=== PATIENT | male | born 1960 | race Caucasian/White ===

== ENCOUNTER → 2016-09-15 | Outpatient (CLI) | payer MEDICARE ==
[~2016-09-15] MED LIST: ALDA50TA2 PO; AMLO10TA2 PO; AMLO5TAB2 PO; AMLO5TAB96 PO; ASPI325T PO; B12-1CHW CHEW; BACL20TA PO; BUSP10 PO; BUSP10TA PO; CEFT500T3 PO; EPIN1INJ21 IV PUSH; EPIN1INJ21 SQ; FERR325T PO; FURO1TAB60 PO; FURO20TA PO; FURO40TA PO; HYDR-3516 PO; HYDR-3583 PO; HYDR10TA16 PO; IBUP-232 PO; INVA1INJ IV; ISOS1TAB PO; ISOS5TAB PO; LACT10SO PO; LACTCHW3 CHEW; LYRI200C PO; LYRI75CA PO; MAGICADU2 SWISH-SWAL; METF500 PO; NORC5TAB PO; PANT40TA3 PO; PENI500T PO; PREG300 PO; PROP10TA6 PO; PROP20TA3 PO; SOLU250I IV PUSH; SPIR100T PO; SPIR25TA PO; Spironolactone PO; TAMS5CAP PO; TUMS500C CHEW; XANA1TAB PO; XIFA550T4 PO
[2016-09-15 12:54] LABS: PROTHROMBIN TIME - PATIENT 11.6 SEC (9.8-11.6)
[2016-09-15 13:46] LABS: ALKALINE PHOSPHATASE 77 U/L (45-117); ALT (GPT) 59 U/L (12-78); ANION GAP 7 MEQ/L (5-15); AST (GOT) 74 U/L (15-37); BICARBONATE 23.6 MEQ/L (21.0-32.0); BLOOD UREA NITROGEN 17 MG/DL (7-18); CHLORIDE 106 MEQ/L (98-107); GLOMERULAR FILTRATION RATE 90 ML/MIN (>89); GLUCOSE,FASTING 103 MG/DL (74-99); LDL CHOLESTEROL 64 MG/DL (0-99); POTASSIUM 3.9 MEQ/L (3.5-5.1); SODIUM (NA) 137 MEQ/L (136-145); TOTAL BILIRUBIN ADULT 0.8 MG/DL (0.2-1.0)
[2016-09-15 16:31] LABS: HEMOGLOBIN A1a 1.5 %; HEMOGLOBIN A1b 1.7 %; HEMOGLOBIN Ao 84.4 %; HEMOGLOBIN LA1C 2.5 %; HEMOGLOBIN P3 3.7 %
[2016-09-15 18:01] LABS: HEMATOCRIT 22.9 % (39.0-51.0); MEAN CELL VOLUME 81.9 FL (80.0-100.0); MEAN CORPUSCULAR HEMOGLOBIN 25.4 PG (27.0-34.0); PLATELET COUNT 101 TH/MM3 (150-450); RED BLOOD COUNT 2.79 MIL/MM3 (4.50-5.90); RED CELL DISTRIBUTION WIDTH 18.1 % (11.6-17.2); REVIEW FLAG FINAL; WHITE BLOOD COUNT 3.1 TH/MM3 (4.0-11.0)
[2016-09-17 09:55] LABS: HCV RNA PCR LOGIU/ML 5.99 (())
== END ==
LOC: ELAB 11:00
PROVIDERS: ATTEND Internal Medicine
DX: N42.9 Disorder of prostate, unspecified (principal); E11.9 Type 2 diabetes mellitus without complications; E55.9 Vitamin D deficiency, unspecified; R53.83 Other fatigue; B19.20 Unspecified viral hepatitis C without hepatic coma; I10 Essential (primary) hypertension; D64.9 Anemia, unspecified; D52.9 Folate deficiency anemia, unspecified; N39.0 Urinary tract infection, site not specified; N30.90 Cystitis, unspecified without hematuria; E53.8 Deficiency of other specified B group vitamins; M05.79 Rheumatoid arthritis with rheumatoid factor of multiple sites without organ or systems involvement
CPT/HCPCS: 36415; 80053; 80061; 82306; 82607; 82746; 83036; 84153; 84443; 85027; 85610; 87522

== ENCOUNTER 2016-09-17 02:35 | Inpatient (IN) | payer MEDICARE ==
[2016-09-17] VITALS (19 sets, daily range): BP systolic 93–136; BP diastolic 56–76; PULSE 66–131; RESP 11–30; TEMP 97.8–99.8; O2SAT 87–99
[~2016-09-17] VITALS: Ht 177.8 cm; Wt 87.7 kg
[~2016-09-17 02:35] MED LIST changes: -ALDA50TA2 PO; -AMLO10TA2 PO; -AMLO5TAB2 PO; -B12-1CHW CHEW; -BUSP10TA PO; -CEFT500T3 PO; -EPIN1INJ21 IV PUSH; -EPIN1INJ21 SQ; -FERR325T PO; -FURO1TAB60 PO; -FURO20TA PO; -FURO40TA PO; -HYDR-3516 PO; -HYDR-3583 PO; -INVA1INJ IV; -ISOS1TAB PO; -ISOS5TAB PO; -LACT10SO PO; -LACTCHW3 CHEW; -LYRI75CA PO; -NORC5TAB PO; -PANT40TA3 PO; -PENI500T PO; -PREG300 PO; -PROP10TA6 PO; -PROP20TA3 PO; -SOLU250I IV PUSH; -SPIR100T PO; -SPIR25TA PO; -Spironolactone PO; -TAMS5CAP PO; -TUMS500C CHEW; -XIFA550T4 PO
--- NOTE | 2016-09-17 02:51 | PD ---
HPI Chief Complaint: Abdominal Pain Time Seen by Provider: 02:38 Travel History International Travel<30 days: No Contact w/Intl Traveler<30days: No Traveled to known affect area: No History of Present Illness HPI The patient is a 56-year-old male presents emergency department via EMS for abdominal pain and shortness of breath. The patient states he had an outpatient ultrasound performed at radiology [facility], at [place], 2 days ago. The patient received a call from his primary physician, Dr. Huerta, and was advised to go to the emergency department. The patient states he went to [facility] emergency department and was subsequently admitted. However , the patient states he signed out AGAINST MEDICAL ADVICE and went home to eat lunch. He returns for progressing symptoms including shortness of breath and abdominal pain. The patient states he does have a history of hepatitis C a remote alcohol use, but does not currently drink alcohol or smoke. The patient states his abdomen feels distended and swollen secondary to fluid on the abdomen. He also complains of mild shortness of breath, but denies any known history of COPD or CHF. Symptoms are moderate, no known alleviating or exacerbating factors. He denies any acute chest pain or cough. PFSH Past Medical History Hx Anticoagulant Therapy: Yes (ASA) Anxiety: No Depression: No Cancer: No Cardiovascular Problems: Yes (HTN) High Cholesterol: Yes Diabetes: Yes Diminished Hearing: No Endocrine: Yes Gastrointestinal Disorders: No Hepatitis: No Hiatal Hernia: No Hypertension: Yes Immune Disorder: No Neurologic: Yes (DIABETIC NEUROPATHY) Psychiatric: No Respiratory: No Immunizations Current: Yes Thyroid Disease: No Past Surgical History Abdominal Surgery: Yes (APPENDECTOMY) Appendectomy: Yes Body Medical Devices: PLATE IN RIGHT SHOULDER Pacemaker: No Tonsillectomy: Yes Other Surgery: Yes Social History Alcohol Use: Yes ("BEER OCCASIONALLY") Tobacco Use: Yes Substance Use: No Allergies-Medications (Allergen,Severity, Reaction): Coded Allergies: Neosporin (Verified Allergy, Mild, 09/17/16) Polysporin (Verified Allergy, Mild, RASH, 09/17/16) Reported Meds & Prescriptions Reported Meds & Active Scripts Active Reported Lyrica (Pregabalin) 300 Mg Cap 300 Mg PO TID Aspirin 325 Mg Tab 325 Mg PO DAILY Amlodipine (Amlodipine Besylate) 5 Mg Tab 5 Mg PO DAILY Buspirone (Buspirone HCl) 10 Mg Tab 10 Mg PO TID Baclofen 20 Mg Tab 20 Mg PO TID Penicillin V Potassium 500 Mg Tab 500 Mg PO Q6H Hydrocodone-Acetaminophen 10-325 mg Tab 1 Tab PO 5 TIMES A DAY PRN Review of Systems Except as stated in HPI: all other systems reviewed are Neg General / Constitutional: No: Fever Cardiovascular: No: Chest Pain or Discomfort Respiratory: Positive: Shortness of Breath, No: Cough Gastrointestinal: Positive: Abdominal Pain, Other (abdominal distention), No: Nausea, Vomiting, Diarrhea Musculoskeletal: Positive: Edema Hematologic/Lymphatic: Positive: Other (history of hepatitis C) Physical Exam Narrative GENERAL: Awake, alert, 56-year-old male who appears his stated age and is in mild respiratory distress. SKIN: Warm and dry. HEAD: Atraumatic. Normocephalic. EYES: Pupils equal and round. Mild pallor noted. ENT: No nasal bleeding or discharge. Slightly dry mucous membranes. NECK: Trachea midline. No JVD. CARDIOVASCULAR: Regular, tachycardic with a heart rate in the 130s.. RESPIRATORY: Mild tachypnea with decreased respirator breath sounds in the bases. Abdomen: Distended abdomen, minimal tenderness right upper quadrant. No rebound tenderness. MUSCULOSKELETAL: Bilateral lower extremity pitting edema. NEUROLOGICAL: Awake, slightly lethargic. Follows commands without difficulty. PSYCHIATRIC: Appropriate mood and affect; insight and judgment normal. Data Data Last Documented VS Vital Signs Date Time Temp Pulse Resp B/P Pulse Ox O2 Delivery O2 Flow Rate FiO2 09/17/16 05:00 90 15.00 100 09/17/16 04:42 121 22 136/71 CPAP 09/17/16 02:40 99.2 Orders Complete Blood Count With Diff (09/17/16 02:51) Comprehensive Metabolic Panel (09/17/16 02:51) B-Type Natriuretic Peptide (09/17/16 02:51) Act Partial Throm Time (Ptt) (09/17/16 02:51) Prothrombin Time / Inr (Pt) (09/17/16 02:51) Magnesium (Mg) (09/17/16 02:51) Ckmb (Isoenzyme) Profile (09/17/16 02:51) Troponin I (09/17/16 02:51) Urinalysis - C+S If Indicated (09/17/16 02:51) Blood Culture (09/17/16 02:51) Iv Access Insert/Monitor (09/17/16 02:51) Electrocardiogram (09/17/16 02:51) Ecg Monitoring (09/17/16 02:51) Oximetry (09/17/16 02:51) Oxygen Administration (09/17/16 02:51) Chest, Single Ap (09/17/16 02:51) Ct Pulmonary Angiogram (09/17/16 02:51) Sodium Chloride 0.9% Flush (Ns Flush) (09/17/16 03:00) Blood Gas Venous (Vbg) (09/17/16 02:51) Ct Abd/Pel W Iv Contrast(Rout) (09/17/16 ) Sodium Chlorid 0.9% 500 Ml Inj (Ns 500 M (09/17/16 03:15) CKMB (09/17/16 02:55) CKMB% (09/17/16 02:55) Cefepime Inj (Maxipime Inj) (09/17/16 04:00) Azithromycin Inj (Zithromax Inj) (09/17/16 04:00) Lactic Acid (09/17/16 04:35) Arterial Blood Gas (Abg) (09/18/16 06:00) Diet Npo (09/17/16 Breakfast) ^ Elevate Head Of Bed (09/17/16 04:49) Activity Bed Rest (09/17/16 04:49) Resp Bipap / Cpap Non Invas Vt (09/17/16 ) Albuterol-Ipratropium Neb (Duoneb Neb) (09/17/16 05:00) Albuterol-Ipratropium Neb (Duoneb Neb) (09/17/16 08:00) Chest, Single Ap (09/18/16 06:00) Resp Incentive Spirometry (09/17/16 04:49) Resp Acapella/Pep/Chest Vibra (09/17/16 04:49) Resp Ezpap/Pep Therapy (09/17/16 04:49) Cbc No Diff, Includes Plts (09/18/16 06:00) Cbc No Diff, Includes Plts (09/19/16 06:00) Cbc No Diff, Includes Plts (09/20/16 06:00) Cbc No Diff, Includes Plts (09/21/16 06:00) Cbc No Diff, Includes Plts (09/22/16 06:00) Cbc No Diff, Includes Plts (09/23/16 06:00) Cbc No Diff, Includes Plts (09/24/16 06:00) Basic Metabolic Panel (Bmp) (09/18/16 06:00) Basic Metabolic Panel (Bmp) (09/19/16 06:00) Basic Metabolic Panel (Bmp) (09/20/16 06:00) Basic Metabolic Panel (Bmp) (09/21/16 06:00) Basic Metabolic Panel (Bmp) (09/22/16 06:00) Basic Metabolic Panel (Bmp) (09/23/16 06:00) Basic Metabolic Panel (Bmp) (09/24/16 06:00) Magnesium Oxide (Mag-Ox) (09/17/16 05:00) Magnesium Sulfate Inj (Magnesium Sulfate (09/17/16 05:00) Magnesium Sulfate Inj (Magnesium Sulfate (09/17/16 05:00) Potassium Chlor 20 Meq Premix (Kcl 20 Me (09/17/16 05:00) Potassium Chlor 20 Meq Premix (Kcl 20 Me (09/17/16 05:00) Potassium Chlor 40 Meq Premix (Kcl 40 Me (09/17/16 05:00) Potassium Chlor 40 Meq Premix (Kcl 40 Me (09/17/16 05:00) Potassium Cl 40 Meq/30 Ml Liq (Kcl 40 Me (09/17/16 05:00) Potassium Cl 40 Meq/30 Ml Liq (Kcl 40 Me (09/17/16 05:00) Potassium Phosphate (K-Phos) (09/17/16 05:00) Potassium Phosphate (K-Phos) (09/17/16 05:00) Potassium Phosphate Inj (Potassium Phosp (09/17/16 05:00) Sodium Phosphate Inj (Sodium Phosphate I (09/17/16 05:00) ^ Medication Admin Instruction (09/17/16 04:49) ^ Notify Dr: Other (09/17/16 04:49) Inpatient Certification (09/17/16 04:49) Bedside Glucose RONALD.Q6H (09/17/16 04:49) ^ Blood Glucose Goal (Criteria (09/17/16 04:49) ^ Hypoglycemia 51 - 69 Mg/Dl (09/17/16 04:49) ^ Hypoglycemia 50 Mg/Dl Or < (09/17/16 04:49) ^ Notify Dr: Other (09/17/16 04:49) Dextrose 50% In Laya (Vial) Inj (D50w (Vi (09/17/16 05:00) Insulin Human Reg Supp Scale (Novolin R (09/17/16 06:00) Chest, Single Ap (09/18/16 06:00) Code Status (09/17/16 04:49) Vital Signs (Adult) RONALD.Q1H (09/17/16 04:49) Neuro Checks . ORDERED (09/17/16 04:49) Sodium Chloride 0.9% Flush (Ns Flush) (09/17/16 05:00) Sodium Chloride 0.9% Flush (Ns Flush) (09/17/16 09:00) Pantoprazole Inj (Protonix Inj) (09/17/16 09:00) Ondansetron Inj (Zofran Inj) (09/17/16 05:00) Docusate Sodium-Senna (Sarahi-Colace) (09/17/16 09:00) Scd Bilateral/Knee High RONALD.BID (09/17/16 04:49) ^ Initiate Protocol (09/17/16 04:49) ^ Instruction (09/17/16 04:49) [facility] Nursing Information (09/17/16 05:00) Chlorhexidine 2% Cloth (Chlorhexidine 2% (09/18/16 04:00) Chlorhexidine 2% Cloth (Chlorhexidine 2% (09/17/16 05:00) Mrsa Pcr Surveillance (09/17/16 04:49) Cefepime Inj (Maxipime Inj) (09/17/16 13:00) Azithromycin Inj (Zithromax Inj) (09/18/16 05:00) Consult Gastroenterology (09/17/16 ) Echo 2d Comp W/Dopp(Routine) (09/17/16 ) (Hub Use Only)Inp Phy Cons/Ref (09/17/16 ) Admit Order (Ed Use Only) (09/17/16 04:48) Labs Laboratory Tests Test 09/17/16 09/17/16 09/17/16 02:55 03:10 04:30 White Blood Count 7.6 TH/MM3 Red Blood Count 3.25 MIL/MM3 Hemoglobin 8.4 GM/DL Hematocrit 26.9 % Mean Corpuscular Volume 82.8 FL Mean Corpuscular Hemoglobin 26.0 PG Mean Corpuscular Hemoglobin 31.4 % Concent Red Cell Distribution Width 17.8 % Platelet Count 176 TH/MM3 Mean Platelet Volume 9.4 FL Neutrophils (%) (Auto) 71.1 % Lymphocytes (%) (Auto) 17.3 % Monocytes (%) (Auto) 9.6 % Eosinophils (%) (Auto) 1.1 % Basophils (%) (Auto) 0.9 % Neutrophils # (Auto) 5.4 TH/MM3 Lymphocytes # (Auto) 1.3 TH/MM3 Monocytes # (Auto) 0.7 TH/MM3 Eosinophils # (Auto) 0.1 TH/MM3 Basophils # (Auto) 0.1 TH/MM3 CBC Comment DIFF FINAL Differential Comment Prothrombin Time 11.8 SEC Prothromb Time International 1.1 RATIO Ratio Activated Partial 22.2 SEC Thromboplast Time Sodium Level 139 MEQ/L Potassium Level 4.0 MEQ/L Chloride Level 104 MEQ/L Carbon Dioxide Level 23.1 MEQ/L Anion Gap 12 MEQ/L Blood Urea Nitrogen 17 MG/DL Creatinine 1.10 MG/DL Estimat Glomerular Filtration 69 ML/MIN Rate Random Glucose 165 MG/DL Calcium Level 7.9 MG/DL Magnesium Level 1.7 MG/DL Total Bilirubin 0.8 MG/DL Aspartate Amino Transf 62 U/L (AST/SGOT) Alanine Aminotransferase 51 U/L (ALT/SGPT) Alkaline Phosphatase 78 U/L Total Creatine Kinase 147 U/L Creatine Kinase MB 4.1 NG/ML Troponin I 0.05 NG/ML B-Type Natriuretic Peptide 336 PG/ML Total Protein 6.5 GM/DL Albumin 2.7 GM/DL Blood Gas Puncture Site IV LINE Blood Gas Patient Temperature 98.6 Venous Blood pH 7.28 Venous Blood Partial Pressure 47 mmHg CO2 Venous Blood Partial Pressure 31 mmHg O2 Venous Blood HCO3 21 mmol/L Venous Blood Oxygen Saturation 50 % Venous Blood Oxygen Content 6.0 Vol % Venous Blood Base Excess -4.4 mmol/L Oxygen Delivery Device NRB Blood Gas Liter Flow 15 L/M Blood Gas Inspired Oxygen 100 % Lactic Acid Level 4.6 mmol/L MDM Medical Decision Making Medical Screen Exam Complete: Yes Emergency Medical Condition: Yes Medical Record Reviewed: Yes Interpretation(s) Ultrasound the abdomen reveals cirrhotic liver with thrombosis of the main portal vein. Large amount of abdominal ascites. Splenomegaly. Ultrasound was performed September 15, 2016 at radiology [facility] imaging. EKG reveals ST depressions in lead V4, V5, and V6. Laboratory Tests Test 09/17/16 09/17/16 02:55 03:10 White Blood Count 7.6 TH/MM3 Red Blood Count 3.25 MIL/MM3 Hemoglobin 8.4 GM/DL Hematocrit 26.9 % Mean Corpuscular Volume 82.8 FL Mean Corpuscular Hemoglobin 26.0 PG Mean Corpuscular Hemoglobin 31.4 % Concent Red Cell Distribution Width 17.8 % Platelet Count 176 TH/MM3 Mean Platelet Volume 9.4 FL Neutrophils (%) (Auto) 71.1 % Lymphocytes (%) (Auto) 17.3 % Monocytes (%) (Auto) 9.6 % Eosinophils (%) (Auto) 1.1 % Basophils (%) (Auto) 0.9 % Neutrophils # (Auto) 5.4 TH/MM3 Lymphocytes # (Auto) 1.3 TH/MM3 Monocytes # (Auto) 0.7 TH/MM3 Eosinophils # (Auto) 0.1 TH/MM3 Basophils # (Auto) 0.1 TH/MM3 CBC Comment DIFF FINAL Differential Comment Prothrombin Time 11.8 SEC Prothromb Time International 1.1 RATIO Ratio Activated Partial 22.2 SEC Thromboplast Time Sodium Level 139 MEQ/L Potassium Level 4.0 MEQ/L Chloride Level 104 MEQ/L Carbon Dioxide Level 23.1 MEQ/L Anion Gap 12 MEQ/L Blood Urea Nitrogen 17 MG/DL Creatinine 1.10 MG/DL Estimat Glomerular Filtration 69 ML/MIN Rate Random Glucose 165 MG/DL Calcium Level 7.9 MG/DL Magnesium Level 1.7 MG/DL Total Bilirubin 0.8 MG/DL Aspartate Amino Transf 62 U/L (AST/SGOT) Alanine Aminotransferase 51 U/L (ALT/SGPT) Alkaline Phosphatase 78 U/L Total Creatine Kinase 147 U/L Creatine Kinase MB 4.1 NG/ML Troponin I 0.05 NG/ML B-Type Natriuretic Peptide 336 PG/ML Total Protein 6.5 GM/DL Albumin 2.7 GM/DL Blood Gas Puncture Site IV LINE Blood Gas Patient Temperature 98.6 Venous Blood pH 7.28 Venous Blood Partial Pressure 47 mmHg CO2 Venous Blood Partial Pressure 31 mmHg O2 Venous Blood HCO3 21 mmol/L Venous Blood Oxygen Saturation 50 % Venous Blood Oxygen Content 6.0 Vol % Venous Blood Base Excess -4.4 mmol/L Oxygen Delivery Device NRB Blood Gas Liter Flow 15 L/M Blood Gas Inspired Oxygen 100 % CT pulmonary angiogram reveals no evidence of pulmonary embolism. Patchy bilateral airspace disease in moderate dependent posterior atelectasis or edema. Differential Diagnosis Differential diagnosis includes pulmonary embolism, congestive heart failure, pleural effusion, portal vein thrombosis, ascites, acute liver failure, acute renal failure. Narrative Course IV was established, labs are drawn and sent, and the patient was placed on cardiac telemetry monitoring and continuous pulse oximetry monitoring. The patient was hypoxic with an oxygen saturation in the 70s, it is placed on nasal cannula, however, only came up to 80%, therefore, was placed on a nonrebreather. VBG was ordered. I reviewed the patient's ultrasound he had performed an outpatient basis on the which revealed portal vein thrombosis. However, patient is currently tachycardic and hypoxic, therefore, CT pulmonary angiogram and CT the abdomen and pelvis were ordered. Blood culture and lactic acid were sent to lab. The patient's x-ray reveals a right lobe pneumonia, the patient's oxygen saturation was 84% on nonrebreather. Therefore, patient was placed on BiPAP. CT was negative for pulmonary embolism. I discussed the patient with the on-call center lead consultant, Dr. Stinson, who agrees with admission. The patient was placed on BiPAP, oxygen saturations improved to 100% at 70% oxygen. Patient [place] be [place] [facility] Patient most likely will benefit from therapeutic and diagnostic paracentesis to help alleviate his abdominal discomfort until out for proper expansion of the diaphragm and lungs. Physician Communication Physician Communication I discussed the patient with Dr. Stinson who agrees with admission. Diagnosis Primary Impression: Hypoxia Additional Impressions: Pneumonia Qualified Code: J18.9 - Pneumonia of both lungs due to infectious organism, unspecified part of lung Portal vein thrombosis Condition: Stable Lars Morales MD Sep 17, 2016 02:51
[2016-09-17] MEDS ORDERED: ASPI325T PO (02:58)
[2016-09-17] MEDS ORDERED: AMLO5TAB2 PO (02:58)
[2016-09-17] MEDS ORDERED: HYDR-3583 PO (02:58)
[2016-09-17] MEDS ORDERED: BUSP10TA PO (02:58)
[2016-09-17] MEDS ORDERED: PENI500T PO (02:58)
[2016-09-17] MEDS ORDERED: BACL20TA PO (02:58)
[2016-09-17] MEDS ORDERED: PREG300 PO (02:58)
[2016-09-17] MEDS ORDERED: SODIUM CHLORIDE 0.9% FLUSH 5 ML FLUSH IVF PRN (03:00)
[2016-09-17 03:10] LABS: AUTOMATED NEUTROPHIL # 5.4 TH/MM3 (1.8-7.7); BASOPHIL # 0.1 TH/MM3 (0-0.2); BASOPHIL % 0.9 % (0.0-2.0); EOSINOPHIL # 0.1 TH/MM3 (0-0.4); EOSINOPHIL % 1.1 % (0.0-4.0); HEMATOCRIT 26.9 % (39.0-51.0); HEMO FLAGS DIFF FINAL; LYMPH % 17.3 % (9.0-44.0); LYMPHOCYTE # 1.3 TH/MM3 (1.0-4.8); MEAN CELL VOLUME 82.8 FL (80.0-100.0); MEAN CORPUSCULAR HGB CONC 31.4 % (32.0-36.0); MONO % 9.6 % (0.0-8.0); NEUT % 71.1 % (16.0-70.0); PLATELET COUNT 176 TH/MM3 (150-450); RED BLOOD COUNT 3.25 MIL/MM3 (4.50-5.90); RED CELL DISTRIBUTION WIDTH 17.8 % (11.6-17.2); WHITE BLOOD COUNT 7.6 TH/MM3 (4.0-11.0)
[2016-09-17] MEDS ORDERED: SODIUM CHLORID 0.9% 500 ML INJ 500 ML IV ONE (03:15)
[2016-09-17 03:18] LABS: BLOOD GAS VENOUS BASE EXCESS -4.4 mmol/L (-2-2); BLOOD GAS VENOUS HCO3 21 mmol/L (22-26); BLOOD GAS VENOUS O2 HGB SAT 50 % (70-76); BLOOD GAS VENOUS PCO2 47 mmHg (44-48); BLOOD GAS VENOUS PO2 31 mmHg (35-40); BLOOD GAS VENOUS pH 7.28 (7.360-7.400); CRITICAL VALUE YES; OXYGEN DEVICE NRB; TEMP CORR TO 98.6
[2016-09-17 03:19] LABS: APTT (PATIENT) 22.2 SEC (24.3-30.1); INTERNATIONAL NORMALIZED RATIO 1.1 RATIO; PROTHROMBIN TIME - PATIENT 11.8 SEC (9.8-11.6)
[2016-09-17 03:19] LABS: DRAW SITE IV LINE; FIO2 100 %; LITER FLOW 15 L/M; STAT YES
--- NOTE | 2016-09-17 03:43 | RADRPT ---
EXAM DATE/TIME: 09/17/2016 03:10 [place] COMPARISON: CHEST SINGLE AP, June 17, 2010, 14:23. INDICATIONS : Shortness of breath. MEDICAL HISTORY : None. SURGICAL HISTORY : None. ENCOUNTER: Initial ACUITY: 1 day PAIN SCORE: 0/10 LOCATION: Bilateral chest FINDINGS: There is bilateral diffuse, primarily perihilar parenchymal opacity somewhat worse on the right than the left. Cardiomediastinal contours are satisfactory. There has been plate and screw fixation of a r ight clavicle fracture. CONCLUSION: Diffuse bilateral parenchymal opacities Raúl Cortez MD on September 17, 2016 at 3:40 Board Certified Radiologist. This report was verified electronically.
[2016-09-17 03:46] LABS: ALT (GPT) 51 U/L (12-78); ANION GAP 12 MEQ/L (5-15); AST (GOT) 62 U/L (15-37); BICARBONATE 23.1 MEQ/L (21.0-32.0); BLOOD UREA NITROGEN 17 MG/DL (7-18); CHLORIDE 104 MEQ/L (98-107); GLOMERULAR FILTRATION RATE 69 ML/MIN (>89); MAGNESIUM 1.7 MG/DL (1.5-2.5); SODIUM (NA) 139 MEQ/L (136-145)
[2016-09-17 03:50] LABS: ALKALINE PHOSPHATASE 78 U/L (45-117); CREATINE KINASE 147 U/L (39-308); TOTAL BILIRUBIN ADULT 0.8 MG/DL (0.2-1.0)
[2016-09-17] MEDS ORDERED: CEFEPIME INJ 2,000 MG in SODIUM CHLORIDE 0.9% INJ 100 ML IV ONE (04:00)
[2016-09-17] MEDS ORDERED: AZITHROMYCIN INJ 500 MG in SODIUM CHLOR 0.9% 250 ML INJ 250 ML IV ONE (04:00)
[2016-09-17 04:03] LABS: CKMB 4.1 NG/ML (0.5-3.6)
[2016-09-17] MEDS ORDERED: CHLORHEXIDINE GLUCONATE 2 % 1 PACK (2 CLOTHS) TOP PRN (05:00)
[2016-09-17] MEDS ORDERED: POTASSIUM PHOSPHATE MONOBASIC 500 MG TAB PO PRN (05:00)
[2016-09-17] MEDS ORDERED: MAGNESIUM OXIDE 400 MG TAB PO PRN (05:00)
[2016-09-17] MEDS ORDERED: POTASSIUM PHOSPHATE INJ 30 MMOL in SODIUM CHLOR 0.9% 250 ML INJ 250 ML IV PRN (05:00)
[2016-09-17] MEDS ORDERED: ONDANSETRON HCL 4 MG/2 ML VIAL IV PRN (05:00)
[2016-09-17] MEDS ORDERED: POTASSIUM CHLOR 20 MEQ PREMIX 100 ML IV PRN ×2 (05:00)
[2016-09-17] MEDS ORDERED: MISCELLANEOUS NURSING INFORMATION XX SCH (05:00)
[2016-09-17] MEDS ORDERED: SODIUM CHLORIDE 0.9% FLUSH 5 ML FLUSH IV FLUSH PRN (05:00)
[2016-09-17] MEDS ORDERED: SODIUM PHOSPHATE INJ 30 MMOL in SODIUM CHLOR 0.9% 250 ML INJ 240 ML IV PRN (05:00)
[2016-09-17] MEDS ORDERED: RESP: ALBUTEROL 2.5 MG/IPRATROPIUM 0.5 MG NEB (PRN) INH (05:00)
[2016-09-17] MEDS ORDERED: DEXTROSE 50% IN WATER 50 ML VIAL(D50) IV PUSH PRN (05:00)
[2016-09-17] MEDS ORDERED: POTASSIUM CL 40 MEQ/30 ML LIQ UDC PO/TUBE PRN ×2 (05:00)
[2016-09-17] MEDS ORDERED: MAGNESIUM SULFATE INJ 4 GM in SODIUM CHLORIDE 0.9% INJ 92 ML IV PRN (05:00)
[2016-09-17] MEDS ORDERED: MAGNESIUM SULFATE INJ 2 GM in SODIUM CHLORIDE 0.9% INJ 96 ML IV PRN (05:00)
[2016-09-17] MEDS ORDERED: POTASSIUM PHOSPHATE MONOBASIC 500 MG TAB PO/TUBE PRN (05:00)
[2016-09-17] MEDS ORDERED: POTASSIUM CHLOR 40 MEQ PREMIX 100 ML IV PRN ×2 (05:00)
--- NOTE | 2016-09-17 05:10 | HHI.HP ---
[facility] Service Critical Care Medicine Primary Care Physician Long Huerta, DO Admission Diagnosis Diagnosis: Chief Complaint: shortness of breath Travel History International Travel<30 Days: No Contact w/Intl Traveler <30 Da: No Traveled to Known Affected Are: No History of Present Illness This is a 56-year-old male who has a history of cirrhosis and is followed by Dr. Huerta who has been having a few weeks of chronic abdominal pain and was sent for outpatient abdominal ultrasound which reportedly demonstrated a new portal vein thrombosis. His physician called him and stated that he needed to go to the hospital to be evaluated. He initially went to the [facility] emergency department and was admitted, however he then signed out AMA and went home the lunch. After lunch he had progressive shortness of breath and abdominal pain but did not want to go back to [facility], so he came to [facility] for evaluation. The hypopharynx was noted to be severely hypoxic on room air with's SPO2 in the 70s. He was placed on BiPAP. He had some improvement with this. His labs are notable for a white blood cell count 7 , hemoglobin of 8.4, platelet count 176 creatinine of 1.1, BNP of 336, lactate of 4.6 with a normal serum bicarbonate of 23.1. Critical-care medicine was consulted to evaluate and manage his acute hypoxic Review of Systems ROS Limitations: Clinical Condition (dyspnea) Past Family Social History Allergies: Coded Allergies: Neosporin (Verified Allergy, Mild, 09/17/16) Polysporin (Verified Allergy, Mild, RASH, 09/17/16) Past Medical History A complete past medical history is unable to be obtained secondary to the patient's dyspnea. Per chart review: Hypertension Cirrhosis Hyperlipidemia Diabetes Diabetic neuropathy Past Surgical History Complete past surgical history is unobtainable due to the patient's dyspnea. Per chart review: Appendectomy Plates and right shoulder Tonsillectomy Reported Medications A complete home medication list is unobtainable from patient due to his dyspnea. Chart review: Lyrica (Pregabalin) 300 Mg Cap 300 Mg PO TID Aspirin 325 Mg Tab 325 Mg PO DAILY Amlodipine (Amlodipine Besylate) 5 Mg Tab 5 Mg PO DAILY Buspirone (Buspirone HCl) 10 Mg Tab 10 Mg PO TID Baclofen 20 Mg Tab 20 Mg PO TID Penicillin V Potassium 500 Mg Tab 500 Mg PO Q6H Hydrocodone-Acetaminophen 10-325 mg Tab 1 Tab PO 5 TIMES A DAY PRN Active Ordered Medications See MAR Family History Unable to obtain a complete family history due to the patient's dyspnea. Unlikely to be contributory to his acute illness Social History Unable to obtain a complete social history due to the patient's dyspnea. Chart review: Positive for tobacco. Positive for prior alcohol use. Physical Exam Vital Signs Vital Signs Date Time Temp Pulse Resp B/P Pulse Ox O2 Delivery O2 Flow Rate FiO2 09/17/16 04:42 121 22 136/71 99 CPAP 09/17/16 04:15 97 100 09/17/16 03:10 120 30 136/63 95 Non-Rebreather 09/17/16 02:50 92 Non-Rebreather 15 09/17/16 02:40 99.2 131 22 132/64 87 Physical Exam GENERAL: Middle-aged male, lying in bed, in moderate distress due to dyspnea HEENT: Pupils equal, round, reactive. Mucous membranes are moist. NECK: Trachea is midline. BiPAP in place. No JVD. CHEST: Tachypneic. Mildly labored. Equal chest rise. Clear to auscultation anteriorly. CARDIOVASCULAR: Normal rate, regular rhythm. No appreciable murmurs. ABDOMEN: Protuberant, soft, nontender, nondistended. Positive fluid wave. No guarding. MUSCULOSKELETAL: Distal pulses 2+. No peripheral edema. NEUROLOGICAL: RASS -1. Follows commands in all 4 extremities. Somnolent but arousable. Laboratory Laboratory Tests Test 09/17/16 09/17/16 02:55 03:10 White Blood Count 7.6 Red Blood Count 3.25 Hemoglobin 8.4 Hematocrit 26.9 Mean Corpuscular Volume 82.8 Mean Corpuscular Hemoglobin 26.0 Mean Corpuscular Hemoglobin 31.4 Concent Red Cell Distribution Width 17.8 Platelet Count 176 Mean Platelet Volume 9.4 Neutrophils (%) (Auto) 71.1 Lymphocytes (%) (Auto) 17.3 Monocytes (%) (Auto) 9.6 Eosinophils (%) (Auto) 1.1 Basophils (%) (Auto) 0.9 Neutrophils # (Auto) 5.4 Lymphocytes # (Auto) 1.3 Monocytes # (Auto) 0.7 Eosinophils # (Auto) 0.1 Basophils # (Auto) 0.1 CBC Comment DIFF FINAL Differential Comment Prothrombin Time 11.8 Prothromb Time International 1.1 Ratio Activated Partial 22.2 Thromboplast Time Sodium Level 139 Potassium Level 4.0 Chloride Level 104 Carbon Dioxide Level 23.1 Anion Gap 12 Blood Urea Nitrogen 17 Creatinine 1.10 Estimat Glomerular Filtration 69 Rate Random Glucose 165 Calcium Level 7.9 Magnesium Level 1.7 Total Bilirubin 0.8 Aspartate Amino Transf 62 (AST/SGOT) Alanine Aminotransferase 51 (ALT/SGPT) Alkaline Phosphatase 78 Total Creatine Kinase 147 Creatine Kinase MB 4.1 Troponin I 0.05 B-Type Natriuretic Peptide 336 Total Protein 6.5 Albumin 2.7 Blood Gas Puncture Site IV LINE Blood Gas Patient Temperature 98.6 Venous Blood pH 7.28 Venous Blood Partial Pressure 47 CO2 Venous Blood Partial Pressure 31 O2 Venous Blood HCO3 21 Venous Blood Oxygen Saturation 50 Venous Blood Oxygen Content 6.0 Venous Blood Base Excess -4.4 Oxygen Delivery Device NRB Blood Gas Liter Flow 15 Blood Gas Inspired Oxygen 100 Date/Time Procedure Status Source Growth 09/17/16 02:55 Aerobic Blood Culture Received Blood Peripheral Pending 09/17/16 02:55 Anaerobic Blood Culture Received Blood Peripheral Pending Result Diagram: 09/17/16 0255 09/17/16 0255 Assessment and Plan Assessment and Plan Assessment: This is a 56yM with history of etoh cirrhosis who was initially sent to the emergency department for concern of a newly diagnosed portal vein thrombosis but was found to be acutely hypoxic. Differential diagnosis for the hypoxia would be PE vs. community acquired pneumonia vs. CHF vs. hepatopulmonary syndrome. We will obtain CT pulmonary angiogram, 2d echo with bubble study, cultures, cover empirically with antibiotics. I think his lactic acidosis is a Type B from poor hepatic clearance and does not represent tissue hypoperfusion. From a hypoxia standpoint, we will continue BiPAP. We will consult gastroenterology. I've anticoagulated him for his portal vein thrombus. If he is at all transplant candidate, we need to expedite his transplant workup. For now he remains critically ill with multiple organ systems which are currently a threat to life. Active problems: Portal vein thrombosis Acute hypoxic respiratory failure Acute Intravascular volume overload Plan: Admit to the ICU Lovenox 1.5 mg/kg IV every 24 hours for therapeutic anticoagulation for his portal vein thrombus. Continue BiPAP Continue nothing by mouth for now GI consult Follow-up 2-D echocardiogram with delayed bubble study Lasix 40 mg IV 1 Continue cefepime and azithromycin Follow-up cultures. May need diagnostic peritoneal tap at some point. This patient remains critically ill with one or more organ systems which are or may become a threat to life. I have spent in excess of 48 minutes discontinuously in the care and management of this patient. This time is exclusive of procedures, and includes, but is not limited to, evaluation of the patient, review of the medical record, discussions with family, consultants, nursing staff, or respiratory therapy, and documentation in the medical record. Code Status Full Code Martin Stinson MD Sep 17, 2016 05:10
[2016-09-17] MEDS: METFORMIN HOLD POST IV CONTRAST XX SCH (05:14)
[2016-09-17] MEDS ORDERED: IOHEXOL 350 MG/ML 10 ML VIAL (for RAD DIAG) IV ONE (05:30)
[2016-09-17] MEDS ORDERED: FUROSEMIDE 40 MG/4 ML VIAL IV PUSH ONE (05:45)
[2016-09-17] MEDS: INSULIN NovoLIN REGULAR SUPPLEMENTAL SCALE SQ SCH ×4 (06:00→21:00)
[2016-09-17 06:05] LABS: BLOOD GAS BASE EXCESS -2.5 mmol/L (-2-2); BLOOD GAS CARBOXYHEMOGLOBIN 3.7 % (0-4); BLOOD GAS HCO3 22 mmol/L (22-26); BLOOD GAS METHEMOGLOBIN 2.2 % (0-2); BLOOD GAS O2 HGB SATURATION 90 % (90-100); BLOOD GAS OXYGEN CONTENT 9.8 Vol % (12.0-20.0); BLOOD GAS PCO2 40 mmHg (38-42); BLOOD GAS PO2 74 mmHG (61-120); BLOOD GAS TOTAL HGB 7.7 G/DL (12.0-16.0); TEMP CORR TO 98.6
--- NOTE | 2016-09-17 06:05 | RADRPT ---
EXAM DATE/TIME: 09/17/2016 05:06 [facility] COMPARISON: CHEST SINGLE AP, September 17, 2016, 3:10. INDICATIONS : Short of breath and abdominal pain. IV CONTRAST: 98 cc Omnipaque 350 (iohexol) IV ; Cumulative dose for multiple exams. RADIATION DOSE: 12.0 CTDIvol (mGy) MEDICAL HISTORY : Hypertension. Hypercholesterolemia. Hepatitis C.DIABETES SURGICAL HISTORY : Appendectomy. right clavicle surgery ENCOUNTER: Initial ACUITY: 1 day PAIN SCALE: 8/10 LOCATION: chest TECHNIQUE: Volumetric scanning of the chest was performed using a pulmonary embolism protocol MIP images were re constructed. Using automated exposure control and adjustment of the mA and/or kV according to patien t size, radiation dose was kept as low as reasonably achievable to obtain optimal diagnostic quality images. FINDINGS: PULMONARY ARTERIES: No filling defects are seen in the pulmonary arteries through the segmental level. LUNGS: Patchy bilateral airspace disease and moderate dependent posterior atelectasis or edema. PLEURAE: Minimal effusion bilaterally. MEDIASTINUM: There is good visualization of the great vessels of the middle mediastinum. No evidence of mediastin al or hilar adenopathy/mass. MUSCULOSKELETAL: Within normal limits for patient age. MISCELLANEOUS: Cirrhotic liver appearance with ascites in the upper abdomen. CONCLUSION: No evidence of pulmonary embolism Raúl Cortez MD on September 17, 2016 at 6:01 Board Certified Radiologist. This report was verified electronically.
[2016-09-17 06:06] LABS: CRITICAL VALUE NO
[2016-09-17 06:08] LABS: DRAW SITE LT RADIAL; FIO2 70 %; NUMBER OF ARTERIAL PUNCTURES 1; OXYGEN DEVICE BiPAP; STAT NO; ULNAR PULSE PRESENT
[2016-09-17] MEDS: ENOXAPARIN SODIUM 120 MG/0.8 ML SYRINGE SQ SCH (06:16)
--- NOTE | 2016-09-17 06:29 | RADRPT ---
EXAM DATE/TIME: 09/17/2016 05:06 [facility] COMPARISON: No previous studies available for comparison. INDICATIONS : Short of breath and abdominal pain. IV CONTRAST: 98 cc Omnipaque 350 (iohexol) IV ; Cumulative dose for multiple exams. ORAL CONTRAST: No oral contrast ingested. RADIATION DOSE: 16.23 CTDIvol (mGy) MEDICAL HISTORY : Hepatitis C. Hypertension. Hypercholesterolemia.diabetes SURGICAL HISTORY : Appendectomy. right clavicle surgery ENCOUNTER: Initial ACUITY: 1 day PAIN SCALE: 8/10 LOCATION: abdomen TECHNIQUE: Volumetric scanning of the abdomen and pelvis was performed. Using automated exposure control and ad justment of the mA and/or kV according to patient size, radiation dose was kept as low as reasonably achievable to obtain optimal diagnostic quality images. FINDINGS: LOWER LUNGS: Infiltrates in the lung bases. Small effusions. LIVER: Really cirrhotic liver appearance without evidence of biliary ductal dilatation. Cavernous transforma tion of the portal vein. No calcified gallstones. SPLEEN: Enlarged without focal mass. PANCREAS: Within normal limits. KIDNEYS: Normal in size and shape. There is no mass, stone or hydronephrosis. ADRENAL GLANDS: Within normal limits. VASCULAR: There is no aortic aneurysm. BOWEL/MESENTERY: Bowel structures are nondilated. Moderate ascites. ABDOMINAL WALL: Within normal limits. RETROPERITONEUM: There is no lymphadenopathy. BLADDER: No wall thickening or mass. REPRODUCTIVE: Within normal limits. INGUINAL: There is no lymphadenopathy or hernia. MUSCULOSKELETAL: Within normal limits for patient age. CONCLUSION: Markedly cirrhotic liver appearance. Cavernous transformation of the portal vein. Moderate ascites. Raúl Cortez MD on September 17, 2016 at 6:23 Board Certified Radiologist. This report was verified electronically.
[2016-09-17] MEDS: RESP: ALBUTEROL 2.5 MG/IPRATROPIUM 0.5 MG NEB (SCH) INH ×4 (07:13→23:13)
--- NOTE | 2016-09-17 09:08 | PD.CONS ---
HPI History of Present Illness This is a 56 year old male with past medical history of HTN, DM, heavy alcohol intake up till 8 months ago, cirrhosis who has been having chronic abdominal pain since July but progressively worsening in severity and moving in location associated with noticeable abdominal swelling and weight gain. States, he used to do about 50 sit ups daily and he used to have abdominal muscles. Patient started having pain first around the appendectomy scar, then the pain started to move to right upper abdomen and started noticing swelling. He initially followed up with Dr. Huerta for the abdominal pain and was sent for outpatient abdominal ultrasound which reportedly demonstrated a new portal vein thrombosis and patient was instructed to go the ED for further evaluation. Patient initially went to the [facility] emergency department and was admitted, however he then signed out AMA. After lunch same day, he had progressive shortness of breath and abdominal pain, so he came to [facility] for evaluation. On admission, he was severely hypoxic on room air with 's SPO2 in the 70s. Critical-care medicine was consulted and was placed on Bipap. Labs on admission revealed white blood cell count 7, hemoglobin of 8.4, platelet count 176, lactic acid of 4.6. Currently patient is on non rebreather. He was told in the past that he has a hint of cirrhosis, not sure what work up if any was done, he initially was following with Dr. Jimenes, but was seen in our office in November of 2015 and had work up for hep-c and that came back negative. He had a colonoscopy in (12/23/15) ----> some stools, other ash normal. CT showed Markedly cirrhotic liver appearance. Cavernous transformation of the portal vein. Moderate ascites. CTA of the chest no PE. He repots constipation in the past few days, weight gain of about 16 ibs in the past month. He denies nausea, vomiting, hematemesis, hematochezia or melena. (Sofia Pritchard) PFSH Past Medical History THN DM Cirrhosis Hep-c tx naive,, labs came back undetected Past Surgical History Appendectomy rigth clavicular surgery right hand 5th digit fusion tonsillectomy left 5 ribs fx (Sofia Pritchard) Coded Allergies: Neosporin (Verified Allergy, Mild, 09/17/16) Polysporin (Verified Allergy, Mild, RASH, 09/17/16) Medications Current Medications Medications (Trade) Dose Ordered Sig/Jez Route Start Time Stop Time Status Last Admin Magnesium Oxide 800 mg 800 mg UNSCH PRN PO 09/17/16 05:00 Magnesium Sulfate 4 gm/Sodium Chloride 100 ml @ 50 mls/hr UNSCH PRN IV 09/17/16 05:00 Magnesium Sulfate 2 gm/Sodium Chloride 100 ml @ 50 mls/hr UNSCH PRN IV 09/17/16 05:00 Potassium Chloride 100 ml @ 50 mls/hr Q2H PRN IV 09/17/16 05:00 Potassium Chloride 100 ml @ 50 mls/hr Q2H PRN IV 09/17/16 05:00 Potassium Chloride 100 ml @ 50 mls/hr Q2H PRN IV 09/17/16 05:00 (KCl 40 Meq Premix Inj) 100 ml @ 25 mls/hr UNSCH PRN IV 09/17/16 05:00 (KCl 40 Meq/30 ml Liq) 40 meq UNSCH PRN PO/TUBE 09/17/16 05:00 (KCl 40 Meq/30 ml Liq) 40 meq UNSCH PRN PO/TUBE 09/17/16 05:00 (K-Phos) 2,000 mg Q4H PRN PO 09/17/16 05:00 Potassium Phosphate 2000 mg 2,000 mg UNSCH PRN PO/TUBE 09/17/16 05:00 Potassium Phosphate 30 mmol/ Sodium Chloride 260 ml @ 42 mls/hr UNSCH PRN IV 09/17/16 05:00 (Sodium Phosphate Inj/NS 250 ml Inj) 250 ml @ 42 mls/hr UNSCH PRN IV 09/17/16 05:00 (D50w (Vial) Inj) 25 ml UNSCH PRN IV PUSH 09/17/16 05:00 (NovoLIN R SUPPLEMENTAL SCALE) 1 Q6HR SQ 09/17/16 06:00 (NS Flush) 2 ml UNSCH PRN IV FLUSH 09/17/16 05:00 (NS Flush) 2 ml BID IV FLUSH 09/17/16 09:00 (Protonix Inj) 40 mg DAILY IV 09/17/16 09:00 (Zofran Inj) 4 mg Q6H PRN IV 09/17/16 05:00 (Sarahi-Colace) 2 tab BID PO 09/17/16 09:00 Miscellaneous Information 1 Q361D XX 09/17/16 05:00 (Chlorhexidine 2% Cloth) 3 pack Taper DAILY@04 TOP 09/18/16 04:00 09/14/17 03:59 Chlorhexidine Gluconate 3 pack 3 pack UNSCH PRN TOP 09/17/16 05:00 Cefepime HCl 1000 mg/Sodium Chloride 100 ml @ 200 mls/hr Q8H IV 09/17/16 13:00 (Zithromax Inj/ NS 250 ml Inj) 250 ml @ 250 mls/hr Q24H IV 09/18/16 05:00 (Lovenox Inj) 110 mg Q24H SQ 09/17/16 06:00 09/17/16 06:16 Family History Father had CABG Social History used to drink heavily till 8 months ago No smoking No illicit drug use (Sofia Pritchard) Review of Systems Constitutional: DENIES: Fever, Chills, Dizziness Endocrine: DENIES: Polyuria Eyes: DENIES: Double Vision Ears, nose, mouth, throat: DENIES: Hoarseness Respiratory: COMPLAINS OF: Shortness of breath Cardiovascular: COMPLAINS OF: Lower Extremity Edema Gastrointestinal: COMPLAINS OF: Abdominal pain, Constipation, Swelling of Abdomen, DENIES: Black stools, Bloody stools, Diarrhea, Nausea, Vomiting, Difficulty Swallowing, Anorexia, Heartburn, Hematemesis Genitourinary: DENIES: Hematuria Musculoskeletal: DENIES: Neck pain Integumentary: DENIES: Jaundice Hematologic/lymphatic: DENIES: Bruising Immunologic/allergic: DENIES: Eczema Neurologic: DENIES: Abnormal gait Psychiatric: DENIES: Anxiety (Sofia Pritchard) GI Exam Vitals I&O Vital Signs Date Time Temp Pulse Resp B/P Pulse Ox O2 Delivery O2 Flow Rate FiO2 09/17/16 07:14 97 70 09/17/16 06:20 92 16 112/68 97 BiPAP 09/17/16 05:00 90 15.00 100 09/17/16 04:42 121 22 136/71 99 CPAP 09/17/16 04:15 97 100 09/17/16 03:10 120 30 136/63 95 Non-Rebreather 09/17/16 02:50 92 Non-Rebreather 15 09/17/16 02:40 99.2 131 22 132/64 87 Imaging Last Impressions Chest X-Ray 09/17/16250 Signed Impressions: Service Date/Time: August 03:10 - CONCLUSION: Diffuse bilateral parenchymal opacities Raúl Cortez MD CT Angiography 09/17/16250 Signed Impressions: Service Date/Time: August 05:06 - CONCLUSION: No evidence of pulmonary embolism Raúl Cortez MD Abdomen/Pelvis CT 09/17/16 0000 Signed Impressions: Service Date/Time: August 05:06 - CONCLUSION: Markedly cirrhotic liver appearance. Cavernous transformation of the portal vein. Moderate ascites. Raúl Cortez MD Laboratory Test 09/17/16 09/17/16 09/17/16 09/17/16 02:55 03:10 04:30 05:42 White Blood Count 7.6 TH/MM3 Red Blood Count 3.25 MIL/MM3 Hemoglobin 8.4 GM/DL Hematocrit 26.9 % Mean Corpuscular Volume 82.8 FL Mean Corpuscular Hemoglobin 26.0 PG Mean Corpuscular Hemoglobin 31.4 % Concent Red Cell Distribution Width 17.8 % Platelet Count 176 TH/MM3 Mean Platelet Volume 9.4 FL Neutrophils (%) (Auto) 71.1 % Lymphocytes (%) (Auto) 17.3 % Monocytes (%) (Auto) 9.6 % Eosinophils (%) (Auto) 1.1 % Basophils (%) (Auto) 0.9 % Neutrophils # (Auto) 5.4 TH/MM3 Lymphocytes # (Auto) 1.3 TH/MM3 Monocytes # (Auto) 0.7 TH/MM3 Eosinophils # (Auto) 0.1 TH/MM3 Basophils # (Auto) 0.1 TH/MM3 CBC Comment DIFF FINAL Differential Comment Prothrombin Time 11.8 SEC Prothromb Time International 1.1 RATIO Ratio Activated Partial 22.2 SEC Thromboplast Time Sodium Level 139 MEQ/L Potassium Level 4.0 MEQ/L Chloride Level 104 MEQ/L Carbon Dioxide Level 23.1 MEQ/L Anion Gap 12 MEQ/L Blood Urea Nitrogen 17 MG/DL Creatinine 1.10 MG/DL Estimat Glomerular Filtration 69 ML/MIN Rate Random Glucose 165 MG/DL Calcium Level 7.9 MG/DL Magnesium Level 1.7 MG/DL Total Bilirubin 0.8 MG/DL Aspartate Amino Transf 62 U/L (AST/SGOT) Alanine Aminotransferase 51 U/L (ALT/SGPT) Alkaline Phosphatase 78 U/L Total Creatine Kinase 147 U/L Creatine Kinase MB 4.1 NG/ML Troponin I 0.05 NG/ML B-Type Natriuretic Peptide 336 PG/ML Total Protein 6.5 GM/DL Albumin 2.7 GM/DL Blood Gas Puncture Site IV LINE LT RADIAL Blood Gas Patient Temperature 98.6 98.6 Venous Blood pH 7.28 Venous Blood Partial Pressure 47 mmHg CO2 Venous Blood Partial Pressure 31 mmHg O2 Venous Blood HCO3 21 mmol/L Venous Blood Oxygen Saturation 50 % Venous Blood Oxygen Content 6.0 Vol % Venous Blood Base Excess -4.4 mmol/L Oxygen Delivery Device NRB BiPAP Blood Gas Liter Flow 15 L/M Blood Gas Inspired Oxygen 100 % 70 % Lactic Acid Level 4.6 mmol/L Blood Gas HCO3 22 mmol/L Blood Gas Base Excess -2.5 mmol/L Blood Gas Oxygen Saturation 90 % Arterial Blood pH 7.36 Arterial Blood Partial 40 mmHg Pressure CO2 Arterial Blood Partial 74 mmHG Pressure O2 Arterial Blood Oxygen Content 9.8 Vol % Arterial Blood 3.7 % Carboxyhemoglobin Arterial Blood Methemoglobin 2.2 % Blood Gas Hemoglobin 7.7 G/DL Test 09/17/16 06:30 Lactic Acid Level 1.2 mmol/L Date/Time Procedure Status Source Growth 09/17/16 02:55 Aerobic Blood Culture Received Blood Peripheral Pending 09/17/16 02:55 Anaerobic Blood Culture Received Blood Peripheral Pending Physical Examination HEENT: normocephalic; atraumatic; no jaundice. NECK: Neck is supple, no JVD, no lymphadenopathy. CHEST: Chest is clear to auscultation and percussion. CARDIAC: Regular rate and rhythm with no murmur gallop or rubs. ABDOMEN: Soft,distended,diffused tenderness; bowel sounds are present in all four quadrants. Ascites EXTREMITIES:BLE edema, 2+ SKIN: Normal; no rash; no jaundice. FISHER TRAWL NET: No focal deficits; alert and oriented times three. (Sofia Pritchard) Assessment and Plan Plan - Cirrhosis- Patient not sure what work up was done in the past, hx of heavy alcohol intake, quit 8 months ago, presented to the ED for abd pain, swelling and shortness of breath Labs on admission revealed white blood cell count 7, hemoglobin of 8.4, platelet count 176, lactate of 4.6. Currently patient is on non rebreather. He was told in the past that he has a hint of cirrhosis, not sure what work up if any was done, he initially was following with Dr. Jimenes, but was seen in our office in November of 2015 and had work up for hep-c and that came back negative. He had a colonoscopy in (12/23/15) ----> some stools, other ash normal. CT showed Markedly cirrhotic liver appearance. Cavernous transformation of the portal vein. Moderate ascites. CTA of the chest no PE. He repots constipation in the past few days, weight gain of about 16 ibs in the past month. He denies nausea, vomiting, hematemesis, hematochezia or melena. - Anemia- no bleeding reported, hgb is 8.4 - Portal vein thrombosis, acute- CT as above, He denies nausea, vomiting, hematemesis, hematochezia or melena. Lovenox - Hep-c- our office records indicate negative viral load and PCR - Ascites- Weight gain of 16 ibs in the last month, abd swelling - Hypoxemia- CCM on the case, on a non rebreather currently - HTN, DM per attending Plan: - JEREMY - CHELY, ASMA, AMA, alpha antitrypsin deficiency, celiac panel, iron studies, ceruloplasmin to r/o other causes for the cirrhosis - AFP - ammonia - CBC, CMP in the am - Patient will need EGD once stable respiratory ash - Will need diagnostic paracentesis - Lasix 40 mg - Aldactone 100 mg - cont. PPI - Supportive care - Patient seen and examined by Dr. Maciel and myself and this note is written on his behalf. (Sofia Pritchard) Physician Comments Seen and examined with CERTIFIED PHARMACY TECHNICIAN, SOB main issue. H/O hep C treatmnet naive. Paracentesis, and egd once sob resolves. On lovenox for Portal vein thrombosis. Will follow. Thank you (Rhonda Maciel MD) Sofia Pritchard Sep 17, 2016 09:07 Rhonda Maciel MD Sep 17, 2016 17:56
[2016-09-17] MEDS: SODIUM CHLORIDE 0.9% FLUSH 5 ML FLUSH IV FLUSH SCH ×2 (09:31→21:00)
[2016-09-17] MEDS: PANTOPRAZOLE SODIUM 40 MG VIAL IV SCH (09:31)
[2016-09-17] MEDS: DOCUSATE SODIUM 50 MG/SENNA 8.6 MG TAB PO SCH ×2 (09:32→21:00)
[2016-09-17] MEDS: CEFEPIME INJ 1,000 MG in SODIUM CHLORIDE 0.9% INJ 100 ML IV SCH ×2 (11:24→21:30)
[2016-09-17] MEDS ORDERED: ALBUMIN HUMAN 25% 25 GM/100 ML BAGP IV ONE (11:51)
[2016-09-17] MEDS ORDERED: MORPHINE SULFATE 4 MG/ML INJ IV ONE (12:00)
--- NOTE | 2016-09-17 12:55 | PD.PROCEDR ---
Procedure Note Procedure Ultrasound-guided left paracentesis Indication: Large ascites A time-out was completed verifying correct patient, procedure, site, positioning , and special equipment if applicable. The patient's Left lower quadrant was prepped and draped in a sterile manner after the appropriate infiltration level was confirmed by ultrasound. 1% lidocaine was used anesthetize the surrounding skin. A 10-blade scalpel used to make the incision. The paracentesis Angio cath was then introduced without difficulty and needle was removed. Catheter was connected to Vacutainer bottle and 4700 ml of clear straw colored fluid was removed. Estimated Blood Loss: <1 ml. Fluid studies sent. The patient tolerated the procedure well and there were no immediate complications. Cory Olsen MD Sep 17, 2016 12:54
[2016-09-17 13:48] LABS: FERRITIN 7 NG/ML (26-388); TRANSFERRIN IRON PROFILE 356 MG/DL (200-360)
[2016-09-17 13:51] LABS: PERITONEAL HISTIOCYTES 46 %; PERITONEAL LYMPHS 31 %; PERITONEAL MESOTHELIAL 4 %; PERITONEAL MONOS 6 %; PERITONEAL POLYS(SEGS) 13 %; PERITONEAL WBC 367 /MM3 (0-10)
[2016-09-17] MEDS: MORPHINE SULFATE 4 MG/ML INJ IV PRN ×2 (16:18→21:29)
--- NOTE | 2016-09-17 17:49 | EC ---
Study Study Date:09/17/2016 STUDY CONCLUSIONS SUMMARY - Procedure narrative: Transthoracic echocardiography. Image quality was fair. Scanning was performed from the parasternal, apical, and subcostal acoustic windows. - Left ventricle: The cavity size was normal. Wall thickness was normal. Systolic function was low normal. The estimated ejection fraction was 50%. Questionable basal inferior akinesis and thinning. - Mitral valve: Mild regurgitation. - Atrial septum: There was a probablepatent foramen ovale(PFO) demonstrated by color Doppler though not definitively shown on saline contrast study. Direction of flow through the PFO may be right to left. - Tricuspid valve: Trace regurgitation. If LV function is below 40, please consider prescribing an ACEI or ARB or document rationale for non-use. PROCEDURE DATA STUDY STATUS: Elective. Procedure: Transthoracic echocardiography. Image quality was fair. Scanning was performed from the parasternal, apical, and subcostal acoustic windows. Study completion: The patient tolerated the procedure well. Transthoracic echocardiography. M-mode, complete 2D, complete spectral Doppler, and color Doppler. Height: Height: 70in. Weight: Weight: 164.7lb. Body mass index: BMI: 23.7kg/m^2. Body surface area: BSA: 1.92m^2. Patient status: Inpatient. CARDIAC ANATOMY LEFT VENTRICLE: The cavity size was normal. Wall thickness was normal. Systolic function was low normal. The estimated ejection fraction was 50%. Questionable basal inferior akinesis and thinning. AORTIC VALVE: Trileaflet; normal thickness leaflets. Doppler: Transvalvular velocity was within the normal range. There was no stenosis. No regurgitation. Valve area: 1.7cm^2(VTI). Indexed valve area: 0.89cm^2/m^2 (VTI). Valve area: 1.86cm^2 (Vmax). Indexed valve area: 0.97cm^2/m^2 (Vmax). Mean gradient: 3mm Hg (S). AORTA: Aortic root: The aortic root was normal in size. MITRAL VALVE: Structurally normal valve. Doppler: Transvalvular velocity was within the normal range. There was no evidence for stenosis. Mild regurgitation. Peak gradient: 5mm Hg (D). LEFT ATRIUM: The atrium was normal in size. ATRIAL SEPTUM: There was a probablepatent foramen ovale(PFO) demonstrated by color Doppler though not definitively shown on saline contrast study. Direction of flow through the PFO may be right to left. RIGHT VENTRICLE: The cavity size was normal. Wall thickness was normal. PULMONIC VALVE: Doppler: Transvalvular velocity was within the normal range. There was no evidence for stenosis. No regurgitation. TRICUSPID VALVE: Structurally normal valve. Doppler: Transvalvular velocity was within the normal range. Trace regurgitation. PULMONARY ARTERY: The main pulmonary artery was normal-sized. Systolic pressure was within the normal range. RIGHT ATRIUM: The atrium was normal in size. PERICARDIUM: There was no pericardial effusion. SYSTEMIC VEINS: Inferior vena cava: The vessel was normal in size. Patient weight: 164.7lb _Ejection fraction:_ 65-75% _Fractional shortening:_ 32% up to 5Kg 5-11.5Kg 11.6-22.9Kg 23-45Kg 45-57Kg Aortic Root 7-13 <17 13-22 17-27 17-27 LA diam 6-13 <23 24-38 33-47 37-40 RVID 10-17 7-15 7-15 7-18 8-17 LVIDd 12-22 <32 24-38 33-47 37-40 LVPW 2-4 3-6 5-7 6-8 7-8 IVS 2-4 3-6 5-7 6-8 7-8 BASIC MEASUREMENTS ADULT NORMAL Left ventricle LV internal dimension, ED, chordal 48.5 mm 43-52 level, PLAX LV internal dimension, ES, chordal 33.5 mm 23-38 level, PLAX Fractional shortening, chordal level, 31 % >29 PLAX LV posterior wall thickness, ED 9.92 mm IVS/LVPW ratio, ED 0.95 <1.3 Ventricular septum Septal thickness, ED 9.39 mm Aortic valve Leaflet separation 21 mm 15-26 Aorta Root diameter, ED 32 mm Left atrium Anterior-posterior dimension 46 mm Anterior-posterior dimension index *2.4 cm/m^2 <2.2 BASIC MEASUREMENTS ADULT NORMAL Aortic valve Leaflet separation 21 mm 15-26 DOPPLER MEASUREMENTS ADULT NORMAL Main pulmonary artery Pressure, S 30 mm Hg =30 Aortic valve Peak velocity, S 120 cm/s Mean velocity, S 80.8 cm/s VTI, S 23.3 cm Mean gradient, S 3 mm Hg Valve area, VTI 1.7 cm^2 Valve area index, VTI 0.89 cm^2/m^2 Valve area, Vmax 1.86 cm^2 Valve area index, Vmax 0.97 cm^2/m^2 Mitral valve Peak E-wave velocity 114 cm/s Peak A-wave velocity 41 cm/s Deceleration time 158 ms 150-230 Peak gradient, D 5 mm Hg Peak E/A ratio 2.8 Tricuspid valve Regurgitant peak velocity 271 cm/s Peak RV-RA gradient, S 29 mm Hg Maximal regurgitant velocity 271 cm/s Systemic veins Estimated CVP 5 mm Hg Right ventricle RV pressure, S *34 mm Hg <30 Pulmonic valve Peak velocity, S 97 cm/s LEGEND: Mean values are shown as u=mean value. Asterisk (*) zuniga values outside specified normal range. Amended Yunior Diaz [id number]
[2016-09-17] MEDS ORDERED: PREGABALIN 100 MG CAP PO SCH (20:07)
--- NOTE | 2016-09-17 20:59 | EKG ---
Date Performed: 09/17/2016 Time Performed: 03:08:17 PTAGE: 56 years EKG: SINUS TACHYCARDIA MARKED ST DEPRESSION, CONSIDER SUBENDOCARDIAL INJURY ABNORMAL ECG PREVIOUS TRACING : 07/14/2011 13.48 DOCTOR: Abhishek Grady Interpretating Date/Time 09/17/2016 20:56:33
[2016-09-17] MEDS: ACETAMINOPHEN/HYDROcodone 325 MG/10 MG TAB PO PRN (21:29)
[2016-09-17] MEDS: ALPRAZolam 1 MG TAB PO PRN (21:29)
[2016-09-17] MEDS ORDERED: PREGABALIN 100 MG CAP PO ONE (23:00)
[2016-09-18] VITALS (20 sets, daily range): BP systolic 103–145; BP diastolic 56–93; PULSE 80–114; RESP 10–26; TEMP 97.8–100.6; O2SAT 93–100
[2016-09-18] MEDS: MORPHINE SULFATE 4 MG/ML INJ IV PRN ×4 (01:37→20:14)
[2016-09-18] MEDS: CHLORHEXIDINE GLUCONATE 2 % 1 PACK (2 CLOTHS) TOP SCH (04:00)
[2016-09-18] MEDS: RESP: ALBUTEROL 2.5 MG/IPRATROPIUM 0.5 MG NEB (SCH) INH ×6 (04:00→23:49)
[2016-09-18 04:34] LABS: BASOPHIL % 0.6 % (0.0-2.0); EOSINOPHIL % 0.5 % (0.0-4.0); HEMATOCRIT 22.5 % (39.0-51.0); LYMPH % 16.3 % (9.0-44.0); LYMPHOCYTE # 0.9 TH/MM3 (1.0-4.8); MEAN CELL VOLUME 80.8 FL (80.0-100.0); MEAN CORPUSCULAR HEMOGLOBIN 25.7 PG (27.0-34.0); MEAN CORPUSCULAR HGB CONC 31.8 % (32.0-36.0); MONO % 7.6 % (0.0-8.0); PLATELET COUNT 81 TH/MM3 (150-450); RED BLOOD COUNT 2.78 MIL/MM3 (4.50-5.90); WHITE BLOOD COUNT 5.3 TH/MM3 (4.0-11.0)
[2016-09-18 04:39] LABS: HEMO FLAGS AUTO DIFF
[2016-09-18 04:45] LABS: APTT (PATIENT) 28.2 SEC (24.3-30.1); INTERNATIONAL NORMALIZED RATIO 1.2 RATIO; PROTHROMBIN TIME - PATIENT 12.8 SEC (9.8-11.6)
[2016-09-18] MEDS: ACETAMINOPHEN/HYDROcodone 325 MG/10 MG TAB PO PRN ×4 (04:48→23:13)
[2016-09-18] MEDS: CEFEPIME INJ 1,000 MG in SODIUM CHLORIDE 0.9% INJ 100 ML IV SCH ×3 (04:49→20:26)
[2016-09-18] MEDS: AZITHROMYCIN INJ 500 MG in SODIUM CHLOR 0.9% 250 ML INJ 250 ML IV SCH (04:49)
[2016-09-18 05:06] LABS: BICARBONATE 26.2 MEQ/L (21.0-32.0); INDIRECT BILIRUBIN 0.3 MG/DL (0.0-0.8); POTASSIUM 4.3 MEQ/L (3.5-5.1); TOTAL BILIRUBIN ADULT 0.5 MG/DL (0.2-1.0)
[2016-09-18 05:08] LABS: CALCIUM-PROTEIN CORRECTED 8.2 MG/DL (8.5-10.1)
[2016-09-18] MEDS: METFORMIN HOLD POST IV CONTRAST XX SCH (05:14)
[2016-09-18 05:41] LABS: BLOOD GAS BASE EXCESS -0.7 mmol/L (-2-2); BLOOD GAS CARBOXYHEMOGLOBIN 1.6 % (0-4); BLOOD GAS HCO3 24 mmol/L (22-26); BLOOD GAS METHEMOGLOBIN 0.9 % (0-2); BLOOD GAS O2 HGB SATURATION 90 % (90-100); BLOOD GAS OXYGEN CONTENT 9.4 Vol % (12.0-20.0); BLOOD GAS PCO2 39 mmHg (38-42); BLOOD GAS PO2 64 mmHg (61-120); BLOOD GAS TOTAL HGB 7.3 G/DL (12.0-16.0); TEMP CORR TO 98.6
[2016-09-18 05:42] LABS: CRITICAL VALUE YES; DRAW SITE RT RADIAL; LITER FLOW 12 L/M; NUMBER OF ARTERIAL PUNCTURES 1; OXYGEN DEVICE PARTIAL REBREATHER; STAT NO; ULNAR PULSE PRESENT
--- NOTE | 2016-09-18 05:59 | RADRPT ---
EXAM DATE/TIME: 09/18/2016 04:35 [facility] COMPARISON: CHEST SINGLE AP, September 17, 2016, 3:10. INDICATIONS : Please evaluate after respiratory failure. MEDICAL HISTORY : Hypertension. Hypercholesterolemia. Diabetes mellitus type II. Hepatitis C SURGICAL HISTORY : Appendectomy. Riht clavicle ENCOUNTER: Subsequent ACUITY: 2 days PAIN SCORE: Non-responsive. LOCATION: Bilateral chest FINDINGS: There is worsening perivascular process most likely worsening pulmonary edema. Pneumonia is difficult to exclude particularly in the left lung base. CONCLUSION: Worsening pulmonary edema. Luda Contreras MD on September 18, 2016 at 5:56 Board Certified Radiologist. This report was verified electronically.
[2016-09-18] MEDS: ENOXAPARIN SODIUM 120 MG/0.8 ML SYRINGE SQ SCH (06:00)
[2016-09-18] MEDS: INSULIN NovoLIN REGULAR SUPPLEMENTAL SCALE SQ SCH ×5 (06:02→20:56)
[2016-09-18 08:03] LABS: PLATELET ESTIMATE SMEAR LOW (NORMAL); PLATELET MORPHOLOGY NORMAL (NORMAL); SCAN/DIFF AUTO DIFF CONFIRMED
[2016-09-18] MEDS: PANTOPRAZOLE SODIUM 40 MG VIAL IV SCH (08:43)
[2016-09-18] MEDS: SODIUM CHLORIDE 0.9% FLUSH 5 ML FLUSH IV FLUSH SCH ×2 (08:43→20:27)
[2016-09-18] MEDS: busPIRone HCL 10 MG TAB PO SCH ×3 (08:44→17:23)
[2016-09-18] MEDS: DOCUSATE SODIUM 50 MG/SENNA 8.6 MG TAB PO SCH ×2 (08:44→20:27)
[2016-09-18] MEDS: PREGABALIN 100 MG CAP PO SCH ×3 (08:44→17:23)
[2016-09-18] MEDS: SPIRONOLACTONE 100 MG TAB PO SCH (08:44)
[2016-09-18] MEDS: BACLOFEN 20 MG TAB PO SCH ×3 (08:44→17:23)
[2016-09-18] MEDS: amLODIPine BESYLATE 5 MG TAB PO SCH (08:46)
[2016-09-18] MEDS ORDERED: ASPIRIN 325 MG TAB PO SCH (09:00)
[2016-09-18] MEDS ORDERED: PREGABALIN 100 MG CAP PO SCH (09:00)
[2016-09-18] MEDS ORDERED: FUROSEMIDE 40 MG/4 ML VIAL IV PUSH SCH ×2 (09:00→18:00)
[2016-09-18] MEDS ORDERED: FUROSEMIDE 40 MG/4 ML VIAL IV PUSH ONE (12:15)
--- NOTE | 2016-09-18 12:35 | HHI.CCPN ---
Subjective Remarks/Hospital Course This is a 56-year-old male who has a history of cirrhosis and is followed by Dr. Huerta who has been having a few weeks of chronic abdominal pain and was sent for outpatient abdominal ultrasound which reportedly demonstrated a new portal vein thrombosis. His physician called him and stated that he needed to go to the hospital to be evaluated. He initially went to the [facility] emergency department and was admitted, however he then signed out AMA and went home. After lunch he had progressive shortness of breath and abdominal pain but did not want to go back to [facility], so he came to [facility] for evaluation. He was noted to be severely hypoxic on room air with's SPO2 in the 70s. He was placed on BiPAP. He had some improvement with this. His labs are notable for a white blood cell count 7, hemoglobin of 8.4, platelet count 176 creatinine of 1.1, BNP of 336, lactate of 4.6 with a normal serum bicarbonate of 23.1. Critical-care medicine was consulted to evaluate and manage his acute hypoxic SUBJ: 09/18/16: Remains hypoxemic on nonrebreather. Status post paracentesis with 4.7 L removed 09/18/16. 2-D echo done yesterday shows probable PFO with possible R to L shunt. Patient will need DAMARIS, but prior to that need EGD for clearance. Lovenox held due to acute thrombocytopenia-dropped from 176-81. Will consult hematology for assistance with anticoagulation Objective Vital Signs Date Time Temp Pulse Resp B/P Pulse Ox O2 Delivery O2 Flow Rate FiO2 09/18/16 10:00 94 09/18/16 09:44 16 09/18/16 09:22 93 Nasal Cannula 6.00 09/18/16 08:00 97.8 105/71 09/17/16 20:29 50 Intake and Output 09/17/16 09/17/16 09/18/16 08:00 16:00 00:00 Intake Total 126 ml 1098 ml Output Total 4850 ml 500 ml Balance -4724 ml 598 ml Result Diagram: 09/18/168 09/18/16 0408 Other Results Laboratory Tests Test 09/18/16 05:22 Blood Gas Puncture Site RT RADIAL Blood Gas Patient Temperature 98.6 Blood Gas HCO3 24 mmol/L (22-26) Blood Gas Base Excess -0.7 mmol/L (-2-2) Blood Gas Oxygen Saturation 90 % (90-100) Arterial Blood pH 7.40 (7.380-7.420) Arterial Blood Partial 39 mmHg (38-42) Pressure CO2 Arterial Blood Partial 64 mmHg Pressure O2 (61-120) Arterial Blood Oxygen Content 9.4 Vol % (12.0-20.0) Arterial Blood 1.6 % (0-4) Carboxyhemoglobin Arterial Blood Methemoglobin 0.9 % (0-2) Blood Gas Hemoglobin 7.3 G/DL (12.0-16.0) Oxygen Delivery Device PARTIAL REBREATHER Blood Gas Liter Flow 12 L/M Objective Remarks GENERAL: Middle-aged male, lying in bed, in mild to moderate distress due to dyspnea HEENT: Pupils equal, round, reactive. Mucous membranes are moist. NECK: Trachea is midline. NRB. No JVD. CHEST: Tachypneic. Mildly labored. Equal chest rise. Bilateral crackles and few rhonchi CARDIOVASCULAR: Normal rate, regular rhythm. No appreciable murmurs. ABDOMEN: Protuberant, soft, distended. Positive fluid wave. No guarding. s/p paracentesis with 4.7 L of fluid removed 09/17/16 MUSCULOSKELETAL: Distal pulses 2+. No peripheral edema. NEUROLOGICAL: RASS -1. Follows commands in all 4 extremities. No focal deficits Urinary Catheter: Yes Assessment to: Continue Vascular Central Line Catheter: Yes Assessment to: Continue A/P Assessment and Plan Assessment: This is a 56yM with history of etoh cirrhosis who was initially sent to the emergency department for concern of a newly diagnosed portal vein thrombosis but was found to be acutely hypoxic. Differential diagnosis for the hypoxia would be PE vs. community acquired pneumonia vs. CHF vs. hepatopulmonary syndrome. We will obtain CT pulmonary angiogram, 2d echo with bubble study, cultures, cover empirically with antibiotics. I think his lactic acidosis is a Type B from poor hepatic clearance and does not represent tissue hypoperfusion. From a hypoxia standpoint, we will continue BiPAP. We will consult gastroenterology. I've anticoagulated him for his portal vein thrombus. If he is at all transplant candidate, we need to expedite his transplant workup. For now he remains critically ill with multiple organ systems which are currently a threat to life. Active problems: Portal vein thrombosis Acute hypoxic respiratory failure Pulmonary edema Acute Intravascular volume overload PFO with R to L shunt Thrombocytopenia Liver cirrhosis Large ascites COPD Plan: Continue ICU Currently on Lovenox 1.5 mg/kg IV every 24 hours for therapeutic anticoagulation for his portal vein thrombus. Hold due to acute thrombocytopenia platelet dropped from 176-81 -Consult hematology for assistance with anticoagulation Continue BiPAP as needed. DuoNeb every 4 hours scheduled and when necessary --1999 ADA diet. IV Protonix --Patient will need EGD. Also get clearance from GI for DAMARIS --DAMARIS once more stable resp ash RE: PFO with R to L shunt. Consult Dr. Hernandez on Wednesday for evaluation for closure Status post paracentesis with 4.7 L removed 09/17/16. Continue IV Lasix and Aldactone Continue cefepime and azithromycin Follow-up cultures. This patient remains critically ill with one or more organ systems which are or may become a threat to life. I have spent in excess of 40 minutes discontinuously in the care and management of this patient. This time is exclusive of procedures, and includes, but is not limited to, evaluation of the patient, review of the medical record, discussions with family, consultants, nursing staff, or respiratory therapy, and documentation in the medical record. Cory Olsen MD Sep 18, 2016 12:34
--- NOTE | 2016-09-18 12:43 | HHI.GIFU ---
Subjective Remarks Patient still on a non rebreather, doing good over all s/p paracentesis with removal of 4700 ml, he currently has a bag on the left side of the abd in the site of drainage and with some clear straw out put. Denies bleeding, nausea or vomiting (Sofia Pritchard) Objective Vitals I&O Vital Signs Date Time Temp Pulse Resp B/P Pulse Ox O2 Delivery O2 Flow Rate FiO2 09/18/16 12:00 98.9 103 18 123/67 98 09/18/16 12:00 103 09/18/16 10:00 94 09/18/16 09:44 16 09/18/16 09:22 93 Nasal Cannula 6.00 09/18/16 08:00 80 09/18/16 08:00 97.8 80 10 105/71 97 09/18/16 07:00 97 Partial Non-Rebreather 15.00 09/18/16 06:00 96 09/18/16 04:00 100.6 80 12 110/56 98 09/18/16 04:00 80 09/18/16 02:00 88 09/18/16 00:00 99.1 94 21 122/58 94 09/18/16 00:00 94 09/17/16 22:40 94 Partial Rebreather 12.00 09/17/16 22:00 104 09/17/16 20:29 95 Venturi Mask 6.00 50 09/17/16 20:04 98 Partial Rebreather 12.00 09/17/16 20:00 99.8 84 18 116/62 98 09/17/16 20:00 84 09/17/16 20:00 Venturi Mask 50 09/17/16 18:00 94 09/17/16 17:13 97 Venturi Mask 6.00 50 09/17/16 16:23 18 09/17/16 16:00 98.0 94 11 120/59 98 09/17/16 16:00 94 09/17/16 14:00 68 I/O 09/17/16 09/17/16 09/17/16 09/18/16 09/18/16 09/18/16 07:00 15:00 23:00 07:00 15:00 23:00 Intake Total 126 ml 1098 ml 1118 ml Output Total 4850 ml 500 ml 400 ml Balance -4724 ml 598 ml 718 ml Intake Oral 900 ml 800 ml IV Total 126 ml 198 ml 318 ml Output Urine Total 1000 ml 425 ml 300 ml Drainage Total 3850 ml 75 ml 100 ml # Voids 2 # Bowel Movements 0 0 Laboratory Laboratory Tests Test 09/17/16 09/18/16 09/18/16 09/18/16 13:10 04:08 05:22 10:46 Iron Level 17 Total Iron Binding Capacity 498 Percent Iron Saturation 3.4 Ferritin 7 Ammonia 18 Lactate Dehydrogenase 233 Total Protein 6.5 5.6 Tumor Marker Alpha Fetoprotein 4.1 Anti-Nuclear Antibody Screen NEG White Blood Count 5.3 Red Blood Count 2.78 Hemoglobin 7.1 Hematocrit 22.5 Mean Corpuscular Volume 80.8 Mean Corpuscular Hemoglobin 25.7 Mean Corpuscular Hemoglobin 31.8 Concent Red Cell Distribution Width 18.0 Platelet Count 81 Mean Platelet Volume 9.4 Neutrophils (%) (Auto) 75.0 Lymphocytes (%) (Auto) 16.3 Monocytes (%) (Auto) 7.6 Eosinophils (%) (Auto) 0.5 Basophils (%) (Auto) 0.6 Neutrophils # (Auto) 4.0 Lymphocytes # (Auto) 0.9 Monocytes # (Auto) 0.4 Eosinophils # (Auto) 0.0 Basophils # (Auto) 0.0 CBC Comment AUTO DIFF Differential Comment AUTO DIFF CONFIRMED Platelet Estimate LOW Platelet Morphology Comment NORMAL Prothrombin Time 12.8 Prothromb Time International 1.2 Ratio Activated Partial 28.2 Thromboplast Time Sodium Level 137 Potassium Level 4.3 Chloride Level 105 Carbon Dioxide Level 26.2 Anion Gap 6 Blood Urea Nitrogen 17 Creatinine 0.94 Estimat Glomerular Filtration 83 Rate Random Glucose 153 Calcium Level 7.4 Protein Corrected Calcium 8.2 Total Bilirubin 0.5 Direct Bilirubin 0.2 Indirect Bilirubin 0.3 Aspartate Amino Transf 98 (AST/SGOT) Alanine Aminotransferase 41 (ALT/SGPT) Alkaline Phosphatase 59 Albumin 2.4 Blood Gas Puncture Site RT RADIAL Blood Gas Patient Temperature 98.6 Blood Gas HCO3 24 Blood Gas Base Excess -0.7 Blood Gas Oxygen Saturation 90 Arterial Blood pH 7.40 Arterial Blood Partial 39 Pressure CO2 Arterial Blood Partial 64 Pressure O2 Arterial Blood Oxygen Content 9.4 Arterial Blood 1.6 Carboxyhemoglobin Arterial Blood Methemoglobin 0.9 Blood Gas Hemoglobin 7.3 Oxygen Delivery Device PARTIAL REBREATHER Blood Gas Liter Flow 12 Blood Type A POSITIVE Blood Bank Comment Date/Time Procedure Status Source Growth 09/17/16 12:20 Gram Stain - Final Resulted Fluid Peritoneal Fluid 09/17/16 12:20 Body Fluid Culture Resulted Fluid Peritoneal Fluid Pending 09/17/16 02:55 Aerobic Blood Culture - Preliminary Resulted Blood Peripheral NO GROWTH IN 1 DAY 09/17/16 02:55 Anaerobic Blood Culture - Preliminary Resulted Blood Peripheral NO GROWTH IN 1 DAY Imaging Last Impressions Chest X-Ray 09/18/16 0600 Signed Impressions: Service Date/Time: Sunday, September 18, 2016 04:35 - CONCLUSION: Worsening pulmonary edema. Luda Contreras MD CT Angiography 09/17/16 0251 Signed Impressions: Service Date/Time: August 05:06 - CONCLUSION: No evidence of pulmonary embolism Raúl Cortez MD Abdomen/Pelvis CT 09/17/16 0000 Signed Impressions: Service Date/Time: August 05:06 - CONCLUSION: Markedly cirrhotic liver appearance. Cavernous transformation of the portal vein. Moderate ascites. Raúl Cortez MD Physical Exam HEENT: normocephalic; atraumatic; no jaundice. Throat is clear. NECK: Neck is supple, no JVD, no lymphadenopathy. CHEST: Chest is clear to auscultation and percussion. CARDIAC: Regular rate and rhythm with no murmur gallop or rubs. ABDOMEN: Soft, slightly distended, nontender; no hepatosplenomegaly; bowel sounds are present in all four quadrants. ascites, collection bag to the left abdominal EXTREMITIES: BLE SKIN: Normal; no rash; no jaundice. INLAYER SILVER: No focal deficits; alert and oriented times three. (Amawi,Khawla LIQUEFIER) Assessment and Plan Plan - Cirrhosis- hx of heavy alcohol intake, quit 8 months ago, presented to the ED for abd pain, swelling and shortness of breath S/P s/p paracentesis (09/17/16) with removal of 4700 ml, he currently has a bag on the left side of the abd in the site of drainage and with some clear straw out put. Denies bleeding, nausea or vomiting, cytology pending, peritoneal labs revealed WBC 367, cx pending, SAAG 1.7 which indicates portal hypertension as the likely cause MELD (Gabriel 5, UNOS 8), CHELY negative, AFP 4.1, iron 17, ferritin 7, iron % 3.4, rest of labs pending Labs on admission revealed white blood cell count 7, hemoglobin of 8.4, platelet count 176, lactate of 4.6. Currently patient is on non rebreather. He was told in the past that he has a hint of cirrhosis, not sure what work up if any was done, he initially was following with Dr. Jimenes, but was seen in our office in November of 2015 and had work up for hep-c and that came back negative. He had a colonoscopy in (12/23/15) ----> some stools, other ash normal. CT showed Markedly cirrhotic liver appearance. Cavernous transformation of the portal vein. Moderate ascites. CTA of the chest no PE. He repots constipation in the past few days, weight gain of about 16 ibs in the past month. He denies nausea, vomiting, hematemesis, hematochezia or melena. - Anemia- no bleeding reported, hgb is 8.4--->7.1 today - Portal vein thrombosis, acute- CT as above, He denies nausea, vomiting, hematemesis, hematochezia or melena. Lovenox - Hep-c- our office records indicate negative viral load and PCR - Ascites- s/p paracentesis (09/17/16)with removal of 4700 ml, he currently has a bag on the left side of the abd in the site of enter and with some clear straw out put. diuretics - Hypoxemia- CCM on the case, on a non rebreather currently - HTN, DM per attending Plan: - JEREMY - Await ASMA, AMA, alpha antitrypsin deficiency, celiac panel, ceruloplasmin to r/o other causes for the cirrhosis - Await cytology - Await peritoneal cx - CBC in the am - Patient will need EGD once stable respiratory ash - Will need diagnostic paracentesis - Cont. Lasix 40 mg - Cont. Aldactone 100 mg - cont. PPI - Supportive care - Patient seen and examined by Dr. Maciel and myself and this note is written on his behalf. (Sofia Pritchard) Physician Comments Seen and examined with KIMANI, sob better. Egd/colonoscopy next week if stable. ( Rhonda Maciel MD) Sofia Pritchard Sep 18, 2016 12:43 Rhonda Maciel MD Sep 18, 2016 17:09
[2016-09-18] MEDS ORDERED: HEPARIN SODIUM - IV 10,000 UNITS/10 ML VIAL IV PRN ×2 (19:45)
[2016-09-18] MEDS: FUROSEMIDE 40 MG/4 ML VIAL IV PUSH SCH (20:13)
[2016-09-18] MEDS: HEPARIN 25,000 UNITS-D5W 250 ML - PREMIX IV SCH (20:56)
[2016-09-18 21:24] LABS: APTT (PATIENT) 27.7 SEC (24.3-30.1); INTERNATIONAL NORMALIZED RATIO 1.1 RATIO; PROTHROMBIN TIME - PATIENT 12.4 SEC (9.8-11.6)
[2016-09-18 21:39] LABS: HEMATOCRIT 24.6 % (39.0-51.0); MEAN CELL VOLUME 80.5 FL (80.0-100.0); MEAN CORPUSCULAR HEMOGLOBIN 26.2 PG (27.0-34.0); MEAN CORPUSCULAR HGB CONC 32.6 % (32.0-36.0); PLATELET COUNT 82 TH/MM3 (150-450); RED BLOOD COUNT 3.06 MIL/MM3 (4.50-5.90); RED CELL DISTRIBUTION WIDTH 17.6 % (11.6-17.2); WHITE BLOOD COUNT 5.7 TH/MM3 (4.0-11.0)
[2016-09-18 21:47] LABS: REVIEW FLAG FINAL
[2016-09-19] VITALS (14 sets, daily range): BP systolic 104–137; BP diastolic 57–67; PULSE 66–116; RESP 10–21; TEMP 98–100.1; O2SAT 94–100
[2016-09-19] MEDS ORDERED: IOHEXOL 350 MG/ML 10 ML VIAL (for RAD DIAG) IV ONE (02:20)
[2016-09-19] MEDS: MORPHINE SULFATE 4 MG/ML INJ IV PRN ×4 (03:13→21:55)
[2016-09-19] MEDS: RESP: ALBUTEROL 2.5 MG/IPRATROPIUM 0.5 MG NEB (SCH) INH ×6 (03:36→23:50)
[2016-09-19] MEDS: CHLORHEXIDINE GLUCONATE 2 % 1 PACK (2 CLOTHS) TOP SCH (03:39)
[2016-09-19] MEDS: CEFEPIME INJ 1,000 MG in SODIUM CHLORIDE 0.9% INJ 100 ML IV SCH ×3 (04:02→20:34)
[2016-09-19] MEDS: AZITHROMYCIN INJ 500 MG in SODIUM CHLOR 0.9% 250 ML INJ 250 ML IV SCH (04:02)
--- NOTE | 2016-09-19 04:19 | RADRPT ---
EXAM DATE/TIME: 09/19/2016 02:31 [facility] COMPARISON: CT ABDOMEN & PELVIS W CONTRAST, September 17, 2016, 5:06. INDICATIONS : Abdominal pain; portal vein thrombosis on ultrasound. IV CONTRAST: 97 cc Omnipaque 350 (iohexol) IV RADIATION DOSE: CTDIvol (mGy) MEDICAL HISTORY : Hypertension. Diabetes mellitus type 2. Hepatitis C. SURGICAL HISTORY : Appendectomy. ENCOUNTER: Subsequent ACUITY: 1 day PAIN SCALE: 6/10 LOCATION: abdomen TECHNIQUE: Volumetric scanning was performed using a multi-row detector CT scanner. The data was post processed with a variety of visualization algorithms including full volume maximum intensity projection, multi -planar sliding thin slab reformation, curved planar reformation, and surface rendering techniques. Using automated exposure control and adjustment of the mA and/or kV according to patient size, radiat ion dose was kept as low as reasonably achievable to obtain optimal diagnostic quality images. FINDINGS: There is been a significant increase in size of bilateral pleural effusions when compared to prior ex amination; pleural effusions measure up to 5 cm in thickness. There is associated compressive atelec tasis in the lower lungs. The liver has a cirrhotic appearance. Ascites is similar to prior CT. Th e contrast timing is optimized for arterial phase CTA and there is no contrast in the venous structur es. ABDOMINAL AORTA: The lumen is smooth without significant narrowing or aneurismal dilation. The proximal celiac and sup erior mesenteric arteries are patent and normal in diameter. There is a prominent calcification at t he origin of the SMA, but this does not cause luminal narrowing. There are main and accessory renal a rteries bilaterally without gross abnormality. BIFURCATION: Normal. RIGHT PELVIS: The right common iliac, internal iliac and external iliac vessels are patent without luminal irregula rity. LEFT PELVIS: The left common iliac, internal iliac and external iliac vessels are patent and without luminal irreg ularity. CONCLUSION: 1. Atherosclerotic calcification at the origin of the SMA and of the distal common aorta without sign ificant luminal narrowing. 2. Significant increase in size of bilateral pleural effusions when compared to 09/17/16 Raad Pulido MD on September 19, 2016 at 4:08 Board Certified Radiologist. This report was verified electronically.
[2016-09-19 04:36] LABS: AUTOMATED NEUTROPHIL # 4.4 TH/MM3 (1.8-7.7); BASOPHIL % 0.4 % (0.0-2.0); EOSINOPHIL % 0.8 % (0.0-4.0); HEMATOCRIT 27.3 % (39.0-51.0); LYMPH % 15.3 % (9.0-44.0); LYMPHOCYTE # 0.9 TH/MM3 (1.0-4.8); MEAN CELL VOLUME 80.3 FL (80.0-100.0); MEAN CORPUSCULAR HEMOGLOBIN 25.8 PG (27.0-34.0); MEAN CORPUSCULAR HGB CONC 32.2 % (32.0-36.0); MONO % 9.6 % (0.0-8.0); NEUT % 73.9 % (16.0-70.0); PLATELET COUNT 81 TH/MM3 (150-450); RED CELL DISTRIBUTION WIDTH 17.1 % (11.6-17.2); WHITE BLOOD COUNT 5.9 TH/MM3 (4.0-11.0)
[2016-09-19 04:43] LABS: HEMO FLAGS DIFF FINAL
[2016-09-19 04:47] LABS: APTT (PATIENT) 48.5 SEC (24.3-30.1); INTERNATIONAL NORMALIZED RATIO 1.1 RATIO; PROTHROMBIN TIME - PATIENT 12.3 SEC (9.8-11.6)
[2016-09-19] MEDS: ACETAMINOPHEN/HYDROcodone 325 MG/10 MG TAB PO PRN ×4 (05:07→20:33)
[2016-09-19 05:29] LABS: MAGNESIUM 1.6 MG/DL (1.5-2.5); POTASSIUM 3.7 MEQ/L (3.5-5.1)
[2016-09-19 05:32] LABS: INDIRECT BILIRUBIN 0.7 MG/DL (0.0-0.8); TOTAL BILIRUBIN ADULT 1.2 MG/DL (0.2-1.0)
--- NOTE | 2016-09-19 06:17 | RADRPT ---
EXAM DATE/TIME: 09/19/2016 05:25 [facility] COMPARISON: CHEST SINGLE AP, September 18, 2016, 4:35. INDICATIONS : Evaluate after respiratory failure. MEDICAL HISTORY : Hypertension. Diabetes mellitus type II. Hepatitis C. SURGICAL HISTORY : Appendectomy. ENCOUNTER: Subsequent ACUITY: 4 - 6 days PAIN SCORE: 8/10 LOCATION: Bilateral chest FINDINGS: There are persistent airspace opacities in the infrahilar region bilaterally, but the size and densit y of the opacities has decreased when compared to yesterday's chest x-ray. The upper lungs are clear . The heart is normal size. Both hemidiaphragms are well delineated. CONCLUSION: Residual, but improved, airspace opacities bilateral lower lungs. Raad Pulido MD on September 19, 2016 at 6:15 Board Certified Radiologist. This report was verified electronically.
[2016-09-19] MEDS: INSULIN NovoLIN REGULAR SUPPLEMENTAL SCALE SQ SCH ×4 (07:00→21:00)
[2016-09-19] MEDS: IRON SUCROSE INJ 200 MG in SODIUM CHLORIDE 0.9% INJ 100 ML IV SCH (09:04)
[2016-09-19] MEDS: busPIRone HCL 10 MG TAB PO SCH ×3 (09:04→16:16)
[2016-09-19] MEDS: FUROSEMIDE 40 MG/4 ML VIAL IV PUSH SCH ×2 (09:04→20:33)
[2016-09-19] MEDS: DOCUSATE SODIUM 50 MG/SENNA 8.6 MG TAB PO SCH ×2 (09:04→20:32)
[2016-09-19] MEDS: SODIUM CHLORIDE 0.9% FLUSH 5 ML FLUSH IV FLUSH SCH ×2 (09:04→20:34)
[2016-09-19] MEDS: PANTOPRAZOLE SODIUM 40 MG VIAL IV SCH (09:04)
[2016-09-19] MEDS: SPIRONOLACTONE 100 MG TAB PO SCH (09:04)
[2016-09-19] MEDS: BACLOFEN 20 MG TAB PO SCH ×3 (09:05→16:16)
[2016-09-19] MEDS: amLODIPine BESYLATE 5 MG TAB PO SCH (09:05)
[2016-09-19] MEDS: PREGABALIN 100 MG CAP PO SCH ×3 (09:05→16:16)
[2016-09-19] MEDS: HEPARIN 25,000 UNITS-D5W 250 ML - PREMIX IV SCH (09:26)
--- NOTE | 2016-09-19 09:38 | PD.ONC.PN ---
Subjective Subjective Remarks no bleeding sob on movement no fevers/cough Heparin will be stopped d/w rn Objective Data Date Time Temp Pulse Resp B/P Pulse Ox O2 Delivery O2 Flow Rate FiO2 09/19/16 08:00 67 09/19/16 07:00 100 Partial Non-Rebreather 15.00 09/19/16 06:00 98 09/19/16 04:00 106 09/19/16 04:00 98.9 106 16 108/60 97 09/19/16 02:00 70 09/19/16 00:00 74 09/19/16 00:00 100.0 74 12 105/57 98 09/18/16 22:00 108 09/18/16 20:10 97 Partial Rebreather 12.00 09/18/16 20:00 99.6 92 23 113/63 97 09/18/16 20:00 92 09/18/16 19:00 97 Partial Non-Rebreather 15.00 09/18/16 18:23 15 09/18/16 18:00 90 09/18/16 16:30 99.4 82 14 106/57 100 09/18/16 16:00 99.4 92 26 111/60 96 09/18/16 16:00 92 09/18/16 16:00 99.4 92 26 111/60 96 09/18/16 15:30 99.3 104 16 125/89 97 09/18/16 15:12 20 09/18/16 15:00 99.3 84 14 106/56 100 09/18/16 14:45 99.2 94 16 108/69 100 09/18/16 14:30 99.1 114 16 103/59 95 09/18/16 14:15 99.1 106 17 99 09/18/16 14:00 107 09/18/16 14:00 98.9 107 24 145/93 100 09/18/16 12:00 98.9 103 18 123/67 98 09/18/16 12:00 103 09/18/16 10:00 94 Result Diagram: 09/19/16 0404 09/19/16 0404 Laboratory Results Laboratory Tests Test 09/18/16 09/18/16 09/18/16 09/18/16 10:46 12:10 12:39 20:18 Blood Type A POSITIVE A POSITIVE Antibody Screen NEGATIVE Blood Bank Comment Crossmatch Leukocyte-Reduced Red Blood Cells White Blood Count 5.7 TH/MM3 Red Blood Count 3.06 MIL/MM3 Hemoglobin 8.0 GM/DL Hematocrit 24.6 % Mean Corpuscular Volume 80.5 FL Mean Corpuscular Hemoglobin 26.2 PG Mean Corpuscular Hemoglobin 32.6 % Concent Red Cell Distribution Width 17.6 % Platelet Count 82 TH/MM3 Mean Platelet Volume 9.6 FL Prothrombin Time 12.4 SEC Prothromb Time International 1.1 RATIO Ratio Activated Partial 27.7 SEC Thromboplast Time Test 09/19/16 04:04 White Blood Count 5.9 TH/MM3 Red Blood Count 3.40 MIL/MM3 Hemoglobin 8.8 GM/DL Hematocrit 27.3 % Mean Corpuscular Volume 80.3 FL Mean Corpuscular Hemoglobin 25.8 PG Mean Corpuscular Hemoglobin 32.2 % Concent Red Cell Distribution Width 17.1 % Platelet Count 81 TH/MM3 Mean Platelet Volume 9.5 FL Neutrophils (%) (Auto) 73.9 % Lymphocytes (%) (Auto) 15.3 % Monocytes (%) (Auto) 9.6 % Eosinophils (%) (Auto) 0.8 % Basophils (%) (Auto) 0.4 % Neutrophils # (Auto) 4.4 TH/MM3 Lymphocytes # (Auto) 0.9 TH/MM3 Monocytes # (Auto) 0.6 TH/MM3 Eosinophils # (Auto) 0.0 TH/MM3 Basophils # (Auto) 0.0 TH/MM3 CBC Comment DIFF FINAL Differential Comment Prothrombin Time 12.3 SEC Prothromb Time International 1.1 RATIO Ratio Activated Partial 48.5 SEC Thromboplast Time Sodium Level 136 MEQ/L Potassium Level 3.7 MEQ/L Chloride Level 102 MEQ/L Carbon Dioxide Level 26.0 MEQ/L Anion Gap 8 MEQ/L Blood Urea Nitrogen 17 MG/DL Creatinine 0.79 MG/DL Estimat Glomerular Filtration 101 ML/MIN Rate Random Glucose 140 MG/DL Calcium Level 7.6 MG/DL Magnesium Level 1.6 MG/DL Total Bilirubin 1.2 MG/DL Direct Bilirubin 0.5 MG/DL Indirect Bilirubin 0.7 MG/DL Aspartate Amino Transf 65 U/L (AST/SGOT) Alanine Aminotransferase 38 U/L (ALT/SGPT) Alkaline Phosphatase 62 U/L Total Protein 6.2 GM/DL Albumin 2.5 GM/DL Culture Results Microbiology Date/Time Procedure Status Source Growth 09/17/16 02:50 Aerobic Blood Culture - Preliminary Resulted Blood Peripheral NO GROWTH IN 1 DAY 09/17/16 02:50 Anaerobic Blood Culture - Preliminary Resulted Blood Peripheral NO GROWTH IN 1 DAY 09/17/16 02:55 Aerobic Blood Culture - Preliminary Resulted Blood Peripheral NO GROWTH IN 1 DAY 09/17/16 02:55 Anaerobic Blood Culture - Preliminary Resulted Blood Peripheral NO GROWTH IN 1 DAY 09/17/16 12:20 Gram Stain - Final Resulted Fluid Peritoneal Fluid 09/17/16 12:20 Body Fluid Culture - Preliminary Resulted Fluid Peritoneal Fluid NO GROWTH IN 24 HOURS. Imaging Studies Last 24 hours Impressions Chest X-Ray 09/19/16 0600 Signed Impressions: Service Date/Time: Monday, September 19, 2016 05:25 - CONCLUSION: Residual, but improved, airspace opacities bilateral lower lungs. Raad Pulido MD Abdomen CTA 09/19/16 0000 Signed Impressions: Service Date/Time: Monday, September 19, 2016 02:31 - CONCLUSION: 1. Atherosclerotic calcification at the origin of the SMA and of the distal common aorta without significant luminal narrowing. 2. Significant increase in size of bilateral pleural effusions when compared to 09/17/16 Raad Pulido MD Administered Medications Medications (Trade) Dose Ordered Sig/Jez Route PRN Reason Start Time Stop Time Status Last Admin Dose Admin IV Flush (NS Flush) 2 ml BID IV FLUSH 09/17/16 09:00 09/19/16 09:04 Pantoprazole Sodium (Protonix Inj) 40 mg DAILY IV 09/17/16 09:00 09/19/16 09:04 Senna/Docusate Sodium 2 tab 2 tab BID PO 09/17/16 09:00 09/19/16 09:04 Cefepime HCl 1000 mg/Sodium Chloride 100 ml @ 200 mls/hr Q8H IV 09/17/16 13:00 09/19/16 04:02 Azithromycin/ Sodium Chloride (Zithromax Inj/ NS 250 ml Inj) 250 ml @ 250 mls/hr Q24H IV 09/18/16 05:00 09/19/16 04:02 Spironolactone (Aldactone) 100 mg DAILY PO 09/18/16 09:00 09/19/16 09:04 Morphine Sulfate (Morphine Inj) 2 mg Q4H PRN IV PAIN SCALE 1-10 09/17/16 11:15 09/19/16 03:13 Amlodipine Besylate (Norvasc) 5 mg DAILY PO 09/18/16 09:00 09/19/16 09:05 Baclofen (Lioresal) 20 mg TID PO 09/18/16 09:00 09/19/16 09:05 Buspirone HCl (Buspar) 10 mg TID PO 09/18/16 09:00 09/19/16 09:04 Pregabalin (Lyrica) 300 mg TID PO 09/18/16 09:00 09/19/16 09:05 Acetaminophen/ Hydrocodone Bitart ([place] 10-325 Mg) 1 tab Q4H PRN PO PAIN SCALE 4 TO 10 09/17/16 20:45 09/19/16 09:05 Furosemide 40 mg 40 mg Q12H IV PUSH 09/18/16 21:00 09/19/16 09:04 Heparin Sodium/ Dextrose 250 ml @ 0 mls/hr TITRATE IV 09/18/16 19:45 09/19/16 09:26 Iron Sucrose/ Sodium Chloride (Venofer Inj/NS Inj) 110 ml @ 110 mls/hr DAILY IV 09/19/16 09:00 09/21/16 09:59 09/19/16 09:04 Objective Remarks GENERAL: chronically ill appearing SKIN: Warm and dry. NECK: Supple, trachea midline. No JVD or lymphadenopathy. LYMPHATIC: No adenopathy. CARDIOVASCULAR: Regular rate and rhythm without murmurs. RESPIRATORY: Breath sounds equal bilaterally. No accessory muscle use. GASTROINTESTINAL: Abdomen distended, mild diffused tenderness EXTREMITIES: No cyanosis, or edema. Assessment/Plan Problem List: (1) Portal vein thrombosis Status: Acute (2) Hypoxia Status: Acute (3) Pneumonia Status: Acute Assessment 56-year-old male with a history of significant alcohol abuse, liver cirrhosis and liver disease who presents with abdominal pain. 1. Chronic abdominal pain with acute exacerbation. - CTA abdomen does not show any portal thrombosis - Stop heparin 3. Advanced stage liver disease with liver cirrhosis. 4. History of alcohol abuse. 5. Anemia which is borderline microcytic. - Iron deficient. start Iron infusions - Check stool hemoccult. GI is already following the patient. 6. Thrombocytopenia due to liver disease/cirrhosis/consumption - PLt 81 - does not appear to be HIT D/w rn. Problem Qualifiers (1) Pneumonia: Qualified Code: J18.9 - Pneumonia of both lungs due to infectious organism, unspecified part of lung Delfino Heredia MD Sep 19, 2016 09:38
--- NOTE | 2016-09-19 10:29 | HHI.CCPN ---
Subjective Remarks/Hospital Course This is a 56-year-old male who has a history of cirrhosis and is followed by Dr. Huerta who has been having a few weeks of chronic abdominal pain and was sent for outpatient abdominal ultrasound which reportedly demonstrated a new portal vein thrombosis. His physician called him and stated that he needed to go to the hospital to be evaluated. He initially went to the [facility] emergency department and was admitted, however he then signed out AMA and went home. After lunch he had progressive shortness of breath and abdominal pain but did not want to go back to [facility], so he came to [facility] for evaluation. He was noted to be severely hypoxic on room air with's SPO2 in the 70s. He was placed on BiPAP. He had some improvement with this. His labs are notable for a white blood cell count 7, hemoglobin of 8.4, platelet count 176 creatinine of 1.1, BNP of 336, lactate of 4.6 with a normal serum bicarbonate of 23.1. Critical-care medicine was consulted to evaluate and manage his acute hypoxic SUBJ: 09/18/16: Remains hypoxemic on nonrebreather. Status post paracentesis with 4.7 L removed 09/18/16. 2-D echo done yesterday shows probable PFO with possible R to L shunt. Patient will need DAMARIS, but prior to that need EGD for clearance. Lovenox held due to acute thrombocytopenia-dropped from 176-81. Will consult hematology for assistance with anticoagulation 09/19 Patient is awake and alert, on partial non rebreather with good sats. Afebrile. T:100.0 at midnight. Objective Vital Signs Date Time Temp Pulse Resp B/P Pulse Ox O2 Delivery O2 Flow Rate FiO2 09/19/16 08:00 98.0 66 10 107/60 100 09/19/16 07:00 Partial Non-Rebreather 15.00 09/17/16 20:29 50 Intake and Output 09/18/16 09/18/16 09/19/16 08:00 16:00 00:00 Intake Total 1118 ml 2222 ml 1525 ml Output Total 400 ml 2075 ml 1380 ml Balance 718 ml 147 ml 145 ml Result Diagram: 09/19/16 0404 09/19/16 0404 Other Results Laboratory Tests Test 09/18/16 09/18/16 09/18/16 09/18/16 10:46 12:10 12:39 20:18 Blood Type A POSITIVE A POSITIVE Antibody Screen NEGATIVE Blood Bank Comment Crossmatch Leukocyte-Reduced Red Blood Cells White Blood Count 5.7 TH/MM3 Red Blood Count 3.06 MIL/MM3 Hemoglobin 8.0 GM/DL Hematocrit 24.6 % Mean Corpuscular Volume 80.5 FL Mean Corpuscular Hemoglobin 26.2 PG Mean Corpuscular Hemoglobin 32.6 % Concent Red Cell Distribution Width 17.6 % Platelet Count 82 TH/MM3 Mean Platelet Volume 9.6 FL Prothrombin Time 12.4 SEC Prothromb Time International 1.1 RATIO Ratio Activated Partial 27.7 SEC Thromboplast Time Test 09/19/16 04:04 White Blood Count 5.9 TH/MM3 Red Blood Count 3.40 MIL/MM3 Hemoglobin 8.8 GM/DL Hematocrit 27.3 % Mean Corpuscular Volume 80.3 FL Mean Corpuscular Hemoglobin 25.8 PG Mean Corpuscular Hemoglobin 32.2 % Concent Red Cell Distribution Width 17.1 % Platelet Count 81 TH/MM3 Mean Platelet Volume 9.5 FL Neutrophils (%) (Auto) 73.9 % Lymphocytes (%) (Auto) 15.3 % Monocytes (%) (Auto) 9.6 % Eosinophils (%) (Auto) 0.8 % Basophils (%) (Auto) 0.4 % Neutrophils # (Auto) 4.4 TH/MM3 Lymphocytes # (Auto) 0.9 TH/MM3 Monocytes # (Auto) 0.6 TH/MM3 Eosinophils # (Auto) 0.0 TH/MM3 Basophils # (Auto) 0.0 TH/MM3 CBC Comment DIFF FINAL Differential Comment Prothrombin Time 12.3 SEC Prothromb Time International 1.1 RATIO Ratio Activated Partial 48.5 SEC Thromboplast Time Sodium Level 136 MEQ/L Potassium Level 3.7 MEQ/L Chloride Level 102 MEQ/L Carbon Dioxide Level 26.0 MEQ/L Anion Gap 8 MEQ/L Blood Urea Nitrogen 17 MG/DL Creatinine 0.79 MG/DL Estimat Glomerular Filtration 101 ML/MIN Rate Random Glucose 140 MG/DL Calcium Level 7.6 MG/DL Magnesium Level 1.6 MG/DL Total Bilirubin 1.2 MG/DL Direct Bilirubin 0.5 MG/DL Indirect Bilirubin 0.7 MG/DL Aspartate Amino Transf 65 U/L (AST/SGOT) Alanine Aminotransferase 38 U/L (ALT/SGPT) Alkaline Phosphatase 62 U/L Total Protein 6.2 GM/DL Albumin 2.5 GM/DL Imaging Last Impressions Chest X-Ray 09/19/16 0600 Signed Impressions: Service Date/Time: Monday, September 19, 2016 05:25 - CONCLUSION: Residual, but improved, airspace opacities bilateral lower lungs. Raad Pulido MD Abdomen CTA 09/19/16 0000 Signed Impressions: Service Date/Time: Monday, September 19, 2016 02:31 - CONCLUSION: 1. Atherosclerotic calcification at the origin of the SMA and of the distal common aorta without significant luminal narrowing. 2. Significant increase in size of bilateral pleural effusions when compared to 09/17/[address] Angiography 09/17/16 0251 Signed Impressions: Service Date/Time: August 05:06 - CONCLUSION: No evidence of pulmonary embolism Raúl Cortez MD Abdomen/Pelvis CT 09/17/16 0000 Signed Impressions: Service Date/Time: August 05:06 - CONCLUSION: Markedly cirrhotic liver appearance. Cavernous transformation of the portal vein. Moderate ascites. Raúl Cortez MD Objective Remarks GENERAL: Middle-aged male, lying in bed, in mild distress HEENT: Pupils equal, round, reactive. Mucous membranes are moist. NECK: Trachea is midline. NRB. No JVD. CHEST: Tachypneic. Mildly labored. Equal chest rise. Bilateral crackles and few rhonchi CARDIOVASCULAR: Normal rate, regular rhythm. No appreciable murmurs. ABDOMEN: Protuberant, soft, distended. Positive fluid wave. No guarding. s/p paracentesis with 4.7 L of fluid removed 09/17/16 MUSCULOSKELETAL: Distal pulses 2+. No peripheral edema. NEUROLOGICAL: RASS -1. Follows commands in all 4 extremities. No focal deficits Awake and alert A/P Assessment and Plan Active problems: Portal vein thrombosis Acute hypoxic respiratory failure Pulmonary edema Acute Intravascular volume overload PFO with R to L shunt Thrombocytopenia Liver cirrhosis Large ascites COPD Plan: Neuro: Awake and alert, avoid sedatives. On BuSpar and Lyrica, Pulm: Wean down oxygen as ignacio keep sat >92% Bronchodilators CV: -Monitor HR and BP keep MAP>65mmHg On Norvasc 5mg daily --DAMARIS once more stable resp ash Re: PFO with R to L shunt. Consult Dr. Hernandez on Wednesday for evaluation for closure : Monitor renal function, I/O's, electrolytes replacement per protocol. GI: On PO diet Status post paracentesis with 4.7 L removed 09/17/16. Continue IV Lasix 40mg Q12 and Aldactone 100mg daily Heme: Monitor CBC, Coags- on Heparin drip, heme is following Follow up on Hep PLT ab. ID: Continue with abx ( Cefepime, Zithromax)monitor for signs of infections ( Fever, WBC) 09/17 BC: NGTD 09/17 Fluid cx: NGTD Endo: On SSI ( medium) for glycemic control GI prophylaxis- on Protonix 40mg daily DVT prophylaxis- On Heparin drip Level 3 Rony Mckeon MD Sep 19, 2016 10:29
--- NOTE | 2016-09-19 10:34 | MB ---
cc: MAUREEN BRASHER DATE OF CONSULTATION: 09/18/2016 DATE OF : 1960. REASON FOR CONSULTATION The patient with findings of portal vein thrombosis based on an outpatient abdominal ultrasound. CHIEF COMPLAINT Abdominal pain. HISTORY OF PRESENT ILLNESS This is a 56-year-old male with a history of alcohol abuse, liver disease and liver cirrhosis who presented with worsening of his chronic abdominal pain. An outpatient abdominal ultrasound was completed which reportedly showed a new portal vein thrombosis. The patient was sent over to the [facility] Emergency Department but then he left AMA. He had progressive dyspnea and abdominal pain and he then presented to the [facility] Emergency Department. He was severely hypoxic with O2 saturations in the 70s. His hypoxia improved after he was placed on a BiPAP. He had a CT of the abdomen and pelvis on admission. This shows markedly cirrhotic liver with cavernous transformation of the portal vein, there was moderate ascites, no mesenteric thrombosis is reported. Additionally, he had a CT angiogram which showed no evidence of pulmonary embolism. A chest x-ray showed worsening pulmonary edema. I have been consulted to evaluate this patient with thrombocytopenia. The patient states that he has not had an alcoholic drink for several months. He does admit to drinking heavily in the past. He denies any abdominal pain. He has not had any bleeding. On admission his platelet count was 176,000 however it has declined to 82,000. He was receiving Lovenox on admission. REVIEW OF SYSTEMS A comprehensive 14-point review of systems was completed which is negative except as described in the HPI. PAST MEDICAL HISTORY 1. Hypertension. 2. Hyperlipidemia. 3. Diabetes. 4. Diabetic neuropathy. 5. Liver disease. 6. Liver cirrhosis. PAST SURGICAL HISTORY 1. Appendectomy. 2. Shoulder surgery. 3. Tonsillectomy. MEDICATIONS Medications were reviewed in the EMR. ALLERGIES HE IS ALLERGIC TO NEOSPORIN AND POLYSPORIN. FAMILY HISTORY Family history is significant for coronary artery disease. No history of blood disorders. SOCIAL HISTORY He was an alcoholic but states that he quit six months ago. He does not smoke. No history of illicit drug use. PHYSICAL EXAMINATION VITAL SIGNS: Blood pressure is 106/57, pulse is in the 80s, temperature is 99.4, respiratory rate is 14, O2 sats are 100% on BiPAP. GENERAL: A chronically ill-appearing male, pale, cachectic, protuberant abdomen. HEENT: Pupils are equal, round and reactive to light. EOMI. No oral thrush. No oral lesions. NECK: Neck is supple. No JVD. No bruits. No lymphadenopathy. CHEST: Clear to auscultation bilaterally. CARDIAC: S1, S2. Regular rate and rhythm. ABDOMEN: Abdomen is soft, distended, diffusely tender. Bowel sounds are present. EXTREMITIES: Extremities are without any edema, erythema or cyanosis. SKIN: Skin without any petechiae, lesion or bruises. NEUROLOGIC: No focal deficits. PSYCHIATRIC: Mood and affect is appropriate. LABORATORY DATA WBC is 5.7, hemoglobin is 8, MCV is 80, platelet count is 82. Serum chemistries show a sodium of 137, potassium 4.3, creatinine 0.94, calcium is 7.4, total bilirubin is 0.5, direct bilirubin is 0.3, AST is 98, ALT is 41, alk phos is 59, LDH is 233, total protein is 5.6, albumin is 2.4, AST is 4.1. IMAGING STUDIES CT angiogram and CT of the abdomen and pelvis was reviewed. ASSESSMENT AND PLAN This is a 56-year-old male with a history of significant alcohol abuse, liver cirrhosis and liver disease who presents with abdominal pain. 1. Chronic abdominal pain with acute exacerbation. He apparently had an ultrasound of the abdomen outpatient which found portal vein thrombosis. He had a CT abdomen and pelvis here at [place], did not reveal any portal thrombosis however he does have enlarged liver and liver cirrhosis. The patient was on anticoagulation with Lovenox on admission. Upon my exam the patient is complaining of significant abdominal pain. We need to obtain a CT angiogram of the abdomen to assess portal circulation. If he is found to have portal thrombosis, he will need to be continued on anticoagulation however long-term anticoagulation is somewhat questionable in this individual. I did discuss with him extensively that if he is placed on long-term anticoagulation he will need to abstain from drinking alcohol. Nevertheless, we will proceed with getting a CT angiogram of the abdomen, continue anticoagulation with heparin. 2. Thrombocytopenia. This does not appear to be heparin-induced thrombocytopenia. He has significant liver disease and this is secondary to liver disease and consumption, check a DIC panel. His panel was ordered by the primary team, that is pending. If it does come back positive, we will need a serotonin release assay for confirmation. We will continue to anticoagulate him for the time being; however, if his platelet count drops below 50,000 then we will stop anticoagulation. 3. Advanced stage liver disease with liver cirrhosis. 4. History of alcohol abuse. 5. Anemia which is borderline microcytic. Obtain anemia study. Check a stool hemoccult. GI is already following the patient. Thank you for allowing me to participate in the care of this patient. I will continue to follow this patient along. MD DARIN Lechuga/JUAN CARLOS /12:39 AM /9:38 AM
[2016-09-19 13:09] LABS: APTT (PATIENT) 80.1 SEC (24.3-30.1)
[2016-09-19 13:23] LABS: HEPARIN AB OD 0.284 O.D. (0.000-0.300); HEPARIN INDUCED PLATELET AB NEGATIVE (NEGATIVE)
--- NOTE | 2016-09-19 15:39 | HHI.GIFU ---
Subjective Remarks Resting in bed. No n/v. Significant ascites, but abdomen soft. Has drainage bag over paracentesis site and this is draining a moderate amount of ascitic fluid. (Yumiko Vale) Objective Vitals I&O Vital Signs Date Time Temp Pulse Resp B/P Pulse Ox O2 Delivery O2 Flow Rate FiO2 09/19/16 14:00 69 09/19/16 13:19 20 09/19/16 12:00 99.6 79 17 104/63 100 09/19/16 12:00 79 09/19/16 10:14 100 Nasal Cannula 4.00 09/19/16 10:00 90 09/19/16 08:00 98.0 66 10 107/60 100 09/19/16 08:00 67 09/19/16 07:00 100 Partial Non-Rebreather 15.00 09/19/16 06:00 98 09/19/16 04:00 106 09/19/16 04:00 98.9 106 16 108/60 97 09/19/16 02:00 70 09/19/16 00:00 74 09/19/16 00:00 100.0 74 12 105/57 98 09/18/16 22:00 108 09/18/16 20:10 97 Partial Rebreather 12.00 09/18/16 20:00 99.6 92 23 113/63 97 09/18/16 20:00 92 09/18/16 19:00 97 Partial Non-Rebreather 15.00 09/18/16 18:00 90 09/18/16 16:30 99.4 82 14 106/57 100 09/18/16 16:00 99.4 92 26 111/60 96 09/18/16 16:00 92 09/18/16 16:00 99.4 92 26 111/60 96 I/O 09/18/16 09/18/16 09/18/16 09/19/16 09/19/16 09/19/16 07:00 15:00 23:00 07:00 15:00 23:00 Intake Total 1118 ml 2222 ml 1525 ml 1246 ml 2673 ml Output Total 400 ml 2075 ml 1380 ml 2000 ml 1950 ml Balance 718 ml 147 ml 145 ml -754 ml 723 ml Intake Oral 800 ml 1875 ml 950 ml 1000 ml 2160 ml IV Total 318 ml 347 ml 575 ml 246 ml 513 ml Output Urine Total 300 ml 1950 ml 1300 ml 1850 ml 1825 ml Drainage Total 100 ml 125 ml 80 ml 150 ml 125 ml # Bowel Movements 0 0 0 Laboratory Laboratory Tests Test 09/18/16 09/19/16 09/19/16 20:18 04:04 12:23 White Blood Count 5.7 5.9 Red Blood Count 3.06 3.40 Hemoglobin 8.0 8.8 Hematocrit 24.6 27.3 Mean Corpuscular Volume 80.5 80.3 Mean Corpuscular Hemoglobin 26.2 25.8 Mean Corpuscular Hemoglobin 32.6 32.2 Concent Red Cell Distribution Width 17.6 17.1 Platelet Count 82 81 Mean Platelet Volume 9.6 9.5 Prothrombin Time 12.4 12.3 Prothromb Time International 1.1 1.1 Ratio Activated Partial 27.7 48.5 80.1 Thromboplast Time Neutrophils (%) (Auto) 73.9 Lymphocytes (%) (Auto) 15.3 Monocytes (%) (Auto) 9.6 Eosinophils (%) (Auto) 0.8 Basophils (%) (Auto) 0.4 Neutrophils # (Auto) 4.4 Lymphocytes # (Auto) 0.9 Monocytes # (Auto) 0.6 Eosinophils # (Auto) 0.0 Basophils # (Auto) 0.0 CBC Comment DIFF FINAL Differential Comment Sodium Level 136 Potassium Level 3.7 Chloride Level 102 Carbon Dioxide Level 26.0 Anion Gap 8 Blood Urea Nitrogen 17 Creatinine 0.79 Estimat Glomerular Filtration 101 Rate Random Glucose 140 Calcium Level 7.6 Magnesium Level 1.6 Total Bilirubin 1.2 Direct Bilirubin 0.5 Indirect Bilirubin 0.7 Aspartate Amino Transf 65 (AST/SGOT) Alanine Aminotransferase 38 (ALT/SGPT) Alkaline Phosphatase 62 Total Protein 6.2 Albumin 2.5 Date/Time Procedure Status Source Growth 09/17/16 12:20 Gram Stain - Final Resulted Fluid Peritoneal Fluid 09/17/16 12:20 Body Fluid Culture - Preliminary Resulted Fluid Peritoneal Fluid NO GROWTH IN 48 HOURS. 09/17/16 02:55 Aerobic Blood Culture - Preliminary Resulted Blood Peripheral NO GROWTH IN 2 DAYS 09/17/16 02:55 Anaerobic Blood Culture - Preliminary Resulted Blood Peripheral NO GROWTH IN 2 DAYS Imaging Last Impressions Chest X-Ray 09/19/16 0600 Signed Impressions: Service Date/Time: Monday, September 19, 2016 05:25 - CONCLUSION: Residual, but improved, airspace opacities bilateral lower lungs. Raad Pulido MD Abdomen CTA 09/19/16 0000 Signed Impressions: Service Date/Time: Monday, September 19, 2016 02:31 - CONCLUSION: 1. Atherosclerotic calcification at the origin of the SMA and of the distal common aorta without significant luminal narrowing. 2. Significant increase in size of bilateral pleural effusions when compared to 09/17/[address] Angiography 09/17/16 0251 Signed Impressions: Service Date/Time: August 05:06 - CONCLUSION: No evidence of pulmonary embolism Raúl Cortez MD Abdomen/Pelvis CT 09/17/16 0000 Signed Impressions: Service Date/Time: August 05:06 - CONCLUSION: Markedly cirrhotic liver appearance. Cavernous transformation of the portal vein. Moderate ascites. Raúl Cortez MD Physical Exam HEENT: Normocephalic; atraumatic; no jaundice. Throat is clear. NECK: Neck is supple, no JVD, no lymphadenopathy. CHEST: CTA. CARDIAC: RRR. ABDOMEN: Soft, moderately distended with ascites, but soft. Drainage bag to old paracentesis site draining ascitic fluid, nontender; hepatosplenomegaly; bowel sounds are present in all four quadrants EXTREMITIES: BLE SKIN: Normal; no rash; no jaundice. WOOD CUT ENGRAVER: No focal deficits; alert and oriented times three. (Yumiko Vale [facility]) Assessment and Plan Plan ASSESSMENT: - Cirrhosis- hx of heavy alcohol intake, quit 8 months ago, presented to the ED for abd pain, swelling and shortness of breath. MELD (Gabriel 5, UNOS 8), CHELY negative, AFP 4.1, iron 17, ferritin 7, iron % 3.4, ASMA negative, celiac negative, alpha 1 antitrypsin 178. Ceruloplasmin pending. He was told in the past that he has a hint of cirrhosis, not sure what work up if any was done, he initially was following with Dr. Jimenes, but was seen in our office in November of 2015 and had work up for hep-c and that came back negative. He had a colonoscopy in (12/23/15) ----> some stools, other ash normal. CT showed Markedly cirrhotic liver appearance. Cavernous transformation of the portal vein. Moderate ascites. CTA of the chest no PE. He repots constipation in the past few days, weight gain of about 16 ibs in the past month. He denies nausea, vomiting, hematemesis, hematochezia or melena. - Ascites. S/P s/p paracentesis (09/17/16) with removal of 4700 ml, he currently has a bag on the left side of the abd in the site of drainage and with some clear straw out put. Denies bleeding, nausea or vomiting, cytology pending, peritoneal labs revealed WBC 367, Cx negative, SAAG 1.7 which indicates portal hypertension as the likely cause. Draining some ascitic fluid at site of paracentesis. - Anemia- no bleeding reported, HH 8.8/27.3. - Portal vein thrombosis, acute- CT as above, He denies nausea, vomiting, hematemesis, hematochezia or melena. Lovenox stopped. - Hep-c- our office records indicate negative viral load and PCR - HTN, DM per attending Plan: - Plan for egd/colonoscopy on Wednesday - Obtain consents - Clear liquids - NPO after MN - Golytely prep Wednesday - Await cytology - Cont. Lasix/Aldactone - cont. PPI - Supportive care - Patient seen and examined by Dr. Maciel and myself and this note is written on his behalf. (Yumiko Vale) Physician Comments Seen and examined with ms. Akanksha HARMAN, egd/colonoscopy planned for wednesday. Bowel prep tomorrow. (Rhonda Maciel MD) Yumiko Vale Sep 19, 2016 15:39 Rhonda Maciel MD Sep 19, 2016 18:53
[2016-09-19] MEDS ORDERED: NOREPINEPHRINE 4 MG/4 ML AMP ONE (18:10)
[2016-09-19] MEDS: ALPRAZolam 1 MG TAB PO PRN (20:32)
[2016-09-20] VITALS (20 sets, daily range): BP systolic 112–141; BP diastolic 61–83; PULSE 67–103; RESP 18–21; TEMP 98.1–99.2; O2SAT 95–100
[2016-09-20] MEDS: ACETAMINOPHEN/HYDROcodone 325 MG/10 MG TAB PO PRN ×4 (00:25→17:30)
[2016-09-20] MEDS: AZITHROMYCIN INJ 500 MG in SODIUM CHLOR 0.9% 250 ML INJ 250 ML IV SCH ×2 (03:48→05:13)
[2016-09-20] MEDS: CHLORHEXIDINE GLUCONATE 2 % 1 PACK (2 CLOTHS) TOP SCH (03:48)
[2016-09-20] MEDS: RESP: ALBUTEROL 2.5 MG/IPRATROPIUM 0.5 MG NEB (SCH) INH ×6 (04:54→23:15)
[2016-09-20] MEDS: CEFEPIME INJ 1,000 MG in SODIUM CHLORIDE 0.9% INJ 100 ML IV SCH ×3 (05:00→20:28)
[2016-09-20] MEDS: MORPHINE SULFATE 4 MG/ML INJ IV PRN ×3 (05:16→20:27)
[2016-09-20 05:43] LABS: AUTOMATED NEUTROPHIL # 2.7 TH/MM3 (1.8-7.7); BASOPHIL % 0.9 % (0.0-2.0); EOSINOPHIL # 0.1 TH/MM3 (0-0.4); EOSINOPHIL % 2.6 % (0.0-4.0); HEMATOCRIT 28.2 % (39.0-51.0); LYMPH % 20.4 % (9.0-44.0); LYMPHOCYTE # 0.9 TH/MM3 (1.0-4.8); MEAN CELL VOLUME 81.1 FL (80.0-100.0); MEAN CORPUSCULAR HEMOGLOBIN 25.6 PG (27.0-34.0); MEAN CORPUSCULAR HGB CONC 31.6 % (32.0-36.0); MONO % 12.8 % (0.0-8.0); NEUT % 63.3 % (16.0-70.0); PLATELET COUNT 90 TH/MM3 (150-450); RED BLOOD COUNT 3.47 MIL/MM3 (4.50-5.90); RED CELL DISTRIBUTION WIDTH 17.7 % (11.6-17.2); WHITE BLOOD COUNT 4.2 TH/MM3 (4.0-11.0)
[2016-09-20 05:53] LABS: HEMO FLAGS AUTO DIFF
[2016-09-20 05:57] LABS: APTT (PATIENT) 30.8 SEC (24.3-30.1); INTERNATIONAL NORMALIZED RATIO 1.1 RATIO
[2016-09-20 06:24] LABS: ALKALINE PHOSPHATASE 60 U/L (45-117); ALT (GPT) 34 U/L (12-78); ANION GAP 9 MEQ/L (5-15); AST (GOT) 51 U/L (15-37); BLOOD UREA NITROGEN 14 MG/DL (7-18); CHLORIDE 101 MEQ/L (98-107); GLOMERULAR FILTRATION RATE 89 ML/MIN (>89); MAGNESIUM 1.7 MG/DL (1.5-2.5); POTASSIUM 3.7 MEQ/L (3.5-5.1); SODIUM (NA) 138 MEQ/L (136-145)
[2016-09-20] MEDS: INSULIN NovoLIN REGULAR SUPPLEMENTAL SCALE SQ SCH ×4 (06:36→20:29)
[2016-09-20 09:00] LABS: PLATELET ESTIMATE SMEAR LOW (NORMAL); PLATELET MORPHOLOGY NORMAL (NORMAL); SCAN/DIFF AUTO DIFF CONFIRMED; TARGET CELLS 1+ (NORMAL)
--- NOTE | 2016-09-20 09:28 | PD.ONC.PN ---
Subjective Subjective Remarks feels okay less dyspneic no bleeding. Objective Data Date Time Temp Pulse Resp B/P Pulse Ox O2 Delivery O2 Flow Rate FiO2 09/20/16 07:33 98 Nasal Cannula 3.00 09/20/16 06:00 70 09/20/16 05:00 71 09/20/16 04:00 99.2 67 20 112/63 96 09/20/16 04:00 67 09/20/16 03:00 74 09/20/16 02:00 85 09/20/16 00:00 95 09/20/16 00:00 99.1 95 21 140/63 95 09/19/16 22:00 116 09/19/16 21:04 95 Nasal Cannula 4.00 09/19/16 20:00 100.1 78 21 124/64 94 09/19/16 20:00 94 Nasal Cannula 4.00 09/19/16 20:00 78 09/19/16 18:00 81 09/19/16 16:00 83 09/19/16 16:00 98.5 83 21 137/67 96 09/19/16 14:00 69 09/19/16 13:19 20 09/19/16 12:00 99.6 79 17 104/63 100 09/19/16 12:00 79 09/19/16 10:35 14 09/19/16 10:14 100 Nasal Cannula 4.00 09/19/16 10:00 90 09/20/16 09/20/16 09/20/16 07:00 15:00 23:00 Intake Total 540 ml Output Total 500 ml Balance 40 ml Result Diagram: 09/20/1628 09/20/16527 Laboratory Results Laboratory Tests Test 09/19/16 09/20/16 12:23 05:28 Activated Partial 80.1 SEC 30.8 SEC Thromboplast Time White Blood Count 4.2 TH/MM3 Red Blood Count 3.47 MIL/MM3 Hemoglobin 8.9 GM/DL Hematocrit 28.2 % Mean Corpuscular Volume 81.1 FL Mean Corpuscular Hemoglobin 25.6 PG Mean Corpuscular Hemoglobin 31.6 % Concent Red Cell Distribution Width 17.7 % Platelet Count 90 TH/MM3 Mean Platelet Volume 9.4 FL Neutrophils (%) (Auto) 63.3 % Lymphocytes (%) (Auto) 20.4 % Monocytes (%) (Auto) 12.8 % Eosinophils (%) (Auto) 2.6 % Basophils (%) (Auto) 0.9 % Neutrophils # (Auto) 2.7 TH/MM3 Lymphocytes # (Auto) 0.9 TH/MM3 Monocytes # (Auto) 0.5 TH/MM3 Eosinophils # (Auto) 0.1 TH/MM3 Basophils # (Auto) 0.0 TH/MM3 CBC Comment AUTO DIFF Differential Comment AUTO DIFF CONFIRMED Platelet Estimate LOW Platelet Morphology Comment NORMAL Target Cells 1+ Prothrombin Time 12.0 SEC Prothromb Time International 1.1 RATIO Ratio Sodium Level 138 MEQ/L Potassium Level 3.7 MEQ/L Chloride Level 101 MEQ/L Carbon Dioxide Level 28.0 MEQ/L Anion Gap 9 MEQ/L Blood Urea Nitrogen 14 MG/DL Creatinine 0.88 MG/DL Estimat Glomerular Filtration 89 ML/MIN Rate Random Glucose 126 MG/DL Calcium Level 7.8 MG/DL Phosphorus Level 2.5 MG/DL Magnesium Level 1.7 MG/DL Total Bilirubin 1.0 MG/DL Aspartate Amino Transf 51 U/L (AST/SGOT) Alanine Aminotransferase 34 U/L (ALT/SGPT) Alkaline Phosphatase 60 U/L Total Protein 6.3 GM/DL Albumin 2.4 GM/DL Vitamin B12 Level 299 PG/ML Culture Results Microbiology Date/Time Procedure Status Source Growth 09/17/16 12:20 Gram Stain - Final Complete Fluid Peritoneal Fluid 09/17/16 12:20 Body Fluid Culture - Final Complete Fluid Peritoneal Fluid NO GROWTH IN 72 HRS.--AEROBICALLY OR ... Administered Medications Medications (Trade) Dose Ordered Sig/Jez Route PRN Reason Start Time Stop Time Status Last Admin Dose Admin IV Flush (NS Flush) 2 ml BID IV FLUSH 09/17/16 09:00 09/19/16 20:34 Pantoprazole Sodium (Protonix Inj) 40 mg DAILY IV 09/17/16 09:00 09/19/16 09:04 Senna/Docusate Sodium 2 tab 2 tab BID PO 09/17/16 09:00 09/19/16 20:32 Cefepime HCl 1000 mg/Sodium Chloride 100 ml @ 200 mls/hr Q8H IV 09/17/16 13:00 09/20/16 05:00 Azithromycin/ Sodium Chloride (Zithromax Inj/ NS 250 ml Inj) 250 ml @ 250 mls/hr Q24H IV 09/18/16 05:00 09/20/16 05:13 Spironolactone (Aldactone) 100 mg DAILY PO 09/18/16 09:00 09/19/16 09:04 Morphine Sulfate (Morphine Inj) 2 mg Q4H PRN IV PAIN SCALE 1-10 09/17/16 11:15 09/20/16 05:16 Amlodipine Besylate (Norvasc) 5 mg DAILY PO 09/18/16 09:00 09/19/16 09:05 Baclofen (Lioresal) 20 mg TID PO 09/18/16 09:00 09/19/16 16:16 Buspirone HCl (Buspar) 10 mg TID PO 09/18/16 09:00 09/19/16 16:16 Pregabalin (Lyrica) 300 mg TID PO 09/18/16 09:00 09/19/16 16:16 Alprazolam (Xanax) 1 mg HS PRN PO MILD ANXIETY 09/17/16 20:45 09/19/16 20:32 Acetaminophen/ Hydrocodone Bitart (Deford 10-325 Mg) 1 tab Q4H PRN PO PAIN SCALE 4 TO 10 09/17/16 20:45 09/20/16 05:17 Furosemide 40 mg 40 mg Q12H IV PUSH 09/18/16 21:00 09/19/16 20:33 Iron Sucrose/ Sodium Chloride (Venofer Inj/NS Inj) 110 ml @ 110 mls/hr DAILY IV 09/19/16 09:00 09/21/16 09:59 09/19/16 09:04 Objective Remarks GENERAL: nad SKIN: Warm and dry. NECK: Supple, trachea midline. No JVD or lymphadenopathy. LYMPHATIC: No adenopathy. CARDIOVASCULAR: Regular rate and rhythm without murmurs. RESPIRATORY: Breath sounds equal bilaterally. No accessory muscle use. GASTROINTESTINAL: Abdomen soft, non-tender, distended EXT; no e/e/c Assessment/Plan Problem List: (1) Portal vein thrombosis Status: Acute (2) Hypoxia Status: Acute (3) Pneumonia Status: Acute Assessment 56-year-old male with a history of significant alcohol abuse, liver cirrhosis and liver disease who presents with abdominal pain. 1. Chronic abdominal pain with acute exacerbation. - CTA abdomen does not show any portal thrombosis - Stop heparin 3. Advanced stage liver disease with liver cirrhosis. 4. History of alcohol abuse. 5. Anemia which is borderline microcytic. - Iron deficient. start Iron infusions - Check stool hemoccult. GI is already following the patient. 6. Thrombocytopenia due to liver disease/cirrhosis/consumption - PLt 81 - does not appear to be HIT D/w rn. Problem Qualifiers (1) Pneumonia: Qualified Code: J18.9 - Pneumonia of both lungs due to infectious organism, unspecified part of lung Delfino Heredia MD Sep 20, 2016 09:28
[2016-09-20] MEDS: DOCUSATE SODIUM 50 MG/SENNA 8.6 MG TAB PO SCH ×2 (09:36→20:28)
[2016-09-20] MEDS: busPIRone HCL 10 MG TAB PO SCH ×3 (09:36→17:30)
[2016-09-20] MEDS: amLODIPine BESYLATE 5 MG TAB PO SCH (09:36)
[2016-09-20] MEDS: PREGABALIN 100 MG CAP PO SCH ×3 (09:37→17:30)
--- NOTE | 2016-09-20 11:07 | HHI.PR ---
Subjective Remarks In bed, say she feels much better today. SOB improved. No n/v/d/c. Objective Vitals Vital Signs Date Time Temp Pulse Resp B/P Pulse Ox O2 Delivery O2 Flow Rate FiO2 09/20/16 07:33 98 Nasal Cannula 3.00 09/20/16 06:00 70 09/20/16 05:00 71 09/20/16 04:00 99.2 67 20 112/63 96 09/20/16 04:00 67 09/20/16 03:00 74 09/20/16 02:00 85 09/20/16 00:00 95 09/20/16 00:00 99.1 95 21 140/63 95 09/19/16 22:00 116 09/19/16 21:04 95 Nasal Cannula 4.00 09/19/16 20:00 100.1 78 21 124/64 94 09/19/16 20:00 94 Nasal Cannula 4.00 09/19/16 20:00 78 09/19/16 18:00 81 09/19/16 16:00 83 09/19/16 16:00 98.5 83 21 137/67 96 09/19/16 14:00 69 09/19/16 13:19 20 09/19/16 12:00 99.6 79 17 104/63 100 09/19/16 12:00 79 I/O 09/19/16 09/19/16 09/19/16 09/20/16 09/20/16 09/20/16 07:00 15:00 23:00 07:00 15:00 23:00 Intake Total 1246 ml 2673 ml 620 ml 540 ml Output Total 2000 ml 1950 ml 800 ml 500 ml Balance -754 ml 723 ml -180 ml 40 ml Intake Oral 1000 ml 2160 ml 620 ml 240 ml IV Total 246 ml 513 ml 300 ml Output Urine Total 1850 ml 1825 ml 800 ml 500 ml Drainage Total 150 ml 125 ml # Bowel Movements 0 0 1 Result Diagram: 09/20/1652709/20/16527 Imaging Last Impressions Chest X-Ray 09/19/16 06 Signed Impressions: Service Date/Time: Monday, September 19, 2016 05:25 - CONCLUSION: Residual, but improved, airspace opacities bilateral lower lungs. Raad Pulido MD Abdomen CTA 09/19/16 0000 Signed Impressions: Service Date/Time: Monday, September 19, 2016 02:31 - CONCLUSION: 1. Atherosclerotic calcification at the origin of the SMA and of the distal common aorta without significant luminal narrowing. 2. Significant increase in size of bilateral pleural effusions when compared to 09/17/[address] Angiography 09/17/16 0251 Signed Impressions: Service Date/Time: August 05:06 - CONCLUSION: No evidence of pulmonary embolism Raúl Cortez MD Abdomen/Pelvis CT 09/17/16 0000 Signed Impressions: Service Date/Time: August 05:06 - CONCLUSION: Markedly cirrhotic liver appearance. Cavernous transformation of the portal vein. Moderate ascites. Raúl Cortez MD Objective Remarks GENERAL: Middle-aged male, chronically ill, lying in bed, doesn't appear in distress HEENT: Pupils equal, round, reactive. Mucous membranes are moist. NECK: Trachea is midline. NRB. No JVD. CHEST: Tachypneic. Mildly labored. Equal chest rise. Bilateral crackles and few rhonchi CARDIOVASCULAR: Normal rate, regular rhythm. No appreciable murmurs. ABDOMEN: Protuberant, soft, distended. Positive fluid wave. No guarding. s/p paracentesis with 4.7 L of fluid removed 09/17/16 MUSCULOSKELETAL: Distal pulses 2+. No peripheral edema. NEUROLOGICAL: RASS -1. Follows commands in all 4 extremities. No focal deficits Awake and alert A/P Assessment and Plan Portal vein thrombosis per imaging on admission. CTA abd does not reveal portal vein thrombosis Acute hypoxic respiratory failure Pulmonary edema Acute Intravascular volume overload PFO with R to L shunt Thrombocytopenia, due to consumpion Liver cirrhosis. Plan for colonoscopy 09/21 Large ascites H/o alcohol use COPD Anemia iron deficiency. Start IV iron. Hem onc following Plan: Neuro: Awake and alert, avoid sedatives. On BuSpar and Lyrica Pulm: Wean down oxygen as ignacio keep sat >92% Bronchodilators CV: -Monitor HR and BP keep MAP>65mmHg On Norvasc 5mg daily --DAMARIS once more stable resp ash Re: PFO with R to L shunt. Consult Dr. Hernandez on Wednesday for evaluation for closure : Monitor renal function, I/O's, electrolytes replacement per protocol. GI: On PO diet Status post paracentesis with 4.7 L removed 09/17/16. Continue IV Lasix 40mg Q12 and Aldactone 100mg daily - plan for colonoscopy 09/21 Heme: Monitor CBC, Coags-DC heparin as per CTA abd no portal vein thrombosis. Follow up on Hep PLT ab. -With RAMANDEEP, start IV iron supplement ID: Continue with abx ( Cefepime, Zithromax)monitor for signs of infections ( Fever, WBC) 09/17 BC: NGTD 09/17 Fluid cx: NGTD Endo: On SSI ( medium) for glycemic control GI prophylaxis- on Protonix 40mg daily DVT prophylaxis- SCD/TEds Isi Bertrand MD Sep 20, 2016 11:07
[2016-09-20] MEDS: BACLOFEN 20 MG TAB PO SCH ×2 (13:15→17:30)
[2016-09-20] MEDS: SODIUM CHLORIDE 0.9% FLUSH 5 ML FLUSH IV FLUSH SCH ×2 (13:16→20:30)
[2016-09-20] MEDS: IRON SUCROSE INJ 200 MG in SODIUM CHLORIDE 0.9% INJ 100 ML IV SCH (13:18)
[2016-09-20] MEDS: FUROSEMIDE 40 MG/4 ML VIAL IV PUSH SCH ×2 (13:22→20:28)
[2016-09-20] MEDS: PANTOPRAZOLE SODIUM 40 MG VIAL IV SCH (13:22)
[2016-09-20] MEDS: SPIRONOLACTONE 100 MG TAB PO SCH (13:22)
[2016-09-20 15:53] LABS: MITOCHONDRIAL ABS LESS THAN 20.0 U (())
[2016-09-20] MEDS ORDERED: PEG (High)/E-LYTE SOLN 4000 ML BTL PO ONE (16:00)
[2016-09-20] MEDS: ALPRAZolam 1 MG TAB PO PRN (20:28)
[2016-09-21] VITALS (23 sets, daily range): BP systolic 110–159; BP diastolic 58–82; PULSE 32–84; RESP 16–20; TEMP 97.8–99.1; O2SAT 93–98
[2016-09-21] MEDS: RESP: ALBUTEROL 2.5 MG/IPRATROPIUM 0.5 MG NEB (SCH) INH (03:44)
[2016-09-21] MEDS: CHLORHEXIDINE GLUCONATE 2 % 1 PACK (2 CLOTHS) TOP SCH (04:00)
[2016-09-21] MEDS: CEFEPIME INJ 1,000 MG in SODIUM CHLORIDE 0.9% INJ 100 ML IV SCH ×3 (04:32→22:06)
[2016-09-21] MEDS: MORPHINE SULFATE 4 MG/ML INJ IV PRN ×5 (04:33→22:05)
[2016-09-21] MEDS: ACETAMINOPHEN/HYDROcodone 325 MG/10 MG TAB PO PRN (04:33)
[2016-09-21] MEDS: AZITHROMYCIN INJ 500 MG in SODIUM CHLOR 0.9% 250 ML INJ 250 ML IV SCH (05:05)
[2016-09-21 05:09] LABS: AUTOMATED NEUTROPHIL # 1.7 TH/MM3 (1.8-7.7); BASOPHIL % 1.1 % (0.0-2.0); EOSINOPHIL # 0.1 TH/MM3 (0-0.4); EOSINOPHIL % 3.4 % (0.0-4.0); HEMATOCRIT 24.3 % (39.0-51.0); LYMPH % 24.6 % (9.0-44.0); LYMPHOCYTE # 0.7 TH/MM3 (1.0-4.8); MEAN CELL VOLUME 80.7 FL (80.0-100.0); MEAN CORPUSCULAR HEMOGLOBIN 25.5 PG (27.0-34.0); MEAN CORPUSCULAR HGB CONC 31.6 % (32.0-36.0); MONO % 12.6 % (0.0-8.0); NEUT % 58.3 % (16.0-70.0); PLATELET COUNT 84 TH/MM3 (150-450); RED BLOOD COUNT 3.02 MIL/MM3 (4.50-5.90); RED CELL DISTRIBUTION WIDTH 17.7 % (11.6-17.2); WHITE BLOOD COUNT 2.9 TH/MM3 (4.0-11.0)
[2016-09-21 05:17] LABS: APTT (PATIENT) 29.5 SEC (24.3-30.1); PROTHROMBIN TIME - PATIENT 11.6 SEC (9.8-11.6)
[2016-09-21 05:23] LABS: HEMO FLAGS AUTO DIFF
[2016-09-21 05:30] LABS: POTASSIUM 3.7 MEQ/L (3.5-5.1)
[2016-09-21 05:32] LABS: INDIRECT BILIRUBIN 0.3 MG/DL (0.0-0.8); TOTAL BILIRUBIN ADULT 0.7 MG/DL (0.2-1.0)
[2016-09-21] MEDS: INSULIN NovoLIN REGULAR SUPPLEMENTAL SCALE SQ SCH ×4 (06:06→22:09)
[2016-09-21 07:52] LABS: PLATELET ESTIMATE SMEAR LOW (NORMAL); PLATELET MORPHOLOGY NORMAL (NORMAL); SCAN/DIFF AUTO DIFF CONFIRMED
[2016-09-21] MEDS: FUROSEMIDE 40 MG/4 ML VIAL IV PUSH SCH ×2 (08:50→22:08)
[2016-09-21] MEDS: PANTOPRAZOLE SODIUM 40 MG VIAL IV SCH (08:50)
[2016-09-21] MEDS: busPIRone HCL 10 MG TAB PO SCH ×3 (08:50→17:18)
[2016-09-21] MEDS: SPIRONOLACTONE 100 MG TAB PO SCH (08:51)
[2016-09-21] MEDS: amLODIPine BESYLATE 5 MG TAB PO SCH (08:51)
[2016-09-21] MEDS: BACLOFEN 20 MG TAB PO SCH ×3 (08:51→17:18)
[2016-09-21] MEDS: PREGABALIN 100 MG CAP PO SCH ×3 (08:51→17:18)
[2016-09-21] MEDS: IRON SUCROSE INJ 200 MG in SODIUM CHLORIDE 0.9% INJ 100 ML IV SCH ×2 (08:54→09:00)
[2016-09-21] MEDS: DOCUSATE SODIUM 50 MG/SENNA 8.6 MG TAB PO SCH ×2 (08:54→22:09)
[2016-09-21] MEDS: SODIUM CHLORIDE 0.9% FLUSH 5 ML FLUSH IV FLUSH SCH ×2 (08:54→22:07)
--- NOTE | 2016-09-21 09:18 | HHI.PR ---
Subjective Remarks Sleepy. Says he is breathing better. Abdominal pain controlled by meds. No n/v/d /c. NPO Objective Vitals Vital Signs Date Time Temp Pulse Resp B/P Pulse Ox O2 Delivery O2 Flow Rate FiO2 09/21/16 08:07 80 09/21/16 07:51 Nasal Cannula 3.00 50 09/21/16 06:00 65 09/21/16 05:00 61 09/21/16 04:00 63 09/21/16 03:54 98.4 63 18 133/74 97 09/21/16 03:54 Nasal Cannula 3.00 09/21/16 03:46 98 Nasal Cannula 3.00 09/21/16 03:00 69 09/21/16 02:00 65 09/21/16 01:00 70 09/21/16 00:00 74 09/21/16 00:00 98.6 75 20 129/79 98 09/21/16 00:00 Nasal Cannula 3.00 09/20/16 23:18 97 Nasal Cannula 3.00 09/20/16 23:00 81 09/20/16 22:00 79 09/20/16 21:00 75 09/20/16 20:00 Nasal Cannula 3.00 09/20/16 20:00 74 09/20/16 20:00 99.0 74 18 112/66 96 09/20/16 19:13 98 Nasal Cannula 3.00 09/20/16 16:00 98.6 78 20 141/83 100 09/20/16 16:00 73 09/20/16 12:00 67 09/20/16 12:00 98.1 77 20 115/61 98 09/20/16 11:00 75 09/20/16 10:00 103 I/O 09/20/16 09/20/16 09/20/16 09/21/16 09/21/16 09/21/16 07:00 15:00 23:00 07:00 15:00 23:00 Intake Total 540 ml 2100 ml 0 ml Output Total 500 ml 1400 ml Balance 40 ml 700 ml 0 ml Intake Oral 240 ml 2000 ml IV Total 300 ml 100 ml 0 ml Output Urine Total 500 ml 1100 ml Drainage Total 300 ml # Bowel Movements 1 9 Result Diagram: 09/21/1641909/21/16419 Imaging Last Impressions Chest X-Ray 09/19/16 0600 Signed Impressions: Service Date/Time: Monday, September 19, 2016 05:25 - CONCLUSION: Residual, but improved, airspace opacities bilateral lower lungs. Raad Pulido MD Abdomen CTA 09/19/16 0000 Signed Impressions: Service Date/Time: Monday, September 19, 2016 02:31 - CONCLUSION: 1. Atherosclerotic calcification at the origin of the SMA and of the distal common aorta without significant luminal narrowing. 2. Significant increase in size of bilateral pleural effusions when compared to 09/17/[address] Angiography 09/17/16 0251 Signed Impressions: Service Date/Time: August 05:06 - CONCLUSION: No evidence of pulmonary embolism Raúl Cortez MD Abdomen/Pelvis CT 09/17/16 0000 Signed Impressions: Service Date/Time: August 05:06 - CONCLUSION: Markedly cirrhotic liver appearance. Cavernous transformation of the portal vein. Moderate ascites. Raúl Cortez MD Objective Remarks GENERAL: Middle-aged male, chronically ill, lying in bed, doesn't appear in distress HEENT: Pupils equal, round, reactive. Mucous membranes are moist. NECK: Trachea is midline. NRB. No JVD. CHEST: Tachypneic. Mildly labored. Equal chest rise. Bilateral crackles and few rhonchi CARDIOVASCULAR: Normal rate, regular rhythm. No appreciable murmurs. ABDOMEN: Protuberant, soft, distended. Positive fluid wave. No guarding. s/p paracentesis with 4.7 L of fluid removed 09/17/16 MUSCULOSKELETAL: Distal pulses 2+. No peripheral edema. NEUROLOGICAL: RASS -1. Follows commands in all 4 extremities. No focal deficits Awake and alert A/P Assessment and Plan Portal vein thrombosis per imaging on admission. CTA abd does not reveal portal vein thrombosis Acute hypoxic respiratory failure Pulmonary edema Acute Intravascular volume overload PFO with R to L shunt Thrombocytopenia, due to consumption Liver cirrhosis. Plan for colonoscopy 09/21 Large ascites H/o alcohol use COPD Anemia iron deficiency. Start IV iron. Hem onc following Plan: Neuro: Awake and alert, avoid sedatives. On BuSpar and Lyrica Pulm: Wean down oxygen as ignacio keep sat >92% Bronchodilators CV: -Monitor HR and BP keep MAP>65mmHg On Norvasc 5mg daily --DAMARIS once more stable resp ash Re: PFO with R to L shunt. Consult Dr. Hernandez on Wednesday for evaluation for closure : Monitor renal function, I/O's, electrolytes replacement per protocol. GI: On PO diet Status post paracentesis with 4.7 L removed 09/17/16. Continue IV Lasix 40mg Q12 and Aldactone 100mg daily - plan for colonoscopy 09/21 Heme: Monitor CBC, Coags-DC heparin as per CTA abd no portal vein thrombosis. Follow up on Hep PLT ab. -Iron deficiency anemia, received venofer ID: Continue with abx ( Cefepime, Zithromax)monitor for signs of infections ( Fever, WBC) 09/17 BC: NGTD 09/17 Fluid cx: NGTD Endo: On SSI ( medium) for glycemic control GI prophylaxis- on Protonix 40mg daily DVT prophylaxis- SCD/TEds Isi Bertrand MD Sep 21, 2016 09:17
--- NOTE | 2016-09-21 11:31 | PD.ONC.PN ---
Subjective Subjective Remarks feels weak. no bleeding tolerated iron infusions d/w rn Objective Data Date Time Temp Pulse Resp B/P Pulse Ox O2 Delivery O2 Flow Rate FiO2 09/21/16 09:55 98.4 84 16 138/75 98 09/21/16 09:49 98.0 80 18 134/74 98 09/21/16 08:07 80 09/21/16 07:51 Nasal Cannula 3.00 50 09/21/16 06:00 65 09/21/16 05:00 61 09/21/16 04:00 63 09/21/16 03:54 98.4 63 18 133/74 97 09/21/16 03:54 Nasal Cannula 3.00 09/21/16 03:46 98 Nasal Cannula 3.00 09/21/16 03:00 69 09/21/16 02:00 65 09/21/16 01:00 70 09/21/16 00:00 74 09/21/16 00:00 98.6 75 20 129/79 98 09/21/16 00:00 Nasal Cannula 3.00 09/20/16 23:18 97 Nasal Cannula 3.00 09/20/16 23:00 81 09/20/16 22:00 79 09/20/16 21:00 75 09/20/16 20:00 Nasal Cannula 3.00 09/20/16 20:00 74 09/20/16 20:00 99.0 74 18 112/66 96 09/20/16 19:13 98 Nasal Cannula 3.00 09/20/16 16:00 98.6 78 20 141/83 100 09/20/16 16:00 73 09/20/16 12:00 67 09/20/16 12:00 98.1 77 20 115/61 98 09/21/16 09/21/16 09/21/16 07:00 15:00 23:00 Intake Total 2100 ml 0 ml Output Total 1400 ml Balance 700 ml 0 ml Result Diagram: 09/21/1641909/21/16419 Laboratory Results Laboratory Tests Test 09/21/16 04:20 White Blood Count 2.9 TH/MM3 Red Blood Count 3.02 MIL/MM3 Hemoglobin 7.7 GM/DL Hematocrit 24.3 % Mean Corpuscular Volume 80.7 FL Mean Corpuscular Hemoglobin 25.5 PG Mean Corpuscular Hemoglobin 31.6 % Concent Red Cell Distribution Width 17.7 % Platelet Count 84 TH/MM3 Mean Platelet Volume 9.8 FL Neutrophils (%) (Auto) 58.3 % Lymphocytes (%) (Auto) 24.6 % Monocytes (%) (Auto) 12.6 % Eosinophils (%) (Auto) 3.4 % Basophils (%) (Auto) 1.1 % Neutrophils # (Auto) 1.7 TH/MM3 Lymphocytes # (Auto) 0.7 TH/MM3 Monocytes # (Auto) 0.4 TH/MM3 Eosinophils # (Auto) 0.1 TH/MM3 Basophils # (Auto) 0.0 TH/MM3 CBC Comment AUTO DIFF Differential Comment AUTO DIFF CONFIRMED Platelet Estimate LOW Platelet Morphology Comment NORMAL Prothrombin Time 11.6 SEC Prothromb Time International 1.0 RATIO Ratio Activated Partial 29.5 SEC Thromboplast Time Sodium Level 140 MEQ/L Potassium Level 3.7 MEQ/L Chloride Level 104 MEQ/L Carbon Dioxide Level 30.0 MEQ/L Anion Gap 6 MEQ/L Blood Urea Nitrogen 15 MG/DL Creatinine 0.67 MG/DL Estimat Glomerular Filtration 122 ML/MIN Rate Random Glucose 106 MG/DL Calcium Level 7.8 MG/DL Total Bilirubin 0.7 MG/DL Direct Bilirubin 0.4 MG/DL Indirect Bilirubin 0.3 MG/DL Aspartate Amino Transf 52 U/L (AST/SGOT) Alanine Aminotransferase 34 U/L (ALT/SGPT) Alkaline Phosphatase 62 U/L Total Protein 5.6 GM/DL Albumin 2.2 GM/DL Administered Medications Medications (Trade) Dose Ordered Sig/Jez Route PRN Reason Start Time Stop Time Status Last Admin Dose Admin IV Flush (NS Flush) 2 ml BID IV FLUSH 09/17/16 09:00 09/21/16 08:54 Pantoprazole Sodium (Protonix Inj) 40 mg DAILY IV 09/17/16 09:00 09/21/16 08:50 Senna/Docusate Sodium 2 tab 2 tab BID PO 09/17/16 09:00 09/20/16 20:28 Cefepime HCl 1000 mg/Sodium Chloride 100 ml @ 200 mls/hr Q8H IV 09/17/16 13:00 09/21/16 04:32 Azithromycin/ Sodium Chloride (Zithromax Inj/ NS 250 ml Inj) 250 ml @ 250 mls/hr Q24H IV 09/18/16 05:00 09/21/16 05:05 Spironolactone (Aldactone) 100 mg DAILY PO 09/18/16 09:00 09/21/16 08:51 Morphine Sulfate (Morphine Inj) 2 mg Q4H PRN IV PAIN SCALE 1-10 09/17/16 11:15 09/21/16 09:00 Amlodipine Besylate (Norvasc) 5 mg DAILY PO 09/18/16 09:00 09/21/16 08:51 Baclofen (Lioresal) 20 mg TID PO 09/18/16 09:00 09/21/16 08:51 Buspirone HCl (Buspar) 10 mg TID PO 09/18/16 09:00 09/21/16 08:50 Pregabalin (Lyrica) 300 mg TID PO 09/18/16 09:00 09/21/16 08:51 Alprazolam (Xanax) 1 mg HS PRN PO MILD ANXIETY 09/17/16 20:45 09/20/16 20:28 Acetaminophen/ Hydrocodone Bitart (Poyntelle 10-325 Mg) 1 tab Q4H PRN PO PAIN SCALE 4 TO 10 09/17/16 20:45 09/21/16 04:33 Furosemide (Lasix Inj) 40 mg Q12H IV PUSH 09/18/16 21:00 09/21/16 08:50 Objective Remarks GENERAL: nad SKIN: Warm and dry. HEAD: Normocephalic. LYMPHATIC: No adenopathy. CARDIOVASCULAR: Regular rate and rhythm without murmurs. RESPIRATORY: Breath sounds equal bilaterally. No accessory muscle use. GASTROINTESTINAL: Abdomen soft, distended EXTREMITIES: No cyanosis, or edema. Assessment/Plan Problem List: (1) Portal vein thrombosis Status: Acute (2) Hypoxia Status: Acute (3) Pneumonia Status: Acute Assessment 56-year-old male with a history of significant alcohol abuse, liver cirrhosis and liver disease who presents with abdominal pain. 1. Chronic abdominal pain with acute exacerbation. - CTA abdomen does not show any portal thrombosis - heparin stopped 2. Advanced stage liver disease with liver cirrhosis. 3. History of alcohol abuse. 4. Iron deficiency Anemia - Receiving Iron infusions - drop in Hemoglobin today. Transfuse 1 unit of pRBC for symptomatic anemia - Check stool hemoccult. GI is already following the patient. 5. Thrombocytopenia due to liver disease/cirrhosis/consumption - PLt 84 - HIT antibody negative Problem Qualifiers (1) Pneumonia: Qualified Code: J18.9 - Pneumonia of both lungs due to infectious organism, unspecified part of lung Delfino Heredia MD Sep 21, 2016 11:31
[2016-09-21] MEDS: CYANOCOBALAMIN 1000 MCG/ML VIAL IM SCH (13:17)
[2016-09-21] MEDS ORDERED: PROPOFOL 200 MG/20 ML AMP IV ONE (15:13)
[2016-09-21] MEDS: ALPRAZolam 1 MG TAB PO PRN (23:55)
[2016-09-22] VITALS (17 sets, daily range): BP systolic 130–151; BP diastolic 70–90; PULSE 55–75; RESP 14–18; TEMP 98–98.4; O2SAT 94–98
[2016-09-22] MEDS: CHLORHEXIDINE GLUCONATE 2 % 1 PACK (2 CLOTHS) TOP SCH (04:00)
[2016-09-22] MEDS: AZITHROMYCIN INJ 500 MG in SODIUM CHLOR 0.9% 250 ML INJ 250 ML IV SCH (05:00)
[2016-09-22] MEDS: CEFEPIME INJ 1,000 MG in SODIUM CHLORIDE 0.9% INJ 100 ML IV SCH ×3 (05:01→21:27)
[2016-09-22] MEDS: MORPHINE SULFATE 4 MG/ML INJ IV PRN ×2 (06:05→17:24)
[2016-09-22] MEDS: INSULIN NovoLIN REGULAR SUPPLEMENTAL SCALE SQ SCH ×4 (06:33→21:26)
[2016-09-22 07:44] LABS: HEMATOCRIT 30.7 % (39.0-51.0); MEAN CELL VOLUME 80.7 FL (80.0-100.0); MEAN CORPUSCULAR HGB CONC 32.2 % (32.0-36.0); PLATELET COUNT 106 TH/MM3 (150-450); RED BLOOD COUNT 3.81 MIL/MM3 (4.50-5.90); REVIEW FLAG FINAL; WHITE BLOOD COUNT 3.4 TH/MM3 (4.0-11.0)
[2016-09-22 07:52] LABS: APTT (PATIENT) 30.4 SEC (24.3-30.1); INTERNATIONAL NORMALIZED RATIO 1.1 RATIO; PROTHROMBIN TIME - PATIENT 11.7 SEC (9.8-11.6)
[2016-09-22 08:13] LABS: BICARBONATE 28.4 MEQ/L (21.0-32.0); POTASSIUM 4.2 MEQ/L (3.5-5.1)
--- NOTE | 2016-09-22 08:14 | HHI.PR ---
Subjective Remarks Received 1 prbc yesterday as low hgb. Less sob. No n/v/d/c. Feels weak. Pain is controlled by meds. Objective Vitals Vital Signs Date Time Temp Pulse Resp B/P Pulse Ox O2 Delivery O2 Flow Rate FiO2 09/22/16 07:43 Nasal Cannula 3.00 50 09/22/16 07:43 68 09/22/16 04:56 98.3 66 14 145/75 94 09/22/16 04:50 Nasal Cannula 3.00 09/22/16 02:59 64 09/21/16 23:56 Nasal Cannula 3.00 09/21/16 23:56 98.2 82 18 159/76 93 09/21/16 22:59 74 09/21/16 21:16 96 Nasal Cannula 2.00 09/21/16 20:15 99.1 74 16 140/82 97 09/21/16 20:15 Nasal Cannula 3.00 09/21/16 19:00 68 09/21/16 18:10 32 09/21/16 17:12 98.0 62 18 118/78 96 09/21/16 17:08 98.0 60 18 118/80 98 09/21/16 16:02 72 09/21/16 14:04 72 09/21/16 12:07 58 09/21/16 12:07 97.8 57 18 110/58 96 09/21/16 12:00 58 16 96/56 93 09/21/16 11:50 60 16 92/54 93 09/21/16 11:41 98.7 57 16 98/51 96 09/21/16 09:55 98.4 84 16 138/75 98 09/21/16 09:49 98.0 80 18 134/74 98 I/O 09/21/16 09/21/16 09/21/16 09/22/16 09/22/16 09/22/16 07:00 15:00 23:00 07:00 15:00 23:00 Intake Total 2100 ml 500 ml 0 ml Output Total 1400 ml Balance 700 ml 500 ml 0 ml Intake Oral 2000 ml IV Total 100 ml 200 ml 0 ml Other 300 ml Output Urine Total 1100 ml Drainage Total 300 ml # Bowel Movements 9 Result Diagram: 09/22/1655 09/22/1655 Imaging Last Impressions Chest X-Ray 09/19/16 0600 Signed Impressions: Service Date/Time: Monday, September 19, 2016 05:25 - CONCLUSION: Residual, but improved, airspace opacities bilateral lower lungs. Raad Pulido MD Abdomen CTA 09/19/16 0000 Signed Impressions: Service Date/Time: Monday, September 19, 2016 02:31 - CONCLUSION: 1. Atherosclerotic calcification at the origin of the SMA and of the distal common aorta without significant luminal narrowing. 2. Significant increase in size of bilateral pleural effusions when compared to 09/17/[address] Angiography 09/17/16 0251 Signed Impressions: Service Date/Time: August 05:06 - CONCLUSION: No evidence of pulmonary embolism Raúl Cortez MD Abdomen/Pelvis CT 09/17/16 0000 Signed Impressions: Service Date/Time: August 05:06 - CONCLUSION: Markedly cirrhotic liver appearance. Cavernous transformation of the portal vein. Moderate ascites. Raúl Cortez MD Objective Remarks GENERAL: Middle-aged male, chronically ill, lying in bed, doesn't appear in distress HEENT: Pupils equal, round, reactive. Mucous membranes are moist. NECK: Trachea is midline. NRB. No JVD. CHEST: Tachypneic. Mildly labored. Equal chest rise. Bilateral crackles and few rhonchi CARDIOVASCULAR: Normal rate, regular rhythm. No appreciable murmurs. ABDOMEN: Protuberant, soft, distended. Positive fluid wave. No guarding. s/p paracentesis with 4.7 L of fluid removed 09/17/16 MUSCULOSKELETAL: Distal pulses 2+. No peripheral edema. NEUROLOGICAL: RASS -1. Follows commands in all 4 extremities. No focal deficits Awake and alert A/P Assessment and Plan Portal vein thrombosis per imaging on admission. CTA abd does not reveal portal vein thrombosis Acute hypoxic respiratory failure Pulmonary edema Acute Intravascular volume overload PFO with R to L shunt Thrombocytopenia, due to consumption Liver cirrhosis. Plan for colonoscopy 09/21 Large ascites H/o alcohol use COPD Anemia iron deficiency. Start IV iron. Hem onc following Plan: Neuro: Awake and alert, avoid sedatives. On BuSpar and Lyrica Pulm: Wean down oxygen as ignacio keep sat >92% Bronchodilators CV: -Monitor HR and BP keep MAP>65mmHg On Norvasc 5mg daily --DAMARIS once more stable resp ash Re: PFO with R to L shunt. Consult Dr. Hernandez on Wednesday for evaluation for closure : Monitor renal function, I/O's, electrolytes replacement per protocol. GI: On PO diet Status post paracentesis with 4.7 L removed 09/17/16. Continue IV Lasix 40mg Q12 and Aldactone 100mg daily - panendoscopy 09/21: grade 2 esophageal varices, gastric antrum gastritis, diverticulosis, hemorrhoids, however poor prep Heme: Monitor CBC, Coags-DC heparin as per CTA abd no portal vein thrombosis. Follow up on Hep PLT ab. -Iron deficiency anemia, received venofer - Received 1 PRBC 09/21/16 as ow hgb. Repeat HGB 09/22 of 9.9 ID: Continue with abx ( Cefepime, Zithromax)monitor for signs of infections ( Fever, WBC) 09/17 BC: NGTD 09/17 Fluid cx: NGTD Endo: On SSI ( medium) for glycemic control GI prophylaxis- on Protonix 40mg daily DVT prophylaxis- SCD/TEds DC when improved and cleared by consultants Isi Bertrand MD Sep 22, 2016 08:14
[2016-09-22 08:15] LABS: INDIRECT BILIRUBIN 0.6 MG/DL (0.0-0.8); TOTAL BILIRUBIN ADULT 1.1 MG/DL (0.2-1.0)
[2016-09-22] MEDS: FUROSEMIDE 40 MG/4 ML VIAL IV PUSH SCH ×2 (08:34→21:25)
[2016-09-22] MEDS: SODIUM CHLORIDE 0.9% FLUSH 5 ML FLUSH IV FLUSH SCH ×2 (08:34→21:25)
[2016-09-22] MEDS: CYANOCOBALAMIN 1000 MCG/ML VIAL IM SCH (08:34)
[2016-09-22] MEDS: PANTOPRAZOLE SODIUM 40 MG VIAL IV SCH (08:34)
[2016-09-22] MEDS: PREGABALIN 100 MG CAP PO SCH ×3 (08:35→17:23)
[2016-09-22] MEDS: busPIRone HCL 10 MG TAB PO SCH ×3 (08:35→17:23)
[2016-09-22] MEDS: amLODIPine BESYLATE 5 MG TAB PO SCH (08:35)
[2016-09-22] MEDS: SPIRONOLACTONE 100 MG TAB PO SCH (08:35)
[2016-09-22] MEDS: DOCUSATE SODIUM 50 MG/SENNA 8.6 MG TAB PO SCH ×2 (08:35→21:25)
[2016-09-22] MEDS: ACETAMINOPHEN/HYDROcodone 325 MG/10 MG TAB PO PRN ×3 (08:35→21:25)
[2016-09-22] MEDS: BACLOFEN 20 MG TAB PO SCH ×3 (08:36→17:23)
[2016-09-22] MEDS ORDERED: SPIR100T PO (10:46)
[2016-09-22] MEDS ORDERED: FURO40TA PO (10:46)
[2016-09-22] MEDS ORDERED: B12-1CHW CHEW (10:46)
[2016-09-22] MEDS ORDERED: PANT40TA3 PO (10:47)
--- NOTE | 2016-09-22 10:47 | HHI.DCPOC ---
Discharge Care Plan Goals to Promote Your Health * To prevent worsening of your condition and complications * To maintain your health at the optimal level Directions to Meet Your Goals Take your medications as prescribed Follow your dietary instruction Follow activity as directed Keep your appointments as scheduled Take your immunizations and boosters as scheduled If your symptoms worsen call your PCP, if no PCP go to Urgent Care Center or Emergency Room Smoking is Dangerous to Your Health. Avoid second hand smoke Call the 24-hour hour crisis hotline for domestic abuse at Isi Bertrand MD Sep 22, 2016 10:47
--- NOTE | 2016-09-22 14:06 | HHI.GIFU ---
Subjective Remarks Resting in bed. No bleeding. Ascites much improved. No n/v. No abdominal pain. (Yumiko Vale) Objective Vitals I&O Vital Signs Date Time Temp Pulse Resp B/P Pulse Ox O2 Delivery O2 Flow Rate FiO2 09/22/16 13:56 98.0 68 18 130/70 98 09/22/16 12:47 65 09/22/16 10:41 66 09/22/16 10:32 97 Nasal Cannula 2.00 09/22/16 09:07 98.0 68 18 148/72 98 09/22/16 08:40 68 09/22/16 07:43 Nasal Cannula 3.00 50 09/22/16 07:43 68 09/22/16 04:56 98.3 66 14 145/75 94 09/22/16 04:50 Nasal Cannula 3.00 09/22/16 02:59 64 09/21/16 23:56 Nasal Cannula 3.00 09/21/16 23:56 98.2 82 18 159/76 93 09/21/16 22:59 74 09/21/16 21:16 96 Nasal Cannula 2.00 09/21/16 20:15 99.1 74 16 140/82 97 09/21/16 20:15 Nasal Cannula 3.00 09/21/16 19:00 68 09/21/16 18:10 32 09/21/16 17:12 98.0 62 18 118/78 96 09/21/16 17:08 98.0 60 18 118/80 98 09/21/16 16:02 72 09/21/16 14:04 72 I/O 09/21/16 09/21/16 09/21/16 09/22/16 09/22/16 09/22/16 07:00 15:00 23:00 07:00 15:00 23:00 Intake Total 2100 ml 500 ml 480 ml 240 ml 0 ml Output Total 1400 ml 2675 ml Balance 700 ml 500 ml 480 ml -2435 ml 0 ml Intake Oral 2000 ml Oral Supplement 480 ml IV Total 100 ml 200 ml 0 ml 240 ml 0 ml Other 300 ml Output Urine Total 1100 ml 2675 ml Drainage Total 300 ml # Bowel Movements 9 Laboratory Laboratory Tests Test 09/22/16 06:55 White Blood Count 3.4 Red Blood Count 3.81 Hemoglobin 9.9 Hematocrit 30.7 Mean Corpuscular Volume 80.7 Mean Corpuscular Hemoglobin 26.0 Mean Corpuscular Hemoglobin 32.2 Concent Red Cell Distribution Width 18.0 Platelet Count 106 Mean Platelet Volume 9.5 Prothrombin Time 11.7 Prothromb Time International 1.1 Ratio Activated Partial 30.4 Thromboplast Time Sodium Level 137 Potassium Level 4.2 Chloride Level 101 Carbon Dioxide Level 28.4 Anion Gap 8 Blood Urea Nitrogen 12 Creatinine 0.77 Estimat Glomerular Filtration 104 Rate Random Glucose 143 Calcium Level 8.3 Total Bilirubin 1.1 Direct Bilirubin 0.5 Indirect Bilirubin 0.6 Aspartate Amino Transf 66 (AST/SGOT) Alanine Aminotransferase 43 (ALT/SGPT) Alkaline Phosphatase 93 Total Protein 6.4 Albumin 2.5 Imaging Last Impressions Chest X-Ray 09/19/16 0600 Signed Impressions: Service Date/Time: Monday, September 19, 2016 05:25 - CONCLUSION: Residual, but improved, airspace opacities bilateral lower lungs. Raad Pulido MD Abdomen CTA 09/19/16 0000 Signed Impressions: Service Date/Time: Monday, September 19, 2016 02:31 - CONCLUSION: 1. Atherosclerotic calcification at the origin of the SMA and of the distal common aorta without significant luminal narrowing. 2. Significant increase in size of bilateral pleural effusions when compared to 09/17/[address] Angiography 09/17/16 0251 Signed Impressions: Service Date/Time: August 05:06 - CONCLUSION: No evidence of pulmonary embolism Raúl Cortez MD Abdomen/Pelvis CT 09/17/16 0000 Signed Impressions: Service Date/Time: August 05:06 - CONCLUSION: Markedly cirrhotic liver appearance. Cavernous transformation of the portal vein. Moderate ascites. Raúl Cortez MD Physical Exam HEENT: Normocephalic; atraumatic; no jaundice. Throat is clear. NECK: Neck is supple, no JVD, no lymphadenopathy. CHEST: CTA. CARDIAC: RRR. ABDOMEN: Soft, nondistended, Drainage bag to old paracentesis site- not currently draining, nontender; hepatosplenomegaly; bowel sounds are present in all four quadrants. Mild ascites EXTREMITIES: BLE SKIN: Normal; no rash; no jaundice. FACILITIES CLERK: No focal deficits; alert and oriented times three. (Vale,Yumiko Casillas [facility]) Assessment and Plan Plan ASSESSMENT: - Cirrhosis- hx of heavy alcohol intake, quit 8 months ago, presented to the ED for abd pain, swelling and shortness of breath. MELD (Gabriel 5, UNOS 8), CHELY negative, AFP 4.1, iron 17, ferritin 7, iron % 3.4, ASMA negative, celiac negative, alpha 1 antitrypsin 178. Ceruloplasmin 25. He was told in the past that he has a hint of cirrhosis, not sure what work up if any was done, he initially was following with Dr. Jimenes, but was seen in our office in November of 2015 and had work up for hep-c and that came back negative. He had a colonoscopy in (12/23/15) ----> some stools, other ash normal. CT showed Markedly cirrhotic liver appearance. Cavernous transformation of the portal vein. Moderate ascites. CTA of the chest no PE. He repots constipation in the past few days, weight gain of about 16 ibs in the past month. He denies nausea, vomiting, hematemesis, hematochezia or melena. - Ascites. S/P s/p paracentesis (09/17/16) with removal of 4700 ml, he currently has a bag on the left side of the abd in the site of drainage and with some clear straw out put. Denies bleeding, nausea or vomiting, cytology pending, peritoneal labs revealed WBC 367, Cx negative, SAAG 1.7 which indicates portal hypertension as the likely cause. Much improved. Lasix, Spironolactone. - Anemia- no bleeding reported, HH 9.9/30.7. S/P EGD/Colonoscopy (09/21/16)--- > Gastritis in the antrum, esophageal varices grade 2, retroflexion revealed hiatal hernia, semisolid stool in right and left colon , retroflexed views revealed medium internal hemorrhoids, external hemorrhoids. Will need repeat colonoscopy in 3 months. - Portal vein thrombosis, acute- CT as above, He denies nausea, vomiting, hematemesis, hematochezia or melena. - Hep-c- our office records indicate negative viral load and PCR - HTN, DM per attending Plan: - Low salt diet - Cont. Lasix/Aldactone - Cont. PPI - Will need Colonoscopy in 3 months - Patient seen and examined by Dr. Minor and myself and this note is written on her behalf. (Yumiko Vale) Yumiko Vale Sep 22, 2016 14:06 Jody Minor MD Sep 23, 2016 15:27
--- NOTE | 2016-09-22 16:39 | PD.ONC.PN ---
Subjective Subjective Remarks transferred out of the ICU feels better today no bleeding breathing better denies any pain Objective Data Date Time Temp Pulse Resp B/P Pulse Ox O2 Delivery O2 Flow Rate FiO2 09/22/16 16:16 60 09/22/16 16:16 09/22/16 14:01 68 09/22/16 13:56 98.0 68 18 130/70 98 09/22/16 12:47 65 09/22/16 10:41 66 09/22/16 10:32 97 Nasal Cannula 2.00 09/22/16 09:07 98.0 68 18 148/72 98 09/22/16 08:40 68 09/22/16 07:43 Nasal Cannula 3.00 50 09/22/16 07:43 68 09/22/16 04:56 98.3 66 14 145/75 94 09/22/16 04:50 Nasal Cannula 3.00 09/22/16 02:59 64 09/21/16 23:56 Nasal Cannula 3.00 09/21/16 23:56 98.2 82 18 159/76 93 09/21/16 22:59 74 09/21/16 21:16 96 Nasal Cannula 2.00 09/21/16 20:15 99.1 74 16 140/82 97 09/21/16 20:15 Nasal Cannula 3.00 09/21/16 19:00 68 09/21/16 18:10 32 09/21/16 17:12 98.0 62 18 118/78 96 09/21/16 17:08 98.0 60 18 118/80 98 09/22/16 09/22/16 09/22/16 07:00 15:00 23:00 Intake Total 240 ml 1100 ml Output Total 2675 ml Balance -2435 ml 1100 ml Result Diagram: 09/22/16 0655 09/22/16 0655 Laboratory Results Laboratory Tests Test 09/22/16 06:55 White Blood Count 3.4 TH/MM3 Red Blood Count 3.81 MIL/MM3 Hemoglobin 9.9 GM/DL Hematocrit 30.7 % Mean Corpuscular Volume 80.7 FL Mean Corpuscular Hemoglobin 26.0 PG Mean Corpuscular Hemoglobin 32.2 % Concent Red Cell Distribution Width 18.0 % Platelet Count 106 TH/MM3 Mean Platelet Volume 9.5 FL Prothrombin Time 11.7 SEC Prothromb Time International 1.1 RATIO Ratio Activated Partial 30.4 SEC Thromboplast Time Sodium Level 137 MEQ/L Potassium Level 4.2 MEQ/L Chloride Level 101 MEQ/L Carbon Dioxide Level 28.4 MEQ/L Anion Gap 8 MEQ/L Blood Urea Nitrogen 12 MG/DL Creatinine 0.77 MG/DL Estimat Glomerular Filtration 104 ML/MIN Rate Random Glucose 143 MG/DL Calcium Level 8.3 MG/DL Total Bilirubin 1.1 MG/DL Direct Bilirubin 0.5 MG/DL Indirect Bilirubin 0.6 MG/DL Aspartate Amino Transf 66 U/L (AST/SGOT) Alanine Aminotransferase 43 U/L (ALT/SGPT) Alkaline Phosphatase 93 U/L Total Protein 6.4 GM/DL Albumin 2.5 GM/DL Administered Medications Medications (Trade) Dose Ordered Sig/Jez Route PRN Reason Start Time Stop Time Status Last Admin Dose Admin IV Flush (NS Flush) 2 ml BID IV FLUSH 09/17/16 09:00 09/22/16 08:34 Pantoprazole Sodium (Protonix Inj) 40 mg DAILY IV 09/17/16 09:00 09/22/16 08:34 Senna/Docusate Sodium 2 tab 2 tab BID PO 09/17/16 09:00 09/22/16 08:35 Cefepime HCl 1000 mg/Sodium Chloride 100 ml @ 200 mls/hr Q8H IV 09/17/16 13:00 09/22/16 13:06 Azithromycin/ Sodium Chloride (Zithromax Inj/ NS 250 ml Inj) 250 ml @ 250 mls/hr Q24H IV 09/18/16 05:00 09/22/16 05:00 Spironolactone (Aldactone) 100 mg DAILY PO 09/18/16 09:00 09/22/16 08:35 Morphine Sulfate (Morphine Inj) 2 mg Q4H PRN IV PAIN SCALE 1-10 09/17/16 11:15 09/22/16 06:05 Amlodipine Besylate (Norvasc) 5 mg DAILY PO 09/18/16 09:00 09/22/16 08:35 Baclofen (Lioresal) 20 mg TID PO 09/18/16 09:00 09/22/16 13:06 Buspirone HCl (Buspar) 10 mg TID PO 09/18/16 09:00 09/22/16 13:06 Pregabalin (Lyrica) 300 mg TID PO 09/18/16 09:00 09/22/16 13:06 Alprazolam (Xanax) 1 mg HS PRN PO MILD ANXIETY 09/17/16 20:45 09/21/16 23:55 Acetaminophen/ Hydrocodone Bitart ([place] 10-325 Mg) 1 tab Q4H PRN PO PAIN SCALE 4 TO 10 09/17/16 20:45 09/22/16 13:06 Furosemide (Lasix Inj) 40 mg Q12H IV PUSH 09/18/16 21:00 09/22/16 08:34 Cyanocobalamin (Vitamin B12 Inj) 1,000 mcg DAILY IM 09/21/16 13:00 09/28/16 12:59 09/22/16 08:34 Objective Remarks GENERAL: nad SKIN: Warm and dry. HEAD: Normocephalic.. LYMPHATIC: No adenopathy. CARDIOVASCULAR: Regular rate and rhythm without murmurs. RESPIRATORY: Breath sounds equal bilaterally. No accessory muscle use. GASTROINTESTINAL: Abdomen soft, non-tender, diffusely tender EXTREMITIES: No cyanosis, or edema. Assessment/Plan Problem List: (1) Portal vein thrombosis Status: Acute (2) Hypoxia Status: Acute (3) Pneumonia Status: Acute Assessment 56-year-old male with a history of significant alcohol abuse, liver cirrhosis and liver disease who presents with abdominal pain. 1. Chronic abdominal pain with acute exacerbation. - CTA abdomen does not show any portal thrombosis - heparin stopped 2. Advanced stage liver disease with liver cirrhosis. 3. History of alcohol abuse. 4. Iron deficiency Anemia - Receiving Iron infusions -Received 1 unit of pRBC. Hb9.9 - Check stool hemoccult. GI is already following the patient. 5. Thrombocytopenia due to liver disease/cirrhosis/consumption - PLt 106 - HIT antibody negative Problem Qualifiers (1) Pneumonia: Qualified Code: J18.9 - Pneumonia of both lungs due to infectious organism, unspecified part of lung Delfino Heredia MD Sep 22, 2016 16:39
[2016-09-23] VITALS (10 sets, daily range): BP systolic 133–158; BP diastolic 72–83; PULSE 57–87; RESP 12–20; TEMP 96.9–98.2; O2SAT 94–98
[2016-09-23] MEDS: MORPHINE SULFATE 4 MG/ML INJ IV PRN ×2 (00:13→05:04)
[2016-09-23] MEDS: ALPRAZolam 1 MG TAB PO PRN (00:37)
[2016-09-23] MEDS: ACETAMINOPHEN/HYDROcodone 325 MG/10 MG TAB PO PRN ×2 (02:42→12:09)
[2016-09-23] MEDS: CHLORHEXIDINE GLUCONATE 2 % 1 PACK (2 CLOTHS) TOP SCH (04:00)
[2016-09-23] MEDS: CEFEPIME INJ 1,000 MG in SODIUM CHLORIDE 0.9% INJ 100 ML IV SCH ×2 (05:03→12:09)
[2016-09-23] MEDS: AZITHROMYCIN INJ 500 MG in SODIUM CHLOR 0.9% 250 ML INJ 250 ML IV SCH (06:00)
[2016-09-23] MEDS: INSULIN NovoLIN REGULAR SUPPLEMENTAL SCALE SQ SCH ×2 (06:02→11:00)
[2016-09-23 06:52] LABS: HEMATOCRIT 29.7 % (39.0-51.0); MEAN CELL VOLUME 82.9 FL (80.0-100.0); MEAN CORPUSCULAR HEMOGLOBIN 26.1 PG (27.0-34.0); MEAN CORPUSCULAR HGB CONC 31.5 % (32.0-36.0); PLATELET COUNT 110 TH/MM3 (150-450); RED BLOOD COUNT 3.59 MIL/MM3 (4.50-5.90); RED CELL DISTRIBUTION WIDTH 18.1 % (11.6-17.2); REVIEW FLAG FINAL; WHITE BLOOD COUNT 2.8 TH/MM3 (4.0-11.0)
[2016-09-23 07:03] LABS: BICARBONATE 29.8 MEQ/L (21.0-32.0); POTASSIUM 4.1 MEQ/L (3.5-5.1)
[2016-09-23] MEDS: PREGABALIN 100 MG CAP PO SCH ×2 (08:55→12:09)
[2016-09-23] MEDS: SPIRONOLACTONE 100 MG TAB PO SCH (08:55)
[2016-09-23] MEDS: BACLOFEN 20 MG TAB PO SCH ×2 (08:55→12:09)
[2016-09-23] MEDS: amLODIPine BESYLATE 5 MG TAB PO SCH (08:55)
[2016-09-23] MEDS: busPIRone HCL 10 MG TAB PO SCH ×2 (08:55→12:09)
[2016-09-23] MEDS: DOCUSATE SODIUM 50 MG/SENNA 8.6 MG TAB PO SCH (08:56)
[2016-09-23] MEDS: FUROSEMIDE 40 MG/4 ML VIAL IV PUSH SCH (08:56)
[2016-09-23] MEDS: CYANOCOBALAMIN 1000 MCG/ML VIAL IM SCH (08:57)
[2016-09-23] MEDS: PANTOPRAZOLE SODIUM 40 MG VIAL IV SCH (08:57)
[2016-09-23] MEDS: SODIUM CHLORIDE 0.9% FLUSH 5 ML FLUSH IV FLUSH SCH (08:57)
--- NOTE | 2016-09-23 10:46 | HHI.PR ---
Subjective Remarks Feel smuch better. No sob, ambulates without sob. No t on O2. No fever, chills. No n/v/d/c. Objective Vitals Vital Signs Date Time Temp Pulse Resp B/P Pulse Ox O2 Delivery O2 Flow Rate FiO2 09/23/16 10:07 98 Nasal Cannula 2.00 09/23/16 08:35 98 21 09/23/16 06:00 73 09/23/16 05:00 57 09/23/16 04:00 87 09/23/16 04:00 96.9 62 12 157/80 96 09/23/16 03:00 73 09/23/16 02:00 60 09/23/16 01:00 57 09/23/16 00:00 63 09/23/16 00:00 97.6 70 20 158/83 97 09/22/16 23:00 74 09/22/16 22:00 62 09/22/16 21:00 75 09/22/16 20:00 59 09/22/16 20:00 98.4 72 16 151/90 98 09/22/16 19:00 98 Room Air 09/22/16 19:00 55 09/22/16 18:05 64 09/22/16 16:16 60 09/22/16 16:16 09/22/16 14:01 68 09/22/16 13:56 98.0 68 18 130/70 98 09/22/16 12:47 65 I/O 09/22/16 09/22/16 09/22/16 09/23/16 09/23/16 09/23/16 07:00 15:00 23:00 07:00 15:00 23:00 Intake Total 240 ml 1100 ml 1160 ml Output Total 2675 ml 1220 ml Balance -2435 ml 1100 ml -60 ml Intake Oral 1000 ml 960 ml IV Total 240 ml 100 ml 200 ml Output Urine Total 2675 ml 1220 ml # Voids 3 Result Diagram: 09/23/16 0550 09/23/16 0550 Imaging Last Impressions Chest X-Ray 09/19/16 0600 Signed Impressions: Service Date/Time: Monday, September 19, 2016 05:25 - CONCLUSION: Residual, but improved, airspace opacities bilateral lower lungs. Raad Pulido MD Abdomen CTA 09/19/16 0000 Signed Impressions: Service Date/Time: Monday, September 19, 2016 02:31 - CONCLUSION: 1. Atherosclerotic calcification at the origin of the SMA and of the distal common aorta without significant luminal narrowing. 2. Significant increase in size of bilateral pleural effusions when compared to 09/17/[address] Angiography 09/17/16 0251 Signed Impressions: Service Date/Time: August 05:06 - CONCLUSION: No evidence of pulmonary embolism Raúl Cortez MD Abdomen/Pelvis CT 09/17/16 0000 Signed Impressions: Service Date/Time: August 05:06 - CONCLUSION: Markedly cirrhotic liver appearance. Cavernous transformation of the portal vein. Moderate ascites. Raúl Cortez MD Objective Remarks GENERAL: Middle-aged male, chronically ill, lying in bed, doesn't appear in distress HEENT: Pupils equal, round, reactive. Mucous membranes are moist. NECK: Trachea is midline. NRB. No JVD. CHEST: Tachypneic. Mildly labored. Equal chest rise. Bilateral crackles and few rhonchi CARDIOVASCULAR: Normal rate, regular rhythm. No appreciable murmurs. ABDOMEN: Protuberant, soft, distended. Positive fluid wave. No guarding. s/p paracentesis with 4.7 L of fluid removed 09/17/16 MUSCULOSKELETAL: Distal pulses 2+. No peripheral edema. NEUROLOGICAL: RASS -1. Follows commands in all 4 extremities. No focal deficits Awake and alert A/P Assessment and Plan Portal vein thrombosis per imaging on admission. CTA abd does not reveal portal vein thrombosis Acute hypoxic respiratory failure Pulmonary edema Acute Intravascular volume overload PFO with R to L shunt. Seen by cards Dr Hernandez, recommends medical management. To follow up as OP Thrombocytopenia, due to consumption Liver cirrhosis. Plan for colonoscopy 09/21 Large ascites H/o alcohol use COPD Anemia iron deficiency. Start IV iron. Hem onc following Plan: Neuro: Awake and alert, avoid sedatives. On BuSpar and Lyrica Pulm: Wean down oxygen as ignacio keep sat >92% Bronchodilators CV: -Monitor HR and BP keep MAP>65mmHg On Norvasc 5mg daily --DAMARIS once more stable resp ash Re: PFO with R to L shunt. Consult Dr. Hernandez on Wednesday for evaluation for closure : Monitor renal function, I/O's, electrolytes replacement per protocol. GI: On PO diet Status post paracentesis with 4.7 L removed 09/17/16. Continue IV Lasix 40mg Q12 and Aldactone 100mg daily - panendoscopy 09/21: grade 2 esophageal varices, gastric antrum gastritis, diverticulosis, hemorrhoids, however poor prep Heme: Monitor CBC, Coags-DC heparin as per CTA abd no portal vein thrombosis. Follow up on Hep PLT ab. -Iron deficiency anemia, received venofer - Received 1 PRBC 09/21/16 as ow hgb. Repeat HGB 09/22 of 9.9 ID: Continue with abx ( Cefepime, Zithromax)monitor for signs of infections ( Fever, WBC) 09/17 BC: NGTD 09/17 Fluid cx: NGTD Endo: On SSI ( medium) for glycemic control GI prophylaxis- on Protonix 40mg daily DVT prophylaxis- SCD/TEds Improved, cleared by consultants. To follow up as OP with PCP and consultants. Isi Bertrand MD Sep 23, 2016 10:46
--- NOTE | 2016-09-23 12:05 | MB ---
cc: RAND RAMÍREZ DATE OF CONSULTATION: 09/23/2016 DATE OF : 1960 REASON FOR CONSULTATION Questionable PFO. HISTORY OF PRESENT ILLNESS 56-year-old male with a history significant for alcoholic cirrhosis, hypertension, hyperlipidemia, diabetes, that presented to [facility] with complaints of abdominal pain. He was found to be hypoxic. He was subsequently admitted to the ICU and started on BiPAP. On further evaluation there was a question about portal vein thrombosis, however, CTAs done here were negative for thrombosis. He has been followed by hematology/oncology as well as GI. 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 He has improved from the GI complaints and the ascites while here in the hospital. Cardiology has been consulted given a concern regarding PFO seen in the transthoracic echocardiogram. The patient denies chest pain, palpitations, syncope, CVA/TIA, shortness of breath, PND, leg edema, fevers, chills. REVIEW OF SYSTEMS The review of systems is negative except for what is mentioned in the HPI. PAST MEDICAL HISTORY 1. Alcoholic cirrhosis. 2. Hypertension. 3. Hyperlipidemia. 4. Diabetes. 5. Diabetic neuropathy. PAST SURGICAL HISTORY 1. Appendectomy. 2. Shoulder surgery. 3. Tonsillectomy. MEDICATIONS Medications at home: 1. Norvasc 5 mg p.o. daily. 2. Aspirin 325 mg p.o. daily. 3. Baclofen 20 mg p.o. daily. 4. Buspirone 10 mg p.o. t.i.d. 5. Percocet. 6. Penicillin. 7. Lyrica 500 mg p.o. t.i.d. ALLERGIES 1. NEOSPORIN. 2. POLYSPORIN. FAMILY HISTORY Significant for coronary artery disease. SOCIAL HISTORY Denies smoking or illicit drug use. He is an alcoholic. PHYSICAL EXAMINATION VITAL SIGNS: Temperature 97, respiratory rate 12, pulse 73, blood pressure 157/80. O2 sat 98% in room air. GENERAL: He is awake, alert, oriented x3, in no acute distress. NECK: No JVD. No carotid bruits. HEART: Regular rate and rhythm. No murmurs, rubs or gallops appreciated. LUNGS: Clear to auscultation bilaterally. No wheezes, rhonchi or rales. ABDOMEN: Soft, nontender. Positive bowel sounds. EXTREMITIES: No edema. No cyanosis. Pulses throughout. LABORATORY DATA CBC: Hemoglobin 9, hematocrit 29, white blood cell count 2.8, platelet count trending up from 81-176. Electrolytes: Sodium 138, potassium 4.1. BUN 13, creatinine 0.76. AST 66, ALT 43. Albumin 2.5. BNP 336. Microbiology: Blood cultures negative. IMAGING DATA Chest CTA: No pulmonary emboli. Abdomen and pelvis CT shows cirrhosis of the liver. ECHOCARDIOGRAM DATA Echocardiogram shows preserved systolic function with a question of a PFO and some thinning of the atrial septum. Negative bubble study. EKG: Sinus tachycardia with ST depressions on admission. ASSESSMENT A 56-year-old male with alcoholic cirrhosis admitted with abdominal pain and portal vein cirrhosis was ruled out. The abdominal pain was likely due to ascites which was removed with paracentesis. Cardiology was consulted due to PFO on transthoracic echocardiogram. He remains fairly hemodynamically stable. He denies any active cardiac complaints as well as any history of TIA, strokes or heart failure exacerbations. Given the patient's grade 2 esophageal varices , thrombocytopenia and anemia, I think he would not be a candidate for a DAMARIS to further evaluate this PFO. In addition, the patient is asymptomatic from the PFO no evidence of shunt or hx of cryptogenic stroke, thus clousure will not be warranted at this time. Recommendations: Continue medical treatment. Thank you for the opportunity to take part in the care of this patient. MD LAYO Delgado/ADONIS /11:13 AM /11:40 AM MARIAA
[2016-09-23] MEDS ORDERED: CEFT500T3 PO (13:59)
[2016-09-23] MEDS ORDERED: LACTCHW3 CHEW (13:59)
--- NOTE | 2016-09-23 13:59 | HHI.DS ---
Discharge Summary Admission Date Sep 17, 2016 at 05:12 Discharge Date: Sep 23, 2016 Admitting Diagnosis (1) Esophageal varices ICD Code: I85.00 Diagnosis: Principal (2) Gastritis ICD Code: K29.70 Diagnosis: Principal (3) Abscess, dental ICD Code: K04.7 Diagnosis: Principal (4) Ascites ICD Code: R18.8 Diagnosis: Principal (5) Hypoxia ICD Code: R09.02 Diagnosis: Principal (6) Pneumonia ICD Code: J18.9 Diagnosis: Secondary (7) Patent foramen ovale ICD Code: Q21.1 Diagnosis: Principal (8) Anemia ICD Code: D64.9 Diagnosis: Principal Procedures panendoscopy Brief History - From Admission This is a 56-year-old male who has a history of cirrhosis and is followed by Dr. Huerta who has been having a few weeks of chronic abdominal pain and was sent for outpatient abdominal ultrasound which reportedly demonstrated a new portal vein thrombosis. His physician called him and stated that he needed to go to the hospital to be evaluated. He initially went to the [facility] emergency department and was admitted, however he then signed out AMA and went home the lunch. After lunch he had progressive shortness of breath and abdominal pain but did not want to go back to [facility], so he came to [facility] for evaluation. The hypopharynx was noted to be severely hypoxic on room air with's SPO2 in the 70s. He was placed on BiPAP. He had some improvement with this. His labs are notable for a white blood cell count 7 , hemoglobin of 8.4, platelet count 176 creatinine of 1.1, BNP of 336, lactate of 4.6 with a normal serum bicarbonate of 23.1. Critical-care medicine was consulted to evaluate and manage his acute hypoxic CBC/BMP: 09/23/16 0550 09/23/16 0550 Significant Findings Laboratory Tests Test 09/21/16 09/22/16 09/23/16 04:20 06:55 05:50 White Blood Count 2.9 TH/MM3 3.4 TH/MM3 2.8 TH/MM3 (4.0-11.0) (4.0-11.0) (4.0-11.0) Red Blood Count 3.02 MIL/MM3 3.81 MIL/MM3 3.59 MIL/MM3 (4.50-5.90) (4.50-5.90) (4.50-5.90) Hemoglobin 7.7 GM/DL 9.9 GM/DL 9.3 GM/DL (13.0-17.0) (13.0-17.0) (13.0-17.0) Hematocrit 24.3 % 30.7 % 29.7 % (39.0-51.0) (39.0-51.0) (39.0-51.0) Mean Corpuscular Hemoglobin 25.5 PG 26.0 PG 26.1 PG (27.0-34.0) (27.0-34.0) (27.0-34.0) Mean Corpuscular Hemoglobin 31.6 % 31.5 % Concent (32.0-36.0) (32.0-36.0) Red Cell Distribution Width 17.7 % 18.0 % 18.1 % (11.6-17.2) (11.6-17.2) (11.6-17.2) Platelet Count 84 TH/MM3 106 TH/MM3 110 TH/MM3 (150-450) (150-450) (150-450) Monocytes (%) (Auto) 12.6 % (0.0-8.0) Neutrophils # (Auto) 1.7 TH/MM3 (1.8-7.7) Lymphocytes # (Auto) 0.7 TH/MM3 (1.0-4.8) Platelet Estimate LOW (NORMAL) Calcium Level 7.8 MG/DL 8.3 MG/DL (8.5-10.1) (8.5-10.1) Direct Bilirubin 0.4 MG/DL 0.5 MG/DL (0.0-0.2) (0.0-0.2) Aspartate Amino Transf 52 U/L (15-37) 66 U/L (15-37) (AST/SGOT) Total Protein 5.6 GM/DL (6.4-8.2) Albumin 2.2 GM/DL 2.5 GM/DL (3.4-5.0) (3.4-5.0) Prothrombin Time 11.7 SEC (9.8-11.6) Activated Partial 30.4 SEC Thromboplast Time (24.3-30.1) Random Glucose 143 MG/DL 140 MG/DL (74-106) (74-106) Total Bilirubin 1.1 MG/DL (0.2-1.0) Imaging Last Impressions Chest X-Ray 09/19/16 0600 Signed Impressions: Service Date/Time: Monday, September 19, 2016 05:25 - CONCLUSION: Residual, but improved, airspace opacities bilateral lower lungs. Raad Pulido MD Abdomen CTA 09/19/16 0000 Signed Impressions: Service Date/Time: Monday, September 19, 2016 02:31 - CONCLUSION: 1. Atherosclerotic calcification at the origin of the SMA and of the distal common aorta without significant luminal narrowing. 2. Significant increase in size of bilateral pleural effusions when compared to 09/17/[address] Angiography 09/17/16 0251 Signed Impressions: Service Date/Time: August 05:06 - CONCLUSION: No evidence of pulmonary embolism Raúl Cortez MD Abdomen/Pelvis CT 09/17/16 0000 Signed Impressions: Service Date/Time: August 05:06 - CONCLUSION: Markedly cirrhotic liver appearance. Cavernous transformation of the portal vein. Moderate ascites. Raúl Cortez MD PE at Discharge GENERAL: Middle-aged male, chronically ill, lying in bed, doesn't appear in distress HEENT: Pupils equal, round, reactive. Mucous membranes are moist. NECK: Trachea is midline. NRB. No JVD. CHEST: Tachypneic. Mildly labored. Equal chest rise. Bilateral crackles and few rhonchi CARDIOVASCULAR: Normal rate, regular rhythm. No appreciable murmurs. ABDOMEN: Protuberant, soft, distended. Positive fluid wave. No guarding. s/p paracentesis with 4.7 L of fluid removed 09/17/16 MUSCULOSKELETAL: Distal pulses 2+. No peripheral edema. NEUROLOGICAL: RASS -1. Follows commands in all 4 extremities. No focal deficits Awake and alert Hospital Course Portal vein thrombosis per imaging on admission. CTA abd does not reveal portal vein thrombosis Acute hypoxic respiratory failure Pulmonary edema Acute Intravascular volume overload PFO with R to L shunt. Seen by cards Dr Hernandez, recommends medical management. To follow up as OP Thrombocytopenia, due to consumption Liver cirrhosis. Plan for colonoscopy 09/21 Large ascites H/o alcohol use COPD Anemia iron deficiency. Start IV iron. Hem onc following Plan: Neuro: Awake and alert, avoid sedatives. On BuSpar and Lyrica Pulm: Wean down oxygen as ignacio keep sat >92% Bronchodilators CV: -Monitor HR and BP keep MAP>65mmHg On Norvasc 5mg daily --DAMARIS once more stable resp ash Re: PFO with R to L shunt. Consult Dr. Hernandez on Wednesday for evaluation for closure : Monitor renal function, I/O's, electrolytes replacement per protocol. GI: On PO diet Status post paracentesis with 4.7 L removed 09/17/16. Continue IV Lasix 40mg Q12 and Aldactone 100mg daily - panendoscopy 09/21: grade 2 esophageal varices, gastric antrum gastritis, diverticulosis, hemorrhoids, however poor prep. GI recommends repeat colonoscopy in 3 yr Heme: Monitor CBC, Coags-DC heparin as per CTA abd no portal vein thrombosis. Follow up on Hep PLT ab. -Iron deficiency anemia, received venofer - Received 1 PRBC 09/21/16 as ow hgb. Repeat HGB 09/22 of 9.9 ID: Continue with abx ( Cefepime, Zithromax)monitor for signs of infections ( Fever, WBC) 09/17 BC: NGTD 09/17 Fluid cx: NGTD Endo: On SSI ( medium) for glycemic control GI prophylaxis- on Protonix 40mg daily DVT prophylaxis- SCD/TEds Improved, cleared by consultants. To follow up as OP with PCP and consultants. Pt Condition on Discharge: Fair Discharge Disposition: Discharge Home Discharge Time: <= 30 minutes Discharge Instructions DIET: Follow Instructions for: Heart Healthy Diet Activities you can perform: Regular-No Restrictions Follow up Referrals: Cardiology - 1 Week with Abhishek Grady MD Gastroenterology - 2 Weeks with Jody Minor MD Oncology - 1 Week with Delfino Heredia MD PCP Follow-up - 3-5 Days New Medications: Cefuroxime (Ceftin) 500 Mg Tab 500 MG PO BID Infection #12 Ref 0 TAB Furosemide (Furosemide) 40 Mg Tab 40 MG PO DAILY ascites #30 Ref 0 TAB Lactobacillus Acidophilus (Lactinex) 1 Chew 1 TAB CHEW DAILY Nutritional Supplement #30 Ref 0 TAB Methylcobalamin (C91-Xdfqtr) 1 Mg Chew 1 MG CHEW DAILY Nutritional Supplement #30 Ref 0 TAB Pantoprazole (Pantoprazole) 40 Mg Tab 40 MG PO DAILY Reflux #30 Ref 0 TAB Spironolactone (Spironolactone) 100 Mg Tab 100 MG PO DAILY ascites #30 TAB Continued Medications: Amlodipine (Amlodipine) 5 Mg Tab 5 MG PO DAILY Blood Pressure Management #30 Ref 0 TAB Aspirin (Aspirin) 325 Mg Tab 325 MG PO DAILY #30 Ref 0 TAB Baclofen (Baclofen) 20 Mg Tab 20 MG PO TID Muscle Spasm Ref 0 TAB Buspirone (Buspirone) 10 Mg Tab 10 MG PO TID Anxiety Ref 0 TAB Hydrocodone-Acetaminophen (Hydrocodone-Acetaminophen) 10-325 mg Tab 1 TAB PO 5 TIMES A DAY PRN PAIN Ref 0 TAB Penicillin V Potassium (Penicillin V Potassium) 500 Mg Tab 500 MG PO Q6H Infection Ref 0 TAB Pregabalin (Lyrica) 300 Mg Cap 300 MG PO TID #90 Ref 0 Isi Solis MD Sep 23, 2016 13:59
--- NOTE | 2016-09-23 17:06 | PD.ONC.PN ---
Subjective Subjective Remarks Afebrile overnight. Patient sitting up in bed in no distress. He states he is currently going home soon. He has no complaints. Objective Data Date Time Temp Pulse Resp B/P Pulse Ox O2 Delivery O2 Flow Rate FiO2 09/23/16 14:00 86 09/23/16 12:23 98.2 66 19 133/72 94 09/23/16 10:07 98 Nasal Cannula 2.00 09/23/16 08:35 98 21 09/23/16 06:00 73 09/23/16 05:00 57 09/23/16 04:00 87 09/23/16 04:00 96.9 62 12 157/80 96 09/23/16 03:00 73 09/23/16 02:00 60 09/23/16 01:00 57 09/23/16 00:00 63 09/23/16 00:00 97.6 70 20 158/83 97 09/22/16 23:00 74 09/22/16 22:00 62 09/22/16 21:00 75 09/22/16 20:00 59 09/22/16 20:00 98.4 72 16 151/90 98 09/22/16 19:00 98 Room Air 09/22/16 19:00 55 09/22/16 18:05 64 09/23/16 09/23/16 09/23/16 07:00 15:00 23:00 Intake Total 1160 ml Output Total 1220 ml Balance -60 ml Result Diagram: 09/23/16 0550 09/23/16 0550 Laboratory Results Laboratory Tests Test 09/23/16 05:50 White Blood Count 2.8 TH/MM3 Red Blood Count 3.59 MIL/MM3 Hemoglobin 9.3 GM/DL Hematocrit 29.7 % Mean Corpuscular Volume 82.9 FL Mean Corpuscular Hemoglobin 26.1 PG Mean Corpuscular Hemoglobin 31.5 % Concent Red Cell Distribution Width 18.1 % Platelet Count 110 TH/MM3 Mean Platelet Volume 9.7 FL Sodium Level 138 MEQ/L Potassium Level 4.1 MEQ/L Chloride Level 102 MEQ/L Carbon Dioxide Level 29.8 MEQ/L Anion Gap 6 MEQ/L Blood Urea Nitrogen 13 MG/DL Creatinine 0.76 MG/DL Estimat Glomerular Filtration 106 ML/MIN Rate Random Glucose 140 MG/DL Calcium Level 8.6 MG/DL Objective Remarks GENERAL: Older male, sitting up in bed in no distress. SKIN: Warm and dry. HEAD: Normocephalic. EYES: No injection or drainage. NECK: Supple, trachea midline. CARDIOVASCULAR: +S1/S2. No murmur appreciated. RESPIRATORY: Lungs clear throughout. Breathing unlabored. GASTROINTESTINAL: Abdomen soft, non-tender, nondistended. EXTREMITIES: No cyanosis, or edema. NEUROLOGICAL: No obvious focal deficit. Awake, alert, and oriented x3. Assessment/Plan Problem List: (1) Portal vein thrombosis Status: Acute (2) Hypoxia Status: Acute (3) Pneumonia Status: Acute Assessment 56-year-old male with a history of significant alcohol abuse, liver cirrhosis and liver disease who presents with abdominal pain. 1. Chronic abdominal pain with acute exacerbation. - CTA abdomen does not show any portal thrombosis; heparin discontinued. 2. Advanced stage liver disease with liver cirrhosis. 3. History of alcohol abuse; encouraged to stop. 4. Iron deficiency Anemia - Hgb 9.3 today - Receiving Iron infusions -Received 1 unit of pRBC. - Labs stable 5. Thrombocytopenia due to liver disease/cirrhosis/consumption - PLt 110 - HIT antibody negative Attending Statement The exam, history, and the medical decision-making described in the above note were completed with the assistance of the mid-level provider. I reviewed and agree with the findings presented. I attest that I had a [id number] encounter with the patient on the same day, and personally performed and documented my assessment and findings in the medical record. Problem Qualifiers (1) Pneumonia: Qualified Code: J18.9 - Pneumonia of both lungs due to infectious organism, unspecified part of lung Brittnee Arthur Sep 23, 2016 17:06 Delfino Heredia MD Sep 24, 2016 00:17
== END 2016-09-23 15:47 | disposition home or self-care (01) | DRG 193 ==
LOC: NEPE 02:35 → NEDA 05:12 → N03A 08:02 → HCIS 09-20 01:08
PROVIDERS: ADMIT Hospitalist; ATTEND Hospitalist
PROC: 5A09357 Assistance with Respiratory Ventilation, Less than 24 Consecutive Hours, Continuous Positive Airway Pressure (ICD-10-PCS; principal; 2016-09-17)
PROC: 0W9G3ZX Drainage of Peritoneal Cavity, Percutaneous Approach, Diagnostic (ICD-10-PCS; 2016-09-17)
PROC: 30233N1 Transfusion of Nonautologous Red Blood Cells into Peripheral Vein, Percutaneous Approach (ICD-10-PCS; 2016-09-18)
PROC: 0DB68ZX Excision of Stomach, Via Natural or Artificial Opening Endoscopic, Diagnostic (ICD-10-PCS; 2016-09-21)
PROC: 0DJD8ZZ Inspection of Lower Intestinal Tract, Via Natural or Artificial Opening Endoscopic (ICD-10-PCS; 2016-09-21)
DX: J18.9 Pneumonia, unspecified organism (principal); J96.01 Acute respiratory failure with hypoxia; J81.1 Chronic pulmonary edema; E87.2 Acidosis; I85.10 Secondary esophageal varices without bleeding; K76.6 Portal hypertension; J44.0 Chronic obstructive pulmonary disease with (acute) lower respiratory infection; K22.70 Barrett's esophagus without dysplasia; Q21.1 Atrial septal defect; E11.40 Type 2 diabetes mellitus with diabetic neuropathy, unspecified; K70.31 Alcoholic cirrhosis of liver with ascites; D69.59 Other secondary thrombocytopenia; I10 Essential (primary) hypertension; G89.29 Other chronic pain; E78.5 Hyperlipidemia, unspecified; E87.70 Fluid overload, unspecified; E78.00 Pure hypercholesterolemia, unspecified; F10.21 Alcohol dependence, in remission; D50.9 Iron deficiency anemia, unspecified; K29.70 Gastritis, unspecified, without bleeding; K44.9 Diaphragmatic hernia without obstruction or gangrene; K64.8 Other hemorrhoids; K64.4 Residual hemorrhoidal skin tags; Z72.0 Tobacco use; Z79.01 Long term (current) use of anticoagulants; N42.9 Disorder of prostate, unspecified; E55.9 Vitamin D deficiency, unspecified; R53.83 Other fatigue; E53.8 Deficiency of other specified B group vitamins
CPT/HCPCS: 36415; 36430; 36600; 71010; 71275; 74175; 74177; 76937; 80048; 80053; 80061; 80076; 82042; 82103; 82105; 82140; 82150; 82306; 82390; 82550; 82552; 82607; 82728; 82746; 82747; 82805; 82945; 82948; 83036; 83516; 83520; 83540; 83550; 83605; 83615; 83735; 83880; 84100; 84153; 84155; 84157; 84443; 84484; 85025; 85027; 85610; 85730; 86022; 86038; 86256; 86850; 86880; 86900; 86901; 86920; 87040; 87070; 87205; 87522; 87641; 88112; 88305; 88312; 89051; 93005; 93306; 94002; 94150; 94640; 94664; 94667; 94668; 96360; C9113; J0456; J0692; J1644; J1650; J1756; J1940; J2270; J3420; J7040; J7050; P9016; P9047; Q9967

== ENCOUNTER 2016-10-23 01:07 | Inpatient (IN) | payer MEDICARE ==
[~2016-10-23] VITALS: Ht 182.9 cm; Wt 81.0 kg
[2016-10-23] VITALS (17 sets, daily range): BP systolic 82–123; BP diastolic 53–70; PULSE 63–98; RESP 11–20; TEMP 97.2–98.9; O2SAT 95–100
[~2016-10-23 01:07] MED LIST changes: +AMLO5TAB2 PO; -AMLO5TAB96 PO; +B12-1CHW CHEW; -BUSP10 PO; +BUSP10TA PO; +CEFT500T3 PO; +FURO40TA PO; +HYDR-3583 PO; -HYDR10TA16 PO; -IBUP-232 PO; +LACTCHW3 CHEW; -LYRI200C PO; -MAGICADU2 SWISH-SWAL; -METF500 PO; +PANT40TA3 PO; +PENI500T PO; +PREG300 PO; +SPIR100T PO; -XANA1TAB PO
[2016-10-23] MEDS ORDERED: SODIUM CHLORIDE 0.9% FLUSH 5 ML FLUSH IVF PRN (02:00)
[2016-10-23] MEDS ORDERED: PANTOPRAZOLE SODIUM 40 MG VIAL IVP ONE (02:00)
--- NOTE | 2016-10-23 02:15 | PD ---
HPI Chief Complaint: GI Complaint Time Seen by Provider: 01:33 Travel History International Travel<30 days: No Contact w/Intl Traveler<30days: No Traveled to known affect area: No History of Present Illness HPI The patient's 56. He reports feeling lightheaded upon standing up for the past 8 hours or so. He's had dark red stool, numerous episodes. EMS reports patient has been vomiting as well. At time of interview the patient states "I don't want to answer anymore questions." At time of interview pt proceeded to use the bedside commode. PFSH Past Medical History Hx Anticoagulant Therapy: Yes (ASA) Anxiety: No Depression: No Cancer: No Cardiovascular Problems: Yes High Cholesterol: Yes Diabetes: Yes Patient Takes Glucophage: No Diminished Hearing: No Endocrine: Yes Gastrointestinal Disorders: No Genitourinary: No Hepatitis: Yes (C) Hiatal Hernia: No Hypertension: Yes Immune Disorder: No Implanted Vascular Access Dvce: Yes Musculoskeletal: No Neurologic: Yes (DIABETIC NEUROPATHY) Psychiatric: No Respiratory: No Immunizations Current: Yes Thyroid Disease: No ?: Not Past Surgical History Abdominal Surgery: Yes (APPENDECTOMY) Appendectomy: Yes Body Medical Devices: PLATE IN RIGHT SHOULDER Cardiac Surgery: No Ear Surgery: No Endocrine Surgery: No Eye Surgery: No Genitourinary Surgery: No Gynecologic Surgery: No Oral Surgery: No Pacemaker: No Thoracic Surgery: No Tonsillectomy: Yes Other Surgery: Yes (right clavical with metal) Social History Alcohol Use: No Tobacco Use: Yes (2 CIG WEEK) Substance Use: No Allergies-Medications (Allergen,Severity, Reaction): Coded Allergies: Neosporin (Verified Allergy, Mild, 09/17/16) Polysporin (Verified Allergy, Mild, RASH, 09/17/16) Reported Meds & Prescriptions Reported Meds & Active Scripts Active Lactinex (Lactobacillus Acidophilus) 1 Chew 1 Tab CHEW DAILY Ceftin (Cefuroxime Axetil) 500 Mg Tab 500 Mg PO BID Pantoprazole (Pantoprazole Sodium) 40 Mg Tab 40 Mg PO DAILY Furosemide 40 Mg Tab 40 Mg PO DAILY O28-Abzrqf (Methylcobalamin) 1 Mg Chew 1 Mg CHEW DAILY Spironolactone 100 Mg Tab 100 Mg PO DAILY Reported Lyrica (Pregabalin) 300 Mg Cap 300 Mg PO TID Aspirin 325 Mg Tab 325 Mg PO DAILY Amlodipine (Amlodipine Besylate) 5 Mg Tab 5 Mg PO DAILY Buspirone (Buspirone HCl) 10 Mg Tab 10 Mg PO TID Baclofen 20 Mg Tab 20 Mg PO TID Penicillin V Potassium 500 Mg Tab 500 Mg PO Q6H Hydrocodone-Acetaminophen 10-325 mg Tab 1 Tab PO 5 TIMES A DAY PRN Review of Systems ROS Limitations: Uncooperative Physical Exam Narrative GENERAL: 56-year-old male mild distress speaking full sentences SKIN: Jaundice present. HEAD: Atraumatic. Normocephalic. EYES: Pupils equal and round. No scleral icterus. No injection or drainage. ENT: No nasal bleeding or discharge. Mucous membranes pink and moist. NECK: Trachea midline. No JVD. CARDIOVASCULAR: Regular rate and rhythm. RESPIRATORY: No accessory muscle use. Clear to auscultation. Breath sounds equal bilaterally. GASTROINTESTINAL: Abdomen soft, non-tender, nondistended. Hepatic and splenic margins not palpable. MUSCULOSKELETAL: Extremities without clubbing, cyanosis, or edema. No obvious deformities. NEUROLOGICAL: Awake and alert. No obvious cranial nerve deficits. Motor grossly within normal limits. Five out of 5 muscle strength in the arms and legs. Normal speech. PSYCHIATRIC: Appropriate mood and affect; insight and judgment normal. Data Data Last Documented VS Vital Signs Date Time Temp Pulse Resp B/P Pulse Ox O2 Delivery O2 Flow Rate FiO2 10/23/16 03:41 97.2 98 18 110/59 99 Room Air Vital signs review Orders Complete Blood Count With Diff (10/23/16 01:56) Comprehensive Metabolic Panel (10/23/16 01:56) Lipase (10/23/16 01:56) Ammonia (10/23/16 01:56) Prothrombin Time / Inr (Pt) (10/23/16 01:56) Act Partial Throm Time (Ptt) (10/23/16 01:56) Alcohol (Ethanol) (10/23/16 01:56) Urinalysis - C+S If Indicated (10/23/16 01:56) Type And Screen (10/23/16 01:56) Ecg Monitoring (10/23/16 01:56) Iv Access Insert/Monitor (10/23/16 01:56) Orthostatic Vital Signs (10/23/16 01:56) Oximetry (10/23/16 01:56) Pantoprazole Inj (Protonix Inj) (10/23/16 02:00) Sodium Chloride 0.9% Flush (Ns Flush) (10/23/16 02:00) Red Blood Cells (Rbc) (10/23/16 02:35) Blood Product Administration .UPON TRANSFUSION (10/23/16 02:35) Sodium Chlor 0.9% 250 Ml Inj (Ns 250 Ml (10/23/16 02:45) Sodium Chlor 0.9% 1000 Ml Inj (Ns 1000 M (10/23/16 02:45) Drug Screen, Random Urine (10/23/16 02:35) Pantoprazole Inj (Protonix Inj) (10/23/16 02:45) Ceftriaxone Inj (Rocephin Inj) (10/23/16 02:45) Octreotide Inj (Sandostatin Inj) (10/23/16 02:45) Lactulose Liq (Lactulose Liq) (10/23/16 03:00) Electrocardiogram (10/23/16 ) Admit Order (Ed Use Only) (10/23/16 03:48) Labs Laboratory Tests Test 10/23/16 10/23/16 02:05 02:35 White Blood Count 7.2 TH/MM3 Red Blood Count 2.60 MIL/MM3 Hemoglobin 7.3 GM/DL Hematocrit 22.4 % Mean Corpuscular Volume 86.1 FL Mean Corpuscular Hemoglobin 28.3 PG Mean Corpuscular Hemoglobin 32.8 % Concent Red Cell Distribution Width 22.2 % Platelet Count 119 TH/MM3 Mean Platelet Volume 11.0 FL Neutrophils (%) (Auto) 70.2 % Lymphocytes (%) (Auto) 21.0 % Monocytes (%) (Auto) 6.3 % Eosinophils (%) (Auto) 1.3 % Basophils (%) (Auto) 1.2 % Neutrophils # (Auto) 5.0 TH/MM3 Lymphocytes # (Auto) 1.5 TH/MM3 Monocytes # (Auto) 0.5 TH/MM3 Eosinophils # (Auto) 0.1 TH/MM3 Basophils # (Auto) 0.1 TH/MM3 CBC Comment DIFF FINAL Differential Comment Prothrombin Time 13.6 SEC Prothromb Time International 1.2 RATIO Ratio Activated Partial 26.4 SEC Thromboplast Time Sodium Level 141 MEQ/L Potassium Level 5.8 MEQ/L Chloride Level 107 MEQ/L Carbon Dioxide Level 24.7 MEQ/L Anion Gap 9 MEQ/L Blood Urea Nitrogen 46 MG/DL Creatinine 1.27 MG/DL Estimat Glomerular Filtration 58 ML/MIN Rate Random Glucose 207 MG/DL Calcium Level 8.0 MG/DL Total Bilirubin 0.9 MG/DL Aspartate Amino Transf 77 U/L (AST/SGOT) Alanine Aminotransferase 82 U/L (ALT/SGPT) Alkaline Phosphatase 85 U/L Ammonia 115 MCMOL/L Total Protein 5.6 GM/DL Albumin 2.4 GM/DL Lipase 157 U/L Ethyl Alcohol Level LESS THAN 3 MG/DL Blood Type A POSITIVE Antibody Screen NEGATIVE Crossmatch Leukocyte-Reduced Red Blood Cells Blood Bank Comment MDM Medical Decision Making Medical Screen Exam Complete: Yes Emergency Medical Condition: Yes Medical Record Reviewed: Yes Differential Diagnosis UGIB, LGIB, hemorrhagic shock Narrative Course CBC & BMP Diagram 10/23/16 02:05 Patient has hematemesis and melena. He is anemic. Heart rate has been about 100-110. The systolic blood pressure is been about 100 throughout the stay. He 'll be admitted to the ICU. 2 units of packed red cells ordered. Protonix bolus and drip followed by octreotide. Rocephin ordered. Phenergan and 0.5 mg hydromorphone given with good effect. EKG shows no evidence of hyperkalemic change. Insulin dextrose, calcium and bicarb given. d/w Dr Landrum Diagnosis Primary Impression: GI bleed Qualified Code: K92.2 - Gastrointestinal hemorrhage, unspecified gastrointestinal hemorrhage type Additional Impressions: Anemia Qualified Code: D62 - Acute posthemorrhagic anemia Esophageal varices Qualified Code: I85.11 - Secondary esophageal varices with bleeding Admitting Information Admitting Physician Requests: Admit Additional Instructions: You have a choice when it comes to health care, and we are glad that you chose [facility]. Hopefully, we have met your expectations on today's visit. You are welcome to return to [facility] at any time, as we are committed to meeting the health care needs of our community. Tam Barnes MD Oct 23, 2016 02:15
[2016-10-23 02:25] LABS: BASOPHIL # 0.1 TH/MM3 (0-0.2); BASOPHIL % 1.2 % (0.0-2.0); EOSINOPHIL # 0.1 TH/MM3 (0-0.4); EOSINOPHIL % 1.3 % (0.0-4.0); HEMATOCRIT 22.4 % (39.0-51.0); HEMO FLAGS DIFF FINAL; LYMPHOCYTE # 1.5 TH/MM3 (1.0-4.8); MEAN CELL VOLUME 86.1 FL (80.0-100.0); MEAN CORPUSCULAR HEMOGLOBIN 28.3 PG (27.0-34.0); MEAN CORPUSCULAR HGB CONC 32.8 % (32.0-36.0); MONO % 6.3 % (0.0-8.0); NEUT % 70.2 % (16.0-70.0); PLATELET COUNT 119 TH/MM3 (150-450); RED CELL DISTRIBUTION WIDTH 22.2 % (11.6-17.2); WHITE BLOOD COUNT 7.2 TH/MM3 (4.0-11.0)
[2016-10-23 02:44] LABS: APTT (PATIENT) 26.4 SEC (24.3-30.1); INTERNATIONAL NORMALIZED RATIO 1.2 RATIO; PROTHROMBIN TIME - PATIENT 13.6 SEC (9.8-11.6)
[2016-10-23 02:45] LABS: ALT (GPT) 82 U/L (12-78); ANION GAP 9 MEQ/L (5-15); AST (GOT) 77 U/L (15-37); BICARBONATE 24.7 MEQ/L (21.0-32.0); BLOOD UREA NITROGEN 46 MG/DL (7-18); CHLORIDE 107 MEQ/L (98-107); GLOMERULAR FILTRATION RATE 58 ML/MIN (>89); POTASSIUM 5.8 MEQ/L (3.5-5.1); SODIUM (NA) 141 MEQ/L (136-145)
[2016-10-23] MEDS ORDERED: SODIUM CHLOR 0.9% 1000 ML INJ 1,000 ML IV ONE ×2 (02:45→05:00)
[2016-10-23] MEDS ORDERED: cefTRIAXone INJ 1,000 MG in SODIUM CHLORIDE 0.9% INJ 100 ML IV ONE (02:45)
[2016-10-23] MEDS ORDERED: SODIUM CHLOR 0.9% 250 ML INJ 250 ML IV ONE (02:45)
[2016-10-23 02:47] LABS: ALKALINE PHOSPHATASE 85 U/L (45-117); TOTAL BILIRUBIN ADULT 0.9 MG/DL (0.2-1.0)
[2016-10-23] MEDS ORDERED: LACTULOSE SYRUP 20 GM/30 ML CUP PO ONE (03:00)
[2016-10-23] MEDS: PANTOPRAZOLE INJ 80 MG in SODIUM CHLORIDE 0.9% INJ 100 ML IV SCH ×3 (03:24→22:57)
[2016-10-23] MEDS: OCTREOTIDE INJ 500 MCG in SODIUM CHLORID 0.9% 500 ML INJ 500 ML IV SCH ×3 (03:24→22:59)
[2016-10-23] MEDS ORDERED: PROMETHAZINE INJ 25 MG/ML VIAL IM ONE (04:30)
[2016-10-23] MEDS ORDERED: HYDROmorphone HCL PF 1 MG/ML VIAL IV PUSH ONE (04:30)
[2016-10-23] MEDS: SODIUM CHLOR 0.9% 1000 ML INJ 1,000 ML IV SCH (04:42)
[2016-10-23] MEDS ORDERED: CHLORHEXIDINE GLUCONATE 2 % 1 PACK (2 CLOTHS) TOP PRN (04:45)
[2016-10-23] MEDS ORDERED: RESP: ALBUTEROL 2.5 MG/IPRATROPIUM 0.5 MG NEB (PRN) INH (04:45)
[2016-10-23] MEDS ORDERED: METOCLOPRAMIDE HCL 10 MG/2 ML VIAL IV PRN (04:45)
[2016-10-23] MEDS ORDERED: SODIUM CHLORIDE 0.9% FLUSH 5 ML FLUSH IV FLUSH PRN (04:45)
[2016-10-23] MEDS ORDERED: MISCELLANEOUS NURSING INFORMATION XX SCH (04:45)
[2016-10-23] MEDS ORDERED: ACETAMINOPHEN 325 MG TAB PO PRN (04:45)
[2016-10-23] MEDS ORDERED: ONDANSETRON HCL 4 MG/2 ML VIAL IV PRN (04:45)
[2016-10-23] MEDS ORDERED: LORazepam 2 MG/ML VIAL IV PRN (04:45)
[2016-10-23] MEDS ORDERED: SODIUM POLYSTYRENE SULFONATE SUSP 15 GM/60 ML CUP PO ONE (05:00)
--- NOTE | 2016-10-23 05:02 | HHI.HP ---
[facility] Service Critical Care Medicine Primary Care Physician Long Huerta, DO Admission Diagnosis Hematemasis, Melena, Anemia, Hyperammonemia Diagnosis: Travel History International Travel<30 Days: No Contact w/Intl Traveler <30 Da: No Traveled to Known Affected Are: No History of Present Illness 56-year-old male with a history of cirrhosis, followed by Dr. Huerta who has been recently discharged after evaluation of chronic abdominal pain and portal vein thrombosis, reports feeling lightheaded upon standing up for the past 8 hours. He's had dark red stool, numerous episodes. Critical-care medicine was consulted to evaluate and manage his anemia and possible GI bleed. Review of Systems Constitutional: DENIES: Diaphoretic episodes, Fatigue, Fever, Weight gain, Weight loss, Chills, Dizziness, Change in appetite, Night Sweats Endocrine: DENIES: Heat/cold intolerance, Polydipsia, Polyuria, Polyphagia Eyes: DENIES: Blurred vision, Diplopia, Eye inflammation, Eye pain, Vision loss , Photosensitivity, Double Vision Ears, nose, mouth, throat: DENIES: Tinnitus, Hearing loss, Vertigo, Nasal discharge, Oral lesions, Throat pain, Hoarseness, Ear Pain, Running Nose, Epistaxis, Sinus Pain, Toothache, Odynophagia Respiratory: DENIES: Apneas, Cough, Snoring, Wheezing, Hemoptysis, Sputum production, Shortness of breath Cardiovascular: DENIES: Chest pain, Palpitations, Syncope, Dyspnea on Exertion , PND, Lower Extremity Edema, Orthopnea, Claudication Gastrointestinal: COMPLAINS OF: Abdominal pain, Bloody stools, DENIES: Black stools, Constipation, Diarrhea, Nausea, Vomiting, Difficulty Swallowing, Anorexia Genitourinary: DENIES: Sexual dysfunction, Urinary frequency, Urinary incontinence, Urgency, Hematuria, Dysuria, Nocturia, Penile Discharge, Testicular Pain, Testicular Swelling Musculoskeletal: DENIES: Joint pain, Muscle aches, Stiffness, Joint Swelling, Back pain, Neck pain Integumentary: DENIES: Abnormal pigmentation, Nail changes, Pruritus, Rash Hematologic/lymphatic: DENIES: Bruising, Lymphadenopathy Immunologic/allergic: DENIES: Eczema, Urticaria Neurologic: DENIES: Abnormal gait, Headache, Localized weakness, Paresthesias, Seizures, Speech Problems, Tremor, Poor Balance Psychiatric: DENIES: Anxiety, Confusion, Mood changes, Depression, Hallucinations, Agitation, Suicidal Ideation, Homicidal Ideation, Delusions Past Family Social History Allergies: Coded Allergies: Neosporin (Verified Allergy, Mild, 09/17/16) Polysporin (Verified Allergy, Mild, RASH, 09/17/16) Past Medical History Hypertension Cirrhosis Hyperlipidemia Diabetes Diabetic neuropathy Portal vein thrombosis Past Surgical History Appendectomy Plates and right shoulder Tonsillectomy Reported Medications Reported Meds & Active Scripts Active Lactinex (Lactobacillus Acidophilus) 1 Chew 1 Tab CHEW DAILY Ceftin (Cefuroxime Axetil) 500 Mg Tab 500 Mg PO BID Pantoprazole (Pantoprazole Sodium) 40 Mg Tab 40 Mg PO DAILY Furosemide 40 Mg Tab 40 Mg PO DAILY [id number] (Methylcobalamin) 1 Mg Chew 1 Mg CHEW DAILY Spironolactone 100 Mg Tab 100 Mg PO DAILY Reported Lyrica (Pregabalin) 300 Mg Cap 300 Mg PO TID Aspirin 325 Mg Tab 325 Mg PO DAILY Amlodipine (Amlodipine Besylate) 5 Mg Tab 5 Mg PO DAILY Buspirone (Buspirone HCl) 10 Mg Tab 10 Mg PO TID Baclofen 20 Mg Tab 20 Mg PO TID Penicillin V Potassium 500 Mg Tab 500 Mg PO Q6H Hydrocodone-Acetaminophen 10-325 mg Tab 1 Tab PO 5 TIMES A DAY PRN Active Ordered Medications Current Medications Medications (Trade) Dose Ordered Sig/Jez Route PRN Reason Start Time Stop Time Status Last Admin Dose Admin IV Flush 2 ml 2 ml UNSCH PRN IVF FLUSH AFTER USING IV ACCESS 10/23/16 02:00 Sodium Chloride 250 ml @ 15 mls/hr ONCE ONCE IV 10/23/16 02:45 10/23/16 19:24 10/23/16 04:34 Pantoprazole Sodium 80 mg/ Sodium Chloride 100 ml @ 10 mls/hr Q10H IV 10/23/16 02:45 10/23/16 03:24 Octreotide Acetate/Sodium Chloride (SandoSTATIN INJ/ NS 500 ml Inj) 500.5 ml @ 50 mls/hr Q10H IV 10/23/16 02:45 10/23/16 03:24 Family History Noncontributory Social History Alcohol Use: No Tobacco Use: Yes (2 CIG WEEK) Substance Use: No Physical Exam Vital Signs Vital Signs Date Time Temp Pulse Resp B/P Pulse Ox O2 Delivery O2 Flow Rate FiO2 10/23/16 04:10 87 18 99/63 99 Room Air 10/23/16 03:41 97.2 98 18 110/59 99 Room Air 10/23/16 03:07 80 18 116/56 99 Room Air 10/23/16 02:38 84 18 82/53 95 Room Air 10/23/16 02:16 95 Room Air 10/23/16 01:14 97.9 94 18 103/56 100 Physical Exam Vital Signs Date Time Temp Pulse Resp B/P Pulse Ox O2 Delivery O2 Flow Rate FiO2 10/23/16 04:10 87 18 99/63 99 Room Air 10/23/16 03:41 97.2 GENERAL: Well-nourished, well-developed patient. SKIN: Warm and dry. HEAD: Normocephalic. EYES: No scleral icterus. No injection or drainage. NECK: Supple, trachea midline. No JVD or lymphadenopathy. CARDIOVASCULAR: Regular rate and rhythm without murmurs, gallops, or rubs. RESPIRATORY: Breath sounds equal bilaterally. No accessory muscle use. GASTROINTESTINAL: Abdomen soft, non-tender, nondistended. MUSCULOSKELETAL: No cyanosis, or edema. BACK: Nontender without obvious deformity. No CVA tenderness. Laboratory Laboratory Tests Test 10/23/16 10/23/16 02:05 02:35 White Blood Count 7.2 Red Blood Count 2.60 Hemoglobin 7.3 Hematocrit 22.4 Mean Corpuscular Volume 86.1 Mean Corpuscular Hemoglobin 28.3 Mean Corpuscular Hemoglobin 32.8 Concent Red Cell Distribution Width 22.2 Platelet Count 119 Mean Platelet Volume 11.0 Neutrophils (%) (Auto) 70.2 Lymphocytes (%) (Auto) 21.0 Monocytes (%) (Auto) 6.3 Eosinophils (%) (Auto) 1.3 Basophils (%) (Auto) 1.2 Neutrophils # (Auto) 5.0 Lymphocytes # (Auto) 1.5 Monocytes # (Auto) 0.5 Eosinophils # (Auto) 0.1 Basophils # (Auto) 0.1 CBC Comment DIFF FINAL Differential Comment Prothrombin Time 13.6 Prothromb Time International 1.2 Ratio Activated Partial 26.4 Thromboplast Time Sodium Level 141 Potassium Level 5.8 Chloride Level 107 Carbon Dioxide Level 24.7 Anion Gap 9 Blood Urea Nitrogen 46 Creatinine 1.27 Estimat Glomerular Filtration 58 Rate Random Glucose 207 Calcium Level 8.0 Total Bilirubin 0.9 Aspartate Amino Transf 77 (AST/SGOT) Alanine Aminotransferase 82 (ALT/SGPT) Alkaline Phosphatase 85 Ammonia 115 Total Protein 5.6 Albumin 2.4 Lipase 157 Ethyl Alcohol Level LESS THAN 3 Blood Type A POSITIVE Antibody Screen NEGATIVE Crossmatch Leukocyte-Reduced Red Blood Cells Blood Bank Comment Result Diagram: 10/23/1620410/23/16204 Assessment and Plan Problem List: (1) Gastritis ICD Code: K29.70 Status: Acute (2) GI bleed ICD Code: K92.2 Status: Acute (3) Anemia ICD Code: D64.9 Status: Acute Assessment and Plan Gastrointestinal bleed - Nothing by mouth - Protonix IV twice a day - Octreotide drip - GI consult - Aggressive IV fluids resuscitation - Transfuse PRBC Anemia - Due to blood loss - Transfuse to keep hemoglobin above 7 Hypertension - Currently normotensive - Hold all antihypertensive medications Liver Cirrhosis - Former EtOH abuse - Monitor for withdrawal - [facility] protocol - Supportive care Hyperlipidemia - Statins when cleared by GI Diabetes mellitus - Insulin sliding scale Diabetic neuropathy - Resume Lyrica per home dose Portal vein thrombosis - Per GI DVT GI prophylaxis - Protonix IV - Teds SCDs, no chemical DVT prophylaxis due to GI bleed Critical Care: The total critical care time was 35 minutes. Time to perform other separately billable procedures was not included in the critical care time. Problem Qualifiers (1) GI bleed: Qualified Code: K92.2 - Gastrointestinal hemorrhage, unspecified gastrointestinal hemorrhage type (2) Anemia: Patricio Landrum MD Oct 23, 2016 05:01
[2016-10-23] MEDS: CYANOCOBALAMIN 1,000 MCG TAB PO SCH ×2 (05:15→08:11)
[2016-10-23] MEDS ORDERED: ACETAMINOPHEN/HYDROcodone 325 MG/10 MG TAB PO PRN (05:15)
[2016-10-23] MEDS: LACTOBACILLUS ACIDOPHILUS TAB PO SCH ×2 (05:15→08:11)
[2016-10-23] MEDS: PANTOPRAZOLE SODIUM 40 MG VIAL IV SCH ×2 (06:00→18:03)
[2016-10-23] MEDS: busPIRone HCL 10 MG TAB PO SCH ×3 (08:12→18:03)
[2016-10-23] MEDS: SODIUM CHLORIDE 0.9% FLUSH 5 ML FLUSH IV FLUSH SCH ×2 (08:14→22:57)
[2016-10-23] MEDS: DOCUSATE SODIUM 100 MG CAP PO SCH ×2 (09:00→22:57)
[2016-10-23] MEDS: PREGABALIN 100 MG CAP PO SCH ×3 (09:00→18:02)
--- NOTE | 2016-10-23 09:31 | PD.CONS ---
HPI History of Present Illness This is a 56 year old male patient male patient with with a hx of liver cirrhosis, esophageal varices, portal vein thrombosis who came to the ER for GI bleeding. He was last evaluated with EGD/Colonoscopy (09/21/16)---> Gastritis in the antrum, esophageal varices grade 2, retroflexion revealed hiatal hernia, semisolid stool in right and left colon, retroflexed views revealed medium internal hemorrhoids, external hemorrhoids. Pathology revealed antral mucosa with moderate active chronic gastritis, zachariah stain is negative for helicobacter. The plan was for a repeat colonoscopy in 3 months. He reports that he was taking medications for his stomach, but ran out of these a few weeks ago. He reports that he was doing well up until last night around 9pm when he started having nausea and vomiting with dark maroon blood. He had some mild epigastric pressure without radiation and shortly after developed some lower abdominal cramping with the sudden urge to move his bowels- consisting of dark maroon bloody stool. He reports that this was a large amount and that he had 3 episodes at home and another 3 episodes in the ER. He does not take Ibuprofen or ETOH. He has a hx of hepatitis C, Viral load 983,000. He is treatment naive. PFSH Past Medical History DM Esophageal varices Gastritis Hemorrhoids Cirrhosis Hepatitis C, Tx naive Portal vein thrombosis Diabetic neuropathy Hyperlipidemia Past Surgical History Appendectomy Right shoulder surgery Tonsillectomy EGD/Colonoscopy Coded Allergies: Neosporin (Verified Allergy, Mild, 09/17/16) Polysporin (Verified Allergy, Mild, RASH, 09/17/16) Medications Allergies Coded Allergies Type Severity Reaction Last Updated Verified Neosporin Allergy Mild 09/17/16 Yes Polysporin Allergy Mild RASH 09/17/16 Yes Active Scripts Medications Dose Route/Sig Days Date Category Lactinex (Lactobacillus Acidophilus) 1 Chew 1 Tab CHEW DAILY 09/23/16 Rx Ceftin (Cefuroxime Axetil) 500 Mg Tab 500 Mg PO BID 09/23/16 Rx Pantoprazole (Pantoprazole Sodium) 40 Mg Tab 40 Mg PO DAILY 09/22/16 Rx Furosemide 40 Mg Tab 40 Mg PO DAILY 09/22/16 Rx Z35-Ehxaaz (Methylcobalamin) 1 Mg Chew 1 Mg CHEW DAILY 09/22/16 Rx Spironolactone 100 Mg Tab 100 Mg PO DAILY 09/22/16 Rx Lyrica (Pregabalin) 300 Mg Cap 300 Mg PO TID 09/17/16 Reported Aspirin 325 Mg Tab 325 Mg PO DAILY 09/17/16 Reported Amlodipine (Amlodipine Besylate) 5 Mg Tab 5 Mg PO DAILY 09/17/16 Reported Buspirone (Buspirone HCl) 10 Mg Tab 10 Mg PO TID 09/17/16 Reported Baclofen 20 Mg Tab 20 Mg PO TID 09/17/16 Reported Penicillin V Potassium 500 Mg Tab 500 Mg PO Q6H 09/17/16 Reported Hydrocodone-Acetaminophen 10-325 mg Tab 1 Tab PO 5 TIMES A DAY PRN 09/17/16 Reported Family History Noncontributory Social History Smokes 2 cigarettes per week No ETOH use. No illicit drug use. Review of Systems Constitutional: COMPLAINS OF: Fatigue, DENIES: Weight loss Respiratory: DENIES: Cough Cardiovascular: DENIES: Chest pain Gastrointestinal: COMPLAINS OF: Abdominal pain, Bloody stools, Diarrhea, Nausea , Vomiting, Swelling of Abdomen, Heartburn, Hematemesis, DENIES: Black stools, Constipation Musculoskeletal: COMPLAINS OF: Joint pain, Back pain Hematologic/lymphatic: DENIES: Bruising Neurologic: DENIES: Headache Psychiatric: DENIES: Confusion GI Exam Vitals I&O Vital Signs Date Time Temp Pulse Resp B/P Pulse Ox O2 Delivery O2 Flow Rate FiO2 10/23/16 08:19 73 10/23/16 08:00 98.9 73 12 99/54 100 10/23/16 06:34 98.5 78 20 114/70 100 10/23/16 06:00 75 18 98/57 99 Room Air 10/23/16 05:10 95 10/23/16 05:00 82 20 96/53 95 Room Air 10/23/16 04:10 87 18 99/63 99 Room Air 10/23/16 03:41 97.2 98 18 110/59 99 Room Air 10/23/16 03:07 80 18 116/56 99 Room Air 10/23/16 02:38 84 18 82/53 95 Room Air 10/23/16 02:16 95 Room Air 10/23/16 01:14 97.9 94 18 103/56 100 Laboratory Test 10/23/16 10/23/16 10/23/16 02:05 02:35 06:30 White Blood Count 7.2 TH/MM3 Red Blood Count 2.60 MIL/MM3 Hemoglobin 7.3 GM/DL Hematocrit 22.4 % Mean Corpuscular Volume 86.1 FL Mean Corpuscular Hemoglobin 28.3 PG Mean Corpuscular Hemoglobin 32.8 % Concent Red Cell Distribution Width 22.2 % Platelet Count 119 TH/MM3 Mean Platelet Volume 11.0 FL Neutrophils (%) (Auto) 70.2 % Lymphocytes (%) (Auto) 21.0 % Monocytes (%) (Auto) 6.3 % Eosinophils (%) (Auto) 1.3 % Basophils (%) (Auto) 1.2 % Neutrophils # (Auto) 5.0 TH/MM3 Lymphocytes # (Auto) 1.5 TH/MM3 Monocytes # (Auto) 0.5 TH/MM3 Eosinophils # (Auto) 0.1 TH/MM3 Basophils # (Auto) 0.1 TH/MM3 CBC Comment DIFF FINAL Differential Comment Prothrombin Time 13.6 SEC Prothromb Time International 1.2 RATIO Ratio Activated Partial 26.4 SEC Thromboplast Time Sodium Level 141 MEQ/L Potassium Level 5.8 MEQ/L Chloride Level 107 MEQ/L Carbon Dioxide Level 24.7 MEQ/L Anion Gap 9 MEQ/L Blood Urea Nitrogen 46 MG/DL Creatinine 1.27 MG/DL Estimat Glomerular Filtration 58 ML/MIN Rate Random Glucose 207 MG/DL Calcium Level 8.0 MG/DL Total Bilirubin 0.9 MG/DL Aspartate Amino Transf 77 U/L (AST/SGOT) Alanine Aminotransferase 82 U/L (ALT/SGPT) Alkaline Phosphatase 85 U/L Ammonia 115 MCMOL/L Total Protein 5.6 GM/DL Albumin 2.4 GM/DL Lipase 157 U/L Ethyl Alcohol Level LESS THAN 3 MG/DL Blood Type A POSITIVE Antibody Screen NEGATIVE Crossmatch Leukocyte-Reduced Red Blood Cells Blood Bank Comment Nasal Screen MRSA (PCR) NEGATIVE Physical Examination HEENT: Normocephalic; atraumatic; no jaundice. CHEST: CTA CARDIAC: RRR ABDOMEN: Soft, nondistended, nontender; hepatosplenomegaly; bowel sounds are present in all four quadrants. EXTREMITIES: No clubbing, cyanosis, or edema. SKIN: Normal; no rash; no jaundice. SHREDDER TENDER PEAT: No focal deficits; alert and oriented times three. Assessment and Plan Plan ASSESSMENT: - GIB, Hematemesis/Hematochezia with dark maroon blood. Pt with hx of portal thrombosis, esophageal varices, liver cirrhosis. Last EGD/Colonoscopy (09/21/16)---> Gastritis in the antrum, esophageal varices grade 2, retroflexion revealed hiatal hernia, semisolid stool in right and left colon, retroflexed views revealed medium internal hemorrhoids, external hemorrhoids. Pathology revealed antral mucosa with moderate active chronic gastritis, zachariah stain is negative for helicobacter. The plan was for a repeat colonoscopy in 3 months. Ran out of PPI a few weeks ago. Started having GI bleeding with 3 episodes last night and 3 here in ER. HH 7.3/22.4. - Liver cirrhosis, T> Bili 0.9, AST 77, ALT 82, Alk Phosph 85. Does not drink ETOH. - Hepatitis C, Tx naive. Pt states he was told that he didn't actually have this, but his viral load was 983,000. - Thrombocytopenia, mild 119,000. PLAN: - Plan for egd with possible band ligation today - Obtain consents - NPO - Octreotide gtt - Protonix gtt - Monitor HH - Transfuse as necessary - Supportive care - Further recommendations to follow based on results of above - Pt seen and examined by Dr. Silva and myself and this note is written on his behalf. Yumiko Vale Oct 23, 2016 09:31
[2016-10-23 11:36] LABS: HEMATOCRIT 22.3 % (39.0-51.0)
[2016-10-23 11:41] LABS: REVIEW FLAG FINAL
[2016-10-23 12:14] LABS: BICARBONATE 26.6 MEQ/L (21.0-32.0); POTASSIUM 5.1 MEQ/L (3.5-5.1)
[2016-10-23 12:30] LABS: CALCIUM-PROTEIN CORRECTED 8.6 MG/DL (8.5-10.1)
[2016-10-23] MEDS ORDERED: KETAMINE HCL 500 MG/5 ML VIAL ONE (12:33)
[2016-10-23] MEDS ORDERED: PROPOFOL 200 MG/20 ML AMP IV ONE (13:03)
[2016-10-23] MEDS ORDERED: DO NOT ADM ANY ANTICOAGULANT DRUGS XX PRN (13:30)
[2016-10-23] MEDS ORDERED: CALCIUM GLUCONATE 10% 1 GM/10 ML VIAL SLOW IVP ONE (15:00)
[2016-10-23] MEDS ORDERED: INSULIN HUMAN REGULAR 1,000 UNITS/10 ML VIAL IV PUSH ONE (15:00)
[2016-10-23] MEDS ORDERED: SODIUM BICARBONATE 8.4% SOLN 50 MEQ/50 ML VIAL SLOW IVP ONE (15:00)
[2016-10-23] MEDS ORDERED: DEXTROSE 50% IN WATER 50 ML VIAL(D50) IV PUSH ONE (15:00)
[2016-10-23] MEDS: LACTULOSE SYRUP 20 GM/30 ML CUP PO SCH ×3 (15:56→22:57)
[2016-10-23 16:10] LABS: HEMATOCRIT 23.1 % (39.0-51.0)
[2016-10-23 16:20] LABS: REVIEW FLAG FINAL
--- NOTE | 2016-10-23 16:54 | EKG ---
Date Performed: 10/23/2016 Time Performed: 04:21:33 PTAGE: 56 years EKG: Sinus rhythm LOW QRS VOLTAGE IN PRECORDIAL LEADS MINIMAL ST DEPRESSION BORDERLINE ECG PREVIOUS TRACING : 09/17/2016 03.08 Compared to previous tracing, the patient is no longer tach ycardic. DOCTOR: Hanh العراقي Interpretating Date/Time 10/23/2016 16:54:08
[2016-10-23] MEDS: RIFAXIMIN 550 MG TAB PO SCH (22:57)
[2016-10-23] MEDS: CHLORHEXIDINE GLUCONATE 2 % 1 PACK (2 CLOTHS) TOP SCH (23:00)
[2016-10-24] VITALS (14 sets, daily range): BP systolic 12–122; BP diastolic 64–74; PULSE 60–103; RESP 9–20; TEMP 97.8–98.8; O2SAT 96–100
[2016-10-24 01:49] LABS: HEMATOCRIT 27.1 % (39.0-51.0)
[2016-10-24 01:55] LABS: REVIEW FLAG FINAL
[2016-10-24] MEDS: cefTRIAXone INJ 1,000 MG in SODIUM CHLORIDE 0.9% INJ 100 ML IV SCH (02:26)
[2016-10-24] MEDS: MORPHINE SULFATE 4 MG/ML INJ IV PRN ×5 (02:27→22:46)
[2016-10-24 04:28] LABS: AUTOMATED NEUTROPHIL # 2.2 TH/MM3 (1.8-7.7); BASOPHIL # 0.1 TH/MM3 (0-0.2); BASOPHIL % 1.2 % (0.0-2.0); EOSINOPHIL # 0.1 TH/MM3 (0-0.4); EOSINOPHIL % 2.8 % (0.0-4.0); LYMPHOCYTE # 1.4 TH/MM3 (1.0-4.8); MEAN CELL VOLUME 88.1 FL (80.0-100.0); MONO % 7.5 % (0.0-8.0); NEUT % 54.5 % (16.0-70.0); PLATELET COUNT 58 TH/MM3 (150-450); RED BLOOD COUNT 3.18 MIL/MM3 (4.50-5.90); RED CELL DISTRIBUTION WIDTH 18.5 % (11.6-17.2)
[2016-10-24 04:31] LABS: HEMO FLAGS AUTO DIFF
[2016-10-24 05:32] LABS: ALT (GPT) 167 U/L (12-78); ANION GAP 7 MEQ/L (5-15); AST (GOT) 255 U/L (15-37); BLOOD UREA NITROGEN 43 MG/DL (7-18); CHLORIDE 113 MEQ/L (98-107); GLOMERULAR FILTRATION RATE 78 ML/MIN (>89); MAGNESIUM 1.6 MG/DL (1.5-2.5); POTASSIUM 4.2 MEQ/L (3.5-5.1); SODIUM (NA) 145 MEQ/L (136-145)
[2016-10-24 05:35] LABS: ALKALINE PHOSPHATASE 70 U/L (45-117); TOTAL BILIRUBIN ADULT 1.3 MG/DL (0.2-1.0)
[2016-10-24 05:36] LABS: OVALOCYTES 1+ (NORMAL); PLATELET ESTIMATE SMEAR LOW (NORMAL); PLATELET MORPHOLOGY NORMAL (NORMAL); SCAN/DIFF AUTO DIFF CONFIRMED; TEARDROP RBCS 1+ (NORMAL)
[2016-10-24] MEDS: PANTOPRAZOLE SODIUM 40 MG VIAL IV SCH (06:08)
[2016-10-24] MEDS: busPIRone HCL 10 MG TAB PO SCH ×3 (08:02→18:21)
[2016-10-24] MEDS: PREGABALIN 100 MG CAP PO SCH ×3 (08:02→18:21)
[2016-10-24] MEDS: LACTOBACILLUS ACIDOPHILUS TAB PO SCH (08:02)
[2016-10-24] MEDS: CYANOCOBALAMIN 1,000 MCG TAB PO SCH (08:02)
[2016-10-24] MEDS: RIFAXIMIN 550 MG TAB PO SCH ×2 (08:03→20:48)
[2016-10-24] MEDS: LACTULOSE SYRUP 20 GM/30 ML CUP PO SCH ×4 (08:08→20:48)
[2016-10-24] MEDS: DOCUSATE SODIUM 100 MG CAP PO SCH ×2 (08:15→20:48)
[2016-10-24] MEDS: SODIUM CHLORIDE 0.9% FLUSH 5 ML FLUSH IV FLUSH SCH ×2 (08:15→20:47)
[2016-10-24] MEDS: PROPRANOLOL HCL 20 MG TAB PO SCH (08:15)
--- NOTE | 2016-10-24 08:40 | HHI.GIFU ---
Subjective Remarks Resting in bed. No active bleeding at this time. C/O pain in his back and legs - no abdominal pain. Reports that he had one bowel movement last night with some dark reddish/maroon colored blood mixed within it. Objective Vitals I&O Vital Signs Date Time Temp Pulse Resp B/P Pulse Ox O2 Delivery O2 Flow Rate FiO2 10/24/16 08:09 18 10/24/16 06:00 64 10/24/16 06:00 98.6 64 14 118/74 97 10/24/16 04:00 61 10/24/16 02:00 63 10/24/16 00:00 63 10/24/16 00:00 98.7 63 12 102/64 96 10/23/16 22:00 63 10/23/16 20:40 98 10/23/16 20:00 69 10/23/16 20:00 98.7 69 13 123/68 98 10/23/16 16:00 98.4 67 11 113/65 100 10/23/16 13:20 98.5 86 16 138/65 99 Nasal Cannula 2 10/23/16 13:15 95 16 139/70 98 Nasal Cannula 2 10/23/16 13:05 98.8 103 20 142/85 99 Nasal Cannula 3 10/23/16 12:00 98.6 68 12 105/65 99 I/O 10/23/16 10/23/16 10/23/16 10/24/16 10/24/16 10/24/16 07:00 15:00 23:00 07:00 15:00 23:00 Intake Total 300 ml 3441 ml 2017 ml Output Total 0 ml 1000 ml 2800 ml Balance 300 ml 2441 ml -783 ml Intake Oral 340 ml IV Total 1736 ml 2017 ml Packed Cells 1365 ml Other 300 ml Output Urine Total 1000 ml 2800 ml Estimated Blood Loss 0 ml # Bowel Movements 1 Laboratory Laboratory Tests Test 10/23/16 10/23/16 10/23/16 10/24/16 10:44 15:39 16:01 01:38 Hemoglobin 7.3 7.9 9.2 Hematocrit 22.3 23.1 27.1 Sodium Level 143 Potassium Level 5.1 4.1 Chloride Level 111 Carbon Dioxide Level 26.6 Anion Gap 5 Blood Urea Nitrogen 55 Creatinine 1.01 Estimat Glomerular Filtration 76 Rate Random Glucose 185 Calcium Level 7.4 Protein Corrected Calcium 8.6 Total Protein 4.9 Blood Type A POSITIVE Crossmatch Leukocyte-Reduced Red Blood Cells Blood Bank Comment Test 10/24/16 03:28 White Blood Count 4.0 Red Blood Count 3.18 Hemoglobin 9.5 Hematocrit 28.0 Mean Corpuscular Volume 88.1 Mean Corpuscular Hemoglobin 30.0 Mean Corpuscular Hemoglobin 34.0 Concent Red Cell Distribution Width 18.5 Platelet Count 58 Mean Platelet Volume 10.5 Neutrophils (%) (Auto) 54.5 Lymphocytes (%) (Auto) 34.0 Monocytes (%) (Auto) 7.5 Eosinophils (%) (Auto) 2.8 Basophils (%) (Auto) 1.2 Neutrophils # (Auto) 2.2 Lymphocytes # (Auto) 1.4 Monocytes # (Auto) 0.3 Eosinophils # (Auto) 0.1 Basophils # (Auto) 0.1 CBC Comment AUTO DIFF Differential Comment AUTO DIFF CONFIRMED Platelet Estimate LOW Platelet Morphology Comment NORMAL Tear Drop Cells 1+ Ovalocytes 1+ Sodium Level 145 Potassium Level 4.2 Chloride Level 113 Carbon Dioxide Level 25.0 Anion Gap 7 Blood Urea Nitrogen 43 Creatinine 0.99 Estimat Glomerular Filtration 78 Rate Random Glucose 114 Calcium Level 8.2 Phosphorus Level 3.1 Magnesium Level 1.6 Total Bilirubin 1.3 Aspartate Amino Transf 255 (AST/SGOT) Alanine Aminotransferase 167 (ALT/SGPT) Alkaline Phosphatase 70 Ammonia 74 Total Protein 5.5 Albumin 2.4 Physical Exam HEENT: Normocephalic; atraumatic; no jaundice. CHEST: CTA CARDIAC: RRR ABDOMEN: Soft, nondistended, nontender; no hepatosplenomegaly; bowel sounds are present in all four quadrants. EXTREMITIES: No clubbing, cyanosis, or edema. SKIN: Normal; no rash; no jaundice. STAVE HEWER: No focal deficits; alert and oriented times three. Assessment and Plan Plan ASSESSMENT: - GIB, Hematemesis/Hematochezia with dark maroon blood. Pt with hx of portal thrombosis, esophageal varices, liver cirrhosis. Last EGD/Colonoscopy (09/21/16)---> Gastritis in the antrum, esophageal varices grade 2, retroflexion revealed hiatal hernia, semisolid stool in right and left colon, retroflexed views revealed medium internal hemorrhoids, external hemorrhoids. Pathology revealed antral mucosa with moderate active chronic gastritis, zachariah stain is negative for helicobacter. The plan was for a repeat colonoscopy in 3 months. Ran out of PPI a few weeks ago and came to the ER for GI bleeding. S/P EGD (10/23/16)----> gastropathy, grade I esophageal varices. S/P 4 units PRBC. HH 9.5/28.0. - Liver cirrhosis, T Bili 1.3, AST 255, ALT 167, Alk Phosph 70. Does not drink ETOH. Does have hepatitis C. Worsening LFTs today. Will get US with doppler flow. Does not drink ETOH so this is not alcoholic hepatitis. He also has worsening coagulopathy and thrombocytopenia. - Hepatitis C, Tx naive. Pt states he was told that he didn't actually have this, but his viral load was 983,000. - Thrombocytopenia, mild. Worsening. 58,000 - Hepatic encephalopathy. Ammonia 115---> 74, he is alert and oriented with this, Xifaxan/Lactulose. PLAN: - Heart healthy diet, low sodium - Cont. Octreotide gtt x 3 days - Cont. Protonix gtt x 3 days - Cont. Lactulose, Xifaxan - US with doppler flow - Monitor HH - Transfuse as necessary - Fractionate bilirubin - CBC, CMP, PT/INR in am - Supportive care - Further recommendations to follow based on results of above - Pt seen and examined by Dr. Silva and myself and this note is written on his behalf. Yumiko Vale Oct 24, 2016 08:40
[2016-10-24] MEDS: PANTOPRAZOLE INJ 80 MG in SODIUM CHLORIDE 0.9% INJ 100 ML IV SCH ×2 (08:45→20:44)
[2016-10-24] MEDS: OCTREOTIDE INJ 500 MCG in SODIUM CHLORID 0.9% 500 ML INJ 500 ML IV SCH ×2 (08:45→22:46)
[2016-10-24] MEDS: SODIUM CHLOR 0.9% 1000 ML INJ 1,000 ML IV SCH (09:17)
--- NOTE | 2016-10-24 09:57 | HHI.CCPN ---
Subjective Remarks/Hospital Course 56-year-old male with a history of cirrhosis, followed by Dr. Huerta who has been recently discharged after evaluation of chronic abdominal pain and portal vein thrombosis, reports feeling lightheaded upon standing up for the past 8 hours. He's had dark red stool, numerous episodes. Critical-care medicine was consulted to evaluate and manage his anemia and possible GI bleed. Subjective 10/24 - status post EGD yesterday which revealed gastritis and grade 1 esophageal varices. Continues on Protonix and octreotide drips. Denies abdominal pain. Objective Vital Signs Date Time Temp Pulse Resp B/P Pulse Ox O2 Delivery O2 Flow Rate FiO2 10/24/16 09:07 18 10/24/16 08:00 97.8 60 122/69 98 10/23/16 13:20 Nasal Cannula 2 Intake and Output 10/23/16 10/23/16 10/24/16 08:00 16:00 00:00 Intake Total 300 ml 3441 ml Output Total 0 ml 1000 ml Balance 300 ml 2441 ml Result Diagram: 10/24/16 0328 10/24/16 0328 Objective Remarks GENERAL: 56-year-old male, resting in bed in no acute distress SKIN: Warm and dry. Positive positive spider angiomas HEAD: Atraumatic. Normocephalic. EYES: Pupils equal and round. No scleral icterus. No injection or drainage. ENT: No nasal bleeding or discharge. Mucous membranes pink and moist. NECK: Trachea midline. No JVD. CARDIOVASCULAR: Regular rate and rhythm. S1, S2 no S4. RESPIRATORY: No accessory muscle use. Clear to auscultation. Breath sounds equal bilaterally. GASTROINTESTINAL: Abdomen distended, tender to deep palpation. Hypoactive bowel sounds MUSCULOSKELETAL: Extremities trace lower extremity edema. No obvious deformities. NEUROLOGICAL: Awake and alert. No obvious cranial nerve deficits. Motor grossly within normal limits. Five out of 5 muscle strength in the arms and legs. Normal speech. No asterixis A/P Problem List: (1) Gastritis ICD Code: K29.70 Status: Acute (2) GI bleed ICD Code: K92.2 Status: Acute (3) Anemia ICD Code: D64.9 Status: Acute Assessment and Plan Neuro/Psych: Diabetic neuropathy Depression History of hepatic encephalopathy Continue BuSpar 10 mg 3 times a day for depression and Lyrica 200 mg 3 times a day for neuropathy Switched oxycodone 5 mill grams every 4 hours when necessary for pain. Baclofen 20 mg 3 times a day held See GI for management of hepatic encephalopathy CV: ypertension History of PFO right left shunting. DyslipidemiaH Holding Norvasc 5 mg by mouth daily/home medication Holding aspirin 325 mg by mouth daily light of GI bleed Echocardiogram 09/15 revealed PFO right left shunting EF 50%. Possible basilar inferior akinesis. Medical management recommended by Dr. Hernandez for PFO. Discontinue normal saline at 1 75 cc an hour. Resp: History of COPD Nasal cannula to maintain saturations greater than equal to 92% Incentive spirometry while awake GI: Esophageal varices Gastritis Abdominal ascites Liver cirrhosis History of hepatitis C Continue Protonix drip at 8 g an hour octreotide drip at 50 g an hour for esophageal varices/gastritis Currently holding home medications of Lasix 40 no grams daily, spironolactone 100 mg daily in light of hypotension. Resume propranolol 20 milligrams by mouth daily S/P EGD (10/23/16)----> gastropathy, grade I esophageal varices. Follow-up on liver ultrasound rule out portal vein thrombosis : Rosado has been placed for accurate I's and O's in a critically ill patient Endo: Diabetes mellitus Sliding-scale insulin with Accu-Cheks to maintain euglycemia/low regimen Renal: Accurate I's and output Monitor urine output. Follow BMP in a.m. Heme: Iron deficiency anemia/acute blood loss History of portal vein thrombosis Status post 4 units PRBC. Hemoglobin 9.5 Follow-up CBC and coags in AM. ID: Currently on prophylactic Rocephin FEN: Replace electrolytes as clinically indicated MSK: PT evaluate and treat Holding baclofen 20 milligrams 3 times a day for muscle spasms DVT GI prophylaxis - Protonix IV - Teds SCDs, no chemical DVT prophylaxis due to GI bleed Critical Care: The total care time was 35 minutes. Time to perform other separately billable procedures was not included in the critical care time. Problem Qualifiers (1) GI bleed: Qualified Code: K92.2 - Gastrointestinal hemorrhage, unspecified gastrointestinal hemorrhage type (2) Anemia: Qualified Code: D62 - Acute posthemorrhagic anemia Kraig Isaac MD Oct 24, 2016 09:57 Portal vein thrombosis - Per GI DVT GI prophylaxis - Protonix IV - Teds SCDs, no chemical DVT prophylaxis due to GI bleed Critical Care: The total critical care time was 35 minutes. Time to perform other separately billable procedures was not included in the critical care time. Problem Qualifiers (1) GI bleed: Qualified Code: K92.2 - Gastrointestinal hemorrhage, unspecified gastrointestinal hemorrhage type (2) Anemia: Qualified Code: D62 - Acute posthemorrhagic anemia Kraig Isaac MD Oct 24, 2016 09:57
[2016-10-24] MEDS ORDERED: ONDANSETRON HCL 4 MG/2 ML VIAL IV PRN (10:15)
[2016-10-24] MEDS ORDERED: RESP: ALBUTEROL 2.5 MG/IPRATROPIUM 0.5 MG NEB (PRN) INH (10:15)
[2016-10-24 11:45] LABS: INDIRECT BILIRUBIN 0.4 MG/DL (0.0-0.8); TOTAL BILIRUBIN ADULT 0.9 MG/DL (0.2-1.0)
--- NOTE | 2016-10-24 18:30 | MR ---
cc: OVIDIO SILVA M.D. DATE: 10/23/2016 DATE OF : 1960. REFERRING PHYSICIAN: Dr. Landrum. PROCEDURE PERFORMED: Upper gastrointestinal endoscopy with biopsy. ENDOSCOPIST: Ovidio Silva MD. MEDICATIONS: Propofol administered by anesthesia after intubation. INDICATIONS FOR THE PROCEDURE: This is a 56-year-old gentleman who has a history of anemia and GI bleed. DESCRIPTION OF THE PROCEDURE IN DETAIL: The patient was intubated. The scope was placed in the mouth and advanced under video guidance to the second portion of the duodenum. The scope was drawn back to the stomach. Retroflexion was performed. Biopsy was done and then the scope drawn back without immediate complication. FINDINGS: 1. Esophagus: Grade 1 esophageal varices. No active bleeding. 2. Severe gastropathy throughout the stomach with significant signs of portal hypertension most likely the reason for the bleeding is the gastropathy with diffuse oozing. No active bleeding at this time. 3. Duodenum normal. 4. No ulcers. RECOMMENDATIONS: 1. Follow-up biopsy. 2. Clear liquids. 3. No alcohol or NSAIDs. 4. Will start Inderal 20 mg daily to reduce portal hypertension. 5. Further workup for liver disease to see if there is any reversible cause. Ovidio Silva MD /KEAT[place] /12:55 PM /6:19 PM
[2016-10-25] VITALS (14 sets, daily range): BP systolic 103–159; BP diastolic 58–77; PULSE 55–78; RESP 9–20; TEMP 97.9–98.7; O2SAT 96–99
--- NOTE | 2016-10-25 00:19 | RADRPT ---
EXAM DATE/TIME: 10/24/2016 21:00 [facility] COMPARISON: CTA ABDOMEN W 3D RECON, September 19, 2016, 2:31. EXTERNAL COMPARISON : [facility], US ABDOMEN, COMPLETE, September 15, 2016, [facility], CT ABDOMEN & PELVIS W & W/O CONTRAST, June 05, 2010, CT ABDOMEN & PELVIS W CONTRAST, November 13, 2009 INDICATIONS : Cirrhosis with worsening liver function tests, coagulopathy, thrombocytopenia. MEDICAL HISTORY : Hypercholesterolemia. Hypertension. Hepatitis C. Diabetes. Cirrhosis. Diabetic neuropathy. Hematemesi s. Melena. Anticoagulant therapy, Aspirin. SURGICAL HISTORY : Tonsillectomy. Appendectomy. Right claviclar metal plate. Pins placed and removed from hands. Blood transfusions. ENCOUNTER: Initial ACUITY: 1 day PAIN SCORE: 3/10 LOCATION: Bilateral upper quadrant MEASUREMENTS: LIVER: 17.4 cm length COMMON DUCT: 5 mm RIGHT KIDNEY: 11.8 x 5.9 x 6.1 cm SPLEEN: 17.7 cm length FINDINGS: LIVER: Cirrhotic appearing liver with ascites. Hepatopedal flow in the main portal vein. COMMON DUCT: No intraluminal mass or stone visualized. GALLBLADDER: There are no stones however sludge is seen within the gallbladder. Mild gallbladder wall thickening/e umberto of the 9 mm. PANCREAS: The visualized portions are within normal limits. RIGHT KIDNEY: No hydronephrosis, stone or mass. LEFT KIDNEY: No hydronephrosis, stone or mass. SPLEEN: No focal lesion. AORTA: Non aneurysmal. IVC: Within normal limits. CONCLUSION: 1. Splenomegaly, cirrhosis and portal hypertension with ascites. 2. Patent hepatic and portal veins. 3. Gallbladder wall thickening, pericholecystic fluid and gallbladder sludge. Jorge Bolanos MD on October 25, 2016 at 0:16 Board Certified Radiologist. This report was verified electronically.
[2016-10-25] MEDS: MORPHINE SULFATE 4 MG/ML INJ IV PRN ×7 (03:04→23:31)
[2016-10-25] MEDS: cefTRIAXone INJ 1,000 MG in SODIUM CHLORIDE 0.9% INJ 100 ML IV SCH (03:05)
[2016-10-25] MEDS: CHLORHEXIDINE GLUCONATE 2 % 1 PACK (2 CLOTHS) TOP SCH (03:09)
[2016-10-25] MEDS: OCTREOTIDE INJ 500 MCG in SODIUM CHLORID 0.9% 500 ML INJ 500 ML IV SCH ×2 (04:45→14:45)
[2016-10-25] MEDS: PANTOPRAZOLE INJ 80 MG in SODIUM CHLORIDE 0.9% INJ 100 ML IV SCH ×2 (04:45→14:45)
[2016-10-25] MEDS: LACTULOSE SYRUP 20 GM/30 ML CUP PO SCH ×4 (08:08→20:57)
[2016-10-25] MEDS: LACTOBACILLUS ACIDOPHILUS TAB PO SCH (08:09)
[2016-10-25] MEDS: busPIRone HCL 10 MG TAB PO SCH ×3 (08:09→18:26)
[2016-10-25] MEDS: PREGABALIN 100 MG CAP PO SCH ×3 (08:09→18:26)
[2016-10-25] MEDS: PROPRANOLOL HCL 20 MG TAB PO SCH (08:09)
[2016-10-25] MEDS: DOCUSATE SODIUM 100 MG CAP PO SCH ×2 (08:09→20:57)
[2016-10-25] MEDS: CYANOCOBALAMIN 1,000 MCG TAB PO SCH (08:09)
[2016-10-25] MEDS: RIFAXIMIN 550 MG TAB PO SCH ×2 (08:09→20:57)
[2016-10-25] MEDS: SODIUM CHLORIDE 0.9% FLUSH 5 ML FLUSH IV FLUSH SCH ×2 (08:09→20:57)
--- NOTE | 2016-10-25 11:44 | HHI.GIFU ---
Subjective Remarks 56 yo male lying in bed in no apparent distress. No abdominal pain. Reports BM x 3 with dark maroon color mixed in with it. Objective Vitals I&O Vital Signs Date Time Temp Pulse Resp B/P Pulse Ox O2 Delivery O2 Flow Rate FiO2 10/25/16 10:00 62 10/25/16 08:54 16 10/25/16 08:31 96 21 10/25/16 08:15 16 10/25/16 08:00 63 10/25/16 08:00 97.9 61 18 159/77 99 10/25/16 06:45 16 10/25/16 06:00 62 10/25/16 04:00 59 10/25/16 04:00 98.2 59 12 103/62 98 10/25/16 00:00 61 10/25/16 00:00 98.4 61 12 106/61 96 10/24/16 22:00 103 10/24/16 20:36 98 21 10/24/16 20:00 60 10/24/16 20:00 98.8 61 9 120/64 98 10/24/16 18:00 64 10/24/16 16:00 97.8 61 18 98/66 100 10/24/16 16:00 63 10/24/16 14:00 64 10/24/16 12:00 63 10/24/16 12:00 97.8 62 20 122/72 100 I/O 10/24/16 10/24/16 10/24/16 10/25/16 10/25/16 10/25/16 07:00 15:00 23:00 07:00 15:00 23:00 Intake Total 2016 ml 2310 ml 710 ml Output Total 2800 ml 2320 ml Balance -783 ml -10 ml 710 ml Intake Oral 540 ml 240 ml IV Total 2017 ml 1770 ml 470 ml Output Urine Total 2800 ml 2320 ml # Voids 2 3 # Bowel Movements 1 2 Laboratory Laboratory Tests Test 10/23/16 10/23/16 10/23/16 10/23/16 02:05 06:30 10:44 16:01 Prothrombin Time 13.6 SEC Prothromb Time International 1.2 RATIO Ratio Activated Partial 26.4 SEC Thromboplast Time Lipase 157 U/L Ethyl Alcohol Level LESS THAN 3 MG/DL Antibody Screen NEGATIVE Nasal Screen MRSA (PCR) NEGATIVE Protein Corrected Calcium 8.6 MG/DL Blood Type A POSITIVE Crossmatch Leukocyte-Reduced Red Blood Cells Blood Bank Comment Test 10/24/16 10/24/16 03:28 10:54 White Blood Count 4.0 TH/MM3 Red Blood Count 3.18 MIL/MM3 Hemoglobin 9.5 GM/DL Hematocrit 28.0 % Mean Corpuscular Volume 88.1 FL Mean Corpuscular Hemoglobin 30.0 PG Mean Corpuscular Hemoglobin 34.0 % Concent Red Cell Distribution Width 18.5 % Platelet Count 58 TH/MM3 Mean Platelet Volume 10.5 FL Neutrophils (%) (Auto) 54.5 % Lymphocytes (%) (Auto) 34.0 % Monocytes (%) (Auto) 7.5 % Eosinophils (%) (Auto) 2.8 % Basophils (%) (Auto) 1.2 % Neutrophils # (Auto) 2.2 TH/MM3 Lymphocytes # (Auto) 1.4 TH/MM3 Monocytes # (Auto) 0.3 TH/MM3 Eosinophils # (Auto) 0.1 TH/MM3 Basophils # (Auto) 0.1 TH/MM3 CBC Comment AUTO DIFF Differential Comment AUTO DIFF CONFIRMED Platelet Estimate LOW Platelet Morphology Comment NORMAL Tear Drop Cells 1+ Ovalocytes 1+ Sodium Level 145 MEQ/L Potassium Level 4.2 MEQ/L Chloride Level 113 MEQ/L Carbon Dioxide Level 25.0 MEQ/L Anion Gap 7 MEQ/L Blood Urea Nitrogen 43 MG/DL Creatinine 0.99 MG/DL Estimat Glomerular Filtration 78 ML/MIN Rate Random Glucose 114 MG/DL Calcium Level 8.2 MG/DL Phosphorus Level 3.1 MG/DL Magnesium Level 1.6 MG/DL Aspartate Amino Transf 255 U/L (AST/SGOT) Alanine Aminotransferase 167 U/L (ALT/SGPT) Alkaline Phosphatase 70 U/L Ammonia 74 MCMOL/L Total Protein 5.5 GM/DL Albumin 2.4 GM/DL Total Bilirubin 0.9 MG/DL Direct Bilirubin 0.5 MG/DL Indirect Bilirubin 0.4 MG/DL Imaging Last Impressions Liver Ultrasound 10/24/16 0000 Signed Impressions: Service Date/Time: Monday, October 24, 2016 21:00 - CONCLUSION: 1. Splenomegaly, cirrhosis and portal hypertension with ascites. 2. Patent hepatic and portal veins. 3. Gallbladder wall thickening, pericholecystic fluid and gallbladder sludge. Jorge Bolanos MD Physical Exam HEENT: PERRLA Normocephalic; atraumatic; no jaundice. CHEST: CTA CARDIAC: RRR ABDOMEN: Soft, nondistended, nontender; no hepatosplenomegaly; bowel sounds x 4 quadrants. EXTREMITIES: No clubbing, cyanosis, or edema. SKIN: Normal; no rash; no jaundice. RADIOLOGY ASSISTANT: No focal deficits; A&O x 3. Assessment and Plan Plan ASSESSMENT: - GIB, Hematemesis/Hematochezia with dark maroon blood. Pt with hx of portal thrombosis, esophageal varices, liver cirrhosis. Last EGD/Colonoscopy (09/21/16)---> Gastritis in the antrum, esophageal varices grade 2, retroflexion revealed hiatal hernia, semisolid stool in right and left colon, retroflexed views revealed medium internal hemorrhoids, external hemorrhoids. Pathology revealed antral mucosa with moderate active chronic gastritis, Cristi stain is negative for Helicobacter. The plan was for a repeat colonoscopy in 3 months. Ran out of PPI a few weeks ago and came to the ER for GI bleeding. S/P EGD (10/23/16)----> gastropathy, grade I esophageal varices. S/P 4 units PRBC. HH 9.5/28.0. - Liver cirrhosis, T Bili 0.9, AST 255, ALT 167, Alk Phosph 70. Does not drink ETOH. Does have hepatitis C. Does not drink ETOH so this is not alcoholic hepatitis. He also has worsening coagulopathy and thrombocytopenia. Liver US -->1. Splenomegaly, cirrhosis and portal hypertension with ascites. 2. Patent hepatic and portal veins. 3. Gallbladder wall thickening, pericholecystic fluid and gallbladder sludge. - Hepatitis C, Tx naive. Pt states he was told that he didn't actually have this, but his viral load was 983,000. - Thrombocytopenia, mild. Worsening. 58,000 - Hepatic encephalopathy. Ammonia 115---> 74, he is alert and oriented with this, Xifaxan/Lactulose. PLAN: - Heart healthy diet, low sodium - Cont. Octreotide gtt x 3 days - Cont. Protonix gtt x 3 days - Cont. Lactulose, Xifaxan - Monitor HH - Transfuse as necessary - Supportive care - Further recommendations to follow based on results of above Pt seen and examined by Dr. Silva and myself and this note is written on his behalf. Linsey Morocho Oct 25, 2016 11:44
[2016-10-25 14:57] LABS: BASOPHIL % 0.8 % (0.0-2.0); EOSINOPHIL # 0.1 TH/MM3 (0-0.4); EOSINOPHIL % 3.5 % (0.0-4.0); HEMATOCRIT 25.2 % (39.0-51.0); LYMPH % 21.1 % (9.0-44.0); LYMPHOCYTE # 0.7 TH/MM3 (1.0-4.8); MEAN CELL VOLUME 89.8 FL (80.0-100.0); MEAN CORPUSCULAR HEMOGLOBIN 29.8 PG (27.0-34.0); MEAN CORPUSCULAR HGB CONC 33.2 % (32.0-36.0); MONO % 10.9 % (0.0-8.0); NEUT % 63.7 % (16.0-70.0); PLATELET COUNT 54 TH/MM3 (150-450); RED BLOOD COUNT 2.81 MIL/MM3 (4.50-5.90); RED CELL DISTRIBUTION WIDTH 18.5 % (11.6-17.2); WHITE BLOOD COUNT 3.2 TH/MM3 (4.0-11.0)
[2016-10-25 15:01] LABS: HEMO FLAGS AUTO DIFF
[2016-10-25 15:09] LABS: INTERNATIONAL NORMALIZED RATIO 1.1 RATIO; PROTHROMBIN TIME - PATIENT 12.3 SEC (9.8-11.6)
--- NOTE | 2016-10-25 15:11 | HHI.CCPN ---
Subjective Remarks/Hospital Course 56-year-old male with a history of cirrhosis, followed by Dr. Huerta who has been recently discharged after evaluation of chronic abdominal pain and portal vein thrombosis, reports feeling lightheaded upon standing up for the past 8 hours. He's had dark red stool, numerous episodes. Critical-care medicine was consulted to evaluate and manage his anemia and possible GI bleed. 10/24 - status post EGD yesterday which revealed gastritis and grade 1 esophageal varices. Continues on Protonix and octreotide drips. Denies abdominal pain. Subjective 10/25: Afebrile. No active bleeding. Protonix octreotide drips okayed to be just discontinued by GI. Abdominal pain much improved. Tolerating diet. Positive BM Objective Vital Signs Date Time Temp Pulse Resp B/P Pulse Ox O2 Delivery O2 Flow Rate FiO2 10/25/16 14:00 62 10/25/16 13:18 16 10/25/16 12:00 98.0 103/58 99 10/25/16 08:31 21 10/23/16 13:20 Nasal Cannula 2 Intake and Output 10/24/16 10/24/16 10/25/16 08:00 16:00 00:00 Intake Total 2017 ml 2310 ml Output Total 2800 ml 2320 ml Balance -783 ml -10 ml Result Diagram: 10/24/16 0328 10/24/16 0328 Imaging Last Impressions Liver Ultrasound 10/24/16 0000 Signed Impressions: Service Date/Time: Monday, October 24, 2016 21:00 - CONCLUSION: 1. Splenomegaly, cirrhosis and portal hypertension with ascites. 2. Patent hepatic and portal veins. 3. Gallbladder wall thickening, pericholecystic fluid and gallbladder sludge. Jorge Bolanos MD Objective Remarks GENERAL: 56-year-old male, resting in bed in no acute distress SKIN: Warm and dry. Positive positive spider angiomas HEAD: Atraumatic. Normocephalic. EYES: Pupils equal and round. No scleral icterus. No injection or drainage. ENT: No nasal bleeding or discharge. Mucous membranes pink and moist. NECK: Trachea midline. No JVD. CARDIOVASCULAR: Regular rate and rhythm. S1, S2 no S4. RESPIRATORY: No accessory muscle use. Clear to auscultation. Breath sounds equal bilaterally. GASTROINTESTINAL: Abdomen distended, tender to deep palpation. Hypoactive bowel sounds MUSCULOSKELETAL: Extremities trace lower extremity edema. No obvious deformities. NEUROLOGICAL: Awake and alert. No obvious cranial nerve deficits. Motor grossly within normal limits. Five out of 5 muscle strength in the arms and legs. Normal speech. No asterixis A/P Problem List: (1) Gastritis ICD Code: K29.70 Status: Acute (2) GI bleed ICD Code: K92.2 Status: Acute (3) Anemia ICD Code: D64.9 Status: Acute Assessment and Plan Neuro/Psych: Diabetic neuropathy Depression History of hepatic encephalopathy Continue BuSpar 10 mg 3 times a day for depression and Lyrica 200 mg 3 times a day for neuropathy Switched oxycodone 5 milligrams every 4 hours when necessary for pain. Baclofen 20 mg 3 times a day held See GI for management of hepatic encephalopathy CV: Hypertension History of PFO right- left shunting. Dyslipidemia Holding Norvasc 5 mg by mouth daily/home medication Holding aspirin 325 mg by mouth daily light of GI bleed Echocardiogram 09/15 revealed PFO right left shunting EF 50%. Possible basilar inferior akinesis. Medical management recommended by Dr. Hernandez for PFO. Resp: History of COPD Nasal cannula to maintain saturations greater than equal to 92% Incentive spirometry while awake GI: Esophageal varices Gastritis Abdominal ascites Liver cirrhosis History of hepatitis C Continue Protonix drip at 8 g an hour octreotide drip at 50 g an hour for esophageal varices/gastritis will be discontinued today. Start on Protonix 40 mg IV twice a day Currently holding home medications of Lasix 40 mg daily, spironolactone 100 mg daily in light of hypotension. -Switch to Lasix 20 mg daily and spironolactone 25 mg daily started with blood pressure allows Resume propranolol 20 milligrams by mouth daily and add Isordil 5 mg 3 times a day for portal gastropathy S/P EGD (10/23/16)----> gastropathy, grade I esophageal varices. 10/24 liver ultrasound ruled out portal vein thrombosis. Positive gallbladder wall thickness likely secondary to ascites. : Rosado has been placed for accurate I's and O's in a critically ill patient Endo: Diabetes mellitus Sliding-scale insulin with Accu-Cheks to maintain euglycemia/low regimen Renal: Accurate I's and output Monitor urine output. Follow BMP in a.m. Heme: Iron deficiency anemia/acute blood loss History of portal vein thrombosis Status post 4 units PRBC. Hemoglobin 8.4 Follow-up CBC and coags in AM. ID: Currently on prophylactic Rocephin 2 #3 FEN: Replace electrolytes as clinically indicated MSK: PT evaluate and treat Holding baclofen 20 milligrams 3 times a day for muscle spasms DVT GI prophylaxis - Protonix IV - Teds SCDs, no chemical DVT prophylaxis due to GI bleed Critical Care: The total care time was 35 minutes. Time to perform other separately billable procedures was not included in the critical care time. Patient is stable from a critical care medicine standpoint. We will assign care to hospitalist in a.m. 10/26. Problem Qualifiers (1) GI bleed: Qualified Code: K92.2 - Gastrointestinal hemorrhage, unspecified gastrointestinal hemorrhage type (2) Anemia: Qualified Code: D62 - Acute posthemorrhagic anemia Kraig Isaac MD Oct 25, 2016 15:11
[2016-10-25 15:21] LABS: BICARBONATE 24.4 MEQ/L (21.0-32.0); CALCIUM-PROTEIN CORRECTED 8.5 MG/DL (8.5-10.1); MAGNESIUM 1.5 MG/DL (1.5-2.5); TOTAL BILIRUBIN ADULT 1.6 MG/DL (0.2-1.0)
[2016-10-25 15:36] LABS: PLATELET ESTIMATE SMEAR LOW (NORMAL); PLATELET MORPHOLOGY NORMAL (NORMAL); SCAN/DIFF AUTO DIFF CONFIRMED
[2016-10-25] MEDS: PANTOPRAZOLE SODIUM 40 MG VIAL IV PUSH SCH (16:02)
[2016-10-25] MEDS: ISOSORBIDE DINITRATE 5 MG TAB PO SCH (17:00)
[2016-10-26] VITALS (7 sets, daily range): BP systolic 104–154; BP diastolic 58–92; PULSE 58–88; RESP 16–20; TEMP 97.4–99.6; O2SAT 97–100
[2016-10-26] MEDS: MORPHINE SULFATE 4 MG/ML INJ IV PRN (01:29)
[2016-10-26] MEDS: cefTRIAXone INJ 1,000 MG in SODIUM CHLORIDE 0.9% INJ 100 ML IV SCH (03:41)
[2016-10-26] MEDS: PANTOPRAZOLE SODIUM 40 MG VIAL IV PUSH SCH (03:41)
[2016-10-26] MEDS: CHLORHEXIDINE GLUCONATE 2 % 1 PACK (2 CLOTHS) TOP SCH (03:41)
[2016-10-26 07:13] LABS: HEMATOCRIT 28.9 % (39.0-51.0); MEAN CELL VOLUME 89.7 FL (80.0-100.0); MEAN CORPUSCULAR HEMOGLOBIN 29.4 PG (27.0-34.0); MEAN CORPUSCULAR HGB CONC 32.8 % (32.0-36.0); PLATELET COUNT 76 TH/MM3 (150-450); RED BLOOD COUNT 3.22 MIL/MM3 (4.50-5.90); RED CELL DISTRIBUTION WIDTH 18.4 % (11.6-17.2); WHITE BLOOD COUNT 4.5 TH/MM3 (4.0-11.0)
[2016-10-26 07:16] LABS: REVIEW FLAG FINAL
[2016-10-26 07:49] LABS: ALKALINE PHOSPHATASE 83 U/L (45-117); ALT (GPT) 107 U/L (12-78); ANION GAP 7 MEQ/L (5-15); AST (GOT) 103 U/L (15-37); BICARBONATE 27.8 MEQ/L (21.0-32.0); BLOOD UREA NITROGEN 15 MG/DL (7-18); CHLORIDE 104 MEQ/L (98-107); GLOMERULAR FILTRATION RATE 90 ML/MIN (>89); MAGNESIUM 1.6 MG/DL (1.5-2.5); POTASSIUM 3.6 MEQ/L (3.5-5.1); SODIUM (NA) 139 MEQ/L (136-145); TOTAL BILIRUBIN ADULT 3.1 MG/DL (0.2-1.0)
--- NOTE | 2016-10-26 08:00 | HHI.PR ---
Subjective Remarks resting comfortably with no distress. no further GI bleed. no new complaints. Objective Vitals Vital Signs Date Time Temp Pulse Resp B/P Pulse Ox O2 Delivery O2 Flow Rate FiO2 10/26/16 04:00 98.3 66 17 135/72 100 10/26/16 00:00 99.6 65 16 147/70 97 10/25/16 23:30 78 10/25/16 23:03 7 10/25/16 22:00 61 10/25/16 21:10 99 21 10/25/16 21:09 14 10/25/16 21:01 9 10/25/16 20:00 60 10/25/16 20:00 98.7 59 9 104/58 98 10/25/16 18:00 62 10/25/16 16:00 55 10/25/16 16:00 97.9 55 20 122/66 99 10/25/16 14:00 62 10/25/16 12:00 98.0 61 18 103/58 99 10/25/16 12:00 55 10/25/16 10:00 62 10/25/16 08:31 96 21 10/25/16 08:00 63 10/25/16 08:00 97.9 61 18 159/77 99 I/O 10/25/16 10/25/16 10/25/16 10/26/16 10/26/16 10/26/16 07:00 15:00 23:00 07:00 15:00 23:00 Intake Total 710 ml 980 ml 120 ml 480 ml Output Total 1000 ml 840 ml 400 ml Balance 710 ml -20 ml -720 ml 80 ml Intake Oral 240 ml 480 ml 120 ml 480 ml IV Total 470 ml 500 ml Output Urine Total 1000 ml 840 ml 400 ml # Voids 3 2 2 # Bowel Movements 2 0 1 Result Diagram: 10/26/16 0650 10/25/16 1440 Imaging Last Impressions Liver Ultrasound 10/24/16 0000 Signed Impressions: Service Date/Time: Monday, October 24, 2016 21:00 - CONCLUSION: 1. Splenomegaly, cirrhosis and portal hypertension with ascites. 2. Patent hepatic and portal veins. 3. Gallbladder wall thickening, pericholecystic fluid and gallbladder sludge. Jorge Bolanos MD Objective Remarks GENERAL: This is a well-nourished, well-developed patient, in no apparent distress. CARDIOVASCULAR: Regular rate and regular rhythm without murmurs, gallops, or rubs. RESPIRATORY: Clear to auscultation. Breath sounds equal bilaterally. No wheezes , rales, or rhonchi. GASTROINTESTINAL: Abdomen soft, non-tender, nondistended. Normal, active bowel sounds MUSCULOSKELETAL: Extremities without clubbing, cyanosis, or edema. NEURO: Alert & Oriented x4 to person, place, time, situation. Moves all ext x4 Procedures EGD Medications and IVs Current Medications Pantoprazole Sodium (Protonix Inj) 40 mg ONCE ONCE IVP Last administered on 02:15; Start 10/23/16 at 02:00; Stop 10/23/16 at 02:01; Status DC IV Flush 2 ml 2 ml UNSCH PRN IVF FLUSH AFTER USING IV ACCESS; Start 10/23/16 at 02:00; Stop 10/23/16 at 04:54; Status DC Sodium Chloride 250 ml @ 15 mls/hr ONCE ONCE IV Last administered on 04:34; Start 10/23/16 at 02:45; Stop 10/23/16 at 19:24; Status DC Sodium Chloride 1,000 ml @ 999 mls/hr BOLUS ONCE IV Last administered on 10/23 02:38; Start 10/23/16 at 02:45; Stop 10/23/16 at 03:45; Status DC Pantoprazole Sodium 80 mg/ Sodium Chloride 100 ml @ 10 mls/hr Q10H IV Last administered on 10/25/16 14:45; Start 10/23/16 at 02:45; Stop 10/25/16 at 15:01 ; Status DC Ceftriaxone Sodium 1000 mg/ Sodium Chloride 100 ml @ 200 mls/hr ONCE ONCE IV Last administered on 10/23/16 03:10; Start 10/23/16 at 02:45; Stop 10/23/16 at 03:14; Status DC Octreotide Acetate/Sodium Chloride (SandoSTATIN INJ/ NS 500 ml Inj) 500.5 ml @ 50 mls/hr Q10H IV Last administered on 10/25/16 14:45; Start 10/23/16 at 02:45 ; Stop 10/25/16 at 15:01; Status DC Lactulose (Lactulose Liq) 30 ml ONCE ONCE PO Last administered on 10/23/16 03 :10; Start 10/23/16 at 03:00; Stop 10/23/16 at 03:01; Status DC Hydromorphone HCl (Dilaudid Pf Inj) 0.5 mg ONCE ONCE IV PUSH Last administered on 10/23/16 04:35; Start 10/23/16 at 04:30; Stop 10/23/16 at 04:31 ; Status DC Promethazine HCl 25 mg 25 mg ONCE ONCE IM Last administered on 10/23/16 04:35 ; Start 10/23/16 at 04:30; Stop 10/23/16 at 04:31; Status DC Sodium Chloride (NS 1000 ml Inj) 1,000 ml @ 175 mls/hr Q5H43M IV ; Start at 04:42; Stop 10/24/16 at 10:06; Status DC IV Flush (NS Flush) 2 ml UNSCH PRN IV FLUSH FLUSH AFTER USING IV ACCESS; Start 10/23/16 at 04:45 IV Flush (NS Flush) 2 ml BID IV FLUSH Last administered on 10/25/16 20:57; Start 10/23/16 at 09:00 Acetaminophen (Tylenol) 650 mg Q6H PRN PO PAIN 1-5 AND/OR FEVER >101F; Start at 04:45; Stop 10/24/16 at 10:08; Status DC Morphine Sulfate (Morphine Inj) 2 mg Q2H PRN IV PAIN SCALE 6 TO 10 Last administered on 10/26/16 01:29; Start 10/23/16 at 04:45 Pantoprazole Sodium (Protonix Inj) 40 mg Q12H IV Last administered on 06:08; Start 10/23/16 at 06:00; Stop 10/24/16 at 10:06; Status DC Lorazepam (Ativan Inj) 2 mg Q4H PRN IV Agitation/Sedation Last administered on 10/23/16 18:03; Start 10/23/16 at 04:45 Ondansetron HCl (Zofran Inj) 4 mg Q6H PRN IV NAUSEA OR VOMITING; Start at 04:45 Metoclopramide HCl (Reglan Inj) 10 mg Q6H PRN IV NAUSEA OR VOMITING; Start at 04:45 Docusate Sodium (Colace) 100 mg BID PO Last administered on 10/25/16 08:09; Start 10/23/16 at 09:00 Albuterol/ Ipratropium (Duoneb Neb) 1 ampule Q2HR NEB PRN INH WHEEZING; Start 10/23/16 at 04:45 Miscellaneous Information 1 Q361D XX ; Start 10/23/16 at 04:45 Chlorhexidine Gluconate (Chlorhexidine 2% Cloth) 3 pack Taper DAILY@04 TOP Last administered on 10/26/16 03:41; Start 10/24/16 at 04:00; Stop 10/20/17 at 03:59 Chlorhexidine Gluconate (Chlorhexidine 2% Cloth) 3 pack UNSCH PRN TOP HYGIENIC CARE; Start 10/23/16 at 04:45 Sodium Polystyrene Sulfonate 15 gm 15 gm ONCE ONCE PO Last administered on 15:54; Start 10/23/16 at 05:00; Stop 10/23/16 at 05:01; Status DC Sodium Chloride (NS 1000 ml Inj) 1,000 ml @ 999 mls/hr BOLUS ONCE IV ; Start 10/23/16 at 05:00; Stop 10/23/16 at 06:00; Status DC Buspirone HCl (Buspar) 10 mg TID PO Last administered on 10/25/16 18:26; Start 10/23/16 at 09:00 Acetaminophen/ Hydrocodone Bitart ([place] 10-325 Mg) 1 tab 5 TIMES A DAY PRN PO PAIN SCALE 1 TO 5 Last administered on 10/24/16 08:03; Start 10/23/16 at 05:15 ; Stop 10/24/16 at 10:08; Status DC Lactobacillus Acidophilus (Lactinex) 1 tab DAILY PO Last administered on 08:09; Start 10/23/16 at 05:15 Cyanocobalamin (Vitamin B12) 1,000 mcg DAILY PO Last administered on 10/25/16 08:09; Start 10/23/16 at 05:15 Pregabalin (Lyrica) 200 mg TID PO Last administered on 10/25/16 18:26; Start 10/23/16 at 09:00 Rifaximin (Xifaxan) 550 mg BID PO Last administered on 10/25/16 20:57; Start 10/23/16 at 21:00 Lactulose 30 ml 30 ml QID PO Last administered on 10/25/16 20:57; Start at 13:00 Ceftriaxone Sodium/Sodium Chloride (Rocephin Inj/NS Inj) 100 ml @ 200 mls/hr Q24H IV Last administered on 10/26/16 03:41; Start 10/24/16 at 03:00 Ketamine HCl (Ketalar Inj) 500 mg STK-MED ONCE .ROUTE ; Start 10/23/16 at 12:33 ; Stop 10/23/16 at 12:34; Status DC Miscellaneous Information ALL NURSING DEPARTME... UNSCH PRN XX SEE LABEL COMMENTS; Start 10/23/16 at 13:30; Stop 10/24/16 at 13:29; Status DC Propranolol HCl (Inderal) 20 mg DAILY PO Last administered on 10/25/16 08:09; Start 10/24/16 at 09:00 Propofol (Diprivan 200 Mg/20 ml Inj) 200 mg STK-MED ONCE IV ; Start 10/23/16 at 13:03; Stop 10/23/16 at 14:36; Status DC Calcium Gluconate (Calcium Gluconate Inj) 1 gm ONCE ONCE SLOW IVP Last administered on 10/23/16 16:00; Start 10/23/16 at 15:00; Stop 10/23/16 at 15:01 ; Status DC Insulin Human Regular (NovoLIN R INJ) 10 units ONCE ONCE IV PUSH Last administered on 10/23/16 16:13; Start 10/23/16 at 15:00; Stop 10/23/16 at 15:07 ; Status DC Dextrose (D50w (Vial) Inj) 50 ml ONCE ONCE IV PUSH Last administered on 16:13; Start 10/23/16 at 15:00; Stop 10/23/16 at 15:07; Status DC Sodium Bicarbonate (Sodium Bicarbonate 8.4% Inj) 50 meq ONCE ONCE SLOW IVP Last administered on 10/23/16 16:13; Start 10/23/16 at 15:00; Stop 10/23/16 at 15:08; Status DC Oxycodone HCl (Roxicodone) 5 mg Q4H PRN PO PAIN 1 TO 10 AND/OR AGITATION Last administered on 10/26/16 04:49; Start 10/24/16 at 11:00 Ondansetron HCl (Zofran Inj) 4 mg Q6H PRN IV NAUSEA OR VOMITING; Start at 10:15; Status UNV Albuterol/ Ipratropium (Duoneb Neb) 1 ampule Q2HR NEB PRN INH WHEEZING; Start 10/24/16 at 10:15; Status UNV Pantoprazole Sodium (Protonix Inj) 40 mg Q12H IV PUSH Last administered on 10/26 03:41; Start 10/25/16 at 15:00 Furosemide (Lasix) 40 mg DAILY PO ; Start 10/26/16 at 09:00; Stop 10/26/16 at 09 :00; Status DC Spironolactone (Aldactone) 100 mg DAILY PO ; Start 10/26/16 at 09:00; Stop 10/26 at 09:00; Status DC Furosemide (Lasix) 20 mg DAILY PO ; Start 10/26/16 at 09:00 Spironolactone (Aldactone) 25 mg DAILY PO ; Start 10/26/16 at 09:00 Isosorbide Dinitrate (Isordil) 5 mg TIDAC PO ; Start 10/25/16 at 17:00 A/P Assessment and Plan A/P Diabetic neuropathy Depression History of hepatic encephalopathy Continue BuSpar 10 mg 3 times a day for depression and Lyrica 200 mg 3 times a day for neuropathy oxycodone 5 milligrams every 4 hours when necessary for pain. Baclofen 20 mg 3 times a day held See GI for management of hepatic encephalopathy Hypertension History of PFO right- left shunting. Dyslipidemia Holding Norvasc 5 mg by mouth daily/home medication Holding aspirin 325 mg by mouth daily light of GI bleed Echocardiogram 09/15 revealed PFO right left shunting EF 50%. Possible basilar inferior akinesis. Medical management recommended by Dr. Hernandez for PFO. History of COPD Nasal cannula to maintain saturations greater than equal to 92% Incentive spirometry while awake Esophageal varices Gastritis Abdominal ascites Liver cirrhosis History of hepatitis C Continue Protonix continue Lasix , spironolactone Resumed propranolol 20 milligrams by mouth daily and add Isordil 5 mg 3 times a day for portal gastropathy S/P EGD (10/23/16)----> gastropathy, grade I esophageal varices. 10/24 liver ultrasound ruled out portal vein thrombosis. Positive gallbladder wall thickness likely secondary to ascites. Diabetes mellitus Sliding-scale insulin with Accu-Cheks to maintain euglycemia/low regimen Iron deficiency anemia/acute blood loss History of portal vein thrombosis Status post 4 units PRBC. H/H stable. Currently on prophylactic Rocephin 2 #3 DVT GI prophylaxis - Protonix IV - Teds SCDs, no chemical DVT prophylaxis due to GI bleed Discharge Planning possible dc home in am if stable and cleared by GI. Storm Valles MD Oct 26, 2016 08:00
[2016-10-26] MEDS: PREGABALIN 100 MG CAP PO SCH ×3 (08:40→18:22)
[2016-10-26] MEDS: FUROSEMIDE 20 MG TAB PO SCH (08:41)
[2016-10-26] MEDS: LACTULOSE SYRUP 20 GM/30 ML CUP PO SCH ×4 (08:41→21:00)
[2016-10-26] MEDS: LACTOBACILLUS ACIDOPHILUS TAB PO SCH (08:41)
[2016-10-26] MEDS: DOCUSATE SODIUM 100 MG CAP PO SCH ×2 (08:42→21:00)
[2016-10-26] MEDS: CYANOCOBALAMIN 1,000 MCG TAB PO SCH (08:42)
[2016-10-26] MEDS: ISOSORBIDE DINITRATE 5 MG TAB PO SCH ×3 (08:42→15:51)
[2016-10-26] MEDS: SPIRONOLACTONE 25 MG TAB PO SCH (08:42)
[2016-10-26] MEDS: PROPRANOLOL HCL 20 MG TAB PO SCH (08:42)
[2016-10-26] MEDS: busPIRone HCL 10 MG TAB PO SCH ×3 (08:42→18:23)
[2016-10-26] MEDS: RIFAXIMIN 550 MG TAB PO SCH ×2 (08:42→21:00)
[2016-10-26] MEDS: SODIUM CHLORIDE 0.9% FLUSH 5 ML FLUSH IV FLUSH SCH ×2 (08:43→21:00)
[2016-10-26] MEDS ORDERED: FUROSEMIDE 40 MG TAB PO SCH (09:00)
[2016-10-26] MEDS ORDERED: SPIRONOLACTONE 100 MG TAB PO SCH (09:00)
--- NOTE | 2016-10-26 14:19 | HHI.GIFU ---
Subjective Remarks Staying in bed. Has not had any obvious GI bleeding. Denies any nausea, vomiting, abdominal pain. Tolerating diet. The patient he will be discharged early tomorrow morning so that he can still make his pain management appointment smarter at 3 PM (Yumiko Vale) Objective Vitals I&O Vital Signs Date Time Temp Pulse Resp B/P Pulse Ox O2 Delivery O2 Flow Rate FiO2 10/26/16 13:10 97.4 88 18 134/92 99 10/26/16 07:52 98.3 70 20 154/84 99 10/26/16 04:00 98.3 66 17 135/72 100 10/26/16 00:00 99.6 65 16 147/70 97 10/25/16 23:30 78 10/25/16 23:03 7 10/25/16 22:00 61 10/25/16 21:10 99 21 10/25/16 21:09 14 10/25/16 21:01 9 10/25/16 20:00 60 10/25/16 20:00 98.7 59 9 104/58 98 10/25/16 18:00 62 10/25/16 16:00 55 10/25/16 16:00 97.9 55 20 122/66 99 I/O 10/25/16 10/25/16 10/25/16 10/26/16 10/26/16 10/26/16 07:00 15:00 23:00 07:00 15:00 23:00 Intake Total 710 ml 980 ml 120 ml 480 ml 1920 ml Output Total 1000 ml 840 ml 400 ml 700 ml Balance 710 ml -20 ml -720 ml 80 ml 1220 ml Intake Oral 240 ml 480 ml 120 ml 480 ml 1920 ml IV Total 470 ml 500 ml Output Urine Total 1000 ml 840 ml 400 ml 700 ml # Voids 3 2 2 # Bowel Movements 2 0 1 Laboratory Laboratory Tests Test 10/25/16 10/26/16 14:40 06:50 White Blood Count 3.2 4.5 Red Blood Count 2.81 3.22 Hemoglobin 8.4 9.5 Hematocrit 25.2 28.9 Mean Corpuscular Volume 89.8 89.7 Mean Corpuscular Hemoglobin 29.8 29.4 Mean Corpuscular Hemoglobin 33.2 32.8 Concent Red Cell Distribution Width 18.5 18.4 Platelet Count 54 76 Mean Platelet Volume 11.4 10.5 Neutrophils (%) (Auto) 63.7 Lymphocytes (%) (Auto) 21.1 Monocytes (%) (Auto) 10.9 Eosinophils (%) (Auto) 3.5 Basophils (%) (Auto) 0.8 Neutrophils # (Auto) 2.0 Lymphocytes # (Auto) 0.7 Monocytes # (Auto) 0.3 Eosinophils # (Auto) 0.1 Basophils # (Auto) 0.0 CBC Comment AUTO DIFF Differential Comment AUTO DIFF CONFIRMED Platelet Estimate LOW Platelet Morphology Comment NORMAL Red Cell Morphology Comment NORMAL Prothrombin Time 12.3 Prothromb Time International 1.1 Ratio Sodium Level 140 139 Potassium Level 4.0 3.6 Chloride Level 108 104 Carbon Dioxide Level 24.4 27.8 Anion Gap 8 7 Blood Urea Nitrogen 20 15 Creatinine 0.83 0.87 Estimat Glomerular Filtration 95 90 Rate Random Glucose 212 117 Calcium Level 7.4 8.0 Protein Corrected Calcium 8.5 Phosphorus Level 3.5 2.9 Magnesium Level 1.5 1.6 Total Bilirubin 1.6 3.1 Aspartate Amino Transf 114 103 (AST/SGOT) Alanine Aminotransferase 107 107 (ALT/SGPT) Alkaline Phosphatase 66 83 Total Protein 5.1 6.6 Albumin 2.0 2.7 Ammonia 60 Imaging Last Impressions Liver Ultrasound 10/24/16 0000 Signed Impressions: Service Date/Time: Monday, October 24, 2016 21:00 - CONCLUSION: 1. Splenomegaly, cirrhosis and portal hypertension with ascites. 2. Patent hepatic and portal veins. 3. Gallbladder wall thickening, pericholecystic fluid and gallbladder sludge. Jorge Bolanos MD Physical Exam HEENT: PERRLA Normocephalic; atraumatic; no jaundice. CHEST: CTA CARDIAC: RRR ABDOMEN: Soft, nondistended, nontender; no hepatosplenomegaly; bowel sounds x 4 quadrants. EXTREMITIES: No clubbing, cyanosis, or edema. SKIN: Normal; no rash; no jaundice. [place]: No focal deficits; A&O x 3. (Yumiko Vale) Assessment and Plan Plan ASSESSMENT: - GIB, Hematemesis/Hematochezia with dark maroon blood. Pt with hx of portal thrombosis, esophageal varices, liver cirrhosis. Last EGD/Colonoscopy (09/21/16)---> Gastritis in the antrum, esophageal varices grade 2, retroflexion revealed hiatal hernia, semisolid stool in right and left colon, retroflexed views revealed medium internal hemorrhoids, external hemorrhoids. Pathology revealed antral mucosa with moderate active chronic gastritis, Cristi stain is negative for Helicobacter. The plan was for a repeat colonoscopy in 3 months. Ran out of PPI a few weeks ago and came to the ER for GI bleeding. S/P EGD (10/23/16)----> gastropathy, grade I esophageal varices. Pathology moderately active chronic gastritis with no Helicobacter pylori-like organisms present. S/P 4 units PRBC. HH 9.5/28.9. Tolerating diet. No active bleeding - Liver cirrhosis,Does not drink ETOH. Does have hepatitis C. Does not drink ETOH so this is not alcoholic hepatitis. Liver US 10/24/16--> 1. Splenomegaly, cirrhosis and portal hypertension with ascites. 2. Patent hepatic and portal veins. 3. Gallbladder wall thickening, pericholecystic fluid and gallbladder sludge. Total bilirubin 3.1, AST 103, ALT 107, alkaline phosphatase 83 - Hepatitis C, Tx naive. Pt states he was told that he didn't actually have this, but his viral load was 983,000. - Thrombocytopenia, mild. Worsening. 58,000 - Hepatic encephalopathy. Ammonia 60, he is alert and oriented with this, Xifaxan/Lactulose. PLAN: - Heart healthy diet, low sodium - Change Protonix to 40mg po BID - Cont. Lactulose, Xifaxan - Cont. Lasix, Spironolactone. - Monitor HH - Transfuse as necessary - Supportive care - Okay to d/c home in am if no further bleeding - FU CLIFF 2 weeks - Further recommendations to follow based on results of above - Pt seen and examined by Dr. Menon and myself and this note is written on his behalf. (Yumiko Vale) Physician Comments Patient seen and examined Agree with above Continue with current supportive care Monitor labs Not much to add from a GI standpoint at this point in time we will sign off ( Romeo Menon MD) Yumiko Vale Oct 26, 2016 14:19 Romeo Menon MD Oct 26, 2016 23:07
[2016-10-26] MEDS: PANTOPRAZOLE SOD 40 MG DELAYED RELEASE TAB PO SCH ×2 (15:51→21:00)
[2016-10-26] MEDS: ACETAMINOPHEN/HYDROcodone 325 MG/5 MG TAB PO PRN ×2 (18:24→23:08)
[2016-10-27] VITALS: BP 110/68; PULSE 65; RESP 18; TEMP 98; O2SAT 98
[2016-10-27] MEDS: cefTRIAXone INJ 1,000 MG in SODIUM CHLORIDE 0.9% INJ 100 ML IV SCH (03:00)
[2016-10-27] MEDS: CHLORHEXIDINE GLUCONATE 2 % 1 PACK (2 CLOTHS) TOP SCH (03:29)
[2016-10-27 04:00] VITALS: BP 91/58; PULSE 61; RESP 17; TEMP 98.6; O2SAT 97
[2016-10-27] MEDS: MORPHINE SULFATE 4 MG/ML INJ IV PRN ×2 (06:24→11:21)
[2016-10-27 07:53] VITALS: BP 130/60; PULSE 64; RESP 20; TEMP 99.2; O2SAT 98
--- NOTE | 2016-10-27 08:57 | HHI.PR ---
Subjective Remarks resting comfortably with no distress. no new complaints. denies pain. Objective Vitals Vital Signs Date Time Temp Pulse Resp B/P Pulse Ox O2 Delivery O2 Flow Rate FiO2 10/27/16 07:21 16 10/27/16 04:00 98.6 61 17 91/58 97 10/27/16 01:08 16 10/27/16 00:00 98.0 65 18 110/68 98 10/26/16 23:00 58 10/26/16 20:00 98.4 60 18 104/58 97 10/26/16 16:00 99.4 66 20 142/69 99 10/26/16 13:10 97.4 88 18 134/92 99 I/O 10/26/16 10/26/16 10/26/16 10/27/16 10/27/16 10/27/16 07:00 15:00 23:00 07:00 15:00 23:00 Intake Total 480 ml 1920 ml 1440 ml Output Total 400 ml 700 ml 600 ml Balance 80 ml 1220 ml 840 ml Intake Oral 480 ml 1920 ml 1440 ml Output Urine Total 400 ml 700 ml 600 ml # Voids 1 4 Result Diagram: 10/27/16 0618 10/26/16 0650 Imaging Last Impressions Liver Ultrasound 10/24/16 0000 Signed Impressions: Service Date/Time: Monday, October 24, 2016 21:00 - CONCLUSION: 1. Splenomegaly, cirrhosis and portal hypertension with ascites. 2. Patent hepatic and portal veins. 3. Gallbladder wall thickening, pericholecystic fluid and gallbladder sludge. Jorge Bolanos MD Objective Remarks GENERAL: This is a well-nourished, well-developed patient, in no apparent distress. CARDIOVASCULAR: Regular rate and regular rhythm without murmurs, gallops, or rubs. RESPIRATORY: Clear to auscultation. Breath sounds equal bilaterally. No wheezes , rales, or rhonchi. GASTROINTESTINAL: Abdomen soft, non-tender, nondistended. Normal, active bowel sounds MUSCULOSKELETAL: Extremities without clubbing, cyanosis, or edema. NEURO: Alert & Oriented x4 to person, place, time, situation. Moves all ext x4 Procedures EGD Medications and IVs Current Medications Pantoprazole Sodium (Protonix Inj) 40 mg ONCE ONCE IVP Last administered on t 02:15; Start 10/23/16 at 02:00; Stop 10/23/16 at 02:01; Status DC IV Flush 2 ml 2 ml UNSCH PRN IVF FLUSH AFTER USING IV ACCESS; Start 10/23/16 at 02:00; Stop 10/23/16 at 04:54; Status DC Sodium Chloride 250 ml @ 15 mls/hr ONCE ONCE IV Last administered on 04:34; Start 10/23/16 at 02:45; Stop 10/23/16 at 19:24; Status DC Sodium Chloride 1,000 ml @ 999 mls/hr BOLUS ONCE IV Last administered on 10/23 02:38; Start 10/23/16 at 02:45; Stop 10/23/16 at 03:45; Status DC Pantoprazole Sodium 80 mg/ Sodium Chloride 100 ml @ 10 mls/hr Q10H IV Last administered on 10/25/16 14:45; Start 10/23/16 at 02:45; Stop 10/25/16 at 15:01 ; Status DC Ceftriaxone Sodium 1000 mg/ Sodium Chloride 100 ml @ 200 mls/hr ONCE ONCE IV Last administered on 10/23/16 03:10; Start 10/23/16 at 02:45; Stop 10/23/16 at 03:14; Status DC Octreotide Acetate/Sodium Chloride (SandoSTATIN INJ/ NS 500 ml Inj) 500.5 ml @ 50 mls/hr Q10H IV Last administered on 10/25/16 14:45; Start 10/23/16 at 02:45 ; Stop 10/25/16 at 15:01; Status DC Lactulose (Lactulose Liq) 30 ml ONCE ONCE PO Last administered on 10/23/16 03 :10; Start 10/23/16 at 03:00; Stop 10/23/16 at 03:01; Status DC Hydromorphone HCl (Dilaudid Pf Inj) 0.5 mg ONCE ONCE IV PUSH Last administered on 10/23/16 04:35; Start 10/23/16 at 04:30; Stop 10/23/16 at 04:31 ; Status DC Promethazine HCl 25 mg 25 mg ONCE ONCE IM Last administered on 10/23/16 04:35 ; Start 10/23/16 at 04:30; Stop 10/23/16 at 04:31; Status DC Sodium Chloride (NS 1000 ml Inj) 1,000 ml @ 175 mls/hr Q5H43M IV ; Start at 04:42; Stop 10/24/16 at 10:06; Status DC IV Flush (NS Flush) 2 ml UNSCH PRN IV FLUSH FLUSH AFTER USING IV ACCESS; Start 10/23/16 at 04:45 IV Flush (NS Flush) 2 ml BID IV FLUSH Last administered on 10/26/16 21:00; Start 10/23/16 at 09:00 Acetaminophen (Tylenol) 650 mg Q6H PRN PO PAIN 1-5 AND/OR FEVER >101F; Start at 04:45; Stop 10/24/16 at 10:08; Status DC Morphine Sulfate (Morphine Inj) 2 mg Q2H PRN IV PAIN SCALE 6 TO 10 Last administered on 10/27/16 06:24; Start 10/23/16 at 04:45 Pantoprazole Sodium (Protonix Inj) 40 mg Q12H IV Last administered on 06:08; Start 10/23/16 at 06:00; Stop 10/24/16 at 10:06; Status DC Lorazepam (Ativan Inj) 2 mg Q4H PRN IV Agitation/Sedation Last administered on 10/23/16 18:03; Start 10/23/16 at 04:45 Ondansetron HCl (Zofran Inj) 4 mg Q6H PRN IV NAUSEA OR VOMITING; Start at 04:45 Metoclopramide HCl (Reglan Inj) 10 mg Q6H PRN IV NAUSEA OR VOMITING; Start at 04:45 Docusate Sodium (Colace) 100 mg BID PO Last administered on 10/26/16 08:42; Start 10/23/16 at 09:00 Albuterol/ Ipratropium (Duoneb Neb) 1 ampule Q2HR NEB PRN INH WHEEZING; Start 10/23/16 at 04:45 Miscellaneous Information 1 [id number] XX ; Start 10/23/16 at 04:45 Chlorhexidine Gluconate (Chlorhexidine 2% Cloth) 3 pack Taper DAILY@04 TOP Last administered on 10/26/16 03:41; Start 10/24/16 at 04:00; Stop 10/20/17 at 03:59 Chlorhexidine Gluconate (Chlorhexidine 2% Cloth) 3 pack UNSCH PRN TOP HYGIENIC CARE; Start 10/23/16 at 04:45 Sodium Polystyrene Sulfonate 15 gm 15 gm ONCE ONCE PO Last administered on 15:54; Start 10/23/16 at 05:00; Stop 10/23/16 at 05:01; Status DC Sodium Chloride (NS 1000 ml Inj) 1,000 ml @ 999 mls/hr BOLUS ONCE IV ; Start 10/23/16 at 05:00; Stop 10/23/16 at 06:00; Status DC Buspirone HCl (Buspar) 10 mg TID PO Last administered on 10/26/16 18:23; Start 10/23/16 at 09:00 Acetaminophen/ Hydrocodone Bitart (Hawley 10-325 Mg) 1 tab 5 TIMES A DAY PRN PO PAIN SCALE 1 TO 5 Last administered on 10/24/16 08:03; Start 10/23/16 at 05:15 ; Stop 10/24/16 at 10:08; Status DC Lactobacillus Acidophilus (Lactinex) 1 tab DAILY PO Last administered on 08:41; Start 10/23/16 at 05:15 Cyanocobalamin (Vitamin B12) 1,000 mcg DAILY PO Last administered on 10/26/16 08:42; Start 10/23/16 at 05:15 Pregabalin (Lyrica) 200 mg TID PO Last administered on 10/26/16 18:22; Start 10/23/16 at 09:00 Rifaximin (Xifaxan) 550 mg BID PO Last administered on 10/26/16 21:00; Start 10/23/16 at 21:00 Lactulose 30 ml 30 ml QID PO Last administered on 10/26/16 21:00; Start at 13:00 Ceftriaxone Sodium/Sodium Chloride (Rocephin Inj/NS Inj) 100 ml @ 200 mls/hr Q24H IV Last administered on 10/27/16 03:00; Start 10/24/16 at 03:00 Ketamine HCl (Ketalar Inj) 500 mg STK-MED ONCE .ROUTE ; Start 10/23/16 at 12:33 ; Stop 10/23/16 at 12:34; Status DC Miscellaneous Information ALL NURSING DEPARTME... UNSCH PRN XX SEE LABEL COMMENTS; Start 10/23/16 at 13:30; Stop 10/24/16 at 13:29; Status DC Propranolol HCl (Inderal) 20 mg DAILY PO Last administered on 10/26/16 08:42; Start 10/24/16 at 09:00 Propofol (Diprivan 200 Mg/20 ml Inj) 200 mg STK-MED ONCE IV ; Start 10/23/16 at 13:03; Stop 10/23/16 at 14:36; Status DC Calcium Gluconate (Calcium Gluconate Inj) 1 gm ONCE ONCE SLOW IVP Last administered on 10/23/16 16:00; Start 10/23/16 at 15:00; Stop 10/23/16 at 15:01 ; Status DC Insulin Human Regular (NovoLIN R INJ) 10 units ONCE ONCE IV PUSH Last administered on 10/23/16 16:13; Start 10/23/16 at 15:00; Stop 10/23/16 at 15:07 ; Status DC Dextrose (D50w (Vial) Inj) 50 ml ONCE ONCE IV PUSH Last administered on 16:13; Start 10/23/16 at 15:00; Stop 10/23/16 at 15:07; Status DC Sodium Bicarbonate (Sodium Bicarbonate 8.4% Inj) 50 meq ONCE ONCE SLOW IVP Last administered on 10/23/16 16:13; Start 10/23/16 at 15:00; Stop 10/23/16 at 15:08; Status DC Oxycodone HCl (Roxicodone) 5 mg Q4H PRN PO PAIN 1 TO 10 AND/OR AGITATION Last administered on 10/26/16 13:17; Start 10/24/16 at 11:00; Status Hold Ondansetron HCl (Zofran Inj) 4 mg Q6H PRN IV NAUSEA OR VOMITING; Start at 10:15; Status UNV Albuterol/ Ipratropium (Duoneb Neb) 1 ampule Q2HR NEB PRN INH WHEEZING; Start 10/24/16 at 10:15; Status UNV Pantoprazole Sodium (Protonix Inj) 40 mg Q12H IV PUSH Last administered on 10/26 03:41; Start 10/25/16 at 15:00; Stop 10/26/16 at 14:20; Status DC Furosemide (Lasix) 40 mg DAILY PO ; Start 10/26/16 at 09:00; Stop 10/26/16 at 09 :00; Status DC Spironolactone (Aldactone) 100 mg DAILY PO ; Start 10/26/16 at 09:00; Stop 10/26 at 09:00; Status DC Furosemide (Lasix) 20 mg DAILY PO Last administered on 10/26/16 08:41; Start 10/26/16 at 09:00 Spironolactone (Aldactone) 25 mg DAILY PO Last administered on 10/26/16 08:42 ; Start 10/26/16 at 09:00 Isosorbide Dinitrate (Isordil) 5 mg TIDAC PO Last administered on 10/26/16 15: 51; Start 10/25/16 at 17:00 Pantoprazole Sodium (Protonix) 40 mg Q12HR PO Last administered on 10/26/16 21 :00; Start 10/26/16 at 15:00 Acetaminophen/ Hydrocodone Bitart (Hawley 5-325 Mg) 1 tab Q6H PRN PO PAIN Last administered on 10/26/16 23:08; Start 10/26/16 at 18:00; Stop 10/27/16 at 06:02 ; Status DC A/P Assessment and Plan A/P Diabetic neuropathy Depression History of hepatic encephalopathy Continue BuSpar 10 mg 3 times a day for depression and Lyrica 200 mg 3 times a day for neuropathy oxycodone 5 milligrams every 4 hours when necessary for pain. Baclofen 20 mg 3 times a day held See GI for management of hepatic encephalopathy Hypertension History of PFO right- left shunting. Dyslipidemia Holding Norvasc 5 mg by mouth daily/home medication Holding aspirin 325 mg by mouth daily light of GI bleed Echocardiogram 09/15 revealed PFO right left shunting EF 50%. Possible basilar inferior akinesis. Medical management recommended by Dr. Hernandez for PFO. History of COPD Nasal cannula to maintain saturations greater than equal to 92% Incentive spirometry while awake Esophageal varices Gastritis Abdominal ascites Liver cirrhosis History of hepatitis C Continue Protonix continue Lasix , spironolactone Resumed propranolol 20 milligrams by mouth daily and add Isordil 5 mg 3 times a day for portal gastropathy S/P EGD (10/23/16)----> gastropathy, grade I esophageal varices. 10/24 liver ultrasound ruled out portal vein thrombosis. Positive gallbladder wall thickness likely secondary to ascites. cleared for discharge per GI. Diabetes mellitus Sliding-scale insulin with Accu-Cheks to maintain euglycemia/low regimen Iron deficiency anemia/acute blood loss History of portal vein thrombosis Status post 4 units PRBC. H/H stable. DVT GI prophylaxis - Protonix - Teds SCDs, no chemical DVT prophylaxis due to GI bleed Discharge Planning possible dc home later today- pending repeated H/H. f/u; pcp and GI. see med list. d/w the patient. time spent 32 min. Storm Valles MD Oct 27, 2016 08:57
[2016-10-27] MEDS: SODIUM CHLORIDE 0.9% FLUSH 5 ML FLUSH IV FLUSH SCH (09:00)
[2016-10-27] MEDS: LACTOBACILLUS ACIDOPHILUS TAB PO SCH (09:00)
[2016-10-27] MEDS ORDERED: FURO20TA PO (09:01)
[2016-10-27] MEDS ORDERED: ISOS1TAB PO (09:01)
[2016-10-27] MEDS ORDERED: PROP20TA3 PO (09:01)
[2016-10-27] MEDS ORDERED: Spironolactone PO (09:01)
[2016-10-27] MEDS ORDERED: XIFA550T4 PO (09:01)
--- NOTE | 2016-10-27 09:02 | HHI.DCPOC ---
Discharge Care Plan Diagnosis: (1) Anemia (2) Esophageal varices Your Health Problems Are: Bleeding Tendency Goals to Promote Your Health * To prevent worsening of your condition and complications * To maintain your health at the optimal level Directions to Meet Your Goals Take your medications as prescribed Follow your dietary instruction Follow activity as directed Keep your appointments as scheduled Take your immunizations and boosters as scheduled If your symptoms worsen call your PCP, if no PCP go to Urgent Care Center or Emergency Room Smoking is Dangerous to Your Health. Avoid second hand smoke Call the 24-hour hour crisis hotline for domestic abuse at Storm Valles MD Oct 27, 2016 09:02
--- NOTE | 2016-10-27 09:03 | HHI.DS ---
Discharge Summary Admission Date Oct 23, 2016 at 03:50 Discharge Date: Oct 27, 2016 Admitting Diagnosis Hematemasis, Melena, Anemia, Hyperammonemia (1) Esophageal varices ICD Code: I85.00 Diagnosis: Principal (2) Anemia ICD Code: D64.9 Diagnosis: Principal Procedures EGD Brief History - From Admission 56-year-old male with a history of cirrhosis, followed by Dr. Huerta who has been recently discharged after evaluation of chronic abdominal pain and portal vein thrombosis, reports feeling lightheaded upon standing up for the past 8 hours. He's had dark red stool, numerous episodes. Critical-care medicine was consulted to evaluate and manage his anemia and possible GI bleed. CBC/BMP: 10/27/16 0618 10/26/16 0650 Significant Findings Laboratory Tests Test 10/24/16 10/25/16 10/26/16 10/27/16 10:54 14:40 06:50 06:18 Direct Bilirubin 0.5 MG/DL (0.0-0.2) White Blood Count 3.2 TH/MM3 (4.0-11.0) Red Blood Count 2.81 MIL/MM3 3.22 MIL/MM3 (4.50-5.90) (4.50-5.90) Hemoglobin 8.4 GM/DL 9.5 GM/DL 7.8 GM/DL (13.0-17.0) (13.0-17.0) (13.0-17.0) Hematocrit 25.2 % 28.9 % 23.0 % (39.0-51.0) (39.0-51.0) (39.0-51.0) Red Cell Distribution Width 18.5 % 18.4 % (11.6-17.2) (11.6-17.2) Platelet Count 54 TH/MM3 76 TH/MM3 (150-450) (150-450) Mean Platelet Volume 11.4 FL (7.0-11.0) Monocytes (%) (Auto) 10.9 % (0.0-8.0) Lymphocytes # (Auto) 0.7 TH/MM3 (1.0-4.8) Platelet Estimate LOW (NORMAL) Prothrombin Time 12.3 SEC (9.8-11.6) Chloride Level 108 MEQ/L (98-107) Blood Urea Nitrogen 20 MG/DL (7-18) Random Glucose 212 MG/DL 117 MG/DL (74-106) (74-106) Calcium Level 7.4 MG/DL 8.0 MG/DL (8.5-10.1) (8.5-10.1) Total Bilirubin 1.6 MG/DL 3.1 MG/DL (0.2-1.0) (0.2-1.0) Aspartate Amino Transf 114 U/L (15-37) 103 U/L (15-37) (AST/SGOT) Alanine Aminotransferase 107 U/L (12-78) 107 U/L (12-78) (ALT/SGPT) Total Protein 5.1 GM/DL (6.4-8.2) Albumin 2.0 GM/DL 2.7 GM/DL (3.4-5.0) (3.4-5.0) Ammonia 60 MCMOL/L (11-32) Imaging Last Impressions Liver Ultrasound 10/24/16 0000 Signed Impressions: Service Date/Time: Monday, October 24, 2016 21:00 - CONCLUSION: 1. Splenomegaly, cirrhosis and portal hypertension with ascites. 2. Patent hepatic and portal veins. 3. Gallbladder wall thickening, pericholecystic fluid and gallbladder sludge. Jorge Bolanos MD PE at Discharge GENERAL: This is a well-nourished, well-developed patient, in no apparent distress. CARDIOVASCULAR: Regular rate and regular rhythm without murmurs, gallops, or rubs. RESPIRATORY: Clear to auscultation. Breath sounds equal bilaterally. No wheezes , rales, or rhonchi. GASTROINTESTINAL: Abdomen soft, non-tender, nondistended. Normal, active bowel sounds MUSCULOSKELETAL: Extremities without clubbing, cyanosis, or edema. NEURO: Alert & Oriented x4 to person, place, time, situation. Moves all ext x4 Hospital Course Diabetic neuropathy Depression History of hepatic encephalopathy Continue BuSpar 10 mg 3 times a day for depression and Lyrica 200 mg 3 times a day for neuropathy oxycodone 5 milligrams every 4 hours when necessary for pain. Baclofen 20 mg 3 times a day held See GI for management of hepatic encephalopathy Hypertension History of PFO right- left shunting. Dyslipidemia Holding Norvasc 5 mg by mouth daily/home medication Holding aspirin 325 mg by mouth daily light of GI bleed Echocardiogram 09/15 revealed PFO right left shunting EF 50%. Possible basilar inferior akinesis. Medical management recommended by Dr. Hernandez for PFO. History of COPD Nasal cannula to maintain saturations greater than equal to 92% Incentive spirometry while awake Esophageal varices Gastritis Abdominal ascites Liver cirrhosis History of hepatitis C Continue Protonix continue Lasix , spironolactone Resumed propranolol 20 milligrams by mouth daily and add Isordil 5 mg 3 times a day for portal gastropathy S/P EGD (10/23/16)----> gastropathy, grade I esophageal varices. 10/24 liver ultrasound ruled out portal vein thrombosis. Positive gallbladder wall thickness likely secondary to ascites. cleared for discharge per GI. Diabetes mellitus Sliding-scale insulin with Accu-Cheks to maintain euglycemia/low regimen Iron deficiency anemia/acute blood loss History of portal vein thrombosis Status post 4 units PRBC. H/H stable. DVT GI prophylaxis - Protonix - Teds SCDs, no chemical DVT prophylaxis due to GI bleed Pt Condition on Discharge: Fair Discharge Disposition: Discharge Home Discharge Time: > 30 minutes Discharge Instructions DIET: Follow Instructions for: Heart Healthy Diet Activities you can perform: Regular-No Restrictions Follow up Referrals: Gastroenterology - 2 Weeks @ [facility] PCP Follow-up New Medications: Ferrous Sulfate (Ferrous Sulfate) 325 Mg Tab 325 MG PO BID Nutritional Supplement #30 Ref 0 TAB Furosemide (Furosemide) 20 Mg Tab 20 MG PO DAILY diuretic Days 30 Ref 0 TAB Isosorbide Dinitrate (Isordil Titradose) 5 Mg Tab 5 MG PO TIDAC hypertension Days 30 Ref 0 TAB Pantoprazole (Pantoprazole) 40 Mg Tab 40 MG PO Q12HR ppi Days 30 Ref 0 TAB Propranolol (Propranolol) 20 Mg Tab 20 MG PO DAILY cirrhosis Days 30 Ref 0 TAB Rifaximin (Xifaxan) 550 Mg Tab 550 MG PO BID cirrhosis Days 30 Ref 0 TAB ([Spironolactone]) 25 MG TAB 25 MG PO DAILY cirrhosis Days 30 Ref 0 TAB Continued Medications: Baclofen (Baclofen) 20 Mg Tab 20 MG PO TID Muscle Spasm Ref 0 TAB Buspirone (Buspirone) 10 Mg Tab 10 MG PO TID Anxiety Ref 0 TAB Hydrocodone-Acetaminophen (Hydrocodone-Acetaminophen) 10-325 mg Tab 1 TAB PO 5 TIMES A DAY PRN PAIN Ref 0 TAB Lactobacillus Acidophilus (Lactinex) 1 Chew 1 TAB CHEW DAILY Nutritional Supplement #30 Ref 0 TAB Methylcobalamin ([id number]) 1 Mg Chew 1 MG CHEW DAILY Nutritional Supplement #30 Ref 0 TAB Pregabalin (Lyrica) 300 Mg Cap 300 MG PO TID #90 Ref 0 CAP Discontinued Medications: Amlodipine (Amlodipine) 5 Mg Tab 5 MG PO DAILY Blood Pressure Management #30 Ref 0 TAB Aspirin (Aspirin) 325 Mg Tab 325 MG PO DAILY #30 Ref 0 TAB Cefuroxime (Ceftin) 500 Mg Tab 500 MG PO BID Infection #12 Ref 0 TAB Furosemide (Furosemide) 40 Mg Tab 40 MG PO DAILY ascites #30 Ref 0 TAB Pantoprazole (Pantoprazole) 40 Mg Tab 40 MG PO DAILY Reflux #30 Ref 0 TAB Penicillin V Potassium (Penicillin V Potassium) 500 Mg Tab 500 MG PO Q6H Infection Ref 0 TAB Spironolactone (Spironolactone) 100 Mg Tab 100 MG PO DAILY ascites #30 TAB Storm Valles MD Oct 27, 2016 09:03
[2016-10-27] MEDS ORDERED: PANT40TA3 PO (09:04)
[2016-10-27] MEDS ORDERED: FERR325T PO (09:10)
[2016-10-27] MEDS: LACTULOSE SYRUP 20 GM/30 ML CUP PO SCH ×2 (11:00→12:13)
[2016-10-27] MEDS: ISOSORBIDE DINITRATE 5 MG TAB PO SCH ×2 (11:04→12:00)
[2016-10-27] MEDS: busPIRone HCL 10 MG TAB PO SCH ×2 (11:04→12:13)
[2016-10-27] MEDS: PANTOPRAZOLE SOD 40 MG DELAYED RELEASE TAB PO SCH (11:04)
[2016-10-27] MEDS: CYANOCOBALAMIN 1,000 MCG TAB PO SCH (11:04)
[2016-10-27] MEDS: FUROSEMIDE 20 MG TAB PO SCH (11:04)
[2016-10-27] MEDS: PROPRANOLOL HCL 20 MG TAB PO SCH (11:04)
[2016-10-27] MEDS: SPIRONOLACTONE 25 MG TAB PO SCH (11:04)
[2016-10-27] MEDS: PREGABALIN 100 MG CAP PO SCH ×2 (11:04→12:12)
[2016-10-27] MEDS: RIFAXIMIN 550 MG TAB PO SCH (11:04)
[2016-10-27] MEDS: DOCUSATE SODIUM 100 MG CAP PO SCH (11:05)
[2016-10-27 12:00] VITALS: BP 152/74; PULSE 64; RESP 18; TEMP 100; O2SAT 97
[2016-10-27 12:26] LABS: HEMATOCRIT 24.7 % (39.0-51.0)
== END 2016-10-27 14:02 | disposition home or self-care (01) | DRG 377 ==
LOC: NEPE 01:07 → NEDA 03:50 → HIMN 06:20 → HOCA 10-25 23:30
PROVIDERS: ADMIT Internal Medicine; ATTEND Internal Medicine
PROC: 0DB68ZX Excision of Stomach, Via Natural or Artificial Opening Endoscopic, Diagnostic (ICD-10-PCS; principal; 2016-10-23 12:00)
DX: K29.51 Unspecified chronic gastritis with bleeding (principal); I81 Portal vein thrombosis; I85.11 Secondary esophageal varices with bleeding; R18.8 Other ascites; K76.6 Portal hypertension; D62 Acute posthemorrhagic anemia; E11.40 Type 2 diabetes mellitus with diabetic neuropathy, unspecified; K72.90 Hepatic failure, unspecified without coma; I10 Essential (primary) hypertension; F17.210 Nicotine dependence, cigarettes, uncomplicated; E78.5 Hyperlipidemia, unspecified; J44.9 Chronic obstructive pulmonary disease, unspecified; K74.60 Unspecified cirrhosis of liver; B19.20 Unspecified viral hepatitis C without hepatic coma; K21.9 Gastro-esophageal reflux disease without esophagitis
CPT/HCPCS: 36430; 80048; 80053; 80320; 82140; 82247; 82248; 82948; 83690; 83735; 84100; 84132; 84155; 85014; 85018; 85025; 85027; 85610; 85730; 86850; 86900; 86901; 86920; 87641; 88305; 88312; 93005; 93975; 94150; 96361; 96365; 96368; 96376; C9113; J0610; J0696; J1170; J1815; J2060; J2270; J2354; J2550; J7030; J7040; J7050; P9016

== ENCOUNTER 2016-12-01 22:28 | Inpatient (IN) | payer MEDICARE, MEDICAID ==
[~2016-12-01] VITALS: Ht 182.9 cm; Wt 75.0 kg
[~2016-12-01 22:28] MED LIST changes: -AMLO5TAB2 PO; -ASPI325T PO; -CEFT500T3 PO; +FERR325T PO; +FURO20TA PO; -FURO40TA PO; +ISOS1TAB PO; -PENI500T PO; +PROP20TA3 PO; -SPIR100T PO; +Spironolactone PO; +XIFA550T4 PO
[2016-12-01 22:34] VITALS: BP 136/62; PULSE 79; RESP 18; O2SAT 100
[2016-12-01] MEDS ORDERED: SODIUM CHLORIDE 0.9% FLUSH 10 ML FLUSH IVF PRN ×2 (22:45→23:15)
[2016-12-01] MEDS ORDERED: PANTOPRAZOLE INJ 80 MG in SODIUM CHLORIDE 0.9% INJ 100 ML IV SCH ×4 (22:45)
[2016-12-01] MEDS ORDERED: SODIUM CHLOR 0.9% 1000 ML INJ 1,000 ML IV SCH ×2 (22:45)
[2016-12-01] MEDS ORDERED: ONDANSETRON HCL 4 MG/2 ML VIAL IVP ONE (22:45)
[2016-12-01] MEDS ORDERED: PANTOPRAZOLE INJ 80 MG in SODIUM CHLORIDE 0.9% INJ 35 ML IV ONE ×4 (22:45)
[2016-12-01] MEDS ORDERED: OCTREOTIDE INJ 100 MCG/ML VIAL IV PUSH ONE (23:15)
[2016-12-01] MEDS ORDERED: SPIR25TA PO (23:15)
[2016-12-01] MEDS ORDERED: ISOS5TAB PO (23:15)
[2016-12-01 23:16] LABS: AUTOMATED NEUTROPHIL # 4.8 TH/MM3 (1.8-7.7); BASOPHIL # 0.1 TH/MM3 (0-0.2); BASOPHIL % 0.8 % (0.0-2.0); EOSINOPHIL % 0.3 % (0.0-4.0); LYMPH % 15.6 % (9.0-44.0); MEAN CELL VOLUME 92.2 FL (80.0-100.0); MEAN CORPUSCULAR HEMOGLOBIN 29.9 PG (27.0-34.0); MEAN CORPUSCULAR HGB CONC 32.5 % (32.0-36.0); MONO % 5.6 % (0.0-8.0); NEUT % 77.7 % (16.0-70.0); PLATELET COUNT 131 TH/MM3 (150-450); RED BLOOD COUNT 1.94 MIL/MM3 (4.50-5.90); RED CELL DISTRIBUTION WIDTH 18.2 % (11.6-17.2); WHITE BLOOD COUNT 6.1 TH/MM3 (4.0-11.0)
[2016-12-01] MEDS ORDERED: TUMS500C CHEW (23:16)
[2016-12-01] MEDS ORDERED: AMLO10TA2 PO (23:16)
[2016-12-01 23:19] LABS: HEMO FLAGS DIFF FINAL
[2016-12-01 23:21] LABS: HEMATOCRIT 17.9 % (39.0-51.0)
[2016-12-01 23:24] LABS: APTT (PATIENT) 27.9 SEC (24.3-30.1); INTERNATIONAL NORMALIZED RATIO 1.4 RATIO; PROTHROMBIN TIME - PATIENT 15.5 SEC (9.8-11.6)
[2016-12-01] MEDS: OCTREOTIDE INJ 500 MCG in SODIUM CHLORID 0.9% 500 ML INJ 500 ML IV SCH (23:31)
[2016-12-01 23:33] VITALS: BP 115/69; PULSE 96; RESP 18; O2SAT 100
--- NOTE | 2016-12-01 23:35 | RADRPT ---
EXAM DATE/TIME: 12/01/2016 23:04 [facility] COMPARISON: CHEST SINGLE AP, September 19, 2016, 5:25. INDICATIONS : Chest pain. Shortness of breath. MEDICAL HISTORY : Hypertension. Diabetes mellitus type II. Hepatitis C. SURGICAL HISTORY : Appendectomy. ENCOUNTER: Initial ACUITY: 1 day PAIN SCORE: 0/10 LOCATION: Bilateral chest FINDINGS: A single view of the chest demonstrates the lungs to be symmetrically aerated without evidence of mas s, infiltrate or effusion. The cardiomediastinal contours are unremarkable. Osseous structures are intact. An orthopedic plate is seen involving the right clavicle. CONCLUSION: No acute disease. Raad Finch Jr., MD on December 01, 2016 at 23:33 Board Certified Radiologist. This report was verified electronically.
[2016-12-01 23:44] LABS: ALT (GPT) 37 U/L (12-78); ANION GAP 12 MEQ/L (5-15); AST (GOT) 45 U/L (15-37); BICARBONATE 23.9 MEQ/L (21.0-32.0); BLOOD UREA NITROGEN 32 MG/DL (7-18); CHLORIDE 105 MEQ/L (98-107); GLOMERULAR FILTRATION RATE 64 ML/MIN (>89); MAGNESIUM 1.5 MG/DL (1.5-2.5); POTASSIUM 4.6 MEQ/L (3.5-5.1); SODIUM (NA) 141 MEQ/L (136-145)
[2016-12-01 23:47] LABS: ALKALINE PHOSPHATASE 68 U/L (45-117); CREATINE KINASE 128 U/L (39-308)
[2016-12-01 23:50] VITALS: BP 98/58; PULSE 89; RESP 20; O2SAT 97
[2016-12-01 23:59] LABS: CKMB 4.9 NG/ML (0.5-3.6)
[2016-12-02] VITALS (23 sets, daily range): BP systolic 87–132; BP diastolic 55–69; PULSE 69–81; RESP 11–20; TEMP 97.5–98.9; O2SAT 97–100
[2016-12-02] MEDS ORDERED: SODIUM CHLOR 0.9% 250 ML INJ 250 ML IV ONE
[2016-12-02] MEDS ORDERED: MIDAZOLAM HCL 2 MG/2 ML VIAL IV PRN (00:30)
[2016-12-02] MEDS: PANTOPRAZOLE SODIUM 40 MG VIAL IV SCH ×3 (00:30→23:54)
[2016-12-02] MEDS ORDERED: CHLORHEXIDINE GLUCONATE 2 % 1 PACK (2 CLOTHS) TOP PRN (00:30)
[2016-12-02] MEDS ORDERED: RESP: ALBUTEROL 2.5 MG/IPRATROPIUM 0.5 MG NEB (PRN) INH (00:30)
[2016-12-02] MEDS ORDERED: ONDANSETRON HCL 4 MG/2 ML VIAL IV PRN (00:30)
[2016-12-02] MEDS ORDERED: MISCELLANEOUS NURSING INFORMATION XX SCH (00:30)
[2016-12-02] MEDS ORDERED: ZOLPIDEM TARTRATE 5 MG TAB PO PRN (00:30)
[2016-12-02] MEDS ORDERED: METOCLOPRAMIDE HCL 10 MG/2 ML VIAL IV PRN (00:30)
[2016-12-02] MEDS: SODIUM CHLOR 0.9% 1000 ML INJ 1,000 ML IV SCH ×3 (00:51→14:45)
[2016-12-02 01:57] LABS: LACTIC ACID GHOST NOT REPORTABLE
--- NOTE | 2016-12-02 03:24 | PD ---
HPI Chief Complaint: Abdominal Pain Time Seen by Provider: 22:35 Travel History International Travel<30 days: No Contact w/Intl Traveler<30days: No Traveled to known affect area: No History of Present Illness HPI The patient is a 56 year old male who presents to the [facility] emergency department with a history of GI bleed that he reports began today. The patient reports that he's had vomiting of blood 5 times today, bloody stool 2 today. The patient reports that he has a history of GI bleeds previously related to cirrhosis and varices, last in September requiring a blood transfusion. He reports that he has a follow-up plan with his grocery clerk stocking for endoscopy this week. He cannot recall the name of his GI doctor. The patient reports that he became concerned when he began to feel lightheaded, dizzy, weak with standing. The patient reports that he has been in [place] for the last month camping. He reports that I'll in [place] he did have abdominal distention and 2 L of ascitic fluid was removed from his abdomen. The patient denies any recent fevers, cough, congestion, neck pain, chest pain, shortness of breath, abdominal pain, urinary symptoms, or other neurologic symptoms. [facility] Past Medical History Narrative Medical The patient's past medical history is significant for hypertension, cirrhosis, hepatitis C, hyperlipidemia, diabetes mellitus, diabetic neuropathy, portal vein thrombosis, prior history of alcohol abuse, chronic back pain related to degenerative disc disease. The patient has a history of ascites with paracentesis done previously. Hx Anticoagulant Therapy: Yes (ASA) Anxiety: No Depression: No Cancer: No Cardiovascular Problems: Yes High Cholesterol: Yes Diabetes: Yes Patient Takes Glucophage: No Diminished Hearing: No Endocrine: Yes Gastrointestinal Disorders: No Genitourinary: No Hepatitis: Yes (C) Hiatal Hernia: No Hypertension: Yes Immune Disorder: No Implanted Vascular Access Dvce: Yes Musculoskeletal: No Neurologic: Yes (DIABETIC NEUROPATHY) Psychiatric: No Respiratory: No Immunizations Current: Yes Thyroid Disease: No Influenza Vaccination: No Past Surgical History Narrative Surgical The patient's past surgical history is significant for an appendectomy, right shoulder surgery, tonsillectomy. Abdominal Surgery: Yes (APPENDECTOMY) Appendectomy: Yes Body Medical Devices: PLATE IN RIGHT SHOULDER Cardiac Surgery: No Ear Surgery: No Endocrine Surgery: No Eye Surgery: No Genitourinary Surgery: No Gynecologic Surgery: No Oral Surgery: No Pacemaker: No Thoracic Surgery: No Tonsillectomy: Yes Other Surgery: Yes (right clavical with metal, LIVER PARACENTESIS) Social History Alcohol Use: No Tobacco Use: No Substance Use: No Allergies-Medications (Allergen,Severity, Reaction): Coded Allergies: Neosporin (Verified Allergy, Mild, 12/01/16) Polysporin (Verified Allergy, Mild, RASH, 12/01/16) Reported Meds & Prescriptions Reported Meds & Active Scripts Active Ferrous Sulfate 325 Mg Tab 325 Mg PO BID Pantoprazole (Pantoprazole Sodium) 40 Mg Tab 40 Mg PO Q12HR 30 Days Propranolol (Propranolol HCl) 20 Mg Tab 20 Mg PO DAILY 30 Days Furosemide 20 Mg Tab 20 Mg PO DAILY 30 Days Lactinex (Lactobacillus Acidophilus) 1 Chew 1 Tab CHEW DAILY Reported Amlodipine (Amlodipine Besylate) 10 Mg Tab 10 Mg PO DAILY Tums (Calcium Carbonate (Antacid)) 500 Mg Chew 500 Mg CHEW DAILY PRN Isosorbide Dinitrate 5 Mg Tab 5 Mg PO DAILY Spironolactone 25 Mg Tab 25 Mg PO DAILY Lyrica (Pregabalin) 300 Mg Cap 300 Mg PO TID Buspirone (Buspirone HCl) 10 Mg Tab 10 Mg PO TID Baclofen 20 Mg Tab 20 Mg PO TID Hydrocodone-Acetaminophen 10-325 mg Tab 1 Tab PO 5 TIMES A DAY PRN Review of Systems Except as stated in HPI: all other systems reviewed are Neg General / Constitutional: No: Fever Eyes: No: Visual changes HENT: No: Headaches Cardiovascular: No: Chest Pain or Discomfort Respiratory: No: Shortness of Breath Gastrointestinal: Positive: Nausea, Vomiting, Diarrhea, Hematemesis, Hematochezia, No: Abdominal Pain, Changes in Bowel Habits, Indigestion, Loss of Appetite Genitourinary: No: Dysuria Musculoskeletal: No: Pain Skin: No Rash Neurologic: No: Weakness Psychiatric: No: Depression Endocrine: No: Polydipsia Hematologic/Lymphatic: No: Easy Bruising Physical Exam Narrative General: The patient is a well-developed well-nourished male, pale appearing on arrival, reporting continued nausea. While he was in the room the patient had a 1 L episode of hematemesis with blood clots. 4 units of emergency release blood was ordered to be obtained for emergent transfusion. Head and Neck exam: Head is normocephalic atraumatic. Eyes: EOMI, pupils are equal round and reactive to light. Nose: Midline septum with pink mucous membranes Mouth: Dentition unremarkable. Moist mucus membranes. Posterior oropharynx is not erythematous. No tonsillar hypertrophy. Uvula midline. Airway patent. Neck: No palpable lymphadenopathy. No nuchal rigidity. No thyromegaly. Cardiovascular: Sinus tachycardia in the low 100s without murmurs, gallops, or rubs. Lungs: Clear to auscultation bilaterally. No wheezes, rhonchi, or rales. Abdomen: Soft, without tenderness to palpation in all 4 quadrants of the abdomen. No guarding, rebound, or rigidity. Normal bowel sounds are audible. No tenderness on palpation of McBurney's point Negative [place] sign. Extremities: No clubbing, cyanosis, or edema. 2+ pulses in all 4 extremities. Back: No spinous process tenderness to palpation. No costovertebral angle tenderness to palpation. Neurologic Exam: Grossly nonfocal. Skin Exam: No rash noted. Intact skin that is warm and dry. Data Data Last Documented VS Vital Signs Date Time Temp Pulse Resp B/P Pulse Ox O2 Delivery O2 Flow Rate FiO2 12/02/16 00:05 97.9 81 18 100/62 100 Nasal Cannula 2 Orders Complete Blood Count With Diff (12/01/16 22:45) Comprehensive Metabolic Panel (12/01/16 22:45) Electrocardiogram (12/01/16 22:44) Prothrombin Time / Inr (Pt) (12/01/16 22:45) Act Partial Throm Time (Ptt) (12/01/16 22:45) Alcohol (Ethanol) (12/01/16 22:45) Type And Screen (12/01/16 22:45) Ecg Monitoring (12/01/16 22:45) Iv Access Insert/Monitor (12/01/16 22:45) B-Type Natriuretic Peptide (12/01/16 22:44) Oximetry (12/01/16 22:45) Ondansetron Inj (Zofran Inj) (12/01/16 22:45) Sodium Chlor 0.9% 1000 Ml Inj (Ns 1000 M (12/01/16 22:45) Urinalysis - C+S If Indicated (12/01/16 22:44) Sodium Chloride 0.9% Flush (Ns Flush) (12/01/16 22:45) Pantoprazole Inj (Protonix Inj) (12/01/16 22:45) Chest, Single Ap (12/01/16 22:44) Pantoprazole Inj (Protonix Inj) (12/01/16 22:45) Drug Screen, Random Urine (12/01/16 22:44) Lactic Acid Sepsis Protocol (12/01/16 22:44) Pantoprazole Inj (Protonix Inj) (12/01/16 22:45) Pantoprazole Inj (Protonix Inj) (12/01/16 22:45) Sodium Chlor 0.9% 1000 Ml Inj (Ns 1000 M (12/01/16 22:45) Sodium Chloride 0.9% Flush (Ns Flush) (12/01/16 23:15) Octreotide Inj (Sandostatin Inj) (12/01/16 23:15) Octreotide Inj (Sandostatin Inj) (12/01/16 23:15) Ckmb (Isoenzyme) Profile (12/01/16 23:00) Lipase (12/01/16 23:00) Magnesium (Mg) (12/01/16 23:00) Troponin I (12/01/16 23:00) CKMB (12/01/16 23:00) CKMB% (12/01/16 23:00) Blood Product Administration .UPON TRANSFUSION (12/01/16 23:51) Sodium Chlor 0.9% 250 Ml Inj (Ns 250 Ml (12/02/16 00:00) Admit Order (Ed Use Only) (12/02/16 00:09) Labs Laboratory Tests Test 12/01/16 12/01/16 23:00 23:51 White Blood Count 6.1 TH/MM3 Red Blood Count 1.94 MIL/MM3 Hemoglobin 5.8 GM/DL Hematocrit 17.9 % Mean Corpuscular Volume 92.2 FL Mean Corpuscular Hemoglobin 29.9 PG Mean Corpuscular Hemoglobin 32.5 % Concent Red Cell Distribution Width 18.2 % Platelet Count 131 TH/MM3 Mean Platelet Volume 10.3 FL Neutrophils (%) (Auto) 77.7 % Lymphocytes (%) (Auto) 15.6 % Monocytes (%) (Auto) 5.6 % Eosinophils (%) (Auto) 0.3 % Basophils (%) (Auto) 0.8 % Neutrophils # (Auto) 4.8 TH/MM3 Lymphocytes # (Auto) 1.0 TH/MM3 Monocytes # (Auto) 0.3 TH/MM3 Eosinophils # (Auto) 0.0 TH/MM3 Basophils # (Auto) 0.1 TH/MM3 CBC Comment DIFF FINAL Differential Comment Prothrombin Time 15.5 SEC Prothromb Time International 1.4 RATIO Ratio Activated Partial 27.9 SEC Thromboplast Time Sodium Level 141 MEQ/L Potassium Level 4.6 MEQ/L Chloride Level 105 MEQ/L Carbon Dioxide Level 23.9 MEQ/L Anion Gap 12 MEQ/L Blood Urea Nitrogen 32 MG/DL Creatinine 1.18 MG/DL Estimat Glomerular Filtration 64 ML/MIN Rate Random Glucose 187 MG/DL Calcium Level 7.8 MG/DL Magnesium Level 1.5 MG/DL Total Bilirubin 1.0 MG/DL Aspartate Amino Transf 45 U/L (AST/SGOT) Alanine Aminotransferase 37 U/L (ALT/SGPT) Alkaline Phosphatase 68 U/L Total Creatine Kinase 128 U/L Creatine Kinase MB 4.9 NG/ML Troponin I 0.03 NG/ML Total Protein 5.4 GM/DL Albumin 2.1 GM/DL Lipase 120 U/L Ethyl Alcohol Level LESS THAN 3 MG/DL B-Type Natriuretic Peptide 113 PG/ML Blood Type A POSITIVE Antibody Screen NEGATIVE Crossmatch Leukocyte-Reduced Red Blood Cells Blood Bank Comment Lactic Acid Level 6.9 mmol/L [facility] Medical Decision Making Medical Screen Exam Complete: Yes Emergency Medical Condition: Yes Medical Record Reviewed: Yes Interpretation(s) Last Impressions Chest X-Ray 12/01/16 2244 Signed Impressions: Service Date/Time: Thursday, December 01, 2016 23:04 - CONCLUSION: No acute disease. Raad Finch Jr., MD Differential Diagnosis Variceal bleed, versus hemorrhagic esophagitis, versus peptic ulcer bleed, versus AVM, versus diverticular bleed Narrative Course During the course of the patients emergency department visit, the patients history, examination, and differential diagnosis were reviewed with the patient. The patient had IV access obtained and blood work sent for analysis. The patient's pain is on a cardiac rehabilitation specialist with oximetry and blood pressure monitoring. An EKG was done on arrival. The patient's EKG showed a sinus rhythm with occasional supraventricular premature complexes, no acute ST segment elevation or depression. The patient had a large episode of hematemesis while he was initially examining him. Emergency release blood was started at 4 units as his hemoglobin was coming back initially at 5.8. The patient was provided normal saline 1 L IV fluid bolus initially, Zofran 4 mg IV, Protonix 80 mg IV followed by a Protonix drip, octreotide 50 g IV times one, followed by an octreotide drip. The patients laboratory studies were reviewed and remarkable for white count of 6.1, hemoglobin 5.8, platelets 131 with 77.7 neutrophils. CMP is remarkable for a BUN of 32, GFR 64, glucose 187, calcium 7.8, AST 45, initial set of cardiac enzymes are negative, BNP is 113, lipase 120, PT 15.5, INR 1.4 on the PTT 27.9. Alcohol level less than 3. Radiology studies were reviewed and remarkable for a chest x-ray that shows no acute cardiopulmonary disease. After the patient's initial witnessed episode of 1 L of hematemesis with blood clots, the patient had no further episodes of vomiting. The patient's case was discussed with the customer field representative who did agree to admit the patient for further evaluation and treatment at this time. The patients results were discussed with the patient, including the plan of care. I explained that further testing and/ or monitoring is indicated based on the patients history, examination, and/ or laboratory findings. Therefore, I recommended admission for additional evaluation. The patient expressed understanding and was agreeable with this plan. The patient was admitted to the hospital in critical condition and sent to a bed under the care of the intensive care service. Critical Care Narrative Aggregate critical care time was 32 minutes. Time to perform other separately billable procedures was not included in the critical care time. My time did not include minutes spent treating any other patients simultaneously or on activities that did not directly contribute to the patient's treatment. The services I provided to this patient were to treat and/or prevent clinically significant deterioration that could result in: Cardiovascular collapse, hemorrhagic shock, respiratory failure I provided critical care services requiring my management, as noted below: Chart data review, documentation time, medication orders and management, vital sign assessments/reviewing monitor data, ordering and reviewing lab tests, ordering and interpreting/reviewing x-rays and diagnostic studies, care of the patient and discussion of the patient with the admitting physicians. Physician Communication Physician Communication The patient's case was discussed with Dr. Landrum, the customer field representative, who did agree to admit the patient for further evaluation and treatment at this time. Diagnosis Primary Impression: GI bleed Qualified Code: K92.2 - Gastrointestinal hemorrhage, unspecified gastrointestinal hemorrhage type Additional Impression: Anemia Qualified Code: D62 - Acute posthemorrhagic anemia Admitting Information Admitting Physician Requests: it Desiree Desouza MD Dec 02, 2016 03:24
[2016-12-02] MEDS: CHLORHEXIDINE GLUCONATE 2 % 1 PACK (2 CLOTHS) TOP SCH (03:59)
--- NOTE | 2016-12-02 04:43 | HHI.HP ---
[facility] Service Critical Care Medicine Primary Care Physician Logn Huerta, DO Admission Diagnosis Upper GI bleed Diagnosis: Travel History International Travel<30 Days: No Contact w/Intl Traveler <30 Da: No Traveled to Known Affected Are: No History of Present Illness 56 year old male presents with a history of GI bleed that he reports began the day prior to admission. The patient reports that he's had been vomiting of blood 5 times today, has some bloody and melanotic stool 2 today. The patient has a history of GI bleeds previously related to cirrhosis and varices, last in September requiring a blood transfusion. 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 The patient became concerned when he began to feel lightheaded, dizzy, weak with standing. He was visiting and camping in [place] last months and he reports that while in [place] he did have abdominal distention and 2 L of ascitic fluid was removed from his abdomen. The patient denies any recent fevers, cough, congestion, neck pain, chest pain, shortness of breath, abdominal pain, urinary symptoms, or other neurologic symptoms. Review of Systems Constitutional: COMPLAINS OF: Fatigue, Dizziness, DENIES: Diaphoretic episodes , Fever, Weight gain, Weight loss, Chills, Change in appetite, Night Sweats Endocrine: DENIES: Heat/cold intolerance, Polydipsia, Polyuria, Polyphagia Eyes: DENIES: Blurred vision, Diplopia, Eye inflammation, Eye pain, Vision loss , Photosensitivity, Double Vision Ears, nose, mouth, throat: DENIES: Tinnitus, Hearing loss, Vertigo, Nasal discharge, Oral lesions, Throat pain, Hoarseness, Ear Pain, Running Nose, Epistaxis, Sinus Pain, Toothache, Odynophagia Respiratory: DENIES: Apneas, Cough, Snoring, Wheezing, Hemoptysis, Sputum production, Shortness of breath Cardiovascular: DENIES: Chest pain, Palpitations, Syncope, Dyspnea on Exertion , PND, Lower Extremity Edema, Orthopnea, Claudication Gastrointestinal: COMPLAINS OF: Abdominal pain, Black stools, Bloody stools, Nausea, Vomiting, DENIES: Constipation, Diarrhea, Difficulty Swallowing, Anorexia Genitourinary: DENIES: Sexual dysfunction, Urinary frequency, Urinary incontinence, Urgency, Hematuria, Dysuria, Nocturia, Penile Discharge, Testicular Pain, Testicular Swelling Musculoskeletal: DENIES: Joint pain, Muscle aches, Stiffness, Joint Swelling, Back pain, Neck pain Integumentary: DENIES: Abnormal pigmentation, Nail changes, Pruritus, Rash Hematologic/lymphatic: DENIES: Bruising, Lymphadenopathy Immunologic/allergic: DENIES: Eczema, Urticaria Neurologic: DENIES: Abnormal gait, Headache, Localized weakness, Paresthesias, Seizures, Speech Problems, Tremor, Poor Balance Psychiatric: COMPLAINS OF: Anxiety, DENIES: Confusion, Mood changes, Depression, Hallucinations, Agitation, Suicidal Ideation, Homicidal Ideation, Delusions Past Family Social History Allergies: Coded Allergies: Neosporin (Verified Allergy, Mild, 12/01/16) Polysporin (Verified Allergy, Mild, RASH, 12/01/16) Past Medical History Hypertension Liver cirrhosis Hepatitis C Dyslipidemia Diabetes mellitus Diabetic neuropathy History of portal vein thrombosis Prior history of alcohol abuse Chronic back pain Degenerative disc disease History of ascites treated with paracentesis in the past Past Surgical History Paracentesis Reported Medications Reported Meds & Active Scripts Active Ferrous Sulfate 325 Mg Tab 325 Mg PO BID Pantoprazole (Pantoprazole Sodium) 40 Mg Tab 40 Mg PO Q12HR 30 Days Propranolol (Propranolol HCl) 20 Mg Tab 20 Mg PO DAILY 30 Days Furosemide 20 Mg Tab 20 Mg PO DAILY 30 Days Lactinex (Lactobacillus Acidophilus) 1 Chew 1 Tab CHEW DAILY Reported Amlodipine (Amlodipine Besylate) 10 Mg Tab 10 Mg PO DAILY Tums (Calcium Carbonate (Antacid)) 500 Mg Chew 500 Mg CHEW DAILY PRN Isosorbide Dinitrate 5 Mg Tab 5 Mg PO DAILY Spironolactone 25 Mg Tab 25 Mg PO DAILY Lyrica (Pregabalin) 300 Mg Cap 300 Mg PO TID Buspirone (Buspirone HCl) 10 Mg Tab 10 Mg PO TID Baclofen 20 Mg Tab 20 Mg PO TID Hydrocodone-Acetaminophen 10-325 mg Tab 1 Tab PO 5 TIMES A DAY PRN Active Ordered Medications Current Medications Medications (Trade) Dose Ordered Sig/Jez Route PRN Reason Start Time Stop Time Status Last Admin Dose Admin Octreotide Acetate 500 mcg/ Sodium Chloride 500.5 ml @ 50 mls/hr Q10H IV 12/01/16 23:15 12/01/16 23:31 Sodium Chloride 250 ml @ 15 mls/hr ONCE ONCE IV 12/02/16 00:00 12/02/16 16:39 12/02/16 00:02 Sodium Chloride (NS 1000 ml Inj) 1,000 ml @ 84 mls/hr [id number] IV 12/02/16 00:28 12/02/16 00:51 Sodium Chloride (NS Flush) 2 ml UNSCH PRN .XX FLUSH AFTER USING IV ACCESS 12/02/16 00:30 Sodium Chloride (NS Flush) 2 ml BID .XX 12/02/16 09:00 Acetaminophen (Tylenol) 650 mg Q6H PRN PO PAIN 1-10 AND/OR FEVER >101F 12/02/16 00:30 Morphine Sulfate (Morphine Inj) 2 mg Q2H PRN IV PAIN SCALE 6 TO 10 12/02/16 00:30 Pantoprazole Sodium (Protonix Inj) 40 mg Q12H IV 12/02/16 00:30 Midazolam HCl (Versed Inj) 2 mg Q1H PRN IV SEDATION 12/02/16 00:30 Ondansetron HCl (Zofran Inj) 4 mg Q6H PRN IV NAUSEA OR VOMITING 12/02/16 00:30 Metoclopramide HCl (Reglan Inj) 10 mg Q6H PRN IV NAUSEA OR VOMITING 12/02/16 00:30 Zolpidem Tartrate (Ambien) 5 mg HS PRN PO INSOMNIA 12/02/16 00:30 Miscellaneous Information 1 [id number] XX 12/02/16 00:30 Chlorhexidine Gluconate (Chlorhexidine 2% Cloth) 3 pack Taper DAILY@04 TOP 12/02/16 04:00 11/28/17 03:59 Chlorhexidine Gluconate (Chlorhexidine 2% Cloth) 3 pack UNSCH PRN TOP HYGIENIC CARE 12/02/16 00:30 Family History Noncontributory Social History Denies smoking denies alcohol abuse has a history of remote alcohol abuse denies illicit drug abuse Physical Exam Vital Signs Vital Signs Date Time Temp Pulse Resp B/P Pulse Ox O2 Delivery O2 Flow Rate FiO2 12/02/16 04:21 98.0 78 18 98/60 98 Nasal Cannula 2 12/02/16 03:00 72 18 103/69 99 Room Air 12/02/16 02:12 76 18 127/65 100 Nasal Cannula 2 12/02/16 01:34 98.3 75 18 97/64 100 Nasal Cannula 2 12/02/16 01:26 98.6 81 18 87/57 100 Room Air 2 12/02/16 01:17 98.6 81 18 87/57 100 Nasal Cannula 2 12/02/16 00:47 98.3 75 16 106/64 100 Nasal Cannula 2 12/02/16 00:05 97.9 81 18 100/62 100 Nasal Cannula 2 12/01/16 23:50 89 20 98/58 97 Room Air 12/01/16 23:33 96 18 115/69 100 Nasal Cannula 2 12/01/16 22:34 79 18 136/62 100 Physical Exam GENERAL: Well-nourished, well-developed patient. No acute distress SKIN: Warm and dry. HEAD: Normocephalic. EYES: No scleral icterus. No injection or drainage. NECK: Supple, trachea midline. No JVD or lymphadenopathy. CARDIOVASCULAR: Regular rate and rhythm without murmurs, gallops, or rubs. RESPIRATORY: Breath sounds equal bilaterally. No accessory muscle use. GASTROINTESTINAL: Abdomen soft, non-tender, nondistended. MUSCULOSKELETAL: No cyanosis, or edema. BACK: Nontender without obvious deformity. No CVA tenderness. EXTREMITIES: No clubbing cyanosis or edema Laboratory Laboratory Tests Test 12/01/16 12/01/16 12/02/16 23:00 23:51 02:15 White Blood Count 6.1 Red Blood Count 1.94 Hemoglobin 5.8 Hematocrit 17.9 Mean Corpuscular Volume 92.2 Mean Corpuscular Hemoglobin 29.9 Mean Corpuscular Hemoglobin 32.5 Concent Red Cell Distribution Width 18.2 Platelet Count 131 Mean Platelet Volume 10.3 Neutrophils (%) (Auto) 77.7 Lymphocytes (%) (Auto) 15.6 Monocytes (%) (Auto) 5.6 Eosinophils (%) (Auto) 0.3 Basophils (%) (Auto) 0.8 Neutrophils # (Auto) 4.8 Lymphocytes # (Auto) 1.0 Monocytes # (Auto) 0.3 Eosinophils # (Auto) 0.0 Basophils # (Auto) 0.1 CBC Comment DIFF FINAL Differential Comment Prothrombin Time 15.5 Prothromb Time International 1.4 Ratio Activated Partial 27.9 Thromboplast Time Sodium Level 141 Potassium Level 4.6 Chloride Level 105 Carbon Dioxide Level 23.9 Anion Gap 12 Blood Urea Nitrogen 32 Creatinine 1.18 Estimat Glomerular Filtration 64 Rate Random Glucose 187 Calcium Level 7.8 Magnesium Level 1.5 Total Bilirubin 1.0 Aspartate Amino Transf 45 (AST/SGOT) Alanine Aminotransferase 37 (ALT/SGPT) Alkaline Phosphatase 68 Total Creatine Kinase 128 Creatine Kinase MB 4.9 Troponin I 0.03 Total Protein 5.4 Albumin 2.1 Lipase 120 Ethyl Alcohol Level LESS THAN 3 B-Type Natriuretic Peptide 113 Blood Type A POSITIVE Antibody Screen NEGATIVE Crossmatch Leukocyte-Reduced Red Blood Cells Blood Bank Comment Lactic Acid Level 6.9 4.2 Result Diagram: 12/01/16 2300 12/01/16 2300 Imaging Last 24 hours Impressions Chest X-Ray 12/01/164 Signed Impressions: Service Date/Time: Thursday, December 01, 2016 23:04 - CONCLUSION: No acute disease. Raad Finch Jr., MD Assessment and Plan Problem List: (1) GI bleed ICD Code: K92.2 Status: Acute (2) Esophageal varices ICD Code: I85.00 Status: Acute (3) Anemia ICD Code: D64.9 Status: Acute (4) Gastritis ICD Code: K29.70 Status: Acute Assessment and Plan Upper GI bleed - Portal hypertension - Due to liver cirrhosis - Hepatitis C - IV fluid resuscitation - Blood transfusion - Octreotide drip - Protonix 40 IV twice a day - FFP's - GI consult appreciated Anemia - Due to above - Serial H&H - Transfuse to keep hemoglobin above 7 Coagulopathy - Underlying liver disease - Transfuse 2 units of FFP's Diabetes mellitus - Insulin sliding scale Hypertension - Currently normotensive - Hold all antihypertensive medications due to active GI bleed DVT GI prophylaxis - Teds SCDs - Protonix drip - No pharmacal DVT prophylaxis due to active GI bleed Critical Care: The total critical care time was 35 minutes. Time to perform other separately billable procedures was not included in the critical care time. Patricio Landrum MD Dec 02, 2016 04:43
[2016-12-02 04:55] LABS: HEMATOCRIT 25.3 % (39.0-51.0)
[2016-12-02 05:06] LABS: REVIEW FLAG FINAL
[2016-12-02] MEDS: MORPHINE SULFATE 4 MG/ML INJ IV PRN ×2 (06:08→09:50)
[2016-12-02] MEDS: SODIUM CHLORIDE 0.9% FLUSH 10 ML FLUSH SCH ×2 (09:00→21:00)
--- NOTE | 2016-12-02 09:14 | EKG ---
Date Performed: 12/01/2016 Time Performed: 23:12:43 PTAGE: 56 years EKG: Sinus rhythm WITH OCCASIONAL SUPRAVENTRICULAR PREMATURE COMPLEXES BORDERLINE ECG PREVIOUS TRACING : 10/23/2016 04.21 DOCTOR: Landon Mccloud Interpretating Date/Time 12/02/2016 09:12:18
[2016-12-02] MEDS: OCTREOTIDE INJ 500 MCG in SODIUM CHLORID 0.9% 500 ML INJ 500 ML IV SCH ×2 (09:47→18:37)
[2016-12-02] MEDS ORDERED: SODIUM PHOSPHATE INJ 30 MMOL in SODIUM CHLOR 0.9% 250 ML INJ 240 ML IV PRN (10:30)
[2016-12-02] MEDS ORDERED: MAGNESIUM OXIDE 400 MG TAB PO PRN (10:30)
[2016-12-02] MEDS ORDERED: POTASSIUM CHLOR 40 MEQ PREMIX 100 ML IV PRN ×2 (10:30)
[2016-12-02] MEDS ORDERED: POTASSIUM CHLOR 20 MEQ PREMIX 100 ML IV PRN (10:30)
[2016-12-02] MEDS ORDERED: POTASSIUM PHOSPHATE INJ 30 MMOL in SODIUM CHLOR 0.9% 250 ML INJ 250 ML IV PRN (10:30)
[2016-12-02] MEDS ORDERED: MAGNESIUM SULFATE INJ 4 GM in SODIUM CHLORIDE 0.9% INJ 92 ML IV PRN (10:30)
[2016-12-02] MEDS ORDERED: POTASSIUM PHOSPHATE MONOBASIC 500 MG TAB PO/TUBE PRN (10:30)
[2016-12-02] MEDS ORDERED: POTASSIUM PHOSPHATE MONOBASIC 500 MG TAB PO PRN (10:30)
--- NOTE | 2016-12-02 10:58 | PD.CONS ---
HPI History of Present Illness This is a 56 year old [gentleman] who came to the hospital yesterday after feeling dizzy and having 3 episodes of vomit with dark blood that looked like "chicken livers." He also had both dark and bright red blood in his stool, and diarrhea. He said he has had no vomit today but has had blood in his stool. He says he is having some mild diffuse lower abdominal pain. Per his RN he has had 4 x maroon stools. He said he was in the hospital in August for fluid in his abdomen, in September for blood in his stool and blood in vomit, and then in October after a trip to [place] for bluid in his abdomen and SOB and then had a paracentesis. He has a hx of hep-c for which he is asking for treatment. He says occasionally has a beer or concetta but otherwise has not had anything to drink in 3 years. Denies nausea, vomiting. (Carissa Zhu) PFSH Past Medical History Hypertension Liver cirrhosis Hepatitis C Dyslipidemia Diabetes mellitus Diabetic neuropathy History of portal vein thrombosis Prior history of alcohol abuse Chronic back pain Degenerative disc disease History of ascites treated with paracentesis in the past Past Surgical History Paracentesis Repair clavicle Appendectomy (Carissa Zhu) Coded Allergies: Neosporin (Verified Allergy, Mild, 12/01/16) Polysporin (Verified Allergy, Mild, RASH, 12/01/16) Medications Active Scripts Medications Dose Route/Sig Days Date Category Amlodipine (Amlodipine Besylate) 10 Mg Tab 10 Mg PO DAILY 12/01/16 Reported Tums (Calcium Carbonate (Antacid)) 500 Mg Chew 500 Mg CHEW DAILY PRN 12/01/16 Reported Isosorbide Dinitrate 5 Mg Tab 5 Mg PO DAILY 12/01/16 Reported Spironolactone 25 Mg Tab 25 Mg PO DAILY 12/01/16 Reported Ferrous Sulfate 325 Mg Tab 325 Mg PO BID 10/27/16 Rx Pantoprazole (Pantoprazole Sodium) 40 Mg Tab 40 Mg PO Q12HR 30 10/27/16 Rx Propranolol (Propranolol HCl) 20 Mg Tab 20 Mg PO DAILY 30 10/27/16 Rx Furosemide 20 Mg Tab 20 Mg PO DAILY 30 10/27/16 Rx Lactinex (Lactobacillus Acidophilus) 1 Chew 1 Tab CHEW DAILY 09/23/16 Rx Lyrica (Pregabalin) 300 Mg Cap 300 Mg PO TID 09/17/16 Reported Buspirone (Buspirone HCl) 10 Mg Tab 10 Mg PO TID 09/17/16 Reported Baclofen 20 Mg Tab 20 Mg PO TID 09/17/16 Reported Hydrocodone-Acetaminophen 10-325 mg Tab 1 Tab PO 5 TIMES A DAY PRN 09/17/16 Reported Family History No family hx colon or gastric cancers Social History Drinks occasionally but no heavy drinking in 3 years Occasional use of tobacco products when he is stressed No illegal drug use (Carissa Zhu) Review of Systems Constitutional: COMPLAINS OF: Fatigue, Dizziness Endocrine: DENIES: Polydipsia Eyes: DENIES: Blurred vision Ears, nose, mouth, throat: DENIES: Hearing loss Respiratory: DENIES: Cough, Shortness of breath Cardiovascular: DENIES: Chest pain, Lower Extremity Edema Gastrointestinal: COMPLAINS OF: Abdominal pain, Bloody stools, Diarrhea, Vomiting, Swelling of Abdomen, Hematemesis, DENIES: Nausea Musculoskeletal: DENIES: Joint pain Integumentary: DENIES: Rash Hematologic/lymphatic: DENIES: Bruising Neurologic: DENIES: Abnormal gait (Carissa Zhu) GI Exam Vitals I&O Vital Signs Date Time Temp Pulse Resp B/P Pulse Ox O2 Delivery O2 Flow Rate FiO2 12/02/16 08:56 97 Nasal Cannula 1.50 12/02/16 08:00 98.6 77 19 112/60 99 12/02/16 07:10 98.9 76 13 104/61 98 12/02/16 06:50 98.7 74 18 132/63 98 12/02/16 06:17 74 12/02/16 05:30 98.7 73 11 110/57 98 12/02/16 05:04 80 18 105/64 100 Nasal Cannula 2 12/02/16 04:21 98.0 78 18 98/60 98 Nasal Cannula 2 12/02/16 03:00 72 18 103/69 99 Room Air 12/02/16 02:12 76 18 127/65 100 Nasal Cannula 2 12/02/16 01:34 98.3 75 18 97/64 100 Nasal Cannula 2 12/02/16 01:26 98.6 81 18 87/57 100 Room Air 2 12/02/16 01:17 98.6 81 18 87/57 100 Nasal Cannula 2 12/02/16 00:47 98.3 75 16 106/64 100 Nasal Cannula 2 12/02/16 00:05 97.9 81 18 100/62 100 Nasal Cannula 2 12/01/16 23:50 89 20 98/58 97 Room Air 12/01/16 23:33 96 18 115/69 100 Nasal Cannula 2 12/01/16 22:34 79 18 136/62 100 I/O 12/01/16 12/01/16 12/01/16 12/02/16 12/02/16 12/02/16 07:00 15:00 23:00 07:00 15:00 23:00 Intake Total 1750 ml Output Total 1500 ml Balance 250 ml IV Total 1000 ml Packed Cells 750 ml Output Urine Total 550 ml Stool Total 450 ml Emesis 500 ml # Bowel Movements 3 Laboratory Test 12/01/16 12/01/16 12/02/16 12/02/16 23:00 23:51 02:15 03:40 White Blood Count 6.1 TH/MM3 Red Blood Count 1.94 MIL/MM3 Hemoglobin 5.8 GM/DL 8.5 GM/DL Hematocrit 17.9 % 25.3 % Mean Corpuscular Volume 92.2 FL Mean Corpuscular Hemoglobin 29.9 PG Mean Corpuscular Hemoglobin 32.5 % Concent Red Cell Distribution Width 18.2 % Platelet Count 131 TH/MM3 Mean Platelet Volume 10.3 FL Neutrophils (%) (Auto) 77.7 % Lymphocytes (%) (Auto) 15.6 % Monocytes (%) (Auto) 5.6 % Eosinophils (%) (Auto) 0.3 % Basophils (%) (Auto) 0.8 % Neutrophils # (Auto) 4.8 TH/MM3 Lymphocytes # (Auto) 1.0 TH/MM3 Monocytes # (Auto) 0.3 TH/MM3 Eosinophils # (Auto) 0.0 TH/MM3 Basophils # (Auto) 0.1 TH/MM3 CBC Comment DIFF FINAL Differential Comment Prothrombin Time 15.5 SEC Prothromb Time International 1.4 RATIO Ratio Activated Partial 27.9 SEC Thromboplast Time Sodium Level 141 MEQ/L Potassium Level 4.6 MEQ/L Chloride Level 105 MEQ/L Carbon Dioxide Level 23.9 MEQ/L Anion Gap 12 MEQ/L Blood Urea Nitrogen 32 MG/DL Creatinine 1.18 MG/DL Estimat Glomerular Filtration 64 ML/MIN Rate Random Glucose 187 MG/DL Calcium Level 7.8 MG/DL Magnesium Level 1.5 MG/DL Total Bilirubin 1.0 MG/DL Aspartate Amino Transf 45 U/L (AST/SGOT) Alanine Aminotransferase 37 U/L (ALT/SGPT) Alkaline Phosphatase 68 U/L Total Creatine Kinase 128 U/L Creatine Kinase MB 4.9 NG/ML Troponin I 0.03 NG/ML Total Protein 5.4 GM/DL Albumin 2.1 GM/DL Lipase 120 U/L Ethyl Alcohol Level LESS THAN 3 MG/DL B-Type Natriuretic Peptide 113 PG/ML Blood Type A POSITIVE Antibody Screen NEGATIVE Crossmatch Leukocyte-Reduced Red Blood Cells Blood Bank Comment Lactic Acid Level 6.9 mmol/L 4.2 mmol/L Test 12/02/16 12/02/16 04:40 05:45 Blood Bank Comment Nasal Screen MRSA (PCR) NEGATIVE Physical Examination HEENT: EOMI; normocephalic; atraumatic; pale NECK: Neck is supple, no JVD, no lymphadenopathy. CHEST: Chest is clear to auscultation and percussion. CARDIAC: Regular rate and rhythm with no murmur gallop or rubs. ABDOMEN: Soft, distended, nontender; no hepatosplenomegaly; bowel sounds are present in all four quadrants. EXTREMITIES: No clubbing, cyanosis, or edema. SKIN: Normal; no rash; AGRICULTURAL COMMODITIES GRADER: No focal deficits; alert and oriented times three. (Carissa Zhu) Assessment and Plan Plan ASSESSMENT: - GI bleed. Hematemesis x 3 yesterday, maroon stools today x 4. 10/23/16 EGD--- > grade 1 esophageal varices, severe gastropathy with signs of significant portal htn, diffuse oozing. Hx varices so will do EGD and if neg, colonoscopy tomorrow. - Anemic HH 8.5,25.3. PLAN: - EGD today - NPO - obtain consents - await results of above - continue to monitor HH - transfuse as necessary This patient was seen by myself and Dr. Maciel and this note is written on his behalf. 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 IV protonix/ octreotide recommended. EGD today. Outpt. treatment for Hep c. Will follow. Thank you (Rhonda Maciel MD) Carissa Zhu Dec 02, 2016 10:58 Rhonda Maciel MD Dec 02, 2016 18:36
[2016-12-02 11:20] LABS: HEMATOCRIT 21.2 % (39.0-51.0)
[2016-12-02 11:24] LABS: REVIEW FLAG FINAL
[2016-12-02] MEDS ORDERED: ONDANSETRON HCL 4 MG/2 ML VIAL IV PUSH ONE (12:00)
[2016-12-02] MEDS: MAGNESIUM SULFATE INJ 2 GM in SODIUM CHLORIDE 0.9% INJ 96 ML IV PRN (12:49)
[2016-12-02] MEDS ORDERED: KETAMINE HCL 500 MG/5 ML VIAL ONE ×2 (13:39→13:40)
[2016-12-02] MEDS ORDERED: PROPOFOL 200 MG/20 ML AMP IV ONE (14:00)
[2016-12-02] MEDS ORDERED: PROPOFOL 1000 MG/100 ML INJ 100 ML ONE (14:09)
--- NOTE | 2016-12-02 14:10 | GIPROC ---
[facility] [address] [facility]. [facility], [address] EGD PROCEDURE REPORT EXAM DATE: 12/02/2016 PATIENT NAME: Azael Arzola MR #: [id number] BIRTHDATE: 1960 ATTENDING: Rhonda Maciel MD ORDER #: [id number] NEWSSTAND VENDOR: Vel Isabel and Marc oTmlinson STATUS: inpatient INDICATIONS: The patient is a 56 yr old male here for an EGD due to hematemesis and hematochezia PROCEDURE PERFORMED: EGD, diagnostic MEDICATIONS: Per Anesthesia and None. TOPICAL ANESTHETIC: CONSENT: The patient understands the risks and benefits of the procedure and understands that these risks include, but are not limited to: sedation, allergic reaction, infection, perforation and/or bleeding. Alternative means of evaluation and treatment include, among others: physical exam, x-rays, and/or surgical intervention. The patient elects to proceed with this endoscopic procedure. medical equipment was checked for proper function. Hand hygiene and appropriate measures for infection prevention was taken. After the risks, benefits and alternatives of the procedure were thoroughly explained, Informed consent was verified, confirmed and timeout was successfully executed by the treatment team. The patient was anesthetized with topical anesthesia and the Pentax [id number] endoscope was introduced through the mouth and advanced to the second portion of the duodenum. Retroflexed views revealed Large blood clot The gastroscope was then slowly withdrawn and removed. ESOPHAGUS: There was a single small varix in the distal esophagus. There was evidence of prior scarring. STOMACH: Half the stomach covered by blood clot and food debris. No active bleeding seen. ADVERSE EVENTS: There were no complications. IMPRESSIONS: 1. Half the stomach covered by blood clot and food debris. No active bleeding seen 2. Retroflexed views revealed Large blood clot RECOMMENDATIONS: Continue PPI/Octreotide. Humanities Teacher consult , Iv reglan and erythromicin. PATIENT CONDITION: stable DISPOSITION: Inpatient REPEAT EXAM: Return 1 day EGD Rhonda Maciel MD eSigned: Rhonda Maciel MD 12/02/2016 2:09 PM cc: PATIENT NAME: Azael Arzola MR#: [id number]
[2016-12-02] MEDS ORDERED: DO NOT ADM ANY ANTICOAGULANT DRUGS PRN (14:20)
[2016-12-02] MEDS: METOCLOPRAMIDE HCL 10 MG/2 ML VIAL IV PUSH SCH ×2 (15:17→21:38)
[2016-12-02 15:43] LABS: BLOOD GAS BASE EXCESS -0.5 mmol/L (-2-2); BLOOD GAS CARBOXYHEMOGLOBIN 2.3 % (0-4); BLOOD GAS HCO3 24 mmol/L (22-26); BLOOD GAS METHEMOGLOBIN 1.6 % (0-2); BLOOD GAS O2 HGB SATURATION 96 % (90-100); BLOOD GAS OXYGEN CONTENT 10.3 Vol % (12.0-20.0); BLOOD GAS PCO2 42 mmHg (38-42); BLOOD GAS PO2 156 mmHg (61-120); BLOOD GAS TOTAL HGB 7.4 G/DL (12.0-16.0); TEMP CORR TO 98.6
[2016-12-02 15:44] LABS: CRITICAL VALUE NO; DRAW SITE RT RADIAL; FIO2 50 %; NUMBER OF ARTERIAL PUNCTURES 1; OXYGEN DEVICE VENTILATOR; STAT NO; ULNAR PULSE PRESENT; VENT SETTINGS 500/12/5PEEP
--- NOTE | 2016-12-02 15:44 | RADRPT ---
EXAM DATE/TIME: 12/02/2016 16:06 [place] COMPARISON: CHEST SINGLE AP, December 01, 2016, 23:04. INDICATIONS : Evaluate for ET tube placement. MEDICAL HISTORY : Hypertension. Diabetes mellitus type II. Hepatitis C. SURGICAL HISTORY : Appendectomy. ENCOUNTER: Subsequent ACUITY: 1 day PAIN SCORE: Non-responsive. LOCATION: Chest FINDINGS: ET tube is in good position. Previous clavicle repair is noted on the right. There is very minimal bibasilar parenchymal changes. Linear atelectasis is seen in the right lung. CONCLUSION: ET tube in good position. There is no pneumothorax. Long Bella MD FACR on December 02, 2016 at 15:39 Board Certified Radiologist. This report was verified electronically.
[2016-12-02] MEDS: PROPOFOL 1000 MG/100 ML IV SCH ×2 (19:04→23:55)
[2016-12-02 19:29] LABS: HEMATOCRIT 25.4 % (39.0-51.0)
[2016-12-02] MEDS ORDERED: PROPOFOL 1000 MG/100 ML INJ 100 ML IV SCH (19:30)
[2016-12-02 19:34] LABS: REVIEW FLAG FINAL
[2016-12-02 23:34] LABS: HEMATOCRIT 25.5 % (39.0-51.0)
[2016-12-02 23:46] LABS: REVIEW FLAG FINAL
[2016-12-03] VITALS (19 sets, daily range): BP systolic 99–152; BP diastolic 52–81; PULSE 62–78; RESP 13–29; TEMP 97.7–99.4; O2SAT 98–100
[2016-12-03] MEDS: CHLORHEXIDINE GLUCONATE 2 % 1 PACK (2 CLOTHS) TOP SCH ×2 (04:00→23:31)
[2016-12-03 04:32] LABS: BASOPHIL % 0.8 % (0.0-2.0); EOSINOPHIL # 0.1 TH/MM3 (0-0.4); EOSINOPHIL % 2.2 % (0.0-4.0); HEMATOCRIT 25.9 % (39.0-51.0); LYMPHOCYTE # 0.8 TH/MM3 (1.0-4.8); MEAN CELL VOLUME 83.9 FL (80.0-100.0); MEAN CORPUSCULAR HEMOGLOBIN 29.1 PG (27.0-34.0); MEAN CORPUSCULAR HGB CONC 34.6 % (32.0-36.0); MONO % 8.7 % (0.0-8.0); NEUT % 64.3 % (16.0-70.0); PLATELET COUNT 70 TH/MM3 (150-450); RED BLOOD COUNT 3.09 MIL/MM3 (4.50-5.90); RED CELL DISTRIBUTION WIDTH 18.3 % (11.6-17.2); WHITE BLOOD COUNT 3.2 TH/MM3 (4.0-11.0)
[2016-12-03 04:41] LABS: HEMO FLAGS AUTO DIFF
[2016-12-03 04:51] LABS: ALKALINE PHOSPHATASE 56 U/L (45-117); ALT (GPT) 54 U/L (12-78); ANION GAP 6 MEQ/L (5-15); AST (GOT) 102 U/L (15-37); BICARBONATE 26.9 MEQ/L (21.0-32.0); BLOOD UREA NITROGEN 28 MG/DL (7-18); CHLORIDE 111 MEQ/L (98-107); GLOMERULAR FILTRATION RATE 92 ML/MIN (>89); POTASSIUM 4.1 MEQ/L (3.5-5.1); SODIUM (NA) 144 MEQ/L (136-145); TOTAL BILIRUBIN ADULT 1.1 MG/DL (0.2-1.0)
[2016-12-03] MEDS: PROPOFOL 1000 MG/100 ML IV SCH ×6 (04:55→23:31)
[2016-12-03] MEDS: OCTREOTIDE INJ 500 MCG in SODIUM CHLORID 0.9% 500 ML INJ 500 ML IV SCH ×3 (04:55→23:31)
[2016-12-03 06:08] LABS: PLATELET ESTIMATE SMEAR LOW (NORMAL); PLATELET MORPHOLOGY NORMAL (NORMAL); SCAN/DIFF AUTO DIFF CONFIRMED
[2016-12-03] MEDS: METOCLOPRAMIDE HCL 10 MG/2 ML VIAL IV PUSH SCH ×3 (06:19→20:33)
[2016-12-03] MEDS: SODIUM CHLORIDE 0.9% FLUSH 10 ML FLUSH SCH ×2 (08:23→20:33)
--- NOTE | 2016-12-03 11:51 | HHI.CCPN ---
Subjective Remarks/Hospital Course Hospital Course: 56 year old male presents with a history of GI bleed that he reports began the day prior to admission. The patient reports that he's had been vomiting of blood 5 times today, has some bloody and melanotic stool 2 today. The patient has a history of GI bleeds previously related to cirrhosis and varices, last in September requiring a blood transfusion. 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 The patient became concerned when he began to feel lightheaded, dizzy, weak with standing. He was visiting and camping in [place] last months and he reports that while in [place] he did have abdominal distention and 2 L of ascitic fluid was removed from his abdomen. The patient denies any recent fevers, cough, congestion, neck pain, chest pain, shortness of breath, abdominal pain, urinary symptoms, or other neurologic symptoms. Subjective: 12/03: taken for EGD yesterday, too much blood in stomach for adequate evaluation. GI and anesthesia were concerned that he would be high risk for aspiration of blood. left intubated, taken to ICU with plan for re-scope today. given a total of 6 units prbc, 2 ffp yesterday. today, H&H stable. lactate slowly clearing, although with cirrhosis, may be more of hepatic metabolism than persistent end-organ hypoperfusion. Objective Vital Signs Date Time Temp Pulse Resp B/P Pulse Ox O2 Delivery O2 Flow Rate FiO2 12/03/16 11:15 98 40 12/03/16 10:00 63 12/03/16 08:00 98.9 15 118/66 12/02/16 15:45 Mechanical Ventilator 12/02/16 08:56 1.50 Intake and Output 12/02/16 12/02/16 12/03/16 08:00 16:00 00:00 Intake Total 750 ml 2300 ml 3925 ml Output Total 1000 ml 800 ml 575 ml Balance -250 ml 1500 ml 3350 ml Result Diagram: 12/03/16 0353 12/03/16 0353 Other Results Laboratory Tests Test 12/02/16 15:30 Blood Gas Puncture Site RT RADIAL Blood Gas Patient Temperature 98.6 Blood Gas HCO3 24 mmol/L (22-26) Blood Gas Base Excess -0.5 mmol/L (-2-2) Blood Gas Oxygen Saturation 96 % (90-100) Arterial Blood pH 7.38 (7.380-7.420) Arterial Blood Partial 42 mmHg (38-42) Pressure CO2 Arterial Blood Partial 156 mmHg Pressure O2 (61-120) Arterial Blood Oxygen Content 10.3 Vol % (12.0-20.0) Arterial Blood 2.3 % (0-4) Carboxyhemoglobin Arterial Blood Methemoglobin 1.6 % (0-2) Blood Gas Hemoglobin 7.4 G/DL (12.0-16.0) Oxygen Delivery Device VENTILATOR Blood Gas Ventilator Setting 500/12/5PEEP Blood Gas Inspired Oxygen 50 % Imaging Last 24 hours Impressions Chest X-Ray 12/01/16 2244 Signed Impressions: Service Date/Time: Thursday, December 01, 2016 23:04 - CONCLUSION: No acute disease. Raad Finch Jr., MD Objective Remarks GENERAL: middle-aged male who appears much older than stated age. intubated, sedated, critically ill. SKIN: Warm and dry. HEAD: Normocephalic. EYES: No scleral icterus. No injection or drainage. NECK: trachea midline. No JVD. CARDIOVASCULAR: Normal rate, regular rhythm. sinus by telemetry. RESPIRATORY: ACV 12/500/5/40%, equal chest rise. not using accessory muscles GASTROINTESTINAL: Abdomen soft, non-tender, nondistended. MUSCULOSKELETAL: No cyanosis, or edema. EXTREMITIES: No clubbing cyanosis or edema NEURO: RASS -2. follows commands. A/P Problem List: (1) GI bleed ICD Code: K92.2 Status: Acute (2) Esophageal varices ICD Code: I85.00 Status: Acute (3) Anemia ICD Code: D64.9 Status: Acute (4) Gastritis ICD Code: K29.70 Status: Acute Assessment and Plan Assessment: 56yM with ESLD and upper GI bleed. he is not on pathway, requiring intubation to prevent aspiration of gastric blood. Plan per GI is to repeat EGD today. for now we will trend H&H, continue to transfuse for hgb > 7 or hemodynamic instability. continue intubation without SBT until his upper GI bleed is secured. He remains critically ill with his high risk of aspiration and his upper GI bleed which are both life-threatening and off pathway. Upper GI bleed - Portal hypertension - Due to liver cirrhosis - Hepatitis C - IV fluid resuscitation - Blood transfusion - Octreotide drip - Protonix 40 IV twice a day - GI consult - remain intubated until definitive management of upper GI bleed. Anemia - Due to above - Serial H&H - Transfuse to keep hemoglobin above 7 Coagulopathy - Underlying liver disease - Transfuse 2 units of FFP's Diabetes mellitus - Insulin sliding scale Hypertension - Currently normotensive - Hold all antihypertensive medications due to active GI bleed High concern for aspiration -- vent bundle -- HOB at 30 degrees -- no SBT today -- stay intubated until scope DVT GI prophylaxis - Teds SCDs - Protonix drip - No pharmacal DVT prophylaxis due to active GI bleed Critical Care: The total critical care time was 31 minutes. Time to perform other separately billable procedures was not included in the critical care time. Problem Qualifiers (1) GI bleed: Qualified Code: K92.2 - Gastrointestinal hemorrhage, unspecified gastrointestinal hemorrhage type (2) Anemia: Qualified Code: D62 - Acute posthemorrhagic anemia Martin Stinson MD Dec 03, 2016 11:51
[2016-12-03] MEDS: PANTOPRAZOLE SODIUM 40 MG VIAL IV SCH ×2 (12:44→23:31)
[2016-12-03] MEDS: cefTRIAXone INJ 1,000 MG in SODIUM CHLORIDE 0.9% INJ 100 ML IV SCH (12:48)
[2016-12-03] MEDS: SODIUM CHLOR 0.9% 1000 ML INJ 1,000 ML IV SCH ×2 (12:48→20:36)
[2016-12-03] MEDS ORDERED: PROPOFOL 200 MG/20 ML AMP IV ONE (18:07)
--- NOTE | 2016-12-03 18:18 | GIPROC ---
[facility] [address] [facility]. [facility], [address] EGD PROCEDURE REPORT EXAM DATE: 12/03/2016 PATIENT NAME: Azael Arzola MR #: [id number] BIRTHDATE: 1960 ATTENDING: Rhonda Maciel MD ORDER #: [id number] STEEL POURER: Kishan Wright RN STATUS: inpatient INDICATIONS: The patient is a 56 yr old male here for an EGD due to iron deficiency anemia, acute post hemorrhagic anemia, and hematemesis PROCEDURE PERFORMED: EGD, diagnostic MEDICATIONS: None and Per Anesthesia. TOPICAL ANESTHETIC: CONSENT: The patient understands the risks and benefits of the procedure and understands that these risks include, but are not limited to: sedation, allergic reaction, infection, perforation and/or bleeding. Alternative means of evaluation and treatment include, among others: physical exam, x-rays, and/or surgical intervention. The patient elects to proceed with this endoscopic procedure. medical equipment was checked for proper function. Hand hygiene and appropriate measures for infection prevention was taken. After the risks, benefits and alternatives of the procedure were thoroughly explained, Informed consent was verified, confirmed and timeout was successfully executed by the treatment team. The patient was anesthetized with topical anesthesia and the endoscope was introduced through the mouth and advanced to the second portion of the duodenum. Retroflexed views revealed no abnormalities The gastroscope was then slowly withdrawn and removed. ESOPHAGUS: There was a single small varix in the distal esophagus. The varices were not bleeding. There was evidence of prior scarring. STOMACH: Moderate portal hypertensive gastropathy was found in the gastric fundus. DUODENUM: Old blood. ADVERSE EVENTS: There were no complications. IMPRESSIONS: 1. Portal hypertensive gastropathy was found in the gastric fundus 2. Old blood 3. Retroflexed views revealed no abnormalities RECOMMENDATIONS: 1. Anti-reflux regimen 2. Continue PPI 3. Avoid NSAIDS PATIENT CONDITION: stable DISPOSITION: Inpatient REPEAT EXAM: Return 1 year EGD with sclerotherapy Rhonda Maciel MD eSigned: Rhonda Maciel MD 12/03/2016 6:17 PM cc: PATIENT NAME: Azael Arzola MR#: [id number]
[2016-12-04] VITALS (17 sets, daily range): BP systolic 147–198; BP diastolic 75–93; PULSE 57–77; RESP 12–19; TEMP 97.3–99.2; O2SAT 95–100
[2016-12-04] MEDS: PROPOFOL 1000 MG/100 ML IV SCH (04:51)
[2016-12-04] MEDS: METOCLOPRAMIDE HCL 10 MG/2 ML VIAL IV PUSH SCH ×3 (04:51→20:48)
[2016-12-04 05:13] LABS: HEMATOCRIT 30.8 % (39.0-51.0); MEAN CELL VOLUME 86.6 FL (80.0-100.0); MEAN CORPUSCULAR HEMOGLOBIN 29.2 PG (27.0-34.0); MEAN CORPUSCULAR HGB CONC 33.7 % (32.0-36.0); PLATELET COUNT 78 TH/MM3 (150-450); RED BLOOD COUNT 3.56 MIL/MM3 (4.50-5.90); RED CELL DISTRIBUTION WIDTH 18.6 % (11.6-17.2); WHITE BLOOD COUNT 3.1 TH/MM3 (4.0-11.0)
[2016-12-04 05:25] LABS: REVIEW FLAG FINAL
[2016-12-04 05:40] LABS: BICARBONATE 24.5 MEQ/L (21.0-32.0)
[2016-12-04] MEDS: SODIUM CHLORIDE 0.9% FLUSH 10 ML FLUSH SCH ×2 (08:05→20:47)
[2016-12-04] MEDS ORDERED: DEXMEDETOMIDINE INJ 200 MCG in SODIUM CHLORIDE 0.9% INJ 50 ML IV SCH (08:30)
--- NOTE | 2016-12-04 08:57 | HHI.CCPN ---
Subjective Remarks/Hospital Course Hospital Course: 56 year old male presents with a history of GI bleed that he reports began the day prior to admission. The patient reports that he's had been vomiting of blood 5 times today, has some bloody and melanotic stool 2 today. The patient has a history of GI bleeds previously related to cirrhosis and varices, last in September requiring a blood transfusion. He reports that he has a follow-up plan with his professor of geography for endoscopy this week. The patient became concerned when he began to feel lightheaded, dizzy, weak with standing. He was visiting and camping in [place] last months and he reports that while in [place] he did have abdominal distention and 2 L of ascitic fluid was removed from his abdomen. The patient denies any recent fevers, cough, congestion, neck pain, chest pain, shortness of breath, abdominal pain, urinary symptoms, or other neurologic symptoms. Subjective: 12/03: taken for EGD yesterday, too much blood in stomach for adequate evaluation. GI and anesthesia were concerned that he would be high risk for aspiration of blood. left intubated, taken to ICU with plan for re-scope today. given a total of 6 units prbc, 2 ffp yesterday. today, H&H stable. lactate slowly clearing, although with cirrhosis, may be more of hepatic metabolism than persistent end-organ hypoperfusion. 12/04: Hb stable at 10.4. Tolerating CPAP, but agitated off sedation. EGD 12/03/16: Portal gastropathy, gastric fundus. a single small varix in the distal esophagus which was not bleeding Objective Vital Signs Date Time Temp Pulse Resp B/P Pulse Ox O2 Delivery O2 Flow Rate FiO2 12/04/16 08:09 96 35 12/04/16 06:00 58 12/04/16 04:00 99.0 15 160/84 12/02/16 15:45 Mechanical Ventilator 12/02/16 08:56 1.50 Intake and Output 12/03/16 12/03/16 12/04/16 08:00 16:00 00:00 Intake Total 1071 ml 1539 ml 1688 ml Output Total 550 ml 1500 ml 600 ml Balance 521 ml 39 ml 1088 ml Result Diagram: 12/04/16 0448 12/04/16 0448 Imaging Last 24 hours Impressions Chest X-Ray 12/01/16 5812 Signed Impressions: Service Date/Time: Thursday, December 01, 2016 23:04 - CONCLUSION: No acute disease. Raad Finch Jr., MD Objective Remarks GENERAL: middle-aged male who appears older than stated age. intubated, sedated , critically ill. SKIN: Warm and dry. HEAD: Normocephalic. EYES: No scleral icterus. No injection or drainage. NECK: trachea midline. No JVD. CARDIOVASCULAR: Normal rate, regular rhythm. sinus by telemetry. RESPIRATORY: ACV 12/500/5/35%, equal chest rise. not using accessory muscles GASTROINTESTINAL: Abdomen soft, non-tender, nondistended. MUSCULOSKELETAL: No cyanosis, or edema. EXTREMITIES: No clubbing cyanosis or edema NEURO: Intubated sedated. On sedation hold most extremities did not follow commands Urinary Catheter: Yes Assessment to: Continue A/P Problem List: (1) GI bleed ICD Code: K92.2 Status: Acute (2) Esophageal varices ICD Code: I85.00 Status: Acute (3) Anemia ICD Code: D64.9 Status: Acute (4) Gastritis ICD Code: K29.70 Status: Acute Assessment and Plan Assessment: 56yM with ESLD and upper GI bleed, requiring intubation to prevent aspiration of gastric blood. Plan per GI is to repeat EGD today, for now we will trend H&H, continue to transfuse for hgb > 7 or hemodynamic instability. continue intubation without SBT until his upper GI bleed is secured. He remains critically ill with his high risk of aspiration and his upper GI bleed which are both life-threatening and off pathway. Upper GI bleed - Portal hypertension. EGD 12/03 doses portal gastropathy, due to liver cirrhosis - Hepatitis C - IV fluid resuscitation - Blood transfusion to keep Hb>7 - Octreotide drip-DC today - Protonix 40 IV twice a day - GI Dr. Rosen EGD 12/03/16: Portal gastropathy, gastric fundus. a single small varix in the distal esophagus which was not bleeding - extubate if passing CPAP - Empiric abx for SBP prophylaxis Anemia - Due to above - Serial H&H - Transfuse to keep hemoglobin above 7 Coagulopathy - Underlying liver disease - s/p 2 units of FFP's Diabetes mellitus - Insulin sliding scale Hypertension - Currently normotensive - Hold all antihypertensive medications due to active GI bleed (except start Inderal for prophylaxis against variceal bleed) High concern for aspiration -- vent bundle -- HOB at 30 degrees -- No SBT today -- SBT today DVT GI prophylaxis - Teds SCDs - Protonix IV - No pharmacal DVT prophylaxis due to active GI bleed Critical Care: The total critical care time was 30 minutes. Time to perform other separately billable procedures was not included in the critical care time. Problem Qualifiers (1) GI bleed: Qualified Code: K92.2 - Gastrointestinal hemorrhage, unspecified gastrointestinal hemorrhage type (2) Anemia: Qualified Code: D62 - Acute posthemorrhagic anemia Cory Olsen MD Dec 04, 2016 08:57
[2016-12-04] MEDS: DEXMEDETOMIDINE INJ 400 MCG in SODIUM CHLORIDE 0.9% INJ 100 ML IV SCH ×2 (09:30→19:05)
[2016-12-04] MEDS: SODIUM CHLOR 0.9% 1000 ML INJ 1,000 ML IV SCH ×2 (10:34→20:48)
[2016-12-04] MEDS: PROPRANOLOL HCL 10 MG TAB PO SCH ×3 (14:00→21:04)
[2016-12-04] MEDS ORDERED: DO NOT ADM ANY ANTICOAGULANT DRUGS PRN (14:15)
[2016-12-04] MEDS: PANTOPRAZOLE SODIUM 40 MG VIAL IV SCH (14:32)
[2016-12-04] MEDS: cefTRIAXone INJ 1,000 MG in SODIUM CHLORIDE 0.9% INJ 100 ML IV SCH (14:51)
--- NOTE | 2016-12-04 17:38 | HHI.GIFU ---
Subjective Remarks Pt was extubated earlier today. No active bleeding. Lethargic, confused. ( Yumiko Vale) Objective Vitals I&O Vital Signs Date Time Temp Pulse Resp B/P Pulse Ox O2 Delivery O2 Flow Rate FiO2 12/04/16 16:00 68 12/04/16 14:00 72 12/04/16 12:00 97.3 61 17 155/82 98 12/04/16 12:00 77 12/04/16 11:29 95 Nasal Cannula 4 36 12/04/16 10:00 62 12/04/16 08:09 96 35 12/04/16 08:00 35 12/04/16 08:00 57 12/04/16 08:00 40 12/04/16 08:00 97.4 71 12 185/80 98 12/04/16 06:00 58 12/04/16 04:17 99 35 12/04/16 04:00 99.0 66 15 160/84 98 12/04/16 04:00 66 12/04/16 04:00 40 12/04/16 02:00 64 12/04/16 01:30 100 40 12/04/16 00:00 99.2 63 15 147/75 98 12/04/16 00:00 63 12/04/16 00:00 40 12/03/16 22:54 100 40 12/03/16 22:00 66 12/03/16 20:00 40 12/03/16 20:00 99.4 64 15 122/71 98 12/03/16 20:00 64 12/03/16 19:53 100 50 12/03/16 18:00 72 I/O 12/03/16 12/03/16 12/03/16 12/04/16 12/04/16 12/04/16 07:00 15:00 23:00 07:00 15:00 23:00 Intake Total 1071 ml 1539 ml 1688 ml 928 ml 1068 ml Output Total 550 ml 1500 ml 600 ml 650 ml 1000 ml Balance 521 ml 39 ml 1088 ml 278 ml 68 ml IV Total 1071 ml 1539 ml 1688 ml 928 ml 1068 ml Output Urine Total 550 ml 1500 ml 600 ml 650 ml 1000 ml # Bowel Movements 1 1 0 Laboratory Laboratory Tests Test 12/04/16 04:48 White Blood Count 3.1 Red Blood Count 3.56 Hemoglobin 10.4 Hematocrit 30.8 Mean Corpuscular Volume 86.6 Mean Corpuscular Hemoglobin 29.2 Mean Corpuscular Hemoglobin 33.7 Concent Red Cell Distribution Width 18.6 Platelet Count 78 Mean Platelet Volume 9.5 Sodium Level 144 Potassium Level 4.0 Chloride Level 111 Carbon Dioxide Level 24.5 Anion Gap 9 Blood Urea Nitrogen 17 Creatinine 0.75 Estimat Glomerular Filtration 107 Rate Random Glucose 142 Calcium Level 8.0 Imaging Last Impressions Chest X-Ray 12/02/16 0000 Signed Impressions: Service Date/Time: Friday, December 02, 2016 16:06 - CONCLUSION: ET tube in good position. There is no pneumothorax. Long Bella MD FACR Physical Exam HEENT: Normocephalic; atraumatic; no jaundice. CHEST: CTA CARDIAC: RRR ABDOMEN: Soft, nondistended, nontender; hepatosplenomegaly; bowel sounds are present in all four quadrants. EXTREMITIES: No clubbing, cyanosis, or edema. SKIN: Normal; no rash; no jaundice. REGULATORY AFFAIRS COORDINATOR: LEthargic, confused. (Yumiko Vale) Assessment and Plan Plan ASSESSMENT: - GI bleed. Hematemesis x 3 yesterday, maroon stools x 4. S/P EGD (12/02/16)---- -> 1. Portal hypertensive gastropathy was found in the gastric fundus 2. Old blood 3. Retroflexed views revealed no abnormalities. No active bleeding. HH stable 10.4/30.8. PPI. - Anemia, acute blood loss. HH 10.4/30.8. S/P 6 units. - Liver cirrhosis, portal htn, LFT stable. Propanolol - Coagulopathy. PT 15.5/INR 1.4 - DM, HTN, per primary PLAN: - JEREMY - PPI - Inderal - Monitor labs - Supportive care - Further recommendations to follow based on results of above - Pt seen and examined by Dr. Maciel and myself and this note is written on his behalf (Yumiko Vale) Physician Comments Seen and examined with KIMANI, no active bleeding reported, extubated today. Monitor for D.Ts. Dc octreotide tomorrow. Diet as tolerated.Will sign off, gi fu upon dc. Thank you (Rhonda Maciel MD) Yumiko Vale Dec 04, 2016 17:38 Rhonda Maciel MD Dec 04, 2016 19:32
[2016-12-04] MEDS ORDERED: hydrALAZINE HCL 20 MG/ML VIAL IV ONE (20:30)
[2016-12-04] MEDS ORDERED: hydrALAZINE HCL 20 MG/ML VIAL IV PUSH ONE (20:45)
[2016-12-04] MEDS: PANTOPRAZOLE SOD 40 MG DELAYED RELEASE TAB PO SCH ×2 (20:48→21:00)
[2016-12-04] MEDS: DEXMEDETOMIDINE INJ 1,000 MCG in SODIUM CHLOR 0.9% 250 ML INJ 240 ML IV SCH (21:29)
[2016-12-04] MEDS: MORPHINE SULFATE 4 MG/ML INJ IV PRN (22:25)
[2016-12-04] MEDS ORDERED: LORazepam 2 MG/ML VIAL IV PUSH PRN ×2 (23:15)
[2016-12-04] MEDS ORDERED: FLUMAZENIL 0.5 MG/5 ML VIAL IV PUSH PRN (23:15)
[2016-12-04] MEDS ORDERED: SODIUM CHLORIDE 0.9% FLUSH 10 ML FLUSH IV FLUSH SCH (23:15)
[2016-12-04] MEDS ORDERED: LORazepam 2 MG TAB PO PRN (23:15)
[2016-12-04] MEDS ORDERED: SODIUM CHLORIDE 0.9% FLUSH 10 ML FLUSH IV FLUSH PRN (23:15)
[2016-12-04] MEDS ORDERED: LORazepam 1 MG TAB PO PRN (23:15)
[2016-12-05] VITALS (14 sets, daily range): BP systolic 107–144; BP diastolic 55–77; PULSE 53–96; RESP 14–18; TEMP 97.1–98.3; O2SAT 96–98
[2016-12-05] MEDS: chlordiazePOXIDE 25 MG CAP PO SCH ×3 (00:30→17:04)
[2016-12-05] MEDS: THIAMINE INJ 100 MG in SODIUM CHLORIDE 0.9% INJ 100 ML IV SCH (00:30)
[2016-12-05] MEDS: MULTIVITAMIN INJ 10 ML, FOLIC ACID INJ 1 MG in SODIUM CHLORID 0.9% 500 ML INJ 500 ML IV SCH (00:30)
[2016-12-05] MEDS: CHLORHEXIDINE GLUCONATE 2 % 1 PACK (2 CLOTHS) TOP SCH (04:00)
[2016-12-05] MEDS: LORazepam 2 MG/ML VIAL IV PUSH PRN ×4 (04:27→20:04)
[2016-12-05 04:47] LABS: INTERNATIONAL NORMALIZED RATIO 1.2 RATIO; PROTHROMBIN TIME - PATIENT 12.8 SEC (9.8-11.6)
[2016-12-05 04:49] LABS: ALT (GPT) 39 U/L (12-78); ANION GAP 9 MEQ/L (5-15); BICARBONATE 23.4 MEQ/L (21.0-32.0); BLOOD UREA NITROGEN 17 MG/DL (7-18); CHLORIDE 110 MEQ/L (98-107); GLOMERULAR FILTRATION RATE 122 ML/MIN (>89); MAGNESIUM 1.6 MG/DL (1.5-2.5); SODIUM (NA) 142 MEQ/L (136-145)
[2016-12-05 04:56] LABS: ALKALINE PHOSPHATASE 66 U/L (45-117); TOTAL BILIRUBIN ADULT 2.2 MG/DL (0.2-1.0)
[2016-12-05 05:00] LABS: AST (GOT) 47 U/L (15-37); POTASSIUM 3.7 MEQ/L (3.5-5.1)
[2016-12-05 05:07] LABS: AUTOMATED NEUTROPHIL # 1.6 TH/MM3 (1.8-7.7); EOSINOPHIL # 0.1 TH/MM3 (0-0.4); EOSINOPHIL % 3.3 % (0.0-4.0); HEMATOCRIT 29.8 % (39.0-51.0); LYMPH % 25.7 % (9.0-44.0); LYMPHOCYTE # 0.7 TH/MM3 (1.0-4.8); MEAN CELL VOLUME 87.3 FL (80.0-100.0); MEAN CORPUSCULAR HEMOGLOBIN 29.2 PG (27.0-34.0); MEAN CORPUSCULAR HGB CONC 33.4 % (32.0-36.0); MONO % 11.8 % (0.0-8.0); NEUT % 58.2 % (16.0-70.0); PLATELET COUNT 68 TH/MM3 (150-450); RED BLOOD COUNT 3.42 MIL/MM3 (4.50-5.90); RED CELL DISTRIBUTION WIDTH 17.8 % (11.6-17.2); WHITE BLOOD COUNT 2.7 TH/MM3 (4.0-11.0)
[2016-12-05 05:10] LABS: HEMO FLAGS AUTO DIFF
[2016-12-05] MEDS: PROPRANOLOL HCL 10 MG TAB PO SCH ×5 (06:00→22:22)
[2016-12-05] MEDS: METOCLOPRAMIDE HCL 10 MG/2 ML VIAL IV PUSH SCH ×3 (06:02→22:22)
[2016-12-05] MEDS: PANTOPRAZOLE SOD 40 MG DELAYED RELEASE TAB PO SCH ×2 (08:49→20:04)
[2016-12-05] MEDS: SODIUM CHLORIDE 0.9% FLUSH 10 ML FLUSH SCH ×2 (08:49→20:03)
[2016-12-05] MEDS ORDERED: ALBUMIN HUMAN 25% 25 GM/100 ML BAGP IV ONE (09:20)
--- NOTE | 2016-12-05 09:46 | HHI.CCPN ---
Subjective Remarks/Hospital Course Hospital Course: 56 year old male presents with a history of GI bleed that he reports began the day prior to admission. The patient reports that he's had been vomiting of blood 5 times today, has some bloody and melanotic stool 2 today. The patient has a history of GI bleeds previously related to cirrhosis and varices, last in September requiring a blood transfusion. He reports that he has a follow-up plan with his endless bed drum sander for endoscopy this week. The patient became concerned when he began to feel lightheaded, dizzy, weak with standing. He was visiting and camping in [place] last months and he reports that while in [place] he did have abdominal distention and 2 L of ascitic fluid was removed from his abdomen. The patient denies any recent fevers, cough, congestion, neck pain, chest pain, shortness of breath, abdominal pain, urinary symptoms, or other neurologic symptoms. Subjective: 12/03: taken for EGD yesterday, too much blood in stomach for adequate evaluation. GI and anesthesia were concerned that he would be high risk for aspiration of blood. left intubated, taken to ICU with plan for re-scope today. given a total of 6 units prbc, 2 ffp yesterday. today, H&H stable. lactate slowly clearing, although with cirrhosis, may be more of hepatic metabolism than persistent end-organ hypoperfusion. 12/04: Hb stable at 10.4. Tolerating CPAP, but agitated off sedation. EGD 12/03/16: Portal gastropathy, gastric fundus. a single small varix in the distal esophagus which was not bleeding 12/05: Extubated yesterday tolerating respiratory ash. Severe agitation requiring Precedex and when necessary Ativan. Bedside ultrasound shows large ascites. Plan for paracentesis today Objective Vital Signs Date Time Temp Pulse Resp B/P Pulse Ox O2 Delivery O2 Flow Rate FiO2 12/05/16 07:29 97 Nasal Cannula 2.00 12/05/16 06:00 54 12/05/16 04:00 97.6 14 114/64 12/04/16 11:29 36 Intake and Output 12/04/16 12/04/16 12/05/16 08:00 16:00 00:00 Intake Total 928 ml 1068 ml 929 ml Output Total 650 ml 1000 ml 850 ml Balance 278 ml 68 ml 79 ml Result Diagram: 12/05/1639912/05/16399 Imaging Last 24 hours Impressions Chest X-Ray 12/01/16 7064 Signed Impressions: Service Date/Time: Thursday, December 01, 2016 23:04 - CONCLUSION: No acute disease. Raad Finch Jr., MD Objective Remarks GENERAL: middle-aged male who appears older than stated age. critically ill. SKIN: Warm and dry. HEAD: Normocephalic. EYES: No scleral icterus. No injection or drainage. NECK: trachea midline. No JVD. CARDIOVASCULAR: Normal rate, regular rhythm. sinus by telemetry. RESPIRATORY: Equal chest rise. not using accessory muscles GASTROINTESTINAL: Abdomen soft, non-tender, distended. Large ascites on bedside US MUSCULOSKELETAL: No cyanosis, or edema. EXTREMITIES: No clubbing cyanosis or edema NEURO: Currently sedated on Precedex. Not following commands. Moves all extremities A/P Problem List: (1) GI bleed ICD Code: K92.2 Status: Acute (2) Esophageal varices ICD Code: I85.00 Status: Acute (3) Anemia ICD Code: D64.9 Status: Acute (4) Gastritis ICD Code: K29.70 Status: Acute (5) Ascites ICD Code: R18.8 Status: Acute Assessment and Plan Assessment: 56yM with ESLD and upper GI bleed, requiring intubation to prevent aspiration of gastric blood. Plan per GI is to repeat EGD today, for now we will trend H&H, continue to transfuse for hgb > 7 or hemodynamic instability. continue intubation without SBT until his upper GI bleed is secured. He remains critically ill with his high risk of aspiration and his upper GI bleed which are both life-threatening and off pathway. Neuro: Delirium - Most likely secondary to alcohol withdrawal - Continue Precedex and when necessary Ativan - Patient refuses to take PO Librium Cardiac - Currently normotensive - Hold all antihypertensive medications due to active GI bleed (except started on Inderal for prophylaxis against variceal bleed) Respiratory failure --Extubated 12/04/16. Tolerated well. -Continue DuoNeb every 6 hours scheduled and when necessary -Aggressive pulmonary toilet -Patient will not tolerate EzPAP or acapella due to agitation Upper GI bleed - Portal hypertension. EGD 4/6 doses portal gastropathy, due to liver cirrhosis - Hepatitis C - IV fluid resuscitation - Blood transfusion to keep Hb>7, keep plt count >50,000 - Octreotide drip-DC12/04/16 - Protonix 40 IV twice a day - GI Dr. Rosen EGD 12/03/16: Portal gastropathy, gastric fundus. a single small varix in the distal esophagus which was not bleeding - Empiric abx for SBP prophylaxis - Large ascites on US, plan for paracentesis, with further studies HEME Anemia/thrombocytopenia - Due to above - Serial H&H - Transfuse to keep hemoglobin above 7, keep platelet count above 50,000 Coagulopathy - Underlying liver disease - s/p 2 units of FFP's Diabetes mellitus - Insulin sliding scale DVT GI prophylaxis - Teds SCDs - Protonix IV - No pharmacal DVT prophylaxis due to active GI bleed Critical Care: The total critical care time was 30 minutes. Time to perform other separately billable procedures was not included in the critical care time. Problem Qualifiers (1) GI bleed: Qualified Code: K92.2 - Gastrointestinal hemorrhage, unspecified gastrointestinal hemorrhage type (2) Anemia: Qualified Code: D62 - Acute posthemorrhagic anemia Cory Olsen MD Dec 05, 2016 09:46
[2016-12-05] MEDS: ALBUMIN HUMAN 25% 12.5 GM/50 ML BAGP IV SCH ×2 (10:00→17:05)
--- NOTE | 2016-12-05 10:17 | PD.PROCEDR ---
Procedure Note Procedure Paracentesis Procedure Note INDICATION: Large ascites Ultrasound used to priscilla location at RLQ CONSENT: Consent was obtained prior to the procedure. Indications, risks, and benefits were explained at length. PROCEDURE SUMMARY: A time-out was performed. A a surgical cap, mask with protective eyewear, sterile gown and sterile gloves were used throughout the procedure. The area was cleansed and draped in usual sterile fashion using chlorhexidine scrub. Anesthesia was achieved with 1% lidocaine. The RLQ of the abdomen was prepped and draped in a sterile fashion using chlorhexidine scrub. 1% lidocaine was used to numb the skin, soft tissue and peritoneum. The paracentesis catheter was inserted and advanced with negative pressure until light yellow colored fluid was aspirated. Approximately 60 mL of ascitic fluid was collected for laboratory analysis. The catheter was then connected to the Vacutainer and 5.2 liters of additional ascitic fluid were drained. The catheter was removed. A bandaid was placed over the puncture wound. The patient tolerated the procedure well without any immediate complications. Estimated blood loss was <1ml. Cory Olsne MD Dec 05, 2016 10:17
[2016-12-05 10:59] LABS: PLATELET ESTIMATE SMEAR LOW (NORMAL); PLATELET MORPHOLOGY NORMAL (NORMAL)
[2016-12-05 11:00] LABS: SCAN/DIFF AUTO DIFF CONFIRMED
[2016-12-05] MEDS: SODIUM CHLOR 0.9% 1000 ML INJ 1,000 ML IV SCH (11:53)
[2016-12-05] MEDS: cefTRIAXone INJ 1,000 MG in SODIUM CHLORIDE 0.9% INJ 100 ML IV SCH (12:47)
[2016-12-05 13:31] LABS: PERITONEAL HISTIOCYTES 1 %; PERITONEAL LYMPHS 32 %; PERITONEAL MONOS 7 %; PERITONEAL POLYS(SEGS) 60 %; PERITONEAL WBC 59 /MM3 (0-10)
[2016-12-05] MEDS: hydrALAZINE HCL 20 MG/ML VIAL IV PUSH PRN (17:05)
[2016-12-05] MEDS: DEXMEDETOMIDINE INJ 1,000 MCG in SODIUM CHLOR 0.9% 250 ML INJ 240 ML IV SCH (20:04)
[2016-12-05] MEDS ORDERED: DEXTROSE 50% IN WATER 50 ML VIAL(D50) IV PUSH PRN (21:00)
[2016-12-05] MEDS ORDERED: GLUCAGON 1 MG/ML VIAL OTHER PRN (21:00)
[2016-12-05] MEDS: LOW DOSE INSULIN NOVOLIN REGULAR SUPPLEMENTAL SCALE SQ SCH (21:00)
[2016-12-06] VITALS (14 sets, daily range): BP systolic 105–185; BP diastolic 57–86; PULSE 56–87; RESP 16–17; TEMP 97.2–98.7; O2SAT 94–97
[2016-12-06] MEDS: MULTIVITAMIN INJ 10 ML, FOLIC ACID INJ 1 MG in SODIUM CHLORID 0.9% 500 ML INJ 500 ML IV SCH ×2 (00:27→22:43)
[2016-12-06] MEDS: THIAMINE INJ 100 MG in SODIUM CHLORIDE 0.9% INJ 100 ML IV SCH ×2 (00:27→22:43)
[2016-12-06] MEDS: SODIUM CHLOR 0.9% 1000 ML INJ 1,000 ML IV SCH (00:27)
[2016-12-06] MEDS: ALBUMIN HUMAN 25% 12.5 GM/50 ML BAGP IV SCH (01:57)
[2016-12-06] MEDS: CHLORHEXIDINE GLUCONATE 2 % 1 PACK (2 CLOTHS) TOP SCH (04:00)
[2016-12-06 05:17] LABS: BICARBONATE 24.4 MEQ/L (21.0-32.0); POTASSIUM 3.3 MEQ/L (3.5-5.1)
[2016-12-06 05:51] LABS: AUTOMATED NEUTROPHIL # 1.4 TH/MM3 (1.8-7.7); BASOPHIL % 0.7 % (0.0-2.0); EOSINOPHIL # 0.1 TH/MM3 (0-0.4); EOSINOPHIL % 2.8 % (0.0-4.0); HEMATOCRIT 27.5 % (39.0-51.0); LYMPH % 22.2 % (9.0-44.0); LYMPHOCYTE # 0.5 TH/MM3 (1.0-4.8); MEAN CELL VOLUME 87.2 FL (80.0-100.0); MEAN CORPUSCULAR HEMOGLOBIN 29.7 PG (27.0-34.0); MONO % 11.4 % (0.0-8.0); NEUT % 62.9 % (16.0-70.0); PLATELET COUNT 78 TH/MM3 (150-450); RED BLOOD COUNT 3.15 MIL/MM3 (4.50-5.90); RED CELL DISTRIBUTION WIDTH 17.5 % (11.6-17.2); WHITE BLOOD COUNT 2.2 TH/MM3 (4.0-11.0)
[2016-12-06] MEDS: PROPRANOLOL HCL 10 MG TAB PO SCH ×4 (06:00→22:00)
[2016-12-06 06:11] LABS: HEMO FLAGS AUTO DIFF
[2016-12-06] MEDS: METOCLOPRAMIDE HCL 10 MG/2 ML VIAL IV PUSH SCH ×3 (06:24→20:15)
[2016-12-06] MEDS: LOW DOSE INSULIN NOVOLIN REGULAR SUPPLEMENTAL SCALE SQ SCH ×4 (06:25→21:00)
[2016-12-06] MEDS: POTASSIUM CHLOR 20 MEQ PREMIX 100 ML IV PRN (06:26)
--- NOTE | 2016-12-06 08:15 | HHI.CCPN ---
Subjective Remarks/Hospital Course Hospital Course: 56 year old male presents with a history of GI bleed that he reports began the day prior to admission. The patient reports that he's had been vomiting of blood 5 times today, has some bloody and melanotic stool 2 today. The patient has a history of GI bleeds previously related to cirrhosis and varices, last in September requiring a blood transfusion. He reports that he has a follow-up plan with his ldr nurse for endoscopy this week. The patient became concerned when he began to feel lightheaded, dizzy, weak with standing. He was visiting and camping in [place] last months and he reports that while in [place] he did have abdominal distention and 2 L of ascitic fluid was removed from his abdomen. The patient denies any recent fevers, cough, congestion, neck pain, chest pain, shortness of breath, abdominal pain, urinary symptoms, or other neurologic symptoms. Subjective: 12/03: taken for EGD yesterday, too much blood in stomach for adequate evaluation. GI and anesthesia were concerned that he would be high risk for aspiration of blood. left intubated, taken to ICU with plan for re-scope today. given a total of 6 units prbc, 2 ffp yesterday. today, H&H stable. lactate slowly clearing, although with cirrhosis, may be more of hepatic metabolism than persistent end-organ hypoperfusion. 12/04: Hb stable at 10.4. Tolerating CPAP, but agitated off sedation. EGD 12/03/16: Portal gastropathy, gastric fundus. a single small varix in the distal esophagus which was not bleeding 12/05: Extubated yesterday tolerating respiratory ash. Severe agitation requiring Precedex and when necessary Ativan. Bedside ultrasound shows large ascites. Plan for paracentesis today 12/06: Mental status slightly improved but still on Precedex due to agitated delirium. Cooperative today. Status post large volume paracentesis yesterday with 5.2 L removed Objective Vital Signs Date Time Temp Pulse Resp B/P Pulse Ox O2 Delivery O2 Flow Rate FiO2 12/06/16 06:00 61 12/06/16 04:00 98.0 17 130/62 94 12/05/16 19:06 Nasal Cannula 2.00 12/04/16 11:29 36 Intake and Output 12/05/16 12/05/16 12/06/16 08:00 16:00 00:00 Intake Total 1272 ml 1056 ml 740 ml Output Total 200 ml 6200 ml 150 ml Balance 1072 ml -5144 ml 590 ml Result Diagram: 12/06/164 12/06/164 Imaging Last 24 hours Impressions Chest X-Ray 12/01/16 2244 Signed Impressions: Service Date/Time: Thursday, December 01, 2016 23:04 - CONCLUSION: No acute disease. Raad Finch Jr., MD Objective Remarks GENERAL: middle-aged male who appears older than stated age. Somnolent SKIN: Warm and dry. HEAD: Normocephalic. EYES: No scleral icterus. No injection or drainage. NECK: trachea midline. No JVD. CARDIOVASCULAR: Normal rate, regular rhythm. sinus by telemetry. RESPIRATORY: Equal chest rise. not using accessory muscles GASTROINTESTINAL: Abdomen soft, non-tender, distended. s/p paracentesis 5.2 L removed 12/05 MUSCULOSKELETAL: No cyanosis, or edema. EXTREMITIES: No clubbing cyanosis or edema NEURO: Currently sedated on Precedex. Opens eyes and follows commands. Moves all extremities A/P Problem List: (1) GI bleed ICD Code: K92.2 Status: Acute (2) Esophageal varices ICD Code: I85.00 Status: Acute (3) Anemia ICD Code: D64.9 Status: Acute (4) Gastritis ICD Code: K29.70 Status: Acute (5) Ascites ICD Code: R18.8 Status: Acute Assessment and Plan Assessment: 56yM with ESLD and upper GI bleed, requiring intubation to prevent aspiration of gastric blood. Now extubated, hemodynamically stable, continue to transfuse for hgb > 7 or hemodynamic instability. Neuro: Delirium - Most likely secondary to alcohol withdrawal - DC Precedex and use when necessary Ativan, Haldol - Patient refuses to take PO Librium - Psych consulted due to aggressive behavior towards staff Cardiac - Currently normotensive - Holding all antihypertensive medications due to active GI bleed (except started on Inderal for prophylaxis against variceal bleed) Respiratory failure --Extubated 12/04/16. Tolerated well. -Continue DuoNeb every 6 hours scheduled and when necessary -Aggressive pulmonary toilet Upper GI bleed - Portal hypertension. EGD 4/6 doses portal gastropathy, due to liver cirrhosis - History of portal vein thrombosis - Hepatitis C - s/p IV fluid resuscitation. Will DC IVF - Blood transfusion to keep Hb>7, keep plt count >50,000 - Octreotide drip-DC12/04/16 - Protonix 40 IV twice a day - GI Dr. Rosen EGD 12/03/16: Portal gastropathy, gastric fundus. a single small varix in the distal esophagus which was not bleeding - Empiric abx for SBP prophylaxis - Large ascites on US, s/p paracentesis 12/05 No evidence of SBP HEME Anemia/thrombocytopenia - Due to above - Serial H&H - Transfuse to keep hemoglobin above 7, keep platelet count above 50,000 Coagulopathy - Underlying liver disease - s/p 2 units of FFP's Diabetes mellitus - Insulin sliding scale DVT GI prophylaxis - Teds SCDs - Protonix IV - No pharmacal DVT prophylaxis due to active GI bleed Critical Care: The total critical care time was 30 minutes. Time to perform other separately billable procedures was not included in the critical care time. Psych consulted for evaluation for IP psych Problem Qualifiers (1) GI bleed: Qualified Code: K92.2 - Gastrointestinal hemorrhage, unspecified gastrointestinal hemorrhage type (2) Anemia: Qualified Code: D62 - Acute posthemorrhagic anemia Cory Olsen MD Dec 06, 2016 08:15
[2016-12-06] MEDS: SODIUM CHLORIDE 0.9% FLUSH 10 ML FLUSH SCH ×2 (09:00→20:15)
[2016-12-06 09:19] LABS: OVALOCYTES 1+ (NORMAL); PLATELET ESTIMATE SMEAR LOW (NORMAL); PLATELET MORPHOLOGY NORMAL (NORMAL); SCAN/DIFF AUTO DIFF CONFIRMED
--- NOTE | 2016-12-06 09:29 | PD.CONS ---
Provisional Diagnosis Admission Date Dec 02, 2016 at 00:11 Mittie I. Delirium due to another medical condition F05, history of alcohol abuse Z 87.898 History of Present Illness Service Psychiatry Consult Requested By Attending [place]. Reason for Consult Assessment Primary Care Physician Long Huerta, DO HPI Patient 56-year-old white male with a history of alcohol abuse and substance abuse. Was admitted with upper GI bleed. No sequelae of long-term alcohol abuse. There is also documentation of past miss use of marijuana and cocaine. Review of EMR shows that his multiple contacts. Though there is been no prior psychiatric assessment or hospitalization. At the present time patient is slowly arousing from sedation due to his agitation. He still is in soft 4 point restraints. Patient seen in his room in bed with nurse present throughout session. He is drowsy with his eyes basically closed responses to my questions are slow but at times fairly accurate and responsive. He continues somewhat disoriented as to place situation though he knows he is in [facility] that is 2017 they thought it was February. He states his last drink was a number of years ago his last use of other drugs was overall month ago. He states he lives by himself. Denies prior psychiatric contact. He denies suicidality voices or visions. At the present time out recommend observation, monitoring his behavior as the recovers from the sedation. I agree with the use of small dose of Haldol to control agitation. I agree with continuing the ciwa protocol I would suggest judicious use of any other benzodiazepines or opiates. Thanks for consult and I will follow or Dr. Mercer will follow as needed Review of Systems ROS Limitations: Clinical Condition, Altered Mental Status Past Family Social History Coded Allergies: Neosporin (Verified Allergy, Mild, 12/01/16) Polysporin (Verified Allergy, Mild, RASH, 12/01/16) Past Medical History C MedSurg Active Scripts Ferrous Sulfate 325 Mg [id number] Mg PO BID #30 TAB Ref 0 Prov:Storm Valles MD 10/27/16 Pantoprazole 40 Mg Tab40 Mg PO Q12HR 30 Days Ref 0 Prov:Storm Valles MD 10/27/16 Propranolol 20 Mg Tab20 Mg PO DAILY 30 Days Ref 0 Prov:Storm Valles MD 10/27/16 Furosemide 20 Mg Tab20 Mg PO DAILY 30 Days Ref 0 Prov:Storm Valles MD 10/27/16 Lactobacillus Acidophilus (Lactinex)1 Chew1 Tab CHEW DAILY #30 TAB Ref 0 Prov:Isi Bertrand MD 09/23/16 Reported Medications Amlodipine 10 Mg Tab10 Mg PO DAILY #30 TAB Ref 0 12/01/16 Calcium Carbonate (Antacid) (Tums)500 Mg [id number] Mg CHEW DAILY PRN (HEARTBURN) Ref 0 12/01/16 Isosorbide Dinitrate 5 Mg Tab5 Mg PO DAILY 12/01/16 Spironolactone 25 Mg Tab25 Mg PO DAILY Ref 0 12/01/16 Pregabalin (Lyrica)300 Mg [id number] Mg PO TID #90 CAP Ref 0 09/17/16 Buspirone 10 Mg Tab10 Mg PO TID Ref 0 09/17/16 Baclofen 20 Mg Tab20 Mg PO TID Ref 0 09/17/16 Hydrocodone-Acetaminophen 10-325 mg Tab1 Tab PO 5 TIMES A DAY PRN (PAIN) Ref 0 09/17/16 Discontinued Scripts Rifaximin (Xifaxan)550 Mg [id number] Mg PO BID 30 Days Ref 0 Prov:Storm Valles MD 10/27/16 Isosorbide Dinitrate (Isordil Titradose)5 Mg Tab5 Mg PO TIDAC 30 Days Ref 0 Prov:Storm Valles MD 10/27/16 Methylcobalamin (Q49-Ashfsl)1 Mg Chew1 Mg CHEW DAILY #30 TAB Ref 0 Prov:Isi Bertrand MD 09/22/16 Current Medications Medications (Trade) Dose Ordered Sig/Jez Route Start Time Stop Time Status Last Admin (NS Flush) 2 ml UNSCH PRN .XX 12/02/16 00:30 (NS Flush) 2 ml BID .XX 12/02/16 09:00 12/05/16 20:03 (Tylenol) 650 mg Q6H PRN PO 12/02/16 00:30 (Morphine Inj) 2 mg Q2H PRN IV 12/02/16 00:30 12/04/16 22:25 (Zofran Inj) 4 mg Q6H PRN IV 12/02/16 00:30 (Reglan Inj) 10 mg Q6H PRN IV 12/02/16 00:30 Miscellaneous Information 1 Q361D XX 12/02/16 00:30 (Chlorhexidine 2% Cloth) 3 pack Taper DAILY@04 TOP 12/02/16 04:00 11/28/17 03:59 12/05/16 04:00 (Chlorhexidine 2% Cloth) 3 pack UNSCH PRN TOP 12/02/16 00:30 Magnesium Oxide 800 mg 800 mg UNSCH PRN PO 12/02/16 10:30 Magnesium Sulfate 4 gm/Sodium Chloride 100 ml @ 50 mls/hr UNSCH PRN IV 12/02/16 10:30 Magnesium Sulfate 2 gm/Sodium Chloride 100 ml @ 50 mls/hr UNSCH PRN IV 12/02/16 10:30 12/02/16 12:49 Potassium Chloride 100 ml @ 50 mls/hr Q2H PRN IV 12/02/16 10:30 Potassium Chloride 100 ml @ 50 mls/hr Q2H PRN IV 12/02/16 10:30 12/06/16 06:26 Potassium Chloride 100 ml @ 50 mls/hr Q2H PRN IV 12/02/16 10:30 (KCl 40 Meq Premix Inj) 100 ml @ 25 mls/hr UNSCH PRN IV 12/02/16 10:30 (K-Phos) 2,000 mg Q4H PRN PO 12/02/16 10:30 Potassium Phosphate 2000 mg 2,000 mg UNSCH PRN PO/TUBE 12/02/16 10:30 (Sodium Phosphate Inj/NS 250 ml Inj) 250 ml @ 42 mls/hr UNSCH PRN IV 12/02/16 10:30 Metoclopramide HCl 10 mg 10 mg Q8HR IV PUSH 12/02/16 14:45 12/06/16 06:24 (Rocephin Inj/NS Inj) 100 ml @ 200 mls/hr Q24H IV 12/03/16 12:00 12/08/16 11:59 12/05/16 12:47 (Inderal) 10 mg Q8HR PO 12/04/16 14:00 12/05/16 12:47 (Protonix) 40 mg Q12HR PO 12/04/16 21:00 12/05/16 20:04 (Apresoline Inj) 10 mg Q30M PRN IV PUSH 12/04/16 20:45 12/05/16 17:05 Chlordiazepoxide 25 mg 25 mg Taper Q8H PO 12/05/16 00:00 12/10/16 23:59 12/05/16 17:04 Multivitamins 10 ml/Folic Acid 1 mg/Sodium Chloride 510.2 ml @ 125 mls/hr Q24H IV 12/05/16 00:00 12/09/16 00:00 12/06/16 00:27 (Thiamine Inj/NS Inj) 101 ml @ 100 mls/hr Q24H IV 12/05/16 00:00 12/07/16 00:00 12/06/16 00:27 (Vitamin B1) 100 mg DAILY PO 12/08/16 09:00 (Romazicon Inj) 0.2 mg Q1M PRN IV PUSH 12/04/16 23:15 (Ativan) 1 mg Q4H PRN PO 12/04/16 23:15 (Ativan Inj) 1 mg Q4H PRN IV PUSH 12/04/16 23:15 (Ativan) 2 mg Q2H PRN PO 12/04/16 23:15 (Ativan Inj) 2 mg Q2H PRN IV PUSH 12/04/16 23:15 12/05/16 20:04 (Ativan Inj) 2 mg Q1H PRN IV PUSH 12/04/16 23:15 (Ativan Inj) 2 mg Q15M PRN IV PUSH 12/04/16 23:15 (Albumin 25% Inj) 25 gm Q8H IV 12/05/16 10:00 12/06/16 09:59 12/06/16 01:57 (D50w (Vial) Inj) 25 ml UNSCH PRN IV PUSH 12/05/16 21:00 (Glucagon Inj) 1 mg UNSCH PRN OTHER 12/05/16 21:00 (Haldol Inj) 3 mg Q4H PRN IV 12/06/16 08:15 Social History He states is single and lives by himself Patient's Strengths (min. 2) Patient verbal able access healthcare Physical Exam See MedSurg assessments Vital Signs Vital Signs Date Time Temp Pulse Resp B/P Pulse Ox O2 Delivery O2 Flow Rate FiO2 12/06/16 08:00 85 12/06/16 04:00 98.0 17 130/62 94 12/05/16 19:06 Nasal Cannula 2.00 12/04/16 11:29 36 I/O 12/05/16 12/05/16 12/06/16 08:00 16:00 00:00 Intake Total 1272 ml 1056 ml 740 ml Output Total 200 ml 6200 ml 150 ml Balance 1072 ml -5144 ml 590 ml Mental Status Examination Patient sedated to arousable with responses slow but overall fairly well goal oriented. He is diffusely confused though oriented to [facility] 2017 Appearance Disheveled Speech: Hesitant, Slow, Circumstantial, Tangential Orientation: Person Memory: Impaired (describe) Thought Process: Linear Thought Content: Other (disorganized) Language Mumbling in [place] Fund of Knowledge Poor Attention and Concentration: Easily Distracted Suicidal Ideation: No (denies) Previous Suicide Attempts: No (denies) Homicidal Ideation: No ( denies night) Previous Homicide Attempts: No (denies) Insight: Poor Judgment: Poor Affect: Other (marked decrease range and intensity) Mood: Other (restricted) Motor Activity: Abnormal gait-specify (patient in soft restraints in bed) Assessment & Plan Problem List: (1) Delirium due to another medical condition ICD Code: F05 (2) History of alcohol abuse ICD Code: Z87.898 Assessment & Plan Estimated LOS: days patient remains delirious, no significant medical/ metabolic issues related to his subsequent abuse history. See recommendations above. As okay by psych for discharge appropriate facility when patient medically clear. Patient is not a candidate at this time for a Winslow act or for admission to the psychiatric unit. The myself and Dr. Mercer will follow or Discharge Planning Per med surge team Request HC Surrog/Guard Advoc?: No Raúl Swift MD Dec 06, 2016 09:29
[2016-12-06] MEDS: chlordiazePOXIDE 25 MG CAP PO SCH ×4 (09:36→22:44)
[2016-12-06] MEDS: HALOPERIDOL LACTATE 5 MG/ML AMP IV PRN ×3 (09:37→22:44)
[2016-12-06] MEDS: PANTOPRAZOLE SOD 40 MG DELAYED RELEASE TAB PO SCH ×3 (09:37→21:00)
[2016-12-06] MEDS: cefTRIAXone INJ 1,000 MG in SODIUM CHLORIDE 0.9% INJ 100 ML IV SCH (12:00)
[2016-12-06 14:46] LABS: MAGNESIUM 1.4 MG/DL (1.5-2.5); POTASSIUM 3.8 MEQ/L (3.5-5.1)
[2016-12-06] MEDS: LORazepam 2 MG/ML VIAL IV PUSH PRN ×4 (17:52→22:44)
[2016-12-07] VITALS (14 sets, daily range): BP systolic 145–179; BP diastolic 72–86; PULSE 69–109; RESP 18–24; TEMP 98.4–99.7; O2SAT 92–96
[2016-12-07] MEDS: LORazepam 2 MG/ML VIAL IV PUSH PRN ×9 (00:16→19:04)
[2016-12-07] MEDS: CHLORHEXIDINE GLUCONATE 2 % 1 PACK (2 CLOTHS) TOP SCH (04:00)
[2016-12-07] MEDS: PROPRANOLOL HCL 10 MG TAB PO SCH ×3 (04:17→21:24)
[2016-12-07] MEDS: HALOPERIDOL LACTATE 5 MG/ML AMP IV PRN ×2 (04:17→08:33)
[2016-12-07] MEDS: METOCLOPRAMIDE HCL 10 MG/2 ML VIAL IV PUSH SCH ×3 (04:17→21:24)
[2016-12-07 04:49] LABS: BASOPHIL % 0.9 % (0.0-2.0); EOSINOPHIL # 0.1 TH/MM3 (0-0.4); EOSINOPHIL % 2.8 % (0.0-4.0); HEMATOCRIT 29.3 % (39.0-51.0); LYMPH % 22.8 % (9.0-44.0); LYMPHOCYTE # 0.7 TH/MM3 (1.0-4.8); MEAN CELL VOLUME 88.2 FL (80.0-100.0); MEAN CORPUSCULAR HEMOGLOBIN 28.7 PG (27.0-34.0); MEAN CORPUSCULAR HGB CONC 32.5 % (32.0-36.0); MONO % 10.6 % (0.0-8.0); NEUT % 62.9 % (16.0-70.0); PLATELET COUNT 83 TH/MM3 (150-450); RED BLOOD COUNT 3.32 MIL/MM3 (4.50-5.90); RED CELL DISTRIBUTION WIDTH 18.1 % (11.6-17.2); WHITE BLOOD COUNT 3.1 TH/MM3 (4.0-11.0)
[2016-12-07 04:51] LABS: HEMO FLAGS AUTO DIFF
[2016-12-07 05:14] LABS: BICARBONATE 21.3 MEQ/L (21.0-32.0); POTASSIUM 3.3 MEQ/L (3.5-5.1)
[2016-12-07] MEDS: LOW DOSE INSULIN NOVOLIN REGULAR SUPPLEMENTAL SCALE SQ SCH ×4 (06:08→20:05)
[2016-12-07] MEDS: POTASSIUM CHLOR 20 MEQ PREMIX 100 ML IV PRN ×2 (06:09→10:45)
[2016-12-07 07:40] LABS: PLATELET ESTIMATE SMEAR LOW (NORMAL); PLATELET MORPHOLOGY NORMAL (NORMAL); SCAN/DIFF AUTO DIFF CONFIRMED
[2016-12-07] MEDS: chlordiazePOXIDE 25 MG CAP PO SCH ×4 (08:00→23:20)
[2016-12-07] MEDS: SODIUM CHLORIDE 0.9% FLUSH 10 ML FLUSH SCH ×2 (08:34→20:05)
[2016-12-07] MEDS: PANTOPRAZOLE SOD 40 MG DELAYED RELEASE TAB PO SCH ×2 (08:34→20:05)
[2016-12-07] MEDS ORDERED: ZIPRASIDONE MESYLATE 20 MG VIAL IM PRN (10:15)
--- NOTE | 2016-12-07 10:18 | HHI.CCPN ---
Subjective Remarks/Hospital Course Hospital Course: 56 year old male presents with a history of GI bleed that he reports began the day prior to admission. The patient reports that he's had been vomiting of blood 5 times today, has some bloody and melanotic stool 2 today. The patient has a history of GI bleeds previously related to cirrhosis and varices, last in September requiring a blood transfusion. He reports that he has a follow-up plan with his vegetable grader for endoscopy this week. The patient became concerned when he began to feel lightheaded, dizzy, weak with standing. He was visiting and camping in [place] last months and he reports that while in [place] he did have abdominal distention and 2 L of ascitic fluid was removed from his abdomen. The patient denies any recent fevers, cough, congestion, neck pain, chest pain, shortness of breath, abdominal pain, urinary symptoms, or other neurologic symptoms. Subjective: 12/03: taken for EGD yesterday, too much blood in stomach for adequate evaluation. GI and anesthesia were concerned that he would be high risk for aspiration of blood. left intubated, taken to ICU with plan for re-scope today. given a total of 6 units prbc, 2 ffp yesterday. today, H&H stable. lactate slowly clearing, although with cirrhosis, may be more of hepatic metabolism than persistent end-organ hypoperfusion. 12/04: Hb stable at 10.4. Tolerating CPAP, but agitated off sedation. EGD 12/03/16: Portal gastropathy, gastric fundus. a single small varix in the distal esophagus which was not bleeding 12/05: Extubated yesterday tolerating respiratory ash. Severe agitation requiring Precedex and when necessary Ativan. Bedside ultrasound shows large ascites. Plan for paracentesis today 12/06: Mental status slightly improved but still on Precedex due to agitated delirium. Cooperative today. Status post large volume paracentesis yesterday with 5.2 L removed 12/07: off precedex today, but still requiring haldol and ativan frequently. hgb stable. Objective Vital Signs Date Time Temp Pulse Resp B/P Pulse Ox O2 Delivery O2 Flow Rate FiO2 12/07/16 06:00 74 12/07/16 04:00 98.7 23 179/81 95 12/06/16 08:29 21 12/05/16 19:06 Nasal Cannula 2.00 Intake and Output 12/06/16 12/06/16 12/07/16 08:00 16:00 00:00 Intake Total 1379 ml 1153 ml 120 ml Output Total 125 ml 760 ml 175 ml Balance 1254 ml 393 ml -55 ml Result Diagram: 12/07/16 0404 12/07/16 0404 Imaging Last 24 hours Impressions Chest X-Ray 12/01/16 9954 Signed Impressions: Service Date/Time: Thursday, December 01, 2016 23:04 - CONCLUSION: No acute disease. Raad Finch Jr., MD Objective Remarks GENERAL: middle-aged male who appears older than stated age. Somnolent SKIN: Warm and dry. HEAD: Normocephalic. EYES: No scleral icterus. No injection or drainage. NECK: trachea midline. No JVD. CARDIOVASCULAR: Normal rate, regular rhythm. sinus by telemetry. RESPIRATORY: Equal chest rise. not using accessory muscles GASTROINTESTINAL: Abdomen soft, non-tender, distended. s/p paracentesis 5.2 L removed 12/05 MUSCULOSKELETAL: No cyanosis, or edema. EXTREMITIES: No clubbing cyanosis or edema NEURO: Currently sedated on Precedex. Opens eyes and follows commands. Moves all extremities A/P Problem List: (1) GI bleed ICD Code: K92.2 Status: Acute (2) Esophageal varices ICD Code: I85.00 Status: Acute (3) Anemia ICD Code: D64.9 Status: Acute (4) Gastritis ICD Code: K29.70 Status: Acute (5) Ascites ICD Code: R18.8 Status: Acute Assessment and Plan Assessment: 56yM with ESLD and upper GI bleed, requiring intubation to prevent aspiration of gastric blood. Now extubated, hemodynamically stable, continue to transfuse for hgb > 7 or hemodynamic instability. Neuro: Severe Agitated Delirium Alcohol Withdraw - Most likely secondary to alcohol withdrawal - prn ativan, haldol, CIWA - add geodon 10mg IM q12h prn - add clonidine patch 0.3mg - continues to refuse all PO meds - Patient refuses to take PO Librium - Psych consulted due to aggressive behavior towards staff, agree with current management. Cardiac - Currently normotensive - Holding all antihypertensive medications due to active GI bleed (except started on Inderal for prophylaxis against variceal bleed) - start clonidine 0.3mg patch for etoh withdraw, tachycardia, hypertension. Respiratory failure --Extubated 12/04/16. Tolerated well. -Continue DuoNeb every 6 hours scheduled and when necessary -Aggressive pulmonary toilet Upper GI bleed - Portal hypertension. EGD 12/03 doses portal gastropathy, due to liver cirrhosis - History of portal vein thrombosis - Hepatitis C - s/p IV fluid resuscitation. Will DC IVF - Blood transfusion to keep Hb>7, keep plt count >50,000 - Octreotide drip-DC12/04/16 - Protonix 40 IV twice a day - GI Dr. Rosen EGD 12/03/16: Portal gastropathy, gastric fundus. a single small varix in the distal esophagus which was not bleeding - Empiric abx for SBP prophylaxis - Large ascites on US, s/p paracentesis 12/05 No evidence of SBP HEME Anemia secondary to acute blood loss thrombocytopenia secondary to ESLD - Due to above - daily CBC - Transfuse to keep hemoglobin above 7, keep platelet count above 50,000 Coagulopathy - Underlying liver disease - s/p 2 units of FFP's Diabetes mellitus - Insulin sliding scale DVT GI prophylaxis - Teds SCDs - Protonix IV - No pharmacal DVT prophylaxis due to active GI bleed Problem Qualifiers (1) GI bleed: Qualified Code: K92.2 - Gastrointestinal hemorrhage, unspecified gastrointestinal hemorrhage type (2) Anemia: Qualified Code: D62 - Acute posthemorrhagic anemia Martin Stinson MD Dec 07, 2016 10:18
[2016-12-07] MEDS: cefTRIAXone INJ 1,000 MG in SODIUM CHLORIDE 0.9% INJ 100 ML IV SCH (12:50)
[2016-12-07] MEDS: cloNIDine HCL 0.3 MG/24 HR PATCH T-DERMAL SCH (14:21)
[2016-12-07] MEDS: hydrALAZINE HCL 20 MG/ML VIAL IV PUSH PRN ×3 (18:35→23:22)
[2016-12-07] MEDS: MULTIVITAMIN INJ 10 ML, FOLIC ACID INJ 1 MG in SODIUM CHLORID 0.9% 500 ML INJ 500 ML IV SCH (23:20)
[2016-12-08] VITALS (13 sets, daily range): BP systolic 113–178; BP diastolic 57–88; PULSE 68–101; RESP 16–22; TEMP 98.6–99.1; O2SAT 92–95
[2016-12-08] MEDS: hydrALAZINE HCL 20 MG/ML VIAL IV PUSH PRN ×2 (02:49→05:07)
[2016-12-08] MEDS: CHLORHEXIDINE GLUCONATE 2 % 1 PACK (2 CLOTHS) TOP SCH ×2 (04:00→23:12)
[2016-12-08] MEDS: METOCLOPRAMIDE HCL 10 MG/2 ML VIAL IV PUSH SCH ×3 (05:06→22:25)
[2016-12-08] MEDS: LORazepam 2 MG/ML VIAL IV PUSH PRN ×2 (05:07→22:36)
[2016-12-08] MEDS: SODIUM CHLORIDE 0.9% FLUSH 10 ML FLUSH PRN (05:08)
[2016-12-08] MEDS: PROPRANOLOL HCL 10 MG TAB PO SCH ×3 (05:08→22:25)
[2016-12-08] MEDS: LOW DOSE INSULIN NOVOLIN REGULAR SUPPLEMENTAL SCALE SQ SCH ×4 (05:48→20:18)
[2016-12-08 06:52] LABS: HEMATOCRIT 30.8 % (39.0-51.0); MEAN CELL VOLUME 86.6 FL (80.0-100.0); MEAN CORPUSCULAR HEMOGLOBIN 29.6 PG (27.0-34.0); MEAN CORPUSCULAR HGB CONC 34.2 % (32.0-36.0); PLATELET COUNT 102 TH/MM3 (150-450); RED BLOOD COUNT 3.56 MIL/MM3 (4.50-5.90); RED CELL DISTRIBUTION WIDTH 17.8 % (11.6-17.2); REVIEW FLAG FINAL
[2016-12-08 07:09] LABS: BICARBONATE 23.1 MEQ/L (21.0-32.0); POTASSIUM 3.3 MEQ/L (3.5-5.1)
--- NOTE | 2016-12-08 07:16 | HHI.CCPN ---
Subjective Remarks/Hospital Course Hospital Course: 56 year old male presents with a history of GI bleed that he reports began the day prior to admission. The patient reports that he's had been vomiting of blood 5 times today, has some bloody and melanotic stool 2 today. The patient has a history of GI bleeds previously related to cirrhosis and varices, last in September requiring a blood transfusion. He reports that he has a follow-up plan with his garbage collector for endoscopy this week. The patient became concerned when he began to feel lightheaded, dizzy, weak with standing. He was visiting and camping in [place] last months and he reports that while in [place] he did have abdominal distention and 2 L of ascitic fluid was removed from his abdomen. The patient denies any recent fevers, cough, congestion, neck pain, chest pain, shortness of breath, abdominal pain, urinary symptoms, or other neurologic symptoms. Subjective: 12/03: taken for EGD yesterday, too much blood in stomach for adequate evaluation. GI and anesthesia were concerned that he would be high risk for aspiration of blood. left intubated, taken to ICU with plan for re-scope today. given a total of 6 units prbc, 2 ffp yesterday. today, H&H stable. lactate slowly clearing, although with cirrhosis, may be more of hepatic metabolism than persistent end-organ hypoperfusion. 12/04: Hb stable at 10.4. Tolerating CPAP, but agitated off sedation. EGD 12/03/16: Portal gastropathy, gastric fundus. a single small varix in the distal esophagus which was not bleeding 12/05: Extubated yesterday tolerating respiratory ash. Severe agitation requiring Precedex and when necessary Ativan. Bedside ultrasound shows large ascites. Plan for paracentesis today 12/06: Mental status slightly improved but still on Precedex due to agitated delirium. Cooperative today. Status post large volume paracentesis yesterday with 5.2 L removed 12/07: off precedex today, but still requiring haldol and ativan frequently. hgb stable. 12/08: still very agitated. still requiring frequent ativan/geodon/haldol. taking some po today. Objective Vital Signs Date Time Temp Pulse Resp B/P Pulse Ox O2 Delivery O2 Flow Rate FiO2 12/08/16 06:00 86 12/08/16 04:00 99.0 18 149/88 94 12/07/16 19:02 21 12/05/16 19:06 Nasal Cannula 2.00 Intake and Output 12/07/16 12/07/16 12/08/16 08:00 16:00 00:00 Intake Total 726 ml 823 ml 150 ml Output Total 300 ml 400 ml 800 ml Balance 426 ml 423 ml -650 ml Result Diagram: 12/08/16 0612 12/07/16 0404 Imaging Last 24 hours Impressions Chest X-Ray 12/01/16 2244 Signed Impressions: Service Date/Time: Thursday, December 01, 2016 23:04 - CONCLUSION: No acute disease. Raad Finch Jr., MD Objective Remarks GENERAL: middle-aged male who appears older than stated age. Somnolent SKIN: Warm and dry. HEAD: Normocephalic. EYES: No scleral icterus. No injection or drainage. NECK: trachea midline. No JVD. CARDIOVASCULAR: Normal rate, regular rhythm. sinus by telemetry. RESPIRATORY: Equal chest rise. not using accessory muscles GASTROINTESTINAL: Abdomen soft, non-tender, distended. MUSCULOSKELETAL: No cyanosis, or edema. EXTREMITIES: No clubbing cyanosis or edema NEURO: Opens eyes and follows commands. Moves all extremities A/P Problem List: (1) GI bleed ICD Code: K92.2 Status: Acute (2) Esophageal varices ICD Code: I85.00 Status: Acute (3) Anemia ICD Code: D64.9 Status: Acute (4) Gastritis ICD Code: K29.70 Status: Acute (5) Ascites ICD Code: R18.8 Status: Acute Assessment and Plan Assessment: 56yM with ESLD and upper GI bleed, requiring intubation to prevent aspiration of gastric blood. Now extubated, hemodynamically stable, continue to transfuse for hgb > 7 or hemodynamic instability. Now with etoh withdraw and severe agitated delirium. Neuro: Severe Agitated Delirium Alcohol Withdraw - Most likely secondary to alcohol withdrawal - start seroquel 100mg po q8h - prn ativan, CIWA - continue geodon 10mg IM q12h prn - continue clonidine patch 0.3mg - still refusing most meds. occasionally taking some. continue to encourage to take po meds. - Patient refuses to take PO Librium - Psych consulted due to aggressive behavior towards staff, agree with current management. Cardiac - Currently normotensive - Holding all antihypertensive medications due to active GI bleed (except started on Inderal for prophylaxis against variceal bleed) - clonidine 0.3mg patch for etoh withdraw, tachycardia, hypertension. Respiratory failure --Extubated 12/04/16. Tolerated well. -Continue DuoNeb every 6 hours scheduled and when necessary -Aggressive pulmonary toilet Upper GI bleed - Portal hypertension. EGD 12/03 doses portal gastropathy, due to liver cirrhosis - History of portal vein thrombosis - Hepatitis C - s/p IV fluid resuscitation. Will DC IVF - Blood transfusion to keep Hb>7, keep plt count >50,000 - Octreotide drip-DC12/04/16 - Protonix 40 IV twice a day - GI Dr. Rosen EGD 12/03/16: Portal gastropathy, gastric fundus. a single small varix in the distal esophagus which was not bleeding - Empiric abx for SBP prophylaxis - Large ascites on US, s/p paracentesis 12/05 No evidence of SBP HEME Anemia secondary to acute blood loss thrombocytopenia secondary to ESLD - Due to above - daily CBC - Transfuse to keep hemoglobin above 7, keep platelet count above 50,000 Coagulopathy - Underlying liver disease - s/p 2 units of FFP's Diabetes mellitus - Insulin sliding scale DVT GI prophylaxis - Teds SCDs - Protonix IV - No pharmacal DVT prophylaxis due to active GI bleed Problem Qualifiers (1) GI bleed: Qualified Code: K92.2 - Gastrointestinal hemorrhage, unspecified gastrointestinal hemorrhage type (2) Anemia: Qualified Code: D62 - Acute posthemorrhagic anemia Martin Stinson MD Dec 08, 2016 07:16
[2016-12-08] MEDS: SODIUM CHLORIDE 0.9% FLUSH 10 ML FLUSH SCH ×2 (09:00→20:18)
[2016-12-08] MEDS: QUEtiapine FUMARATE 100 MG TAB PO SCH ×3 (09:37→22:25)
[2016-12-08] MEDS: POTASSIUM CHLOR 20 MEQ PREMIX 100 ML IV PRN ×2 (09:37→09:38)
[2016-12-08] MEDS: PANTOPRAZOLE SOD 40 MG DELAYED RELEASE TAB PO SCH ×2 (09:38→20:17)
[2016-12-08] MEDS: THIAMINE HCL 100 MG TAB PO SCH (09:38)
[2016-12-08] MEDS: chlordiazePOXIDE 25 MG CAP PO SCH ×2 (12:00→23:12)
[2016-12-08] MEDS ORDERED: LACTATED RINGER'S 1000 ML INJ 1,000 ML IV SCH (19:45)
[2016-12-08] MEDS: MULTIVITAMIN INJ 10 ML, FOLIC ACID INJ 1 MG in SODIUM CHLORID 0.9% 500 ML INJ 500 ML IV SCH (23:12)
[2016-12-09] VITALS (14 sets, daily range): BP systolic 118–143; BP diastolic 66–76; PULSE 61–77; RESP 15–21; TEMP 98.4–98.9; O2SAT 92–98
[2016-12-09] MEDS: QUEtiapine FUMARATE 100 MG TAB PO SCH (05:06)
[2016-12-09] MEDS: METOCLOPRAMIDE HCL 10 MG/2 ML VIAL IV PUSH SCH ×3 (05:06→22:31)
[2016-12-09] MEDS: LOW DOSE INSULIN NOVOLIN REGULAR SUPPLEMENTAL SCALE SQ SCH ×4 (05:06→20:10)
[2016-12-09] MEDS: PROPRANOLOL HCL 10 MG TAB PO SCH ×3 (05:06→22:34)
[2016-12-09 05:54] LABS: HEMATOCRIT 27.8 % (39.0-51.0); MEAN CELL VOLUME 88.7 FL (80.0-100.0); MEAN CORPUSCULAR HEMOGLOBIN 28.9 PG (27.0-34.0); MEAN CORPUSCULAR HGB CONC 32.6 % (32.0-36.0); PLATELET COUNT 81 TH/MM3 (150-450); RED BLOOD COUNT 3.14 MIL/MM3 (4.50-5.90); WHITE BLOOD COUNT 2.5 TH/MM3 (4.0-11.0)
[2016-12-09 06:01] LABS: BICARBONATE 23.2 MEQ/L (21.0-32.0); POTASSIUM 3.7 MEQ/L (3.5-5.1)
[2016-12-09 06:12] LABS: REVIEW FLAG FINAL
--- NOTE | 2016-12-09 08:28 | HHI.CCPN ---
Subjective Remarks/Hospital Course Hospital Course: 56 year old male presents with a history of GI bleed that he reports began the day prior to admission. The patient reports that he's had been vomiting of blood 5 times today, has some bloody and melanotic stool 2 today. The patient has a history of GI bleeds previously related to cirrhosis and varices, last in September requiring a blood transfusion. He reports that he has a follow-up plan with his admitting coordinator for endoscopy this week. The patient became concerned when he began to feel lightheaded, dizzy, weak with standing. He was visiting and camping in [place] last months and he reports that while in [place] he did have abdominal distention and 2 L of ascitic fluid was removed from his abdomen. The patient denies any recent fevers, cough, congestion, neck pain, chest pain, shortness of breath, abdominal pain, urinary symptoms, or other neurologic symptoms. Subjective: 12/03: taken for EGD yesterday, too much blood in stomach for adequate evaluation. GI and anesthesia were concerned that he would be high risk for aspiration of blood. left intubated, taken to ICU with plan for re-scope today. given a total of 6 units prbc, 2 ffp yesterday. today, H&H stable. lactate slowly clearing, although with cirrhosis, may be more of hepatic metabolism than persistent end-organ hypoperfusion. 12/04: Hb stable at 10.4. Tolerating CPAP, but agitated off sedation. EGD 12/03/16: Portal gastropathy, gastric fundus. a single small varix in the distal esophagus which was not bleeding 12/05: Extubated yesterday tolerating respiratory ash. Severe agitation requiring Precedex and when necessary Ativan. Bedside ultrasound shows large ascites. Plan for paracentesis today 12/06: Mental status slightly improved but still on Precedex due to agitated delirium. Cooperative today. Status post large volume paracentesis yesterday with 5.2 L removed 12/07: off precedex today, but still requiring haldol and ativan frequently. hgb stable. 12/08: still very agitated. still requiring frequent ativan/geodon/haldol. taking some po today. 12/09: Agitated intermittently violent behavior. I'm told that when Seroquel or Ativan is given initially patient is somnolent but becomes while and when he wakes up. Discontinue Seroquel and CIWA protocol. Change Geodon to scheduled, use Ativan when necessary for agitation and continue clonidine patch Objective Vital Signs Date Time Temp Pulse Resp B/P Pulse Ox O2 Delivery O2 Flow Rate FiO2 12/09/16 06:00 61 12/09/16 04:00 98.9 15 138/76 97 12/08/16 21:30 Nasal Cannula 2.00 12/07/16 19:02 21 Intake and Output 12/08/16 12/08/16 12/09/16 08:00 16:00 00:00 Intake Total 532 ml 423 ml 803 ml Output Total 850 ml 150 ml 200 ml Balance -318 ml 273 ml 603 ml Result Diagram: 12/09/1652512/09/16525 Imaging Last 24 hours Impressions Chest X-Ray 12/01/162243 Signed Impressions: Service Date/Time: Thursday, December 01, 2016 23:04 - CONCLUSION: No acute disease. Raad Finch Jr., MD Objective Remarks GENERAL: middle-aged male who appears older than stated age. Somnolent SKIN: Warm and dry. HEAD: Normocephalic. EYES: No scleral icterus. No injection or drainage. NECK: trachea midline. No JVD. CARDIOVASCULAR: Normal rate, regular rhythm. sinus by telemetry. RESPIRATORY: Equal chest rise. not using accessory muscles GASTROINTESTINAL: Abdomen soft, non-tender, distended. MUSCULOSKELETAL: No cyanosis, or edema. EXTREMITIES: No clubbing cyanosis or edema NEURO: Opens eyes and follows commands. Able to tell his name. Moves all extremities. Patient is intermittently agitated and violent A/P Problem List: (1) GI bleed ICD Code: K92.2 Status: Acute (2) Esophageal varices ICD Code: I85.00 Status: Acute (3) Anemia ICD Code: D64.9 Status: Acute (4) Gastritis ICD Code: K29.70 Status: Acute (5) Ascites ICD Code: R18.8 Status: Acute Assessment and Plan Assessment: 56yM with ESLD and upper GI bleed, requiring intubation to prevent aspiration of gastric blood. Now extubated, hemodynamically stable, continue to transfuse for hgb > 7 or hemodynamic instability. Now with etoh withdraw and severe agitated delirium. Neuro: Severe Agitated Delirium Alcohol Withdrawal - Most likely secondary to alcohol withdrawal - Discontinued Seroquel. Change Geodon to scheduled 10mg IM q12h - prn ativan, discontinue CIWA - continue clonidine patch 0.3mg/24 hr - still refusing most meds. occasionally taking some. continue to encourage to take po meds, place NG tube if necessary. - Patient refuses to take PO Librium - Psych consulted due to aggressive behavior towards staff, agree with current management. Cardiac - Currently normotensive - Holding all antihypertensive medications due to active GI bleed (except started on Inderal for prophylaxis against variceal bleed) - clonidine 0.3mg patch for etoh withdraw, tachycardia, hypertension. Respiratory failure --Extubated 12/04/16. Tolerated well. -Continue DuoNeb every 6 hours scheduled and when necessary -Aggressive pulmonary toilet Upper GI bleed - Portal hypertension. EGD 12/03/16 portal gastropathy, due to liver cirrhosis - History of portal vein thrombosis - Hepatitis C - s/p IV fluid resuscitation. Will DC IVF - Blood transfusion to keep Hb>7, keep plt count >50,000 - Octreotide drip-DC12/04/16 - Protonix 40 IV twice a day - GI Dr. Rosen EGD 12/03/16: Portal gastropathy, gastric fundus. a single small varix in the distal esophagus which was not bleeding - Empiric abx for SBP prophylaxis - Large ascites on US, s/p paracentesis 12/05 No evidence of SBP HEME Anemia secondary to acute blood loss thrombocytopenia secondary to ESLD - Due to above - daily CBC - Transfuse to keep hemoglobin above 7, keep platelet count above 50,000 Coagulopathy - Underlying liver disease - s/p 2 units of FFP's Diabetes mellitus - Insulin sliding scale DVT GI prophylaxis - Teds SCDs - Protonix IV - No pharmacal DVT prophylaxis due to active GI bleed CCT 30. Continue ICU care due to severe agitation/delirium Problem Qualifiers (1) GI bleed: Qualified Code: K92.2 - Gastrointestinal hemorrhage, unspecified gastrointestinal hemorrhage type (2) Anemia: Qualified Code: D62 - Acute posthemorrhagic anemia Cory Olsen MD Dec 09, 2016 08:28
[2016-12-09] MEDS: THIAMINE HCL 100 MG TAB PO SCH (10:29)
[2016-12-09] MEDS: PANTOPRAZOLE SOD 40 MG DELAYED RELEASE TAB PO SCH ×2 (10:29→20:11)
[2016-12-09] MEDS: ZIPRASIDONE MESYLATE 20 MG VIAL IM SCH ×2 (10:29→22:32)
[2016-12-09] MEDS: SODIUM CHLORIDE 0.9% FLUSH 10 ML FLUSH SCH ×2 (10:30→20:11)
[2016-12-09] MEDS: SODIUM CHLORIDE 0.9% FLUSH 10 ML FLUSH PRN (10:30)
[2016-12-09] MEDS: chlordiazePOXIDE 25 MG CAP PO SCH ×2 (15:14→22:31)
[2016-12-09] MEDS: hydrALAZINE HCL 20 MG/ML VIAL IV PUSH PRN (18:27)
[2016-12-10] VITALS (14 sets, daily range): BP systolic 121–171; BP diastolic 60–77; PULSE 65–82; RESP 15–23; TEMP 98–99.1; O2SAT 92–97
[2016-12-10] MEDS: LORazepam 2 MG/ML VIAL IV PUSH PRN ×3 (01:48→20:44)
[2016-12-10] MEDS: SODIUM CHLORIDE 0.9% FLUSH 10 ML FLUSH PRN (01:49)
[2016-12-10] MEDS: hydrALAZINE HCL 20 MG/ML VIAL IV PUSH PRN (01:49)
[2016-12-10] MEDS: CHLORHEXIDINE GLUCONATE 2 % 1 PACK (2 CLOTHS) TOP SCH (04:00)
[2016-12-10] MEDS: METOCLOPRAMIDE HCL 10 MG/2 ML VIAL IV PUSH SCH ×3 (05:41→20:44)
[2016-12-10] MEDS: PROPRANOLOL HCL 10 MG TAB PO SCH ×3 (05:41→20:45)
[2016-12-10] MEDS: LOW DOSE INSULIN NOVOLIN REGULAR SUPPLEMENTAL SCALE SQ SCH ×4 (05:42→20:48)
[2016-12-10] MEDS: chlordiazePOXIDE 25 MG CAP PO SCH (08:00)
[2016-12-10] MEDS: PANTOPRAZOLE SOD 40 MG DELAYED RELEASE TAB PO SCH ×2 (09:02→20:45)
[2016-12-10] MEDS: THIAMINE HCL 100 MG TAB PO SCH (09:02)
[2016-12-10] MEDS: SODIUM CHLORIDE 0.9% FLUSH 10 ML FLUSH SCH ×2 (09:03→20:45)
[2016-12-10] MEDS: ZIPRASIDONE MESYLATE 20 MG VIAL IM SCH (11:00)
--- NOTE | 2016-12-10 11:05 | PD.TRANSFR ---
Transfer Summary Admission Date Dec 02, 2016 at 00:11 Admitting Diagnosis Upper GI bleed Diagnoses: (1) UGIB (upper gastrointestinal bleed) Diagnosis: Principal (2) Anemia requiring transfusions Diagnosis: Principal (3) Respiratory failure Diagnosis: Principal (4) Alcohol withdrawal delirium Diagnosis: Principal (5) Esophageal varices Diagnosis: Principal (6) Portal vein thrombosis Diagnosis: Principal (7) Ascites Diagnosis: Principal (8) Portal hypertensive gastropathy Diagnosis: Principal (9) Alcohol dependence Diagnosis: Secondary (10) Liver cirrhosis Diagnosis: Secondary Significant Findings EGD 12/03/16: Portal gastropathy, gastric fundus. a single small varix in the distal esophagus which was not bleeding 12/05: Status post large volume paracentesis yesterday with 5.2 L removed Transfer Summary/Subjective 56 year old male presents with a history of GI bleed that he reports began the day prior to admission. The patient reports that he's had been vomiting of blood 5 times today, has some bloody and melanotic stool 2 today. The patient has a history of GI bleeds previously related to cirrhosis and varices, last in September requiring a blood transfusion. 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 The patient became concerned when he began to feel lightheaded, dizzy, weak with standing. He was visiting and camping in [place] last months and he reports that while in [place] he did have abdominal distention and 2 L of ascitic fluid was removed from his abdomen. The patient denies any recent fevers, cough, congestion, neck pain, chest pain, shortness of breath, abdominal pain, urinary symptoms, or other neurologic symptoms. Subjective: 12/03: taken for EGD yesterday, too much blood in stomach for adequate evaluation. GI and anesthesia were concerned that he would be high risk for aspiration of blood. left intubated, taken to ICU with plan for re-scope today. given a total of 6 units prbc, 2 ffp yesterday. today, H&H stable. lactate slowly clearing, although with cirrhosis, may be more of hepatic metabolism than persistent end-organ hypoperfusion. 12/04: EGD 12/03/16: Portal gastropathy, gastric fundus. a single small varix in the distal esophagus which was not bleeding 12/05: Extubated yesterday tolerating 12/04 respiratory ash. Severe agitation requiring Precedex and when necessary Ativan. Bedside ultrasound shows large ascites. Performed post large volume paracentesis yesterday with 5.2 L removed 12/06: Mental status slightly improved but still on Precedex due to agitated delirium. Cooperative today. 12/07: off precedex today, but still requiring haldol and ativan frequently. hgb stable. 12/08: still very agitated. still requiring frequent ativan/geodon/haldol. taking some po today. 12/09: Agitated intermittently violent behavior. I'm told that when Seroquel or Ativan is given initially patient is somnolent but becomes while and when he wakes up. Discontinue Seroquel and CIWA protocol. Change Geodon to scheduled, use Ativan when necessary for agitation and continue clonidine patch SUBJ 12/10: Intermittently agitated, occasionally tries to climb out of bed. Not displaying any violent behavior. Receiving Geodon to every 12. Will also continue scheduled Librium and clonidine Objective Vital Signs Date Time Temp Pulse Resp B/P Pulse Ox O2 Delivery O2 Flow Rate FiO2 12/10/16 10:00 72 12/10/16 09:25 93 21 12/10/16 08:00 98.1 18 122/62 12/10/16 07:00 Room Air 12/09/16 19:00 2.00 Intake and Output 12/09/16 12/09/16 12/10/16 08:00 16:00 00:00 Intake Total 508 ml 240 ml Output Total 250 ml 875 ml 800 ml Balance 258 ml -635 ml -800 ml Result Diagram: 12/09/16 0526 12/09/16 0526 Imaging Last 24 hours Impressions Chest X-Ray 12/01/16 2244 Signed Impressions: Service Date/Time: Thursday, December 01, 2016 23:04 - CONCLUSION: No acute disease. Raad Finch Jr., MD Objective Remarks GENERAL: middle-aged male who appears older than stated age. Intermittently agitated, requiring restraints SKIN: Warm and dry. HEAD: Normocephalic. EYES: No scleral icterus. No injection or drainage. NECK: trachea midline. No JVD. CARDIOVASCULAR: Normal rate, regular rhythm. sinus by telemetry. RESPIRATORY: Equal chest rise. not using accessory muscles GASTROINTESTINAL: Abdomen soft, non-tender, distended. MUSCULOSKELETAL: No cyanosis, or edema. EXTREMITIES: No clubbing cyanosis or edema NEURO: Agitated, disoriented intermittently. Able to tell his name, but not oriented to person and place. Moves all extremities. A/P Problem List: (1) GI bleed ICD Code: K92.2 Status: Acute (2) Esophageal varices ICD Code: I85.00 Status: Acute (3) Anemia ICD Code: D64.9 Status: Acute (4) Gastritis ICD Code: K29.70 Status: Acute (5) Ascites ICD Code: R18.8 Status: Acute Assessment and Plan Assessment: 56yM with ESLD and upper GI bleed, requiring intubation to prevent aspiration of gastric blood. Now extubated, hemodynamically stable, continue to transfuse for hgb > 7 or hemodynamic instability. Now with etoh withdraw and severe agitated delirium. Neuro: Severe Agitated Delirium Alcohol Withdrawal - Most likely secondary to alcohol withdrawal - Geodon scheduled 10mg IM q12h - prn ativan, discontinue CIWA - continue clonidine patch 0.3mg/24 hr - Intermittently taking most PO meds. occasionally taking some. continue to encourage to take po meds, place NG tube if necessary. - Psych consulted due to aggressive behavior towards staff, agree with current management. Cardiac - Currently normotensive - Holding all antihypertensive medications due to active GI bleed (except started on Inderal for prophylaxis against variceal bleed) - clonidine 0.3mg patch for etoh withdraw, tachycardia, hypertension. Respiratory failure --Extubated 12/04/16. Tolerated well. -Continue DuoNeb every 6 hours scheduled and when necessary -Aggressive pulmonary toilet Upper GI bleed - Portal hypertension. EGD 12/03/16 portal gastropathy, due to liver cirrhosis - History of portal vein thrombosis - Hepatitis C - Blood transfusion to keep Hb>7, keep plt count >50,000 - Octreotide drip-DC12/04/16 - Protonix 40 IV twice a day - GI Dr. Rosen EGD 12/03/16: Portal gastropathy, gastric fundus. a single small varix in the distal esophagus which was not bleeding - Empiric abx for SBP prophylaxis - Large ascites on US, s/p paracentesis 12/05 with 5.2 L removed. No evidence of SBP HEME Anemia secondary to acute blood loss thrombocytopenia secondary to ESLD - Due to above - daily CBC - Transfuse to keep hemoglobin above 7, keep platelet count above 50,000 Coagulopathy - Underlying liver disease - s/p 2 units of FFP's Diabetes mellitus - Insulin sliding scale DVT GI prophylaxis - Teds SCDs - Protonix IV - No pharmacal DVT prophylaxis due to active GI bleed Level 3. Continue ICU care due to agitation/delirium. If improving during course of day, will transfer to Hospitalist for tomorrow Problem Qualifiers (1) GI bleed: Qualified Code: K92.2 - Gastrointestinal hemorrhage, unspecified gastrointestinal hemorrhage type (2) Anemia: Qualified Code: D62 - Acute posthemorrhagic anemia Cory Olsen MD Dec 10, 2016 11:05
[2016-12-10] MEDS ORDERED: ZIPRASIDONE MESYLATE 20 MG VIAL IM ONE (11:30)
[2016-12-10] MEDS: LACTULOSE SYRUP 20 GM/30 ML CUP PO SCH ×3 (12:47→20:45)
[2016-12-10] MEDS: BENEPROTEIN POWDER 1 PACK G-TUBE SCH ×2 (12:51→18:05)
--- NOTE | 2016-12-10 19:29 | HP.UPD ---
H&P Update Note Seen and examined in room 526 Patient is awake, verbal, confused, and restraints, Admitted with upper GI bleed Alcoholic liver cirrhosis ascites status post paracentesis of 5.2 L GI following Discussed with nurse Full report to follow Sofia Polanco MD Dec 10, 2016 19:28
--- NOTE | 2016-12-10 20:11 | PD.CONS ---
HPI Service [facility] Hospitalists Consult Requested By Dr. Olsen Reason for Consult Medical management Primary Care Physician Long Huerta DO Diagnoses: History of Present Illness This is a 56-year-old white male with significant past medical history of hypertension, liver cirrhosis, hepatitis C, Portal vein thrombosis, ascites and previous paracentesis. Patient initially presented to the emergency room on 12/02 complaining of vomiting of blood 5 times a day as well as some bloody or melanotic stools. Patient has prior history of GI bleeding secondary to cirrhosis and varices. Patient presented feeling lightheaded DC weak. In the emergency room, patient was evaluated was noted with a hemoglobin of 5.8. Patient required FFP and blood transfusion. Patient underwent EGD on 12/02 and was found with too much blood in the stomach for adequate evaluation. He was left intubated because of risk for aspiration. On 12/03/2016 another EGD was done with findings of portal gastropathy, there was a small varix in the distal esophagus which was not bleeding. Patient was extubated on 12/05/2016. He has been severely agitated and did require Precedex and PRN Ativan. A bedside ultrasound showed large amount of ascites. He underwent large volume paracentesis on 12/05/2016 and 5.2 L were removed. Patient was weaned off Precedex gtt on 12/07/2016 however he remains disoriented and at times combative. His now receiving Geodon. Ammonia level today was 75, he was started on lactulose. He's having small amount of tarry stools. Patient is examined in the ICU, he is oriented to self. He is cooperative but attempts to get out of bed. Hospitalist services are requested for medical management. Review of Systems ROS Limitations: Clinical Condition, Altered Mental Status Past Family Social History Past Medical History Hypertension Liver cirrhosis Hepatitis C Dyslipidemia Diabetes mellitus Diabetic neuropathy History of portal vein thrombosis Prior history of alcohol abuse Chronic back pain Degenerative disc disease History of ascites treated with paracentesis in the past Past Surgical History Paracentesis Reported Medications Reported Meds & Active Scripts Active Ferrous Sulfate 325 Mg Tab 325 Mg PO BID Pantoprazole (Pantoprazole Sodium) 40 Mg Tab 40 Mg PO Q12HR 30 Days Propranolol (Propranolol HCl) 20 Mg Tab 20 Mg PO DAILY 30 Days Furosemide 20 Mg Tab 20 Mg PO DAILY 30 Days Lactinex (Lactobacillus Acidophilus) 1 Chew 1 Tab CHEW DAILY Reported Amlodipine (Amlodipine Besylate) 10 Mg Tab 10 Mg PO DAILY Tums (Calcium Carbonate (Antacid)) 500 Mg Chew 500 Mg CHEW DAILY PRN Isosorbide Dinitrate 5 Mg Tab 5 Mg PO DAILY Spironolactone 25 Mg Tab 25 Mg PO DAILY Lyrica (Pregabalin) 300 Mg Cap 300 Mg PO TID Buspirone (Buspirone HCl) 10 Mg Tab 10 Mg PO TID Baclofen 20 Mg Tab 20 Mg PO TID Hydrocodone-Acetaminophen 10-325 mg Tab 1 Tab PO 5 TIMES A DAY PRN Allergies: Coded Allergies: Neosporin (Verified Allergy, Mild, 12/01/16) Polysporin (Verified Allergy, Mild, RASH, 12/01/16) Active Ordered Medications Inpatient Medications Acetaminophen (Tylenol) 650 mg Q6H PRN PO PAIN 1-10 AND/OR FEVER >101F; Start 12/02/16 at 00:30 Albumin Human (Albumin 25% Inj) 25 gm Q8H IV Last administered on 12/06/16 01: 57; Start 12/05/16 at 10:00; Stop 12/06/16 at 09:59; Status DC Albuterol/ Ipratropium (Duoneb Neb) 1 ampule Q2HR NEB PRN INH WHEEZING; Start 12/02/16 at 00:30 Ceftriaxone Sodium/Sodium Chloride (Rocephin Inj/NS Inj) 100 ml @ 200 mls/hr Q24H IV Last administered on 12/07/16 12:50; Start 12/03/16 at 12:00; Stop 07/16 at 11:59; Status DC Chlordiazepoxide (Librium) 10 mg Q8H PO ; Start 12/10/16 at 22:00; Stop at 06:01 Chlorhexidine Gluconate (Chlorhexidine 2% Cloth) 3 pack UNSCH PRN TOP HYGIENIC CARE; Start 12/02/16 at 00:30 Clonidine (Catapres-Tts 0.3 Mg Patch.7d) 1 patch Q7D T-DERMAL Last administered on 12/07/16 14:21; Start 12/07/16 at 12:00 Dexmedetomidine HCl/Sodium Chloride (Precedex Inj/NS 250 ml Inj) 250 ml @ 0 mls/ hr TITRATE IV Last administered on 12/05/16 20:04; Start 12/04/16 at 21:04; Stop 12/06/16 at 08:08; Status DC Dexmedetomidine HCl/Sodium Chloride (Precedex Inj/NS Inj) 104 ml @ 0 mls/hr TITRATE IV Last administered on 12/04/16 19:05; Start 12/04/16 at 09:45; Stop at 21:04; Status DC Dextrose (D50w (Vial) Inj) 25 ml UNSCH PRN IV PUSH HYPOGLYCEMIA - SEE COMMENTS ; Start 12/05/16 at 21:00 Flumazenil (Romazicon Inj) 0.2 mg Q1M PRN IV PUSH SEE LABEL COMMENTS; Start 12/04/16 at 23:15; Stop 12/07/16 at 10:18; Status DC Glucagon (Glucagon Inj) 1 mg UNSCH PRN OTHER HYPOGLYCEMIA-SEE COMMENTS; Start 12/05/16 at 21:00; Stop 12/07/16 at 10:18; Status DC Haloperidol Lactate (Haldol Inj) 3 mg Q4H PRN IV agitation Last administered on 12/07/16 08:33; Start 12/06/16 at 08:15; Status Hold Hydralazine HCl (Apresoline Inj) 10 mg Q30M PRN IV PUSH SBP>160, DBP>90 Last administered on 12/10/16 01:49; Start 12/04/16 at 20:45 Hydralazine HCl 20 mg 20 mg ONCE ONCE IV PUSH ; Start 12/04/16 at 20:45; Stop at 20:46; Status DC Insulin Human Regular (NovoLIN R SUPPLEMENTAL SCALE) 1 ACHS SLIDING SCALE SQ Last administered on 12/10/16 11:00; Start 12/05/16 at 21:00 Lactated Ringer's (Lr 1000 ml Inj) 1,000 ml @ 250 mls/hr Q4H IV Last administered on 12/08/16 20:17; Start 12/08/16 at 19:45; Stop 12/08/16 at 23:44 ; Status DC Lactulose (Lactulose Liq) 30 ml QID PO Last administered on 12/10/16 18:04; Start 12/10/16 at 13:00 Lorazepam (Ativan Inj) 1 mg Q2H PRN IV PUSH agitation Last administered on 12/10 15:28; Start 12/09/16 at 08:30 Lorazepam (Ativan) 2 mg Q2H PRN PO [facility] 11-14; Start 12/04/16 at 23:15; Stop 08/15 at 08:22; Status DC Magnesium Oxide 800 mg 800 mg UNSCH PRN PO For Magnesium 1.2 - 1.6 mg/dL; Start 12/02/16 at 10:30 Magnesium Sulfate 2 gm/Sodium Chloride 100 ml @ 50 mls/hr UNSCH PRN IV For Magnesium 1.2 - 1.6 mg/dL Last administered on 12/02/16 12:49; Start 12/02/16 at 10:30 Magnesium Sulfate 4 gm/Sodium Chloride 100 ml @ 50 mls/hr UNSCH PRN IV For Magnesium 0.9 - 1.1 mg/dL; Start 12/02/16 at 10:30 Metoclopramide HCl 10 mg 10 mg Q8HR IV PUSH Last administered on 12/10/16 12: 31; Start 12/02/16 at 14:45 Metoclopramide HCl (Reglan Inj) 10 mg Q6H PRN IV NAUSEA OR VOMITING; Start 12/02 at 00:30 Midazolam HCl (Versed Inj) 2 mg Q1H PRN IV SEDATION; Start 12/02/16 at 00:30; Stop 12/02/16 at 10:29; Status DC Miscellaneous Information ALL NURSING DEPARTME... UNSCH PRN .XX SEE LABEL COMMENTS; Start 12/04/16 at 14:15; Stop 12/05/16 at 14:14; Status DC Morphine Sulfate (Morphine Inj) 2 mg Q2H PRN IV PAIN SCALE 6 TO 10 Last administered on 12/04/16 22:25; Start 12/02/16 at 00:30 Multivitamins 10 ml/Folic Acid 1 mg/Sodium Chloride 510.2 ml @ 125 mls/hr Q24H IV Last administered on 12/08/16 23:12; Start 12/05/16 at 00:00; Stop 12/09/16 at 00:00; Status DC Octreotide Acetate 50 mcg 50 mcg ONCE ONCE IV PUSH Last administered on 23:22; Start 12/01/16 at 23:15; Stop 12/01/16 at 23:16; Status DC Octreotide Acetate/Sodium Chloride (SandoSTATIN INJ/ NS 500 ml Inj) 500.5 ml @ 50 mls/hr Q10H IV Last administered on 12/03/16 23:31; Start 12/01/16 at 23:15; Stop 12/04/16 at 08:57; Status DC Ondansetron HCl (Zofran Inj) 4 mg Q6H PRN IV NAUSEA OR VOMITING; Start 12/02/16 at 00:30 Ondansetron HCl 4 mg 4 mg ONCE ONCE IVP Last administered on 12/01/16 23:22; Start 12/01/16 at 22:45; Stop 12/01/16 at 22:47; Status DC Pantoprazole Sodium (Protonix Inj) 40 mg Q12H IV Last administered on 12/04/16 14:32; Start 12/02/16 at 00:30; Stop 12/04/16 at 17:41; Status DC Pantoprazole Sodium (Protonix) 40 mg Q12HR PO Last administered on 12/10/16 09 :02; Start 12/04/16 at 21:00 Pantoprazole Sodium 80 mg/ Sodium Chloride 35 ml @ 420 mls/hr BOLUS ONCE IV Last administered on 12/01/16 23:40; Start 12/01/16 at 22:45; Stop 12/01/16 at 22: 49; Status DC Potassium Phosphate (K-Phos) 2,000 mg Q4H PRN PO For Phosphorus < 2.5 mg/dL; Start 12/02/16 at 10:30 Potassium Phosphate 2000 mg 2,000 mg UNSCH PRN PO/TUBE SEE LABEL COMMENTS; Start 12/02/16 at 10:30 Potassium Phosphate 30 mmol/ Sodium Chloride 260 ml @ 42 mls/hr UNSCH PRN IV SEE LABEL COMMENTS; Start 12/02/16 at 10:30; Stop 12/02/16 at 10:33; Status DC Potassium Chloride (KCl 40 Meq Premix Inj) 100 ml @ 25 mls/hr UNSCH PRN IV For Potassium 3.3 - 3.5 mEq/L; Start 12/02/16 at 10:30 Propofol 100 ml @ 0 mls/hr TITRATE IV ; Start 12/02/16 at 19:30; Stop 12/04/16 at 08:33; Status DC Propranolol HCl 10 mg 10 mg Q8HR PO Last administered on 12/10/16 12:47; Start 12/04/16 at 14:00 Protein (Beneprotein Powder) 1 pack TID G-TUBE Last administered on 12/10/16 18:05; Start 12/10/16 at 13:00 Quetiapine Fumarate 100 mg 100 mg Q8HR PO Last administered on 12/08/16 22:25 ; Start 12/08/16 at 07:15; Stop 12/09/16 at 08:22; Status DC Sodium Chloride (NS 1000 ml Inj) 1,000 ml @ 84 mls/hr [id number] IV Last administered on 12/06/16 00:27; Start 12/02/16 at 00:28; Stop 12/06/16 at 08:08; Status DC Sodium Chloride (NS Flush) 2 ml UNSCH PRN IV FLUSH FLUSH AFTER USING IV ACCESS ; Start 12/04/16 at 23:15; Stop 12/04/16 at 23:24; Status DC Sodium Chloride 2 ml 2 ml BID IV FLUSH ; Start 12/04/16 at 23:15; Stop 12/04/16 at 23:24; Status DC Sodium Phosphate/ Sodium Chloride (Sodium Phosphate Inj/NS 250 ml Inj) 250 ml @ 42 mls/hr UNSCH PRN IV For Phosphorus < 2.5 mg/dL; Start 12/02/16 at 10:30 Thiamine HCl (Vitamin B1) 100 mg DAILY PO Last administered on 12/10/16 09:02 ; Start 12/08/16 at 09:00 Thiamine HCl/ Sodium Chloride (Thiamine Inj/NS Inj) 101 ml @ 100 mls/hr Q24H IV Last administered on 12/06/16 22:43; Start 12/05/16 at 00:00; Stop 12/07/16 at 00:00; Status DC Ziprasidone (Geodon Inj) 20 mg NOW ONCE IM Last administered on 12/10/16 11: 50; Start 12/10/16 at 11:30; Stop 12/10/16 at 11:31; Status DC Zolpidem Tartrate (Ambien) 5 mg HS PRN PO INSOMNIA; Start 12/02/16 at 00:30; Stop 12/02/16 at 10:29; Status DC Family History Unable to obtain Physical Exam Vital Signs Vital Signs Date Time Temp Pulse Resp B/P Pulse Ox O2 Delivery O2 Flow Rate FiO2 12/10/16 18:00 75 12/10/16 16:00 98.0 82 20 152/72 96 12/10/16 16:00 73 12/10/16 14:00 66 12/10/16 12:00 98.1 67 20 158/72 94 12/10/16 12:00 67 12/10/16 10:00 72 12/10/16 09:25 93 21 12/10/16 08:00 98.1 66 18 122/62 97 12/10/16 08:00 66 12/10/16 07:00 97 Room Air 12/10/16 06:00 72 12/10/16 04:00 98.6 66 15 121/60 92 12/10/16 04:00 66 12/10/16 02:00 71 12/10/16 02:00 66 12/10/16 00:00 75 12/10/16 00:00 98.0 75 22 171/74 94 12/09/16 22:00 71 12/09/16 20:00 70 12/09/16 20:00 98.9 70 21 143/68 98 Physical Exam GENERAL: This is a well-nourished, well-developed patient, restless. Confused SKIN: Skin pale HEAD: Atraumatic. Normocephalic. No temporal or scalp tenderness. EYES: Pupils equal round and reactive. Extraocular motions intact. No scleral icterus. No injection or drainage. ENT: Nose without bleeding, purulent drainage or septal hematoma. Throat without erythema, tonsillar hypertrophy or exudate. Uvula midline. Airway patent. NECK: Trachea midline. No JVD or lymphadenopathy. Supple, nontender, no meningeal signs. CARDIOVASCULAR: Regular rate and rhythm without murmurs, gallops, or rubs. RESPIRATORY: Diminished at bases GASTROINTESTINAL: Abdomen is distended, nontender, bowel sounds hypoactive 4. MUSCULOSKELETAL: Extremities without clubbing, cyanosis, or edema. No joint tenderness, effusion, or edema noted. No calf tenderness. Negative Homans sign bilaterally. NEUROLOGICAL: Able to provide name. Not following commands. Agitated, restless. Result Diagram: 12/09/16 0526 12/09/16 0526 Imaging Last Impressions Chest X-Ray 12/02/16 0000 Signed Impressions: Service Date/Time: Friday, December 02, 2016 16:06 - CONCLUSION: ET tube in good position. There is no pneumothorax. Long Bella MD FACR A/P Diagnosis: (1) Respiratory failure (2) GI bleed (3) History of alcohol abuse (4) Delirium (5) Liver cirrhosis (6) Anemia requiring transfusions (7) UGIB (upper gastrointestinal bleed) (8) Hepatic encephalopathy (9) Portal hypertensive gastropathy (10) Diabetes 1.5, managed as type 2 Assessment and Plan Thank you for this consultation, we will assume medical manage 56-year-old male with history of end-stage liver disease, hepatitis C, alcohol abuse. Admitted with upper GI bleed, hemoglobin of 5.8. Status post EGD 2 with findings of gastropathy, and single small varix in the distal esophagus which was not bleeding. -Continue to monitor H&H Blood transfusion as needed to keep hemoglobin greater than 7 Continue with Protonix 40 mg IV twice a day Gastroenterology is following patient, their input is appreciated Antibiotics for SBP prophylaxis completed -status post large volume paracentesis, 5.2 L removed on 12/05/2016, stable Anemia secondary to blood loss Thrombocytopenia, platelets 81,000 Coagulopathy Monitor platelets, monitor H&H Monitor for bleeding -Monitor INR, has received FFP Hepatic encephalopathy, agitated, alcohol withdrawal. Ammonia level 75 Continue with neuro checks Continue with Geodon 10 mg IM every 12 Continue with as needed Ativan Continue with clonidine patch -Keep nothing by mouth for now Has NG tube in place, on tube feeding -Continue Thiamine and MVI -Psychiatry has evaluated patient Respiratory failure, now resolved. Monitor sats DuoNeb's as needed Patient to remain in the intensive care unit for closer monitoring SCDs for DVT prophylaxis, no pharmacological DVT due to active GI bleeding Protonix for GI prophylaxis Plan of care has been discussed with the patient, attending and registered nurse. Further management of the patient will be dependent on the hospital course This patient was seen by myself and Dr. Polanco, this consultation is written on his behalf. Problem Qualifiers (1) Respiratory failure: Qualified Code: J96.00 - Acute respiratory failure, unspecified whether with hypoxia or hypercapnia (2) GI bleed: Qualified Code: K92.2 - Gastrointestinal hemorrhage, unspecified gastrointestinal hemorrhage type (3) Liver cirrhosis: Joanna Herrera [facility] Dec 10, 2016 20:11
[2016-12-10] MEDS: ZIPRASIDONE MESYLATE 20 MG VIAL IM PRN (20:44)
[2016-12-11] VITALS (14 sets, daily range): BP systolic 103–159; BP diastolic 55–79; PULSE 57–73; RESP 12–14; TEMP 98.1–99; O2SAT 95–100
[2016-12-11] MEDS: LORazepam 2 MG/ML VIAL IV PUSH PRN (03:02)
[2016-12-11] MEDS: CHLORHEXIDINE GLUCONATE 2 % 1 PACK (2 CLOTHS) TOP SCH (03:02)
[2016-12-11] MEDS: ZIPRASIDONE MESYLATE 20 MG VIAL IM PRN ×2 (03:31→21:05)
[2016-12-11] MEDS: PROPRANOLOL HCL 10 MG TAB PO SCH ×3 (05:08→19:35)
[2016-12-11] MEDS: METOCLOPRAMIDE HCL 10 MG/2 ML VIAL IV PUSH SCH ×3 (05:08→19:36)
[2016-12-11] MEDS: LOW DOSE INSULIN NOVOLIN REGULAR SUPPLEMENTAL SCALE SQ SCH ×4 (05:11→19:41)
[2016-12-11 06:31] LABS: AUTOMATED NEUTROPHIL # 2.3 TH/MM3 (1.8-7.7); BASOPHIL % 1.1 % (0.0-2.0); EOSINOPHIL # 0.1 TH/MM3 (0-0.4); HEMATOCRIT 30.9 % (39.0-51.0); HEMO FLAGS DIFF FINAL; LYMPH % 17.3 % (9.0-44.0); LYMPHOCYTE # 0.6 TH/MM3 (1.0-4.8); MEAN CELL VOLUME 88.4 FL (80.0-100.0); MEAN CORPUSCULAR HEMOGLOBIN 29.5 PG (27.0-34.0); MEAN CORPUSCULAR HGB CONC 33.4 % (32.0-36.0); MONO % 9.8 % (0.0-8.0); NEUT % 69.8 % (16.0-70.0); PLATELET COUNT 112 TH/MM3 (150-450); RED CELL DISTRIBUTION WIDTH 18.2 % (11.6-17.2); WHITE BLOOD COUNT 3.3 TH/MM3 (4.0-11.0)
[2016-12-11 06:48] LABS: AST (GOT) 50 U/L (15-37); BLOOD UREA NITROGEN 10 MG/DL (7-18); CHLORIDE 108 MEQ/L (98-107); GLOMERULAR FILTRATION RATE 147 ML/MIN (>89); MAGNESIUM 1.7 MG/DL (1.5-2.5); POTASSIUM 3.6 MEQ/L (3.5-5.1); SODIUM (NA) 141 MEQ/L (136-145)
[2016-12-11 06:52] LABS: ALKALINE PHOSPHATASE 77 U/L (45-117); ALT (GPT) 34 U/L (12-78); ANION GAP 8 MEQ/L (5-15); TOTAL BILIRUBIN ADULT 1.4 MG/DL (0.2-1.0)
[2016-12-11] MEDS: THIAMINE HCL 100 MG TAB PO SCH (09:00)
[2016-12-11] MEDS: LACTULOSE SYRUP 20 GM/30 ML CUP PO SCH ×4 (09:33→19:35)
[2016-12-11] MEDS: PANTOPRAZOLE SOD 40 MG DELAYED RELEASE TAB PO SCH (09:33)
[2016-12-11] MEDS: BENEPROTEIN POWDER 1 PACK G-TUBE SCH ×3 (10:00→18:00)
[2016-12-11] MEDS: SODIUM CHLORIDE 0.9% FLUSH 10 ML FLUSH SCH ×2 (11:19→19:35)
--- NOTE | 2016-12-11 11:35 | HHI.PR ---
Subjective Remarks Lethargic, was agitated last night, require when necessary medications Having liquid stools, ammonia coming down Tolerating tube feedings well Hemodynamically stable Unable to obtain review of systems Objective Objective Results - Vital Signs Date Time Temp Pulse Resp B/P Pulse Ox O2 Delivery O2 Flow Rate FiO2 12/11/16 10:00 57 12/11/16 09:18 98 21 12/11/16 08:00 98.5 58 12 149/70 99 12/11/16 08:00 58 12/11/16 07:00 100 Nasal Cannula 2.00 12/11/16 06:00 64 12/11/16 04:00 98.9 68 14 159/79 97 12/11/16 04:00 68 12/11/16 02:00 60 12/11/16 00:00 98.5 60 14 103/55 98 12/11/16 00:00 60 12/10/16 23:00 99 Nasal Cannula 2.00 12/10/16 22:00 65 12/10/16 20:00 71 12/10/16 20:00 99.1 71 23 155/77 95 12/10/16 19:10 93 21 12/10/16 19:00 94 Nasal Cannula 2.00 12/10/16 18:00 75 12/10/16 16:00 98.0 82 20 152/72 96 12/10/16 16:00 73 12/10/16 14:00 66 12/10/16 12:00 98.1 67 20 158/72 94 12/10/16 12:00 67 I/O 12/10/16 12/10/16 12/10/16 12/11/16 12/11/16 12/11/16 07:00 15:00 23:00 07:00 15:00 23:00 Intake Total 150 ml 240 ml 64 ml Output Total 1150 ml 850 ml 600 ml 525 ml Balance -1000 ml -610 ml -536 ml -525 ml Intake Oral 240 ml IV Total 150 ml Tube Feeding 64 ml Output Urine Total 1150 ml 850 ml 600 ml 525 ml # Bowel Movements 1 1 Result Diagram: 12/11/16 0600 12/11/16 0600 Imaging Last Impressions Chest X-Ray 12/02/16 0000 Signed Impressions: Service Date/Time: Friday, December 02, 2016 16:06 - CONCLUSION: ET tube in good position. There is no pneumothorax. Long Bella MD FACR Other Results Laboratory Tests Test 12/11/16 06:00 White Blood Count 3.3 Red Blood Count 3.50 Hemoglobin 10.3 Hematocrit 30.9 Mean Corpuscular Volume 88.4 Mean Corpuscular Hemoglobin 29.5 Mean Corpuscular Hemoglobin 33.4 Concent Red Cell Distribution Width 18.2 Platelet Count 112 Mean Platelet Volume 9.6 Neutrophils (%) (Auto) 69.8 Lymphocytes (%) (Auto) 17.3 Monocytes (%) (Auto) 9.8 Eosinophils (%) (Auto) 2.0 Basophils (%) (Auto) 1.1 Neutrophils # (Auto) 2.3 Lymphocytes # (Auto) 0.6 Monocytes # (Auto) 0.3 Eosinophils # (Auto) 0.1 Basophils # (Auto) 0.0 CBC Comment DIFF FINAL Differential Comment Sodium Level 141 Potassium Level 3.6 Chloride Level 108 Carbon Dioxide Level 25.0 Anion Gap 8 Blood Urea Nitrogen 10 Creatinine 0.57 Estimat Glomerular Filtration 147 Rate Random Glucose 157 Calcium Level 8.4 Magnesium Level 1.7 Total Bilirubin 1.4 Aspartate Amino Transf 50 (AST/SGOT) Alanine Aminotransferase 34 (ALT/SGPT) Alkaline Phosphatase 77 Ammonia 41 Total Protein 6.5 Albumin 2.5 ROS General: Other (unable to obtain review of systems) Physical Exam Physical Exam GENERAL: This is a well-nourished, well-developed patient, restless. Confused SKIN: Skin pale HEAD: Atraumatic. Normocephalic. No temporal or scalp tenderness. EYES: Pupils equal round and reactive. Extraocular motions intact. No scleral icterus. No injection or drainage. ENT: Nose without bleeding, purulent drainage or septal hematoma. Throat without erythema, tonsillar hypertrophy or exudate. Uvula midline. Airway patent. NECK: Trachea midline. No JVD or lymphadenopathy. Supple, nontender, no meningeal signs. CARDIOVASCULAR: Regular rate and rhythm without murmurs, gallops, or rubs. RESPIRATORY: Diminished at bases GASTROINTESTINAL: Abdomen is distended, nontender, bowel sounds hypoactive 4. MUSCULOSKELETAL: Extremities without clubbing, cyanosis, or edema. No joint tenderness, effusion, or edema noted. No calf tenderness. Negative Homans sign bilaterally. NEUROLOGICAL: Lethargic, awakes to voice. Not following commands. Urinary Catheter: Yes Assessment to: Continue Rosado insert reason: Measure Accurate Output Vascular Central Line Catheter: No A/P Diagnosis: (1) Respiratory failure (2) GI bleed (3) History of alcohol abuse (4) Delirium (5) Liver cirrhosis (6) Anemia requiring transfusions (7) UGIB (upper gastrointestinal bleed) (8) Hepatic encephalopathy (9) Portal hypertensive gastropathy (10) Diabetes 1.5, managed as type 2 Assessment and Plan 56-year-old male with history of end-stage liver disease, hepatitis C, alcohol abuse. Admitted with upper GI bleed, hemoglobin of 5.8. Status post EGD 2 with findings of gastropathy, and single small varix in the distal esophagus which was not bleeding. -Continue to monitor H&H, stable Blood transfusion as needed to keep hemoglobin greater than 7 Continue with Protonix 40 mg IV twice a day Gastroenterology is following patient, their input is appreciated Antibiotics for SBP prophylaxis completed -status post large volume paracentesis, 5.2 L removed on 12/05/2016, stable Anemia secondary to blood loss Thrombocytopenia, platelets 81,000 Coagulopathy CBC stable, platelets improving. -No active bleeding Hepatic encephalopathy, agitated, alcohol withdrawal. Ammonia level 75 initially, now down to 41. Agitated overnight, require when necessary medications. Today lethargic. Remains on restraints. Continue with neuro checks Continue with Geodon 10 mg IM every 12 Continue with as needed Ativan Continue with clonidine patch -Keep nothing by mouth for now Has NG tube in place, on tube feeding -Continue Thiamine and MVI -Psychiatry has evaluated patient Respiratory failure, now resolved. Monitor sats DuoNeb's as needed SCDs for DVT prophylaxis, no pharmacological DVT due to active GI bleeding Protonix for GI prophylaxis Labs reviewed, platelets improving. Remains encephalopathic, continue to monitor closely. D/W RN D/W Dr. Polanco This patient was seen by myself and Dr. Polanco, this note is written on his behalf. Problem Qualifiers (1) Respiratory failure: Qualified Code: J96.00 - Acute respiratory failure, unspecified whether with hypoxia or hypercapnia (2) GI bleed: Qualified Code: K92.2 - Gastrointestinal hemorrhage, unspecified gastrointestinal hemorrhage type (3) Liver cirrhosis: Joanna Herrera Dec 11, 2016 11:35
[2016-12-11] MEDS: PANTOPRAZOLE SODIUM 40 MG VIAL IV PUSH SCH ×2 (12:00→22:53)
[2016-12-11] MEDS: SODIUM CHLOR 0.9% 1000 ML INJ 1,000 ML IV SCH (21:33)
[2016-12-12] VITALS (13 sets, daily range): BP systolic 117–149; BP diastolic 61–77; PULSE 58–70; RESP 12–20; TEMP 97.9–99.3; O2SAT 95–97
[2016-12-12] MEDS: CHLORHEXIDINE GLUCONATE 2 % 1 PACK (2 CLOTHS) TOP SCH (02:56)
[2016-12-12] MEDS: METOCLOPRAMIDE HCL 10 MG/2 ML VIAL IV PUSH SCH ×3 (04:25→19:37)
[2016-12-12] MEDS: PROPRANOLOL HCL 10 MG TAB PO SCH ×3 (04:25→19:37)
[2016-12-12] MEDS: LOW DOSE INSULIN NOVOLIN REGULAR SUPPLEMENTAL SCALE SQ SCH ×4 (04:28→19:44)
[2016-12-12] MEDS: LACTULOSE SYRUP 20 GM/30 ML CUP PO SCH ×4 (08:46→19:37)
[2016-12-12] MEDS: BENEPROTEIN POWDER 1 PACK G-TUBE SCH ×3 (08:46→18:00)
[2016-12-12] MEDS: THIAMINE HCL 100 MG TAB PO SCH (08:46)
[2016-12-12] MEDS: SODIUM CHLORIDE 0.9% FLUSH 10 ML FLUSH SCH ×2 (08:47→19:36)
[2016-12-12] MEDS: PANTOPRAZOLE SODIUM 40 MG VIAL IV PUSH SCH (12:00)
[2016-12-12] MEDS: LORazepam 2 MG/ML VIAL IV PUSH PRN ×3 (14:47→22:49)
--- NOTE | 2016-12-12 17:33 | HHI.PR ---
Subjective Interval History Sleepy, arousable, no specific complaints, mildly confused, Review of Systems Constitutional Constitutional Remarks Unreliable, patient wants to have the wrist restraints discontinued, confused, otherwise 10 systems are reviewed and otherwise negative Vitals/Results Intake & Output 12/11/16 12/11/16 12/12/16 15:00 23:00 07:00 Intake Total 675 ml 173 ml 667 ml Output Total 475 ml 125 ml 150 ml Balance 200 ml 48 ml 517 ml IV Total 50 ml 35 ml 493 ml Tube Feeding 65 ml 138 ml 174 ml Tube Irrigant 200 ml Other 360 ml Output Urine Total 475 ml 125 ml 150 ml # Bowel Movements 1 1 Vital Signs Vital Signs Date Time Temp Pulse Resp B/P Pulse Ox O2 Delivery O2 Flow Rate FiO2 12/12/16 16:00 61 12/12/16 14:00 61 12/12/16 12:00 61 12/12/16 12:00 98.3 61 16 149/77 95 12/12/16 10:00 61 12/12/16 08:02 95 12/12/16 08:00 98.1 61 13 125/62 95 12/12/16 08:00 61 12/12/16 07:00 100 Nasal Cannula 2.00 12/12/16 06:00 62 12/12/16 04:00 97.9 65 15 138/65 95 12/12/16 04:00 65 12/12/16 02:00 58 12/12/16 00:00 58 12/12/16 00:00 98.4 58 12 117/61 97 12/11/16 22:00 73 12/11/16 20:00 66 12/11/16 20:00 98.1 66 13 143/70 95 12/11/16 19:59 95 21 12/11/16 19:00 Room Air 12/11/16 18:00 59 CBC/BMP: 12/11/16 0600 12/11/16 0600 Physical Exam General General Appearance: Well Developed, Comfortable Eyes Eye Exam: Pupils Reactive Ears & Nose Ears & Nose Exam: Nasal Mucosa [place] Ears & Nose Remarks Nasogastric tube in place Neck Neck Exam: Trachea Midline Pulmonary Resp Exam: Crackles Cardiology CV Exam: Normal Sinus Rhythm, Good Perfusion Gastrointestinal/Abdomen GI Exam: Non-Tender, Bowel Sounds Present, Distended Musculoskeletal MS Exam: Normal Tone Integumentary Skin Exam: Warm, Dry Extremeties Extremities Exam: No Edema Neurologic Neuro Exam: Speech Clear, Stuporous VTE Prophylaxis VTE Prophylaxis Device: SCDs VTE Remarks Cannot use chemical DVT prophylaxis secondary to recent GI bleed Assessment/Plan Problem List: (1) UGIB (upper gastrointestinal bleed) (2) Anemia requiring transfusions (3) Respiratory failure (4) Alcohol withdrawal delirium (5) Esophageal varices (6) Portal vein thrombosis (7) Ascites (8) Portal hypertensive gastropathy (9) Alcohol dependence (10) Liver cirrhosis Assessment/Plan Diagnosis: Delirium tremens, under reasonable control Respiratory failure on admission, resolved GI bleed on admission, status post transfusion, bleeding resolved Status post EGD alcohol abuse Hepatitis C Liver cirrhosis Anemia requiring transfusions Thrombocytopenia Leukopenia Hepatic encephalopathy Portal hypertensive gastropathy Diabetes , managed as type 2 Plan Benzodiazepine Nasogastric feeding Restraints Proton pump inhibitors Geodon DVT prophylaxis with sequential Continue Protonix Continue swallow assessment and evaluation Discussed with patient Discussed with nurse Problem Qualifiers (1) Respiratory failure: Qualified Code: J96.00 - Acute respiratory failure, unspecified whether with hypoxia or hypercapnia (2) Liver cirrhosis: Sofia Polanco MD Dec 12, 2016 17:33
[2016-12-12] MEDS: SODIUM CHLOR 0.9% 1000 ML INJ 1,000 ML IV SCH (19:36)
[2016-12-12] MEDS: ZIPRASIDONE MESYLATE 20 MG VIAL IM PRN (19:38)
[2016-12-13] VITALS (14 sets, daily range): BP systolic 104–161; BP diastolic 56–81; PULSE 70–99; RESP 14–20; TEMP 98.4–99.3; O2SAT 92–97
[2016-12-13] MEDS: ZIPRASIDONE MESYLATE 20 MG VIAL IM PRN (03:06)
[2016-12-13] MEDS: CHLORHEXIDINE GLUCONATE 2 % 1 PACK (2 CLOTHS) TOP SCH (04:00)
[2016-12-13] MEDS: PROPRANOLOL HCL 10 MG TAB PO SCH ×3 (04:39→21:10)
[2016-12-13] MEDS: METOCLOPRAMIDE HCL 10 MG/2 ML VIAL IV PUSH SCH ×4 (04:39→20:42)
[2016-12-13] MEDS: LOW DOSE INSULIN NOVOLIN REGULAR SUPPLEMENTAL SCALE SQ SCH ×4 (04:44→20:42)
[2016-12-13] MEDS: LORazepam 2 MG/ML VIAL IV PUSH PRN ×3 (06:29→15:35)
[2016-12-13] MEDS: MORPHINE SULFATE 4 MG/ML INJ IV PRN ×2 (08:47→15:36)
[2016-12-13] MEDS: LACTULOSE SYRUP 20 GM/30 ML CUP PO SCH ×4 (08:48→21:10)
[2016-12-13] MEDS: THIAMINE HCL 100 MG TAB PO SCH (08:48)
[2016-12-13] MEDS: SODIUM CHLORIDE 0.9% FLUSH 10 ML FLUSH SCH ×2 (08:48→20:42)
[2016-12-13] MEDS: BENEPROTEIN POWDER 1 PACK G-TUBE SCH ×3 (08:48→18:00)
[2016-12-13] MEDS: PANTOPRAZOLE SODIUM 40 MG VIAL IV PUSH SCH ×2 (12:00)
[2016-12-13] MEDS: SODIUM CHLOR 0.9% 1000 ML INJ 1,000 ML IV SCH (13:30)
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
[2016-12-14] VITALS (10 sets, daily range): BP systolic 107–130; BP diastolic 57–68; PULSE 63–72; RESP 15–20; TEMP 98.9–99.5; O2SAT 93–97
[2016-12-14] MEDS: PANTOPRAZOLE SODIUM 40 MG VIAL IV PUSH SCH ×3 (01:06→23:49)
[2016-12-14] MEDS: CHLORHEXIDINE GLUCONATE 2 % 1 PACK (2 CLOTHS) TOP SCH (04:00)
[2016-12-14] MEDS: METOCLOPRAMIDE HCL 10 MG/2 ML VIAL IV PUSH SCH ×3 (05:20→22:01)
[2016-12-14] MEDS: PROPRANOLOL HCL 10 MG TAB PO SCH ×3 (05:20→22:00)
[2016-12-14] MEDS: LOW DOSE INSULIN NOVOLIN REGULAR SUPPLEMENTAL SCALE SQ SCH ×3 (05:20→22:01)
[2016-12-14 06:00] LABS: AUTOMATED NEUTROPHIL # 6.1 TH/MM3 (1.8-7.7); BASOPHIL % 0.5 % (0.0-2.0); EOSINOPHIL # 0.1 TH/MM3 (0-0.4); EOSINOPHIL % 1.1 % (0.0-4.0); HEMATOCRIT 28.8 % (39.0-51.0); HEMO FLAGS DIFF FINAL; LYMPH % 12.8 % (9.0-44.0); MEAN CORPUSCULAR HEMOGLOBIN 29.8 PG (27.0-34.0); MEAN CORPUSCULAR HGB CONC 33.5 % (32.0-36.0); MONO % 7.1 % (0.0-8.0); NEUT % 78.5 % (16.0-70.0); PLATELET COUNT 129 TH/MM3 (150-450); RED BLOOD COUNT 3.24 MIL/MM3 (4.50-5.90); RED CELL DISTRIBUTION WIDTH 18.2 % (11.6-17.2); WHITE BLOOD COUNT 7.8 TH/MM3 (4.0-11.0)
[2016-12-14 06:17] LABS: BICARBONATE 26.7 MEQ/L (21.0-32.0); MAGNESIUM 1.6 MG/DL (1.5-2.5); POTASSIUM 3.9 MEQ/L (3.5-5.1)
--- NOTE | 2016-12-14 09:33 | HHI.PR ---
Subjective Remarks awake, oriented to self calm at this time restraints in place was combative yesterday NGT is out unable to obtain ROS Objective Objective Results - Vital Signs Date Time Temp Pulse Resp B/P Pulse Ox O2 Delivery O2 Flow Rate FiO2 12/14/16 06:00 65 12/14/16 04:00 98.9 63 15 112/58 96 12/14/16 04:00 63 12/14/16 02:00 69 12/14/16 00:00 71 12/14/16 00:00 99.2 71 16 107/57 93 12/13/16 22:00 71 12/13/16 20:00 98.8 72 14 104/56 92 12/13/16 20:00 72 12/13/16 19:21 93 Nasal Cannula 5.00 12/13/16 19:00 92 Nasal Cannula 5.00 12/13/16 18:00 75 12/13/16 16:00 75 12/13/16 16:00 98.6 72 20 120/68 97 12/13/16 14:00 75 12/13/16 12:00 70 12/13/16 12:00 98.8 70 20 123/68 95 12/13/16 10:00 70 I/O 12/13/16 12/13/16 12/13/16 12/14/16 12/14/16 12/14/16 07:00 15:00 23:00 07:00 15:00 23:00 Intake Total 781 ml 995 ml 270 ml 450 ml Output Total 175 ml 275 ml 300 ml 250 ml Balance 606 ml 720 ml -30 ml 200 ml Intake Oral 100 ml IV Total 400 ml 420 ml 270 ml 450 ml Tube Feeding 381 ml 325 ml Other 150 ml Output Urine Total 175 ml 275 ml 300 ml 250 ml # Bowel Movements 3 Result Diagram: 12/14/16 0516 12/14/16 0516 Imaging Last Impressions Chest X-Ray 12/02/16 0000 Signed Impressions: Service Date/Time: Friday, December 02, 2016 16:06 - CONCLUSION: ET tube in good position. There is no pneumothorax. Long Bella MD FACR Other Results Laboratory Tests Test 12/14/16 05:16 White Blood Count 7.8 Red Blood Count 3.24 Hemoglobin 9.7 Hematocrit 28.8 Mean Corpuscular Volume 89.0 Mean Corpuscular Hemoglobin 29.8 Mean Corpuscular Hemoglobin 33.5 Concent Red Cell Distribution Width 18.2 Platelet Count 129 Mean Platelet Volume 9.7 Neutrophils (%) (Auto) 78.5 Lymphocytes (%) (Auto) 12.8 Monocytes (%) (Auto) 7.1 Eosinophils (%) (Auto) 1.1 Basophils (%) (Auto) 0.5 Neutrophils # (Auto) 6.1 Lymphocytes # (Auto) 1.0 Monocytes # (Auto) 0.6 Eosinophils # (Auto) 0.1 Basophils # (Auto) 0.0 CBC Comment DIFF FINAL Differential Comment Sodium Level 142 Potassium Level 3.9 Chloride Level 108 Carbon Dioxide Level 26.7 Anion Gap 7 Blood Urea Nitrogen 15 Creatinine 0.71 Estimat Glomerular Filtration 114 Rate Random Glucose 147 Calcium Level 8.0 Phosphorus Level 3.0 Magnesium Level 1.6 ROS General: Other (unable to obtain ROS ) Physical Exam Physical Exam GENERAL: This is a well-nourished, well-developed patient, restless. Slightly groggy SKIN: Skin pale HEAD: Atraumatic. Normocephalic. No temporal or scalp tenderness. EYES: Pupils equal round and reactive. Extraocular motions intact. No scleral icterus. No injection or drainage. ENT: Nose without bleeding, purulent drainage or septal hematoma. Throat without erythema, tonsillar hypertrophy or exudate. Uvula midline. Airway patent. NECK: Trachea midline. No JVD or lymphadenopathy. Supple, nontender, no meningeal signs. CARDIOVASCULAR: Regular rate and rhythm without murmurs, gallops, or rubs. RESPIRATORY: Diminished at bases GASTROINTESTINAL: Abdomen is distended, nontender, bowel sounds hypoactive 4. MUSCULOSKELETAL: Extremities without clubbing, cyanosis, or edema. No joint tenderness, effusion, or edema noted. No calf tenderness. Negative Homans sign bilaterally. NEUROLOGICAL: awakes to voice, oriented to self, calm at this time Urinary Catheter: Yes Assessment to: Continue Rosado insert reason: Obstruction/Retention Vascular Central Line Catheter: No A/P Diagnosis: (1) Respiratory failure (2) GI bleed (3) History of alcohol abuse (4) Delirium (5) Liver cirrhosis (6) Anemia requiring transfusions (7) UGIB (upper gastrointestinal bleed) (8) Hepatic encephalopathy (9) Portal hypertensive gastropathy (10) Diabetes 1.5, managed as type 2 Assessment and Plan 56-year-old male with history of end-stage liver disease, hepatitis C, alcohol abuse. Admitted with upper GI bleed, hemoglobin of 5.8. Status post EGD 2 with findings of gastropathy, and single small varix in the distal esophagus which was not bleeding. -HH stable -GIn signed off -PPI Antibiotics for SBP prophylaxis completed -status post large volume paracentesis, 5.2 L removed on 12/05/2016, stable Anemia secondary to blood loss Thrombocytopenia, platelets 129,00 Coagulopathy -stable CBC Hepatic encephalopathy, agitated, alcohol withdrawal. Ammonia level 75 initially, now down to 41. still with periods of agitation Continue with neuro checks Continue with Geodon 10 mg IM every 12 Continue with as needed Ativan Continue with clonidine patch -removed NG, swallow eval daily -Continue Thiamine and MVI -Psychiatry has evaluated patient Respiratory failure, now resolved. Monitor sats DuoNeb's as needed SCDs for DVT prophylaxis, no pharmacological DVT due to active GI bleeding Protonix for GI prophylaxis Labs reviewed stable remains encephalopathic, occ. agitated. D/W RN D/W Dr. Polanco This patient was seen by myself and Dr. Polanco, this note is written on his behalf. Problem Qualifiers (1) Respiratory failure: Qualified Code: J96.00 - Acute respiratory failure, unspecified whether with hypoxia or hypercapnia (2) GI bleed: Qualified Code: K92.2 - Gastrointestinal hemorrhage, unspecified gastrointestinal hemorrhage type (3) Liver cirrhosis: Joanna Herrera Dec 14, 2016 09:33
[2016-12-14] MEDS: THIAMINE HCL 100 MG TAB PO SCH (09:34)
[2016-12-14] MEDS: LACTULOSE SYRUP 20 GM/30 ML CUP PO SCH ×3 (09:35→22:01)
[2016-12-14] MEDS: MAGNESIUM SULFATE INJ 2 GM in SODIUM CHLORIDE 0.9% INJ 96 ML IV PRN (09:35)
[2016-12-14] MEDS: SODIUM CHLORIDE 0.9% FLUSH 10 ML FLUSH SCH ×2 (09:36→22:01)
[2016-12-14] MEDS: LORazepam 2 MG/ML VIAL IV PUSH PRN (09:37)
[2016-12-14] MEDS: SODIUM CHLORIDE 0.9% FLUSH 10 ML FLUSH PRN (09:38)
[2016-12-14] MEDS: SODIUM CHLOR 0.9% 1000 ML INJ 1,000 ML IV SCH (13:59)
[2016-12-14] MEDS ORDERED: PILL SPLITTER OTHER PRN (16:15)
[2016-12-14] MEDS: cloNIDine HCL 0.3 MG/24 HR PATCH T-DERMAL SCH (17:37)
[2016-12-14] MEDS ORDERED: ZIPRASIDONE MESYLATE 20 MG VIAL IM PRN (19:00)
[2016-12-15] MEDS: SODIUM CHLOR 0.9% 1000 ML INJ 1,000 ML IV SCH (00:20)
[2016-12-15 01:17] VITALS: BP 140/71; PULSE 77; RESP 18; TEMP 98.5; O2SAT 96
[2016-12-15] MEDS: CHLORHEXIDINE GLUCONATE 2 % 1 PACK (2 CLOTHS) TOP SCH (04:00)
[2016-12-15] MEDS: LOW DOSE INSULIN NOVOLIN REGULAR SUPPLEMENTAL SCALE SQ SCH ×4 (05:57→21:00)
[2016-12-15] MEDS: METOCLOPRAMIDE HCL 10 MG/2 ML VIAL IV PUSH SCH ×3 (05:58→22:34)
[2016-12-15] MEDS: PROPRANOLOL HCL 10 MG TAB PO SCH ×3 (05:58→22:35)
[2016-12-15 06:20] VITALS: BP 170/80; PULSE 70; RESP 17; TEMP 96.7; O2SAT 98
[2016-12-15 07:55] VITALS: BP 155/77; PULSE 60; RESP 18; TEMP 96.9; O2SAT 95
[2016-12-15] MEDS: LACTULOSE SYRUP 20 GM/30 ML CUP PO SCH ×4 (09:27→22:34)
[2016-12-15] MEDS: THIAMINE HCL 100 MG TAB PO SCH (09:27)
[2016-12-15] MEDS: SODIUM CHLORIDE 0.9% FLUSH 10 ML FLUSH SCH ×2 (09:33→22:36)
[2016-12-15] MEDS: BENEPROTEIN POWDER 1 PACK G-TUBE SCH ×4 (09:34→17:38)
[2016-12-15 11:40] VITALS: BP 152/72; PULSE 67; RESP 19; TEMP 98.4; O2SAT 96
--- NOTE | 2016-12-15 11:57 | HHI.PR ---
Subjective Remarks awake speech slow, clear no acute agitation noted, resting in bed temp, 99.5 Objective Objective Results - Vital Signs Date Time Temp Pulse Resp B/P Pulse Ox O2 Delivery O2 Flow Rate FiO2 12/15/16 08:20 Room Air 12/15/16 07:55 96.9 60 18 155/77 95 12/15/16 06:20 96.7 70 17 170/80 98 12/15/16 01:17 98.5 77 18 140/71 96 12/14/16 23:45 99.2 71 20 120/68 97 12/14/16 23:45 71 12/14/16 22:00 67 12/14/16 20:00 71 12/14/16 20:00 99.5 69 16 130/62 97 12/14/16 19:00 97 Nasal Cannula 3.00 12/14/16 12:00 72 I/O 12/14/16 12/14/16 12/14/16 12/15/16 12/15/16 12/15/16 07:00 15:00 23:00 07:00 15:00 23:00 Intake Total 450 ml 1545 ml Output Total 250 ml 400 ml Balance 200 ml 1145 ml Intake Oral 720 ml IV Total 450 ml 825 ml Output Urine Total 250 ml 400 ml # Voids 2 # Bowel Movements 0 2 Result Diagram: 12/14/16 0516 12/14/16 0516 Other Results Last Impressions Chest X-Ray 12/02/16 0000 Signed Impressions: Service Date/Time: Friday, December 02, 2016 16:06 - CONCLUSION: ET tube in good position. There is no pneumothorax. Long Bella MD FACR Medications and IVs Active Medications Chlordiazepoxide (Librium) 5 mg Q8H PO Last administered on 12/15/16t 05:58; Admin Dose 5 MG; Start 12/14/16 at 22:00 Miscellaneous (Pill Splitter) 1 ea UNSCH PRN OTHER; Start 12/14/16 at 16:15 Ziprasidone (Geodon Inj) 5 mg Q8H PRN IM; Start 12/14/16 at 19:00 ROS General: Fatigue, Weakness, Other (10 point ROS done. 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 Facial features appear symmetric. iteric scelera OROPHARYNGEAL: Oropharynx without erythema or edema. NECK: Supple. No nuchal rigidity or lymphadenopathy. Trachea midline without deviation. CARDIAC: Regular rhythm, regular rate, S1 and S2 are heard. Murmur none; no gallops or rubs. LUNGS: low volumes to auscultation bilaterally. no wheeze, no rhonchi No use of accessory muscles on inspiration or expiration. ABDOMEN: taut, , nontender, mild distention Bowel sounds are heard in all four quadrants. , lindquist with hematuria, EXTREMITIES: no edema. Pulses equal bilateral NEUROLOGICAL: Patient mood and affect appropriate. No anxiety SKIN:Warm and moist, Objective Remarks I havent pulled at catheter that I know of. A/P Assessment and Plan 1) Respiratory failure (2) GI bleed (3) History of alcohol abuse (4) Delirium (5) Liver cirrhosis (6) Anemia requiring transfusions (7) UGIB (upper gastrointestinal bleed) (8) Hepatic encephalopathy (9) Portal hypertensive gastropathy (10) Diabetes 1.5, managed as type 2 -HH stable, no acute upper bleeding -GIn signed off -PPI -status post large volume paracentesis, 5.2 L removed on 12/05/2016, stable Anemia secondary to blood loss Thrombocytopenia, platelets 129,00 Coagulopathy -stable CBC Hepatic encephalopathy, Stablized, non agitation, alert, cooperative neuro checks prn medical management -Psychiatry has evaluated patient Respiratory failure, now resolved. Monitor sats DuoNeb's as needed, no SOB noted SCDs for DVT prophylaxis, no pharmacological DVT due to active GI bleeding Protonix for GI prophylaxis Labs reviewed stable remains encephalopathic, occ. agitated. hemauria, via lindquist., monitor labs check U/A today D/W RN D/W Dr. Polanco, seen on his behalf Claudia Michael Dec 15, 2016 11:57
[2016-12-15] MEDS: PANTOPRAZOLE SODIUM 40 MG VIAL IV PUSH SCH (13:31)
[2016-12-15 15:38] VITALS: BP 172/84; PULSE 73; RESP 18; TEMP 95.9; O2SAT 95
[2016-12-15 17:54] LABS: BACTERIA, URINE MOD /hpf; BLOOD, URINE MOD (NEG); GLUCOSE,URINE NEG (NEG); KETONE, URINE TRACE mg/dL (NEG); MUCUS URINE FEW /lpf (OCC); PH, URINE 5.5 (5.0-8.5); URINE COLOR DARK-YELLOW (YELLW/STRAW)
[2016-12-15 17:58] LABS: COMMENT (UR) CATH-CULTURE IND; CULTURE IF INDICATED CATH CULTURE IND; NITRITE,URINE POS (NEG)
[2016-12-15] MEDS: TAMSULOSIN HCL 0.4 MG CAP PO SCH (18:49)
[2016-12-15 21:47] VITALS: BP 151/76; PULSE 67; RESP 18; TEMP 96.8; O2SAT 100
[2016-12-15] MEDS: MORPHINE SULFATE 4 MG/ML INJ IV PRN (22:35)
[2016-12-16] VITALS (7 sets, daily range): BP systolic 106–172; BP diastolic 58–80; PULSE 56–73; RESP 17–22; TEMP 97–98.6; O2SAT 94–100
[2016-12-16] MEDS: LORazepam 2 MG/ML VIAL IV PUSH PRN (00:45)
[2016-12-16] MEDS: SODIUM CHLOR 0.9% 1000 ML INJ 1,000 ML IV SCH (01:30)
[2016-12-16] MEDS: CHLORHEXIDINE GLUCONATE 2 % 1 PACK (2 CLOTHS) TOP SCH (04:00)
[2016-12-16] MEDS: PROPRANOLOL HCL 10 MG TAB PO SCH ×3 (06:00→22:44)
[2016-12-16] MEDS: METOCLOPRAMIDE HCL 10 MG/2 ML VIAL IV PUSH SCH ×3 (06:00→22:45)
[2016-12-16] MEDS: LOW DOSE INSULIN NOVOLIN REGULAR SUPPLEMENTAL SCALE SQ SCH ×4 (07:00→22:46)
[2016-12-16] MEDS: SODIUM CHLORIDE 0.9% FLUSH 10 ML FLUSH SCH ×2 (09:00→21:00)
[2016-12-16] MEDS: BENEPROTEIN POWDER 1 PACK G-TUBE SCH ×3 (09:00→18:00)
[2016-12-16] MEDS: THIAMINE HCL 100 MG TAB PO SCH (10:22)
[2016-12-16] MEDS: LACTULOSE SYRUP 20 GM/30 ML CUP PO SCH ×4 (10:22→22:44)
[2016-12-16] MEDS: TAMSULOSIN HCL 0.4 MG CAP PO SCH (10:49)
--- NOTE | 2016-12-16 11:20 | HHI.PR ---
Subjective Remarks awake speech slow, clear no acute agitation noted, sitting out at station new UTI, hematuria lindquist afebrile today Objective Objective Results - Vital Signs Date Time Temp Pulse Resp B/P Pulse Ox O2 Delivery O2 Flow Rate FiO2 12/16/16 08:00 97.3 64 17 172/80 94 12/16/16 04:00 97.8 56 22 106/58 94 12/16/16 00:14 73 20 121/70 100 12/15/16 21:47 96.8 67 18 151/76 100 12/15/16 20:15 Room Air 12/15/16 15:38 95.9 73 18 172/84 95 12/15/16 11:40 98.4 67 19 152/72 96 I/O 12/15/16 12/15/16 12/15/16 12/16/16 12/16/16 12/16/16 07:00 15:00 23:00 07:00 15:00 23:00 Intake Total 480 ml 240 ml Output Total 300 ml 400 ml 50 ml Balance 180 ml -160 ml -50 ml Intake Oral 480 ml 240 ml Output Urine Total 300 ml 400 ml 50 ml # Voids 2 # Bowel Movements 2 0 4 1 Result Diagram: 12/14/1616 12/14/16 0516 ROS General: Other (10 point ROS done, positives include new UTI, and nicotine cravings, otherwise negative) /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 ) Physical Exam Physical Exam PHYSICAL EXAMINATION GENERAL: This is a thin male who appears to be in no acute distress. He is alert and awake, HEAD: Normocephalic without any lesion or mass noted. Facial features appear symmetric. OROPHARYNGEAL: Oropharynx without erythema or edema. NECK: Supple. No nuchal rigidity or lymphadenopathy. Trachea midline without deviation. CARDIAC: Regular rhythm, regular rate, S1 and S2 are heard. LUNGS: Clear to auscultation bilaterally. ABDOMEN: Soft, nontender, no organomegaly or masses. Bowel sounds are heard in all four quadrants. No rebound. No guarding. , lindquist , hematuria noted, EXTREMITIES: no edema. Pulses equal bilateral. NEUROLOGICAL: Patient mood and affect appropriate. no anxiety SKIN:Warm and moist Objective Remarks Im craving cigs. A/P Assessment and Plan 1) Respiratory failure (2) GI bleed (3) History of alcohol abuse (4) Delirium (5) Liver cirrhosis (6) Anemia requiring transfusions (7) UGIB (upper gastrointestinal bleed) (8) Hepatic encephalopathy (9) Portal hypertensive gastropathy (10) Diabetes 1.5, managed as type 2 11.. UTI -HH stable, no acute upper bleeding -GIn signed off -PPI - Anemia secondary to blood loss monitor Hepatic encephalopathy, Stablized, non agitation, alert, cooperative neuro checks stable medical management Respiratory failure, now resolved. Monitor sats DuoNeb's as needed, no SOB noted SCDs for DVT prophylaxis, no pharmacological DVT due to active GI bleeding Protonix for GI prophylaxis hemauria, via lindquist., monitor labs check U/A today Tobacco cravings, Added Nicotine patch today. UTI, gross hematuria, Added Levaquin IV today, after 24 hrs, may D/C lindquist. If patient gets a DC SNF bed, may go ahead and transition antibiotic to PO. DC planning, possible NIKKI Perez D/W RN D/W Dr. Polanco, seen on his behalf Claudia Michael Dec 16, 2016 11:20
[2016-12-16] MEDS ORDERED: LEVOFLOXACIN 750 MG PREMIX INJ 150 ML IV SCH (12:00)
[2016-12-16] MEDS: PANTOPRAZOLE SODIUM 40 MG VIAL IV PUSH SCH ×3 (13:28→22:47)
[2016-12-16] MEDS: NICOTINE 21 MG/24 HR PATCH T-DERMAL SCH (14:50)
[2016-12-16] MEDS: MORPHINE SULFATE 4 MG/ML INJ IV PRN ×2 (18:55→19:10)
[2016-12-16 21:42] LABS: BICARBONATE 24.8 MEQ/L (21.0-32.0); MAGNESIUM 1.6 MG/DL (1.5-2.5); POTASSIUM 3.7 MEQ/L (3.5-5.1)
[2016-12-17] VITALS: BP 119/71; PULSE 60; RESP 18; TEMP 97; O2SAT 96
[2016-12-17 04:00] VITALS: BP 134/74; PULSE 60; RESP 20; TEMP 97.5; O2SAT 97
[2016-12-17] MEDS: CHLORHEXIDINE GLUCONATE 2 % 1 PACK (2 CLOTHS) TOP SCH (04:00)
[2016-12-17] MEDS: METOCLOPRAMIDE HCL 10 MG/2 ML VIAL IV PUSH SCH ×3 (06:42→22:01)
[2016-12-17] MEDS: LOW DOSE INSULIN NOVOLIN REGULAR SUPPLEMENTAL SCALE SQ SCH ×4 (06:43→21:00)
[2016-12-17] MEDS: PROPRANOLOL HCL 10 MG TAB PO SCH ×3 (06:43→22:00)
[2016-12-17 08:04] VITALS: BP 176/85; PULSE 74; RESP 18; TEMP 98; O2SAT 94
[2016-12-17] MEDS: REMOVE OLD PATCH T-DERMAL SCH (08:20)
[2016-12-17] MEDS: LACTULOSE SYRUP 20 GM/30 ML CUP PO SCH ×4 (08:25→22:00)
[2016-12-17] MEDS: THIAMINE HCL 100 MG TAB PO SCH (08:25)
[2016-12-17] MEDS: TAMSULOSIN HCL 0.4 MG CAP PO SCH (08:25)
[2016-12-17] MEDS: NICOTINE 21 MG/24 HR PATCH T-DERMAL SCH (08:26)
[2016-12-17] MEDS: BENEPROTEIN POWDER 1 PACK G-TUBE SCH ×3 (08:30→17:31)
[2016-12-17] MEDS: SODIUM CHLORIDE 0.9% FLUSH 10 ML FLUSH SCH ×2 (08:31→21:00)
[2016-12-17 11:50] VITALS: BP 169/80; PULSE 82; RESP 18; TEMP 101.3; O2SAT 95
--- NOTE | 2016-12-17 12:10 | HHI.PR ---
Subjective Remarks awakes to voice, oriented x 2 cooperative, no restraints weak and unsteady, had a fall overnight no injury noted c/o back pain eating okay febrile 101.3 Objective Objective Results - Vital Signs Date Time Temp Pulse Resp B/P Pulse Ox O2 Delivery O2 Flow Rate FiO2 12/17/16 11:50 101.3 82 18 169/80 95 12/17/16 08:44 Room Air 12/17/16 08:04 98.0 74 18 176/85 94 12/17/16 04:00 97.5 60 20 134/74 97 12/17/16 00:00 97.0 60 18 119/71 96 12/16/16 23:00 98.6 64 18 122/73 96 12/16/16 20:30 97.6 61 18 132/77 96 12/16/16 20:00 Room Air 12/16/16 19:00 16 12/16/16 16:25 97.5 63 18 145/75 94 I/O 12/16/16 12/16/16 12/16/16 12/17/16 12/17/16 12/17/16 07:00 15:00 23:00 07:00 15:00 23:00 Intake Total 480 ml 800 ml 400 ml Output Total 50 ml 0 ml Balance -50 ml 480 ml 800 ml 400 ml Intake Oral 480 ml 800 ml 400 ml Output Urine Total 50 ml 0 ml # Voids 1 4 # Bowel Movements 1 2 0 0 Result Diagram: 12/14/16 0516 12/16/16 2114 Imaging Last Impressions Chest X-Ray 12/02/16 0000 Signed Impressions: Service Date/Time: Friday, December 02, 2016 16:06 - CONCLUSION: ET tube in good position. There is no pneumothorax. Long Bella MD FACR Other Results Laboratory Tests Test 12/16/16 21:14 Sodium Level 140 Potassium Level 3.7 Chloride Level 106 Carbon Dioxide Level 24.8 Anion Gap 9 Blood Urea Nitrogen 15 Creatinine 0.67 Estimat Glomerular Filtration 122 Rate Random Glucose 161 Calcium Level 8.1 Magnesium Level 1.6 Ammonia 41 Date/Time Procedure Status Source Growth 12/15/16 17:35 Urine Culture - Final Complete Urine Catheterized Urine Escherichia Coli Esbl Positive ROS General: Other (POOR HISTORIAN ) Physical Exam Physical Exam GENERAL: This is a well-nourished, well-developed patient, sleepy, awakes to voice SKIN: Skin pale HEAD: Atraumatic. Normocephalic. No temporal or scalp tenderness. EYES: Pupils equal round and reactive. Extraocular motions intact. No scleral icterus. No injection or drainage. ENT: Nose without bleeding, purulent drainage or septal hematoma. Throat without erythema, tonsillar hypertrophy or exudate. Uvula midline. Airway patent. NECK: Trachea midline. No JVD or lymphadenopathy. Supple, nontender, no meningeal signs. CARDIOVASCULAR: Regular rate and rhythm without murmurs, gallops, or rubs. RESPIRATORY: Diminished at bases GASTROINTESTINAL: Abdomen is distended, nontender, bowel sounds hypoactive 4. MUSCULOSKELETAL: Extremities without clubbing, cyanosis, or edema. No joint tenderness, effusion, or edema noted. No calf tenderness. Negative Homans sign bilaterally. NEUROLOGICAL: Awakes to voice, oriented to self and place. Follows simple commands. Urinary Catheter: No Vascular Central Line Catheter: No A/P Diagnosis: (1) Respiratory failure (2) GI bleed (3) History of alcohol abuse (4) Delirium (5) Liver cirrhosis (6) Anemia requiring transfusions (7) UGIB (upper gastrointestinal bleed) (8) Hepatic encephalopathy (9) Portal hypertensive gastropathy (10) Diabetes 1.5, managed as type 2 (11) ESBL (extended spectrum beta-lactamase) producing bacteria infection Assessment and Plan 56-year-old male with history of end-stage liver disease, hepatitis C, alcohol abuse. Admitted with upper GI bleed, hemoglobin of 5.8. Status post EGD 2 with findings of gastropathy, and single small varix in the distal esophagus which was not bleeding. -HH stable -GI signed off -PPI Antibiotics for SBP prophylaxis completed -status post large volume paracentesis, 5.2 L removed on 12/05/2016, stable Anemia secondary to blood loss Thrombocytopenia, platelets 129,00 Coagulopathy -CBC in am Hepatic encephalopathy, agitated, alcohol withdrawal. Ammonia level 75 initially, now down to 41. improving slowly Continue with neuro checks -continue Geodon and Ativan PRN Continue with as needed Ativan Continue with clonidine patch -Continue Thiamine and MVI -Psychiatry has evaluated patient Respiratory failure, now resolved. Monitor sats DuoNeb's as needed Febrile, UA + ESBL. Fever today -BC x 2 -Consult ID for evaluation -Alonzo bee yesterday -Repeat UA/UC today -DC Levaquin, defer abx to ID SCDs for DVT prophylaxis, no pharmacological DVT due to active GI bleeding Protonix for GI prophylaxis PT eval, OOB daily CM for discharge planning, SNF placement still encephalopathic, improving slowly, no longer on restraints D/W RN D/W Dr. Polanco This patient was seen by myself and Dr. Polanco, this note is written on his behalf. Problem Qualifiers (1) Respiratory failure: Qualified Code: J96.00 - Acute respiratory failure, unspecified whether with hypoxia or hypercapnia (2) GI bleed: Qualified Code: K92.2 - Gastrointestinal hemorrhage, unspecified gastrointestinal hemorrhage type (3) Liver cirrhosis: Joanna Herrera Dec 17, 2016 12:10
[2016-12-17] MEDS: ACETAMINOPHEN 325 MG TAB PO PRN ×2 (12:19→18:05)
[2016-12-17] MEDS: PANTOPRAZOLE SODIUM 40 MG VIAL IV PUSH SCH (12:22)
--- NOTE | 2016-12-17 12:31 | RADRPT ---
EXAM DATE/TIME: 12/17/2016 12:09 [facility] COMPARISON: CHEST SINGLE AP, December 02, 2016, 16:06. INDICATIONS : Fever MEDICAL HISTORY : Hypertension. Diabetes mellitus type II. Hepatitis C. SURGICAL HISTORY : Appendectomy. ENCOUNTER: Subsequent ACUITY: 2 weeks PAIN SCORE: 7/10 LOCATION: Bilateral chest FINDINGS: Right perihilar atelectasis is noted. The left lung is clear. The heart is stable. Hardware is not ed within the right clavicle. CONCLUSION: Right perihilar atelectasis. Avni Soto MD on December 17, 2016 at 12:24 Board Certified Radiologist. This report was verified electronically.
[2016-12-17] MEDS ORDERED: ASP: Path resistant to other antimicrobials, culture proven PRN (13:00)
[2016-12-17] MEDS ORDERED: MISCELLANEOUS PHARMACY INFORMATION XX PRN (13:00)
--- NOTE | 2016-12-17 13:29 | PD.ID.CON ---
History of Present Illness Service ID Consult Requested By Joanna Jimenez. Reason for Consult Evaluation and Mment of fevers, Ecoli ESBL UTI Primary Care Physician Long Huerta DO Diagnoses: History of Present Illness is a 56 y.o CM who was admitted on 12/02/16 for acute onset GI bleed that started a day prior to admission. Reported bloody vomitus 5 times a day prior to admission along with melanotic stools. The patient has a history of GI bleeds previously related to cirrhosis and varices, last in September requiring a blood transfusion. 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 The patient became concerned when he began to feel lightheaded, dizzy, weak with standing. He also has h/o Hep C and was on treatment details not known. He was visiting and camping in [place] last month and he reports that while in [place] he did have abdominal distention and 2 L of ascitic fluid was removed from his abdomen. The patient denies any recent fevers, cough, congestion, neck pain, chest pain, shortness of breath, abdominal pain, urinary symptoms, or other neurologic symptoms. On 12/03/2016 patient had an EGD and too much blood in stomach so patient was intubated and left intubated post procedure. EGD on 12/03/16 showed portal gastropathy, gastric fundus a single small varix in the distal esophagus which was not bleeding. Patient was extubated on 12/05/16 but neede Precedex in post extubation period. Had large volume paracentesis 5.2 L removed. At the time of my evaluation patient is on the 5th floor in [facility]. Laying in bed, awake yet confused. UO ok. Fevers noted and ID consulted for ESBL E.coli CAUTI. Review of Systems ROS Limitations: Altered Mental Status Past Family Social History Allergies: Coded Allergies: Neosporin (Verified Allergy, Mild, 12/01/16) Polysporin (Verified Allergy, Mild, RASH, 12/01/16) Past Medical History Hypertension Liver cirrhosis Hepatitis C Dyslipidemia Diabetes mellitus Diabetic neuropathy History of portal vein thrombosis Prior history of alcohol abuse Chronic back pain Degenerative disc disease History of ascites treated with paracentesis in the past Past Surgical History Paracentesis Repair clavicle Appendectomy Reported Medications Reported Meds & Active Scripts Active Ferrous Sulfate 325 Mg Tab 325 Mg PO BID Pantoprazole (Pantoprazole Sodium) 40 Mg Tab 40 Mg PO Q12HR 30 Days Propranolol (Propranolol HCl) 20 Mg Tab 20 Mg PO DAILY 30 Days Furosemide 20 Mg Tab 20 Mg PO DAILY 30 Days Lactinex (Lactobacillus Acidophilus) 1 Chew 1 Tab CHEW DAILY Reported Amlodipine (Amlodipine Besylate) 10 Mg Tab 10 Mg PO DAILY Tums (Calcium Carbonate (Antacid)) 500 Mg Chew 500 Mg CHEW DAILY PRN Isosorbide Dinitrate 5 Mg Tab 5 Mg PO DAILY Spironolactone 25 Mg Tab 25 Mg PO DAILY Lyrica (Pregabalin) 300 Mg Cap 300 Mg PO TID Buspirone (Buspirone HCl) 10 Mg Tab 10 Mg PO TID Baclofen 20 Mg Tab 20 Mg PO TID Hydrocodone-Acetaminophen 10-325 mg Tab 1 Tab PO 5 TIMES A DAY PRN Active Ordered Medications Current Medications Medications (Trade) Dose Ordered Sig/Jez Route Start Time Stop Time Status Last Admin (NS Flush) 2 ml UNSCH PRN .XX 12/02/16 00:30 12/14/16 09:38 (NS Flush) 2 ml BID .XX 12/02/16 09:00 12/15/16 22:36 (Tylenol) 650 mg Q6H PRN PO 12/02/16 00:30 12/17/16 12:19 (Morphine Inj) 2 mg Q2H PRN IV 12/02/16 00:30 12/16/16 18:55 (Zofran Inj) 4 mg Q6H PRN IV 12/02/16 00:30 (Reglan Inj) 10 mg Q6H PRN IV 12/02/16 00:30 Miscellaneous Information 1 Q361D XX 12/02/16 00:30 (Chlorhexidine 2% Cloth) Taper DAILY@04 TOP 12/02/16 04:00 11/28/17 03:59 12/13/16 04:00 (Chlorhexidine 2% Cloth) 3 pack UNSCH PRN TOP 12/02/16 00:30 (Reglan Inj) 10 mg Q8HR IV PUSH 12/02/16 14:45 12/17/16 13:27 (Inderal) 10 mg Q8HR PO 12/04/16 14:00 12/17/16 13:27 (Vitamin B1) 100 mg DAILY PO 12/08/16 09:00 12/17/16 08:25 (D50w (Vial) Inj) 25 ml UNSCH PRN IV PUSH 12/05/16 21:00 (Haldol Inj) 3 mg Q4H PRN IV 12/06/16 08:15 Hold 12/07/16 08:33 (Catapres-Tts 0.3 Mg Patch.7d) 1 patch Q7D T-DERMAL 12/07/16 12:00 12/14/16 17:37 (Ativan Inj) 1 mg Q2H PRN IV PUSH 12/09/16 08:30 12/16/16 00:45 (Lactulose Liq) 30 ml QID PO 12/10/16 13:00 12/17/16 13:27 (Beneprotein Powder) 1 pack TID G-TUBE 12/10/16 13:00 12/17/16 08:30 (Protonix Inj) 40 mg Q12H IV PUSH 12/11/16 12:00 12/17/16 12:22 (Geodon Inj) 5 mg Q8H PRN IM 12/14/16 19:00 (Pill Splitter) 1 ea UNSCH PRN OTHER 12/14/16 16:15 (Librium) 5 mg Q8H PO 12/15/16 13:22 12/17/16 13:27 (Flomax) 0.8 mg DAILY PO 12/15/16 18:15 12/17/16 08:25 (Habitrol 21 Mg Patch.24 Hr) 1 patch DAILY T-DERMAL 12/16/16 12:00 12/17/16 08:26 Miscellaneous Information 1 1 DAILY T-DERMAL 12/17/16 09:00 12/17/16 08:20 (Merrem Inj/NS Inj) 100 ml @ 200 mls/hr Q8H IV 12/17/16 14:00 Family History could not be obtained. No reported family h/o cancer per records. Social History Per review of records: alcohol consumption. Quantification not accurate or clear. No reported IVDA or smoking. Physical Exam Vital Signs Vital Signs Date Time Temp Pulse Resp B/P Pulse Ox O2 Delivery O2 Flow Rate FiO2 12/17/16 11:50 101.3 82 18 169/80 95 12/17/16 08:44 Room Air 12/17/16 08:04 98.0 74 18 176/85 94 12/17/16 04:00 97.5 60 20 134/74 97 12/17/16 00:00 97.0 60 18 119/71 96 12/16/16 23:00 98.6 64 18 122/73 96 12/16/16 20:30 97.6 61 18 132/77 96 12/16/16 20:00 Room Air 12/16/16 19:00 16 12/16/16 16:25 97.5 63 18 145/75 94 Physical Exam GENERAL: Thin built poorly nourished male patient, in no apparent distress. SKIN: No rashes, ecchymoses or lesions. Cool and dry. HEAD: Atraumatic. Normocephalic. No temporal or scalp tenderness. EYES: Pupils equal round and reactive. Extraocular motions intact. No scleral icterus. No injection or drainage. ENT: Nose without bleeding, purulent drainage or septal hematoma. Throat without erythema, tonsillar hypertrophy or exudate. Uvula midline. Airway patent. NECK: Trachea midline. Supple, nontender, no meningeal signs. CARDIOVASCULAR: RRR, ? systolic murmur. RESPIRATORY: Clear to auscultation. Breath sounds equal bilaterally. GASTROINTESTINAL: Abdomen soft, distended, diffuse tenderness, no guarding. Dull to percussion ? Fluid thrill. MUSCULOSKELETAL: Extremities without clubbing, cyanosis, or edema. No joint tenderness, effusion, or edema noted. No calf tenderness. Negative Homans sign bilaterally. NEUROLOGICAL: Awake and alert. Confused. Follows simple commands. No obvious focal deficits. Psych: cooperative IV line sites with no e.o infection. Laboratory Laboratory Tests Test 12/16/16 21:14 Sodium Level 140 Potassium Level 3.7 Chloride Level 106 Carbon Dioxide Level 24.8 Anion Gap 9 Blood Urea Nitrogen 15 Creatinine 0.67 Estimat Glomerular Filtration 122 Rate Random Glucose 161 Calcium Level 8.1 Magnesium Level 1.6 Ammonia 41 Date/Time Procedure Status Source Growth 12/15/16 17:35 Urine Culture - Final Complete Urine Catheterized Urine Escherichia Coli Esbl Positive Result Diagram: 12/14/16 0516 12/16/162113 Imaging Last Impressions Chest X-Ray 12/17/16 0000 Signed Impressions: Service Date/Time: November 12:09 - CONCLUSION: Right perihilar atelectasis. Avni Soto MD Assessment and Plan Assessment and Plan Sepsis new onset (fever in an Immune compromised patient) ESBL positive E.coli Cath associated UTI (had an indwelling catheter removed on day of culture) Aspiration Pneumonia in setting of altered mental status. Acute metabolic encephalopathy; infection, liver issues. Liver Cirrhosis with portal gastropathy and GI bleed on admission. Ascites ? SBP Thrombocytopenia: sepsis, possible liver cirrhosis. Will check HIV and Hepatitis profile. H/o Hep C reportedly on treatment prior to admission. Recs: No need for repeat UA. Blood cultures x 2 stat Start Meropenem IV (ASP criteria: Pneumonia in Health care setting plus ESBL E.coli CAUTI). Organism is ESBL E.coli UTI: directed therapy. No need for Vanco IV at present time. Follow cultures Follow clinically. jonathan Herrera to jonathan MCKEON about need for paracentesis in view of marked distention of abdomen (diagnostic and therapeutic). Faith Lee MD Dec 17, 2016 13:29
[2016-12-17] MEDS: MEROPENEM INJ 500 MG in SODIUM CHLORIDE 0.9% INJ 100 ML IV SCH ×2 (13:34→22:00)
--- NOTE | 2016-12-17 15:55 | HHI.GIFU ---
Subjective Remarks GI reconsulted for ascites. Pt says he started noticing abdominal swelling in the last 2-3 days. He is having some abdominal discomfort. He says he has had this before and felt better after the fluid was removed. Denies n/v. (Carissa Zhu) Objective Vitals I&O Vital Signs Date Time Temp Pulse Resp B/P Pulse Ox O2 Delivery O2 Flow Rate FiO2 12/17/16 11:50 101.3 82 18 169/80 95 12/17/16 08:44 Room Air 12/17/16 08:04 98.0 74 18 176/85 94 12/17/16 04:00 97.5 60 20 134/74 97 12/17/16 00:00 97.0 60 18 119/71 96 12/16/16 23:00 98.6 64 18 122/73 96 12/16/16 20:30 97.6 61 18 132/77 96 12/16/16 20:00 Room Air 12/16/16 19:00 16 12/16/16 16:25 97.5 63 18 145/75 94 I/O 12/16/16 12/16/16 12/16/16 12/17/16 12/17/16 12/17/16 07:00 15:00 23:00 07:00 15:00 23:00 Intake Total 480 ml 800 ml 400 ml Output Total 50 ml 0 ml Balance -50 ml 480 ml 800 ml 400 ml Intake Oral 480 ml 800 ml 400 ml Output Urine Total 50 ml 0 ml # Voids 1 4 # Bowel Movements 1 2 0 0 Laboratory Laboratory Tests Test 12/16/16 21:14 Sodium Level 140 Potassium Level 3.7 Chloride Level 106 Carbon Dioxide Level 24.8 Anion Gap 9 Blood Urea Nitrogen 15 Creatinine 0.67 Estimat Glomerular Filtration 122 Rate Random Glucose 161 Calcium Level 8.1 Magnesium Level 1.6 Ammonia 41 Date/Time Procedure Status Source Growth 12/17/16 14:11 Aerobic Blood Culture Received Blood Peripheral Pending 12/17/16 14:11 Anaerobic Blood Culture Received Blood Peripheral Pending 12/15/16 17:35 Urine Culture - Final Complete Urine Catheterized Urine Escherichia Coli Esbl Positive Imaging Last Impressions Chest X-Ray 12/17/16 0000 Signed Impressions: Service Date/Time: November 12:09 - CONCLUSION: Right perihilar atelectasis. Avni Soto MD Physical Exam HEENT: Normocephalic; atraumatic; no jaundice. CHEST: CTA CARDIAC: RRR ABDOMEN: Soft, distended, dullness to percussion on left side, mild diffuse TTP ; hepatosplenomegaly; bowel sounds are present in all four quadrants. EXTREMITIES: No clubbing, cyanosis, or edema. SKIN: Normal; no rash; no jaundice. 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 (Carissa Zhu) Assessment and Plan Plan ASSESSMENT: - ascites. per pt abdominal swelling developed over last couple days. Will add lasix, spironolactone and see how he does. If worsens consider paracentesis - hx GI bleed. S/P EGD (12/02/16)-----> 1. Portal hypertensive gastropathy was found in the gastric fundus 2. Old blood 3. Retroflexed views revealed no abnormalities. No active bleeding. HH stable 10.4/30.8. PPI. - Anemia. HH 9.7/28.8. - Liver cirrhosis, portal htn, LFT stable. Propanolol - DM, HTN, per primary PLAN: - JEREMY - lasix, spironolactone - PPI - Monitor labs - Supportive care - Pt seen and examined by Dr. Minor and myself and this note is written on her behalf (Carissa Zhu) Physician Comments seen, examined agree with above we will order us guided paracentesis, diagnostic, therapeutic ammonia level we will start Rifaximin 550 mg po bid \ we will switch Lasix to iv , and ad albumin iv (Jody Minor MD) Carissa Zhu Dec 17, 2016 15:55 Jody Minro MD Dec 17, 2016 16:08
[2016-12-17] MEDS ORDERED: FUROSEMIDE 40 MG TAB PO SCH (16:00)
[2016-12-17 16:31] VITALS: BP 181/86; PULSE 76; RESP 17; TEMP 99.3; O2SAT 95
[2016-12-17] MEDS: FUROSEMIDE 20 MG/2 ML VIAL IV PUSH SCH (17:34)
[2016-12-17] MEDS: ALBUMIN HUMAN 25% 25 GM/100 ML BAGP IV SCH (17:34)
[2016-12-17] MEDS: SPIRONOLACTONE 50 MG TAB PO SCH (18:04)
[2016-12-17 20:00] VITALS: BP 135/68; PULSE 80; RESP 20; TEMP 100.9; O2SAT 96
[2016-12-17 20:07] LABS: INTERNATIONAL NORMALIZED RATIO 1.3 RATIO; PROTHROMBIN TIME - PATIENT 14.4 SEC (9.8-11.6)
[2016-12-17 20:10] LABS: HEMATOCRIT 29.9 % (39.0-51.0); MEAN CELL VOLUME 88.2 FL (80.0-100.0); MEAN CORPUSCULAR HEMOGLOBIN 29.9 PG (27.0-34.0); MEAN CORPUSCULAR HGB CONC 33.8 % (32.0-36.0); PLATELET COUNT 168 TH/MM3 (150-450); RED BLOOD COUNT 3.39 MIL/MM3 (4.50-5.90); RED CELL DISTRIBUTION WIDTH 17.2 % (11.6-17.2); REVIEW FLAG FINAL; WHITE BLOOD COUNT 8.4 TH/MM3 (4.0-11.0)
[2016-12-17] MEDS: RIFAXIMIN 550 MG TAB PO SCH (22:00)
[2016-12-18] VITALS (8 sets, daily range): BP systolic 102–190; BP diastolic 53–90; PULSE 62–78; RESP 18–20; TEMP 96.7–98.9; O2SAT 94–99
[2016-12-18] MEDS: PANTOPRAZOLE SODIUM 40 MG VIAL IV PUSH SCH
[2016-12-18] MEDS: CHLORHEXIDINE GLUCONATE 2 % 1 PACK (2 CLOTHS) TOP SCH (04:00)
[2016-12-18] MEDS: ALBUMIN HUMAN 25% 25 GM/100 ML BAGP IV SCH ×2 (05:00→17:52)
[2016-12-18] MEDS: PROPRANOLOL HCL 10 MG TAB PO SCH ×3 (05:16→21:47)
[2016-12-18] MEDS: METOCLOPRAMIDE HCL 10 MG/2 ML VIAL IV PUSH SCH ×3 (05:17→21:47)
[2016-12-18] MEDS: MEROPENEM INJ 500 MG in SODIUM CHLORIDE 0.9% INJ 100 ML IV SCH ×3 (05:17→21:48)
[2016-12-18] MEDS: LOW DOSE INSULIN NOVOLIN REGULAR SUPPLEMENTAL SCALE SQ SCH ×5 (06:22→21:48)
[2016-12-18] MEDS: BENEPROTEIN POWDER 1 PACK G-TUBE SCH ×3 (09:00→17:43)
[2016-12-18] MEDS: NICOTINE 21 MG/24 HR PATCH T-DERMAL SCH (10:34)
[2016-12-18] MEDS: REMOVE OLD PATCH T-DERMAL SCH (10:34)
[2016-12-18] MEDS: FUROSEMIDE 20 MG/2 ML VIAL IV PUSH SCH ×2 (10:35→17:52)
[2016-12-18] MEDS: SPIRONOLACTONE 50 MG TAB PO SCH (10:35)
[2016-12-18] MEDS: RIFAXIMIN 550 MG TAB PO SCH ×2 (10:35→21:47)
[2016-12-18] MEDS: LACTULOSE SYRUP 20 GM/30 ML CUP PO SCH ×4 (10:35→21:48)
[2016-12-18] MEDS: TAMSULOSIN HCL 0.4 MG CAP PO SCH (10:39)
[2016-12-18] MEDS: THIAMINE HCL 100 MG TAB PO SCH (10:39)
[2016-12-18] MEDS: SODIUM CHLORIDE 0.9% FLUSH 10 ML FLUSH SCH ×2 (10:39→21:00)
--- NOTE | 2016-12-18 11:15 | HHI.IDPN ---
Subjective Subjective Remarks is a 56 y.o CM who was admitted on 12/02/16 for acute onset GI bleed that started a day prior to admission. Reported bloody vomitus 5 times a day prior to admission along with melanotic stools. The patient has a history of GI bleeds previously related to cirrhosis and varices, last in September requiring a blood transfusion. 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 The patient became concerned when he began to feel lightheaded, dizzy, weak with standing. He also has h/o Hep C and was on treatment details not known. He was visiting and camping in [place] last month and he reports that while in [place] he did have abdominal distention and 2 L of ascitic fluid was removed from his abdomen. The patient denies any recent fevers, cough, congestion, neck pain, chest pain, shortness of breath, abdominal pain, urinary symptoms, or other neurologic symptoms. On 12/03/2016 patient had an EGD and too much blood in stomach so patient was intubated and left intubated post procedure. EGD on 12/03/16 showed portal gastropathy, gastric fundus a single small varix in the distal esophagus which was not bleeding. Patient was extubated on 12/05/16 but neede Precedex in post extubation period. Had large volume paracentesis 5.2 L removed. ID following for new fever, E.coli UTI. Overnight events reviewed No fever No rash No diarrhea Much more alert. OOB and having shower earlier. Antibiotics Meropenem IV Lines Line sites with no e.o infection Past Medical History reviewed Allergies: Coded Allergies: Neosporin (Verified Allergy, Mild, 12/01/16) Polysporin (Verified Allergy, Mild, RASH, 12/01/16) *MDRO Multi-Drug Resistant Organism (Verified Adverse Reaction, Unknown, ) ESBL E. coli (urine) - 12/15/16 Objective . Vital Signs Date Time Temp Pulse Resp B/P Pulse Ox O2 Delivery O2 Flow Rate FiO2 12/18/16 08:15 98.3 67 18 138/75 97 12/18/16 04:00 98.9 78 20 122/57 96 12/18/16 00:00 98.6 78 20 102/53 95 12/17/16 20:00 100.9 80 20 135/68 96 12/17/16 20:00 Room Air 12/17/16 16:31 99.3 76 17 181/86 95 12/17/16 11:50 101.3 82 18 169/80 95 12/17/16 12/17/16 12/18/16 15:00 23:00 07:00 Intake Total 240 ml 480 ml Balance 240 ml 480 ml Intake Oral 240 ml 480 ml # Voids 5 2 # Bowel Movements 3 0 . Laboratory Tests Test 12/17/16 19:40 White Blood Count 8.4 TH/MM3 Red Blood Count 3.39 MIL/MM3 Hemoglobin 10.1 GM/DL Hematocrit 29.9 % Mean Corpuscular Volume 88.2 FL Mean Corpuscular Hemoglobin 29.9 PG Mean Corpuscular Hemoglobin 33.8 % Concent Red Cell Distribution Width 17.2 % Platelet Count 168 TH/MM3 Mean Platelet Volume 9.2 FL Laboratory Tests Test 12/16/16 12/17/16 21:14 19:49 Sodium Level 140 MEQ/L Potassium Level 3.7 MEQ/L Chloride Level 106 MEQ/L Carbon Dioxide Level 24.8 MEQ/L Anion Gap 9 MEQ/L Blood Urea Nitrogen 15 MG/DL Creatinine 0.67 MG/DL Estimat Glomerular Filtration 122 ML/MIN Rate Random Glucose 161 MG/DL Calcium Level 8.1 MG/DL Magnesium Level 1.6 MG/DL Ammonia 41 MCMOL/L 32 MCMOL/L Total Protein 7.3 GM/DL Microbiology Date/Time Procedure Status Source Growth 12/15/16 17:35 Urine Culture - Final Complete Urine Catheterized Urine Escherichia Coli Esbl Positive 12/17/16 14:00 Aerobic Blood Culture Received Blood Peripheral Pending 12/17/16 14:00 Anaerobic Blood Culture Received Blood Peripheral Pending 12/17/16 14:11 Aerobic Blood Culture Received Blood Peripheral Pending 12/17/16 14:11 Anaerobic Blood Culture Received Blood Peripheral Pending Imaging Last Impressions Chest X-Ray 12/17/16 0000 Signed Impressions: Service Date/Time: November 12:09 - CONCLUSION: Right perihilar atelectasis. Avni Soto MD Physical Exam GENERAL: Thin built poorly nourished male patient, in no apparent distress. SKIN: No rashes, ecchymoses or lesions. Cool and dry. HEAD: Atraumatic. Normocephalic. No temporal or scalp tenderness. EYES: Pupils equal round and reactive. Extraocular motions intact. No scleral icterus. No injection or drainage. ENT: Nose without bleeding, purulent drainage or septal hematoma. Throat without erythema, tonsillar hypertrophy or exudate. Uvula midline. Airway patent. NECK: Trachea midline. Supple, nontender, no meningeal signs. CARDIOVASCULAR: RRR, ? systolic murmur. RESPIRATORY: Clear to auscultation. Breath sounds equal bilaterally. GASTROINTESTINAL: Abdomen soft, distended, diffuse tenderness, no guarding. Dull to percussion ? Fluid thrill. MUSCULOSKELETAL: Extremities without clubbing, cyanosis, or edema. No joint tenderness, effusion, or edema noted. No calf tenderness. Negative Homans sign bilaterally. NEUROLOGICAL: Awake and alert. Confused. Follows simple commands. No obvious focal deficits. Psych: cooperative IV line sites with no e.o infection. Assessment & Plan Remarks Sepsis new onset (fever in an Immune compromised patient) ESBL positive E.coli Cath associated UTI (had an indwelling catheter removed on day of culture) Aspiration Pneumonia in setting of altered mental status. Acute metabolic encephalopathy; infection, liver issues. Liver Cirrhosis with portal gastropathy and GI bleed on admission. Ascites ? SBP Thrombocytopenia: sepsis, possible liver cirrhosis. Will check HIV and Hepatitis profile. H/o Hep C reportedly on treatment prior to admission. Recs: No need for repeat UA. Blood cultures x 2 stat Continue Meropenem IV (ASP criteria: Pneumonia in Health care setting plus ESBL E.coli CAUTI). Follow cultures Follow clinically. Await GI input on need for repeat paracentesis. I will be OOT 12/19/16 to 12/21/16 to cover for me. Will be back on . Faith Lee MD Dec 18, 2016 11:15
--- NOTE | 2016-12-18 12:32 | RADRPT ---
EXAM DATE/TIME: 12/18/2016 08:50 [facility] COMPARISON: No previous studies available for comparison. EXTERNAL COMPARISON : [facility], US ABDOMEN - COMPLETE, September 15, 2016 INDICATIONS : Liver cirrhosis. MEDICAL HISTORY : Hypercholesterolemia. Hypertension. Cirrhosis. Diabetic neuropathy. Anticoagulant therapy, Aspirin. D iabetes. End stage liver disease. Hepatitis C. Ascites. Blood transfusion. ETOH abuse. Gastrointestin al bleed. SURGICAL HISTORY : Appendectomy. Tonsillectomy. Hand surgery with pins. Right clavicle repair. Paracentesis. ENCOUNTER: Subsequent ACUITY: 3 months PAIN SCORE: 3/10 LOCATION: Abdomen. MEASUREMENTS: LIVER: 15.6 cm length COMMON DUCT: 5 mm RIGHT KIDNEY: 12.4 x 5.7 x 5.3 cm cm LEFT KIDNEY: 13.0 x 5.9 x 6.5 cm cm SPLEEN: 17.7 cm length AORTA: 3.2 cm cm maximal FINDINGS: LIVER: Lobulated borders with increased echogenicity characteristic of cirrhosis. On Doppler interrogation, there appears to be thrombosis of the main portal vein with periportal collaterals. Diffuse peritone al ascites. COMMON DUCT: No intraluminal mass or stone visualized. GALLBLADDER: Sludge filled without mural thickening. Pericholecystic fluid is associated with diffuse ascites PANCREAS: The visualized portions are within normal limits. RIGHT KIDNEY: No hydronephrosis, stone or mass. LEFT KIDNEY: No hydronephrosis, stone or mass. SPLEEN: Enlarged at 17.7 cm without focal lesion AORTA: Non aneurysmal. IVC: Within normal limits. CONCLUSION: 1. Spectrum of findings characteristic of hepatic cirrhosis with a lobulated, echogenic liver, diffus e ascites, splenomegaly and a thrombosed main portal vein and periportal collaterals. 2. Sludge filled gallbladder. Catarino Amador MD on December 18, 2016 at 12:20 Board Certified Radiologist. This report was verified electronically.
[2016-12-18] MEDS ORDERED: KETOROLAC TROMETHAMINE 10 MG TAB PO PRN (13:15)
--- NOTE | 2016-12-18 13:15 | HHI.PR ---
Subjective Remarks sitting up in bed, more awake, oriented x 2 more appropriate had shower today c/o low back pain and leg pain, states he has neuropathy and chronic back pain problems no cp no sob eating okay agreeable with rehab, states he has no family close by upset at times about his pet febrile last night 100.9, no cough, no sputum abd. distended Objective Objective Results - Vital Signs Date Time Temp Pulse Resp B/P Pulse Ox O2 Delivery O2 Flow Rate FiO2 12/18/16 12:47 96.7 64 18 158/72 97 12/18/16 11:23 Room Air 12/18/16 08:15 98.3 67 18 138/75 97 12/18/16 04:00 98.9 78 20 122/57 96 12/18/16 00:00 98.6 78 20 102/53 95 12/17/16 20:00 100.9 80 20 135/68 96 12/17/16 20:00 Room Air 12/17/16 16:31 99.3 76 17 181/86 95 I/O 12/17/16 12/17/16 12/17/16 12/18/16 12/18/16 12/18/16 07:00 15:00 23:00 07:00 15:00 23:00 Intake Total 400 ml 240 ml 480 ml Balance 400 ml 240 ml 480 ml Intake Oral 400 ml 240 ml 480 ml # Voids 4 5 2 # Bowel Movements 0 3 0 Result Diagram: 12/17/16 1940 12/16/16 2114 Imaging Last Impressions Chest X-Ray 12/02/16 0000 Signed Impressions: Service Date/Time: Friday, December 02, 2016 16:06 - CONCLUSION: ET tube in good position. There is no pneumothorax. Long Bella MD FACR Other Results Laboratory Tests Test 12/17/16 12/17/16 19:40 19:49 White Blood Count 8.4 Red Blood Count 3.39 Hemoglobin 10.1 Hematocrit 29.9 Mean Corpuscular Volume 88.2 Mean Corpuscular Hemoglobin 29.9 Mean Corpuscular Hemoglobin 33.8 Concent Red Cell Distribution Width 17.2 Platelet Count 168 Mean Platelet Volume 9.2 Prothrombin Time 14.4 Prothromb Time International 1.3 Ratio Ammonia 32 Total Protein 7.3 Date/Time Procedure Status Source Growth 12/17/16 14:11 Aerobic Blood Culture - Preliminary Resulted Blood Peripheral NO GROWTH IN 1 DAY 12/17/16 14:11 Anaerobic Blood Culture - Preliminary Resulted Blood Peripheral NO GROWTH IN 1 DAY 12/15/16 17:35 Urine Culture - Final Complete Urine Catheterized Urine Escherichia Coli Esbl Positive ROS General: Other (poor historian, c/o back, leg pain, abd. distension ) Physical Exam Physical Exam GENERAL: This is a well-nourished, well-developed patient, sleepy, awakes to voice SKIN: Skin pale HEAD: Atraumatic. Normocephalic. No temporal or scalp tenderness. EYES: Pupils equal round and reactive. Extraocular motions intact. No scleral icterus. No injection or drainage. ENT: Nose without bleeding, purulent drainage or septal hematoma. Throat without erythema, tonsillar hypertrophy or exudate. Uvula midline. Airway patent. NECK: Trachea midline. No JVD or lymphadenopathy. Supple, nontender, no meningeal signs. CARDIOVASCULAR: Regular rate and rhythm without murmurs, gallops, or rubs. RESPIRATORY: Diminished at bases GASTROINTESTINAL: Abdomen is distended, nontender, bowel sounds hypoactive 4. MUSCULOSKELETAL: Extremities without clubbing, cyanosis, or edema. No joint tenderness, effusion, or edema noted. No calf tenderness. Negative Homans sign bilaterally. NEUROLOGICAL: Awakes to voice, oriented to self and place. More awake, improving , no focal deficits. Urinary Catheter: No Vascular Central Line Catheter: No A/P Diagnosis: (1) Respiratory failure (2) GI bleed (3) History of alcohol abuse (4) Delirium (5) Liver cirrhosis (6) Anemia requiring transfusions (7) UGIB (upper gastrointestinal bleed) (8) Hepatic encephalopathy (9) Portal hypertensive gastropathy (10) Diabetes 1.5, managed as type 2 (11) ESBL (extended spectrum beta-lactamase) producing bacteria infection Assessment and Plan 56-year-old male with history of end-stage liver disease, hepatitis C, alcohol abuse. Admitted with upper GI bleed, hemoglobin of 5.8. Status post EGD 2 with findings of gastropathy, and single small varix in the distal esophagus which was not bleeding. -HH stable -GI signed off -PPI Antibiotics for SBP prophylaxis completed -status post large volume paracentesis, 5.2 L removed on 12/05/2016, stable -abd. distended, abd. US, +ascites, thrombosed portal vein. For paracentesis today and fluid cytology Anemia secondary to blood loss-stable Thrombocytopenia, platelets back to normal Coagulopathy -CBC reviewed, stable Hepatic encephalopathy, agitated, alcohol withdrawal. Ammonia level 75 initially, down 32. markedly improved. -continue Geodon and Ativan PRN Continue with clonidine patch -Continue Thiamine and MVI -Psychiatry has evaluated patient Respiratory failure, now resolved. Monitor sats DuoNeb's as needed Febrile, UA + ESBL. Had lindquist, has been discontinued. -CXR done, reviewed, RLL infiltrate ? aspiration -cultures done, follow up results, pending. -ID input appreciated. -Continue Meropenem -peritoneal fluid for cytology pending C/O back pain, chronic, has peripheral neuopathy -add Toradol PRN SCDs for DVT prophylaxis, no pharmacological DVT due to active GI bleeding Protonix for GI prophylaxis PT eval, OOB daily CM for discharge planning, SNF placement Encephalopathy improving, hopefully dc to SNF next week, poss. on abx d/w pt. agreeable, he has no family nearby D/W RN D/W Dr. Polanco D/W Pt This patient was seen by myself and Dr. Polanco, this note is written on his behalf. Problem Qualifiers (1) Respiratory failure: Qualified Code: J96.00 - Acute respiratory failure, unspecified whether with hypoxia or hypercapnia (2) GI bleed: Qualified Code: K92.2 - Gastrointestinal hemorrhage, unspecified gastrointestinal hemorrhage type (3) Liver cirrhosis: Joanna Herrera [facility] Dec 18, 2016 13:15
--- NOTE | 2016-12-18 15:48 | RADRPT ---
EXAM DATE/TIME: 12/18/2016 14:11 [facility] COMPARISON: No previous studies available for comparison. EXTERNAL COMPARISON: [facility], US ABDOMEN, COMPLETE, Sep 15 2016, [facility], CT ABDOMEN & PELVIS W & W /O CONTRAST, June 05, 2010, CT ABDOMEN & PELVIS W CONTRAST, November 13, 2009. INDICATIONS : Ascites. MEDICAL HISTORY : Hypercholesterolemia. Hypertension. Cirrhosis. Diabetic neuropathy. Anticoagulant therapy, Aspirin. D iabetes. End stage liver disease. Hepatitis C. Ascites. Blood transfusion. ETOH abuse. Gastrointestin al bleed. SURGICAL HISTORY : Tonsillectomy. Appendectomy. Hand surgery with pins. Right clavicle repair. Paracentesis. ENCOUNTER: Initial ACUITY: 1 day PAIN SCORE: 0/10 LOCATION: Left lower quadrant FLUID: Total volume of 5,000 cc of clear, yellow fluid was removed. Fluid was sent to lab for ordered studies. Post procedure scanning reveals no hematoma or other complication. TECHNIQUE: 1. Ultrasound guidance for abdominal paracentesis. 2. Paracentesis. The risks, benefits, and alternatives to ultrasound guided paracentesis were explained to the patient in detail including the risk of bleeding and infection. Written and verbal informed consent was obt ained. With the patient on the ultrasound table, ultrasound imaging was used to select the most appropriate approach for paracentesis. Overlying skin was prepped and draped in the usual sterile fashion and wi th a local anesthetic, a dermatotomy was made with an 11 blade scalpel. A 6 [place] [id number] ca theter was introduced into the peritoneal cavity and fluid was collected. The patient tolerated the procedure well and left the ultrasound suite in stable condition. CONCLUSION: Uncomplicated ultrasound guided paracentesis. Long Bella MD FACR on December 18, 2016 at 15:46 Board Certified Radiologist. This report was verified electronically.
[2016-12-18 17:20] LABS: PERITONEAL WBC 369 /MM3 (0-10)
[2016-12-18 17:21] LABS: PERITONEAL HISTIOCYTES 17 %; PERITONEAL LYMPHS 26 %; PERITONEAL MESOTHELIAL 4 %; PERITONEAL MONOS 32 %; PERITONEAL POLYS(SEGS) 21 %
--- NOTE | 2016-12-18 17:42 | HHI.GIFU ---
Subjective Remarks Ambulating about room. Tolerating diet. Had paracentesis today. Feels much better after this. One loose stool. Objective Vitals I&O Vital Signs Date Time Temp Pulse Resp B/P Pulse Ox O2 Delivery O2 Flow Rate FiO2 12/18/16 16:17 97.0 62 18 190/90 96 12/18/16 14:15 98.0 62 18 139/70 94 12/18/16 12:47 96.7 64 18 158/72 97 12/18/16 11:23 Room Air 12/18/16 08:15 98.3 67 18 138/75 97 12/18/16 04:00 98.9 78 20 122/57 96 12/18/16 00:00 98.6 78 20 102/53 95 12/17/16 20:00 100.9 80 20 135/68 96 12/17/16 20:00 Room Air I/O 12/17/16 12/17/16 12/17/16 12/18/16 12/18/16 12/18/16 07:00 15:00 23:00 07:00 15:00 23:00 Intake Total 400 ml 240 ml 480 ml 480 ml Balance 400 ml 240 ml 480 ml 480 ml Intake Oral 400 ml 240 ml 480 ml 480 ml # Voids 4 5 2 2 # Bowel Movements 0 3 0 Laboratory Laboratory Tests Test 12/17/16 12/17/16 12/18/16 19:40 19:49 14:30 White Blood Count 8.4 Red Blood Count 3.39 Hemoglobin 10.1 Hematocrit 29.9 Mean Corpuscular Volume 88.2 Mean Corpuscular Hemoglobin 29.9 Mean Corpuscular Hemoglobin 33.8 Concent Red Cell Distribution Width 17.2 Platelet Count 168 Mean Platelet Volume 9.2 Prothrombin Time 14.4 Prothromb Time International 1.3 Ratio Ammonia 32 Total Protein 7.3 Peritoneal Fluid WBC 369 Peritoneal Fluid RBC 101 Peritoneal Fluid Neutrophils 21 Peritoneal Fluid Lymphocytes 26 Peritoneal Fluid Monocytes 32 Peritoneal Fluid Mesothelial 4 Cells Peritoneal Fluid Histiocytes 17 Peritoneal Fluid Total Protein 1.2 Peritoneal Fluid Albumin 0.6 Peritoneal Fluid LDH 44 Peritoneal Fluid Glucose 120 Date/Time Procedure Status Source Growth 12/18/16 14:30 Gram Stain Received Fluid Peritoneal Fluid Pending 12/18/16 14:30 Body Fluid Culture Received Fluid Peritoneal Fluid Pending 12/17/16 14:11 Aerobic Blood Culture - Preliminary Resulted Blood Peripheral NO GROWTH IN 1 DAY 12/17/16 14:11 Anaerobic Blood Culture - Preliminary Resulted Blood Peripheral NO GROWTH IN 1 DAY 12/15/16 17:35 Urine Culture - Final Complete Urine Catheterized Urine Escherichia Coli Esbl Positive Imaging Last Impressions Cyst Biopsy Asp-Paracentesis US 12/18/16 0000 Signed Impressions: Service Date/Time: Sunday, December 18, 2016 14:11 - CONCLUSION: Uncomplicated ultrasound guided paracentesis. Long Bella MD FACR Abdomen Ultrasound 12/18/16 0000 Signed Impressions: Service Date/Time: Sunday, December 18, 2016 08:50 - CONCLUSION: 1. Spectrum of findings characteristic of hepatic cirrhosis with a lobulated, echogenic liver , diffuse ascites, splenomegaly and a thrombosed main portal vein and periportal collaterals. 2. Sludge filled gallbladder. Catarino Amador MD Chest X-Ray 12/17/16 0000 Signed Impressions: Service Date/Time: November 12:09 - CONCLUSION: Right perihilar atelectasis. Avni Soto MD Physical Exam HEENT: Normocephalic; atraumatic; no jaundice. CHEST: CTA CARDIAC: RRR ABDOMEN: Soft, mild to moderate ascites, mild tenderness; hepatosplenomegaly; bowel sounds are present in all four quadrants. EXTREMITIES: No clubbing, cyanosis, or edema. SKIN: Normal; no rash; no jaundice. GRIP WRAPPER: Lethargic, oriented. Assessment and Plan Plan ASSESSMENT: - Recurrent ascites. S/P US guided paracentesis with removal of 5,000cc (12/18/16 ). Lasix, Spironolactone, Albumin - Hx GI bleed. S/P EGD (12/02/16)-----> 1. Portal hypertensive gastropathy was found in the gastric fundus 2. Old blood 3. Retroflexed views revealed no abnormalities. No active bleeding. HH stable .09/27.9. PPI. - Anemia. HH stable .09/27.9. No active bleeding. - Liver cirrhosis, portal htn, LFT stable. Propanolol - DM, HTN, per primary PLAN: - JEREMY- 2gram sodium diet - Cont. Lasix - Cont. Spironolactone - Cont. Albumin - Cont. PPI - Monitor labs - Recommend avoiding toradol given his portal gastropathy, cirrhosis, recent gib - Supportive care - Further recommendations to follow based on results of above - Pt seen and examined by Dr. Minor and myself and this note is written on her behalf Yumiko Vale Dec 18, 2016 17:41
[2016-12-18] MEDS: MORPHINE SULFATE 4 MG/ML INJ IV PRN (18:06)
[2016-12-18 18:51] LABS: HEMATOCRIT 34.6 % (39.0-51.0); MEAN CELL VOLUME 89.2 FL (80.0-100.0); MEAN CORPUSCULAR HEMOGLOBIN 28.8 PG (27.0-34.0); MEAN CORPUSCULAR HGB CONC 32.3 % (32.0-36.0); PLATELET COUNT 154 TH/MM3 (150-450); RED BLOOD COUNT 3.88 MIL/MM3 (4.50-5.90); RED CELL DISTRIBUTION WIDTH 17.8 % (11.6-17.2); REVIEW FLAG FINAL; WHITE BLOOD COUNT 7.4 TH/MM3 (4.0-11.0)
[2016-12-18 19:10] LABS: BICARBONATE 25.9 MEQ/L (21.0-32.0); POTASSIUM 3.5 MEQ/L (3.5-5.1)
[2016-12-18] MEDS: PANTOPRAZOLE SOD 40 MG DELAYED RELEASE TAB PO SCH (21:47)
[2016-12-19] VITALS: BP 129/69; PULSE 61; RESP 18; TEMP 96; O2SAT 98
[2016-12-19] MEDS: MORPHINE SULFATE 15 MG TAB PO PRN ×3 (01:35→21:26)
[2016-12-19 04:00] VITALS: BP 151/67; PULSE 63; RESP 20; TEMP 96.6; O2SAT 97
[2016-12-19] MEDS: CHLORHEXIDINE GLUCONATE 2 % 1 PACK (2 CLOTHS) TOP SCH (04:00)
[2016-12-19] MEDS: MEROPENEM INJ 500 MG in SODIUM CHLORIDE 0.9% INJ 100 ML IV SCH ×3 (06:00→21:20)
[2016-12-19] MEDS: METOCLOPRAMIDE HCL 10 MG/2 ML VIAL IV PUSH SCH ×3 (06:12→21:21)
[2016-12-19] MEDS: PROPRANOLOL HCL 10 MG TAB PO SCH ×3 (06:12→21:21)
[2016-12-19] MEDS: ALBUMIN HUMAN 25% 25 GM/100 ML BAGP IV SCH ×2 (06:12→15:38)
[2016-12-19] MEDS: LOW DOSE INSULIN NOVOLIN REGULAR SUPPLEMENTAL SCALE SQ SCH ×4 (06:14→21:00)
[2016-12-19 07:59] LABS: HEMATOCRIT 27.7 % (39.0-51.0); MEAN CELL VOLUME 88.6 FL (80.0-100.0); MEAN CORPUSCULAR HEMOGLOBIN 28.7 PG (27.0-34.0); MEAN CORPUSCULAR HGB CONC 32.4 % (32.0-36.0); PLATELET COUNT 125 TH/MM3 (150-450); RED BLOOD COUNT 3.13 MIL/MM3 (4.50-5.90); RED CELL DISTRIBUTION WIDTH 17.3 % (11.6-17.2); REVIEW FLAG FINAL; WHITE BLOOD COUNT 3.8 TH/MM3 (4.0-11.0)
[2016-12-19 08:14] VITALS: BP 159/79; PULSE 54; RESP 18; TEMP 95.9; O2SAT 98
[2016-12-19 08:33] LABS: BICARBONATE 27.4 MEQ/L (21.0-32.0); MAGNESIUM 1.5 MG/DL (1.5-2.5); POTASSIUM 3.4 MEQ/L (3.5-5.1)
[2016-12-19] MEDS: REMOVE OLD PATCH T-DERMAL SCH (09:00)
[2016-12-19] MEDS: BENEPROTEIN POWDER 1 PACK G-TUBE SCH ×3 (09:00→16:56)
[2016-12-19] MEDS: NICOTINE 21 MG/24 HR PATCH T-DERMAL SCH (10:08)
[2016-12-19] MEDS: LACTULOSE SYRUP 20 GM/30 ML CUP PO SCH ×4 (10:08→21:21)
[2016-12-19] MEDS: PANTOPRAZOLE SOD 40 MG DELAYED RELEASE TAB PO SCH ×2 (10:08→21:21)
[2016-12-19] MEDS: SPIRONOLACTONE 50 MG TAB PO SCH (10:09)
[2016-12-19] MEDS: THIAMINE HCL 100 MG TAB PO SCH (10:09)
[2016-12-19] MEDS: TAMSULOSIN HCL 0.4 MG CAP PO SCH (10:09)
[2016-12-19] MEDS: RIFAXIMIN 550 MG TAB PO SCH ×2 (10:09→21:21)
[2016-12-19] MEDS: FUROSEMIDE 20 MG/2 ML VIAL IV PUSH SCH ×2 (10:09→17:50)
[2016-12-19] MEDS: SODIUM CHLORIDE 0.9% FLUSH 10 ML FLUSH SCH ×2 (10:10→21:00)
--- NOTE | 2016-12-19 10:39 | HHI.PR ---
Subjective Remarks awake speech slow, clear no acute agitation noted, Ambulating in room and sitting up in chair UTI ESBL afebrile (Claudia Michael) Objective Objective Results - Vital Signs Date Time Temp Pulse Resp B/P Pulse Ox O2 Delivery O2 Flow Rate FiO2 12/19/16 08:14 95.9 54 18 159/79 98 12/19/16 04:00 96.6 63 20 151/67 97 12/19/16 00:00 96.0 61 18 129/69 98 12/18/16 20:00 97.3 68 18 158/72 99 12/18/16 19:30 Room Air 12/18/16 18:02 153/82 12/18/16 16:17 97.0 62 18 190/90 96 12/18/16 14:15 98.0 62 18 139/70 94 12/18/16 12:47 96.7 64 18 158/72 97 12/18/16 11:23 Room Air I/O 12/18/16 12/18/16 12/18/16 12/19/16 12/19/16 12/19/16 07:00 15:00 23:00 07:00 15:00 23:00 Intake Total 480 ml 471 ml 578 ml Balance 480 ml 471 ml 578 ml Intake Oral 480 ml 120 ml IV Total 471 ml 358 ml Albumin 100 ml # Voids 2 2 5 # Bowel Movements 0 0 (Claudia Michael) Result Diagram: 12/19/16 0736 12/19/16 0736 ROS General: Weakness (gradual improving), Other (10 point ROS done positives noted otherwise systems unremarkable) Pulmonary: Cough, SOB (mild improved) GI: Other (abdominal distention, improved paracentesis yesterday, removed approximately 5 L) /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 He is alert and awake, feeling better HEAD: Normocephalic without any lesion or mass noted. Facial features appear symmetric. OROPHARYNGEAL: Oropharynx without erythema or edema. NECK: Supple. No nuchal rigidity or lymphadenopathy. Trachea midline without deviation. CARDIAC: Regular rhythm, regular rate, S1 and S2 LUNGS: Clear to auscultation bilaterally. No wheeze, no rhonchi No shortness of breath at rest ABDOMEN: taut, nontender, Bowel sounds are heard in all four quadrants. EXTREMITIES: No edema. Moves all extremities with purpose NEUROLOGICAL: Patient mood and affect appropriate. No focal deficit SKIN:Warm and moist Objective Remarks I'm really hoping to go home soon (Claudia Michael) A/P Assessment and Plan Labs reviewed hemoglobin currently 9 Hypokalemia, added potassium 25 mEq 1, will check K in the morning -HH stable, no acute upper bleeding -GIn signed off, -PPI - Anemia secondary to blood loss, and chronic disease monitor Hepatic encephalopathy,, non agitation, alert, cooperative neuro checks stable medical management peritoneal fluid for cytology pending Paracentesis done on 421, approximately 5 L removed Respiratory failure, now resolved. Monitor sats DuoNeb's as needed, no SOB noted SCDs for DVT prophylaxis, no pharmacological DVT due to active GI bleeding Protonix for GI prophylaxis Tobacco cravings, Added Nicotine patch UTI , + ESBL. Hematuria subsided Rosado catheter out several days ag -cultures done, follow up results, pending. -ID input appreciated. -Continue Meropenem IV, will verify time frame C/O back pain, chronic, has peripheral neuopathy Toradol PRN DC planning, possible [facility], pending, will need contact isolation for ESBL Will check treatment needs for IV meropenem, ESBL ,Escherichia coli Patient's debility is showing gradual improvement. Would like to go home if at all possible Worried about his PET, and states he has good neighbors to assist if needed. D/W RN D/W Dr. Polanco, seen on his behalf D/W CM Discharge Planning Home versus, rehabilitation rehabilitation SNF Discussed With: Nurse, Family, Other (Dr. Polanco, seen on his behalf) (Claudia Michael) Assessment and Plan seen, examined by myself, Dr Polanco, today Discussed with patient, he wants to go home He needs to go to rehabilitation, he needs close observation to finish his IV antibiotics Discussed with mid level provider The exam, history, and the medical decision-making described in the above note were completed with the assistance of the mid-level provider. I reviewed the findings presented. I attest that I had a [id number] encounter with the patient on the same day, and personally performed and documented my assessment and findings in the medical record. (Sofia Polanco MD) Claudia Michael Dec 19, 2016 10:39 Sofia Polanco MD Dec 19, 2016 17:24
[2016-12-19] MEDS ORDERED: POTASSIUM CHLORIDE 25 MEQ EFFERVESCENT TAB PO ONE (11:00)
[2016-12-19 12:00] VITALS: BP 156/76; PULSE 54; RESP 18; TEMP 95; O2SAT 96
[2016-12-19 16:04] LABS: BACTERIA, URINE RARE /hpf; BLOOD, URINE NEG (NEG); COMMENT (UR) CULT NOT INDICATED; CULTURE IF INDICATED CULT NOT INDICATED; GLUCOSE,URINE NEG (NEG); HYALINE CAST, URINE 4 /lpf (RARE); KETONE, URINE NEG (NEG); NITRITE,URINE NEG (NEG); URINE COLOR LIGHT-YELLOW (YELLW/STRAW)
[2016-12-19 16:22] VITALS: BP 161/76; PULSE 62; RESP 18; TEMP 95.6; O2SAT 99
[2016-12-19 20:00] VITALS: BP 114/65; PULSE 55; RESP 18; TEMP 96.3; O2SAT 96
[2016-12-20] VITALS: BP 118/79; PULSE 63; RESP 18; TEMP 96.8; O2SAT 96
[2016-12-20 04:00] VITALS: BP 109/62; PULSE 58; RESP 18; TEMP 96.6; O2SAT 96
[2016-12-20] MEDS: CHLORHEXIDINE GLUCONATE 2 % 1 PACK (2 CLOTHS) TOP SCH (04:00)
[2016-12-20] MEDS: PROPRANOLOL HCL 10 MG TAB PO SCH ×3 (06:01→21:03)
[2016-12-20] MEDS: METOCLOPRAMIDE HCL 10 MG/2 ML VIAL IV PUSH SCH ×3 (06:01→21:02)
[2016-12-20] MEDS: ALBUMIN HUMAN 25% 25 GM/100 ML BAGP IV SCH ×2 (06:02→16:14)
[2016-12-20] MEDS: MEROPENEM INJ 500 MG in SODIUM CHLORIDE 0.9% INJ 100 ML IV SCH ×2 (06:02→12:59)
[2016-12-20] MEDS: LOW DOSE INSULIN NOVOLIN REGULAR SUPPLEMENTAL SCALE SQ SCH ×4 (06:04→21:00)
[2016-12-20] MEDS: THIAMINE HCL 100 MG TAB PO SCH (08:22)
[2016-12-20] MEDS: RIFAXIMIN 550 MG TAB PO SCH ×2 (08:22→21:03)
[2016-12-20] MEDS: LACTULOSE SYRUP 20 GM/30 ML CUP PO SCH ×4 (08:22→21:01)
[2016-12-20] MEDS: MORPHINE SULFATE 15 MG TAB PO PRN ×3 (08:22→21:03)
[2016-12-20] MEDS: SPIRONOLACTONE 50 MG TAB PO SCH (08:22)
[2016-12-20] MEDS: FUROSEMIDE 20 MG/2 ML VIAL IV PUSH SCH (08:23)
[2016-12-20] MEDS: TAMSULOSIN HCL 0.4 MG CAP PO SCH (08:23)
[2016-12-20] MEDS: PANTOPRAZOLE SOD 40 MG DELAYED RELEASE TAB PO SCH ×2 (08:23→21:03)
[2016-12-20] MEDS: REMOVE OLD PATCH T-DERMAL SCH (08:24)
[2016-12-20] MEDS: SODIUM CHLORIDE 0.9% FLUSH 10 ML FLUSH SCH ×2 (08:24→21:00)
[2016-12-20] MEDS: BENEPROTEIN POWDER 1 PACK G-TUBE SCH ×3 (08:25→16:14)
[2016-12-20] MEDS: NICOTINE 21 MG/24 HR PATCH T-DERMAL SCH (08:25)
[2016-12-20 08:42] VITALS: BP 153/79; PULSE 56; RESP 18; TEMP 96.6; O2SAT 99
--- NOTE | 2016-12-20 11:59 | HHI.PR ---
Subjective Remarks awake, oriented speech, clear no acute agitation noted, Ambulating in room and sitting up in chair, out of rm. some ambulating almost independently with supervision only UTI ESBL afebrile Objective Objective Results - Vital Signs Date Time Temp Pulse Resp B/P Pulse Ox O2 Delivery O2 Flow Rate FiO2 12/20/16 09:39 18 12/20/16 08:42 96.6 56 18 153/79 99 12/20/16 04:00 96.6 58 18 109/62 96 12/20/16 00:00 96.8 63 18 118/79 96 12/19/16 20:00 96.3 55 18 114/65 96 12/19/16 16:22 95.6 62 18 161/76 99 12/19/16 12:00 95.0 54 18 156/76 96 I/O 12/19/16 12/19/16 12/19/16 12/20/16 12/20/16 12/20/16 07:00 15:00 23:00 07:00 15:00 23:00 Intake Total 578 ml 480 ml Balance 578 ml 480 ml Intake Oral 120 ml 480 ml IV Total 358 ml Albumin 100 ml # Voids 5 2 2 4 # Bowel Movements 0 Result Diagram: 12/19/16 0736 12/20/16 0724 ROS General: Fatigue, Weakness (debility mild, improving daily), Other (10 point ROS done. 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 He is alert and awake, HEAD: Normocephalic without any lesion or mass noted. Facial features appear symmetric. sclera mild yellow OROPHARYNGEAL: Oropharynx without erythema or edema. NECK: Supple. No nuchal rigidity or lymphadenopathy. Trachea midline without deviation. CARDIAC: Regular rhythm, regular rate, S1 and S2 are heard. Murmur none no gallops or rubs. LUNGS: Clear to auscultation bilaterally. [] wheeze, [] rhonchi or [] rale. No use of accessory muscles on inspiration or expiration. ABDOMEN: taut, tympanic mild, , nontender Bowel sounds are heard in all four quadrants. EXTREMITIES: no edema. Pulses equal bilateral. NEUROLOGICAL: Patient mood and affect appropriate. No focal deficit SKIN:Warm and moist Objective Remarks Im doing better every day A/P Assessment and Plan Labs reviewed , check CBC am Hypokalemia, still at 3.4, recieves PO lasix daily, 50 meq today, daily dose of 25meq -HH stable, no acute upper bleeding -GIn signed off, -PPI - Anemia secondary to blood loss, and chronic disease monitor, stable Hepatic encephalopathy,, non agitation, alert, cooperative neuro checks stable medical management peritoneal fluid for cytology pending Paracentesis done on 421, approximately 5 L removed debility, improving everyday.patient is ambulating up in , supervision only most of time. Fall precautions. SCDs for DVT prophylaxis, no pharmacological DVT due to active GI bleeding Protonix for GI prophylaxis Tobacco cravings, Added Nicotine patch, helping UTI , + ESBL. urine in urinal now yellow, clear. No dysuria -ID input appreciated. -Continue Meropenem IV, will verify time frame C/O back pain, chronic, has peripheral neuopathy Toradol PRN DC planning, possible [facility] , SNF, pending, will need contact isolation for ESBL Will check treatment needs for IV meropenem, ESBL ,Escherichia coli Patient's debility is showing gradual improvement, ambulating supervision most of the time. Would like to go home if at all possible Worried about his PET, and states he has good neighbors to assist if needed. D/W RN D/W Dr. Polanco, seen on his behalf D/W patient Discharge Planning Home versus, rehabilitation rehabilitation SNF Discussed With: Nurse, Family, Other (Dr. Polanco, seen on his behalf) Claudia Michael Dec 20, 2016 11:59
[2016-12-20] MEDS ORDERED: POTASSIUM CHLORIDE 25 MEQ EFFERVESCENT TAB PO ONE (12:00)
[2016-12-20 12:13] VITALS: BP 156/84; PULSE 64; RESP 18; TEMP 96.7; O2SAT 96
[2016-12-20] MEDS ORDERED: ASP: Documented ESBL, MDR A baumannii or P. aeruginosa PRN (15:00)
[2016-12-20] MEDS ORDERED: MISCELLANEOUS PHARMACY INFORMATION XX PRN (15:00)
--- NOTE | 2016-12-20 15:01 | HHI.IDPN ---
Subjective Subjective Remarks ID COVERAGE is a 56 y.o CM who was admitted on 12/02/16 for acute onset GI bleed that started a day prior to admission. Reported bloody vomitus 5 times a day prior to admission along with melanotic stools. The patient has a history of GI bleeds previously related to cirrhosis and varices, last in September requiring a blood transfusion. He reports that he has a follow-up plan with his admissions dean for endoscopy in the week of admission. The patient became concerned when he began to feel lightheaded, dizzy, weak with standing. He also has h/o Hep C and was on treatment details not known. He was visiting and camping in [place] last month and he reports that while in [place] he did have abdominal distention and 2 L of ascitic fluid was removed from his abdomen. The patient denies any recent fevers, cough, congestion, neck pain, chest pain, shortness of breath, abdominal pain, urinary symptoms, or other neurologic symptoms. On 12/03/2016 patient had an EGD and too much blood in stomach so patient was intubated and left intubated post procedure. EGD on 12/03/16 showed portal gastropathy, gastric fundus a single small varix in the distal esophagus which was not bleeding. Patient was extubated on 12/05/16 but neede Precedex in post extubation period. Had large volume paracentesis 5.2 L removed. Notes reviewed No fever Sates he is voiding ok UC with E coli ESBL+ Repeat UA normal Imaging studies no hydro No rash No diarrhea Antibiotics Meropenem IV Lines Line sites with no e.o infection Past Medical History reviewed Allergies: Coded Allergies: Neosporin (Verified Allergy, Mild, 12/01/16) Polysporin (Verified Allergy, Mild, RASH, 12/01/16) *MDRO Multi-Drug Resistant Organism (Verified Adverse Reaction, Unknown, ) ESBL E. coli (urine) - 12/15/16 Objective . Vital Signs Date Time Temp Pulse Resp B/P Pulse Ox O2 Delivery O2 Flow Rate FiO2 12/20/16 12:13 96.7 64 18 156/84 96 12/20/16 09:39 18 12/20/16 08:42 96.6 56 18 153/79 99 12/20/16 04:00 96.6 58 18 109/62 96 12/20/16 00:00 96.8 63 18 118/79 96 12/19/16 20:00 96.3 55 18 114/65 96 12/19/16 16:22 95.6 62 18 161/76 99 12/19/16 12/19/16 12/20/16 15:00 23:00 07:00 Intake Total 480 ml Balance 480 ml Intake Oral 480 ml # Voids 2 2 4 . Laboratory Tests Test 12/18/16 12/19/16 18:30 07:36 White Blood Count 7.4 TH/MM3 3.8 TH/MM3 Red Blood Count 3.88 MIL/MM3 3.13 MIL/MM3 Hemoglobin 11.2 GM/DL 9.0 GM/DL Hematocrit 34.6 % 27.7 % Mean Corpuscular Volume 89.2 FL 88.6 FL Mean Corpuscular Hemoglobin 28.8 PG 28.7 PG Mean Corpuscular Hemoglobin 32.3 % 32.4 % Concent Red Cell Distribution Width 17.8 % 17.3 % Platelet Count 154 TH/MM3 125 TH/MM3 Mean Platelet Volume 8.8 FL 8.7 FL Laboratory Tests Test 12/18/16 12/18/16 12/19/16 12/20/16 18:30 18:34 07:36 07:24 Sodium Level 137 MEQ/L 139 MEQ/L Potassium Level 3.5 MEQ/L 3.4 MEQ/L 3.4 MEQ/L Chloride Level 102 MEQ/L 106 MEQ/L Carbon Dioxide Level 25.9 MEQ/L 27.4 MEQ/L Anion Gap 9 MEQ/L 6 MEQ/L Blood Urea Nitrogen 9 MG/DL 10 MG/DL Creatinine 0.86 MG/DL 0.60 MG/DL Estimat Glomerular Filtration 92 ML/MIN 139 ML/MIN Rate Random Glucose 213 MG/DL 162 MG/DL Calcium Level 8.3 MG/DL 8.0 MG/DL Ammonia 23 MCMOL/L Magnesium Level 1.5 MG/DL Microbiology Date/Time Procedure Status Source Growth 12/18/16 14:30 Gram Stain - Final Resulted Fluid Peritoneal Fluid 12/18/16 14:30 Body Fluid Culture - Preliminary Resulted Fluid Peritoneal Fluid NO GROWTH IN 48 HOURS. Imaging Last Impressions Chest X-Ray 12/17/16 0000 Signed Impressions: Service Date/Time: November 12:09 - CONCLUSION: Right perihilar atelectasis. Avni Soto MD Physical Exam GENERAL: Awake and alert NAD SKIN: No rashes, ecchymoses or lesions. Cool and dry. HEAD: Atraumatic. Normocephalic. No temporal or scalp tenderness. EYES: Pupils equal round and reactive. Extraocular motions intact. No scleral icterus. No injection or drainage. ENT: Nose without bleeding, purulent drainage. Moist mucosa. NECK: Trachea midline. Supple, nontender, no meningeal signs. CARDIOVASCULAR: RRR, ? systolic murmur. RESPIRATORY: Clear to auscultation. Breath sounds equal bilaterally. GASTROINTESTINAL: Abdomen soft, not tender, mildly distended. MUSCULOSKELETAL: Extremities without clubbing, cyanosis, or edema. No joint tenderness, effusion, or edema noted. No calf tenderness. NEUROLOGICAL: Awake and alert. Confused. Follows simple commands. No obvious focal deficits. Psych: cooperative IV line sites with no e.o infection. Assessment & Plan Remarks Sepsis new onset (fever in an Immune compromised patient) ESBL positive E.coli Cath associated UTI (had an indwelling catheter removed on day of culture) ?Aspiration Pneumonia in setting of altered mental status. Acute metabolic encephalopathy; infection, liver issues. Liver Cirrhosis with portal gastropathy and GI bleed on admission. Ascites ? SBP Thrombocytopenia: sepsis, possible liver cirrhosis. Will check HIV and Hepatitis profile. H/o Hep C reportedly on treatment prior to admission. Recs: Change to Invanz Follow cultures Follow clinically. Ava Durán MD Dec 20, 2016 15:01
[2016-12-20 16:34] VITALS: BP 145/79; PULSE 58; RESP 19; TEMP 96.2; O2SAT 99
[2016-12-20] MEDS: FUROSEMIDE 40 MG TAB PO SCH (18:15)
[2016-12-20 20:00] VITALS: BP 112/53; PULSE 57; RESP 24; TEMP 98.7; O2SAT 93
[2016-12-20] MEDS: ERTAPENEM INJ 1,000 MG in SODIUM CHLORIDE 0.9% INJ 100 ML IV SCH (21:01)
[2016-12-20] MEDS: SPIRONOLACTONE 100 MG TAB PO SCH (21:03)
[2016-12-21 04:00] VITALS: BP 142/76; PULSE 62; RESP 18; TEMP 95.5; O2SAT 98
[2016-12-21] MEDS: CHLORHEXIDINE GLUCONATE 2 % 1 PACK (2 CLOTHS) TOP SCH (04:00)
[2016-12-21] MEDS: PROPRANOLOL HCL 10 MG TAB PO SCH ×3 (06:20→22:40)
[2016-12-21] MEDS: ALBUMIN HUMAN 25% 25 GM/100 ML BAGP IV SCH ×2 (06:20→16:58)
[2016-12-21] MEDS: METOCLOPRAMIDE HCL 10 MG/2 ML VIAL IV PUSH SCH ×3 (06:20→22:39)
[2016-12-21] MEDS: LOW DOSE INSULIN NOVOLIN REGULAR SUPPLEMENTAL SCALE SQ SCH ×4 (07:00→21:00)
[2016-12-21 08:37] VITALS: BP 169/81; PULSE 62; RESP 20; TEMP 98.1; O2SAT 96
[2016-12-21] MEDS: NICOTINE 21 MG/24 HR PATCH T-DERMAL SCH (09:00)
[2016-12-21] MEDS ORDERED: POTASSIUM CHLORIDE 20 MEQ CONTROLLED RELEASE TAB PO SCH (09:00)
[2016-12-21] MEDS: SODIUM CHLORIDE 0.9% FLUSH 10 ML FLUSH SCH ×2 (09:00→22:41)
[2016-12-21] MEDS: REMOVE OLD PATCH T-DERMAL SCH (09:00)
[2016-12-21] MEDS: FUROSEMIDE 40 MG TAB PO SCH ×2 (09:22→16:58)
[2016-12-21] MEDS: RIFAXIMIN 550 MG TAB PO SCH ×2 (09:22→22:40)
[2016-12-21] MEDS: POTASSIUM CHLORIDE 25 MEQ EFFERVESCENT TAB NG SCH (09:22)
[2016-12-21] MEDS: TAMSULOSIN HCL 0.4 MG CAP PO SCH (09:23)
[2016-12-21] MEDS: SPIRONOLACTONE 100 MG TAB PO SCH ×2 (09:23→22:40)
[2016-12-21] MEDS: THIAMINE HCL 100 MG TAB PO SCH (09:23)
[2016-12-21] MEDS: LACTULOSE SYRUP 20 GM/30 ML CUP PO SCH ×4 (09:24→21:00)
[2016-12-21] MEDS: PANTOPRAZOLE SOD 40 MG DELAYED RELEASE TAB PO SCH ×2 (09:24→22:40)
[2016-12-21 10:53] LABS: HEMATOCRIT 31.3 % (39.0-51.0); MEAN CELL VOLUME 88.8 FL (80.0-100.0); MEAN CORPUSCULAR HEMOGLOBIN 28.6 PG (27.0-34.0); MEAN CORPUSCULAR HGB CONC 32.2 % (32.0-36.0); PLATELET COUNT 142 TH/MM3 (150-450); RED BLOOD COUNT 3.52 MIL/MM3 (4.50-5.90); REVIEW FLAG FINAL
[2016-12-21 11:09] LABS: BICARBONATE 29.1 MEQ/L (21.0-32.0)
[2016-12-21 11:10] LABS: POTASSIUM 4.3 MEQ/L (3.5-5.1)
--- NOTE | 2016-12-21 11:21 | HHI.PR ---
Subjective Remarks awake, oriented speech, clear no acute agitation noted, Ambulating in room and sitting up in chair, out of rm. some, PT walking with him UTI ESBL afebrile (Claudia Michael) Objective Objective Results - Vital Signs Date Time Temp Pulse Resp B/P Pulse Ox O2 Delivery O2 Flow Rate FiO2 12/21/16 09:33 Room Air 12/21/16 08:37 98.1 62 20 169/81 96 12/21/16 04:00 95.5 62 18 142/76 98 12/21/16 04:00 95.5 62 18 142/76 98 12/20/16 20:00 98.7 57 24 112/53 93 12/20/16 17:27 20 12/20/16 16:34 96.2 58 19 145/79 99 12/20/16 12:13 96.7 64 18 156/84 96 I/O 12/20/16 12/20/16 12/20/16 12/21/16 12/21/16 12/21/16 07:00 15:00 23:00 07:00 15:00 23:00 Intake Total 480 ml 240 ml Balance 480 ml 240 ml Intake Oral 480 ml 240 ml # Voids 4 4 (Claudia Michael) Result Diagram: 12/21/16 1017 12/20/16 0724 ROS General: Weakness (resolving), Other (10 point ROS done, positives noted generalized weakness but improving, UTI ESBL, now on IV Invanz, isolation, bowel regimen other systems negative or unremarkable) GI: Other (abdominal distention stable) /COOK TACO: Dysuria (UTI, ESBL, IV antibiotics) (Claudia Michael) Physical Exam Physical Exam PHYSICAL EXAMINATION GENERAL: This is a thin, male who appears to be in no acute distress. He is alert and awake, HEAD: Normocephalic without any lesion or mass noted. Facial features appear symmetric. Mild scleral icterus OROPHARYNGEAL: Oropharynx without erythema or edema. NECK: Supple. No nuchal rigidity or lymphadenopathy. Trachea midline without deviation. CARDIAC: Regular rhythm, regular rate, S1 and S2 are heard LUNGS: Clear to auscultation bilaterally. no wheeze, no rhonchi No use of accessory muscles on inspiration or expiration. ABDOMEN: Soft, nontender, Bowel sounds audible, mild distention EXTREMITIES: No edema. Pulses palpable NEUROLOGICAL: Patient mood and affect appropriate. SKIN:Warm and moist Objective Remarks I really wanted to home if at all possible today (Claudia Michael) A/P Assessment and Plan Labs reviewed , Hypokalemia, treated yesterday labs are still pending today, -HH stable, no acute upper bleeding -GIn signed off, -PPI - Anemia secondary to blood loss, and chronic disease monitor, stable hemoglobin Hepatic encephalopathy,, non agitation, alert, cooperative neuro checks stable medical management peritoneal fluid for cytology pending Paracentesis done on 421, approximately 5 L removed debility, improving everyday.patient is ambulating up in , supervision only most of time. Fall precautions. Patient ambulated up all without any shortness of breath, independently with observation. Should be able to go home with home health SCDs for DVT prophylaxis, no pharmacological DVT due to active GI bleeding Protonix for GI prophylaxis Tobacco cravings, Added Nicotine patch, helping UTI , + ESBL. urine in urinal now yellow, clear. No dysuria -ID input appreciated. Changed from IV meropenem to Invanz IV, will verify time frame, this will depend on patient's discharge date C/O back pain, chronic, has peripheral neuopathy Toradol PRN DC planning, probable home, patient is now walking independently with monitoring Patient lives in apartment in facility where he has support , will order home health Will need ID recommendation for antibiotics and length of time. D/W RN D/W Dr. vargas, seen on his behalf D/W patient Discussed with case management Discharge Planning Home with home health Discussed With: Nurse, Family, Other (Dr. Polanco, seen on his behalf) (Claudia Michael) Assessment and Plan pt is seen & Examined chart reviewed d/w PT d/w Claudia de la cruz w above SS for d/c planning/ may need PICC line for IV abx , will d/w ID will f/u (Tracie Vargas MD) Claudia Michael Dec 21, 2016 11:21 Tracie Vargas MD Dec 21, 2016 13:41
--- NOTE | 2016-12-21 11:23 | HHI.FF ---
Face to Face Verification Diagnosis: (1) Anemia (2) Esophageal varices (3) GI bleed (4) Ascites (5) Liver cirrhosis (6) UTI due to extended-spectrum beta lactamase (ESBL) producing Escherichia coli Physical Therapy Order: Evaluate and Treat, Improve ambulation, Strength and gait training Occupational Therapy Order: Evaluate and Treat, Improve ADL, Gross motor coordination Speech Therapy Order: To Improve: Cognitive skills Home Health Nursing Order: Nursing assessment with vital signs I have seen patient Azael Arzola on 12/21/16. My clinical findings support the need for the requested home health care services because: Deconditioned w/ increased weakness High risk of falls I certify that my clinical findings support that this patient is homebound because: Impaired cognitive ability/safety Need for psychosocial assistance Claudia Michael Dec 21, 2016 11:23
[2016-12-21 12:00] VITALS: BP 136/70; PULSE 60; RESP 20; TEMP 98.4; O2SAT 98
[2016-12-21] MEDS: cloNIDine HCL 0.3 MG/24 HR PATCH T-DERMAL SCH (12:09)
[2016-12-21] MEDS: BENEPROTEIN POWDER 1 PACK G-TUBE SCH ×3 (12:12→17:04)
[2016-12-21] MEDS: MORPHINE SULFATE 15 MG TAB PO PRN ×2 (12:13→22:56)
--- NOTE | 2016-12-21 14:00 | HHI.GIFU ---
Subjective Remarks Resting in bed. Feeling much better. No abdominal pain. Less abdominal distention. No further diarrhea. (Yumiko Vale) Objective Vitals I&O Vital Signs Date Time Temp Pulse Resp B/P Pulse Ox O2 Delivery O2 Flow Rate FiO2 12/21/16 12:00 98.4 60 20 136/70 98 12/21/16 09:33 Room Air 12/21/16 08:37 98.1 62 20 169/81 96 12/21/16 04:00 95.5 62 18 142/76 98 12/21/16 04:00 95.5 62 18 142/76 98 12/20/16 20:00 98.7 57 24 112/53 93 12/20/16 17:27 20 12/20/16 16:34 96.2 58 19 145/79 99 I/O 12/20/16 12/20/16 12/20/16 12/21/16 12/21/16 12/21/16 07:00 15:00 23:00 07:00 15:00 23:00 Intake Total 480 ml 240 ml Balance 480 ml 240 ml Intake Oral 480 ml 240 ml # Voids 4 4 # Bowel Movements 1 Laboratory Laboratory Tests Test 12/21/16 10:17 White Blood Count 3.0 Red Blood Count 3.52 Hemoglobin 10.1 Hematocrit 31.3 Mean Corpuscular Volume 88.8 Mean Corpuscular Hemoglobin 28.6 Mean Corpuscular Hemoglobin 32.2 Concent Red Cell Distribution Width 17.0 Platelet Count 142 Mean Platelet Volume 8.6 Sodium Level 136 Potassium Level 4.3 Chloride Level 99 Carbon Dioxide Level 29.1 Anion Gap 8 Blood Urea Nitrogen 7 Creatinine 0.65 Estimat Glomerular Filtration 127 Rate Random Glucose 171 Calcium Level 8.5 Date/Time Procedure Status Source Growth 12/18/16 14:30 Gram Stain - Final Complete Fluid Peritoneal Fluid 12/18/16 14:30 Body Fluid Culture - Final Complete Fluid Peritoneal Fluid NO GROWTH IN 72 HRS.--AEROBICALLY OR ... 12/17/16 14:11 Aerobic Blood Culture - Preliminary Resulted Blood Peripheral NO GROWTH IN 4 DAYS 12/17/16 14:11 Anaerobic Blood Culture - Preliminary Resulted Blood Peripheral NO GROWTH IN 4 DAYS Imaging Last Impressions Cyst Biopsy Asp-Paracentesis US 12/18/16 0000 Signed Impressions: Service Date/Time: Sunday, December 18, 2016 14:11 - CONCLUSION: Uncomplicated ultrasound guided paracentesis. Long Bella MD FACR Abdomen Ultrasound 12/18/16 0000 Signed Impressions: Service Date/Time: Sunday, December 18, 2016 08:50 - CONCLUSION: 1. Spectrum of findings characteristic of hepatic cirrhosis with a lobulated, echogenic liver , diffuse ascites, splenomegaly and a thrombosed main portal vein and periportal collaterals. 2. Sludge filled gallbladder. Catarino Amador MD Chest X-Ray 12/17/16 0000 Signed Impressions: Service Date/Time: November 12:09 - CONCLUSION: Right perihilar atelectasis. Avni Soto MD Physical Exam HEENT: Normocephalic; atraumatic; no jaundice. CHEST: CTA CARDIAC: RRR ABDOMEN: Soft, mild ascites, mild tenderness; hepatosplenomegaly; bowel sounds are present in all four quadrants. EXTREMITIES: No clubbing, cyanosis, or edema. SKIN: Normal; no rash; no jaundice. MOLECULAR BIOLOGIST: Lethargic, oriented. (Yumiko Vale) Assessment and Plan Plan ASSESSMENT: - Recurrent ascites. S/P US guided paracentesis with removal of 5,000cc (12/18/16 ). Lasix, Spironolactone, Albumin. Much improved. Ascites much improved. - Hx GI bleed. S/P EGD (12/02/16)-----> 1. Portal hypertensive gastropathy was found in the gastric fundus 2. Old blood 3. Retroflexed views revealed no abnormalities. No active bleeding. HH stable 10.1/31.3 PPI. - Anemia. HH stable 10.1/29.9. No active bleeding. - Liver cirrhosis, portal htn, LFT stable. Propanolol - DM, HTN, per primary PLAN: - JEREMY- 2gram sodium diet - Cont. Lasix - Cont. Spironolactone - D/C ALbumin - Cont. PPI - Monitor labs - Recommend avoiding toradol given his portal gastropathy, cirrhosis, recent gib - Supportive care - Further recommendations to follow based on results of above - Pt seen and examined by Dr. Menon and myself and this note is written on his behalf (Yumiko Vale) Physician Comments Patient seen and examined Agree with above Continue with current supportive care Monitor labs (Romeo Menon MD) Yumiko Vale Dec 21, 2016 14:00 Romeo Menon MD Dec 22, 2016 00:08
--- NOTE | 2016-12-21 14:15 | HHI.IDPN ---
Subjective Subjective Remarks ID COVERAGE is a 56 y.o CM who was admitted on 12/02/16 for acute onset GI bleed that started a day prior to admission. Reported bloody vomitus 5 times a day prior to admission along with melanotic stools. The patient has a history of GI bleeds previously related to cirrhosis and varices, last in September requiring a blood transfusion. 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 The patient became concerned when he began to feel lightheaded, dizzy, weak with standing. He also has h/o Hep C and was on treatment details not known. He was visiting and camping in [place] last month and he reports that while in [place] he did have abdominal distention and 2 L of ascitic fluid was removed from his abdomen. The patient denies any recent fevers, cough, congestion, neck pain, chest pain, shortness of breath, abdominal pain, urinary symptoms, or other neurologic symptoms. On 12/03/2016 patient had an EGD and too much blood in stomach so patient was intubated and left intubated post procedure. EGD on 12/03/16 showed portal gastropathy, gastric fundus a single small varix in the distal esophagus which was not bleeding. Patient was extubated on 12/05/16 but neede Precedex in post extubation period. Had large volume paracentesis 5.2 L removed. Notes reviewed No fever Voiding ok No abdominal pain UC with E coli ESBL+ Repeat UA normal Imaging studies no hydro No rash No diarrhea Antibiotics Invanz IV Lines Line sites with no e.o infection Past Medical History reviewed Allergies: Coded Allergies: Neosporin (Verified Allergy, Mild, 12/01/16) Polysporin (Verified Allergy, Mild, RASH, 12/01/16) *MDRO Multi-Drug Resistant Organism (Verified Adverse Reaction, Unknown, ) ESBL E. coli (urine) - 12/15/16 Objective . Vital Signs Date Time Temp Pulse Resp B/P Pulse Ox O2 Delivery O2 Flow Rate FiO2 12/21/16 12:00 98.4 60 20 136/70 98 12/21/16 09:33 Room Air 12/21/16 08:37 98.1 62 20 169/81 96 12/21/16 04:00 95.5 62 18 142/76 98 12/21/16 04:00 95.5 62 18 142/76 98 12/20/16 20:00 98.7 57 24 112/53 93 12/20/16 17:27 20 12/20/16 16:34 96.2 58 19 145/79 99 12/20/16 12/20/16 12/21/16 15:00 23:00 07:00 Intake Total 240 ml Balance 240 ml Intake Oral 240 ml # Voids 4 . Laboratory Tests Test 12/21/16 10:17 White Blood Count 3.0 TH/MM3 Red Blood Count 3.52 MIL/MM3 Hemoglobin 10.1 GM/DL Hematocrit 31.3 % Mean Corpuscular Volume 88.8 FL Mean Corpuscular Hemoglobin 28.6 PG Mean Corpuscular Hemoglobin 32.2 % Concent Red Cell Distribution Width 17.0 % Platelet Count 142 TH/MM3 Mean Platelet Volume 8.6 FL Laboratory Tests Test 12/20/16 12/21/16 07:24 10:17 Potassium Level 3.4 MEQ/L 4.3 MEQ/L Sodium Level 136 MEQ/L Chloride Level 99 MEQ/L Carbon Dioxide Level 29.1 MEQ/L Anion Gap 8 MEQ/L Blood Urea Nitrogen 7 MG/DL Creatinine 0.65 MG/DL Estimat Glomerular Filtration 127 ML/MIN Rate Random Glucose 171 MG/DL Calcium Level 8.5 MG/DL Microbiology Date/Time Procedure Status Source Growth 12/18/16 14:30 Gram Stain - Final Complete Fluid Peritoneal Fluid 12/18/16 14:30 Body Fluid Culture - Final Complete Fluid Peritoneal Fluid NO GROWTH IN 72 HRS.--AEROBICALLY OR ... Imaging Last Impressions Chest X-Ray 12/17/16 0000 Signed Impressions: Service Date/Time: November 12:09 - CONCLUSION: Right perihilar atelectasis. Avni Soto MD Physical Exam GENERAL: Awake and alert NAD SKIN: No generalized rashes. Cool and dry. HEAD: Atraumatic. Normocephalic. No temporal or scalp tenderness. EYES: Pupils equal round and reactive. Extraocular motions intact. No scleral icterus. No injection or drainage. ENT: Nose without bleeding, purulent drainage. Moist mucosa. NECK: Trachea midline. Supple, nontender, no meningeal signs. CARDIOVASCULAR: RRR, ? systolic murmur. RESPIRATORY: Clear to auscultation. Breath sounds equal bilaterally. GASTROINTESTINAL: Abdomen soft, not tender, mildly distended. MUSCULOSKELETAL: Extremities without clubbing, cyanosis, or edema. No joint tenderness, effusion, or edema noted. No calf tenderness. NEUROLOGICAL: Awake and alert. Follows simple commands. No obvious focal deficits. Psych: cooperative IV line sites with no e.o infection. Assessment & Plan Remarks Sepsis new onset (fever in an Immune compromised patient), better ESBL positive E.coli Cath associated UTI (had an indwelling catheter removed on day of culture) ?Aspiration Pneumonia in setting of altered mental status. Acute metabolic encephalopathy; infection, liver issues. Liver Cirrhosis with portal gastropathy and GI bleed on admission. Ascites ? SBP Thrombocytopenia: sepsis, possible liver cirrhosis. Will check HIV and Hepatitis profile. H/o Hep C reportedly on treatment prior to admission. Recs: Continue Invanz - give until December 31 - ok for midline Follow cultures Follow clinically. Could make arrangements for home IV Abx or short term rehab. Patient states he lives by himself, maybe safer that home Explained plan to patient D/W Ava Rebollar MD Dec 21, 2016 14:15
[2016-12-21 17:09] VITALS: BP 120/60; PULSE 58; RESP 20; TEMP 98.5; O2SAT 94
[2016-12-21 20:26] VITALS: BP 144/70; PULSE 59; RESP 16; TEMP 98.3; O2SAT 94
[2016-12-21] MEDS: ERTAPENEM INJ 1,000 MG in SODIUM CHLORIDE 0.9% INJ 100 ML IV SCH (22:39)
[2016-12-22 01:18] VITALS: BP 130/69; PULSE 62; RESP 18; TEMP 97.9; O2SAT 94
[2016-12-22] MEDS: CHLORHEXIDINE GLUCONATE 2 % 1 PACK (2 CLOTHS) TOP SCH (04:00)
[2016-12-22 05:14] VITALS: BP 152/72; PULSE 61; RESP 18; TEMP 99; O2SAT 95
[2016-12-22] MEDS: PROPRANOLOL HCL 10 MG TAB PO SCH ×2 (05:58→13:04)
[2016-12-22] MEDS: METOCLOPRAMIDE HCL 10 MG/2 ML VIAL IV PUSH SCH ×2 (05:58→13:05)
[2016-12-22] MEDS: ALBUMIN HUMAN 25% 25 GM/100 ML BAGP IV SCH (06:05)
[2016-12-22] MEDS: LOW DOSE INSULIN NOVOLIN REGULAR SUPPLEMENTAL SCALE SQ SCH ×3 (06:13→15:53)
[2016-12-22 08:54] VITALS: BP 136/64; PULSE 56; RESP 20; TEMP 97.4; O2SAT 95
[2016-12-22] MEDS: REMOVE OLD PATCH T-DERMAL SCH (09:00)
[2016-12-22] MEDS: BENEPROTEIN POWDER 1 PACK G-TUBE SCH ×3 (09:00→17:06)
[2016-12-22] MEDS: POTASSIUM CHLORIDE 25 MEQ EFFERVESCENT TAB NG SCH (09:15)
[2016-12-22] MEDS: FUROSEMIDE 40 MG TAB PO SCH ×2 (09:16→17:11)
[2016-12-22] MEDS: PANTOPRAZOLE SOD 40 MG DELAYED RELEASE TAB PO SCH (09:16)
[2016-12-22] MEDS: MORPHINE SULFATE 15 MG TAB PO PRN ×2 (09:17→13:03)
[2016-12-22] MEDS: SPIRONOLACTONE 100 MG TAB PO SCH (09:18)
[2016-12-22] MEDS: THIAMINE HCL 100 MG TAB PO SCH (09:18)
[2016-12-22] MEDS: TAMSULOSIN HCL 0.4 MG CAP PO SCH (09:18)
[2016-12-22] MEDS: RIFAXIMIN 550 MG TAB PO SCH (09:19)
[2016-12-22] MEDS: LACTULOSE SYRUP 20 GM/30 ML CUP PO SCH ×3 (09:19→17:06)
[2016-12-22] MEDS: NICOTINE 21 MG/24 HR PATCH T-DERMAL SCH (09:20)
[2016-12-22] MEDS: SODIUM CHLORIDE 0.9% FLUSH 10 ML FLUSH SCH (09:23)
--- NOTE | 2016-12-22 11:03 | HHI.GIFU ---
Subjective Remarks Ambulating about on floor. Does seem to have a little more ascites today, although the patient swears that it is still good and "always looks like this after I eat." No fever/chills. No n/v. NO abdominal pain. (Yumiko Vale) Objective Vitals I&O Vital Signs Date Time Temp Pulse Resp B/P Pulse Ox O2 Delivery O2 Flow Rate FiO2 12/22/16 08:54 97.4 56 20 136/64 95 12/22/16 05:14 99.0 61 18 152/72 95 12/22/16 01:18 97.9 62 18 130/69 94 12/21/16 23:40 Room Air 12/21/16 20:26 98.3 59 16 144/70 94 12/21/16 17:09 98.5 58 20 120/60 94 12/21/16 12:00 98.4 60 20 136/70 98 I/O 12/21/16 12/21/16 12/21/16 12/22/16 12/22/16 12/22/16 07:00 15:00 23:00 07:00 15:00 23:00 Intake Total 720 ml Output Total 400 ml 300 ml Balance 320 ml -300 ml Intake Oral 720 ml Output Urine Total 400 ml 300 ml # Voids 3 # Bowel Movements 1 0 0 Laboratory Date/Time Procedure Status Source Growth 12/18/16 14:30 Gram Stain - Final Complete Fluid Peritoneal Fluid 12/18/16 14:30 Body Fluid Culture - Final Complete Fluid Peritoneal Fluid NO GROWTH IN 72 HRS.--AEROBICALLY OR ... 12/17/16 14:11 Aerobic Blood Culture - Preliminary Resulted Blood Peripheral NO GROWTH IN 4 DAYS 12/17/16 14:11 Anaerobic Blood Culture - Preliminary Resulted Blood Peripheral NO GROWTH IN 4 DAYS Imaging Last Impressions Cyst Biopsy Asp-Paracentesis US 12/18/16 0000 Signed Impressions: Service Date/Time: Sunday, December 18, 2016 14:11 - CONCLUSION: Uncomplicated ultrasound guided paracentesis. Long Bella MD FACR Abdomen Ultrasound 12/18/16 0000 Signed Impressions: Service Date/Time: Sunday, December 18, 2016 08:50 - CONCLUSION: 1. Spectrum of findings characteristic of hepatic cirrhosis with a lobulated, echogenic liver , diffuse ascites, splenomegaly and a thrombosed main portal vein and periportal collaterals. 2. Sludge filled gallbladder. Catarino Amador MD Chest X-Ray 12/17/16 0000 Signed Impressions: Service Date/Time: November 12:09 - CONCLUSION: Right perihilar atelectasis. Avni Soto MD Physical Exam HEENT: Normocephalic; atraumatic; no jaundice. CHEST: CTA CARDIAC: RRR ABDOMEN: Soft, mild-moderate ascites, mild tenderness; hepatosplenomegaly; bowel sounds are present in all four quadrants. EXTREMITIES: No clubbing, cyanosis, or edema. SKIN: Normal; no rash; no jaundice. SUPERINTENDENT SERVICE: Oriented to self, place and month (Yumiko Vale) Assessment and Plan Plan ASSESSMENT: - Recurrent ascites. S/P US guided paracentesis with removal of 5,000cc (12/18/16 ). Lasix, Spironolactone. Does seem to have a little more ascites today, but patient does not feel he is more distended and feels that he always gets a little bloated after eating. - Hx GI bleed. S/P EGD (12/02/16)-----> 1. Portal hypertensive gastropathy was found in the gastric fundus 2. Old blood 3. Retroflexed views revealed no abnormalities. No active bleeding. HH stable 10.1/31.3 PPI. - Anemia. HH stable 10.09/29.3. No active bleeding. - Liver cirrhosis, portal htn, LFT stable. Propanolol - DM, HTN, per primary PLAN: - JEREMY- 2gram sodium diet - Cont. Lasix - Cont. Spironolactone - Cont. PPI - Monitor labs - Supportive care - Further recommendations to follow based on results of above - Pt seen and examined by Dr. Menon and myself and this note is written on his behalf (Yumiko Vale) Physician Comments Patient seen and examined Agree with above Continue with current supportive care Monitor labs Follow-up with GI post discharge (Romeo Menon MD) Yumiko Vale Dec 22, 2016 11:03 Romeo Menon MD Dec 22, 2016 22:49
[2016-12-22] MEDS ORDERED: SOLU250I IV PUSH (12:42)
[2016-12-22] MEDS ORDERED: EPIN1INJ21 SQ (12:42)
[2016-12-22] MEDS ORDERED: EPIN1INJ21 IV PUSH (12:42)
[2016-12-22] MEDS ORDERED: INVA1INJ IV (12:44)
--- NOTE | 2016-12-22 12:45 | HHI.FF ---
Infusion Therapy Location of Infusion Therapy: Home [facility] IV Infusion Order Patient Information Appointment Date: Dec 22, 2016 Patient Weight 75 kg Diagnosis: Diagnosis ESBL E.coli catheter associated UTI Coded Allergies: Neosporin (Verified Allergy, Mild, 12/01/16) Polysporin (Verified Allergy, Mild, RASH, 12/01/16) *MDRO Multi-Drug Resistant Organism (Verified Adverse Reaction, Unknown, ) ESBL E. coli (urine) - 12/15/16 Administer Medication Ertapenem 1 gm IV daily for 6 days Start Treatment: Dec 22, 2016 Stop Treatment: December 29, 2016 Additional Information Venous access: Other (midline or PIV ) Additional Instructions [x] Peripheral flush and dressing changes per protocol [x] Implanted port and central pipeline dispatcher: * Implanted port: 10 ml Normal Saline followed by 5 ml Heparin 100 units/ml Heparin flush after each use and monthly to maintain. [] May leave port accessed during therapy. [] May leave peripheral site accessed for duration of therapy. [x] If patient has SOB or respiratory distress, check oxygen saturation. If less than 90% or clinical signs of respiratory distress, administer oxygen at 2 L/min. via nasal cannula and notify physician. [x] Anaphylaxis/Reaction orders: * Stop infusion. * Keep IV line open with saline flush. * Notify physician. * Monitor vital signs every 15 minutes until symptoms resolve. * Check Oxygen saturation; Oxygen at 2 L/min. via nasal cannula if less than 90% or clinical signs of respiratory distress. * Administer diphenhydramine (Benadryl) 25 mg IV STAT, (unless patient has received as pre-med). May repeat once, if necessary. * Solu-Cortef 250 mg IVP over 30-60 seconds, use 100 mg vials for each dissolution. * Epinephrine (1mg/1 ml) 0.3 mg subcutaneously or IVP now with any signs of respiratory distress. * Check with physician for new additional pre-med orders if patient is re- challenged or re-treated. [x] May remove PICC line when treatment complete, after confirming with Physician. [x] If the patient is admitted to the hospital, the ED, or transferred via [facility] , complete transfer form including medication reconciliation order sheet. Laboratory Tests Additional Information Call with abnormals, change in clinical condition or problems to: or covering ID physician: Follow up appt: Follow up with PCP Follow up with other MDs as planned. Counseling: Counseled about medication side effects Counseled about PICC/mid line care and hand hygiene. Faith Lee MD Dec 22, 2016 12:45
--- NOTE | 2016-12-22 12:55 | HHI.PR ---
Subjective Remarks awake, oriented speech, clear no acute agitation noted, Left arm edema, PICC line changed out yesterday UTI ESBL No acute pain or shortness of breath (Claudia Michael) Objective Objective Results - Vital Signs Date Time Temp Pulse Resp B/P Pulse Ox O2 Delivery O2 Flow Rate FiO2 12/22/16 08:54 97.4 56 20 136/64 95 12/22/16 05:14 99.0 61 18 152/72 95 12/22/16 01:18 97.9 62 18 130/69 94 12/21/16 23:40 Room Air 12/21/16 20:26 98.3 59 16 144/70 94 12/21/16 17:09 98.5 58 20 120/60 94 I/O 12/21/16 12/21/16 12/21/16 12/22/16 12/22/16 12/22/16 07:00 15:00 23:00 07:00 15:00 23:00 Intake Total 720 ml 240 ml Output Total 400 ml 300 ml 150 ml Balance 320 ml -300 ml 90 ml Intake Oral 720 ml 240 ml Output Urine Total 400 ml 300 ml 150 ml # Voids 3 # Bowel Movements 1 0 0 (Claudia Michael) Result Diagram: 12/21/16 1017 12/21/16 1017 ROS General: Fatigue, Weakness (chronic , but able to get up and move around fairly well), Other (10 point ROS done, abdomen taut, minimal to no fluid wave, other systems negative or unremarkable) /CAKE WASHER: Urgency (none) Neuro/MS: Other (left arm edema from IV site, changed, coverage patient to elevate) (Claudia Michael) Physical Exam Physical Exam PHYSICAL EXAMINATION GENERAL: This is a slim chronically ill male who appears to be in no acute distress. He is alert and awake, HEAD: Normocephalic without any lesion or mass noted. Facial features appear symmetric. OROPHARYNGEAL: Oropharynx without erythema or edema. NECK: Supple. No nuchal rigidity or lymphadenopathy. Trachea midline without deviation. CARDIAC: Regular rhythm, regular rate, S1 and S2 are heard. LUNGS: Clear to auscultation bilaterally. Low volumes, no wheeze, no rhonchi ABDOMEN: Round, taut, nontender, no organomegaly or masses. Bowel sounds are heard in all four quadrants. No rebound. No guarding. EXTREMITIES: no edema. Pulses palpable NEUROLOGICAL: Patient mood and affect appropriate. No focal deficit SKIN:Warm and moist Objective Remarks I'm really hoping to go home (Claudia Michael) A/P Assessment and Plan Labs reviewed , Hypokalemia, resolved -HH stable, no acute upper bleeding -GIn signed off, -PPI - Anemia secondary to blood loss, and chronic disease monitor, stable hemoglobin Hepatic encephalopathy,, non agitation, alert, cooperative neuro checks stable medical management peritoneal fluid for cytology pending Paracentesis done on 421, approximately 5 L removed debility, improving since last paracentesis. Patient is fall precautions but is able to ambulate fairly independently SCDs for DVT prophylaxis, no pharmacological DVT due to active GI bleeding Protonix for GI prophylaxis Tobacco cravings, Added Nicotine patch, helping UTI , + ESBL. urine in urinal now yellow, clear. No dysuria -ID input appreciated. Spoke today concerning discharge planning and time frame on IV antibiotics Recommendations are being made for remaining days of IV therapy Case management working on discharge planning which will be dependent on romano of medication. D/W RN Discuss with ID D/W Dr. vargas, seen on his behalf D/W patient Discussed with case management Discharge Planning Home with home health versus SNF Discussed With: Nurse, Family, Other (Claudia Michael) Assessment and Plan pt is seen & Examined d/w PT d/w claudia d/w SW , SNFs has turned him down d/t expansive abx , options are Home w HHC vs inpatient completion of IV abx pt wants to go home w C SW is verifying Co pay from his insurance , if pt can afford than home w C on IV abx see MRS see orders f/u pcp/GI (Tracie Vargas MD) Claudia Michael Dec 22, 2016 12:55 Tracie Vargas MD Dec 22, 2016 13:42 Tracie Vargas MD Dec 22, 2016 13:42
[2016-12-22 13:16] VITALS: BP 161/77; PULSE 58; RESP 20; TEMP 97.5; O2SAT 96
[2016-12-22] MEDS ORDERED: SPIR100T PO (13:48)
[2016-12-22] MEDS ORDERED: FURO1TAB60 PO (13:48)
[2016-12-22] MEDS ORDERED: LACT10SO PO (13:48)
[2016-12-22] MEDS ORDERED: PANT40TA3 PO (13:48)
[2016-12-22] MEDS ORDERED: PROP10TA6 PO (13:48)
[2016-12-22] MEDS ORDERED: XIFA550T4 PO (13:48)
[2016-12-22] MEDS ORDERED: TAMS5CAP PO (13:48)
--- NOTE | 2016-12-22 13:50 | HHI.FF ---
Face to Face Verification Diagnosis: (1) ESBL (extended spectrum beta-lactamase) producing bacteria infection (2) GI bleed (3) Ascites (4) History of alcohol abuse (5) Liver cirrhosis (6) UGIB (upper gastrointestinal bleed) (7) Hepatic encephalopathy Physical Therapy Order: Evaluate and Treat, Improve ambulation, Strength and gait training Home Health Nursing Order: Medical education Nursing assessment with vital signs IV medication administration I have seen patient Azael Arzola on 12/22/16. My clinical findings support the need for the requested home health care services because: Deconditioned w/ increased weakness Med compliance is questionable Infection w/ risk of complications Injectable med education/admin I certify that my clinical findings support that this patient is homebound because: Unsteady gait/balance Unsafe to leave home unassisted Tracie Vargas MD Dec 22, 2016 13:50
--- NOTE | 2016-12-22 14:38 | HHI.IDPN ---
Subjective Subjective Remarks is a 56 y.o CM who was admitted on 12/02/16 for acute onset GI bleed that started a day prior to admission. Reported bloody vomitus 5 times a day prior to admission along with melanotic stools. The patient has a history of GI bleeds previously related to cirrhosis and varices, last in September requiring a blood transfusion. He reports that he has a follow-up plan with his analysis specialist for endoscopy in the week of admission. The patient became concerned when he began to feel lightheaded, dizzy, weak with standing. He also has h/o Hep C and was on treatment details not known. He was visiting and camping in [place] last month and he reports that while in [place] he did have abdominal distention and 2 L of ascitic fluid was removed from his abdomen. The patient denies any recent fevers, cough, congestion, neck pain, chest pain, shortness of breath, abdominal pain, urinary symptoms, or other neurologic symptoms. On 12/03/2016 patient had an EGD and too much blood in stomach so patient was intubated and left intubated post procedure. EGD on 12/03/16 showed portal gastropathy, gastric fundus a single small varix in the distal esophagus which was not bleeding. Patient was extubated on 12/05/16 but neede Precedex in post extubation period. Had large volume paracentesis 5.2 L removed. Notes reviewed No fever Voiding ok No abdominal pain UC with E coli ESBL+ Repeat UA normal Imaging studies no hydro No rash No diarrhea Antibiotics Invanz IV Lines Line sites with no e.o infection Past Medical History reviewed Allergies: Coded Allergies: Neosporin (Verified Allergy, Mild, 12/01/16) Polysporin (Verified Allergy, Mild, RASH, 12/01/16) *MDRO Multi-Drug Resistant Organism (Verified Adverse Reaction, Unknown, ) ESBL E. coli (urine) - 12/15/16 Objective . Vital Signs Date Time Temp Pulse Resp B/P Pulse Ox O2 Delivery O2 Flow Rate FiO2 12/22/16 14:12 18 12/22/16 13:16 97.5 58 20 161/77 96 12/22/16 08:54 97.4 56 20 136/64 95 12/22/16 05:14 99.0 61 18 152/72 95 12/22/16 01:18 97.9 62 18 130/69 94 12/21/16 23:40 Room Air 12/21/16 20:26 98.3 59 16 144/70 94 12/21/16 17:09 98.5 58 20 120/60 94 12/21/16 12/21/16 12/22/16 15:00 23:00 07:00 Intake Total 720 ml Output Total 400 ml 300 ml Balance 320 ml -300 ml Intake Oral 720 ml Output Urine Total 400 ml 300 ml # Voids 3 # Bowel Movements 1 0 0 . Laboratory Tests Test 12/21/16 10:17 White Blood Count 3.0 TH/MM3 Red Blood Count 3.52 MIL/MM3 Hemoglobin 10.1 GM/DL Hematocrit 31.3 % Mean Corpuscular Volume 88.8 FL Mean Corpuscular Hemoglobin 28.6 PG Mean Corpuscular Hemoglobin 32.2 % Concent Red Cell Distribution Width 17.0 % Platelet Count 142 TH/MM3 Mean Platelet Volume 8.6 FL Laboratory Tests Test 12/21/16 10:17 Sodium Level 136 MEQ/L Potassium Level 4.3 MEQ/L Chloride Level 99 MEQ/L Carbon Dioxide Level 29.1 MEQ/L Anion Gap 8 MEQ/L Blood Urea Nitrogen 7 MG/DL Creatinine 0.65 MG/DL Estimat Glomerular Filtration 127 ML/MIN Rate Random Glucose 171 MG/DL Calcium Level 8.5 MG/DL Imaging Last Impressions Chest X-Ray 12/17/16 0000 Signed Impressions: Service Date/Time: November 12:09 - CONCLUSION: Right perihilar atelectasis. Avni Soto MD Physical Exam GENERAL: Awake and alert NAD SKIN: No generalized rashes. Cool and dry. HEAD: Atraumatic. Normocephalic. No temporal or scalp tenderness. EYES: Pupils equal round and reactive. Extraocular motions intact. No scleral icterus. No injection or drainage. ENT: Nose without bleeding, purulent drainage. Moist mucosa. NECK: Trachea midline. Supple, nontender, no meningeal signs. CARDIOVASCULAR: RRR, ? systolic murmur. RESPIRATORY: Clear to auscultation. Breath sounds equal bilaterally. GASTROINTESTINAL: Abdomen soft, not tender, mildly distended. MUSCULOSKELETAL: Extremities without clubbing, cyanosis, or edema. No joint tenderness, effusion, or edema noted. No calf tenderness. NEUROLOGICAL: Awake and alert. Follows simple commands. No obvious focal deficits. Psych: cooperative IV line sites with no e.o infection. Assessment & Plan Remarks Sepsis new onset (fever in an Immune compromised patient), better ESBL positive E.coli Cath associated UTI (had an indwelling catheter removed on day of culture) ?Aspiration Pneumonia in setting of altered mental status. Acute metabolic encephalopathy; infection, liver issues. Liver Cirrhosis with portal gastropathy and GI bleed on admission. Ascites ? SBP Thrombocytopenia: sepsis, possible liver cirrhosis. Will check HIV and Hepatitis profile. H/o Hep C reportedly on treatment prior to admission. Recs: DC home on Invanz: orders in chart. Dw case management: DC planning jonathan NUÑEZ for hospitalist. Ok to place midline. Will sign off please call back if any change in clinical condition or questions. Faith Lee MD Dec 22, 2016 14:38
[2016-12-22] MEDS: ERTAPENEM INJ 1,000 MG in SODIUM CHLORIDE 0.9% INJ 100 ML IV SCH (15:26)
[2016-12-22 17:56] VITALS: BP 128/63; PULSE 75; RESP 20; TEMP 97.5; O2SAT 98
--- NOTE | 2017-01-10 15:44 | HHI.DS ---
Discharge Summary Admission Date Dec 02, 2016 at 00:11 Discharge Date: Dec 22, 2016 Admitting Diagnosis Upper GI bleed (1) Respiratory failure (2) GI bleed (3) History of alcohol abuse (4) Delirium (5) Liver cirrhosis (6) Anemia requiring transfusions (7) UGIB (upper gastrointestinal bleed) (8) Hepatic encephalopathy (9) Portal hypertensive gastropathy (10) Diabetes 1.5, managed as type 2 (11) ESBL (extended spectrum beta-lactamase) producing bacteria infection Procedures -EGD 12/02 -EGD 12/03/16: Portal gastropathy, gastric fundus. a single small varix in the distal esophagus which was not bleeding -status post large volume paracentesis, 5.2 L removed on 12/05/2016 Imaging Last Impressions Cyst Biopsy Asp-Paracentesis US 12/18/16 0000 Signed Impressions: Service Date/Time: Sunday, December 18, 2016 14:11 - CONCLUSION: Uncomplicated ultrasound guided paracentesis. Long Bella MD FACR Abdomen Ultrasound 12/18/16 0000 Signed Impressions: Service Date/Time: Sunday, December 18, 2016 08:50 - CONCLUSION: 1. Spectrum of findings characteristic of hepatic cirrhosis with a lobulated, echogenic liver , diffuse ascites, splenomegaly and a thrombosed main portal vein and periportal collaterals. 2. Sludge filled gallbladder. Catarino Amador MD Chest X-Ray 12/17/16 0000 Signed Impressions: Service Date/Time: November 12:09 - CONCLUSION: Right perihilar atelectasis. Avni Soto MD Transfer Summary This is a 56-year-old white male with significant past medical history of hypertension, liver cirrhosis, hepatitis C, Portal vein thrombosis, ascites and previous paracentesis. Patient initially presented to the emergency room on 12/02 complaining of vomiting of blood 5 times a day as well as some bloody or melanotic stools. Patient has prior history of GI bleeding secondary to cirrhosis and varices. Patient presented feeling lightheaded and weak. In the emergency room, patient was evaluated was noted with a hemoglobin of 5.8. Patient required FFP and blood transfusion. Patient underwent EGD on 12/02 and was found with too much blood in the stomach for adequate evaluation. He was left intubated because of risk for aspiration. On 12/03/2016 another EGD was done with findings of portal gastropathy, there was a small varix in the distal esophagus which was not bleeding. Patient was extubated on 12/05/2016. He has been severely agitated and did require Precedex and PRN Ativan. A bedside ultrasound showed large amount of ascites. He underwent large volume paracentesis on 12/05/2016 and 5.2 L were removed. Patient was weaned off Precedex gtt on 12/07/2016 however he remains disoriented and at times combative. He was put on Geodon. Ammonia level today was 75, he was started on lactulose. He was having small amount of tarry stools. Patient was examined in the ICU, he was oriented to self. He was cooperative but attempted to get out of bed. Hospitalist services were requested for medical management. (1) Respiratory failure (2) GI bleed (3) History of alcohol abuse (4) Delirium (5) Liver cirrhosis (6) Anemia requiring transfusions (7) UGIB (upper gastrointestinal bleed) (8) Hepatic encephalopathy (9) Portal hypertensive gastropathy (10) Diabetes 1.5, managed as type 2 During the course of the hospitalization the following took place: 56-year-old male with history of end-stage liver disease, hepatitis C, alcohol abuse. Admitted with upper GI bleed, hemoglobin of 5.8. Status post EGD 2 with findings of gastropathy, and single small varix in the distal esophagus which was not bleeding. -HH stable -GI continued to follow -PPI Antibiotics for SBP prophylaxis completed -status post large volume paracentesis, 5.2 L removed on 12/05/2016, stable -abd. distended, abd. US, +ascites, thrombosed portal vein. Had another paracentesis, fluid sent for cytology 12/18 Anemia secondary to blood loss-stable Thrombocytopenia, platelets back to normal Coagulopathy -CBC reviewed, stable -no bleeding. Hepatic encephalopathy, agitated, alcohol withdrawal. Ammonia level 75 initially, went down 32. markedly improved. -continue Geodon and Ativan PRN Continue with clonidine patch -Continue Thiamine and MVI -Psychiatry has evaluated patient -mentation improved, more alert and appropriate. Respiratory failure, resolved. Monitor sats DuoNeb's as needed Was noted Febrile, UA + ESBL. Had lindquist, that was discontinued. -CXR done, reviewed, RLL infiltrate ? aspiration -cultures done, remained negative. -ID input appreciated. -Put on Meropenem -peritoneal fluid for cytology negative for infection. -fever improved, no WBC elevation. Tolerated abx well. ID recommended to continue Abx as OP -PICC line placed, required exchange due to arm swelling. C/O back pain, chronic, has peripheral neuopathy -pain management ordered. SCDs for DVT prophylaxis, no pharmacological DVT due to active GI bleeding Protonix for GI prophylaxis PT eval, OOB daily CM for discharge planning, SNF placement Unfortunately, SNF turned him down d/t expensive abx , options were Home w HHC vs inpatient completion of IV abx pt wanted to go home w [facility] SW verified Co pay from his insurance ,pt. able to afford. Pt. was discharged home with [facility] in stable condition. Pt Condition on Discharge: Stable Discharge Disposition: Disch w/ Home Health Serv Discharge Instructions DIET: Follow Instructions for: Heart Healthy Diet Additional Diet Instructions: No alcohol use Fluid Restrictions: 1500cc/day Activities you can perform: Regular-No Restrictions Other Activity Instructions: fall precautions Follow up Referrals: Gastroenterology - 3 Weeks PCP Follow-up - 1 Week New Medications: Lactulose Liq (Lactulose Liq) 10 Gm/15 Ml Soln 30 ML PO TID hepatic enceph #90 ML Pantoprazole (Pantoprazole) 40 Mg Tab 40 MG PO DAILY gib #30 TAB Rifaximin (Xifaxan) 550 Mg Tab 550 MG PO BID HE #60 TAB Tamsulosin (Flomax) 0.4 Mg Cap 0.8 MG PO DAILY bph #60 CAP Continued Medications: Baclofen (Baclofen) 20 Mg Tab 20 MG PO TID Muscle Spasm Ref 0 TAB Buspirone (Buspirone) 10 Mg Tab 10 MG PO TID Anxiety Ref 0 TAB Calcium Carbonate (Antacid) (Tums) 500 Mg Chew 500 MG CHEW DAILY PRN HEARTBURN Ref 0 TAB Pregabalin (Lyrica) 300 Mg Cap 300 MG PO TID #90 Ref 0 CAP Discontinued Medications: Amlodipine (Amlodipine) 10 Mg Tab 10 MG PO DAILY Blood Pressure Management #30 Ref 0 TAB Furosemide (Furosemide) 20 Mg Tab 20 MG PO DAILY diuretic Days 30 Ref 0 TAB Isosorbide Dinitrate (Isosorbide Dinitrate) 5 Mg Tab 5 MG PO DAILY Pantoprazole (Pantoprazole) 40 Mg Tab 40 MG PO Q12HR ppi Days 30 Ref 0 TAB Propranolol (Propranolol) 20 Mg Tab 20 MG PO DAILY cirrhosis Days 30 Ref 0 TAB Spironolactone (Spironolactone) 25 Mg Tab 25 MG PO DAILY cirrhosis Ref 0 TAB Joanna Herrera [facility] January 10, 2017 15:44 Propranolol (Propranolol) 20 Mg Tab 20 MG PO DAILY cirrhosis Days 30 Ref 0 TAB Spironolactone (Spironolactone) 25 Mg Tab 25 MG PO DAILY cirrhosis Ref 0 TAB Joanna Herrera [facility] January 10, 2017 15:44
== END 2016-12-22 18:40 | disposition home health service (06) | DRG 377 ==
LOC: NEPE 22:28 → NEDA 12-02 00:11 → HIMN 12-02 05:20 → N05B 12-15 00:06
PROVIDERS: ADMIT Specialist; ATTEND Specialist
PROC: 30233N1 Transfusion of Nonautologous Red Blood Cells into Peripheral Vein, Percutaneous Approach (ICD-10-PCS; 2016-12-01)
PROC: 5A1945Z Respiratory Ventilation, 24-96 Consecutive Hours (ICD-10-PCS; 2016-12-02)
PROC: 30233K1 Transfusion of Nonautologous Frozen Plasma into Peripheral Vein, Percutaneous Approach (ICD-10-PCS; 2016-12-02)
PROC: 0DJ08ZZ Inspection of Upper Intestinal Tract, Via Natural or Artificial Opening Endoscopic (ICD-10-PCS; principal; 2016-12-02 13:15)
PROC: 0DJ08ZZ Inspection of Upper Intestinal Tract, Via Natural or Artificial Opening Endoscopic (ICD-10-PCS; 2016-12-03)
PROC: 0W9G3ZX Drainage of Peritoneal Cavity, Percutaneous Approach, Diagnostic (ICD-10-PCS; 2016-12-05)
PROC: 0W9G3ZX Drainage of Peritoneal Cavity, Percutaneous Approach, Diagnostic (ICD-10-PCS; 2016-12-18)
DX: K92.0 Hematemesis (principal); A41.9 Sepsis, unspecified organism; J96.00 Acute respiratory failure, unspecified whether with hypoxia or hypercapnia; J69.0 Pneumonitis due to inhalation of food and vomit; I81 Portal vein thrombosis; G93.41 Metabolic encephalopathy; D68.9 Coagulation defect, unspecified; F10.231 Alcohol dependence with withdrawal delirium; F05 Delirium due to known physiological condition; K76.6 Portal hypertension; D62 Acute posthemorrhagic anemia; N39.0 Urinary tract infection, site not specified; T83.518A Infection and inflammatory reaction due to other urinary catheter, initial encounter; K70.31 Alcoholic cirrhosis of liver with ascites; E11.40 Type 2 diabetes mellitus with diabetic neuropathy, unspecified; I85.00 Esophageal varices without bleeding; I10 Essential (primary) hypertension; E78.5 Hyperlipidemia, unspecified; G89.29 Other chronic pain; M54.5 Low back pain; K31.89 Other diseases of stomach and duodenum; B19.20 Unspecified viral hepatitis C without hepatic coma; K29.70 Gastritis, unspecified, without bleeding; D69.59 Other secondary thrombocytopenia; Y90.0 Blood alcohol level of less than 20 mg/100 ml; K72.90 Hepatic failure, unspecified without coma; D72.819 Decreased white blood cell count, unspecified; B96.20 Unspecified Escherichia coli [E. coli] as the cause of diseases classified elsewhere; Z79.899 Other long term (current) drug therapy; Z78.1 Physical restraint status; Y84.6 Urinary catheterization as the cause of abnormal reaction of the patient, or of later complication, without mention of misadventure at the time of the procedure; Z16.12 Extended spectrum beta lactamase (ESBL) resistance; E87.6 Hypokalemia; Z86.718 Personal history of other venous thrombosis and embolism; W19.XXXA Unspecified fall, initial encounter; Y92.239 Unspecified place in hospital as the place of occurrence of the external cause
CPT/HCPCS: 31500; 36430; 36569; 36600; 49082; 49083; 71010; 76700; 76937; 80048; 80053; 80307; 81001; 82042; 82140; 82150; 82550; 82552; 82805; 82945; 82948; 83605; 83615; 83690; 83735; 83880; 84100; 84132; 84155; 84157; 84484; 85014; 85018; 85025; 85027; 85610; 85730; 86850; 86900; 86901; 86920; 86927; 87040; 87070; 87077; 87086; 87186; 87205; 87641; 88112; 88305; 89051; 93005; 94002; 94003; 96365; 96375; 96376; C1729; C9113; J0360; J0696; J1335; J1630; J1940; J1956; J2060; J2185; J2270; J2354; J2405; J2765; J3411; J3475; J3480; J3486; J7030; J7040; J7050; J7120; P9016; P9017; P9047

== ENCOUNTER 2017-01-01 13:13 | Inpatient (IN) | payer MEDICARE, MEDICAID ==
[~2017-01-01] VITALS: Ht 182.9 cm; Wt 75.3 kg
[~2017-01-01 13:13] MED LIST changes: -B12-1CHW CHEW; +EPIN1INJ21 IV PUSH; +EPIN1INJ21 SQ; +FURO1TAB60 PO; -FURO20TA PO; +INVA1INJ IV; -ISOS1TAB PO; +LACT10SO PO; +PROP10TA6 PO; -PROP20TA3 PO; +SOLU250I IV PUSH; +SPIR100T PO; -Spironolactone PO; +TAMS5CAP PO; +TUMS500C CHEW
[2017-01-01 13:26] VITALS: BP 114/58; PULSE 62; RESP 16; TEMP 97.4; O2SAT 100
[2017-01-01] MEDS ORDERED: PANTOPRAZOLE INJ 80 MG in SODIUM CHLORIDE 0.9% INJ 35 ML IV ONE (13:30)
[2017-01-01] MEDS ORDERED: SODIUM CHLOR 0.9% 1000 ML INJ 1,000 ML IV SCH (13:30)
[2017-01-01] MEDS ORDERED: SODIUM CHLORIDE 0.9% FLUSH 10 ML FLUSH IVF PRN (13:30)
[2017-01-01 13:35] VITALS: BP 114/58; PULSE 67; RESP 16; O2SAT 100
--- NOTE | 2017-01-01 13:40 | PD ---
HPI Chief Complaint: GI bleeding Time Seen by Provider: 13:34 Travel History International Travel<30 days: No Contact w/Intl Traveler<30days: No History of Present Illness HPI 56-year-old male with history of GI bleeds related to cirrhosis and varices presents to the emergency department for evaluation of maroon rectal bleeding that started last night. Patient was discussed discharged on December 22, 2016 after a long stay for GI bleeding. He states he feels fatigued since having the GI bleeding. He denies any chest pain or shortness breath. No fevers or chills. He denies any abdominal pain. He denies any hematemesis. Patient has history of multiple blood transfusions due to GI bleeding. He states that he just recently had a PICC line to the right upper extremity for which she was getting IV antibiotics for a UTI. This was discontinued yesterday. PFSH Past Medical History Hx Anticoagulant Therapy: Yes (ASA) Anxiety: No Depression: No Cancer: No Cardiovascular Problems: Yes High Cholesterol: Yes Diabetes: Yes Diminished Hearing: No Endocrine: Yes Gastrointestinal Disorders: No Genitourinary: No Hepatitis: Yes (C) Hiatal Hernia: No Hypertension: Yes Immune Disorder: No Implanted Vascular Access Dvce: Yes Musculoskeletal: No Neurologic: Yes (DIABETIC NEUROPATHY) Psychiatric: No Respiratory: No Immunizations Current: Yes Thyroid Disease: No Past Surgical History Abdominal Surgery: Yes (APPENDECTOMY) Appendectomy: Yes Body Medical Devices: PLATE IN RIGHT SHOULDER Cardiac Surgery: No Ear Surgery: No Endocrine Surgery: No Eye Surgery: No Genitourinary Surgery: No Gynecologic Surgery: No Oral Surgery: No Pacemaker: No Thoracic Surgery: No Tonsillectomy: Yes Other Surgery: Yes (right clavical with metal, LIVER PARACENTESIS) Social History Alcohol Use: No Tobacco Use: No Substance Use: No Allergies-Medications (Allergen,Severity, Reaction): Coded Allergies: Neosporin (Verified Allergy, Mild, 01/01/17) Polysporin (Verified Allergy, Mild, RASH, 01/01/17) *MDRO Multi-Drug Resistant Organism (Verified Adverse Reaction, Unknown, ) ESBL E. coli (urine) - 12/15/16 Reported Meds & Prescriptions Reported Meds & Active Scripts Active Pantoprazole (Pantoprazole Sodium) 40 Mg Tab 40 Mg PO DAILY Flomax (Tamsulosin HCl) 0.4 Mg Cap 0.8 Mg PO DAILY Lasix (Furosemide) 40 Mg Tab 40 Mg PO DAILY Spironolactone 100 Mg Tab 100 Mg PO BID Xifaxan (Rifaximin) 550 Mg Tab 550 Mg PO BID Propranolol (Propranolol HCl) 10 Mg Tab 20 Mg PO Q8HR Lactulose Liq (Lactulose) 10 Gm/15 Ml Soln 30 Ml PO TID Reported Tums (Calcium Carbonate (Antacid)) 500 Mg Chew 500 Mg CHEW DAILY PRN Lyrica (Pregabalin) 300 Mg Cap 300 Mg PO TID Buspirone (Buspirone HCl) 10 Mg Tab 10 Mg PO TID Baclofen 20 Mg Tab 20 Mg PO TID Review of Systems Except as stated in HPI: all other systems reviewed are Neg Physical Exam Narrative GENERAL: Well-nourished, well-developed male patient. Afebrile. Patient appears pale SKIN: Focused skin assessment warm/dry. HEAD: Normocephalic. Atraumatic. EYES: No scleral icterus. No injection or drainage. NECK: Supple, trachea midline. No JVD or lymphadenopathy. CARDIOVASCULAR: Regular rate and rhythm without murmurs, gallops, or rubs. RESPIRATORY: Breath sounds equal bilaterally. No accessory muscle use. Lungs sounds are clear to auscultation GASTROINTESTINAL: Abdomen soft, non-tender, nondistended. MUSCULOSKELETAL: No cyanosis, or edema. RECTAL EXAM: No masses or tenderness, stool is maroon. Hemoccult is grossly positive. Data Data Last Documented VS Vital Signs Date Time Temp Pulse Resp B/P Pulse Ox O2 Delivery O2 Flow Rate FiO2 01/01/17 14:15 64 16 106/58 100 Room Air 01/01/17 13:26 97.4 Orders Complete Blood Count With Diff (01/01/17 13:30) Comprehensive Metabolic Panel (01/01/17 13:30) Lipase (01/01/17 13:30) Prothrombin Time / Inr (Pt) (01/01/17 13:30) Act Partial Throm Time (Ptt) (01/01/17 13:30) Alcohol (Ethanol) (01/01/17 13:30) Urinalysis - C+S If Indicated (01/01/17 13:30) Type And Screen (01/01/17 13:30) Ecg Monitoring (01/01/17 13:30) Iv Access Insert/Monitor (01/01/17 13:30) Oximetry (01/01/17 13:30) Sodium Chlor 0.9% 1000 Ml Inj (Ns 1000 M (01/01/17 13:30) Sodium Chloride 0.9% Flush (Ns Flush) (01/01/17 13:30) Pantoprazole Inj (Protonix Inj) (01/01/17 13:30) Pantoprazole Inj (Protonix Inj) (01/01/17 13:30) Red Blood Cells (Rbc) (01/01/17 14:07) Blood Product Administration .UPON TRANSFUSION (01/01/17 14:07) Sodium Chlor 0.9% 250 Ml Inj (Ns 250 Ml (01/01/17 14:15) Octreotide Inj (Sandostatin Inj) (01/01/17 14:15) Octreotide Inj (Sandostatin Inj) (01/01/17 15:15) Consult Gastroenterology (01/01/17 ) Consent (01/01/17 14:23) Admit Order (Ed Use Only) (01/01/17 14:29) Labs Laboratory Tests Test 01/01/17 01/01/17 01/01/17 13:40 13:50 14:25 White Blood Count 2.2 TH/MM3 Red Blood Count 2.12 MIL/MM3 Hemoglobin 6.2 GM/DL Hematocrit 18.9 % Mean Corpuscular Volume 88.9 FL Mean Corpuscular Hemoglobin 29.4 PG Mean Corpuscular Hemoglobin 33.0 % Concent Red Cell Distribution Width 18.0 % Platelet Count 119 TH/MM3 Mean Platelet Volume 10.8 FL Neutrophils (%) (Auto) % Lymphocytes (%) (Auto) % Monocytes (%) (Auto) % Eosinophils (%) (Auto) % Basophils (%) (Auto) % Neutrophils # (Auto) TH/MM3 Lymphocytes # (Auto) TH/MM3 Monocytes # (Auto) TH/MM3 Eosinophils # (Auto) TH/MM3 Basophils # (Auto) TH/MM3 CBC Comment AUTO DIFF Differential Total Cells 100 Counted Neutrophils % (Manual) 52 % Band Neutrophils % 3 % Lymphocytes % 31 % Monocytes % 3 % Eosinophils % 11 % Neutrophils # (Manual) 1.2 TH/MM3 Differential Comment FINAL DIFF MANUAL Platelet Estimate LOW Platelet Morphology Comment NORMAL Keratocytes OCC Sodium Level 137 MEQ/L Potassium Level 4.8 MEQ/L Chloride Level 102 MEQ/L Carbon Dioxide Level 26.3 MEQ/L Anion Gap 9 MEQ/L Blood Urea Nitrogen 28 MG/DL Creatinine 1.37 MG/DL Estimat Glomerular Filtration 54 ML/MIN Rate Random Glucose 370 MG/DL Calcium Level 8.1 MG/DL Total Bilirubin 0.9 MG/DL Aspartate Amino Transf 70 U/L (AST/SGOT) Alanine Aminotransferase 47 U/L (ALT/SGPT) Alkaline Phosphatase 112 U/L Total Protein 6.9 GM/DL Albumin 3.0 GM/DL Lipase 194 U/L Ethyl Alcohol Level LESS THAN 3 MG/DL Blood Type A POSITIVE Antibody Screen NEGATIVE Crossmatch Leukocyte-Reduced Red Blood Cells Blood Bank Comment Urine Color YELLOW Urine Turbidity CLEAR Urine pH 5.5 Urine Specific [place] 1.021 Urine Protein TRACE mg/dL Urine Glucose (UA) 70 mg/dL Urine Ketones NEG mg/dL Urine Occult Blood NEG Urine Nitrite NEG Urine Bilirubin NEG Urine Urobilinogen 2.0 MG/DL Urine Leukocyte Esterase NEG Urine RBC 2 /hpf Urine WBC 1 /hpf Urine Squamous Epithelial <1 /hpf Cells Urine Hyaline Casts 29 /lpf Urine Mucus FEW /lpf Microscopic Urinalysis Comment CULT NOT INDICATED Prothrombin Time 13.6 SEC Prothromb Time International 1.2 RATIO Ratio Activated Partial 29.6 SEC Thromboplast Time MDM Medical Decision Making Medical Screen Exam Complete: Yes Emergency Medical Condition: Yes Medical Record Reviewed: Yes Differential Diagnosis GI bleed versus varices versus gastritis versus anemia Narrative Course 56-year-old male presents to the emergency department for evaluation of a red- colored stools that started last night. Patient states he feels weak and lethargic. He has long history of ICU admissions and blood transfusions with history of esophageal varices. Patient is pale on exam. Hemoccult is grossly positive. CBC, CMP, lipase, PTT, PTT/INR, alcohol level, UA are ordered and pending. Patient is given normal saline 1 L IV bolus. Patient is given Protonix bolus with protonix drip. CBC shows leukopenia at 2.2, hemoglobin 6.2, hematocrit 18.9. CMP shows BUN 28 , currently 1.37, glucose 370, AST 70. Lipase is 194. Coags [-]. Alcohol level is less than 3. UA is negative for infection. Patient will be started on a Sandostatin drip. He is given 50 g bolus with 25 g an hour. GI is paged for consultation. I discussed the case with the all source intelligence technician, Dr. Woody, who would like me to see if hospitalist will admit the patient to the ICU. If not, he will admit the patient. I spoke to Dr. Maciel who would like the patient to stay nothing by mouth. [facility] is paged for admission. Dr. Rangel spoke to Dr. Woody who accepted admission to ICU. Diagnosis Primary Impression: GI bleed Qualified Code: K92.2 - Gastrointestinal hemorrhage, unspecified gastrointestinal hemorrhage type Additional Impression: Anemia Qualified Code: D64.9 - Anemia, unspecified type Admitting Information Admitting Physician Requests: Aby Esteves January 01, 2017 13:40
[2017-01-01 13:52] LABS: HEMO FLAGS AUTO DIFF; MEAN CELL VOLUME 88.9 FL (80.0-100.0); MEAN CORPUSCULAR HEMOGLOBIN 29.4 PG (27.0-34.0); PLATELET COUNT 119 TH/MM3 (150-450); RED BLOOD COUNT 2.12 MIL/MM3 (4.50-5.90); WHITE BLOOD COUNT 2.2 TH/MM3 (4.0-11.0)
[2017-01-01 13:59] LABS: HEMATOCRIT 18.9 % (39.0-51.0)
[2017-01-01 14:15] VITALS: BP 106/58; PULSE 64; RESP 16; O2SAT 100
[2017-01-01 14:15] LABS: ALKALINE PHOSPHATASE 112 U/L (45-117); ALT (GPT) 47 U/L (12-78); ANION GAP 9 MEQ/L (5-15); AST (GOT) 70 U/L (15-37); BICARBONATE 26.3 MEQ/L (21.0-32.0); BLOOD UREA NITROGEN 28 MG/DL (7-18); CHLORIDE 102 MEQ/L (98-107); GLOMERULAR FILTRATION RATE 54 ML/MIN (>89); POTASSIUM 4.8 MEQ/L (3.5-5.1); SODIUM (NA) 137 MEQ/L (136-145); TOTAL BILIRUBIN ADULT 0.9 MG/DL (0.2-1.0)
[2017-01-01] MEDS ORDERED: SODIUM CHLOR 0.9% 250 ML INJ 250 ML IV ONE (14:15)
[2017-01-01] MEDS ORDERED: OCTREOTIDE INJ 50 MCG/ML AMP IVP ONE (14:15)
[2017-01-01 14:28] LABS: BLOOD, URINE NEG (NEG); GLUCOSE,URINE 70 mg/dL (NEG); KETONE, URINE NEG (NEG); MUCUS URINE FEW /lpf (OCC); NITRITE,URINE NEG (NEG); PH, URINE 5.5 (5.0-8.5); SQUAMOUS EPITHELIAL CELL URINE <1 /hpf (0-5); URINE COLOR YELLOW (YELLW/STRAW)
[2017-01-01 14:29] LABS: COMMENT (UR) CULT NOT INDICATED; CULTURE IF INDICATED CULT NOT INDICATED; HYALINE CAST, URINE 29 /lpf (RARE)
[2017-01-01 14:36] LABS: BANDS 3 % (0-6); EOSINOPHILS 11 % (0-4); NEUTROPHIL # MANUAL DIFF 1.2 TH/MM3 (1.8-7.7); POLYS (SEG NEUTROPHILS) 52 % (16-70); WBC DIFF SAMPLE 100
[2017-01-01 14:37] LABS: KERATOCYTES OCC (NORMAL); PLATELET ESTIMATE SMEAR LOW (NORMAL); PLATELET MORPHOLOGY NORMAL (NORMAL); SCAN/DIFF FINAL DIFF MANUAL
--- NOTE | 2017-01-01 14:55 | PD.CONS ---
HPI History of Present Illness This is a 56 year old male with a hx of liver cirrhosis, portal hypertension and previous GI bleeding who came to the ER for evaluation GI bleeding. He was recently hospitalized for GI bleeding and last evaluated with EGD (12/02/16)----- > 1. Portal hypertensive gastropathy was found in the gastric fundus 2. Old blood 3. Retroflexed views revealed no abnormalities. He also required a paracentesis during his last hospitalization for his ascites and had 5,000cc removed on (12/18/16). He was discharged on Lasix, Spironolactone, Propranolol, and Protonix. He has been taking his meds as prescribed and reports that he was doing well up until this am. He states he woke up around 4am "not feeling well" and had the sudden urge to move his bowels. He reports that he had 3 episodes of passing a large amount of bloody stool- dark red/purple in color with blood clots. He cannot identify any aggravating factors. He did not have any nausea or vomiting and denies any abdominal pain. He states that he has been "feeling cold" and feels weak, but denies any syncopal episodes. He denies the use of NSAIDS and does not drink ETOH. He reports that he quit 6 years ago. He also has a hx of Hepatitis C. He does not know when he was diagnosed but is treatment naive. (Yumiko Vale) PFSH Past Medical History HTN DM Hx Esophageal varices Gastritis Hemorrhoids Cirrhosis Hepatitis C, Tx naive Portal vein thrombosis Diabetic neuropathy Hyperlipidemia Past Surgical History Appendectomy Right shoulder surgery Tonsillectomy EGD/Colonoscopy Nasal surgery ORIF tibia (Yumiko Vale) Coded Allergies: Neosporin (Verified Allergy, Mild, 01/01/17) Polysporin (Verified Allergy, Mild, RASH, 01/01/17) *MDRO Multi-Drug Resistant Organism (Verified Adverse Reaction, Unknown, ) ESBL E. coli (urine) - 12/15/16 Medications Allergies Coded Allergies Type Severity Reaction Last Updated Verified Neosporin Allergy Mild 01/01/17 Yes Polysporin Allergy Mild RASH 01/01/17 Yes *MDRO Multi-Drug Resistant Organism Adverse Reaction Unknown 01/01/17 Yes Active Scripts Medications Dose Route/Sig Days Date Category Dose Instructions Pantoprazole (Pantoprazole Sodium) 40 Mg Tab 40 Mg PO DAILY 12/22/16 Rx Flomax (Tamsulosin HCl) 0.4 Mg Cap 0.8 Mg PO DAILY 12/22/16 Rx Lasix (Furosemide) 40 Mg Tab 40 Mg PO DAILY 12/22/16 Rx Spironolactone 100 Mg Tab 100 Mg PO BID 12/22/16 Rx Xifaxan (Rifaximin) 550 Mg Tab 550 Mg PO BID 12/22/16 Rx Propranolol (Propranolol HCl) 10 Mg Tab 20 Mg PO Q8HR 12/22/16 Rx Lactulose Liq (Lactulose) 10 Gm/15 Ml Soln 30 Ml PO TID 12/22/16 Rx Invanz Inj (Ertapenem) 1 Gm Addvial 1 Gm IV DAILY 6 12/22/16 Rx Epinephrine Inj 1 Mg/Ml Inj 0.3 Mg SQ ONCE PRN 12/22/16 Rx Give with any signs of respiratory distress. Epinephrine Inj 1 Mg/Ml Inj 0.3 Mg IV PUSH ONCE PRN 12/22/16 Rx Solu-Cortef Inj (Hydrocortisone Sodium Succinate) 250 Mg Inj 250 Mg IV PUSH ONCE PRN 12/22/16 Rx Give over 30-60 seconds. Tums (Calcium Carbonate (Antacid)) 500 Mg Chew 500 Mg CHEW DAILY PRN 12/01/16 Reported Ferrous Sulfate 325 Mg Tab 325 Mg PO BID 10/27/16 Rx Lactinex (Lactobacillus Acidophilus) 1 Chew 1 Tab CHEW DAILY 09/23/16 Rx Lyrica (Pregabalin) 300 Mg Cap 300 Mg PO TID 09/17/16 Reported Buspirone (Buspirone HCl) 10 Mg Tab 10 Mg PO TID 09/17/16 Reported Baclofen 20 Mg Tab 20 Mg PO TID 09/17/16 Reported Hydrocodone-Acetaminophen 10-325 mg Tab 1 Tab PO 5 TIMES A DAY PRN 09/17/16 Reported Family History Noncontributory Social History Smokes 2 cigarettes per week No ETOH use. No illicit drug use. (Yumiko Vale) Review of Systems Constitutional: COMPLAINS OF: Fatigue, Change in appetite, DENIES: Fever, Chills Cardiovascular: DENIES: Chest pain, Lower Extremity Edema Gastrointestinal: COMPLAINS OF: Black stools, Bloody stools, Diarrhea, DENIES : Abdominal pain, Constipation, Nausea, Vomiting Musculoskeletal: COMPLAINS OF: Back pain Hematologic/lymphatic: DENIES: Bruising Neurologic: DENIES: Headache Psychiatric: DENIES: Confusion (Yumiko Vale) GI Exam Vitals I&O Vital Signs Date Time Temp Pulse Resp B/P Pulse Ox O2 Delivery O2 Flow Rate FiO2 01/01/17 14:15 64 16 106/58 100 Room Air 01/01/17 13:35 16 01/01/17 13:35 67 16 114/58 100 Room Air 01/01/17 13:26 97.4 62 16 114/58 100 Laboratory Test 01/01/17 01/01/17 13:40 13:50 White Blood Count 2.2 TH/MM3 Red Blood Count 2.12 MIL/MM3 Hemoglobin 6.2 GM/DL Hematocrit 18.9 % Mean Corpuscular Volume 88.9 FL Mean Corpuscular Hemoglobin 29.4 PG Mean Corpuscular Hemoglobin 33.0 % Concent Red Cell Distribution Width 18.0 % Platelet Count 119 TH/MM3 Mean Platelet Volume 10.8 FL Neutrophils (%) (Auto) % Lymphocytes (%) (Auto) % Monocytes (%) (Auto) % Eosinophils (%) (Auto) % Basophils (%) (Auto) % Neutrophils # (Auto) TH/MM3 Lymphocytes # (Auto) TH/MM3 Monocytes # (Auto) TH/MM3 Eosinophils # (Auto) TH/MM3 Basophils # (Auto) TH/MM3 CBC Comment AUTO DIFF Sodium Level 137 MEQ/L Potassium Level 4.8 MEQ/L Chloride Level 102 MEQ/L Carbon Dioxide Level 26.3 MEQ/L Anion Gap 9 MEQ/L Blood Urea Nitrogen 28 MG/DL Creatinine 1.37 MG/DL Estimat Glomerular Filtration 54 ML/MIN Rate Random Glucose 370 MG/DL Calcium Level 8.1 MG/DL Total Bilirubin 0.9 MG/DL Aspartate Amino Transf 70 U/L (AST/SGOT) Alanine Aminotransferase 47 U/L (ALT/SGPT) Alkaline Phosphatase 112 U/L Total Protein 6.9 GM/DL Albumin 3.0 GM/DL Lipase 194 U/L Ethyl Alcohol Level LESS THAN 3 MG/DL Blood Type A POSITIVE Antibody Screen NEGATIVE Urine Color YELLOW Urine Turbidity CLEAR Urine pH 5.5 Urine Specific [place] 1.021 Urine Protein TRACE mg/dL Urine Glucose (UA) 70 mg/dL Urine Ketones NEG mg/dL Urine Occult Blood NEG Urine Nitrite NEG Urine Bilirubin NEG Urine Urobilinogen 2.0 MG/DL Urine Leukocyte Esterase NEG Urine RBC 2 /hpf Urine WBC 1 /hpf Urine Squamous Epithelial <1 /hpf Cells Urine Hyaline Casts 29 /lpf Urine Mucus FEW /lpf Microscopic Urinalysis Comment CULT NOT INDICATED Physical Examination HEENT: Normocephalic; atraumatic; no jaundice. CHEST: CTA CARDIAC: RRR ABDOMEN: Soft, nondistended, nontender; hepatosplenomegaly; bowel sounds are present in all four quadrants. EXTREMITIES: No clubbing, cyanosis, or edema. SKIN: Normal; no rash; no jaundice. 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 (Yumiko Vale) Assessment and Plan Plan ASSESSMENT: - GIB, Hematochezia. Pt with hx of cirrhosis/portal gastropathy. He was hospitalized last month for GI bleeding and underwent EGD (12/02/16)-----> 1. Portal hypertensive gastropathy was found in the gastric fundus 2. Old blood 3. Retroflexed views revealed no abnormalities. He was discharged on Protonix, Propranolol. He reports he was doing well up until this am, when he woke up and had the sudden urge to move his bowels and passed a large amount of dark reddish purple blood/clots. HH 6.2/18.9. 2 units ordered. Protonix and Octreotide have been ordered. - Anemia, secondary to acute blood loss. HH 6.2/18.9. 2 units ordered. - Liver cirrhosis secondary to HCV, ETOH. He is treatment naive for HCV. He quit drinking 6 years ago. He had a paracentesis during his last hospitalization with 5,000cc removed on 12/18. He is on Lasix, Spironolactone and his ascites is well controlled at this time. - DM, Neutropenia, per primary PLAN: - Plan for EGD with possible band ligation today - Obtain consents - NPO - Protonix Gtt - Octreotide Gtt - Monitor HH - Transfuse as necessary - Supportive care - Will need to add diuretics and propranolol once his b/p allows - Further recommendations to follow based on results of above - Pt seen and examined by Dr. Maciel and myself and this note is written on his behalf (Yumiko Vale) Plan Seen and examined with KIMANI, acute ugi bleed. IV protonix/octreotide. EGD today. Transfuse as needed. ICU monitoring. Will follow, thank you. (Rhonda Maciel MD) Yumiko Vale January 01, 2017 14:55 Rhonda Maciel MD January 01, 2017 15:35
[2017-01-01 14:57] LABS: APTT (PATIENT) 29.6 SEC (24.3-30.1); INTERNATIONAL NORMALIZED RATIO 1.2 RATIO; PROTHROMBIN TIME - PATIENT 13.6 SEC (9.8-11.6)
[2017-01-01 15:00] VITALS: BP 118/60; PULSE 64; RESP 16; O2SAT 99
[2017-01-01] MEDS ORDERED: DEXTROSE 50% IN WATER 50 ML VIAL(D50) IV PUSH PRN (15:15)
[2017-01-01] MEDS ORDERED: MISCELLANEOUS NURSING INFORMATION XX SCH (15:15)
[2017-01-01] MEDS ORDERED: GLUCAGON 1 MG/ML VIAL OTHER PRN (15:15)
[2017-01-01] MEDS ORDERED: RESP: ALBUTEROL 2.5 MG/IPRATROPIUM 0.5 MG NEB (PRN) INH (15:15)
--- NOTE | 2017-01-01 15:53 | MH ---
cc: DIALLO CASTANON M.D. DATE OF ADMISSION: 01/01/2017 DATE OF : 1960 HISTORY: The patient is a 56-year-old male with past medical history of cirrhosis of liver, portal hypertension and previous history of GI bleed, hypertension, diabetes mellitus, hepatitis C, hyperlipidemia who presented to [facility] emergency department for evaluation of a GI bleed. The patient noted melanotic stools. He denies any associated symptoms of hemoptysis, hematemesis, nausea, vomiting or any abdominal pain. In addition the patient denies any use of NSAIDs. He quit drinking alcohol approximately 6 years ago. He was recently hospitalized for GI bleed and had an upper endoscopy done on December 02, which showed portal hypertensive gastropathy in the gastric fundus with old blood. He also required paracentesis for a ascites with removal of approximately 5 liters on December 18. His initial laboratory data showed severe anemia with hemoglobin eight with hemoglobin 6.2 and hematocrit 18.9. Also the patient had a creatinine of 1.37 with a BUN of 28. He was evaluated by GI service with esophagogastroduodenoscopy in the emergency room and planned to proceed with upper endoscopy this afternoon. In addition 2 units of packed red blood cells has been ordered by emergency department. The patient also is being placed on Protonix and octreotide drips. PAST MEDICAL HISTORY: 1. Hypertension 2. Diabetes mellitus 3. History of gastrointestinal bleed with esophageal varices. 4. Cirrhosis of liver 5. Hepatitis C 6. Diabetic neuropathy 7. Hyperlipidemia. PAST SURGICAL HISTORY 1. Previous appendectomy 2. Tonsillectomy. 3. Previous right shoulder surgery. 4. Previous esophagogastroduodenoscopy. 5. Colonoscopy. 6. Paracentesis 7. Previous nasal surgery. 8. Previous open reduction, internal fixation of the tibia. ALLERGIES POLYSPORIN NEOSPORIN FAMILY HISTORY Noncontributory. SOCIAL HISTORY The patient quit drinking 6 years ago. Active smoker. Denies any illicit drug use reported MEDICATIONS medications include 1. Flomax 2. Lactulose 3. TUMS 4. Rifaximin 5. Lyrica. 6. Propranolol. 7. Lasix. 8. Aldactone. 9. Protonix. REVIEW OF SYSTEMS As per history of present illness. The rest of the system unremarkable. PHYSICAL EXAMINATION: IN GENERAL: A 56-year-old male who appears critically ill, in no respiratory distress. VITAL SIGNS: Temperature 97.4, pulse of 65, blood pressure 106/58, saturation 95% on room air. HEAD, EYES, EARS, NOSE, AND THROAT: Atraumatic, normocephalic pupil equal to accommodation, extraocular muscles intact. Conjunctivae pink. Nonicteric sclerae. Dry mucous membranes. NECK: Supple. No JVD, adenopathy or thyromegaly. Trachea midline. CARDIOVASCULAR SYSTEM: Regular rate and rhythm. Normal S1-S2. No murmurs, rubs or gallops noted. PULMONARY EXAMINATION: Bilateral equal entry. No crackles or wheezing. ABDOMEN: The abdomen is soft, nontender. No distension. Positive bowel sounds. EXTREMITIES: No cyanosis, clubbing or edema. NEUROLOGIC: No focal sensory deficit. LABORATORY DATA Sodium 137, 1004.8, chloride 102, CO2 26, BUN 28, creatinine 1.37, glucose 370, AST 70, ALT 47, alk phos 112, lipase 194, albumin 3, WBC 2.2, hemoglobin 6.2, hematocrit 18.9, platelet count 119, INR 1.2, PT 13.6, PTT 29.6 His alcohol level less than three. Urinalysis negative leukocyte esterase negative. No nitrite, INR 1.2, PT 13.6, PTT 29.6. IMPRESSION 1. Gastrointestinal bleed. 2. Anemia secondary to gastrointestinal bleed. 3. Acute kidney injury. 4. Hypertension 5. Diabetes mellitus. 6. Cirrhosis of liver 7. Elevated AST 8. Hepatitis C 9. Pancytopenia. RECOMMENDATIONS -Monitor neuro status closely and avoid any sedatives. -Check baseline ammonia level -Oxygen p.r.n. to maintain sats above 92% and bronchodilators on a p.r.n. basis. -Monitor heart rate and blood pressure closely and maintain MAP greater than 65 mmHg. We will give 1 liter bolus of normal saline and then place on NS at 100 an hour. -Monitor renal function, Is and Os and electrolytes replacement as needed. -Continue with IV fluids as stated above. -Keep n.p.o. for now and will continue with Protonix on octreotide drips. Patient is for upper endoscopy this afternoon per GI service. -Monitor liver function tests. -Place on empiric antibiotics in the form of Rocephin 1 gram IV daily. - Monitor for signs infections which include fever and WBC. Check blood cultures x2 sets. -Monitor CBC and Coags. -Patient is for transfusion of 2 units of packed red blood cells. Will monitor H&H and q.6 h. -Place on medium scale sliding scale insulin with Accu-Chek's q. 4-hour for glycemic control. - GI prophylaxis. Patient be on Protonix drip and DVT prophylaxis with SCDs. Chemical anticoagulation prophylaxis contraindicated in the setting of GI bleed. -Further recommendations will be based on hospital course. Critical care time 35 minutes excluding procedures. MD FIDELINA Clancy/marshal /3:16 PM /3:39 PM MTDD
--- NOTE | 2017-01-01 15:57 | GIPROC ---
[facility] [address] [facility]. [facility], [address] EGD PROCEDURE REPORT EXAM DATE: 01/01/2017 PATIENT NAME: Azael Arzola MR #: [id number] BIRTHDATE: 1960 ATTENDING: Rhonda Maciel MD ORDER #: [id number] TESTING SPECIALIST: Aly Hanna Duff, Pat, and Sana Hill STATUS: inpatient INDICATIONS: The patient is a 56 yr old male here for an EGD due to acute post hemorrhagic anemia and melena PROCEDURE PERFORMED: EGD, diagnostic MEDICATIONS: Per Anesthesia and None. TOPICAL ANESTHETIC: CONSENT: The patient understands the risks and benefits of the procedure and understands that these risks include, but are not limited to: sedation, allergic reaction, infection, perforation and/or bleeding. Alternative means of evaluation and treatment include, among others: physical exam, x-rays, and/or surgical intervention. The patient elects to proceed with this endoscopic procedure. medical equipment was checked for proper function. Hand hygiene and appropriate measures for infection prevention was taken. After the risks, benefits and alternatives of the procedure were thoroughly explained, Informed consent was verified, confirmed and timeout was successfully executed by the treatment team. The patient was anesthetized with topical anesthesia and the Pentax [id number] endoscope was introduced through the mouth and advanced to the second portion of the duodenum. Retroflexed views revealed no abnormalities The gastroscope was then slowly withdrawn and removed. STOMACH: Retained food in stomach, no blood seen. ESOPHAGUS: There was a single small varix in the distal esophagus. The varices were not bleeding. There was evidence of prior scarring. DUODENUM: The duodenal mucosa appeared normal. ADVERSE EVENTS: There were no complications. IMPRESSIONS: 1. Retained food in stomach, no blood seen 2. Normal duodenal mucosa 3. Retroflexed views revealed no abnormalities RECOMMENDATIONS: 1. Continue PPI 2. Liquid diet, Colonoscopy tomorrow PATIENT CONDITION: stable DISPOSITION: Inpatient REPEAT EXAM: Return 1 year EGD Rhonda Maciel MD eSigned: Rhonda Maciel MD 01/01/2017 3:57 PM cc: PATIENT NAME: Azael Arzola MR#: [id number]
[2017-01-01] MEDS ORDERED: CHLORHEXIDINE GLUCONATE 2 % 1 PACK (2 CLOTHS) TOP PRN (16:00)
[2017-01-01] MEDS: OCTREOTIDE INJ 500 MCG in SODIUM CHLORID 0.9% 500 ML INJ 499.5 ML IV SCH (16:30)
[2017-01-01] MEDS ORDERED: PEG (High)/E-LYTE SOLN 4000 ML BTL PO ONE (16:30)
[2017-01-01] MEDS: PANTOPRAZOLE INJ 80 MG in SODIUM CHLORIDE 0.9% INJ 100 ML IV SCH ×2 (16:30→23:52)
[2017-01-01] MEDS ORDERED: PROPOFOL 200 MG/20 ML AMP IV ONE (16:45)
[2017-01-01] MEDS: INSULIN NovoLIN REGULAR SUPPLEMENTAL SCALE SQ SCH ×2 (16:52→20:00)
[2017-01-01] MEDS: cefTRIAXone INJ 1,000 MG in SODIUM CHLORIDE 0.9% INJ 100 ML IV SCH (17:05)
[2017-01-01] MEDS: SODIUM CHLOR 0.9% 1000 ML INJ 1,000 ML IV SCH (17:08)
[2017-01-01] MEDS ORDERED: fentaNYL CITRATE 250 MCG/5 ML AMP ONE (19:59)
[2017-01-01 20:00] VITALS: BP 105/55; PULSE 57; PULSE 60; RESP 8; TEMP 98; O2SAT 100
[2017-01-01 21:22] LABS: HEMATOCRIT 23.7 % (39.0-51.0); REVIEW FLAG FINAL
[2017-01-01 22:00] VITALS: PULSE 64
[2017-01-01] MEDS ORDERED: PREGABALIN 75 MG CAP PO ONE (22:45)
[2017-01-01 23:57] LABS: HEMATOCRIT 21.7 % (39.0-51.0); REVIEW FLAG FINAL
[2017-01-02] VITALS (18 sets, daily range): BP systolic 116–165; BP diastolic 58–91; PULSE 54–69; RESP 10–20; TEMP 97.6–98.7; O2SAT 94–100
[2017-01-02] MEDS: SODIUM CHLOR 0.9% 1000 ML INJ 1,000 ML IV SCH (02:58)
[2017-01-02] MEDS: OCTREOTIDE INJ 500 MCG in SODIUM CHLORID 0.9% 500 ML INJ 499.5 ML IV SCH (02:58)
[2017-01-02] MEDS: INSULIN NovoLIN REGULAR SUPPLEMENTAL SCALE SQ SCH ×8 (04:00→22:41)
[2017-01-02] MEDS: CHLORHEXIDINE GLUCONATE 2 % 1 PACK (2 CLOTHS) TOP SCH (04:00)
[2017-01-02 05:03] LABS: AUTOMATED NEUTROPHIL # 1.8 TH/MM3 (1.8-7.7); BASOPHIL % 0.9 % (0.0-2.0); EOSINOPHIL # 0.1 TH/MM3 (0-0.4); LYMPH % 18.4 % (9.0-44.0); LYMPHOCYTE # 0.5 TH/MM3 (1.0-4.8); MEAN CELL VOLUME 87.1 FL (80.0-100.0); MEAN CORPUSCULAR HEMOGLOBIN 29.7 PG (27.0-34.0); MEAN CORPUSCULAR HGB CONC 34.2 % (32.0-36.0); MONO % 7.2 % (0.0-8.0); NEUT % 69.5 % (16.0-70.0); PLATELET COUNT 78 TH/MM3 (150-450); RED BLOOD COUNT 1.82 MIL/MM3 (4.50-5.90); WHITE BLOOD COUNT 2.6 TH/MM3 (4.0-11.0)
[2017-01-02 05:13] LABS: HEMO FLAGS AUTO DIFF
[2017-01-02] MEDS ORDERED: POVIDONE IODINE 5% (ANTISEPSIS KIT) 4 APPLICATIONS EACH NARE PRN (05:15)
[2017-01-02] MEDS ORDERED: METOPROLOL TARTRATE 25 MG TAB PO PRN (05:15)
[2017-01-02] MEDS ORDERED: CHLORHEXIDINE GLUCONATE 2 % 1 PACK (2 CLOTHS) TOPICAL PRN (05:15)
[2017-01-02] MEDS ORDERED: LACTATED RINGER'S 1000 ML IV PRN (05:15)
[2017-01-02 05:16] LABS: HEMATOCRIT 15.8 % (39.0-51.0)
[2017-01-02 05:20] LABS: INTERNATIONAL NORMALIZED RATIO 1.4 RATIO; PROTHROMBIN TIME - PATIENT 15.2 SEC (9.8-11.6)
[2017-01-02 05:33] LABS: BICARBONATE 22.5 MEQ/L (21.0-32.0); POTASSIUM 4.3 MEQ/L (3.5-5.1)
[2017-01-02 05:47] LABS: CALCIUM-PROTEIN CORRECTED 7.4 MG/DL (8.5-10.1)
--- NOTE | 2017-01-02 06:57 | HHI.CCPN ---
Subjective Remarks/Hospital Course The patient is a 56-year-old male with past medical history of cirrhosis of liver, portal hypertension and previous history of GI bleed, hypertension, diabetes mellitus, hepatitis C, hyperlipidemia who presented to [facility] emergency department for evaluation of a GI bleed. The patient noted melanotic stools. He denies any associated symptoms of hemoptysis, hematemesis, nausea, vomiting or any abdominal pain. In addition the patient denies any use of NSAIDs. He quit drinking alcohol approximately 6 years ago. He was recently hospitalized for GI bleed and had an upper endoscopy done on December 02, which showed portal hypertensive gastropathy in the gastric fundus with old blood. He also required paracentesis for a ascites with removal of approximately 5 liters on December 18. His initial laboratory data showed severe anemia with hemoglobin eight with hemoglobin 6.2 and hematocrit 18.9. Also the patient had a creatinine of 1.37 with a BUN of 28. He was evaluated by GI service with esophagogastroduodenoscopy in the emergency room and planned to proceed with upper endoscopy this afternoon. In addition 2 units of packed red blood cells has been ordered by emergency department. The patient also is being placed on Protonix and octreotide drips. Subjective 01/02: Afebrile. Resting in bed in no acute distress. Pale. Normotensive. EKG negative yesterday. Colonoscopy planned for today. Complaining of the bilateral lower quadrant abdominal pain. Transfusing 3 units additional PRBCs. Hemoglobin 5.4. With bowel prep positive blood. Objective Vital Signs Date Time Temp Pulse Resp B/P Pulse Ox O2 Delivery O2 Flow Rate FiO2 01/02/17 06:25 97.7 69 10 125/67 100 01/02/17 00:00 Nasal Cannula 2.00 Intake and Output 01/01/17 01/01/17 01/02/17 08:00 16:00 00:00 Intake Total 5791 ml Output Total 1250 ml Balance 4541 ml Result Diagram: 01/02/17 0426 01/02/17 0426 Other Results Microbiology Date/Time Procedure Status Source Growth 01/01/17 21:00 Aerobic Blood Culture Received Blood Peripheral Pending 01/01/17 21:00 Anaerobic Blood Culture Received Blood Peripheral Pending Objective Remarks GENERAL: 56-year-old male, critically ill currently resting in bed SKIN: Cool and dry. Pale HEAD: Atraumatic. Normocephalic. EYES: Pupils equal and round around 3 mm bilaterally and reactive. No scleral icterus. No injection or drainage. ENT: No nasal bleeding or discharge. Mucous membranes pink and moist. NECK: Trachea midline. No JVD. CARDIOVASCULAR: Regular rate and rhythm. S1, S2. No S4. Without murmur RESPIRATORY: Clear to auscultation. Breath sounds equal bilaterally. GASTROINTESTINAL: Abdomen soft, slightly protuberant. Tender to palpation bilateral lower quadrants. Hypoactive bowel sounds. No rigidity MUSCULOSKELETAL: Extremities without clubbing, cyanosis, or edema. No obvious deformities. NEUROLOGICAL: Awake and alert. No obvious cranial nerve deficits. Motor grossly within normal limits. Five out of 5 muscle strength in the arms and legs. Normal speech. A/P Assessment and Plan Neuro/Psych: Hepatic encephalopathy EtOH Resume lactulose 30 cc 3 times a day and Xifaxan 550 twice a day Recheck ammonia level in a.m. currently 53 early 53 Morphine for pain management Thiamine, folate and multivitamin daily for alcohol Monitor for DTs Continue baclofen 20 mg daily/home medication muscle spasms Continue BuSpar 10 mg by mouth 3 times a day/home medication for anxiety CV: Hypertension Dyslipidemia Patient is currently normotensive not requiring vasopressors and/or anti- hypertensives On normal saline 100 cc an hour. Switch to LR with elevated sodium Resp: Nasal cannula to maintain saturations greater than equal to 92% Incentive spirometry while awake GI: Likely lower GI bleed Hepatitis C - treatment jina History of portal vein thrombosis Cirrhosis History of internal hemorrhoids Hypo-albumin anemia EGD 01/[address] Handley revealed single varix distal esophagus, normal duodenum and gastric fundus. Retained food only. Plan colonoscopy today On Rocephin 1 g IV daily for GI bleed 7 days prophylaxis Holding home medication of pleural potential propranolol 20 mill grams daily, Lasix 40 mg by mouth daily and spironolactone 100 mg by mouth twice a day. Resume when clinically indicated Resume home medications for hepatic encephalopathy with lactulose 30 3 times a day and Xifaxan 550 twice a day. Recheck ammonia level in a.m. Currently elevated at 53. Currently Protonix drip 8 mg an hour. Currently on octreotide drip at 25mcg an hour : BPH Resume Flomax 0.4 mg by mouth daily Endo: Diabetes mellitus with neuropathy Sliding-scale insulin/medium regimen every 4 hours. Goal maintain euglycemia On Lyrica 75 mg daily for neuropathy Renal: Creatinine currently within normal limits. 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 Hemoglobins every 6 hours Coags within normal limits ID: On prophylaxis Rocephin for GI bleed Blood cultures 2 5 no growth MSK: PT/OT evaluate and treat History of prior clavicle fracture/polytrauma FEN: Hypernatremia Hypocalcemia Replace electrolytes as clinically indicated 1 g calcium gluconate IV 1 now. Switch IV fluids LR. See orders Access - Utilize peripheral IV. Central line if indicated Prophylaxis - GI - Protonix drip - DVT - SCD/pharmacological prophylaxis contraindicated with acute GI bleed Critical Care: The total critical care time was 35 minutes. Time to perform other separately billable procedures was not included in the critical care time. Kraig Isaac MD January 02, 2017 06:57
[2017-01-02] MEDS ORDERED: SODIUM CHLOR 0.45% 1000 ML INJ 1,000 ML IV SCH (07:00)
[2017-01-02 07:14] LABS: PLATELET ESTIMATE SMEAR LOW (NORMAL); PLATELET MORPHOLOGY NORMAL (NORMAL); SCAN/DIFF AUTO DIFF CONFIRMED
[2017-01-02] MEDS ORDERED: FUROSEMIDE 20 MG/2 ML VIAL IV PUSH ONE (07:15)
[2017-01-02] MEDS: LACTATED RINGER'S 1000 ML INJ 1,000 ML IV SCH ×2 (07:15→17:15)
[2017-01-02] MEDS ORDERED: CALCIUM GLUCONATE INJ 1 GM in DEXTROSE 5% IN WATER 100ML INJ 100 ML IV ONE ×2 (08:00)
[2017-01-02] MEDS: THIAMINE INJ 100 MG in SODIUM CHLORIDE 0.9% INJ 100 ML IV SCH (08:36)
[2017-01-02] MEDS: LACTULOSE SYRUP 20 GM/30 ML CUP PO SCH ×3 (08:37→17:58)
[2017-01-02] MEDS: MULTIVITAMIN TAB PO SCH (08:37)
[2017-01-02] MEDS: FOLIC ACID 1 MG TAB PO SCH (08:37)
[2017-01-02] MEDS: BACLOFEN 20 MG TAB PO SCH ×3 (08:37→17:58)
[2017-01-02] MEDS: busPIRone HCL 10 MG TAB PO SCH ×3 (08:37→17:56)
[2017-01-02] MEDS: PANTOPRAZOLE INJ 80 MG in SODIUM CHLORIDE 0.9% INJ 100 ML IV SCH ×2 (08:37→20:16)
[2017-01-02] MEDS: TAMSULOSIN HCL 0.4 MG CAP PO SCH (08:38)
[2017-01-02] MEDS: RIFAXIMIN 550 MG TAB PO SCH ×2 (08:39→20:16)
[2017-01-02] MEDS: PREGABALIN 75 MG CAP PO SCH (08:39)
--- NOTE | 2017-01-02 10:04 | EKG ---
Date Performed: 01/01/2017 Time Performed: 22:05:54 PTAGE: 56 years EKG: Sinus rhythm Normal ECG NO PREVIOUS TRACING DOCTOR: Shahnaz Mar Interpretating Date/Time 01/02/2017 10:02:42
--- NOTE | 2017-01-02 15:15 | GIPROC ---
[facility] [address] [facility], [address] COLONOSCOPY PROCEDURE REPORT EXAM DATE: 01/02/2017 PATIENT NAME: Azael Arzola MR #: [id number] BIRTHDATE: 1960 ENDOSCOPIST: Rhonda Maciel MD ORDER #: [id number] STRADDLE TRUCK OPERATOR: Beth Lopez and Aly Hanna STATUS: inpatient INDICATIONS: The patient is a 56 yr old male here for a colonoscopy due to hematochezia and iron deficiency anemia PROCEDURE PERFORMED: Colonoscopy, diagnostic MEDICATIONS: Per Anesthesia and None. PREP QUALITY: The Mitchell Bowel Prep Score was Right colon 2, Mid colon 1, and Left colon 1. Total = 4. PREP TYPE:GoLytely ESTIMATED BLOOD LOSS: None CONSENT: The patient understands the risks and benefits of the procedure and understands that these risks include, but are not limited to: sedation, allergic reaction, infection, perforation and/or bleeding. Alternative means of evaluation and treatment include, among others: physical exam, x-rays, and/or surgical intervention. The patient elects to proceed with this endoscopic procedure. medical equipment was checked for proper function. Hand hygiene and appropriate measures for infection prevention was taken. After the risks, benefits and alternatives of the procedure were thoroughly explained, Informed consent was verified, confirmed and timeout was successfully executed by the treatment team. A digital exam revealed external hemorrhoids The Pentax [id number] endoscope was introduced through the anus and advanced to the cecum, which was identified by both the appendix and ileocecal valve. The instrument was then slowly withdrawn as the colon was fully examined. COLON FINDINGS: Colon full of blood , no active bleeding seen. Retroflexed views revealed internal hemorrhoids and Retroflexed views revealed medium internal hemorrhoids The scope was then completely withdrawn from the patient and the procedure terminated. PROCEDURE WITHDRAWAL TIME:7minutes ADVERSE EVENTS: There were no complications. IMPRESSIONS: 1. Colon full of blood , no active bleeding seen 2. Retroflexed views revealed internal hemorrhoids 3. Retroflexed views revealed medium internal hemorrhoids 4. Revealed external hemorrhoids RECOMMENDATIONS: 1. Yearly hemoccult 2. Bleeding scan RECALL: Return 2 days Colonoscopy Rhonda Maciel MD eSigned: Rhonda Maciel MD 01/02/2017 3:14 PM cc: PATIENT NAME: NessAzael MR#: [id number]
[2017-01-02] MEDS ORDERED: PROPOFOL 200 MG/20 ML AMP IV ONE (15:36)
[2017-01-02] MEDS ORDERED: DO NOT ADM ANY ANTICOAGULANT DRUGS PRN (16:30)
[2017-01-02] MEDS: cefTRIAXone INJ 1,000 MG in SODIUM CHLORIDE 0.9% INJ 100 ML IV SCH (16:55)
--- NOTE | 2017-01-02 19:50 | RADRPT ---
EXAM DATE/TIME: 01/02/2017 17:07 [place] COMPARISON: No previous studies available for comparison. INDICATIONS : Blood in stool. DOSE: 21.7 mCi Tc99m Ultratag labeled red blood cells IV IMAGIN hrs MEDICAL HISTORY : Gastrointestinal bleed. Hypertension. Hypercholesterolemia. SURGICAL HISTORY : Appendectomy. Tonsillectomy. ENCOUNTER: Initial ACUITY: 1 day PAIN SCALE: 0/10 LOCATION: Abdomen. TECHNIQUE: Following the modified in vitro labeling of autologous red cells, dynamic continuous images were acqu ired for the specified interval. FINDINGS: BIODISTRIBUTION: There is a very good labeling of red cells without significant uptake in the gastric wall. There is good delineation of the blood pool of the spleen and abdominal vessels. BLEEDING: No episodes of active GI bleeding are observed during specified interval of continuous observation. CONCLUSION: 1. No active gastrointestinal bleed identified. Alfonso Hernandez MD on January 02, 2017 at 19:46 Board Certified Radiologist. This report was verified electronically.
[2017-01-02] MEDS: MORPHINE SULFATE 4 MG/ML INJ IV PUSH PRN (20:17)
[2017-01-02 22:04] LABS: HEMATOCRIT 25.7 % (39.0-51.0)
[2017-01-03] VITALS (13 sets, daily range): BP systolic 146–194; BP diastolic 69–93; PULSE 47–60; RESP 7–12; TEMP 97.7–98.7; O2SAT 93–100
[2017-01-03] MEDS: CHLORHEXIDINE GLUCONATE 2 % 1 PACK (2 CLOTHS) TOP SCH (04:00)
[2017-01-03] MEDS: LACTATED RINGER'S 1000 ML INJ 1,000 ML IV SCH (04:27)
[2017-01-03] MEDS: OCTREOTIDE INJ 500 MCG in SODIUM CHLORID 0.9% 500 ML INJ 499.5 ML IV SCH (05:27)
[2017-01-03] MEDS: INSULIN NovoLIN REGULAR SUPPLEMENTAL SCALE SQ SCH ×6 (05:27→23:42)
[2017-01-03] MEDS: PANTOPRAZOLE INJ 80 MG in SODIUM CHLORIDE 0.9% INJ 100 ML IV SCH ×2 (05:27→16:47)
[2017-01-03 05:57] LABS: APTT (PATIENT) 29.3 SEC (24.3-30.1); INTERNATIONAL NORMALIZED RATIO 1.2 RATIO; PROTHROMBIN TIME - PATIENT 13.4 SEC (9.8-11.6)
[2017-01-03 06:11] LABS: BASOPHIL % 1.3 % (0.0-2.0); EOSINOPHIL # 0.1 TH/MM3 (0-0.4); HEMATOCRIT 25.8 % (39.0-51.0); LYMPH % 22.3 % (9.0-44.0); LYMPHOCYTE # 0.7 TH/MM3 (1.0-4.8); MEAN CELL VOLUME 86.3 FL (80.0-100.0); MEAN CORPUSCULAR HEMOGLOBIN 29.4 PG (27.0-34.0); MONO % 7.1 % (0.0-8.0); NEUT % 65.3 % (16.0-70.0); PLATELET COUNT 89 TH/MM3 (150-450); RED BLOOD COUNT 2.99 MIL/MM3 (4.50-5.90); RED CELL DISTRIBUTION WIDTH 16.3 % (11.6-17.2); WHITE BLOOD COUNT 3.1 TH/MM3 (4.0-11.0)
[2017-01-03 06:13] LABS: ALKALINE PHOSPHATASE 83 U/L (45-117); ALT (GPT) 50 U/L (12-78); ANION GAP 7 MEQ/L (5-15); AST (GOT) 90 U/L (15-37); BICARBONATE 28.8 MEQ/L (21.0-32.0); BLOOD UREA NITROGEN 17 MG/DL (7-18); CHLORIDE 105 MEQ/L (98-107); GLOMERULAR FILTRATION RATE 97 ML/MIN (>89); MAGNESIUM 1.5 MG/DL (1.5-2.5); POTASSIUM 3.9 MEQ/L (3.5-5.1); SODIUM (NA) 141 MEQ/L (136-145); TOTAL BILIRUBIN ADULT 1.6 MG/DL (0.2-1.0)
[2017-01-03 06:15] LABS: CREATINE KINASE 50 U/L (39-308)
[2017-01-03 06:38] LABS: HEMO FLAGS AUTO DIFF
--- NOTE | 2017-01-03 07:16 | HHI.CCPN ---
Subjective Remarks/Hospital Course The patient is a 56-year-old male with past medical history of cirrhosis of liver, portal hypertension and previous history of GI bleed, hypertension, diabetes mellitus, hepatitis C, hyperlipidemia who presented to [facility] emergency department for evaluation of a GI bleed. The patient noted melanotic stools. He denies any associated symptoms of hemoptysis, hematemesis, nausea, vomiting or any abdominal pain. In addition the patient denies any use of NSAIDs. He quit drinking alcohol approximately 6 years ago. He was recently hospitalized for GI bleed and had an upper endoscopy done on December 02, which showed portal hypertensive gastropathy in the gastric fundus with old blood. He also required paracentesis for a ascites with removal of approximately 5 liters on December 18. His initial laboratory data showed severe anemia with hemoglobin eight with hemoglobin 6.2 and hematocrit 18.9. Also the patient had a creatinine of 1.37 with a BUN of 28. He was evaluated by GI service with esophagogastroduodenoscopy in the emergency room and planned to proceed with upper endoscopy this afternoon. In addition 2 units of packed red blood cells has been ordered by emergency department. The patient also is being placed on Protonix and octreotide drips. 01/02: Afebrile. Resting in bed in no acute distress. Pale. Normotensive. EKG negative yesterday. Colonoscopy planned for today. Complaining of the bilateral lower quadrant abdominal pain. Transfusing 3 units additional PRBCs. Hemoglobin 5.4. With bowel prep positive blood. Subjective 01/03: Afebrile. Continues to have bright red/clots with bowel movements. Denies chest pain and abdominal pain currently. Tolerating clear liquid diet. Objective Vital Signs Date Time Temp Pulse Resp B/P Pulse Ox O2 Delivery O2 Flow Rate FiO2 01/03/17 06:00 54 01/03/17 04:00 98.3 10 155/76 95 01/02/17 19:00 Room Air 01/02/17 08:19 2.00 Intake and Output 01/02/17 01/02/17 01/03/17 08:00 16:00 00:00 Intake Total 887 ml 1907 ml 807 ml Output Total 1450 ml 1000 ml Balance 887 ml 457 ml -193 ml Result Diagram: 01/03/17 0511 01/03/17 05 Other Results Microbiology Date/Time Procedure Status Source Growth 01/01/17 21:00 Aerobic Blood Culture - Preliminary Resulted Blood Peripheral NO GROWTH IN 1 DAY 01/01/17 21:00 Anaerobic Blood Culture - Preliminary Resulted Blood Peripheral NO GROWTH IN 1 DAY Imaging Last Impressions GI Bleed Scan Nuclear Medicine 01/02/17 0000 Signed Impressions: Service Date/Time: Monday, January 02, 2017 17:07 - CONCLUSION: 1. No active gastrointestinal bleed identified. Alfonso Hernandez MD Objective Remarks GENERAL: 56-year-old male, critically ill currently resting in bed SKIN: Cool and dry. Pale HEAD: Atraumatic. Normocephalic. EYES: Pupils equal and round around 3 mm bilaterally and reactive. No scleral icterus. No injection or drainage. ENT: No nasal bleeding or discharge. Mucous membranes pink and moist. NECK: Trachea midline. No JVD. CARDIOVASCULAR: Bradycardia, RR. S1, S2. No S4. Without murmur RESPIRATORY: Clear to auscultation. Breath sounds equal bilaterally. GASTROINTESTINAL: Abdomen soft, slightly protuberant. Tender to palpation bilateral lower quadrants. Hypoactive bowel sounds. No rigidity MUSCULOSKELETAL: Extremities without clubbing, cyanosis, or edema. No obvious deformities. NEUROLOGICAL: Awake and alert. No obvious cranial nerve deficits. Motor grossly within normal limits. Five out of 5 muscle strength in the arms and legs. Normal speech. A/P Assessment and Plan Neuro/Psych: Hepatic encephalopathy EtOH Resume lactulose 30 cc 3 times a day and Xifaxan 550 twice a day Recheck ammonia level in a.m. currently 31 Morphine for pain management Thiamine, folate and multivitamin daily for alcohol Monitor for DTs Continue baclofen 20 mg daily/home medication muscle spasms Continue BuSpar 10 mg by mouth 3 times a day/home medication for anxiety CV: Hypertension Dyslipidemia Sinus bradycardia Patient is currently normotensive not requiring vasopressors and/or anti- hypertensives On LR at 100 cc an hour. Discontinue today Resume propranolol at 10 mg twice a day. Hold if bradycardic. As needed hydralazine/Nitropaste for breakthrough hypertension Resp: Nasal cannula to maintain saturations greater than equal to 92% Incentive spirometry while awake GI: Likely lower GI bleed Hepatitis C - treatment jina History of portal vein thrombosis Cirrhosis History of internal hemorrhoids Hypo-albumin anemia Internal hemorrhoids EGD 01/[address] Zulfiquar revealed single varix distal esophagus, normal duodenum and gastric fundus. Retained food only. Colonoscopies 01/02 revealed blood throughout colon. No active source of bleeding. Internal hemorrhoids. Bleeding scan 01/02 revealed no source of bleeding On Rocephin 1 g IV daily for GI bleed 7 days prophylaxis Initially holding home medication of pleural potential propranolol 20 mill grams 3 times a day, Lasix 40 mg by mouth daily and spironolactone 100 mg by mouth twice a day. Resuming at lower dose of propranolol 10 twice a day, Lasix 20 daily spironolactone 25 twice a day with appropriate holding parameters Resume home medications for hepatic encephalopathy with lactulose 30 3 times a day and Xifaxan 550 twice a day. Recheck ammonia level in a.m. 31 Currently Protonix drip 8 mg an hour. Currently on octreotide drip at 25mcg an hour : BPH Resume Flomax 0.4 mg by mouth daily Endo: Diabetes mellitus with neuropathy Sliding-scale insulin/medium regimen every before meals/at bedtime. Goal maintain euglycemia On Lyrica 75 mg daily for neuropathy Renal: Creatinine currently within normal limits. 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 Hemoglobin currently 8.8 Hemoglobins every 6 hours Coags within normal limits ID: On prophylaxis Rocephin for GI bleed Blood cultures 2 01/01 no growth MSK: PT/OT evaluate and treat History of prior clavicle fracture/polytrauma FEN: Hypernatremia Hypocalcemia Replace electrolytes as clinically indicated 1 g calcium gluconate IV 1 on 01/02 Recheck labs in a.m. Access - Utilize peripheral IV. Central line if indicated Prophylaxis - GI - Protonix drip - DVT - SCD/pharmacological prophylaxis contraindicated with acute GI bleed Critical Care: The total critical care time was 35 minutes. Time to perform other separately billable procedures was not included in the critical care time. Kraig Isaac MD January 03, 2017 07:16
[2017-01-03] MEDS ORDERED: NITROGLYCERIN 2% OINT 1 GM PACKET TOPICAL PRN (08:00)
[2017-01-03] MEDS: THIAMINE INJ 100 MG in SODIUM CHLORIDE 0.9% INJ 100 ML IV SCH (09:00)
[2017-01-03] MEDS: MAGNESIUM SULFATE 1 GM PREMIX 100 ML IV SCH ×3 (09:15→09:27)
[2017-01-03] MEDS: PREGABALIN 75 MG CAP PO SCH (09:18)
[2017-01-03] MEDS: FUROSEMIDE 20 MG TAB PO SCH (09:18)
[2017-01-03] MEDS: busPIRone HCL 10 MG TAB PO SCH ×3 (09:18→16:43)
[2017-01-03] MEDS: RIFAXIMIN 550 MG TAB PO SCH ×2 (09:18→19:58)
[2017-01-03] MEDS: TAMSULOSIN HCL 0.4 MG CAP PO SCH (09:18)
[2017-01-03] MEDS: SPIRONOLACTONE 25 MG TAB PO SCH ×2 (09:19→16:43)
[2017-01-03] MEDS: BACLOFEN 20 MG TAB PO SCH ×3 (09:19→16:43)
[2017-01-03] MEDS: PROPRANOLOL HCL 10 MG TAB PO SCH ×3 (09:19→21:00)
[2017-01-03] MEDS: MULTIVITAMIN TAB PO SCH (09:19)
[2017-01-03] MEDS: FOLIC ACID 1 MG TAB PO SCH (09:19)
[2017-01-03] MEDS: LACTULOSE SYRUP 20 GM/30 ML CUP PO SCH ×3 (09:19→16:43)
[2017-01-03] MEDS: MORPHINE SULFATE 4 MG/ML INJ IV PUSH PRN ×2 (09:46→19:58)
[2017-01-03 09:50] LABS: PLATELET ESTIMATE SMEAR LOW (NORMAL)
[2017-01-03 09:51] LABS: PLATELET MORPHOLOGY NORMAL (NORMAL); SCAN/DIFF AUTO DIFF CONFIRMED
[2017-01-03 11:37] LABS: HEMATOCRIT 26.9 % (39.0-51.0)
[2017-01-03 11:38] LABS: REVIEW FLAG FINAL
--- NOTE | 2017-01-03 15:17 | HHI.GIFU ---
Subjective Remarks Pt sitting in bed, watching TV. Denies bleeding, n/v, abd pain. (Carissa Zhu) Objective Vitals I&O Vital Signs Date Time Temp Pulse Resp B/P Pulse Ox O2 Delivery O2 Flow Rate FiO2 01/03/17 12:00 47 01/03/17 12:00 98.0 47 7 146/69 96 01/03/17 10:00 55 10 148/78 93 01/03/17 10:00 51 01/03/17 08:36 94 21 01/03/17 08:00 55 01/03/17 08:00 98.5 55 11 148/78 96 01/03/17 06:00 54 01/03/17 04:00 50 01/03/17 04:00 98.3 50 10 155/76 95 01/03/17 02:00 54 01/03/17 00:00 52 01/03/17 00:00 97.7 52 10 147/75 96 01/02/17 22:00 64 01/02/17 20:00 58 01/02/17 20:00 98.7 58 12 124/60 96 01/02/17 19:00 96 Room Air 01/02/17 18:00 62 01/02/17 16:00 54 01/02/17 16:00 97.8 54 13 140/77 100 I/O 01/02/17 01/02/17 01/02/17 01/03/17 01/03/17 01/03/17 07:00 15:00 23:00 07:00 15:00 23:00 Intake Total 887 ml 1907 ml 807 ml 1280 ml Output Total 1450 ml 1000 ml 475 ml Balance 887 ml 457 ml -193 ml 805 ml Intake Oral 180 ml IV Total 887 ml 457 ml 807 ml 1100 ml Packed Cells 750 ml Other 700 ml Output Urine Total 1450 ml 1000 ml 475 ml # Voids 2 # Bowel Movements 2 3 1 3 Laboratory Laboratory Tests Test 01/02/17 01/03/17 01/03/17 01/03/17 21:10 05:11 05:17 11:22 Hemoglobin 9.1 8.8 9.4 Hematocrit 25.7 25.8 26.9 White Blood Count 3.1 Red Blood Count 2.99 Mean Corpuscular Volume 86.3 Mean Corpuscular Hemoglobin 29.4 Mean Corpuscular Hemoglobin 34.0 Concent Red Cell Distribution Width 16.3 Platelet Count 89 Mean Platelet Volume 10.3 Neutrophils (%) (Auto) 65.3 Lymphocytes (%) (Auto) 22.3 Monocytes (%) (Auto) 7.1 Eosinophils (%) (Auto) 4.0 Basophils (%) (Auto) 1.3 Neutrophils # (Auto) 2.0 Lymphocytes # (Auto) 0.7 Monocytes # (Auto) 0.2 Eosinophils # (Auto) 0.1 Basophils # (Auto) 0.0 CBC Comment AUTO DIFF Differential Comment AUTO DIFF CONFIRMED Platelet Estimate LOW Platelet Morphology Comment NORMAL Prothrombin Time 13.4 Prothromb Time International 1.2 Ratio Activated Partial 29.3 Thromboplast Time Fibrinogen 122 Ammonia 31 Sodium Level 141 Potassium Level 3.9 Chloride Level 105 Carbon Dioxide Level 28.8 Anion Gap 7 Blood Urea Nitrogen 17 Creatinine 0.82 Estimat Glomerular Filtration 97 Rate Random Glucose 167 Lactic Acid Level 1.7 Calcium Level 8.1 Phosphorus Level 3.4 Magnesium Level 1.5 Total Bilirubin 1.6 Aspartate Amino Transf 90 (AST/SGOT) Alanine Aminotransferase 50 (ALT/SGPT) Alkaline Phosphatase 83 Total Creatine Kinase 50 Total Protein 6.2 Albumin 2.4 Date/Time Procedure Status Source Growth 01/01/17 21:00 Aerobic Blood Culture - Preliminary Resulted Blood Peripheral NO GROWTH IN 2 DAYS 01/01/17 21:00 Anaerobic Blood Culture - Preliminary Resulted Blood Peripheral NO GROWTH IN 2 DAYS Imaging Last Impressions GI Bleed Scan Nuclear Medicine 01/02/17 0000 Signed Impressions: Service Date/Time: Monday, January 02, 2017 17:07 - CONCLUSION: 1. No active gastrointestinal bleed identified. Alfonso Hernandez MD Physical Exam HEENT: EOMI; normocephalic; atraumatic; no jaundice. CHEST: Chest is clear to auscultation and percussion. CARDIAC: Regular rate and rhythm with no murmur gallop or rubs. ABDOMEN: Soft, protuberant, nontender; no hepatosplenomegaly; bowel sounds are present in all four quadrants. EXTREMITIES: No clubbing, cyanosis, or edema. SKIN: Normal; no rash; no jaundice. OPERATOR RECEPTIONIST: No focal deficits; alert and oriented times three. (Carissa Zhu) Assessment and Plan Plan ASSESSMENT - GIB, hematochezia. Hx cirrhosis, portal gastropathy. s/p colonoscopy --> colon full of blood no active bleeding seen, hemorrhoids. Previous hospitalization he had EGD 12-02 --> Portal hypertensive gastropathy, old blood. - anemia, secondary to above. Today HH 9.4, 26.9 HH on admission was 6.2, 18.9 , received blood. - cirrhosis, secondary to HCV, ETOH. Hep c tx naive. Had paracentesis 12/18 with 5000cc removed. diuretics. PLAN - JEREMY - protonix - ocreotide - monitor HH - tranfuse as necessary - propanolol - diuretics - supportive care THis pt seen by myself and Dr Maciel and this note is written on his behalf ( Carissa Zhu) Physician Comments Seen and examined, no active bleeding. Advance diet. Repeat colonoscopy next week. (Rhonda Maciel MD) Carissa Zhu January 03, 2017 15:17 Rhonda Maciel MD January 03, 2017 16:43
[2017-01-03] MEDS: cefTRIAXone INJ 1,000 MG in SODIUM CHLORIDE 0.9% INJ 100 ML IV SCH (16:43)
[2017-01-03 20:46] LABS: HEMATOCRIT 30.1 % (39.0-51.0)
[2017-01-03 20:47] LABS: REVIEW FLAG FINAL
[2017-01-03] MEDS: hydrALAZINE HCL 20 MG/ML VIAL IV PUSH PRN (21:19)
[2017-01-04] VITALS (16 sets, daily range): BP systolic 113–165; BP diastolic 57–82; PULSE 49–64; RESP 4–17; TEMP 97.9–98.7; O2SAT 98–100
[2017-01-04 00:49] LABS: HEMATOCRIT 28.2 % (39.0-51.0); REVIEW FLAG FINAL
[2017-01-04] MEDS: OCTREOTIDE INJ 500 MCG in SODIUM CHLORID 0.9% 500 ML INJ 499.5 ML IV SCH ×2 (00:51→23:21)
[2017-01-04] MEDS: PANTOPRAZOLE INJ 80 MG in SODIUM CHLORIDE 0.9% INJ 100 ML IV SCH ×3 (00:51→20:37)
[2017-01-04] MEDS: MORPHINE SULFATE 4 MG/ML INJ IV PUSH PRN ×2 (00:51→10:25)
[2017-01-04] MEDS: CHLORHEXIDINE GLUCONATE 2 % 1 PACK (2 CLOTHS) TOP SCH (04:00)
[2017-01-04] MEDS: INSULIN NovoLIN REGULAR SUPPLEMENTAL SCALE SQ SCH ×6 (04:00→23:21)
[2017-01-04 04:10] LABS: AUTOMATED NEUTROPHIL # 1.8 TH/MM3 (1.8-7.7); EOSINOPHIL # 0.1 TH/MM3 (0-0.4); HEMATOCRIT 26.2 % (39.0-51.0); LYMPH % 21.3 % (9.0-44.0); LYMPHOCYTE # 0.6 TH/MM3 (1.0-4.8); MEAN CORPUSCULAR HEMOGLOBIN 28.8 PG (27.0-34.0); MEAN CORPUSCULAR HGB CONC 33.5 % (32.0-36.0); MONO % 9.1 % (0.0-8.0); NEUT % 63.6 % (16.0-70.0); PLATELET COUNT 98 TH/MM3 (150-450); RED BLOOD COUNT 3.05 MIL/MM3 (4.50-5.90); RED CELL DISTRIBUTION WIDTH 16.8 % (11.6-17.2); WHITE BLOOD COUNT 2.9 TH/MM3 (4.0-11.0)
[2017-01-04 04:34] LABS: ANION GAP 6 MEQ/L (5-15); AST (GOT) 66 U/L (15-37); BICARBONATE 31.5 MEQ/L (21.0-32.0); BLOOD UREA NITROGEN 14 MG/DL (7-18); CHLORIDE 104 MEQ/L (98-107); GLOMERULAR FILTRATION RATE 111 ML/MIN (>89); MAGNESIUM 1.6 MG/DL (1.5-2.5); POTASSIUM 3.7 MEQ/L (3.5-5.1); SODIUM (NA) 141 MEQ/L (136-145)
[2017-01-04 04:35] LABS: HEMO FLAGS AUTO DIFF
[2017-01-04 04:37] LABS: ALKALINE PHOSPHATASE 84 U/L (45-117); ALT (GPT) 40 U/L (12-78); TOTAL BILIRUBIN ADULT 1.3 MG/DL (0.2-1.0)
[2017-01-04 06:17] LABS: ACANTHOCYTES OCC (NORMAL); KERATOCYTES OCC (NORMAL); OVALOCYTES 1+ (NORMAL); PLATELET ESTIMATE SMEAR LOW (NORMAL); PLATELET MORPHOLOGY NORMAL (NORMAL); SCAN/DIFF AUTO DIFF CONFIRMED
[2017-01-04] MEDS: THIAMINE INJ 100 MG in SODIUM CHLORIDE 0.9% INJ 100 ML IV SCH (09:00)
[2017-01-04] MEDS: RIFAXIMIN 550 MG TAB PO SCH ×2 (10:22→20:37)
[2017-01-04] MEDS: FUROSEMIDE 20 MG TAB PO SCH (10:22)
[2017-01-04] MEDS: PROPRANOLOL HCL 10 MG TAB PO SCH ×2 (10:22→20:37)
[2017-01-04] MEDS: BACLOFEN 20 MG TAB PO SCH ×3 (10:22→18:15)
[2017-01-04] MEDS: TAMSULOSIN HCL 0.4 MG CAP PO SCH (10:22)
[2017-01-04] MEDS: FOLIC ACID 1 MG TAB PO SCH (10:23)
[2017-01-04] MEDS: SPIRONOLACTONE 25 MG TAB PO SCH ×2 (10:23→18:15)
[2017-01-04] MEDS: LACTULOSE SYRUP 20 GM/30 ML CUP PO SCH ×3 (10:23→18:15)
[2017-01-04] MEDS: busPIRone HCL 10 MG TAB PO SCH ×3 (10:23→18:15)
[2017-01-04] MEDS: PREGABALIN 75 MG CAP PO SCH (10:23)
[2017-01-04] MEDS: MULTIVITAMIN TAB PO SCH (10:23)
[2017-01-04 12:45] LABS: HEMATOCRIT 27.3 % (39.0-51.0)
[2017-01-04 12:50] LABS: REVIEW FLAG FINAL
--- NOTE | 2017-01-04 13:34 | HHI.CCPN ---
Subjective Remarks/Hospital Course The patient is a 56-year-old male with past medical history of cirrhosis of liver, portal hypertension and previous history of GI bleed, hypertension, diabetes mellitus, hepatitis C, hyperlipidemia who presented to [facility] emergency department for evaluation of a GI bleed. The patient noted melanotic stools. He denies any associated symptoms of hemoptysis, hematemesis, nausea, vomiting or any abdominal pain. In addition the patient denies any use of NSAIDs. He quit drinking alcohol approximately 6 years ago. He was recently hospitalized for GI bleed and had an upper endoscopy done on December 02, which showed portal hypertensive gastropathy in the gastric fundus with old blood. He also required paracentesis for a ascites with removal of approximately 5 liters on December 18. His initial laboratory data showed severe anemia with hemoglobin eight with hemoglobin 6.2 and hematocrit 18.9. Also the patient had a creatinine of 1.37 with a BUN of 28. He was evaluated by GI service with esophagogastroduodenoscopy in the emergency room and planned to proceed with upper endoscopy this afternoon. In addition 2 units of packed red blood cells has been ordered by emergency department. The patient also is being placed on Protonix and octreotide drips. 01/02: Afebrile. Resting in bed in no acute distress. Pale. Normotensive. EKG negative yesterday. Colonoscopy planned for today. Complaining of the bilateral lower quadrant abdominal pain. Transfusing 3 units additional PRBCs. Hemoglobin 5.4. With bowel prep positive blood. Subjective 01/03: Afebrile. Continues to have bright red/clots with bowel movements. Denies chest pain and abdominal pain currently. Tolerating clear liquid diet. 01/04 Patient is lying in bed in NAD. Afebrile. H/H stable. Objective Vital Signs Date Time Temp Pulse Resp B/P Pulse Ox O2 Delivery O2 Flow Rate FiO2 01/04/17 08:49 99 21 01/04/17 06:00 58 01/04/17 04:00 98.3 10 128/60 01/02/17 19:00 Room Air 01/02/17 08:19 2.00 Intake and Output 01/03/17 01/03/17 01/04/17 08:00 16:00 00:00 Intake Total 1280 ml 2043 ml 512 ml Output Total 475 ml 2420 ml Balance 805 ml -377 ml 512 ml Result Diagram: 01/04/17 1230 01/04/17 0337 Other Results Laboratory Tests Test 01/03/17 01/04/17 01/04/17 01/04/17 20:20 00:40 03:37 12:30 Hemoglobin 9.9 GM/DL 9.6 GM/DL 8.8 GM/DL 8.9 GM/DL Hematocrit 30.1 % 28.2 % 26.2 % 27.3 % White Blood Count 2.9 TH/MM3 Red Blood Count 3.05 MIL/MM3 Mean Corpuscular Volume 86.0 FL Mean Corpuscular Hemoglobin 28.8 PG Mean Corpuscular Hemoglobin 33.5 % Concent Red Cell Distribution Width 16.8 % Platelet Count 98 TH/MM3 Mean Platelet Volume 9.9 FL Neutrophils (%) (Auto) 63.6 % Lymphocytes (%) (Auto) 21.3 % Monocytes (%) (Auto) 9.1 % Eosinophils (%) (Auto) 5.0 % Basophils (%) (Auto) 1.0 % Neutrophils # (Auto) 1.8 TH/MM3 Lymphocytes # (Auto) 0.6 TH/MM3 Monocytes # (Auto) 0.3 TH/MM3 Eosinophils # (Auto) 0.1 TH/MM3 Basophils # (Auto) 0.0 TH/MM3 CBC Comment AUTO DIFF Differential Comment AUTO DIFF CONFIRMED Platelet Estimate LOW Platelet Morphology Comment NORMAL Ovalocytes 1+ Acanthocytes OCC Keratocytes OCC Sodium Level 141 MEQ/L Potassium Level 3.7 MEQ/L Chloride Level 104 MEQ/L Carbon Dioxide Level 31.5 MEQ/L Anion Gap 6 MEQ/L Blood Urea Nitrogen 14 MG/DL Creatinine 0.73 MG/DL Estimat Glomerular Filtration 111 ML/MIN Rate Random Glucose 113 MG/DL Calcium Level 8.4 MG/DL Phosphorus Level 3.7 MG/DL Magnesium Level 1.6 MG/DL Total Bilirubin 1.3 MG/DL Aspartate Amino Transf 66 U/L (AST/SGOT) Alanine Aminotransferase 40 U/L (ALT/SGPT) Alkaline Phosphatase 84 U/L Total Protein 6.1 GM/DL Albumin 2.4 GM/DL Imaging Last Impressions GI Bleed Scan Nuclear Medicine 01/02/17 0000 Signed Impressions: Service Date/Time: Monday, January 02, 2017 17:07 - CONCLUSION: 1. No active gastrointestinal bleed identified. Alfonso Hernandez MD Objective Remarks GENERAL: Patient is lying in bed in NAD SKIN: Warm and dry. HEAD: Normocephalic. EYES: No scleral icterus. No injection or drainage. NECK: Supple, trachea midline. No JVD or lymphadenopathy. CARDIOVASCULAR: Regular rate and rhythm without murmurs, gallops, or rubs. RESPIRATORY: Breath sounds equal bilaterally. No accessory muscle use. GASTROINTESTINAL: Abdomen soft, non-tender, nondistended. MUSCULOSKELETAL: No cyanosis, or edema. Neuro: Awake and alert A/P Assessment and Plan Neuro/Psych: Hepatic encephalopathy EtOH On lactulose 30 cc 3 times a day and Xifaxan 550 twice a day Ammonia level 31 on 01/03 Morphine for pain management Thiamine, folate and multivitamin daily for alcohol Monitor for DTs Continue baclofen 20 mg daily/home medication muscle spasms Continue BuSpar 10 mg by mouth 3 times a day/home medication for anxiety CV: Hypertension Dyslipidemia Sinus bradycardia Monitor HR and BP keep MAP>65mmHg On Inderal 10mg !2, Aldactone 25mg BID, Lasix 20mg daily As needed hydralazine/Nitropaste for breakthrough hypertension Resp: Oxygen PRN keep sat > 92% Incentive spirometry while awake GI: Likely lower GI bleed Hepatitis C - treatment jina History of portal vein thrombosis Cirrhosis History of internal hemorrhoids Hypo-albumin anemia Internal hemorrhoids EGD 01/[address] Handley revealed single varix distal esophagus, normal duodenum and gastric fundus. Retained food only. Colonoscopy 01/02 revealed blood throughout colon. No active source of bleeding. Internal hemorrhoids. Bleeding scan 01/02 revealed no source of bleeding On Rocephin 1 g IV daily for GI bleed 7 days prophylaxis On Octreotide and Protonix drips- d/c Octreotide and change to IV Protonix 40mg Q12 if ok with GI On PO diet : BPH On Flomax 0.4 mg by mouth daily Monitor renal function, electrolytes replacement as needed Endo: Diabetes mellitus with neuropathy Sliding-scale insulin/medium regimen every before meals/at bedtime. 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 Prophylaxis - GI - Protonix drip - DVT - SCD/pharmacological prophylaxis contraindicated with acute GI bleed Will sign off and transfer care to [facility] Level 3 Rony Mckeon MD January 04, 2017 13:34
[2017-01-04] MEDS: cefTRIAXone INJ 1,000 MG in SODIUM CHLORIDE 0.9% INJ 100 ML IV SCH (15:32)
--- NOTE | 2017-01-04 15:48 | HHI.GIFU ---
Subjective Remarks Resting in bed. No active bleeding today. Did have bleeding yesterday. Tolerating diet. No pain. (Yumiko Vale) Objective Vitals I&O Vital Signs Date Time Temp Pulse Resp B/P Pulse Ox O2 Delivery O2 Flow Rate FiO2 01/04/17 08:49 99 21 01/04/17 06:00 58 01/04/17 04:51 100 21 01/04/17 04:00 52 01/04/17 04:00 98.3 52 10 128/60 99 01/04/17 02:00 50 01/04/17 00:00 54 01/04/17 00:00 98.3 54 12 113/64 99 01/03/17 22:00 54 01/03/17 20:00 98.1 60 10 163/73 99 01/03/17 20:00 60 01/03/17 18:00 60 12 182/93 93 01/03/17 18:00 60 01/03/17 16:00 52 01/03/17 16:00 98.7 52 12 194/89 100 I/O 01/03/17 01/03/17 01/03/17 01/04/17 01/04/17 01/04/17 07:00 15:00 23:00 07:00 15:00 23:00 Intake Total 1280 ml 2043 ml 512 ml 392 ml Output Total 475 ml 2420 ml 1150 ml Balance 805 ml -377 ml 512 ml -758 ml Intake Oral 180 ml 920 ml 360 ml 60 ml IV Total 1100 ml 1123 ml 152 ml 332 ml Output Urine Total 475 ml 1920 ml 1000 ml Stool Total 500 ml 150 ml # Voids 2 # Bowel Movements 3 1 3 Laboratory Laboratory Tests Test 01/03/17 01/04/17 01/04/17 01/04/17 20:20 00:40 03:37 12:30 Hemoglobin 9.9 9.6 8.8 8.9 Hematocrit 30.1 28.2 26.2 27.3 White Blood Count 2.9 Red Blood Count 3.05 Mean Corpuscular Volume 86.0 Mean Corpuscular Hemoglobin 28.8 Mean Corpuscular Hemoglobin 33.5 Concent Red Cell Distribution Width 16.8 Platelet Count 98 Mean Platelet Volume 9.9 Neutrophils (%) (Auto) 63.6 Lymphocytes (%) (Auto) 21.3 Monocytes (%) (Auto) 9.1 Eosinophils (%) (Auto) 5.0 Basophils (%) (Auto) 1.0 Neutrophils # (Auto) 1.8 Lymphocytes # (Auto) 0.6 Monocytes # (Auto) 0.3 Eosinophils # (Auto) 0.1 Basophils # (Auto) 0.0 CBC Comment AUTO DIFF Differential Comment AUTO DIFF CONFIRMED Platelet Estimate LOW Platelet Morphology Comment NORMAL Ovalocytes 1+ Acanthocytes OCC Keratocytes OCC Sodium Level 141 Potassium Level 3.7 Chloride Level 104 Carbon Dioxide Level 31.5 Anion Gap 6 Blood Urea Nitrogen 14 Creatinine 0.73 Estimat Glomerular Filtration 111 Rate Random Glucose 113 Calcium Level 8.4 Phosphorus Level 3.7 Magnesium Level 1.6 Total Bilirubin 1.3 Aspartate Amino Transf 66 (AST/SGOT) Alanine Aminotransferase 40 (ALT/SGPT) Alkaline Phosphatase 84 Total Protein 6.1 Albumin 2.4 Date/Time Procedure Status Source Growth 01/01/17 21:00 Aerobic Blood Culture - Preliminary Resulted Blood Peripheral NO GROWTH IN 3 DAYS 01/01/17 21:00 Anaerobic Blood Culture - Preliminary Resulted Blood Peripheral NO GROWTH IN 3 DAYS Imaging Last Impressions GI Bleed Scan Nuclear Medicine 01/02/17 0000 Signed Impressions: Service Date/Time: Monday, January 02, 2017 17:07 - CONCLUSION: 1. No active gastrointestinal bleed identified. Alfonso Hernandez MD Physical Exam HEENT: Normocephalic; atraumatic CHEST: CTA CARDIAC: RRR ABDOMEN: Soft, mildly bloated, nontender; no hepatosplenomegaly; bowel sounds are present in all four quadrants. EXTREMITIES: No clubbing, cyanosis, or edema. SKIN: Normal; no rash; no jaundice. ASSEMBLY INSPECTOR: No focal deficits; alert and oriented times three. (Yumiko Vale MEDICAL UNIT SECRETARY) Assessment and Plan Plan ASSESSMENT - GIB, hematochezia. Hx cirrhosis, portal gastropathy. S/P EGD (12-02-16)----- > Portal hypertensive gastropathy, old blood. S/P Colonoscopy (01-01-17)-----> colon full of blood, no active bleeding seen, hemorrhoids. GI Bleeding Scan (01/02/17)---> 1. No active gastrointestinal bleed identified. Had bleeding yesterday, none today. Will plan for repeat colonoscopy in am. S/P 5 units, HH 8./.3 today. - Anemia secondary to acute blood loss. S/P 5 units PRBC. H/H 8.9/.3. - Cirrhosis, secondary to HCV, ETOH. Hep c tx naive. Had paracentesis 12/18 with 5000cc removed. diuretics. - DM, Neutropenia, per primary PLAN - Plan for rpt egd/colonoscopy in am - Obtain consents - Clear liquids - NPO after MN - Golytely prep - Cont. - protonix gtt - ocreotide tt - Monitor HH - Transfuse as necessary - Cont. Lasix, Spironolactone - Cont. Propranolol - Supportive care - Pt seen and examined by Dr. Minor and myself and this note is written on his behalf (Yumiko Vale) Physician Comments seen, examined agree with above (Jody Minor MD) Yumiko Vale January 04, 2017 15:48 Jody Mnior MD January 04, 2017 21:12
[2017-01-04] MEDS ORDERED: PEG (High)/E-LYTE SOLN 4000 ML BTL PO ONE (16:00)
[2017-01-04 20:31] LABS: REVIEW FLAG FINAL
[2017-01-04] MEDS: hydrALAZINE HCL 20 MG/ML VIAL IV PUSH PRN (20:37)
[2017-01-05] VITALS (12 sets, daily range): BP systolic 109–179; BP diastolic 55–79; PULSE 50–82; RESP 10–24; TEMP 97.9–98.6; O2SAT 95–100
[2017-01-05 01:44] LABS: HEMATOCRIT 28.8 % (39.0-51.0); REVIEW FLAG FINAL
[2017-01-05] MEDS: INSULIN NovoLIN REGULAR SUPPLEMENTAL SCALE SQ SCH ×5 (04:00→20:00)
[2017-01-05 04:15] LABS: AUTOMATED NEUTROPHIL # 1.7 TH/MM3 (1.8-7.7); EOSINOPHIL # 0.1 TH/MM3 (0-0.4); EOSINOPHIL % 2.9 % (0.0-4.0); HEMATOCRIT 27.2 % (39.0-51.0); HEMO FLAGS DIFF FINAL; LYMPH % 21.9 % (9.0-44.0); LYMPHOCYTE # 0.6 TH/MM3 (1.0-4.8); MEAN CELL VOLUME 86.6 FL (80.0-100.0); MEAN CORPUSCULAR HEMOGLOBIN 29.6 PG (27.0-34.0); MEAN CORPUSCULAR HGB CONC 34.2 % (32.0-36.0); MONO % 9.7 % (0.0-8.0); NEUT % 64.5 % (16.0-70.0); PLATELET COUNT 104 TH/MM3 (150-450); RED BLOOD COUNT 3.14 MIL/MM3 (4.50-5.90); WHITE BLOOD COUNT 2.7 TH/MM3 (4.0-11.0)
[2017-01-05 04:31] LABS: BICARBONATE 28.7 MEQ/L (21.0-32.0); MAGNESIUM 1.7 MG/DL (1.5-2.5); POTASSIUM 3.8 MEQ/L (3.5-5.1)
[2017-01-05] MEDS: CHLORHEXIDINE GLUCONATE 2 % 1 PACK (2 CLOTHS) TOP SCH (05:57)
[2017-01-05] MEDS: busPIRone HCL 10 MG TAB PO SCH ×3 (09:00→17:01)
[2017-01-05] MEDS: SPIRONOLACTONE 25 MG TAB PO SCH ×2 (09:00→17:02)
[2017-01-05] MEDS: RIFAXIMIN 550 MG TAB PO SCH ×2 (09:00→20:22)
[2017-01-05] MEDS: LACTULOSE SYRUP 20 GM/30 ML CUP PO SCH ×3 (09:00→17:02)
[2017-01-05] MEDS: BACLOFEN 20 MG TAB PO SCH ×3 (09:00→17:01)
[2017-01-05] MEDS: PROPRANOLOL HCL 10 MG TAB PO SCH ×2 (09:00→20:22)
[2017-01-05] MEDS: THIAMINE INJ 100 MG in SODIUM CHLORIDE 0.9% INJ 100 ML IV SCH (09:20)
--- NOTE | 2017-01-05 09:26 | MB ---
PT cc: RADHA COLORADO DATE OF CONSULTATION 01/04/2017 DATE OF 1960 DATE OF ADMISSION 01/01/[address] Mckeon. CONSULTING PHYS[address]IAN Dr. Radha Colorado. REASON FOR ADMISSION Assist in medical management and taking over patient. HISTORY OF THE PRESENT ILLNESS The patient is a very pleasant 56-year male with a significant past history of cirrhosis of the liver, portal hypertension, GI bleed, hypertension, diabetes, hepatitis C. The patient came to the ER because of the maroonish or black tarry colored stools. The patient was admitted to the ICU. The patient was seen and followed by registered nurse fetal. The patient had multiple transfusions. The patient has a EGD done. EGD showed the patient had a normal duodenal mucosa. He retained food in his stomach. No blood seen. He had retroflexed uvula. No abnormality. The patient had a colonoscopy done. Colonoscopy shows patient has a colon full of blood. No active bleeding seen. Retroflexed view revealed internal hemorrhoids and revealed external hemorrhoids as well. A bleeding scan was done. Bleeding scan showed the patient has no active gastrointestinal bleed identified. The patient was monitored in the intensive care unit. He was stabilized. Now hemodynamically the patient is stable. His hemoglobin is also stable. So plan to transfer to the floor. At present the patient is seen in the intensive care unit. The patient has no complaint. He is having improving energy. Improving appetite. No nausea or vomiting. Denies any headache or dizziness. No chest pain, diaphoresis, palpitations. There is no abdominal pain. PAST MEDICAL HISTORY Significant for: 1. Hypertension. 2. Diabetes. 3. GI bleed in the past. 4. Cirrhosis of the liver. 5. Hepatitis C. 6. Diabetic neuropathy. 7. Hyperlipidemia. 8. Ex alcohol abuser. He stopped drinking 3 years ago. PAST SURGICAL HISTORY 1. Appendectomy. 2. Tonsillectomy. 3. Paracentesis in the past. 4. Endoscopies in the past. 5. Open reduction, internal fixation of the tibia. 6. Also a history of shoulder surgery. ALLERGIES THE PATIENT IS ALLERGIC TO POLYSPORIN AND NEOSPORIN. MEDICATIONS Reviewed. Please see the MAR. FAMILY HISTORY Noncontributory. SOCIAL HISTORY As per the patient he quit drinking 3 years ago. The patient does smoke, did not tell me how much exactly. Does not do any drugs. REVIEW OF SYSTEMS As described above in the history of present illness. Negative for 10 systems. PHYSICAL EXAMINATION GENERAL: The patient is alert and oriented, lying on bed without any apparent distress. VITAL SIGNS: The patient is afebrile, pulse is 78, respiratory rate is 14, blood pressure 138/60, pulse of 99% on room air. HEENT: Head is normocephalic. Eyes, negative conjunctival icterus. Mouth unremarkable. NECK: Supple. No increase in JVD. Negative thyromegaly. Central trachea. CHEST: Clear to auscultation. CARDIOVASCULAR: S1 and S2 audible. Unable to hear any S3 gallop. ABDOMEN: Soft, non-tender, no organomegaly. Positive bowel sounds. MUSCULOSKELETAL: Extremities no cyanosis or pedal edema appreciated. REWORK MACHINE OPERATOR: Grossly intact. SKIN: Warm and dry. PSYCHIATRIC: Appropriate mood and affect. LABORATORY DATA Investigations, BMP today is within normal limits. Random glucose 113. Total bilirubin 1.3, AST 66, albumin 2.4. Hemoglobin 8.9, hematocrit 27.3, WBC 2.9. Platelets count 98. PT 13.5, INR 1.2, . UA was within normal limits. His alcohol was less than 3. MRSA nasal screen negative. Blood peripheral culture no growth in 3 days. GI bleeding scan was done which showed no active gastrointestinal bleeding. ASSESSMENT 1. Acute GI bleed, hematochezia. 2. Anemia of acute blood loss, severe symptomatic type. 3. Acute kidney injury on admission, improved. 4. Hypertension history. 5. Diabetes. 6. Cirrhosis of the liver. 7. Hepatitis C. 8. Elevated AST. 9. Elevated ammonia level on admission. 10. Pancytopenia on admission. RECOMMENDATIONS 1. Medications reviewed. Continue current medications. 2. Continue lactulose and Rifaximin. The patient has cirrhosis and had increased ammonia level. 3. Continue thiamine and folic acid. 4. Monitor blood pressure and keep him on antihypertensive medications as ordered. 5. The patient is to be continued on empiric antibiotics. 6. Continue on PPI. 7. Sequential compression devices for deep venous thrombosis prophylaxis. 8. . 9. We will add . Discussed with the patient in detail. Further recommendations to follow as the patient progresses. Previous notes, labs and radiological data reviewed. Extensive time spent in consultation of this patient and doing discussion with the patient. Radha Colorado MD JP/KATY /3:09 PM /9:19 AM PT SEEN AND EXAMINED ABOVE CHART REVIEWED INCLUDING MEDS LABS AND RAD JEREMY AND NOTES DW PT DW NEGATIVE TURNER APPRENTICE ABOUT PLAN OF CARE DW RN GURPREETD
[2017-01-05] MEDS: PANTOPRAZOLE INJ 80 MG in SODIUM CHLORIDE 0.9% INJ 100 ML IV SCH ×2 (11:53→21:03)
--- NOTE | 2017-01-05 12:18 | HHI.PR ---
Subjective Remarks Patient is weak and ill looking Offering no complaint No pain No nausea vomiting No headache or dizziness No cough No known pain or chest pain Review of system for 12 point system otherwise unremarkable Objective Objective Results - Vital Signs Date Time Temp Pulse Resp B/P Pulse Ox O2 Delivery O2 Flow Rate FiO2 01/05/17 08:55 95 21 01/05/17 06:00 52 01/05/17 04:00 52 01/05/17 04:00 98.2 52 10 120/56 98 01/05/17 02:00 50 01/05/17 00:00 50 01/05/17 00:00 97.9 50 12 119/55 99 01/04/17 22:00 57 01/04/17 20:00 56 01/04/17 20:00 98.6 64 12 165/82 100 01/04/17 19:58 100 21 01/04/17 19:00 60 15 163/78 99 01/04/17 18:00 49 01/04/17 16:00 58 01/04/17 16:00 97.9 64 17 118/57 99 01/04/17 14:00 58 I/O 01/04/17 01/04/17 01/04/17 01/05/17 01/05/17 01/05/17 06:59 14:59 22:59 06:59 14:59 22:59 Intake Total 392 ml 1090 ml 2871 ml 791 ml Output Total 1150 ml 1960 ml 50 ml 1600 ml Balance -758 ml -870 ml 2821 ml -809 ml Intake Oral 60 ml 420 ml 2500 ml 440 ml IV Total 332 ml 670 ml 371 ml 351 ml Output Urine Total 1000 ml 1760 ml 1100 ml Stool Total 150 ml 200 ml 50 ml 500 ml # Voids 3 Result Diagram: 01/05/17 0341 01/05/17 0341 Other Results Laboratory Tests Test 01/04/17 01/04/17 01/05/17 01/05/17 12:30 19:42 01:16 03:41 Hemoglobin 8.9 10.1 9.8 9.3 Hematocrit 27.3 31.0 28.8 27.2 White Blood Count 2.7 Red Blood Count 3.14 Mean Corpuscular Volume 86.6 Mean Corpuscular Hemoglobin 29.6 Mean Corpuscular Hemoglobin 34.2 Concent Red Cell Distribution Width 16.0 Platelet Count 104 Mean Platelet Volume 9.7 Neutrophils (%) (Auto) 64.5 Lymphocytes (%) (Auto) 21.9 Monocytes (%) (Auto) 9.7 Eosinophils (%) (Auto) 2.9 Basophils (%) (Auto) 1.0 Neutrophils # (Auto) 1.7 Lymphocytes # (Auto) 0.6 Monocytes # (Auto) 0.3 Eosinophils # (Auto) 0.1 Basophils # (Auto) 0.0 CBC Comment DIFF FINAL Differential Comment Sodium Level 142 Potassium Level 3.8 Chloride Level 105 Carbon Dioxide Level 28.7 Anion Gap 8 Blood Urea Nitrogen 10 Creatinine 0.72 Estimat Glomerular Filtration 113 Rate Random Glucose 161 Calcium Level 8.5 Magnesium Level 1.7 Date/Time Procedure Status Source Growth 01/01/17 21:00 Aerobic Blood Culture - Preliminary Resulted Blood Peripheral NO GROWTH IN 4 DAYS 01/01/17 21:00 Anaerobic Blood Culture - Preliminary Resulted Blood Peripheral NO GROWTH IN 4 DAYS Physical Exam Physical Exam GENERAL: The patient is alert and oriented, lying on bed without any apparent distress. VITAL SIGNS: Reviewed HEENT: Head is normocephalic. Eyes, negative conjunctival icterus. Mouth unremarkable. NECK: Supple. No increase in JVD. Negative thyromegaly. Central trachea. CHEST: Clear to auscultation. CARDIOVASCULAR: S1 and S2 audible. Unable to hear any S3 gallop. ABDOMEN: Soft, non-tender, no organomegaly. Positive bowel sounds. MUSCULOSKELETAL: Extremities no cyanosis or pedal edema appreciated. COMPRESSED GASES TESTER: Grossly intact. SKIN: Warm and dry. PSYCHIATRIC: Appropriate mood and affect. flxi seal tube with darkish green stool A/P Assessment and Plan 1. Acute GI bleed, hematochezia. 2. Anemia of acute blood loss, severe symptomatic type. 3. Acute kidney injury on admission, improved. 4. Hypertension history. 5. Diabetes. 6. Cirrhosis of the liver. 7. Hepatitis C. 8. Elevated AST. 9. Elevated ammonia level on admission. 10. Pancytopenia on admission. RECOMMENDATIONS Patient has a dark color stool Labs reviewed Stable H&H Low platelet thrombocytopenia is stable and improving will monitor Patient is on Sandostatin drip On IV PPI For EGD/colonoscopy today Continue monitoring glucose with SSI, stable Acute kidney injury resolved Medications reviewed continue same Continue lactulose and Rifaximin. Monitor blood pressure and keep him on antihypertensive medications as ordered. continue on empiric antibiotics. Sequential compression devices for deep venous thrombosis prophylaxis. Labs for tomorrow. Further recommendations to follow as the patient progresses. Previous notes, labs reviewed. Discussed with RN Discussed with patient Condition guarded. Prognosis guarded Radha Colorado MD January 05, 2017 12:18
[2017-01-05] MEDS ORDERED: PROPOFOL 200 MG/20 ML AMP IV ONE (16:31)
--- NOTE | 2017-01-05 16:39 | GIPROC ---
[facility] [address] [facility]. [facility], [address] EGD PROCEDURE REPORT EXAM DATE: 01/05/2017 PATIENT NAME: Azael Arzola MR #: [id number] BIRTHDATE: 1960 ATTENDING: Jody Minor MD ORDER #: [id number] LEATHER PATCHER: Vel Isabel and Amrita Dias STATUS: inpatient INDICATIONS: The patient is a 56 yr old male here for an EGD due to anemia , gi bleeding PROCEDURE PERFORMED: EGD, diagnostic MEDICATIONS: None and Per Anesthesia. TOPICAL ANESTHETIC: none CONSENT: The patient understands the risks and benefits of the procedure and understands that these risks include, but are not limited to: sedation, allergic reaction, infection, perforation and/or bleeding. Alternative means of evaluation and treatment include, among others: physical exam, x-rays, and/or surgical intervention. The patient elects to proceed with this endoscopic procedure. medical equipment was checked for proper function. Hand hygiene and appropriate measures for infection prevention was taken. After the risks, benefits and alternatives of the procedure were thoroughly explained, Informed consent was verified, confirmed and timeout was successfully executed by the treatment team. The patient was anesthetized with topical anesthesia and the EC-3490Li (Pedi C) and [id number] endoscope was introduced through the mouth and advanced to the bulb of duodenum. Retroflexed views revealed a hiatal hernia The gastroscope was then slowly withdrawn and removed. Large amount of food in stomach, possible gastroparesis esophagel varices. ADVERSE EVENTS: There were no complications. IMPRESSIONS: 1. Large amount of food in stomach, possible gastroparesis esophagel varices 2. Retroflexed views revealed a hiatal hernia RECOMMENDATIONS: Clear liquid reglan iv colonoscopy cancel for today, we will need to rechedule in am , intubation and possible esophageal banding PATIENT CONDITION: stable DISPOSITION: Inpatient REPEAT EXAM: EGD Jody Minor MD eSigned: Jody Minor MD 01/05/2017 4:39 PM cc:
[2017-01-05] MEDS: cefTRIAXone INJ 1,000 MG in SODIUM CHLORIDE 0.9% INJ 100 ML IV SCH (17:01)
[2017-01-05] MEDS: MULTIVITAMIN TAB PO SCH (17:01)
[2017-01-05] MEDS: FOLIC ACID 1 MG TAB PO SCH (17:01)
[2017-01-05] MEDS: FUROSEMIDE 20 MG TAB PO SCH (17:01)
[2017-01-05] MEDS: PREGABALIN 75 MG CAP PO SCH (17:02)
[2017-01-05] MEDS: TAMSULOSIN HCL 0.4 MG CAP PO SCH (17:02)
[2017-01-05] MEDS: METOCLOPRAMIDE HCL 10 MG/2 ML VIAL IM SCH (17:17)
[2017-01-05] MEDS: OCTREOTIDE INJ 500 MCG in SODIUM CHLORID 0.9% 500 ML INJ 499.5 ML IV SCH (19:15)
[2017-01-06] VITALS (11 sets, daily range): BP systolic 133–170; BP diastolic 61–94; PULSE 47–68; RESP 10–21; TEMP 97.7–98.7; O2SAT 97–100
[2017-01-06] MEDS: OCTREOTIDE INJ 500 MCG in SODIUM CHLORID 0.9% 500 ML INJ 499.5 ML IV SCH (00:50)
[2017-01-06] MEDS: METOCLOPRAMIDE HCL 10 MG/2 ML VIAL IM SCH ×3 (01:00→17:53)
[2017-01-06] MEDS: CHLORHEXIDINE GLUCONATE 2 % 1 PACK (2 CLOTHS) TOP SCH (04:00)
[2017-01-06] MEDS: INSULIN NovoLIN REGULAR SUPPLEMENTAL SCALE SQ SCH ×6 (04:00→20:56)
[2017-01-06 05:36] LABS: HEMATOCRIT 24.8 % (39.0-51.0); MEAN CELL VOLUME 87.6 FL (80.0-100.0); MEAN CORPUSCULAR HEMOGLOBIN 29.7 PG (27.0-34.0); MEAN CORPUSCULAR HGB CONC 33.9 % (32.0-36.0); PLATELET COUNT 99 TH/MM3 (150-450); RED BLOOD COUNT 2.83 MIL/MM3 (4.50-5.90); RED CELL DISTRIBUTION WIDTH 15.8 % (11.6-17.2); WHITE BLOOD COUNT 3.1 TH/MM3 (4.0-11.0)
[2017-01-06 05:49] LABS: REVIEW FLAG FINAL
[2017-01-06] MEDS: PANTOPRAZOLE INJ 80 MG in SODIUM CHLORIDE 0.9% INJ 100 ML IV SCH ×3 (05:51→23:13)
[2017-01-06 06:05] LABS: BICARBONATE 28.3 MEQ/L (21.0-32.0); INDIRECT BILIRUBIN 0.5 MG/DL (0.0-0.8); POTASSIUM 3.8 MEQ/L (3.5-5.1); TOTAL BILIRUBIN ADULT 1.2 MG/DL (0.2-1.0)
[2017-01-06] MEDS: PROPRANOLOL HCL 10 MG TAB PO SCH ×2 (09:00→20:50)
[2017-01-06] MEDS: RIFAXIMIN 550 MG TAB PO SCH ×2 (09:00→20:52)
--- NOTE | 2017-01-06 09:37 | HHI.PR ---
Subjective Remarks Awake, conversational asking simple questions Skin is pale, mild icteric Plan for EGD today in the OR No acute shortness of breath patient currently on room air Afebrile Rectal Rosado still in place (Claudia Michael) Objective Objective Results - Vital Signs Date Time Temp Pulse Resp B/P Pulse Ox O2 Delivery O2 Flow Rate FiO2 01/06/17 08:19 97 21 01/06/17 06:00 54 01/06/17 04:00 98.1 68 21 170/77 97 01/06/17 04:00 67 01/06/17 02:00 55 01/06/17 00:00 61 01/06/17 00:00 98.0 60 12 133/61 97 01/05/17 22:00 60 01/05/17 20:54 97 01/05/17 20:00 98.1 82 24 179/79 97 01/05/17 20:00 61 01/05/17 19:00 100 Room Air 01/05/17 17:21 100 Room Air 01/05/17 17:20 61 01/05/17 16:00 98.2 62 14 124/69 100 01/05/17 12:00 98.6 67 24 126/69 97 I/O 01/05/17 01/05/17 01/05/17 01/06/17 01/06/17 01/06/17 07:00 15:00 23:00 07:00 15:00 23:00 Intake Total 791 ml 882 ml 328 ml Output Total 1600 ml 750 ml 600 ml Balance -809 ml 132 ml -272 ml Intake Oral 440 ml 60 ml IV Total 351 ml 822 ml 328 ml Output Urine Total 1100 ml 650 ml 600 ml Stool Total 500 ml 100 ml 0 ml # Voids 2 # Bowel Movements 1 (Claudia Michael) Result Diagram: 01/06/1751201/06/17512 ROS General: Fatigue (waxes and wanes, but still generalized), Weakness, Other (12 point ROS done, positives noted otherwise systems unremarkable) Cardiac: Other (bradycardia, asymptomatic) GI: Abdominal Pain (no complaints now, abdomen soft), Diarrhea (rectal Rosado continues) Neuro/MS: Confusion (mild, no acute anxiety noted now), Other (simple confusion , pleasant) (Claudia Michael) Physical Exam Physical Exam PHYSICAL EXAMINATION GENERAL: This is a chronically ill male who appears to be in no acute distress for now He is alert and awake, able to communicate with simple questions HEAD: Normocephalic without any lesion or mass noted. Facial features appear symmetric. OROPHARYNGEAL: Oropharynx without erythema or edema. NECK: Supple. Trachea midline without deviation. CARDIAC: Regular rhythm, bradycardia borderline rate, S1 and S2 are heard LUNGS: Mild diminished to auscultation bilaterally. No wheeze, low volumes ABDOMEN: Soft, nontender, Bowel sounds are active Rectal Rosado continues to drain dark stool. EXTREMITIES: No edema. Pulses equal bilateral NEUROLOGICAL: Patient mood and affect appropriate, speech slow but understandable. No active anxiety for now SKIN:Warm dry, pale, mild icteric Objective Remarks Wine to not need oxygen (Claudia Michael) A/P Assessment and Plan 1. Acute GI bleed, hematochezia. 2. Anemia of acute blood loss, severe symptomatic type. 3. Acute kidney injury on admission, improved. 4. Hypertension history. 5. Diabetes. 6. Cirrhosis of the liver. 7. Hepatitis C. 8. Elevated AST. 9. Elevated ammonia level on admission. 10. Pancytopenia on admission. RECOMMENDATIONS Vital signs reviewed, afebrile, other BPs normal trends, pulse noted to be mildly bradycardic at times but patient is asymptomatic. Labs reviewed Stable H&H, 8.4 today which is mildly lower, continue to monitor Low platelet thrombocytopenia, monitor Hypocalcemia unchanged monitor Patient is on Sandostatin drip, appreciate GI input for his plan of care On IV PPI For EGD/colonoscopy today, in the OR. Patient's stomach was full of food yesterday even though he had not eaten in days. Explained process to patient Possible gastroparesis Patient still has rectal Rosado, draining dark stool, diarrhea loose Continue IV antibiotics Elevated bilirubin continues Continue monitoring glucose with SSI, mild elevation, continue to monitor Acute kidney injury resolved Discharge planning after testing done, patient stabilizes and plan of care is completed. Will need outpatient assistance and possible SNF placement and rehabilitation within the next few days. Patient is pale, slow speaking Condition guarded Monitor labs for a.m. Discussed with RN Discussed with patient Discussed with Dr. Colorado, seen on his behalf (Claudia Michael) Assessment and Plan PT SEEN AND EXAMINED ABOVE LABS REVIWED PREVIOUS NOTES REVIWED TARA SOLITARIOP ABOUT PLAN OF CARE DW AND EXPLAINED TO PT LABS FOR TOMORROW (Radha Colorado MD) Claudia Michael January 06, 2017 09:37 Radha Colorado MD January 06, 2017 14:24
[2017-01-06] MEDS: THIAMINE INJ 100 MG in SODIUM CHLORIDE 0.9% INJ 100 ML IV SCH (09:40)
[2017-01-06] MEDS ORDERED: ePHEDrine/NS 25 MG/5 ML SYR IV ONE (12:00)
[2017-01-06] MEDS: busPIRone HCL 10 MG TAB PO SCH ×3 (13:00→18:00)
[2017-01-06] MEDS: BACLOFEN 20 MG TAB PO SCH ×3 (13:00→18:00)
[2017-01-06] MEDS: LACTULOSE SYRUP 20 GM/30 ML CUP PO SCH ×3 (13:00→18:00)
[2017-01-06] MEDS ORDERED: PROPOFOL 200 MG/20 ML AMP IV ONE (15:51)
--- NOTE | 2017-01-06 15:56 | GIPROC ---
[facility] [address] [facility]. [facility], [address] EGD PROCEDURE REPORT EXAM DATE: 01/06/2017 PATIENT NAME: Azael Arzola MR #: [id number] BIRTHDATE: 1960 ATTENDING: Jody Minor MD ORDER #: [id number] CIRCULATION SALES REPRESENTATIVE: Beth Lopez and Sana Hill STATUS: inpatient INDICATIONS: The patient is a 56 yr old male here for an EGD due to cirrhosis, gi bleeding, anemia PROCEDURE PERFORMED: EGD w/ band ligation of varices MEDICATIONS: Per Anesthesia and None. TOPICAL ANESTHETIC: none CONSENT: The patient understands the risks and benefits of the procedure and understands that these risks include, but are not limited to: sedation, allergic reaction, infection, perforation and/or bleeding. Alternative means of evaluation and treatment include, among others: physical exam, x-rays, and/or surgical intervention. The patient elects to proceed with this endoscopic procedure. medical equipment was checked for proper function. Hand hygiene and appropriate measures for infection prevention was taken. After the risks, benefits and alternatives of the procedure were thoroughly explained, Informed consent was verified, confirmed and timeout was successfully executed by the treatment team. The patient was anesthetized with topical anesthesia and the EC-3490Li (Pedi C) endoscope was introduced through the mouth and advanced to the second portion of the duodenum. Retroflexed views revealed a hiatal hernia The gastroscope was then slowly withdrawn and removed. Portal gastropathy esophagel varices -grade 2-s/p banding 3. ADVERSE EVENTS: There were no complications. IMPRESSIONS: 1. Portal gastropathy esophagel varices -grade 2-s/p banding 3 2. Retroflexed views revealed a hiatal hernia RECOMMENDATIONS: 1. Await biopsy results. Biopsy results will not be ready for 7-10 days. If you don't hear from us in two weeks, call our office for biopsy results. 2. Anti-reflux regimen 3. Continue PPI 4. Avoid NSAIDS PATIENT CONDITION: stable DISPOSITION: Inpatient REPEAT EXAM: Return 6 weeks EGD Jody Minor MD eSigned: Jody Minor MD 01/06/2017 3:56 PM cc:
--- NOTE | 2017-01-06 15:59 | GIPROC ---
[facility] [address] [facility]. [facility], [address] COLONOSCOPY PROCEDURE REPORT EXAM DATE: 01/06/2017 PATIENT NAME: Azael Arzola MR #: [id number] BIRTHDATE: 1960 ENDOSCOPIST: Jody Minor MD ORDER #: [id number] COAL WEIGHER: Beth Lopez and Sana Hill STATUS: inpatient INDICATIONS: The patient is a 56 yr old male here for a colonoscopy due to anemia, gi bleeding PROCEDURE PERFORMED: Colonoscopy, diagnostic MEDICATIONS: Per Anesthesia and None. PREP QUALITY: 20 % obscured PREP TYPE:GoLytely ESTIMATED BLOOD LOSS: None CONSENT: The patient understands the risks and benefits of the procedure and understands that these risks include, but are not limited to: sedation, allergic reaction, infection, perforation and/or bleeding. Alternative means of evaluation and treatment include, among others: physical exam, x-rays, and/or surgical intervention. The patient elects to proceed with this endoscopic procedure. medical equipment was checked for proper function. Hand hygiene and appropriate measures for infection prevention was taken. After the risks, benefits and alternatives of the procedure were thoroughly explained, Informed consent was verified, confirmed and timeout was successfully executed by the treatment team. A digital exam revealed internal hemorrhoids The Pentax EC-3490Li endoscope was introduced through the anus and advanced to the cecum, which was identified by both the appendix and ileocecal valve. The instrument was then slowly withdrawn as the colon was fully examined. COLON FINDINGS: Semisolid stool. Retroflexed views revealed internal hemorrhoids and Retroflexed views revealed small internal hemorrhoids The scope was then completely withdrawn from the patient and the procedure terminated. PROCEDURE WITHDRAWAL TIME:6minutes ADVERSE EVENTS: There were no complications. IMPRESSIONS: 1. Semisolid stool 2. Retroflexed views revealed internal hemorrhoids 3. Retroflexed views revealed small internal hemorrhoids 4. Revealed internal hemorrhoids RECOMMENDATIONS: 1. Benefiber 2 tsp daily 2. Probiotics from any [facility] or health food store 3. Yearly rectal exams RECALL: Return 1 year Colonoscopy Jody Minor MD eSigned: Jody Minor MD 01/06/2017 3:59 PM cc:
[2017-01-06] MEDS ORDERED: DO NOT ADM ANY ANTICOAGULANT DRUGS PRN (16:30)
[2017-01-06] MEDS: cefTRIAXone INJ 1,000 MG in SODIUM CHLORIDE 0.9% INJ 100 ML IV SCH (16:58)
[2017-01-06] MEDS: SPIRONOLACTONE 25 MG TAB PO SCH ×2 (16:59→18:00)
[2017-01-06] MEDS: FUROSEMIDE 20 MG TAB PO SCH (17:25)
[2017-01-06] MEDS: FOLIC ACID 1 MG TAB PO SCH (17:25)
[2017-01-06] MEDS: PREGABALIN 75 MG CAP PO SCH (17:25)
[2017-01-06] MEDS: MULTIVITAMIN TAB PO SCH (17:25)
[2017-01-06] MEDS: TAMSULOSIN HCL 0.4 MG CAP PO SCH (17:25)
[2017-01-07] VITALS (13 sets, daily range): BP systolic 113–186; BP diastolic 58–98; PULSE 47–82; RESP 12–20; TEMP 97.4–98.3; O2SAT 96–100
[2017-01-07] MEDS: METOCLOPRAMIDE HCL 10 MG/2 ML VIAL IM SCH ×4 (01:00→23:57)
[2017-01-07] MEDS: CHLORHEXIDINE GLUCONATE 2 % 1 PACK (2 CLOTHS) TOP SCH (03:26)
[2017-01-07] MEDS: INSULIN NovoLIN REGULAR SUPPLEMENTAL SCALE SQ SCH ×7 (03:32→23:58)
[2017-01-07 04:50] LABS: BASOPHIL % 0.7 % (0.0-2.0); EOSINOPHIL # 0.1 TH/MM3 (0-0.4); EOSINOPHIL % 3.8 % (0.0-4.0); HEMATOCRIT 27.9 % (39.0-51.0); LYMPHOCYTE # 0.6 TH/MM3 (1.0-4.8); MEAN CELL VOLUME 88.2 FL (80.0-100.0); MEAN CORPUSCULAR HEMOGLOBIN 29.1 PG (27.0-34.0); MONO % 6.9 % (0.0-8.0); NEUT % 67.6 % (16.0-70.0); PLATELET COUNT 91 TH/MM3 (150-450); RED BLOOD COUNT 3.16 MIL/MM3 (4.50-5.90); RED CELL DISTRIBUTION WIDTH 16.5 % (11.6-17.2); WHITE BLOOD COUNT 2.9 TH/MM3 (4.0-11.0)
[2017-01-07 04:57] LABS: HEMO FLAGS AUTO DIFF
[2017-01-07 05:04] LABS: BICARBONATE 25.4 MEQ/L (21.0-32.0); POTASSIUM 3.6 MEQ/L (3.5-5.1)
[2017-01-07 08:15] LABS: PLATELET ESTIMATE SMEAR LOW (NORMAL); PLATELET MORPHOLOGY NORMAL (NORMAL); SCAN/DIFF AUTO DIFF CONFIRMED
[2017-01-07] MEDS: LACTULOSE SYRUP 20 GM/30 ML CUP PO SCH ×3 (09:00→18:05)
[2017-01-07] MEDS: PANTOPRAZOLE INJ 80 MG in SODIUM CHLORIDE 0.9% INJ 100 ML IV SCH (09:49)
[2017-01-07] MEDS: THIAMINE INJ 100 MG in SODIUM CHLORIDE 0.9% INJ 100 ML IV SCH (09:49)
[2017-01-07] MEDS: MULTIVITAMIN TAB PO SCH (09:50)
[2017-01-07] MEDS: BACLOFEN 20 MG TAB PO SCH ×3 (09:50→18:05)
[2017-01-07] MEDS: busPIRone HCL 10 MG TAB PO SCH ×3 (09:50→18:05)
[2017-01-07] MEDS: PROPRANOLOL HCL 10 MG TAB PO SCH ×2 (09:50→21:32)
[2017-01-07] MEDS: TAMSULOSIN HCL 0.4 MG CAP PO SCH (09:50)
[2017-01-07] MEDS: FUROSEMIDE 20 MG TAB PO SCH (09:50)
[2017-01-07] MEDS: FOLIC ACID 1 MG TAB PO SCH (09:50)
[2017-01-07] MEDS: RIFAXIMIN 550 MG TAB PO SCH ×2 (09:50→21:32)
[2017-01-07] MEDS: SPIRONOLACTONE 25 MG TAB PO SCH ×2 (10:01→18:05)
[2017-01-07] MEDS: PREGABALIN 75 MG CAP PO SCH (10:01)
--- NOTE | 2017-01-07 12:31 | HHI.PR ---
Subjective Subjective Remarks no hematochezia no hematemesis no cp no sob wants to get up and walk around feet pain, has neuropathy no fever awake, oriented x 2, disoriented at times Review of Systems Constitutional Constitutional Remarks 12 point ROS completed, unreliable Vitals/Results Intake & Output 01/06/17 01/06/17 01/07/17 15:00 23:00 07:00 Intake Total 1178 ml 210 ml Output Total 600 ml 1100 ml Balance 578 ml -890 ml Intake Oral 100 ml 60 ml IV Total 478 ml 150 ml Other 600 ml Output Urine Total 600 ml 1100 ml # Bowel Movements 1 1 Vital Signs Vital Signs Date Time Temp Pulse Resp B/P Pulse Ox O2 Delivery O2 Flow Rate FiO2 01/07/17 08:08 96 21 01/07/17 06:00 65 01/07/17 04:00 52 01/07/17 04:00 98.3 52 12 137/63 99 01/07/17 02:00 47 01/07/17 00:00 50 01/07/17 00:00 98.3 50 19 161/98 98 01/06/17 22:00 47 01/06/17 20:00 54 01/06/17 20:00 97.7 54 10 147/78 97 01/06/17 19:00 99 Room Air 01/06/17 18:23 51 01/06/17 18:00 98.6 50 16 161/94 100 01/06/17 16:23 98.2 63 16 149/78 100 01/06/17 16:15 74 16 152/82 100 01/06/17 16:09 98.1 65 15 154/74 99 01/06/17 12:39 100 Room Air CBC/BMP: 01/07/17 0408 01/07/17 0408 Lab Results Laboratory Tests Test 01/07/17 04:08 White Blood Count 2.9 TH/MM3 Red Blood Count 3.16 MIL/MM3 Hemoglobin 9.2 GM/DL Hematocrit 27.9 % Mean Corpuscular Volume 88.2 FL Mean Corpuscular Hemoglobin 29.1 PG Mean Corpuscular Hemoglobin 33.0 % Concent Red Cell Distribution Width 16.5 % Platelet Count 91 TH/MM3 Mean Platelet Volume 9.5 FL Neutrophils (%) (Auto) 67.6 % Lymphocytes (%) (Auto) 21.0 % Monocytes (%) (Auto) 6.9 % Eosinophils (%) (Auto) 3.8 % Basophils (%) (Auto) 0.7 % Neutrophils # (Auto) 2.0 TH/MM3 Lymphocytes # (Auto) 0.6 TH/MM3 Monocytes # (Auto) 0.2 TH/MM3 Eosinophils # (Auto) 0.1 TH/MM3 Basophils # (Auto) 0.0 TH/MM3 CBC Comment AUTO DIFF Differential Comment AUTO DIFF CONFIRMED Platelet Estimate LOW Platelet Morphology Comment NORMAL Sodium Level 140 MEQ/L Potassium Level 3.6 MEQ/L Chloride Level 106 MEQ/L Carbon Dioxide Level 25.4 MEQ/L Anion Gap 9 MEQ/L Blood Urea Nitrogen 11 MG/DL Creatinine 0.86 MG/DL Estimat Glomerular Filtration 92 ML/MIN Rate Random Glucose 119 MG/DL Calcium Level 8.4 MG/DL Physical Exam General General Appearance: Well Developed, Well Nourished, Comfortable, Pale Eyes Eye Exam: Pupils Equal, Pupils Reactive Ears & Nose Ears & Nose Exam: Nasal Mucosa [place] Throat Throat Exam: Oral Mucosa [place] & Moist Neck Neck Exam: Neck Supple, Trachea Midline Pulmonary Resp Exam: Clear Bilaterally, No Distress Cardiology CV Exam: Regular, Good Perfusion Gastrointestinal/Abdomen GI Exam: Soft, Non-Tender, Bowel Sounds Present Musculoskeletal MS Exam: Joints Intact Integumentary Skin Exam: Warm, Dry Extremeties Extremities Exam: No Edema, Pedal Pulses Palpable Neurologic Neuro Exam: Alert, Awake, Speech Clear, Moving All Extremities, No Focal Deficits Psychiatric Psych Exam: Appropriate Responses VTE Prophylaxis VTE Prophylaxis Device: SCDs PUD Prophylasis PUD Prophylaxis: Protonix Assessment/Plan Assessment/Plan 1. Acute GI bleed, hematochezia. 2. Anemia of acute blood loss, severe symptomatic type. 3. Acute kidney injury on admission, improved. 4. Hypertension history. 5. Diabetes. 6. Cirrhosis of the liver. 7. Hepatitis C. 8. Elevated AST. 9. Elevated ammonia level on admission. 10. Pancytopenia on admission. RECOMMENDATIONS bleeding scan negative S/P colonoscopy 01/02, colon full of blood, no active bleeding. S/P EGD, food, ? gastroparesis S/P colonoscopy 01/06, semiformed stool, no active bleeding. S/P EGD, varices and banding x 3, portal gastropathy s/p PRBC transfusion, HH stable Thrombocytopenia, plat. stable 91 off Sandostatin continue PPI continue Reglan Continue abx blood cultures negative renal function improving continue IVF accuchecks with ISS PT for eval and tx OOB with assist Labs in am SCDs for DVT prophylaxis PPI for GI prophylaxis Ok to transfer out of ICU CM for dc planning D/W Dr. Colorado D/W pt This patient was seen by myself and Dr. Colorado, this note is written on his behalf. Joanna Herrera January 07, 2017 12:31
[2017-01-07] MEDS: cefTRIAXone INJ 1,000 MG in SODIUM CHLORIDE 0.9% INJ 100 ML IV SCH (16:44)
--- NOTE | 2017-01-07 17:20 | HHI.GIFU ---
Subjective Remarks Resting in bed. No n/v. No bleeding. Denies abdominal pain. Being transferred to floor today. (Yumiko Vale) Objective Vitals I&O Vital Signs Date Time Temp Pulse Resp B/P Pulse Ox O2 Delivery O2 Flow Rate FiO2 01/07/17 16:00 62 01/07/17 16:00 98.0 62 12 149/72 100 01/07/17 14:00 60 01/07/17 12:00 98.3 62 12 113/58 100 01/07/17 12:00 62 01/07/17 10:00 66 01/07/17 08:08 96 21 01/07/17 08:00 54 01/07/17 08:00 98.1 54 16 182/82 97 01/07/17 06:00 65 01/07/17 04:00 52 01/07/17 04:00 98.3 52 12 137/63 99 01/07/17 02:00 47 01/07/17 00:00 50 01/07/17 00:00 98.3 50 19 161/98 98 01/06/17 22:00 47 01/06/17 20:00 54 01/06/17 20:00 97.7 54 10 147/78 97 01/06/17 19:00 99 Room Air 01/06/17 18:23 51 01/06/17 18:00 98.6 50 16 161/94 100 I/O 01/06/17 01/06/17 01/06/17 01/07/17 01/07/17 01/07/17 06:59 14:59 22:59 06:59 14:59 22:59 Intake Total 328 ml 1178 ml 210 ml 1234 ml Output Total 600 ml 600 ml 1100 ml 1400 ml Balance -272 ml 578 ml -890 ml -166 ml Intake Oral 100 ml 60 ml 970 ml IV Total 328 ml 478 ml 150 ml 264 ml Other 600 ml Output Urine Total 600 ml 600 ml 1100 ml 1400 ml Stool Total 0 ml # Bowel Movements 1 1 Laboratory Laboratory Tests Test 01/07/17 04:08 White Blood Count 2.9 Red Blood Count 3.16 Hemoglobin 9.2 Hematocrit 27.9 Mean Corpuscular Volume 88.2 Mean Corpuscular Hemoglobin 29.1 Mean Corpuscular Hemoglobin 33.0 Concent Red Cell Distribution Width 16.5 Platelet Count 91 Mean Platelet Volume 9.5 Neutrophils (%) (Auto) 67.6 Lymphocytes (%) (Auto) 21.0 Monocytes (%) (Auto) 6.9 Eosinophils (%) (Auto) 3.8 Basophils (%) (Auto) 0.7 Neutrophils # (Auto) 2.0 Lymphocytes # (Auto) 0.6 Monocytes # (Auto) 0.2 Eosinophils # (Auto) 0.1 Basophils # (Auto) 0.0 CBC Comment AUTO DIFF Differential Comment AUTO DIFF CONFIRMED Platelet Estimate LOW Platelet Morphology Comment NORMAL Sodium Level 140 Potassium Level 3.6 Chloride Level 106 Carbon Dioxide Level 25.4 Anion Gap 9 Blood Urea Nitrogen 11 Creatinine 0.86 Estimat Glomerular Filtration 92 Rate Random Glucose 119 Calcium Level 8.4 Imaging Last Impressions GI Bleed Scan Nuclear Medicine 01/02/17 0000 Signed Impressions: Service Date/Time: Wednesday, January 02, 2017 17:07 - CONCLUSION: 1. No active gastrointestinal bleed identified. Alfonso Hernandez MD Physical Exam HEENT: Normocephalic; atraumatic CHEST: CTA CARDIAC: RRR ABDOMEN: Soft, mildly bloated, nontender; no hepatosplenomegaly; bowel sounds are present in all four quadrants. EXTREMITIES: No clubbing, cyanosis, or edema. SKIN: Normal; no rash; no jaundice. ADMIN PROG COORD: No focal deficits; alert and oriented times three. (Yumiko Vale) Assessment and Plan Plan ASSESSMENT - GIB, hematochezia. Hx cirrhosis, portal gastropathy. S/P EGD (12-02-16)----- > Portal hypertensive gastropathy, old blood. S/P Colonoscopy (01/01/17)-----> colon full of blood, no active bleeding seen, hemorrhoids. GI Bleeding Scan (01/02/17)---> 1. No active gastrointestinal bleed identified. S/P EGD (01/05/17)----> 1. Large amount of food in stomach, possible gastroparesis esophageal varices. S/P EGD/Colonoscopy (01/06/17)---> 1. Portal gastropathy esophageal varices -grade 2-s/p banding 3 2. Retroflexed views revealed a hiatal hernia, 1. Semisolid stool 2. Retroflexed views revealed internal hemorrhoids 3. Retroflexed views revealed small internal hemorrhoids 4. Revealed internal hemorrhoids. S/P 5 units PRBC. HH .10/26.. Protonix gtt. Propranolol - Anemia secondary to acute blood loss. S/P 5 units PRBC. H/H .10/26.. - Cirrhosis, secondary to HCV, ETOH. Hep c tx naive. Had paracentesis 12/18 with 5000cc removed. diuretics. - DM, Neutropenia, per primary PLAN - 2 gram sodium diet, diabetic diet - D/C protonix gtt - Protonix 40mg po BID - Cont. Lasix, Spironolactone - Cont. Propranolol- Monitor labs - Transfuse as necessary - Supportive care - Further recommendations to follow based on results of above - Pt seen and examined by Dr. Minor and myself and this note is written on his behalf (Yumiko Vale) Yumiko Vale January 07, 2017 17:20 Jody Minor MD January 16, 2017 09:30
[2017-01-07] MEDS: PANTOPRAZOLE SOD 40 MG DELAYED RELEASE TAB PO SCH (21:32)
[2017-01-07] MEDS: hydrALAZINE HCL 20 MG/ML VIAL IV PUSH PRN (23:57)
[2017-01-08] VITALS (8 sets, daily range): BP systolic 123–186; BP diastolic 61–84; PULSE 58–82; RESP 20; TEMP 97.5–98.2; O2SAT 96–100
[2017-01-08] MEDS: CHLORHEXIDINE GLUCONATE 2 % 1 PACK (2 CLOTHS) TOP SCH (04:00)
[2017-01-08] MEDS: INSULIN NovoLIN REGULAR SUPPLEMENTAL SCALE SQ SCH ×5 (04:00→20:34)
[2017-01-08] MEDS: FOLIC ACID 1 MG TAB PO SCH (09:16)
[2017-01-08] MEDS: PREGABALIN 75 MG CAP PO SCH ×2 (09:16→20:29)
[2017-01-08] MEDS: PANTOPRAZOLE SOD 40 MG DELAYED RELEASE TAB PO SCH ×2 (09:16→20:29)
[2017-01-08] MEDS: TAMSULOSIN HCL 0.4 MG CAP PO SCH (09:16)
[2017-01-08] MEDS: METOCLOPRAMIDE HCL 10 MG/2 ML VIAL IM SCH ×2 (09:16→16:41)
[2017-01-08] MEDS: MULTIVITAMIN TAB PO SCH (09:16)
[2017-01-08] MEDS: SPIRONOLACTONE 25 MG TAB PO SCH ×2 (09:16→16:40)
[2017-01-08] MEDS: FUROSEMIDE 20 MG TAB PO SCH (09:16)
[2017-01-08] MEDS: RIFAXIMIN 550 MG TAB PO SCH ×2 (09:16→20:29)
[2017-01-08] MEDS: BACLOFEN 20 MG TAB PO SCH ×3 (09:16→16:41)
[2017-01-08] MEDS: busPIRone HCL 10 MG TAB PO SCH ×3 (09:16→16:40)
[2017-01-08] MEDS: PROPRANOLOL HCL 10 MG TAB PO SCH ×2 (09:16→20:29)
[2017-01-08] MEDS: LACTULOSE SYRUP 20 GM/30 ML CUP PO SCH ×3 (09:17→16:41)
[2017-01-08] MEDS: THIAMINE INJ 100 MG in SODIUM CHLORIDE 0.9% INJ 100 ML IV SCH (09:20)
[2017-01-08 09:33] LABS: HEMATOCRIT 30.3 % (39.0-51.0); MEAN CELL VOLUME 88.9 FL (80.0-100.0); MEAN CORPUSCULAR HEMOGLOBIN 28.6 PG (27.0-34.0); MEAN CORPUSCULAR HGB CONC 32.2 % (32.0-36.0); PLATELET COUNT 113 TH/MM3 (150-450); RED BLOOD COUNT 3.41 MIL/MM3 (4.50-5.90); RED CELL DISTRIBUTION WIDTH 16.8 % (11.6-17.2); REVIEW FLAG FINAL; WHITE BLOOD COUNT 3.6 TH/MM3 (4.0-11.0)
[2017-01-08 12:19] LABS: BICARBONATE 24.6 MEQ/L (21.0-32.0); POTASSIUM 3.4 MEQ/L (3.5-5.1)
--- NOTE | 2017-01-08 13:20 | HHI.FF ---
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 My clinical findings support the need for the requested home health care services because: Deconditioned w/ increased weakness Need for psychosocial assistance I certify that my clinical findings support that this patient is homebound because: Hx COPD- exertion dyspnea/weakness Unsteady gait/balance Need for psychosocial assistance Joanna Herrera [facility] January 08, 2017 13:20
--- NOTE | 2017-01-08 13:24 | HHI.PR ---
Subjective Subjective Remarks no hematochezia no hematemesis had lg BM, no blood eating well no cp no sob has been out of bed with PT weak but improving father and stepmother at bsd Review of Systems Constitutional Constitutional Remarks 12 point ROS completed, unreliable Vitals/Results Intake & Output 01/07/17 01/07/17 01/08/17 15:00 23:00 07:00 Intake Total 1234 ml 480 ml 340 ml Output Total 1400 ml 200 ml 500 ml Balance -166 ml 280 ml -160 ml Intake Oral 970 ml 480 ml 340 ml IV Total 264 ml Output Urine Total 1400 ml 200 ml 500 ml # Voids 2 # Bowel Movements 2 2 Vital Signs Vital Signs Date Time Temp Pulse Resp B/P Pulse Ox O2 Delivery O2 Flow Rate FiO2 01/08/17 08:50 98 21 01/08/17 08:11 65 01/08/17 08:00 97.6 63 20 155/73 97 01/08/17 04:00 97.8 65 20 123/61 96 01/08/17 00:00 97.6 61 20 162/79 97 01/07/17 22:00 58 01/07/17 20:00 97.4 73 20 143/76 100 01/07/17 17:40 97.9 61 20 186/88 100 01/07/17 16:00 62 01/07/17 16:00 98.0 62 12 149/72 100 01/07/17 14:00 60 CBC/BMP: 01/08/17 0848 01/08/17 1114 Lab Results Laboratory Tests Test 01/08/17 01/08/17 08:48 11:14 White Blood Count 3.6 TH/MM3 Red Blood Count 3.41 MIL/MM3 Hemoglobin 9.8 GM/DL Hematocrit 30.3 % Mean Corpuscular Volume 88.9 FL Mean Corpuscular Hemoglobin 28.6 PG Mean Corpuscular Hemoglobin 32.2 % Concent Red Cell Distribution Width 16.8 % Platelet Count 113 TH/MM3 Mean Platelet Volume 9.6 FL Sodium Level 139 MEQ/L Potassium Level 3.4 MEQ/L Chloride Level 107 MEQ/L Carbon Dioxide Level 24.6 MEQ/L Anion Gap 7 MEQ/L Blood Urea Nitrogen 14 MG/DL Creatinine 0.87 MG/DL Estimat Glomerular Filtration 90 ML/MIN Rate Random Glucose 216 MG/DL Calcium Level 8.0 MG/DL Physical Exam General General Appearance: Well Developed, Well Nourished, Comfortable, Pale Eyes Eye Exam: Pupils Equal, Pupils Reactive Ears & Nose Ears & Nose Exam: Nasal Mucosa Olivia Lopez De Gutierrez Throat Throat Exam: Oral Mucosa Olivia Lopez De Gutierrez & Moist Neck Neck Exam: Neck Supple, Trachea Midline Pulmonary Resp Exam: Clear Bilaterally, No Distress Cardiology CV Exam: Regular, Good Perfusion Gastrointestinal/Abdomen GI Exam: Soft, Non-Tender, Bowel Sounds Present Musculoskeletal MS Exam: Joints Intact Integumentary Skin Exam: Warm, Dry Extremeties Extremities Exam: No Edema, Pedal Pulses Palpable Neurologic Neuro Exam: Alert, Awake, Speech Clear, Moving All Extremities, No Focal Deficits Psychiatric Psych Exam: Appropriate Responses VTE Prophylaxis VTE Prophylaxis Device: SCDs PUD Prophylasis PUD Prophylaxis: Protonix Assessment/Plan Assessment/Plan 1. Acute GI bleed, hematochezia. 2. Anemia of acute blood loss, severe symptomatic type. 3. Acute kidney injury on admission, improved. 4. Hypertension history. 5. Diabetes. 6. Cirrhosis of the liver. 7. Hepatitis C. 8. Elevated AST. 9. Elevated ammonia level on admission. 10. Pancytopenia on admission. RECOMMENDATIONS bleeding scan negative S/P colonoscopy 01/02, colon full of blood, no active bleeding. S/P EGD, food, ? gastroparesis S/P colonoscopy 10, semiformed stool, no active bleeding. S/P EGD, varices and banding x 3, portal gastropathy s/p PRBC transfusion, HH stable Thrombocytopenia, plat. stable 113 Sandostatin continue PPI, now continue Reglan Continue abx blood cultures negative renal function improving continue IVF accuchecks with ISS PT for eval and tx OOB with assist Labs reviewed, replace K SCDs for DVT prophylaxis PPI for GI prophylaxis CM for dc planning, HHC with PT Poss dc tomorrow D/W Dr. [place] D/W pt D/W pt's family This patient was seen by myself and Dr. [place], this note is written on his behalf. Joanna Herrera January 08, 2017 13:24
[2017-01-08] MEDS ORDERED: POTASSIUM CHLORIDE 25 MEQ EFFERVESCENT TAB PO ONE (15:00)
--- NOTE | 2017-01-08 16:29 | HHI.GIFU ---
Subjective Remarks Pt sitting in chair, says he walked aroudn today and feels good. No BM yet today, no bleeding. (Carissa Zhu) Objective Vitals I&O Vital Signs Date Time Temp Pulse Resp B/P Pulse Ox O2 Delivery O2 Flow Rate FiO2 01/08/17 12:00 97.8 70 20 129/68 98 01/08/17 08:50 98 21 01/08/17 08:11 65 01/08/17 08:00 97.6 63 20 155/73 97 01/08/17 04:00 97.8 65 20 123/61 96 01/08/17 00:00 97.6 61 20 162/79 97 01/07/17 22:00 58 01/07/17 20:00 97.4 73 20 143/76 100 01/07/17 17:40 97.9 61 20 186/88 100 I/O 01/07/17 01/07/17 01/07/17 01/08/17 01/08/17 01/08/17 07:00 15:00 23:00 07:00 15:00 23:00 Intake Total 210 ml 1234 ml 480 ml 340 ml 102 ml Output Total 1100 ml 1400 ml 200 ml 500 ml Balance -890 ml -166 ml 280 ml -160 ml 102 ml Intake Oral 60 ml 970 ml 480 ml 340 ml IV Total 150 ml 264 ml 102 ml Output Urine Total 1100 ml 1400 ml 200 ml 500 ml # Voids 2 # Bowel Movements 1 2 2 Laboratory Laboratory Tests Test 01/08/17 01/08/17 08:48 11:14 White Blood Count 3.6 Red Blood Count 3.41 Hemoglobin 9.8 Hematocrit 30.3 Mean Corpuscular Volume 88.9 Mean Corpuscular Hemoglobin 28.6 Mean Corpuscular Hemoglobin 32.2 Concent Red Cell Distribution Width 16.8 Platelet Count 113 Mean Platelet Volume 9.6 Sodium Level 139 Potassium Level 3.4 Chloride Level 107 Carbon Dioxide Level 24.6 Anion Gap 7 Blood Urea Nitrogen 14 Creatinine 0.87 Estimat Glomerular Filtration 90 Rate Random Glucose 216 Calcium Level 8.0 Imaging Last Impressions GI Bleed Scan Nuclear Medicine 01/02/17 0000 Signed Impressions: Service Date/Time: Monday, January 02, 2017 17:07 - CONCLUSION: 1. No active gastrointestinal bleed identified. Alfonso Hernandez MD Physical Exam HEENT: Normocephalic; atraumatic CHEST: CTA CARDIAC: RRR ABDOMEN: Soft, mildly bloated, nontender; no hepatosplenomegaly; bowel sounds are present in all four quadrants. EXTREMITIES: No clubbing, cyanosis, or edema. SKIN: Normal; no rash; no jaundice. SPECIAL PROCEDURES TECH: No focal deficits; alert and oriented times three. (Carissa Zhu) Assessment and Plan Plan ASSESSMENT - GIB, hematochezia. Hx cirrhosis, portal gastropathy. S/P EGD (12-02-16)----- > Portal hypertensive gastropathy, old blood. S/P Colonoscopy (01/01/17)-----> colon full of blood, no active bleeding seen, hemorrhoids. GI Bleeding Scan (01/02/17)---> 1. No active gastrointestinal bleed identified. S/P EGD (01/05/17)----> 1. Large amount of food in stomach, possible gastroparesis esophageal varices. S/P EGD/Colonoscopy (01/06/17)---> 1. Portal gastropathy esophageal varices -grade 2-s/p banding 3 2. Retroflexed views revealed a hiatal hernia, 1. Semisolid stool 2. Retroflexed views revealed internal hemorrhoids 3. Retroflexed views revealed small internal hemorrhoids 4. Revealed internal hemorrhoids. S/P 5 units PRBC. HH 9.2/27.9. Protonix gtt. Propranolol - Anemia secondary to acute blood loss. S/P 5 units PRBC. H/H 9.8/30.3. - Cirrhosis, secondary to HCV, ETOH. Hep c tx naive. Had paracentesis 12/18 with 5000cc removed. diuretics. - DM, Neutropenia, per primary PLAN - 2 gram sodium diet, diabetic diet - continue PPI - Cont. Lasix, Spironolactone - Cont. Propranolol- Monitor labs - Transfuse as necessary - Supportive care - Further recommendations to follow based on results of above - Pt seen and examined by Dr. Minor and myself and this note is written on his behalf (Carissa Zhu) Carissa Zhu January 08, 2017 16:29 Jody Minor MD January 08, 2017 18:02
[2017-01-08] MEDS: NICOTINE 7 MG/24 HR PATCH T-DERMAL SCH (16:39)
[2017-01-08] MEDS: cefTRIAXone INJ 1,000 MG in SODIUM CHLORIDE 0.9% INJ 100 ML IV SCH (16:41)
[2017-01-08] MEDS: hydrALAZINE HCL 20 MG/ML VIAL IV PUSH PRN (18:19)
[2017-01-08] MEDS ORDERED: REMOVE OLD PATCH T-DERMAL SCH (21:00)
[2017-01-09] VITALS: BP 161/75; PULSE 61; RESP 18; TEMP 98.2; O2SAT 100
[2017-01-09] MEDS: METOCLOPRAMIDE HCL 10 MG/2 ML VIAL IM SCH ×2 (00:02→09:44)
[2017-01-09] MEDS: INSULIN NovoLIN REGULAR SUPPLEMENTAL SCALE SQ SCH ×2 (00:30→03:27)
[2017-01-09] MEDS: CHLORHEXIDINE GLUCONATE 2 % 1 PACK (2 CLOTHS) TOP SCH (03:27)
[2017-01-09 04:00] VITALS: BP 140/66; PULSE 73; RESP 20; TEMP 97.6; O2SAT 96
[2017-01-09 07:35] VITALS: BP 188/81; PULSE 58; RESP 18; TEMP 98.2; O2SAT 97
[2017-01-09] MEDS ORDERED: PROP10TA6 PO (08:34)
[2017-01-09] MEDS ORDERED: FURO20TA PO (08:34)
[2017-01-09] MEDS ORDERED: Spironolactone PO (08:34)
--- NOTE | 2017-01-09 08:34 | HHI.DCPOC ---
Discharge Care Plan Diagnosis: (1) Anemia (2) GI bleed Your Health Problems Are: Bleeding Tendency Goals to Promote Your Health * To prevent worsening of your condition and complications * To maintain your health at the optimal level Directions to Meet Your Goals Take your medications as prescribed Follow your dietary instruction Follow activity as directed Keep your appointments as scheduled Take your immunizations and boosters as scheduled If your symptoms worsen call your PCP, if no PCP go to Urgent Care Center or Emergency Room Smoking is Dangerous to Your Health. Avoid second hand smoke Call the 24-hour hour crisis hotline for domestic abuse at Joanna Herrera. [facility] January 09, 2017 08:34
[2017-01-09] MEDS: LACTULOSE SYRUP 20 GM/30 ML CUP PO SCH (09:00)
[2017-01-09] MEDS: FOLIC ACID 1 MG TAB PO SCH (09:00)
[2017-01-09] MEDS ORDERED: cloNIDine HCL 0.1 MG TAB PO PRN (09:30)
--- NOTE | 2017-01-09 09:30 | HHI.PR ---
Subjective Subjective Remarks eating well no blood in stool no hematemesis no cp no sob has been walking around with walker awake, oriented x 3 pleasant anxious to go home chronic back pain, requesting medication that won't affect his liver, will f/u as OP with pain management Review of Systems Constitutional Constitutional Remarks 12 point ROS completed, negative except as noted above Vitals/Results Intake & Output 01/08/17 01/08/17 01/09/17 15:00 23:00 07:00 Intake Total 1422 ml 360 ml Balance 1422 ml 360 ml Intake Oral 1320 ml 360 ml IV Total 102 ml # Voids 3 3 # Bowel Movements 3 2 Vital Signs Vital Signs Date Time Temp Pulse Resp B/P Pulse Ox O2 Delivery O2 Flow Rate FiO2 01/09/17 07:35 98.2 58 18 188/81 97 01/09/17 04:00 97.6 73 20 140/66 96 01/09/17 00:00 98.2 61 18 161/75 100 01/08/17 20:15 21 01/08/17 20:00 98.2 72 20 146/71 99 01/08/17 20:00 82 01/08/17 16:00 97.5 58 20 186/84 100 01/08/17 12:00 97.8 70 20 129/68 98 CBC/BMP: 01/08/17 0848 01/08/17 1114 Lab Results Laboratory Tests Test 01/08/17 11:14 Sodium Level 139 MEQ/L Potassium Level 3.4 MEQ/L Chloride Level 107 MEQ/L Carbon Dioxide Level 24.6 MEQ/L Anion Gap 7 MEQ/L Blood Urea Nitrogen 14 MG/DL Creatinine 0.87 MG/DL Estimat Glomerular Filtration 90 ML/MIN Rate Random Glucose 216 MG/DL Calcium Level 8.0 MG/DL Physical Exam General General Appearance: Well Developed, Well Nourished, Comfortable, Pale Eyes Eye Exam: Pupils Equal, Pupils Reactive Ears & Nose Ears & Nose Exam: Nasal Mucosa Berger Throat Throat Exam: Oral Mucosa Berger & Moist Neck Neck Exam: Neck Supple, Trachea Midline Pulmonary Resp Exam: Clear Bilaterally, No Distress Cardiology CV Exam: Regular, Good Perfusion Gastrointestinal/Abdomen GI Exam: Soft, Non-Tender, Bowel Sounds Present Musculoskeletal MS Exam: Joints Intact Integumentary Skin Exam: Warm, Dry Extremeties Extremities Exam: No Edema, Pedal Pulses Palpable Neurologic Neuro Exam: Alert, Awake, Speech Clear, Moving All Extremities, No Focal Deficits Psychiatric Psych Exam: Appropriate Responses VTE Prophylaxis VTE Prophylaxis Device: SCDs PUD Prophylasis PUD Prophylaxis: Protonix Assessment/Plan Assessment/Plan 1. Acute GI bleed, hematochezia. 2. Anemia of acute blood loss, severe symptomatic type. 3. Acute kidney injury on admission, improved. 4. Hypertension history. 5. Diabetes. 6. Cirrhosis of the liver. 7. Hepatitis C. 8. Elevated AST. 9. Elevated ammonia level on admission. 10. Pancytopenia on admission. 11. Chronic back pain 12. Neuropathy RECOMMENDATIONS bleeding scan negative S/P colonoscopy 01/02, colon full of blood, no active bleeding. S/P EGD, food, ? gastroparesis S/P colonoscopy 01/06, semiformed stool, no active bleeding. S/P EGD, varices and banding x 3, portal gastropathy s/p PRBC transfusion, HH stable Thrombocytopenia, plat. stable 113 Sandostatin continue PPI, now continue Reglan dc abx blood cultures negative renal function improved DC IVF accuchecks with ISS BP elevated, Clonidine PRN now continue home meds PT for eval and tx-using walker OOB with assist SCDs for DVT prophylaxis PPI for GI prophylaxis CM for dc planning, HHC with PT Discharge home today F/U Dr. Minor 2 weeks Diet-heart healthy Activity-as tolerated D/W Dr. [place] D/W pt D/W RN This patient was seen by myself and Dr. [place], this note is written on his behalf. Joanna Herrera January 09, 2017 09:29
--- NOTE | 2017-01-09 09:32 | HHI.DS ---
Discharge Summary Admission Date January 01, 2017 at 14:32 Discharge Date: January 09, 2017 Admitting Diagnosis GI bleed (1) UGIB (upper gastrointestinal bleed) (2) History of alcohol abuse (3) Ascites (4) Gastritis (5) Esophageal varices (6) Diabetes 1.5, managed as type 2 (7) Anemia Procedures S/P colonoscopy 01/02, colon full of blood, no active bleeding. S/P EGD, food, ? gastroparesis S/P colonoscopy 01/06, semiformed stool, no active bleeding. S/P EGD, varices and banding x 3, portal gastropathy CBC/BMP: 01/08/17 0848 01/08/17 1114 Significant Findings Laboratory Tests Test 01/07/17 01/08/17 01/08/17 04:08 08:48 11:14 White Blood Count 2.9 TH/MM3 3.6 TH/MM3 (4.0-11.0) (4.0-11.0) Red Blood Count 3.16 MIL/MM3 3.41 MIL/MM3 (4.50-5.90) (4.50-5.90) Hemoglobin 9.2 GM/DL 9.8 GM/DL (13.0-17.0) (13.0-17.0) Hematocrit 27.9 % 30.3 % (39.0-51.0) (39.0-51.0) Platelet Count 91 TH/MM3 113 TH/MM3 (150-450) (150-450) Lymphocytes # (Auto) 0.6 TH/MM3 (1.0-4.8) Platelet Estimate LOW (NORMAL) Random Glucose 119 MG/DL 216 MG/DL (74-106) (74-106) Calcium Level 8.4 MG/DL 8.0 MG/DL (8.5-10.1) (8.5-10.1) Potassium Level 3.4 MEQ/L (3.5-5.1) Imaging Last Impressions GI Bleed Scan Nuclear Medicine 01/02/17 0000 Signed Impressions: Service Date/Time: Monday, January 02, 2017 17:07 - CONCLUSION: 1. No active gastrointestinal bleed identified. Alfonso Hernandez MD Hospital Course The patient is a very pleasant 56-year male with a significant past history of cirrhosis of the liver, portal hypertension, GI bleed, hypertension, diabetes, hepatitis C. The patient came to the ER because of the maroonish or black tarry colored stools. The patient was admitted to the ICU. The patient was seen and followed by application architect. The patient had multiple transfusions, total of 5. The patient had a EGD done. EGD showed the patient had a normal duodenal mucosa. Had retained food in his stomach. No blood seen. He had retroflexed uvula. No abnormality. The patient had a colonoscopy done. Colonoscopy shows patient has a colon full of blood. No active bleeding seen. Retroflexed view revealed internal hemorrhoids and revealed external hemorrhoids as well. A bleeding scan was done. Bleeding scan showed the patient has no active gastrointestinal bleed identified. The patient was monitored in the intensive care unit. He was stabilized, HH stable, he was transferred to the floor. Patient was eventually transfer, H&H remained stable His appetite improved, as well as energy. He had no dizziness, no chest pain, shortness of breath, no palpitations. Physical therapy was ordered, patient ambulated with walker His platelets were monitor, he had chronic thrombocytopenia. Platelets were stable at 113. No active bleeding. He was taken off Sandostatin and protonix strip. He was put on by mouth Protonix. He was initially put on antibiotics, blood cultures remained negative. Antibiotics were eventually discontinued. Initially he was in acute renal injury, this improved after IV fluids. He was put on Accu-Cheks with insulin per sliding scale. Blood pressure was elevated, this was managed with home medications and clonidine when necessary was added. Case management was consulted for discharge planning, home health care was ordered. Discharge plan was discussed with the patient and his family, their questions answered in detail Patient had no further GI bleeding, H&H remained stable, patient was ambulatory with walker Patient was stable for discharge Instructed to: F/U Dr. Minor 2 weeks Diet-heart healthy Activity-as tolerated Pt Condition on Discharge: Stable Discharge Disposition: Disch w/ Home Health Serv Discharge Instructions DIET: Follow Instructions for: Heart Healthy Diet Activities you can perform: Weight Bearing as Brianna Other Activity Instructions: FALL PRECAUTIONS Follow up Referrals: Gastroenterology with Jody Minor MD PCP Follow-up New Medications: Furosemide (Furosemide) 20 Mg Tab 20 MG PO DAILY ASCITES #30 Ref 1 TAB Propranolol (Propranolol) 10 Mg Tab 10 MG PO Q12HR LIVER FAILURE #60 Ref 1 TAB ([Spironolactone]) 25 MG TAB 25 MG PO BID@18 #60 Ref 0 TAB Continued Medications: Baclofen (Baclofen) 20 Mg Tab 20 MG PO TID Muscle Spasm Ref 0 TAB Buspirone (Buspirone) 10 Mg Tab 10 MG PO TID Anxiety Ref 0 TAB Calcium Carbonate (Antacid) (Tums) 500 Mg Chew 500 MG CHEW DAILY PRN HEARTBURN Ref 0 TAB Lactulose Liq (Lactulose Liq) 10 Gm/15 Ml Soln 30 ML PO TID hepatic enceph #90 ML Pantoprazole (Pantoprazole) 40 Mg Tab 40 MG PO DAILY gib #30 TAB Pregabalin (Lyrica) 300 Mg Cap 300 MG PO TID #90 Ref 0 CAP Rifaximin (Xifaxan) 550 Mg Tab 550 MG PO BID HE #60 TAB Tamsulosin (Flomax) 0.4 Mg Cap 0.8 MG PO DAILY bph #60 CAP Discontinued Medications: Furosemide (Lasix) 40 Mg Tab 40 MG PO DAILY ascites #30 Ref 0 TAB Propranolol (Propranolol) 10 Mg Tab 20 MG PO Q8HR portal hypertension #90 TAB Spironolactone (Spironolactone) 100 Mg Tab 100 MG PO BID ascites #60 TAB Joanna Herrera January 09, 2017 09:32
[2017-01-09] MEDS: MULTIVITAMIN TAB PO SCH (09:42)
[2017-01-09] MEDS: RIFAXIMIN 550 MG TAB PO SCH (09:42)
[2017-01-09] MEDS: TAMSULOSIN HCL 0.4 MG CAP PO SCH (09:42)
[2017-01-09] MEDS: PREGABALIN 75 MG CAP PO SCH (09:42)
[2017-01-09] MEDS: busPIRone HCL 10 MG TAB PO SCH (09:42)
[2017-01-09] MEDS: SPIRONOLACTONE 25 MG TAB PO SCH (09:42)
[2017-01-09] MEDS: FUROSEMIDE 20 MG TAB PO SCH (09:42)
[2017-01-09] MEDS: PANTOPRAZOLE SOD 40 MG DELAYED RELEASE TAB PO SCH (09:42)
[2017-01-09] MEDS: PROPRANOLOL HCL 10 MG TAB PO SCH (09:42)
[2017-01-09] MEDS: NICOTINE 7 MG/24 HR PATCH T-DERMAL SCH (09:43)
[2017-01-09] MEDS: BACLOFEN 20 MG TAB PO SCH (09:43)
[2017-01-09] MEDS ORDERED: NORC5TAB PO (10:36)
== END 2017-01-09 11:09 | disposition home health service (06) | DRG 432 ==
LOC: NEPC 13:13 → NEDA 14:32 → N03A 19:03 → N04B 01-07 17:30
PROVIDERS: ADMIT Specialist; ATTEND Specialist
PROC: 30233N1 Transfusion of Nonautologous Red Blood Cells into Peripheral Vein, Percutaneous Approach (ICD-10-PCS; 2017-01-01)
PROC: 0DJ08ZZ Inspection of Upper Intestinal Tract, Via Natural or Artificial Opening Endoscopic (ICD-10-PCS; 2017-01-01)
PROC: 0DJD8ZZ Inspection of Lower Intestinal Tract, Via Natural or Artificial Opening Endoscopic (ICD-10-PCS; 2017-01-02)
PROC: 0DJ08ZZ Inspection of Upper Intestinal Tract, Via Natural or Artificial Opening Endoscopic (ICD-10-PCS; 2017-01-05)
PROC: 0DJD8ZZ Inspection of Lower Intestinal Tract, Via Natural or Artificial Opening Endoscopic (ICD-10-PCS; 2017-01-06)
PROC: 0W3P8ZZ Control Bleeding in Gastrointestinal Tract, Via Natural or Artificial Opening Endoscopic (ICD-10-PCS; principal; 2017-01-06 15:08)
DX: K70.31 Alcoholic cirrhosis of liver with ascites (principal); I85.11 Secondary esophageal varices with bleeding; N17.9 Acute kidney failure, unspecified; E87.0 Hyperosmolality and hypernatremia; D61.818 Other pancytopenia; E11.40 Type 2 diabetes mellitus with diabetic neuropathy, unspecified; D62 Acute posthemorrhagic anemia; K76.6 Portal hypertension; K31.84 Gastroparesis; B19.20 Unspecified viral hepatitis C without hepatic coma; I10 Essential (primary) hypertension; K72.90 Hepatic failure, unspecified without coma; N40.0 Benign prostatic hyperplasia without lower urinary tract symptoms; K64.8 Other hemorrhoids; E11.43 Type 2 diabetes mellitus with diabetic autonomic (poly)neuropathy; E78.5 Hyperlipidemia, unspecified; F17.210 Nicotine dependence, cigarettes, uncomplicated; K64.4 Residual hemorrhoidal skin tags; K44.9 Diaphragmatic hernia without obstruction or gangrene; E83.51 Hypocalcemia; R00.1 Bradycardia, unspecified; G89.29 Other chronic pain; M54.9 Dorsalgia, unspecified; Z88.1 Allergy status to other antibiotic agents
CPT/HCPCS: 36430; 78278; 80048; 80053; 80076; 80307; 81001; 82140; 82550; 82948; 83605; 83690; 83735; 84100; 85007; 85014; 85018; 85025; 85027; 85384; 85610; 85730; 86850; 86900; 86901; 86920; 87040; 87641; 93005; 96374; A9560; C9113; J0360; J0610; J0696; J1940; J2270; J2354; J2765; J3010; J3411; J3475; J7030; J7040; J7120; P9016

== ENCOUNTER 2017-01-24 13:40 | Emergency (ER) | payer MEDICARE, MEDICAID ==
[~2017-01-24] VITALS: Ht 182.9 cm; Wt 80.0 kg
[~2017-01-24 13:40] MED LIST changes: -EPIN1INJ21 IV PUSH; -EPIN1INJ21 SQ; -FERR325T PO; -FURO1TAB60 PO; +FURO20TA PO; -HYDR-3583 PO; -INVA1INJ IV; -LACTCHW3 CHEW; +NORC5TAB PO; -SOLU250I IV PUSH; -SPIR100T PO; +Spironolactone PO
[2017-01-24 13:42] VITALS: BP 148/70; PULSE 79; RESP 18; TEMP 98.4; O2SAT 95
[2017-01-24 14:31] LABS: AUTOMATED NEUTROPHIL # 1.7 TH/MM3 (1.8-7.7); BASOPHIL % 1.2 % (0.0-2.0); EOSINOPHIL # 0.1 TH/MM3 (0-0.4); EOSINOPHIL % 3.4 % (0.0-4.0); LYMPH % 23.6 % (9.0-44.0); LYMPHOCYTE # 0.6 TH/MM3 (1.0-4.8); MEAN CELL VOLUME 89.8 FL (80.0-100.0); MEAN CORPUSCULAR HEMOGLOBIN 28.7 PG (27.0-34.0); MONO % 8.4 % (0.0-8.0); NEUT % 63.4 % (16.0-70.0); PLATELET COUNT 75 TH/MM3 (150-450); RED BLOOD COUNT 3.11 MIL/MM3 (4.50-5.90); RED CELL DISTRIBUTION WIDTH 18.2 % (11.6-17.2); WHITE BLOOD COUNT 2.6 TH/MM3 (4.0-11.0)
[2017-01-24 14:32] LABS: HEMO FLAGS AUTO DIFF
[2017-01-24 14:39] LABS: APTT (PATIENT) 27.8 SEC (24.3-30.1); INTERNATIONAL NORMALIZED RATIO 1.1 RATIO
[2017-01-24 14:48] LABS: ALT (GPT) 43 U/L (12-78); ANION GAP 10 MEQ/L (5-15); AST (GOT) 51 U/L (15-37); BICARBONATE 24.9 MEQ/L (21.0-32.0); BLOOD UREA NITROGEN 16 MG/DL (7-18); CHLORIDE 101 MEQ/L (98-107); GLOMERULAR FILTRATION RATE 95 ML/MIN (>89); POTASSIUM 4.1 MEQ/L (3.5-5.1); SODIUM (NA) 136 MEQ/L (136-145)
[2017-01-24 14:51] LABS: ALKALINE PHOSPHATASE 118 U/L (45-117); TOTAL BILIRUBIN ADULT 0.8 MG/DL (0.2-1.0)
[2017-01-24 15:13] LABS: PLATELET ESTIMATE SMEAR LOW (NORMAL); PLATELET MORPHOLOGY NORMAL (NORMAL); SCAN/DIFF AUTO DIFF CONFIRMED
[2017-01-24] MEDS ORDERED: INSULIN HUMAN REGULAR 1,000 UNITS/10 ML VIAL IV PUSH ONE (15:15)
--- NOTE | 2017-01-24 15:24 | PD ---
HPI Chief Complaint: Abdominal Pain Time Seen by Provider: 13:51 Travel History International Travel<30 days: No Contact w/Intl Traveler<30days: No Traveled to known affect area: No History of Present Illness HPI This is a 56-year-old male who has a history of cirrhosis who presents to the emergency department reporting increasing abdominal distention that's been going on for 1 week, constant, moderate severity to the point where he is having pain when he takes a deep breath. He denies any fevers or chills. He feels like he probably needs some of this fluid drained but he was concerned he was given a make it to his primary care physician appointment later this week because it is a holiday. PFSH Past Medical History Hx Anticoagulant Therapy: Yes (ASA) Anxiety: No Depression: No Cancer: No Cardiovascular Problems: Yes High Cholesterol: Yes Diabetes: Yes Diminished Hearing: No Endocrine: Yes Gastrointestinal Disorders: No Genitourinary: No Hepatitis: Yes (C) Hiatal Hernia: No Hypertension: Yes Immune Disorder: No Implanted Vascular Access Dvce: Yes Musculoskeletal: Yes (NEUROPATHY) Neurologic: Yes (DIABETIC NEUROPATHY) Psychiatric: No Reproductive: No Respiratory: No Immunizations Current: Yes Thyroid Disease: No Ulcer: Yes Past Surgical History Abdominal Surgery: Yes (APPENDECTOMY PARENCENTESIS ACITES) Appendectomy: Yes Body Medical Devices: PLATE IN RIGHT SHOULDER Cardiac Surgery: No Ear Surgery: No Endocrine Surgery: No Eye Surgery: No Genitourinary Surgery: No Gynecologic Surgery: No Oral Surgery: No Pacemaker: No Thoracic Surgery: No Tonsillectomy: Yes Other Surgery: Yes (right clavical with metal, LIVER PARACENTESIS) Social History Alcohol Use: No Tobacco Use: No Substance Use: No Allergies-Medications (Allergen,Severity, Reaction): Coded Allergies: Neosporin (Verified Allergy, Mild, 01/01/17) Polysporin (Verified Allergy, Mild, RASH, 01/01/17) *MDRO Multi-Drug Resistant Organism (Verified Adverse Reaction, Unknown, ) ESBL E. coli (urine) - 12/15/16 Reported Meds & Prescriptions Reported Meds & Active Scripts Active Celestine (Hydrocodone-Acetaminophen) 5-325 mg Tab 1 Tab PO TID PRN Propranolol (Propranolol HCl) 10 Mg Tab 10 Mg PO Q12HR Furosemide 20 Mg Tab 20 Mg PO DAILY [Spironolactone] 25 MG Tab 25 Mg PO BID@,18 Pantoprazole (Pantoprazole Sodium) 40 Mg Tab 40 Mg PO DAILY Flomax (Tamsulosin HCl) 0.4 Mg Cap 0.8 Mg PO DAILY Xifaxan (Rifaximin) 550 Mg Tab 550 Mg PO BID Lactulose Liq (Lactulose) 10 Gm/15 Ml Soln 30 Ml PO TID Reported Tums (Calcium Carbonate (Antacid)) 500 Mg Chew 500 Mg CHEW DAILY PRN Lyrica (Pregabalin) 300 Mg Cap 300 Mg PO TID Buspirone (Buspirone HCl) 10 Mg Tab 10 Mg PO TID Baclofen 20 Mg Tab 20 Mg PO TID Review of Systems Except as stated in HPI: all other systems reviewed are Neg Physical Exam Narrative GENERAL: Chronically ill-appearing SKIN: Is on the chest wall, pale HEAD: Atraumatic. Normocephalic. EYES: Pupils equal and round. No injection or drainage. ENT: Moist mucous membranes NECK: Trachea midline. CARDIOVASCULAR: Regular rate and rhythm. No murmur appreciated. RESPIRATORY: Clear to auscultation. Breath sounds equal bilaterally. GASTROINTESTINAL: Abdomen soft, non-tender, distended with fluid wave, hepatomegaly MUSCULOSKELETAL: No obvious deformities. NEUROLOGICAL: Awake and alert. No obvious cranial nerve deficits. Moving all extremities. PSYCHIATRIC: Appropriate mood and affect; insight and judgment normal. Data Data Last Documented VS Vital Signs Date Time Temp Pulse Resp B/P Pulse Ox O2 Delivery O2 Flow Rate FiO2 01/24/17 13:42 98.4 79 18 148/70 95 Orders Complete Blood Count With Diff (01/24/17 14:08) Comprehensive Metabolic Panel (01/24/17 14:08) Prothrombin Time / Inr (Pt) (01/24/17 14:08) Act Partial Throm Time (Ptt) (01/24/17 14:08) Insulin Human Regular Inj (Novolin R Inj (01/24/17 15:15) Labs Laboratory Tests Test 01/24/17 14:22 White Blood Count 2.6 TH/MM3 Red Blood Count 3.11 MIL/MM3 Hemoglobin 8.9 GM/DL Hematocrit 28.0 % Mean Corpuscular Volume 89.8 FL Mean Corpuscular Hemoglobin 28.7 PG Mean Corpuscular Hemoglobin 32.0 % Concent Red Cell Distribution Width 18.2 % Platelet Count 75 TH/MM3 Mean Platelet Volume 10.4 FL Neutrophils (%) (Auto) 63.4 % Lymphocytes (%) (Auto) 23.6 % Monocytes (%) (Auto) 8.4 % Eosinophils (%) (Auto) 3.4 % Basophils (%) (Auto) 1.2 % Neutrophils # (Auto) 1.7 TH/MM3 Lymphocytes # (Auto) 0.6 TH/MM3 Monocytes # (Auto) 0.2 TH/MM3 Eosinophils # (Auto) 0.1 TH/MM3 Basophils # (Auto) 0.0 TH/MM3 CBC Comment AUTO DIFF Differential Comment AUTO DIFF CONFIRMED Platelet Estimate LOW Platelet Morphology Comment NORMAL Prothrombin Time 12.0 SEC Prothromb Time International 1.1 RATIO Ratio Activated Partial 27.8 SEC Thromboplast Time Sodium Level 136 MEQ/L Potassium Level 4.1 MEQ/L Chloride Level 101 MEQ/L Carbon Dioxide Level 24.9 MEQ/L Anion Gap 10 MEQ/L Blood Urea Nitrogen 16 MG/DL Creatinine 0.83 MG/DL Estimat Glomerular Filtration 95 ML/MIN Rate Random Glucose 384 MG/DL Calcium Level 8.5 MG/DL Total Bilirubin 0.8 MG/DL Aspartate Amino Transf 51 U/L (AST/SGOT) Alanine Aminotransferase 43 U/L (ALT/SGPT) Alkaline Phosphatase 118 U/L Total Protein 7.6 GM/DL Albumin 2.7 GM/DL MDM Medical Decision Making Medical Screen Exam Complete: Yes Emergency Medical Condition: Yes Interpretation(s) Afebrile, no tachycardia, mild hypertension Leukopenia Anemia Thrombocytopenia Coags are normal Hyperglycemia Differential Diagnosis Cirrhosis, spontaneous bacterial peritonitis, ascites Narrative Course This is a 56-year-old male who presents to the emergency department with increasing abdominal distention in the setting of cirrhosis. He is well- appearing with a normal oxygen saturation and I don't think this reflects a medical emergency. Patient requires a therapeutic paracentesis. He was provided with a phone number for ultrasound and he was given a prescription for an outpatient procedure. Patient will be discharged home. Diagnosis Primary Impression: Ascites Qualified Code: R18.8 - Other ascites Patient Instructions: General Instructions Additional Instructions: If you develop severe or worsening abdominal pain, fever>100.4, persistent vomiting or inability to eat or drink return to the emergency department immediately. Follow up with your primary care physician in 1-2 days for a check-up. Call [phone] to make an appointment for your paracentesis. Med/Other Pt SpecificInfo: No Change to Meds Disposition: 01 DISCHARGE HOME Condition: Stable Roya Hester MD January 24, 2017 15:24
== END 2017-01-24 15:54 | disposition home or self-care (01) ==
LOC: NEPC 13:40
DX: R18.8 Other ascites (principal); K74.60 Unspecified cirrhosis of liver
CPT/HCPCS: 80053; 85025; 85610; 85730; 99283

== ENCOUNTER → 2017-01-27 | Day surgery (SDC) | payer MEDICARE, MEDICAID ==
[~2017-01-27] MED LIST changes: +ALDA50TA2 PO; +HYDR-3516 PO; +LYRI75CA PO
[2017-01-27 10:35] VITALS: BP 124/74; PULSE 68; RESP 16; TEMP 97; O2SAT 96
--- NOTE | 2017-01-27 11:54 | RADRPT ---
EXAM DATE/TIME: 01/27/2017 10:32 [place] COMPARISON: No previous studies available for comparison. INDICATIONS : Evaluate for ascites. MEDICAL HISTORY : Hypertension. Hepatitis C. Cirrhosis. Diabetic. SURGICAL HISTORY : Appendectomy. Tonsillectomy. Right shoulder plate. ENCOUNTER: Subsequent ACUITY: 2 days PAIN SCORE: 5/10 LOCATION: Lower abdomen. AREA EVALUATED: Four quadrant. FINDINGS: Imaging of the abdomen and pelvis was performed to evaluate for ascites for possible paracentesis. CONCLUSION: Only trace ascites is evident. Long Bella MD FACR on January 27, 2017 at 11:52 Board Certified Radiologist. This report was verified electronically.
== END | disposition home or self-care (01) ==
LOC: HRAD 09:58
PROVIDERS: ATTEND Emergency Medicine
DX: K74.60 Unspecified cirrhosis of liver (principal); B19.20 Unspecified viral hepatitis C without hepatic coma; R18.8 Other ascites; I10 Essential (primary) hypertension; E11.9 Type 2 diabetes mellitus without complications
CPT/HCPCS: 76705

== ENCOUNTER → 2017-01-28 | Outpatient (CLI) | payer MEDICARE, MEDICAID ==
[2017-01-28 11:49] LABS: AUTOMATED NEUTROPHIL # 1.5 TH/MM3 (1.8-7.7); BASOPHIL % 1.1 % (0.0-2.0); HEMATOCRIT 30.5 % (39.0-51.0); LYMPHOCYTE # 0.5 TH/MM3 (1.0-4.8); MEAN CELL VOLUME 90.6 FL (80.0-100.0); MEAN CORPUSCULAR HEMOGLOBIN 28.5 PG (27.0-34.0); MEAN CORPUSCULAR HGB CONC 31.5 % (32.0-36.0); MONO % 6.8 % (0.0-8.0); NEUT % 67.1 % (16.0-70.0); PLATELET COUNT 91 TH/MM3 (150-450); RED BLOOD COUNT 3.37 MIL/MM3 (4.50-5.90); RED CELL DISTRIBUTION WIDTH 18.3 % (11.6-17.2); WHITE BLOOD COUNT 2.3 TH/MM3 (4.0-11.0)
[2017-01-28 11:59] LABS: HEMO FLAGS AUTO DIFF
[2017-01-28 12:24] LABS: ALT (GPT) 53 U/L (12-78); ANION GAP 8 MEQ/L (5-15); AST (GOT) 66 U/L (15-37); BICARBONATE 26.1 MEQ/L (21.0-32.0); BLOOD UREA NITROGEN 14 MG/DL (7-18); CHLORIDE 102 MEQ/L (98-107); GLOMERULAR FILTRATION RATE 94 ML/MIN (>89); GLUCOSE,FASTING 311 MG/DL (74-99); POTASSIUM 4.3 MEQ/L (3.5-5.1); SODIUM (NA) 136 MEQ/L (136-145)
[2017-01-28 12:27] LABS: ALKALINE PHOSPHATASE 131 U/L (45-117); TOTAL BILIRUBIN ADULT 1.1 MG/DL (0.2-1.0)
[2017-01-28 12:50] LABS: PLATELET ESTIMATE SMEAR LOW (NORMAL); PLATELET MORPHOLOGY NORMAL (NORMAL); SCAN/DIFF AUTO DIFF CONFIRMED
[2017-01-30 23:50] LABS: HCV RNA PCR IU/ML 1280000 IU/mL (()); HCV RNA PCR LOGIU/ML 6.11 (())
== END ==
LOC: ELAB 09:38
PROVIDERS: ATTEND Internal Medicine Gastroenterology
DX: B19.20 Unspecified viral hepatitis C without hepatic coma (principal); K74.60 Unspecified cirrhosis of liver
CPT/HCPCS: 36415; 80053; 80074; 80307; 82248; 85025; 86703; 86708; 87522

== ENCOUNTER 2017-02-02 02:18 | Inpatient (IN) | payer MEDICARE, MEDICAID ==
[~2017-02-02] VITALS: Ht 182.9 cm; Wt 78.7 kg
[2017-02-02] VITALS (18 sets, daily range): BP systolic 88–143; BP diastolic 53–69; PULSE 63–83; RESP 12–20; TEMP 97.4–98.6; O2SAT 95–100
[~2017-02-02 02:18] MED LIST changes: -ALDA50TA2 PO; -HYDR-3516 PO; -LYRI75CA PO
[2017-02-02] MEDS ORDERED: ONDANSETRON HCL 4 MG/2 ML VIAL ONE (02:31)
[2017-02-02] MEDS ORDERED: SODIUM CHLOR 0.9% 1000 ML INJ 1,000 ML IV SCH (02:32)
[2017-02-02] MEDS ORDERED: ONDANSETRON HCL 4 MG/2 ML VIAL IVP ONE (02:45)
[2017-02-02] MEDS ORDERED: OCTREOTIDE INJ 100 MCG/ML VIAL IV PUSH ONE (02:45)
[2017-02-02] MEDS ORDERED: OCTREOTIDE INJ 50 MCG/ML AMP IV ONE (02:45)
[2017-02-02] MEDS ORDERED: SODIUM CHLORIDE 0.9% FLUSH 10 ML FLUSH IVF PRN (02:45)
[2017-02-02] MEDS ORDERED: PANTOPRAZOLE INJ 80 MG in SODIUM CHLORIDE 0.9% INJ 35 ML IV ONE (02:45)
[2017-02-02] MEDS ORDERED: OCTREOTIDE INJ 500 MCG in SODIUM CHLORID 0.9% 500 ML INJ 500 ML IV SCH (02:45)
[2017-02-02 02:53] LABS: AUTOMATED NEUTROPHIL # 5.1 TH/MM3 (1.8-7.7); BASOPHIL # 0.1 TH/MM3 (0-0.2); BASOPHIL % 1.1 % (0.0-2.0); EOSINOPHIL # 0.1 TH/MM3 (0-0.4); EOSINOPHIL % 1.4 % (0.0-4.0); LYMPH % 22.6 % (9.0-44.0); LYMPHOCYTE # 1.7 TH/MM3 (1.0-4.8); MEAN CELL VOLUME 89.2 FL (80.0-100.0); MEAN CORPUSCULAR HEMOGLOBIN 28.8 PG (27.0-34.0); MEAN CORPUSCULAR HGB CONC 32.3 % (32.0-36.0); MONO % 7.8 % (0.0-8.0); NEUT % 67.1 % (16.0-70.0); PLATELET COUNT 159 TH/MM3 (150-450); RED BLOOD COUNT 2.31 MIL/MM3 (4.50-5.90); RED CELL DISTRIBUTION WIDTH 18.3 % (11.6-17.2); WHITE BLOOD COUNT 7.6 TH/MM3 (4.0-11.0)
[2017-02-02 02:56] LABS: HEMO FLAGS DIFF FINAL
[2017-02-02 02:59] LABS: HEMATOCRIT 20.6 % (39.0-51.0)
[2017-02-02] MEDS ORDERED: SODIUM CHLOR 0.9% 250 ML INJ 250 ML IV ONE (03:00)
--- NOTE | 2017-02-02 03:00 | PD ---
HPI Chief Complaint: GI Complaint Time Seen by Provider: 02:21 Travel History International Travel<30 days: No Contact w/Intl Traveler<30days: No Traveled to known affect area: No History of Present Illness HPI The patient is 56 year old male who presents to the [facility] emergency department with a history of last night before going to bed noticing that his stool was darker than usual. He then awakened suddenly from sound sleep with the cough and nausea and threw up urine colored emesis. The patient's past medical history is significant for cirrhosis of the liver with portal hypertension and GI bleeds related to varices. He has had banding of his varices in the past. He has had multiple blood transfusions related to recurrent anemia. [facility] by [facility]. His primary care physician is Dr. Huerta. He last saw him earlier today. The patient reports that he last had a paracentesis done during his hospitalization at the beginning of December. He reports that he has had some abdominal distention and lower extremity edema. He reports that when he was last checked for possible paracentesis there was not enough fluid in his abdomen to drain. The patient reports feeling weak and lightheaded with standing. The patient denies having any known fevers, congestion, neck pain, chest pain, shortness of breath , diarrhea, urinary symptoms, or neurologic symptoms. [facility] Past Medical History Narrative Medical The patient's past medical history is significant for hepatitis C, cirrhosis of the liver, portal hypertension, history of GI bleeds with varices, hypertension , diabetes mellitus, diabetic neuropathy, hyperlipidemia, prior history of alcohol abuse. The patient quit drinking alcohol over 3 years ago. Hx Anticoagulant Therapy: Yes (ASA) Anxiety: No Depression: No Cancer: No Cardiovascular Problems: Yes High Cholesterol: Yes Diabetes: Yes Patient Takes Glucophage: Yes Diminished Hearing: No Endocrine: Yes Gastrointestinal Disorders: No Genitourinary: No Hepatitis: Yes (C) Hiatal Hernia: No Hypertension: Yes Immune Disorder: No Implanted Vascular Access Dvce: Yes Musculoskeletal: Yes (NEUROPATHY) Neurologic: Yes (DIABETIC NEUROPATHY) Psychiatric: No Reproductive: No Respiratory: No Immunizations Current: Yes Thyroid Disease: No Ulcer: Yes Tetanus Vaccination: > 5 Years Influenza Vaccination: No Past Surgical History Narrative Surgical The patient's past surgical history significant for an appendectomy, tonsillectomy, endoscopy, paracentesis, variceal banding ORIF of his tibia, history of right shoulder surgery. Abdominal Surgery: Yes (APPENDECTOMY PARENCENTESIS ACITES) Appendectomy: Yes Body Medical Devices: PLATE IN RIGHT SHOULDER Cardiac Surgery: No Ear Surgery: No Endocrine Surgery: No Eye Surgery: No Genitourinary Surgery: No Gynecologic Surgery: No Oral Surgery: No Pacemaker: No Thoracic Surgery: No Tonsillectomy: Yes Other Surgery: Yes (right clavical with metal, LIVER PARACENTESIS) Social History Alcohol Use: No Tobacco Use: No Substance Use: No Allergies-Medications (Allergen,Severity, Reaction): Coded Allergies: Neosporin (Verified Allergy, Mild, 02/02/17) Polysporin (Verified Allergy, Mild, RASH, 02/02/17) *MDRO Multi-Drug Resistant Organism (Verified Adverse Reaction, Unknown, ) ESBL E. coli (urine) - 12/15/16 Reported Meds & Prescriptions Reported Meds & Active Scripts Active [place] (Hydrocodone-Acetaminophen) 5-325 mg Tab 1 Tab PO TID PRN Propranolol (Propranolol HCl) 10 Mg Tab 10 Mg PO Q12HR Furosemide 20 Mg Tab 20 Mg PO DAILY [Spironolactone] 25 MG Tab 25 Mg PO BID@18 Pantoprazole (Pantoprazole Sodium) 40 Mg Tab 40 Mg PO DAILY Flomax (Tamsulosin HCl) 0.4 Mg Cap 0.8 Mg PO DAILY Xifaxan (Rifaximin) 550 Mg Tab 550 Mg PO BID Lactulose Liq (Lactulose) 10 Gm/15 Ml Soln 30 Ml PO TID Reported Tums (Calcium Carbonate (Antacid)) 500 Mg Chew 500 Mg CHEW DAILY PRN Lyrica (Pregabalin) 300 Mg Cap 300 Mg PO TID Buspirone (Buspirone HCl) 10 Mg Tab 10 Mg PO TID Baclofen 20 Mg Tab 20 Mg PO TID Review of Systems General / Constitutional: No: Fever Eyes: No: Visual changes HENT: Positive: Lightheadedness, No: Headaches, Congestion Cardiovascular: No: Chest Pain or Discomfort Respiratory: Positive: Cough, No: Shortness of Breath Gastrointestinal: Positive: Nausea, Vomiting, Hematemesis, Hematochezia, Changes in Bowel Habits, No: Diarrhea, Abdominal Pain, Indigestion, Loss of Appetite Genitourinary: No: Frequency, Dysuria Musculoskeletal: No: Pain Skin: No Rash Neurologic: Positive: Weakness, Dizziness, No: Focal Abnormalities, Change in Mentation, Slurred Speech, Sensory Disturbance Psychiatric: No: Depression Endocrine: No: Polydipsia Hematologic/Lymphatic: No: Easy Bruising Physical Exam Narrative General: The patient is a well-developed well-nourished male who on arrival is very does not have vomiting and throws up dark, coffee ground emesis. Head and Neck exam: Head is normocephalic atraumatic. Eyes: EOMI, pupils are equal round and reactive to light. The patient has bulbar conjunctival pallor. Nose: Midline septum with pink mucous membranes Mouth: Dentition unremarkable. Moist mucus membranes. Posterior oropharynx is not erythematous. No tonsillar hypertrophy. Uvula midline. Airway patent. Neck: No palpable lymphadenopathy. No nuchal rigidity. No thyromegaly. Cardiovascular: Regular rate and rhythm without murmurs, gallops, or rubs. Lungs: Clear to auscultation bilaterally. No wheezes, rhonchi, or rales. Abdomen: Soft, with mild distention, positive fluid wave, without tenderness to palpation in all 4 quadrants of the abdomen. No guarding, rebound, or rigidity. Negative [place] sign. No tenderness on palpation of McBurney's point. Normal bowel sounds are audible. Extremities: No clubbing or cyanosis. The patient has 1+ pitting edema bilateral lower extremities. 2+ pulses in all 4 extremities. No calf tenderness on palpation. Back: No costovertebral angle tenderness to palpation. Neurologic Exam: Grossly nonfocal. Skin Exam: No rash noted. Intact skin that is warm and dry. The patient is pale on examination. Data Data Last Documented VS Vital Signs Date Time Temp Pulse Resp B/P Pulse Ox O2 Delivery O2 Flow Rate FiO2 02/02/17 02:51 16 99 Room Air 02/02/17 02:20 98.3 77 115/68 Orders Electrocardiogram (02/02/17 ) Ondansetron Inj (Zofran Inj) (02/02/17 02:31) Complete Blood Count With Diff (02/02/17 02:32) Comprehensive Metabolic Panel (02/02/17 02:32) Lipase (02/02/17 02:32) Prothrombin Time / Inr (Pt) (02/02/17 02:32) Act Partial Throm Time (Ptt) (02/02/17 02:32) Alcohol (Ethanol) (02/02/17 02:32) Red Blood Cells (Rbc) (02/02/17 02:32) Chest, Single Ap (02/02/17 02:32) Ecg Monitoring (02/02/17 02:32) Iv Access Insert/Monitor (02/02/17 02:32) Oximetry (02/02/17 02:32) Ondansetron Inj (Zofran Inj) (02/02/17 02:45) Sodium Chlor 0.9% 1000 Ml Inj (Ns 1000 M (02/02/17 02:32) Sodium Chloride 0.9% Flush (Ns Flush) (02/02/17 02:45) Octreotide Inj (Sandostatin Inj) (02/02/17 02:45) Pantoprazole Inj (Protonix Inj) (02/02/17 02:45) Pantoprazole Inj (Protonix Inj) (02/02/17 02:45) Creatine Kinase (Cpk) (02/02/17 02:32) Ckmb (Isoenzyme) Profile (02/02/17 02:32) Troponin I (02/02/17 02:32) B-Type Natriuretic Peptide (02/02/17 02:32) Type And Screen (02/02/17 02:32) Octreotide Inj (Sandostatin Inj) (02/02/17 02:45) Blood Product Administration .UPON TRANSFUSION (02/02/17 03:00) Sodium Chlor 0.9% 250 Ml Inj (Ns 250 Ml (02/02/17 03:00) Admit Order (Ed Use Only) (02/02/17 03:04) Direct Bilirubin (02/02/17 02:40) Labs Laboratory Tests Test 02/02/17 02/02/17 02:40 02:47 White Blood Count 7.6 TH/MM3 Red Blood Count 2.31 MIL/MM3 Hemoglobin 6.6 GM/DL Hematocrit 20.6 % Mean Corpuscular Volume 89.2 FL Mean Corpuscular Hemoglobin 28.8 PG Mean Corpuscular Hemoglobin 32.3 % Concent Red Cell Distribution Width 18.3 % Platelet Count 159 TH/MM3 Mean Platelet Volume 10.4 FL Neutrophils (%) (Auto) 67.1 % Lymphocytes (%) (Auto) 22.6 % Monocytes (%) (Auto) 7.8 % Eosinophils (%) (Auto) 1.4 % Basophils (%) (Auto) 1.1 % Neutrophils # (Auto) 5.1 TH/MM3 Lymphocytes # (Auto) 1.7 TH/MM3 Monocytes # (Auto) 0.6 TH/MM3 Eosinophils # (Auto) 0.1 TH/MM3 Basophils # (Auto) 0.1 TH/MM3 CBC Comment DIFF FINAL Differential Comment Prothrombin Time 14.0 SEC Prothromb Time International 1.3 RATIO Ratio Activated Partial 25.8 SEC Thromboplast Time Sodium Level 136 MEQ/L Potassium Level 6.6 MEQ/L Chloride Level 100 MEQ/L Carbon Dioxide Level 27.6 MEQ/L Anion Gap 8 MEQ/L Blood Urea Nitrogen 38 MG/DL Creatinine 1.10 MG/DL Estimat Glomerular Filtration 69 ML/MIN Rate Random Glucose 307 MG/DL Calcium Level 8.4 MG/DL Total Bilirubin 1.3 MG/DL Direct Bilirubin 0.6 MG/DL Aspartate Amino Transf 66 U/L (AST/SGOT) Alanine Aminotransferase 48 U/L (ALT/SGPT) Alkaline Phosphatase 102 U/L Total Creatine Kinase 84 U/L Troponin I LESS THAN 0.02 NG/ML B-Type Natriuretic Peptide 73 PG/ML Total Protein 7.0 GM/DL Albumin 2.4 GM/DL Lipase 480 U/L Ethyl Alcohol Level 5 MG/DL Blood Type A POSITIVE Antibody Screen NEGATIVE Crossmatch Leukocyte-Reduced Red Blood Cells Blood Bank Comment Fibrinogen 133 mg/dL MDM Medical Decision Making Medical Screen Exam Complete: Yes Emergency Medical Condition: Yes Medical Record Reviewed: Yes Interpretation(s) Last Impressions Chest X-Ray 02/02/17 0232 Signed Impressions: Service Date/Time: Thursday, February 02, 2017 02:54 - CONCLUSION: Normal examination. The right clavicle has been previously fixated. Landon Fonseca MD Liver Ultrasound 02/02/17 0000 Signed Impressions: Service Date/Time: Thursday, February 02, 2017 09:32 - CONCLUSION: Abnormal ultrasound similar to prior examinations with hepatosplenomegaly, heterogeneous echotexture of the liver characteristic of cirrhosis, ascites, and sludge- filled gallbladder. Raad Pulido MD Abdomen Ultrasound 02/02/17 0000 Signed Impressions: Service Date/Time: Thursday, February 02, 2017 14:56 - CONCLUSION: Minimal, insufficient fluid for paracentesis. Raad Pulido MD Differential Diagnosis Variceal bleed, versus peptic ulcer related bleed, versus hematemesis from Yanci-Miller tear, versus hemorrhagic esophagitis. Narrative Course During the course of the patients emergency department visit, the patients history, examination, and differential diagnosis were reviewed with the patient. The patient had IV access obtained and blood work sent for analysis. The patient was pleasant compliance monitor with oximetry and blood pressure monitoring. An EKG was done on arrival. The patient had an EKG with a sinus rhythm heart rate of 76, no acute ST segment elevation or depression. The patient was typed and crossed for 4 units of packed red blood cells. The patient was initially provided Protonix 80 mg IV, followed by Protonix by drip, normal saline 1 L IV fluid bolus, Zofran 4 mg IV, octreotide 50 g IV followed by an octreotide drip. The patients laboratory studies were reviewed and remarkable for hemoglobin and came back at 6.6, hematocrit 20.6. 4 units of blood was ordered to be administered. CMP is remarkable for a potassium of 6.6, however hemolysis was noted, BUN 38, creatinine 1.10, glucose 307, AST 66, initial set of cardiac enzymes are negative. BNP 73, lipase 480, fibrinogen 133, PT 14, INR 1.3, PTT 25.8, alcohol level is 5 Radiology studies were reviewed and remarkable for a chest x-ray that reveals a normal examination with prior fixation of the right clavicle fracture. The patients results were discussed with the patient, including the plan of care. I explained that further testing and/ or monitoring is indicated based on the patients history, examination, and/ or laboratory findings. Therefore, I recommended admission for additional evaluation. The patient expressed understanding and was agreeable with this plan. The patient was admitted to the hospital in guarded condition and sent to a bed under the care of the flotation tank operator, Dr. Landrum. Critical Care Narrative Aggregate critical care time was 40 minutes. Time to perform other separately billable procedures was not included in the critical care time. My time did not include minutes spent treating any other patients simultaneously or on activities that did not directly contribute to the patient's treatment. The services I provided to this patient were to treat and/or prevent clinically significant deterioration that could result in: Respiratory failure from aspiration, versus fluid overload, versus cardiovascular collapse I provided critical care services requiring my management, as noted below: Chart data review, documentation time, medication orders and management, vital sign assessments/reviewing monitor data, ordering and reviewing lab tests, ordering and interpreting/reviewing x-rays and diagnostic studies, care of the patient and discussion of the patient with the admitting physicians. Physician Communication Physician Communication The patient's case was discussed with Dr. Landrum who did agree to admit the patient for further evaluation and treatment at this time. Diagnosis Primary Impression: GI bleed Qualified Code: K92.2 - Gastrointestinal hemorrhage, unspecified gastrointestinal hemorrhage type Admitting Information Admitting Physician Requests: Desiree Whatley MD Feb 02, 2017 02:59
[2017-02-02 03:04] LABS: APTT (PATIENT) 25.8 SEC (24.3-30.1); INTERNATIONAL NORMALIZED RATIO 1.3 RATIO
[2017-02-02] MEDS: PANTOPRAZOLE INJ 80 MG in SODIUM CHLORIDE 0.9% INJ 100 ML IV SCH ×3 (03:05→21:37)
[2017-02-02] MEDS ORDERED: ONDANSETRON HCL 4 MG/2 ML VIAL IV PRN (03:15)
[2017-02-02] MEDS ORDERED: CHLORHEXIDINE GLUCONATE 2 % 1 PACK (2 CLOTHS) TOP PRN (03:15)
[2017-02-02] MEDS ORDERED: BISACODYL 10 MG SUPP RECTAL PRN (03:15)
[2017-02-02] MEDS ORDERED: METOCLOPRAMIDE HCL 10 MG/2 ML VIAL IV PRN (03:15)
[2017-02-02] MEDS ORDERED: CALCIUM CARBONATE 500 MG CHEWABLE TAB CHEW PRN (03:15)
[2017-02-02] MEDS ORDERED: MISCELLANEOUS NURSING INFORMATION XX SCH (03:15)
[2017-02-02] MEDS ORDERED: SODIUM CHLORIDE 0.9% FLUSH 10 ML FLUSH PRN (03:15)
[2017-02-02] MEDS ORDERED: RESP: ALBUTEROL 2.5 MG/IPRATROPIUM 0.5 MG NEB (PRN) INH (03:15)
[2017-02-02] MEDS ORDERED: SENNOSIDES 8.6 MG TAB PO PRN (03:15)
[2017-02-02] MEDS ORDERED: PROCHLORPERAZINE 25 MG SUPP RECTAL PRN (03:15)
[2017-02-02] MEDS ORDERED: ZOLPIDEM TARTRATE 5 MG TAB PO PRN (03:15)
[2017-02-02] MEDS ORDERED: LORazepam 2 MG/ML VIAL IV PRN (03:15)
[2017-02-02] MEDS ORDERED: LACTULOSE SYRUP 20 GM/30 ML CUP PO PRN (03:15)
[2017-02-02] MEDS ORDERED: ACETAMINOPHEN 325 MG TAB PO PRN (03:15)
[2017-02-02] MEDS ORDERED: MAGNESIUM HYDROXIDE SUSP 30 ML CUP PO PRN (03:15)
--- NOTE | 2017-02-02 03:19 | RADRPT ---
EXAM DATE/TIME: 02/02/2017 02:54 [facility] COMPARISON: CHEST SINGLE AP, December 17, 2016, 12:09. INDICATIONS : Chest pain and vomiting. MEDICAL HISTORY : Hypertension. Diabetes mellitus type II. Hepatitis C. SURGICAL HISTORY : Appendectomy. Right clavicle ORIF. ENCOUNTER: Initial ACUITY: 1 day PAIN SCORE: 7/10 LOCATION: Bilateral chest FINDINGS: A single view of the chest demonstrates the lungs to be symmetrically aerated without evidence of mas s, infiltrate or effusion. The cardiomediastinal contours are unremarkable. Osseous structures are intact. CONCLUSION: Normal examination. The right clavicle has been previously fixated. Landon Fonseca MD on February 02, 2017 at 3:18 Board Certified Radiologist. This report was verified electronically.
[2017-02-02 03:30] LABS: ALKALINE PHOSPHATASE 102 U/L (45-117); ALT (GPT) 48 U/L (12-78); ANION GAP 8 MEQ/L (5-15); AST (GOT) 66 U/L (15-37); BICARBONATE 27.6 MEQ/L (21.0-32.0); BLOOD UREA NITROGEN 38 MG/DL (7-18); CHLORIDE 100 MEQ/L (98-107); GLOMERULAR FILTRATION RATE 69 ML/MIN (>89); SODIUM (NA) 136 MEQ/L (136-145); TOTAL BILIRUBIN ADULT 1.3 MG/DL (0.2-1.0)
[2017-02-02 03:31] LABS: CREATINE KINASE 84 U/L (39-308)
[2017-02-02 03:35] LABS: POTASSIUM 6.6 MEQ/L (3.5-5.1)
[2017-02-02] MEDS: CHLORHEXIDINE GLUCONATE 2 % 1 PACK (2 CLOTHS) TOP SCH (04:00)
--- NOTE | 2017-02-02 04:04 | HHI.HP ---
[facility] Service Critical Care Medicine Primary Care Physician Long Huerta, DO Admission Diagnosis GI Bleed Diagnosis: Travel History International Travel<30 Days: No Contact w/Intl Traveler <30 Da: No Traveled to Known Affected Are: No History of Present Illness 56 year old male with multiple prior admissions due to GI bleed, history of hepatitis C and liver cirrhosis who presents to the [facility] emergency department with a history of last night before going to bed noticing that his stool was darker than usual. He then awakened suddenly from sound sleep with the cough and nausea and threw up urine colored emesis. The patient's past medical history is significant for cirrhosis of the liver with portal hypertension and GI bleeds related to varices. He has had banding of his varices in the past. He has had multiple blood transfusions related to recurrent anemia. He is followed by the [facility]. His primary care physician is Dr. Huerta. He last saw him earlier today. The patient reports that he last had a paracentesis done during his hospitalization at the beginning of December. He reports that he has had some abdominal distention and lower extremity edema. He reports that when he was last checked for possible paracentesis there was not enough fluid in his abdomen to drain. The patient reports feeling weak and lightheaded with standing. The patient denies having any known fevers, congestion, neck pain, chest pain, shortness of breath , diarrhea, urinary symptoms, or neurologic symptoms. Review of Systems Constitutional: DENIES: Diaphoretic episodes, Fatigue, Fever, Weight gain, Weight loss, Chills, Dizziness, Change in appetite, Night Sweats Endocrine: DENIES: Heat/cold intolerance, Polydipsia, Polyuria, Polyphagia Eyes: DENIES: Blurred vision, Diplopia, Eye inflammation, Eye pain, Vision loss , Photosensitivity, Double Vision Ears, nose, mouth, throat: DENIES: Tinnitus, Hearing loss, Vertigo, Nasal discharge, Oral lesions, Throat pain, Hoarseness, Ear Pain, Running Nose, Epistaxis, Sinus Pain, Toothache, Odynophagia Respiratory: DENIES: Apneas, Cough, Snoring, Wheezing, Hemoptysis, Sputum production, Shortness of breath Cardiovascular: DENIES: Chest pain, Palpitations, Syncope, Dyspnea on Exertion , PND, Lower Extremity Edema, Orthopnea, Claudication Gastrointestinal: COMPLAINS OF: Black stools, Bloody stools, DENIES: Abdominal pain, Constipation, Diarrhea, Nausea, Vomiting, Difficulty Swallowing , Anorexia Genitourinary: DENIES: Sexual dysfunction, Urinary frequency, Urinary incontinence, Urgency, Hematuria, Dysuria, Nocturia, Penile Discharge, Testicular Pain, Testicular Swelling Musculoskeletal: DENIES: Joint pain, Muscle aches, Stiffness, Joint Swelling, Back pain, Neck pain Integumentary: DENIES: Abnormal pigmentation, Nail changes, Pruritus, Rash Hematologic/lymphatic: DENIES: Bruising, Lymphadenopathy Immunologic/allergic: DENIES: Eczema, Urticaria Neurologic: DENIES: Abnormal gait, Headache, Localized weakness, Paresthesias, Seizures, Speech Problems, Tremor, Poor Balance Psychiatric: DENIES: Anxiety, Confusion, Mood changes, Depression, Hallucinations, Agitation, Suicidal Ideation, Homicidal Ideation, Delusions Past Family Social History Allergies: Coded Allergies: Neosporin (Verified Allergy, Mild, 02/02/17) Polysporin (Verified Allergy, Mild, RASH, 02/02/17) *MDRO Multi-Drug Resistant Organism (Verified Adverse Reaction, Unknown, ) ESBL E. coli (urine) - 12/15/16 Past Medical History Hypertension Liver cirrhosis Hepatitis C Dyslipidemia Diabetes mellitus Diabetic neuropathy History of portal vein thrombosis Prior history of alcohol abuse Chronic back pain Degenerative disc disease History of ascites treated with paracentesis in the past Past Surgical History Paracentesis Reported Medications Reported Meds & Active Scripts Active [place] (Hydrocodone-Acetaminophen) 5-325 mg Tab 1 Tab PO TID PRN Propranolol (Propranolol HCl) 10 Mg Tab 10 Mg PO Q12HR Furosemide 20 Mg Tab 20 Mg PO DAILY [Spironolactone] 25 MG Tab 25 Mg PO BID@18 Pantoprazole (Pantoprazole Sodium) 40 Mg Tab 40 Mg PO DAILY Flomax (Tamsulosin HCl) 0.4 Mg Cap 0.8 Mg PO DAILY Xifaxan (Rifaximin) 550 Mg Tab 550 Mg PO BID Lactulose Liq (Lactulose) 10 Gm/15 Ml Soln 30 Ml PO TID Reported Tums (Calcium Carbonate (Antacid)) 500 Mg Chew 500 Mg CHEW DAILY PRN Lyrica (Pregabalin) 300 Mg Cap 300 Mg PO TID Buspirone (Buspirone HCl) 10 Mg Tab 10 Mg PO TID Baclofen 20 Mg Tab 20 Mg PO TID Active Ordered Medications Current Medications Medications (Trade) Dose Ordered Sig/Jez Route PRN Reason Start Time Stop Time Status Last Admin Dose Admin Octreotide Acetate 500 mcg/ Sodium Chloride 500.5 ml @ 50 mls/hr Q10H IV 02/02/17 02:45 02/02/17 03:06 Pantoprazole Sodium 80 mg/ Sodium Chloride 100 ml @ 10 mls/hr Q10H IV 02/02/17 02:45 02/02/17 03:05 Sodium Chloride (NS 250 ml Inj) 250 ml @ 15 mls/hr ONCE ONCE IV 02/02/17 03:00 02/02/17 19:39 Baclofen (Lioresal) 20 mg TID PO 02/02/17 09:00 Buspirone HCl (Buspar) 10 mg TID PO 02/02/17 09:00 Calcium Carbonate (Tums Chew) 500 mg DAILY PRN CHEW HEARTBURN 02/02/17 03:15 Furosemide (Lasix) 20 mg DAILY PO 02/02/17 09:00 Acetaminophen/ Hydrocodone Bitart ([place] 5-325 Mg) 1 tab TID PRN PO PAIN 02/02/17 03:15 Lactulose (Lactulose Liq) 30 ml TID PO 02/02/17 09:00 Propranolol HCl (Inderal) 10 mg Q12HR PO 02/02/17 09:00 Rifaximin (Xifaxan) 550 mg BID PO 02/02/17 09:00 Tamsulosin HCl (Flomax) 0.8 mg DAILY PO 02/02/17 09:00 Pregabalin (Lyrica) 300 mg TID PO 02/02/17 09:00 Spironolactone 25 mg 25 mg BID@09,18 PO 02/02/17 09:00 Sodium Chloride (NS 1000 ml Inj) 1,000 ml @ 84 mls/hr [id number] IV 02/02/17 03:07 Sodium Chloride (NS Flush) 2 ml UNSCH PRN .XX FLUSH AFTER USING IV ACCESS 02/02/17 03:15 Sodium Chloride (NS Flush) 2 ml BID .XX 02/02/17 09:00 Acetaminophen (Tylenol) 650 mg Q6H PRN PO FEVER >101F 02/02/17 03:15 Morphine Sulfate (Morphine Inj) 2 mg Q2H PRN IV PAIN SCALE 6 TO 10 02/02/17 03:15 Pantoprazole Sodium (Protonix Inj) 40 mg BID IV 02/02/17 09:00 Lorazepam (Ativan Inj) 2 mg Q4H PRN IV Agitation/Sedation 02/02/17 03:15 Ondansetron HCl (Zofran Inj) 4 mg Q6H PRN IV NAUSEA OR VOMITING 02/02/17 03:15 Metoclopramide HCl (Reglan Inj) 10 mg Q6H PRN IV NAUSEA OR VOMITING 02/02/17 03:15 Prochlorperazine (Compazine Supp) 25 mg Q12H PRN RECTAL NAUSEA OR VOMITING 02/02/17 03:15 Zolpidem Tartrate (Ambien) 5 mg HS PRN PO INSOMNIA 02/02/17 03:15 Miscellaneous Information 1 Q361D XX 02/02/17 03:15 Chlorhexidine Gluconate (Chlorhexidine 2% Cloth) 3 pack Taper DAILY@04 TOP 02/02/17 04:00 01/29/18 03:59 Chlorhexidine Gluconate (Chlorhexidine 2% Cloth) 3 pack UNSCH PRN TOP HYGIENIC CARE 02/02/17 03:15 Senna/Docusate Sodium (Sarahi-Colace) 1 tab BID PO 02/02/17 09:00 Magnesium Hydroxide (Milk Of Magnesia Liq) 30 ml Q12H PRN PO MILD - MODERATE CONSTIPATION 02/02/17 03:15 Sennosides (Senokot) 17.2 mg Q12H PRN PO MODERATE - SEVERE CONSTIPATION 02/02/17 03:15 Bisacodyl (Dulcolax Supp) 10 mg DAILY PRN RECTAL SEVERE CONSITIPATION 02/02/17 03:15 Lactulose 30 ml 30 ml DAILY PRN PO SEVERE CONSITIPATION 02/02/17 03:15 Octreotide Acetate/Sodium Chloride (SandoSTATIN INJ/ NS 500 ml Inj) 500.0 ml @ 25 mls/hr Q20H IV 02/02/17 05:15 Family History Noncontributory Social History Remote history of alcohol and illicit drug abuse denies current use. No tobacco abuse per patient Physical Exam Vital Signs Vital Signs Date Time Temp Pulse Resp B/P Pulse Ox O2 Delivery O2 Flow Rate FiO2 02/02/17 02:51 16 99 Room Air 02/02/17 02:22 16 6/6/17 02:20 98.3 77 16 115/68 98 Physical Exam GENERAL: Well-nourished, well-developed patient. SKIN: Warm and dry. HEAD: Normocephalic. EYES: No scleral icterus. No injection or drainage. NECK: Supple, trachea midline. No JVD or lymphadenopathy. CARDIOVASCULAR: Regular rate and rhythm without murmurs, gallops, or rubs. RESPIRATORY: Breath sounds equal bilaterally. No accessory muscle use. GASTROINTESTINAL: Abdomen soft, non-tender, nondistended. MUSCULOSKELETAL: No cyanosis, or edema. BACK: Nontender without obvious deformity. No CVA tenderness. EXTREMITIES: No clubbing cyanosis or edema Laboratory Laboratory Tests Test 02/02/17 02/02/17 02:40 02:47 White Blood Count 7.6 Red Blood Count 2.31 Hemoglobin 6.6 Hematocrit 20.6 Mean Corpuscular Volume 89.2 Mean Corpuscular Hemoglobin 28.8 Mean Corpuscular Hemoglobin 32.3 Concent Red Cell Distribution Width 18.3 Platelet Count 159 Mean Platelet Volume 10.4 Neutrophils (%) (Auto) 67.1 Lymphocytes (%) (Auto) 22.6 Monocytes (%) (Auto) 7.8 Eosinophils (%) (Auto) 1.4 Basophils (%) (Auto) 1.1 Neutrophils # (Auto) 5.1 Lymphocytes # (Auto) 1.7 Monocytes # (Auto) 0.6 Eosinophils # (Auto) 0.1 Basophils # (Auto) 0.1 CBC Comment DIFF FINAL Differential Comment Prothrombin Time 14.0 Prothromb Time International 1.3 Ratio Activated Partial 25.8 Thromboplast Time Sodium Level 136 Potassium Level 6.6 Chloride Level 100 Carbon Dioxide Level 27.6 Anion Gap 8 Blood Urea Nitrogen 38 Creatinine 1.10 Estimat Glomerular Filtration 69 Rate Random Glucose 307 Calcium Level 8.4 Total Bilirubin 1.3 Direct Bilirubin 0.6 Aspartate Amino Transf 66 (AST/SGOT) Alanine Aminotransferase 48 (ALT/SGPT) Alkaline Phosphatase 102 Total Creatine Kinase 84 Troponin I LESS THAN 0.02 B-Type Natriuretic Peptide 73 Total Protein 7.0 Albumin 2.4 Lipase 480 Ethyl Alcohol Level 5 Blood Type A POSITIVE Antibody Screen NEGATIVE Crossmatch Leukocyte-Reduced Red Blood Cells Blood Bank Comment Fibrinogen 133 Result Diagram: 02/02/1723902/02/17 024 Imaging Last 24 hours Impressions Chest X-Ray 02/02/17 0232 Signed Impressions: Service Date/Time: Thursday, February 02, 2017 02:54 - CONCLUSION: Normal examination. The right clavicle has been previously fixated. Landon Fonseca MD Assessment and Plan Assessment and Plan Upper GI bleed - Portal hypertension - Due to liver cirrhosis - Hepatitis C - IV fluid resuscitation - Blood transfusion - Octreotide drip - Protonix 40 IV twice a day - FFP's - GI consult Anemia - Due to above - Serial H&H - Transfuse to keep hemoglobin above 7 Coagulopathy - Underlying liver disease - Transfuse 2 units of FFP's Diabetes mellitus - Insulin sliding scale Hypertension - Currently normotensive - Hold all antihypertensive medications due to active GI bleed DVT GI prophylaxis - Teds SCDs - Protonix drip - No pharmacal DVT prophylaxis due to active GI bleed Critical Care: The total critical care time was 35 minutes. Time to perform other separately billable procedures was not included in the critical care time. Patricio Landrum MD Feb 02, 2017 04:04
[2017-02-02] MEDS ORDERED: GLUCAGON 1 MG/ML VIAL OTHER PRN (05:00)
[2017-02-02] MEDS ORDERED: DEXTROSE 50% IN WATER 50 ML VIAL(D50) IV PRN (05:00)
[2017-02-02] MEDS: OCTREOTIDE INJ 500 MCG in SODIUM CHLORID 0.9% 500 ML INJ 499.5 ML IV SCH ×2 (06:00→21:37)
[2017-02-02] MEDS ORDERED: INSULIN ASPART SUPPLEMENTAL SCALE SQ SCH (07:00)
[2017-02-02] MEDS ORDERED: INSULIN HUMAN REGULAR 1,000 UNITS/10 ML VIAL IV PUSH ONE (07:30)
[2017-02-02] MEDS ORDERED: SODIUM BICARBONATE 8.4% INJ 50 MEQ/50 ML SYR IV PUSH ONE (07:30)
[2017-02-02] MEDS ORDERED: SODIUM POLYSTYRENE SULFONATE SUSP 15 GM/60 ML CUP PO ONE (07:30)
[2017-02-02] MEDS ORDERED: CALCIUM GLUCONATE INJ 1 GM in SODIUM CHLORIDE 0.9% INJ 100 ML IV ONE (08:00)
[2017-02-02] MEDS: PREGABALIN 75 MG CAP PO SCH ×3 (08:56→18:25)
[2017-02-02] MEDS: TAMSULOSIN HCL 0.4 MG CAP PO SCH (08:56)
[2017-02-02] MEDS: RIFAXIMIN 550 MG TAB PO SCH ×2 (08:56→19:35)
[2017-02-02] MEDS: cefTRIAXone INJ 1,000 MG in SODIUM CHLORIDE 0.9% INJ 100 ML IV SCH (08:56)
[2017-02-02] MEDS: DOCUSATE SODIUM 50 MG/SENNA 8.6 MG TAB PO SCH ×2 (08:57→19:35)
[2017-02-02] MEDS: PANTOPRAZOLE SODIUM 40 MG VIAL IV SCH ×2 (08:57→19:34)
[2017-02-02] MEDS: busPIRone HCL 10 MG TAB PO SCH ×3 (08:57→18:25)
[2017-02-02] MEDS: LACTULOSE SYRUP 20 GM/30 ML CUP PO SCH ×3 (08:58→18:24)
[2017-02-02] MEDS: PROPRANOLOL HCL 10 MG TAB PO SCH ×2 (08:58→20:40)
[2017-02-02] MEDS: SODIUM CHLORIDE 0.9% FLUSH 10 ML FLUSH SCH ×2 (08:58→19:35)
[2017-02-02] MEDS ORDERED: SPIRONOLACTONE 25 MG TAB PO SCH (09:00)
[2017-02-02] MEDS: ACETAMINOPHEN/HYDROcodone 325 MG/5 MG TAB PO PRN (09:00)
[2017-02-02] MEDS ORDERED: FUROSEMIDE 20 MG TAB PO SCH (09:00)
[2017-02-02] MEDS: BACLOFEN 20 MG TAB PO SCH ×3 (10:44→18:25)
--- NOTE | 2017-02-02 11:21 | RADRPT ---
EXAM DATE/TIME: 02/02/2017 09:32 [facility] COMPARISON: US LIVER VASCULATURE-COMPLETE, October 24, 2016, 21:00. US ABDOMEN - COMPLETE, December 18, 2016, 8:50 . INDICATIONS : Increased labs. MEDICAL HISTORY : Hypercholesterolemia. Hypertension. Hepatitis C. Neuropathy. Ulcer. Diabetes. Melena. Chicken pox. SURGICAL HISTORY : Tonsillectomy. Appendectomy. Right clavicular metal plate. Blood transfusion. ENCOUNTER: Subsequent ACUITY: 2 days PAIN SCORE: 9/10 LOCATION: Bilateral abdomen. MEASUREMENTS: LIVER: 17.0 cm length COMMON DUCT: 8 mm RIGHT KIDNEY: 13.4 x 5.6 x 6.7 cm SPLEEN: 17.4 cm length FINDINGS: Moderate amount of ascites in the upper abdomen. LIVER: Heterogeneous echotexture without measurable mass. The configuration and appearance is similar to pr ior ultrasound exams. Hepatopedal flow was seen in the portal vein. COMMON DUCT: No intraluminal mass or stone visualized. GALLBLADDER: Mild distention and heterogeneous echogenic sludge without shadowing. Gallbladder wall measures 2 mm in thickness. No pericholecystic fluid. Negative sonographic Vance's sign. PANCREAS: The pancreas is prominent and has a homogeneous hyperechogenicity. RIGHT KIDNEY: No hydronephrosis, stone or mass. SPLEEN: No focal lesion. CONCLUSION: Abnormal ultrasound similar to prior examinations with hepatosplenomegaly, heterogeneous echotexture of the liver characteristic of cirrhosis, ascites, and sludge-filled gallbladder. Raad Pulido MD on February 02, 2017 at 11:07 Board Certified Radiologist. This report was verified electronically.
--- NOTE | 2017-02-02 11:55 | PD.CONS ---
HPI History of Present Illness This is a 56 year old [male] with cirrhosis, portal HTN, varices, and recent hx GIB, known to us, who presented to ER for n/v, maroon and black. He threw up last night and then once in the ambulance and also when he got here. He says the emesis turned brighter red and that he felt less distended after vomiting. He went to get "checked out" for paracentesis a week ago and it couldn't be done and was told to reschedule so he was scheduled for few days later and there was insufficient fluid to drain,but he felt very distended and was having swelling in feet and hands too. He denies any ETOH in the last 5 years. Pt is poor historian. (Carissa Zhu) PFSH Past Medical History HTN DM esphageal varices gatritis hemorrhoids cirrhosis hep C tx naive portal vein thrombosis hyperlipdemia diabetic neuropathy Past Surgical History appendectomy, right shoulder surgery tonsillectomy EGD/colonoscopy nasal surgery ORIF tibia (Carissa Zhu) Coded Allergies: Neosporin (Verified Allergy, Mild, 02/02/17) Polysporin (Verified Allergy, Mild, RASH, 02/02/17) *MDRO Multi-Drug Resistant Organism (Verified Adverse Reaction, Unknown, ) ESBL E. coli (urine) - 12/15/16 Family History unk Social History denies ETOH in 5 years occasional cigarettes no drugs (Carissa Zhu) Review of Systems Constitutional: DENIES: Diaphoretic episodes Eyes: DENIES: Blurred vision Ears, nose, mouth, throat: DENIES: Hearing loss Respiratory: DENIES: Hemoptysis Cardiovascular: DENIES: Chest pain Gastrointestinal: COMPLAINS OF: Nausea, Vomiting, Swelling of Abdomen, Hematemesis, DENIES: Abdominal pain, Black stools, Bloody stools, Constipation , Diarrhea Genitourinary: DENIES: Hematuria Musculoskeletal: DENIES: Muscle aches Integumentary: DENIES: Jaundice Hematologic/lymphatic: DENIES: Bruising Neurologic: DENIES: Headache Psychiatric: DENIES: Confusion (Carissa Zhu) GI Exam Vitals I&O Vital Signs Date Time Temp Pulse Resp B/P Pulse Ox O2 Delivery O2 Flow Rate FiO2 02/02/17 10:40 97.4 76 16 114/64 100 02/02/17 10:12 14 02/02/17 10:12 14 02/02/17 10:00 66 02/02/17 08:00 98.4 69 18 97/58 100 02/02/17 08:00 69 02/02/17 06:55 98.3 68 12 88/54 100 02/02/17 06:00 74 02/02/17 05:52 97.9 68 20 93/59 100 02/02/17 05:30 97.7 83 20 89/58 95 Nasal Cannula 2 02/02/17 05:15 97.6 71 18 93/53 100 Room Air 02/02/17 04:48 78 16 112/69 100 Room Air 02/02/17 02:51 16 99 Room Air 02/02/17 02:22 16 02/02/17 02:20 98.3 77 16 115/68 98 Imaging Last Impressions Chest X-Ray 02/02/17 0232 Signed Impressions: Service Date/Time: Thursday, February 02, 2017 02:54 - CONCLUSION: Normal examination. The right clavicle has been previously fixated. Landon Fonseca MD Liver Ultrasound 02/02/17 0000 Signed Impressions: Service Date/Time: Thursday, February 02, 2017 09:32 - CONCLUSION: Abnormal ultrasound similar to prior examinations with hepatosplenomegaly, heterogeneous echotexture of the liver characteristic of cirrhosis, ascites, and sludge- filled gallbladder. Raad Pulido MD Laboratory Test 02/02/17 02/02/17 02/02/17 02:40 02:47 04:49 White Blood Count 7.6 TH/MM3 Red Blood Count 2.31 MIL/MM3 Hemoglobin 6.6 GM/DL Hematocrit 20.6 % Mean Corpuscular Volume 89.2 FL Mean Corpuscular Hemoglobin 28.8 PG Mean Corpuscular Hemoglobin 32.3 % Concent Red Cell Distribution Width 18.3 % Platelet Count 159 TH/MM3 Mean Platelet Volume 10.4 FL Neutrophils (%) (Auto) 67.1 % Lymphocytes (%) (Auto) 22.6 % Monocytes (%) (Auto) 7.8 % Eosinophils (%) (Auto) 1.4 % Basophils (%) (Auto) 1.1 % Neutrophils # (Auto) 5.1 TH/MM3 Lymphocytes # (Auto) 1.7 TH/MM3 Monocytes # (Auto) 0.6 TH/MM3 Eosinophils # (Auto) 0.1 TH/MM3 Basophils # (Auto) 0.1 TH/MM3 CBC Comment DIFF FINAL Differential Comment Prothrombin Time 14.0 SEC Prothromb Time International 1.3 RATIO Ratio Activated Partial 25.8 SEC Thromboplast Time Sodium Level 136 MEQ/L Potassium Level 6.6 MEQ/L Chloride Level 100 MEQ/L Carbon Dioxide Level 27.6 MEQ/L Anion Gap 8 MEQ/L Blood Urea Nitrogen 38 MG/DL Creatinine 1.10 MG/DL Estimat Glomerular Filtration 69 ML/MIN Rate Random Glucose 307 MG/DL Calcium Level 8.4 MG/DL Total Bilirubin 1.3 MG/DL Direct Bilirubin 0.6 MG/DL Aspartate Amino Transf 66 U/L (AST/SGOT) Alanine Aminotransferase 48 U/L (ALT/SGPT) Alkaline Phosphatase 102 U/L Total Creatine Kinase 84 U/L Troponin I LESS THAN 0.02 NG/ML B-Type Natriuretic Peptide 73 PG/ML Total Protein 7.0 GM/DL Albumin 2.4 GM/DL Lipase 480 U/L Ethyl Alcohol Level 5 MG/DL Blood Type A POSITIVE Antibody Screen NEGATIVE Crossmatch Leukocyte-Reduced Red Blood Cells Blood Bank Comment Fibrinogen 133 mg/dL Physical Examination HEENT: normocephalic; atraumatic; no jaundice. CHEST: CTA CARDIAC: RRR ABDOMEN: Soft, mildly distended, nontender; bowel sounds are present in all four quadrants. EXTREMITIES: No clubbing, cyanosis, or edema. SKIN: pallor, no rash; no jaundice. INDUSTRIAL CUSTODIAN: No focal deficits; alert and oriented times three. (Carsisa Zhu) Assessment and Plan Plan ASSESSMENT - GIB, hematemesis - emesis with dark blood and black material, onset last night and became brighter red. Hx cirrhosis, portal HTN, varices, recent GIB. - anemia - 6.6 on admission, receiving blood now. 2/2 above - abdominal distension - cirrhosis. per pt recently evaluated and insuff fluid for drainage PLAN - EGD tomorrow - obtain consents - NPO - monitor HH - transfuse PRN - continue rifaximin - continue lactulose - supportive care (Carissa Zhu) Physician Comments Seen and examined with Carissa, plan as above, will proceed with EGD in AM. Further recommendations to follow. (Teri Noguera MD) Carissa Zhu Feb 02, 2017 11:55 Teri Noguera MD Feb 02, 2017 17:20
[2017-02-02] MEDS: INSULIN ASPART SUPPLEMENTAL SCALE SQ SCH ×2 (12:47→18:26)
[2017-02-02] MEDS: MORPHINE SULFATE 4 MG/ML INJ IV PRN ×2 (12:49→19:35)
[2017-02-02] MEDS: SODIUM CHLOR 0.9% 1000 ML INJ 1,000 ML IV SCH (15:02)
--- NOTE | 2017-02-02 15:51 | RADRPT ---
EXAM DATE/TIME: 02/02/2017 14:56 [facility] COMPARISON: US ABDOMEN - LOWER LIMITED, January 27, 2017, 10:32. INDICATIONS : Ascites. MEDICAL HISTORY : Hypercholesterolemia. Hypertension. Hepatitis C. Ulcer. SURGICAL HISTORY : Tonsillectomy. Appendectomy. ENCOUNTER: Subsequent ACUITY: 1 day PAIN SCORE: 2/10 LOCATION: Abdomen. FINDINGS: Imaging of the abdomen and pelvis was performed to evaluate for ascites for possible paracentesis. N o significant ascites seen. No marking made. CONCLUSION: Minimal, insufficient fluid for paracentesis. Raad Pulido MD on February 02, 2017 at 15:48 Board Certified Radiologist. This report was verified electronically.
[2017-02-02 19:38] LABS: HEMATOCRIT 22.7 % (39.0-51.0)
[2017-02-02 19:51] LABS: REVIEW FLAG FINAL
--- NOTE | 2017-02-02 22:25 | EKG ---
Date Performed: 02/02/2017 Time Performed: 02:22:00 PTAGE: 56 years EKG: Sinus rhythm Since previous tracing, no significant change noted NORMAL ECG PREVIOUS TRACING : 01/01/2017 22.05.54 DOCTOR: Vasyl Boyer Interpretating Date/Time 02/02/2017 22:24:06
[2017-02-03] VITALS (23 sets, daily range): BP systolic 82–183; BP diastolic 48–83; PULSE 58–76; RESP 7–20; TEMP 98–98.9; O2SAT 96–100
[2017-02-03] MEDS: INSULIN ASPART SUPPLEMENTAL SCALE SQ SCH ×4 (01:00→18:59)
[2017-02-03] MEDS: SODIUM CHLOR 0.9% 1000 ML INJ 1,000 ML IV SCH ×2 (01:27→14:52)
[2017-02-03 03:46] LABS: AUTOMATED NEUTROPHIL # 2.2 TH/MM3 (1.8-7.7); BASOPHIL % 1.1 % (0.0-2.0); EOSINOPHIL # 0.1 TH/MM3 (0-0.4); EOSINOPHIL % 2.5 % (0.0-4.0); LYMPH % 28.7 % (9.0-44.0); LYMPHOCYTE # 1.1 TH/MM3 (1.0-4.8); MEAN CELL VOLUME 85.8 FL (80.0-100.0); MONO % 9.6 % (0.0-8.0); NEUT % 58.1 % (16.0-70.0); PLATELET COUNT 76 TH/MM3 (150-450); RED BLOOD COUNT 2.24 MIL/MM3 (4.50-5.90); RED CELL DISTRIBUTION WIDTH 16.3 % (11.6-17.2); WHITE BLOOD COUNT 3.9 TH/MM3 (4.0-11.0)
[2017-02-03 03:54] LABS: HEMO FLAGS AUTO DIFF
[2017-02-03 03:56] LABS: HEMATOCRIT 19.2 % (39.0-51.0)
[2017-02-03 03:58] LABS: INTERNATIONAL NORMALIZED RATIO 1.3 RATIO; PROTHROMBIN TIME - PATIENT 14.3 SEC (9.8-11.6)
[2017-02-03] MEDS: CHLORHEXIDINE GLUCONATE 2 % 1 PACK (2 CLOTHS) TOP SCH (04:00)
[2017-02-03] MEDS ORDERED: SODIUM CHLOR 0.9% 250 ML INJ 250 ML IV ONE ×2 (04:15→13:30)
[2017-02-03 04:17] LABS: PLATELET ESTIMATE SMEAR LOW (NORMAL); PLATELET MORPHOLOGY NORMAL (NORMAL); SCAN/DIFF AUTO DIFF CONFIRMED
[2017-02-03 04:18] LABS: ALKALINE PHOSPHATASE 70 U/L (45-117); ALT (GPT) 72 U/L (12-78); ANION GAP 7 MEQ/L (5-15); AST (GOT) 158 U/L (15-37); BICARBONATE 29.2 MEQ/L (21.0-32.0); BLOOD UREA NITROGEN 45 MG/DL (7-18); CHLORIDE 107 MEQ/L (98-107); GLOMERULAR FILTRATION RATE 78 ML/MIN (>89); MAGNESIUM 1.6 MG/DL (1.5-2.5); SODIUM (NA) 143 MEQ/L (136-145); TOTAL BILIRUBIN ADULT 1.1 MG/DL (0.2-1.0)
[2017-02-03] MEDS: ACETAMINOPHEN/HYDROcodone 325 MG/5 MG TAB PO PRN (05:52)
[2017-02-03] MEDS: PANTOPRAZOLE INJ 80 MG in SODIUM CHLORIDE 0.9% INJ 100 ML IV SCH (05:52)
[2017-02-03] MEDS: SODIUM CHLORIDE 0.9% FLUSH 10 ML FLUSH SCH ×2 (09:00→21:24)
[2017-02-03] MEDS: PANTOPRAZOLE SODIUM 40 MG VIAL IV SCH ×2 (09:00→21:25)
[2017-02-03] MEDS: MORPHINE SULFATE 4 MG/ML INJ IV PRN ×2 (09:30→13:59)
[2017-02-03] MEDS: cefTRIAXone INJ 1,000 MG in SODIUM CHLORIDE 0.9% INJ 100 ML IV SCH (09:58)
[2017-02-03] MEDS: PREGABALIN 75 MG CAP PO SCH ×3 (10:03→18:53)
[2017-02-03] MEDS: LACTULOSE SYRUP 20 GM/30 ML CUP PO SCH ×3 (10:03→18:53)
[2017-02-03] MEDS: BACLOFEN 20 MG TAB PO SCH ×3 (10:03→18:53)
[2017-02-03] MEDS: RIFAXIMIN 550 MG TAB PO SCH ×2 (10:03→21:25)
[2017-02-03] MEDS: busPIRone HCL 10 MG TAB PO SCH ×3 (10:04→18:53)
[2017-02-03] MEDS: TAMSULOSIN HCL 0.4 MG CAP PO SCH (10:04)
[2017-02-03] MEDS: DOCUSATE SODIUM 50 MG/SENNA 8.6 MG TAB PO SCH ×2 (10:05→21:25)
[2017-02-03] MEDS: PROPRANOLOL HCL 10 MG TAB PO SCH ×2 (10:08→21:25)
[2017-02-03] MEDS ORDERED: SODIUM CHLOR 0.9% 250 ML INJ 500 ML IV ONE (16:00)
[2017-02-03] MEDS ORDERED: ONDANSETRON HCL 4 MG/2 ML VIAL IV PUSH ONE (16:00)
[2017-02-03 16:04] LABS: HEMATOCRIT 23.9 % (39.0-51.0)
[2017-02-03 16:05] LABS: REVIEW FLAG FINAL
--- NOTE | 2017-02-03 16:40 | GIPROC ---
[facility] [address] [facility]. [facility], [address] EGD PROCEDURE REPORT EXAM DATE: 02/03/2017 PATIENT NAME: Azael Arzola MR #: [id number] BIRTHDATE: 1960 ATTENDING: Teri Noguera MD ORDER #: [id number] STAFF COUNSELOR: Bekah Millard and Vel Isabel STATUS: inpatient INDICATIONS: The patient is a 56 yr old male here for an EGD due to hematemesis PROCEDURE PERFORMED: EGD w/ band ligation of varices MEDICATIONS: Per Anesthesia and None. TOPICAL ANESTHETIC: none CONSENT: The patient understands the risks and benefits of the procedure and understands that these risks include, but are not limited to: sedation, allergic reaction, infection, perforation and/or bleeding. Alternative means of evaluation and treatment include, among others: physical exam, x-rays, and/or surgical intervention. The patient elects to proceed with this endoscopic procedure. medical equipment was checked for proper function. Hand hygiene and appropriate measures for infection prevention was taken. After the risks, benefits and alternatives of the procedure were thoroughly explained, Informed consent was verified, confirmed and timeout was successfully executed by the treatment team. The patient was anesthetized with topical anesthesia and the Pentax [id number] endoscope was introduced through the mouth and advanced to the second portion of the duodenum. Retroflexed views revealed Blood covering the fundus The gastroscope was then slowly withdrawn and removed. ESOPHAGUS: Fresh blood was found in the entire esophagus. There were varices. There were 4 columns of large varices. The varices were bleeding. There was evidence of prior scarring. STOMACH: Blood from recent bleeding. DUODENUM: The duodenal mucosa appeared normal in the bulb and second portion of the duodenum. ADVERSE EVENTS: There were no complications. IMPRESSIONS: 1. Blood in the entire esophagus 2. Blood from recent bleeding Grade 4 esophageal varices, 4 bands applied with total control 3. Normal duodenal mucosa in the bulb and second portion of the duodenum 4. Retroflexed views revealed Blood covering the fundus RECOMMENDATIONS: ICU monitoring PATIENT CONDITION: stable DISPOSITION: Observation REPEAT EXAM: Return 4 weeks EGD Teri Noguera MD eSigned: Teri Noguera MD 02/03/2017 4:40 PM cc:
[2017-02-03] MEDS ORDERED: DO NOT ADM ANY ANTICOAGULANT DRUGS PRN (16:50)
[2017-02-03] MEDS ORDERED: PROPOFOL 200 MG/20 ML AMP IV ONE (17:07)
--- NOTE | 2017-02-03 17:32 | HHI.CCPN ---
Subjective Remarks/Hospital Course Hospital Course: 56 year old male with multiple prior admissions due to GI bleed, history of hepatitis C and liver cirrhosis who presents to the [facility] emergency department with a history of last night before going to bed noticing that his stool was darker than usual. He then awakened suddenly from sound sleep with the cough and nausea and threw up urine colored emesis. The patient's past medical history is significant for cirrhosis of the liver with portal hypertension and GI bleeds related to varices. He has had banding of his varices in the past. He has had multiple blood transfusions related to recurrent anemia. He is followed by the [facility]. His primary care physician is Dr. Huerta. He last saw him earlier today. The patient reports that he last had a paracentesis done during his hospitalization at the beginning of December. He reports that he has had some abdominal distention and lower extremity edema. He reports that when he was last checked for possible paracentesis there was not enough fluid in his abdomen to drain. The patient reports feeling weak and lightheaded with standing. The patient denies having any known fevers, congestion, neck pain, chest pain, shortness of breath , diarrhea, urinary symptoms, or neurologic symptoms. Subjective: 02/03: still requiring active transfusions to keep hgb > 7. plan for EGD today. no evidence of ongoing hypovolemic shock. Objective Vital Signs Date Time Temp Pulse Resp B/P Pulse Ox O2 Delivery O2 Flow Rate FiO2 02/03/17 14:50 98.3 76 12 97 02/03/17 14:32 158/83 02/02/17 05:30 Nasal Cannula 2 Intake and Output 02/02/17 02/02/17 02/02/17 07:59 15:59 23:59 Intake Total 1926 ml 840 ml Output Total 450 ml 650 ml Balance 1476 ml 190 ml Result Diagram: 02/03/17 1548 02/03/17 0321 Imaging Last 24 hours Impressions Chest X-Ray 02/02/17 0232 Signed Impressions: Service Date/Time: Thursday, February 02, 2017 02:54 - CONCLUSION: Normal examination. The right clavicle has been previously fixated. Landon Fonseca MD Objective Remarks GENERAL: middle-aged male, lying in bed. SKIN: Warm and dry. HEAD: Normocephalic. EYES: No scleral icterus. No injection or drainage. NECK: trachea midline. No JVD CARDIOVASCULAR: Regular rate and rhythm. sinus by tele. RESPIRATORY: Breath sounds equal bilaterally. No accessory muscle use. GASTROINTESTINAL: Abdomen soft, non-tender, nondistended. MUSCULOSKELETAL: No cyanosis, or edema. EXTREMITIES: No clubbing cyanosis or edema Neuro: RASS 0. GCS 15. fc x 4. A/P Assessment and Plan Assessment: 56yM with ESLD and active GI bleed. ongoing blood loss and transfusions. plan for EGD today. remain in ICU until bleeding stops or GI gets source control. Upper GI bleed - Portal hypertension - Due to liver cirrhosis - Hepatitis C - IV fluid resuscitation - Blood transfusion - Octreotide drip - Protonix 40 IV twice a day - goal hgb > 7 - GI consult Anemia - Due to above - Serial H&H - Transfuse to keep hemoglobin above 7 Coagulopathy - Underlying liver disease - Transfuse 2 units of FFP Diabetes mellitus - Insulin sliding scale Hypertension - Currently normotensive - Hold all antihypertensive medications due to active GI bleed DVT GI prophylaxis - Teds SCDs - Protonix drip - No pharmacal DVT prophylaxis due to active GI bleed Martin Stinson MD Feb 03, 2017 17:32
[2017-02-04] VITALS (21 sets, daily range): BP systolic 113–180; BP diastolic 59–77; PULSE 57–85; RESP 7–24; TEMP 97.8–98.4; O2SAT 91–100
[2017-02-04] MEDS: INSULIN ASPART SUPPLEMENTAL SCALE SQ SCH ×4 (01:00→18:43)
[2017-02-04] MEDS: SODIUM CHLOR 0.9% 1000 ML INJ 1,000 ML IV SCH ×3 (02:47→20:40)
[2017-02-04] MEDS: CHLORHEXIDINE GLUCONATE 2 % 1 PACK (2 CLOTHS) TOP SCH (04:00)
[2017-02-04 05:35] LABS: HEMATOCRIT 25.8 % (39.0-51.0); MEAN CELL VOLUME 86.3 FL (80.0-100.0); MEAN CORPUSCULAR HEMOGLOBIN 29.4 PG (27.0-34.0); MEAN CORPUSCULAR HGB CONC 34.1 % (32.0-36.0); PLATELET COUNT 74 TH/MM3 (150-450); RED BLOOD COUNT 2.99 MIL/MM3 (4.50-5.90); RED CELL DISTRIBUTION WIDTH 15.9 % (11.6-17.2)
[2017-02-04 05:42] LABS: REVIEW FLAG FINAL
[2017-02-04 06:14] LABS: BICARBONATE 26.3 MEQ/L (21.0-32.0); POTASSIUM 3.7 MEQ/L (3.5-5.1)
[2017-02-04] MEDS: BACLOFEN 20 MG TAB PO SCH ×3 (08:47→19:06)
[2017-02-04] MEDS: PREGABALIN 75 MG CAP PO SCH ×3 (08:47→18:43)
[2017-02-04] MEDS: busPIRone HCL 10 MG TAB PO SCH ×3 (08:47→19:06)
[2017-02-04] MEDS: PROPRANOLOL HCL 10 MG TAB PO SCH ×2 (08:47→20:49)
[2017-02-04] MEDS: cefTRIAXone INJ 1,000 MG in SODIUM CHLORIDE 0.9% INJ 100 ML IV SCH (08:47)
[2017-02-04] MEDS: RIFAXIMIN 550 MG TAB PO SCH ×2 (08:47→20:50)
[2017-02-04] MEDS: TAMSULOSIN HCL 0.4 MG CAP PO SCH (08:47)
[2017-02-04] MEDS: PANTOPRAZOLE SODIUM 40 MG VIAL IV SCH ×2 (08:48→20:49)
[2017-02-04] MEDS: LACTULOSE SYRUP 20 GM/30 ML CUP PO SCH ×3 (08:48→18:49)
[2017-02-04] MEDS: DOCUSATE SODIUM 50 MG/SENNA 8.6 MG TAB PO SCH ×2 (08:48→20:48)
[2017-02-04] MEDS: SODIUM CHLORIDE 0.9% FLUSH 10 ML FLUSH SCH ×2 (08:48→20:46)
--- NOTE | 2017-02-04 11:46 | MB ---
cc: LIDIAANJEL DATE OF CONSULTATION 02/04/2017 DATE OF 1960 INITIAL DIAGNOSIS GI bleed HISTORY OF PRESENT ILLNESS This is a pleasant 56-year-old white male with a significant history of GI bleed, hepatitis C and liver cirrhosis. He has had multiple admissions to the emergency room, as well as the hospital for his complications to GI bleeding and varices. He also has had paracentesis done multiple times. The patient currently is in the intensive care setting and came in with dark stools. Her was evaluated per GI and had an endoscopy which showed three varices two of which were bleeding. According to the notes, these were clipped and the patient was placed back on his medications which included his lactulose and pain management. He is now stable from a bleeding standpoint: There is no active bleeding noted and the patient will need his medical care continued to stabilize him. He currently has a distended abdomen which is positive for a fluid wave, otherwise he denies any chest pain. No acute shortness of breath. No urinary symptoms. No headaches, possible mild weight gain, but no weight loss. Within the first 24 hours of admission, the patient received three units of blood, one unit of platelets and two units of fresh frozen plasma to stabilize his hemoglobin. PAST MEDICAL HISTORY 1. Hepatitis C 2. Cirrhosis of the liver 3. Portal hypertension 4. GI bleed 5. Diabetes 6. Diabetic neuropathy 7. Hyperlipidemia 8. Previous alcohol abuse 9. Encephalopathy and altered mental status. PAST SURGICAL HISTORY 1. Appendectomy 2. Paracentesis for his ascites. 3. He has a plate in his right shoulder 4. Right clavicle with metal 5. Liver biopsy ALLERGIES MDRO (multi-drug organisms) NEOSPORIN AND POLYSPORIN. SOCIAL HISTORY The patient is single. Currently denies any tobacco, alcohol or illicit drug use, but he did drink for a long period of time in his past. He currently lives alone in an apartment with supportive neighbors to help him. MEDICATIONS Reported: 1. TUMS 2. Lyrica 3. BuSpar 4. Baclofen 5. Lactulose 6. Flomax 7. Propranolol 8. Lasix 9. Inderal 10. [place] for pain 11. Spirolactone 12. Rifaximin REVIEW OF SYSTEMS A 10-point review was done. Positives noted in the HPI which include his dark stools, some mild pleasant confusion, GI bleeding with bleeding varices. The patient does note that he bruises easy, but currently denies any dizziness. The patient does not remember a lot of details about the first 24 hours and still has some pleasant altered mental status, but he is able to answer simple symptom questions. PHYSICAL EXAM VITAL SIGNS: Temperature is 98.4, pulse 73, respirations 14-20, blood pressure labile between 118/61 at midnight last night and 180/65 this morning on 02/04/2017 GENERAL: This is a thin, chronically ill white male who looks older than his stated age resting in the bed. He does respond to verbal stimuli. He does have some mild pleasant confusion. SKIN: Jaundiced, dry. Skin turgor is thick and dry. HEENT: Atraumatic, normocephalic. JOSEPHINE. Mucous membranes are dry. NECK: Supple. CARDIOVASCULAR: S1-S2, regular rate and rhythm. No murmurs or rubs or gallops. RESPIRATORY: Volumes all normal range. No wheezes, rales or rhonchi. Essentially clear anteriorly and posteriorly. ABDOMEN: Round, mild distension. Active bowel sounds, positive for mild fluid wave. MUSCULOSKELETAL: No edema. Moves his extremities with purpose. NEUROLOGIC: He is pleasantly confused, but does carry on a conversation about his wishes and needs. He states he is hungry. PSYCHIATRIC: Mild anxiety. DIAGNOSTIC DATA Currently the patient's white count is 4, RBC 2.99, hemoglobin 8.8, hematocrit 25.8, platelet count is 74. PT/INR is 1.3, fibrinogen 101. Chemistry sodium 142, potassium 3.7, chloride 108, carbon dioxide 26.3, BUN 25, random glucose 183, calcium 8.1. The patient's total protein is 5.5 and his albumin is 2. MRSA is not detected. Toxicology shows ethanol level at 5. ASSESSMENT/PLAN 1. GI bleed with esophageal varices 2. Portal hypertension 3. History of hep-C 4. Liver cirrhosis 5. Thrombocytopenia 6. Anemia severe secondary to his GI bleed which is now controlled. 7. Hyperkalemia 8. Anemia severe secondary to his GI bleed which is now controlled. 9. Hyperkalemia which is now controlled. 10. Anemia secondary to his chronic disease as well as acute blood loss. 11. Diabetes mellitus type 2 12. Hypertension We will assist in the medical management of his care. The patient has now been seen and is being followed per GI. We will monitor his labs for any further bleeding. The patient will transfer out of the Intensive Care area and hospitalist service will continue with his medical management. He will receive his medications, pain management, Accu-Chek's a.c. and h.s. with sliding scale. The patient is receiving his lactulose t.i.d. we will monitor his vital signs. The patient will be maintained on Rocephin for now. The patient will receive DuoNebs q2 as needed for any wheezing or shortness of breath. We will have PT evaluate and treat for his mobility and strengthening as well as safety for any discharge planning in the future. Thank you very much for this, we will continue to follow. Dictated by: KIMANI Ramirez MD DENNY Singh/ALIN /9:25 AM /11:17 AM
[2017-02-04 12:04] LABS: HEMATOCRIT 25.6 % (39.0-51.0)
[2017-02-04 12:06] LABS: REVIEW FLAG FINAL
[2017-02-04] MEDS: ACETAMINOPHEN/HYDROcodone 325 MG/5 MG TAB PO PRN ×2 (12:31→20:52)
--- NOTE | 2017-02-04 13:03 | HHI.GIFU ---
Subjective Remarks had 2 normal color stools and no vomiting. Objective Vitals I&O Vital Signs Date Time Temp Pulse Resp B/P Pulse Ox O2 Delivery O2 Flow Rate FiO2 02/04/17 11:00 63 02/04/17 10:00 69 13 157/74 93 02/04/17 10:00 69 02/04/17 09:00 67 12 139/66 91 02/04/17 09:00 67 02/04/17 08:00 98.2 66 7 125/59 100 02/04/17 08:00 66 02/04/17 07:00 69 02/04/17 07:00 69 11 161/75 99 02/04/17 06:00 69 02/04/17 04:00 73 02/04/17 04:00 98.4 73 14 180/65 99 02/04/17 02:00 71 02/04/17 00:00 68 02/04/17 00:00 98.0 68 14 118/61 99 02/03/17 22:00 66 02/03/17 21:26 20 02/03/17 21:04 99 Nasal Cannula 2.00 02/03/17 20:00 98.5 63 16 183/82 96 02/03/17 20:00 64 02/03/17 18:00 98.8 67 12 146/73 97 02/03/17 18:00 67 02/03/17 18:00 67 12 146/73 97 02/03/17 17:45 98.8 69 12 160/69 96 02/03/17 17:44 98.6 69 12 160/69 97 02/03/17 17:44 69 02/03/17 17:30 68 15 148/70 98 Nasal Cannula 2 02/03/17 17:15 68 15 150/73 97 Nasal Cannula 2 02/03/17 16:54 98.4 71 17 158/77 97 Nasal Cannula 2 02/03/17 14:50 98.3 76 12 97 02/03/17 14:32 98.4 63 12 158/83 97 02/03/17 14:00 65 02/03/17 14:00 65 15 138/74 99 02/03/17 13:59 69 14 165/79 99 02/03/17 13:59 98.4 58 12 138/74 97 02/03/17 13:59 69 02/03/17 13:01 62 02/03/17 13:01 62 11 146/71 I/O 02/03/17 02/03/17 02/03/17 02/04/17 02/04/17 02/04/17 07:00 15:00 23:00 07:00 15:00 23:00 Intake Total 713 ml 2362 ml 1309 ml 365 ml Output Total 650 ml 400 ml 850 ml 500 ml Balance 63 ml 1962 ml 459 ml -135 ml Intake Oral 100 ml IV Total 713 ml 1037 ml 1059 ml 365 ml Packed Cells 625 ml FFP 600 ml Other 250 ml Output Urine Total 650 ml 400 ml 850 ml 500 ml # Voids 2 # Bowel Movements 3 1 2 Laboratory Laboratory Tests Test 02/03/17 02/03/17 02/04/17 02/04/17 15:48 16:24 05:15 11:37 Hemoglobin 8.3 8.8 8.8 Hematocrit 23.9 25.8 25.6 Blood Type A POSITIVE Crossmatch Leukocyte-Reduced Red Blood Cells Blood Bank Comment White Blood Count 4.0 Red Blood Count 2.99 Mean Corpuscular Volume 86.3 Mean Corpuscular Hemoglobin 29.4 Mean Corpuscular Hemoglobin 34.1 Concent Red Cell Distribution Width 15.9 Platelet Count 74 Mean Platelet Volume 9.7 Sodium Level 142 Potassium Level 3.7 Chloride Level 108 Carbon Dioxide Level 26.3 Anion Gap 8 Blood Urea Nitrogen 25 Creatinine 0.86 Estimat Glomerular Filtration 92 Rate Random Glucose 183 Calcium Level 8.1 Physical Exam HEENT: Pupils round and reactive to light; normocephalic; atraumatic; no jaundice. Throat is clear. NECK: Neck is supple, no JVD, no lymphadenopathy. CHEST: Chest is clear to auscultation and percussion. CARDIAC: Regular rate and rhythm with no murmur gallop or rubs. ABDOMEN: Soft, nondistended, nontender; no hepatosplenomegaly; bowel sounds are present in all four quadrants. EXTREMITIES: No clubbing, cyanosis, or edema. Assessment and Plan Plan ASSESSMENT - GIB, hematemesis - emesis with dark blood and black material, onset last night and became brighter red. Hx cirrhosis, portal HTN, varices, recent GIB. - Active variceal bleeding S/P banding - anemia - 6.6 on admission, receiving blood now. 2/2 above - abdominal distension - cirrhosis. per pt recently evaluated and insuff fluid for drainage PLAN - Continue Ocreotide - Clear liquid diet - Monitor HH - Transfuse PRN - Continue rifaximin and lactulose - Supportive care Teri Noguera MD Feb 04, 2017 13:03
[2017-02-04] MEDS: MORPHINE SULFATE 4 MG/ML INJ IV PRN ×2 (16:21→18:44)
[2017-02-05] VITALS: BP 112/63; PULSE 53; RESP 16; TEMP 98.3; O2SAT 95
[2017-02-05] MEDS: INSULIN ASPART SUPPLEMENTAL SCALE SQ SCH ×4 (01:00→18:44)
[2017-02-05] MEDS: SODIUM CHLOR 0.9% 1000 ML INJ 1,000 ML IV SCH ×3 (01:48→21:40)
[2017-02-05 04:00] VITALS: BP 143/75; PULSE 56; RESP 18; TEMP 98; O2SAT 96
[2017-02-05] MEDS: CHLORHEXIDINE GLUCONATE 2 % 1 PACK (2 CLOTHS) TOP SCH (04:00)
[2017-02-05] MEDS: ACETAMINOPHEN/HYDROcodone 325 MG/5 MG TAB PO PRN ×3 (05:11→22:34)
[2017-02-05 05:21] LABS: HEMATOCRIT 26.6 % (39.0-51.0); MEAN CELL VOLUME 88.4 FL (80.0-100.0); MEAN CORPUSCULAR HEMOGLOBIN 29.2 PG (27.0-34.0); PLATELET COUNT 73 TH/MM3 (150-450); RED BLOOD COUNT 3.01 MIL/MM3 (4.50-5.90); WHITE BLOOD COUNT 2.9 TH/MM3 (4.0-11.0)
[2017-02-05 05:25] LABS: REVIEW FLAG FINAL
[2017-02-05 05:32] LABS: INTERNATIONAL NORMALIZED RATIO 1.1 RATIO; PROTHROMBIN TIME - PATIENT 12.4 SEC (9.8-11.6)
[2017-02-05 05:50] LABS: BICARBONATE 25.4 MEQ/L (21.0-32.0); POTASSIUM 3.4 MEQ/L (3.5-5.1)
[2017-02-05] MEDS ORDERED: POTASSIUM CHLORIDE 25 MEQ EFFERVESCENT TAB PO ONE (07:30)
[2017-02-05 08:00] VITALS: BP 119/66; PULSE 61; RESP 17; TEMP 97.7; O2SAT 96
[2017-02-05] MEDS: PANTOPRAZOLE SODIUM 40 MG VIAL IV SCH ×2 (08:56→20:24)
[2017-02-05] MEDS: RIFAXIMIN 550 MG TAB PO SCH ×2 (08:56→20:23)
[2017-02-05] MEDS: LACTULOSE SYRUP 20 GM/30 ML CUP PO SCH ×3 (08:56→17:00)
[2017-02-05] MEDS: PREGABALIN 75 MG CAP PO SCH ×3 (08:56→17:00)
[2017-02-05] MEDS: DOCUSATE SODIUM 50 MG/SENNA 8.6 MG TAB PO SCH ×2 (08:57→20:24)
[2017-02-05] MEDS: TAMSULOSIN HCL 0.4 MG CAP PO SCH (08:57)
[2017-02-05] MEDS: SODIUM CHLORIDE 0.9% FLUSH 10 ML FLUSH SCH ×2 (08:57→20:24)
[2017-02-05] MEDS: busPIRone HCL 10 MG TAB PO SCH ×3 (08:57→17:00)
[2017-02-05] MEDS: PROPRANOLOL HCL 10 MG TAB PO SCH ×2 (08:57→20:23)
[2017-02-05] MEDS: cefTRIAXone INJ 1,000 MG in SODIUM CHLORIDE 0.9% INJ 100 ML IV SCH (08:57)
[2017-02-05] MEDS: BACLOFEN 20 MG TAB PO SCH ×3 (09:04→17:00)
--- NOTE | 2017-02-05 11:11 | HHI.PR ---
Subjective Remarks Up in chair Alert, more cooperative today Oriented to person place time and situation for the most part No nausea vomiting, plaints of being hungry Objective Objective Results - Vital Signs Date Time Temp Pulse Resp B/P Pulse Ox O2 Delivery O2 Flow Rate FiO2 02/05/17 08:00 97.7 61 17 119/66 96 02/05/17 04:00 98.0 56 18 143/75 96 02/05/17 00:00 98.3 53 16 112/63 95 02/04/17 20:09 83 02/04/17 20:02 97.8 72 18 138/71 99 02/04/17 18:51 18 02/04/17 18:30 85 02/04/17 17:30 97.8 64 20 155/76 99 02/04/17 16:00 58 02/04/17 16:00 58 7 96 02/04/17 15:58 97.9 57 149/77 98 02/04/17 15:58 57 02/04/17 14:00 66 02/04/17 14:00 66 7 96 02/04/17 13:54 84 24 113/67 02/04/17 13:54 84 02/04/17 13:01 63 02/04/17 13:01 63 16 172/74 96 02/04/17 13:00 67 02/04/17 13:00 67 18 96 02/04/17 12:00 64 02/04/17 12:00 98.1 64 16 143/68 95 I/O 02/04/17 02/04/17 02/04/17 02/05/17 02/05/17 02/05/17 07:00 15:00 23:00 07:00 15:00 23:00 Intake Total 365 ml 1626 ml 280 ml 240 ml Output Total 500 ml 600 ml Balance -135 ml 1626 ml -320 ml 240 ml Intake Oral 870 ml 280 ml 240 ml IV Total 365 ml 756 ml Output Urine Total 500 ml 600 ml # Voids 7 1 # Bowel Movements 2 7 1 0 Result Diagram: 02/05/17 0507 02/05/17 0507 ROS General: Weakness (improving) Cardiac: Edema (trace lower extremity improved) Pulmonary: SOB (improving no shortness of breath noted at rest) GI: Abdominal Pain (mild distention, no nausea or vomiting, tolerating clear liquids well) Neuro/MS: Confusion (improved) Physical Exam Physical Exam PHYSICAL EXAMINATION GENERAL: This is a chronically ill male who appears to be in no acute distress this a.m. He is alert and awake sitting up in chair HEAD: Normocephalic, atraumatic OROPHARYNGEAL: Oropharynx clear NECK: Supple. Trachea midline without deviation. CARDIAC: Regular rhythm, regular rate, S1 and S2 LUNGS: Clear to auscultation bilaterally. Wheezes or rhonchi ABDOMEN: Soft, nontender, mild distention noted. Minimal fluid. Active bowel sounds EXTREMITIES: Trace of lower extremity edema. Pulses equal bilateral NEUROLOGICAL: Patient mood and affect appropriate today SKIN:Warm, dry Objective Remarks I'm hungry. I hope to eat today A/P Assessment and Plan 1. GI bleed with esophageal varices 2. Portal hypertension 3. History of hep-C 4. Liver cirrhosis 5. Thrombocytopenia 6. Anemia severe secondary to his GI bleed which is now controlled. 7. Hyperkalemia 8. Anemia severe secondary to his GI bleed which is now controlled. 9. Hyperkalemia which is now controlled. 10. Anemia secondary to his chronic disease as well as acute blood loss. 11. Diabetes mellitus type 2 12. Hypertension Vital signs reviewed, patient's afebrile, pulse 50s and 60s, asymptomatic with no pain or shortness of breath or dizziness Labs reviewed ammonia level 46, anemia and thrombocytopenia is secondary to his liver cirrhosis and hep C, continue to monitor GI bleed is stable, patient had 3 varices, 2 with a 3 were actively bleeding. This was controlled during EGD, no further acute bleeding noted. Portal hypertension consistent with patient's liver cirrhosis. Patient continues constant evaluation and medical management. Patient is back on his lactulose 3 times a day which is helping. Bowel regimen monitored and controlled for now Initially patient had some hyperkalemia, now treated for mild hypokalemia, potassium dose 25 mEq 1 today. Check BMP in the morning. Diabetes type 2, Accu-Cheks with sliding scale. The patient is on clear liquids secondary to his severe illness and acute bleed. Patient is hoping to have diet increased to regular food today. GI consult and following patient. Appreciate his input and management of his GI disease. Treatment includes dual nebs as needed for any shortness of breath or wheezing, encouraged patient strengthening and mobility. Patient is out of bed in chair and seems to be tolerating well. According to last x-ray patient has minimal amount of fluid in his abdomen. Continue to monitor no paracentesis for now Continue to monitor his labs Discharge planning when patient is stable, plan for home with home health in the next few days once he is tolerating food and ambulating with PT. Claudia Michael Feb 05, 2017 11:11
[2017-02-05 12:00] VITALS: BP 136/70; PULSE 53; RESP 17; TEMP 97.4; O2SAT 99
--- NOTE | 2017-02-05 14:15 | HHI.GIFU ---
Subjective Remarks Pt in chair, no complaints at this time. (Carissa Zhu) Objective Vitals I&O Vital Signs Date Time Temp Pulse Resp B/P Pulse Ox O2 Delivery O2 Flow Rate FiO2 02/05/17 12:00 97.4 53 17 136/70 99 02/05/17 08:00 97.7 61 17 119/66 96 02/05/17 04:00 98.0 56 18 143/75 96 02/05/17 00:00 98.3 53 16 112/63 95 02/04/17 20:09 83 02/04/17 20:02 97.8 72 18 138/71 99 02/04/17 18:51 18 02/04/17 18:30 85 02/04/17 17:30 97.8 64 20 155/76 99 02/04/17 16:00 58 02/04/17 16:00 58 7 96 02/04/17 15:58 97.9 57 149/77 98 02/04/17 15:58 57 I/O 02/04/17 02/04/17 02/04/17 02/05/17 02/05/17 02/05/17 07:00 15:00 23:00 07:00 15:00 23:00 Intake Total 365 ml 1626 ml 280 ml 240 ml Output Total 500 ml 600 ml Balance -135 ml 1626 ml -320 ml 240 ml Intake Oral 870 ml 280 ml 240 ml IV Total 365 ml 756 ml Output Urine Total 500 ml 600 ml # Voids 7 1 # Bowel Movements 2 7 1 0 Laboratory Laboratory Tests Test 02/05/17 05:07 White Blood Count 2.9 Red Blood Count 3.01 Hemoglobin 8.8 Hematocrit 26.6 Mean Corpuscular Volume 88.4 Mean Corpuscular Hemoglobin 29.2 Mean Corpuscular Hemoglobin 33.0 Concent Red Cell Distribution Width 16.0 Platelet Count 73 Mean Platelet Volume 9.5 Prothrombin Time 12.4 Prothromb Time International 1.1 Ratio Sodium Level 141 Potassium Level 3.4 Chloride Level 107 Carbon Dioxide Level 25.4 Anion Gap 9 Blood Urea Nitrogen 15 Creatinine 0.73 Estimat Glomerular Filtration 111 Rate Random Glucose 141 Calcium Level 7.7 Ammonia 46 Physical Exam HEENT: EOMI; normocephalic; atraumatic; no jaundice. CHEST: CTA CARDIAC: RRR ABDOMEN: abd mildly distended, mildly firm, nontender; bowel sounds are present in all four quadrants. EXTREMITIES: No clubbing, cyanosis, or edema. (Carissa Zhu) Assessment and Plan Plan ASSESSMENT - GIB, hematemesis - emesis with dark blood and black material, onset last night and became brighter red. s/p EGD --> grade 4 esophageal varices, 4 x bands applied, blood covering fundus Hx cirrhosis, portal HTN, varices, recent GIB. - Active variceal bleeding S/P banding - anemia - 6.6 on admission, receiving blood now. Hgb currently stable since yesterday. 2/2 above - abdominal distension - cirrhosis. per pt recently evaluated and insuff fluid for drainage PLAN - Continue Ocreotide - Clear liquid diet - Monitor HH - Transfuse PRN - Continue rifaximin and lactulose - Supportive care This pt was seen by myself and Dr Noguera and this note is written on his behalf (Carissa Zhu) Physician Comments Tolerating diet well, no evidence of active bleeding. JEREMY and follow up clinically. (Teri Noguera MD) Carissa Zhu Feb 05, 2017 14:15 Teri Noguera MD Feb 05, 2017 17:08
[2017-02-05 16:00] VITALS: BP 121/59; PULSE 57; RESP 17; TEMP 97.8; O2SAT 97
[2017-02-05] MEDS: MORPHINE SULFATE 4 MG/ML INJ IV PRN ×2 (16:52→20:25)
[2017-02-05 20:00] VITALS: BP 121/62; PULSE 75; PULSE 77; RESP 20; TEMP 97.6; O2SAT 98
[2017-02-06] VITALS (8 sets, daily range): BP systolic 110–167; BP diastolic 60–78; PULSE 53–70; RESP 16–20; TEMP 97.6–98.8; O2SAT 96–100
[2017-02-06] MEDS: INSULIN ASPART SUPPLEMENTAL SCALE SQ SCH ×4 (02:22→18:08)
[2017-02-06] MEDS: SODIUM CHLOR 0.9% 1000 ML INJ 1,000 ML IV SCH (02:27)
[2017-02-06] MEDS: CHLORHEXIDINE GLUCONATE 2 % 1 PACK (2 CLOTHS) TOP SCH (04:00)
[2017-02-06] MEDS: MORPHINE SULFATE 4 MG/ML INJ IV PRN ×2 (04:15→18:06)
[2017-02-06 05:25] LABS: HEMATOCRIT 24.7 % (39.0-51.0); MEAN CELL VOLUME 89.4 FL (80.0-100.0); MEAN CORPUSCULAR HEMOGLOBIN 29.5 PG (27.0-34.0); PLATELET COUNT 65 TH/MM3 (150-450); RED BLOOD COUNT 2.76 MIL/MM3 (4.50-5.90); RED CELL DISTRIBUTION WIDTH 15.8 % (11.6-17.2); WHITE BLOOD COUNT 2.3 TH/MM3 (4.0-11.0)
[2017-02-06 05:30] LABS: REVIEW FLAG FINAL
[2017-02-06 06:02] LABS: BICARBONATE 23.9 MEQ/L (21.0-32.0); POTASSIUM 3.8 MEQ/L (3.5-5.1)
[2017-02-06] MEDS: ACETAMINOPHEN/HYDROcodone 325 MG/5 MG TAB PO PRN ×3 (06:08→21:58)
[2017-02-06 06:46] LABS: CALCIUM-PROTEIN CORRECTED 7.9 MG/DL (8.5-10.1)
[2017-02-06] MEDS: busPIRone HCL 10 MG TAB PO SCH ×3 (08:12→17:06)
[2017-02-06] MEDS: TAMSULOSIN HCL 0.4 MG CAP PO SCH (08:12)
[2017-02-06] MEDS: PREGABALIN 75 MG CAP PO SCH ×3 (08:13→17:06)
[2017-02-06] MEDS: RIFAXIMIN 550 MG TAB PO SCH ×2 (08:13→21:50)
[2017-02-06] MEDS: DOCUSATE SODIUM 50 MG/SENNA 8.6 MG TAB PO SCH ×2 (08:13→21:00)
[2017-02-06] MEDS: cefTRIAXone INJ 1,000 MG in SODIUM CHLORIDE 0.9% INJ 100 ML IV SCH (08:14)
[2017-02-06] MEDS: LACTULOSE SYRUP 20 GM/30 ML CUP PO SCH ×3 (08:15→17:06)
[2017-02-06] MEDS: PANTOPRAZOLE SODIUM 40 MG VIAL IV SCH ×2 (08:17→21:51)
[2017-02-06] MEDS: SODIUM CHLORIDE 0.9% FLUSH 10 ML FLUSH SCH ×2 (08:17→21:51)
[2017-02-06] MEDS: BACLOFEN 20 MG TAB PO SCH ×3 (08:19→17:06)
[2017-02-06] MEDS: PROPRANOLOL HCL 10 MG TAB PO SCH ×2 (09:46→21:51)
--- NOTE | 2017-02-06 13:48 | HHI.PR ---
Subjective Remarks Up in chair Eating solid food, hungry, appetite good Color Mild jaundice Vital signs stable, with heart rate in the 50s. This is his norm (Claudia Michael) Objective Objective Results - Vital Signs Date Time Temp Pulse Resp B/P Pulse Ox O2 Delivery O2 Flow Rate FiO2 02/06/17 12:00 97.6 60 18 133/66 96 02/06/17 09:44 65 02/06/17 08:07 97.7 53 20 144/71 100 02/06/17 08:06 55 02/06/17 08:06 Room Air 02/06/17 04:00 98.8 69 16 136/63 97 02/06/17 04:00 Room Air 02/06/17 00:00 98.4 64 20 110/60 97 02/06/17 00:00 Room Air 02/05/17 20:00 77 02/05/17 20:00 Room Air 02/05/17 20:00 97.6 75 20 121/62 98 02/05/17 16:00 97.8 57 17 121/59 97 I/O 02/05/17 02/05/17 02/05/17 02/06/17 02/06/17 02/06/17 06:59 14:59 22:59 06:59 14:59 22:59 Intake Total 240 ml 1200 ml 2464 ml 865 ml Balance 240 ml 1200 ml 2464 ml 865 ml Intake Oral 240 ml 1200 ml 440 ml 220 ml IV Total 2024 ml 645 ml # Voids 1 5 1 3 # Bowel Movements 0 2 1 1 (Claudia Michael) Result Diagram: 02/06/17 0507 02/06/17 0507 ROS General: Fatigue (improving gradual), Weakness, Other (10 point ROS done positives noted) Cardiac: Edema (mild abdomen, lower extremities normal range) Pulmonary: Cough (occasional), SOB (exertional) GI: Other (abdomen taut, minimal fluid wave) Neuro/MS: Other (more alert cooperative, speech is clear) (Claudia Michael) Physical Exam Physical Exam PHYSICAL EXAMINATION GENERAL: This is a chronically ill male who appears to be in no acute distress. He is alert and awake, feeling better HEAD: Normocephalic OROPHARYNGEAL: Oropharynx clear NECK: Supple. Trachea midline without deviation. CARDIAC: Regular rhythm, regular rate, S1 and S2 are heard. LUNGS: Mild diminished lung sounds, but no wheezes or rhonchi, volumes are minimal low ABDOMEN: taut, nontender, mild fluid wave EXTREMITIES moves extremities with purpose NEUROLOGICAL: Patient mood and affect appropriate. SKIN:Warm, dry (Claudia Michael) A/P Assessment and Plan 1. GI bleed with esophageal varices 2. Portal hypertension 3. History of hep-C 4. Liver cirrhosis 5. Thrombocytopenia 6. Anemia severe secondary to his GI bleed which is now controlled. 7. Hyperkalemia 8. Anemia severe secondary to his GI bleed which is now controlled. 9. Hyperkalemia which is now controlled. 10. Anemia secondary to his chronic disease as well as acute blood loss. 11. Diabetes mellitus type 2 12. Hypertension Vital signs reviewed, patient's afebrile, pulse 50s and 60s, asymptomatic with no pain or shortness of breath or dizziness Labs reviewed , anemia noted with current hemoglobin at 8.1 , this is a slow drop noted , patient is asymptomatic we will continue to monitor . ammonia level 46, anemia and thrombocytopenia is secondary to his liver cirrhosis and hep C, continue to monitor Checking the morning labs GI bleed is stable, patient had 3 varices, 2 with a 3 were actively bleeding. This was controlled during EGD, no further acute bleeding noted. Portal hypertension consistent with patient's liver cirrhosis. Patient continues constant evaluation and medical management. Patient is back on his lactulose 3 times a day which is helping. Bowel regimen monitored and controlled for now Initially patient had some hyperkalemia, now treated for mild hypokalemia, Diabetes type 2, Accu-Cheks with sliding scale. Diet was increased to heart healthy diet last p.m. patient was tolerating well and eating 100% GI consult and following patient. Appreciate his input and management of his GI disease. Patient is requesting low sodium diet, with more food choices. Treatment includes dual nebs as needed for any shortness of breath or wheezing, encouraged patient strengthening and mobility. Patient is out of bed in chair and seems to be tolerating well. According to last x-ray patient has minimal amount of fluid in his abdomen. Continue to monitor no paracentesis for now Continue to monitor his labs Discharge planning when patient is stable, plan for home with home health in the next few days once he is tolerating food and ambulating with PT. (Claudia Michael) Assessment and Plan pt is seen & Examined d/w PT d/w claudia wyman/w RN agree w above ss for dc planning, possible d/c in am,if ok w GI (Tracie Vargas MD) Caludia Michael Feb 06, 2017 13:48 Tracie Vargas MD Feb 06, 2017 14:46
--- NOTE | 2017-02-06 15:06 | HHI.GIFU ---
Subjective Remarks Patient is resting in bed, accompanied by visitors, doing good, no nausea, no vomiting, no melena or hematochezia. (FrancheskaSofia) Objective Vitals I&O Vital Signs Date Time Temp Pulse Resp B/P Pulse Ox O2 Delivery O2 Flow Rate FiO2 02/06/17 12:00 97.6 60 18 133/66 96 02/06/17 09:44 65 02/06/17 08:07 97.7 53 20 144/71 100 02/06/17 08:06 55 02/06/17 08:06 Room Air 02/06/17 04:00 98.8 69 16 136/63 97 02/06/17 04:00 Room Air 02/06/17 00:00 98.4 64 20 110/60 97 02/06/17 00:00 Room Air 02/05/17 20:00 77 02/05/17 20:00 Room Air 02/05/17 20:00 97.6 75 20 121/62 98 02/05/17 16:00 97.8 57 17 121/59 97 I/O 02/05/17 02/05/17 02/05/17 02/06/17 02/06/17 02/06/17 07:00 15:00 23:00 07:00 15:00 23:00 Intake Total 240 ml 1200 ml 2464 ml 865 ml Balance 240 ml 1200 ml 2464 ml 865 ml Intake Oral 240 ml 1200 ml 440 ml 220 ml IV Total 2024 ml 645 ml # Voids 1 5 1 3 # Bowel Movements 0 2 1 1 Laboratory Laboratory Tests Test 02/06/17 05:07 White Blood Count 2.3 Red Blood Count 2.76 Hemoglobin 8.1 Hematocrit 24.7 Mean Corpuscular Volume 89.4 Mean Corpuscular Hemoglobin 29.5 Mean Corpuscular Hemoglobin 33.0 Concent Red Cell Distribution Width 15.8 Platelet Count 65 Mean Platelet Volume 9.8 Sodium Level 138 Potassium Level 3.8 Chloride Level 106 Carbon Dioxide Level 23.9 Anion Gap 8 Blood Urea Nitrogen 9 Creatinine 0.66 Estimat Glomerular Filtration 124 Rate Random Glucose 181 Calcium Level 7.3 Protein Corrected Calcium 7.9 Total Protein 6.0 Imaging Last Impressions Chest X-Ray 02/02/17 0232 Signed Impressions: Service Date/Time: Thursday, February 02, 2017 02:54 - CONCLUSION: Normal examination. The right clavicle has been previously fixated. Landon Fonseca MD Liver Ultrasound 02/02/17 0000 Signed Impressions: Service Date/Time: Thursday, February 02, 2017 09:32 - CONCLUSION: Abnormal ultrasound similar to prior examinations with hepatosplenomegaly, heterogeneous echotexture of the liver characteristic of cirrhosis, ascites, and sludge- filled gallbladder. Raad Pulido MD Abdomen Ultrasound 02/02/17 0000 Signed Impressions: Service Date/Time: Thursday, February 02, 2017 14:56 - CONCLUSION: Minimal, insufficient fluid for paracentesis. Raad Pulido MD Physical Exam HEENT: EOMI; normocephalic; atraumatic; no jaundice. CHEST: CTA CARDIAC: RRR ABDOMEN: abd mildly distended, mildly firm, nontender; bowel sounds are present in all four quadrants. EXTREMITIES: No clubbing, cyanosis, or edema. (Sofia Pritchard) Assessment and Plan Plan ASSESSMENT - GIB, hematemesis -s/p EGD --> grade 4 esophageal varices, 4 x bands applied, blood covering fundus Hx cirrhosis, portal HTN, varices, recent GIB. - Active variceal bleeding S/P banding - anemia - 6.6 on admission- no more bleeding hgb 8.1, stable s/p 7 units of blood, 2 of FFP, 1 unit of plt. - abdominal distension - cirrhosis. per pt recently evaluated and insuff fluid for drainage PLAN - Low salt diet - Continue Ocreotide - Monitor HH - Transfuse PRN - Continue rifaximin and lactulose - Supportive care This pt was seen by myself and Dr Menon and this note is written on his behalf (Sofia Pritchard) Physician Comments Patient seen and examined Agree with above Continue with current supportive care Monitor labs (Romeo Menon MD) Sofia Pritchard Feb 06, 2017 15:06 Romeo Menon MD Feb 06, 2017 18:16
[2017-02-07] VITALS: BP 155/80; PULSE 72; RESP 18; TEMP 97.8; O2SAT 97
[2017-02-07] MEDS: INSULIN ASPART SUPPLEMENTAL SCALE SQ SCH ×4 (01:15→18:14)
[2017-02-07] MEDS: CHLORHEXIDINE GLUCONATE 2 % 1 PACK (2 CLOTHS) TOP SCH (03:13)
[2017-02-07 04:00] VITALS: BP 131/72; PULSE 63; RESP 18; TEMP 97.9; O2SAT 99
[2017-02-07] MEDS: MORPHINE SULFATE 4 MG/ML INJ IV PRN ×4 (04:32→17:26)
[2017-02-07 05:32] LABS: HEMATOCRIT 25.3 % (39.0-51.0); MEAN CELL VOLUME 89.6 FL (80.0-100.0); MEAN CORPUSCULAR HEMOGLOBIN 29.5 PG (27.0-34.0); PLATELET COUNT 65 TH/MM3 (150-450); RED BLOOD COUNT 2.82 MIL/MM3 (4.50-5.90); RED CELL DISTRIBUTION WIDTH 15.8 % (11.6-17.2); WHITE BLOOD COUNT 1.9 TH/MM3 (4.0-11.0)
[2017-02-07 05:58] LABS: REVIEW FLAG AUTO DIFF
[2017-02-07] MEDS: ACETAMINOPHEN/HYDROcodone 325 MG/5 MG TAB PO PRN ×3 (06:11→19:13)
[2017-02-07 06:57] LABS: BICARBONATE 24.2 MEQ/L (21.0-32.0); POTASSIUM 4.1 MEQ/L (3.5-5.1)
[2017-02-07 07:26] LABS: CALCIUM-PROTEIN CORRECTED 7.7 MG/DL (8.5-10.1)
[2017-02-07 08:00] VITALS: BP 114/67; PULSE 60; RESP 18; TEMP 97.8; O2SAT 100
[2017-02-07] MEDS: LACTULOSE SYRUP 20 GM/30 ML CUP PO SCH ×3 (08:17→17:26)
[2017-02-07] MEDS: cefTRIAXone INJ 1,000 MG in SODIUM CHLORIDE 0.9% INJ 100 ML IV SCH (08:17)
[2017-02-07] MEDS: TAMSULOSIN HCL 0.4 MG CAP PO SCH (08:18)
[2017-02-07] MEDS: RIFAXIMIN 550 MG TAB PO SCH ×2 (08:18→20:53)
[2017-02-07] MEDS: BACLOFEN 20 MG TAB PO SCH ×3 (08:18→17:25)
[2017-02-07] MEDS: PREGABALIN 75 MG CAP PO SCH ×3 (08:18→17:25)
[2017-02-07] MEDS: PANTOPRAZOLE SODIUM 40 MG VIAL IV SCH ×2 (08:18→20:53)
[2017-02-07] MEDS: busPIRone HCL 10 MG TAB PO SCH ×3 (08:19→17:25)
[2017-02-07] MEDS: SODIUM CHLORIDE 0.9% FLUSH 10 ML FLUSH SCH ×2 (08:20→20:54)
[2017-02-07] MEDS: PROPRANOLOL HCL 10 MG TAB PO SCH ×2 (08:21→20:53)
[2017-02-07] MEDS: DOCUSATE SODIUM 50 MG/SENNA 8.6 MG TAB PO SCH ×2 (08:21→20:57)
[2017-02-07 12:00] VITALS: BP 128/74; PULSE 59; RESP 18; TEMP 97.3; O2SAT 100
--- NOTE | 2017-02-07 12:17 | HHI.GIFU ---
Subjective Remarks Comfortable in chair no complaints ready to go home Objective Vitals I&O Vital Signs Date Time Temp Pulse Resp B/P Pulse Ox O2 Delivery O2 Flow Rate FiO2 02/07/17 11:16 98 Room Air 02/07/17 08:00 97.8 60 18 114/67 100 02/07/17 04:00 97.9 63 18 131/72 99 02/07/17 00:00 97.8 72 18 155/80 97 02/07/17 00:00 Room Air 02/06/17 20:30 Room Air 02/06/17 20:00 60 02/06/17 20:00 97.7 70 18 154/78 98 02/06/17 16:00 97.7 63 18 167/74 97 I/O 02/06/17 02/06/17 02/06/17 02/07/17 02/07/17 02/07/17 07:00 15:00 23:00 07:00 15:00 23:00 Intake Total 865 ml 1200 ml 120 ml 360 ml Balance 865 ml 1200 ml 120 ml 360 ml Intake Oral 220 ml 1200 ml 120 ml 360 ml IV Total 645 ml # Voids 3 5 1 3 # Bowel Movements 1 5 2 Laboratory Laboratory Tests Test 02/07/17 05:14 White Blood Count 1.9 Red Blood Count 2.82 Hemoglobin 8.3 Hematocrit 25.3 Mean Corpuscular Volume 89.6 Mean Corpuscular Hemoglobin 29.5 Mean Corpuscular Hemoglobin 33.0 Concent Red Cell Distribution Width 15.8 Platelet Count 65 Mean Platelet Volume 9.8 Sodium Level 138 Potassium Level 4.1 Chloride Level 106 Carbon Dioxide Level 24.2 Anion Gap 8 Blood Urea Nitrogen 7 Creatinine 0.67 Estimat Glomerular Filtration 122 Rate Random Glucose 163 Calcium Level 7.3 Protein Corrected Calcium 7.7 Ammonia 73 Total Protein 6.3 Physical Exam HEENT: EOMI; normocephalic; atraumatic; no jaundice. CHEST: CTA CARDIAC: RRR ABDOMEN: abd mildly distended, nontender; bowel sounds are present in all four quadrants. EXTREMITIES: No clubbing, cyanosis, or edema. Assessment and Plan Plan ASSESSMENT - GIB, hematemesis -s/p EGD --> grade 4 esophageal varices, 4 x bands applied, blood covering fundus Hx cirrhosis, portal HTN, varices, recent GIB. - Active variceal bleeding S/P banding - anemia - 6.6 on admission- no more bleeding hgb 8.1, stable s/p 7 units of blood, 2 of FFP, 1 unit of plt. - abdominal distension - cirrhosis. per pt recently evaluated and insuff fluid for drainage PLAN - Low salt diet -Okay to stop octreotide continue with PPI - Monitor HH - Transfuse PRN - Continue rifaximin and lactulose - Supportive care Follow up with GI post discharge Romeo Menon MD Feb 07, 2017 12:17
--- NOTE | 2017-02-07 12:33 | HHI.PR ---
Subjective Subjective Remarks sitting up awake, oriented x 3, slightly slow to respond but overall improved anxious to go home abd. distended, states that it's same as before no rectal bleeding no hematemesis no cp no sob anxious to go home Review of Systems Constitutional Constitutional Remarks 12 point ros completed, negative except as noted above Vitals/Results Intake & Output 02/06/17 02/06/17 02/07/17 15:00 23:00 07:00 Intake Total 1200 ml 120 ml 360 ml Balance 1200 ml 120 ml 360 ml Intake Oral 1200 ml 120 ml 360 ml # Voids 5 1 3 # Bowel Movements 5 2 Vital Signs Vital Signs Date Time Temp Pulse Resp B/P Pulse Ox O2 Delivery O2 Flow Rate FiO2 02/07/17 11:16 98 Room Air 02/07/17 08:00 97.8 60 18 114/67 100 02/07/17 04:00 97.9 63 18 131/72 99 02/07/17 00:00 97.8 72 18 155/80 97 02/07/17 00:00 Room Air 02/06/17 20:30 Room Air 02/06/17 20:00 60 02/06/17 20:00 97.7 70 18 154/78 98 02/06/17 16:00 97.7 63 18 167/74 97 CBC/BMP: 02/07/17 0514 02/07/17 0514 Lab Results Laboratory Tests Test 02/07/17 05:14 White Blood Count 1.9 TH/MM3 Red Blood Count 2.82 MIL/MM3 Hemoglobin 8.3 GM/DL Hematocrit 25.3 % Mean Corpuscular Volume 89.6 FL Mean Corpuscular Hemoglobin 29.5 PG Mean Corpuscular Hemoglobin 33.0 % Concent Red Cell Distribution Width 15.8 % Platelet Count 65 TH/MM3 Mean Platelet Volume 9.8 FL Sodium Level 138 MEQ/L Potassium Level 4.1 MEQ/L Chloride Level 106 MEQ/L Carbon Dioxide Level 24.2 MEQ/L Anion Gap 8 MEQ/L Blood Urea Nitrogen 7 MG/DL Creatinine 0.67 MG/DL Estimat Glomerular Filtration 122 ML/MIN Rate Random Glucose 163 MG/DL Calcium Level 7.3 MG/DL Protein Corrected Calcium 7.7 MG/DL Ammonia 73 MCMOL/L Total Protein 6.3 GM/DL Physical Exam General General Appearance: Well Developed, Well Nourished, No Acute Distress, Comfortable Eyes Eye Exam: Pupils Equal, Pupils Reactive Ears & Nose Ears & Nose Exam: Nasal Mucosa [place] Throat Throat Exam: Oral Mucosa [place] & Moist Neck Neck Exam: Neck Supple, Trachea Midline Pulmonary Resp Exam: No Distress, Decreased Bases Cardiology CV Exam: Regular Gastrointestinal/Abdomen GI Exam: Bowel Sounds Present, Distended Musculoskeletal MS Exam: Joints Intact Integumentary Skin Exam: Warm, Dry Extremeties Extremities Exam: Pedal Pulses Palpable, Trace Edema Neurologic Neuro Exam: Alert, Awake, Oriented, Speech Clear, Moving All Extremities, No Focal Deficits Psychiatric Psych Exam: Appropriate Responses VTE Prophylaxis VTE Prophylaxis Device: SCDs PUD Prophylasis PUD Prophylaxis: Protonix Assessment/Plan Assessment/Plan 1. GI bleed with esophageal varices 2. Portal hypertension 3. History of hep-C 4. Liver cirrhosis 5. Thrombocytopenia 6. Anemia severe secondary to his GI bleed which is now controlled. 7. Hyperkalemia 8. Anemia severe secondary to his GI bleed which is now controlled. 9. Hyperkalemia which is now controlled. 10. Anemia secondary to his chronic disease as well as acute blood loss. 11. Diabetes mellitus type 2 12. Hypertension Plan GI bleed s/p varices 6/7-S/P EGD, varices x 4 with active bleeding, post banding post PRBC/FFP/plat. transfusion, HH stable 8.3/25.3 plat 65, chronic elevated ammonia, continue Lactulose ammonia remains elevated, improved mental status, repeat in am appreciate GI input abd. distended, ? paracentesis will check abd. US consult heme for thrombocytopenia, leukopenia Diabetes type 2 continue with Accu-Cheks with sliding scale HTN stable continue home meds PPI for GI prophylaxis SCD for DVT prophylaxis Labs in am CM for dc planning, HHC poss dc in am D/W RN D/W Dr. Vargas D/W pt. This pt. was seen by myself and Dr. Vargas, this note is written on his behalf. Joanna Herrera Feb 07, 2017 12:33
--- NOTE | 2017-02-07 15:12 | RADRPT ---
EXAM DATE/TIME: 02/07/2017 14:18 [facility] COMPARISON: US ABDOMEN - LOWER LIMITED, February 02, 2017, 14:56. EXTERNAL COMPARISON : [facility], US ABDOMEN - COMPLETE, September 15, 2016 INDICATIONS : Ascites. MEDICAL HISTORY : Hypercholesterolemia. Hypertension. Hepatitis C. Diabetic neuropathy. Ulcer. Ascites. Hematemesis. Di abetes. ESBL. Anticoagulant therapy, Aspirin. SURGICAL HISTORY : Tonsillectomy. Appendectomy. Paracentesis. Right clavical surgery with metal. Blood transfusions. ENCOUNTER: Subsequent ACUITY: 1 month PAIN SCORE: 7/10 LOCATION: Abdomen. AREA EVALUATED: Quadrants. FINDINGS: Imaging of the abdomen and pelvis was performed to evaluate for ascites for possible paracentesis. Mo derate diffuse ascites demonstrated, increased from the 6th. CONCLUSION: Moderate volume ascites, increased. Raúl Greene MD on February 07, 2017 at 15:08 Board Certified Radiologist. This report was verified electronically.
[2017-02-07 16:00] VITALS: BP 154/73; PULSE 57; RESP 18; TEMP 97.8; O2SAT 100
[2017-02-07 20:00] VITALS: BP 134/71; PULSE 54; PULSE 69; RESP 16; TEMP 97.5; O2SAT 99
[2017-02-08] VITALS (11 sets, daily range): BP systolic 107–171; BP diastolic 59–83; PULSE 53–62; RESP 16–20; TEMP 97–98.3; O2SAT 96–100
[2017-02-08] MEDS: INSULIN ASPART SUPPLEMENTAL SCALE SQ SCH ×4 (00:35→17:17)
[2017-02-08] MEDS: MORPHINE SULFATE 4 MG/ML INJ IV PRN ×5 (02:27→17:00)
[2017-02-08] MEDS: CHLORHEXIDINE GLUCONATE 2 % 1 PACK (2 CLOTHS) TOP SCH (04:00)
[2017-02-08] MEDS: ACETAMINOPHEN/HYDROcodone 325 MG/5 MG TAB PO PRN ×2 (05:23→20:28)
--- NOTE | 2017-02-08 06:40 | MB ---
cc: LORI URIOSTEGUI M.D. DATE OF CONSULTATION 02/07/2017 REASON FOR CONSULTATION Consult requested by hospitalist for evaluation of pancytopenia. HISTORY OF PRESENT ILLNESS Azael is a pleasant 56-year-old male. He has a history of alcoholism and hepatitis C. He has developed cirrhosis of the liver with esophageal varices and intermittent chronic GI bleeding. He is under the care of [facility]. He states that recently he had multiple blood tests to see whether he could qualify for the treatment for hepatitis C at [facility]. He has a follow-up appointment with the ground school instructor. The patient is admitted to the hospital for GI bleeding. He underwent procedure by the ground school instructor. He had upper endoscopy which showed blood from the recent bleeding, grade 4 esophageal varices. Four bands were applied with total control the bleeding. The patient had blood tests on admission on 02/02 which showed a white count of 7.6, hemoglobin 6.6, hematocrit 20.6, platelet count 159. He had received 7 units of blood transfusion, 2 units of fresh frozen plasma and 1 unit of platelet transfusion. His hemoglobin has improved off after the blood transfusion and now it is stable around 8.3. His white count has dropped to 1.9 and platelet count remains low at 65. Because of the pancytopenia, I have been asked to see him for further evaluation. REVIEW OF SYSTEMS The patient has a history of chronic pancytopenia for quite some time per the [facility] EMR. He has thrombocytopenia dating back to 2003. This was due to cirrhosis of the liver with hypersplenism. The patient stopped drinking alcohol. He is complaining of weakness, tiredness and fatigue. He denies any nausea or vomiting, diarrhea or constipation. The rest of the review of systems is negative. PAST MEDICAL HISTORY 1. Hypertension. 2. Cirrhosis. 3. Hepatitis C. 4. Hypercholesterolemia. 5. Diabetes mellitus. 6. History of alcoholism. 7. Chronic back pain. 8. Arthritis. PAST SURGICAL HISTORY 1. Paracentesis. 2. Upper endoscopy. 3. Colonoscopy. ALLERGIES NEOSPORIN. POLYSPORIN. MEDICATIONS Please see EMR. FAMILY HISTORY Noncontributory. SOCIAL HISTORY The patient used to drink alcohol but quit a long time ago. He does not smoke cigarettes. PHYSICAL EXAMINATION GENERAL: He is a well-developed, well-nourished white male in no apparent distress. VITAL SIGNS: Temperature 97.3, heart rate is 59, blood pressure 128/74. HEENT: PERRLA, EOMI, anicteric. No oral lesions are noted. NECK: Supple. LYMPHATICS: There is no cervical, supraclavicular or axillary lymphadenopathy noted. LUNGS: Clear. No wheezing, rhonchi or rales. HEART: Regular rate and rhythm. ABDOMEN: Nontender. No hepatosplenomegaly. EXTREMITIES: No pedal edema. NEUROLOGY: Awake, alert, oriented x 3. SKIN: No significant lesions are noted. ASSESSMENT 1. Chronic pancytopenia due to hypersplenism from cirrhosis of the liver. 2. Cirrhosis of the liver most likely due to hepatitis C and alcoholism. 3. GI bleeding due to bleeding varices status post pending. PLAN I have reviewed his available records and I have discussed with the patient regarding the pancytopenia. His CBC today showed white count of 1.9, hemoglobin 8.3, hematocrit was 25.3, platelet count 65. I have reviewed his previous CBCs on the EMR. The patient has chronic thrombocytopenia dating back to 2003. However, his platelet count has been running above 50,000 and he has not had any bleeding from the thrombocytopenia. He recently had GI bleeding which is due to the esophageal varices from cirrhosis of the liver. Also, his white count fluctuates for the last several years; has been running in the normal range and then it dropped down and then comes back to normal. No differential count was done today but his last differential count was four days ago on February 03 and came back completely normal. My recommendation is to check the B12, folate and iron studies. The patient had GI bleeding. I suspect that he may have iron deficiency. If it is true, then the patient will benefit from the iron infusion. However, the iron studies may not be reliable as the patient already had massive blood transfusion. He had received a total of 7 units of blood transfusion. I recommend to monitor his CBC as an outpatient. If there is worsening of his pancytopenia, then the patient may benefit from bone marrow aspirate and biopsy to evaluate for any underlying bone marrow pathology. The patient had an ultrasound of the liver which showed hepatosplenomegaly consistent with the previous examination. The patient is undergoing workup to see whether he could be eligible for treatment for hepatitis C by the ground school instructor. Further recommendations based on his hospital stay. Thank you for asking my opinion. MD INNA Humphrey /1:56 AM /6:30 AM [email or web address]
[2017-02-08 07:24] LABS: MEAN CELL VOLUME 89.5 FL (80.0-100.0); MEAN CORPUSCULAR HEMOGLOBIN 30.4 PG (27.0-34.0); PLATELET COUNT 68 TH/MM3 (150-450); RED BLOOD COUNT 2.91 MIL/MM3 (4.50-5.90); WHITE BLOOD COUNT 2.3 TH/MM3 (4.0-11.0)
[2017-02-08 07:28] LABS: REVIEW FLAG FINAL
[2017-02-08 07:53] LABS: ANION GAP 8 MEQ/L (5-15); BICARBONATE 24.4 MEQ/L (21.0-32.0); BLOOD UREA NITROGEN 6 MG/DL (7-18); CHLORIDE 104 MEQ/L (98-107); GLOMERULAR FILTRATION RATE 122 ML/MIN (>89); POTASSIUM 3.9 MEQ/L (3.5-5.1); SODIUM (NA) 136 MEQ/L (136-145)
[2017-02-08 08:20] LABS: FERRITIN 28 NG/ML (26-388); TRANSFERRIN IRON PROFILE 249 MG/DL (200-360)
[2017-02-08] MEDS: PREGABALIN 75 MG CAP PO SCH ×3 (08:44→17:19)
[2017-02-08] MEDS: LACTULOSE SYRUP 20 GM/30 ML CUP PO SCH ×3 (08:48→17:05)
[2017-02-08] MEDS: busPIRone HCL 10 MG TAB PO SCH ×3 (08:48→17:05)
[2017-02-08] MEDS: PROPRANOLOL HCL 10 MG TAB PO SCH ×2 (08:48→20:28)
[2017-02-08] MEDS: RIFAXIMIN 550 MG TAB PO SCH ×2 (08:49→20:28)
[2017-02-08] MEDS: PANTOPRAZOLE SODIUM 40 MG VIAL IV SCH ×2 (08:49→20:27)
[2017-02-08] MEDS: TAMSULOSIN HCL 0.4 MG CAP PO SCH (08:49)
[2017-02-08] MEDS: BACLOFEN 20 MG TAB PO SCH ×3 (08:51→17:05)
[2017-02-08] MEDS: DOCUSATE SODIUM 50 MG/SENNA 8.6 MG TAB PO SCH ×2 (08:51→20:30)
[2017-02-08] MEDS: SODIUM CHLORIDE 0.9% FLUSH 10 ML FLUSH SCH ×2 (08:52→20:28)
--- NOTE | 2017-02-08 09:03 | PD.ONC.PN ---
Subjective Subjective Remarks Afebrile overnight. Patient resting in room in nad. No bleeding. No overnight events. Objective Data Date Time Temp Pulse Resp B/P Pulse Ox O2 Delivery O2 Flow Rate FiO2 02/08/17 04:00 97.9 58 16 167/83 96 02/08/17 00:00 97.7 55 16 136/70 98 02/08/17 00:00 Room Air 02/07/17 20:00 97.5 54 16 134/71 99 02/07/17 20:00 69 02/07/17 19:45 Room Air 02/07/17 16:00 97.8 57 18 154/73 100 02/07/17 12:00 97.3 59 18 128/74 100 02/07/17 11:16 98 Room Air 02/08/17 02/08/17 02/08/17 07:00 15:00 23:00 Intake Total 120 ml Balance 120 ml Result Diagram: 02/08/17 0707 02/08/17 0707 Laboratory Results Laboratory Tests Test 02/08/17 07:07 White Blood Count 2.3 TH/MM3 Red Blood Count 2.91 MIL/MM3 Hemoglobin 8.8 GM/DL Hematocrit 26.0 % Mean Corpuscular Volume 89.5 FL Mean Corpuscular Hemoglobin 30.4 PG Mean Corpuscular Hemoglobin 34.0 % Concent Red Cell Distribution Width 16.0 % Platelet Count 68 TH/MM3 Mean Platelet Volume 10.0 FL Sodium Level 136 MEQ/L Potassium Level 3.9 MEQ/L Chloride Level 104 MEQ/L Carbon Dioxide Level 24.4 MEQ/L Anion Gap 8 MEQ/L Blood Urea Nitrogen 6 MG/DL Creatinine 0.67 MG/DL Estimat Glomerular Filtration 122 ML/MIN Rate Random Glucose 136 MG/DL Calcium Level 7.9 MG/DL Iron Level 28 MCG/DL Total Iron Binding Capacity 349 MCG/DL Percent Iron Saturation 8.0 % Ferritin 28 NG/ML Ammonia 44 MCMOL/L Vitamin B12 Level 951 PG/ML Folate 16.2 NG/ML Administered Medications Medications (Trade) Dose Ordered Sig/Jez Route PRN Reason Start Time Stop Time Status Last Admin Dose Admin Baclofen (Lioresal) 20 mg TID PO 02/02/17 09:00 02/07/17 17:25 Buspirone HCl (Buspar) 10 mg TID PO 02/02/17 09:00 02/07/17 17:25 Acetaminophen/ Hydrocodone Bitart (Maury 5-325 Mg) 1 tab TID PRN PO PAIN 02/02/17 03:15 02/08/17 05:23 Lactulose (Lactulose Liq) 30 ml TID PO 02/02/17 09:00 02/07/17 17:26 Propranolol HCl (Inderal) 10 mg Q12HR PO 02/02/17 09:00 02/07/17 20:53 Rifaximin (Xifaxan) 550 mg BID PO 02/02/17 09:00 02/07/17 20:53 Tamsulosin HCl (Flomax) 0.8 mg DAILY PO 02/02/17 09:00 02/07/17 08:18 Pregabalin (Lyrica) 300 mg TID PO 02/02/17 09:00 02/07/17 17:25 Sodium Chloride (NS Flush) 2 ml BID .XX 02/02/17 09:00 02/07/17 20:54 Morphine Sulfate (Morphine Inj) 2 mg Q2H PRN IV PAIN SCALE 6 TO 10 02/02/17 03:15 02/08/17 02:27 Pantoprazole Sodium (Protonix Inj) 40 mg BID IV 02/02/17 09:00 02/07/17 20:53 Chlorhexidine Gluconate (Chlorhexidine 2% Cloth) Taper DAILY@04 TOP 02/02/17 04:00 01/29/18 03:59 02/04/17 04:00 Senna/Docusate Sodium (Sarahi-Colace) 1 tab BID PO 02/02/17 09:00 02/06/17 08:13 Insulin Aspart (NovoLOG SUPPLEMENTAL SCALE) 1 Q6H SQ 02/02/17 13:00 02/08/17 06:04 Objective Remarks GENERAL: Middle aged male, sitting up in bed in [facility]. SKIN: Warm and dry. HEAD: Normocephalic. EYES: No injection or drainage. NECK: Supple, trachea midline. CARDIOVASCULAR: Regular rate and rhythm RESPIRATORY: Breath sounds equal bilaterally. No accessory muscle use. GASTROINTESTINAL: Abdomen distended. EXTREMITIES: No cyanosis NEUROLOGICAL: awake and alert, normal speech. moving all extremities. Assessment/Plan Problem List: (1) Pancytopenia Status: Acute Plan: 02/08: iron studies show low iron, will give iron sucrose 200mg IV x 3 bags while inpatient. fs faxed to npr for follow up once discharged. d/w patient and KIMANI Hector --chronic thrombocytopenia dating back to 2003 ---iron studies indicate iron deficiency anemia --will monitor CBC as an outpatient--> may need bone marrow aspirate and biopsy to evaluate for any underlying bone marrow pathology. -- ultrasound of the liver showed hepatosplenomegaly Assessment 56y/o male with pancytopenia. h/o alcoholism and hepatitis C as well as cirrhosis of the liver with esophageal varices and intermittent chronic GI bleeding. Attending Statement Denies any new complaints Feels better B12 and Folate are normal Iron studies show iron deficiency anemia iron infusion times three days Monitor CBC The exam, history, and the medical decision-making described in the above note were completed with the assistance of the mid-level provider. I reviewed and agree with the findings presented. I attest that I had a [id number] encounter with the patient on the same day, and personally performed and documented my assessment and findings in the medical record. Charley Solomon Feb 08, 2017 09:03 Yumiko Galvan MD Feb 08, 2017 23:57
--- NOTE | 2017-02-08 09:07 | HHI.PR ---
Subjective Subjective Remarks awake, oriented x 3, abd. more distended today no hematemesis no rectal bleeding tolerating diet well, no n/v no cp no sob Review of Systems Constitutional Constitutional Remarks 12 point ros completed, negative except as noted above Vitals/Results Intake & Output 02/07/17 02/07/17 02/08/17 15:00 23:00 07:00 Intake Total 1400 ml 480 ml 120 ml Balance 1400 ml 480 ml 120 ml Intake Oral 1400 ml 480 ml 120 ml # Voids 4 5 2 # Bowel Movements 2 0 0 Vital Signs Vital Signs Date Time Temp Pulse Resp B/P Pulse Ox O2 Delivery O2 Flow Rate FiO2 02/08/17 04:00 97.9 58 16 167/83 96 02/08/17 00:00 97.7 55 16 136/70 98 02/08/17 00:00 Room Air 02/07/17 20:00 97.5 54 16 134/71 99 02/07/17 20:00 69 02/07/17 19:45 Room Air 02/07/17 16:00 97.8 57 18 154/73 100 02/07/17 12:00 97.3 59 18 128/74 100 02/07/17 11:16 98 Room Air CBC/BMP: 02/08/17 0707 02/08/17 0707 Lab Results Laboratory Tests Test 02/08/17 07:07 White Blood Count 2.3 TH/MM3 Red Blood Count 2.91 MIL/MM3 Hemoglobin 8.8 GM/DL Hematocrit 26.0 % Mean Corpuscular Volume 89.5 FL Mean Corpuscular Hemoglobin 30.4 PG Mean Corpuscular Hemoglobin 34.0 % Concent Red Cell Distribution Width 16.0 % Platelet Count 68 TH/MM3 Mean Platelet Volume 10.0 FL Sodium Level 136 MEQ/L Potassium Level 3.9 MEQ/L Chloride Level 104 MEQ/L Carbon Dioxide Level 24.4 MEQ/L Anion Gap 8 MEQ/L Blood Urea Nitrogen 6 MG/DL Creatinine 0.67 MG/DL Estimat Glomerular Filtration 122 ML/MIN Rate Random Glucose 136 MG/DL Calcium Level 7.9 MG/DL Iron Level 28 MCG/DL Total Iron Binding Capacity 349 MCG/DL Percent Iron Saturation 8.0 % Ferritin 28 NG/ML Ammonia 44 MCMOL/L Vitamin B12 Level 951 PG/ML Folate 16.2 NG/ML Physical Exam General General Appearance: Well Developed, Well Nourished, No Acute Distress, Comfortable Eyes Eye Exam: Pupils Equal, Pupils Reactive Ears & Nose Ears & Nose Exam: Nasal Mucosa [place] Throat Throat Exam: Oral Mucosa [place] & Moist Neck Neck Exam: Neck Supple, Trachea Midline Pulmonary Resp Exam: No Distress, Decreased Bases Cardiology CV Exam: Regular Gastrointestinal/Abdomen GI Exam: Bowel Sounds Present, Distended Musculoskeletal MS Exam: Joints Intact Integumentary Skin Exam: Warm, Dry Extremeties Extremities Exam: Pedal Pulses Palpable, Trace Edema Neurologic Neuro Exam: Alert, Awake, Oriented, Speech Clear, Moving All Extremities, No Focal Deficits Psychiatric Psych Exam: Appropriate Responses VTE Prophylaxis VTE Prophylaxis Device: SCDs PUD Prophylasis PUD Prophylaxis: Protonix Assessment/Plan Assessment/Plan 1. GI bleed with esophageal varices 2. Portal hypertension 3. History of hep-C 4. Liver cirrhosis 5. Thrombocytopenia 6. Anemia severe secondary to his GI bleed which is now controlled. 7. Hyperkalemia 8. Anemia severe secondary to his GI bleed which is now controlled. 9. Hyperkalemia which is now controlled. 10. Anemia secondary to his chronic disease as well as acute blood loss. 11. Diabetes mellitus type 2 12. Hypertension Plan GI bleed s/p varices 6/7-S/P EGD, varices x 4 with active bleeding, post banding post PRBC/FFP/plat. transfusion, HH stable 8.8/26 ammonia trending down, 43, continue Lactulose appreciate GI input abd. distended, US abd. inc ascites will order CT guided paracentesis for today Pancytopenia WBC 2.3, plat. 68 appreciate heme input low iron stores despite recent PRBC transfusion d/w heme, will give iron today and pt. can f/u as OP Diabetes type 2 continue with Accu-Cheks with sliding scale HTN stable continue home meds PPI for GI prophylaxis SCD for DVT prophylaxis CM for dc planning, HHC ? today or tomorrow if no problems after paracentesis D/W RN D/W Dr. Vargas D/W pt. This pt. was seen by myself and Dr. Vargas, this note is written on his behalf. Joanna Herrera Feb 08, 2017 09:07
[2017-02-08] MEDS ORDERED: ALBUMIN HUMAN 25% 25 GM/100 ML BAGP IV ONE (10:45)
[2017-02-08] MEDS: IRON SUCROSE INJ 200 MG in SODIUM CHLORIDE 0.9% INJ 100 ML IV SCH (11:56)
[2017-02-08 12:12] LABS: PERITONEAL HISTIOCYTES 19 %; PERITONEAL LYMPHS 15 %; PERITONEAL MESOTHELIAL 15 %; PERITONEAL MONOS 47 %; PERITONEAL POLYS(SEGS) 4 %; PERITONEAL WBC 230 /MM3 (0-10)
--- NOTE | 2017-02-08 12:30 | RADRPT ---
EXAM DATE/TIME: 02/08/2017 10:07 [place] COMPARISON: US GUIDED ABD PARACENTESIS, December 18, 2016, 14:11. INDICATIONS : Ascites. MEDICAL HISTORY : Hypercholesterolemia. Hypertension. Hepatitis C. Diabetic neuropathy. Ulcer. Ascites. Hematemesis. Di abetes. ESBL. Anticoagulant therapy, Aspirin. SURGICAL HISTORY : Tonsillectomy. Appendectomy. Paracentesis. Right clavical surgery with metal. Blood transfuison. ENCOUNTER: Subsequent ACUITY: 1 month PAIN SCORE: 3/10 LOCATION: Right lower quadrant FLUID: Total volume of 4,900 cc of clear, yellow fluid was removed. Fluid was sent to lab for ordered studies. Post procedure scanning reveals no hematoma or other complication. TECHNIQUE: 1. Ultrasound guidance for abdominal paracentesis. 2. Paracentesis. The risks, benefits, and alternatives to ultrasound guided paracentesis were explained to the patient in detail including the risk of bleeding and infection. Written and verbal informed consent was obt ained. With the patient on the ultrasound table, ultrasound imaging was used to select the most appropriate approach for paracentesis. Overlying skin was prepped and draped in the usual sterile fashion and wi th a local anesthetic, a dermatotomy was made with an 11 blade scalpel. A 6 [place] [employer] ca theter was introduced into the peritoneal cavity and fluid was collected. The patient tolerated the procedure well and left the ultrasound suite in stable condition. CONCLUSION: Uncomplicated ultrasound guided paracentesis. Long Bella MD FACR on February 08, 2017 at 12:27 Board Certified Radiologist. This report was verified electronically.
--- NOTE | 2017-02-08 12:57 | HHI.GIFU ---
Subjective Remarks Up in chair, states he feels good. Tolerating diet. C/O back pain and leg pain related to neuropathy, but denies any abdominal pain. Objective Vitals I&O Vital Signs Date Time Temp Pulse Resp B/P Pulse Ox O2 Delivery O2 Flow Rate FiO2 02/08/17 11:28 97.8 59 16 154/83 100 02/08/17 11:16 97.8 60 16 142/79 100 02/08/17 10:16 98.3 55 16 154/77 100 02/08/17 08:00 97.5 55 20 171/79 100 02/08/17 07:15 Room Air 02/08/17 04:00 97.9 58 16 167/83 96 02/08/17 00:00 97.7 55 16 136/70 98 02/08/17 00:00 Room Air 02/07/17 20:00 97.5 54 16 134/71 99 02/07/17 20:00 69 02/07/17 19:45 Room Air 02/07/17 16:00 97.8 57 18 154/73 100 I/O 02/07/17 02/07/17 02/07/17 02/08/17 02/08/17 02/08/17 07:00 15:00 23:00 07:00 15:00 23:00 Intake Total 360 ml 1400 ml 480 ml 120 ml Balance 360 ml 1400 ml 480 ml 120 ml Intake Oral 360 ml 1400 ml 480 ml 120 ml # Voids 3 4 5 2 # Bowel Movements 2 2 0 0 Laboratory Laboratory Tests Test 02/08/17 02/08/17 07:07 10:35 White Blood Count 2.3 Red Blood Count 2.91 Hemoglobin 8.8 Hematocrit 26.0 Mean Corpuscular Volume 89.5 Mean Corpuscular Hemoglobin 30.4 Mean Corpuscular Hemoglobin 34.0 Concent Red Cell Distribution Width 16.0 Platelet Count 68 Mean Platelet Volume 10.0 Sodium Level 136 Potassium Level 3.9 Chloride Level 104 Carbon Dioxide Level 24.4 Anion Gap 8 Blood Urea Nitrogen 6 Creatinine 0.67 Estimat Glomerular Filtration 122 Rate Random Glucose 136 Calcium Level 7.9 Iron Level 28 Total Iron Binding Capacity 349 Percent Iron Saturation 8.0 Ferritin 28 Ammonia 44 Vitamin B12 Level 951 Folate 16.2 Peritoneal Fluid WBC 230 Peritoneal Fluid RBC 74 Peritoneal Fluid Neutrophils 4 Peritoneal Fluid Lymphocytes 15 Peritoneal Fluid Monocytes 47 Peritoneal Fluid Mesothelial 15 Cells Peritoneal Fluid Histiocytes 19 Peritoneal Fluid Total Protein 1.1 Peritoneal Fluid Albumin 0.5 Peritoneal Fluid LDH 45 Peritoneal Fluid Glucose 171 Date/Time Procedure Status Source Growth 02/08/17 10:35 Gram Stain Received Fluid Peritoneal Fluid Pending 02/08/17 10:35 Body Fluid Culture Received Fluid Peritoneal Fluid Pending Imaging Last Impressions Cyst Biopsy Asp-Paracentesis US 02/08/17 0000 Signed Impressions: Service Date/Time: Wednesday, February 08, 2017 10:07 - CONCLUSION: Uncomplicated ultrasound guided paracentesis. Long Bella MD FACR Abdomen Ultrasound 02/07/17 0000 Signed Impressions: Service Date/Time: Tuesday, February 07, 2017 14:18 - CONCLUSION: Moderate volume ascites, increased. Raúl Greene MD Chest X-Ray 02/02/17 0232 Signed Impressions: Service Date/Time: Thursday, February 02, 2017 02:54 - CONCLUSION: Normal examination. The right clavicle has been previously fixated. Landon Fonseca MD Liver Ultrasound 02/02/17 0000 Signed Impressions: Service Date/Time: Thursday, February 02, 2017 09:32 - CONCLUSION: Abnormal ultrasound similar to prior examinations with hepatosplenomegaly, heterogeneous echotexture of the liver characteristic of cirrhosis, ascites, and sludge- filled gallbladder. Raad Pulido MD Physical Exam HEENT:Normocephalic; atraumatic; no jaundice. CHEST: CTA CARDIAC: RRR ABDOMEN: abd mildly distended with ascites, nontender; hepatomegaly bowel sounds are present in all four quadrants. EXTREMITIES: Trace BLE edema SKIN: ecchymotic Assessment and Plan Plan ASSESSMENT - GIB, hematemesis. S/P EGD (02/03/17)---> : 1. Blood in the entire esophagus 2. Blood from recent bleeding Grade 4 esophageal varices, 4 bands applied with total control 3. Normal duodenal mucosa in the bulb and second portion of the duodenum 4. Retroflexed views revealed blood covering the fundus. No active bleeding. HH 8.8/.0. Inderal. - Esophageal varices, grade 4. S/P banding x 4 with total control of bleeding. Inderal. - Iron Deficiency Anemia, secondary to blood loss. S/P 7 units PRBC, FFP 2 units , Platelets 1. HH 8.8/.0. PPI, Iron transfusions. - Ascites. S/P US guided paracentesis (02/08/17)---> 4,900cc removed. Add spironolactone, lasix. - Hepatic Encephalopathy. Ammonia 44, A/Ox 3. Lactulose, Xifaxan. - Hx cirrhosis secondary to HCV/ETOH, portal HTN, varices. LFT in am. PLAN - Low salt diet - Add Spironolactone - Add Lasix - Cont. PPI - Cont. Lactulose - Cont. Propranolol - Cont. Xifaxan - CBC, LFT in am - Monitor HH - Transfuse as needed - Hematology following, iron transfusions - Await fluid studies from paracentesis - Supportive care - EGD 4 weeks - Pt seen and examined by Dr. Maciel and myself and this note is written on his behalf Yumiko Vale Feb 08, 2017 12:57
[2017-02-08] MEDS: FUROSEMIDE 40 MG TAB PO SCH (14:50)
[2017-02-08] MEDS: SPIRONOLACTONE 50 MG TAB PO SCH (14:50)
[2017-02-09] MEDS: INSULIN ASPART SUPPLEMENTAL SCALE SQ SCH ×3 (01:52→12:19)
[2017-02-09] MEDS: MORPHINE SULFATE 4 MG/ML INJ IV PRN ×4 (01:56→12:37)
[2017-02-09] MEDS: CHLORHEXIDINE GLUCONATE 2 % 1 PACK (2 CLOTHS) TOP SCH (04:00)
[2017-02-09 04:27] VITALS: BP 125/61; PULSE 53; RESP 16; TEMP 97.9; O2SAT 97
[2017-02-09] MEDS: ACETAMINOPHEN/HYDROcodone 325 MG/5 MG TAB PO PRN (05:09)
[2017-02-09 05:53] LABS: HEMATOCRIT 27.1 % (39.0-51.0); MEAN CELL VOLUME 89.4 FL (80.0-100.0); MEAN CORPUSCULAR HGB CONC 33.6 % (32.0-36.0); PLATELET COUNT 72 TH/MM3 (150-450); RED BLOOD COUNT 3.03 MIL/MM3 (4.50-5.90); RED CELL DISTRIBUTION WIDTH 16.4 % (11.6-17.2); WHITE BLOOD COUNT 2.4 TH/MM3 (4.0-11.0)
[2017-02-09 05:57] LABS: REVIEW FLAG FINAL
[2017-02-09 06:17] LABS: BICARBONATE 24.2 MEQ/L (21.0-32.0); POTASSIUM 3.8 MEQ/L (3.5-5.1)
[2017-02-09 08:00] VITALS: BP 154/74; PULSE 52; PULSE 66; RESP 18; TEMP 98.2; O2SAT 99
--- NOTE | 2017-02-09 08:57 | HHI.PR ---
Subjective Subjective Remarks awake, oriented x 3, ambulating in room had paracentesis yesterday, approx 4000 drained feels better no cp no sob anxious to go home states he has medications, doesn't need refills Review of Systems Constitutional Constitutional Remarks 12 point ros completed, negative except as noted above Vitals/Results Intake & Output 02/08/17 02/08/17 02/09/17 15:00 23:00 07:00 Intake Total 101 ml 480 ml 480 ml Balance 101 ml 480 ml 480 ml Intake Oral 480 ml 480 ml IV Total 101 ml # Voids 5 2 # Bowel Movements 4 2 Vital Signs Vital Signs Date Time Temp Pulse Resp B/P Pulse Ox O2 Delivery O2 Flow Rate FiO2 02/09/17 04:27 97.9 53 16 125/61 97 02/08/17 23:15 98.3 62 16 107/59 96 02/08/17 20:31 61 02/08/17 20:15 97.7 56 16 143/63 100 02/08/17 19:45 Room Air 02/08/17 16:00 97.0 54 20 141/70 100 02/08/17 11:28 97.8 59 16 154/83 100 02/08/17 11:16 97.8 60 16 142/79 100 02/08/17 10:16 98.3 55 16 154/77 100 CBC/BMP: 02/09/17 0534 02/09/17 0534 Lab Results Laboratory Tests Test 02/08/17 02/09/17 10:35 05:34 Peritoneal Fluid WBC 230 /MM3 Peritoneal Fluid RBC 74 /MM3 Peritoneal Fluid Neutrophils 4 % Peritoneal Fluid Lymphocytes 15 % Peritoneal Fluid Monocytes 47 % Peritoneal Fluid Mesothelial 15 % Cells Peritoneal Fluid Histiocytes 19 % Peritoneal Fluid Total Protein 1.1 GM/DL Peritoneal Fluid Albumin 0.5 G/DL Peritoneal Fluid LDH 45 U/L Peritoneal Fluid Glucose 171 MG/DL White Blood Count 2.4 TH/MM3 Red Blood Count 3.03 MIL/MM3 Hemoglobin 9.1 GM/DL Hematocrit 27.1 % Mean Corpuscular Volume 89.4 FL Mean Corpuscular Hemoglobin 30.0 PG Mean Corpuscular Hemoglobin 33.6 % Concent Red Cell Distribution Width 16.4 % Platelet Count 72 TH/MM3 Mean Platelet Volume 10.4 FL Sodium Level 136 MEQ/L Potassium Level 3.8 MEQ/L Chloride Level 103 MEQ/L Carbon Dioxide Level 24.2 MEQ/L Anion Gap 9 MEQ/L Blood Urea Nitrogen 7 MG/DL Creatinine 0.66 MG/DL Estimat Glomerular Filtration 124 ML/MIN Rate Random Glucose 145 MG/DL Calcium Level 8.2 MG/DL Microbiology Microbiology 02/08/17 Gram Stain - Final, Resulted 02/08/17 Body Fluid Culture, Resulted Pending Physical Exam General General Appearance: Well Developed, Well Nourished, No Acute Distress, Comfortable Eyes Eye Exam: Pupils Equal, Pupils Reactive Ears & Nose Ears & Nose Exam: Nasal Mucosa [employer] Throat Throat Exam: Oral Mucosa [employer] & Moist Neck Neck Exam: Neck Supple, Trachea Midline Pulmonary Resp Exam: No Distress, Decreased Bases Cardiology CV Exam: Regular Gastrointestinal/Abdomen GI Exam: Non-Tender, Bowel Sounds Present, Distended (less distended and firm ) Musculoskeletal MS Exam: Joints Intact Integumentary Skin Exam: Warm, Dry Extremeties Extremities Exam: Pedal Pulses Palpable, Trace Edema Neurologic Neuro Exam: Alert, Awake, Oriented, Speech Clear, Moving All Extremities, No Focal Deficits Psychiatric Psych Exam: Appropriate Responses VTE Prophylaxis VTE Prophylaxis Device: SCDs PUD Prophylasis PUD Prophylaxis: Protonix Assessment/Plan Assessment/Plan 1. GI bleed with esophageal varices 2. Portal hypertension 3. History of hep-C 4. Liver cirrhosis 5. Thrombocytopenia 6. Anemia severe secondary to his GI bleed which is now controlled. 7. Hyperkalemia 8. Anemia severe secondary to his GI bleed which is now controlled. 9. Hyperkalemia which is now controlled. 10. Anemia secondary to his chronic disease as well as acute blood loss. 11. Diabetes mellitus type 2 12. Hypertension Plan GI bleed s/p varices 02/03-S/P EGD, varices x 4 with active bleeding, post banding post PRBC/FFP/plat. ammonia trending down, 43, continue Lactulose appreciate GI input abd. distended, US abd. inc ascites S/P CT guided paracentesis 02/08, 4900 cc drained, cytology pending restarted on Aldactone and Lasix per GI Needs f/u GI for EGD in 4 weeks Stable, abd. less distended, HH 9.1/27.1 Pancytopenia WBC 2.4, plat. 72 appreciate heme input low iron stores despite recent PRBC transfusion on IV sucrose infusion, started 02/08 Diabetes type 2 continue with Accu-Cheks with sliding scale HTN stable continue home meds PPI for GI prophylaxis SCD for DVT prophylaxis CM for dc planning, HHC Plan to dc today, stable for dc. F/U Heme, GI, PCP Discussed medication compliance Diet-heart healthy Activity-as tolerated D/W RN D/W Dr. Vargas D/W pt. D/W CM This pt. was seen by myself and Dr. Vargas, this note is written on his behalf. Joanna Herrera Feb 09, 2017 08:57
--- NOTE | 2017-02-09 08:57 | HHI.FF ---
Face to Face Verification Diagnosis: (1) UGIB (upper gastrointestinal bleed) (2) Esophageal varices (3) History of alcohol abuse (4) Ascites (5) Pancytopenia Home Health Nursing Order: Medical education Signs/symptoms of disease process Nursing assessment with vital signs I have seen patient Azael Arzola on 02/09/17. My clinical findings support the need for the requested home health care services because: Deconditioned w/ increased weakness Med compliance is questionable Need for psychosocial assistance I certify that my clinical findings support that this patient is homebound because: Impaired cognitive ability/safety Need for psychosocial assistance Joanna Herrera [facility] Feb 09, 2017 08:57
[2017-02-09] MEDS ORDERED: FURO20TA PO (08:59)
--- NOTE | 2017-02-09 08:59 | HHI.DCPOC ---
Discharge Care Plan Diagnosis: (1) GI bleed (2) Pancytopenia (3) Ascites (4) Esophageal varices Your Health Problems Are: Bleeding Tendency Irregular Bowel Function Goals to Promote Your Health * To prevent worsening of your condition and complications * To maintain your health at the optimal level Directions to Meet Your Goals Take your medications as prescribed Follow your dietary instruction Follow activity as directed Keep your appointments as scheduled Take your immunizations and boosters as scheduled If your symptoms worsen call your PCP, if no PCP go to Urgent Care Center or Emergency Room Smoking is Dangerous to Your Health. Avoid second hand smoke Call the 24-hour hour crisis hotline for domestic abuse at Joanna Herrera. [facility] Feb 09, 2017 08:59
[2017-02-09] MEDS: DOCUSATE SODIUM 50 MG/SENNA 8.6 MG TAB PO SCH (09:00)
[2017-02-09] MEDS: RIFAXIMIN 550 MG TAB PO SCH (09:00)
[2017-02-09] MEDS: TAMSULOSIN HCL 0.4 MG CAP PO SCH (09:37)
[2017-02-09] MEDS: LACTULOSE SYRUP 20 GM/30 ML CUP PO SCH ×2 (09:37→12:17)
[2017-02-09] MEDS: busPIRone HCL 10 MG TAB PO SCH ×2 (09:37→12:17)
[2017-02-09] MEDS: PROPRANOLOL HCL 10 MG TAB PO SCH (09:37)
[2017-02-09] MEDS: FUROSEMIDE 40 MG TAB PO SCH (09:37)
[2017-02-09] MEDS: SPIRONOLACTONE 50 MG TAB PO SCH (09:38)
[2017-02-09] MEDS: BACLOFEN 20 MG TAB PO SCH ×2 (09:38→12:17)
[2017-02-09] MEDS: PREGABALIN 75 MG CAP PO SCH ×2 (09:38→12:17)
[2017-02-09] MEDS: IRON SUCROSE INJ 200 MG in SODIUM CHLORIDE 0.9% INJ 100 ML IV SCH (09:41)
[2017-02-09] MEDS: SODIUM CHLORIDE 0.9% FLUSH 10 ML FLUSH SCH (09:41)
[2017-02-09] MEDS: PANTOPRAZOLE SODIUM 40 MG VIAL IV SCH (09:42)
--- NOTE | 2017-02-09 10:09 | PD.ONC.PN ---
Subjective Subjective Remarks Afebrile overnight. Patient resting in bed in nad. Ate breakfast this AM. Having bowel movements. Denies pain. Objective Data Date Time Temp Pulse Resp B/P Pulse Ox O2 Delivery O2 Flow Rate FiO2 02/09/17 08:00 98.2 66 18 154/74 99 02/09/17 04:27 97.9 53 16 125/61 97 02/08/17 23:15 98.3 62 16 107/59 96 02/08/17 20:31 61 02/08/17 20:15 97.7 56 16 143/63 100 02/08/17 19:45 Room Air 02/08/17 16:00 97.0 54 20 141/70 100 02/08/17 11:28 97.8 59 16 154/83 100 02/08/17 11:16 97.8 60 16 142/79 100 02/08/17 10:16 98.3 55 16 154/77 100 02/09/17 02/09/17 02/09/17 07:00 15:00 23:00 Intake Total 480 ml Balance 480 ml Result Diagram: 02/09/17 0534 02/09/17 0534 Laboratory Results Laboratory Tests Test 02/08/17 02/09/17 10:35 05:34 Peritoneal Fluid WBC 230 /MM3 Peritoneal Fluid RBC 74 /MM3 Peritoneal Fluid Neutrophils 4 % Peritoneal Fluid Lymphocytes 15 % Peritoneal Fluid Monocytes 47 % Peritoneal Fluid Mesothelial 15 % Cells Peritoneal Fluid Histiocytes 19 % Peritoneal Fluid Total Protein 1.1 GM/DL Peritoneal Fluid Albumin 0.5 G/DL Peritoneal Fluid LDH 45 U/L Peritoneal Fluid Glucose 171 MG/DL White Blood Count 2.4 TH/MM3 Red Blood Count 3.03 MIL/MM3 Hemoglobin 9.1 GM/DL Hematocrit 27.1 % Mean Corpuscular Volume 89.4 FL Mean Corpuscular Hemoglobin 30.0 PG Mean Corpuscular Hemoglobin 33.6 % Concent Red Cell Distribution Width 16.4 % Platelet Count 72 TH/MM3 Mean Platelet Volume 10.4 FL Sodium Level 136 MEQ/L Potassium Level 3.8 MEQ/L Chloride Level 103 MEQ/L Carbon Dioxide Level 24.2 MEQ/L Anion Gap 9 MEQ/L Blood Urea Nitrogen 7 MG/DL Creatinine 0.66 MG/DL Estimat Glomerular Filtration 124 ML/MIN Rate Random Glucose 145 MG/DL Calcium Level 8.2 MG/DL Culture Results Microbiology Date/Time Procedure Status Source Growth 02/08/17 10:35 Gram Stain - Final Resulted Fluid Peritoneal Fluid 02/08/17 10:35 Body Fluid Culture Resulted Fluid Peritoneal Fluid Pending Administered Medications Medications (Trade) Dose Ordered Sig/Jez Route PRN Reason Start Time Stop Time Status Last Admin Dose Admin Baclofen (Lioresal) 20 mg TID PO 02/02/17 09:00 02/09/17 09:38 Buspirone HCl (Buspar) 10 mg TID PO 02/02/17 09:00 02/09/17 09:37 Acetaminophen/ Hydrocodone Bitart ([place] 5-325 Mg) 1 tab TID PRN PO PAIN 02/02/17 03:15 02/09/17 05:09 Lactulose (Lactulose Liq) 30 ml TID PO 02/02/17 09:00 02/09/17 09:37 Propranolol HCl (Inderal) 10 mg Q12HR PO 02/02/17 09:00 02/09/17 09:37 Rifaximin (Xifaxan) 550 mg BID PO 02/02/17 09:00 02/08/17 20:28 Tamsulosin HCl (Flomax) 0.8 mg DAILY PO 02/02/17 09:00 02/09/17 09:37 Pregabalin (Lyrica) 300 mg TID PO 02/02/17 09:00 02/09/17 09:38 Sodium Chloride (NS Flush) 2 ml BID .XX 02/02/17 09:00 02/09/17 09:41 Morphine Sulfate (Morphine Inj) 2 mg Q2H PRN IV PAIN SCALE 6 TO 10 02/02/17 03:15 02/09/17 09:47 Pantoprazole Sodium (Protonix Inj) 40 mg BID IV 02/02/17 09:00 02/09/17 09:42 Chlorhexidine Gluconate (Chlorhexidine 2% Cloth) Taper DAILY@04 TOP 02/02/17 04:00 01/29/18 03:59 02/04/17 04:00 Senna/Docusate Sodium (Sarahi-Colace) 1 tab BID PO 02/02/17 09:00 02/06/17 08:13 Insulin Aspart 1 1 Q6H SQ 02/02/17 13:00 02/09/17 01:52 Iron Sucrose/ Sodium Chloride (Venofer Inj/NS Inj) 110 ml @ 110 mls/hr DAILY IV 02/08/17 10:00 02/10/17 09:59 02/09/17 09:41 Spironolactone (Aldactone) 50 mg DAILY PO 02/08/17 14:00 02/09/17 09:38 Furosemide (Lasix) 40 mg DAILY PO 02/08/17 14:00 02/09/17 09:37 Objective Remarks GENERAL: chronically ill appearing male, upright in bed in nad. SKIN: Warm and dry. HEAD: Normocephalic. EYES: No injection or drainage. NECK: Supple, trachea midline. CARDIOVASCULAR: Regular rate and rhythm RESPIRATORY: Breath sounds equal bilaterally. No accessory muscle use. GASTROINTESTINAL: Abdomen distended. EXTREMITIES: No cyanosis NEUROLOGICAL: awake and alert. moving extremities. normal speech. Assessment/Plan Problem List: (1) Pancytopenia Status: Acute Plan: 02/09: continue IV iron. monitor blood counts. will need bone marrow biopsy outpatient. --chronic thrombocytopenia dating back to 2003 ---iron studies indicate iron deficiency anemia --will monitor CBC as an outpatient--> may need bone marrow aspirate and biopsy to evaluate for any underlying bone marrow pathology. -- ultrasound of the liver showed hepatosplenomegaly -- fs faxed to npr Assessment 56y/o male with pancytopenia. h/o alcoholism and hepatitis C as well as cirrhosis of the liver with esophageal varices and intermittent chronic GI bleeding. Attending Statement Denies any new complaint Feels better Pancytopenia persist We'll need bone marrow biopsy as an outpatient Discuss with Dr. Gagandeep Gavin to discharge Follow up as an outpatient The exam, history, and the medical decision-making described in the above note were completed with the assistance of the mid-level provider. I reviewed and agree with the findings presented. I attest that I had a [id number] encounter with the patient on the same day, and personally performed and documented my assessment and findings in the medical record. Charley Solomon Feb 09, 2017 10:09 Yumiko Galvan MD Feb 10, 2017 01:46
[2017-02-09 12:00] VITALS: BP 131/69; PULSE 53; RESP 18; TEMP 97.9; O2SAT 99
--- NOTE | 2017-02-09 14:23 | HHI.GIFU ---
Subjective Remarks Resting in bed. Excited to go home today. Abdomen seems more distended today, although soft and nontender. Urine tox screen and labs ordered this am have not been drawn yet per nurse and patient. (Yumiko Vale) Objective Vitals I&O Vital Signs Date Time Temp Pulse Resp B/P Pulse Ox O2 Delivery O2 Flow Rate FiO2 02/09/17 12:00 97.9 53 18 131/69 99 02/09/17 08:00 98.2 66 18 154/74 99 02/09/17 07:15 Room Air 02/09/17 04:27 97.9 53 16 125/61 97 02/08/17 23:15 98.3 62 16 107/59 96 02/08/17 20:31 61 02/08/17 20:15 97.7 56 16 143/63 100 02/08/17 19:45 Room Air 02/08/17 16:00 97.0 54 20 141/70 100 I/O 02/08/17 02/08/17 02/08/17 02/09/17 02/09/17 02/09/17 07:00 15:00 23:00 07:00 15:00 23:00 Intake Total 120 ml 101 ml 480 ml 480 ml Balance 120 ml 101 ml 480 ml 480 ml Intake Oral 120 ml 480 ml 480 ml IV Total 101 ml # Voids 2 5 2 # Bowel Movements 0 4 2 Laboratory Laboratory Tests Test 02/09/17 05:34 White Blood Count 2.4 Red Blood Count 3.03 Hemoglobin 9.1 Hematocrit 27.1 Mean Corpuscular Volume 89.4 Mean Corpuscular Hemoglobin 30.0 Mean Corpuscular Hemoglobin 33.6 Concent Red Cell Distribution Width 16.4 Platelet Count 72 Mean Platelet Volume 10.4 Sodium Level 136 Potassium Level 3.8 Chloride Level 103 Carbon Dioxide Level 24.2 Anion Gap 9 Blood Urea Nitrogen 7 Creatinine 0.66 Estimat Glomerular Filtration 124 Rate Random Glucose 145 Calcium Level 8.2 Date/Time Procedure Status Source Growth 02/08/17 10:35 Gram Stain - Final Resulted Fluid Peritoneal Fluid 02/08/17 10:35 Body Fluid Culture - Preliminary Resulted Fluid Peritoneal Fluid NO GROWTH IN 24 HOURS. Imaging Last Impressions Cyst Biopsy Asp-Paracentesis US 02/08/17 0000 Signed Impressions: Service Date/Time: Wednesday, February 08, 2017 10:07 - CONCLUSION: Uncomplicated ultrasound guided paracentesis. Long Bella MD FACR Abdomen Ultrasound 02/07/17 0000 Signed Impressions: Service Date/Time: Tuesday, February 07, 2017 14:18 - CONCLUSION: Moderate volume ascites, increased. Raúl Greene MD Chest X-Ray 02/02/17 0232 Signed Impressions: Service Date/Time: Thursday, February 02, 2017 02:54 - CONCLUSION: Normal examination. The right clavicle has been previously fixated. Landon Fonseca MD Liver Ultrasound 02/02/17 0000 Signed Impressions: Service Date/Time: Thursday, February 02, 2017 09:32 - CONCLUSION: Abnormal ultrasound similar to prior examinations with hepatosplenomegaly, heterogeneous echotexture of the liver characteristic of cirrhosis, ascites, and sludge- filled gallbladder. Raad Pulido MD Physical Exam HEENT:Normocephalic; atraumatic; no jaundice. CHEST: CTA CARDIAC: RRR ABDOMEN: abd mildly distended with ascites- slightly more than yesterday, nontender; hepatomegaly bowel sounds are present in all four quadrants. EXTREMITIES: Trace BLE edema SKIN: ecchymotic (Vale,Yumiko Sonja [employer]CH[employer]IAN) Assessment and Plan Plan ASSESSMENT - GIB, hematemesis. S/P EGD (02/03/17)---> : 1. Blood in the entire esophagus 2. Blood from recent bleeding Grade 4 esophageal varices, 4 bands applied with total control 3. Normal duodenal mucosa in the bulb and second portion of the duodenum 4. Retroflexed views revealed blood covering the fundus. No active bleeding. HH 9.1/27.1. Inderal. - Esophageal varices, grade 4. S/P banding x 4 with total control of bleeding. Inderal. - Iron Deficiency Anemia, secondary to blood loss. S/P 7 units PRBC, FFP 2 units , Platelets 1. HH 8.8/26.0. PPI, Iron transfusions. - Ascites. S/P US guided paracentesis (02/08/17)---> 4,900cc removed. Spironolactone, lasix. D/W patient importance of salt restriction, fluid restriction at home. - Hepatic Encephalopathy. Ammonia 44, A/Ox 3. Lactulose, Xifaxan. - Hx cirrhosis secondary to HCV/ETOH, portal HTN, varices. LFT in am. PLAN - Okay to d/c home from Gi standpoint after liver fibrosure, HCV genotype, and urine toxicology have been obtained- do not have to wait for results. Calling lab to have them come to draw now. Instructed nurse to get urine sample prior to d/c. - Low salt diet- D/W patient. - Cont. Spironolactone, Lasix - Cont. PPI - Cont. Lactulose - Cont. Propranolol - Cont. Xifaxan - Fibrosure, HCV Genotype, Urine toxicology 13 panel- needed to start Harvoni as outpatient- PRIOR TO D/C - BMP one week - EGD 4 weeks - FU CLIFF 2 weeks - Pt seen and examined by Dr. Maciel and myself and this note is written on his behalf (Yumiko Vale) Physician Comments Seen and examined, agree with russ HARMNA in progress to start Harvoni for Hep C. Gi fu upon dc. Thank you (Rhonda Maciel MD) Yumiko Vale Feb 09, 2017 14:23 Rhonda Maciel MD Feb 09, 2017 15:37
[2017-02-09] MEDS ORDERED: HYDR-3516 PO (14:35)
[2017-02-09] MEDS ORDERED: ALDA50TA2 PO (14:35)
[2017-02-09] MEDS ORDERED: LYRI75CA PO (14:35)
[2017-02-09 16:00] VITALS: BP 125/67; PULSE 60; RESP 18; TEMP 97.7; O2SAT 98
[2017-02-09 17:22] LABS: AMPHETAMINE, URINE NEG (NEG); BARBITURATES, URINE NEG (NEG); COCAINE, URINE NEG (NEG)
[2017-02-11 23:51] LABS: (LFP)ALT 28 U/L (9-46); A2 MACROGLOBULIN 277 mg/dL (106-279); FIBROSIS STAGE F4 (()); GGT(LFP) 87 U/L (3-85); HAPTOGLOBIN (LFP) LESS THAN 8 mg/dL (43-212); NECROINFLAMM ACT GRADE A1 (()); REFERENCE ID 1549930 (()); TOTAL BILIRUBIN (LFP) 1.1 mg/dL (0.2-1.2)
--- NOTE | 2017-02-12 18:25 | HHI.DS ---
Discharge Summary Admission Date Feb 02, 2017 at 03:05 Discharge Date: Feb 09, 2017 Admitting Diagnosis GI Bleed (1) UGIB (upper gastrointestinal bleed) (2) Esophageal varices (3) History of alcohol abuse (4) Pancytopenia (5) Diabetes 1.5, managed as type 2 (6) Ascites (7) Liver cirrhosis CBC/BMP: 02/09/17 0534 02/09/17 0534 Imaging Last Impressions Cyst Biopsy Asp-Paracentesis US 02/08/17 0000 Signed Impressions: Service Date/Time: Wednesday, February 08, 2017 10:07 - CONCLUSION: Uncomplicated ultrasound guided paracentesis. Long Bella MD FACR Abdomen Ultrasound 02/07/17 0000 Signed Impressions: Service Date/Time: Tuesday, February 07, 2017 14:18 - CONCLUSION: Moderate volume ascites, increased. Raúl Greene MD Chest X-Ray 02/02/17 0232 Signed Impressions: Service Date/Time: Thursday, February 02, 2017 02:54 - CONCLUSION: Normal examination. The right clavicle has been previously fixated. Landon Fonseca MD Liver Ultrasound 02/02/17 0000 Signed Impressions: Service Date/Time: Thursday, February 02, 2017 09:32 - CONCLUSION: Abnormal ultrasound similar to prior examinations with hepatosplenomegaly, heterogeneous echotexture of the liver characteristic of cirrhosis, ascites, and sludge- filled gallbladder. Raad Pulido MD Hospital Course This is a pleasant 56-year-old white male with a significant history of GI bleed, hepatitis C and liver cirrhosis. He has had multiple admissions to the emergency room, as well as the hospital for his complications to GI bleeding and varices. He also has had paracentesis done multiple times. The patient Was admitted to ICU, complain of dark stools. He was evaluated per GI and had an endoscopy which showed three varices two of which were bleeding. According to the notes, these were clipped and the patient was placed back on his medications which included his lactulose and pain management. He was stabilized, transferred to medical services. There was no active bleeding.He had a distended abdomen which was positive for a fluid wave. He denies any chest pain. No acute shortness of breath. No urinary symptoms. No headaches, possible mild weight gain, but no weight loss. Within the first 24 hours of admission, the patient received three units of blood, one unit of platelets and two units of fresh frozen plasma to stabilize his hemoglobin. DIAGNOSTIC DATA Currently the patient's white count is 4, RBC 2.99, hemoglobin 8.8, hematocrit 25.8, platelet count is 74. PT/INR is 1.3, fibrinogen 101. Chemistry sodium 142, potassium 3.7, chloride 108, carbon dioxide 26.3, BUN 25, random glucose 183, calcium 8.1. The patient's total protein is 5.5 and his albumin is 2. MRSA is not detected. Toxicology shows ethanol level at 5. Admission diagnoses were: 1. GI bleed with esophageal varices 2. Portal hypertension 3. History of hep-C 4. Liver cirrhosis 5. Thrombocytopenia 6. Anemia severe secondary to his GI bleed which is now controlled. 7. Hyperkalemia 8. Anemia severe secondary to his GI bleed which is now controlled. 9. Hyperkalemia which is now controlled. 10. Anemia secondary to his chronic disease as well as acute blood loss. 11. Diabetes mellitus type 2 12. Hypertension During the course of the hospitalization, the following took place: Pt. transferred out of ICU to floor GI bleed s/p varices 02/03-S/P EGD, varices x 4 with active bleeding, post banding post PRBC/FFP/plat. ammonia trending down, 43, continued Lactulose appreciated GI input abd. was noted distended, US abd. inc ascites S/P CT guided paracentesis 02/08, 4900 cc drained, cytology pending restarted on Aldactone and Lasix per GI Needs f/u GI for EGD in 4 weeks Stable, abd. less distended, HH 9.1/27.1 Pancytopenia WBC 2.4, plat. 72 consulted hematology. appreciate heme input, work up done. Low iron stores noted despite recent PRBC transfusion was given IV sucrose infusion, started 02/08 Heme recommended OP f/u for possible bone marrow bx Diabetes type 2 continued with Accu-Cheks with sliding scale HTN stable continued home meds PPI for GI prophylaxis SCD for DVT prophylaxis CM consult for dc planning, C HH stable, abd. less distended. Tolerating meds well Ammonia trending down Instructed to: F/U Heme, GI, PCP Discussed medication compliance Diet-heart healthy Activity-as tolerated Pt Condition on Discharge: Stable Discharge Disposition: Disch w/ Home Health Serv Discharge Instructions DIET: Follow Instructions for: Heart Healthy Diet Activities you can perform: Weight Bearing as Brianna Follow up Referrals: Gastroenterology - 2 Weeks with Rhonda Maciel MD Oncology - 3 Weeks PCP Follow-up SNF/[facility] with [facility] New Medications: Hydrocodone-Acetaminophen (Hydrocodone-Acetaminophen) 5-325 mg Tab 1 TAB PO TID PRN PAIN #30 TAB Pregabalin (Lyrica) 75 Mg Cap 300 MG PO TID RLS #30 CAP Spironolactone (Aldactone) 50 Mg Tab 50 MG PO BID ASCITES #60 TAB Changed Medications: Furosemide (Furosemide) 20 Mg Tab 40 MG PO DAILY ASCITES #30 Ref 1 TAB (Changed from: 20 MG) Continued Medications: Baclofen (Baclofen) 20 Mg Tab 20 MG PO TID Muscle Spasm Ref 0 TAB Buspirone (Buspirone) 10 Mg Tab 10 MG PO TID Anxiety Ref 0 TAB Calcium Carbonate (Antacid) (Tums) 500 Mg Chew 500 MG CHEW DAILY PRN HEARTBURN Ref 0 TAB Lactulose Liq (Lactulose Liq) 10 Gm/15 Ml Soln 30 ML PO TID hepatic enceph #90 ML Pantoprazole (Pantoprazole) 40 Mg Tab 40 MG PO DAILY gib #30 TAB Propranolol (Propranolol) 10 Mg Tab 10 MG PO Q12HR LIVER FAILURE #60 Ref 1 TAB Rifaximin (Xifaxan) 550 Mg Tab 550 MG PO BID HE #60 TAB Tamsulosin (Flomax) 0.4 Mg Cap 0.8 MG PO DAILY bph #60 CAP Discontinued Medications: Hydrocodone-Acetaminophen (Mary D) 5-325 mg Tab 1 TAB PO TID PRN PAIN #20 Ref 0 TAB Pregabalin (Lyrica) 300 Mg Cap 300 MG PO TID #90 Ref 0 CAP ([Spironolactone]) 25 MG TAB 25 MG PO BID@09,18 #60 Ref 0 TAB Joanna Herrera Feb 12, 2017 18:25 HTN stable continue home meds PPI for GI prophylaxis SCD for DVT prophylaxis CM for dc planning, C Plan to dc today, stable for dc. F/U Heme, GI, PCP Discussed medication compliance Diet-heart healthy Activity-as tolerated D/W RN D/W Dr. Vargas D/W pt. D/W CM This pt. was seen by myself and Dr. Vargas, this note is written on his behalf. Pt Condition on Discharge: Stable Discharge Disposition: Disch w/ Home Health Serv Discharge Instructions DIET: Follow Instructions for: Heart Healthy Diet Activities you can perform: Weight Bearing as Joanna Wilhelm Feb 12, 2017 18:25
[2017-02-16 09:28] LABS: OBMETHADONE UR NEG (NEG); PHENCYCLIDINE URINE NEG (NEG)
[2017-02-16 09:29] LABS: BATH SALTS (MDPV) UR NEG (NEG); ECSTASY (MDMA) UR NEG (NEG); GABAPENTIN UR NEG (NEG); HEROIN (6-ACETYLMORPHINE) UR NEG (NEG); HYDROMORPHONE U NEG (NEG); K2 SPICE UR NEG (NEG); OXYCODONE (PERCODAN) NEG (NEG)
== END 2017-02-09 16:27 | disposition home health service (06) | DRG 369 ==
LOC: NEPC 02:18 → NEDA 03:05 → HIMN 05:40 → N04B 02-04 16:53
PROVIDERS: ADMIT Internal Medicine Critical Care Medicine; ATTEND Internal Medicine Critical Care Medicine
PROC: 30233N1 Transfusion of Nonautologous Red Blood Cells into Peripheral Vein, Percutaneous Approach (ICD-10-PCS; 2017-02-02)
PROC: 30233R1 Transfusion of Nonautologous Platelets into Peripheral Vein, Percutaneous Approach (ICD-10-PCS; 2017-02-03)
PROC: 30233K1 Transfusion of Nonautologous Frozen Plasma into Peripheral Vein, Percutaneous Approach (ICD-10-PCS; 2017-02-03)
PROC: 0W3P8ZZ Control Bleeding in Gastrointestinal Tract, Via Natural or Artificial Opening Endoscopic (ICD-10-PCS; principal; 2017-02-03 15:30)
PROC: 0W9G3ZZ Drainage of Peritoneal Cavity, Percutaneous Approach (ICD-10-PCS; 2017-02-08)
DX: I85.01 Esophageal varices with bleeding (principal); D68.4 Acquired coagulation factor deficiency; D61.818 Other pancytopenia; K76.6 Portal hypertension; E11.40 Type 2 diabetes mellitus with diabetic neuropathy, unspecified; D69.6 Thrombocytopenia, unspecified; K70.31 Alcoholic cirrhosis of liver with ascites; D62 Acute posthemorrhagic anemia; B18.2 Chronic viral hepatitis C; I10 Essential (primary) hypertension; Z79.84 Long term (current) use of oral hypoglycemic drugs; E78.5 Hyperlipidemia, unspecified; F10.21 Alcohol dependence, in remission; Z79.82 Long term (current) use of aspirin; G89.29 Other chronic pain; M54.9 Dorsalgia, unspecified; M19.90 Unspecified osteoarthritis, unspecified site; E87.5 Hyperkalemia; D63.8 Anemia in other chronic diseases classified elsewhere; E87.6 Hypokalemia; K70.40 Alcoholic hepatic failure without coma; Z86.718 Personal history of other venous thrombosis and embolism; D50.9 Iron deficiency anemia, unspecified
CPT/HCPCS: 36430; 49083; 71010; 76705; 76937; 80048; 80053; 80307; 82042; 82140; 82150; 82172; 82247; 82248; 82550; 82607; 82728; 82746; 82945; 82948; 82977; 83010; 83540; 83550; 83615; 83690; 83735; 83880; 83883; 84100; 84132; 84155; 84157; 84460; 84484; 85014; 85018; 85025; 85027; 85384; 85610; 85730; 86850; 86900; 86901; 86920; 86927; 87070; 87205; 87641; 87902; 88112; 88305; 89051; 93005; 96374; 96375; 96376; C1729; C9113; G0481; J0610; J0696; J1756; J1815; J2270; J2354; J2405; J7030; J7040; J7050; P9016; P9017; P9035

== ENCOUNTER → 2017-02-22 | Outpatient (CLI) | payer MEDICARE, MEDICAID ==
[~2017-02-22] MED LIST changes: +ALDA50TA2 PO; +HYDR-3516 PO; +LYRI75CA PO; -NORC5TAB PO; -PREG300 PO; -Spironolactone PO
[2017-02-22 11:51] LABS: AUTOMATED NEUTROPHIL # 1.7 TH/MM3 (1.8-7.7); BASOPHIL % 1.2 % (0.0-2.0); EOSINOPHIL % 1.8 % (0.0-4.0); HEMATOCRIT 31.3 % (39.0-51.0); HEMO FLAGS DIFF FINAL; LYMPH % 24.6 % (9.0-44.0); LYMPHOCYTE # 0.6 TH/MM3 (1.0-4.8); MEAN CELL VOLUME 92.3 FL (80.0-100.0); MEAN CORPUSCULAR HEMOGLOBIN 30.3 PG (27.0-34.0); MEAN CORPUSCULAR HGB CONC 32.8 % (32.0-36.0); MONO % 5.4 % (0.0-8.0); PLATELET COUNT 101 TH/MM3 (150-450); RED BLOOD COUNT 3.39 MIL/MM3 (4.50-5.90); RED CELL DISTRIBUTION WIDTH 18.3 % (11.6-17.2); WHITE BLOOD COUNT 2.5 TH/MM3 (4.0-11.0)
[2017-02-22 12:04] LABS: INTERNATIONAL NORMALIZED RATIO 1.1 RATIO; PROTHROMBIN TIME - PATIENT 12.3 SEC (9.8-11.6)
[2017-02-24 13:53] LABS: HCV RNA PCR LOGIU/ML 6.72 (())
== END ==
LOC: ELAB 10:47
PROVIDERS: ATTEND Internal Medicine Gastroenterology
DX: K74.60 Unspecified cirrhosis of liver (principal); B19.20 Unspecified viral hepatitis C without hepatic coma
CPT/HCPCS: 36415; 85025; 85610; 87522

== ENCOUNTER 2017-02-23 09:28 | Day surgery (SDC) | payer MEDICARE, MEDICAID ==
[2017-02-23 11:45] VITALS: BP 119/73; PULSE 52; RESP 18; TEMP 97.9; O2SAT 100
[2017-02-23 12:00] VITALS: BP 140/79; PULSE 54; RESP 18; O2SAT 100
--- NOTE | 2017-02-23 12:33 | RADRPT ---
EXAM DATE/TIME: 02/23/2017 10:38 [facility] COMPARISON: US GUIDED ABD PARACENTESIS, February 08, 2017, 10:07. INDICATIONS : Ascites. MEDICAL HISTORY : Hypercholesterolemia. Hypertension. Hepatitis C. Diabetic neuropathy. Ulcer. SURGICAL HISTORY : Tonsillectomy. Appendectomy. Paracentesis. Right clavicle surgery with ENCOUNTER: Subsequent ACUITY: 1 day PAIN SCORE: 3/10 LOCATION: Right lower quadrant FLUID: Total volume of 4100 cc of clear, yellow fluid was removed. Fluid was sent to lab for ordered studies. Post procedure scanning reveals no hematoma or other complication. TECHNIQUE: 1. Ultrasound guidance for abdominal paracentesis. 2. Paracentesis. The risks, benefits, and alternatives to ultrasound guided paracentesis were explained to the patient in detail including the risk of bleeding and infection. Written and verbal informed consent was obt ained. With the patient on the ultrasound table, ultrasound imaging was used to select the most appropriate approach for paracentesis. Overlying skin was prepped and draped in the usual sterile fashion and wi th a local anesthetic, a dermatotomy was made with an 11 blade scalpel. A 6 [place] [id number] ca theter was introduced into the peritoneal cavity and fluid was collected. The patient tolerated the procedure well and left the ultrasound suite in stable condition. CONCLUSION: Uncomplicated ultrasound guided paracentesis. Avni Soto MD on February 23, 2017 at 12:31 Board Certified Radiologist. This report was verified electronically.
== END 2017-02-23 12:10 | disposition home or self-care (01) ==
LOC: HRAD 09:28 → HRIP 09:33 → HRAD 12:10
PROVIDERS: ATTEND Internal Medicine Gastroenterology
DX: R18.8 Other ascites (principal); I10 Essential (primary) hypertension; E78.00 Pure hypercholesterolemia, unspecified; E11.40 Type 2 diabetes mellitus with diabetic neuropathy, unspecified; B19.20 Unspecified viral hepatitis C without hepatic coma
CPT/HCPCS: 49083; C1729

== ENCOUNTER 2017-05-04 14:36 | Inpatient (IN) | payer MEDICARE, MEDICAID ==
[2017-05-04] VITALS (12 sets, daily range): BP systolic 115–173; BP diastolic 62–89; PULSE 71–79; RESP 18–20; TEMP 98.5–99.5; O2SAT 97–100
[~2017-05-04] VITALS: Ht 182.9 cm; Wt 89.0 kg
[2017-05-04] MEDS ORDERED: PANTOPRAZOLE SODIUM 40 MG VIAL IVP ONE (15:15)
[2017-05-04] MEDS ORDERED: SODIUM CHLORIDE 0.9% FLUSH 10 ML FLUSH IVF PRN (15:15)
[2017-05-04] MEDS ORDERED: OCTREOTIDE INJ 50 MCG/ML AMP IVP ONE (15:15)
--- NOTE | 2017-05-04 15:36 | PD ---
HPI Chief Complaint: GI Complaint Time Seen by Provider: 15:03 Travel History International Travel<30 days: No Contact w/Intl Traveler<30days: No Traveled to known affect area: No History of Present Illness HPI 56-year-old male presents to the emergency department via EMS for evaluation of GI bleeding. Patient has history of esophageal varices and GI bleed with multiple admissions in the past. The patient has history of GI bleed with esophageal varices, portal hypertension, hepatitis C, liver cirrhosis, thrombocytopenia, anemia, hyperkalemia, diabetes type 2, hypertension. The patient reports large amounts of maroon-colored blood in his stool that started approximately 3 hours ago. He reports approximately 3-4 episodes. He also is having several episodes while here in the emergency department. The patient also states that he needs a paracentesis due to his liver cirrhosis. He denies any fevers, but has chills. He reports shortness of breath due to distended abdomen. No chest pain. PFSH Past Medical History Hx Anticoagulant Therapy: Yes (ASA) Anxiety: No Depression: No Cancer: No Cardiovascular Problems: Yes High Cholesterol: Yes Diabetes: Yes Patient Takes Glucophage: No Diminished Hearing: No Endocrine: Yes Gastrointestinal Disorders: Yes Genitourinary: No Hepatitis: Yes (hep c ) Hiatal Hernia: No Hypertension: Yes Immune Disorder: No Implanted Vascular Access Dvce: Yes Musculoskeletal: Yes (NEUROPATHY) Neurologic: Yes (DIABETIC NEUROPATHY) Psychiatric: No Reproductive: No Respiratory: No Immunizations Current: Yes Thyroid Disease: No Ulcer: Yes Past Surgical History Abdominal Surgery: Yes (APPENDECTOMY PARENCENTESIS ACITES) Appendectomy: Yes Body Medical Devices: PLATE IN RIGHT SHOULDER Cardiac Surgery: No Ear Surgery: No Endocrine Surgery: No Eye Surgery: No Genitourinary Surgery: No Gynecologic Surgery: No Oral Surgery: No Pacemaker: No Thoracic Surgery: No Tonsillectomy: Yes Other Surgery: Yes (right clavical with metal, LIVER PARACENTESIS) Social History Alcohol Use: No Tobacco Use: No Substance Use: No Allergies-Medications (Allergen,Severity, Reaction): Coded Allergies: bacitracin (Unverified Allergy, Mild, RASH, 05/04/17) gramicidin D (Unverified Allergy, Mild, 05/04/17) neomycin (Unverified Allergy, Mild, 05/04/17) polymyxin B (Unverified Allergy, Mild, RASH, 05/04/17) *MDRO Multi-Drug Resistant Organism (Verified Adverse Reaction, Unknown, ) ESBL E. coli (urine) - 12/15/16 Reported Meds & Prescriptions Reported Meds & Active Scripts Active Hydrocodone-Acetaminophen 5-325 mg Tab 1 Tab PO TID PRN Propranolol (Propranolol HCl) 10 Mg Tab 10 Mg PO Q12HR Flomax (Tamsulosin HCl) 0.4 Mg Cap 0.8 Mg PO DAILY Xifaxan (Rifaximin) 550 Mg Tab 550 Mg PO BID Reported Metformin (Metformin HCl) 850 Mg Tab 1,000 Mg PO BIDPC With meals Metformin (Metformin HCl) 850 Mg Tab 1,000 Mg PO DAILY With a meal Nadolol 20 Mg Tab 20 Mg PO DAILY Amlodipine (Amlodipine Besylate) 5 Mg Tab 5 Mg PO DAILY Lyrica (Pregabalin) 300 Mg Cap 300 Mg PO TID Spironolactone 100 Mg Tab 100 Mg PO DAILY Pantoprazole (Pantoprazole Sodium) 40 Mg Tab 40 Mg PO BID Penicillin V Potassium 500 Mg Tab 500 Mg PO Q6H Epclusa 400 mg-100 mg Tablet (Sofosbuvir/Velpatasvir) 400 Mg-100 Mg Tablet Ribavirin 200 Mg Cap Tums (Calcium Carbonate (Antacid)) 500 Mg Chew 500 Mg CHEW DAILY PRN Buspirone (Buspirone HCl) 10 Mg Tab 10 Mg PO TID Baclofen 20 Mg Tab 20 Mg PO TID Review of Systems Except as stated in HPI: all other systems reviewed are Neg Physical Exam Narrative GENERAL: Well-nourished, well-developed male patient, Afebrile. SKIN: Focused skin assessment warm/dry. HEAD: Normocephalic. Atraumatic. EYES: No scleral icterus. No injection or drainage. NECK: Supple, trachea midline. No JVD or lymphadenopathy. CARDIOVASCULAR: Regular rate and rhythm without murmurs, gallops, or rubs. RESPIRATORY: Breath sounds equal bilaterally. No accessory muscle use. Lungs sounds are clear to auscultation. GASTROINTESTINAL: Abdomen distended, nontender to palpation. MUSCULOSKELETAL: No cyanosis, or edema. BACK: Nontender without obvious deformity. No CVA tenderness. Data Data Last Documented VS Vital Signs Date Time Temp Pulse Resp B/P (MAP) Pulse Ox O2 Delivery O2 Flow Rate FiO2 05/04/17 15:07 (117) 100 05/04/17 14:59 98.6 79 18 Orders Orders Complete Blood Count With Diff (05/04/17 15:03) Comprehensive Metabolic Panel (05/04/17 15:03) Lipase (05/04/17 15:03) Prothrombin Time / Inr (Pt) (05/04/17 15:03) Act Partial Throm Time (Ptt) (05/04/17 15:03) Type And Screen (05/04/17 15:03) Chest, Single Ap (05/04/17 15:03) Ecg Monitoring (05/04/17 15:03) Iv Access Insert/Monitor (05/04/17 15:03) Oximetry (05/04/17 15:03) Pantoprazole Inj (Protonix Inj) (05/04/17 15:15) Sodium Chloride 0.9% Flush (Ns Flush) (05/04/17 15:15) Electrocardiogram (05/04/17 ) Sodium Chlorid 0.9%... W/Octreotide Inj (05/04/17 15:11) Sodium Chloride 0.9... W/Pantoprazole In (05/04/17 15:11) Sodium Chloride 0.9... W/Pantoprazole In (05/04/17 16:11) Octreotide Inj (Sandostatin Inj) (05/04/17 15:15) Red Blood Cells (Rbc) (05/04/17 16:33) Blood Product Administration (05/04/17 16:33) Sodium Chlor 0.9% 250 Ml Inj (Ns 250 Ml (05/04/17 16:45) Consult Gastroenterology (05/04/17 ) Admit Order (Ed Use Only) (05/04/17 16:48) Ceftriaxone Inj (Rocephin Inj) (05/04/17 17:00) Ceftriaxone Inj (Rocephin Inj) (05/05/17 17:00) Labs Laboratory Tests Test 05/04/17 15:00 White Blood Count 6.2 TH/MM3 Red Blood Count 2.94 MIL/MM3 Hemoglobin 9.0 GM/DL Hematocrit 27.7 % Mean Corpuscular Volume 94.1 FL Mean Corpuscular Hemoglobin 30.7 PG Mean Corpuscular Hemoglobin Concent 32.6 % Red Cell Distribution Width 18.9 % Platelet Count 79 TH/MM3 Mean Platelet Volume 9.9 FL Neutrophils (%) (Auto) 76.3 % Lymphocytes (%) (Auto) 12.7 % Monocytes (%) (Auto) 8.6 % Eosinophils (%) (Auto) 1.5 % Basophils (%) (Auto) 0.9 % Neutrophils # (Auto) 4.7 TH/MM3 Lymphocytes # (Auto) 0.8 TH/MM3 Monocytes # (Auto) 0.5 TH/MM3 Eosinophils # (Auto) 0.1 TH/MM3 Basophils # (Auto) 0.1 TH/MM3 CBC Comment AUTO DIFF Differential Comment AUTO DIFF CONFIRMED Platelet Estimate NORMAL Platelet Morphology Comment NORMAL Prothrombin Time 12.0 SEC Prothromb Time International Ratio 1.1 RATIO Activated Partial Thromboplast Time 25.2 SEC Blood Urea Nitrogen 19 MG/DL Creatinine 0.88 MG/DL Random Glucose 311 MG/DL Total Protein 6.3 GM/DL Albumin 2.2 GM/DL Calcium Level 7.6 MG/DL Alkaline Phosphatase 108 U/L Aspartate Amino Transf (AST/SGOT) 53 U/L Alanine Aminotransferase (ALT/SGPT) 42 U/L Total Bilirubin 1.5 MG/DL Sodium Level 135 MEQ/L Potassium Level 4.4 MEQ/L Chloride Level 106 MEQ/L Carbon Dioxide Level 22.3 MEQ/L Anion Gap 7 MEQ/L Estimat Glomerular Filtration Rate 89 ML/MIN Lipase 160 U/L MDM Medical Decision Making Medical Screen Exam Complete: Yes Emergency Medical Condition: Yes Medical Record Reviewed: Yes Interpretation(s) chest x-ray - CONCLUSION: 1. Subsegmental atelectasis left base. Differential Diagnosis Upper GI bleed versus lower GI bleed versus anemia Narrative Course 56-year-old male presents to the emergency department for evaluation of GI bleeding that started approximately 3 hours ago. While here in the emergency department, he is our he had several episodes of GI bleed. Hemoccult is grossly positive. CBC, CMP, lipase, PTT, PT/INR, type and screen are ordered and pending. Chest x-ray is ordered and pending. Patient is given Protonix 80 mg bolus with a proton extremities at 8 mg an hour. He is also given octreotide 50 g and started on a drip at 50 g an hour. CBC shows anemia with hemoglobin 9.0, hematocrit 27.7. CMP shows hyperglycemia 311. Lipase is 160. Coags shows no acute abnormalities. Chest x-ray shows Subsegmental atelectasis left base. Patient has had multiple more episodes of GI bleeding in the emergency department. He is given 2 units PRBCs. I spoke to Dr. Bartlett, hot saw helper concrete curer and notified him of patient. Dr. Olsen, multiplex operator, accepted patient. Diagnosis Primary Impression: GI bleed Qualified Codes: K92.2 - Gastrointestinal hemorrhage, unspecified Admitting Information Admitting Physician Requests: Admit Aby Garsia May 04, 2017 15:36
[2017-05-04] MEDS: PANTOPRAZOLE INJ 80 MG in SODIUM CHLORIDE 0.9% INJ 100 ML IV SCH (15:42)
[2017-05-04 15:44] LABS: AUTOMATED NEUTROPHIL # 4.7 TH/MM3 (1.8-7.7); BASOPHIL # 0.1 TH/MM3 (0-0.2); BASOPHIL % 0.9 % (0.0-2.0); EOSINOPHIL # 0.1 TH/MM3 (0-0.4); EOSINOPHIL % 1.5 % (0.0-4.0); HEMATOCRIT 27.7 % (39.0-51.0); LYMPH % 12.7 % (9.0-44.0); LYMPHOCYTE # 0.8 TH/MM3 (1.0-4.8); MEAN CELL VOLUME 94.1 FL (80.0-100.0); MEAN CORPUSCULAR HEMOGLOBIN 30.7 PG (27.0-34.0); MEAN CORPUSCULAR HGB CONC 32.6 % (32.0-36.0); MONO % 8.6 % (0.0-8.0); NEUT % 76.3 % (16.0-70.0); PLATELET COUNT 79 TH/MM3 (150-450); RED BLOOD COUNT 2.94 MIL/MM3 (4.50-5.90); RED CELL DISTRIBUTION WIDTH 18.9 % (11.6-17.2); WHITE BLOOD COUNT 6.2 TH/MM3 (4.0-11.0)
[2017-05-04 15:52] LABS: HEMO FLAGS AUTO DIFF
[2017-05-04 15:53] LABS: APTT (PATIENT) 25.2 SEC (24.3-30.1); INTERNATIONAL NORMALIZED RATIO 1.1 RATIO
[2017-05-04] MEDS ORDERED: SPIR100T PO (15:58)
[2017-05-04] MEDS ORDERED: PANT40TA3 PO (15:58)
[2017-05-04] MEDS ORDERED: RIBA200C5 (15:58)
[2017-05-04] MEDS ORDERED: SOFO1TAB (15:58)
[2017-05-04] MEDS ORDERED: METF850T PO ×2 (15:58)
[2017-05-04] MEDS ORDERED: NADO20TA PO (15:58)
[2017-05-04] MEDS ORDERED: PREG300 PO (15:58)
[2017-05-04] MEDS ORDERED: AMLO5TAB2 PO (15:58)
[2017-05-04] MEDS ORDERED: PENI500T PO (15:58)
--- NOTE | 2017-05-04 15:59 | RADRPT ---
EXAM DATE/TIME: 05/04/2017 15:21 [facility] COMPARISON: CHEST SINGLE AP, February 02, 2017, 2:54. INDICATIONS : Shortness of breath. MEDICAL HISTORY : Ulcers. Hypercholesterolemia. Hypertension. Hepatitis C. Diabetic neuropathy SURGICAL HISTORY : Tonsillectomy. Appendectomy. Paracentesis. Right clavicle surgery ENCOUNTER: Initial ACUITY: 1 day PAIN SCORE: 7/10 LOCATION: Bilateral chest FINDINGS: The cardiac silhouette is normal in transverse diameter. There is subsegmental atelectasis in the lef t base. The right lung is free of acute parenchymal opacity. There is previous internal fixation of a right clavicle fracture. CONCLUSION: 1. Subsegmental atelectasis left base. Regulo Kinney MD on May 04, 2017 at 15:52 Board Certified Radiologist. This report was verified electronically.
[2017-05-04 16:07] LABS: ALT (GPT) 42 U/L (12-78); ANION GAP 7 MEQ/L (5-15); AST (GOT) 53 U/L (15-37); BICARBONATE 22.3 MEQ/L (21.0-32.0); BLOOD UREA NITROGEN 19 MG/DL (7-18); CHLORIDE 106 MEQ/L (98-107); GLOMERULAR FILTRATION RATE 89 ML/MIN (>89); POTASSIUM 4.4 MEQ/L (3.5-5.1); SODIUM (NA) 135 MEQ/L (136-145)
[2017-05-04 16:09] LABS: ALKALINE PHOSPHATASE 108 U/L (45-117); TOTAL BILIRUBIN ADULT 1.5 MG/DL (0.2-1.0)
[2017-05-04] MEDS ORDERED: PANTOPRAZOLE INJ 80 MG in SODIUM CHLORIDE 0.9% INJ 35 ML IV ONE (16:11)
[2017-05-04] MEDS: OCTREOTIDE INJ 500 MCG in SODIUM CHLORID 0.9% 500 ML INJ 500 ML IV SCH (16:11)
--- NOTE | 2017-05-04 16:26 | PD ---
Physical Exam Date Seen by Provider: May 04, 2017 Time Seen by Provider: 16:15 Narrative I'm seeing this patient with KIMANI Harris. This is a 56-year-old gentleman with history of esophageal varices, who is had multiple variceal bleeds, presents here after having a large melanotic bowel movement 3 hours prior to arrival. The patient's also had a witnessed bowel movement here that is obviously heme positive and murmur in color. Data Data Last Documented VS Vital Signs Date Time Temp Pulse Resp B/P (MAP) Pulse Ox O2 Delivery O2 Flow Rate FiO2 05/04/17 15:07 (117) 100 05/04/17 14:59 98.6 79 18 Orders Orders Complete Blood Count With Diff (05/04/17 15:03) Comprehensive Metabolic Panel (05/04/17 15:03) Lipase (05/04/17 15:03) Prothrombin Time / Inr (Pt) (05/04/17 15:03) Act Partial Throm Time (Ptt) (05/04/17 15:03) Type And Screen (05/04/17 15:03) Chest, Single Ap (05/04/17 15:03) Ecg Monitoring (05/04/17 15:03) Iv Access Insert/Monitor (05/04/17 15:03) Oximetry (05/04/17 15:03) Pantoprazole Inj (Protonix Inj) (05/04/17 15:15) Sodium Chloride 0.9% Flush (Ns Flush) (05/04/17 15:15) Electrocardiogram (05/04/17 ) Sodium Chlorid 0.9%... W/Octreotide Inj (05/04/17 15:11) Sodium Chloride 0.9... W/Pantoprazole In (05/04/17 15:11) Sodium Chloride 0.9... W/Pantoprazole In (05/04/17 16:11) Octreotide Inj (Sandostatin Inj) (05/04/17 15:15) Labs Laboratory Tests Test 05/04/17 15:00 White Blood Count 6.2 TH/MM3 Red Blood Count 2.94 MIL/MM3 Hemoglobin 9.0 GM/DL Hematocrit 27.7 % Mean Corpuscular Volume 94.1 FL Mean Corpuscular Hemoglobin 30.7 PG Mean Corpuscular Hemoglobin Concent 32.6 % Red Cell Distribution Width 18.9 % Platelet Count 79 TH/MM3 Mean Platelet Volume 9.9 FL Neutrophils (%) (Auto) 76.3 % Lymphocytes (%) (Auto) 12.7 % Monocytes (%) (Auto) 8.6 % Eosinophils (%) (Auto) 1.5 % Basophils (%) (Auto) 0.9 % Neutrophils # (Auto) 4.7 TH/MM3 Lymphocytes # (Auto) 0.8 TH/MM3 Monocytes # (Auto) 0.5 TH/MM3 Eosinophils # (Auto) 0.1 TH/MM3 Basophils # (Auto) 0.1 TH/MM3 CBC Comment AUTO DIFF Prothrombin Time 12.0 SEC Prothromb Time International Ratio 1.1 RATIO Activated Partial Thromboplast Time 25.2 SEC Blood Urea Nitrogen 19 MG/DL Creatinine 0.88 MG/DL Random Glucose 311 MG/DL Total Protein 6.3 GM/DL Albumin 2.2 GM/DL Calcium Level 7.6 MG/DL Alkaline Phosphatase 108 U/L Aspartate Amino Transf (AST/SGOT) 53 U/L Alanine Aminotransferase (ALT/SGPT) 42 U/L Total Bilirubin 1.5 MG/DL Sodium Level 135 MEQ/L Potassium Level 4.4 MEQ/L Chloride Level 106 MEQ/L Carbon Dioxide Level 22.3 MEQ/L Anion Gap 7 MEQ/L Estimat Glomerular Filtration Rate 89 ML/MIN Lipase 160 U/L MDM Medical Record Reviewed: Yes Supervised Visit with BENTLEY: Yes Narrative Course 56-year-old male with a history of esophageal varices, hepatitis C, cirrhosis of the liver, alcoholic liver disease, presents here with complaints of melanotic stool. The patient has a hemoglobin of 9.0. Given his active bleeding, he's been started on octreotide. He'll be admitted to the intensive care unit. There is a call out to the ignition mechanic. There is also a call out to the on-call GI physician. Diagnosis Primary Impression: GI bleed Additional Impressions: Esophageal varices Anemia Liver cirrhosis Admitting Information Admitting Physician Requests: Admit Jonnie Rangel MD May 04, 2017 16:26
[2017-05-04 16:33] LABS: PLATELET ESTIMATE SMEAR NORMAL (NORMAL); PLATELET MORPHOLOGY NORMAL (NORMAL); SCAN/DIFF AUTO DIFF CONFIRMED
[2017-05-04] MEDS ORDERED: SODIUM CHLOR 0.9% 250 ML INJ 250 ML IV ONE (16:45)
--- NOTE | 2017-05-04 16:52 | HHI.HP ---
[facility] Service Critical Care Medicine Primary Care Physician Long Huerta, DO Admission Diagnosis GI bleed Diagnosis: (1) UGIB (upper gastrointestinal bleed) Diagnosis: Principal (2) Esophageal varices Diagnosis: Principal (3) Anemia requiring transfusions Diagnosis: Principal (4) Thrombocytopenia Diagnosis: Principal (5) Hyperglycemia Diagnosis: Principal (6) Portal hypertensive gastropathy Diagnosis: Secondary (7) Liver cirrhosis Diagnosis: Secondary (8) Diabetes 1.5, managed as type 2 Diagnosis: Secondary (9) Ascites Diagnosis: Secondary (10) Portal vein thrombosis Diagnosis: Secondary (11) Hepatitis C Diagnosis: Secondary Chief Complaint: Upper GI bleed, melanotic stool Travel History International Travel<30 Days: No Contact w/Intl Traveler <30 Da: No Traveled to Known Affected Are: No History of Present Illness Patient is a 56-year-old male who presented to the emergency department for evaluation of large amounts of melanotic stools which started about 3 hours prior to presentation, apparently 4-5 episodes. Patient has history of esophageal varices, portal hypertension, hepatitis C, liver cirrhosis , thrombocytopenia, diabetes type 2, hypertension. Most recent admission was in January 2017 and his EGD at that time showed large grade 4 esophageal varices and he underwent banding. CBC showed hemoglobin 9.0, hematocrit 27.7, platelet count of 79. CMP shows hyperglycemia 311. In the ER patient had been started on IV Protonix infusion and IV octreotide infusion. He also received 500 mL crystalloid bolus by EMS. I evaluated the patient in the ED. He continues to have melanotic stools. Abdomen is distended slightly tender. Patient had been ordered to receive 2 units of PRBC. I have ordered 1 unit of platelets stat. Dr. Bartlett from had been contacted by ED. Patient will need EGD once stable, and also paracentesis. I have started patient on Rocephin 2 g IV daily for SBP prophylaxis. The patient was apparently started on hep C treatment today-but due to GI bleed he missed the dose, will hold while patient is nothing by mouth. Patient denies active alcohol use Review of Systems ROS Limitations: Other (as per HPI) Past Family Social History Allergies: Coded Allergies: bacitracin (Unverified Allergy, Mild, RASH, 05/04/17) gramicidin D (Unverified Allergy, Mild, 05/04/17) neomycin (Unverified Allergy, Mild, 05/04/17) polymyxin B (Unverified Allergy, Mild, RASH, 05/04/17) *MDRO Multi-Drug Resistant Organism (Verified Adverse Reaction, Unknown, ) ESBL E. coli (urine) - 12/15/16 Past Medical History Recurrent variceal bleeding Hypertension Liver cirrhosis Hepatitis C Dyslipidemia Diabetes mellitus Diabetic neuropathy History of portal vein thrombosis Prior history of alcohol abuse Chronic back pain Degenerative disc disease History of ascites Past Surgical History Multiple EGDs Paracentesis EGD on 04/05/17 -Blood in the entire esophagus, from recent bleeding Grade 4 esophageal varices, 4 bands applied with total control Reported Medications Hydrocodone-Acetaminophen 5-325 mg Tab 1 Tab PO TID PRN Propranolol (Propranolol HCl) 10 Mg Tab 10 Mg PO Q12HR Flomax (Tamsulosin HCl) 0.4 Mg Cap 0.8 Mg PO DAILY Xifaxan (Rifaximin) 550 Mg Tab 550 Mg PO BID Metformin (Metformin HCl) 850 Mg Tab 1,000 Mg PO BIDPC Metformin (Metformin HCl) 850 Mg Tab 1,000 Mg PO DAILY Nadolol 20 Mg Tab 20 Mg PO DAILY Amlodipine (Amlodipine Besylate) 5 Mg Tab 5 Mg PO DAILY Lyrica (Pregabalin) 300 Mg Cap 300 Mg PO TID Spironolactone 100 Mg Tab 100 Mg PO DAILY Pantoprazole (Pantoprazole Sodium) 40 Mg Tab 40 Mg PO BID Penicillin V Potassium 500 Mg Tab 500 Mg PO Q6H Epclusa 400 mg-100 mg Tablet (Sofosbuvir/Velpatasvir) 400 Mg-100 Mg Tablet Ribavirin 200 Mg Cap Tums (Calcium Carbonate (Antacid)) 500 Mg Chew 500 Mg CHEW DAILY PRN Buspirone (Buspirone HCl) 10 Mg Tab 10 Mg PO TID Baclofen 20 Mg Tab 20 Mg PO TID Active Ordered Medications On octreotide and Protonix drips Family History No family history of liver disease Social History Remote history of alcohol and substance abuse. Patient claims that he quit drinking 6 years ago Occasional tobacco use Physical Exam Vital Signs Vital Signs Date Time Temp Pulse Resp B/P (MAP) Pulse Ox O2 Delivery O2 Flow Rate FiO2 05/04/17 15:07 (117) 100 05/04/17 15:03 173/89 (117) 05/04/17 14:59 98.6 79 18 173/87 (115) 99 Physical Exam GENERAL: Well-nourished, well-developed male patient, pale in moderate distress SKIN: Focused skin assessment warm/dry. HEAD: Normocephalic. Atraumatic. EYES: No scleral icterus, pale. No injection or drainage. NECK: Supple, trachea midline. No JVD or lymphadenopathy. CARDIOVASCULAR: Regular rate and rhythm without murmurs, gallops, or rubs. RESPIRATORY: Breath sounds equal bilaterally. No accessory muscle use. Lungs sounds are clear to auscultation. GASTROINTESTINAL: Abdomen distended, nontender to palpation. + Fluid thrill MUSCULOSKELETAL: No cyanosis, 1+ pitting edema. BACK: Nontender without obvious deformity. No CVA tenderness. NEURO: Alert awake oriented. No focal deficits Laboratory Laboratory Tests Test 05/04/17 15:00 White Blood Count 6.2 Red Blood Count 2.94 Hemoglobin 9.0 Hematocrit 27.7 Mean Corpuscular Volume 94.1 Mean Corpuscular Hemoglobin 30.7 Mean Corpuscular Hemoglobin Concent 32.6 Red Cell Distribution Width 18.9 Platelet Count 79 Mean Platelet Volume 9.9 Neutrophils (%) (Auto) 76.3 Lymphocytes (%) (Auto) 12.7 Monocytes (%) (Auto) 8.6 Eosinophils (%) (Auto) 1.5 Basophils (%) (Auto) 0.9 Neutrophils # (Auto) 4.7 Lymphocytes # (Auto) 0.8 Monocytes # (Auto) 0.5 Eosinophils # (Auto) 0.1 Basophils # (Auto) 0.1 CBC Comment AUTO DIFF Differential Comment AUTO DIFF CONFIRMED Platelet Estimate NORMAL Platelet Morphology Comment NORMAL Prothrombin Time 12.0 Prothromb Time International Ratio 1.1 Activated Partial Thromboplast Time 25.2 Blood Urea Nitrogen 19 Creatinine 0.88 Random Glucose 311 Total Protein 6.3 Albumin 2.2 Calcium Level 7.6 Alkaline Phosphatase 108 Aspartate Amino Transf (AST/SGOT) 53 Alanine Aminotransferase (ALT/SGPT) 42 Total Bilirubin 1.5 Sodium Level 135 Potassium Level 4.4 Chloride Level 106 Carbon Dioxide Level 22.3 Anion Gap 7 Estimat Glomerular Filtration Rate 89 Lipase 160 Result Diagram: 05/04/17 1500 05/04/17 1500 Imaging Chest x-ray shows no acute findings Caprini VTE Risk Assessment Caprini VTE Risk Assessment: Mod/High Risk (score >= 2) VTE Pharm Contraindication: Hemorrhage Caprini Risk Assessment Model Point Value = 1 Point Value = 2 Point Value = 3 Point Value = 5 Age 41-60 Minor surgery BMI > 25 kg/m2 Swollen legs Varicose veins or History of unexplained or recurrent spontaneous Oral contraceptives or hormone replacement Sepsis (< 1 month) Serious lung disease, including pneumonia (< 1 month) Abnormal pulmonary function Acute myocardial infarction Congestive heart failure (< 1 month) History of inflammatory bowel disease Medical patient at bed rest Age 61-74 Arthroscopic surgery Major open surgery (> 45 min) Laparoscopic surgery (> 45 min) Malignancy Confined to bed (> 72 hours) Immobilizing plaster cast Central venous access Age >= 75 History of VTE Family history of VTE Factor V Leiden Prothrombin [id number] Lupus anticoagulant Anticardiolipin antibodies Elevated serum homocysteine Heparin-induced thrombocytopenia Other congenital or acquired thrombophilia Stroke (< 1 month) Elective arthroplasty Hip, pelvis, or leg fracture Acute spinal cord injury (< 1 month) Prophylaxis Regimen Total Risk Factor Score Risk Level Prophylaxis Regimen 0-1 Low Early ambulation 2 Moderate Order ONE of the following: *Sequential Compression Device (SCD) *Heparin 5000 units SQ BID 3-4 Higher Order ONE of the following medications: *Heparin 5000 units SQ TID *Enoxaparin/Lovenox 40 mg SQ daily (WT < 150 kg, CrCl > 30 mL/min) *Enoxaparin/Lovenox 30 mg SQ daily (WT < 150 kg, CrCl > 10-29 mL/min) *Enoxaparin/Lovenox 30 mg SQ BID (WT < 150 kg, CrCl > 30 mL/min) AND/OR *Sequential Compression Device (SCD) 5 or more Highest Order ONE of the following medications: *Heparin 5000 units SQ TID (Preferred with Epidurals) *Enoxaparin/Lovenox 40 mg SQ daily (WT < 150 kg, CrCl > 30 mL/min) *Enoxaparin/Lovenox 30 mg SQ daily (WT < 150 kg, CrCl > 10-29 mL/min) *Enoxaparin/Lovenox 30 mg SQ BID (WT < 150 kg, CrCl > 30 mL/min) AND *Sequential Compression Device (SCD) Assessment and Plan Assessment and Plan Neuro/Psych: History of alcohol dependence History of hepatic encephalopathy - Hold Xifaxan and lactulose while nothing by mouth. Check ammonia level - Morphine for pain management - Patient denies active alcohol use CV: Hypertension Dyslipidemia - Monitor HR and BP keep MAP>65mmHg - Hold beta blockers at this time due to GI bleed - Continue Aldactone 100 mg daily when by mouth permitted - As needed hydralazine for SBP >160 Resp: - Oxygen PRN keep sat > 92% - DuoNeb every 6 hours when necessary GI/HEME: Upper GI bleed most likely from grade 4 varices Hepatitis C Cirrhosis from alcoholism and hepatitis C History of portal vein thrombosis Cirrhosis Hypo-albuminemia Ascites - Nothing by mouth, IV Protonix infusion, IV octreotide infusion - Rocephin for SBP prophylaxis started - GI Dr. Bartlett consulted for EGD - Transfuse 2 units PRBC, transfuse one pack units of platelets - EGD 02/03/17 - grade 4 esophageal varices status post banding - Apparently had been started on hep C treatment with ribavirin and Epclusa- hold while NPO /Renal: Prerenal azotemia History of BPH - Monitor renal function, electrolytes replacement as needed - Normal saline IV fluids 84 mL per hour Endo: Diabetes mellitus with neuropathy Hyperglycemia - Sliding-scale every q4hr - Electrolyte Replacement per protocol ID: - On prophylaxis Rocephin for SBP - Send blood cultures 2 Access - Utilize peripheral IV. Prophylaxis - GI - Protonix drip - DVT - SCD/LIDA. pharmacological prophylaxis contraindicated with acute GI bleed CCT 35 MIN Code Status Full Discussed Condition With ED Problem Qualifiers (1) Esophageal varices: Qualified Codes: I85.11 - Secondary esophageal varices with bleeding (2) Liver cirrhosis: Cory Olsen MD May 04, 2017 16:52
[2017-05-04] MEDS ORDERED: MISCELLANEOUS NURSING INFORMATION XX SCH (17:00)
[2017-05-04] MEDS ORDERED: CHLORHEXIDINE GLUCONATE 2 % 1 PACK (2 CLOTHS) TOP PRN (17:00)
[2017-05-04] MEDS ORDERED: MORPHINE SULFATE 4 MG/ML INJ IV PRN (17:00)
[2017-05-04] MEDS ORDERED: hydrALAZINE HCL 20 MG/ML VIAL IV PUSH PRN (17:30)
[2017-05-04] MEDS ORDERED: DEXTROSE 50% IN WATER 50 ML VIAL(D50) IV PUSH PRN (17:45)
[2017-05-04] MEDS ORDERED: GLUCAGON 1 MG/ML VIAL OTHER PRN (17:45)
[2017-05-04] MEDS: SODIUM CHLOR 0.9% 1000 ML INJ 1,000 ML IV SCH (17:50)
[2017-05-04] MEDS ORDERED: cefTRIAXone INJ 2,000 MG in SODIUM CHLORIDE 0.9% INJ 100 ML IV ONE (18:00)
[2017-05-04] MEDS: INSULIN ASPART SUPPLEMENTAL SCALE SQ SCH (18:21)
[2017-05-04] MEDS ORDERED: CALCIUM GLUCONATE INJ 1 GM in SODIUM CHLORIDE 0.9% INJ 100 ML IV ONE (19:00)
[2017-05-04] MEDS: ALBUMIN HUMAN 25% 25 GM/100 ML BAGP IV SCH (19:55)
--- NOTE | 2017-05-04 21:17 | PD.CONS ---
HPI History of Present Illness This is a 56 year old Male patient who is known to have cirrhosis and has had gi bleeds in the past. He is thought to have varices in esophagus. He started having bloody stools this morning and afternoon. He has passed 5 or more bloody stools. He has been a bit nauseated but no hematemesis. He gave up drinking alcohol 6 years ago. He does not report abdominal pain. He is not dizzy at present. No syncope or near syncope. He is getting started on Protonix drip and Octreotide drip. ROS: abdominal distension from ascites. BAck pain, chronic. no headache, sore throat, fever, chills. Otherwise complete ros negative PFSH Past Medical History Cirrhosis from alcohol Diabetes Hepatitis C on treatment with epclusa Chronic back pain Past Surgical History EGD with variceal banding 04/05/17 Coded Allergies: bacitracin (Unverified Allergy, Mild, RASH, 05/04/17) gramicidin D (Unverified Allergy, Mild, 05/04/17) neomycin (Unverified Allergy, Mild, 05/04/17) polymyxin B (Unverified Allergy, Mild, RASH, 05/04/17) *MDRO Multi-Drug Resistant Organism (Verified Adverse Reaction, Unknown, ) ESBL E. coli (urine) - 12/15/16 Medications Current Medications Medications (Trade) Dose Ordered Sig/Jez Route Start Time Stop Time Status Last Admin (NS Flush) 2 ml UNSCH PRN IVF 05/04/17 15:15 Octreotide Acetate 500 mcg/ Sodium Chloride 500.5 ml @ 50 mls/hr Q10H1M IV 05/04/17 15:11 05/04/17 16:11 Pantoprazole Sodium 80 mg/ Sodium Chloride 100 ml @ 10 mls/hr Q10H IV 05/04/17 15:11 05/04/17 15:42 Sodium Chloride 250 ml @ 15 mls/hr ONCE ONCE IV 05/04/17 16:45 05/05/17 09:24 05/04/17 18:21 Ceftriaxone Sodium 2000 mg/ Sodium Chloride 100 ml @ 200 mls/hr Q24H IV 05/05/17 18:00 (NovoLOG SUPPLEMENTAL SCALE) 1 Q6H SQ 05/04/17 18:00 05/04/17 18:21 Sodium Chloride 1,000 ml @ 84 mls/hr [id number] IV 05/04/17 16:59 05/04/17 17:50 (Morphine Inj) 2 mg Q2H PRN IV 05/04/17 17:00 (Duoneb Neb) 1 ampule Q4HR NEB PRN INH 05/04/17 17:00 Miscellaneous Information 1 [id number] XX 05/04/17 17:00 (Chlorhexidine 2% Cloth) 3 pack Taper DAILY@04 TOP 05/05/17 04:00 05/01/18 03:59 (Chlorhexidine 2% Cloth) 3 pack UNSCH PRN TOP 05/04/17 17:00 (Albumin 25% Inj) 25 gm Q12H IV 05/04/17 18:00 05/07/17 17:59 05/04/17 19:55 (Aldactone) 100 mg DAILY PO 05/05/17 09:00 Future Hold (Apresoline Inj) 20 mg Q4H PRN IV PUSH 05/04/17 17:30 (D50w (Vial) Inj) 50 ml UNSCH PRN IV PUSH 05/04/17 17:45 (Glucagon Inj) 1 mg UNSCH PRN OTHER 05/04/17 17:45 Family History No fh of cirrhosis Social History Smokes cigaretts occasionally Quit drinking alcohol 6 years ago GI Exam Vitals I&O Vital Signs Date Time Temp Pulse Resp B/P (MAP) Pulse Ox O2 Delivery O2 Flow Rate FiO2 05/04/17 18:38 99.5 77 18 123/69 97 05/04/17 18:18 98.5 77 20 134/65 97 05/04/17 15:07 (117) 100 05/04/17 15:03 173/89 (117) 05/04/17 14:59 98.6 79 18 173/87 (115) 99 I/O 05/03/17 05/03/17 05/03/17 05/04/17 05/04/17 05/04/17 07:00 15:00 23:00 07:00 15:00 23:00 Intake Total 310 ml Balance 310 ml IV Total 35 ml Packed Cells 250 ml Blood Product IV Normal Saline Flush 25 ml # Bowel Movements 1 Laboratory Test 05/04/17 15:00 05/04/17 17:55 White Blood Count 6.2 TH/MM3 Red Blood Count 2.94 MIL/MM3 Hemoglobin 9.0 GM/DL Hematocrit 27.7 % Mean Corpuscular Volume 94.1 FL Mean Corpuscular Hemoglobin 30.7 PG Mean Corpuscular Hemoglobin Concent 32.6 % Red Cell Distribution Width 18.9 % Platelet Count 79 TH/MM3 Mean Platelet Volume 9.9 FL Neutrophils (%) (Auto) 76.3 % Lymphocytes (%) (Auto) 12.7 % Monocytes (%) (Auto) 8.6 % Eosinophils (%) (Auto) 1.5 % Basophils (%) (Auto) 0.9 % Neutrophils # (Auto) 4.7 TH/MM3 Lymphocytes # (Auto) 0.8 TH/MM3 Monocytes # (Auto) 0.5 TH/MM3 Eosinophils # (Auto) 0.1 TH/MM3 Basophils # (Auto) 0.1 TH/MM3 CBC Comment AUTO DIFF Differential Comment AUTO DIFF CONFIRMED Platelet Estimate NORMAL Platelet Morphology Comment NORMAL Prothrombin Time 12.0 SEC Prothromb Time International Ratio 1.1 RATIO Activated Partial Thromboplast Time 25.2 SEC Blood Urea Nitrogen 19 MG/DL Creatinine 0.88 MG/DL Random Glucose 311 MG/DL Total Protein 6.3 GM/DL Albumin 2.2 GM/DL Calcium Level 7.6 MG/DL Alkaline Phosphatase 108 U/L Aspartate Amino Transf (AST/SGOT) 53 U/L Alanine Aminotransferase (ALT/SGPT) 42 U/L Total Bilirubin 1.5 MG/DL Sodium Level 135 MEQ/L Potassium Level 4.4 MEQ/L Chloride Level 106 MEQ/L Carbon Dioxide Level 22.3 MEQ/L Anion Gap 7 MEQ/L Estimat Glomerular Filtration Rate 89 ML/MIN Lipase 160 U/L Ammonia 69 MCMOL/L Date/Time Source Procedure Growth Status 05/04/17 18:30 Blood Peripheral Aerobic Blood Culture Pending Received 05/04/17 18:30 Blood Peripheral Anaerobic Blood Culture Pending Received Physical Examination HEENT: Pupils round and reactive to light; normocephalic; atraumatic; no jaundice. Throat is clear. NECK: Neck is supple, no JVD, no lymphadenopathy. CHEST: Chest is clear to auscultation and percussion. CARDIAC: Regular rate and rhythm with no murmur gallop or rubs. ABDOMEN: Distended with ascites apparent. No tenderness. EXTREMITIES: No clubbing, cyanosis, positive for leg edema SKIN: Normal; no rash; poss mild jaundice LAUNDRY TECHNICIAN: No focal deficits; alert and oriented times three. Assessment and Plan Plan Imp; GI bleed apparently lower, but with known cirrhosis, need to rule out variceal bleed. Ascites, rule out SBP Edema in legs. Plan: Observe overnight in ICU status. Agree with Octreotide and Protonix drips. Transfuse as needed. EGD in AM Possible colonoscopy if EGD negative NPO US abdomen with doppler re portal vein Paracentesis Treat prophylactically for SBP Continue medication for hep C. Further recs as the case progresses. Len Bartlett MD May 04, 2017 21:17
[2017-05-04 22:22] LABS: HEMATOCRIT 29.8 % (39.0-51.0); REVIEW FLAG FINAL
[2017-05-05] VITALS (28 sets, daily range): BP systolic 82–155; BP diastolic 51–75; PULSE 56–86; RESP 18–27; TEMP 97.6–98.9; O2SAT 95–100
[2017-05-05] MEDS: PANTOPRAZOLE INJ 80 MG in SODIUM CHLORIDE 0.9% INJ 100 ML IV SCH ×3 (01:36→21:57)
[2017-05-05] MEDS: OCTREOTIDE INJ 500 MCG in SODIUM CHLORID 0.9% 500 ML INJ 500 ML IV SCH ×3 (01:36→21:58)
[2017-05-05] MEDS ORDERED: SUCCINYLCHOLINE CHLORIDE 200 MG/10 ML VIAL ONE (02:16)
[2017-05-05] MEDS ORDERED: ETOMIDATE 20 MG/10 ML VIAL ONE (02:16)
[2017-05-05] MEDS ORDERED: MIDAZOLAM HCL 5 MG/ML VIAL (1 ML) ONE (02:19)
[2017-05-05] MEDS ORDERED: SUCCINYLCHOLINE CHLORIDE 200 MG/10 ML VIAL IV PUSH ONE (02:30)
[2017-05-05] MEDS ORDERED: MIDAZOLAM HCL 2 MG/2 ML VIAL IV PUSH ONE (02:30)
[2017-05-05] MEDS ORDERED: ETOMIDATE 20 MG/10 ML VIAL IV PUSH ONE (02:30)
--- NOTE | 2017-05-05 02:46 | PD.PROCEDR ---
Procedure Note Procedure Endotracheal Intubation A time-out was completed verifying correct patient, procedure, site, positioning , and special equipment if applicable. The patient was placed in a flat position. Sedation was obtained using Etomidate 20mg. The patient was easily ventilated using an ambu bag. The [employer]/ MAC 4 BLADE was used and inserted into the oropharynx at which time there was a Grade 1 view of the vocal cords. A 8-belarusian endotracheal tube was inserted and visualized going through the vocal cords. The stylette was removed. Colorimetric change was visualized on the CO2 meter. Breath sounds were heard in both lung ralph equally. The endotracheal tube was placed at 23 cm, measured at the teeth. A chest x-ray was ordered to assess for pneumothorax and verify endotrachealtube placement. Estimated Blood Loss: 0 The patient tolerated the procedure well and there were no complications. Patricio Landrum MD May 05, 2017 02:46
--- NOTE | 2017-05-05 02:47 | PD.PROCEDR ---
Procedure Note Procedure Centerline placement A time-out was completed verifying correct patient, procedure, site, positioning , and special equipment if applicable. The patient was placed in a dependent position appropriate for central line placement based on the vein to be cannulated. The patients left neck was prepped and draped in sterile fashion. 1 % Lidocaine was used to anesthetize the surrounding skin area. A triple lumen 9 [place] catheter was introduced into the the internal jugular vein using the Seldinger technique and under ultrasound guidance. The catheter was threaded smoothly over the guide wire and appropriate blood return was obtained. Each lumen of the catheter was evacuated of air and flushed with sterile saline. The catheter was then sutured in place to the skin and a sterile dressing applied. Perfusion to the extremity distal to the point of catheter insertion was checked and found to be adequate. Estimated Blood Loss: 1ml The patient tolerated the procedure well and there were no complications. Patricio Landrum MD May 05, 2017 02:47
[2017-05-05] MEDS ORDERED: NOREPINEPHRINE-DEXTROSE DRIP 250 ML IV ONE (03:12)
[2017-05-05 03:29] LABS: BASOPHIL # 0.1 TH/MM3 (0-0.2); BASOPHIL % 1.3 % (0.0-2.0); EOSINOPHIL # 0.1 TH/MM3 (0-0.4); EOSINOPHIL % 1.6 % (0.0-4.0); LYMPH % 19.9 % (9.0-44.0); LYMPHOCYTE # 1.2 TH/MM3 (1.0-4.8); MEAN CELL VOLUME 91.3 FL (80.0-100.0); MEAN CORPUSCULAR HEMOGLOBIN 29.5 PG (27.0-34.0); MEAN CORPUSCULAR HGB CONC 32.3 % (32.0-36.0); MONO % 10.2 % (0.0-8.0); PLATELET COUNT 116 TH/MM3 (150-450); RED BLOOD COUNT 2.14 MIL/MM3 (4.50-5.90); RED CELL DISTRIBUTION WIDTH 21.1 % (11.6-17.2); WHITE BLOOD COUNT 5.9 TH/MM3 (4.0-11.0)
[2017-05-05 03:31] LABS: HEMO FLAGS AUTO DIFF; REVIEW FLAG AUTO DIFF
[2017-05-05 03:35] LABS: HEMATOCRIT 19.5 % (39.0-51.0)
[2017-05-05] MEDS ORDERED: NOREPINEPHRINE-DEXTROSE DRIP 250 ML IV PRN (03:45)
[2017-05-05] MEDS ORDERED: TERBUTALINE INJ 1 MG/ML AMP SQ PRN (03:45)
[2017-05-05 03:49] LABS: CALCIUM-PROTEIN CORRECTED 8.4 MG/DL (8.5-10.1); POTASSIUM 5.1 MEQ/L (3.5-5.1); TOTAL BILIRUBIN ADULT 1.2 MG/DL (0.2-1.0)
[2017-05-05] MEDS: CHLORHEXIDINE GLUCONATE 2 % 1 PACK (2 CLOTHS) TOP SCH (04:00)
[2017-05-05 04:11] LABS: PLATELET ESTIMATE SMEAR LOW (NORMAL)
[2017-05-05 04:12] LABS: PLATELET MORPHOLOGY NORMAL (NORMAL); SCAN/DIFF AUTO DIFF CONFIRMED
[2017-05-05 04:14] LABS: OVALOCYTES 1+ (NORMAL)
[2017-05-05] MEDS: MIDAZOLAM 100 MG/100 ML INJ 100 ML IV PRN ×2 (04:22→12:25)
[2017-05-05] MEDS: fentaNYL DRIP 250 ML IV PRN ×2 (04:22→12:24)
[2017-05-05] MEDS: SODIUM CHLOR 0.9% 1000 ML INJ 1,000 ML IV SCH ×2 (05:00→16:49)
--- NOTE | 2017-05-05 05:03 | RADRPT ---
EXAM DATE/TIME: 05/05/2017 02:42 [place] COMPARISON: CHEST SINGLE AP, May 04, 2017, 15:21. INDICATIONS : Short of breath. Central line placement. MEDICAL HISTORY : Ulcers. Hypercholesterolemia. Hypertension. Hepatitis C. Diabetic SURGICAL HISTORY : Tonsillectomy. Appendectomy. Paracentesis. ENCOUNTER: Subsequent ACUITY: 2 days PAIN SCORE: 0/10 LOCATION: Bilateral chest FINDINGS: Patient has been intubated with ETT at the level of the clavicles. Left IJ central line with catheter tip in the proximal right atrium. A minimal linear peripheral opacities in the left lung base. Cardi stomach contours are stable. Remainder of exam is unchanged. CONCLUSION: 1. ETT in good position. Left IJ central line catheter tip in the proximal right atrium. No pneumotho rax. 2. Stable left basilar atelectasis. Dillon Herbert MD on May 05, 2017 at 5:00 Board Certified Radiologist. This report was verified electronically.
--- NOTE | 2017-05-05 05:30 | PD.PROCEDR ---
Procedure Note Procedure Arterial line placement A time-out was completed verifying correct patient, procedure, site, positioning , and special equipment if applicable. Allens test was performed to ensure adequate perfusion. The patients right wrist was prepped and draped in sterile fashion. 1% Lidocaine was used to anesthetize the area. A 18G Arrow arterial line was introduced into the radial artery. The catheter was threaded over the guide wire and the needle was removed with appropriate pulsatile blood return. The catheter was then sutured in place to the skin and a sterile dressing applied. Perfusion to the extremity distal to the point of catheter insertion was checked and found to be adequate. Estimated Blood Loss: 1ml The patient tolerated the procedure well and there were no complications. Patricio Landrum MD May 05, 2017 5:30 am
[2017-05-05 05:59] LABS: BLOOD GAS BASE EXCESS -3.5 mmol/L (-2-2); BLOOD GAS CARBOXYHEMOGLOBIN 2.1 % (0-4); BLOOD GAS HCO3 20 mmol/L (22-26); BLOOD GAS METHEMOGLOBIN 1.3 % (0-2); BLOOD GAS O2 HGB SATURATION 97 % (90-100); BLOOD GAS OXYGEN CONTENT 9.2 Vol % (12.0-20.0); BLOOD GAS PCO2 33 mmHg (38-42); BLOOD GAS PO2 329 mmHg (61-120); BLOOD GAS TOTAL HGB 6.1 G/DL (12.0-16.0); TEMP CORR TO 98.6
[2017-05-05] MEDS: INSULIN ASPART SUPPLEMENTAL SCALE SQ SCH ×5 (06:00→23:35)
[2017-05-05] MEDS: ALBUMIN HUMAN 25% 25 GM/100 ML BAGP IV SCH ×2 (06:00→18:00)
[2017-05-05 06:02] LABS: CRITICAL VALUE YES; OXYGEN DEVICE VENTILATOR
[2017-05-05 06:03] LABS: DRAW SITE ART LINE; FIO2 70 %; STAT YES; VENT SETTINGS PRVC
--- NOTE | 2017-05-05 08:55 | HHI.CCPN ---
Subjective Remarks/Hospital Course Patient is a 56-year-old male who presented to the emergency department for evaluation of large amounts of melanotic stools which started about 3 hours prior to presentation, apparently 4-5 episodes. Patient has history of esophageal varices, portal hypertension, hepatitis C, liver cirrhosis , thrombocytopenia, diabetes type 2, hypertension. Most recent admission was in January 2017 and his EGD at that time showed large grade 4 esophageal varices and he underwent banding. CBC showed hemoglobin 9.0, hematocrit 27.7, platelet count of 79. CMP shows hyperglycemia 311. In the ER patient had been started on IV Protonix infusion and IV octreotide infusion. He also received 500 mL crystalloid bolus by EMS. I evaluated the patient in the ED. He continues to have melanotic stools. Abdomen is distended slightly tender. Patient had been ordered to receive 2 units of PRBC. I have ordered 1 unit of platelets stat. Dr. Bartlett from GI had been contacted by ED. Patient will need EGD once stable, and also paracentesis. I have started patient on Rocephin 2 g IV daily for SBP prophylaxis. The patient was apparently started on hep C treatment today-but due to GI bleed he missed the dose, will hold while patient is nothing by mouth. Patient denies active alcohol use SUBJ 05/05: Yesterday night patient developed massive hematemesis and hemorrhagic shock. Actively resuscitated and the patient was emergently intubated placed on mechanical ventilation, by Dr. Landrum. Arterial line and central line placed. Patient had previously received 2 units of PRBC in the ED 3 for additional units of blood ordered for a hemoglobin of 6.3. Currently intubated sedated but remains on Levophed at 5 mcg/m. GI planning on endoscopy Objective Vital Signs Date Time Temp Pulse Resp B/P (MAP) Pulse Ox O2 Delivery O2 Flow Rate FiO2 05/05/17 08:27 100 40 05/05/17 06:00 57 05/05/17 05:13 97.9 18 83/52 05/04/17 22:00 Room Air Intake and Output 05/05/17 05/05/17 05/06/17 08:00 16:00 00:00 Intake Total 3689 ml Output Total 2450 ml Balance 1239 ml Result Diagram: 05/05/17 0313 05/05/17 0313 Other Results Laboratory Tests Test 05/05/17 05:24 Blood Gas Puncture Site ART LINE Blood Gas Patient Temperature 98.6 Blood Gas HCO3 20 mmol/L (22-26) Blood Gas Base Excess -3.5 mmol/L (-2-2) Blood Gas Oxygen Saturation 97 % (90-100) Arterial Blood pH 7.40 (7.380-7.420) Arterial Blood Partial Pressure CO2 33 mmHg (38-42) Arterial Blood Partial Pressure O2 329 mmHg (61-120) Arterial Blood Oxygen Content 9.2 Vol % (12.0-20.0) Arterial Blood Carboxyhemoglobin 2.1 % (0-4) Arterial Blood Methemoglobin 1.3 % (0-2) Blood Gas Hemoglobin 6.1 G/DL (12.0-16.0) Oxygen Delivery Device VENTILATOR Blood Gas Ventilator Setting PRVC Blood Gas Inspired Oxygen 70 % Imaging Chest x-ray shows no acute findings Objective Remarks GENERAL: Well-nourished, well-developed male patient, pale intubated sedated SKIN: Focused skin assessment warm/dry. HEAD: Normocephalic. Atraumatic. EYES: No scleral icterus, pale. No injection or drainage. ENT: Orotracheally intubated. Stigmata of recent GI bleed NECK: Supple, trachea midline. No JVD or lymphadenopathy. CARDIOVASCULAR: Regular rate and rhythm without murmurs, gallops, or rubs. Hypotensive on Levophed at 5 mcg/m RESPIRATORY: Breath sounds equal bilaterally. No accessory muscle use. Lungs sounds are clear to auscultation. GASTROINTESTINAL: Abdomen distended, nontender to palpation. + Fluid thrill. Bedside ultrasound shows minimal acetic fluid MUSCULOSKELETAL: No cyanosis, 1+ pitting edema. BACK: Nontender without obvious deformity. No CVA tenderness. NEURO: Intubated sedated, moves all extremities spontaneously A/P Assessment and Plan Neuro/Psych: History of alcohol dependence History of hepatic encephalopathy - Versed and fentanyl for sedation and ventilator synchrony. No sedation vacation until EGD completed hemodynamically stable - Hold Xifaxan and lactulose while nothing by mouth. - Morphine for pain management - Patient denies active alcohol use CV: Hemorrhagic shock History of Hypertension Dyslipidemia - Receiving 3 units of PRBC, total 5 units in the last 12 hours - Continue maintenance IV fluids. Levophed to keep map above 65 - Monitor HR and BP keep MAP>65mmHg - Hold beta blockers at this time due to GI bleed, hold Aldactone 100 mg daily - Continue IV albumin Resp: - Oxygen PRN keep sat > 92% - DuoNeb every 6 hours when necessary GI/HEME: Massive Upper GI bleed from grade 4 varices Severe anemia requiring transfusion Cirrhosis from alcoholism and hepatitis C History of portal vein thrombosis Hypo-albuminemia Ascites, mild - Nothing by mouth, IV Protonix infusion, IV octreotide infusion - 5U PRBC in last 24 hours, one pack units of platelets. H&H every 8 hours - Rocephin for SBP prophylaxis started - GI Dr. Bartlett, EGD today - EGD 02/03/17 - grade 4 esophageal varices status post banding - Apparently had been started on hep C treatment with ribavirin and Epclusa- hold while NPO /Renal: Prerenal azotemia History of BPH - Monitor renal function, electrolytes replacement as needed - Normal saline IV fluids 84 mL per hour Endo: Diabetes mellitus with neuropathy Hyperglycemia - Sliding-scale every q4hr - Electrolyte Replacement per protocol ID: - On prophylaxis Rocephin for SBP - Send blood cultures 2 - Not enough ascites fluid for paracentesis Access - Utilize peripheral IV. Prophylaxis - GI - Protonix drip - DVT - SCD/LIDA. pharmacological prophylaxis contraindicated with acute GI bleed CCT 45 MIN Cory Olsen MD May 05, 2017 08:55
[2017-05-05] MEDS ORDERED: SPIRONOLACTONE 100 MG TAB PO SCH (09:00)
[2017-05-05] MEDS ORDERED: CALCIUM CHLORIDE INJ 2 GM in DEXTROSE 5% IN WATER 100ML INJ 100 ML IV ONE ×2 (10:00)
[2017-05-05] MEDS ORDERED: PROPOFOL 200 MG/20 ML AMP IV PUSH ONE (10:28)
--- NOTE | 2017-05-05 11:30 | HHI.GIFU ---
Subjective Remarks Esophagoscopy with banding performed. There was a nipple sign on a large distal varix and that seems to be where the bleeding was from. 4 bands applied on 3 varices. Bleeding seemed controlled. There was a great deal of blood in the upper stomach. the stomach and duodenum could not be examined further, cannot rule out gastric varices. Pt probably needs TIPSS to prevent further bleeding as he has been bleeding frequently from varices. He reportedly has portal vein thrombosis and that may preclude TIPSS. We will check with IR. Objective Vitals I&O Vital Signs Date Time Temp Pulse Resp B/P (MAP) Pulse Ox O2 Delivery O2 Flow Rate FiO2 05/05/17 08:27 100 40 05/05/17 06:00 57 05/05/17 05:38 100 50 05/05/17 05:13 97.9 56 18 83/52 100 05/05/17 04:24 55 88/53 05/05/17 04:00 97.6 58 18 82/51 (61) 100 05/05/17 04:00 58 05/05/17 04:00 70 05/05/17 03:12 60 77/50 05/05/17 02:25 100 70 05/05/17 02:00 86 05/05/17 00:59 19 05/05/17 00:18 98.9 74 27 155/74 95 05/05/17 00:00 72 05/05/17 00:00 98.9 72 20 155/74 (101) 98 05/04/17 23:40 05/04/17 23:36 98 05/04/17 22:00 74 20 134/65 (88) 98 Room Air 05/04/17 21:44 72 20 131/62 (85) 98 Room Air 05/04/17 21:43 72 20 131/62 98 05/04/17 21:25 76 18 125/68 (87) 98 Room Air 05/04/17 21:13 99.1 74 18 115/69 98 05/04/17 21:10 99.1 71 18 115/69 98 05/04/17 18:38 99.5 77 18 123/69 97 05/04/17 18:18 98.5 77 20 134/65 97 05/04/17 15:07 (117) 100 05/04/17 15:03 173/89 (117) 05/04/17 14:59 98.6 79 18 173/87 (115) 99 I/O 05/04/17 05/04/17 05/04/17 05/05/17 05/05/17 05/05/17 07:00 15:00 23:00 07:00 15:00 23:00 Intake Total 430 ml 3954 ml 50 ml Output Total 2450 ml Balance 430 ml 1504 ml 50 ml IV Total 135 ml 2045 ml Packed Cells 250 ml 1037 ml Platelets 812 ml Blood Product IV Normal Saline Flush 45 ml 60 ml Other 50 ml Output Urine Total 650 ml Emesis 1800 ml # Bowel Movements 1 0 Laboratory Laboratory Tests Test 05/04/17 15:00 05/04/17 17:55 05/04/17 22:05 05/04/17 23:44 White Blood Count 6.2 Red Blood Count 2.94 Hemoglobin 9.0 9.5 Hematocrit 27.7 29.8 Mean Corpuscular Volume 94.1 Mean Corpuscular Hemoglobin 30.7 Mean Corpuscular Hemoglobin Concent 32.6 Red Cell Distribution Width 18.9 Platelet Count 79 Mean Platelet Volume 9.9 Neutrophils (%) (Auto) 76.3 Lymphocytes (%) (Auto) 12.7 Monocytes (%) (Auto) 8.6 Eosinophils (%) (Auto) 1.5 Basophils (%) (Auto) 0.9 Neutrophils # (Auto) 4.7 Lymphocytes # (Auto) 0.8 Monocytes # (Auto) 0.5 Eosinophils # (Auto) 0.1 Basophils # (Auto) 0.1 CBC Comment AUTO DIFF Differential Comment AUTO DIFF CONFIRMED Platelet Estimate NORMAL Platelet Morphology Comment NORMAL Prothrombin Time 12.0 Prothromb Time International Ratio 1.1 Activated Partial Thromboplast Time 25.2 Blood Urea Nitrogen 19 Creatinine 0.88 Random Glucose 311 Total Protein 6.3 Albumin 2.2 Calcium Level 7.6 Alkaline Phosphatase 108 Aspartate Amino Transf (AST/SGOT) 53 Alanine Aminotransferase (ALT/SGPT) 42 Total Bilirubin 1.5 Sodium Level 135 Potassium Level 4.4 Chloride Level 106 Carbon Dioxide Level 22.3 Anion Gap 7 Estimat Glomerular Filtration Rate 89 Lipase 160 Ammonia 69 Nasal Screen MRSA (PCR) MRSA NOT DETECTED Test 05/05/17 03:13 05/05/17 05:24 White Blood Count 5.9 Red Blood Count 2.14 Hemoglobin 6.3 Hematocrit 19.5 Mean Corpuscular Volume 91.3 Mean Corpuscular Hemoglobin 29.5 Mean Corpuscular Hemoglobin Concent 32.3 Red Cell Distribution Width 21.1 Platelet Count 116 Mean Platelet Volume 8.8 Neutrophils (%) (Auto) 67.0 Lymphocytes (%) (Auto) 19.9 Monocytes (%) (Auto) 10.2 Eosinophils (%) (Auto) 1.6 Basophils (%) (Auto) 1.3 Neutrophils # (Auto) 4.0 Lymphocytes # (Auto) 1.2 Monocytes # (Auto) 0.6 Eosinophils # (Auto) 0.1 Basophils # (Auto) 0.1 CBC Comment AUTO DIFF Differential Comment AUTO DIFF CONFIRMED Platelet Estimate LOW Platelet Morphology Comment NORMAL Basophilic Stippling FAINT Ovalocytes 1+ Blood Urea Nitrogen 22 Creatinine 0.74 Random Glucose 211 Total Protein 4.6 Albumin 1.8 Calcium Level 7.0 Alkaline Phosphatase 65 Aspartate Amino Transf (AST/SGOT) 42 Alanine Aminotransferase (ALT/SGPT) 30 Total Bilirubin 1.2 Sodium Level 140 Potassium Level 5.1 Chloride Level 110 Carbon Dioxide Level 25.0 Anion Gap 5 Estimat Glomerular Filtration Rate 109 Protein Corrected Calcium 8.4 Blood Gas Puncture Site ART LINE Blood Gas Patient Temperature 98.6 Blood Gas HCO3 20 Blood Gas Base Excess -3.5 Blood Gas Oxygen Saturation 97 Arterial Blood pH 7.40 Arterial Blood Partial Pressure CO2 33 Arterial Blood Partial Pressure O2 329 Arterial Blood Oxygen Content 9.2 Arterial Blood Carboxyhemoglobin 2.1 Arterial Blood Methemoglobin 1.3 Blood Gas Hemoglobin 6.1 Oxygen Delivery Device VENTILATOR Blood Gas Ventilator Setting PRVC Blood Gas Inspired Oxygen 70 Date/Time Source Procedure Growth Status 05/04/17 18:30 Blood Peripheral Aerobic Blood Culture - Preliminary NO GROWTH IN 1 DAY Resulted 05/04/17 18:30 Blood Peripheral Anaerobic Blood Culture - Preliminary NO GROWTH IN 1 DAY Resulted Physical Exam HEENT: On the ventilator NECK: Neck is supple, no JVD, no lymphadenopathy. CHEST: Chest is clear to auscultation and percussion. CARDIAC: Regular rate and rhythm with no murmur gallop or rubs. ABDOMEN: Abdomen is distended. EXTREMITIES: No clubbing, cyanosis, or edema. SKIN: Normal; no rash; no jaundice. 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 Ascites, rule out SBP Edema in legs. Esophagoscopy showed bleeding from esophageal varices. Cannot rule out bleeding sites in stomach or duodenum. Bands x 4 applied. Plan: Maintain on Ventilator for airway protection Continue Octreotide and Protonix drips. Transfuse as needed. Consult IR for TIPSS placement NPO US abdomen with doppler re portal vein Paracentesis Treat prophylactically for SBP Continue medication for hep C. Further recs as the case progresses. Len Bartlett MD May 05, 2017 11:30
--- NOTE | 2017-05-05 14:34 | EKG ---
Date Performed: 05/04/2017 Time Performed: 16:14:50 PTAGE: 56 years EKG: Sinus rhythm WITH OCCASIONAL SUPRAVENTRICULAR PREMATURE COMPLEXES BORDERLINE ECG Compared to prior tracing no sig nificant change PREVIOUS TRACING : 02/02/2017 02.22 DOCTOR: Zeke Desouza Interpretating Date/Time 05/05/2017 14:31:28
[2017-05-05] MEDS ORDERED: DO NOT ADM ANY ANTICOAGULANT DRUGS PRN (16:30)
--- NOTE | 2017-05-05 17:24 | RADRPT ---
EXAM DATE/TIME: 05/05/2017 12:56 [facility] COMPARISON: US ABDOMEN - LIVER, February 02, 2017, 9:32. INDICATIONS : Increased lab values. MEDICAL HISTORY : Hypercholesterolemia. Hypertension. Hepatitis C. Neuropathy. Ulcer. Diabetes. Melana. Chicken pox. SURGICAL HISTORY : Tonsillectomy. Appendectomy. Right clavicular metal plate. Blood transfusion. ENCOUNTER: Subsequent ACUITY: 1 day PAIN SCORE: Nonresponsive. LOCATION: Bilateral upper quadrant MEASUREMENTS: LIVER: 14.0 cm length COMMON DUCT: 6 mm RIGHT KIDNEY: 12.1 x 4.5 x 5.3 cm SPLEEN: 16.6 cm length FINDINGS: Moderate amount of ascites the abdomen. LIVER: Heterogeneous echotexture to the liver, similar to prior. Hepatopedal flow is seen in the main jeanine l vein. Flow in the branch portal veins is not documented. COMMON DUCT: No intraluminal mass or stone visualized. GALLBLADDER: Contains no stones, demonstrates no wall thickening or pericholecystic fluid. PANCREAS: The visualized portions are within normal limits. RIGHT KIDNEY: No hydronephrosis, stone or mass. SPLEEN: No focal lesion. CONCLUSION: 1. Splenomegaly without focal lesion. 2. No focal lesion seen in the liver, but there is a heterogeneous echotexture. Overall liver size h as decreased when compared to January 2017. 3. Hepatopedal flow seen in the main portal vein. 4. Ascites. Raad Pulido MD on May 05, 2017 at 17:19 Board Certified Radiologist. This report was verified electronically.
[2017-05-05 18:47] LABS: HEMATOCRIT 26.4 % (39.0-51.0)
[2017-05-05 18:49] LABS: REVIEW FLAG FINAL
[2017-05-05] MEDS: cefTRIAXone INJ 2,000 MG in SODIUM CHLORIDE 0.9% INJ 100 ML IV SCH (20:17)
[2017-05-05 23:17] LABS: HEMATOCRIT 24.9 % (39.0-51.0)
[2017-05-05 23:18] LABS: REVIEW FLAG FINAL
[2017-05-06] VITALS (23 sets, daily range): BP systolic 99–179; BP diastolic 52–82; PULSE 66–115; RESP 7–19; TEMP 97.9–99.3; O2SAT 91–100
[2017-05-06] MEDS: fentaNYL DRIP 250 ML IV PRN ×2 (01:03→18:21)
[2017-05-06] MEDS: CHLORHEXIDINE GLUCONATE 2 % 1 PACK (2 CLOTHS) TOP SCH (04:00)
[2017-05-06] MEDS: SODIUM CHLOR 0.9% 1000 ML INJ 1,000 ML IV SCH ×3 (04:44→20:09)
[2017-05-06] MEDS: INSULIN ASPART SUPPLEMENTAL SCALE SQ SCH ×3 (05:25→18:00)
[2017-05-06] MEDS: ALBUMIN HUMAN 25% 25 GM/100 ML BAGP IV SCH ×2 (05:25→18:21)
[2017-05-06] MEDS: MIDAZOLAM 100 MG/100 ML INJ 100 ML IV PRN (06:44)
[2017-05-06] MEDS: OCTREOTIDE INJ 500 MCG in SODIUM CHLORID 0.9% 500 ML INJ 500 ML IV SCH ×2 (09:07→18:21)
[2017-05-06] MEDS: PANTOPRAZOLE INJ 80 MG in SODIUM CHLORIDE 0.9% INJ 100 ML IV SCH ×2 (09:07→18:20)
--- NOTE | 2017-05-06 11:07 | HHI.CCPN ---
Subjective Remarks/Hospital Course Patient is a 56-year-old male who presented to the emergency department for evaluation of large amounts of melanotic stools which started about 3 hours prior to presentation, apparently 4-5 episodes. Patient has history of esophageal varices, portal hypertension, hepatitis C, liver cirrhosis , thrombocytopenia, diabetes type 2, hypertension. Most recent admission was in January 2017 and his EGD at that time showed large grade 4 esophageal varices and he underwent banding. CBC showed hemoglobin 9.0, hematocrit 27.7, platelet count of 79. CMP shows hyperglycemia 311. In the ER patient had been started on IV Protonix infusion and IV octreotide infusion. He also received 500 mL crystalloid bolus by EMS. I evaluated the patient in the ED. He continues to have melanotic stools. Abdomen is distended slightly tender. Patient had been ordered to receive 2 units of PRBC. I have ordered 1 unit of platelets stat. Dr. Bartlett from GI had been contacted by ED. Patient will need EGD once stable, and also paracentesis. I have started patient on Rocephin 2 g IV daily for SBP prophylaxis. The patient was apparently started on hep C treatment today-but due to GI bleed he missed the dose, will hold while patient is nothing by mouth. Patient denies active alcohol use SUBJ 05/05: Yesterday night patient developed massive hematemesis and hemorrhagic shock. Actively resuscitated and the patient was emergently intubated placed on mechanical ventilation, by Dr. Landrum. Arterial line and central line placed. Patient had previously received 2 units of PRBC in the ED 3 for additional units of blood ordered for a hemoglobin of 6.3. Currently intubated sedated but remains on Levophed at 5 mcg/m. GI planning on endoscopy 05/06: Esophagoscopy with banding performed 05/05. Bands applied on 3 varices. Bleeding seemed controlled hemodynamically improving. According to GI notes, large amount of blood in stomach limited examination of stomach and duodenum. Could not rule out gastric varices. GI recommended TIPSS to prevent further bleeding but has hx of portal vein thrombosis. GI will discuss with IR Objective Vital Signs Date Time Temp Pulse Resp B/P (MAP) Pulse Ox O2 Delivery O2 Flow Rate FiO2 05/06/17 09:26 100 40 05/06/17 06:00 75 05/06/17 04:00 97.9 18 123/74 (90) 123/59 (80) 05/04/17 22:00 Room Air Intake and Output 05/06/17 05/06/17 05/07/17 08:00 16:00 00:00 Intake Total 4560 ml Output Total 600 ml Balance 3960 ml Result Diagram: 05/05/17 2304 05/05/17 0313 Imaging Chest x-ray shows no acute findings Objective Remarks GENERAL: Well-nourished, well-developed male patient, pale intubated sedated SKIN: Focused skin assessment warm/dry. HEAD: Normocephalic. Atraumatic. EYES: No scleral icterus, pale. No injection or drainage. ENT: Orotracheally intubated. NECK: Supple, trachea midline. No JVD or lymphadenopathy. CARDIOVASCULAR: Regular rate and rhythm without murmurs, gallops, or rubs. Normotensive RESPIRATORY: Breath sounds equal bilaterally. No accessory muscle use. Lungs sounds are clear to auscultation. GASTROINTESTINAL: Abdomen distended, nontender to palpation. + Fluid thrill. Bedside ultrasound shows minimal acetic fluid MUSCULOSKELETAL: No cyanosis, 1+ pitting edema. NEURO: Intubated sedated, moves all extremities spontaneously. A/P Assessment and Plan Neuro/Psych: History of alcohol dependence History of hepatic encephalopathy - Versed and fentanyl for sedation and ventilator synchrony. Hold sedation for SBT - Hold Xifaxan and lactulose while nothing by mouth an cleared by GI - Morphine for pain management - Patient denies active alcohol use CV: Hemorrhagic shock -resolved History of Hypertension Dyslipidemia - Received 5 units of PRBC, since admission - Continue maintenance IV fluids. Monitor HR and BP keep MAP>65mmHg - Hold beta blockers at this time due to GI bleed, hold Aldactone 100 mg daily - Continue IV albumin Resp: - SBT with possible extubation - DuoNeb every 6 hours when necessary GI/HEME: Massive Upper GI bleed from grade 4 varices Severe anemia requiring transfusion Cirrhosis from alcoholism and hepatitis C History of portal vein thrombosis Hypo-albuminemia Ascites, mild - Esophagoscopy with banding performed 05/05. Could not rule out gastric varices due to large amount. GI Dr. Bartlett - GI recommended TIPSS to prevent further bleeding but has hx of portal vein thrombosis. GI will discuss with IR - Continue, IV Protonix infusion, IV octreotide infusion - 5U PRBC in last 24 hours, one pack units of platelets since his admission. H& H every 8 hours - Rocephin for SBP prophylaxis started - Previous EGD 02/03/17 - grade 4 esophageal varices status post banding - Apparently had been started on hep C treatment with ribavirin and Epclusa- hold while NPO /Renal: Prerenal azotemia History of BPH - Monitor renal function, electrolytes replacement as needed - Normal saline IV fluids 84 mL per hour-DC today Endo: Diabetes mellitus with neuropathy Hyperglycemia - Sliding-scale every q4hr - Electrolyte Replacement per protocol ID: - On prophylaxis with Rocephin for SBP - Send blood cultures 2 - Not enough ascites fluid for paracentesis Access - Utilize peripheral IV. DC central line in 24 hours. DC art line today Prophylaxis - GI - Protonix drip - DVT - SCD/LIDA. pharmacological prophylaxis contraindicated with acute GI bleed CCT 32 MIN Cory Olsen MD May 06, 2017 11:07
[2017-05-06 12:47] LABS: AUTOMATED NEUTROPHIL # 3.5 TH/MM3 (1.8-7.7); BASOPHIL % 0.9 % (0.0-2.0); EOSINOPHIL # 0.1 TH/MM3 (0-0.4); EOSINOPHIL % 1.9 % (0.0-4.0); HEMATOCRIT 25.3 % (39.0-51.0); LYMPH % 13.8 % (9.0-44.0); LYMPHOCYTE # 0.7 TH/MM3 (1.0-4.8); MEAN CELL VOLUME 92.9 FL (80.0-100.0); MEAN CORPUSCULAR HEMOGLOBIN 30.1 PG (27.0-34.0); MEAN CORPUSCULAR HGB CONC 32.4 % (32.0-36.0); MONO % 9.9 % (0.0-8.0); NEUT % 73.5 % (16.0-70.0); PLATELET COUNT 72 TH/MM3 (150-450); RED BLOOD COUNT 2.73 MIL/MM3 (4.50-5.90); RED CELL DISTRIBUTION WIDTH 18.8 % (11.6-17.2); WHITE BLOOD COUNT 4.8 TH/MM3 (4.0-11.0)
[2017-05-06 12:55] LABS: HEMO FLAGS AUTO DIFF
[2017-05-06 13:28] LABS: BANDS 5 % (0-6); EOSINOPHILS 1 % (0-4); NEUTROPHIL # MANUAL DIFF 3.5 TH/MM3 (1.8-7.7); POLYS (SEG NEUTROPHILS) 67 % (16-70); WBC DIFF SAMPLE 100
[2017-05-06 13:29] LABS: PLATELET ESTIMATE SMEAR LOW (NORMAL); PLATELET MORPHOLOGY NORMAL (NORMAL); SCAN/DIFF FINAL DIFF MANUAL
[2017-05-06] MEDS ORDERED: LABETALOL HCL 100 MG/20 ML VIAL IV PRN (14:00)
--- NOTE | 2017-05-06 14:51 | HHI.GIFU ---
Subjective Remarks Pt intubated, off sedation, CPAP trials under way. Scant dark brown drainage from OGT. (Carissa Zhu) Objective Vitals I&O Vital Signs Date Time Temp Pulse Resp B/P (MAP) Pulse Ox O2 Delivery O2 Flow Rate FiO2 05/06/17 11:06 100 40 05/06/17 11:05 40 05/06/17 09:26 100 40 05/06/17 06:00 75 05/06/17 04:00 97.9 69 18 123/74 (90) 100 123/59 (80) 05/06/17 04:00 40 05/06/17 04:00 69 05/06/17 03:50 100 40 05/06/17 02:00 68 05/06/17 01:39 100 40 05/06/17 00:00 66 05/06/17 00:00 98.0 66 18 113/68 (83) 100 119/56 (77) 05/06/17 00:00 40 05/05/17 22:00 69 05/05/17 20:46 100 40 05/05/17 20:00 40 05/05/17 20:00 69 05/05/17 20:00 98.3 69 18 118/72 (87) 100 125/58 (80) 05/05/17 18:00 71 18 118/72 (87) 100 124/59 (80) 05/05/17 17:00 73 18 128/72 (90) 100 131/65 (87) 05/05/17 16:00 98.8 74 18 120/72 (88) 100 135/68 (90) 05/05/17 16:00 70 05/05/17 15:37 100 40 05/05/17 15:00 75 19 137/75 (95) 100 149/73 (98) I/O 05/05/17 05/05/17 05/05/17 05/06/17 05/06/17 05/06/17 06:59 14:59 22:59 06:59 14:59 22:59 Intake Total 3954 ml 850 ml 415 ml 4560 ml Output Total 2450 ml 700 ml 600 ml Balance 1504 ml 850 ml -285 ml 3960 ml IV Total 2045 ml 500 ml 150 ml 4460 ml Albumin 100 ml Packed Cells 1037 ml 250 ml 250 ml Platelets 812 ml Blood Product IV Normal Saline Flush 60 ml 50 ml 15 ml Other 50 ml Output Urine Total 650 ml 700 ml 600 ml Emesis 1800 ml # Bowel Movements 0 0 0 Laboratory Laboratory Tests Test 05/05/17 17:36 05/05/17 23:04 05/06/17 11:00 Hemoglobin 8.9 8.4 8.2 Hematocrit 26.4 24.9 25.3 White Blood Count 4.8 Red Blood Count 2.73 Mean Corpuscular Volume 92.9 Mean Corpuscular Hemoglobin 30.1 Mean Corpuscular Hemoglobin Concent 32.4 Red Cell Distribution Width 18.8 Platelet Count 72 Mean Platelet Volume 9.9 Neutrophils (%) (Auto) 73.5 Lymphocytes (%) (Auto) 13.8 Monocytes (%) (Auto) 9.9 Eosinophils (%) (Auto) 1.9 Basophils (%) (Auto) 0.9 Neutrophils # (Auto) 3.5 Lymphocytes # (Auto) 0.7 Monocytes # (Auto) 0.5 Eosinophils # (Auto) 0.1 Basophils # (Auto) 0.0 CBC Comment AUTO DIFF Differential Total Cells Counted 100 Neutrophils % (Manual) 67 Band Neutrophils % 5 Lymphocytes % 17 Monocytes % 10 Eosinophils % 1 Neutrophils # (Manual) 3.5 Differential Comment FINAL DIFF MANUAL Platelet Estimate LOW Platelet Morphology Comment NORMAL Date/Time Source Procedure Growth Status 05/04/17 18:30 Blood Peripheral Aerobic Blood Culture - Preliminary NO GROWTH IN 2 DAYS Resulted 05/04/17 18:30 Blood Peripheral Anaerobic Blood Culture - Preliminary NO GROWTH IN 2 DAYS Resulted Imaging Last Impressions Liver Ultrasound 05/05/17 0000 Signed Impressions: Service Date/Time: Friday, May 05, 2017 12:56 - CONCLUSION: 1. Splenomegaly without focal lesion. 2. No focal lesion seen in the liver, but there is a heterogeneous echotexture. Overall liver size has decreased when compared to January 2017. 3. Hepatopedal flow seen in the main portal vein. 4. Ascites. Raad Pulido MD Chest X-Ray 05/05/17 0000 Signed Impressions: Service Date/Time: Friday, May 05, 2017 02:42 - CONCLUSION: 1. ETT in good position. Left IJ central line catheter tip in the proximal right atrium. No pneumothorax. 2. Stable left basilar atelectasis. Dillon Herbert MD Physical Exam HEENT: intubated, OGT CHEST: CTA CARDIAC: RRR ABDOMEN: Abdomen is distended, soft EXTREMITIES: No clubbing, cyanosis, + BLE edema. SKIN: Normal; no rash; no jaundice. 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 s/p EGD -->Esophagoscopy showed bleeding from esophageal varices. Cannot rule out bleeding sites in stomach or duodenum. Bands x 4 applied. blood stomach. - Ascites, rule out SBP - US liver --> splenomegaly, heterogeneous echotexture liver, liver size decreaed from January, hepatopedal flow seen in main portal vein, ascites - Edema in legs. Plan: - Continue Octreotide and Protonix drips. - Transfuse as needed. - Consult IR for TIPSS placement - NPO - Treat prophylactically for SBP - Continue medication for hep C. - Further recs as the case progresses. This pt seen by myself and Dr Silva and this note is written on his behalf (Carissa Zhu) Plan Patient was seen and examined, agree with the above note, still intubated sedated. Patient has portal hypertension with esophageal varices bleed patient still with guarded prognosis, we'll see if he will be a visual for TIPS (Ovidio Silva MD) Carissa Zhu May 06, 2017 14:51 Ovidio Silva MD May 06, 2017 22:04
--- NOTE | 2017-05-06 15:51 | PQ ---
Physician Query Response Document PATIENT: ILDEFONSO SMITH : 1960 ADMIT DATE: 05/04/2017 4:49 PM DISCH DATE: RESPONDING PROVIDER #: sjohn QUERY TEXT: Anemia Type Severe Anemia is documented in the Medical Record. Please specify the cause (includes suspected or p robable cause) Such as: -- Due to ACUTE BLOOD LOSS -- Due to CHRONIC BLOOD LOSS -- Due to IRON DEFICIENCY -- Due to CHRONIC DISEASE -- Other, please specify PLEASE CALL [facility] @ EXT [id number] FOR ASSISTANCE The patient's Clinical Indicators include: PER PROGRESS NOTE 05/05/17: Severe anemia requiring transfusion 5U PRBC in last 24 hours, one pack units of platelets. H HGB=9.7-6.3 Query created by: Klaudia Hwang on 05/06/2017 10:52 AM RESPONSE TEXT: Severe anemia due to acute blood loss Electronically signed by: Cory Olsen MD 05/06/2017 3:47 PM
--- NOTE | 2017-05-06 16:37 | RADRPT ---
EXAM DATE/TIME: 05/06/2017 00:00 [facility] COMPARISON : INDICATIONS : Pt. needs consult for a TIPS procedure. 56-year-old gentleman with cirrhosis and refractory upper gastrointestinal bleeding with documented e sophageal varices. MELD score is 8. Patient's previous imaging studies were reviewed. The patient's contrasted CT examination of the abdo men from September 17, 2016 reveals portal vein occlusion in the liver hilum with reconstitution of par enchymal portal vein branches. This configuration would significantly complicate performance of a per cutaneous portosystemic shunt procedure. As such, the patient is not candidate for TI PS in our hands . Referral to a tertiary care center may be appropriate if clinically indicated. Raúl Cortez MD on May 06, 2017 at 16:21 Board Certified Radiologist. This report was verified electronically.
[2017-05-06] MEDS: cefTRIAXone INJ 2,000 MG in SODIUM CHLORIDE 0.9% INJ 100 ML IV SCH (18:22)
[2017-05-06] MEDS: RESP: ALBUTEROL 2.5 MG/IPRATROPIUM 0.5 MG NEB (PRN) INH (21:03)
[2017-05-07] VITALS (33 sets, daily range): BP systolic 0–148; BP diastolic -3–73; PULSE 66–110; RESP 13–20; TEMP 98.6–100.6; O2SAT 90–100
[2017-05-07] MEDS: CHLORHEXIDINE GLUCONATE 2 % 1 PACK (2 CLOTHS) TOP SCH (03:06)
[2017-05-07] MEDS: PANTOPRAZOLE INJ 80 MG in SODIUM CHLORIDE 0.9% INJ 100 ML IV SCH ×3 (03:06→20:30)
[2017-05-07] MEDS: OCTREOTIDE INJ 500 MCG in SODIUM CHLORID 0.9% 500 ML INJ 500 ML IV SCH ×2 (03:06→12:59)
[2017-05-07] MEDS: MIDAZOLAM 100 MG/100 ML INJ 100 ML IV PRN ×2 (03:07→18:25)
[2017-05-07] MEDS: RESP: ALBUTEROL 2.5 MG/IPRATROPIUM 0.5 MG NEB (PRN) INH (04:00)
[2017-05-07 04:44] LABS: AUTOMATED NEUTROPHIL # 2.4 TH/MM3 (1.8-7.7); BASOPHIL % 1.1 % (0.0-2.0); EOSINOPHIL # 0.1 TH/MM3 (0-0.4); EOSINOPHIL % 1.6 % (0.0-4.0); HEMATOCRIT 23.3 % (39.0-51.0); LYMPH % 16.1 % (9.0-44.0); LYMPHOCYTE # 0.5 TH/MM3 (1.0-4.8); MEAN CELL VOLUME 93.5 FL (80.0-100.0); MEAN CORPUSCULAR HEMOGLOBIN 30.8 PG (27.0-34.0); MEAN CORPUSCULAR HGB CONC 32.9 % (32.0-36.0); MONO % 11.1 % (0.0-8.0); NEUT % 70.1 % (16.0-70.0); PLATELET COUNT 65 TH/MM3 (150-450); RED BLOOD COUNT 2.49 MIL/MM3 (4.50-5.90); RED CELL DISTRIBUTION WIDTH 18.8 % (11.6-17.2); WHITE BLOOD COUNT 3.4 TH/MM3 (4.0-11.0)
[2017-05-07 04:46] LABS: HEMO FLAGS AUTO DIFF
[2017-05-07 05:11] LABS: ALKALINE PHOSPHATASE 81 U/L (45-117); ALT (GPT) 104 U/L (12-78); ANION GAP 6 MEQ/L (5-15); AST (GOT) 220 U/L (15-37); BICARBONATE 24.3 MEQ/L (21.0-32.0); BLOOD UREA NITROGEN 24 MG/DL (7-18); CHLORIDE 114 MEQ/L (98-107); GLOMERULAR FILTRATION RATE 142 ML/MIN (>89); MAGNESIUM 1.4 MG/DL (1.5-2.5); POTASSIUM 4.1 MEQ/L (3.5-5.1); SODIUM (NA) 144 MEQ/L (136-145); TOTAL BILIRUBIN ADULT 1.1 MG/DL (0.2-1.0)
[2017-05-07] MEDS: INSULIN ASPART SUPPLEMENTAL SCALE SQ SCH ×4 (06:00→17:50)
[2017-05-07] MEDS: SODIUM CHLOR 0.9% 1000 ML INJ 1,000 ML IV SCH (06:19)
[2017-05-07] MEDS: ALBUMIN HUMAN 25% 25 GM/100 ML BAGP IV SCH (06:20)
[2017-05-07] MEDS: fentaNYL DRIP 250 ML IV PRN ×2 (06:20→18:25)
[2017-05-07 08:42] LABS: PLATELET ESTIMATE SMEAR LOW (NORMAL); PLATELET MORPHOLOGY NORMAL (NORMAL); SCAN/DIFF AUTO DIFF CONFIRMED
--- NOTE | 2017-05-07 13:16 | HHI.CCPN ---
Subjective Remarks/Hospital Course Patient is a 56-year-old male who presented to the emergency department for evaluation of large amounts of melanotic stools which started about 3 hours prior to presentation, apparently 4-5 episodes. Patient has history of esophageal varices, portal hypertension, hepatitis C, liver cirrhosis , thrombocytopenia, diabetes type 2, hypertension. Most recent admission was in January 2017 and his EGD at that time showed large grade 4 esophageal varices and he underwent banding. CBC showed hemoglobin 9.0, hematocrit 27.7, platelet count of 79. CMP shows hyperglycemia 311. In the ER patient had been started on IV Protonix infusion and IV octreotide infusion. He also received 500 mL crystalloid bolus by EMS. I evaluated the patient in the ED. He continues to have melanotic stools. Abdomen is distended slightly tender. Patient had been ordered to receive 2 units of PRBC. I have ordered 1 unit of platelets stat. Dr. Bartlett from GI had been contacted by ED. Patient will need EGD once stable, and also paracentesis. I have started patient on Rocephin 2 g IV daily for SBP prophylaxis. The patient was apparently started on hep C treatment today-but due to GI bleed he missed the dose, will hold while patient is nothing by mouth. Patient denies active alcohol use SUBJ 05/05: Yesterday night patient developed massive hematemesis and hemorrhagic shock. Actively resuscitated and the patient was emergently intubated placed on mechanical ventilation, by Dr. Landrum. Arterial line and central line placed. Patient had previously received 2 units of PRBC in the ED 3 for additional units of blood ordered for a hemoglobin of 6.3. Currently intubated sedated but remains on Levophed at 5 mcg/m. GI planning on endoscopy 05/06: Esophagoscopy with banding performed 05/05. Bands applied on 3 varices. Bleeding seemed controlled hemodynamically improving. According to GI notes, large amount of blood in stomach limited examination of stomach and duodenum. Could not rule out gastric varices. GI recommended TIPSS to prevent further bleeding but has hx of portal vein thrombosis. GI will discuss with IR 05/07: Remains intubated sedated failed spontaneous breathing trial yesterday. Today hemoglobin has dropped to 7.7. Patient showing some signs of GI bleed again. Small amount of blood and oropharynx suctioned out, also black tarry stools. Discussed with GI. IR consulted for TIPS. FiO2 requirement has increased to 50%. CXR today shows left more than right bilateral infiltrates/ effusion Objective Vital Signs Date Time Temp Pulse Resp B/P (MAP) Pulse Ox O2 Delivery O2 Flow Rate FiO2 05/07/17 12:49 93 50 05/07/17 09:00 110 17 148/65 (92) 05/07/17 08:00 100.1 05/04/17 22:00 Room Air Intake and Output 05/07/17 05/07/17 05/08/17 08:00 16:00 00:00 Intake Total 0 ml Output Total 950 ml Balance -950 ml Result Diagram: 05/07/17 0300 05/07/17 0300 Imaging Chest x-ray shows no acute findings Objective Remarks GENERAL: Well-nourished, well-developed male patient, pale intubated sedated SKIN: Warm/dry. HEAD: Normocephalic. Atraumatic. EYES: No scleral icterus, pale. No injection or drainage. ENT: Orotracheally intubated. Blood ETT secretions NECK: Supple, trachea midline. No JVD or lymphadenopathy. CARDIOVASCULAR: Regular rate and rhythm without murmurs, gallops, or rubs. Normotensive RESPIRATORY: Breath sounds equal bilaterally. Diminished breath sound at L base GASTROINTESTINAL: Abdomen distended, nontender to palpation. + Fluid thrill. Bedside ultrasound shows minimal ascitic fluid MUSCULOSKELETAL: No cyanosis, 1+ pitting edema. NEURO: Intubated sedated, moves all extremities spontaneously. Did not follow commands A/P Assessment and Plan Neuro/Psych: History of alcohol dependence History of hepatic encephalopathy - Versed and fentanyl for sedation and ventilator synchrony. Daily sedation vacation - Hold Xifaxan and lactulose while nothing by mouth - Morphine for pain management - Patient denied active alcohol use CV: Hemorrhagic shock -resolved History of Hypertension Dyslipidemia - Received 5 units of PRBC, since admission - Continue maintenance IV fluids. Monitor HR and BP keep MAP>65mmHg - Hold beta blockers at this time due to GI bleed, hold Aldactone 100 mg daily - Continue IV albumin Resp: Acute hypoxemic respiratory failure HCAP/aspiration - New bilateral lung infiltrates indicating pneumonia - DC Rocephin Start Zosyn 4.5 GM IV q6h. Send Sputum cx - DuoNeb every 6 hours scheduled when necessary - No intervening due to worsening hypoxia GI/HEME: Massive Upper GI bleed from grade 4 varices, now s/p banding Severe anemia requiring transfusion Cirrhosis from alcoholism and hepatitis C History of portal vein thrombosis Hypo-albuminemia Ascites, mild - Esophagoscopy with banding performed 05/05. Could not rule out gastric varices due to large amount. GI Dr. Bartlett - IR consulted for TIPS. Patient now has evidence of recurrent bleed. We'll transfuse 1 unit PRBC. H&H after transfusion - Discussed with GI - Continue, IV Protonix infusion, IV octreotide infusion - 5U PRBC in last 24 hours, one pack units of platelets in first 24 hours. - Previous EGD 02/03/17 - grade 4 esophageal varices status post banding - Apparently had been started on hep C treatment with ribavirin and Epclusa- hold while NPO /Renal: Prerenal azotemia History of BPH - Monitor renal function, electrolytes replacement as needed - Normal saline IV fluids 84 mL per hour-DC today Endo: Diabetes mellitus with neuropathy Hyperglycemia - Sliding-scale every q4hr - Electrolyte Replacement per protocol ID: HCAP Sepsis - Discontinue Rocephin for SBP. Zosyn 45 g IV every 6 hours. Single dose of vancomycin - Send sputum culture - Plan for paracentesis with fluid studies Access - Utilize peripheral IV. Continue central line. DC art line today Prophylaxis - GI - Protonix drip - DVT - SCD/LIDA. pharmacological prophylaxis contraindicated with acute GI bleed CCT 45 MIN Cory Olsen MD May 07, 2017 13:16
[2017-05-07] MEDS ORDERED: BUMETANIDE INJ 1 MG/4 ML VIAL IV PUSH ONE (14:30)
--- NOTE | 2017-05-07 14:34 | HHI.GIFU ---
Subjective Remarks Resting in bed. Pt having dark red oropharyngeal secretions and melanotic stool. S/P IR evaluation for TIPS- not candidate. (Yumiko Vale) Objective Vitals I&O Vital Signs Date Time Temp Pulse Resp B/P (MAP) Pulse Ox O2 Delivery O2 Flow Rate FiO2 05/07/17 12:49 93 50 05/07/17 10:58 91 45 05/07/17 09:47 93 40 05/07/17 09:00 110 17 148/65 (92) 93 05/07/17 08:46 40 05/07/17 08:46 92 40 05/07/17 08:00 40 05/07/17 08:00 100.1 79 18 119/66 (83) 98 127/52 (77) 05/07/17 06:00 80 05/07/17 04:04 100 40 05/07/17 04:00 99.8 76 19 138/61 (86) 99 05/07/17 04:00 40 05/07/17 04:00 76 05/07/17 02:00 71 05/07/17 01:39 99 40 05/07/17 00:00 98.6 72 18 134/70 (91) 99 138/59 (85) 05/07/17 00:00 40 05/07/17 00:00 72 05/06/17 22:01 99 40 05/06/17 22:00 74 05/06/17 20:00 40 05/06/17 20:00 79 05/06/17 20:00 98.6 79 18 137/70 (92) 98 134/67 (89) 05/06/17 17:15 99 40 05/06/17 17:15 40 05/06/17 17:00 100 18 179/82 (114) 100 05/06/17 16:57 98 40 05/06/17 16:00 40 05/06/17 16:00 99.3 77 18 142/72 (95) 98 135/67 (89) 05/06/17 15:00 76 18 114/53 (73) 95 I/O 05/06/17 05/06/17 05/06/17 05/07/17 05/07/17 05/07/17 07:00 15:00 23:00 07:00 15:00 23:00 Intake Total 4560 ml 1855 ml 0 ml Output Total 600 ml 1000 ml 950 ml Balance 3960 ml 855 ml -950 ml Intake Oral 0 ml IV Total 4460 ml 1855 ml Albumin 100 ml Output Urine Total 600 ml 1000 ml 950 ml # Bowel Movements 0 1 1 Laboratory Laboratory Tests Test 05/07/17 03:00 05/07/17 13:30 White Blood Count 3.4 Red Blood Count 2.49 Hemoglobin 7.7 Hematocrit 23.3 Mean Corpuscular Volume 93.5 Mean Corpuscular Hemoglobin 30.8 Mean Corpuscular Hemoglobin Concent 32.9 Red Cell Distribution Width 18.8 Platelet Count 65 Mean Platelet Volume 10.2 Neutrophils (%) (Auto) 70.1 Lymphocytes (%) (Auto) 16.1 Monocytes (%) (Auto) 11.1 Eosinophils (%) (Auto) 1.6 Basophils (%) (Auto) 1.1 Neutrophils # (Auto) 2.4 Lymphocytes # (Auto) 0.5 Monocytes # (Auto) 0.4 Eosinophils # (Auto) 0.1 Basophils # (Auto) 0.0 CBC Comment AUTO DIFF Differential Comment AUTO DIFF CONFIRMED Platelet Estimate LOW Platelet Morphology Comment NORMAL Blood Urea Nitrogen 24 Creatinine 0.59 Random Glucose 162 Total Protein 5.7 Albumin 2.6 Calcium Level 7.7 Magnesium Level 1.4 Alkaline Phosphatase 81 Aspartate Amino Transf (AST/SGOT) 220 Alanine Aminotransferase (ALT/SGPT) 104 Total Bilirubin 1.1 Sodium Level 144 Potassium Level 4.1 Chloride Level 114 Carbon Dioxide Level 24.3 Anion Gap 6 Estimat Glomerular Filtration Rate 142 Date/Time Source Procedure Growth Status 05/04/17 18:30 Blood Peripheral Aerobic Blood Culture - Preliminary NO GROWTH IN 3 DAYS Resulted 05/04/17 18:30 Blood Peripheral Anaerobic Blood Culture - Preliminary NO GROWTH IN 3 DAYS Resulted Imaging Last Impressions Liver Ultrasound 05/05/17 0000 Signed Impressions: Service Date/Time: Friday, May 05, 2017 12:56 - CONCLUSION: 1. Splenomegaly without focal lesion. 2. No focal lesion seen in the liver, but there is a heterogeneous echotexture. Overall liver size has decreased when compared to January 2017. 3. Hepatopedal flow seen in the main portal vein. 4. Ascites. Raad Pulido MD Chest X-Ray 05/05/17 0000 Signed Impressions: Service Date/Time: Friday, May 05, 2017 02:42 - CONCLUSION: 1. ETT in good position. Left IJ central line catheter tip in the proximal right atrium. No pneumothorax. 2. Stable left basilar atelectasis. Dillon Herbert MD Physical Exam HEENT: Normocephalic, Dark red oropharyngeal secretions CHEST: OETT to vent. Diminished bases CARDIAC: RRR ABDOMEN: Abdomen soft is distended, ascites, bowel sounds. EXTREMITIES: No clubbing, cyanosis, + BLE edema. SKIN: Normal; no rash; no jaundice. GENERAL MAGISTRATE: Sedated on vent. (Yumiko Vale) Assessment and Plan Plan Imp: - Upper GI bleed. S/P EGD --> There was a nipple sign on a large distal varix and that seems to be where the bleeding was from. 4 bands applied on 3 varices. Bleeding seemed controlled. There was a great deal of blood in the upper stomach. The stomach and duodenum could not be examined further, cannot rule out gastric varices. Octreotide/Protonix Gtt. Continues to have dark red blood blood from oropharyngeal cavity. S/P IR evaluation for TIPS procedure, deemed not a candidate at this facility secondary to history portal vein occlusion in the liver hilum with reconstitution of parenchymal portal vein branches on CT scan 09/17/16. Will consult CM for assistance with transferring to tertiary center for possible TIPS. - Anemia, acute blood loss. S/P 4 units, Plt 1. - Thrombocytopenia. Plt. 65,000. - Worsening LFTs. T. Bili 1.1, AST 220, ALT 104, Alk PHosph 81. Recheck in am. - Ascites, rule out SBP. US liver --> splenomegaly, heterogeneous echotexture liver, liver size decreaed from January, hepatopedal flow seen in main portal vein, ascites - Hepatic Encephalopathy. Ammonia 44, A/Ox 3. Lactulose, Xifaxan. - Hx cirrhosis secondary to HCV/ETOH, portal HTN, varices. - HCV. ON Epclusa as outpatient - Hx portal vein occlusion in August 2016 ct. Plan: - NPO for now - Continue Octreotide Gtt - Cont. Protonix Gtt - Monitor labs - Transfuse as needed. - Supportive care - Keep Jacque at bedside - Notify GI of active bleeding. - Further recommendations to follow based on results of above - Consult CM for assistance with transfer to tertiary center for evaluation of TIPS (not candidate at this facility, see above) - This pt seen by myself and Dr Silva and this note is written on his behalf (Yumiko Vale) Plan Patient was seen and examined, agree with the above plan, patient to hemoglobin is stable but there is potential for active bleeding any time. patient has possible portal thrombosis so tips may not be possible here if he really bled jacque tube will need to be inserted and possible transfer to another facility (Ovidio Silva MD) Yumiko Vale May 07, 2017 14:34 Ovidio Silva MD May 07, 2017 21:44
[2017-05-07] MEDS: PIPERACIL-TAZO 4.5 GM PREMIX 100 ML IV SCH ×2 (14:48→20:29)
[2017-05-07] MEDS ORDERED: VANCOMYCIN INJ 1,000 MG in SODIUM CHLOR 0.9% 250 ML INJ 250 ML IV ONE (15:00)
--- NOTE | 2017-05-07 15:00 | RADRPT ---
EXAM DATE/TIME: 05/07/2017 13:04 [facility] COMPARISON: CHEST SINGLE AP, May 05, 2017, 2:42. INDICATIONS : Shortness of breath. MEDICAL HISTORY : Ulcers. Hypercholesterolemia. Hypertension. Hepatitis C. Diabetic. SURGICAL HISTORY : Tonsillectomy. Appendectomy. Paracentesis. ENCOUNTER: Subsequent ACUITY: 3 days PAIN SCORE: Non-responsive. LOCATION: Bilateral chest FINDINGS: There is dense airspace consolidation involving the left lung base with hazy airspace process in both lungs as well not present previously. Lines and tubes are present not significantly changed. CONCLUSION: Interval development of bilateral airspace process may represent pulmonary edema, however pneumonia i n the left lung bases not excluded. Luda Contreras MD on May 07, 2017 at 14:58 Board Certified Radiologist. This report was verified electronically.
[2017-05-07] MEDS ORDERED: ACETAMINOPHEN 650 MG/20.3 ML UDC NG ONE (15:45)
[2017-05-07] MEDS ORDERED: ACETAMINOPHEN 650 MG SUPP RECTAL ONE (16:00)
--- NOTE | 2017-05-07 18:24 | PD.PROCEDR ---
Procedure Note Procedure Paracentesis Indication: Large ascites A time-out was completed verifying correct patient, procedure, site, positioning , and special equipment if applicable. The patients right lower quadrant was prepped and draped in a sterile manner after the appropriate infiltration level was confirmed by ultrasound. 1% lidocaine was used anesthetize the surrounding skin. A 10-blade scalpel used to make the incision. The paracentesis Angiocath was then introduced without difficulty and needle was removed. Catheter was connected to Vacutainer bottle and 3000 ml (3L) of straw colored free flowing fluid was removed. Estimated Blood Loss: <1 ml The patient tolerated the procedure well and there were no immediate complications. Cory Olsen MD May 07, 2017 18:24
[2017-05-07 22:43] LABS: PERITONEAL WBC 100 /MM3 (0-10)
[2017-05-07 22:45] LABS: PERITONEAL HISTIOCYTES 1 %; PERITONEAL LYMPHS 60 %; PERITONEAL MESOTHELIAL 4 %; PERITONEAL MONOS 14 %; PERITONEAL POLYS(SEGS) 21 %
[2017-05-08] VITALS: BP 121/63; PULSE 79; RESP 18; TEMP 98.8; O2SAT 96
[2017-05-08 00:09] VITALS: O2SAT 96
[2017-05-08] MEDS: OCTREOTIDE INJ 500 MCG in SODIUM CHLORID 0.9% 500 ML INJ 500 ML IV SCH (00:17)
[2017-05-08] MEDS: PIPERACIL-TAZO 4.5 GM PREMIX 100 ML IV SCH (01:23)
[2017-05-08 02:00] VITALS: PULSE 75
[2017-05-08 04:00] VITALS: BP 111/62; PULSE 74; RESP 19; TEMP 99.1; O2SAT 95; O2SAT 98
[2017-05-08] MEDS: CHLORHEXIDINE GLUCONATE 2 % 1 PACK (2 CLOTHS) TOP SCH (04:00)
[2017-05-08] MEDS: INSULIN ASPART SUPPLEMENTAL SCALE SQ SCH ×2 (04:38)
[2017-05-08] MEDS: fentaNYL DRIP 250 ML IV PRN ×2 (04:39→07:55)
--- NOTE | 2017-05-08 05:11 | RADRPT ---
EXAM DATE/TIME: 05/08/2017 04:01 [facility] COMPARISON: CHEST SINGLE AP, May 07, 2017, 13:04. INDICATIONS : Respiratory disease MEDICAL HISTORY : Ulcers. Hypercholesterolemia. Hypertension. Hepatitis C. Diabetic. SURGICAL HISTORY : Tonsillectomy. Appendectomy. Paracentesis ENCOUNTER: Subsequent ACUITY: 4 - 6 days PAIN SCORE: Non-responsive. LOCATION: Bilateral chest FINDINGS: Consolidation in the left mid to lower lung again noted, not significantly changed. Small left pleura l effusion is also similar to before. I don't see a pneumothorax. Heart size stable, upper limits of normal. Endotracheal tube tip is approximately 4 cm above the peggy. There is a left internal jugular centra l venous catheter with tip in the right atrium. CONCLUSION: No significant change basilar consolidation and small pleural effusion on the left. Raúl Greene MD on May 08, 2017 at 5:08 Board Certified Radiologist. This report was verified electronically.
[2017-05-08 05:30] LABS: AUTOMATED NEUTROPHIL # 2.1 TH/MM3 (1.8-7.7); BASOPHIL % 0.6 % (0.0-2.0); EOSINOPHIL # 0.1 TH/MM3 (0-0.4); EOSINOPHIL % 1.7 % (0.0-4.0); HEMATOCRIT 26.1 % (39.0-51.0); LYMPH % 16.2 % (9.0-44.0); LYMPHOCYTE # 0.5 TH/MM3 (1.0-4.8); MEAN CELL VOLUME 94.1 FL (80.0-100.0); MEAN CORPUSCULAR HGB CONC 32.9 % (32.0-36.0); MONO % 10.5 % (0.0-8.0); PLATELET COUNT 64 TH/MM3 (150-450); RED BLOOD COUNT 2.78 MIL/MM3 (4.50-5.90); RED CELL DISTRIBUTION WIDTH 18.3 % (11.6-17.2)
[2017-05-08 05:44] LABS: HEMO FLAGS AUTO DIFF
[2017-05-08 05:55] LABS: ANION GAP 8 MEQ/L (5-15); AST (GOT) 79 U/L (15-37); BICARBONATE 24.5 MEQ/L (21.0-32.0); BLOOD UREA NITROGEN 24 MG/DL (7-18); CHLORIDE 114 MEQ/L (98-107); GLOMERULAR FILTRATION RATE 116 ML/MIN (>89); MAGNESIUM 1.3 MG/DL (1.5-2.5); POTASSIUM 3.6 MEQ/L (3.5-5.1); SODIUM (NA) 146 MEQ/L (136-145)
[2017-05-08 06:00] VITALS: PULSE 67
[2017-05-08 06:00] LABS: ALKALINE PHOSPHATASE 68 U/L (45-117); ALT (GPT) 55 U/L (12-78); TOTAL BILIRUBIN ADULT 2.3 MG/DL (0.2-1.0)
[2017-05-08] MEDS: SODIUM CHLOR 0.9% 1000 ML INJ 1,000 ML IV SCH ×2 (06:23→07:56)
[2017-05-08] MEDS ORDERED: PANTOPRAZOLE SODIUM 40 MG VIAL IV PUSH ONE (07:45)
[2017-05-08] MEDS: MIDAZOLAM 100 MG/100 ML INJ 100 ML IV PRN (07:55)
[2017-05-08 09:10] LABS: BANDS 19 % (0-6); BASOPHILS 1 % (0-2); CORRECTED NUCLEATED RBC 1 /100 WBC (0-0); NEUTROPHIL # MANUAL DIFF 2.3 TH/MM3 (1.8-7.7); POLYS (SEG NEUTROPHILS) 59 % (16-70); WBC DIFF SAMPLE 100
[2017-05-08 09:11] LABS: PLATELET ESTIMATE SMEAR LOW (NORMAL); PLATELET MORPHOLOGY NORMAL (NORMAL); SCAN/DIFF FINAL DIFF MANUAL
--- NOTE | 2017-06-10 09:17 | HHI.DS ---
Discharge Summary Admission Date May 04, 2017 at 16:49 Discharge Date: May 08, 2017 Admitting Diagnosis GI bleed (1) Respiratory failure ICD Code: J96.90 - Respiratory failure, unspecified, unspecified whether with hypoxia or hypercapnia Diagnosis: Principal Status: Acute (2) UGIB (upper gastrointestinal bleed) ICD Code: K92.2 - Gastrointestinal hemorrhage, unspecified Diagnosis: Principal Status: Acute (3) Esophageal varices ICD Code: I85.00 - Esophageal varices without bleeding Diagnosis: Principal Status: Chronic (4) Anemia requiring transfusions ICD Code: D64.9 - Anemia, unspecified Diagnosis: Principal Status: Acute (5) Thrombocytopenia ICD Code: D69.6 - Thrombocytopenia, unspecified Diagnosis: Principal (6) Hyperglycemia ICD Code: R73.9 - Hyperglycemia, unspecified Diagnosis: Principal (7) Portal hypertensive gastropathy ICD Code: K31.89 - Other diseases of stomach and duodenum Diagnosis: Principal Status: Acute (8) Liver cirrhosis ICD Code: K74.60 - Unspecified cirrhosis of liver Diagnosis: Secondary Status: Chronic (9) Diabetes 1.5, 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 - Other specified diabetes mellitus without complications Diagnosis: Secondary Status: Acute (10) Ascites ICD Code: R18.8 - Other ascites Diagnosis: Secondary Status: Chronic (11) Portal vein thrombosis ICD Code: I81 - Portal vein thrombosis Diagnosis: Secondary Status: Chronic (12) Hepatitis C ICD Code: B19.20 - Unspecified viral hepatitis C without hepatic coma Diagnosis: Secondary Status: Chronic Procedures EGD with banding 05/05/17 Paracentesis 05/07/17 Brief History Patient is a 56-year-old male who presented to the emergency department for evaluation of large amounts of melanotic stools which started about 3 hours prior to presentation, apparently 4-5 episodes. Patient has history of esophageal varices, portal hypertension, hepatitis C, liver cirrhosis , thrombocytopenia, diabetes type 2, hypertension. Most recent admission was in January 2017 and his EGD at that time showed large grade 4 esophageal varices and he underwent banding. CBC showed hemoglobin 9.0, hematocrit 27.7, platelet count of 79. CMP shows hyperglycemia 311. In the ER patient had been started on IV Protonix infusion and IV octreotide infusion. He also received 500 mL crystalloid bolus by EMS. I evaluated the patient in the ED. He continues to have melanotic stools. Abdomen is distended slightly tender. Patient had been ordered to receive 2 units of PRBC. I have ordered 1 unit of platelets stat. Dr. Bartlett from had been contacted by ED. Patient will need EGD once stable, and also paracentesis. I have started patient on Rocephin 2 g IV daily for SBP prophylaxis. The patient was apparently started on hep C treatment today-but due to GI bleed he missed the dose, will hold while patient is nothing by mouth. Patient denies active alcohol use Imaging Chest x-ray basilar consolidation Liver ultrasound ascites, liver cirrhosis PE at Discharge GENERAL: Well-nourished, well-developed male patient, pale intubated sedated SKIN: Warm/dry. HEAD: Normocephalic. Atraumatic. EYES: No scleral icterus, pale. No injection or drainage. ENT: Orotracheally intubated. Blood ETT secretions NECK: Supple, trachea midline. No JVD or lymphadenopathy. CARDIOVASCULAR: Regular rate and rhythm without murmurs, gallops, or rubs. Normotensive RESPIRATORY: Breath sounds equal bilaterally. Diminished breath sound at L base GASTROINTESTINAL: Abdomen distended, nontender to palpation. + Fluid thrill. Bedside ultrasound shows minimal ascitic fluid MUSCULOSKELETAL: No cyanosis, 1+ pitting edema. NEURO: Intubated sedated, moves all extremities spontaneously. Did not follow commands Transfer Summary See Hospital course Hospital Course Patient is a 56-year-old male who presented to the emergency department for evaluation of large amounts of melanotic stools which started about 3 hours prior to presentation, apparently 4-5 episodes. Patient has history of esophageal varices, portal hypertension, hepatitis C, liver cirrhosis , thrombocytopenia, diabetes type 2, hypertension. Most recent admission was in January 2017 and his EGD at that time showed large grade 4 esophageal varices and he underwent banding. CBC showed hemoglobin 9.0, hematocrit 27.7, platelet count of 79. CMP shows hyperglycemia 311. In the ER patient had been started on IV Protonix infusion and IV octreotide infusion. He also received 500 mL crystalloid bolus by EMS. I evaluated the patient in the ED. He continues to have melanotic stools. Abdomen is distended slightly tender. Patient had been ordered to receive 2 units of PRBC. I have ordered 1 unit of platelets stat. Dr. Bartlett from had been contacted by ED. Patient will need EGD once stable, and also paracentesis. I have started patient on Rocephin 2 g IV daily for SBP prophylaxis. The patient was apparently started on hep C treatment today-but due to GI bleed he missed the dose, will hold while patient is nothing by mouth. Patient denies active alcohol use. SUBJ 05/05: Yesterday night patient developed massive hematemesis and hemorrhagic shock. Actively resuscitated and the patient was emergently intubated placed on mechanical ventilation, by Dr. Landrum. Arterial line and central line placed. Patient had previously received 2 units of PRBC in the ED 3 for additional units of blood ordered for a hemoglobin of 6.3. Currently intubated sedated but remains on Levophed at 5 mcg/m. GI planning on endoscopy 05/06: Esophagoscopy with banding performed 05/05. Bands applied on 3 varices. Bleeding seemed controlled hemodynamically improving. According to GI notes, large amount of blood in stomach limited examination of stomach and duodenum. Could not rule out gastric varices. GI recommended TIPSS to prevent further bleeding but has hx of portal vein thrombosis. GI will discuss with IR 05/07: Remains intubated sedated failed spontaneous breathing trial yesterday. Today hemoglobin has dropped to 7.7. Patient showing some signs of GI bleed again. Small amount of blood and oropharynx suctioned out, also black tarry stools. Discussed with GI. IR consulted for TIPS. FiO2 requirement has increased to 50%. CXR today shows left more than right bilateral infiltrates/ effusion. Due to continued bleed and a possibility of portal vein thrombosis, GI contacted [facility] for TIPS evaluation. Patient will be emergently sent to Pt Condition on Discharge: Deteriorating Discharge Disposition: Trnsfr to Other Facility Discharge Instructions DIET: Follow Instructions for: Nothing By Mouth Activities you can perform: Continue Bedrest Cory Olsen MD Jun 10, 2017 09:17
== END 2017-05-08 08:00 | disposition short-term general hospital (02) | DRG 432 ==
LOC: NEPC 14:36 → NEDA 16:49 → NEDH 20:49 → HIME 23:30
PROVIDERS: ADMIT Internal Medicine; ATTEND Internal Medicine
PROC: 30243N1 Transfusion of Nonautologous Red Blood Cells into Central Vein, Percutaneous Approach (ICD-10-PCS; 2017-05-04)
PROC: 03HY32Z Insertion of Monitoring Device into Upper Artery, Percutaneous Approach (ICD-10-PCS; 2017-05-05)
PROC: 5A1945Z Respiratory Ventilation, 24-96 Consecutive Hours (ICD-10-PCS; 2017-05-05)
PROC: 30243R1 Transfusion of Nonautologous Platelets into Central Vein, Percutaneous Approach (ICD-10-PCS; 2017-05-05)
PROC: 0BH17EZ Insertion of Endotracheal Airway into Trachea, Via Natural or Artificial Opening (ICD-10-PCS; 2017-05-05)
PROC: 02H633Z Insertion of Infusion Device into Right Atrium, Percutaneous Approach (ICD-10-PCS; 2017-05-05)
PROC: 0W3P8ZZ Control Bleeding in Gastrointestinal Tract, Via Natural or Artificial Opening Endoscopic (ICD-10-PCS; principal; 2017-05-05 09:40)
PROC: 0W9G3ZZ Drainage of Peritoneal Cavity, Percutaneous Approach (ICD-10-PCS; 2017-05-07)
DX: K70.31 Alcoholic cirrhosis of liver with ascites (principal); R57.8 Other shock; J96.01 Acute respiratory failure with hypoxia; I81 Portal vein thrombosis; I85.11 Secondary esophageal varices with bleeding; J69.0 Pneumonitis due to inhalation of food and vomit; A41.9 Sepsis, unspecified organism; K76.6 Portal hypertension; E11.40 Type 2 diabetes mellitus with diabetic neuropathy, unspecified; D62 Acute posthemorrhagic anemia; G62.9 Polyneuropathy, unspecified; J98.11 Atelectasis; D69.6 Thrombocytopenia, unspecified; E11.65 Type 2 diabetes mellitus with hyperglycemia; I10 Essential (primary) hypertension; B19.20 Unspecified viral hepatitis C without hepatic coma; N40.0 Benign prostatic hyperplasia without lower urinary tract symptoms; K72.90 Hepatic failure, unspecified without coma; E78.5 Hyperlipidemia, unspecified; R16.1 Splenomegaly, not elsewhere classified; R60.0 Localized edema; F10.21 Alcohol dependence, in remission; Z72.0 Tobacco use; Z79.84 Long term (current) use of oral hypoglycemic drugs; Z86.718 Personal history of other venous thrombosis and embolism; Z88.1 Allergy status to other antibiotic agents
CPT/HCPCS: 31500; 36430; 36556; 49082; 71010; 76705; 76937; 80053; 82042; 82140; 82150; 82805; 82945; 83615; 83690; 83735; 84155; 84157; 85007; 85014; 85018; 85025; 85027; 85610; 85730; 86850; 86900; 86901; 86920; 87040; 87070; 87077; 87186; 87205; 87641; 88112; 89051; 93005; 94002; 94003; 94640; 94664; 96365; 96368; 96375; C9113; J0330; J0610; J0696; J1815; J2250; J2270; J2354; J2543; J3010; J3370; J7030; J7040; J7050; P9016; P9035; P9047

== ENCOUNTER 2017-05-11 20:25 | Inpatient (IN) | payer MEDICARE, MEDICAID ==
[~2017-05-11] VITALS: Ht 182.9 cm; Wt 84.7 kg
[~2017-05-11 20:25] MED LIST changes: -ALDA50TA2 PO; +AMLO5TAB2 PO; -FURO20TA PO; -LACT10SO PO; -LYRI75CA PO; +METF850T PO; +NADO20TA PO; +PENI500T PO; +PREG300 PO; +RIBA200C5; +SOFO1TAB; +SPIR100T PO
[2017-05-13] VITALS (7 sets, daily range): BP systolic 136–166; BP diastolic 74–89; PULSE 78–107; RESP 28–41; TEMP 98.4–99.1; O2SAT 91–96
[2017-05-13] MEDS ORDERED: CALCIUM CARBONATE 500 MG CHEWABLE TAB CHEW PRN (18:15)
--- NOTE | 2017-05-13 18:16 | HHI.HP ---
[facility] Service Critical Care Medicine Primary Care Physician Unknown Admission Diagnosis Transfer from [facility] Diagnosis: (1) Hepatocellular carcinoma Diagnosis: Principal (2) Hepatitis C Diagnosis: Principal (3) UGIB (upper gastrointestinal bleed) Diagnosis: Principal (4) Anemia requiring transfusions Diagnosis: Principal (5) Diabetes 1.5, managed as type 2 Diagnosis: Principal (6) Thrombocytopenia Diagnosis: Principal (7) Ascites Diagnosis: Principal (8) Portal vein thrombosis Diagnosis: Principal (9) Liver cirrhosis Diagnosis: Principal (10) Alcohol dependence Diagnosis: Principal (11) Hepatic encephalopathy Diagnosis: Principal (12) ESBL (extended spectrum beta-lactamase) producing bacteria infection Diagnosis: Principal (13) Anemia Diagnosis: Principal (14) Gastritis Diagnosis: Principal (15) Pancytopenia Diagnosis: Principal (16) History of alcohol abuse Diagnosis: Principal Chief Complaint: Transfer from [facility] Travel History International Travel<30 Days: No Contact w/Intl Traveler <30 Da: No Traveled to Known Affected Are: No History of Present Illness 56 year old male. Date of admission 05/13/2017. Past medical history includes hepatitis C, EtOH, portal hypertension, liver cirrhosis, diabetes mellitus septic, hypertension and sacral decubitus ulcers. Patient was a 05/04 to [facility] [employer] with no like stools. Previous diagnoses grade 4 esophageal varices. He received intravenous pantoprazole, Sandostatin ceftriaxone. On 05/05, patient developed massive hematemesis and hemorrhagic shock for intubated transfusion 5 RBCs. EGD was performed with banding of 3 varices. The stomach and onto unable to be evaluated. I was consulted but not considered to be a candidate due to portal vein thrombosis and was therefore transferred to [facility]. At that facility, he arrived 05/08 on pantoprazole, Sandostatin and ceftriaxone. His medications were discontinued 05/10. Antibiotics were transitioned to piperacillin/tazobactam eventually to cefepime. Discontinued date 05/14. He was extubated 05/12. Patient was found to have likely hepatocellular carcinoma on CT. There are questionable multifocal arterial lesions likely consistent with this diagnosis. MR liver was to be performed but no information sent.. TIPS is contraindicated with portal vein thrombosis/cancer therefore patient was transferred back Currently, patient is currently resting in bed in no acute distress Review of Systems Constitutional: COMPLAINS OF: Weight loss, DENIES: Fatigue, Fever, Weight gain Endocrine: DENIES: Polydipsia, Polyuria Eyes: DENIES: Blurred vision Ears, nose, mouth, throat: DENIES: Tinnitus Respiratory: DENIES: Apneas, Snoring Cardiovascular: DENIES: Chest pain Gastrointestinal: COMPLAINS OF: Black stools, Nausea, DENIES: Abdominal pain, Diarrhea, Vomiting Genitourinary: DENIES: Urgency, Dysuria Musculoskeletal: DENIES: Joint pain Integumentary: DENIES: Abnormal pigmentation Hematologic/lymphatic: DENIES: Bruising Immunologic/allergic: DENIES: Eczema Neurologic: DENIES: Headache Psychiatric: COMPLAINS OF: Anxiety, DENIES: Confusion Past Family Social History Allergies: Coded Allergies: bacitracin (Unverified Allergy, Mild, RASH, 05/04/17) gramicidin D (Unverified Allergy, Mild, 05/04/17) neomycin (Unverified Allergy, Mild, 05/04/17) polymyxin B (Unverified Allergy, Mild, RASH, 05/04/17) Past Medical History Grade 4 esophageal varices Recurrent esophageal variceal bleeding Portal hypertension Esophageal cirrhosis Hepatitis C Diabetes mellitus Diabetic neuropathy History of portal vein thrombosis DDD Sacral decubitus ulcer recent HCAP Klebsiella ESBL positive Pancytopenia Past Surgical History EGD//colonoscopy paracentesis Appendectomy Plating right shoulder/right clavicle Liver biopsy Reported Medications Hydrocodone-Acetaminophen 5-325 mg Tab 1 Tab PO TID PRN Propranolol (Propranolol HCl) 10 Mg Tab 10 Mg PO Q12HR Flomax (Tamsulosin HCl) 0.4 Mg Cap 0.8 Mg PO DAILY Xifaxan (Rifaximin) 550 Mg Tab 550 Mg PO BID Metformin (Metformin HCl) 850 Mg Tab 1,000 Mg PO BIDPC Metformin (Metformin HCl) 850 Mg Tab 1,000 Mg PO DAILY Nadolol 20 Mg Tab 20 Mg PO DAILY Amlodipine (Amlodipine Besylate) 5 Mg Tab 5 Mg PO DAILY Lyrica (Pregabalin) 300 Mg Cap 300 Mg PO TID Spironolactone 100 Mg Tab 100 Mg PO DAILY Pantoprazole (Pantoprazole Sodium) 40 Mg Tab 40 Mg PO BID Penicillin V Potassium 500 Mg Tab 500 Mg PO Q6H Epclusa 400 mg-100 mg Tablet (Sofosbuvir/Velpatasvir) 400 Mg-100 Mg Tablet Ribavirin 200 Mg Cap Tums (Calcium Carbonate (Antacid)) 500 Mg Chew 500 Mg CHEW DAILY PRN Buspirone (Buspirone HCl) 10 Mg Tab 10 Mg PO TID Baclofen 20 Mg Tab 20 Mg PO TID Active Ordered Medications Reviewed in EMR Family History No family history of liver disease. Social History Remote history of alcohol and substance abuse. Quit drinking 6 years ago. Occasional tobacco abuse Physical Exam Physical Exam GENERAL: 56-year-old male, resting in bed in no distress SKIN: Warm and dry. Well-perfused HEAD: Atraumatic. Normocephalic. EYES: Pupils equal and round about 3 Calzada's bilaterally and reactive. No scleral icterus. No injection or drainage. ENT: No nasal bleeding or discharge. Mucous membranes pink and moist. NECK: Trachea midline. No JVD. CARDIOVASCULAR: Regular rate and rhythm. S1, S2. No S4. Without murmurs RESPIRATORY: Ms. breath sounds left lower lobe. No wheezing GASTROINTESTINAL: Abdomen protuberant/distended. Nontender to palpation. MUSCULOSKELETAL: Extremities 1+ peripheral edema. No obvious deformities. NEUROLOGICAL: Awake and alert. No obvious cranial nerve deficits. Motor grossly within normal limits. Five out of 5 muscle strength in the arms and legs. Normal speech. Caprini VTE Risk Assessment Caprini VTE Risk Assessment: Mod/High Risk (score >= 2) Caprini Risk Assessment Model Point Value = 1 Point Value = 2 Point Value = 3 Point Value = 5 Age 41-60 Minor surgery BMI > 25 kg/m2 Swollen legs Varicose veins or History of unexplained or recurrent spontaneous Oral contraceptives or hormone replacement Sepsis (< 1 month) Serious lung disease, including pneumonia (< 1 month) Abnormal pulmonary function Acute myocardial infarction Congestive heart failure (< 1 month) History of inflammatory bowel disease Medical patient at bed rest Age 61-74 Arthroscopic surgery Major open surgery (> 45 min) Laparoscopic surgery (> 45 min) Malignancy Confined to bed (> 72 hours) Immobilizing plaster cast Central venous access Age >= 75 History of VTE Family history of VTE Factor V Leiden Prothrombin [id number] Lupus anticoagulant Anticardiolipin antibodies Elevated serum homocysteine Heparin-induced thrombocytopenia Other congenital or acquired thrombophilia Stroke (< 1 month) Elective arthroplasty Hip, pelvis, or leg fracture Acute spinal cord injury (< 1 month) Prophylaxis Regimen Total Risk Factor Score Risk Level Prophylaxis Regimen 0-1 Low Early ambulation 2 Moderate Order ONE of the following: *Sequential Compression Device (SCD) *Heparin 5000 units SQ BID 3-4 Higher Order ONE of the following medications: *Heparin 5000 units SQ TID *Enoxaparin/Lovenox 40 mg SQ daily (WT < 150 kg, CrCl > 30 mL/min) *Enoxaparin/Lovenox 30 mg SQ daily (WT < 150 kg, CrCl > 10-29 mL/min) *Enoxaparin/Lovenox 30 mg SQ BID (WT < 150 kg, CrCl > 30 mL/min) AND/OR *Sequential Compression Device (SCD) 5 or more Highest Order ONE of the following medications: *Heparin 5000 units SQ TID (Preferred with Epidurals) *Enoxaparin/Lovenox 40 mg SQ daily (WT < 150 kg, CrCl > 30 mL/min) *Enoxaparin/Lovenox 30 mg SQ daily (WT < 150 kg, CrCl > 10-29 mL/min) *Enoxaparin/Lovenox 30 mg SQ BID (WT < 150 kg, CrCl > 30 mL/min) AND *Sequential Compression Device (SCD) Assessment and Plan Assessment and Plan Neuro/Psych: Depression History of alcohol dependence History of hepatic encephalopathy Diabetic neuropathy Chronic pain syndrome Patient is on hydrocodone/acetaminophen at home for pain management Continue above with/Morphine sulfate for pain management. Continue buspirone 10 mg by mouth 3 times a day/home medication Continue Pregabalin 300 mg by mouth 3 times a day/home medication for diabetic neuropathy. CV: Hypertension Dyslipidemia Monitor heart rate and blood pressure to keep map greater than 65 mmHg Continue propranolol 10 mg by mouth twice a day. Continue Aldactone 100 mg by mouth daily Resp: Extubated 05/12. Nasal cannula to maintain saturations greater than equal to 92% Incentive spirometry while awake Albuterol/Atrovent every 4 hours with albuterol aerosols every 2 hours as needed Dyspnea Chest x-ray pending GI: Upper GI bleed from grade 4 esophageal varices status post banding 39/6 Hepatitis C IIIa scheduled for ribavirin 200 mg and sofosbuvir/velpatasvir therapy 400 mg/100 mg History of portal vein thrombosis Likely hepatocellular carcinoma Elevated ammonia Liver cirrhosis from EtOH and hepatitis C Abdominal ascites Continue pantoprazole 40 mg by mouth twice a day Continue Xifaxan 550 twice a day and lactulose 30 cc daily. Follow-up admitting laboratories clean CBC/hepatic profile. Not a candidate for TIPS secondary to portal vein thrombosis and multifocal arterially enhancing lesions concerning for diffuse HCC. : BPH Continue tamsulosin 0.8 milligrams by mouth daily Endo: Diabetes mellitus with neuropathy Hold metformin Sliding scale insulin with Accu-Cheks to maintain euglycemia/low regimen with meals/at bedtime with Novulin R Renal: Follow BMP. No history of renal failure Heme: Thrombocytopenia CBC pending. ID: History of HCAP ESBL+ Patient previously on ceftriaxone for upper GI bleed. Transition to Piperacillin tazobactam. To continue cefepime until stop date 05/14. MSK: Unstable sacral decubitus ulcer Wound care evaluate and treat FEN: Replace electrolytes as clinically indicated Access - Utilize peripheral IV. Central line if indicated Prophylaxis - GI - pantoprazole - DVT - SCD/pharmacological prophylaxis contra indicated with GI bleed/ thrombocytopenia Level II admission Code Status Full code Discussed Condition With Patient. Care plan discussed and all questions answered. Mother's name is [phone] Problem Qualifiers (1) Hepatitis C: Qualified Codes: B17.10 - Acute hepatitis C without hepatic coma (2) Ascites: Qualified Codes: R18.8 - Other ascites (3) Liver cirrhosis: Qualified Codes: K74.60 - Unspecified cirrhosis of liver (4) Alcohol dependence: Qualified Codes: F10.29 - Alcohol dependence with unspecified alcohol-induced disorder (5) Anemia: Qualified Codes: D64.9 - Anemia, unspecified (6) Gastritis: Qualified Codes: K29.20 - Alcoholic gastritis without bleeding Kraig Isaac MD May 13, 2017 18:16
[2017-05-13] MEDS ORDERED: MAGNESIUM OXIDE 400 MG TAB PO PRN (18:30)
[2017-05-13] MEDS ORDERED: GLUCAGON 1 MG/ML VIAL OTHER PRN (18:30)
[2017-05-13] MEDS ORDERED: MAGNESIUM HYDROXIDE SUSP 30 ML CUP PO PRN (18:30)
[2017-05-13] MEDS ORDERED: MORPHINE SULFATE 4 MG/ML INJ IV PUSH PRN (18:30)
[2017-05-13] MEDS ORDERED: BISACODYL 10 MG SUPP RECTAL PRN (18:30)
[2017-05-13] MEDS ORDERED: POTASSIUM PHOSPHATE INJ 30 MMOL in SODIUM CHLOR 0.9% 250 ML INJ 250 ML IV PRN (18:30)
[2017-05-13] MEDS ORDERED: MAGNESIUM SULFATE INJ 4 GM in SODIUM CHLORIDE 0.9% INJ 92 ML IV PRN (18:30)
[2017-05-13] MEDS ORDERED: ACETAMINOPHEN 325 MG TAB PO PRN ×2 (18:30)
[2017-05-13] MEDS ORDERED: MAGNESIUM SULFATE INJ 2 GM in SODIUM CHLORIDE 0.9% INJ 96 ML IV PRN (18:30)
[2017-05-13] MEDS ORDERED: POTASSIUM CHLOR 40 MEQ PREMIX 100 ML IV PRN ×2 (18:30)
[2017-05-13] MEDS ORDERED: POTASSIUM PHOSPHATE MONOBASIC 500 MG TAB PO PRN (18:30)
[2017-05-13] MEDS ORDERED: SENNOSIDES 8.6 MG TAB PO PRN (18:30)
[2017-05-13] MEDS ORDERED: SODIUM PHOSPHATE INJ 30 MMOL in SODIUM CHLOR 0.9% 250 ML INJ 240 ML IV PRN (18:30)
[2017-05-13] MEDS ORDERED: DEXTROSE 50% IN WATER 50 ML VIAL(D50) IV PRN (18:30)
[2017-05-13] MEDS ORDERED: POTASSIUM CHLOR 20 MEQ PREMIX 100 ML IV PRN ×2 (18:30)
[2017-05-13] MEDS ORDERED: ONDANSETRON HCL 4 MG/2 ML VIAL IV PUSH PRN (18:30)
[2017-05-13] MEDS ORDERED: MISCELLANEOUS NURSING INFORMATION XX SCH (18:30)
[2017-05-13] MEDS ORDERED: POTASSIUM CHLORIDE 25 MEQ EFFERVESCENT TAB PO PRN (18:30)
[2017-05-13] MEDS ORDERED: LACTULOSE SYRUP 20 GM/30 ML CUP PO PRN (18:30)
[2017-05-13] MEDS ORDERED: CHLORHEXIDINE GLUCONATE 2 % 1 PACK (2 CLOTHS) TOP PRN (18:30)
[2017-05-13] MEDS ORDERED: POTASSIUM PHOSPHATE MONOBASIC 500 MG TAB PO/TUBE PRN (18:30)
[2017-05-13] MEDS ORDERED: SODIUM CHLORIDE 0.9% FLUSH 10 ML FLUSH IV FLUSH PRN (18:30)
[2017-05-13] MEDS ORDERED: ACETAMINOPHEN/HYDROcodone 325 MG/5 MG TAB PO PRN (18:30)
--- NOTE | 2017-05-13 19:28 | RADRPT ---
EXAM DATE/TIME: 05/13/2017 19:01 [place] COMPARISON: No previous studies available for comparison. INDICATIONS : Respiratory distress. MEDICAL HISTORY : Ulcers. Hypercholesterolemia. Hypertension. Hepatitis C. Diabetic. SURGICAL HISTORY : Tonsillectomy. Appendectomy. Paracentesis ENCOUNTER: Subsequent ACUITY: 4 - 6 days PAIN SCORE: Non-responsive. LOCATION: Bilateral chest FINDINGS: An area of focally dense consolidation seen left perihilar and infrahilar. Otherwise patchy less cons olidative airspace opacities are seen of both lungs, both sides worse in the interim. Small, bilatera l pleural effusions are suspected, especially on the left. No pneumothorax. Heart size stable, upper limits of normal. Endotracheal tube out in the interim. CONCLUSION: 1. Interim extubation. 2. Left perihilar/infrahilar consolidation. 3. Patchy mild bilateral airspace opacities. 4. Small left pleural effusion. Raúl Greene MD on May 13, 2017 at 19:25 Board Certified Radiologist. This report was verified electronically.
[2017-05-13] MEDS ORDERED: LACTULOSE SYRUP 20 GM/30 ML CUP PO ONE (19:30)
[2017-05-13] MEDS: CEFEPIME INJ 2,000 MG in SODIUM CHLORIDE 0.9% INJ 100 ML IV SCH (20:00)
[2017-05-13] MEDS: RIFAXIMIN 550 MG TAB PO SCH (21:00)
[2017-05-13] MEDS: PROPRANOLOL HCL 10 MG TAB PO SCH (21:00)
[2017-05-13] MEDS: INSULIN NovoLIN REGULAR SUPPLEMENTAL SCALE SQ SCH (21:00)
[2017-05-13] MEDS: PANTOPRAZOLE SOD 40 MG DELAYED RELEASE TAB PO SCH (21:00)
[2017-05-13] MEDS ORDERED: RIFAXIMIN 550 MG TAB PO SCH (21:00)
[2017-05-13] MEDS: SODIUM CHLORIDE 0.9% FLUSH 10 ML FLUSH IV FLUSH SCH (21:00)
[2017-05-13] MEDS: DOCUSATE SODIUM 50 MG/SENNA 8.6 MG TAB PO SCH (21:00)
[2017-05-13] MEDS: RESP: ALBUTEROL 2.5 MG/IPRATROPIUM 0.5 MG NEB (SCH) INH (22:00)
[2017-05-14] VITALS (13 sets, daily range): BP systolic 128–162; BP diastolic 68–82; PULSE 62–86; RESP 19–38; TEMP 98.4–98.9; O2SAT 92–96
[2017-05-14 03:34] LABS: AUTOMATED NEUTROPHIL # 9.5 TH/MM3 (1.8-7.7); BASOPHIL % 0.1 % (0.0-2.0); EOSINOPHIL # 0.1 TH/MM3 (0-0.4); HEMATOCRIT 31.2 % (39.0-51.0); HEMO FLAGS DIFF FINAL; LYMPH % 7.4 % (9.0-44.0); LYMPHOCYTE # 0.8 TH/MM3 (1.0-4.8); MEAN CELL VOLUME 94.8 FL (80.0-100.0); MEAN CORPUSCULAR HEMOGLOBIN 30.9 PG (27.0-34.0); MEAN CORPUSCULAR HGB CONC 32.6 % (32.0-36.0); MONO % 5.6 % (0.0-8.0); NEUT % 85.9 % (16.0-70.0); PLATELET COUNT 236 TH/MM3 (150-450); RED BLOOD COUNT 3.29 MIL/MM3 (4.50-5.90); RED CELL DISTRIBUTION WIDTH 18.3 % (11.6-17.2); WHITE BLOOD COUNT 11.1 TH/MM3 (4.0-11.0)
[2017-05-14] MEDS: RESP: ALBUTEROL 2.5 MG/IPRATROPIUM 0.5 MG NEB (SCH) INH ×6 (03:53→20:54)
[2017-05-14] MEDS: CHLORHEXIDINE GLUCONATE 2 % 1 PACK (2 CLOTHS) TOP SCH (04:00)
[2017-05-14] MEDS: CEFEPIME INJ 2,000 MG in SODIUM CHLORIDE 0.9% INJ 100 ML IV SCH ×3 (04:00→20:00)
[2017-05-14 04:15] LABS: APTT (PATIENT) 27.4 SEC (24.3-30.1); INTERNATIONAL NORMALIZED RATIO 1.2 RATIO; PROTHROMBIN TIME - PATIENT 13.7 SEC (9.8-11.6)
[2017-05-14 05:32] LABS: AUTOMATED NEUTROPHIL # 7.9 TH/MM3 (1.8-7.7); BASOPHIL # 0.1 TH/MM3 (0-0.2); BASOPHIL % 0.9 % (0.0-2.0); EOSINOPHIL # 0.1 TH/MM3 (0-0.4); EOSINOPHIL % 1.3 % (0.0-4.0); HEMO FLAGS DIFF FINAL; LYMPHOCYTE # 0.9 TH/MM3 (1.0-4.8); MEAN CELL VOLUME 95.2 FL (80.0-100.0); MEAN CORPUSCULAR HEMOGLOBIN 30.6 PG (27.0-34.0); MEAN CORPUSCULAR HGB CONC 32.1 % (32.0-36.0); MONO % 5.9 % (0.0-8.0); NEUT % 82.9 % (16.0-70.0); PLATELET COUNT 197 TH/MM3 (150-450); RED BLOOD COUNT 3.25 MIL/MM3 (4.50-5.90); RED CELL DISTRIBUTION WIDTH 18.4 % (11.6-17.2); WHITE BLOOD COUNT 9.6 TH/MM3 (4.0-11.0)
[2017-05-14 05:41] LABS: ALT (GPT) 38 U/L (12-78); ANION GAP 7 MEQ/L (5-15); AST (GOT) 49 U/L (15-37); BICARBONATE 23.9 MEQ/L (21.0-32.0); BLOOD UREA NITROGEN 15 MG/DL (7-18); CHLORIDE 114 MEQ/L (98-107); GLOMERULAR FILTRATION RATE 147 ML/MIN (>89); MAGNESIUM 2.1 MG/DL (1.5-2.5); POTASSIUM 3.6 MEQ/L (3.5-5.1); SODIUM (NA) 145 MEQ/L (136-145)
[2017-05-14 05:43] LABS: ALKALINE PHOSPHATASE 81 U/L (45-117)
[2017-05-14 05:45] LABS: APTT (PATIENT) 28.5 SEC (24.3-30.1); INTERNATIONAL NORMALIZED RATIO 1.3 RATIO; PROTHROMBIN TIME - PATIENT 14.3 SEC (9.8-11.6)
[2017-05-14 07:08] LABS: BLOOD, URINE SMALL (NEG); COMMENT (UR) CULT NOT INDICATED; CULTURE IF INDICATED CULT NOT INDICATED; GLUCOSE,URINE 70 mg/dL (NEG); HYALINE CAST, URINE 6 /lpf (RARE); KETONE, URINE 10 mg/dL (NEG); MUCUS URINE FEW /lpf (OCC); NITRITE,URINE NEG (NEG)
[2017-05-14 07:15] LABS: URINE COLOR LIGHT-ORANGE (YELLW/STRAW)
[2017-05-14 07:46] LABS: INDIRECT BILIRUBIN 0.9 MG/DL (0.0-0.8); MAGNESIUM 2.2 MG/DL (1.5-2.5); POTASSIUM 3.4 MEQ/L (3.5-5.1)
[2017-05-14 07:47] LABS: BICARBONATE 22.6 MEQ/L (21.0-32.0)
[2017-05-14] MEDS: INSULIN NovoLIN REGULAR SUPPLEMENTAL SCALE SQ SCH ×4 (08:00→21:00)
[2017-05-14] MEDS: ARTIFICIAL TEARS OPTH SOLN 15 ML BTL EACH EYE SCH ×3 (09:00→18:00)
[2017-05-14] MEDS: SPIRONOLACTONE 100 MG TAB PO SCH (09:00)
[2017-05-14] MEDS: PREGABALIN 100 MG CAP PO SCH ×3 (09:00→18:00)
[2017-05-14] MEDS: SODIUM CHLORIDE 0.9% FLUSH 10 ML FLUSH IV FLUSH SCH ×2 (09:00→20:46)
[2017-05-14] MEDS: TAMSULOSIN HCL 0.4 MG CAP PO SCH (09:00)
[2017-05-14] MEDS: busPIRone HCL 10 MG TAB PO SCH ×3 (09:00→18:00)
[2017-05-14] MEDS: LACTULOSE SYRUP 20 GM/30 ML CUP PO SCH (09:00)
[2017-05-14] MEDS: PROPRANOLOL HCL 10 MG TAB PO SCH ×2 (09:00→20:46)
[2017-05-14] MEDS: DOCUSATE SODIUM 50 MG/SENNA 8.6 MG TAB PO SCH ×2 (09:00→20:47)
[2017-05-14] MEDS: PANTOPRAZOLE SOD 40 MG DELAYED RELEASE TAB PO SCH ×2 (09:00→20:48)
[2017-05-14] MEDS: RIFAXIMIN 550 MG TAB PO SCH ×2 (09:00→20:48)
--- NOTE | 2017-05-14 09:06 | HHI.CCPN ---
Subjective Remarks/Hospital Course 56 year old male. Date of admission 05/13/2017. Past medical history includes hepatitis C, EtOH, portal hypertension, liver cirrhosis, diabetes mellitus septic, hypertension and sacral decubitus ulcers. Patient was a 05/04 to [facility] with no like stools. Previous diagnoses grade 4 esophageal varices. He received intravenous pantoprazole, Sandostatin ceftriaxone. On 05/05, patient developed massive hematemesis and hemorrhagic shock for intubated transfusion 5 RBCs. EGD was performed with banding of 3 varices. The stomach and onto unable to be evaluated. I was consulted but not considered to be a candidate due to portal vein thrombosis and was therefore transferred to [facility].At that facility, he arrived 05/08 on pantoprazole, Sandostatin and ceftriaxone. His medications were discontinued 05/10. Antibiotics were transitioned to piperacillin/tazobactam eventually to cefepime. Discontinued date 05/14. He was extubated 05/12. Patient was found to have likely hepatocellular carcinoma on CT. There are questionable multifocal arterial lesions likely consistent with this diagnosis. MR liver was to be performed but no information sent.. TIPS is contraindicated with portal vein thrombosis/cancer therefore patient was transferred back. Currently , patient is currently resting in bed in no acute distress 05/14 Patient is lying in bed in NAD. Afebrile. Objective Vital Signs Date Time Temp Pulse Resp B/P (MAP) Pulse Ox O2 Delivery O2 Flow Rate FiO2 05/14/17 06:00 73 05/14/17 06:00 30 156/77 (103) 92 05/14/17 00:00 98.4 05/13/17 22:05 Nasal Cannula 2.00 Intake and Output 05/14/17 05/14/17 05/15/17 08:00 16:00 00:00 Intake Total 340 ml Output Total 1100 ml Balance -760 ml Result Diagram: 05/14/17 0449 05/14/17 0449 Other Results Laboratory Tests Test 05/13/17 17:49 05/13/17 23:48 05/14/17 04:49 05/14/17 05:00 Nasal Screen MRSA (PCR) MRSA NOT DETECTED White Blood Count 11.1 TH/MM3 9.6 TH/MM3 Red Blood Count 3.29 MIL/MM3 3.25 MIL/MM3 Hemoglobin 10.1 GM/DL 9.9 GM/DL Hematocrit 31.2 % 31.0 % Mean Corpuscular Volume 94.8 FL 95.2 FL Mean Corpuscular Hemoglobin 30.9 PG 30.6 PG Mean Corpuscular Hemoglobin Concent 32.6 % 32.1 % Red Cell Distribution Width 18.3 % 18.4 % Platelet Count 236 TH/MM3 197 TH/MM3 Mean Platelet Volume 8.6 FL 8.5 FL Neutrophils (%) (Auto) 85.9 % 82.9 % Lymphocytes (%) (Auto) 7.4 % 9.0 % Monocytes (%) (Auto) 5.6 % 5.9 % Eosinophils (%) (Auto) 1.0 % 1.3 % Basophils (%) (Auto) 0.1 % 0.9 % Neutrophils # (Auto) 9.5 TH/MM3 7.9 TH/MM3 Lymphocytes # (Auto) 0.8 TH/MM3 0.9 TH/MM3 Monocytes # (Auto) 0.6 TH/MM3 0.6 TH/MM3 Eosinophils # (Auto) 0.1 TH/MM3 0.1 TH/MM3 Basophils # (Auto) 0.0 TH/MM3 0.1 TH/MM3 CBC Comment DIFF FINAL DIFF FINAL Differential Comment Prothrombin Time 13.7 SEC 14.3 SEC Prothromb Time International Ratio 1.2 RATIO 1.3 RATIO Activated Partial Thromboplast Time 27.4 SEC 28.5 SEC Fibrinogen 168 mg/dL Blood Urea Nitrogen 16 MG/DL 15 MG/DL Creatinine 0.64 MG/DL 0.57 MG/DL Random Glucose 239 MG/DL 237 MG/DL Total Protein 6.5 GM/DL 6.6 GM/DL Albumin 2.4 GM/DL 2.3 GM/DL Calcium Level 8.1 MG/DL 8.1 MG/DL Phosphorus Level 2.0 MG/DL 2.6 MG/DL Magnesium Level 2.2 MG/DL 2.1 MG/DL Alkaline Phosphatase 84 U/L 81 U/L Aspartate Amino Transf (AST/SGOT) 48 U/L 49 U/L Alanine Aminotransferase (ALT/SGPT) 37 U/L 38 U/L Total Bilirubin 2.0 MG/DL 2.0 MG/DL Direct Bilirubin 1.1 MG/DL Sodium Level 145 MEQ/L 145 MEQ/L Potassium Level 3.4 MEQ/L 3.6 MEQ/L Chloride Level 114 MEQ/L 114 MEQ/L Carbon Dioxide Level 22.6 MEQ/L 23.9 MEQ/L Anion Gap 8 MEQ/L 7 MEQ/L Estimat Glomerular Filtration Rate 129 ML/MIN 147 ML/MIN Indirect Bilirubin 0.9 MG/DL Ammonia 32 MCMOL/L 27 MCMOL/L Total Creatine Kinase 99 U/L Lipase 212 U/L Lactic Acid Level 1.5 mmol/L Urine Color LIGHT-ORANGE Urine Turbidity CLEAR Urine pH 6.0 Urine Specific [place] 1.029 Urine Protein 100 mg/dL Urine Glucose (UA) 70 mg/dL Urine Ketones 10 mg/dL Urine Occult Blood SMALL Urine Nitrite NEG Urine Bilirubin NEG Urine Urobilinogen LESS THAN 2.0 MG/DL Urine Leukocyte Esterase NEG Urine RBC 8 /hpf Urine WBC 2 /hpf Urine Hyaline Casts 6 /lpf Urine Mucus FEW /lpf Urine Yeast (Budding) FEW Microscopic Urinalysis Comment CULT NOT INDICATED Imaging Last Impressions Chest X-Ray 05/13/17 0000 Signed Impressions: Service Date/Time: April 19:01 - CONCLUSION: 1. Interim extubation. 2. Left perihilar/infrahilar consolidation. 3. Patchy mild bilateral airspace opacities. 4. Small left pleural effusion. Raúl Greene MD Objective Remarks GENERAL: 56-year-old male, resting in bed in no distress SKIN: Warm and dry. Well-perfused HEAD: Atraumatic. Normocephalic. EYES: Pupils equal and round about 3 Calzada's bilaterally and reactive. No scleral icterus. No injection or drainage. ENT: No nasal bleeding or discharge. Mucous membranes pink and moist. NECK: Trachea midline. No JVD. CARDIOVASCULAR: Regular rate and rhythm. S1, S2. No S4. Without murmurs RESPIRATORY: Ms. breath sounds left lower lobe. No wheezing GASTROINTESTINAL: Abdomen protuberant/distended. Nontender to palpation. MUSCULOSKELETAL: Extremities 1+ peripheral edema. No obvious deformities. NEUROLOGICAL: Awake and alert. No obvious cranial nerve deficits. Motor grossly within normal limits. Five out of 5 muscle strength in the arms and legs. Normal speech. A/P Assessment and Plan Neuro/Psych: Depression History of alcohol dependence History of hepatic encephalopathy Diabetic neuropathy Chronic pain syndrome Patient is on hydrocodone/acetaminophen at home for pain management Morphine sulfate for pain management. Continue buspirone 10 mg by mouth 3 times a day/home medication Continue Pregabalin 300 mg by mouth 3 times a day/home medication for diabetic neuropathy. CV: Hypertension Dyslipidemia Monitor HR and BP keep MAP>65mmHg Continue propranolol 10 mg by mouth twice a day. Continue Aldactone 100 mg by mouth daily Lactic acid 1.5 Resp: Extubated 05/12. Nasal cannula to maintain saturations greater than equal to 92% Incentive spirometry while awake Albuterol/Atrovent every 4 hours with albuterol aerosols every 2 hours as needed Dyspnea GI: Upper GI bleed from grade 4 esophageal varices status post banding 3 05/05 Hepatitis C IIIa scheduled for ribavirin 200 mg and sofosbuvir/velpatasvir therapy 400 mg/100 mg History of portal vein thrombosis Likely hepatocellular carcinoma Elevated ammonia Liver cirrhosis from EtOH and hepatitis C Abdominal ascites Continue pantoprazole 40 mg by mouth twice a day Continue Xifaxan 550 twice a day and lactulose 30 cc daily. Ammonia level 27 Not a candidate for TIPS secondary to portal vein thrombosis and multifocal arterially enhancing lesions concerning for diffuse HCC. GI eval Speech eval, diet per speech : BPH Continue tamsulosin 0.8 milligrams by mouth daily Endo: Diabetes mellitus with neuropathy Sliding scale insulin with Accu-Cheks to maintain euglycemia/low regimen with meals/at bedtime with Novulin R Renal: Monitor renal function, electrolytes replacement as needed Heme/Onc: Monitor CBC. Onc eval for HCC ID: History of HCAP ESBL+ Patient previously on ceftriaxone for upper GI bleed. Transition to Piperacillin tazobactam. To continue cefepime Check sputum cx MSK: Unstable sacral decubitus ulcer Wound care evaluate and treat Access - Utilize peripheral IV. Central line if indicated Prophylaxis - GI - pantoprazole - DVT - SCD/pharmacological prophylaxis contra indicated with GI bleed Will sign off and transfer care to [facility] Level III Rony Mckeon MD May 14, 2017 09:06
[2017-05-14] MEDS: ACETAMINOPHEN/HYDROcodone 325 MG/5 MG TAB PO PRN ×2 (10:45→18:30)
--- NOTE | 2017-05-14 12:10 | PD.CONS ---
HPI History of Present Illness This is a 56 year old with a history of liver cirrhosis, esophageal varices, portal gastropathy, hepatitis C- Genotype 3a (recently on Epclusa/ribavirin as outpatient), who was recently hospitalized for upper GI Bleeding. He was evaluated with EGD (05/05/17)----> There was a nipple sign on a large distal varix and that seems to be where the bleeding was from. 4 bands applied on 3 varices. Bleeding seemed controlled. There was a great deal of blood in the upper stomach. The stomach and duodenum could not be examined further, cannot rule out gastric varices. He was treated with octreotide and protonix drips and IR was consulted for evaluation for TIPS procedure. However, he was deemed not be a candidate at this facility secondary to history portal vein occlusion in the liver hilum with reconstitution of parenchymal portal vein branches on CT scan 09/17/16. He was then transferred to [facility] for possible TIPS procedure. While at [facility], he was found to likely have hepatocellular carcinoma on CT. There were questionable multifocal arterial lesions likely consistent with this diagnosis. MR liver was to be performed but no information sent. TIPS is contraindicated with portal vein thrombosis/cancer therefore patient was transferred back to this facility. He is currently in the ICU, being treated for recent respiratory failure (now extubated), recent upper GI bleed, Diabetes, BPH, sacral decubitus ulcer. He is lethargic, but oriented to self and place. He complains of diffuse abdominal pain- not really able to describe or identify aggravating or alleviating factors. He is not having any nausea or vomiting. He has a flexiseal and is passing dark liquid stool. GI has been consulted for further evaluation and treatment. Unfortunately, I do not see any of the records from his recent stay at [facility]. D/W nurse to make sure we request these records today for continuation of care. (Yumiko Vale) PFSH Past Medical History Grade 4 esophageal varices Recurrent esophageal variceal bleeding Portal hypertension Esophageal cirrhosis Hepatitis C Diabetes mellitus Diabetic neuropathy Portal vein thrombosis Suspected HCC DDD Sacral decubitus ulcer recent HCAP Klebsiella ESBL positive Pancytopenia Past Surgical History EGD//colonoscopy Paracentesis Appendectomy Plating right shoulder/right clavicle Liver biopsy (Yumiko Vale) Coded Allergies: bacitracin (Unverified Allergy, Mild, RASH, 05/04/17) gramicidin D (Unverified Allergy, Mild, 05/04/17) neomycin (Unverified Allergy, Mild, 05/04/17) polymyxin B (Unverified Allergy, Mild, RASH, 05/04/17) Medications Allergies Coded Allergies Type Severity Reaction Last Updated Verified bacitracin Allergy Mild RASH 05/04/17 No gramicidin D Allergy Mild 05/04/17 No neomycin Allergy Mild 05/04/17 No polymyxin B Allergy Mild RASH 05/04/17 No Active Scripts Medications Dose Route/Sig Max Daily Dose Days Date Category Dose Instructions Metformin (Metformin HCl) 850 Mg Tab 1,000 Mg PO BIDPC 05/04/17 Reported With meals Metformin (Metformin HCl) 850 Mg Tab 1,000 Mg PO DAILY 05/04/17 Reported With a meal Nadolol 20 Mg Tab 20 Mg PO DAILY 05/04/17 Reported Amlodipine (Amlodipine Besylate) 5 Mg Tab 5 Mg PO DAILY 05/04/17 Reported Lyrica (Pregabalin) 300 Mg Cap 300 Mg PO TID 05/04/17 Reported Spironolactone 100 Mg Tab 100 Mg PO DAILY 05/04/17 Reported Pantoprazole (Pantoprazole Sodium) 40 Mg Tab 40 Mg PO BID 05/04/17 Reported Penicillin V Potassium 500 Mg Tab 500 Mg PO Q6H 05/04/17 Reported Epclusa 400 mg-100 mg Tablet (Sofosbuvir/Velpatasvir) 400 Mg-100 Mg Tablet 05/04/17 Reported Ribavirin 200 Mg Cap 05/04/17 Reported Hydrocodone-Acetaminophen 5-325 mg Tab 1 Tab PO TID PRN 02/09/17 Rx Propranolol (Propranolol HCl) 10 Mg Tab 10 Mg PO Q12HR 01/09/17 Rx Flomax (Tamsulosin HCl) 0.4 Mg Cap 0.8 Mg PO DAILY 12/22/16 Rx Xifaxan (Rifaximin) 550 Mg Tab 550 Mg PO BID 12/22/16 Rx Tums (Calcium Carbonate (Antacid)) 500 Mg Chew 500 Mg CHEW DAILY PRN 12/01/16 Reported Buspirone (Buspirone HCl) 10 Mg Tab 10 Mg PO TID 09/17/16 Reported Baclofen 20 Mg Tab 20 Mg PO TID 09/17/16 Reported Family History No family history of liver disease. Social History Remote history of alcohol and substance abuse. Quit drinking 6 years ago. Occasional tobacco abuse (Yumiko Vale) Review of Systems Constitutional: COMPLAINS OF: Fatigue Respiratory: COMPLAINS OF: Cough, Shortness of breath Gastrointestinal: COMPLAINS OF: Abdominal pain, Diarrhea ROS limited history- poor historian (Yumiko Vale) GI Exam Vitals I&O Vital Signs Date Time Temp Pulse Resp B/P (MAP) Pulse Ox O2 Delivery O2 Flow Rate FiO2 05/14/17 09:06 92 Nasal Cannula 2.00 05/14/17 06:00 73 05/14/17 06:00 73 30 156/77 (103) 92 05/14/17 05:00 78 28 161/80 (107) 93 05/14/17 04:00 69 30 142/73 (96) 92 05/14/17 04:00 75 05/14/17 03:00 74 28 149/82 (104) 92 05/14/17 02:00 75 30 161/79 (106) 92 05/14/17 02:00 86 05/14/17 01:00 68 32 133/71 (91) 93 05/14/17 00:00 81 05/14/17 00:00 98.4 81 38 162/80 (107) 93 05/13/17 23:00 98.4 92 41 166/89 (114) 93 05/13/17 22:05 96 Nasal Cannula 2.00 05/13/17 22:00 81 05/13/17 22:00 78 32 136/77 (96) 95 05/13/17 21:00 98.6 83 30 150/89 (109) 95 05/13/17 20:00 98.6 97 28 157/74 (101) 92 05/13/17 20:00 97 05/13/17 19:00 93 Nasal Cannula 4.00 05/13/17 19:00 98.6 107 28 152/86 (108) 92 05/13/17 18:00 99.1 05/13/17 18:00 100 37 145/76 (99) 91 I/O 05/13/17 05/13/17 05/13/17 05/14/17 05/14/17 05/14/17 07:00 15:00 23:00 07:00 15:00 23:00 Intake Total 100 ml 340 ml Output Total 1100 ml Balance 100 ml -760 ml Intake Oral 240 ml IV Total 100 ml 100 ml Output Urine Total 700 ml Stool Total 400 ml Imaging Last Impressions Chest X-Ray 05/13/17 0000 Signed Impressions: Service Date/Time: April 19:01 - CONCLUSION: 1. Interim extubation. 2. Left perihilar/infrahilar consolidation. 3. Patchy mild bilateral airspace opacities. 4. Small left pleural effusion. Raúl Greene MD Laboratory Test 05/13/17 17:49 05/13/17 23:48 05/14/17 04:49 05/14/17 05:00 Nasal Screen MRSA (PCR) MRSA NOT DETECTED White Blood Count 11.1 TH/MM3 9.6 TH/MM3 Red Blood Count 3.29 MIL/MM3 3.25 MIL/MM3 Hemoglobin 10.1 GM/DL 9.9 GM/DL Hematocrit 31.2 % 31.0 % Mean Corpuscular Volume 94.8 FL 95.2 FL Mean Corpuscular Hemoglobin 30.9 PG 30.6 PG Mean Corpuscular Hemoglobin Concent 32.6 % 32.1 % Red Cell Distribution Width 18.3 % 18.4 % Platelet Count 236 TH/MM3 197 TH/MM3 Mean Platelet Volume 8.6 FL 8.5 FL Neutrophils (%) (Auto) 85.9 % 82.9 % Lymphocytes (%) (Auto) 7.4 % 9.0 % Monocytes (%) (Auto) 5.6 % 5.9 % Eosinophils (%) (Auto) 1.0 % 1.3 % Basophils (%) (Auto) 0.1 % 0.9 % Neutrophils # (Auto) 9.5 TH/MM3 7.9 TH/MM3 Lymphocytes # (Auto) 0.8 TH/MM3 0.9 TH/MM3 Monocytes # (Auto) 0.6 TH/MM3 0.6 TH/MM3 Eosinophils # (Auto) 0.1 TH/MM3 0.1 TH/MM3 Basophils # (Auto) 0.0 TH/MM3 0.1 TH/MM3 CBC Comment DIFF FINAL DIFF FINAL Differential Comment Prothrombin Time 13.7 SEC 14.3 SEC Prothromb Time International Ratio 1.2 RATIO 1.3 RATIO Activated Partial Thromboplast Time 27.4 SEC 28.5 SEC Fibrinogen 168 mg/dL Blood Urea Nitrogen 16 MG/DL 15 MG/DL Creatinine 0.64 MG/DL 0.57 MG/DL Random Glucose 239 MG/DL 237 MG/DL Total Protein 6.5 GM/DL 6.6 GM/DL Albumin 2.4 GM/DL 2.3 GM/DL Calcium Level 8.1 MG/DL 8.1 MG/DL Phosphorus Level 2.0 MG/DL 2.6 MG/DL Magnesium Level 2.2 MG/DL 2.1 MG/DL Alkaline Phosphatase 84 U/L 81 U/L Aspartate Amino Transf (AST/SGOT) 48 U/L 49 U/L Alanine Aminotransferase (ALT/SGPT) 37 U/L 38 U/L Total Bilirubin 2.0 MG/DL 2.0 MG/DL Direct Bilirubin 1.1 MG/DL Sodium Level 145 MEQ/L 145 MEQ/L Potassium Level 3.4 MEQ/L 3.6 MEQ/L Chloride Level 114 MEQ/L 114 MEQ/L Carbon Dioxide Level 22.6 MEQ/L 23.9 MEQ/L Anion Gap 8 MEQ/L 7 MEQ/L Estimat Glomerular Filtration Rate 129 ML/MIN 147 ML/MIN Indirect Bilirubin 0.9 MG/DL Ammonia 32 MCMOL/L 27 MCMOL/L Total Creatine Kinase 99 U/L Lipase 212 U/L Lactic Acid Level 1.5 mmol/L Urine Color LIGHT-ORANGE Urine Turbidity CLEAR Urine pH 6.0 Urine Specific Cisco 1.029 Urine Protein 100 mg/dL Urine Glucose (UA) 70 mg/dL Urine Ketones 10 mg/dL Urine Occult Blood SMALL Urine Nitrite NEG Urine Bilirubin NEG Urine Urobilinogen LESS THAN 2.0 MG/DL Urine Leukocyte Esterase NEG Urine RBC 8 /hpf Urine WBC 2 /hpf Urine Hyaline Casts 6 /lpf Urine Mucus FEW /lpf Urine Yeast (Budding) FEW Microscopic Urinalysis Comment CULT NOT INDICATED Physical Examination HEENT: Normocephalic; atraumatic; + jaundice. CHEST: Resp shallow/even. Diminished CARDIAC: RRR. ABDOMEN: Soft, distended with ascites, diffuse tenderness, hepatosplenomegaly; bowel sounds are present in all four quadrants. EXTREMITIES: BLE edema. SKIN: Normal; no rash; no jaundice. STONE GRADER: Lethargic, generalized weakness (Vale,Yumiko Sonja RIPRAP WORKER) Assessment and Plan Plan ASSESSMENT: - Upper GIB secondary to esophageal varices. EGD (05/05/17)----> There was a nipple sign on a large distal varix and that seems to be where the bleeding was from. 4 bands applied on 3 varices. Bleeding seemed controlled. There was a great deal of blood in the upper stomach. The stomach and duodenum could not be examined further, cannot rule out gastric varices. He was treated with octreotide and protonix drips and IR was consulted for evaluation for TIPS procedure. However, he was deemed not be a candidate at this facility secondary to history portal vein occlusion in the liver hilum with reconstitution of parenchymal portal vein branches on CT scan 09/17/16. He was then transferred to [facility] for possible TIPS procedure. While at [facility], he was found to likely have hepatocellular carcinoma on CT. There were questionable multifocal arterial lesions likely consistent with this diagnosis. MR liver was to be performed but no information sent. TIPS is contraindicated with portal vein thrombosis/cancer therefore patient was transferred back to this facility. PPI, Inderal - Anemia. HH 9.9/31.0. - Coagulopathy. PT 14.3, INR 1.3. 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 No ETOH x 6 years. On tx with Epclusa /ribavirin as outpatient. T. Bili 2.0, AST 49, ALT 38, ALk Phosph. Per [facility],suspected HCC- need records. Get AFP. ? oncology evaluation. Not a transplant candidate - Suspected hepatocellular carcinoma. Per imaging at [facility] (CT scan, MRI) We do not have these records. D/W nurse need to obtain records for continuation of care. AFP level. - Portal vein thrombosis. Hx of portal vein thrombosis on August 2016 imaging here. Also recently found to have this on CT/MRI imaging at [facility]. - Hepatitis C, Genotype 3a. On Epclusa as outpatient. - Hepatic encephalopathy. Lethargic. Lactulose, Xifaxan - Ascites. Aldactone. Cefepime. - Respiratory failure, PNA, Pleural effusion.Cefepime - HTN, Hyperlipidemia, BPH, DM, Neuropathy, Sacral wound. PLAN: - Low sodium diet - Cont. Protonix - Cont. Propranolol - Cont. Spironolactone - Cont. Lactulose - Cont. Xifaxan - Obtain records from [facility]- imaging/progress notes/consultations/labs- please request today - AFP level - Monitor CBC, PT/INR, CMP, Ammonia - Consider Hematology/Oncology evaluation- will d/w Dr. Minor - Supportive care - Further recommendations to follow based on results of above - Pt seen and examined by Dr. Minor and myself and this note is written on his behalf (Yumiko Vale) Physician Comments seen, examined agree with above repeat abdominal us if ascites paracentesis trial of o albumin iv (Jody Minor MD) Yumiko Vale May 14, 2017 12:10 Jody Minor MD May 14, 2017 20:01
--- NOTE | 2017-05-14 17:01 | PD.WCN.NOT ---
Wound Consult Additional Information: 05/14/2017 1140 am: Attempted to see patient, TRAVIS Morrow states,"He really can't be turned right now." Will attempt to see patient on Wednesday if still admitted [facility] Wong [facility] May 14, 2017 17:01
[2017-05-14] MEDS: ALBUMIN HUMAN 25% 25 GM/100 ML BAGP IV SCH (20:46)
[2017-05-15] VITALS (16 sets, daily range): BP systolic 131–165; BP diastolic 70–88; PULSE 64–89; RESP 17–29; TEMP 98.6–98.9; O2SAT 92–100
--- NOTE | 2017-05-15 00:22 | MB ---
cc: MIGUEL POPE M.D. DATE OF CONSULTATION 05/14/[address] Mckeon REASON FOR CONSULTATION Oncology consulted to render opinion regarding patient with possible hepatocellular carcinoma. HISTORY OF PRESENT ILLNESS The patient is a 56-year-old with hepatitis C, cirrhosis and portal hypertension, first admitted to the hospital May 08 for upper GI bleed due to esophageal varices. He later was transferred to [facility] to consider TIPS procedure. However, he was found to have portal vein thrombosis and not a candidate for TIPS. While he was over at [facility] he had a CT done which reportedly showed multifocal arterially enhancing lesion suspicious for hepatocellular carcinoma. There was mention of doing MRI of the liver but could not locate the report and may not have been done. In any way, the patient was transferred back to [place]. Oncology was consulted to evaluate for possible hepatocellular carcinoma. The patient is in the Intensive Care Unit. He is quite lethargic. He is not able to provide a detailed history. PAST MEDICAL HISTORY 1. Hepatitis C, cirrhosis. 2. Portal hypertension. 3. Portal vein thrombosis. 4. Alcohol abuse. 5. Diabetes mellitus, hypertension. 6. Sacral decubitus ulcer. 7. Recurrent GI bleed. 8. Esophageal varices. 9. Hyperlipidemia. 10. Osteoarthritis. 11. Neuropathy. 12. Encephalopathy. PAST SURGICAL HISTORY Multiple paracenteses, colonoscopy and upper endoscopy. Esophageal varices banding. Appendectomy. Liver biopsy. FAMILY HISTORY Noncontributory. SOCIAL HISTORY No tobacco use. He quit alcohol. He lives alone. He has a son in [place]. ALLERGIES BACITRACIN, GRAMICIDIN, NEOMYCIN, POLYMYXIN. CURRENT MEDICATIONS 1. BuSpar. 2. Aldactone. 3. Flomax. 4. Lyrica. 5. Lactulose. 6. Protonix. 7. Propranolol. 8. ___. 9. Sarahi-Colace. 10. DuoNebs. 11. Cefepime. REVIEW OF SYSTEMS CONSTITUTIONAL: As above. EYES: Denies blurry vision, double vision. ENT: No mouth or voice changes. CARDIOVASCULAR: No chest pressure, palpitation. RESPIRATORY: Has some shortness of breath. Denies significant cough. GI: As above. : No dysuria, hematuria. MUSCULOSKELETAL: Negative. HEMATOLOGY: As above. ENDOCRINE: Negative. DERMATOLOGY: Negative. PSYCHIATRIC: Negative. NEUROLOGIC: As above. PHYSICAL EXAMINATION VITALS: Temperature 98.4, blood pressure 156/77, O2 saturation 92% on 2 liters nasal cannula. GENERAL: He is awake, is oriented to place and self. He is lethargic. HEENT: Atraumatic, normocephalic. Pupils equal, round, reactive to light. Positive sclerae icterus. Oropharynx dry mucosa. NECK: No thyromegaly. No palpable mass. LYMPHATICS: No palpable cervical, clavicular, axillary, inguinal lymph node. CARDIOVASCULAR: Regular S1-S2. No murmur. LUNGS: Lungs clear to auscultation anteriorly. ABDOMEN: Distended. Could not palpate liver or spleen. Positive bowel sounds. EXTREMITIES: No cyanosis, clubbing. Has 1+ edema of upper extremity, lower extremities. No calf tenderness. SKIN: Jaundice. NEUROLOGIC: Exam is lethargic. LABORATORY DATA Reviewed. ASSESSMENT 1. Questionable hepatocellular carcinoma. While he was at [facility] reportedly the CT showed multifocal arterially enhancing lesions with venous and arterial washout concerning for multifocal hepatocellular carcinoma. His last alpha-fetoprotein in August was only 4.1. There was mention of getting MRI with liver protocol at [facility] but I could not find the report and the patient could not tell me if the MRI had been done. At this point I am going to repeat his alpha-fetoprotein. I will discuss with the radiologist in the morning to see what would be the best MRI test to do to further evaluate the liver lesions. If he indeed has hepatocellular carcinoma he is not a candidate for any systemic therapy or local therapy due to his poor performance status. 2. Hepatitis C cirrhosis with portal hypertension. 3. Recurrent GI bleed due to esophageal varices. He had multiple banding. He still has melanotic stool. GI is following. 4. Hepatic encephalopathy. 5. Diabetes mellitus. 6. Hypertension. 7. Portal vein thrombosis. RECOMMENDATIONS Reviewed his record from [facility]. Check alpha fetoprotein. Will discuss with the radiologist to see if we could get MRI with liver protocol and Eovist contrast. Thank you Dr. Mckeon for asking me to see this patient. MD KEE Fu/KERLINE /6:10 PM /11:55 PM MTDD
[2017-05-15] MEDS: RESP: ALBUTEROL 2.5 MG/IPRATROPIUM 0.5 MG NEB (SCH) INH ×6 (03:40→21:01)
[2017-05-15] MEDS: CHLORHEXIDINE GLUCONATE 2 % 1 PACK (2 CLOTHS) TOP SCH (04:00)
[2017-05-15] MEDS: CEFEPIME INJ 2,000 MG in SODIUM CHLORIDE 0.9% INJ 100 ML IV SCH ×3 (04:00→20:00)
[2017-05-15] MEDS: INSULIN NovoLIN REGULAR SUPPLEMENTAL SCALE SQ SCH ×4 (08:00→21:00)
[2017-05-15] MEDS: ARTIFICIAL TEARS OPTH SOLN 15 ML BTL EACH EYE SCH ×3 (09:00→17:34)
--- NOTE | 2017-05-15 09:05 | RADRPT ---
EXAM DATE/TIME: 05/15/2017 08:05 [facility] COMPARISON: US ABDOMEN - COMPLETE, December 18, 2016, 8:50. INDICATIONS : Abdominal pain. MEDICAL HISTORY : Hypercholesterolemia. Hypertension. Hepatitis C. Neuropathy. Ulcer. Diabetes. Melana. Chicken pox. SURGICAL HISTORY : Tonsillectomy. Appendectomy. Right clavicular metal plate. Blood transfusion. ENCOUNTER: Sequela ACUITY: 1 day PAIN SCORE: 0/10 LOCATION: Abdomen. FINDINGS: The technologist reports the examination was difficult secondary to patient being combative. The fan ent grabbed technologist. Multiple attempts were made to scan the patient. Only the liver was scanned . The liver is very heterogeneous. There is a nodular hepatic surface. There is moderate ascites arou nd the liver. CONCLUSION: Limited abdominal ultrasound with the patient being combative during the examination. The liver is di ffusely abnormal with coarsening of echotexture and a nodular liver surface likely from cirrhosis. Th ere is moderate ascites seen around the liver. Raúl Garay MD on May 15, 2017 at 8:59 Board Certified Radiologist. This report was verified electronically.
--- NOTE | 2017-05-15 09:19 | PD.ONC.PN ---
Subjective Subjective Remarks Afebrile overnight. Patient confused and combative. Objective Data Date Time Temp Pulse Resp B/P (MAP) Pulse Ox O2 Delivery O2 Flow Rate FiO2 05/15/17 08:44 93 Nasal Cannula 4.00 05/15/17 06:00 70 05/15/17 04:00 98.7 77 24 148/84 (105) 92 05/15/17 04:00 65 05/15/17 03:00 68 20 152/73 (99) 94 05/15/17 02:00 66 05/15/17 02:00 66 21 146/84 (104) 93 05/15/17 01:00 67 22 146/70 (95) 94 05/15/17 00:00 98.8 64 21 140/72 (94) 92 05/15/17 00:00 64 05/14/17 23:00 62 19 137/74 (95) 92 05/14/17 22:00 66 05/14/17 22:00 67 21 128/71 (90) 94 05/14/17 21:00 70 20 129/71 (90) 96 05/14/17 20:54 94 Nasal Cannula 2.00 05/14/17 20:00 98.9 75 23 131/68 (89) 94 05/14/17 20:00 75 05/14/17 19:00 94 Nasal Cannula 4.00 05/15/17 05/15/17 05/15/17 07:00 15:00 23:00 Intake Total 240 ml Output Total 900 ml Balance -660 ml Result Diagram: 05/14/17 0449 05/14/17 0449 Imaging Studies Last 24 hours Impressions Abdomen Ultrasound 05/15/17 0000 Signed Impressions: Service Date/Time: Monday, May 15, 2017 08:05 - CONCLUSION: Limited abdominal ultrasound with the patient being combative during the examination. The liver is diffusely abnormal with coarsening of echotexture and a nodular liver surface likely from cirrhosis. There is moderate ascites seen around the liver. Raúl Garay MD Administered Medications Medications (Trade) Dose Ordered Sig/Jez Route PRN Reason Start Time Stop Time Status Last Admin Dose Admin Buspirone HCl (Buspar) 10 mg TID PO 05/14/17 09:00 05/14/17 18:00 Pantoprazole Sodium (Protonix) 40 mg BID PO 05/13/17 21:00 05/14/17 20:48 Propranolol HCl (Inderal) 10 mg Q12HR PO 05/13/17 21:00 05/14/17 20:46 Rifaximin (Xifaxan) 550 mg BID PO 05/13/17 21:00 05/14/17 20:48 Spironolactone (Aldactone) 100 mg DAILY PO 05/14/17 09:00 05/14/17 09:00 Tamsulosin HCl (Flomax) 0.8 mg DAILY PO 05/14/17 09:00 05/14/17 09:00 Pregabalin (Lyrica) 300 mg TID PO 05/14/17 09:00 05/14/17 18:00 Sodium Chloride (NS Flush) 2 ml BID IV FLUSH 05/13/17 21:00 05/14/17 20:46 Acetaminophen/ Hydrocodone Bitart ([place] 5-325 Mg) 1 tab Q4H PRN PO PAIN SCALE 1 TO 5 05/13/17 18:30 05/14/17 18:30 Artificial Tears (Tears Naturale Opth Soln) 1 drop TID EACH EYE 05/14/17 09:00 05/14/17 13:00 Albuterol/ Ipratropium (Duoneb Neb) 1 ampule Q4HR NEB INH 05/13/17 20:00 05/15/17 08:44 Miscellaneous Information 1 Q361D XX 05/13/17 18:30 05/13/17 19:00 Chlorhexidine Gluconate (Chlorhexidine 2% Cloth) 3 pack Taper DAILY@04 TOP 05/14/17 04:00 05/10/18 03:59 05/14/17 04:00 Senna/Docusate Sodium (Sarahi-Colace) 1 tab BID PO 05/13/17 21:00 05/14/17 20:47 Insulin Human Regular (NovoLIN R SUPPLEMENTAL SCALE) 1 ACHS SLIDING SCALE SQ 05/13/17 21:00 05/14/17 21:00 Lactulose (Lactulose Liq) 30 ml DAILY PO 05/14/17 09:00 05/14/17 09:00 Cefepime HCl 2000 mg/Sodium Chloride 100 ml @ 200 mls/hr Q8H IV 05/13/17 20:00 05/15/17 04:00 Potassium Phosphate 30 mmol/ Sodium Chloride 260 ml @ 42 mls/hr UNSCH PRN IV SEE LABEL COMMENTS 05/13/17 18:30 05/14/17 02:00 Albumin Human (Albumin 25% Inj) 25 gm Q12H IV 05/14/17 21:00 05/14/17 20:46 Objective Remarks GENERAL: chronically ill appearing male upright in bed, disheveled appearance SKIN: Warm and dry. HEAD: Normocephalic. EYES: No scleral icterus. No injection or drainage. NECK: Supple, trachea midline. CARDIOVASCULAR: Regular rate and rhythm RESPIRATORY: Breath sounds equal bilaterally. No accessory muscle use. GASTROINTESTINAL: Abdomen distended with ascites. EXTREMITIES: No cyanosis. +LE edema. NEUROLOGICAL: awake, confused, follows some commands. does not answer questions appropriately Assessment/Plan Problem List: (1) Hepatocellular carcinoma ICD Codes: C22.0 - Liver cell carcinoma Plan: --Questionable hepatocellular carcinoma. --While he was at [facility] reportedly the CT showed lesion concerning for multifocal hepatocellular carcinoma. --His last alpha-fetoprotein in August was only 4.1. --will need MRI for further differentiation -- If he indeed had hepatocellular carcinoma he is not a candidate for any systemic therapy or local therapy due to his poor performance status. (2) UGIB (upper gastrointestinal bleed) ICD Codes: K92.2 - Gastrointestinal hemorrhage, unspecified Status: Acute Plan: --Recurrent GI bleed due to esophageal varices. --had multiple banding. --still has melanotic stool. GI is following. Assessment 56y/o male with hepatitis C and cirrhosis. Oncology consulted to render opinion regarding patient with possible hepatocellular carcinoma. h/o Hepatitis C, cirrhosis. Portal hypertension. Portal vein thrombosis.Alcohol abuse.Diabetes mellitus, hypertension. Sacral decubitus ulcer.Recurrent GI bleed. Esophageal varices.Hyperlipidemia.Osteoarthritis.Neuropathy. Encephalopathy. Multiple paracenteses, colonoscopy and upper endoscopy. Esophageal varices banding. Appendectomy. Liver biopsy. Plan 1. will need MRI with liver protocol and Eovist contrast. 2. monitor CBC Attending Statement The exam, history, and the medical decision-making described in the above note were completed with the assistance of the mid-level provider. I reviewed and agree with the findings presented. I attest that I had a [id number] encounter with the patient on the same day, and personally performed and documented my assessment and findings in the medical record. Still confused. Denies abdominal pain. Discussed with pt's parents at the bedside. Told them that if pt is diagnosed with HCC, he is not a candidate for local therapy or systemic therapy. We discussed whether to do MRI of liver for further evaluation. They understand the poor prognosis and would like to hold off MRI for now as it is not going to change the management plan. We discussed getting palliative care meds involved and they are interested. Charley Solomon May 15, 2017 09:19 Frank Tavarez MD May 15, 2017 13:14
[2017-05-15 09:54] LABS: AUTOMATED NEUTROPHIL # 10.3 TH/MM3 (1.8-7.7); BASOPHIL # 0.1 TH/MM3 (0-0.2); BASOPHIL % 0.5 % (0.0-2.0); EOSINOPHIL # 0.2 TH/MM3 (0-0.4); EOSINOPHIL % 1.7 % (0.0-4.0); HEMATOCRIT 31.4 % (39.0-51.0); HEMO FLAGS DIFF FINAL; LYMPH % 10.3 % (9.0-44.0); LYMPHOCYTE # 1.3 TH/MM3 (1.0-4.8); MEAN CELL VOLUME 95.7 FL (80.0-100.0); MEAN CORPUSCULAR HEMOGLOBIN 30.5 PG (27.0-34.0); MEAN CORPUSCULAR HGB CONC 31.9 % (32.0-36.0); MONO % 4.5 % (0.0-8.0); PLATELET COUNT 243 TH/MM3 (150-450); RED BLOOD COUNT 3.28 MIL/MM3 (4.50-5.90); RED CELL DISTRIBUTION WIDTH 19.2 % (11.6-17.2); WHITE BLOOD COUNT 12.4 TH/MM3 (4.0-11.0)
[2017-05-15 10:15] LABS: ANION GAP 9 MEQ/L (5-15); AST (GOT) 51 U/L (15-37); BICARBONATE 22.5 MEQ/L (21.0-32.0); BLOOD UREA NITROGEN 15 MG/DL (7-18); CHLORIDE 111 MEQ/L (98-107); GLOMERULAR FILTRATION RATE 142 ML/MIN (>89); POTASSIUM 3.5 MEQ/L (3.5-5.1); SODIUM (NA) 142 MEQ/L (136-145)
[2017-05-15 10:16] LABS: ALT (GPT) 39 U/L (12-78)
[2017-05-15 10:19] LABS: ALKALINE PHOSPHATASE 88 U/L (45-117); TOTAL BILIRUBIN ADULT 1.7 MG/DL (0.2-1.0)
[2017-05-15] MEDS: LACTULOSE SYRUP 20 GM/30 ML CUP PO SCH (10:23)
[2017-05-15] MEDS: ACETAMINOPHEN/HYDROcodone 325 MG/5 MG TAB PO PRN ×2 (10:24→21:59)
[2017-05-15] MEDS: PANTOPRAZOLE SOD 40 MG DELAYED RELEASE TAB PO SCH ×2 (10:24→21:58)
[2017-05-15] MEDS: busPIRone HCL 10 MG TAB PO SCH ×3 (10:24→17:34)
[2017-05-15] MEDS: SPIRONOLACTONE 100 MG TAB PO SCH (10:24)
[2017-05-15] MEDS: DOCUSATE SODIUM 50 MG/SENNA 8.6 MG TAB PO SCH ×2 (10:24→21:59)
[2017-05-15] MEDS: RIFAXIMIN 550 MG TAB PO SCH ×2 (10:24→21:59)
[2017-05-15] MEDS: PREGABALIN 100 MG CAP PO SCH ×3 (10:24→17:34)
[2017-05-15] MEDS: ALBUMIN HUMAN 25% 25 GM/100 ML BAGP IV SCH ×2 (10:25→21:58)
[2017-05-15] MEDS: TAMSULOSIN HCL 0.4 MG CAP PO SCH (10:25)
[2017-05-15] MEDS: SODIUM CHLORIDE 0.9% FLUSH 10 ML FLUSH IV FLUSH SCH ×2 (10:25→22:00)
--- NOTE | 2017-05-15 10:26 | HHI.GIFU ---
Subjective Remarks Resting in bed. Awake, oriented to year/person, but speech slightly gargled and he is a poor historian/somewhat inappropriate. No bleeding. Worsening abdominal distention. (Yumiko Vale) Objective Vitals I&O Vital Signs Date Time Temp Pulse Resp B/P (MAP) Pulse Ox O2 Delivery O2 Flow Rate FiO2 05/15/17 08:44 93 Nasal Cannula 4.00 05/15/17 08:00 98 Room Air 05/15/17 06:00 70 05/15/17 04:00 98.7 77 24 148/84 (105) 92 05/15/17 04:00 65 05/15/17 03:00 68 20 152/73 (99) 94 05/15/17 02:00 66 05/15/17 02:00 66 21 146/84 (104) 93 05/15/17 01:00 67 22 146/70 (95) 94 05/15/17 00:00 98.8 64 21 140/72 (94) 92 05/15/17 00:00 64 05/14/17 23:00 62 19 137/74 (95) 92 05/14/17 22:00 66 05/14/17 22:00 67 21 128/71 (90) 94 05/14/17 21:00 70 20 129/71 (90) 96 05/14/17 20:54 94 Nasal Cannula 2.00 05/14/17 20:00 98.9 75 23 131/68 (89) 94 05/14/17 20:00 75 05/14/17 19:00 94 Nasal Cannula 4.00 I/O 05/14/17 05/14/17 05/14/17 05/15/17 05/15/17 05/15/17 06:59 14:59 22:59 06:59 14:59 22:59 Intake Total 340 ml 260 ml 680 ml 240 ml Output Total 1100 ml 850 ml 900 ml Balance -760 ml 260 ml -170 ml -660 ml Intake Oral 240 ml 480 ml 140 ml IV Total 100 ml 260 ml 200 ml 100 ml Output Urine Total 700 ml 450 ml 400 ml Stool Total 400 ml 400 ml 500 ml Bladder Scan Volume Amount 450 ml Laboratory Laboratory Tests Test 05/15/17 08:55 White Blood Count 12.4 Red Blood Count 3.28 Hemoglobin 10.0 Hematocrit 31.4 Mean Corpuscular Volume 95.7 Mean Corpuscular Hemoglobin 30.5 Mean Corpuscular Hemoglobin Concent 31.9 Red Cell Distribution Width 19.2 Platelet Count 243 Mean Platelet Volume 8.6 Neutrophils (%) (Auto) 83.0 Lymphocytes (%) (Auto) 10.3 Monocytes (%) (Auto) 4.5 Eosinophils (%) (Auto) 1.7 Basophils (%) (Auto) 0.5 Neutrophils # (Auto) 10.3 Lymphocytes # (Auto) 1.3 Monocytes # (Auto) 0.6 Eosinophils # (Auto) 0.2 Basophils # (Auto) 0.1 CBC Comment DIFF FINAL Differential Comment Imaging Last Impressions Abdomen Ultrasound 05/15/17 0000 Signed Impressions: Service Date/Time: Monday, May 15, 2017 08:05 - CONCLUSION: Limited abdominal ultrasound with the patient being combative during the examination. The liver is diffusely abnormal with coarsening of echotexture and a nodular liver surface likely from cirrhosis. There is moderate ascites seen around the liver. Raúl Garay MD Chest X-Ray 05/13/17 0000 Signed Impressions: Service Date/Time: April 19:01 - CONCLUSION: 1. Interim extubation. 2. Left perihilar/infrahilar consolidation. 3. Patchy mild bilateral airspace opacities. 4. Small left pleural effusion. Raúl Greene MD Physical Exam HEENT: Normocephalic; atraumatic; + jaundice. CHEST: Resp. even/unlabored, diminished CARDIAC: RRR ABDOMEN: Soft, distention with large amount ascites, hepatosplenomegaly; bowel sounds are present EXTREMITIES:BLE edema. SKIN: + jaundice. SUPERINTENDENT AUTOMOTIVE: Lethargic, oriented to self, year, place. But inappropriate at times and poor historian. (Yumiko Vale [facility]) Assessment and Plan Plan ASSESSMENT: - Upper GIB secondary to esophageal varices. EGD (05/05/17)----> There was a nipple sign on a large distal varix and that seems to be where the bleeding was from. 4 bands applied on 3 varices. Bleeding seemed controlled. There was a great deal of blood in the upper stomach. The stomach and duodenum could not be examined further, cannot rule out gastric varices. He was treated with octreotide and protonix drips and IR was consulted for evaluation for TIPS procedure. However, he was deemed not be a candidate at this facility secondary to history portal vein occlusion in the liver hilum with reconstitution of parenchymal portal vein branches on CT scan 09/17/16. He was then transferred to [facility] for possible TIPS procedure. While at [facility], he was found to likely have hepatocellular carcinoma on CT. There were questionable multifocal arterial lesions likely consistent with this diagnosis. MR liver was to be performed but no information sent. TIPS is contraindicated with portal vein thrombosis/cancer therefore patient was transferred back to this facility. PPI, Inderal. Not actively bleeding. - Anemia, acute blood loss. S/P recent EGD with band ligation as above. HH 9.9 /31.0. - Coagulopathy. Stable. 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 No ETOH x 6 years. On tx with Epclusa /ribavirin as outpatient. T. Bili 2.0, AST 49, ALT 38, ALk Phosph. Per [facility],suspected HCC- need records. Get AFP. ? oncology evaluation. Not a transplant candidate - Suspected hepatocellular carcinoma, per [facility]. Per imaging at [facility] (CT scan, MRI) CT Abdomen liver three phase with ivcon (05/09/17)---> cirrhotic liver with thrombosis of the portal vein. Expansion and arterial enhancement of the intrahepatic and extrahepatic portal venous system with apparent washout on delyaed imaging concerning for tumor thrombus from diffuse HCC. Multifocal arterial enhancing lesions, concerning for diffuse HCC. Equivocal arterially enhancing lesions may represent dysplastic nodules. Furthermore, given the discordant findings of flow within the portal vein on the patient's ultrasound. Recommend further evaluation with multiphase liver protocol MRI. Small volume ascites and splenomegaly consistent with portal hypertension. Multifocal pneumonia with small bilateral pleural effusions. I reviewed the records from [facility], but did not see where an MRI was performed. AFP pending. Oncology following- to d/w radiology possible MRI vs. other diagnostic imaging to evaluate for HCC. - Portal vein thrombosis. Seen on above CT at [facility]. - Hepatitis C, Genotype 3a. On Epclusa as outpatient. - Hepatic encephalopathy. Lethargic, oriented to person, place, president, but inappropriate. Lactulose, Xifaxan - Ascites. Pt with significant abdominal distention, US (05/15/17)---> Limited US with the patient being combative during the examination. The liver is diffusely abnormal with coarsening of echotexture and a nodular liver surface, likely from cirrhosis. There is moderate ascites seen around the liver. Aldactone. Cefepime. - Respiratory failure, PNA, Pleural effusion.Cefepime - HTN, Hyperlipidemia, BPH, DM, Neuropathy, Sacral wound. PLAN: - Low sodium diet - Add Lasix - Cont. Albumin - Cont. Protonix - Cont. Propranolol - Cont. Spironolactone - Cont. Lactulose - Cont. Xifaxan - Await AFP level - Monitor CBC, PT/INR, CMP, Ammonia - Oncology following, to d/w radiology possible evaluation with MRI vs. other imaging to evaluate for HCC - Supportive care - Further recommendations to follow based on results of above - Will consider US guided paracentesis on Wednesday. - Pt seen and examined by Dr. Maciel and myself and this note is written on his behalf (Yumiko Vale) Physician Comments Seen and examined with PLANT OPERATOR HELPER, abdomen distended and tender. solano in progress fro liver disease and possible liver cancer. (Rhonda Maciel MD) Yumiko Vale May 15, 2017 10:26 Rhonda Maciel MD May 15, 2017 11:29
[2017-05-15] MEDS ORDERED: FUROSEMIDE 40 MG TAB PO SCH (10:30)
[2017-05-15] MEDS: PROPRANOLOL HCL 10 MG TAB PO SCH ×2 (11:30→21:59)
[2017-05-15] MEDS: FUROSEMIDE 40 MG/4 ML VIAL IV PUSH SCH (11:30)
[2017-05-15] MEDS: MORPHINE SULFATE 4 MG/ML INJ IV PUSH PRN ×2 (13:37→17:48)
[2017-05-15 17:09] LABS: BLOOD, URINE TRACE (NEG); COMMENT (UR) CULT NOT INDICATED; CULTURE IF INDICATED CULT NOT INDICATED; GLUCOSE,URINE NEG (NEG); HYALINE CAST, URINE 1 /lpf (RARE); KETONE, URINE NEG (NEG); MUCUS URINE FEW /lpf (OCC); NITRITE,URINE NEG (NEG); PH, URINE 5.5 (5.0-8.5); URINE COLOR LIGHT-YELLOW (YELLW/STRAW)
--- NOTE | 2017-05-15 17:17 | HHI.PR ---
Subjective Remarks Discussed case with nurse, reports that family is leaning towards hospice care, palliative care consult has been placed. Nursing reports that patient did require restraints this morning, refused a few of his medications analysis excepting his by mouth medications again. Patient himself speaks some nonsensical words. Objective Vital Signs Date Time Temp Pulse Resp B/P (MAP) Pulse Ox O2 Delivery O2 Flow Rate FiO2 05/15/17 14:00 78 05/15/17 12:00 98.7 69 24 141/74 (96) 94 05/15/17 12:00 69 05/15/17 10:00 80 05/15/17 08:44 93 Nasal Cannula 4.00 05/15/17 08:00 98.6 75 29 165/80 (108) 95 05/15/17 08:00 98 Room Air 05/15/17 08:00 75 05/15/17 06:00 70 05/15/17 04:00 98.7 77 24 148/84 (105) 92 05/15/17 04:00 65 05/15/17 03:00 68 20 152/73 (99) 94 05/15/17 02:00 66 05/15/17 02:00 66 21 146/84 (104) 93 05/15/17 01:00 67 22 146/70 (95) 94 05/15/17 00:00 98.8 64 21 140/72 (94) 92 05/15/17 00:00 64 05/14/17 23:00 62 19 137/74 (95) 92 05/14/17 22:00 66 05/14/17 22:00 67 21 128/71 (90) 94 05/14/17 21:00 70 20 129/71 (90) 96 05/14/17 20:54 94 Nasal Cannula 2.00 05/14/17 20:00 98.9 75 23 131/68 (89) 94 05/14/17 20:00 75 05/14/17 19:00 94 Nasal Cannula 4.00 I/O 05/14/17 05/14/17 05/14/17 05/15/17 05/15/17 05/15/17 07:00 15:00 23:00 07:00 15:00 23:00 Intake Total 340 ml 260 ml 680 ml 240 ml Output Total 1100 ml 850 ml 900 ml Balance -760 ml 260 ml -170 ml -660 ml Intake Oral 240 ml 480 ml 140 ml IV Total 100 ml 260 ml 200 ml 100 ml Output Urine Total 700 ml 450 ml 400 ml Stool Total 400 ml 400 ml 500 ml Bladder Scan Volume Amount 450 ml Result Diagram: 05/15/17 0855 05/15/17 0855 Imaging Last 24 hours Impressions Abdomen Ultrasound 05/15/17 0000 Signed Impressions: Service Date/Time: Monday, May 15, 2017 08:05 - CONCLUSION: Limited abdominal ultrasound with the patient being combative during the examination. The liver is diffusely abnormal with coarsening of echotexture and a nodular liver surface likely from cirrhosis. There is moderate ascites seen around the liver. Raúl Garay MD Objective Remarks Lying in bed, no acute distress, awake, not oriented Abdomen is taut, bowel sounds are positive, abdomen is also moderately distended , no significant lower extremity edema A/P Assessment and Plan 56 year old male. Originally admitted to [facility] on 05/04, had developed massive hematemesis and hemorrhagic shock, necessitating intubation and multiple blood transfusions. He was deemed not be a candidate for TIPs at this facility secondary to history portal vein occlusion in the liver hilum with reconstitution of parenchymal portal vein branches on CT scan 09/17/16. He was then transferred to [facility] for possible TIPS procedure. While at [facility], he was found to likely have hepatocellular carcinoma on CT and sent back here since TIPS was contraindicated w/ possible portal vein thrombosis/ cancer. Ascites - likely from hepatic insufficiency, noted on US, will touch base with radiology to see if this is enough to drain Currently he is receiving cefepime On Sandostatin, pantoprazole Hepatocellular carcinoma on CT - palliative care has been consulted. oncology following. Depression History of alcohol dependence History of hepatic encephalopathy Diabetic neuropathy Chronic pain syndrome hydrocodone/acetaminophen at home for pain management Morphine sulfate for pain management. Continue buspirone 10 mg by mouth 3 times a day/home medication Continue Pregabalin 300 mg by mouth 3 times a day/home medication for diabetic neuropathy. Continue propranolol 10 mg by mouth twice a day. Continue Aldactone 100 mg by mouth daily Incentive spirometry while awake Albuterol/Atrovent every 4 hours with albuterol aerosols every 2 hours as needed Dyspnea Upper GI bleed from grade 4 esophageal varices status post banding 3 05/05 Hepatitis C IIIa scheduled for ribavirin 200 mg and sofosbuvir/velpatasvir therapy 400 mg/100 mg History of portal vein thrombosis Likely hepatocellular carcinoma Elevated ammonia Liver cirrhosis from EtOH and hepatitis C Abdominal ascites Continue pantoprazole 40 mg by mouth twice a day Continue Xifaxan 550 twice a day and lactulose 30 cc daily. Ammonia level 27 Not a candidate for TIPS secondary to portal vein thrombosis and multifocal arterially enhancing lesions concerning for diffuse HCC. GI eval Speech eval, diet per speech BPH Continue tamsulosin 0.8 milligrams by mouth daily Diabetes mellitus with neuropathy Sliding scale insulin with Accu-Cheks to maintain euglycemia/low regimen with meals/at bedtime with Novulin R History of HCAP ESBL+ Patient previously on ceftriaxone for upper GI bleed. Transition to Piperacillin tazobactam. To continue cefepime Check sputum cx Unstable sacral decubitus ulcer Wound care evaluate and treat - DVT - SCD/pharmacological prophylaxis contra indicated with GI bleed Edison Hernandez MD May 15, 2017 17:17
[2017-05-16] VITALS (13 sets, daily range): BP systolic 105–178; BP diastolic 60–84; PULSE 57–96; RESP 14–29; TEMP 97.5–98.9; O2SAT 91–98
[2017-05-16] MEDS: RESP: ALBUTEROL 2.5 MG/IPRATROPIUM 0.5 MG NEB (SCH) INH ×6 (00:21→20:26)
[2017-05-16] MEDS: CEFEPIME INJ 2,000 MG in SODIUM CHLORIDE 0.9% INJ 100 ML IV SCH ×3 (03:35→20:00)
[2017-05-16] MEDS: CHLORHEXIDINE GLUCONATE 2 % 1 PACK (2 CLOTHS) TOP SCH (03:36)
[2017-05-16] MEDS: MORPHINE SULFATE 4 MG/ML INJ IV PUSH PRN ×2 (03:36→22:54)
[2017-05-16 05:11] LABS: INTERNATIONAL NORMALIZED RATIO 1.2 RATIO; PROTHROMBIN TIME - PATIENT 13.6 SEC (9.8-11.6)
[2017-05-16 05:16] LABS: BASOPHIL # 0.1 TH/MM3 (0-0.2); EOSINOPHIL # 0.1 TH/MM3 (0-0.4); EOSINOPHIL % 1.5 % (0.0-4.0); HEMATOCRIT 27.5 % (39.0-51.0); HEMO FLAGS DIFF FINAL; LYMPH % 16.5 % (9.0-44.0); LYMPHOCYTE # 0.9 TH/MM3 (1.0-4.8); MEAN CELL VOLUME 97.7 FL (80.0-100.0); MEAN CORPUSCULAR HEMOGLOBIN 30.6 PG (27.0-34.0); MEAN CORPUSCULAR HGB CONC 31.4 % (32.0-36.0); PLATELET COUNT 152 TH/MM3 (150-450); RED BLOOD COUNT 2.81 MIL/MM3 (4.50-5.90); RED CELL DISTRIBUTION WIDTH 19.5 % (11.6-17.2); WHITE BLOOD COUNT 5.2 TH/MM3 (4.0-11.0)
[2017-05-16 05:19] LABS: ALT (GPT) 35 U/L (12-78); ANION GAP 8 MEQ/L (5-15); AST (GOT) 48 U/L (15-37); BICARBONATE 23.9 MEQ/L (21.0-32.0); BLOOD UREA NITROGEN 13 MG/DL (7-18); CHLORIDE 111 MEQ/L (98-107); GLOMERULAR FILTRATION RATE 134 ML/MIN (>89); POTASSIUM 3.6 MEQ/L (3.5-5.1); SODIUM (NA) 143 MEQ/L (136-145)
[2017-05-16 05:22] LABS: ALKALINE PHOSPHATASE 74 U/L (45-117); TOTAL BILIRUBIN ADULT 1.7 MG/DL (0.2-1.0)
[2017-05-16] MEDS: INSULIN NovoLIN REGULAR SUPPLEMENTAL SCALE SQ SCH ×4 (08:00→21:00)
[2017-05-16] MEDS: RIFAXIMIN 550 MG TAB PO SCH ×2 (08:57→22:51)
[2017-05-16] MEDS: TAMSULOSIN HCL 0.4 MG CAP PO SCH (08:58)
[2017-05-16] MEDS: busPIRone HCL 10 MG TAB PO SCH ×3 (08:58→17:38)
[2017-05-16] MEDS: PROPRANOLOL HCL 10 MG TAB PO SCH ×2 (08:58→22:50)
[2017-05-16] MEDS: SPIRONOLACTONE 100 MG TAB PO SCH (08:58)
[2017-05-16] MEDS: PANTOPRAZOLE SOD 40 MG DELAYED RELEASE TAB PO SCH ×2 (08:58→22:50)
[2017-05-16] MEDS: ARTIFICIAL TEARS OPTH SOLN 15 ML BTL EACH EYE SCH ×3 (08:59→17:40)
[2017-05-16] MEDS: FUROSEMIDE 40 MG/4 ML VIAL IV PUSH SCH (08:59)
[2017-05-16] MEDS: PREGABALIN 100 MG CAP PO SCH ×3 (08:59→17:38)
[2017-05-16] MEDS: ALBUMIN HUMAN 25% 25 GM/100 ML BAGP IV SCH ×2 (08:59→22:50)
[2017-05-16] MEDS: LACTULOSE SYRUP 20 GM/30 ML CUP PO SCH (08:59)
[2017-05-16] MEDS: DOCUSATE SODIUM 50 MG/SENNA 8.6 MG TAB PO SCH ×2 (08:59→22:51)
[2017-05-16] MEDS: SODIUM CHLORIDE 0.9% FLUSH 10 ML FLUSH IV FLUSH SCH ×2 (09:00→22:55)
--- NOTE | 2017-05-16 09:15 | PD.ONC.PN ---
Subjective Subjective Remarks Afebrile overnight. Patient resting in bed in nad. Somewhat more coherent today. Continues to have abdominal distension, some back pain. Objective Data Date Time Temp Pulse Resp B/P (MAP) Pulse Ox O2 Delivery O2 Flow Rate FiO2 05/16/17 06:00 65 05/16/17 04:00 69 05/16/17 04:00 97.9 95 18 166/79 (108) 95 05/16/17 02:00 62 05/16/17 00:00 57 05/16/17 00:00 98.8 58 14 105/60 (75) 96 05/15/17 22:00 67 05/15/17 21:01 96 21 05/15/17 20:00 Room Air 05/15/17 20:00 75 05/15/17 20:00 98.7 83 17 162/88 (112) 96 05/15/17 18:00 89 05/15/17 16:00 89 05/15/17 16:00 98.9 71 18 131/70 (90) 100 05/15/17 14:00 78 05/15/17 12:00 98.7 69 24 141/74 (96) 94 05/15/17 12:00 69 05/15/17 10:00 80 05/16/17 05/16/17 05/16/17 07:00 15:00 23:00 Intake Total 463 ml Output Total 550 ml Balance -87 ml Result Diagram: 05/16/17 0345 05/16/17 0345 Laboratory Results Laboratory Tests Test 05/15/17 13:35 05/16/17 03:45 Urine Color LIGHT-YELLOW Urine Turbidity CLEAR Urine pH 5.5 Urine Specific [place] 1.007 Urine Protein NEG mg/dL Urine Glucose (UA) NEG mg/dL Urine Ketones NEG mg/dL Urine Occult Blood TRACE Urine Nitrite NEG Urine Bilirubin NEG Urine Urobilinogen LESS THAN 2.0 MG/DL Urine Leukocyte Esterase NEG Urine RBC 2 /hpf Urine WBC LESS THAN 1 /hpf Urine Hyaline Casts 1 /lpf Urine Mucus FEW /lpf Microscopic Urinalysis Comment CULT NOT INDICATED White Blood Count 5.2 TH/MM3 Red Blood Count 2.81 MIL/MM3 Hemoglobin 8.6 GM/DL Hematocrit 27.5 % Mean Corpuscular Volume 97.7 FL Mean Corpuscular Hemoglobin 30.6 PG Mean Corpuscular Hemoglobin Concent 31.4 % Red Cell Distribution Width 19.5 % Platelet Count 152 TH/MM3 Mean Platelet Volume 8.7 FL Neutrophils (%) (Auto) 76.0 % Lymphocytes (%) (Auto) 16.5 % Monocytes (%) (Auto) 5.0 % Eosinophils (%) (Auto) 1.5 % Basophils (%) (Auto) 1.0 % Neutrophils # (Auto) 4.0 TH/MM3 Lymphocytes # (Auto) 0.9 TH/MM3 Monocytes # (Auto) 0.3 TH/MM3 Eosinophils # (Auto) 0.1 TH/MM3 Basophils # (Auto) 0.1 TH/MM3 CBC Comment DIFF FINAL Differential Comment Prothrombin Time 13.6 SEC Prothromb Time International Ratio 1.2 RATIO Blood Urea Nitrogen 13 MG/DL Creatinine 0.62 MG/DL Random Glucose 147 MG/DL Total Protein 6.9 GM/DL Albumin 2.7 GM/DL Calcium Level 8.3 MG/DL Alkaline Phosphatase 74 U/L Aspartate Amino Transf (AST/SGOT) 48 U/L Alanine Aminotransferase (ALT/SGPT) 35 U/L Total Bilirubin 1.7 MG/DL Sodium Level 143 MEQ/L Potassium Level 3.6 MEQ/L Chloride Level 111 MEQ/L Carbon Dioxide Level 23.9 MEQ/L Anion Gap 8 MEQ/L Estimat Glomerular Filtration Rate 134 ML/MIN Administered Medications Medications (Trade) Dose Ordered Sig/Jez Route PRN Reason Start Time Stop Time Status Last Admin Dose Admin Buspirone HCl (Buspar) 10 mg TID PO 05/14/17 09:00 05/16/17 08:58 Pantoprazole Sodium (Protonix) 40 mg BID PO 05/13/17 21:00 05/16/17 08:58 Propranolol HCl (Inderal) 10 mg Q12HR PO 05/13/17 21:00 05/16/17 08:58 Rifaximin (Xifaxan) 550 mg BID PO 05/13/17 21:00 05/16/17 08:57 Spironolactone (Aldactone) 100 mg DAILY PO 05/14/17 09:00 05/16/17 08:58 Tamsulosin HCl (Flomax) 0.8 mg DAILY PO 05/14/17 09:00 05/16/17 08:58 Pregabalin (Lyrica) 300 mg TID PO 05/14/17 09:00 05/16/17 08:59 Sodium Chloride (NS Flush) 2 ml UNSCH PRN IV FLUSH FLUSH AFTER USING IV ACCESS 05/13/17 18:30 05/15/17 10:25 Sodium Chloride (NS Flush) 2 ml BID IV FLUSH 05/13/17 21:00 05/16/17 09:00 Acetaminophen/ Hydrocodone Bitart ([place] 5-325 Mg) 1 tab Q4H PRN PO PAIN SCALE 1 TO 5 05/13/17 18:30 05/15/17 21:59 Morphine Sulfate (Morphine Inj) 2 mg Q2H PRN IV PUSH PAIN SCALE 6 TO 10 05/13/17 18:30 05/16/17 03:36 Artificial Tears (Tears Naturale Opth Soln) 1 drop TID EACH EYE 05/14/17 09:00 05/16/17 08:59 Albuterol/ Ipratropium (Duoneb Neb) 1 ampule Q4HR NEB INH 05/13/17 20:00 05/16/17 04:39 Miscellaneous Information 1 Q361D XX 05/13/17 18:30 05/13/17 19:00 Chlorhexidine Gluconate (Chlorhexidine 2% Cloth) 3 pack Taper DAILY@04 TOP 05/14/17 04:00 05/10/18 03:59 05/14/17 04:00 Senna/Docusate Sodium (Sarahi-Colace) 1 tab BID PO 05/13/17 21:00 05/16/17 08:59 Insulin Human Regular (NovoLIN R SUPPLEMENTAL SCALE) 1 ACHS SLIDING SCALE SQ 05/13/17 21:00 05/15/17 21:00 Lactulose (Lactulose Liq) 30 ml DAILY PO 05/14/17 09:00 05/16/17 08:59 Cefepime HCl 2000 mg/Sodium Chloride 100 ml @ 200 mls/hr Q8H IV 05/13/17 20:00 05/16/17 03:35 Potassium Phosphate 30 mmol/ Sodium Chloride 260 ml @ 42 mls/hr UNSCH PRN IV SEE LABEL COMMENTS 05/13/17 18:30 05/14/17 02:00 Albumin Human (Albumin 25% Inj) 25 gm Q12H IV 05/14/17 21:00 05/16/17 08:59 Furosemide (Lasix Inj) 40 mg DAILY IV PUSH 05/15/17 11:15 05/16/17 08:59 Objective Remarks GENERAL: chronically ill appearing male supine in bed SKIN: Warm and dry. HEAD: Normocephalic. EYES: No injection or drainage. NECK: Supple, trachea midline. CARDIOVASCULAR: Regular rate and rhythm RESPIRATORY: Breath sounds equal bilaterally. No accessory muscle use. GASTROINTESTINAL: Abdomen distended. no tenderness to palpation EXTREMITIES: No cyanosis. +LE edema. NEUROLOGICAL: awake, more alert than yesterday. normal speech. follows commands. Assessment/Plan Problem List: (1) Hepatocellular carcinoma ICD Codes: C22.0 - Liver cell carcinoma Plan: --Questionable hepatocellular carcinoma. --While he was at [facility] reportedly the CT showed lesion concerning for multifocal hepatocellular carcinoma. --His last alpha-fetoprotein in August was only 4.1. --will need MRI for further differentiation -- If he indeed had hepatocellular carcinoma he is not a candidate for any systemic therapy or local therapy due to his poor performance status. (2) UGIB (upper gastrointestinal bleed) ICD Codes: K92.2 - Gastrointestinal hemorrhage, unspecified Status: Acute Plan: --Recurrent GI bleed due to esophageal varices. --had multiple banding. --still has melanotic stool. GI is following. Assessment 56y/o male with hepatitis C and cirrhosis. Oncology consulted to render opinion regarding patient with possible hepatocellular carcinoma. h/o Hepatitis C, cirrhosis. Portal hypertension. Portal vein thrombosis.Alcohol abuse.Diabetes mellitus, hypertension. Sacral decubitus ulcer.Recurrent GI bleed. Esophageal varices.Hyperlipidemia.Osteoarthritis.Neuropathy. Encephalopathy. Multiple paracenteses, colonoscopy and upper endoscopy. Esophageal varices banding. Appendectomy. Liver biopsy. Plan 1. await palliative care consult Wednesday 2. monitor CBC 3. supportive care Attending Statement The exam, history, and the medical decision-making described in the above note were completed with the assistance of the mid-level provider. I reviewed and agree with the findings presented. I attest that I had a [id number] encounter with the patient on the same day, and personally performed and documented my assessment and findings in the medical record. Still confused. Abdomen is distended. Stool is not black. Poor prognosis, palliative care meds consulted. Hold MRI at this time as pt likely not able to tolerate and it is not going to changeover operator at this time. Charley Solomon May 16, 2017 09:15 Frank Tavarez MD May 16, 2017 13:19
[2017-05-16] MEDS: ACETAMINOPHEN/HYDROcodone 325 MG/5 MG TAB PO PRN (14:10)
--- NOTE | 2017-05-16 15:48 | HHI.PR ---
Subjective Remarks No acute calls overnight. Patient himself is oriented today. Denies any new symptoms. D/w nursing, pt occasionally needs restraints, other times he's cooperative. Objective Vital Signs Date Time Temp Pulse Resp B/P (MAP) Pulse Ox O2 Delivery O2 Flow Rate FiO2 05/16/17 14:00 67 05/16/17 12:00 67 05/16/17 12:00 97.5 74 18 150/76 (100) 97 05/16/17 09:27 96 05/16/17 08:00 98 Room Air 05/16/17 08:00 65 05/16/17 08:00 98.0 65 18 178/84 (115) 98 05/16/17 06:00 65 05/16/17 04:00 69 05/16/17 04:00 97.9 95 18 166/79 (108) 95 05/16/17 02:00 62 05/16/17 00:00 57 05/16/17 00:00 98.8 58 14 105/60 (75) 96 05/15/17 22:00 67 05/15/17 21:01 96 21 05/15/17 20:00 Room Air 05/15/17 20:00 75 05/15/17 20:00 98.7 83 17 162/88 (112) 96 05/15/17 18:00 89 05/15/17 16:00 89 05/15/17 16:00 98.9 71 18 131/70 (90) 100 I/O 05/15/17 05/15/17 05/15/17 05/16/17 05/16/17 05/16/17 07:00 15:00 23:00 07:00 15:00 23:00 Intake Total 240 ml 357 ml 463 ml Output Total 900 ml 2250 ml 550 ml Balance -660 ml -1893 ml -87 ml Intake Oral 140 ml 240 ml 240 ml IV Total 100 ml 117 ml 223 ml Output Urine Total 400 ml 2150 ml 500 ml Stool Total 500 ml 100 ml 50 ml Result Diagram: 05/16/17 0345 05/16/17 0345 Objective Remarks Lying in bed, no acute distress, awake, not oriented Abdomen is taut, bowel sounds are positive, abdomen is also moderately distended , no significant lower extremity edema A/P Assessment and Plan 56 year old male. Originally admitted to [place] on 05/04, had developed massive hematemesis and hemorrhagic shock, necessitating intubation and multiple blood transfusions. He was deemed not be a candidate for TIPs at this facility secondary to history portal vein occlusion in the liver hilum with reconstitution of parenchymal portal vein branches on CT scan 09/17/16. He was then transferred to [facility] for possible TIPS procedure. While at [facility], he was found hepatocellular carcinoma on CT and sent back here since TIPS was contraindicated w/ possible portal vein thrombosis/cancer. Currently awaiting palliative consult (wednesday). Upper GI bleed from grade 4 esophageal varices status post banding 3 05/05 Hepatitis C IIIa scheduled for ribavirin 200 mg and sofosbuvir/velpatasvir therapy 400 mg/100 mg History of portal vein thrombosis Likely hepatocellular carcinoma Elevated ammonia Liver cirrhosis from EtOH and hepatitis C Abdominal ascites Continue pantoprazole Continue Xifaxan and lactulose . Not a candidate for TIPS secondary to portal vein thrombosis and multifocal arterially enhancing lesions concerning for diffuse HCC. Speech eval, diet per speech Ascites - likely from hepatic insufficiency, noted on US Hepatocellular carcinoma on CT - palliative care has been consulted. oncology following, possible further imaging studies being entertained. Continue propranolol Continue Aldactone GI considering paracentesis tomorrow History of HCAP ESBL+ Patient previously on ceftriaxone for upper GI bleed. On cefepime Check sputum cx - not done, may not be necessary since patient is not coughing, no fever noted over the last 48 hours, we'll obtain pro-calcitonin and discontinue cefepime if within normal limits Depression History of alcohol dependence History of hepatic encephalopathy Diabetic neuropathy Chronic pain syndrome hydrocodone/acetaminophen at home for pain management Morphine sulfate for pain management. Continue buspirone 10 mg by mouth 3 times a day/home medication Continue Pregabalin 300 mg by mouth 3 times a day/home medication for diabetic neuropathy. BPH Continue tamsulosin 0.8 milligrams by mouth daily Diabetes mellitus with neuropathy Sliding scale insulin with Accu-Cheks to maintain euglycemia/low regimen with meals/at bedtime with Novulin R Unstable sacral decubitus ulcer Wound care evaluate and treat Incentive spirometry while awake Albuterol/Atrovent every 4 hours with albuterol aerosols every 2 hours as needed Dyspnea - DVT - SCD/pharmacological prophylaxis contra indicated with GI bleed Edison Hernandez MD May 16, 2017 15:48
[2017-05-16] MEDS ORDERED: TAMSULOSIN HCL 0.4 MG CAP PO SCH (21:00)
[2017-05-16] MEDS ORDERED: SACUBITRIL/VALSARTAN 24 MG-26 MG TAB PO SCH (21:00)
[2017-05-17] VITALS (17 sets, daily range): BP systolic 120–177; BP diastolic 72–79; PULSE 63–84; RESP 12–18; TEMP 98.3–99.6; O2SAT 90–100
[2017-05-17] MEDS: RESP: ALBUTEROL 2.5 MG/IPRATROPIUM 0.5 MG NEB (SCH) INH ×4 (00:30→11:35)
[2017-05-17] MEDS: CHLORHEXIDINE GLUCONATE 2 % 1 PACK (2 CLOTHS) TOP SCH (04:00)
[2017-05-17] MEDS: CEFEPIME INJ 2,000 MG in SODIUM CHLORIDE 0.9% INJ 100 ML IV SCH ×3 (05:40→21:59)
[2017-05-17] MEDS: INSULIN NovoLIN REGULAR SUPPLEMENTAL SCALE SQ SCH ×4 (05:44→21:00)
--- NOTE | 2017-05-17 07:52 | PD.ONC.PN ---
Subjective Subjective Remarks More alert. Denies abdominal pain. No melena noted. Objective Data Date Time Temp Pulse Resp B/P (MAP) Pulse Ox O2 Delivery O2 Flow Rate FiO2 05/17/17 06:00 64 05/17/17 06:00 91 Room Air 05/17/17 04:00 98.9 67 13 146/73 (97) 90 05/17/17 04:00 67 05/17/17 02:00 84 05/17/17 00:00 69 05/17/17 00:00 98.7 69 12 120/76 (91) 91 05/16/17 22:00 70 05/16/17 20:24 94 21 05/16/17 20:00 98.9 96 29 159/78 (105) 91 05/16/17 20:00 95 05/16/17 19:00 91 Room Air 05/16/17 18:00 86 05/16/17 16:00 76 05/16/17 16:00 98.1 72 18 165/75 (105) 96 05/16/17 14:00 67 05/16/17 12:00 67 05/16/17 12:00 97.5 74 18 150/76 (100) 97 05/16/17 09:27 96 05/16/17 08:00 98 Room Air 05/16/17 08:00 65 05/16/17 08:00 98.0 65 18 178/84 (115) 98 05/17/17 05/17/17 05/17/17 07:00 15:00 23:00 Intake Total 122 ml Output Total 500 ml Balance -378 ml Result Diagram: 05/16/17 0345 05/16/17 0345 Laboratory Results Laboratory Tests Test 05/16/17 17:13 Procalcitonin 0.11 ng/mL Administered Medications Medications (Trade) Dose Ordered Sig/Jez Route PRN Reason Start Time Stop Time Status Last Admin Dose Admin Buspirone HCl (Buspar) 10 mg TID PO 05/14/17 09:00 05/16/17 17:38 Pantoprazole Sodium (Protonix) 40 mg BID PO 05/13/17 21:00 05/16/17 22:50 Propranolol HCl (Inderal) 10 mg Q12HR PO 05/13/17 21:00 05/16/17 22:50 Rifaximin (Xifaxan) 550 mg BID PO 05/13/17 21:00 05/16/17 22:51 Spironolactone (Aldactone) 100 mg DAILY PO 05/14/17 09:00 05/16/17 08:58 Tamsulosin HCl (Flomax) 0.8 mg DAILY PO 05/14/17 09:00 05/16/17 08:58 Pregabalin (Lyrica) 300 mg TID PO 05/14/17 09:00 05/16/17 17:38 Sodium Chloride (NS Flush) 2 ml UNSCH PRN IV FLUSH FLUSH AFTER USING IV ACCESS 05/13/17 18:30 05/15/17 10:25 Sodium Chloride (NS Flush) 2 ml BID IV FLUSH 05/13/17 21:00 05/16/17 22:55 Acetaminophen/ Hydrocodone Bitart (Dedham 5-325 Mg) 1 tab Q4H PRN PO PAIN SCALE 1 TO 5 05/13/17 18:30 05/16/17 14:10 Morphine Sulfate (Morphine Inj) 2 mg Q2H PRN IV PUSH PAIN SCALE 6 TO 10 05/13/17 18:30 05/16/17 22:54 Artificial Tears (Tears Naturale Opth Soln) 1 drop TID EACH EYE 05/14/17 09:00 05/16/17 13:00 Albuterol/ Ipratropium (Duoneb Neb) 1 ampule Q4HR NEB INH 05/13/17 20:00 05/16/17 20:26 Miscellaneous Information 1 Q361D XX 05/13/17 18:30 05/13/17 19:00 Chlorhexidine Gluconate (Chlorhexidine 2% Cloth) 3 pack Taper DAILY@04 TOP 05/14/17 04:00 05/10/18 03:59 05/14/17 04:00 Senna/Docusate Sodium (Sarahi-Colace) 1 tab BID PO 05/13/17 21:00 05/16/17 22:51 Insulin Human Regular (NovoLIN R SUPPLEMENTAL SCALE) 1 ACHS SLIDING SCALE SQ 05/13/17 21:00 05/17/17 05:44 Lactulose (Lactulose Liq) 30 ml DAILY PO 05/14/17 09:00 05/16/17 08:59 Cefepime HCl 2000 mg/Sodium Chloride 100 ml @ 200 mls/hr Q8H IV 05/13/17 20:00 05/17/17 05:40 Potassium Phosphate 30 mmol/ Sodium Chloride 260 ml @ 42 mls/hr UNSCH PRN IV SEE LABEL COMMENTS 05/13/17 18:30 05/14/17 02:00 Albumin Human (Albumin 25% Inj) 25 gm Q12H IV 05/14/17 21:00 05/16/17 22:50 Furosemide (Lasix Inj) 40 mg DAILY IV PUSH 05/15/17 11:15 05/16/17 08:59 Objective Remarks GENERAL: Well-nourished, well-developed patient. More alert SKIN: Warm and dry. HEAD: Normocephalic. EYES: No scleral icterus. No injection or drainage. NECK: Supple, trachea midline. No JVD or lymphadenopathy. LYMPHATIC: No adenopathy. CARDIOVASCULAR: Regular rate and rhythm without murmurs. RESPIRATORY: Breath sounds equal bilaterally. No accessory muscle use. GASTROINTESTINAL: Abdomen soft, distended, non-tender. EXTREMITIES: No cyanosis, diffuse edema. MUSCULOSKELETAL: Adequate muscle tone. NEUROLOGICAL: No obvious focal deficit. Awake, alert, and oriented to self and place Assessment/Plan Problem List: (1) Hepatocellular carcinoma ICD Codes: C22.0 - Liver cell carcinoma Plan: --Questionable hepatocellular carcinoma. --While he was at [facility] reportedly the CT showed lesion concerning for multifocal hepatocellular carcinoma. --His last alpha-fetoprotein in August was only 4.1, repeat AFp 3.1 --will need MRI for further differentiation -- If he indeed had hepatocellular carcinoma he is not a candidate for any systemic therapy or local therapy due to his poor performance status. (2) UGIB (upper gastrointestinal bleed) ICD Codes: K92.2 - Gastrointestinal hemorrhage, unspecified Status: Acute Plan: --Recurrent GI bleed due to esophageal varices. --had multiple banding. --no more melanotic stool. GI is following. Assessment 56y/o male with hepatitis C and cirrhosis. Oncology consulted to render opinion regarding patient with possible hepatocellular carcinoma. h/o Hepatitis C, cirrhosis. Portal hypertension. Portal vein thrombosis.Alcohol abuse.Diabetes mellitus, hypertension. Sacral decubitus ulcer.Recurrent GI bleed. Esophageal varices.Hyperlipidemia.Osteoarthritis.Neuropathy. Encephalopathy. Multiple paracenteses, colonoscopy and upper endoscopy. Esophageal varices banding. Appendectomy. Liver biopsy. Plan 1. await palliative care consult today 2. monitor CBC 3. supportive care 4. Can do MRI of liver once he is more stable and if he and his family wishes to have further testing. Frank Tavarez MD May 17, 2017 07:52
--- NOTE | 2017-05-17 08:29 | HHI.PR ---
Subjective Remarks clinical support specialist Notes: 56 year old male. Date of admission 05/13/2017. Past medical history includes hepatitis C, EtOH, portal hypertension, liver cirrhosis, diabetes mellitus septic, hypertension and sacral decubitus ulcers. Patient was a 05/04 to [facility] with no like stools. Previous diagnoses grade 4 esophageal varices. He received intravenous pantoprazole, Sandostatin ceftriaxone. On 05/05, patient developed massive hematemesis and hemorrhagic shock for intubated transfusion 5 RBCs. EGD was performed with banding of 3 varices. The stomach and onto unable to be evaluated. I was consulted but not considered to be a candidate due to portal vein thrombosis and was therefore transferred to [facility].At that facility, he arrived 05/08 on pantoprazole, Sandostatin and ceftriaxone. His medications were discontinued 05/10. Antibiotics were transitioned to piperacillin/tazobactam eventually to cefepime. Discontinued date 05/14. He was extubated 05/12. Patient was found to have likely hepatocellular carcinoma on CT. There are questionable multifocal arterial lesions likely consistent with this diagnosis. MR liver was to be performed but no information sent.. TIPS is contraindicated with portal vein thrombosis/cancer therefore patient was transferred back. Currently , patient is currently resting in bed in no acute distress 05/14 Patient is lying in bed in NAD. Afebrile. Hospitalist Notes: 05/17: extension service specialist in charge following for Probable hepatocellular carcinoma, was recommended to get Palliative care consult and awaiting for the patient to be more stable and if family wishes for further testing for MRI of the Liver, seen in his bedroom and discussed with nurse Miss Viera asking for rectal tube for removal but GI specialist [employer] in to see the patient will leave this decision to GI specialist. No other complaint. Objective Vital Signs Date Time Temp Pulse Resp B/P (MAP) Pulse Ox O2 Delivery O2 Flow Rate FiO2 05/17/17 06:00 64 05/17/17 06:00 91 Room Air 05/17/17 04:00 98.9 67 13 146/73 (97) 90 05/17/17 04:00 67 05/17/17 02:00 84 05/17/17 00:00 69 05/17/17 00:00 98.7 69 12 120/76 (91) 91 05/16/17 22:00 70 05/16/17 20:24 94 21 05/16/17 20:00 98.9 96 29 159/78 (105) 91 05/16/17 20:00 95 05/16/17 19:00 91 Room Air 05/16/17 18:00 86 05/16/17 16:00 76 05/16/17 16:00 98.1 72 18 165/75 (105) 96 05/16/17 14:00 67 05/16/17 12:00 67 05/16/17 12:00 97.5 74 18 150/76 (100) 97 05/16/17 09:27 96 I/O 05/16/17 05/16/17 05/16/17 05/17/17 05/17/17 05/17/17 07:00 15:00 23:00 07:00 15:00 23:00 Intake Total 463 ml 1850 ml 122 ml Output Total 550 ml 2850 ml 500 ml Balance -87 ml -1000 ml -378 ml Intake Oral 240 ml 1500 ml IV Total 223 ml 350 ml 122 ml Output Urine Total 500 ml 2800 ml 450 ml Stool Total 50 ml 50 ml 50 ml Result Diagram: 05/16/17 0345 05/16/17 0345 Imaging Last Impressions Abdomen Ultrasound 05/15/17 0000 Signed Impressions: Service Date/Time: Monday, May 15, 2017 08:05 - CONCLUSION: Limited abdominal ultrasound with the patient being combative during the examination. The liver is diffusely abnormal with coarsening of echotexture and a nodular liver surface likely from cirrhosis. There is moderate ascites seen around the liver. Raúl Garay MD Chest X-Ray 05/13/17 0000 Signed Impressions: Service Date/Time: April 19:01 - CONCLUSION: 1. Interim extubation. 2. Left perihilar/infrahilar consolidation. 3. Patchy mild bilateral airspace opacities. 4. Small left pleural effusion. Raúl Greene MD Procedures None Other Results Laboratory Tests Test 05/13/17 17:49 05/13/17 23:48 05/14/17 04:49 05/14/17 05:00 Nasal Screen MRSA (PCR) MRSA NOT DETECTED Fibrinogen 168 mg/dL Blood Urea Nitrogen 16 MG/DL 15 MG/DL Creatinine 0.64 MG/DL 0.57 MG/DL Random Glucose 239 MG/DL 237 MG/DL Total Protein 6.5 GM/DL 6.6 GM/DL Albumin 2.4 GM/DL 2.3 GM/DL Calcium Level 8.1 MG/DL 8.1 MG/DL Phosphorus Level 2.0 MG/DL 2.6 MG/DL Magnesium Level 2.2 MG/DL 2.1 MG/DL Alkaline Phosphatase 84 U/L 81 U/L Aspartate Amino Transf (AST/SGOT) 48 U/L 49 U/L Alanine Aminotransferase (ALT/SGPT) 37 U/L 38 U/L Total Bilirubin 2.0 MG/DL 2.0 MG/DL Direct Bilirubin 1.1 MG/DL Sodium Level 145 MEQ/L 145 MEQ/L Potassium Level 3.4 MEQ/L 3.6 MEQ/L Chloride Level 114 MEQ/L 114 MEQ/L Carbon Dioxide Level 22.6 MEQ/L 23.9 MEQ/L Indirect Bilirubin 0.9 MG/DL Total Creatine Kinase 99 U/L Lipase 212 U/L Activated Partial Thromboplast Time 28.5 SEC Lactic Acid Level 1.5 mmol/L Ammonia 27 MCMOL/L Urine Yeast (Budding) FEW Test 05/15/17 08:55 05/15/17 13:35 05/16/17 03:45 05/16/17 17:13 Tumor Marker Alpha Fetoprotein 3.1 NG/ML Urine Color LIGHT-YELLOW Urine Turbidity CLEAR Urine pH 5.5 Urine Specific [place] 1.007 Urine Protein NEG mg/dL Urine Glucose (UA) NEG mg/dL Urine Ketones NEG mg/dL Urine Occult Blood TRACE Urine Nitrite NEG Urine Bilirubin NEG Urine Urobilinogen LESS THAN 2.0 MG/DL Urine Leukocyte Esterase NEG Urine RBC 2 /hpf Urine WBC LESS THAN 1 /hpf Urine Hyaline Casts 1 /lpf Urine Mucus FEW /lpf Microscopic Urinalysis Comment CULT NOT INDICATED White Blood Count 5.2 TH/MM3 Red Blood Count 2.81 MIL/MM3 Hemoglobin 8.6 GM/DL Hematocrit 27.5 % Mean Corpuscular Volume 97.7 FL Mean Corpuscular Hemoglobin 30.6 PG Mean Corpuscular Hemoglobin Concent 31.4 % Red Cell Distribution Width 19.5 % Platelet Count 152 TH/MM3 Mean Platelet Volume 8.7 FL Neutrophils (%) (Auto) 76.0 % Lymphocytes (%) (Auto) 16.5 % Monocytes (%) (Auto) 5.0 % Eosinophils (%) (Auto) 1.5 % Basophils (%) (Auto) 1.0 % Neutrophils # (Auto) 4.0 TH/MM3 Lymphocytes # (Auto) 0.9 TH/MM3 Monocytes # (Auto) 0.3 TH/MM3 Eosinophils # (Auto) 0.1 TH/MM3 Basophils # (Auto) 0.1 TH/MM3 CBC Comment DIFF FINAL Differential Comment Prothrombin Time 13.6 SEC Prothromb Time International Ratio 1.2 RATIO Blood Urea Nitrogen 13 MG/DL Creatinine 0.62 MG/DL Random Glucose 147 MG/DL Total Protein 6.9 GM/DL Albumin 2.7 GM/DL Calcium Level 8.3 MG/DL Alkaline Phosphatase 74 U/L Aspartate Amino Transf (AST/SGOT) 48 U/L Alanine Aminotransferase (ALT/SGPT) 35 U/L Total Bilirubin 1.7 MG/DL Sodium Level 143 MEQ/L Potassium Level 3.6 MEQ/L Chloride Level 111 MEQ/L Carbon Dioxide Level 23.9 MEQ/L Anion Gap 8 MEQ/L Estimat Glomerular Filtration Rate 134 ML/MIN Procalcitonin 0.11 ng/mL Objective Remarks GENERAL: Well-nourished, well-developed patient. More alert SKIN: Warm and dry. HEAD: Normocephalic. EYES: No scleral icterus. No injection or drainage. NECK: Supple, trachea midline. No JVD or lymphadenopathy. LYMPHATIC: No adenopathy. CARDIOVASCULAR: Regular rate and rhythm without murmurs. RESPIRATORY: Breath sounds equal bilaterally. No accessory muscle use. GASTROINTESTINAL: Abdomen soft, distended, non-tender. EXTREMITIES: No cyanosis, diffuse edema. MUSCULOSKELETAL: Adequate muscle tone. NEUROLOGICAL: No obvious focal deficit. Awake, alert, and oriented to self and place Medications and IVs Current Medications Medications (Trade) Dose Ordered Sig/Jez Route Start Time Stop Time Status Last Admin (Buspar) 10 mg TID PO 05/14/17 09:00 05/16/17 17:38 (Tums Chew) 500 mg DAILY PRN CHEW 05/13/17 18:15 (Protonix) 40 mg BID PO 05/13/17 21:00 05/16/17 22:50 (Inderal) 10 mg Q12HR PO 05/13/17 21:00 05/16/17 22:50 (Xifaxan) 550 mg BID PO 05/13/17 21:00 05/16/17 22:51 (Aldactone) 100 mg DAILY PO 05/14/17 09:00 05/16/17 08:58 (Flomax) 0.8 mg DAILY PO 05/14/17 09:00 05/16/17 08:58 (Lyrica) 300 mg TID PO 05/14/17 09:00 05/16/17 17:38 (NS Flush) 2 ml UNSCH PRN IV FLUSH 05/13/17 18:30 05/15/17 10:25 (NS Flush) 2 ml BID IV FLUSH 05/13/17 21:00 05/16/17 22:55 (Tylenol) 650 mg Q6H PRN PO 05/13/17 18:30 (Palisade 5-325 Mg) 1 tab Q4H PRN PO 05/13/17 18:30 05/16/17 14:10 (Morphine Inj) 2 mg Q2H PRN IV PUSH 05/13/17 18:30 05/16/17 22:54 (Tears Naturale Opth Soln) 1 drop TID EACH EYE 05/14/17 09:00 05/16/17 13:00 (Zofran Inj) 4 mg Q6H PRN IV PUSH 05/13/17 18:30 (Duoneb Neb) 1 ampule Q4HR NEB INH 05/13/17 20:00 05/17/17 08:01 (Albuterol Neb) 2.5 mg Q2HR NEB PRN INH 05/13/17 18:30 Miscellaneous Information 1 Q361D XX 05/13/17 18:30 05/13/17 19:00 (Chlorhexidine 2% Cloth) 3 pack Taper DAILY@04 TOP 05/14/17 04:00 05/10/18 03:59 05/14/17 04:00 (Chlorhexidine 2% Cloth) 3 pack UNSCH PRN TOP 05/13/17 18:30 (Sarahi-Colace) 1 tab BID PO 05/13/17 21:00 05/16/17 22:51 (Milk Of Magnesia Liq) 30 ml Q12H PRN PO 05/13/17 18:30 (Senokot) 17.2 mg Q12H PRN PO 05/13/17 18:30 (Dulcolax Supp) 10 mg DAILY PRN RECTAL 05/13/17 18:30 (Lactulose Liq) 30 ml DAILY PRN PO 05/13/17 18:30 (D50w (Vial) Inj) 50 ml UNSCH PRN IV 05/13/17 18:30 (Glucagon Inj) 1 mg UNSCH PRN OTHER 05/13/17 18:30 (NovoLIN R SUPPLEMENTAL SCALE) 1 ACHS SLIDING SCALE SQ 05/13/17 21:00 05/17/17 05:44 (Lactulose Liq) 30 ml DAILY PO 05/14/17 09:00 05/16/17 08:59 Cefepime HCl 2000 mg/Sodium Chloride 100 ml @ 200 mls/hr Q8H IV 05/13/17 20:00 05/17/17 05:40 (Tylenol) 650 mg Q6H PRN PO 05/13/17 18:30 (Palisade 5-325 Mg) 1 tab Q4H PRN PO 05/13/17 18:30 (Morphine Inj) 2 mg Q2H PRN IV PUSH 05/13/17 18:30 Potassium Chloride 100 ml @ 50 mls/hr Q2H PRN IV 05/13/17 18:30 Potassium Chloride 100 ml @ 50 mls/hr Q2H PRN IV 05/13/17 18:30 (K-Lyte Cl Eff) 50 meq UNSCH PRN PO 05/13/17 18:30 Potassium Chloride 100 ml @ 25 mls/hr UNSCH PRN IV 05/13/17 18:30 Potassium Chloride 100 ml @ 50 mls/hr Q2H PRN IV 05/13/17 18:30 Magnesium Sulfate 4 gm/Sodium Chloride 100 ml @ 50 mls/hr UNSCH PRN IV 05/13/17 18:30 (Mag-Ox) 800 mg UNSCH PRN PO 05/13/17 18:30 Magnesium Sulfate 2 gm/Sodium Chloride 100 ml @ 50 mls/hr UNSCH PRN IV 05/13/17 18:30 (K-Phos) 2,000 mg Q4H PRN PO 05/13/17 18:30 Sodium Phosphate 30 mmol/Sodium Chloride 250 ml @ 42 mls/hr UNSCH PRN IV 05/13/17 18:30 (K-Phos) 2,000 mg UNSCH PRN PO/TUBE 05/13/17 18:30 Potassium Phosphate 30 mmol/ Sodium Chloride 260 ml @ 42 mls/hr UNSCH PRN IV 05/13/17 18:30 05/14/17 02:00 (Albumin 25% Inj) 25 gm Q12H IV 05/14/17 21:00 05/16/17 22:50 (Lasix Inj) 40 mg DAILY IV PUSH 05/15/17 11:15 05/16/17 08:59 A/P Assessment and Plan 56 year old male. Originally admitted to [facility] on 05/04, had developed massive hematemesis and hemorrhagic shock, necessitating intubation and multiple blood transfusions. He was deemed not be a candidate for TIPs at this facility secondary to history portal vein occlusion in the liver hilum with reconstitution of parenchymal portal vein branches on CT scan 09/17/16. He was then transferred to [facility] for possible TIPS procedure. While at [facility], he was found hepatocellular carcinoma on CT and sent back here since TIPS was contraindicated w/ possible portal vein thrombosis/cancer. Currently awaiting palliative consult (wednesday). Upper GI bleed from grade 4 esophageal varices status post banding 3 05/05 Hepatitis C IIIa scheduled for ribavirin 200 mg and Sofosbuvir/Velpatasvir therapy 400 mg/100 mg History of portal vein thrombosis Likely hepatocellular carcinoma Elevated ammonia Liver cirrhosis from EtOH and hepatitis C Abdominal ascites Continue pantoprazole Continue Xifaxan and lactulose . Not a candidate for TIPS secondary to portal vein thrombosis and multifocal arterially enhancing lesions concerning for diffuse HCC. Speech eval, diet per speech Ascites - likely from hepatic insufficiency, noted on US Hepatocellular carcinoma on CT - palliative care has been consulted. oncology following, possible further imaging studies being entertained. Continue propranolol Continue Aldactone GI considering paracentesis tomorrow History of HCAP ESBL+ Patient previously on ceftriaxone for upper GI bleed. On cefepime Check sputum cx - not done, may not be necessary since patient is not coughing, no fever noted over the last 48 hours, we'll obtain pro-calcitonin and discontinue cefepime if within normal limits Depression History of alcohol dependence History of hepatic encephalopathy Diabetic neuropathy Chronic pain syndrome hydrocodone/acetaminophen at home for pain management Morphine sulfate for pain management. Continue buspirone 10 mg by mouth 3 times a day/home medication Continue Pregabalin 300 mg by mouth 3 times a day/home medication for diabetic neuropathy. BPH Continue tamsulosin 0.8 milligrams by mouth daily Diabetes mellitus with neuropathy Sliding scale insulin with Accu-Cheks to maintain euglycemia/low regimen with meals/at bedtime with Novulin R Unstable sacral decubitus ulcer Wound care evaluate and treat Incentive spirometry while awake Albuterol/Atrovent every 4 hours with albuterol aerosols every 2 hours as needed Dyspnea - DVT - SCD/pharmacological prophylaxis contra indicated with GI bleed Discharge Planning Once cleared by specialists. Matt Sagastume MD May 17, 2017 08:29
[2017-05-17] MEDS: ARTIFICIAL TEARS OPTH SOLN 15 ML BTL EACH EYE SCH ×3 (09:00→17:17)
--- NOTE | 2017-05-17 09:39 | HHI.GIFU ---
Subjective Remarks Pt in restraints, confused. Denies abdominal pain. No n/v. Flexiseal in place with small amount liquid stool. Denies fevers. (Yumiko Vale) Objective Vitals I&O Vital Signs Date Time Temp Pulse Resp B/P (MAP) Pulse Ox O2 Delivery O2 Flow Rate FiO2 05/17/17 06:00 64 05/17/17 06:00 91 Room Air 05/17/17 04:00 98.9 67 13 146/73 (97) 90 05/17/17 04:00 67 05/17/17 02:00 84 05/17/17 00:00 69 05/17/17 00:00 98.7 69 12 120/76 (91) 91 05/16/17 22:00 70 05/16/17 20:24 94 21 05/16/17 20:00 98.9 96 29 159/78 (105) 91 05/16/17 20:00 95 05/16/17 19:00 91 Room Air 05/16/17 18:00 86 05/16/17 16:00 76 05/16/17 16:00 98.1 72 18 165/75 (105) 96 05/16/17 14:00 67 05/16/17 12:00 67 05/16/17 12:00 97.5 74 18 150/76 (100) 97 I/O 05/16/17 05/16/17 05/16/17 05/17/17 05/17/17 05/17/17 07:00 15:00 23:00 07:00 15:00 23:00 Intake Total 463 ml 1850 ml 122 ml Output Total 550 ml 2850 ml 500 ml Balance -87 ml -1000 ml -378 ml Intake Oral 240 ml 1500 ml IV Total 223 ml 350 ml 122 ml Output Urine Total 500 ml 2800 ml 450 ml Stool Total 50 ml 50 ml 50 ml Laboratory Laboratory Tests Test 05/16/17 17:13 Procalcitonin 0.11 Imaging Last Impressions Abdomen Ultrasound 05/15/17 0000 Signed Impressions: Service Date/Time: Monday, May 15, 2017 08:05 - CONCLUSION: Limited abdominal ultrasound with the patient being combative during the examination. The liver is diffusely abnormal with coarsening of echotexture and a nodular liver surface likely from cirrhosis. There is moderate ascites seen around the liver. Raúl Garay MD Chest X-Ray 05/13/17 0000 Signed Impressions: Service Date/Time: April 19:01 - CONCLUSION: 1. Interim extubation. 2. Left perihilar/infrahilar consolidation. 3. Patchy mild bilateral airspace opacities. 4. Small left pleural effusion. Raúl Greene MD Physical Exam HEENT: Normocephalic; atraumatic; + jaundice. CHEST: Resp. even/unlabored, diminished CARDIAC: RRR ABDOMEN: Soft, distention with large amount ascites, hepatosplenomegaly; bowel sounds are present EXTREMITIES:BLE edema. SKIN: + jaundice. TREKKING GUIDE: Lethargic, oriented to self, but inappropriate at times (Yumiko Vale) Assessment and Plan Plan ASSESSMENT: - Upper GIB secondary to esophageal varices. EGD (05/05/17)----> There was a nipple sign on a large distal varix and that seems to be where the bleeding was from. 4 bands applied on 3 varices. Bleeding seemed controlled. There was a great deal of blood in the upper stomach. The stomach and duodenum could not be examined further, cannot rule out gastric varices. He was treated with octreotide and protonix drips and IR was consulted for evaluation for TIPS procedure. However, he was deemed not be a candidate at this facility secondary to history portal vein occlusion in the liver hilum with reconstitution of parenchymal portal vein branches on CT scan 09/17/16. He was then transferred to [facility] for possible TIPS procedure. While at [facility], he was found to likely have hepatocellular carcinoma on CT. There were questionable multifocal arterial lesions likely consistent with this diagnosis. MR liver was to be performed but no information sent. TIPS is contraindicated with portal vein thrombosis/cancer therefore patient was transferred back to this facility. No obvious active bleeding, but his HH did drop from 10.0/31.4 to 8.6/27.5. He has yellow stool. PPI, Inderal. - Anemia, acute blood loss. S/P recent EGD with band ligation as above. HH 8.6 /27.5. Will get repeat HH this afternoon - Coagulopathy. Stable. 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 No ETOH x 6 years. On tx with Epclusa /ribavirin [facility], HCC suspected, not a transplant candidate. AFP 3.1. MRI when more stable. Oncology following. - Suspected hepatocellular carcinoma, per [facility]. Per imaging at [facility] (CT scan, MRI) CT Abdomen liver three phase with ivcon (05/09/17)---> cirrhotic liver with thrombosis of the portal vein. Expansion and arterial enhancement of the intrahepatic and extrahepatic portal venous system with apparent washout on delyaed imaging concerning for tumor thrombus from diffuse HCC. Multifocal arterial enhancing lesions, concerning for diffuse HCC. Equivocal arterially enhancing lesions may represent dysplastic nodules. Furthermore, given the discordant findings of flow within the portal vein on the patient's ultrasound. Recommend further evaluation with multiphase liver protocol MRI. Small volume ascites and splenomegaly consistent with portal hypertension. Multifocal pneumonia with small bilateral pleural effusions. I reviewed the records from [facility], but did not see where an MRI was performed. AFP 3.1. Oncology following, MRI when stable. - Portal vein thrombosis. Seen on above CT at [facility]. - Hepatitis C, Genotype 3a. On Epclusa as outpatient. - Hepatic encephalopathy. Confused. Lactulose, Xifaxan - Ascites. Pt with significant abdominal distention, US (05/15/17)---> Limited US with the patient being combative during the examination. The liver is diffusely abnormal with coarsening of echotexture and a nodular liver surface, likely from cirrhosis. There is moderate ascites seen around the liver. No fevers, chills. Denies abdominal pain. Aldactone. Lasix, Albumin Cefepime. - Respiratory failure, PNA, Pleural effusion. On n/c. Cefepime - HTN, Hyperlipidemia, BPH, DM, Neuropathy, Sacral wound. PLAN: - Low sodium diet - H/H 1600 today. - Cont. Lasix - Cont. Albumin - Cont. Lasix - Cont. Protonix - Cont. Propranolol - Cont. Spironolactone - Cont. Lactulose - Cont. Xifaxan - Monitor CBC, PT/INR, CMP, Ammonia - MRI when stable - Oncology following - Supportive care - Further recommendations to follow based on results of above - Pt seen and examined by Dr. Menon and myself and this note is written on his behalf (Yumiko Vale) Physician Comments Patient seen and examined Agree with above Monitor labs Continue with current supportive care (Romeo Menon MD) Yumiko Vale May 17, 2017 09:39 Romeo Menon MD May 17, 2017 20:57
[2017-05-17] MEDS: LACTULOSE SYRUP 20 GM/30 ML CUP PO SCH (10:13)
[2017-05-17] MEDS: PROPRANOLOL HCL 10 MG TAB PO SCH ×2 (10:13→21:59)
[2017-05-17] MEDS: PANTOPRAZOLE SOD 40 MG DELAYED RELEASE TAB PO SCH ×2 (10:13→21:59)
[2017-05-17] MEDS: RIFAXIMIN 550 MG TAB PO SCH ×2 (10:13→21:59)
[2017-05-17] MEDS: TAMSULOSIN HCL 0.4 MG CAP PO SCH (10:13)
[2017-05-17] MEDS: PREGABALIN 100 MG CAP PO SCH ×3 (10:13→17:17)
[2017-05-17] MEDS: DOCUSATE SODIUM 50 MG/SENNA 8.6 MG TAB PO SCH ×2 (10:13→21:59)
[2017-05-17] MEDS: SODIUM CHLORIDE 0.9% FLUSH 10 ML FLUSH IV FLUSH SCH ×2 (10:14→21:59)
[2017-05-17] MEDS: FUROSEMIDE 40 MG/4 ML VIAL IV PUSH SCH (10:14)
[2017-05-17] MEDS: SPIRONOLACTONE 100 MG TAB PO SCH (10:14)
[2017-05-17] MEDS: ALBUMIN HUMAN 25% 25 GM/100 ML BAGP IV SCH ×2 (10:14→21:59)
[2017-05-17] MEDS: busPIRone HCL 10 MG TAB PO SCH ×3 (10:14→17:17)
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
--- NOTE | 2017-05-17 12:31 | PD.WCN.NOT ---
Wound Consult Description: Received consult per protocol for wound management of sacrum from Doctor Stinson Communicated with: TRAVIS AMARO and Spoke with Doctor Bustos for orders. Recommendation: Please cleanse wounds to sacrococcygeal area and R buttock with normal saline only pat dry before applying Santyl ointment vannessa thickness to sacrococcygeal wound only and cover with ABD pad, secured with paper tape. Please apply skin prep to periwound and before applying adhesives to skin. Change dressing daily Please cover wound to L buttock with Xeroform in single layer just over wound bed and cover with ABD pad secured with paper tape. Change dressing daily. Additional Information: Patient seen on 5th floor [facility] for evaluation of wound management of sacrum. Patient is laying on Miley standard low airloss [facility] bed.Positioned patient with the assistance of TRAVIS AMARO to R side for wound assessment. Noted unstageable pressure injury to sacrococcygeal area measuring 9.3cm x 3 cm x slough. Wound bed presents with ~60% adherent yellow slough and ~40% pink tissue .Wound margins are uneven and are assessed with new epithelial tissue. Periwound is noted with blanchable erythema.Drainage is minimal and serous with out odor. R buttock wound presents with 100% pink tissue and measures ~3cm x ~ 2cm x~<0.1cm. Cleansed both wounds with normal saline and left open to air. TRAVIS AMARO to apply dressing when supplies and Santyl ointment are obtained. Lori Wong [facility] May 17, 2017 12:31
[2017-05-17 17:55] LABS: HEMATOCRIT 27.8 % (39.0-51.0); REVIEW FLAG FINAL
[2017-05-17] MEDS: MORPHINE SULFATE 4 MG/ML INJ IV PUSH PRN ×2 (19:00→22:35)
[2017-05-18] VITALS (12 sets, daily range): BP systolic 106–149; BP diastolic 53–81; PULSE 59–92; RESP 11–18; TEMP 97.9–99.6; O2SAT 91–96
[2017-05-18] MEDS: CHLORHEXIDINE GLUCONATE 2 % 1 PACK (2 CLOTHS) TOP SCH (04:00)
[2017-05-18] MEDS: CEFEPIME INJ 2,000 MG in SODIUM CHLORIDE 0.9% INJ 100 ML IV SCH ×3 (05:01→20:00)
[2017-05-18] MEDS: MORPHINE SULFATE 4 MG/ML INJ IV PUSH PRN ×3 (05:02→18:54)
[2017-05-18 06:34] LABS: AUTOMATED NEUTROPHIL # 4.4 TH/MM3 (1.8-7.7); BASOPHIL % 0.8 % (0.0-2.0); EOSINOPHIL # 0.1 TH/MM3 (0-0.4); EOSINOPHIL % 1.5 % (0.0-4.0); HEMATOCRIT 28.8 % (39.0-51.0); HEMO FLAGS DIFF FINAL; LYMPH % 11.1 % (9.0-44.0); LYMPHOCYTE # 0.6 TH/MM3 (1.0-4.8); MEAN CELL VOLUME 95.3 FL (80.0-100.0); MEAN CORPUSCULAR HEMOGLOBIN 31.6 PG (27.0-34.0); MEAN CORPUSCULAR HGB CONC 33.2 % (32.0-36.0); MONO % 7.9 % (0.0-8.0); NEUT % 78.7 % (16.0-70.0); PLATELET COUNT 138 TH/MM3 (150-450); RED BLOOD COUNT 3.02 MIL/MM3 (4.50-5.90); RED CELL DISTRIBUTION WIDTH 18.8 % (11.6-17.2); WHITE BLOOD COUNT 5.6 TH/MM3 (4.0-11.0)
[2017-05-18 06:51] LABS: ALT (GPT) 45 U/L (12-78); ANION GAP 7 MEQ/L (5-15); AST (GOT) 66 U/L (15-37); BICARBONATE 27.5 MEQ/L (21.0-32.0); BLOOD UREA NITROGEN 9 MG/DL (7-18); CHLORIDE 105 MEQ/L (98-107); GLOMERULAR FILTRATION RATE 142 ML/MIN (>89); POTASSIUM 3.5 MEQ/L (3.5-5.1); SODIUM (NA) 139 MEQ/L (136-145)
[2017-05-18 06:53] LABS: ALKALINE PHOSPHATASE 79 U/L (45-117); TOTAL BILIRUBIN ADULT 1.7 MG/DL (0.2-1.0)
[2017-05-18] MEDS: ARTIFICIAL TEARS OPTH SOLN 15 ML BTL EACH EYE SCH ×3 (09:00→18:00)
[2017-05-18] MEDS: DOCUSATE SODIUM 50 MG/SENNA 8.6 MG TAB PO SCH ×2 (09:00→21:02)
[2017-05-18] MEDS: ALBUMIN HUMAN 25% 25 GM/100 ML BAGP IV SCH ×2 (09:18→21:02)
[2017-05-18] MEDS: COLLAGENASE OINT 30 GM TUBE TOPICAL SCH (09:18)
[2017-05-18] MEDS: LACTULOSE SYRUP 20 GM/30 ML CUP PO SCH (09:18)
[2017-05-18] MEDS: FUROSEMIDE 40 MG/4 ML VIAL IV PUSH SCH (09:19)
[2017-05-18] MEDS: TAMSULOSIN HCL 0.4 MG CAP PO SCH (09:19)
[2017-05-18] MEDS: SPIRONOLACTONE 100 MG TAB PO SCH (09:19)
[2017-05-18] MEDS: RIFAXIMIN 550 MG TAB PO SCH ×2 (09:19→21:02)
[2017-05-18] MEDS: SODIUM CHLORIDE 0.9% FLUSH 10 ML FLUSH IV FLUSH SCH ×2 (09:19→21:00)
[2017-05-18] MEDS: PANTOPRAZOLE SOD 40 MG DELAYED RELEASE TAB PO SCH ×2 (09:19→21:02)
[2017-05-18] MEDS: PROPRANOLOL HCL 10 MG TAB PO SCH ×2 (09:19→21:02)
[2017-05-18] MEDS: busPIRone HCL 10 MG TAB PO SCH ×3 (09:19→17:49)
[2017-05-18] MEDS: PREGABALIN 100 MG CAP PO SCH ×3 (09:19→17:49)
[2017-05-18] MEDS: INSULIN NovoLIN REGULAR SUPPLEMENTAL SCALE SQ SCH ×4 (09:40→21:04)
--- NOTE | 2017-05-18 10:30 | HHI.GIFU ---
Subjective Remarks Resting in bed. Requesting breathing treatment. Tolerating diet. No abdominal pain. Liquid stool via flexiseal. (Yumiko Vale) Objective Vitals I&O Vital Signs Date Time Temp Pulse Resp B/P (MAP) Pulse Ox O2 Delivery O2 Flow Rate FiO2 05/18/17 06:00 64 05/18/17 05:07 12 05/18/17 04:00 98.4 78 18 149/77 (101) 96 05/18/17 04:00 78 05/18/17 02:00 59 05/18/17 00:00 98.8 64 17 137/64 (88) 93 05/18/17 00:00 64 05/17/17 22:00 71 05/17/17 21:00 94 21 05/17/17 20:00 99.6 67 16 177/79 (111) 91 05/17/17 20:00 67 05/17/17 18:00 66 05/17/17 16:14 100 Nasal Cannula 4 05/17/17 16:00 69 05/17/17 16:00 98.4 69 18 160/77 (104) 92 05/17/17 14:00 65 05/17/17 12:00 98.3 64 17 142/72 (95) 94 05/17/17 12:00 64 05/17/17 11:00 75 I/O 05/17/17 05/17/17 05/17/17 05/18/17 05/18/17 05/18/17 07:00 15:00 23:00 07:00 15:00 23:00 Intake Total 122 ml 820 ml 340 ml Output Total 500 ml 2100 ml 1150 ml Balance -378 ml -1280 ml -810 ml Intake Oral 720 ml 240 ml IV Total 122 ml 100 ml 100 ml Output Urine Total 450 ml 2050 ml 1100 ml Stool Total 50 ml 50 ml 50 ml Laboratory Laboratory Tests Test 05/17/17 17:00 05/18/17 06:20 Hemoglobin 9.1 9.6 Hematocrit 27.8 28.8 White Blood Count 5.6 Red Blood Count 3.02 Mean Corpuscular Volume 95.3 Mean Corpuscular Hemoglobin 31.6 Mean Corpuscular Hemoglobin Concent 33.2 Red Cell Distribution Width 18.8 Platelet Count 138 Mean Platelet Volume 8.7 Neutrophils (%) (Auto) 78.7 Lymphocytes (%) (Auto) 11.1 Monocytes (%) (Auto) 7.9 Eosinophils (%) (Auto) 1.5 Basophils (%) (Auto) 0.8 Neutrophils # (Auto) 4.4 Lymphocytes # (Auto) 0.6 Monocytes # (Auto) 0.4 Eosinophils # (Auto) 0.1 Basophils # (Auto) 0.0 CBC Comment DIFF FINAL Differential Comment Blood Urea Nitrogen 9 Creatinine 0.59 Random Glucose 183 Total Protein 6.6 Albumin 2.8 Calcium Level 8.0 Alkaline Phosphatase 79 Aspartate Amino Transf (AST/SGOT) 66 Alanine Aminotransferase (ALT/SGPT) 45 Total Bilirubin 1.7 Sodium Level 139 Potassium Level 3.5 Chloride Level 105 Carbon Dioxide Level 27.5 Anion Gap 7 Estimat Glomerular Filtration Rate 142 Imaging Last Impressions Abdomen Ultrasound 05/15/17 0000 Signed Impressions: Service Date/Time: Monday, May 15, 2017 08:05 - CONCLUSION: Limited abdominal ultrasound with the patient being combative during the examination. The liver is diffusely abnormal with coarsening of echotexture and a nodular liver surface likely from cirrhosis. There is moderate ascites seen around the liver. Raúl Garay MD Chest X-Ray 05/13/17 0000 Signed Impressions: Service Date/Time: April 19:01 - CONCLUSION: 1. Interim extubation. 2. Left perihilar/infrahilar consolidation. 3. Patchy mild bilateral airspace opacities. 4. Small left pleural effusion. Raúl Greene MD Physical Exam HEENT: Normocephalic; atraumatic; + jaundice. CHEST: Resp. even/unlabored, diminished CARDIAC: RRR ABDOMEN: Soft, distention with moderate to large amount ascites, hepatosplenomegaly; bowel sounds are present EXTREMITIES:BLE edema. SKIN: + jaundice. GRINDING ROOM INSPECTOR: Lethargic, oriented to self, but inappropriate at times (Yumiko Vale) Assessment and Plan Plan ASSESSMENT: - Upper GIB secondary to esophageal varices. EGD (05/05/17)----> There was a nipple sign on a large distal varix and that seems to be where the bleeding was from. 4 bands applied on 3 varices. Bleeding seemed controlled. There was a great deal of blood in the upper stomach. The stomach and duodenum could not be examined further, cannot rule out gastric varices. He was treated with octreotide and protonix drips and IR was consulted for evaluation for TIPS procedure. However, he was deemed not be a candidate at this facility secondary to history portal vein occlusion in the liver hilum with reconstitution of parenchymal portal vein branches on CT scan 09/17/16. He was then transferred to [facility] for possible TIPS procedure. While at [facility], he was found to likely have hepatocellular carcinoma on CT. There were questionable multifocal arterial lesions likely consistent with this diagnosis. MR liver was to be performed but no information sent. TIPS is contraindicated with portal vein thrombosis/cancer therefore patient was transferred back to this facility. No obvious active bleeding. HH stable .02/24.8. Yellow stool. PPI, Inderal. - Anemia, acute blood loss. S/P recent EGD with band ligation as above. HH ..8. Will get repeat HH this afternoon - Coagulopathy. Stable. 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 No ETOH x 6 years. On tx with Epclusa /ribavirin as outpatient. Per [facility], HCC suspected, not a transplant candidate. AFP 3.1. MRI when more stable. Oncology following. - Suspected hepatocellular carcinoma, per [facility]. Per imaging at [facility] (CT scan, MRI) CT Abdomen liver three phase with ivcon (05/09/17)---> cirrhotic liver with thrombosis of the portal vein. Expansion and arterial enhancement of the intrahepatic and extrahepatic portal venous system with apparent washout on delyaed imaging concerning for tumor thrombus from diffuse HCC. Multifocal arterial enhancing lesions, concerning for diffuse HCC. Equivocal arterially enhancing lesions may represent dysplastic nodules. Furthermore, given the discordant findings of flow within the portal vein on the patient's ultrasound. Recommend further evaluation with multiphase liver protocol MRI. Small volume ascites and splenomegaly consistent with portal hypertension. Multifocal pneumonia with small bilateral pleural effusions. I reviewed the records from [facility], but did not see where an MRI was performed. AFP 3.1. Oncology following, MRI when stable. Palliative care consult. - Portal vein thrombosis. Seen on above CT at [facility]. - Hepatitis C, Genotype 3a. On Epclusa as outpatient. - Hepatic encephalopathy. Confused. Lactulose, Xifaxan - Ascites. Pt with significant abdominal distention, US (05/15/17)---> Limited US with the patient being combative during the examination. The liver is diffusely abnormal with coarsening of echotexture and a nodular liver surface, likely from cirrhosis. There is moderate ascites seen around the liver. No fevers, chills. Denies abdominal pain. Aldactone. Lasix, Albumin Cefepime. Slightly improved today. - Respiratory failure, PNA, Pleural effusion. On n/c. Cefepime - HTN, Hyperlipidemia, BPH, DM, Neuropathy, Sacral wound. PLAN: - Low sodium diet - Cont. Lasix - Cont. Albumin - Cont. Lasix - Cont. Protonix - Cont. Propranolol - Cont. Spironolactone - Cont. Lactulose - Cont. Xifaxan - Monitor CBC, PT/INR, CMP, Ammonia - MRI when stable- still a little anxious, unsure if he would be able to lie still for MRI at this time. - Oncology following - Supportive care - Further recommendations to follow based on results of above - Pt seen and examined by Dr. Menon and myself and this note is written on his behalf (Yumiko Vale) Physician Comments Patient seen and examined Agree with above Continue with current supportive care Monitor labs At this point I think the overall prognosis is poor but will continue with current care Consideration can be made for palliative and/or hospice evaluation (Romeo Menon MD) Yumiko Vale May 18, 2017 10:30 Romeo Menon MD May 18, 2017 23:21
--- NOTE | 2017-05-18 11:20 | HHI.HCPN ---
Reason for visit a. To assist with evaluation and management of symptoms including: abdominal distention, pain. b. To assist medical decision maker(s) with: better understanding of current medical conditions; weighing benefits/burdens of medical treatment options; making medical treatment decisions. . Subjective/Interval History Pt seen today to follow up on comfort, goals w decision maker. stable overnight in ICU. Nsg reports still confused at times. CBC, chemistry stable. Bilirubin 1.7. No new imaging. + reported pressure wound to sacrum, wound care following. Pt seen in room as PT at bedside, assisting w activity. Dual visit w S. Elaina HELICOPTER OFFICER. Pt reported to stand , ambulate a few steps well per PT, w balance assist. He is alert, partially oriented to hospital, month, knows he came to the hospital for "bleeding problems". He c/o wanting to have a BM on BSC, feels that the rectal tube is preventing him from going. Also tells me that if he could have his Flomax pill 3 times a day he would get better. Very limited/poor insight, though he is cooperative. He denies pain except for his "chronic neuropathy to LE". Denies dyspnea. Denies any other complaints. Advise I would try to reach his parents again to provide update. HX per initial consult GISSELLE Blakely [facility] 05/18/17: Mr. Arzola is a 56 year old male with past medical history of hep C, portal hypertension, portal vein thrombosis, alcohol abuse, diabetes, hypertension, sacral decubitis, receurrent GI bleed, esophageal varices, osteoarthritis, neuropathy, encephalopathy and BPH. Patient originally presented to [facility] emergency department on 05/08/17 for upper GI bleed due to esophageal varices. He was transferred to [facility] for possible TIPS procedure, however was found to have portal vein thrombosis and was therefore not a candidate for TIPS procedure. While at [facility] he had CT scan which revealed multifocal arterially enhanced lesions suspicious for hepatocellular carcinoma. He was transferred back to [facility] on 05/13/17. Patient has remained in ICU. He is awake and alert, with some intermittent confusion. He remains in bilateral soft wrist restraints as he tries to climb out of bed. Oncology, Dr. Tavarez and gastroenterology, Dr. Maciel have been consulted. Oncology plans for MRI liver if/when more stable and notes indicate patient is not a candidate for systemic or local treatment due to poor performance status. AFP 3.1. Palliative care was consulted to assist with further clarification of treatment goals. . Family/friend interactions Call to parents #, VM left. . Advance Directives Health Care Surrogate: Copy in medical record Advance Directive Specifics Date completed: 05/17/17. Health Care Surrogate(s): Completed designation of [facility] naming parents Ramya and/or Vance Arzola as [facility] care surrogates. . Objective Vital Signs Date Time Temp Pulse Resp B/P (MAP) Pulse Ox O2 Delivery O2 Flow Rate FiO2 05/18/17 10:00 66 05/18/17 08:00 75 05/18/17 08:00 97.9 75 13 146/81 (102) 95 05/18/17 06:00 64 05/18/17 05:07 12 05/18/17 04:00 98.4 78 18 149/77 (101) 96 05/18/17 04:00 78 05/18/17 02:00 59 05/18/17 00:00 98.8 64 17 137/64 (88) 93 05/18/17 00:00 64 05/17/17 22:00 71 05/17/17 21:00 94 21 05/17/17 20:00 99.6 67 16 177/79 (111) 91 05/17/17 20:00 67 05/17/17 18:00 66 05/17/17 16:14 100 Nasal Cannula 4 05/17/17 16:00 69 05/17/17 16:00 98.4 69 18 160/77 (104) 92 05/17/17 14:00 65 05/17/17 12:00 98.3 64 17 142/72 (95) 94 05/17/17 12:00 64 Intake & Output 05/18/17 05/18/17 07:00 19:00 Intake Total 440 ml Output Total 1150 ml Balance -710 ml Intake Oral 240 ml IV Total 200 ml Output Urine Total 1100 ml Stool Total 50 ml Physical Exam CONSTITUTIONAL/GENERAL: This is a chronically ill appearing patient, intermittently confused, seated on edge of bed w PT TUBES/LINES/DRAINS: PIVs RUE, Rosado, rectal tube. SKIN: + jaundice. Ecchymoses on upper extremities. Scar right clavicle, well healed. No wounds seen anteriorly. Skin temperature appropriate. Not diaphoretic. CARDIOVASCULAR: Regular rate and rhythm without murmurs. Peripheral pulses symmetric. RESPIRATORY/CHEST: Symmetric, unlabored respirations. Diminished breath sounds. GASTROINTESTINAL: Abdomen soft, non-tender, +distended. Bowel sounds present. Rectal tube yellow/brown liq drainage. GENITOURINARY: Without palpable bladder distension. Rosado catheter in place. MUSCULOSKELETAL: trace edema to extremities. Muscle atrophy BLE NEUROLOGICAL: Awake and alert, oriented to self , place, month.Cooperative. very limited/poor insight to hospitalization. Moves all extremities. PSYCHIATRIC: no apparent anxiety or depression . Diagnostic Tests Laboratory Laboratory Tests Test 05/15/17 13:35 05/16/17 03:45 05/16/17 17:13 05/17/17 17:00 Urine Color LIGHT-YELLOW (YELLW/STRAW) Urine Turbidity CLEAR (CLEAR) Urine pH 5.5 (5.0-8.5) Urine Specific Marshall 1.007 (1.002-1.035) Urine Protein NEG mg/dL (NEG-TRACE) Urine Glucose (UA) NEG mg/dL (NEG) Urine Ketones NEG mg/dL (NEG) Urine Occult Blood TRACE (NEG) Urine Nitrite NEG (NEG) Urine Bilirubin NEG (NEG) Urine Urobilinogen LESS THAN 2.0 MG/DL (LESS Urine Leukocyte Esterase NEG (NEG) Urine RBC 2 /hpf (0-3) Urine WBC LESS THAN 1 /hpf (0-5) Urine Hyaline Casts 1 /lpf (RARE) Urine Mucus FEW /lpf (OCC) Microscopic Urinalysis Comment CULT NOT INDICATED White Blood Count 5.2 TH/MM3 (4.0-11.0) Red Blood Count 2.81 MIL/MM3 (4.50-5.90) Hemoglobin 8.6 GM/DL (13.0-17.0) 9.1 GM/DL (13.0-17.0) Hematocrit 27.5 % (39.0-51.0) 27.8 % (39.0-51.0) Mean Corpuscular Volume 97.7 FL (80.0-100.0) Mean Corpuscular Hemoglobin 30.6 PG (27.0-34.0) Mean Corpuscular Hemoglobin Concent 31.4 % (32.0-36.0) Red Cell Distribution Width 19.5 % (11.6-17.2) Platelet Count 152 TH/MM3 (150-450) Mean Platelet Volume 8.7 FL (7.0-11.0) Neutrophils (%) (Auto) 76.0 % (16.0-70.0) Lymphocytes (%) (Auto) 16.5 % (9.0-44.0) Monocytes (%) (Auto) 5.0 % (0.0-8.0) Eosinophils (%) (Auto) 1.5 % (0.0-4.0) Basophils (%) (Auto) 1.0 % (0.0-2.0) Neutrophils # (Auto) 4.0 TH/MM3 (1.8-7.7) Lymphocytes # (Auto) 0.9 TH/MM3 (1.0-4.8) Monocytes # (Auto) 0.3 TH/MM3 (0-0.9) Eosinophils # (Auto) 0.1 TH/MM3 (0-0.4) Basophils # (Auto) 0.1 TH/MM3 (0-0.2) CBC Comment DIFF FINAL Differential Comment Prothrombin Time 13.6 SEC (9.8-11.6) Prothromb Time International Ratio 1.2 RATIO Blood Urea Nitrogen 13 MG/DL (7-18) Creatinine 0.62 MG/DL (0.60-1.30) Random Glucose 147 MG/DL (74-106) Total Protein 6.9 GM/DL (6.4-8.2) Albumin 2.7 GM/DL (3.4-5.0) Calcium Level 8.3 MG/DL (8.5-10.1) Alkaline Phosphatase 74 U/L (45-117) Aspartate Amino Transf (AST/SGOT) 48 U/L (15-37) Alanine Aminotransferase (ALT/SGPT) 35 U/L (12-78) Total Bilirubin 1.7 MG/DL (0.2-1.0) Sodium Level 143 MEQ/L (136-145) Potassium Level 3.6 MEQ/L (3.5-5.1) Chloride Level 111 MEQ/L (98-107) Carbon Dioxide Level 23.9 MEQ/L (21.0-32.0) Anion Gap 8 MEQ/L (5-15) Estimat Glomerular Filtration Rate 134 ML/MIN (>89) Procalcitonin 0.11 ng/mL (0.00-0.50) Test 05/18/17 06:20 White Blood Count 5.6 TH/MM3 (4.0-11.0) Red Blood Count 3.02 MIL/MM3 (4.50-5.90) Hemoglobin 9.6 GM/DL (13.0-17.0) Hematocrit 28.8 % (39.0-51.0) Mean Corpuscular Volume 95.3 FL (80.0-100.0) Mean Corpuscular Hemoglobin 31.6 PG (27.0-34.0) Mean Corpuscular Hemoglobin Concent 33.2 % (32.0-36.0) Red Cell Distribution Width 18.8 % (11.6-17.2) Platelet Count 138 TH/MM3 (150-450) Mean Platelet Volume 8.7 FL (7.0-11.0) Neutrophils (%) (Auto) 78.7 % (16.0-70.0) Lymphocytes (%) (Auto) 11.1 % (9.0-44.0) Monocytes (%) (Auto) 7.9 % (0.0-8.0) Eosinophils (%) (Auto) 1.5 % (0.0-4.0) Basophils (%) (Auto) 0.8 % (0.0-2.0) Neutrophils # (Auto) 4.4 TH/MM3 (1.8-7.7) Lymphocytes # (Auto) 0.6 TH/MM3 (1.0-4.8) Monocytes # (Auto) 0.4 TH/MM3 (0-0.9) Eosinophils # (Auto) 0.1 TH/MM3 (0-0.4) Basophils # (Auto) 0.0 TH/MM3 (0-0.2) CBC Comment DIFF FINAL Differential Comment Blood Urea Nitrogen 9 MG/DL (7-18) Creatinine 0.59 MG/DL (0.60-1.30) Random Glucose 183 MG/DL (74-106) Total Protein 6.6 GM/DL (6.4-8.2) Albumin 2.8 GM/DL (3.4-5.0) Calcium Level 8.0 MG/DL (8.5-10.1) Alkaline Phosphatase 79 U/L (45-117) Aspartate Amino Transf (AST/SGOT) 66 U/L (15-37) Alanine Aminotransferase (ALT/SGPT) 45 U/L (12-78) Total Bilirubin 1.7 MG/DL (0.2-1.0) Sodium Level 139 MEQ/L (136-145) Potassium Level 3.5 MEQ/L (3.5-5.1) Chloride Level 105 MEQ/L (98-107) Carbon Dioxide Level 27.5 MEQ/L (21.0-32.0) Anion Gap 7 MEQ/L (5-15) Estimat Glomerular Filtration Rate 142 ML/MIN (>89) Result Diagram: 05/18/17 0620 05/18/17 0620 Imaging Last Impressions Abdomen Ultrasound 05/15/17 0000 Signed Impressions: Service Date/Time: Monday, May 15, 2017 08:05 - CONCLUSION: Limited abdominal ultrasound with the patient being combative during the examination. The liver is diffusely abnormal with coarsening of echotexture and a nodular liver surface likely from cirrhosis. There is moderate ascites seen around the liver. Raúl Garay MD Chest X-Ray 05/13/17 0000 Signed Impressions: Service Date/Time: April 19:01 - CONCLUSION: 1. Interim extubation. 2. Left perihilar/infrahilar consolidation. 3. Patchy mild bilateral airspace opacities. 4. Small left pleural effusion. Raúl Greene MD Assessment and Plan Disease Oriented Problem List: (1) UGIB (upper gastrointestinal bleed) (2) Hepatocellular carcinoma (3) Anemia requiring transfusions (4) Liver cirrhosis (5) Hepatic encephalopathy (6) Ascites (7) Portal vein thrombosis Symptom Scale: (1) Pain 0-10 Scale: Unable to quantify (2) Abdominal distention 0-10 Scale: Unable to quantify Pertinent Non-Medical Issues Psychosocial: Single. Supported by parents (Ramya and Vance). Has 1 son (Azael) that lives in [place]. Spiritual: Legal: Ethical issues impacting care: . Important Contacts * Olivia Ness, parents/HCS; [phone] or [phone] . Prognosis Mr. Arzola is a 56 year old male with ESLD and suspected hepatocellular carcinoma, not a candidate for systemic or local chemotherapy. . Code Status: Full Code Plan * Patient with intermittent confusion. Designated to health care surrogates parents Ramya and/or Vance Arzola on 05/17/17. No Living will. * FULL CODE * GOALS: pending discussion w parents. VM left again today, with palliative contact information. * SYMPTOMS: Pain: possible source include ESLD, ascites, edema, bedbound status. Reports chronic neuropathy to LE, no worse than usual.Is on scheduled lyrica, has prn norco 5, morphine 2mg available-- sparing requirements. Abdominal distention: due to ESLD, ascites. * Palliative care will continue to follow to assist with further clarification of treatment goals. . Attestation To help prompt me to consider important information that might be impacting today's encounter and assessment, information from prior notes written by myself or my colleagues may have been "brought forward" into today's note. My signature on this note, however, is an attestation that I personally performed the exam, history, and/or decision-making noted today, and, unless otherwise indicated, the interactions with patient, family, and staff as well as the review of records all occurred today. I also attest that the listed assessment and stated plan reflect my best clinical judgment today based on the combination of historical information, prior notes, and today's exam/ interactions. When time spent is documented, it refers only to time spent today by the signer, or if indicated, combined time spent today by collaborating physician/nurse practitioner. Bridgette Santiago May 18, 2017 11:20
--- NOTE | 2017-05-18 11:33 | HHI.PR ---
Subjective Remarks specialist physician Notes: 56 year old male. Date of admission 05/13/2017. Past medical history includes hepatitis C, EtOH, portal hypertension, liver cirrhosis, diabetes mellitus septic, hypertension and sacral decubitus ulcers. Patient was a 05/04 to [facility] with no like stools. Previous diagnoses grade 4 esophageal varices. He received intravenous pantoprazole, Sandostatin ceftriaxone. On 05/05, patient developed massive hematemesis and hemorrhagic shock for intubated transfusion 5 RBCs. EGD was performed with banding of 3 varices. The stomach and onto unable to be evaluated. I was consulted but not considered to be a candidate due to portal vein thrombosis and was therefore transferred to [facility].At that facility, he arrived 05/08 on pantoprazole, Sandostatin and ceftriaxone. His medications were discontinued 05/10. Antibiotics were transitioned to piperacillin/tazobactam eventually to cefepime. Discontinued date 05/14. He was extubated 05/12. Patient was found to have likely hepatocellular carcinoma on CT. There are questionable multifocal arterial lesions likely consistent with this diagnosis. MR liver was to be performed but no information sent.. TIPS is contraindicated with portal vein thrombosis/cancer therefore patient was transferred back. Currently , patient is currently resting in bed in no acute distress 05/14 Patient is lying in bed in NAD. Afebrile. Hospitalist Notes: 05/17: soil fertility specialist following for Probable hepatocellular carcinoma, was recommended to get Palliative care consult and awaiting for the patient to be more stable and if family wishes for further testing for MRI of the Liver, seen in his bedroom and discussed with nurse Miss Viera asking for rectal tube for removal but GI specialist CORPORATE COMMUNICATIONS MANAGER in to see the patient will leave this decision to GI specialist. No other complaint. 05/18: Seen in his bedroom and discussed with nurse Miss Viera, no new complaint. continue management as per GI specialist. Objective Vital Signs Date Time Temp Pulse Resp B/P (MAP) Pulse Ox O2 Delivery O2 Flow Rate FiO2 05/18/17 10:00 66 05/18/17 08:00 75 05/18/17 08:00 97.9 75 13 146/81 (102) 95 05/18/17 06:00 64 05/18/17 05:07 12 05/18/17 04:00 98.4 78 18 149/77 (101) 96 05/18/17 04:00 78 05/18/17 02:00 59 05/18/17 00:00 98.8 64 17 137/64 (88) 93 05/18/17 00:00 64 05/17/17 22:00 71 05/17/17 21:00 94 21 05/17/17 20:00 99.6 67 16 177/79 (111) 91 05/17/17 20:00 67 05/17/17 18:00 66 05/17/17 16:14 100 Nasal Cannula 4 05/17/17 16:00 69 05/17/17 16:00 98.4 69 18 160/77 (104) 92 05/17/17 14:00 65 05/17/17 12:00 98.3 64 17 142/72 (95) 94 05/17/17 12:00 64 I/O 05/17/17 05/17/17 05/17/17 05/18/17 05/18/17 05/18/17 07:00 15:00 23:00 07:00 15:00 23:00 Intake Total 122 ml 820 ml 340 ml Output Total 500 ml 2100 ml 1150 ml Balance -378 ml -1280 ml -810 ml Intake Oral 720 ml 240 ml IV Total 122 ml 100 ml 100 ml Output Urine Total 450 ml 2050 ml 1100 ml Stool Total 50 ml 50 ml 50 ml Result Diagram: 05/18/17 0620 05/18/17 0620 Imaging Last Impressions Abdomen Ultrasound 05/15/17 0000 Signed Impressions: Service Date/Time: Monday, May 15, 2017 08:05 - CONCLUSION: Limited abdominal ultrasound with the patient being combative during the examination. The liver is diffusely abnormal with coarsening of echotexture and a nodular liver surface likely from cirrhosis. There is moderate ascites seen around the liver. Raúl Garay MD Chest X-Ray 05/13/17 0000 Signed Impressions: Service Date/Time: April 19:01 - CONCLUSION: 1. Interim extubation. 2. Left perihilar/infrahilar consolidation. 3. Patchy mild bilateral airspace opacities. 4. Small left pleural effusion. Raúl Greene MD Procedures None Other Results Laboratory Tests Test 05/13/17 17:49 05/13/17 23:48 05/14/17 04:49 05/14/17 05:00 Nasal Screen MRSA (PCR) MRSA NOT DETECTED Fibrinogen 168 mg/dL Blood Urea Nitrogen 16 MG/DL 15 MG/DL Creatinine 0.64 MG/DL 0.57 MG/DL Random Glucose 239 MG/DL 237 MG/DL Total Protein 6.5 GM/DL 6.6 GM/DL Albumin 2.4 GM/DL 2.3 GM/DL Calcium Level 8.1 MG/DL 8.1 MG/DL Phosphorus Level 2.0 MG/DL 2.6 MG/DL Magnesium Level 2.2 MG/DL 2.1 MG/DL Alkaline Phosphatase 84 U/L 81 U/L Aspartate Amino Transf (AST/SGOT) 48 U/L 49 U/L Alanine Aminotransferase (ALT/SGPT) 37 U/L 38 U/L Total Bilirubin 2.0 MG/DL 2.0 MG/DL Direct Bilirubin 1.1 MG/DL Sodium Level 145 MEQ/L 145 MEQ/L Potassium Level 3.4 MEQ/L 3.6 MEQ/L Chloride Level 114 MEQ/L 114 MEQ/L Carbon Dioxide Level 22.6 MEQ/L 23.9 MEQ/L Indirect Bilirubin 0.9 MG/DL Total Creatine Kinase 99 U/L Lipase 212 U/L Activated Partial Thromboplast Time 28.5 SEC Lactic Acid Level 1.5 mmol/L Ammonia 27 MCMOL/L Urine Yeast (Budding) FEW Test 05/15/17 08:55 05/15/17 13:35 05/16/17 03:45 05/16/17 17:13 Tumor Marker Alpha Fetoprotein 3.1 NG/ML Urine Color LIGHT-YELLOW Urine Turbidity CLEAR Urine pH 5.5 Urine Specific [place] 1.007 Urine Protein NEG mg/dL Urine Glucose (UA) NEG mg/dL Urine Ketones NEG mg/dL Urine Occult Blood TRACE Urine Nitrite NEG Urine Bilirubin NEG Urine Urobilinogen LESS THAN 2.0 MG/DL Urine Leukocyte Esterase NEG Urine RBC 2 /hpf Urine WBC LESS THAN 1 /hpf Urine Hyaline Casts 1 /lpf Urine Mucus FEW /lpf Microscopic Urinalysis Comment CULT NOT INDICATED Prothrombin Time 13.6 SEC Prothromb Time International Ratio 1.2 RATIO Procalcitonin 0.11 ng/mL Test 05/18/17 06:20 White Blood Count 5.6 TH/MM3 Red Blood Count 3.02 MIL/MM3 Hemoglobin 9.6 GM/DL Hematocrit 28.8 % Mean Corpuscular Volume 95.3 FL Mean Corpuscular Hemoglobin 31.6 PG Mean Corpuscular Hemoglobin Concent 33.2 % Red Cell Distribution Width 18.8 % Platelet Count 138 TH/MM3 Mean Platelet Volume 8.7 FL Neutrophils (%) (Auto) 78.7 % Lymphocytes (%) (Auto) 11.1 % Monocytes (%) (Auto) 7.9 % Eosinophils (%) (Auto) 1.5 % Basophils (%) (Auto) 0.8 % Neutrophils # (Auto) 4.4 TH/MM3 Lymphocytes # (Auto) 0.6 TH/MM3 Monocytes # (Auto) 0.4 TH/MM3 Eosinophils # (Auto) 0.1 TH/MM3 Basophils # (Auto) 0.0 TH/MM3 CBC Comment DIFF FINAL Differential Comment Blood Urea Nitrogen 9 MG/DL Creatinine 0.59 MG/DL Random Glucose 183 MG/DL Total Protein 6.6 GM/DL Albumin 2.8 GM/DL Calcium Level 8.0 MG/DL Alkaline Phosphatase 79 U/L Aspartate Amino Transf (AST/SGOT) 66 U/L Alanine Aminotransferase (ALT/SGPT) 45 U/L Total Bilirubin 1.7 MG/DL Sodium Level 139 MEQ/L Potassium Level 3.5 MEQ/L Chloride Level 105 MEQ/L Carbon Dioxide Level 27.5 MEQ/L Anion Gap 7 MEQ/L Estimat Glomerular Filtration Rate 142 ML/MIN Objective Remarks GENERAL: Well-nourished, well-developed patient. More alert SKIN: Warm and dry. HEAD: Normocephalic. EYES: No scleral icterus. No injection or drainage. NECK: Supple, trachea midline. No JVD or lymphadenopathy. LYMPHATIC: No adenopathy. CARDIOVASCULAR: Regular rate and rhythm without murmurs. RESPIRATORY: Breath sounds equal bilaterally. No accessory muscle use. GASTROINTESTINAL: Abdomen soft, distended, non-tender. EXTREMITIES: No cyanosis, diffuse edema. MUSCULOSKELETAL: Adequate muscle tone. NEUROLOGICAL: No obvious focal deficit. Awake, alert, and oriented to self and place Medications and IVs Current Medications Medications (Trade) Dose Ordered Sig/Jez Route Start Time Stop Time Status Last Admin (Buspar) 10 mg TID PO 05/14/17 09:00 05/18/17 09:19 (Tums Chew) 500 mg DAILY PRN CHEW 05/13/17 18:15 (Protonix) 40 mg BID PO 05/13/17 21:00 05/18/17 09:19 (Inderal) 10 mg Q12HR PO 05/13/17 21:00 05/18/17 09:19 (Xifaxan) 550 mg BID PO 05/13/17 21:00 05/18/17 09:19 (Aldactone) 100 mg DAILY PO 05/14/17 09:00 05/18/17 09:19 (Flomax) 0.8 mg DAILY PO 05/14/17 09:00 05/18/17 09:19 (Lyrica) 300 mg TID PO 05/14/17 09:00 05/18/17 09:19 (NS Flush) 2 ml UNSCH PRN IV FLUSH 05/13/17 18:30 05/15/17 10:25 (NS Flush) 2 ml BID IV FLUSH 05/13/17 21:00 05/18/17 09:19 (Tylenol) 650 mg Q6H PRN PO 05/13/17 18:30 (Ciales 5-325 Mg) 1 tab Q4H PRN PO 05/13/17 18:30 05/16/17 14:10 (Morphine Inj) 2 mg Q2H PRN IV PUSH 05/13/17 18:30 05/18/17 05:02 (Tears Naturale Opth Soln) 1 drop TID EACH EYE 05/14/17 09:00 05/16/17 13:00 (Zofran Inj) 4 mg Q6H PRN IV PUSH 05/13/17 18:30 (Albuterol Neb) 2.5 mg Q2HR NEB PRN INH 05/13/17 18:30 Miscellaneous Information 1 Q361D XX 05/13/17 18:30 05/13/17 19:00 (Chlorhexidine 2% Cloth) 3 pack Taper DAILY@04 TOP 05/14/17 04:00 05/10/18 03:59 05/14/17 04:00 (Chlorhexidine 2% Cloth) 3 pack UNSCH PRN TOP 05/13/17 18:30 (Sarahi-Colace) 1 tab BID PO 05/13/17 21:00 05/17/17 21:59 (Milk Of Magnesia Liq) 30 ml Q12H PRN PO 05/13/17 18:30 (Senokot) 17.2 mg Q12H PRN PO 05/13/17 18:30 (Dulcolax Supp) 10 mg DAILY PRN RECTAL 05/13/17 18:30 (Lactulose Liq) 30 ml DAILY PRN PO 05/13/17 18:30 (D50w (Vial) Inj) 50 ml UNSCH PRN IV 05/13/17 18:30 (Glucagon Inj) 1 mg UNSCH PRN OTHER 05/13/17 18:30 (NovoLIN R SUPPLEMENTAL SCALE) 1 ACHS SLIDING SCALE SQ 05/13/17 21:00 05/18/17 09:40 (Lactulose Liq) 30 ml DAILY PO 05/14/17 09:00 05/18/17 09:18 Cefepime HCl 2000 mg/Sodium Chloride 100 ml @ 200 mls/hr Q8H IV 05/13/17 20:00 05/18/17 05:01 (Tylenol) 650 mg Q6H PRN PO 05/13/17 18:30 ([place]iales 5-325 Mg) 1 tab Q4H PRN PO 05/13/17 18:30 (Morphine Inj) 2 mg Q2H PRN IV PUSH 05/13/17 18:30 Potassium Chloride 100 ml @ 50 mls/hr Q2H PRN IV 05/13/17 18:30 Potassium Chloride 100 ml @ 50 mls/hr Q2H PRN IV 05/13/17 18:30 (K-Lyte Cl Eff) 50 meq UNSCH PRN PO 05/13/17 18:30 Potassium Chloride 100 ml @ 25 mls/hr UNSCH PRN IV 05/13/17 18:30 Potassium Chloride 100 ml @ 50 mls/hr Q2H PRN IV 05/13/17 18:30 Magnesium Sulfate 4 gm/Sodium Chloride 100 ml @ 50 mls/hr UNSCH PRN IV 05/13/17 18:30 (Mag-Ox) 800 mg UNSCH PRN PO 05/13/17 18:30 Magnesium Sulfate 2 gm/Sodium Chloride 100 ml @ 50 mls/hr UNSCH PRN IV 05/13/17 18:30 (K-Phos) 2,000 mg Q4H PRN PO 05/13/17 18:30 Sodium Phosphate 30 mmol/Sodium Chloride 250 ml @ 42 mls/hr UNSCH PRN IV 05/13/17 18:30 (K-Phos) 2,000 mg UNSCH PRN PO/TUBE 05/13/17 18:30 Potassium Phosphate 30 mmol/ Sodium Chloride 260 ml @ 42 mls/hr UNSCH PRN IV 05/13/17 18:30 05/14/17 02:00 (Albumin 25% Inj) 25 gm Q12H IV 05/14/17 21:00 05/18/17 09:18 (Lasix Inj) 40 mg DAILY IV PUSH 05/15/17 11:15 05/18/17 09:19 (Santyl Oint) 1 applic DAILY TOPICAL 05/17/17 12:45 05/18/17 09:18 A/P Assessment and Plan 56 year old male. Originally admitted to [facility] on 05/04, had developed massive hematemesis and hemorrhagic shock, necessitating intubation and multiple blood transfusions. He was deemed not be a candidate for TIPs at this facility secondary to history portal vein occlusion in the liver hilum with reconstitution of parenchymal portal vein branches on CT scan 09/17/16. He was then transferred to [facility] for possible TIPS procedure. While at [facility], he was found hepatocellular carcinoma on CT and sent back here since TIPS was contraindicated w/ possible portal vein thrombosis/cancer. Currently awaiting palliative consult (wednesday). Upper GI bleed from grade 4 esophageal varices status post banding 3 05/05 Hepatitis C IIIa scheduled for ribavirin 200 mg and Sofosbuvir/Velpatasvir therapy 400 mg/100 mg History of portal vein thrombosis Likely hepatocellular carcinoma Elevated ammonia Liver cirrhosis from EtOH and hepatitis C Abdominal ascites Continue pantoprazole Continue Xifaxan and lactulose . Not a candidate for TIPS secondary to portal vein thrombosis and multifocal arterially enhancing lesions concerning for diffuse HCC. Speech eval, diet per speech Ascites - likely from hepatic insufficiency, noted on US Hepatocellular carcinoma on CT - palliative care has been consulted. oncology following, not candidate for any procedure or management. Continue propranolol Continue Aldactone GI considering paracentesis but not yet recommended. History of HCAP ESBL+ Patient previously on ceftriaxone for upper GI bleed. On cefepime Check sputum cx - not done, may not be necessary since patient is not coughing, no fever noted over the last 48 hours, we'll obtain pro-calcitonin and discontinue cefepime if within normal limits Depression History of alcohol dependence History of hepatic encephalopathy Diabetic neuropathy Chronic pain syndrome hydrocodone/acetaminophen at home for pain management Morphine sulfate for pain management. Continue buspirone 10 mg by mouth 3 times a day/home medication Continue Pregabalin 300 mg by mouth 3 times a day/home medication for diabetic neuropathy. BPH Continue tamsulosin 0.8 milligrams by mouth daily Diabetes mellitus with neuropathy Sliding scale insulin with Accu-Cheks to maintain euglycemia/low regimen with meals/at bedtime with Novulin R Unstable sacral decubitus ulcer Wound care evaluate and treat Incentive spirometry while awake Albuterol/Atrovent every 4 hours with albuterol aerosols every 2 hours as needed Dyspnea - DVT - SCD/pharmacological prophylaxis contra indicated with GI bleed No changes to anterior assessment. Discharge Planning Once cleared by specialists. Matt Sagastume MD May 18, 2017 11:33
--- NOTE | 2017-05-18 18:13 | PD.ONC.PN ---
Subjective Subjective Remarks More alert today.. No abdominal pain. No bleeding noted. Objective Data Date Time Temp Pulse Resp B/P (MAP) Pulse Ox O2 Delivery O2 Flow Rate FiO2 05/18/17 16:00 98.9 67 11 117/64 (81) 93 05/18/17 16:00 67 05/18/17 14:00 78 05/18/17 12:00 64 05/18/17 12:00 99.0 64 16 146/72 (96) 93 05/18/17 10:00 66 05/18/17 08:00 75 05/18/17 08:00 97.9 75 13 146/81 (102) 95 05/18/17 06:00 64 05/18/17 05:07 12 05/18/17 04:00 98.4 78 18 149/77 (101) 96 05/18/17 04:00 78 05/18/17 02:00 59 05/18/17 00:00 98.8 64 17 137/64 (88) 93 05/18/17 00:00 64 05/17/17 22:00 71 05/17/17 21:00 94 21 05/17/17 20:00 99.6 67 16 177/79 (111) 91 05/17/17 20:00 67 05/18/17 05/18/17 05/18/17 07:00 15:00 23:00 Intake Total 340 ml 200 ml Output Total 1150 ml Balance -810 ml 200 ml Result Diagram: 05/18/17 0620 05/18/17 0620 Laboratory Results Laboratory Tests Test 05/18/17 06:20 White Blood Count 5.6 TH/MM3 Red Blood Count 3.02 MIL/MM3 Hemoglobin 9.6 GM/DL Hematocrit 28.8 % Mean Corpuscular Volume 95.3 FL Mean Corpuscular Hemoglobin 31.6 PG Mean Corpuscular Hemoglobin Concent 33.2 % Red Cell Distribution Width 18.8 % Platelet Count 138 TH/MM3 Mean Platelet Volume 8.7 FL Neutrophils (%) (Auto) 78.7 % Lymphocytes (%) (Auto) 11.1 % Monocytes (%) (Auto) 7.9 % Eosinophils (%) (Auto) 1.5 % Basophils (%) (Auto) 0.8 % Neutrophils # (Auto) 4.4 TH/MM3 Lymphocytes # (Auto) 0.6 TH/MM3 Monocytes # (Auto) 0.4 TH/MM3 Eosinophils # (Auto) 0.1 TH/MM3 Basophils # (Auto) 0.0 TH/MM3 CBC Comment DIFF FINAL Differential Comment Blood Urea Nitrogen 9 MG/DL Creatinine 0.59 MG/DL Random Glucose 183 MG/DL Total Protein 6.6 GM/DL Albumin 2.8 GM/DL Calcium Level 8.0 MG/DL Alkaline Phosphatase 79 U/L Aspartate Amino Transf (AST/SGOT) 66 U/L Alanine Aminotransferase (ALT/SGPT) 45 U/L Total Bilirubin 1.7 MG/DL Sodium Level 139 MEQ/L Potassium Level 3.5 MEQ/L Chloride Level 105 MEQ/L Carbon Dioxide Level 27.5 MEQ/L Anion Gap 7 MEQ/L Estimat Glomerular Filtration Rate 142 ML/MIN Administered Medications Medications (Trade) Dose Ordered Sig/Jez Route PRN Reason Start Time Stop Time Status Last Admin Dose Admin Buspirone HCl (Buspar) 10 mg TID PO 05/14/17 09:00 05/18/17 17:49 Pantoprazole Sodium (Protonix) 40 mg BID PO 05/13/17 21:00 05/18/17 09:19 Propranolol HCl (Inderal) 10 mg Q12HR PO 05/13/17 21:00 05/18/17 09:19 Rifaximin (Xifaxan) 550 mg BID PO 05/13/17 21:00 05/18/17 09:19 Spironolactone (Aldactone) 100 mg DAILY PO 05/14/17 09:00 05/18/17 09:19 Tamsulosin HCl (Flomax) 0.8 mg DAILY PO 05/14/17 09:00 05/18/17 09:19 Pregabalin (Lyrica) 300 mg TID PO 05/14/17 09:00 05/18/17 17:49 Sodium Chloride (NS Flush) 2 ml UNSCH PRN IV FLUSH FLUSH AFTER USING IV ACCESS 05/13/17 18:30 05/15/17 10:25 Sodium Chloride (NS Flush) 2 ml BID IV FLUSH 05/13/17 21:00 05/18/17 09:19 Acetaminophen/ Hydrocodone Bitart ([place] 5-325 Mg) 1 tab Q4H PRN PO PAIN SCALE 1 TO 5 05/13/17 18:30 05/16/17 14:10 Morphine Sulfate (Morphine Inj) 2 mg Q2H PRN IV PUSH PAIN SCALE 6 TO 10 05/13/17 18:30 05/18/17 12:54 Artificial Tears (Tears Naturale Opth Soln) 1 drop TID EACH EYE 05/14/17 09:00 05/16/17 13:00 Miscellaneous Information 1 Q361D XX 05/13/17 18:30 05/13/17 19:00 Chlorhexidine Gluconate (Chlorhexidine 2% Cloth) 3 pack Taper DAILY@04 TOP 05/14/17 04:00 05/10/18 03:59 05/14/17 04:00 Senna/Docusate Sodium (Sarahi-Colace) 1 tab BID PO 05/13/17 21:00 05/17/17 21:59 Insulin Human Regular (NovoLIN R SUPPLEMENTAL SCALE) 1 ACHS SLIDING SCALE SQ 05/13/17 21:00 05/18/17 17:51 Lactulose (Lactulose Liq) 30 ml DAILY PO 05/14/17 09:00 05/18/17 09:18 Cefepime HCl 2000 mg/Sodium Chloride 100 ml @ 200 mls/hr Q8H IV 05/13/17 20:00 05/18/17 12:00 Potassium Phosphate 30 mmol/ Sodium Chloride 260 ml @ 42 mls/hr UNSCH PRN IV SEE LABEL COMMENTS 05/13/17 18:30 05/14/17 02:00 Albumin Human (Albumin 25% Inj) 25 gm Q12H IV 05/14/17 21:00 05/18/17 09:18 Furosemide (Lasix Inj) 40 mg DAILY IV PUSH 05/15/17 11:15 05/18/17 09:19 Collagenase (Santyl Oint) 1 applic DAILY TOPICAL 05/17/17 12:45 05/18/17 09:18 Objective Remarks GENERAL: Well-nourished, well-developed patient. Weak SKIN: Warm and dry. HEAD: Normocephalic. EYES: No scleral icterus. No injection or drainage. NECK: Supple, trachea midline. No JVD or lymphadenopathy. LYMPHATIC: No adenopathy. CARDIOVASCULAR: Regular rate and rhythm without murmurs. RESPIRATORY: Breath sounds equal bilaterally. No accessory muscle use. GASTROINTESTINAL: Abdomen soft, non-tender, distended. EXTREMITIES: No cyanosis, + diffuse edema. MUSCULOSKELETAL: Adequate muscle tone. NEUROLOGICAL: No obvious focal deficit. Awake, alert, and oriented x3. Assessment/Plan Problem List: (1) Hepatocellular carcinoma ICD Codes: C22.0 - Liver cell carcinoma Plan: --Questionable hepatocellular carcinoma. --While he was at [facility] reportedly the CT showed lesion concerning for multifocal hepatocellular carcinoma. --His last alpha-fetoprotein in August was only 4.1, repeat AFp 3.1 --will need MRI for further differentiation, not able to do MRI with eovist in the hospital -- If he indeed had hepatocellular carcinoma he is not a candidate for any systemic therapy or local therapy due to his poor performance status. (2) UGIB (upper gastrointestinal bleed) ICD Codes: K92.2 - Gastrointestinal hemorrhage, unspecified Status: Acute Plan: --Recurrent GI bleed due to esophageal varices. --had multiple banding. --no more melanotic stool. Hgb stable. GI is following. Assessment 56y/o male with hepatitis C and cirrhosis. Oncology consulted to render opinion regarding patient with possible hepatocellular carcinoma. h/o Hepatitis C, cirrhosis. Portal hypertension. Portal vein thrombosis.Alcohol abuse.Diabetes mellitus, hypertension. Sacral decubitus ulcer.Recurrent GI bleed. Esophageal varices.Hyperlipidemia.Osteoarthritis.Neuropathy. Encephalopathy. Multiple paracenteses, colonoscopy and upper endoscopy. Esophageal varices banding. Appendectomy. Liver biopsy. Plan 1. Pt more alert today, talk to him and he wants to have the MRI to further evaluate the liver. Discussed with radiology, not able to get MRI with eovist, radiology recommend MRI with liver protocol. 2. monitor CBC 3. supportive care Frank Tavarez MD May 18, 2017 18:13
[2017-05-19] VITALS (12 sets, daily range): BP systolic 116–169; BP diastolic 60–82; PULSE 68–104; RESP 13–24; TEMP 96.6–99.1; O2SAT 91–97
[2017-05-19] MEDS: CHLORHEXIDINE GLUCONATE 2 % 1 PACK (2 CLOTHS) TOP SCH (04:00)
[2017-05-19] MEDS: CEFEPIME INJ 2,000 MG in SODIUM CHLORIDE 0.9% INJ 100 ML IV SCH ×3 (04:22→21:03)
[2017-05-19] MEDS: MORPHINE SULFATE 4 MG/ML INJ IV PUSH PRN ×4 (06:54→21:02)
[2017-05-19] MEDS: INSULIN NovoLIN REGULAR SUPPLEMENTAL SCALE SQ SCH ×4 (08:15→21:33)
[2017-05-19] MEDS: PANTOPRAZOLE SOD 40 MG DELAYED RELEASE TAB PO SCH ×2 (08:16→21:02)
[2017-05-19] MEDS: SPIRONOLACTONE 100 MG TAB PO SCH (08:16)
[2017-05-19] MEDS: TAMSULOSIN HCL 0.4 MG CAP PO SCH (08:16)
[2017-05-19] MEDS: ALBUMIN HUMAN 25% 25 GM/100 ML BAGP IV SCH ×2 (08:16→21:03)
[2017-05-19] MEDS: FUROSEMIDE 40 MG/4 ML VIAL IV PUSH SCH (08:16)
[2017-05-19] MEDS: PROPRANOLOL HCL 10 MG TAB PO SCH ×2 (08:17→21:02)
[2017-05-19] MEDS: PREGABALIN 100 MG CAP PO SCH ×3 (08:17→18:32)
[2017-05-19] MEDS: busPIRone HCL 10 MG TAB PO SCH ×3 (08:17→18:27)
[2017-05-19] MEDS: RIFAXIMIN 550 MG TAB PO SCH ×2 (08:17→23:43)
[2017-05-19] MEDS: DOCUSATE SODIUM 50 MG/SENNA 8.6 MG TAB PO SCH ×2 (09:00→21:02)
[2017-05-19] MEDS: ARTIFICIAL TEARS OPTH SOLN 15 ML BTL EACH EYE SCH ×3 (09:00→18:00)
[2017-05-19] MEDS: LACTULOSE SYRUP 20 GM/30 ML CUP PO SCH (09:00)
[2017-05-19] MEDS: RESP: ALBUTEROL 2.5 MG/3 ML NEB (PRN) INH (09:04)
[2017-05-19] MEDS: SODIUM CHLORIDE 0.9% FLUSH 10 ML FLUSH IV FLUSH SCH ×2 (10:02→21:04)
[2017-05-19] MEDS: COLLAGENASE OINT 30 GM TUBE TOPICAL SCH (10:02)
[2017-05-19] MEDS ORDERED: GADODIAMIDE PF 287 MG/ML 20 ML VIAL (for RAD MRI) IVCONTRAST ONE (11:50)
--- NOTE | 2017-05-19 13:16 | RADRPT ---
EXAM DATE/TIME: 05/19/2017 11:16 [facility] COMPARISON: US ABDOMEN - COMPLETE, May 15, 2017, 8:05. INDICATIONS : Cirrhosis. Abnormal ultrasound. CONTRAST: 17 cc Omniscan (gadodiamide) IV MEDICAL HISTORY : Hepatitis C. Cirrhosis. Diabetes mellitus type 2. Esophageal varicies. SURGICAL HISTORY : Right clavicle. Hand surgery. ENCOUNTER: Subsequent ACUITY: 4-6 days PAIN SCORE: 0/10 LOCATION: abdomen. TECHNIQUE: Multiplanar, multisequence magnetic resonance imaging of the abdomen was performed without and with i ntravenous contrast. FINDINGS: LIVER: Measures 16.6 cm. No fat or iron deposition is present. There is a lobulated contour with right lobe and central atrophy characteristic of cirrhosis. No T2 hyperintense lesions are seen and no lesions w ith increased diffusion signal identified. The arterial phase demonstrates very heterogeneous enhance ment of the liver likely partially related to the portal vein thrombosis. In the anterior right liver within segment 5 there is a subcapsular nodular area of arterial hyperenhancement measuring 13 mm th at is not seen on any subsequent series. Within segment 4 there is a somewhat nodular 18 mm area of e nhancement that is not clearly identified on any of the remaining sequences. There is complete throm bosis of the main portal vein and left and right portal vein branches extending into the liver. Hepat ic veins appear patent. There is periportal collateralization of the hepatic arteries. BILIARY: There is no intra- or extra-hepatic biliary ductal dilatation. Gallbladder contains no stones. SPLEEN: Spleen is enlarged measuring 17.5 cm. PANCREAS: No acute abnormality. ADRENALS: Within normal limits. KIDNEYS: Normal size and signal intensity. There is no hydronephrosis or mass. OTHER: Aorta is nonaneurysmal. There is no lymphadenopathy. There is moderate volume of free fluid within th e abdomen and pelvis. There are gastric varices and there is a recannulized paraumbilical vein. CONCLUSION: 1. Cirrhotic liver with completely thrombosed portal vein including the main portal vein and right an d left intrahepatic branches. I do not see a enhancing mass or definite enhancement within the thromb us to indicate tumor thrombus. Therefore, this may be bland thrombus. 2. No suspicious lesion is identified within the liver. There are 2 nodular areas of arterial hyperen hancement that are not seen on the subsequent series suggesting that these may represent atypical nod ules. Attention should be paid to these at followup imaging. 3. Findings indicative of portal hypertension including splenomegaly, ascites, and varices. Raúl Rsoenthal MD on May 19, 2017 at 13:02 Board Certified Radiologist. This report was verified electronically.
--- NOTE | 2017-05-19 13:25 | HHI.GIFU ---
Subjective Remarks Up in chair. C/O worsening abdominal distention, requesting paracentesis. No n /v. Tolerating diet. Flexiseal out- using bedside commode. Had MRI today, results pending. (Yumiko Vale) Objective Vitals I&O Vital Signs Date Time Temp Pulse Resp B/P (MAP) Pulse Ox O2 Delivery O2 Flow Rate FiO2 05/19/17 10:00 73 05/19/17 09:59 18 05/19/17 08:00 97.8 72 14 131/67 (88) 93 05/19/17 08:00 72 05/19/17 06:00 68 05/19/17 04:00 98.9 69 13 121/60 (80) 92 05/19/17 04:00 69 05/19/17 02:00 70 05/19/17 00:00 70 05/19/17 00:00 99.1 70 20 116/71 (86) 93 05/18/17 22:00 80 05/18/17 20:00 71 05/18/17 20:00 99.6 71 11 106/53 (70) 91 05/18/17 18:00 92 05/18/17 16:00 98.9 67 11 117/64 (81) 93 05/18/17 16:00 67 05/18/17 14:00 78 I/O 05/18/17 05/18/17 05/18/17 05/19/17 05/19/17 05/19/17 07:00 15:00 23:00 07:00 15:00 23:00 Intake Total 340 ml 200 ml 720 ml 820 ml Output Total 1150 ml 1450 ml 975 ml Balance -810 ml 200 ml -730 ml -155 ml Intake Oral 240 ml 720 ml 720 ml IV Total 100 ml 200 ml 100 ml Output Urine Total 1100 ml 1450 ml 875 ml Stool Total 50 ml 100 ml # Bowel Movements 1 Imaging Last Impressions Abdomen Ultrasound 05/15/17 0000 Signed Impressions: Service Date/Time: Monday, May 15, 2017 08:05 - CONCLUSION: Limited abdominal ultrasound with the patient being combative during the examination. The liver is diffusely abnormal with coarsening of echotexture and a nodular liver surface likely from cirrhosis. There is moderate ascites seen around the liver. Raúl Garay MD Chest X-Ray 05/13/17 0000 Signed Impressions: Service Date/Time: April 19:01 - CONCLUSION: 1. Interim extubation. 2. Left perihilar/infrahilar consolidation. 3. Patchy mild bilateral airspace opacities. 4. Small left pleural effusion. Raúl Greene MD Physical Exam HEENT: Normocephalic; atraumatic; + jaundice. CHEST: Resp. even/unlabored, diminished CARDIAC: RRR ABDOMEN: Soft, distention with moderate to large amount ascites, hepatosplenomegaly; bowel sounds are present EXTREMITIES:BLE edema. SKIN: + jaundice. CHAINMAN: Lethargic, oriented to self, place, month (Yumiko Vale) Assessment and Plan Plan ASSESSMENT: - Upper GIB secondary to esophageal varices. EGD (05/05/17)----> There was a nipple sign on a large distal varix and that seems to be where the bleeding was from. 4 bands applied on 3 varices. Bleeding seemed controlled. There was a great deal of blood in the upper stomach. The stomach and duodenum could not be examined further, cannot rule out gastric varices. He was treated with octreotide and protonix drips and IR was consulted for evaluation for TIPS procedure. However, he was deemed not be a candidate at this facility secondary to history portal vein occlusion in the liver hilum with reconstitution of parenchymal portal vein branches on CT scan 09/17/16. He was then transferred to [facility] for possible TIPS procedure. While at [facility], he was found to likely have hepatocellular carcinoma on CT. There were questionable multifocal arterial lesions likely consistent with this diagnosis. MR liver was to be performed but no information sent. TIPS is contraindicated with portal vein thrombosis/cancer therefore patient was transferred back to this facility. No obvious active bleeding. HH stable. PPI, Inderal. - Anemia, acute blood loss. S/P recent EGD with band ligation as above. HH stable. - Coagulopathy. Stable. 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 No ETOH x 6 years. On tx with Epclusa /ribavirin as outpatient. Per [facility], HCC suspected, not a transplant candidate. AFP 3.1. MRI when more stable. Oncology following. - Suspected hepatocellular carcinoma, per [facility]. Per imaging at [facility] (CT scan, MRI) CT Abdomen liver three phase with ivcon (05/09/17)---> cirrhotic liver with thrombosis of the portal vein. Expansion and arterial enhancement of the intrahepatic and extrahepatic portal venous system with apparent washout on delyaed imaging concerning for tumor thrombus from diffuse HCC. Multifocal arterial enhancing lesions, concerning for diffuse HCC. Equivocal arterially enhancing lesions may represent dysplastic nodules. Furthermore, given the discordant findings of flow within the portal vein on the patient's ultrasound. Recommend further evaluation with multiphase liver protocol MRI. Small volume ascites and splenomegaly consistent with portal hypertension. Multifocal pneumonia with small bilateral pleural effusions. I reviewed the records from [facility], but did not see where an MRI was performed. AFP 3.1. Oncology following, Palliative care following. MRI was done today, but the results are pending. . - Portal vein thrombosis. Seen on above CT at [facility]. - Hepatitis C, Genotype 3a. On Epclusa as outpatient. - Hepatic encephalopathy. Lethargic, but oriented x 3 Lactulose, Xifaxan - Ascites. Pt with significant abdominal distention, US (05/15/17)---> Limited US with the patient being combative during the examination. The liver is diffusely abnormal with coarsening of echotexture and a nodular liver surface, likely from cirrhosis. There is moderate ascites seen around the liver. No fevers, chills. He has slightly more distention today and discomfort related to ascites, requesting paracentesis. Aldactone. Lasix, Albumin Cefepime. - Respiratory failure, PNA, Pleural effusion. On n/c. Cefepime - HTN, Hyperlipidemia, BPH, DM, Neuropathy, Sacral wound. PLAN: - Low sodium diet - Cont. Lasix - Cont. Albumin - Cont. Lasix - Cont. Protonix - Cont. Propranolol - Cont. Spironolactone - Cont. Lactulose - Cont. Xifaxan - Monitor CBC, PT/INR, CMP, Ammonia - Await MRI results (done, results pending) - Oncology following - Palliative care following - Supportive care - Further recommendations to follow based on results of above - Will discuss with Dr. Menon paracentesis. - Pt seen and examined by Dr. Menon and myself and this note is written on his behalf (Yumiko Vale) Physician Comments Patient seen and examined Agree with above Continue with current supportive care Monitor labs MRI seems to rule out hepatocellular carcinoma at this point We will continue with close monitoring diuretics and low-salt diet We will ask for paracentesis Patient needs to be on a low-salt diet (Romeo Menon MD) Yumiko Vale May 19, 2017 13:25 Romeo Menon MD May 19, 2017 20:43
--- NOTE | 2017-05-19 14:09 | HHI.PR ---
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 Date of admission 05/13/2017. Past medical history includes hepatitis C, EtOH, portal hypertension, liver cirrhosis, diabetes mellitus septic, hypertension and sacral decubitus ulcers. Patient was a 05/04 to [facility] with no like stools. Previous diagnoses grade 4 esophageal varices. He received intravenous pantoprazole, Sandostatin ceftriaxone. On 05/05, patient developed massive hematemesis and hemorrhagic shock for intubated transfusion 5 RBCs. EGD was performed with banding of 3 varices. The stomach and onto unable to be evaluated. I was consulted but not considered to be a candidate due to portal vein thrombosis and was therefore transferred to [facility].At that facility, he arrived 05/08 on pantoprazole, Sandostatin and ceftriaxone. His medications were discontinued 05/10. Antibiotics were transitioned to piperacillin/tazobactam eventually to cefepime. Discontinued date 05/14. He was extubated 05/12. Patient was found to have likely hepatocellular carcinoma on CT. There are questionable multifocal arterial lesions likely consistent with this diagnosis. MR liver was to be performed but no information sent.. TIPS is contraindicated with portal vein thrombosis/cancer therefore patient was transferred back. Currently , patient is currently resting in bed in no acute distress 05/14 Patient is lying in bed in NAD. Afebrile. Hospitalist Notes: 05/17: channel marketing specialist following for Probable hepatocellular carcinoma, was recommended to get Palliative care consult and awaiting for the patient to be more stable and if family wishes for further testing for MRI of the Liver, seen in his bedroom and discussed with nurse Miss Viera asking for rectal tube for removal but GI specialist OUTSOLE MOLDER in to see the patient will leave this decision to GI specialist. No other complaint. 05/18: Seen in his bedroom and discussed with nurse Miss Viera, no new complaint. continue management as per GI specialist. 05/19: Stable okay to transfer to Medical floor, remove Rosado cath. discussed with nurse. No nausea, vomit or diarrhea. Objective Vital Signs Date Time Temp Pulse Resp B/P (MAP) Pulse Ox O2 Delivery O2 Flow Rate FiO2 05/19/17 10:00 73 05/19/17 09:59 18 05/19/17 08:00 97.8 72 14 131/67 (88) 93 05/19/17 08:00 72 05/19/17 06:00 68 05/19/17 04:00 98.9 69 13 121/60 (80) 92 05/19/17 04:00 69 05/19/17 02:00 70 05/19/17 00:00 70 05/19/17 00:00 99.1 70 20 116/71 (86) 93 05/18/17 22:00 80 05/18/17 20:00 71 05/18/17 20:00 99.6 71 11 106/53 (70) 91 05/18/17 18:00 92 05/18/17 16:00 98.9 67 11 117/64 (81) 93 05/18/17 16:00 67 I/O 05/18/17 05/18/17 05/18/17 05/19/17 05/19/17 05/19/17 07:00 15:00 23:00 07:00 15:00 23:00 Intake Total 340 ml 200 ml 720 ml 820 ml Output Total 1150 ml 1450 ml 975 ml Balance -810 ml 200 ml -730 ml -155 ml Intake Oral 240 ml 720 ml 720 ml IV Total 100 ml 200 ml 100 ml Output Urine Total 1100 ml 1450 ml 875 ml Stool Total 50 ml 100 ml # Bowel Movements 1 Result Diagram: 05/18/1720 05/18/1720 Imaging Last Impressions Abdomen MRI 05/19/17 0000 Signed Impressions: Service Date/Time: Friday, May 19, 2017 11:16 - CONCLUSION: 1. Cirrhotic liver with completely thrombosed portal vein including the main portal vein and right and left intrahepatic branches. I do not see a enhancing mass or definite enhancement within the thrombus to indicate tumor thrombus. Therefore , this may be bland thrombus. 2. No suspicious lesion is identified within the liver. There are 2 nodular areas of arterial hyperenhancement that are not seen on the subsequent series suggesting that these may represent atypical nodules. Attention should be paid to these at followup imaging. 3. Findings indicative of portal hypertension including splenomegaly, ascites, and varices. Raúl Rosenthal MD Abdomen Ultrasound 05/15/17 0000 Signed Impressions: Service Date/Time: Monday, May 15, 2017 08:05 - CONCLUSION: Limited abdominal ultrasound with the patient being combative during the examination. The liver is diffusely abnormal with coarsening of echotexture and a nodular liver surface likely from cirrhosis. There is moderate ascites seen around the liver. Raúl Garay MD Chest X-Ray 05/13/17 0000 Signed Impressions: Service Date/Time: April 19:01 - CONCLUSION: 1. Interim extubation. 2. Left perihilar/infrahilar consolidation. 3. Patchy mild bilateral airspace opacities. 4. Small left pleural effusion. Raúl Greene MD Procedures None Other Results Laboratory Tests Test 05/13/17 17:49 05/13/17 23:48 05/14/17 04:49 05/14/17 05:00 Nasal Screen MRSA (PCR) MRSA NOT DETECTED Fibrinogen 168 mg/dL Blood Urea Nitrogen 16 MG/DL 15 MG/DL Creatinine 0.64 MG/DL 0.57 MG/DL Random Glucose 239 MG/DL 237 MG/DL Total Protein 6.5 GM/DL 6.6 GM/DL Albumin 2.4 GM/DL 2.3 GM/DL Calcium Level 8.1 MG/DL 8.1 MG/DL Phosphorus Level 2.0 MG/DL 2.6 MG/DL Magnesium Level 2.2 MG/DL 2.1 MG/DL Alkaline Phosphatase 84 U/L 81 U/L Aspartate Amino Transf (AST/SGOT) 48 U/L 49 U/L Alanine Aminotransferase (ALT/SGPT) 37 U/L 38 U/L Total Bilirubin 2.0 MG/DL 2.0 MG/DL Direct Bilirubin 1.1 MG/DL Sodium Level 145 MEQ/L 145 MEQ/L Potassium Level 3.4 MEQ/L 3.6 MEQ/L Chloride Level 114 MEQ/L 114 MEQ/L Carbon Dioxide Level 22.6 MEQ/L 23.9 MEQ/L Indirect Bilirubin 0.9 MG/DL Total Creatine Kinase 99 U/L Lipase 212 U/L Activated Partial Thromboplast Time 28.5 SEC Lactic Acid Level 1.5 mmol/L Ammonia 27 MCMOL/L Urine Yeast (Budding) FEW Test 05/15/17 08:55 05/15/17 13:35 05/16/17 03:45 05/16/17 17:13 Tumor Marker Alpha Fetoprotein 3.1 NG/ML Urine Color LIGHT-YELLOW Urine Turbidity CLEAR Urine pH 5.5 Urine Specific Quentin 1.007 Urine Protein NEG mg/dL Urine Glucose (UA) NEG mg/dL Urine Ketones NEG mg/dL Urine Occult Blood TRACE Urine Nitrite NEG Urine Bilirubin NEG Urine Urobilinogen LESS THAN 2.0 MG/DL Urine Leukocyte Esterase NEG Urine RBC 2 /hpf Urine WBC LESS THAN 1 /hpf Urine Hyaline Casts 1 /lpf Urine Mucus FEW /lpf Microscopic Urinalysis Comment CULT NOT INDICATED Prothrombin Time 13.6 SEC Prothromb Time International Ratio 1.2 RATIO Procalcitonin 0.11 ng/mL Test 05/18/17 06:20 White Blood Count 5.6 TH/MM3 Red Blood Count 3.02 MIL/MM3 Hemoglobin 9.6 GM/DL Hematocrit 28.8 % Mean Corpuscular Volume 95.3 FL Mean Corpuscular Hemoglobin 31.6 PG Mean Corpuscular Hemoglobin Concent 33.2 % Red Cell Distribution Width 18.8 % Platelet Count 138 TH/MM3 Mean Platelet Volume 8.7 FL Neutrophils (%) (Auto) 78.7 % Lymphocytes (%) (Auto) 11.1 % Monocytes (%) (Auto) 7.9 % Eosinophils (%) (Auto) 1.5 % Basophils (%) (Auto) 0.8 % Neutrophils # (Auto) 4.4 TH/MM3 Lymphocytes # (Auto) 0.6 TH/MM3 Monocytes # (Auto) 0.4 TH/MM3 Eosinophils # (Auto) 0.1 TH/MM3 Basophils # (Auto) 0.0 TH/MM3 CBC Comment DIFF FINAL Differential Comment Blood Urea Nitrogen 9 MG/DL Creatinine 0.59 MG/DL Random Glucose 183 MG/DL Total Protein 6.6 GM/DL Albumin 2.8 GM/DL Calcium Level 8.0 MG/DL Alkaline Phosphatase 79 U/L Aspartate Amino Transf (AST/SGOT) 66 U/L Alanine Aminotransferase (ALT/SGPT) 45 U/L Total Bilirubin 1.7 MG/DL Sodium Level 139 MEQ/L Potassium Level 3.5 MEQ/L Chloride Level 105 MEQ/L Carbon Dioxide Level 27.5 MEQ/L Anion Gap 7 MEQ/L Estimat Glomerular Filtration Rate 142 ML/MIN Objective Remarks GENERAL: Well-nourished, well-developed patient. More alert SKIN: Warm and dry. HEAD: Normocephalic. EYES: No scleral icterus. No injection or drainage. NECK: Supple, trachea midline. No JVD or lymphadenopathy. LYMPHATIC: No adenopathy. CARDIOVASCULAR: Regular rate and rhythm without murmurs. RESPIRATORY: Breath sounds equal bilaterally. No accessory muscle use. GASTROINTESTINAL: Abdomen soft, distended, non-tender. EXTREMITIES: No cyanosis, diffuse edema. MUSCULOSKELETAL: Adequate muscle tone. NEUROLOGICAL: No obvious focal deficit. Awake, alert, and oriented to self and place Medications and IVs Current Medications Medications (Trade) Dose Ordered Sig/Jez Route Start Time Stop Time Status Last Admin (Buspar) 10 mg TID PO 05/14/17 09:00 05/19/17 12:17 (Tums Chew) 500 mg DAILY PRN CHEW 05/13/17 18:15 (Protonix) 40 mg BID PO 05/13/17 21:00 05/19/17 08:16 (Inderal) 10 mg Q12HR PO 05/13/17 21:00 05/19/17 08:17 (Xifaxan) 550 mg BID PO 05/13/17 21:00 05/19/17 08:17 (Aldactone) 100 mg DAILY PO 05/14/17 09:00 05/19/17 08:16 (Flomax) 0.8 mg DAILY PO 05/14/17 09:00 05/19/17 08:16 (Lyrica) 300 mg TID PO 05/14/17 09:00 05/19/17 12:17 (NS Flush) 2 ml UNSCH PRN IV FLUSH 05/13/17 18:30 05/15/17 10:25 (NS Flush) 2 ml BID IV FLUSH 05/13/17 21:00 05/19/17 10:02 (Tylenol) 650 mg Q6H PRN PO 05/13/17 18:30 ([place] 5-325 Mg) 1 tab Q4H PRN PO 05/13/17 18:30 05/16/17 14:10 (Morphine Inj) 2 mg Q2H PRN IV PUSH 05/13/17 18:30 05/19/17 06:54 (Tears Naturale Opth Soln) 1 drop TID EACH EYE 05/14/17 09:00 05/16/17 13:00 (Zofran Inj) 4 mg Q6H PRN IV PUSH 05/13/17 18:30 (Albuterol Neb) 2.5 mg Q2HR NEB PRN INH 9/14/17 18:30 05/19/17 09:04 Miscellaneous Information 1 Q361D XX 05/13/17 18:30 05/13/17 19:00 (Chlorhexidine 2% Cloth) Taper DAILY@04 TOP 05/14/17 04:00 05/10/18 03:59 05/14/17 04:00 (Chlorhexidine 2% Cloth) 3 pack UNSCH PRN TOP 05/13/17 18:30 (Sarahi-Colace) 1 tab BID PO 05/13/17 21:00 05/18/17 21:02 (Milk Of Magnesia Liq) 30 ml Q12H PRN PO 05/13/17 18:30 (Senokot) 17.2 mg Q12H PRN PO 05/13/17 18:30 (Dulcolax Supp) 10 mg DAILY PRN RECTAL 05/13/17 18:30 (Lactulose Liq) 30 ml DAILY PRN PO 05/13/17 18:30 (D50w (Vial) Inj) 50 ml UNSCH PRN IV 05/13/17 18:30 (Glucagon Inj) 1 mg UNSCH PRN OTHER 05/13/17 18:30 (NovoLIN R SUPPLEMENTAL SCALE) 1 ACHS SLIDING SCALE SQ 05/13/17 21:00 05/19/17 12:25 (Lactulose Liq) 30 ml DAILY PO 05/14/17 09:00 05/18/17 09:18 Cefepime HCl 2000 mg/Sodium Chloride 100 ml @ 200 mls/hr Q8H IV 05/13/17 20:00 05/19/17 12:00 (Tylenol) 650 mg Q6H PRN PO 05/13/17 18:30 ([place] 5-325 Mg) 1 tab Q4H PRN PO 05/13/17 18:30 (Morphine Inj) 2 mg Q2H PRN IV PUSH 05/13/17 18:30 Potassium Chloride 100 ml @ 50 mls/hr Q2H PRN IV 05/13/17 18:30 Potassium Chloride 100 ml @ 50 mls/hr Q2H PRN IV 05/13/17 18:30 (K-Lyte Cl Eff) 50 meq UNSCH PRN PO 05/13/17 18:30 Potassium Chloride 100 ml @ 25 mls/hr UNSCH PRN IV 05/13/17 18:30 Potassium Chloride 100 ml @ 50 mls/hr Q2H PRN IV 05/13/17 18:30 Magnesium Sulfate 4 gm/Sodium Chloride 100 ml @ 50 mls/hr UNSCH PRN IV 05/13/17 18:30 (Mag-Ox) 800 mg UNSCH PRN PO 05/13/17 18:30 Magnesium Sulfate 2 gm/Sodium Chloride 100 ml @ 50 mls/hr UNSCH PRN IV 05/13/17 18:30 (K-Phos) 2,000 mg Q4H PRN PO 05/13/17 18:30 Sodium Phosphate 30 mmol/Sodium Chloride 250 ml @ 42 mls/hr UNSCH PRN IV 05/13/17 18:30 (K-Phos) 2,000 mg UNSCH PRN PO/TUBE 05/13/17 18:30 Potassium Phosphate 30 mmol/ Sodium Chloride 260 ml @ 42 mls/hr UNSCH PRN IV 05/13/17 18:30 05/14/17 02:00 (Albumin 25% Inj) 25 gm Q12H IV 05/14/17 21:00 05/19/17 08:16 (Lasix Inj) 40 mg DAILY IV PUSH 05/15/17 11:15 05/19/17 08:16 (Santyl Oint) 1 applic DAILY TOPICAL 05/17/17 12:45 05/19/17 10:02 A/P Assessment and Plan 56 year old male. Originally admitted to [facility] on 05/04, had developed massive hematemesis and hemorrhagic shock, necessitating intubation and multiple blood transfusions. He was deemed not be a candidate for TIPs at this facility secondary to history portal vein occlusion in the liver hilum with reconstitution of parenchymal portal vein branches on CT scan 09/17/16. He was then transferred to [facility] for possible TIPS procedure. While at [facility], he was found hepatocellular carcinoma on CT and sent back here since TIPS was contraindicated w/ possible portal vein thrombosis/cancer. Upper GI bleed from grade 4 esophageal varices status post banding 3 05/05 Hepatitis C IIIa scheduled for ribavirin 200 mg and Sofosbuvir/Velpatasvir therapy 400 mg/100 mg History of portal vein thrombosis Likely hepatocellular carcinoma Elevated ammonia Liver cirrhosis from EtOH and hepatitis C Abdominal ascites Continue pantoprazole Continue Xifaxan and lactulose . Not a candidate for TIPS secondary to portal vein thrombosis and multifocal arterially enhancing lesions concerning for diffuse HCC. Speech eval, diet per speech Ascites - likely from hepatic insufficiency, noted on US Hepatocellular carcinoma on CT - palliative care has been consulted. oncology following, not candidate for any procedure or management. Continue propranolol Continue Aldactone GI considering paracentesis but not yet recommended. Awaiting for MRI result History of HCAP ESBL+ Patient previously on ceftriaxone for upper GI bleed. On cefepime Check sputum cx - not done, may not be necessary since patient is not coughing, no fever noted over the last 48 hours, we'll obtain pro-calcitonin and discontinue cefepime if within normal limits Depression History of alcohol dependence History of hepatic encephalopathy Diabetic neuropathy Chronic pain syndrome hydrocodone/acetaminophen at home for pain management Morphine sulfate for pain management. Continue buspirone 10 mg by mouth 3 times a day/home medication Continue Pregabalin 300 mg by mouth 3 times a day/home medication for diabetic neuropathy. BPH Continue tamsulosin 0.8 milligrams by mouth daily Diabetes mellitus with neuropathy Sliding scale insulin with Accu-Cheks to maintain euglycemia/low regimen with meals/at bedtime with Novulin R Unstable sacral decubitus ulcer Wound care evaluate and treat Incentive spirometry while awake Albuterol/Atrovent every 4 hours with albuterol aerosols every 2 hours as needed Dyspnea - DVT - SCD/pharmacological prophylaxis contra indicated with GI bleed No changes to anterior assessment. Discharge Planning Once cleared by specialists. Matt Sagastume MD May 19, 2017 14:09
--- NOTE | 2017-05-19 16:34 | PD.ONC.PN ---
Subjective Subjective Remarks More alert. No abdominal pain, no melena. He wants to have the MRI. Objective Data Date Time Temp Pulse Resp B/P (MAP) Pulse Ox O2 Delivery O2 Flow Rate FiO2 05/19/17 10:00 73 05/19/17 09:59 18 05/19/17 08:00 97.8 72 14 131/67 (88) 93 05/19/17 08:00 72 05/19/17 06:00 68 05/19/17 04:00 98.9 69 13 121/60 (80) 92 05/19/17 04:00 69 05/19/17 02:00 70 05/19/17 00:00 70 05/19/17 00:00 99.1 70 20 116/71 (86) 93 05/18/17 22:00 80 05/18/17 20:00 71 05/18/17 20:00 99.6 71 11 106/53 (70) 91 05/18/17 18:00 92 05/19/17 05/19/17 05/19/17 07:00 15:00 23:00 Intake Total 820 ml Output Total 975 ml Balance -155 ml Result Diagram: 05/18/17 0620 05/18/17 0620 Imaging Studies Last 24 hours Impressions Abdomen MRI 05/19/17 0000 Signed Impressions: Service Date/Time: Friday, May 19, 2017 11:16 - CONCLUSION: 1. Cirrhotic liver with completely thrombosed portal vein including the main portal vein and right and left intrahepatic branches. I do not see a enhancing mass or definite enhancement within the thrombus to indicate tumor thrombus. Therefore , this may be bland thrombus. 2. No suspicious lesion is identified within the liver. There are 2 nodular areas of arterial hyperenhancement that are not seen on the subsequent series suggesting that these may represent atypical nodules. Attention should be paid to these at followup imaging. 3. Findings indicative of portal hypertension including splenomegaly, ascites, and varices. Raúl Rosenthal MD Administered Medications Medications (Trade) Dose Ordered Sig/Jez Route PRN Reason Start Time Stop Time Status Last Admin Dose Admin Buspirone HCl (Buspar) 10 mg TID PO 05/14/17 09:00 05/19/17 12:17 Pantoprazole Sodium (Protonix) 40 mg BID PO 05/13/17 21:00 05/19/17 08:16 Propranolol HCl (Inderal) 10 mg Q12HR PO 05/13/17 21:00 05/19/17 08:17 Rifaximin (Xifaxan) 550 mg BID PO 05/13/17 21:00 05/19/17 08:17 Spironolactone (Aldactone) 100 mg DAILY PO 05/14/17 09:00 05/19/17 08:16 Tamsulosin HCl (Flomax) 0.8 mg DAILY PO 05/14/17 09:00 05/19/17 08:16 Pregabalin (Lyrica) 300 mg TID PO 05/14/17 09:00 05/19/17 12:17 Sodium Chloride (NS Flush) 2 ml UNSCH PRN IV FLUSH FLUSH AFTER USING IV ACCESS 05/13/17 18:30 05/15/17 10:25 Sodium Chloride (NS Flush) 2 ml BID IV FLUSH 05/13/17 21:00 05/19/17 10:02 Acetaminophen/ Hydrocodone Bitart ([place] 5-325 Mg) 1 tab Q4H PRN PO PAIN SCALE 1 TO 5 05/13/17 18:30 05/16/17 14:10 Morphine Sulfate (Morphine Inj) 2 mg Q2H PRN IV PUSH PAIN SCALE 6 TO 10 05/13/17 18:30 05/19/17 06:54 Artificial Tears (Tears Naturale Opth Soln) 1 drop TID EACH EYE 05/14/17 09:00 05/16/17 13:00 Albuterol Sulfate (Albuterol Neb) 2.5 mg Q2HR NEB PRN INH SOB/WHEEZING 05/13/17 18:30 05/19/17 09:04 Miscellaneous Information 1 Q361D XX 05/13/17 18:30 05/13/17 19:00 Chlorhexidine Gluconate (Chlorhexidine 2% Cloth) Taper DAILY@04 TOP 05/14/17 04:00 05/10/18 03:59 05/14/17 04:00 Senna/Docusate Sodium (Sarahi-Colace) 1 tab BID PO 05/13/17 21:00 05/18/17 21:02 Insulin Human Regular (NovoLIN R SUPPLEMENTAL SCALE) 1 ACHS SLIDING SCALE SQ 05/13/17 21:00 05/19/17 12:25 Lactulose (Lactulose Liq) 30 ml DAILY PO 05/14/17 09:00 05/18/17 09:18 Cefepime HCl 2000 mg/Sodium Chloride 100 ml @ 200 mls/hr Q8H IV 05/13/17 20:00 05/19/17 12:00 Potassium Bicarb/ Potassium Chloride (K-Lyte Cl Eff) 50 meq UNSCH PRN PO For Potassium 3.3 - 3.5 mEq/L 05/13/17 18:30 05/19/17 15:24 Potassium Phosphate 30 mmol/ Sodium Chloride 260 ml @ 42 mls/hr UNSCH PRN IV SEE LABEL COMMENTS 05/13/17 18:30 05/14/17 02:00 Albumin Human (Albumin 25% Inj) 25 gm Q12H IV 05/14/17 21:00 05/19/17 08:16 Furosemide (Lasix Inj) 40 mg DAILY IV PUSH 05/15/17 11:15 05/19/17 08:16 Collagenase (Santyl Oint) 1 applic DAILY TOPICAL 05/17/17 12:45 05/19/17 10:02 Objective Remarks GENERAL: Well-nourished, well-developed patient. SKIN: Warm and dry. HEAD: Normocephalic. EYES: No scleral icterus. No injection or drainage. NECK: Supple, trachea midline. No JVD or lymphadenopathy. LYMPHATIC: No adenopathy. CARDIOVASCULAR: Regular rate and rhythm without murmurs. RESPIRATORY: Breath sounds equal bilaterally. No accessory muscle use. GASTROINTESTINAL: Abdomen soft, non-tender, distended, +BS EXTREMITIES: No cyanosis, or edema. MUSCULOSKELETAL: Adequate muscle tone. NEUROLOGICAL: No obvious focal deficit. Awake, alert, and oriented x3. PSYCHIATRIC: Appropriate mood and affect; insight and judgment normal. Assessment/Plan Problem List: (1) Hepatocellular carcinoma ICD Codes: C22.0 - Liver cell carcinoma Plan: --Questionable hepatocellular carcinoma. --While he was at [facility] reportedly the CT showed lesion concerning for multifocal hepatocellular carcinoma. --His last alpha-fetoprotein in August was only 4.1, repeat AFp 3.1 --will need MRI for further differentiation, not able to do MRI with eovist in the hospital. Discussed with radiology, the CT findings could be regenerating hepatic nodules. -- If he indeed had hepatocellular carcinoma he is not a candidate for any systemic therapy or local therapy due to his poor performance status. (2) UGIB (upper gastrointestinal bleed) ICD Codes: K92.2 - Gastrointestinal hemorrhage, unspecified Status: Acute Plan: --Recurrent GI bleed due to esophageal varices. --had multiple banding. --no more melanotic stool. Hgb stable. GI is following. Assessment 56y/o male with hepatitis C and cirrhosis. Oncology consulted to render opinion regarding patient with possible hepatocellular carcinoma. h/o Hepatitis C, cirrhosis. Portal hypertension. Portal vein thrombosis.Alcohol abuse.Diabetes mellitus, hypertension. Sacral decubitus ulcer.Recurrent GI bleed. Esophageal varices.Hyperlipidemia.Osteoarthritis.Neuropathy. Encephalopathy. Multiple paracenteses, colonoscopy and upper endoscopy. Esophageal varices banding. Appendectomy. Liver biopsy. Plan 1. MRI with liver protocol. 2. monitor CBC 3. supportive care Frank Tavarez MD May 19, 2017 16:34
--- NOTE | 2017-05-19 16:40 | PD.RAD ---
Post US Procedure Prog Note Pre Procedure Diagnosis: (1) Ascites Post Procedure Diagnosis: (1) Ascites Procedure Date: May 19, 2017 Supervising Radiologist: Raúl Rosenthal Estimated blood loss: none Anesthesia: Local Plan of Activity Patient to Unit: ROPU Patient Condition: Fair See PACS Report for procedural detail/treatment Drainage Procedure Procedure 1 Imaging Guidance: Ultrasound Side: Right Procedure Type: Paracentesis Drainage: Suction Fluid Description: Clear, Yellow Findings: see dictated procedure note for volume removed. Plan Albumin and monitoring after procedure then return to floor Raúl Rosenthal MD May 19, 2017 16:40
[2017-05-19] MEDS ORDERED: ALBUMIN HUMAN 25% 25 GM/100 ML BAGP IV ONE (16:45)
[2017-05-19 20:00] LABS: PERITONEAL HISTIOCYTES 4 %; PERITONEAL LYMPHS 42 %; PERITONEAL MESOTHELIAL 1 %; PERITONEAL MONOS 43 %; PERITONEAL POLYS(SEGS) 10 %
[2017-05-19 20:02] LABS: PERITONEAL WBC 289 /MM3 (0-10)
[2017-05-20] VITALS: BP 136/72; PULSE 98; RESP 18; TEMP 97.2; O2SAT 92
[2017-05-20] MEDS: MORPHINE SULFATE 4 MG/ML INJ IV PUSH PRN ×5 (01:20→22:57)
[2017-05-20] MEDS: CHLORHEXIDINE GLUCONATE 2 % 1 PACK (2 CLOTHS) TOP SCH (03:58)
[2017-05-20 04:00] VITALS: BP 147/73; PULSE 72; RESP 16; TEMP 97.3; O2SAT 97
[2017-05-20] MEDS: CEFEPIME INJ 2,000 MG in SODIUM CHLORIDE 0.9% INJ 100 ML IV SCH ×3 (04:00→22:56)
--- NOTE | 2017-05-20 07:17 | RADRPT ---
EXAM DATE/TIME: 05/19/2017 16:16 [place] COMPARISON: US GUIDED ABD PARACENTESIS, February 23, 2017, 10:38. INDICATIONS : Ascites. MEDICAL HISTORY : Hypercholesterolemia. Hepatitis C. Confusion. Diabetic neuropathy. HTN. Dyspnea. Ulcer. Hematuria. D iabetes. Liver disease. Ascites. Anticoagulant therapy, Aspirin. ESBL. SURGICAL HISTORY : Tonsillectomy. Appendectomy. Paracentesis. Previous pins placed and removed to hands. Right clavicul ar metal plate. Blood transfusions. ENCOUNTER: Subsequent ACUITY: 3 months PAIN SCORE: 3/10 LOCATION: Right lower quadrant FLUID: Total volume of 4500 cc of clear, yellow fluid was removed. Fluid was sent to lab for ordered studies. Post procedure scanning reveals no hematoma or other complication. TECHNIQUE: 1. Ultrasound guidance for abdominal paracentesis. 2. Paracentesis. The risks, benefits, and alternatives to ultrasound guided paracentesis were explained to the patient in detail including the risk of bleeding and infection. Written and verbal informed consent was obt ained. With the patient on the ultrasound table, ultrasound imaging was used to select the most appropriate approach for paracentesis. Overlying skin was prepped and draped in the usual sterile fashion and wi th a local anesthetic, a dermatotomy was made with an 11 blade scalpel. A 6 [place] [id number] ca theter was introduced into the peritoneal cavity and fluid was collected. The patient tolerated the procedure well and left the ultrasound suite in stable condition. CONCLUSION: Uncomplicated ultrasound guided paracentesis. Raúl Rosenthal MD on May 20, 2017 at 7:08 Board Certified Radiologist. This report was verified electronically.
[2017-05-20 07:50] VITALS: BP 106/70; PULSE 71; RESP 20; TEMP 97.4; O2SAT 96
--- NOTE | 2017-05-20 07:52 | PD.ONC.PN ---
Subjective Subjective Remarks Feels better after paracentesis. No abdominal pain. No more melena Objective Data Date Time Temp Pulse Resp B/P (MAP) Pulse Ox O2 Delivery O2 Flow Rate FiO2 05/20/17 04:00 97.3 72 16 147/73 (97) 97 05/20/17 00:00 97.2 98 18 136/72 (93) 92 05/19/17 20:00 96.6 104 20 141/79 (99) 91 05/19/17 17:30 97.9 69 20 169/70 (103) 97 05/19/17 16:30 99.1 75 16 144/82 (102) 96 05/19/17 16:00 98.4 78 24 128/69 (88) 93 05/19/17 16:00 73 05/19/17 14:00 69 05/19/17 13:00 98.1 80 21 125/60 (81) 94 05/19/17 13:00 80 05/19/17 10:00 73 05/19/17 09:59 18 05/19/17 08:00 97.8 72 14 131/67 (88) 93 05/19/17 08:00 72 05/20/17 05/20/17 05/20/17 07:00 15:00 23:00 Intake Total 480 ml Output Total 1400 ml Balance -920 ml Result Diagram: 05/18/17 0620 05/18/17 0620 Laboratory Results Laboratory Tests Test 05/19/17 16:45 Peritoneal Fluid WBC 289 /MM3 Peritoneal Fluid RBC 20 /MM3 Peritoneal Fluid Neutrophils 10 % Peritoneal Fluid Lymphocytes 42 % Peritoneal Fluid Monocytes 43 % Peritoneal Fluid Histiocytes 4 % Peritoneal Fluid Mesothelial Cells 1 % Peritoneal Fluid Comment Peritoneal Fluid Total Protein 1.3 GM/DL Peritoneal Fluid Albumin 0.7 G/DL Peritoneal Fluid Glucose 243 MG/DL Culture Results Microbiology Date/Time Source Procedure Growth Status 05/19/17 16:45 Fluid Peritoneal Fluid Gram Stain Pending Received 05/19/17 16:45 Fluid Peritoneal Fluid Body Fluid Culture Pending Received Administered Medications Medications (Trade) Dose Ordered Sig/Jez Route PRN Reason Start Time Stop Time Status Last Admin Dose Admin Buspirone HCl (Buspar) 10 mg TID PO 05/14/17 09:00 05/19/17 18:27 Pantoprazole Sodium (Protonix) 40 mg BID PO 05/13/17 21:00 05/19/17 21:02 Propranolol HCl (Inderal) 10 mg Q12HR PO 05/13/17 21:00 05/19/17 21:02 Rifaximin (Xifaxan) 550 mg BID PO 05/13/17 21:00 05/19/17 08:17 Spironolactone (Aldactone) 100 mg DAILY PO 05/14/17 09:00 05/19/17 08:16 Tamsulosin HCl (Flomax) 0.8 mg DAILY PO 05/14/17 09:00 05/19/17 08:16 Pregabalin (Lyrica) 300 mg TID PO 05/14/17 09:00 05/19/17 18:32 Sodium Chloride (NS Flush) 2 ml UNSCH PRN IV FLUSH FLUSH AFTER USING IV ACCESS 05/13/17 18:30 05/15/17 10:25 Sodium Chloride (NS Flush) 2 ml BID IV FLUSH 05/13/17 21:00 05/19/17 21:04 Acetaminophen/ Hydrocodone Bitart ([place] 5-325 Mg) 1 tab Q4H PRN PO PAIN SCALE 1 TO 5 05/13/17 18:30 05/16/17 14:10 Morphine Sulfate (Morphine Inj) 2 mg Q2H PRN IV PUSH PAIN SCALE 6 TO 10 05/13/17 18:30 05/20/17 05:16 Artificial Tears (Tears Naturale Opth Soln) 1 drop TID EACH EYE 05/14/17 09:00 05/16/17 13:00 Albuterol Sulfate (Albuterol Neb) 2.5 mg Q2HR NEB PRN INH SOB/WHEEZING 05/13/17 18:30 05/19/17 09:04 Miscellaneous Information 1 Q361D XX 05/13/17 18:30 05/13/17 19:00 Chlorhexidine Gluconate (Chlorhexidine 2% Cloth) Taper DAILY@04 TOP 05/14/17 04:00 05/10/18 03:59 05/20/17 03:58 Senna/Docusate Sodium (Sarahi-Colace) 1 tab BID PO 05/13/17 21:00 05/19/17 21:02 Insulin Human Regular (NovoLIN R SUPPLEMENTAL SCALE) 1 ACHS SLIDING SCALE SQ 05/13/17 21:00 05/19/17 21:33 Lactulose (Lactulose Liq) 30 ml DAILY PO 05/14/17 09:00 05/18/17 09:18 Cefepime HCl 2000 mg/Sodium Chloride 100 ml @ 200 mls/hr Q8H IV 05/13/17 20:00 05/20/17 04:00 Potassium Bicarb/ Potassium Chloride (K-Lyte Cl Eff) 50 meq UNSCH PRN PO For Potassium 3.3 - 3.5 mEq/L 05/13/17 18:30 05/19/17 15:24 Potassium Phosphate 30 mmol/ Sodium Chloride 260 ml @ 42 mls/hr UNSCH PRN IV SEE LABEL COMMENTS 05/13/17 18:30 05/14/17 02:00 Albumin Human (Albumin 25% Inj) 25 gm Q12H IV 05/14/17 21:00 05/19/17 21:03 Furosemide (Lasix Inj) 40 mg DAILY IV PUSH 05/15/17 11:15 05/19/17 08:16 Collagenase (Santyl Oint) 1 applic DAILY TOPICAL 05/17/17 12:45 05/19/17 10:02 Objective Remarks GENERAL: Well-nourished, well-developed patient. SKIN: Warm and dry. HEAD: Normocephalic. EYES: No scleral icterus. No injection or drainage. NECK: Supple, trachea midline. No JVD or lymphadenopathy. LYMPHATIC: No adenopathy. CARDIOVASCULAR: Regular rate and rhythm without murmurs. RESPIRATORY: Breath sounds equal bilaterally. No accessory muscle use. GASTROINTESTINAL: Abdomen softer, non-tender,distended. EXTREMITIES: No cyanosis, + edema. MUSCULOSKELETAL: Adequate muscle tone. NEUROLOGICAL: No obvious focal deficit. Awake, alert, and oriented x3. PSYCHIATRIC: Appropriate mood and affect; insight and judgment normal. Assessment/Plan Problem List: (1) Hepatocellular carcinoma ICD Codes: C22.0 - Liver cell carcinoma Plan: --Questionable hepatocellular carcinoma. MRI showed 2 small nonspecific nodules likely regenerating nodules but no suspicious HCC. 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 --While he was at [facility] reportedly the CT showed lesion concerning for multifocal hepatocellular carcinoma. --His last alpha-fetoprotein in August was only 4.1, repeat AFP 3.1 --will need MRI for further differentiation, not able to do MRI with eovist in the hospital. Discussed with radiology, the CT findings could be regenerating hepatic nodules. -- If he indeed had hepatocellular carcinoma he is not a candidate for any systemic therapy or local therapy due to his poor performance status. (2) UGIB (upper gastrointestinal bleed) ICD Codes: K92.2 - Gastrointestinal hemorrhage, unspecified Status: Acute Plan: --Recurrent GI bleed due to esophageal varices. --had multiple banding. --no more melanotic stool. Hgb stable. GI is following. Assessment 56y/o male with hepatitis C and cirrhosis. Oncology consulted to render opinion regarding patient with possible hepatocellular carcinoma. h/o Hepatitis C, cirrhosis. Portal hypertension. Portal vein thrombosis.Alcohol abuse.Diabetes mellitus, hypertension. Sacral decubitus ulcer.Recurrent GI bleed. Esophageal varices.Hyperlipidemia.Osteoarthritis.Neuropathy. Encephalopathy. Multiple paracenteses, colonoscopy and upper endoscopy. Esophageal varices banding. Appendectomy. Liver biopsy. Plan 1. Reviewed MRI with patient. No suspicious HCC. No other oncologic w/u necessary at this time, recommend outpatient followup with his GI/solar energy technician to monitor the liver. I will sign off. Frank Tavarez MD May 20, 2017 07:52
[2017-05-20] MEDS: INSULIN NovoLIN REGULAR SUPPLEMENTAL SCALE SQ SCH ×4 (08:00→22:12)
[2017-05-20] MEDS: PANTOPRAZOLE SOD 40 MG DELAYED RELEASE TAB PO SCH ×2 (08:20→21:50)
[2017-05-20] MEDS: busPIRone HCL 10 MG TAB PO SCH ×3 (08:20→18:15)
[2017-05-20] MEDS: PROPRANOLOL HCL 10 MG TAB PO SCH ×2 (08:20→21:50)
[2017-05-20] MEDS: TAMSULOSIN HCL 0.4 MG CAP PO SCH (08:21)
[2017-05-20] MEDS: SPIRONOLACTONE 100 MG TAB PO SCH (08:21)
[2017-05-20] MEDS: FUROSEMIDE 40 MG/4 ML VIAL IV PUSH SCH (08:21)
[2017-05-20] MEDS: PREGABALIN 100 MG CAP PO SCH ×3 (08:21→18:15)
[2017-05-20] MEDS: DOCUSATE SODIUM 50 MG/SENNA 8.6 MG TAB PO SCH ×2 (08:21→21:50)
[2017-05-20] MEDS: ARTIFICIAL TEARS OPTH SOLN 15 ML BTL EACH EYE SCH ×3 (08:22→14:06)
[2017-05-20] MEDS: ALBUMIN HUMAN 25% 25 GM/100 ML BAGP IV SCH ×2 (08:22→21:50)
[2017-05-20] MEDS: RIFAXIMIN 550 MG TAB PO SCH ×2 (08:22→21:50)
[2017-05-20] MEDS: SODIUM CHLORIDE 0.9% FLUSH 10 ML FLUSH IV FLUSH SCH ×2 (08:22→21:51)
[2017-05-20] MEDS: LACTULOSE SYRUP 20 GM/30 ML CUP PO SCH (08:25)
[2017-05-20] MEDS: COLLAGENASE OINT 30 GM TUBE TOPICAL SCH (08:41)
[2017-05-20 11:50] VITALS: BP 150/71; PULSE 67; RESP 20; TEMP 96.6; O2SAT 95
--- NOTE | 2017-05-20 14:03 | HHI.GIFU ---
Subjective Remarks Resting in bed. Feeling much better since he had fluid drained. Reports that he has had 8 solid stools since the rectal tube was removed. (Yumiko Vale) Objective Vitals I&O Vital Signs Date Time Temp Pulse Resp B/P (MAP) Pulse Ox O2 Delivery O2 Flow Rate FiO2 05/20/17 04:00 97.3 72 16 147/73 (97) 97 05/20/17 00:00 97.2 98 18 136/72 (93) 92 05/19/17 20:00 96.6 104 20 141/79 (99) 91 05/19/17 17:30 97.9 69 20 169/70 (103) 97 05/19/17 16:30 99.1 75 16 144/82 (102) 96 05/19/17 16:00 98.4 78 24 128/69 (88) 93 05/19/17 16:00 73 05/19/17 14:00 69 I/O 05/19/17 05/19/17 05/19/17 05/20/17 05/20/17 05/20/17 07:00 15:00 23:00 07:00 15:00 23:00 Intake Total 820 ml 480 ml Output Total 975 ml 1100 ml 1400 ml Balance -155 ml -1100 ml -920 ml Intake Oral 720 ml 480 ml IV Total 100 ml Output Urine Total 875 ml 1100 ml 1400 ml Stool Total 100 ml # Bowel Movements 1 Laboratory Laboratory Tests Test 05/19/17 16:45 Peritoneal Fluid WBC 289 Peritoneal Fluid RBC 20 Peritoneal Fluid Neutrophils 10 Peritoneal Fluid Lymphocytes 42 Peritoneal Fluid Monocytes 43 Peritoneal Fluid Histiocytes 4 Peritoneal Fluid Mesothelial Cells 1 Peritoneal Fluid Comment Peritoneal Fluid Total Protein 1.3 Peritoneal Fluid Albumin 0.7 Peritoneal Fluid Glucose 243 Date/Time Source Procedure Growth Status 05/19/17 16:45 Fluid Peritoneal Fluid Gram Stain - Final Resulted 05/19/17 16:45 Fluid Peritoneal Fluid Body Fluid Culture - Preliminary NO GROWTH IN 24 HOURS. Resulted Imaging Last Impressions Cyst Biopsy Asp-Paracentesis US 05/19/17 0000 Signed Impressions: Service Date/Time: Friday, May 19, 2017 16:16 - CONCLUSION: Uncomplicated ultrasound guided paracentesis. Raúl Rosenthal MD Abdomen MRI 05/19/17 0000 Signed Impressions: Service Date/Time: Friday, May 19, 2017 11:16 - CONCLUSION: 1. Cirrhotic liver with completely thrombosed portal vein including the main portal vein and right and left intrahepatic branches. I do not see a enhancing mass or definite enhancement within the thrombus to indicate tumor thrombus. Therefore , this may be bland thrombus. 2. No suspicious lesion is identified within the liver. There are 2 nodular areas of arterial hyperenhancement that are not seen on the subsequent series suggesting that these may represent atypical nodules. Attention should be paid to these at followup imaging. 3. Findings indicative of portal hypertension including splenomegaly, ascites, and varices. Raúl Rosenthal MD Abdomen Ultrasound 05/15/17 0000 Signed Impressions: Service Date/Time: Monday, May 15, 2017 08:05 - CONCLUSION: Limited abdominal ultrasound with the patient being combative during the examination. The liver is diffusely abnormal with coarsening of echotexture and a nodular liver surface likely from cirrhosis. There is moderate ascites seen around the liver. Raúl Garay MD Chest X-Ray 05/13/17 0000 Signed Impressions: Service Date/Time: April 19:01 - CONCLUSION: 1. Interim extubation. 2. Left perihilar/infrahilar consolidation. 3. Patchy mild bilateral airspace opacities. 4. Small left pleural effusion. Raúl Greene MD Physical Exam HEENT: Normocephalic; atraumatic; + jaundice. CHEST: Resp. even/unlabored, diminished CARDIAC: RRR ABDOMEN: Soft, distention with moderate to large amount ascites, hepatosplenomegaly; bowel sounds are present EXTREMITIES:BLE edema. SKIN: + jaundice. TUB ATTENDANT: Lethargic, oriented to self, place, month (Yumiko Vale [facility]) Assessment and Plan Plan ASSESSMENT: - Upper GIB secondary to esophageal varices. EGD (05/05/17)----> There was a nipple sign on a large distal varix and that seems to be where the bleeding was from. 4 bands applied on 3 varices. Bleeding seemed controlled. There was a great deal of blood in the upper stomach. The stomach and duodenum could not be examined further, cannot rule out gastric varices. He was treated with octreotide and protonix drips and IR was consulted for evaluation for TIPS procedure. However, he was deemed not be a candidate at this facility secondary to history portal vein occlusion in the liver hilum with reconstitution of parenchymal portal vein branches on CT scan 09/17/16. He was then transferred to [facility] for possible TIPS procedure. While at [facility], he was found to likely have hepatocellular carcinoma on CT. There were questionable multifocal arterial lesions likely consistent with this diagnosis. MR liver was to be performed but no information sent. TIPS is contraindicated with portal vein thrombosis/cancer therefore patient was transferred back to this facility. No obvious active bleeding. HH stable. PPI, Inderal. - Anemia, acute blood loss. S/P recent EGD with band ligation as above. HH stable. - Coagulopathy. Stable. 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 No ETOH x 6 years. On tx with Epclusa /ribavirin as outpatient. Per [facility], HCC suspected, not a transplant candidate. AFP 3.1. MRI when more stable. Oncology following. - Suspected hepatocellular carcinoma, per [facility]. Per imaging at [facility] (CT scan, MRI) CT Abdomen liver three phase with ivcon (05/09/17)---> cirrhotic liver with thrombosis of the portal vein. Expansion and arterial enhancement of the intrahepatic and extrahepatic portal venous system with apparent washout on delyaed imaging concerning for tumor thrombus from diffuse HCC. Multifocal arterial enhancing lesions, concerning for diffuse HCC. Equivocal arterially enhancing lesions may represent dysplastic nodules. Furthermore, given the discordant findings of flow within the portal vein on the patient's ultrasound. Recommend further evaluation with multiphase liver protocol MRI. Small volume ascites and splenomegaly consistent with portal hypertension. Multifocal pneumonia with small bilateral pleural effusions. I reviewed the records from [facility], but did not see where an MRI was performed. AFP 3.1. MRI (05/19/17)----> Cirrhotic liver with completely thrombosed portal vein including the main portal vein and right and left intrahepatic branches. I do not see a enhancing mass or definite enhancement within the thrombus to indicate tumor thrombus. Therefore, this may be blad thrombus. No suspicious lesion is identified within the lier. There are 2 nodular areas of arterial hyperenhancement that are not seen on the subsequent series suggesting that these may represent atypical nodules. Attention should be paid to these at followup imaging. Findings indicative of portal hypertension including splenomegaly, ascites, and varices. Oncology signed off, as there was no suspicious HCC on MRI and state that if he indeed did have HCC, he would not be a candidate for any systemic therapy or local therapy due to his poor performance status. Palliative care following. - Portal vein thrombosis. Seen on above CT at [facility]. - Hepatitis C, Genotype 3a. On Epclusa as outpatient. - Hepatic encephalopathy. Lethargic, but oriented x 3 Lactulose, Xifaxan - Ascites. Pt with significant abdominal distention, US (05/15/17)---> Limited US with the patient being combative during the examination. The liver is diffusely abnormal with coarsening of echotexture and a nodular liver surface, likely from cirrhosis. There is moderate ascites seen around the liver. No fevers, chills. S/P US Guided paracentesis (05/19/17)-- -> 4,500 removed. States more comfortable. Aldactone. Lasix, Albumin Cefepime. - Respiratory failure, PNA, Pleural effusion. On n/c. Cefepime - HTN, Hyperlipidemia, BPH, DM, Neuropathy, Sacral wound. PLAN: - Low sodium diet - Cont. Lasix - Cont. Albumin - Cont. Lasix - Cont. Protonix - Cont. Propranolol - Cont. Spironolactone - Cont. Lactulose - Cont. Xifaxan - Monitor labs - Palliative care following - Supportive care - Further recommendations to follow based on results of above - Pt seen and examined by Dr. Menon and myself and this note is written on his behalf (Yumiko Vale) Physician Comments Page seen and examined Agree with above Continue with current supportive care Monitor labs (Romeo Menon MD) Yumiko Vale May 20, 2017 14:03 Romeo Menon MD May 20, 2017 15:19
[2017-05-20 15:50] VITALS: BP 129/60; PULSE 70; RESP 20; TEMP 96.9; O2SAT 100
--- NOTE | 2017-05-20 16:08 | HHI.PR ---
Subjective Remarks [facility] specialist Notes: 56 year old male. Date of admission 05/13/2017. Past medical history includes hepatitis C, EtOH, portal hypertension, liver cirrhosis, diabetes mellitus septic, hypertension and sacral decubitus ulcers. Patient was a 05/04 to [facility] with no like stools. Previous diagnoses grade 4 esophageal varices. He received intravenous pantoprazole, Sandostatin ceftriaxone. On 05/05, patient developed massive hematemesis and hemorrhagic shock for intubated transfusion 5 RBCs. EGD was performed with banding of 3 varices. The stomach and onto unable to be evaluated. I was consulted but not considered to be a candidate due to portal vein thrombosis and was therefore transferred to [facility].At that facility, he arrived 05/08 on pantoprazole, Sandostatin and ceftriaxone. His medications were discontinued 05/10. Antibiotics were transitioned to piperacillin/tazobactam eventually to cefepime. Discontinued date 05/14. He was extubated 05/12. Patient was found to have likely hepatocellular carcinoma on CT. There are questionable multifocal arterial lesions likely consistent with this diagnosis. MR liver was to be performed but no information sent.. TIPS is contraindicated with portal vein thrombosis/cancer therefore patient was transferred back. Currently , patient is currently resting in bed in no acute distress 05/14 Patient is lying in bed in NAD. Afebrile. Hospitalist Notes: 05/17: operations specialist following for Probable hepatocellular carcinoma, was recommended to get Palliative care consult and awaiting for the patient to be more stable and if family wishes for further testing for MRI of the Liver, seen in his bedroom and discussed with nurse Miss Viera asking for rectal tube for removal but GI specialist [employer] in to see the patient will leave this decision to GI specialist. No other complaint. 05/18: Seen in his bedroom and discussed with nurse Miss Viera, no new complaint. continue management as per GI specialist. 05/19: Stable okay to transfer to Medical floor, remove Rosado cath. discussed with nurse. No nausea, vomit or diarrhea. 05/20: Seen in his bedroom stable no complaint, no nausea, vomit or diarrhea. Objective Vital Signs Date Time Temp Pulse Resp B/P (MAP) Pulse Ox O2 Delivery O2 Flow Rate FiO2 05/20/17 07:50 97.4 71 20 106/70 (82) 96 05/20/17 04:00 97.3 72 16 147/73 (97) 97 05/20/17 00:00 97.2 98 18 136/72 (93) 92 05/19/17 20:00 96.6 104 20 141/79 (99) 91 05/19/17 17:30 97.9 69 20 169/70 (103) 97 05/19/17 16:30 99.1 75 16 144/82 (102) 96 I/O 05/19/17 05/19/17 05/19/17 05/20/17 05/20/17 05/20/17 07:00 15:00 23:00 07:00 15:00 23:00 Intake Total 820 ml 480 ml Output Total 975 ml 1100 ml 1400 ml Balance -155 ml -1100 ml -920 ml Intake Oral 720 ml 480 ml IV Total 100 ml Output Urine Total 875 ml 1100 ml 1400 ml Stool Total 100 ml # Bowel Movements 1 Result Diagram: 05/18/17 0620 05/18/17 0620 Imaging Last Impressions Cyst Biopsy Asp-Paracentesis US 05/19/17 0000 Signed Impressions: Service Date/Time: Friday, May 19, 2017 16:16 - CONCLUSION: Uncomplicated ultrasound guided paracentesis. Rúal Rosenthal MD Abdomen MRI 05/19/17 0000 Signed Impressions: Service Date/Time: Friday, May 19, 2017 11:16 - CONCLUSION: 1. Cirrhotic liver with completely thrombosed portal vein including the main portal vein and right and left intrahepatic branches. I do not see a enhancing mass or definite enhancement within the thrombus to indicate tumor thrombus. Therefore , this may be bland thrombus. 2. No suspicious lesion is identified within the liver. There are 2 nodular areas of arterial hyperenhancement that are not seen on the subsequent series suggesting that these may represent atypical nodules. Attention should be paid to these at followup imaging. 3. Findings indicative of portal hypertension including splenomegaly, ascites, and varices. Raúl Rosenthal MD Abdomen Ultrasound 05/15/17 0000 Signed Impressions: Service Date/Time: Monday, May 15, 2017 08:05 - CONCLUSION: Limited abdominal ultrasound with the patient being combative during the examination. The liver is diffusely abnormal with coarsening of echotexture and a nodular liver surface likely from cirrhosis. There is moderate ascites seen around the liver. Raúl Garay MD Chest X-Ray 05/13/17 0000 Signed Impressions: Service Date/Time: April 19:01 - CONCLUSION: 1. Interim extubation. 2. Left perihilar/infrahilar consolidation. 3. Patchy mild bilateral airspace opacities. 4. Small left pleural effusion. Raúl Greene MD Procedures Paracentesis. Other Results Laboratory Tests Test 05/13/17 17:49 05/13/17 23:48 05/14/17 04:49 05/14/17 05:00 Nasal Screen MRSA (PCR) MRSA NOT DETECTED Fibrinogen 168 mg/dL Blood Urea Nitrogen 16 MG/DL 15 MG/DL Creatinine 0.64 MG/DL 0.57 MG/DL Random Glucose 239 MG/DL 237 MG/DL Total Protein 6.5 GM/DL 6.6 GM/DL Albumin 2.4 GM/DL 2.3 GM/DL Calcium Level 8.1 MG/DL 8.1 MG/DL Phosphorus Level 2.0 MG/DL 2.6 MG/DL Magnesium Level 2.2 MG/DL 2.1 MG/DL Alkaline Phosphatase 84 U/L 81 U/L Aspartate Amino Transf (AST/SGOT) 48 U/L 49 U/L Alanine Aminotransferase (ALT/SGPT) 37 U/L 38 U/L Total Bilirubin 2.0 MG/DL 2.0 MG/DL Direct Bilirubin 1.1 MG/DL Sodium Level 145 MEQ/L 145 MEQ/L Potassium Level 3.4 MEQ/L 3.6 MEQ/L Chloride Level 114 MEQ/L 114 MEQ/L Carbon Dioxide Level 22.6 MEQ/L 23.9 MEQ/L Indirect Bilirubin 0.9 MG/DL Total Creatine Kinase 99 U/L Lipase 212 U/L Activated Partial Thromboplast Time 28.5 SEC Lactic Acid Level 1.5 mmol/L Ammonia 27 MCMOL/L Urine Yeast (Budding) FEW Test 05/15/17 08:55 05/15/17 13:35 05/16/17 03:45 05/16/17 17:13 Tumor Marker Alpha Fetoprotein 3.1 NG/ML Urine Color LIGHT-YELLOW Urine Turbidity CLEAR Urine pH 5.5 Urine Specific Mears 1.007 Urine Protein NEG mg/dL Urine Glucose (UA) NEG mg/dL Urine Ketones NEG mg/dL Urine Occult Blood TRACE Urine Nitrite NEG Urine Bilirubin NEG Urine Urobilinogen LESS THAN 2.0 MG/DL Urine Leukocyte Esterase NEG Urine RBC 2 /hpf Urine WBC LESS THAN 1 /hpf Urine Hyaline Casts 1 /lpf Urine Mucus FEW /lpf Microscopic Urinalysis Comment CULT NOT INDICATED Prothrombin Time 13.6 SEC Prothromb Time International Ratio 1.2 RATIO Procalcitonin 0.11 ng/mL Test 05/18/17 06:20 05/19/17 16:45 White Blood Count 5.6 TH/MM3 Red Blood Count 3.02 MIL/MM3 Hemoglobin 9.6 GM/DL Hematocrit 28.8 % Mean Corpuscular Volume 95.3 FL Mean Corpuscular Hemoglobin 31.6 PG Mean Corpuscular Hemoglobin Concent 33.2 % Red Cell Distribution Width 18.8 % Platelet Count 138 TH/MM3 Mean Platelet Volume 8.7 FL Neutrophils (%) (Auto) 78.7 % Lymphocytes (%) (Auto) 11.1 % Monocytes (%) (Auto) 7.9 % Eosinophils (%) (Auto) 1.5 % Basophils (%) (Auto) 0.8 % Neutrophils # (Auto) 4.4 TH/MM3 Lymphocytes # (Auto) 0.6 TH/MM3 Monocytes # (Auto) 0.4 TH/MM3 Eosinophils # (Auto) 0.1 TH/MM3 Basophils # (Auto) 0.0 TH/MM3 CBC Comment DIFF FINAL Differential Comment Blood Urea Nitrogen 9 MG/DL Creatinine 0.59 MG/DL Random Glucose 183 MG/DL Total Protein 6.6 GM/DL Albumin 2.8 GM/DL Calcium Level 8.0 MG/DL Alkaline Phosphatase 79 U/L Aspartate Amino Transf (AST/SGOT) 66 U/L Alanine Aminotransferase (ALT/SGPT) 45 U/L Total Bilirubin 1.7 MG/DL Sodium Level 139 MEQ/L Potassium Level 3.5 MEQ/L Chloride Level 105 MEQ/L Carbon Dioxide Level 27.5 MEQ/L Anion Gap 7 MEQ/L Estimat Glomerular Filtration Rate 142 ML/MIN Peritoneal Fluid WBC 289 /MM3 Peritoneal Fluid RBC 20 /MM3 Peritoneal Fluid Neutrophils 10 % Peritoneal Fluid Lymphocytes 42 % Peritoneal Fluid Monocytes 43 % Peritoneal Fluid Histiocytes 4 % Peritoneal Fluid Mesothelial Cells 1 % Peritoneal Fluid Comment Peritoneal Fluid Total Protein 1.3 GM/DL Peritoneal Fluid Albumin 0.7 G/DL Peritoneal Fluid Glucose 243 MG/DL Objective Remarks GENERAL: Well-nourished, well-developed patient. More alert SKIN: Warm and dry. HEAD: Normocephalic. EYES: No scleral icterus. No injection or drainage. NECK: Supple, trachea midline. No JVD or lymphadenopathy. LYMPHATIC: No adenopathy. CARDIOVASCULAR: Regular rate and rhythm without murmurs. RESPIRATORY: Breath sounds equal bilaterally. No accessory muscle use. GASTROINTESTINAL: Abdomen soft, distended, non-tender. EXTREMITIES: No cyanosis, diffuse edema. MUSCULOSKELETAL: Adequate muscle tone. NEUROLOGICAL: No obvious focal deficit. Awake, alert, and oriented to self and place Medications and IVs Current Medications Medications (Trade) Dose Ordered Sig/Jez Route Start Time Stop Time Status Last Admin (Buspar) 10 mg TID PO 05/14/17 09:00 05/20/17 14:06 (Tums Chew) 500 mg DAILY PRN CHEW 05/13/17 18:15 (Protonix) 40 mg BID PO 05/13/17 21:00 05/20/17 08:20 (Inderal) 10 mg Q12HR PO 05/13/17 21:00 05/20/17 08:20 (Xifaxan) 550 mg BID PO 05/13/17 21:00 05/20/17 08:22 (Aldactone) 100 mg DAILY PO 05/14/17 09:00 05/19/17 08:16 (Flomax) 0.8 mg DAILY PO 05/14/17 09:00 05/20/17 08:21 (Lyrica) 300 mg TID PO 05/14/17 09:00 05/20/17 14:06 (NS Flush) 2 ml UNSCH PRN IV FLUSH 05/13/17 18:30 05/15/17 10:25 (NS Flush) 2 ml BID IV FLUSH 05/13/17 21:00 05/20/17 08:22 (Tears Naturale Opth Soln) 1 drop TID EACH EYE 05/14/17 09:00 05/16/17 13:00 (Zofran Inj) 4 mg Q6H PRN IV PUSH 05/13/17 18:30 (Albuterol Neb) 2.5 mg Q2HR NEB PRN INH 05/13/17 18:30 05/19/17 09:04 Miscellaneous Information 1 Q361D XX 05/13/17 18:30 05/13/17 19:00 (Chlorhexidine 2% Cloth) Taper DAILY@04 TOP 05/14/17 04:00 05/10/18 03:59 05/20/17 03:58 (Chlorhexidine 2% Cloth) 3 pack UNSCH PRN TOP 05/13/17 18:30 (Sarahi-Colace) 1 tab BID PO 05/13/17 21:00 05/20/17 08:21 (Milk Of Magnesia Liq) 30 ml Q12H PRN PO 05/13/17 18:30 (Senokot) 17.2 mg Q12H PRN PO 05/13/17 18:30 (Dulcolax Supp) 10 mg DAILY PRN RECTAL 05/13/17 18:30 (Lactulose Liq) 30 ml DAILY PRN PO 05/13/17 18:30 (D50w (Vial) Inj) 50 ml UNSCH PRN IV 05/13/17 18:30 (Glucagon Inj) 1 mg UNSCH PRN OTHER 05/13/17 18:30 (NovoLIN R SUPPLEMENTAL SCALE) 1 ACHS SLIDING SCALE SQ 05/13/17 21:00 05/20/17 14:21 (Lactulose Liq) 30 ml DAILY PO 05/14/17 09:00 05/18/17 09:18 Cefepime HCl 2000 mg/Sodium Chloride 100 ml @ 200 mls/hr Q8H IV 05/13/17 20:00 05/20/17 14:05 (Tylenol) 650 mg Q6H PRN PO 05/13/17 18:30 ([place] 5-325 Mg) 1 tab Q4H PRN PO 05/13/17 18:30 (Albumin 25% Inj) 25 gm Q12H IV 05/14/17 21:00 05/20/17 08:22 (Lasix Inj) 40 mg DAILY IV PUSH 05/15/17 11:15 05/20/17 08:21 (Santyl Oint) 1 applic DAILY TOPICAL 05/17/17 12:45 05/20/17 08:41 (Morphine Inj) 2 mg Q4HR PRN IV PUSH 05/20/17 10:45 06/19/17 10:50 A/P Assessment and Plan 56 year old male. Originally admitted to [facility] on 05/04, had developed massive hematemesis and hemorrhagic shock, necessitating intubation and multiple blood transfusions. He was deemed not be a candidate for TIPs at this facility secondary to history portal vein occlusion in the liver hilum with reconstitution of parenchymal portal vein branches on CT scan 09/17/16. He was then transferred to [facility] for possible TIPS procedure. While at [facility], he was found hepatocellular carcinoma on CT and sent back here since TIPS was contraindicated w/ possible portal vein thrombosis/cancer. Upper GI bleed from grade 4 esophageal varices status post banding 3 05/05 Hepatitis C IIIa scheduled for ribavirin 200 mg and Sofosbuvir/Velpatasvir therapy 400 mg/100 mg History of portal vein thrombosis Liver Cirrhosis from EtOH and Hepatitis C Ascites status post paracentesis yesterday Questionable Hepatocellular Carcinoma MRI showed 2 small non specific nodules likely regenerating nodules but no suspicious Hepatocellular Carcinoma, recommended to follow as outpatient with GI/Hepatology specialist, Oncology signed off. Continue PPIs, Xifaxan, Lactulose, Not candidate for TIPs procedure, due to portal thrombosis, Ascites status post Paracentesis Continue Propranolol, Aldactone. History of HCAP ESBL+ Patient previously on ceftriaxone for upper GI bleed. On cefepime Depression History of alcohol dependence History of hepatic encephalopathy Diabetic neuropathy Chronic pain syndrome hydrocodone/acetaminophen at home for pain management Morphine sulfate for pain management. decreased dose to every four hours tomorrow to by mouth. Continue buspirone 10 mg by mouth 3 times a day/home medication Continue Pregabalin 300 mg by mouth 3 times a day/home medication for diabetic neuropathy. BPH Continue tamsulosin 0.8 milligrams by mouth daily Diabetes mellitus with neuropathy Sliding scale insulin with Accu-Cheks to maintain euglycemia/low regimen with meals/at bedtime with Novulin R Unstable sacral decubitus ulcer Wound care evaluate and treat Incentive spirometry while awake Albuterol/Atrovent every 4 hours with albuterol aerosols every 2 hours as needed Dyspnea - DVT - SCD/pharmacological prophylaxis contra indicated with GI bleed Discharge Planning Once cleared by specialists. Matt Sagastume MD May 20, 2017 16:08
[2017-05-20 20:00] VITALS: BP 133/65; PULSE 67; RESP 16; TEMP 97.1; O2SAT 99
[2017-05-21] VITALS: BP 135/62; PULSE 66; RESP 16; TEMP 98.7; O2SAT 95
[2017-05-21 04:00] VITALS: BP 130/60; PULSE 60; RESP 16; TEMP 98.6; O2SAT 98
[2017-05-21] MEDS: CHLORHEXIDINE GLUCONATE 2 % 1 PACK (2 CLOTHS) TOP SCH (04:00)
[2017-05-21] MEDS: CEFEPIME INJ 2,000 MG in SODIUM CHLORIDE 0.9% INJ 100 ML IV SCH (04:22)
[2017-05-21] MEDS: MORPHINE SULFATE 4 MG/ML INJ IV PUSH PRN (04:22)
[2017-05-21] MEDS: RESP: ALBUTEROL 2.5 MG/3 ML NEB (PRN) INH (05:45)
[2017-05-21 08:00] VITALS: BP 149/77; PULSE 71; RESP 16; TEMP 99; O2SAT 99
[2017-05-21] MEDS: DOCUSATE SODIUM 50 MG/SENNA 8.6 MG TAB PO SCH (09:59)
[2017-05-21] MEDS: LACTULOSE SYRUP 20 GM/30 ML CUP PO SCH (09:59)
[2017-05-21] MEDS: TAMSULOSIN HCL 0.4 MG CAP PO SCH (10:00)
[2017-05-21] MEDS: PREGABALIN 100 MG CAP PO SCH ×2 (10:00→13:22)
[2017-05-21] MEDS: RIFAXIMIN 550 MG TAB PO SCH (10:00)
[2017-05-21] MEDS: PANTOPRAZOLE SOD 40 MG DELAYED RELEASE TAB PO SCH (10:00)
[2017-05-21] MEDS: busPIRone HCL 10 MG TAB PO SCH ×2 (10:00→13:22)
[2017-05-21] MEDS: SPIRONOLACTONE 100 MG TAB PO SCH (10:00)
[2017-05-21] MEDS: PROPRANOLOL HCL 10 MG TAB PO SCH (10:00)
[2017-05-21] MEDS: ALBUMIN HUMAN 25% 25 GM/100 ML BAGP IV SCH (10:01)
[2017-05-21] MEDS: FUROSEMIDE 40 MG/4 ML VIAL IV PUSH SCH (10:01)
[2017-05-21] MEDS: SODIUM CHLORIDE 0.9% FLUSH 10 ML FLUSH IV FLUSH SCH (10:02)
[2017-05-21] MEDS: COLLAGENASE OINT 30 GM TUBE TOPICAL SCH (10:11)
--- NOTE | 2017-05-21 10:41 | HHI.PR ---
Subjective Remarks risk specialist Notes: 56 year old male. Date of admission 05/13/2017. Past medical history includes hepatitis C, EtOH, portal hypertension, liver cirrhosis, diabetes mellitus septic, hypertension and sacral decubitus ulcers. Patient was a 05/04 to [facility] with no like stools. Previous diagnoses grade 4 esophageal varices. He received intravenous pantoprazole, Sandostatin ceftriaxone. On 05/05, patient developed massive hematemesis and hemorrhagic shock for intubated transfusion 5 RBCs. EGD was performed with banding of 3 varices. The stomach and onto unable to be evaluated. I was consulted but not considered to be a candidate due to portal vein thrombosis and was therefore transferred to [facility].At that facility, he arrived 05/08 on pantoprazole, Sandostatin and ceftriaxone. His medications were discontinued 05/10. Antibiotics were transitioned to piperacillin/tazobactam eventually to cefepime. Discontinued date 05/14. He was extubated 05/12. Patient was found to have likely hepatocellular carcinoma on CT. There are questionable multifocal arterial lesions likely consistent with this diagnosis. MR liver was to be performed but no information sent.. TIPS is contraindicated with portal vein thrombosis/cancer therefore patient was transferred back. Currently , patient is currently resting in bed in no acute distress 05/14 Patient is lying in bed in NAD. Afebrile. Hospitalist Notes: 05/17: certified medical coding specialist following for Probable hepatocellular carcinoma, was recommended to get Palliative care consult and awaiting for the patient to be more stable and if family wishes for further testing for MRI of the Liver, seen in his bedroom and discussed with nurse Miss Viera asking for rectal tube for removal but GI specialist BARROW WORKER in to see the patient will leave this decision to GI specialist. No other complaint. 05/18: Seen in his bedroom and discussed with nurse Miss Viera, no new complaint. continue management as per GI specialist. 05/19: Stable okay to transfer to Medical floor, remove Rosado cath. discussed with nurse. No nausea, vomit or diarrhea. 05/20: Seen in his bedroom stable no complaint. 05/21: Stable in his bedroom, no nausea, vomit or diarrhea, he wants to go home , Okay to discharge from medicine standpoint. seen in the presence of nurse Miss Harrell. Objective Vital Signs Date Time Temp Pulse Resp B/P (MAP) Pulse Ox O2 Delivery O2 Flow Rate FiO2 05/21/17 05:05 19 05/21/17 04:00 98.6 60 16 130/60 (83) 98 05/21/17 00:00 98.7 66 16 135/62 (86) 95 05/20/17 20:00 97.1 67 16 133/65 (87) 99 05/20/17 20:00 20 05/20/17 15:50 96.9 70 20 129/60 (83) 100 05/20/17 11:50 96.6 67 20 150/71 (97) 95 I/O 05/20/17 05/20/17 05/20/17 05/21/17 05/21/17 05/21/17 07:00 15:00 23:00 07:00 15:00 23:00 Intake Total 480 ml 730 ml 824 ml Output Total 1400 ml 2900 ml Balance -920 ml -2170 ml 824 ml Intake Oral 480 ml 730 ml 720 ml IV Total 104 ml Output Urine Total 1400 ml 2900 ml # Voids 1 4 Result Diagram: 05/18/1720 05/18/17 0620 Imaging Last Impressions Cyst Biopsy Asp-Paracentesis US 05/19/17 0000 Signed Impressions: Service Date/Time: Friday, May 19, 2017 16:16 - CONCLUSION: Uncomplicated ultrasound guided paracentesis. Raúl Rosenthal MD Abdomen MRI 05/19/17 0000 Signed Impressions: Service Date/Time: Friday, May 19, 2017 11:16 - CONCLUSION: 1. Cirrhotic liver with completely thrombosed portal vein including the main portal vein and right and left intrahepatic branches. I do not see a enhancing mass or definite enhancement within the thrombus to indicate tumor thrombus. Therefore , this may be bland thrombus. 2. No suspicious lesion is identified within the liver. There are 2 nodular areas of arterial hyperenhancement that are not seen on the subsequent series suggesting that these may represent atypical nodules. Attention should be paid to these at followup imaging. 3. Findings indicative of portal hypertension including splenomegaly, ascites, and varices. Raúl Rosenthal MD Abdomen Ultrasound 05/15/17 0000 Signed Impressions: Service Date/Time: Monday, May 15, 2017 08:05 - CONCLUSION: Limited abdominal ultrasound with the patient being combative during the examination. The liver is diffusely abnormal with coarsening of echotexture and a nodular liver surface likely from cirrhosis. There is moderate ascites seen around the liver. Raúl Garay MD Chest X-Ray 05/13/17 0000 Signed Impressions: Service Date/Time: April 19:01 - CONCLUSION: 1. Interim extubation. 2. Left perihilar/infrahilar consolidation. 3. Patchy mild bilateral airspace opacities. 4. Small left pleural effusion. Raúl Greene MD Procedures Paracentesis. Other Results Laboratory Tests Test 05/13/17 17:49 05/13/17 23:48 05/14/17 04:49 05/14/17 05:00 Nasal Screen MRSA (PCR) MRSA NOT DETECTED Fibrinogen 168 mg/dL Blood Urea Nitrogen 16 MG/DL 15 MG/DL Creatinine 0.64 MG/DL 0.57 MG/DL Random Glucose 239 MG/DL 237 MG/DL Total Protein 6.5 GM/DL 6.6 GM/DL Albumin 2.4 GM/DL 2.3 GM/DL Calcium Level 8.1 MG/DL 8.1 MG/DL Phosphorus Level 2.0 MG/DL 2.6 MG/DL Magnesium Level 2.2 MG/DL 2.1 MG/DL Alkaline Phosphatase 84 U/L 81 U/L Aspartate Amino Transf (AST/SGOT) 48 U/L 49 U/L Alanine Aminotransferase (ALT/SGPT) 37 U/L 38 U/L Total Bilirubin 2.0 MG/DL 2.0 MG/DL Direct Bilirubin 1.1 MG/DL Sodium Level 145 MEQ/L 145 MEQ/L Potassium Level 3.4 MEQ/L 3.6 MEQ/L Chloride Level 114 MEQ/L 114 MEQ/L Carbon Dioxide Level 22.6 MEQ/L 23.9 MEQ/L Indirect Bilirubin 0.9 MG/DL Total Creatine Kinase 99 U/L Lipase 212 U/L Activated Partial Thromboplast Time 28.5 SEC Lactic Acid Level 1.5 mmol/L Ammonia 27 MCMOL/L Urine Yeast (Budding) FEW Test 05/15/17 08:55 05/15/17 13:35 05/16/17 03:45 05/16/17 17:13 Tumor Marker Alpha Fetoprotein 3.1 NG/ML Urine Color LIGHT-YELLOW Urine Turbidity CLEAR Urine pH 5.5 Urine Specific Kimball 1.007 Urine Protein NEG mg/dL Urine Glucose (UA) NEG mg/dL Urine Ketones NEG mg/dL Urine Occult Blood TRACE Urine Nitrite NEG Urine Bilirubin NEG Urine Urobilinogen LESS THAN 2.0 MG/DL Urine Leukocyte Esterase NEG Urine RBC 2 /hpf Urine WBC LESS THAN 1 /hpf Urine Hyaline Casts 1 /lpf Urine Mucus FEW /lpf Microscopic Urinalysis Comment CULT NOT INDICATED Prothrombin Time 13.6 SEC Prothromb Time International Ratio 1.2 RATIO Procalcitonin 0.11 ng/mL Test 05/18/17 06:20 05/19/17 16:45 White Blood Count 5.6 TH/MM3 Red Blood Count 3.02 MIL/MM3 Hemoglobin 9.6 GM/DL Hematocrit 28.8 % Mean Corpuscular Volume 95.3 FL Mean Corpuscular Hemoglobin 31.6 PG Mean Corpuscular Hemoglobin Concent 33.2 % Red Cell Distribution Width 18.8 % Platelet Count 138 TH/MM3 Mean Platelet Volume 8.7 FL Neutrophils (%) (Auto) 78.7 % Lymphocytes (%) (Auto) 11.1 % Monocytes (%) (Auto) 7.9 % Eosinophils (%) (Auto) 1.5 % Basophils (%) (Auto) 0.8 % Neutrophils # (Auto) 4.4 TH/MM3 Lymphocytes # (Auto) 0.6 TH/MM3 Monocytes # (Auto) 0.4 TH/MM3 Eosinophils # (Auto) 0.1 TH/MM3 Basophils # (Auto) 0.0 TH/MM3 CBC Comment DIFF FINAL Differential Comment Blood Urea Nitrogen 9 MG/DL Creatinine 0.59 MG/DL Random Glucose 183 MG/DL Total Protein 6.6 GM/DL Albumin 2.8 GM/DL Calcium Level 8.0 MG/DL Alkaline Phosphatase 79 U/L Aspartate Amino Transf (AST/SGOT) 66 U/L Alanine Aminotransferase (ALT/SGPT) 45 U/L Total Bilirubin 1.7 MG/DL Sodium Level 139 MEQ/L Potassium Level 3.5 MEQ/L Chloride Level 105 MEQ/L Carbon Dioxide Level 27.5 MEQ/L Anion Gap 7 MEQ/L Estimat Glomerular Filtration Rate 142 ML/MIN Peritoneal Fluid WBC 289 /MM3 Peritoneal Fluid RBC 20 /MM3 Peritoneal Fluid Neutrophils 10 % Peritoneal Fluid Lymphocytes 42 % Peritoneal Fluid Monocytes 43 % Peritoneal Fluid Histiocytes 4 % Peritoneal Fluid Mesothelial Cells 1 % Peritoneal Fluid Comment Peritoneal Fluid Total Protein 1.3 GM/DL Peritoneal Fluid Albumin 0.7 G/DL Peritoneal Fluid Glucose 243 MG/DL Objective Remarks GENERAL: Well-nourished, well-developed patient. no acute distress. SKIN: Warm and dry. HEAD: Normocephalic. EYES: No scleral icterus. No injection or drainage. NECK: Supple, trachea midline. No JVD or lymphadenopathy. LYMPHATIC: No adenopathy. CARDIOVASCULAR: Regular rate and rhythm without murmurs. RESPIRATORY: Breath sounds equal bilaterally. No accessory muscle use. GASTROINTESTINAL: Abdomen soft, distended, non-tender. EXTREMITIES: No cyanosis, diffuse edema. MUSCULOSKELETAL: Adequate muscle tone. NEUROLOGICAL: No obvious focal deficit. Awake, alert, oriented x 3. Medications and IVs Current Medications Medications (Trade) Dose Ordered Sig/Jez Route Start Time Stop Time Status Last Admin (Buspar) 10 mg TID PO 05/14/17 09:00 05/21/17 10:00 (Tums Chew) 500 mg DAILY PRN CHEW 05/13/17 18:15 (Protonix) 40 mg BID PO 05/13/17 21:00 05/21/17 10:00 (Inderal) 10 mg Q12HR PO 05/13/17 21:00 05/21/17 10:00 (Xifaxan) 550 mg BID PO 05/13/17 21:00 05/21/17 10:00 (Aldactone) 100 mg DAILY PO 05/14/17 09:00 05/21/17 10:00 (Flomax) 0.8 mg DAILY PO 05/14/17 09:00 05/21/17 10:00 (Lyrica) 300 mg TID PO 05/14/17 09:00 05/21/17 10:00 (NS Flush) 2 ml UNSCH PRN IV FLUSH 05/13/17 18:30 05/15/17 10:25 (NS Flush) 2 ml BID IV FLUSH 05/13/17 21:00 05/21/17 10:02 (Tears Naturale Opth Soln) 1 drop TID EACH EYE 05/14/17 09:00 05/16/17 13:00 (Zofran Inj) 4 mg Q6H PRN IV PUSH 05/13/17 18:30 (Albuterol Neb) 2.5 mg Q2HR NEB PRN INH 05/13/17 18:30 05/21/17 05:45 Miscellaneous Information 1 Q361D XX 05/13/17 18:30 05/13/17 19:00 (Chlorhexidine 2% Cloth) Taper DAILY@04 TOP 05/14/17 04:00 05/10/18 03:59 05/21/17 04:00 (Chlorhexidine 2% Cloth) 3 pack UNSCH PRN TOP 05/13/17 18:30 (Sarahi-Colace) 1 tab BID PO 05/13/17 21:00 05/21/17 09:59 (Milk Of Magnesia Liq) 30 ml Q12H PRN PO 05/13/17 18:30 (Senokot) 17.2 mg Q12H PRN PO 05/13/17 18:30 (Dulcolax Supp) 10 mg DAILY PRN RECTAL 05/13/17 18:30 (Lactulose Liq) 30 ml DAILY PRN PO 05/13/17 18:30 (D50w (Vial) Inj) 50 ml UNSCH PRN IV 05/13/17 18:30 (Glucagon Inj) 1 mg UNSCH PRN OTHER 05/13/17 18:30 (NovoLIN R SUPPLEMENTAL SCALE) 1 ACHS SLIDING SCALE SQ 05/13/17 21:00 05/20/17 22:12 (Lactulose Liq) 30 ml DAILY PO 05/14/17 09:00 05/21/17 09:59 Cefepime HCl 2000 mg/Sodium Chloride 100 ml @ 200 mls/hr Q8H IV 05/13/17 20:00 05/21/17 04:22 (Tylenol) 650 mg Q6H PRN PO 05/13/17 18:30 (Medford 5-325 Mg) 1 tab Q4H PRN PO 05/13/17 18:30 05/21/17 10:31 (Albumin 25% Inj) 25 gm Q12H IV 05/14/17 21:00 05/21/17 10:01 (Lasix Inj) 40 mg DAILY IV PUSH 05/15/17 11:15 05/21/17 10:01 (Santyl Oint) 1 applic DAILY TOPICAL 05/17/17 12:45 05/21/17 10:11 (Morphine Inj) 2 mg Q4HR PRN IV PUSH 05/20/17 10:45 06/19/17 10:50 05/21/17 04:22 A/P Assessment and Plan 56 year old male. Originally admitted to [facility] on 05/04, had developed massive hematemesis and hemorrhagic shock, necessitating intubation and multiple blood transfusions. He was deemed not be a candidate for TIPs at this facility secondary to history portal vein occlusion in the liver hilum with reconstitution of parenchymal portal vein branches on CT scan 09/17/16. He was then transferred to [facility] for possible TIPS procedure. While at [facility], he was found hepatocellular carcinoma on CT and sent back here since TIPS was contraindicated w/ possible portal vein thrombosis/cancer. Upper GI bleed from grade 4 esophageal varices status post banding 3 05/05 Hepatitis C IIIa scheduled for ribavirin 200 mg and Sofosbuvir/Velpatasvir therapy 400 mg/100 mg History of portal vein thrombosis Liver Cirrhosis from EtOH and Hepatitis C Ascites status post paracentesis yesterday Questionable Hepatocellular Carcinoma MRI showed 2 small non specific nodules likely regenerating nodules but no suspicious Hepatocellular Carcinoma, recommended to follow as outpatient with GI/Hepatology specialist, Oncology signed off. Continue PPIs, Xifaxan, Lactulose, Not candidate for TIPs procedure, due to portal thrombosis, Ascites status post Paracentesis Continue Propranolol, Aldactone. History of HCAP ESBL+ Patient previously on ceftriaxone for upper GI bleed. On cefepime Depression History of alcohol dependence History of hepatic encephalopathy Diabetic neuropathy Chronic pain syndrome hydrocodone/acetaminophen at home for pain management Morphine sulfate for pain management. decreased dose to every four hours tomorrow to by mouth. Continue buspirone 10 mg by mouth 3 times a day/home medication Continue Pregabalin 300 mg by mouth 3 times a day/home medication for diabetic neuropathy. BPH Continue tamsulosin 0.8 milligrams by mouth daily Diabetes mellitus with neuropathy Sliding scale insulin with Accu-Cheks to maintain euglycemia/low regimen with meals/at bedtime with Novulin R Unstable sacral decubitus ulcer Wound care evaluate and treat Incentive spirometry while awake Albuterol/Atrovent every 4 hours with albuterol aerosols every 2 hours as needed Dyspnea - DVT - SCD/pharmacological prophylaxis contra indicated with GI bleed Discharge Planning Awaiting final by GI specialist for discharge Expected later today. Matt Sagastume MD May 21, 2017 10:41
[2017-05-21] MEDS ORDERED: Lactulose Liq PO (10:46)
[2017-05-21] MEDS ORDERED: HYDR-3516 PO (10:46)
[2017-05-21] MEDS ORDERED: FURO1TAB60 PO (10:46)
--- NOTE | 2017-05-21 11:15 | HHI.FF ---
Face to Face Verification Diagnosis: (1) Respiratory failure (2) Portal hypertensive gastropathy (3) GI bleed (4) Anemia (5) UGIB (upper gastrointestinal bleed) (6) Portal vein thrombosis Physical Therapy Order: Evaluate and Treat, Improve ambulation, Strength and gait training Home Health Nursing Order: Medical education Signs/symptoms of disease process Medication education-adverse effect Nursing assessment with vital signs I have seen patient Azael Arzola on 05/21/17. My clinical findings support the need for the requested home health care services because: Ltd mobility - disease progression I certify that my clinical findings support that this patient is homebound because: Unsafe to leave home unassisted Matt Sagastume MD May 21, 2017 11:15 am
[2017-05-21 12:00] VITALS: BP 142/72; PULSE 65; RESP 16; TEMP 98.4; O2SAT 99
[2017-05-21] MEDS: INSULIN NovoLIN REGULAR SUPPLEMENTAL SCALE SQ SCH (13:31)
--- NOTE | 2017-05-21 14:40 | HHI.GIFU ---
Subjective Remarks Resting in bed. No complaints. States he is going home today. No GI bleeding. Feeling better. (ValeYumiko Sonjadebora HARMAN) Objective Vitals I&O Vital Signs Date Time Temp Pulse Resp B/P (MAP) Pulse Ox O2 Delivery O2 Flow Rate FiO2 05/21/17 08:00 99.0 71 16 149/77 (101) 99 05/21/17 05:05 19 05/21/17 04:00 98.6 60 16 130/60 (83) 98 05/21/17 00:00 98.7 66 16 135/62 (86) 95 05/20/17 20:00 97.1 67 16 133/65 (87) 99 05/20/17 20:00 20 05/20/17 15:50 96.9 70 20 129/60 (83) 100 I/O 05/20/17 05/20/17 05/20/17 05/21/17 05/21/17 05/21/17 07:00 15:00 23:00 07:00 15:00 23:00 Intake Total 480 ml 730 ml 924 ml Output Total 1400 ml 2900 ml Balance -920 ml -2170 ml 924 ml Intake Oral 480 ml 730 ml 720 ml IV Total 204 ml Output Urine Total 1400 ml 2900 ml # Voids 1 4 Laboratory Date/Time Source Procedure Growth Status 05/19/17 16:45 Fluid Peritoneal Fluid Gram Stain - Final Resulted 05/19/17 16:45 Fluid Peritoneal Fluid Body Fluid Culture - Preliminary NO GROWTH IN 48 HOURS. Resulted Imaging Last Impressions Cyst Biopsy Asp-Paracentesis US 05/19/17 0000 Signed Impressions: Service Date/Time: Friday, May 19, 2017 16:16 - CONCLUSION: Uncomplicated ultrasound guided paracentesis. Raúl Rosenthal MD Abdomen MRI 05/19/17 0000 Signed Impressions: Service Date/Time: Friday, May 19, 2017 11:16 - CONCLUSION: 1. Cirrhotic liver with completely thrombosed portal vein including the main portal vein and right and left intrahepatic branches. I do not see a enhancing mass or definite enhancement within the thrombus to indicate tumor thrombus. Therefore , this may be bland thrombus. 2. No suspicious lesion is identified within the liver. There are 2 nodular areas of arterial hyperenhancement that are not seen on the subsequent series suggesting that these may represent atypical nodules. Attention should be paid to these at followup imaging. 3. Findings indicative of portal hypertension including splenomegaly, ascites, and varices. Raúl Rosenthal MD Abdomen Ultrasound 05/15/17 0000 Signed Impressions: Service Date/Time: Monday, May 15, 2017 08:05 - CONCLUSION: Limited abdominal ultrasound with the patient being combative during the examination. The liver is diffusely abnormal with coarsening of echotexture and a nodular liver surface likely from cirrhosis. There is moderate ascites seen around the liver. Raúl Garay MD Chest X-Ray 05/13/17 0000 Signed Impressions: Service Date/Time: April 19:01 - CONCLUSION: 1. Interim extubation. 2. Left perihilar/infrahilar consolidation. 3. Patchy mild bilateral airspace opacities. 4. Small left pleural effusion. Raúl Greene MD Physical Exam HEENT: Normocephalic; atraumatic; + jaundice. CHEST: Resp. even/unlabored, diminished CARDIAC: RRR ABDOMEN: Soft, distention with moderate amount ascites, hepatosplenomegaly; bowel sounds are present EXTREMITIES:Mild BLE edema. SKIN: + jaundice. DRAWER WAXER: Lethargic, oriented to self, place, month (Yumiko Vale) Assessment and Plan Plan ASSESSMENT: - Upper GIB secondary to esophageal varices. EGD (05/05/17)----> There was a nipple sign on a large distal varix and that seems to be where the bleeding was from. 4 bands applied on 3 varices. Bleeding seemed controlled. There was a great deal of blood in the upper stomach. The stomach and duodenum could not be examined further, cannot rule out gastric varices. He was treated with octreotide and protonix drips and IR was consulted for evaluation for TIPS procedure. However, he was deemed not be a candidate at this facility secondary to history portal vein occlusion in the liver hilum with reconstitution of parenchymal portal vein branches on CT scan 09/17/16. He was then transferred to [facility] for possible TIPS procedure. While at [facility], he was found to likely have hepatocellular carcinoma on CT. There were questionable multifocal arterial lesions likely consistent with this diagnosis. MR liver was to be performed but no information sent. TIPS is contraindicated with portal vein thrombosis/cancer therefore patient was transferred back to this facility. No obvious active bleeding. HH stable. PPI, Inderal. - Anemia, acute blood loss. S/P recent EGD with band ligation as above. HH stable. - Coagulopathy. Stable. 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 No ETOH x 6 years. On tx with Epclusa /ribavirin as outpatient. Per [facility]-->HCC suspected, not a transplant candidate. AFP 3.1. MRI with no obvious HCC. Oncology signed off. - Suspected hepatocellular carcinoma, per [facility]. Per imaging at [facility] (CT scan, MRI) CT Abdomen liver three phase with ivcon (05/09/17)---> cirrhotic liver with thrombosis of the portal vein. Expansion and arterial enhancement of the intrahepatic and extrahepatic portal venous system with apparent washout on delyaed imaging concerning for tumor thrombus from diffuse HCC. Multifocal arterial enhancing lesions, concerning for diffuse HCC. Equivocal arterially enhancing lesions may represent dysplastic nodules. Furthermore, given the discordant findings of flow within the portal vein on the patient's ultrasound. Recommend further evaluation with multiphase liver protocol MRI. Small volume ascites and splenomegaly consistent with portal hypertension. Multifocal pneumonia with small bilateral pleural effusions. I reviewed the records from [facility], but did not see where an MRI was performed. AFP 3.1. MRI (05/19/17)----> Cirrhotic liver with completely thrombosed portal vein including the main portal vein and right and left intrahepatic branches. I do not see a enhancing mass or definite enhancement within the thrombus to indicate tumor thrombus. Therefore, this may be blad thrombus. No suspicious lesion is identified within the lier. There are 2 nodular areas of arterial hyperenhancement that are not seen on the subsequent series suggesting that these may represent atypical nodules. Attention should be paid to these at followup imaging. Findings indicative of portal hypertension including splenomegaly, ascites, and varices. Oncology signed off, as there was no suspicious HCC on MRI and state that if he indeed did have HCC, he would not be a candidate for any systemic therapy or local therapy due to his poor performance status. Palliative care following. - Portal vein thrombosis. Seen on above CT at [facility]. Not a candidate for anticoagulation. - Hepatitis C, Genotype 3a. On Epclusa as outpatient. - Hepatic encephalopathy. Lethargic, but oriented x 3 Lactulose, Xifaxan - Ascites. Pt with significant abdominal distention, US (05/15/17)---> Limited US with the patient being combative during the examination. The liver is diffusely abnormal with coarsening of echotexture and a nodular liver surface, likely from cirrhosis. There is moderate ascites seen around the liver. No fevers, chills. S/P US Guided paracentesis (05/19/17)-- -> 4,500 removed. States more comfortable. Aldactone. Lasix, Albumin Cefepime. - Respiratory failure, PNA, Pleural effusion. On n/c. Cefepime - HTN, Hyperlipidemia, BPH, DM, Neuropathy, Sacral wound. PLAN: - Pt being discharged today - Low sodium diet - Cont. Lasix - Cont. Lasix - Cont. Protonix - Cont. Propranolol - Cont. Spironolactone - Cont. Lactulose - Cont. Xifaxan - FU CLIFF 2 weeks - Pt seen and examined by Dr. Menon and myself and this note is written on his behalf (Yumiko Vale) Physician Comments Patient seen and examined Agree with above Continue with current supportive care Monitor labs (Romeo Menon MD) Yumiko Vale May 21, 2017 14:39 Romeo Menon MD May 21, 2017 19:21
[2017-05-22] MEDS ORDERED: FUROSEMIDE 40 MG TAB PO SCH (09:00)
== END 2017-05-21 15:52 | disposition home or self-care (01) | DRG 435 ==
LOC: HIMN 05-13 17:00 → HOCB 05-19 17:35
PROVIDERS: ADMIT Internal Medicine; ATTEND Internal Medicine
PROC: 0W9G3ZZ Drainage of Peritoneal Cavity, Percutaneous Approach (ICD-10-PCS; principal; 2017-05-19)
DX: C22.0 Liver cell carcinoma (principal); I81 Portal vein thrombosis; L89.159 Pressure ulcer of sacral region, unspecified stage; K72.90 Hepatic failure, unspecified without coma; I85.10 Secondary esophageal varices without bleeding; K76.6 Portal hypertension; E11.40 Type 2 diabetes mellitus with diabetic neuropathy, unspecified; Z79.84 Long term (current) use of oral hypoglycemic drugs; K70.31 Alcoholic cirrhosis of liver with ascites; B19.20 Unspecified viral hepatitis C without hepatic coma; Z72.0 Tobacco use; N40.0 Benign prostatic hyperplasia without lower urinary tract symptoms; I10 Essential (primary) hypertension; E78.5 Hyperlipidemia, unspecified; D50.0 Iron deficiency anemia secondary to blood loss (chronic); Z87.01 Personal history of pneumonia (recurrent); F32.9 Major depressive disorder, single episode, unspecified; G89.4 Chronic pain syndrome
CPT/HCPCS: 49083; 71010; 74183; 76700; 80048; 80053; 80076; 81001; 82042; 82105; 82140; 82550; 82945; 82948; 83605; 83690; 83735; 84100; 84145; 84157; 85014; 85018; 85025; 85384; 85610; 85730; 87070; 87205; 87641; 88112; 88305; 89051; 94150; 94640; 94664; A9579; C1729; J0692; J1940; J2270; J7050; J7613; P9047

== ENCOUNTER 2017-05-27 15:53 | Emergency (ER) | payer MEDICARE, MEDICAID ==
[~2017-05-27] VITALS: Ht 182.9 cm; Wt 80.0 kg
[~2017-05-27 15:53] MED LIST changes: -AMLO5TAB2 PO; +FURO1TAB60 PO; +Lactulose Liq PO; -NADO20TA PO; -PENI500T PO
[2017-05-27 15:56] VITALS: BP 153/72; PULSE 77; RESP 18; TEMP 99; O2SAT 97
[2017-05-27] MEDS ORDERED: INSULIN HUMAN REGULAR 1,000 UNITS/10 ML VIAL IV PUSH ONE (17:15)
[2017-05-27] MEDS ORDERED: SODIUM CHLORIDE 0.9% FLUSH 10 ML FLUSH IVF PRN (17:15)
[2017-05-27] MEDS ORDERED: SODIUM CHLOR 0.9% 1000 ML INJ 1,000 ML IV ONE (17:15)
--- NOTE | 2017-05-27 17:35 | PD ---
HPI Chief Complaint: Diabetic Time Seen by Provider: 17:15 Travel History International Travel<30 days: No Contact w/Intl Traveler<30days: No Traveled to known affect area: No History of Present Illness HPI 56 yo M arrives with high blood sugar, 450, as observed by Dr Huerta. Pt sent to ER for evaluation. He reports compliance with metformin. He has chronic abdominal pain, hx of HCV, cirrhosis. No fever/nausea or vomiting. He was recently admitted for GI bleed and was on a sliding scale and believes his hyperglycemia may be related. PFSH Past Medical History Hx Anticoagulant Therapy: Yes (ASA) Anxiety: No Depression: No Cancer: No Cardiovascular Problems: Yes High Cholesterol: Yes Diabetes: Yes Diminished Hearing: No Endocrine: Yes Gastrointestinal Disorders: Yes Genitourinary: No Hepatitis: Yes (hep c ) Hiatal Hernia: No Hypertension: Yes Immune Disorder: No Implanted Vascular Access Dvce: Yes Musculoskeletal: Yes (NEUROPATHY) Neurologic: Yes (DIABETIC NEUROPATHY) Psychiatric: No Reproductive: No Respiratory: No Immunizations Current: Yes Thyroid Disease: No Ulcer: Yes Past Surgical History Abdominal Surgery: Yes (APPENDECTOMY PARENCENTESIS ACITES) Appendectomy: Yes Body Medical Devices: PLATE IN RIGHT SHOULDER Cardiac Surgery: No Ear Surgery: No Endocrine Surgery: No Eye Surgery: No Genitourinary Surgery: No Gynecologic Surgery: No Oral Surgery: No Pacemaker: No Thoracic Surgery: No Tonsillectomy: Yes Other Surgery: Yes (right clavical with metal, LIVER PARACENTESIS) Social History Alcohol Use: No Tobacco Use: No Substance Use: No Allergies-Medications (Allergen,Severity, Reaction): Coded Allergies: bacitracin (Unverified Allergy, Mild, RASH, 05/27/17) gramicidin D (Unverified Allergy, Mild, 05/27/17) neomycin (Unverified Allergy, Mild, 05/27/17) polymyxin B (Unverified Allergy, Mild, RASH, 05/27/17) Reported Meds & Prescriptions Reported Meds & Active Scripts Active Lortab (Hydrocodone-Acetaminophen) 5-325 Mg Tab 1-2 Tab PO Q6H PRN Lasix (Furosemide) 40 Mg Tab 40 Mg PO DAILY [Lactulose Liq] 30 ML Syrp 30 Ml PO DAILY PRN Hydrocodone-Acetaminophen 5-325 mg Tab 1 Tab PO Q4H PRN DO NOT USE THIS MEDICINE IF YOU WILL DRIVE A CAR OR USE A MACHINE, ONLY USE IT WHEN RESTING AT HOME. Hydrocodone-Acetaminophen 5-325 mg Tab 1 Tab PO TID PRN Propranolol (Propranolol HCl) 10 Mg Tab 10 Mg PO Q12HR Flomax (Tamsulosin HCl) 0.4 Mg Cap 0.8 Mg PO DAILY Xifaxan (Rifaximin) 550 Mg Tab 550 Mg PO BID Reported Metformin (Metformin HCl) 850 Mg Tab 1,000 Mg PO BIDPC With meals Lyrica (Pregabalin) 300 Mg Cap 300 Mg PO TID Spironolactone 100 Mg Tab 100 Mg PO DAILY Pantoprazole (Pantoprazole Sodium) 40 Mg Tab 40 Mg PO BID Ribavirin 200 Mg Cap Tums (Calcium Carbonate (Antacid)) 500 Mg Chew 500 Mg CHEW DAILY PRN Buspirone (Buspirone HCl) 10 Mg Tab 10 Mg PO TID Baclofen 20 Mg Tab 20 Mg PO TID Review of Systems Except as stated in HPI: all other systems reviewed are Neg Physical Exam Narrative GENERAL: 56 yo M, WNWD, NAD SKIN: Warm and dry. HEAD: Atraumatic. Normocephalic. EYES: Pupils equal and round. No scleral icterus. No injection or drainage. ENT: No nasal bleeding or discharge. Mucous membranes pink and moist. NECK: Trachea midline. No JVD. CARDIOVASCULAR: Regular rate and rhythm. RESPIRATORY: No accessory muscle use. Clear to auscultation. Breath sounds equal bilaterally. GASTROINTESTINAL: Abdomen soft, non-tender, nondistended. Hepatic and splenic margins not palpable. MUSCULOSKELETAL: Extremities without clubbing, cyanosis, or edema. No obvious deformities. NEUROLOGICAL: Awake and alert. No obvious cranial nerve deficits. Motor grossly within normal limits. Five out of 5 muscle strength in the arms and legs. Normal speech. PSYCHIATRIC: Appropriate mood and affect; insight and judgment normal. Data Data Last Documented VS Vital Signs Date Time Temp Pulse Resp B/P (MAP) Pulse Ox O2 Delivery O2 Flow Rate FiO2 05/27/17 18:47 05/27/17 18:04 66 18 99 Room Air 05/27/17 15:56 99.0 VS reviewed Orders Orders Complete Blood Count With Diff (05/27/17 17:15) Comprehensive Metabolic Panel (05/27/17 17:15) Beta Hydroxybutyrate (Acetone) (05/27/17 17:15) Urinalysis - C+S If Indicated (05/27/17 17:15) Blood Glucose (05/27/17 17:15) Blood Glucose (05/27/17 18:15) Blood Glucose (05/27/17 17:15) Ecg Monitoring (05/27/17 17:15) Iv Access Insert/Monitor (05/27/17 17:15) Oximetry (05/27/17 17:15) NPO (05/27/17 17:15) Sodium Chloride 0.9% Flush (Ns Flush) (05/27/17 17:15) Sodium Chlor 0.9% 1000 Ml Inj (Ns 1000 M (05/27/17 17:15) Lipase (05/27/17 17:15) Insulin Human Regular Inj (Novolin R Inj (05/27/17 17:15) Labs Laboratory Tests Test 05/27/17 17:25 05/27/17 17:40 White Blood Count 2.7 TH/MM3 Red Blood Count 2.95 MIL/MM3 Hemoglobin 9.1 GM/DL Hematocrit 28.7 % Mean Corpuscular Volume 97.3 FL Mean Corpuscular Hemoglobin 30.9 PG Mean Corpuscular Hemoglobin Concent 31.7 % Red Cell Distribution Width 19.3 % Platelet Count 100 TH/MM3 Mean Platelet Volume 10.4 FL Neutrophils (%) (Auto) 61.8 % Lymphocytes (%) (Auto) 23.0 % Monocytes (%) (Auto) 12.2 % Eosinophils (%) (Auto) 2.1 % Basophils (%) (Auto) 0.9 % Neutrophils # (Auto) 1.7 TH/MM3 Lymphocytes # (Auto) 0.6 TH/MM3 Monocytes # (Auto) 0.3 TH/MM3 Eosinophils # (Auto) 0.1 TH/MM3 Basophils # (Auto) 0.0 TH/MM3 CBC Comment DIFF FINAL Differential Comment Blood Urea Nitrogen 13 MG/DL Creatinine 0.86 MG/DL Random Glucose 436 MG/DL Total Protein 8.2 GM/DL Albumin 3.7 GM/DL Calcium Level 9.2 MG/DL Alkaline Phosphatase 119 U/L Aspartate Amino Transf (AST/SGOT) 37 U/L Alanine Aminotransferase (ALT/SGPT) 41 U/L Total Bilirubin 1.1 MG/DL Sodium Level 132 MEQ/L Potassium Level 4.4 MEQ/L Chloride Level 100 MEQ/L Carbon Dioxide Level 27.4 MEQ/L Anion Gap 5 MEQ/L Estimat Glomerular Filtration Rate 92 ML/MIN Lipase 476 U/L B-Hydroxybutyrate 0.04 MMOL/L Urine Color YELLOW Urine Turbidity CLEAR Urine pH 5.5 Urine Specific [place] 1.023 Urine Protein 30 mg/dL Urine Glucose (UA) 1000 mg/dL Urine Ketones NEG mg/dL Urine Occult Blood SMALL Urine Nitrite NEG Urine Bilirubin NEG Urine Urobilinogen LESS THAN 2.0 MG/DL Urine Leukocyte Esterase NEG Urine RBC 1 /hpf Urine WBC 1 /hpf Microscopic Urinalysis Comment CULT NOT INDICATED MDM Medical Decision Making Medical Screen Exam Complete: Yes Emergency Medical Condition: Yes Medical Record Reviewed: Yes Differential Diagnosis Hyperglycemia, DKA, renal failure Narrative Course CBC & BMP Diagram 05/27/17 17:25 Total Protein 8.2, Albumin 3.7, Calcium Level 9.2, Alkaline Phosphatase 119 H, Aspartate Amino Transf (AST/SGOT) 37, Alanine Aminotransferase (ALT/SGPT) 41, Total Bilirubin 1.1 H UA no UTI Beta 0.04 IVF, insulin, pain control repeat bs 266 pt ready for discahrge Diagnosis Primary Impression: Hyperglycemia Additional Impression: Pancreatitis Qualified Codes: K85.90 - Acute pancreatitis without necrosis or infection, unspecified Referrals: Primary Care Physician 2 days Additional Instructions: You have a choice when it comes to health care, and we are glad that you chose [facility]. Hopefully, we have met your expectations on today's visit. You are welcome to return to [facility] at any time, as we are committed to meeting the health care needs of our community. Med/Other Pt SpecificInfo: Prescription(s) given Scripts Hydrocodone-Acetaminophen (Lortab) 5-325 Mg Tab 1-2 TAB PO Q6H Y for PAIN SCALE 6 TO 10, #20 TAB 0 Refills Prov: Tam Barnes MD 05/27/17 Disposition: 01 DISCHARGE HOME Condition: Stable Tam Barnes MD May 27, 2017 17:35
[2017-05-27 17:48] LABS: AUTOMATED NEUTROPHIL # 1.7 TH/MM3 (1.8-7.7); BASOPHIL % 0.9 % (0.0-2.0); EOSINOPHIL # 0.1 TH/MM3 (0-0.4); EOSINOPHIL % 2.1 % (0.0-4.0); HEMATOCRIT 28.7 % (39.0-51.0); HEMO FLAGS DIFF FINAL; LYMPHOCYTE # 0.6 TH/MM3 (1.0-4.8); MEAN CELL VOLUME 97.3 FL (80.0-100.0); MEAN CORPUSCULAR HEMOGLOBIN 30.9 PG (27.0-34.0); MEAN CORPUSCULAR HGB CONC 31.7 % (32.0-36.0); MONO % 12.2 % (0.0-8.0); NEUT % 61.8 % (16.0-70.0); PLATELET COUNT 100 TH/MM3 (150-450); RED BLOOD COUNT 2.95 MIL/MM3 (4.50-5.90); RED CELL DISTRIBUTION WIDTH 19.3 % (11.6-17.2); WHITE BLOOD COUNT 2.7 TH/MM3 (4.0-11.0)
[2017-05-27 18:04] VITALS: BP 147/69; PULSE 66; RESP 18; O2SAT 99
[2017-05-27 18:16] LABS: ALKALINE PHOSPHATASE 119 U/L (45-117); ALT (GPT) 41 U/L (12-78); ANION GAP 5 MEQ/L (5-15); AST (GOT) 37 U/L (15-37); BETA-HYDROXYBUTYRATE 0.04 MMOL/L (0.00-0.39); BICARBONATE 27.4 MEQ/L (21.0-32.0); BLOOD UREA NITROGEN 13 MG/DL (7-18); CHLORIDE 100 MEQ/L (98-107); GLOMERULAR FILTRATION RATE 92 ML/MIN (>89); POTASSIUM 4.4 MEQ/L (3.5-5.1); SODIUM (NA) 132 MEQ/L (136-145); TOTAL BILIRUBIN ADULT 1.1 MG/DL (0.2-1.0)
[2017-05-27 18:27] LABS: BLOOD, URINE SMALL (NEG); GLUCOSE,URINE 1000 mg/dL (NEG); KETONE, URINE NEG (NEG); NITRITE,URINE NEG (NEG); PH, URINE 5.5 (5.0-8.5); URINE COLOR YELLOW (YELLW/STRAW)
[2017-05-27 18:34] LABS: COMMENT (UR) CULT NOT INDICATED; CULTURE IF INDICATED CULT NOT INDICATED
[2017-05-27] MEDS ORDERED: HYDR-3533 PO (18:43)
== END 2017-05-27 18:58 | disposition home or self-care (01) ==
LOC: NEPC 15:53
DX: E11.65 Type 2 diabetes mellitus with hyperglycemia (principal); K85.90 Acute pancreatitis without necrosis or infection, unspecified; I10 Essential (primary) hypertension; E78.00 Pure hypercholesterolemia, unspecified; Z79.82 Long term (current) use of aspirin; Z79.84 Long term (current) use of oral hypoglycemic drugs; Z86.79 Personal history of other diseases of the circulatory system; Z87.19 Personal history of other diseases of the digestive system; Z86.19 Personal history of other infectious and parasitic diseases; Z86.69 Personal history of other diseases of the nervous system and sense organs
CPT/HCPCS: 80053; 81001; 82010; 83690; 85025; 96361; 96374; 99284; J1815; J7030

== ENCOUNTER 2017-05-31 04:58 | Inpatient (IN) | payer MEDICARE, MEDICAID ==
[2017-05-31] VITALS (27 sets, daily range): BP systolic 78–168; BP diastolic 47–77; PULSE 55–73; RESP 12–23; TEMP 96.3–99.4; O2SAT 96–100
[~2017-05-31] VITALS: Ht 177.8 cm; Wt 87.2 kg
[~2017-05-31 04:58] MED LIST changes: +HYDR-3533 PO
[2017-05-31] MEDS ORDERED: SODIUM CHLOR 0.9% 1000 ML INJ 1,000 ML IV SCH (05:05)
[2017-05-31] MEDS ORDERED: PANTOPRAZOLE INJ 80 MG in SODIUM CHLORIDE 0.9% INJ 35 ML IV ONE (05:06)
[2017-05-31] MEDS ORDERED: PANTOPRAZOLE INJ 80 MG in SODIUM CHLORIDE 0.9% INJ 100 ML IV SCH ×2 (05:06→09:00)
[2017-05-31] MEDS ORDERED: OCTREOTIDE INJ 500 MCG in SODIUM CHLORID 0.9% 500 ML INJ 500 ML IV SCH (05:06)
[2017-05-31] MEDS ORDERED: ONDANSETRON HCL 4 MG/2 ML VIAL IVP ONE (05:15)
[2017-05-31] MEDS ORDERED: SODIUM CHLORIDE 0.9% FLUSH 10 ML FLUSH IVF PRN ×2 (05:15)
[2017-05-31] MEDS ORDERED: OCTREOTIDE INJ 100 MCG/ML VIAL IV PUSH ONE (05:15)
--- NOTE | 2017-05-31 05:22 | PD ---
HPI Chief Complaint: GI Complaint Time Seen by Provider: 05:05 Travel History International Travel<30 days: No Contact w/Intl Traveler<30days: No Traveled to known affect area: No History of Present Illness HPI The patient is a 56 year old male who presents to the [facility] emergency department with a history of beginning to have bloody emesis at approximately 8 PM last night. The patient reports that he's had vomiting of blood at approximate 4 times. He also reports that he's had multiple episodes of bloody stool. The patient has a history of soft gel varices. This appears to be according to the record related to a prior history of alcohol abuse and hepatitis C. The patient according to the record also has some evidence of what appears to be a hepatocellular carcinoma on CAT scan of the abdomen and pelvis. The patient was brought in by ambulance services. The patient was noted to have an episode of bloody emesis prior to arrival and bloody diarrhea. The patient was noted to have a blood sugar 348 prior to arrival. The patient 's initial blood pressure was 74 systolic. The patient had IV access obtained prior to arrival was given 250 mL normal saline. The patient reports having generalized weakness with dizziness, shortness of breath with exertion, generalized abdominal pain. Otherwise on review of systems, on review of systems, the patient denies having any known recent fevers, cough, congestion, neck pain, chest pain, urinary symptoms, or other neurologic symptoms. PFSH Past Medical History Narrative Medical The patient's past medical history is significant for hepatitis C, cirrhosis, grade for esophageal varices with recurrent esophageal variceal bleeding, portal hypertension, portal vein thrombosis, diabetes mellitus, diabetic neuropathy, chronic back pain with degenerative disc disease, history of a sacral decubitus ulcer, history of pneumonia, history of pancytopenia, and a mass on CT scan of the abdomen and pelvis and his liver which was suspicious for hepatocellular carcinoma. Hx Anticoagulant Therapy: Yes (ASA) Anxiety: No Depression: No Cancer: No Cardiovascular Problems: Yes High Cholesterol: Yes Diabetes: Yes Patient Takes Glucophage: No Diminished Hearing: No Endocrine: Yes Gastrointestinal Disorders: Yes Genitourinary: No Hepatitis: Yes (hep c ) Hiatal Hernia: No Hypertension: Yes Immune Disorder: No Implanted Vascular Access Dvce: Yes Medical other: No Musculoskeletal: Yes (NEUROPATHY) Neurologic: Yes (DIABETIC NEUROPATHY) Psychiatric: No Reproductive: No Respiratory: No Immunizations Current: Yes Thyroid Disease: No Ulcer: Yes Past Surgical History Narrative Surgical The patient's past surgical history is significant for endoscopy and colonoscopy , paracentesis, appendectomy, right shoulder right clavicle ORIF, liver biopsy. Abdominal Surgery: Yes ( PARENCENTESIS ACITES) Appendectomy: Yes Body Medical Devices: PLATE IN RIGHT SHOULDER Cardiac Surgery: No Ear Surgery: No Endocrine Surgery: No Eye Surgery: No Genitourinary Surgery: No Gynecologic Surgery: No Neurologic Surgery: No Oral Surgery: No Pacemaker: No Thoracic Surgery: No Tonsillectomy: Yes Other Surgery: Yes (right clavical with metal, LIVER PARACENTESIS) Social History Alcohol Use: No Tobacco Use: No Substance Use: No Allergies-Medications (Allergen,Severity, Reaction): Coded Allergies: bacitracin (Unverified Allergy, Mild, RASH, 05/31/17) gramicidin D (Unverified Allergy, Mild, 05/31/17) neomycin (Unverified Allergy, Mild, 05/31/17) polymyxin B (Unverified Allergy, Mild, RASH, 05/31/17) Reported Meds & Prescriptions Reported Meds & Active Scripts Active Lortab (Hydrocodone-Acetaminophen) 5-325 Mg Tab 1-2 Tab PO Q6H PRN Lasix (Furosemide) 40 Mg Tab 40 Mg PO DAILY [Lactulose Liq] 30 ML Syrp 30 Ml PO DAILY PRN Hydrocodone-Acetaminophen 5-325 mg Tab 1 Tab PO Q4H PRN DO NOT USE THIS MEDICINE IF YOU WILL DRIVE A CAR OR USE A MACHINE, ONLY USE IT WHEN RESTING AT HOME. Hydrocodone-Acetaminophen 5-325 mg Tab 1 Tab PO TID PRN Propranolol (Propranolol HCl) 10 Mg Tab 10 Mg PO Q12HR Flomax (Tamsulosin HCl) 0.4 Mg Cap 0.8 Mg PO DAILY Xifaxan (Rifaximin) 550 Mg Tab 550 Mg PO BID Reported Metformin (Metformin HCl) 850 Mg Tab 1,000 Mg PO BIDPC With meals Lyrica (Pregabalin) 300 Mg Cap 300 Mg PO TID Spironolactone 100 Mg Tab 100 Mg PO DAILY Pantoprazole (Pantoprazole Sodium) 40 Mg Tab 40 Mg PO BID Ribavirin 200 Mg Cap Tums (Calcium Carbonate (Antacid)) 500 Mg Chew 500 Mg CHEW DAILY PRN Buspirone (Buspirone HCl) 10 Mg Tab 10 Mg PO TID Baclofen 20 Mg Tab 20 Mg PO TID Review of Systems Except as stated in HPI: all other systems reviewed are Neg General / Constitutional: No: Fever Eyes: No: Visual changes HENT: Positive: Lightheadedness, No: Headaches Cardiovascular: Positive: Dyspnea on exertion, No: Chest Pain or Discomfort Respiratory: Positive: Shortness of Breath Gastrointestinal: Positive: Nausea, Vomiting, Diarrhea, Abdominal Pain, Hematemesis, Hematochezia, Changes in Bowel Habits, No: Indigestion, Loss of Appetite Genitourinary: No: Dysuria Musculoskeletal: No: Pain Skin: No Rash Neurologic: Positive: Weakness (generalized weakness), Dizziness, No: Focal Abnormalities, Change in Mentation, Slurred Speech, Sensory Disturbance Psychiatric: No: Depression Endocrine: No: Polydipsia Hematologic/Lymphatic: No: Easy Bruising Physical Exam Narrative General: The patient is a well-developed well-nourished male, uncomfortable appearing on initial arrival, with skin pallor and a blood pressure in the 70s systolic on arrival. Head and Neck exam: Head is normocephalic atraumatic. Eyes: EOMI, pupils are equal round and reactive to light. Nose: Midline septum with pink mucous membranes Mouth: Dentition unremarkable. Moist mucus membranes. Posterior oropharynx is not erythematous. No tonsillar hypertrophy. Uvula midline. Airway patent. Neck: No palpable lymphadenopathy. No nuchal rigidity. No thyromegaly. Cardiovascular: Regular rate and rhythm without murmurs, gallops, or rubs. Lungs: Clear to auscultation bilaterally. No wheezes, rhonchi, or rales. Abdomen: Soft, with reported generalized abdominal discomfort on palpation. No guarding , rebound, or rigidity. Normal bowel sounds are audible. No tenderness point tenderness on palpation specifically over McBurney's point. Negative Vance's sign. Extremities: No clubbing, cyanosis, or edema. 2+ pulses in all 4 extremities. No calf tenderness on palpation. Back: No costovertebral angle tenderness to palpation. Neurologic Exam: Grossly nonfocal. Skin Exam: No rash noted. Intact skin that is warm and diaphoretic. The patient has pale appearing skin Data Data Last Documented VS Vital Signs Date Time Temp Pulse Resp B/P (MAP) Pulse Ox O2 Delivery O2 Flow Rate FiO2 10/2/17 05:28 98.0 65 16 78/47 (57) 99 Room Air Orders Orders I-Stat Profile (05/31/17 05:05) I-Stat Creatinine (05/31/17 05:05) Complete Blood Count With Diff (05/31/17 05:05) Prothrombin Time / Inr (Pt) (05/31/17 05:05) Act Partial Throm Time (Ptt) (05/31/17 05:05) Type And Screen (05/31/17 05:05) Iv Access Insert/Monitor (05/31/17 05:05) Ecg Monitoring (05/31/17 05:05) Oximetry (05/31/17 05:05) Oxygen Administration (05/31/17 05:05) Sodium Chlor 0.9% 1000 Ml Inj (Ns 1000 M (05/31/17 05:05) Sodium Chloride 0.9% Flush (Ns Flush) (05/31/17 05:15) Creatine Kinase (Cpk) (05/31/17 05:06) Ckmb (Isoenzyme) Profile (05/31/17 05:06) Troponin I (05/31/17 05:06) B-Type Natriuretic Peptide (05/31/17 05:06) Urinalysis - C+S If Indicated (05/31/17 05:06) Magnesium (Mg) (05/31/17 05:06) Chest, Single Ap (05/31/17 05:06) Iv Access Insert/Monitor (05/31/17 05:06) Ondansetron Inj (Zofran Inj) (05/31/17 05:15) Sodium Chloride 0.9% Flush (Ns Flush) (05/31/17 05:15) Sodium Chlorid 0.9%... W/Octreotide Inj (05/31/17 05:06) Sodium Chloride 0.9... W/Pantoprazole In (05/31/17 05:06) Sodium Chloride 0.9... W/Pantoprazole In (05/31/17 05:06) Octreotide Inj (Sandostatin Inj) (05/31/17 05:15) Sodium Chlor 0.9% 250 Ml Inj (Ns 250 Ml (05/31/17 05:30) Red Blood Cells (Rbc) (05/31/17 05:06) Admit Order (Ed Use Only) (05/31/17 05:37) Labs Laboratory Tests Test 05/31/17 05:06 White Blood Count 7.8 TH/MM3 Red Blood Count 2.35 MIL/MM3 Hemoglobin 7.3 GM/DL Bedside Hemoglobin 8.2 G/DL Hematocrit 22.9 % Bedside Hematocrit 24.0 % Mean Corpuscular Volume 97.7 FL Mean Corpuscular Hemoglobin 31.0 PG Mean Corpuscular Hemoglobin Concent 31.7 % Red Cell Distribution Width 19.0 % Platelet Count 185 TH/MM3 Mean Platelet Volume 11.1 FL Neutrophils (%) (Auto) 62.9 % Lymphocytes (%) (Auto) 25.7 % Monocytes (%) (Auto) 7.5 % Eosinophils (%) (Auto) 2.4 % Basophils (%) (Auto) 1.5 % Neutrophils # (Auto) 4.9 TH/MM3 Lymphocytes # (Auto) 2.0 TH/MM3 Monocytes # (Auto) 0.6 TH/MM3 Eosinophils # (Auto) 0.2 TH/MM3 Basophils # (Auto) 0.1 TH/MM3 CBC Comment DIFF FINAL Differential Comment Bedside Sodium 138 MMOL/L Bedside Potassium 5.0 MMOL/L Bedside Chloride 102 MMOL/L Bedside Blood Urea Nitrogen 16 MG/DL Bedside Creatinine 0.9 MG/DL Bedside Glucose 401 MG/DL [facility] Medical Decision Making Medical Screen Exam Complete: Yes Emergency Medical Condition: Yes Medical Record Reviewed: Yes Interpretation(s) Last Impressions Chest X-Ray 05/31/17 0506 Signed Impressions: Service Date/Time: Wednesday, May 31, 2017 05:24 - CONCLUSION: Decreasing left medial lung base consolidation. Right lung remains clear. Raúl Greene MD Liver Ultrasound 05/31/17 0000 Signed Impressions: Service Date/Time: Wednesday, May 31, 2017 08:18 - CONCLUSION: 1. Echogenic liver compatible with fatty infiltration or hepatocellular disease. 2. Splenomegaly and ascites 3. No evidence of portal vein thrombosis Regulo Kinney MD ADDENDUM: COMPARISON: MRI ABDOMEN W & W/O CONTRAST, May 19, 2017, 11:16. When comparison this examination there are findings of cavernous transformation of the portal vein with an intact normal vein not identified. Extensive tumor is also identified within the jeanine hepatis. Regulo Kinney MD Chest X-Ray 05/31/17 Signed Impressions: Service Date/Time: Wednesday, May 31, 2017 11:39 - CONCLUSION: 1. Support apparatus in good position as above. Mild basilar and perihilar airspace disease. Alfonso Hernandez MD Abdomen X-Ray 05/31/17 Signed Impressions: Service Date/Time: Wednesday, May 31, 2017 11:46 - CONCLUSION: 1. Chuckie tube tip is projected over the antropyloric region with a balloon across the GE junction. Mild ileus. Alfonso Hernandez MD Differential Diagnosis Variceal bleed, versus hemorrhagic esophagitis, versus Yanci-Miller tear, versus peptic ulcer bleeding, versus AVM, versus diverticulosis Narrative Course During the course of the patients emergency department visit, the patients history, examination, and differential diagnosis were reviewed with the patient. The patient had 2 large-bore IVs place and bilateral upper extremities. The patient was typed and crossmatched for blood. An i-STAT with creatinine was ordered as the patient appeared to be experiencing hemorrhagic shock. The patient will be given blood as soon as it is available, however if the patient's blood pressure does not respond to IV fluid resuscitation with crystalloid, the patient will be given emergency release blood. A review of the electronic medical record reveals that on the patient's last admission he was transferred to a tertiary care center for consideration of a TIPS procedure. Unfortunately, the patient was sent back without the procedure being accomplished as the patient was not considered to be a candidate as he has hepatocellular carcinoma and portal thrombosis. The patient was initially provided Protonix 80 mg IV followed by a Protonix drip , octreotide 50 g IV, followed by an octreotide drip. The patients laboratory studies were reviewed and remarkable for an initial hemoglobin of 8.2, i-STAT with creatinine revealed a glucose of 401, potassium 5.0, creatinine 0.9. Initial coags revealed PT of 15.2, PTT 30.5, urinalysis showed thousand glucose otherwise unremarkable Radiology studies were reviewed and remarkable for a chest x-ray revealed decreasing left medial lung base consolidation, right lung remains clear. The he patients results were discussed with the patient, including the plan of care. I explained that further testing and/ or monitoring is indicated based on the patients history, examination, and/ or laboratory findings. Therefore, I recommended admission for additional evaluation. The patient expressed understanding and was agreeable with this plan. The patient was admitted to the hospital in critical condition and sent to a bed under the care of the intensive care unit. Critical Care Narrative Aggregate critical care time was 35 minutes. Time to perform other separately billable procedures was not included in the critical care time. My time did not include minutes spent treating any other patients simultaneously or on activities that did not directly contribute to the patient's treatment. The services I provided to this patient were to treat and/or prevent clinically significant deterioration that could result in: Hemorrhagic shock, versus respiratory failure from fluid resuscitation I provided critical care services requiring my management, as noted below: Chart data review, documentation time, medication orders and management, vital sign assessments/reviewing monitor data, ordering and reviewing lab tests, ordering and interpreting/reviewing x-rays and diagnostic studies, care of the patient and discussion of the patient with the admitting physicians. Physician Communication Physician Communication The patient's case was discussed with Dr. Landrum who did agree to admit the patient to the intensive care service. Diagnosis Primary Impression: GI bleed Qualified Codes: K92.2 - Gastrointestinal hemorrhage, unspecified Additional Impression: Hematemesis Qualified Codes: K92.0 - Hematemesis Admitting Information Admitting Physician Requests: it Desiree Desouza MD May 31, 2017 05:22
[2017-05-31 05:25] LABS: AUTOMATED NEUTROPHIL # 4.9 TH/MM3 (1.8-7.7); BASOPHIL # 0.1 TH/MM3 (0-0.2); BASOPHIL % 1.5 % (0.0-2.0); EOSINOPHIL # 0.2 TH/MM3 (0-0.4); EOSINOPHIL % 2.4 % (0.0-4.0); HEMATOCRIT 22.9 % (39.0-51.0); HEMO FLAGS DIFF FINAL; LYMPH % 25.7 % (9.0-44.0); MEAN CELL VOLUME 97.7 FL (80.0-100.0); MEAN CORPUSCULAR HGB CONC 31.7 % (32.0-36.0); MONO % 7.5 % (0.0-8.0); NEUT % 62.9 % (16.0-70.0); PLATELET COUNT 185 TH/MM3 (150-450); RED BLOOD COUNT 2.35 MIL/MM3 (4.50-5.90); WHITE BLOOD COUNT 7.8 TH/MM3 (4.0-11.0)
[2017-05-31] MEDS ORDERED: SODIUM CHLOR 0.9% 250 ML INJ 250 ML IV ONE ×2 (05:30→11:30)
--- NOTE | 2017-05-31 05:42 | RADRPT ---
EXAM DATE/TIME: 05/31/2017 05:24 [place] COMPARISON: 05/13/2017. INDICATIONS : Vomiting blood and blood in stool MEDICAL HISTORY : Diabetes mellitus type II. Hypercholesterolemia. Hypertension. Hepatitis C SURGICAL HISTORY : Liver paracentesis ENCOUNTER: Initial ACUITY: 1 day PAIN SCORE: 8/10 LOCATION: Bilateral chest FINDINGS: Left base consolidation improving, now minimal. Right lung remains clear. No large effusion seen. No pneumothorax. CONCLUSION: Decreasing left medial lung base consolidation. Right lung remains clear. Raúl Greene MD on May 31, 2017 at 5:40 Board Certified Radiologist. This report was verified electronically.
[2017-05-31] MEDS ORDERED: CALCIUM CARBONATE 500 MG CHEWABLE TAB CHEW PRN (05:45)
[2017-05-31] MEDS ORDERED: RESP: ALBUTEROL 2.5 MG/IPRATROPIUM 0.5 MG NEB (PRN) INH (06:00)
[2017-05-31] MEDS ORDERED: BISACODYL 10 MG SUPP RECTAL PRN (06:00)
[2017-05-31] MEDS ORDERED: LORazepam 2 MG/ML VIAL IV PUSH PRN (06:00)
[2017-05-31] MEDS ORDERED: LACTULOSE SYRUP 20 GM/30 ML CUP PO PRN ×2 (06:00→07:00)
[2017-05-31] MEDS ORDERED: ACETAMINOPHEN 325 MG TAB PO PRN (06:00)
[2017-05-31] MEDS ORDERED: SODIUM CHLORIDE 0.9% FLUSH 10 ML FLUSH IV FLUSH PRN (06:00)
[2017-05-31] MEDS ORDERED: CHLORHEXIDINE GLUCONATE 2 % 1 PACK (2 CLOTHS) TOP PRN (06:00)
[2017-05-31] MEDS ORDERED: ZOLPIDEM TARTRATE 5 MG TAB PO PRN (06:00)
[2017-05-31] MEDS ORDERED: MAGNESIUM HYDROXIDE SUSP 30 ML CUP PO PRN (06:00)
[2017-05-31] MEDS ORDERED: ONDANSETRON HCL 4 MG/2 ML VIAL IV PUSH PRN (06:00)
[2017-05-31] MEDS ORDERED: MISCELLANEOUS NURSING INFORMATION XX SCH (06:00)
[2017-05-31] MEDS ORDERED: SENNOSIDES 8.6 MG TAB PO PRN (06:00)
[2017-05-31] MEDS: SODIUM CHLOR 0.9% 1000 ML INJ 1,000 ML IV SCH ×3 (06:28→21:48)
[2017-05-31] MEDS: OCTREOTIDE INJ 500 MCG in SODIUM CHLORID 0.9% 500 ML INJ 499.5 ML IV SCH ×2 (06:30→17:00)
[2017-05-31] MEDS: PANTOPRAZOLE SOD 40 MG DELAYED RELEASE TAB PO SCH ×2 (06:35→08:16)
[2017-05-31 06:46] LABS: MAGNESIUM 1.2 MG/DL (1.5-2.5)
[2017-05-31 06:47] LABS: APTT (PATIENT) 30.5 SEC (24.3-30.1); INTERNATIONAL NORMALIZED RATIO 1.4 RATIO; PROTHROMBIN TIME - PATIENT 15.2 SEC (9.8-11.6)
--- NOTE | 2017-05-31 06:56 | HHI.HP ---
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 He was recently admitted the hospital in April with again recurrent life-threatening GI bleeds. At that time he was sent to [facility] in [place] for evaluation of possible TIPS procedure, however he was found to have significant portal vein thrombus with likely associated hepatocellular carcinoma. He was turned down as a candidate for transportation and tips. He was returned back to [facility] where he was discharged after a lengthy discussion with palliative care. At that time he wanted ongoing aggressive goals. He represents with one to 2 day history of hemoptysis it is progressively worse. He endorses vomiting up cupfuls of bright red blood. He has known grade 4 esophageal varices. He came in to the ER with hemoglobin around 7 and was emergently given 4 units of packed red blood cells. He also came in hypotensive. On my evaluation, the patient does appear to be in distress, quite pale, and fatigue. His hypotension is resolved on my evaluation. He was actively vomiting blood. He denies any other symptoms including chest pain, shortness of breath, fever, chills. Only endorses hemoptysis. I did talk to him at length about the fact that without the ability to anticoagulate his portal vein thrombus or tips or transplant candidate, we had no real medical solution for his recurrent life- threatening GI bleeds. At that point I told unlikely one of these GI bleeds is going to be fatal, and he expressed understanding of this, but requested to talk to his parents before making any decisions about hospice. He was taken emergently to endoscopy after my evaluation where it was found that he had active ongoing massive hemorrhage from esophageal varices. Attempts were made at banding, but he remained hypotensive in hemorrhagic shock. River drain was placed. He was taken to PACU where anesthesia placed large bore central venous access. I reevaluated the patient and the PACU and continued his ongoing resuscitative efforts. Discussions were ongoing between GI and interventional radiology, where the patient was felt not to be any candidate for any sort of endovascular intervention. He was taken to the surgical ICU, where we continued large-volume product administration. He developed hyperkalemia is resolved this, and oliguric acute kidney injury. His family arrived at bedside and we had a long discussion about what the patient would want, and the parents who were named previously his medical decision-maker's elected to make the patient DNR and pursue comfort measures and to stop blood transfusions and ongoing aggressive measures, since we had no other ability to stop the underlying hemorrhage. Review of Systems ROS Limitations: Clinical Condition Constitutional: DENIES: Fever, Chills Respiratory: DENIES: Cough, Hemoptysis, Sputum production, Shortness of breath Cardiovascular: DENIES: Chest pain, Dyspnea on Exertion Gastrointestinal: COMPLAINS OF: Black stools, Diarrhea, DENIES: Bloody stools, Constipation Past Family Social History Allergies: Coded Allergies: bacitracin (Unverified Allergy, Mild, RASH, 05/31/17) gramicidin D (Unverified Allergy, Mild, 05/31/17) neomycin (Unverified Allergy, Mild, 05/31/17) polymyxin B (Unverified Allergy, Mild, RASH, 05/31/17) Past Medical History Grade 4 esophageal varices Recurrent esophageal variceal bleeding Portal hypertension Esophageal cirrhosis Hepatitis C Diabetes mellitus Diabetic neuropathy History of portal vein thrombosis DDD Sacral decubitus ulcer recent HCAP Klebsiella ESBL positive Pancytopenia Past Surgical History EGD//colonoscopy paracentesis Appendectomy Plating right shoulder/right clavicle Liver biopsy Reported Medications Hydrocodone-Acetaminophen 5-325 mg Tab 1 Tab PO TID PRN Propranolol (Propranolol HCl) 10 Mg Tab 10 Mg PO Q12HR Flomax (Tamsulosin HCl) 0.4 Mg Cap 0.8 Mg PO DAILY Xifaxan (Rifaximin) 550 Mg Tab 550 Mg PO BID Metformin (Metformin HCl) 850 Mg Tab 1,000 Mg PO BIDPC Metformin (Metformin HCl) 850 Mg Tab 1,000 Mg PO DAILY Nadolol 20 Mg Tab 20 Mg PO DAILY Amlodipine (Amlodipine Besylate) 5 Mg Tab 5 Mg PO DAILY Lyrica (Pregabalin) 300 Mg Cap 300 Mg PO TID Spironolactone 100 Mg Tab 100 Mg PO DAILY Pantoprazole (Pantoprazole Sodium) 40 Mg Tab 40 Mg PO BID Penicillin V Potassium 500 Mg Tab 500 Mg PO Q6H Epclusa 400 mg-100 mg Tablet (Sofosbuvir/Velpatasvir) 400 Mg-100 Mg Tablet Ribavirin 200 Mg Cap Tums (Calcium Carbonate (Antacid)) 500 Mg Chew 500 Mg CHEW DAILY PRN Buspirone (Buspirone HCl) 10 Mg Tab 10 Mg PO TID Baclofen 20 Mg Tab 20 Mg PO TID Active Ordered Medications See MAR Family History No family history of liver disease. Social History Remote history of alcohol and substance abuse. Quit drinking 6 years ago. Occasional tobacco abuse Physical Exam Vital Signs Vital Signs Date Time Temp Pulse Resp B/P (MAP) Pulse Ox O2 Delivery O2 Flow Rate FiO2 05/31/17 06:39 97.6 62 16 95/52 99 05/31/17 06:35 97.6 58 16 95/52 99 05/31/17 06:24 97.9 58 16 117/56 96 05/31/17 06:20 97.9 58 16 117/56 05/31/17 06:01 60 18 84/49 (61) Room Air 05/31/17 05:28 98.0 65 16 78/47 (57) 99 Room Air 05/31/17 05:27 99 Room Air 05/31/17 05:27 99 Room Air 05/31/17 05:00 73 16 84/53 (63) 100 Physical Exam On my initial physical exam, the patient was diaphoretic and distress, cool and clammy, normal blood pressure and heart rate in the 50s. Evidence of bright red blood around the mouth. Poorly perfused extremities. Laboratory Laboratory Tests Test 05/31/17 05:06 05/31/17 05:59 White Blood Count 7.8 Red Blood Count 2.35 Hemoglobin 7.3 Bedside Hemoglobin 8.2 Hematocrit 22.9 Bedside Hematocrit 24.0 Mean Corpuscular Volume 97.7 Mean Corpuscular Hemoglobin 31.0 Mean Corpuscular Hemoglobin Concent 31.7 Red Cell Distribution Width 19.0 Platelet Count 185 Mean Platelet Volume 11.1 Neutrophils (%) (Auto) 62.9 Lymphocytes (%) (Auto) 25.7 Monocytes (%) (Auto) 7.5 Eosinophils (%) (Auto) 2.4 Basophils (%) (Auto) 1.5 Neutrophils # (Auto) 4.9 Lymphocytes # (Auto) 2.0 Monocytes # (Auto) 0.6 Eosinophils # (Auto) 0.2 Basophils # (Auto) 0.1 CBC Comment DIFF FINAL Differential Comment Bedside Sodium 138 Bedside Potassium 5.0 Bedside Chloride 102 Bedside Blood Urea Nitrogen 16 Bedside Creatinine 0.9 Bedside Glucose 401 Prothrombin Time 15.2 Prothromb Time International Ratio 1.4 Activated Partial Thromboplast Time 30.5 Magnesium Level 1.2 Total Creatine Kinase 38 Troponin I 0.02 Result Diagram: 05/31/17 0506 Imaging Last Impressions Chest X-Ray 05/31/17 0506 Signed Impressions: Service Date/Time: Wednesday, May 31, 2017 05:24 - CONCLUSION: Decreasing left medial lung base consolidation. Right lung remains clear. Raúl Greene MD Liver Ultrasound 05/31/17 0000 Signed Impressions: Service Date/Time: Wednesday, May 31, 2017 08:18 - CONCLUSION: 1. Echogenic liver compatible with fatty infiltration or hepatocellular disease. 2. Splenomegaly and ascites 3. No evidence of portal vein thrombosis Regulo Kinney MD ADDENDUM: COMPARISON: MRI ABDOMEN W & W/O CONTRAST, May 19, 2017, 11:16. When comparison this examination there are findings of cavernous transformation of the portal vein with an intact normal vein not identified. Extensive tumor is also identified within the jeanine hepatis. Regulo Kinney MD Abdomen X-Ray 05/31/17 0000 Signed Impressions: Service Date/Time: Wednesday, May 31, 2017 11:46 - CONCLUSION: 1. Chuckie tube tip is projected over the antropyloric region with a balloon across the GE junction. Mild ileus. MD Leeann Reynoldsi VTE Risk Assessment Caprini VTE Risk Assessment: Mod/High Risk (score >= 2) VTE Pharm Contraindication: Hemorrhage Caprini Risk Assessment Model Point Value = 1 Point Value = 2 Point Value = 3 Point Value = 5 Age 41-60 Minor surgery BMI > 25 kg/m2 Swollen legs Varicose veins or History of unexplained or recurrent spontaneous Oral contraceptives or hormone replacement Sepsis (< 1 month) Serious lung disease, including pneumonia (< 1 month) Abnormal pulmonary function Acute myocardial infarction Congestive heart failure (< 1 month) History of inflammatory bowel disease Medical patient at bed rest Age 61-74 Arthroscopic surgery Major open surgery (> 45 min) Laparoscopic surgery (> 45 min) Malignancy Confined to bed (> 72 hours) Immobilizing plaster cast Central venous access Age >= 75 History of VTE Family history of VTE Factor V Leiden Prothrombin [id number] Lupus anticoagulant Anticardiolipin antibodies Elevated serum homocysteine Heparin-induced thrombocytopenia Other congenital or acquired thrombophilia Stroke (< 1 month) Elective arthroplasty Hip, pelvis, or leg fracture Acute spinal cord injury (< 1 month) Prophylaxis Regimen Total Risk Factor Score Risk Level Prophylaxis Regimen 0-1 Low Early ambulation 2 Moderate Order ONE of the following: *Sequential Compression Device (SCD) *Heparin 5000 units SQ BID 3-4 Higher Order ONE of the following medications: *Heparin 5000 units SQ TID *Enoxaparin/Lovenox 40 mg SQ daily (WT < 150 kg, CrCl > 30 mL/min) *Enoxaparin/Lovenox 30 mg SQ daily (WT < 150 kg, CrCl > 10-29 mL/min) *Enoxaparin/Lovenox 30 mg SQ BID (WT < 150 kg, CrCl > 30 mL/min) AND/OR *Sequential Compression Device (SCD) 5 or more Highest Order ONE of the following medications: *Heparin 5000 units SQ TID (Preferred with Epidurals) *Enoxaparin/Lovenox 40 mg SQ daily (WT < 150 kg, CrCl > 30 mL/min) *Enoxaparin/Lovenox 30 mg SQ daily (WT < 150 kg, CrCl > 10-29 mL/min) *Enoxaparin/Lovenox 30 mg SQ BID (WT < 150 kg, CrCl > 30 mL/min) AND *Sequential Compression Device (SCD) Assessment and Plan Assessment and Plan Assessment: 56-year-old male with end-stage liver disease and active life threatening esophageal variceal hemorrhage. Critically ill, and decompensating from hemorrhagic shock, acute kidney injury, worsening endorgan damage, acute hypoxic hypercarbic respiratory failure. I made multiple evaluations and reevaluation's throughout the day, and continue to direct transfusion and management of his acute life-threatening illnesses until the point at which the patient's family elected to transition her goals to comfort measures. Active problems: Hepatic encephalopathy Acute hypoxic and hypercarbic respiratory failure Hemorrhagic shock Anemia secondary to acute blood loss Coagulopathy secondary to end-stage liver disease Thrombus cytopenia secondary to end-stage liver disease Portal vein thrombosis Active and life-threatening esophageal variceal bleeding Massive hematemesis Plan: - going forward, will pursue comfort measures - stop transfusions - will discuss with family palliative extubation vs. no escalation of care: do not want patient to experience ongoing massive hematemesis while palliative efforts are ongoing. This patient remains critically ill with one or more organ systems which are or may become a threat to life. I have spent in excess of 105 minutes discontinuously in the care and management of this patient. This represents time while are ulcer aggressive, from the initial time of my evaluation this morning, through his initial resuscitative efforts, through his post endoscopy resuscitative efforts, his management of multiple end organ dysfunctions, coagulopathy, ongoing bleeding, up until a time our goals transitioned to comfort measures. This time is exclusive of procedures, and includes, but is not limited to, evaluation of the patient, review of the medical record, discussions with family, consultants, nursing staff, or respiratory therapy, and documentation in the medical record. Martin Stinson MD May 31, 2017 06:56
[2017-05-31] MEDS ORDERED: SODIUM PHOSPHATE INJ 30 MMOL in SODIUM CHLOR 0.9% 250 ML INJ 240 ML IV PRN (07:00)
[2017-05-31] MEDS ORDERED: POTASSIUM PHOSPHATE INJ 30 MMOL in SODIUM CHLOR 0.9% 250 ML INJ 250 ML IV PRN (07:00)
[2017-05-31] MEDS ORDERED: MAGNESIUM SULFATE INJ 2 GM in SODIUM CHLORIDE 0.9% INJ 96 ML IV PRN (07:00)
[2017-05-31] MEDS ORDERED: MAGNESIUM OXIDE 400 MG TAB PO PRN (07:00)
[2017-05-31] MEDS ORDERED: POTASSIUM CHLOR 20 MEQ PREMIX 100 ML IV PRN ×2 (07:00)
[2017-05-31] MEDS ORDERED: MAGNESIUM SULFATE INJ 4 GM in SODIUM CHLORIDE 0.9% INJ 92 ML IV PRN (07:00)
[2017-05-31] MEDS ORDERED: POTASSIUM PHOSPHATE MONOBASIC 500 MG TAB PO PRN (07:00)
[2017-05-31] MEDS ORDERED: POTASSIUM PHOSPHATE MONOBASIC 500 MG TAB PO/TUBE PRN (07:00)
[2017-05-31] MEDS ORDERED: POTASSIUM CHLOR 40 MEQ PREMIX 100 ML IV PRN ×2 (07:00)
[2017-05-31] MEDS: cefTRIAXone INJ 1,000 MG in SODIUM CHLORIDE 0.9% INJ 100 ML IV SCH (08:00)
[2017-05-31] MEDS: BACLOFEN 20 MG TAB PO SCH ×3 (08:16→16:30)
[2017-05-31] MEDS: TAMSULOSIN HCL 0.4 MG CAP PO SCH (08:16)
[2017-05-31] MEDS: DOCUSATE SODIUM 50 MG/SENNA 8.6 MG TAB PO SCH ×2 (08:16→20:22)
[2017-05-31] MEDS: PREGABALIN 100 MG CAP PO SCH ×3 (08:16→16:30)
[2017-05-31] MEDS: RIFAXIMIN 550 MG TAB PO SCH ×2 (08:16→20:22)
[2017-05-31] MEDS: SODIUM CHLORIDE 0.9% FLUSH 10 ML FLUSH IV FLUSH SCH ×2 (08:17→20:23)
[2017-05-31] MEDS: busPIRone HCL 10 MG TAB PO SCH ×3 (08:17→16:30)
--- NOTE | 2017-05-31 08:54 | RADRPT ---
EXAM DATE/TIME: 05/31/2017 08:18 This report includes an Addendum and supersedes previous reports for this exam. [facility] COMPARISON: US ABDOMEN - LIVER, May 05, 2017, 12:56. INDICATIONS : Evaluate portal vein thrombosis. MEDICAL HISTORY : Hypercholesterolemia. Hepatitis C. Diabetic neuropathy. HTN. Ulcer. Ascites. Diabetes. Liver diseas e. Anticoagulant therapy, Aspirin. ESBL. SURGICAL HISTORY : Tonsillectomy. Appendectomy. Paracentesis. Previous pins placed and removed to hands. Right clavicu lar metal plate. Blood transfusions. ENCOUNTER: Subsequent ACUITY: 1 day PAIN SCORE: 4/10 LOCATION: Bilateral upper quadrant MEASUREMENTS: LIVER: 18.3 cm length COMMON DUCT: 8 mm RIGHT KIDNEY: 12.6 x 5.7 x 5.8 cm SPLEEN: 18.3 cm length FINDINGS: Ultrasound of the upper abdomen demonstrates increased echogenicity of the liver compatible with fatt y infiltration or hepatocellular disease. The spleen is enlarged. There is hepatopedal flow within th e portal vein. There is gallbladder wall thickening without stones in this patient with ascites this is a nonspecific finding. CONCLUSION: 1. Echogenic liver compatible with fatty infiltration or hepatocellular disease. 2. Splenomegaly and ascites 3. No evidence of portal vein thrombosis Regulo Kinney MD on May 31, 2017 at 8:52 Board Certified Radiologist. This report was verified electronically. ADDENDUM: COMPARISON: MRI ABDOMEN W & W/O CONTRAST, May 19, 2017, 11:16. When comparison this examination there are findings of cavernous transformation of the portal vein wi th an intact normal vein not identified. Extensive tumor is also identified within the jeanine hepatis. Regulo Kinney MD on May 31, 2017 at 10:53 Board Certified Radiologist. This report was verified electronically.
--- NOTE | 2017-05-31 08:56 | PD.CONS ---
HPI History of Present Illness This is a 56 year old with a history of liver cirrhosis, esophageal varices, portal gastropathy, hepatitis C- Genotype 3a (recently on Epclusa/ribavirin as outpatient), who was recently hospitalized for upper GI Bleeding from 05/04/17-. He was evaluated with EGD (05/05/17)----> There was a nipple sign on a large distal varix and that seems to be where the bleeding was from. 4 bands applied on 3 varices. Bleeding seemed controlled. There was a great deal of blood in the upper stomach. The stomach and duodenum could not be examined further, cannot rule out gastric varices. He was treated with octreotide and protonix drips and IR was consulted for evaluation for TIPS procedure. However , he was deemed not be a candidate at this facility secondary to history portal vein occlusion in the liver hilum with reconstitution of parenchymal portal vein branches on CT scan 09/17/16. He was then transferred to [facility] for possible TIPS procedure. While at [facility], he was found to likely have hepatocellular carcinoma on CT. There were questionable multifocal arterial lesions likely consistent with this diagnosis. MR liver was to be performed but no information sent. TIPS is contraindicated with portal vein thrombosis/cancer therefore patient was transferred back to this facility. Here, he was evaluated by oncology with AFP level which was 3.1 on . MRI abdomen with and without contrast (05/19/17)---> Cirrhotic liver with completely thrombosed portal vein including the main portal vein and right and left intrahepatic branches. I do not see an enhancing mass or definite enhancement within the thrombus to indicated tumor thrombus. Therefore, this may be bland thrombus. No suspicious lesion is identified within the liver. there are 2 nodular areas of arterial hyperenhancement that are not seen on the subsequent series suggesting that these may represent atypical nodules. Attention should be paid to these at followup imaging. Findings indicative of portal hypertension, including splenomegaly, ascites, and varices. Dr. Tavarez reviewed the MRI and there was no suspicious findings for hepatocellular carcinoma and they signed off. During this hospitalization, he underwent multiple US guided paracentesis and the cytology was negative for malignant cells. He was discharged home on 05/21 with Lasix 40mg po daily, pantoprazole 40mg po BID, Propranolol 10mg q12h, Xifaxan 550mg po BID, Spironolactone 100mg po daily, and Lactulose. He has an outpatient fu appointment with our office on 06/10/17. He reports that he was doing well up until yesterday. He went to bed around 8pm and then woke up around 9pm or 10pm with a small amount of red blood coming from his mouth. Initially, it was a small amount and he was unsure if he bit his tongue. However, he then started having nausea/vomiting consisting of bright red blood and large blood clots and came to the ER for further evaluation. When he arrived to the ER, he also started having hematochezia, passing dark red bloody stool. He complains of mild diffuse abdominal cramping and nausea. He does not drink ETOH- quit 6 years ago and does not take NSAIDs. He was on Epclusa for his HCV Genotype 3a and states that he completed 5-6 weeks, but has not been on this since his last hospitalization. (Yumiko Vale) PFSH Past Medical History Grade 4 esophageal varices Recurrent ascites Recurrent esophageal variceal bleeding Portal hypertension Esophageal cirrhosis Hepatitis C, Genotype 3a Diabetes mellitus Diabetic neuropathy Portal vein thrombosis DDD Sacral decubitus ulcer recent HCAP Klebsiella ESBL positive Pancytopenia Past Surgical History EGD//colonoscopy Paracentesis Appendectomy Plating right shoulder/right clavicle Liver biopsy (Yumiko Vale) Coded Allergies: bacitracin (Unverified Allergy, Mild, RASH, 05/31/17) gramicidin D (Unverified Allergy, Mild, 05/31/17) neomycin (Unverified Allergy, Mild, 05/31/17) polymyxin B (Unverified Allergy, Mild, RASH, 05/31/17) Medications Allergies Coded Allergies Type Severity Reaction Last Updated Verified bacitracin Allergy Mild RASH 05/31/17 No gramicidin D Allergy Mild 05/31/17 No neomycin Allergy Mild 05/31/17 No polymyxin B Allergy Mild RASH 05/31/17 No Active Scripts Medications Dose Route/Sig Max Daily Dose Days Date Category Dose Instructions Lortab (Hydrocodone-Acetaminophen) 5-325 Mg Tab 1-2 Tab PO Q6H PRN 05/27/17 Rx Lasix (Furosemide) 40 Mg Tab 40 Mg PO DAILY 05/21/17 Rx [Lactulose Liq] 30 ML Syrp 30 Ml PO DAILY PRN 05/21/17 Rx Hydrocodone-Acetaminophen 5-325 mg Tab 1 Tab PO Q4H PRN 05/21/17 Rx DO NOT USE THIS MEDICINE IF YOU WILL DRIVE A CAR OR USE A MACHINE, ONLY USE IT WHEN RESTING AT HOME. Metformin (Metformin HCl) 850 Mg Tab 1,000 Mg PO BIDPC 05/04/17 Reported With meals Lyrica (Pregabalin) 300 Mg Cap 300 Mg PO TID 05/04/17 Reported Spironolactone 100 Mg Tab 100 Mg PO DAILY 05/04/17 Reported Pantoprazole (Pantoprazole Sodium) 40 Mg Tab 40 Mg PO BID 05/04/17 Reported Ribavirin 200 Mg Cap 05/04/17 Reported Hydrocodone-Acetaminophen 5-325 mg Tab 1 Tab PO TID PRN 02/09/17 Rx Propranolol (Propranolol HCl) 10 Mg Tab 10 Mg PO Q12HR 01/09/17 Rx Flomax (Tamsulosin HCl) 0.4 Mg Cap 0.8 Mg PO DAILY 12/22/16 Rx Xifaxan (Rifaximin) 550 Mg Tab 550 Mg PO BID 12/22/16 Rx Tums (Calcium Carbonate (Antacid)) 500 Mg Chew 500 Mg CHEW DAILY PRN 12/01/16 Reported Buspirone (Buspirone HCl) 10 Mg Tab 10 Mg PO TID 09/17/16 Reported Baclofen 20 Mg Tab 20 Mg PO TID 09/17/16 Reported Family History No family history of liver disease. Social History Remote history of alcohol and substance abuse. Quit drinking 6 years ago. Occasional tobacco abuse (Yumiko Vale) Review of Systems Constitutional: COMPLAINS OF: Fatigue, DENIES: Fever, Chills Respiratory: COMPLAINS OF: Cough Cardiovascular: DENIES: Chest pain Gastrointestinal: COMPLAINS OF: Abdominal pain, Bloody stools, Diarrhea, Nausea , Vomiting, Swelling of Abdomen, Heartburn, DENIES: Black stools, Constipation Musculoskeletal: COMPLAINS OF: Back pain Integumentary: DENIES: Abnormal pigmentation Hematologic/lymphatic: COMPLAINS OF: Bruising Neurologic: DENIES: Headache Psychiatric: DENIES: Confusion (Yumiko Vale) GI Exam Vitals I&O Vital Signs Date Time Temp Pulse Resp B/P (MAP) Pulse Ox O2 Delivery O2 Flow Rate FiO2 05/31/17 08:00 56 16 99/54 (69) 97 05/31/17 07:00 58 16 108/60 (76) 97 05/31/17 06:39 97.6 62 16 95/52 99 05/31/17 06:35 97.6 58 16 95/52 99 05/31/17 06:24 97.9 58 16 117/56 96 05/31/17 06:20 97.9 58 16 117/56 05/31/17 06:01 60 18 84/49 (61) Room Air 05/31/17 05:28 98.0 65 16 78/47 (57) 99 Room Air 05/31/17 05:27 99 Room Air 05/31/17 05:27 99 Room Air 05/31/17 05:00 73 16 84/53 (63) 100 I/O 05/30/17 05/30/17 05/30/17 05/31/17 05/31/17 05/31/17 07:00 15:00 23:00 07:00 15:00 23:00 Intake Total 1035 ml 830 ml Balance 1035 ml 830 ml IV Total 1035 ml Packed Cells 800 ml Blood Product IV Normal Saline Flush 30 ml Laboratory Test 05/31/17 05:06 05/31/17 05:59 White Blood Count 7.8 TH/MM3 Red Blood Count 2.35 MIL/MM3 Hemoglobin 7.3 GM/DL Bedside Hemoglobin 8.2 G/DL Hematocrit 22.9 % Bedside Hematocrit 24.0 % Mean Corpuscular Volume 97.7 FL Mean Corpuscular Hemoglobin 31.0 PG Mean Corpuscular Hemoglobin Concent 31.7 % Red Cell Distribution Width 19.0 % Platelet Count 185 TH/MM3 Mean Platelet Volume 11.1 FL Neutrophils (%) (Auto) 62.9 % Lymphocytes (%) (Auto) 25.7 % Monocytes (%) (Auto) 7.5 % Eosinophils (%) (Auto) 2.4 % Basophils (%) (Auto) 1.5 % Neutrophils # (Auto) 4.9 TH/MM3 Lymphocytes # (Auto) 2.0 TH/MM3 Monocytes # (Auto) 0.6 TH/MM3 Eosinophils # (Auto) 0.2 TH/MM3 Basophils # (Auto) 0.1 TH/MM3 CBC Comment DIFF FINAL Differential Comment Bedside Sodium 138 MMOL/L Bedside Potassium 5.0 MMOL/L Bedside Chloride 102 MMOL/L Bedside Blood Urea Nitrogen 16 MG/DL Bedside Creatinine 0.9 MG/DL Bedside Glucose 401 MG/DL Prothrombin Time 15.2 SEC Prothromb Time International Ratio 1.4 RATIO Activated Partial Thromboplast Time 30.5 SEC Magnesium Level 1.2 MG/DL Total Creatine Kinase 38 U/L Troponin I 0.02 NG/ML B-Type Natriuretic Peptide 421 PG/ML Physical Examination HEENT: Normocephalic; atraumatic; no jaundice. CHEST: CTA CARDIAC: SB ABDOMEN: Soft, nondistended, nontender; hepatosplenomegaly; bowel sounds are present in all four quadrants. Vomited moderate amount red blood with large blood clots while i was in the room, moderate ascites EXTREMITIES: Trace ble edema. SKIN: Normal; no rash; no jaundice. [employer]: No focal deficits; alert and oriented times three. (Yumiko Vale) Assessment and Plan Plan ASSESSMENT: - Upper GIB secondary to esophageal varices. Recent hospitalization for the same 05/04/17-05/21/17. EGD (05/05/17)----> There was a nipple sign on a large distal varix and that seems to be where the bleeding was from. 4 bands applied on 3 varices. Bleeding seemed controlled. There was a great deal of blood in the upper stomach. The stomach and duodenum could not be examined further, cannot rule out gastric varices. IR was consulted for evaluation for TIPS procedure. However, he was deemed not be a candidate at this facility secondary to history portal vein occlusion in the liver hilum with reconstitution of parenchymal portal vein branches on CT scan 09/17/16. S/P evaluation at [facility] for possible TIPS procedure, but deemed not a candidate secondary to portal vein thrombosis and possible HCC on CT. MRI at this facility did not appreciate any suspicious findings of HCC. Vomiting moderate amount red blood with large blood clots. HH 7.3/ 22.9, INR 1.4, Plt 185. SB (on BB), 99/54. Actively bleeding. On PPI gtt and octreotide. Going to OR for EGD with possible band ligation. - Esophageal varices. Octreotide, Protonix gtts. Going for egd with band ligation. - Anemia, acute blood loss. 3rd unit up. HH 7.3/22.9 - Coagulopathy. Stable. 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 No ETOH x 6 years. Recently on Epclusa /ribavirin X ~5-6 weeks per patient or HCV Genotype 3as outpatient. This was not resumed after his last discharge. He was recently evaluated at [facility], but deemed not a candidate for TIPS secondary to suspected HCC. He was evaluated by oncology at this facility and had AFP 3.1 and an MRI () that did not appreciate any suspicious findings for HCC and therefore they signed off. CMP not drawn yet. Will need to get to calculate MELD. His Plt/INR is not too bad. - Recent Portal vein thrombosis. MRI (05/19/17) noted completely thrombosed portal vein including the main portal vein and right and left intrahepatic branches. - Hepatitis C, Genotype 3a. Pt reports that he had 5-6 weeks of On Epclusa as outpatient, but did not resume after his last hospitalization and was going to discuss this at his next fu appointment on 06/10. - Hepatic encephalopathy. Lethargic, but oriented x 3 Add lactulose/xifaxan - Ascites. He required multiple paracentesis during his last hospitalization, but this seems to be better controlled at this time. He does have a small amount, but no significant distention. Lasix, Spironolactone at home. - Hx HTN (now hypotensive), Hyperlipidemia, BPH, DM, Neuropathy per attending. PLAN: - Plan for egd with possible band ligation - Obtain consents - NPO - Octreotide gtt - Protonix gtt - Ceftriaxone - Monitor HH, INR - Transfuse as necessary - CMP now and in am - Will need to be started on his lasix and spironolactone, but will get CMP first to evaluate his kidney function - Change lactulose to BID dosing - Liver US to evaluate portal vein - Supportive care - Further recommendations to follow based on results of above - Pt seen and examined by Dr. Minor and myself and this note is written on her behalf (Yumiko Vale) Physician Comments seen, examined agree with above (Jody Minor MD) Yumiko Vale May 31, 2017 08:56 Jody Minor MD May 31, 2017 18:16
[2017-05-31] MEDS: LACTULOSE SYRUP 20 GM/30 ML CUP PO SCH ×3 (09:00→20:22)
[2017-05-31] MEDS ORDERED: NITROGLYCERIN-D5W 50 MG/250 ML 250 ML ONE (10:12)
[2017-05-31] MEDS ORDERED: EPINEPHrine HCL (1:10,000) 1 MG/10 ML SYRINGE OTHER ONE (10:17)
[2017-05-31] MEDS ORDERED: DO NOT ADM ANY ANTICOAGULANT DRUGS PRN (10:44)
[2017-05-31] MEDS ORDERED: PROPOFOL 1000 MG/100 ML INJ 100 ML ONE (10:47)
[2017-05-31] MEDS: PROPOFOL 1000 MG/100 ML INJ 100 ML IV SCH ×4 (10:50→22:20)
--- NOTE | 2017-05-31 11:01 | GIPROC ---
[facility] [address] [facility]. [facility] [place], [address] EGD PROCEDURE REPORT EXAM DATE: 05/31/2017 PATIENT NAME: Azael Arzola MR #: [id number] BIRTHDATE: 1960 ATTENDING: Jody Minor MD ORDER #: [id number] POLISHER E[employer]GL[employer] FRAMES: Aly Hanna and Vel Isabel STATUS: inpatient INDICATIONS: The patient is a 56 yr old male here for an EGD due to gi bleeding history of liver cirrhosis, esophageal varices PROCEDURE PERFORMED: EGD w/ control of bleeding EGD w/ directed submucosal injection(s), any substance EGD w/ band ligation of varices egd with clips MEDICATIONS: None and Per Anesthesia. TOPICAL ANESTHETIC: CONSENT: The patient understands the risks and benefits of the procedure and understands that these risks include, but are not limited to: sedation, allergic reaction, infection, perforation and/or bleeding. Alternative means of evaluation and treatment include, among others: physical exam, x-rays, and/or surgical intervention. The patient elects to proceed with this endoscopic procedure. medical equipment was checked for proper function. Hand hygiene and appropriate measures for infection prevention was taken. After the risks, benefits and alternatives of the procedure were thoroughly explained, Informed consent was verified, confirmed and timeout was successfully executed by the treatment team. The patient was anesthetized with topical anesthesia and the Pentax [id number] endoscope was introduced through the mouth and advanced to the second portion of the duodenum. Retroflexed views revealed old blood and food in stomach The gastroscope was then slowly withdrawn and removed. Esophageal varices -s/p banding -5 ulcers in esophagus from previous banding after band application, patient started bleeding actively from one of the varices, spurting blood-3 clips applied, epi injected 1:10, 000 - 10 cc-still active bleeding-Chuckie tube inserted-I was not able to place through the nose , possible deviated septum, due to urgency and continues bleed-place it through the mouth , inflated as per protocol patient was evaluted by IR-not a candidate for TIPS he was already evaluted at tertiary center for TIPS-felt not a candidate abnormal ekg changes- cardiology consulted spoke with mom over the phone -updated. ADVERSE EVENTS: There were no complications. IMPRESSIONS: 1. Esophageal varices -s/p banding -5 ulcers in esophagus from previous banding after band application, patient started bleeding actively from one of the varices, spurting blood-3 clips applied, epi injected 1:10, 000 - 10 cc-still active bleeding-Chuckie tube inserted-I was not able to place through the nose , possible deviated septum, due to urgency and continues bleed-place it through the mouth , inflated as per protocol patient was evaluted by IR-not a candidate for TIPS he was already evaluted at tertiary center for TIPS-felt not a candidate abnormal ekg changes- cardiology consulted spoke with mom over the phone -updated 2. Retroflexed views revealed old blood and food in stomach RECOMMENDATIONS: 1. Anti-reflux regimen 2. Stat labs-cbc, cmp,inr transfuse to keep hb more than 8 cardiology consult poor prognosis reconsult palliative care correct coagulopathy octrotide, protonix , iv antibiotics PATIENT CONDITION: fair DISPOSITION: Inpatient REPEAT EXAM: Return 1 day EGD Jody Minor MD eSigned: Jody Minor MD 05/31/2017 11:01 AM cc: PATIENT NAME: Azael Arzola MR#: [id number]
--- NOTE | 2017-05-31 11:27 | PD.CONS ---
HPI Consult Requested By Primary Care Physician Long Huerta DO History of Present Illness 56 year old with a history of liver cirrhosis, esophageal varices, portal gastropathy, hepatitis C, hepatocellular carcinoma, completely thrombosed portal vein including the main portal vein and right and left intrahepatic branches, portal hypertension, splenomegaly, ascites, and varices. Admitted with nausea/vomiting consisting of bright red blood and large blood clots. When he arrived to the ER, he also started having hematochezia, passing dark red bloody stool. Patient went to EGD which was complicatedw tih acute GI bleeding and EKG changes. Cardiology consulted for further management and evaluation. Review of Systems ROS Limitations: Intubated Consitutional: DENIES: Fatigue, Fever, Chills, Weight gain, Weight loss Eyes: DENIES: Amaurosis Fugax, Change in vision HEENT: DENIES: Lightheadedness, Change in hearing Respiratory: DENIES: See HPI, Cough, Snoring, Shortness of breath, Wheezing, Sputum production Cardiovascular: DENIES: See HPI, Chest pain, Palpitations, Syncope, Tachycardia Gastrointestinal: DENIES: Nausea, Vomiting, Change in bowel habits, Reflux, Bloody stools, Melena Genitourinary: DENIES: Urinary incontinence, Difficulty voiding Integumentary: DENIES: Rash Neurologic: DENIES: Tingling or numbness, Memory problems, Poor Balance, Stroke symptoms Musculoskeletal: DENIES: Joint pain, Muscle pain, Limited range of motion, Back pain Psychiatric: DENIES: Anxiety, Depression, Sleep disturbances Hematologic: DENIES: Bruising tendencies, Bleeding tendencies Endocrine: DENIES: Weight gain, Weight loss, Thyroid disease Past Family Social History Allergies: Coded Allergies: bacitracin (Unverified Allergy, Mild, RASH, 05/31/17) gramicidin D (Unverified Allergy, Mild, 05/31/17) neomycin (Unverified Allergy, Mild, 05/31/17) polymyxin B (Unverified Allergy, Mild, RASH, 05/31/17) Past Medical History Grade 4 esophageal varices Recurrent ascites Recurrent esophageal variceal bleeding Portal hypertension Esophageal cirrhosis Hepatitis C, Genotype 3a Diabetes mellitus Diabetic neuropathy Portal vein thrombosis DDD Sacral decubitus ulcer recent HCAP Klebsiella ESBL positive Pancytopenia Past Surgical History EGD//colonoscopy Paracentesis Appendectomy Plating right shoulder/right clavicle Liver biopsy Reported Medications Reported Meds & Active Scripts Active Lortab (Hydrocodone-Acetaminophen) 5-325 Mg Tab 1-2 Tab PO Q6H PRN Lasix (Furosemide) 40 Mg Tab 40 Mg PO DAILY [Lactulose Liq] 30 ML Syrp 30 Ml PO DAILY PRN Hydrocodone-Acetaminophen 5-325 mg Tab 1 Tab PO Q4H PRN DO NOT USE THIS MEDICINE IF YOU WILL DRIVE A CAR OR USE A MACHINE, ONLY USE IT WHEN RESTING AT HOME. Hydrocodone-Acetaminophen 5-325 mg Tab 1 Tab PO TID PRN Propranolol (Propranolol HCl) 10 Mg Tab 10 Mg PO Q12HR Flomax (Tamsulosin HCl) 0.4 Mg Cap 0.8 Mg PO DAILY Xifaxan (Rifaximin) 550 Mg Tab 550 Mg PO BID Reported Metformin (Metformin HCl) 850 Mg Tab 1,000 Mg PO BIDPC With meals Lyrica (Pregabalin) 300 Mg Cap 300 Mg PO TID Spironolactone 100 Mg Tab 100 Mg PO DAILY Pantoprazole (Pantoprazole Sodium) 40 Mg Tab 40 Mg PO BID Ribavirin 200 Mg Cap Tums (Calcium Carbonate (Antacid)) 500 Mg Chew 500 Mg CHEW DAILY PRN Buspirone (Buspirone HCl) 10 Mg Tab 10 Mg PO TID Baclofen 20 Mg Tab 20 Mg PO TID Active Ordered Medications Current Medications Medications (Trade) Dose Ordered Sig/Jez Route Start Time Stop Time Status Last Admin Sodium Chloride 250 ml @ 15 mls/hr ONCE ONCE IV 05/31/17 05:30 05/31/17 22:09 05/31/17 06:05 (Lioresal) 20 mg TID PO 05/31/17 09:00 (Buspar) 10 mg TID PO 05/31/17 09:00 (Tums Chew) 500 mg DAILY PRN CHEW 05/31/17 05:45 (Xifaxan) 550 mg BID PO 05/31/17 09:00 (Flomax) 0.8 mg DAILY PO 05/31/17 09:00 (Lyrica) 300 mg TID PO 05/31/17 09:00 Sodium Chloride 1,000 ml @ 124 mls/hr Q8H4M IV 05/31/17 05:52 05/31/17 06:28 (NS Flush) 2 ml UNSCH PRN IV FLUSH 05/31/17 06:00 (NS Flush) 2 ml BID IV FLUSH 05/31/17 09:00 (Tylenol) 650 mg Q6H PRN PO 05/31/17 06:00 (Morphine Inj) 2 mg Q2H PRN IV PUSH 05/31/17 06:00 (Ativan Inj) 1 mg Q1H PRN IV PUSH 05/31/17 06:00 (Zofran Inj) 4 mg Q6H PRN IV PUSH 05/31/17 06:00 (Duoneb Neb) 1 ampule Q2HR NEB PRN INH 05/31/17 06:00 Miscellaneous Information 1 Q361D XX 05/31/17 06:00 (Chlorhexidine 2% Cloth) 3 pack Taper DAILY@04 TOP 06/01/17 04:00 05/28/18 03:59 (Chlorhexidine 2% Cloth) 3 pack UNSCH PRN TOP 05/31/17 06:00 (Saarhi-Colace) 1 tab BID PO 05/31/17 09:00 (Milk Of Magnesia Liq) 30 ml Q12H PRN PO 05/31/17 06:00 (Senokot) 17.2 mg Q12H PRN PO 05/31/17 06:00 (Dulcolax Supp) 10 mg DAILY PRN RECTAL 05/31/17 06:00 Ceftriaxone Sodium 1000 mg/ Sodium Chloride 100 ml @ 200 mls/hr Q24H IV 05/31/17 08:00 Octreotide Acetate 500 mcg/ Sodium Chloride 500 ml @ 50 mls/hr Q10H IV 05/31/17 05:58 05/31/17 06:30 (Mag-Ox) 800 mg UNSCH PRN PO 05/31/17 07:00 Magnesium Sulfate 4 gm/Sodium Chloride 100 ml @ 50 mls/hr UNSCH PRN IV 05/31/17 07:00 Magnesium Sulfate 2 gm/Sodium Chloride 100 ml @ 50 mls/hr UNSCH PRN IV 05/31/17 07:00 Potassium Chloride 100 ml @ 50 mls/hr Q2H PRN IV 05/31/17 07:00 Potassium Chloride 100 ml @ 50 mls/hr Q2H PRN IV 05/31/17 07:00 Potassium Chloride 100 ml @ 50 mls/hr Q2H PRN IV 05/31/17 07:00 Potassium Chloride 100 ml @ 25 mls/hr UNSCH PRN IV 05/31/17 07:00 (K-Phos) 2,000 mg Q4H PRN PO 05/31/17 07:00 (K-Phos) 2,000 mg UNSCH PRN PO/TUBE 05/31/17 07:00 Potassium Phosphate 30 mmol/ Sodium Chloride 260 ml @ 42 mls/hr UNSCH PRN IV 05/31/17 07:00 Sodium Phosphate 30 mmol/Sodium Chloride 250 ml @ 42 mls/hr UNSCH PRN IV 05/31/17 07:00 Pantoprazole Sodium 80 mg/ Sodium Chloride 100 ml @ 10 mls/hr CONTINUOUS IV 05/31/17 09:00 (Lactulose Liq) 30 ml BID PO 05/31/17 09:00 Physical Exam Vital Signs Vital Signs Date Time Temp Pulse Resp B/P (MAP) Pulse Ox O2 Delivery O2 Flow Rate FiO2 05/31/17 11:02 97.2 58 20 153/66 100 05/31/17 10:40 100 50 05/31/17 08:46 98.8 61 22 111/71 97 05/31/17 08:00 98.8 62 22 125/77 (93) 98 05/31/17 08:00 56 16 99/54 (69) 97 05/31/17 07:00 58 16 108/60 (76) 97 05/31/17 07:00 62 05/31/17 06:39 97.6 62 16 95/52 99 05/31/17 06:35 97.6 58 16 95/52 99 05/31/17 06:24 97.9 58 16 117/56 96 05/31/17 06:20 97.9 58 16 117/56 05/31/17 06:01 60 18 84/49 (61) Room Air 05/31/17 05:28 98.0 65 16 78/47 (57) 99 Room Air 05/31/17 05:27 99 Room Air 05/31/17 05:27 99 Room Air 05/31/17 05:00 73 16 84/53 (63) 100 Physical Exam GENERAL: Sedated, intubated SKIN: Warm and dry. HEAD: Normocephalic. EYES: No scleral icterus. No injection or drainage. NECK: Supple, trachea midline. No JVD or lymphadenopathy. CARDIOVASCULAR: Regular rate and rhythm without murmurs, gallops, or rubs. RESPIRATORY: Breath sounds equal bilaterally. No accessory muscle use. GASTROINTESTINAL: Abdomen soft, nondistended. EXTREMITIES: No cyanosis, or edema. Laboratory Laboratory Tests Test 05/31/17 05:06 05/31/17 05:59 White Blood Count 7.8 Red Blood Count 2.35 Hemoglobin 7.3 Bedside Hemoglobin 8.2 Hematocrit 22.9 Bedside Hematocrit 24.0 Mean Corpuscular Volume 97.7 Mean Corpuscular Hemoglobin 31.0 Mean Corpuscular Hemoglobin Concent 31.7 Red Cell Distribution Width 19.0 Platelet Count 185 Mean Platelet Volume 11.1 Neutrophils (%) (Auto) 62.9 Lymphocytes (%) (Auto) 25.7 Monocytes (%) (Auto) 7.5 Eosinophils (%) (Auto) 2.4 Basophils (%) (Auto) 1.5 Neutrophils # (Auto) 4.9 Lymphocytes # (Auto) 2.0 Monocytes # (Auto) 0.6 Eosinophils # (Auto) 0.2 Basophils # (Auto) 0.1 CBC Comment DIFF FINAL Differential Comment Bedside Sodium 138 Bedside Potassium 5.0 Bedside Chloride 102 Bedside Blood Urea Nitrogen 16 Bedside Creatinine 0.9 Bedside Glucose 401 Prothrombin Time 15.2 Prothromb Time International Ratio 1.4 Activated Partial Thromboplast Time 30.5 Magnesium Level 1.2 Total Creatine Kinase 38 Troponin I 0.02 B-Type Natriuretic Peptide 421 Result Diagram: 05/31/17 050 Imaging Last Impressions Chest X-Ray 05/31/17505 Signed Impressions: Service Date/Time: Wednesday, May 31, 2017 05:24 - CONCLUSION: Decreasing left medial lung base consolidation. Right lung remains clear. Raúl Greene MD Assessment and Plan Problem List: (1) GI bleed ICD Codes: K92.2 - Gastrointestinal hemorrhage, unspecified Status: Acute Plan: Acute GI bleeding. Critically ill. ?STEMI NO EKG on chart. Unfortunately patient not candidate for LHC or anticoagulation given active bleeding. Recommendations: Conservative management Aggressive medical management for CAD Case discussed with Planning Consultant Dr. Finch. (2) Esophageal varices ICD Codes: I85.00 - Esophageal varices without bleeding Status: Acute (3) Hepatocellular carcinoma ICD Codes: C22.0 - Liver cell carcinoma Abhishek Grady MD May 31, 2017 11:27
[2017-05-31 11:31] LABS: AUTOMATED NEUTROPHIL # 7.4 TH/MM3 (1.8-7.7); BASOPHIL # 0.1 TH/MM3 (0-0.2); BASOPHIL % 0.6 % (0.0-2.0); EOSINOPHIL # 0.1 TH/MM3 (0-0.4); HEMATOCRIT 24.9 % (39.0-51.0); HEMO FLAGS DIFF FINAL; LYMPH % 9.5 % (9.0-44.0); LYMPHOCYTE # 0.8 TH/MM3 (1.0-4.8); MEAN CELL VOLUME 91.1 FL (80.0-100.0); MEAN CORPUSCULAR HEMOGLOBIN 30.5 PG (27.0-34.0); MEAN CORPUSCULAR HGB CONC 33.5 % (32.0-36.0); MONO % 5.9 % (0.0-8.0); PLATELET COUNT 163 TH/MM3 (150-450); RED BLOOD COUNT 2.73 MIL/MM3 (4.50-5.90); WHITE BLOOD COUNT 8.9 TH/MM3 (4.0-11.0)
[2017-05-31 11:39] LABS: INTERNATIONAL NORMALIZED RATIO 1.3 RATIO; PROTHROMBIN TIME - PATIENT 14.8 SEC (9.8-11.6)
[2017-05-31] MEDS ORDERED: DEXTROSE 50% IN WATER 50 ML VIAL(D50) IV PUSH PRN (11:45)
--- NOTE | 2017-05-31 12:11 | RADRPT ---
EXAM DATE/TIME: 05/31/2017 11:39 [facility] COMPARISON: CHEST SINGLE AP, May 31, 2017, 5:24. INDICATIONS : Post intubation. MEDICAL HISTORY : Pancreatitis. Diabetes mellitus type II. Hypercholesterolemia. Hypertension. Hepatitis C. SURGICAL HISTORY : Appendectomy. ENCOUNTER: Subsequent ACUITY: 1 day PAIN SCORE: Non-responsive. LOCATION: Bilateral chest FINDINGS: A single view of the chest demonstrates endotracheal tube in good position. Left central line in supe rior vena cava. An additional tube traversing the esophagus and entering the stomach. Plate and screw fixation right clavicle. Perihilar and dependent/basilar air space disease in the lungs similar to e arlier exam. CONCLUSION: 1. Support apparatus in good position as above. Mild basilar and perihilar airspace disease. Alfonso Hernandez MD on May 31, 2017 at 12:08 Board Certified Radiologist. This report was verified electronically.
[2017-05-31 12:16] LABS: BLOOD GAS BASE EXCESS -0.7 mmol/L (-2-2); BLOOD GAS CARBOXYHEMOGLOBIN 2.6 % (0-4); BLOOD GAS HCO3 24 mmol/L (22-26); BLOOD GAS O2 HGB SATURATION 96 % (90-100); BLOOD GAS OXYGEN CONTENT 12.3 Vol % (12.0-20.0); BLOOD GAS PCO2 41 mmHg (38-42); BLOOD GAS PO2 185 mmHg (61-120); BLOOD GAS TOTAL HGB 8.8 G/DL (12.0-16.0); CRITICAL VALUE NO; OXYGEN DEVICE VENTILATOR; TEMP CORR TO 98.6
[2017-05-31 12:17] LABS: DRAW SITE ART LINE; FIO2 50 %; STAT YES; ULNAR PULSE PRESENT; VENT SETTINGS PRVC/AC
--- NOTE | 2017-05-31 12:20 | RADRPT ---
EXAM DATE/TIME: 05/31/2017 11:46 [facility] COMPARISON: No previous studies available for comparison. INDICATIONS : Chuckie tube placement. MEDICAL HISTORY : Pancreatitis. Diabetes mellitus type II. Hypercholesterolemia. Hypertension. Hepatitis C. SURGICAL HISTORY : Appendectomy. ENCOUNTER: Initial ACUITY: 1 day PAIN SCORE: Non-responsive. LOCATION: Bilateral Abdomen. FINDINGS: Chuckie tube tip is projected over the distal stomach. Mild ileus present. No free air identified. CONCLUSION: 1. Chuckie tube tip is projected over the antropyloric region with a balloon across the GE junction . Mild ileus. Alfonso Hernandez MD on May 31, 2017 at 12:16 Board Certified Radiologist. This report was verified electronically.
[2017-05-31 13:28] LABS: CALCIUM-PROTEIN CORRECTED 7.8 MG/DL (8.5-10.1); TOTAL BILIRUBIN ADULT 3.1 MG/DL (0.2-1.0)
[2017-05-31 13:30] LABS: BACTERIA, URINE RARE /hpf; BLOOD, URINE NEG (NEG); COMMENT (UR) CULT NOT INDICATED; CULTURE IF INDICATED CULT NOT INDICATED; GLUCOSE,URINE 1000 mg/dL (NEG); HYALINE CAST, URINE 13 /lpf (RARE); KETONE, URINE NEG (NEG); MUCUS URINE FEW /lpf (OCC); NITRITE,URINE NEG (NEG); PH, URINE 5.5 (5.0-8.5); POTASSIUM 6.9 MEQ/L (3.5-5.1); URINE COLOR YELLOW (YELLW/STRAW)
[2017-05-31] MEDS: INSULIN NovoLIN REGULAR SUPPLEMENTAL SCALE SQ SCH ×2 (13:35→18:00)
--- NOTE | 2017-05-31 14:44 | PD.CONS ---
Consult Service Palliative Care . Consult Requested By Dr. Eric Stinson . Primary Care Physician Long Huerta DO . Reason for Consultation a. To assist with evaluation and management of symptoms including: dyspnea; ascites; pain; encephalopathy b. To assist medical decision maker(s) with: better understanding of current medical conditions; weighing benefits/burdens of medical treatment options; making medical treatment decisions. . HPI History of Present Illness This is the 8th [facility] acute care hospitalization this calendar year for this 56 y/o male with known severe liver cirrhosis with portal gastropathy complicated by recurrent bleeding esophageal varices which is the reason for this hospitalization. Patient quit EtOH about 5 years ago but also has Hep C. Other medical problems include DM with neuropathy and degenerative joint disease. The patient's GI history is well described in GI consultation note of KIMANI Rivera of 05/31/17-- repeated here... This is a 56 year old with a history of liver cirrhosis, esophageal varices, portal gastropathy, hepatitis C- Genotype 3a (recently on Epclusa/ribavirin as outpatient), who was recently hospitalized for upper GI Bleeding from 05/04/17-. He was evaluated with EGD (05/05/17)----> There was a nipple sign on a large distal varix and that seems to be where the bleeding was from. 4 bands applied on 3 varices. Bleeding seemed controlled. There was a great deal of blood in the upper stomach. The stomach and duodenum could not be examined further, cannot rule out gastric varices. He was treated with octreotide and protonix drips and IR was consulted for evaluation for TIPS procedure. However , he was deemed not be a candidate at this facility secondary to history portal vein occlusion in the liver hilum with reconstitution of parenchymal portal vein branches on CT scan 09/17/16. He was then transferred to [facility] for possible TIPS procedure. While at [facility], he was found to likely have hepatocellular carcinoma on CT. There were questionable multifocal arterial lesions likely consistent with this diagnosis. MR liver was to be performed but no information sent. TIPS is contraindicated with portal vein thrombosis/cancer therefore patient was transferred back to this facility. Here, he was evaluated by oncology with AFP level which was 3.1 on . MRI abdomen with and without contrast (05/19/17)---> Cirrhotic liver with completely thrombosed portal vein including the main portal vein and right and left intrahepatic branches. I do not see an enhancing mass or definite enhancement within the thrombus to indicated tumor thrombus. Therefore, this may be bland thrombus. No suspicious lesion is identified within the liver. there are 2 nodular areas of arterial hyperenhancement that are not seen on the subsequent series suggesting that these may represent atypical nodules. Attention should be paid to these at followup imaging. Findings indicative of portal hypertension, including splenomegaly, ascites, and varices. Dr. Tavarez reviewed the MRI and there was no suspicious findings for hepatocellular carcinoma and they signed off. During this hospitalization, he underwent multiple US guided paracentesis and the cytology was negative for malignant cells. He was discharged home on 05/21 with Lasix 40mg po daily, pantoprazole 40mg po BID, Propranolol 10mg q12h, Xifaxan 550mg po BID, Spironolactone 100mg po daily, and Lactulose. He has an outpatient fu appointment with our office on 06/10/17. He reports that he was doing well up until yesterday. He went to bed around 8pm and then woke up around 9pm or 10pm with a small amount of red blood coming from his mouth. Initially, it was a small amount and he was unsure if he bit his tongue. However, he then started having nausea/vomiting consisting of bright red blood and large blood clots and came to the ER for further evaluation. When he arrived to the ER, he also started having hematochezia, passing dark red bloody stool. He complains of mild diffuse abdominal cramping and nausea. He does not drink ETOH- quit 6 years ago and does not take NSAIDs. He was on Epclusa for his HCV Genotype 3a and states that he completed 5-6 weeks, but has not been on this since his last hospitalization. Patient went to EGD today and had EKG changes. Cardiology was consulted. Cardiology does not feel patient is a candidate for left heart catheterization. I have spoken with the GI team. Patient has a large hepatic vein thrombosis and is not eligible for any anti-coagulation due to his GI bleeding. He is not felt to be candidate for TIPS now and is not felt to be a likely candidate in the future. He is not felt to be a candidate for liver transplant now and is not likely to become a candidate in the future. Patient continues to bleed and he is receiving multiple transfusions of blood, platelets, FFP. A River tube is in place. Prognosis is very poor and GI has recommended hospice enrollment. . Function/Cognitive Trajectory Between his recent hospitalizations, patient was able to live independently. He gets around on a motorized wheelchair and would use public transportation. He was able to take care of his own ADLs this way. That being said, this is his 8th acute care hospitalization this calendar year so he has spent a great deal of time under hospital care. . Review of Systems ROS Limitations: Clinical Condition (Patient is sedated, orotracheally intubated, and mechanically ventilated. He is unable to provide his own ROS. ROS taken from available family members and medical reocrd as well as possible. ) Constitutional: COMPLAINS OF: Fatigue, Weight gain (with ascites), Pain, Generalized weakness, DENIES: Fever Endocrine: DENIES: Polydipsia, Polyuria, Polyphagia Eyes: COMPLAINS OF: Vision loss (NOrmally wears glasses) Ears, nose, mouth, throat: DENIES: Hearing loss, Hoarseness, Epistaxis Respiratory: DENIES: Cough, Snoring, Wheezing, Hemoptysis, Shortness of breath Cardiovascular: COMPLAINS OF: Dyspnea on Exertion, Lower Extremity Edema, DENIES: Chest pain, Palpitations Gastrointestinal: COMPLAINS OF: Abdominal pain, Black stools, Bloody stools, Diarrhea, Nausea, Vomiting, Dyspepsia or heartburn, DENIES: Constipation Genitourinary: DENIES: Urinary frequency, Hematuria, Dysuria Musculoskeletal: COMPLAINS OF: Back pain, DENIES: Joint pain, Neck pain Integumentary: DENIES: Pruritus, Tumors Hematologic/Lymphatics: COMPLAINS OF: History of transfusions, DENIES: Bruising Neurologic: COMPLAINS OF: Abnormal gait, Paresthesias (Lower extremity neuropathy), DENIES: Headache, Seizures, Poor Balance Psychiatric: COMPLAINS OF: Confusion, Hallucinations, Agitation, Delusions Past Family Social History Coded Allergies: bacitracin (Unverified Allergy, Mild, RASH, 05/31/17) gramicidin D (Unverified Allergy, Mild, 05/31/17) neomycin (Unverified Allergy, Mild, 05/31/17) polymyxin B (Unverified Allergy, Mild, RASH, 05/31/17) Past Medical History Grade 4 esophageal varices Recurrent ascites Recurrent esophageal variceal bleeding Portal hypertension Hepatic cirrhosis Hepatitis C, Genotype 3a Diabetes mellitus Diabetic neuropathy Portal vein thrombosis DDD Sacral decubitus ulcer recent HCAP Klebsiella ESBL positive Pancytopenia . Past Surgical History EGD//colonoscopy Paracentesis Appendectomy Plating right shoulder/right clavicle Liver biopsy . Reported Medications Pre-hospitalization meds included the following: Lasix (Furosemide) 40 Mg Tab 40 Mg PO DAILY [Lactulose Liq] 30 ML Syrp 30 Ml PO DAILY PRN Hydrocodone-Acetaminophen 5-325 mg Tab 1 Tab PO Q4H PRN Propranolol (Propranolol HCl) 10 Mg Tab 10 Mg PO Q12HR Flomax (Tamsulosin HCl) 0.4 Mg Cap 0.8 Mg PO DAILY Xifaxan (Rifaximin) 550 Mg Tab 550 Mg PO BID Metformin (Metformin HCl) 850 Mg Tab 1,000 Mg PO BIDPC Lyrica (Pregabalin) 300 Mg Cap 300 Mg PO TID Spironolactone 100 Mg Tab 100 Mg PO DAILY Pantoprazole (Pantoprazole Sodium) 40 Mg Tab 40 Mg PO BID Ribavirin 200 Mg Cap Tums (Calcium Carbonate (Antacid)) 500 Mg Chew 500 Mg CHEW DAILY PRN Buspirone (Buspirone HCl) 10 Mg Tab 10 Mg PO TID Baclofen 20 Mg Tab 20 Mg PO TID . Current Medications Medications (Trade) Dose Ordered Sig/Jez Route Start Time Stop Time Status Last Admin Sodium Chloride 250 ml @ 15 mls/hr ONCE ONCE IV 05/31/17 05:30 05/31/17 22:09 05/31/17 06:05 (Lioresal) 20 mg TID PO 05/31/17 09:00 (Buspar) 10 mg TID PO 05/31/17 09:00 (Tums Chew) 500 mg DAILY PRN CHEW 05/31/17 05:45 (Xifaxan) 550 mg BID PO 05/31/17 09:00 (Flomax) 0.8 mg DAILY PO 05/31/17 09:00 (Lyrica) 300 mg TID PO 05/31/17 09:00 Sodium Chloride 1,000 ml @ 124 mls/hr Q8H4M IV 05/31/17 05:52 05/31/17 12:00 (NS Flush) 2 ml UNSCH PRN IV FLUSH 05/31/17 06:00 (NS Flush) 2 ml BID IV FLUSH 05/31/17 09:00 (Tylenol) 650 mg Q6H PRN PO 05/31/17 06:00 (Morphine Inj) 2 mg Q2H PRN IV PUSH 05/31/17 06:00 (Ativan Inj) 1 mg Q1H PRN IV PUSH 05/31/17 06:00 (Zofran Inj) 4 mg Q6H PRN IV PUSH 05/31/17 06:00 (Duoneb Neb) 1 ampule Q2HR NEB PRN INH 05/31/17 06:00 Miscellaneous Information 1 Q361D XX 05/31/17 06:00 (Chlorhexidine 2% Cloth) 3 pack Taper DAILY@04 TOP 06/01/17 04:00 05/28/18 03:59 (Chlorhexidine 2% Cloth) 3 pack UNSCH PRN TOP 05/31/17 06:00 (Sarahi-Colace) 1 tab BID PO 05/31/17 09:00 (Milk Of Magnesia Liq) 30 ml Q12H PRN PO 05/31/17 06:00 (Senokot) 17.2 mg Q12H PRN PO 05/31/17 06:00 (Dulcolax Supp) 10 mg DAILY PRN RECTAL 05/31/17 06:00 Ceftriaxone Sodium 1000 mg/ Sodium Chloride 100 ml @ 200 mls/hr Q24H IV 05/31/17 08:00 Octreotide Acetate 500 mcg/ Sodium Chloride 500 ml @ 50 mls/hr Q10H IV 05/31/17 05:58 05/31/17 06:30 (Mag-Ox) 800 mg UNSCH PRN PO 05/31/17 07:00 Magnesium Sulfate 4 gm/Sodium Chloride 100 ml @ 50 mls/hr UNSCH PRN IV 05/31/17 07:00 Magnesium Sulfate 2 gm/Sodium Chloride 100 ml @ 50 mls/hr UNSCH PRN IV 05/31/17 07:00 Potassium Chloride 100 ml @ 50 mls/hr Q2H PRN IV 05/31/17 07:00 Potassium Chloride 100 ml @ 50 mls/hr Q2H PRN IV 05/31/17 07:00 Potassium Chloride 100 ml @ 50 mls/hr Q2H PRN IV 05/31/17 07:00 Potassium Chloride 100 ml @ 25 mls/hr UNSCH PRN IV 05/31/17 07:00 (K-Phos) 2,000 mg Q4H PRN PO 05/31/17 07:00 (K-Phos) 2,000 mg UNSCH PRN PO/TUBE 05/31/17 07:00 Potassium Phosphate 30 mmol/ Sodium Chloride 260 ml @ 42 mls/hr UNSCH PRN IV 05/31/17 07:00 Sodium Phosphate 30 mmol/Sodium Chloride 250 ml @ 42 mls/hr UNSCH PRN IV 05/31/17 07:00 Pantoprazole Sodium 80 mg/ Sodium Chloride 100 ml @ 10 mls/hr CONTINUOUS IV 05/31/17 09:00 (Lactulose Liq) 30 ml BID PO 05/31/17 09:00 Sodium Chloride 250 ml @ 15 mls/hr ONCE ONCE IV 05/31/17 11:30 06/01/17 04:09 05/31/17 12:00 Propofol 100 ml @ 2.25 mls/hr TITRATE IV 05/31/17 11:45 05/31/17 10:50 (Peridex 0.12% Liq) 15 ml BID@08,20 MT 05/31/17 20:00 (D50w (Vial) Inj) 25 ml UNSCH PRN IV PUSH 05/31/17 11:45 (NovoLIN R SUPPLEMENTAL SCALE) 1 Q6HR SQ 05/31/17 12:00 05/31/17 13:35 Miscellaneous Information ALL NURSING DEPARTME... UNSCH PRN .XX 05/31/17 10:44 06/01/17 10:43 . Family History Grandmother with heart disease. Patient had two brothers who of complications of alcohol and drug abuse. . Substance Use Tobacco: does not smoke. Alcohol: Quit drinking 5 or 6 years ago. Prescription med abuse: None. Illicits: None. . Psychosocial History Born and raised in [facility]. MOved to [place] in the Did not complete high school. No . 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 Parents are aware of one marriage, but there may have been more. One son -- Azael Arzola -- from that marriage -- probably around 32 years old. Lives out of state. Patient currently lives alone about 6 miles from his parents. His relationship with his parents has been on and off but he has designated them as his health care surrogate. . . Spiritual/Cultural Factors Per parents, taoist and spirituality have been very important to the patient. He reads the bible frequently. He is "born again." Orthodox manasa. . Living Will: Never completed Durable Power of Manager [employer]: Never completed Date completed: Health care surrogate designation completed on 05/17/17. . Health Care Surrogate(s): Ramya and/or Vance Arzola (parents) C: [phone] . Documented care wishes: No written documentation of health care goals/preferences. . Today's verbally stated goals: Patient is intubated, sedated and is unable to provide his own goals/wishes. . . Family/friends goals: Parents understand the grim prognosis. They feel his is spiritually at peace and "knows where he will be going after ." They feel he would not want to prolong the dying process at this time. They want to find out if the patient's son would want to visit. If not, they agree to withdrawal of life support. They agree to NO CODE and no further blood products at this time. . Ethical and Legal Issues No living will. Patient has designated his parents as his health care surrogate. . Physical Exam Vital Signs Date Time Temp Pulse Resp B/P (MAP) Pulse Ox O2 Delivery O2 Flow Rate FiO2 05/31/17 13:41 97.9 57 19 162/66 100 05/31/17 12:52 98.9 56 23 131/52 100 05/31/17 12:46 100 40 05/31/17 12:15 100 50 05/31/17 12:00 99.4 56 16 168/71 (103) 100 05/31/17 11:38 96.5 59 12 158/60 100 05/31/17 11:15 96.3 60 12 167/70 100 05/31/17 11:02 97.2 58 20 153/66 100 05/31/17 10:41 97.2 60 12 117/64 (81) 100 Mechanical Ventilator 50 05/31/17 10:40 100 50 05/31/17 08:46 98.8 61 22 111/71 97 05/31/17 08:00 98.8 62 22 125/77 (93) 98 05/31/17 08:00 56 16 99/54 (69) 97 05/31/17 07:00 58 16 108/60 (76) 97 05/31/17 07:00 62 05/31/17 06:39 97.6 62 16 95/52 99 05/31/17 06:35 97.6 58 16 95/52 99 05/31/17 06:24 97.9 58 16 117/56 96 05/31/17 06:20 97.9 58 16 117/56 05/31/17 06:01 60 18 84/49 (61) Room Air 05/31/17 05:28 98.0 65 16 78/47 (57) 99 Room Air 05/31/17 05:27 99 Room Air 05/31/17 05:27 99 Room Air 05/31/17 05:00 73 16 84/53 (63) 100 . 05/31/17 06/01/17 19:00 07:00 Intake Total 2730 ml Balance 2730 ml IV Total 700 ml Packed Cells 1600 ml Blood Product IV Normal Saline Flush 430 ml . Exam CONSTITUTIONAL/GENERAL: This is an adequately nourished patient, sedated, intubated, mechanically ventilated in an SICU bed. No apparent distress. TUBES/LINES/DRAINS: SCDs; lindquist catheter; peripheral IV; right radial line; left subclavian central line; River tube SKIN: No jaundice, rashes, or lesions. No wounds seen anteriorly. Skin temperature appropriate. Not diaphoretic. HEAD: Atraumatic. Normocephalic. EYES: Pupils equal and round and minimally reactive. Unable to evaluate EOMs. No scleral icterus. No injection or drainage. Fundi not examined. ENT: Unable to evaluate hearing. Nose without bleeding or purulent drainage. Throat without visible erythema, exudates, masses, or lesions though difficult to evaluate secondary to intubations. NECK: Trachea midline. Supple, nontender. No palpable thyroid enlargement or nodularity. CARDIOVASCULAR: Regular rate and rhythm without murmurs, gallops, or rubs. No JVD. Peripheral pulses symmetric. RESPIRATORY/CHEST: Symmetric, unlabored respirations. Clear to auscultation. Breath sounds equal bilaterally. No wheezes, rales, or rhonchi. GASTROINTESTINAL: ABdomen distended, moderately firm. Unable to palpate organomegaly/masses secondary to distension. No guarding. Bowel sounds present. GENITOURINARY: Without palpable bladder distension. Lindquist catheter in place. MUSCULOSKELETAL: Extremities without clubbing, cyanosis, or edema. No joint tenderness or effusion noted. No calf tenderness. No mottling or clubbing. LYMPHATICS: No palpable cervical or supraclavicular adenopathy. NEUROLOGICAL: Sedated -- does not arouse to voice/commands. Does not withdraw to noxious stimulus. PSYCHIATRIC: Unable to assess due to level of responsiveness. . Diagnostic Tests Laboratory Laboratory Tests Test 05/31/17 05:06 05/31/17 05:59 05/31/17 11:10 05/31/17 12:10 White Blood Count 7.8 TH/MM3 (4.0-11.0) 8.9 TH/MM3 (4.0-11.0) Red Blood Count 2.35 MIL/MM3 (4.50-5.90) 2.73 MIL/MM3 (4.50-5.90) Hemoglobin 7.3 GM/DL (13.0-17.0) 8.3 GM/DL (13.0-17.0) Bedside Hemoglobin 8.2 G/DL (12.0-17.0) Hematocrit 22.9 % (39.0-51.0) 24.9 % (39.0-51.0) Bedside Hematocrit 24.0 % (38.0-51.0) Mean Corpuscular Volume 97.7 FL (80.0-100.0) 91.1 FL (80.0-100.0) Mean Corpuscular Hemoglobin 31.0 PG (27.0-34.0) 30.5 PG (27.0-34.0) Mean Corpuscular Hemoglobin Concent 31.7 % (32.0-36.0) 33.5 % (32.0-36.0) Red Cell Distribution Width 19.0 % (11.6-17.2) 18.0 % (11.6-17.2) Platelet Count 185 TH/MM3 (150-450) 163 TH/MM3 (150-450) Mean Platelet Volume 11.1 FL (7.0-11.0) 10.4 FL (7.0-11.0) Neutrophils (%) (Auto) 62.9 % (16.0-70.0) 83.0 % (16.0-70.0) Lymphocytes (%) (Auto) 25.7 % (9.0-44.0) 9.5 % (9.0-44.0) Monocytes (%) (Auto) 7.5 % (0.0-8.0) 5.9 % (0.0-8.0) Eosinophils (%) (Auto) 2.4 % (0.0-4.0) 1.0 % (0.0-4.0) Basophils (%) (Auto) 1.5 % (0.0-2.0) 0.6 % (0.0-2.0) Neutrophils # (Auto) 4.9 TH/MM3 (1.8-7.7) 7.4 TH/MM3 (1.8-7.7) Lymphocytes # (Auto) 2.0 TH/MM3 (1.0-4.8) 0.8 TH/MM3 (1.0-4.8) Monocytes # (Auto) 0.6 TH/MM3 (0-0.9) 0.5 TH/MM3 (0-0.9) Eosinophils # (Auto) 0.2 TH/MM3 (0-0.4) 0.1 TH/MM3 (0-0.4) Basophils # (Auto) 0.1 TH/MM3 (0-0.2) 0.1 TH/MM3 (0-0.2) CBC Comment DIFF FINAL DIFF FINAL Differential Comment Bedside Sodium 138 MMOL/L (138-146) Bedside Potassium 5.0 MMOL/L (3.5-4.9) Bedside Chloride 102 MMOL/L (98-109) Bedside Blood Urea Nitrogen 16 MG/DL (8-26) Bedside Creatinine 0.9 MG/DL (0.8-1.3) Bedside Glucose 401 MG/DL (60-95) Prothrombin Time 15.2 SEC (9.8-11.6) 14.8 SEC (9.8-11.6) Prothromb Time International Ratio 1.4 RATIO 1.3 RATIO Activated Partial Thromboplast Time 30.5 SEC (24.3-30.1) Magnesium Level 1.2 MG/DL (1.5-2.5) Total Creatine Kinase 38 U/L (39-308) 49 U/L (39-308) Troponin I 0.02 NG/ML (0.02-0.05) 0.02 NG/ML (0.02-0.05) B-Type Natriuretic Peptide 421 PG/ML (0-100) Ammonia 227 MCMOL/L (11-32) Blood Gas Puncture Site ART LINE Blood Gas Patient Temperature 98.6 Blood Gas HCO3 24 mmol/L (22-26) Blood Gas Base Excess -0.7 mmol/L (-2-2) Blood Gas Oxygen Saturation 96 % (90-100) Arterial Blood pH 7.38 (7.380-7.420) Arterial Blood Partial Pressure CO2 41 mmHg (38-42) Arterial Blood Partial Pressure O2 185 mmHg (61-120) Arterial Blood Oxygen Content 12.3 Vol % (12.0-20.0) Arterial Blood Carboxyhemoglobin 2.6 % (0-4) Arterial Blood Methemoglobin 1.0 % (0-2) Blood Gas Hemoglobin 8.8 G/DL (12.0-16.0) Oxygen Delivery Device VENTILATOR Blood Gas Ventilator Setting PRVC/AC Blood Gas Inspired Oxygen 50 % Test 05/31/17 12:35 Urine Color YELLOW (YELLW/STRAW) Urine Turbidity CLEAR (CLEAR) Urine pH 5.5 (5.0-8.5) Urine Specific Bowman 1.020 (1.002-1.035) Urine Protein TRACE mg/dL (NEG-TRACE) Urine Glucose (UA) 1000 mg/dL (NEG) Urine Ketones NEG mg/dL (NEG) Urine Occult Blood NEG (NEG) Urine Nitrite NEG (NEG) Urine Bilirubin NEG (NEG) Urine Urobilinogen LESS THAN 2.0 MG/DL (LESS Urine Leukocyte Esterase NEG (NEG) Urine RBC 1 /hpf (0-3) Urine WBC 1 /hpf (0-5) Urine Bacteria RARE /hpf (NONE) Urine Hyaline Casts 13 /lpf (RARE) Urine Mucus FEW /lpf (OCC) Microscopic Urinalysis Comment CULT NOT INDICATED Blood Urea Nitrogen 22 MG/DL (7-18) Creatinine 0.95 MG/DL (0.60-1.30) Random Glucose 372 MG/DL (74-106) Total Protein 6.1 GM/DL (6.4-8.2) Albumin 2.6 GM/DL (3.4-5.0) Calcium Level 7.3 MG/DL (8.5-10.1) Alkaline Phosphatase 86 U/L (45-117) Aspartate Amino Transf (AST/SGOT) 87 U/L (15-37) Alanine Aminotransferase (ALT/SGPT) 50 U/L (12-78) Total Bilirubin 3.1 MG/DL (0.2-1.0) Sodium Level 136 MEQ/L (136-145) Potassium Level 6.9 MEQ/L (3.5-5.1) Chloride Level 104 MEQ/L (98-107) Carbon Dioxide Level 25.0 MEQ/L (21.0-32.0) Anion Gap 7 MEQ/L (5-15) Estimat Glomerular Filtration Rate 82 ML/MIN (>89) Protein Corrected Calcium 7.8 MG/DL (8.5-10.1) . Result Diagram: 05/31/17 1110 05/31/17 1235 Imaging Last Impressions Chest X-Ray 05/31/17 0506 Signed Impressions: Service Date/Time: Wednesday, May 31, 2017 05:24 - CONCLUSION: Decreasing left medial lung base consolidation. Right lung remains clear. Raúl Greene MD Liver Ultrasound 05/31/17 0000 Signed Impressions: Service Date/Time: Wednesday, May 31, 2017 08:18 - CONCLUSION: 1. Echogenic liver compatible with fatty infiltration or hepatocellular disease. 2. Splenomegaly and ascites 3. No evidence of portal vein thrombosis Regulo Kinney MD ADDENDUM: COMPARISON: MRI ABDOMEN W & W/O CONTRAST, May 19, 2017, 11:16. When comparison this examination there are findings of cavernous transformation of the portal vein with an intact normal vein not identified. Extensive tumor is also identified within the jeanine hepatis. Regulo Kinney MD Abdomen X-Ray 05/31/17 0000 Signed Impressions: Service Date/Time: Wednesday, May 31, 2017 11:46 - CONCLUSION: 1. Chuckie tube tip is projected over the antropyloric region with a balloon across the GE junction. Mild ileus. Alfonso Hernandez MD . Procedures * EGD with River tube placement 05/31/17 * Left subclavian line placement * Intubation/mechanical ventilation 05/31/17 . Patient/Family Conference Present at Family Conference: Vance and Ramya Arzola (parents). . Family Conference Time (mins): 50 Family Conference Location: Consult Room Issues Discussed: * Palliative care role, purpose, approach * Additional medical, psychosocial, and spiritual history * Patients general health, functional status, and cognitive changes in the months leading up to the current hospitalization * Family understanding of the current medical problems * Family understanding of prognosis * Patients goals of care as best understood from conversations and/or values * Current medical treatment options and benefits/burdens of those options * Likely scenarios comparing ongoing aggressive care with a transition to comfort measures only * The logistics of withdrawal of life support * Questions answered to the best of my ability * Palliative care contact information provided . Assessment and Plan Disease Oriented Problem List: (1) GI bleed (2) Esophageal varices Comment: With recurrent bleeding. . (3) Portal hypertensive gastropathy Comment: Not a candidate for TIPS or transplant. . (4) Hepatitis C (5) Liver cirrhosis (6) Ascites (7) Anemia requiring transfusions (8) Portal vein thrombosis (9) Diabetes mellitus with neuropathy (10) STEMI (ST elevation myocardial infarction) Comment: Reportedly had positive EKG changes during EGD of 05/31/17 . Symptom Scale: (1) Pain 0-10 Scale: Unable to quantify Comment: Patient is normally on prn hydrocodone at home. Most of his pain is reported to be neuroapthic pain from his diabetes and manifests by pain shooting down both lower extremities Current sources of pain could be due to multiple other factors including prolonged bedbound status; River tube; orotracheal intubation; SCDs ; lindquist catheter; etc. . (2) Dyspnea 0-10 Scale: Unable to quantify Comment: Currently managed with mechanical ventilation . (3) Encephalopathy 0-10 Scale: Unable to quantify Comment: Has history of hepatic encephalopathy. Antiicpate this would be exacerbated by GI bleeding and would be noted if sedation were decreased. No reason to lower sedation at this time. . Pertinent Non-Medical Issues Psychosocial: Patient is relatively isolated. Parents live locally. Has a son who lives out of state. Spiritual: Very important part of his life. Reads the bible regularly. "Born again" per parents. Parents would like a generation manager to visit and say prayers for him Legal: No living will. Health care surrogate designation is scanned into EMR> Ethical issues impacting care: Patient is incapacitated and will probably not regain capacity. . Important Contacts Olivia Arzola, parents/[facility]; C: [phone] . Prognosis Prognosis is bleak. 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 He has had recurrent esophageal bleeding and is now acutely bleeding. He had an apparent cardiac event in EGD today. He is not a candidate for cardiac catheterization. He is not a candidate for TIPS or for transplantation. He is requiring recurrent transfusions of blood products. His K+ is 6.9. Patient is unlikely to survive this hospitalization. Should he be fortunate enough to survive, we would anticipate another recurrence of bleeding in the near future. GI has recommended a transition to "comfort measures" and hospice. . Code Status: No Code Plan == Code Status: Parents (the health care surrogates) have agreed to NO CODE given patient's prognosis. == Decision makers: The patient is currently sedated and intubated. He is unable to make his own health care decisions. It is unlikely that he will regain capacity at this point. The patient had designated both of his parents as health care surrogates. == Goals of medical treatment: Parents want the patient to remain comfortable. They want to try and contact the patient's son to see if he plans to visit. They would like us to keep the patient on vent support until they contact him and know his plans. However -- NO PRESSORS; NO BLOOD PRODUCTS; NO CODE; NO ELECTROLYTE CORRECTIONS at this point. Will essentially keep comfort meds, octreotide, protonix. Will keep River tube in for time being to minimize chances of hematemesis which would be upsetting for family to witness. == Symptoms: * Pain: Most of his pain is reported to be neuropathic pain from his diabetes and manifests by pain shooting down both lower extremities Current pain could be due to multiple other factors including prolonged bedbound status; River tube; orotracheal intubation; SCDs ; lindquist catheter; etc. Patient has iv morphine order in place. Also on propofol at this time. Will continue both. No further recommendations at this time. * Nausea/vomiting: This is secondary to his GI bleeding. This will be resolved only when bleeding is controlled. River tube is currently in place. Will leave tube there to minimize bleeding and prevent hematemesis which would be upsetting to visiting family. Protonix and octreotide to continue * Ascites: Neither diuretics nor paracentesis make sense at this time. * Encephalopathy: Do not recommend withdrawing sedation at this time. Patient will not recover and if he become wakeful, he is most likely to become further encephalopathic and combative as he has done in the past. * Dyspnea: Managed by mechanical ventilation. Current opiate order could help if necessary. No further recommendation at this time. If no further loved ones plan on visiting, family will be ready for compassionate withdrawal of vent support. == If parents determine that no other loved ones are planning on visiting, we will go forward with full withdrawal of life support. == Pallliative care will continue to follow to assist with symptom management and to further clarify goals of medical treatment as the clinical course evolves. . Time Spent Total Floor Time (mins): 90 (Total floor time included chart review, patient exam, case discussion with Dr. Stinson, collaboration with primary nurse, and above referenced converstaion with the health care surrogates (parents). ) Face to Face Time (mins): 10 >50% Counseling/Coord of Care: Yes Thank you for the opportunity to participate in the care of Mr. Arzola. . Attestation To help prompt me to consider important information that might be impacting today's encounter and assessment, information from prior notes written by myself or my colleagues may have been "brought forward" into today's note. My signature on this note, however, is an attestation that I personally performed the exam, history, and/or decision-making noted today, and, unless otherwise indicated, the interactions with patient, family, and staff as well as the review of records all occurred today. I also attest that the listed assessment and stated plan reflect my best clinical judgment today based on the combination of historical information, prior notes, and today's exam/ interactions. When time spent is documented, it refers only to time spent today by the signer, or if indicated, combined time spent today by collaborating physician/nurse practitioner. . Mega Cunningham MD May 31, 2017 14:44
[2017-05-31 16:56] LABS: HEMATOCRIT 27.4 % (39.0-51.0)
[2017-05-31 17:04] LABS: REVIEW FLAG FINAL
[2017-05-31] MEDS ORDERED: CHLORHEXIDINE 0.12% (ORAL KIT) 15 ML CUP MT SCH (20:00)
[2017-05-31] MEDS ORDERED: fentaNYL 2,500 MCG/NS 250 ML IV PRN (20:30)
[2017-05-31] MEDS: MORPHINE SULFATE 4 MG/ML INJ IV PUSH PRN (21:13)
[2017-05-31 23:08] LABS: HEMATOCRIT 24.2 % (39.0-51.0)
[2017-05-31 23:15] LABS: REVIEW FLAG FINAL
[2017-06-01] VITALS (9 sets, daily range): BP systolic 124–161; BP diastolic 52–66; PULSE 67–87; RESP 15–25; TEMP 98.3–101.5; O2SAT 85–100
[2017-06-01] MEDS: INSULIN NovoLIN REGULAR SUPPLEMENTAL SCALE SQ SCH ×3 (00:29→12:00)
[2017-06-01] MEDS: MORPHINE SULFATE 4 MG/ML INJ IV PUSH PRN (01:00)
[2017-06-01] MEDS: PROPOFOL 1000 MG/100 ML INJ 100 ML IV SCH ×3 (01:41→11:23)
[2017-06-01] MEDS: OCTREOTIDE INJ 500 MCG in SODIUM CHLORID 0.9% 500 ML INJ 499.5 ML IV SCH (02:27)
[2017-06-01 03:55] LABS: AUTOMATED NEUTROPHIL # 6.4 TH/MM3 (1.8-7.7); BASOPHIL % 0.5 % (0.0-2.0); EOSINOPHIL # 0.1 TH/MM3 (0-0.4); EOSINOPHIL % 1.5 % (0.0-4.0); LYMPH % 8.7 % (9.0-44.0); LYMPHOCYTE # 0.7 TH/MM3 (1.0-4.8); MEAN CELL VOLUME 86.1 FL (80.0-100.0); MEAN CORPUSCULAR HEMOGLOBIN 29.7 PG (27.0-34.0); MEAN CORPUSCULAR HGB CONC 34.5 % (32.0-36.0); MONO % 6.7 % (0.0-8.0); NEUT % 82.6 % (16.0-70.0); PLATELET COUNT 79 TH/MM3 (150-450); RED BLOOD COUNT 2.67 MIL/MM3 (4.50-5.90); RED CELL DISTRIBUTION WIDTH 19.6 % (11.6-17.2); WHITE BLOOD COUNT 7.8 TH/MM3 (4.0-11.0)
[2017-06-01] MEDS ORDERED: CHLORHEXIDINE GLUCONATE 2 % 1 PACK (2 CLOTHS) TOP SCH (04:00)
[2017-06-01 04:14] LABS: BICARBONATE 28.3 MEQ/L (21.0-32.0); MAGNESIUM 1.5 MG/DL (1.5-2.5); POTASSIUM 4.3 MEQ/L (3.5-5.1)
[2017-06-01 04:30] LABS: CALCIUM-PROTEIN CORRECTED 7.6 MG/DL (8.5-10.1); TOTAL BILIRUBIN ADULT 1.4 MG/DL (0.2-1.0)
[2017-06-01] MEDS: SODIUM CHLOR 0.9% 1000 ML INJ 1,000 ML IV SCH (05:08)
[2017-06-01 05:39] LABS: HEMO FLAGS AUTO DIFF
[2017-06-01 05:48] LABS: BANDS 7 % (0-6); EOSINOPHILS 1 % (0-4); NEUTROPHIL # MANUAL DIFF 7.3 TH/MM3 (1.8-7.7); PLATELET ESTIMATE SMEAR LOW (NORMAL); POLYS (SEG NEUTROPHILS) 86 % (16-70); SCAN/DIFF FINAL DIFF MANUAL; WBC DIFF SAMPLE 100
[2017-06-01 05:49] LABS: PLATELET MORPHOLOGY NORMAL (NORMAL)
[2017-06-01] MEDS: TAMSULOSIN HCL 0.4 MG CAP PO SCH (09:00)
[2017-06-01] MEDS: LACTULOSE SYRUP 20 GM/30 ML CUP PO SCH (09:00)
[2017-06-01] MEDS: busPIRone HCL 10 MG TAB PO SCH (09:00)
[2017-06-01] MEDS: SODIUM CHLORIDE 0.9% FLUSH 10 ML FLUSH IV FLUSH SCH (09:00)
[2017-06-01] MEDS: PREGABALIN 100 MG CAP PO SCH (09:00)
[2017-06-01] MEDS: RIFAXIMIN 550 MG TAB PO SCH (09:00)
[2017-06-01] MEDS: DOCUSATE SODIUM 50 MG/SENNA 8.6 MG TAB PO SCH (09:00)
[2017-06-01] MEDS: BACLOFEN 20 MG TAB PO SCH (09:00)
[2017-06-01] MEDS: cefTRIAXone INJ 1,000 MG in SODIUM CHLORIDE 0.9% INJ 100 ML IV SCH (09:11)
--- NOTE | 2017-06-01 09:27 | HHI.GIFU ---
Subjective Remarks Sedated on vent. No active bleeding at this time. River tube inflated. Nurse reports that he is now a NO CODE and that his family may possibly withdrawal from life support later this afternoon. (Yumiko Vale) Objective Vitals I&O Vital Signs Date Time Temp Pulse Resp B/P (MAP) Pulse Ox O2 Delivery O2 Flow Rate FiO2 06/01/17 04:00 98.3 67 22 161/66 (97) 100 06/01/17 04:00 40 06/01/17 01:10 100 40 06/01/17 00:00 98.3 67 22 161/66 (97) 100 06/01/17 00:00 40 05/31/17 23:00 64 05/31/17 21:07 100 40 05/31/17 20:50 40 05/31/17 20:00 97.8 63 18 165/67 (99) 100 Automatic Cuff 05/31/17 16:00 98.2 62 21 159/69 (99) 100 05/31/17 15:53 100 40 05/31/17 15:39 98.2 05/31/17 15:39 55 19 120/61 100 05/31/17 15:00 62 05/31/17 13:41 97.9 57 19 162/66 100 05/31/17 12:52 98.9 56 23 131/52 100 05/31/17 12:46 100 40 05/31/17 12:15 100 50 05/31/17 12:00 99.4 56 16 168/71 (103) 100 05/31/17 11:38 96.5 59 12 158/60 100 05/31/17 11:30 96.5 57 18 100 Mechanical Ventilator 50 161/67 (98) 05/31/17 11:15 60 16 100 Mechanical Ventilator 50 167/70 (102) 05/31/17 11:15 96.3 60 12 167/70 100 05/31/17 11:02 97.2 58 20 153/66 100 05/31/17 11:00 59 20 100 Mechanical Ventilator 50 157/66 (96) 05/31/17 10:45 60 19 137/66 (89) 100 Mechanical Ventilator 50 146/64 (91) 05/31/17 10:41 97.2 60 12 117/64 (81) 100 Mechanical Ventilator 50 05/31/17 10:40 100 50 I/O 05/31/17 05/31/17 05/31/17 06/01/17 06/01/17 06/01/17 07:00 15:00 23:00 07:00 15:00 23:00 Intake Total 1035 ml 3794 ml 1915 ml 2443 ml Output Total 250 ml 700 ml 1200 ml Balance 1035 ml 3544 ml 1215 ml 1243 ml Intake Oral 0 ml IV Total 1035 ml 764 ml 1627 ml 2443 ml Packed Cells 2600 ml Platelets 288 ml Blood Product IV Normal Saline Flush 430 ml Output Urine Total 250 ml 450 ml 1200 ml Emesis 250 ml # Bowel Movements 2 1 Laboratory Laboratory Tests Test 05/31/17 11:10 05/31/17 12:10 05/31/17 12:35 05/31/17 14:53 White Blood Count 8.9 Red Blood Count 2.73 Hemoglobin 8.3 9.4 Hematocrit 24.9 27.4 Mean Corpuscular Volume 91.1 Mean Corpuscular Hemoglobin 30.5 Mean Corpuscular Hemoglobin Concent 33.5 Red Cell Distribution Width 18.0 Platelet Count 163 Mean Platelet Volume 10.4 Neutrophils (%) (Auto) 83.0 Lymphocytes (%) (Auto) 9.5 Monocytes (%) (Auto) 5.9 Eosinophils (%) (Auto) 1.0 Basophils (%) (Auto) 0.6 Neutrophils # (Auto) 7.4 Lymphocytes # (Auto) 0.8 Monocytes # (Auto) 0.5 Eosinophils # (Auto) 0.1 Basophils # (Auto) 0.1 CBC Comment DIFF FINAL Differential Comment Prothrombin Time 14.8 Prothromb Time International Ratio 1.3 Ammonia 227 Total Creatine Kinase 49 Troponin I 0.02 Blood Gas Puncture Site ART LINE Blood Gas Patient Temperature 98.6 Blood Gas HCO3 24 Blood Gas Base Excess -0.7 Blood Gas Oxygen Saturation 96 Arterial Blood pH 7.38 Arterial Blood Partial Pressure CO2 41 Arterial Blood Partial Pressure O2 185 Arterial Blood Oxygen Content 12.3 Arterial Blood Carboxyhemoglobin 2.6 Arterial Blood Methemoglobin 1.0 Blood Gas Hemoglobin 8.8 Oxygen Delivery Device VENTILATOR Blood Gas Ventilator Setting PRVC/AC Blood Gas Inspired Oxygen 50 Urine Color YELLOW Urine Turbidity CLEAR Urine pH 5.5 Urine Specific [place] 1.020 Urine Protein TRACE Urine Glucose (UA) 1000 Urine Ketones NEG Urine Occult Blood NEG Urine Nitrite NEG Urine Bilirubin NEG Urine Urobilinogen LESS THAN 2.0 Urine Leukocyte Esterase NEG Urine RBC 1 Urine WBC 1 Urine Bacteria RARE Urine Hyaline Casts 13 Urine Mucus FEW Microscopic Urinalysis Comment CULT NOT INDICATED Blood Urea Nitrogen 22 Creatinine 0.95 Random Glucose 372 Total Protein 6.1 Albumin 2.6 Calcium Level 7.3 Alkaline Phosphatase 86 Aspartate Amino Transf (AST/SGOT) 87 Alanine Aminotransferase (ALT/SGPT) 50 Total Bilirubin 3.1 Sodium Level 136 Potassium Level 6.9 Chloride Level 104 Carbon Dioxide Level 25.0 Anion Gap 7 Estimat Glomerular Filtration Rate 82 Protein Corrected Calcium 7.8 Test 05/31/17 22:00 06/01/17 03:41 Hemoglobin 8.4 7.9 Hematocrit 24.2 23.0 White Blood Count 7.8 Red Blood Count 2.67 Mean Corpuscular Volume 86.1 Mean Corpuscular Hemoglobin 29.7 Mean Corpuscular Hemoglobin Concent 34.5 Red Cell Distribution Width 19.6 Platelet Count 79 Mean Platelet Volume 9.4 Neutrophils (%) (Auto) 82.6 Lymphocytes (%) (Auto) 8.7 Monocytes (%) (Auto) 6.7 Eosinophils (%) (Auto) 1.5 Basophils (%) (Auto) 0.5 Neutrophils # (Auto) 6.4 Lymphocytes # (Auto) 0.7 Monocytes # (Auto) 0.5 Eosinophils # (Auto) 0.1 Basophils # (Auto) 0.0 CBC Comment AUTO DIFF Differential Total Cells Counted 100 Neutrophils % (Manual) 86 Band Neutrophils % 7 Lymphocytes % 5 Monocytes % 1 Eosinophils % 1 Neutrophils # (Manual) 7.3 Differential Comment FINAL DIFF MANUAL Platelet Estimate LOW Platelet Morphology Comment NORMAL Basophilic Stippling FAINT Blood Urea Nitrogen 26 Creatinine 0.68 Random Glucose 143 Total Protein 5.8 Albumin 2.6 Calcium Level 6.9 Phosphorus Level 2.9 Magnesium Level 1.5 Alkaline Phosphatase 95 Aspartate Amino Transf (AST/SGOT) 849 Alanine Aminotransferase (ALT/SGPT) 257 Total Bilirubin 1.4 Sodium Level 143 Potassium Level 4.3 Chloride Level 110 Carbon Dioxide Level 28.3 Anion Gap 5 Estimat Glomerular Filtration Rate 120 Protein Corrected Calcium 7.6 Imaging Last Impressions Chest X-Ray 05/31/17 [id number] Signed Impressions: Service Date/Time: Wednesday, May 31, 2017 05:24 - CONCLUSION: Decreasing left medial lung base consolidation. Right lung remains clear. Raúl Greene MD Liver Ultrasound 05/31/17 0000 Signed Impressions: Service Date/Time: Wednesday, May 31, 2017 08:18 - CONCLUSION: 1. Echogenic liver compatible with fatty infiltration or hepatocellular disease. 2. Splenomegaly and ascites 3. No evidence of portal vein thrombosis Regulo Kinney MD ADDENDUM: COMPARISON: MRI ABDOMEN W & W/O CONTRAST, May 19, 2017, 11:16. When comparison this examination there are findings of cavernous transformation of the portal vein with an intact normal vein not identified. Extensive tumor is also identified within the jeanine hepatis. Regulo Kinney MD Abdomen X-Ray 05/31/17 0000 Signed Impressions: Service Date/Time: Wednesday, May 31, 2017 11:46 - CONCLUSION: 1. Chuckie tube tip is projected over the antropyloric region with a balloon across the GE junction. Mild ileus. Alfonso Hernandez MD Physical Exam HEENT: Normocephalic; atraumatic; no jaundice CARDIAC: Resp. even/mildly labored. OETT to vent ABDOMEN: Soft, nondistended, hepatosplenomegaly; bowel sounds are present in all four quadrants. River with balloons inflated. No active bleeding at this time. ascites EXTREMITIES: No clubbing, cyanosis, or edema. SKIN: Mild jaundice. 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 Recent hospitalization for the same 05/04/17-05/21/17. EGD (05/05/17)----> There was a nipple sign on a large distal varix and that seems to be where the bleeding was from. 4 bands applied on 3 varices. Bleeding seemed controlled. There was a great deal of blood in the upper stomach. The stomach and duodenum could not be examined further, cannot rule out gastric varices. IR was consulted for evaluation for TIPS procedure. However, he was deemed not be a candidate at this facility secondary to history portal vein occlusion in the liver hilum with reconstitution of parenchymal portal vein branches on CT scan 09/17/16. S/P evaluation at [facility] for possible TIPS procedure, but deemed not a candidate secondary to portal vein thrombosis and possible HCC on CT. MRI at this facility did not appreciate any suspicious findings of HCC. Presented to ER (05/31) vomiting moderate amount red blood with large blood clots. S/P EGD with band ligation (05/31/17)---> 1. Esophageal varices -s/p banding -5 ulcers in esophagus from previous banding after band application, patient started bleeding actively from one of the varices, spurting blood-3 clips applied, epi injected 1:10, 000 - 10 cc-still active bleeding- Chuckie tube inserted-I was not able to place through the nose , possible deviated septum, due to urgency and continues bleed-place it through the mouth , inflated as per protocol patient was evaluted by IR-not a candidate for TIPS he was already evaluated at tertiary center for TIPS-felt not a candidate, abnormal ekg changes- cardiology consulted spoke with mom over the phone - updated 2. Retroflexed views revealed old blood and food in stomach. Unclamped gastric/esophageal. Gastric tube portion placed to LIWS. No active bleeding at this time. Protonix Gtt. Octreotide Gtt. S/P Multiple transfusions. HH 7.9/ 23.0. - Esophageal varices. S/P Octreotide, Protonix gtt. S/P control of bleeding, band ligation as above. - Anemia, acute blood loss. S/P 5 units PRBC, 2 units plasma, 1 unit FFP, 1 unit Plt. HH 7.9/23.0. 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 No ETOH x 6 years. Recently on Epclusa /ribavirin X ~5-6 weeks per patient or HCV Genotype 3as outpatient. This was not resumed after his last discharge. He was recently evaluated at [facility], but deemed not a candidate for TIPS secondary to suspected HCC. He was evaluated by oncology at this facility and had AFP 3.1 and an MRI () that did not appreciate any suspicious findings for HCC and therefore they signed off. Worsening LFTs today. T. Bili 1.4, AST 849, ALT 257, ALk PHosph 95 - Recent Portal vein thrombosis. MRI (05/19/17) noted completely thrombosed portal vein including the main portal vein and right and left intrahepatic branches. - Hepatitis C, Genotype 3a. Pt reports that he had 5-6 weeks of On Epclusa as outpatient, but did not resume after his last hospitalization and was going to discuss this at his next fu appointment on 06/10. - Hepatic encephalopathy. Now sedated on vent. - Ascites. He required multiple paracentesis during his last hospitalization, but this seems to be better controlled at this time. He does have a small amount, but no significant distention. Lasix, Spironolactone at home. - Respiratory failure. Vent per CCM - Hx HTN (now hypotensive), Hyperlipidemia, BPH, DM, Neuropathy per attending. PLAN: - NPO - S/P unclmping of gastric/esophageal balloons - NG to LIWS - NPO - Octreotide gtt - Protonix gtt - Ceftriaxone - Monitor labs - Transfuse as necessary - Not a candidate for TIPS procedure per IR/[facility] - Pt with poor prognosis, recommend Hospice care. Pt is now DNR and family is coming later today for possible withdrawal from life support per nursing - Pt seen and examined by Dr. Minor and myself and this note is written on her behalf (Yumiko Vale) Physician Comments seen, examined agree with above call us as needed gi will sign off (Jody Minor MD) Yumiko Vale Jun 01, 2017 09:27 Jody Minor MD Jun 01, 2017 15:48
--- NOTE | 2017-06-01 10:59 | HHI.HCPN ---
Reason for visit a. To assist with evaluation and management of symptoms including: dyspnea; ascites; pain; encephalopathy b. To assist medical decision maker(s) with: better understanding of current medical conditions; weighing benefits/burdens of medical treatment options; making medical treatment decisions. . Subjective/Interval History GI notes indicate that patient continued to bleed after attempted banding of esophageal varices yesterday in spite of additional use of epinephrine. They could not insert River tube through the nose. Nursing reports that patient passed bloody stool last night. However, River tube is now on suction and there is no bloody aspirate this morning. Patient remains sedated with propofol. Morphine sulfate was given at 0100 for asynchony with vent. Has appeared comfortable since that time per nursing staff. Patient's mother phoned me last night. She had been able to contact the patient's son. He will not be coming to see the patient. He let them know that he was agreable to withdrawal of life support. Mother and father (the health care surrogates) want to go forward with withdrawal of life support today. They can't come by to sign the appropriate "Exhibit" until late morning or early afternoon. They choose not to be present at time of withdrawal. VS stable at this time. 02 sats good with FI02 of 40%. Hg 7.9 this AM. Potassium has normalized and is now 4.3. LFTs now elevated with AST 849 and ALT 257. Albumin 2.6. No new imaging today. . Family/friend interactions Await parents arrival to sign appropriate forms. . Advance Directives Living Will: Never completed Durable Power of Funeral Planning Counselor: Never completed Advance Directive Specifics Date completed: Health care surrogate designation completed on 05/17/17. . Health Care Surrogate(s): Ramya and/or Vance Arzola (parents) C: [phone] . Documented care wishes: No written documentation of health care goals/preferences. . Significant change in goals: Health care surrogates (parents) agree to go forward with compassionate withdrawal of life support today. . Objective Vital Signs Date Time Temp Pulse Resp B/P (MAP) Pulse Ox O2 Delivery O2 Flow Rate FiO2 06/01/17 10:00 69 06/01/17 09:44 100 40 06/01/17 08:00 40 06/01/17 08:00 69 06/01/17 08:00 99.2 69 25 146/56 (86) 100 06/01/17 04:00 98.3 67 22 161/66 (97) 100 06/01/17 04:00 40 06/01/17 01:10 100 40 06/01/17 00:00 98.3 67 22 161/66 (97) 100 06/01/17 00:00 40 05/31/17 23:00 64 05/31/17 21:07 100 40 05/31/17 20:50 40 05/31/17 20:00 97.8 63 18 165/67 (99) 100 Automatic Cuff 05/31/17 16:00 98.2 62 21 159/69 (99) 100 05/31/17 15:53 100 40 05/31/17 15:39 98.2 05/31/17 15:39 55 19 120/61 100 05/31/17 15:00 62 05/31/17 13:41 97.9 57 19 162/66 100 05/31/17 12:52 98.9 56 23 131/52 100 05/31/17 12:46 100 40 05/31/17 12:15 100 50 05/31/17 12:00 99.4 56 16 168/71 (103) 100 05/31/17 11:38 96.5 59 12 158/60 100 05/31/17 11:30 96.5 57 18 100 Mechanical Ventilator 50 161/67 (98) 05/31/17 11:15 60 16 100 Mechanical Ventilator 50 167/70 (102) 05/31/17 11:15 96.3 60 12 167/70 100 05/31/17 11:02 97.2 58 20 153/66 100 05/31/17 11:00 59 20 100 Mechanical Ventilator 50 157/66 (96) 05/31/17 10:45 60 19 137/66 (89) 100 Mechanical Ventilator 50 146/64 (91) Intake & Output 06/01/17 06/01/17 07:00 19:00 Intake Total 2543 ml Output Total 1200 ml Balance 1343 ml IV Total 2543 ml Output Urine Total 1200 ml # Bowel Movements 1 . Physical Exam CONSTITUTIONAL/GENERAL: This is an adequately nourished patient, sedated, intubated, mechanically ventilated in an SICU bed. No apparent distress. TUBES/LINES/DRAINS: SCDs; lindquist catheter; peripheral IV; right radial line; left subclavian central line; River tube via nose SKIN: No jaundice, rashes, or lesions. No wounds seen anteriorly. Skin temperature appropriate. Not diaphoretic. HEAD: Atraumatic. Normocephalic. EYES: Pupils equal and round and minimally reactive. Unable to evaluate EOMs. No scleral icterus. No injection or drainage. Fundi not examined. ENT: Unable to evaluate hearing. Nose without bleeding or purulent drainage. Throat without visible erythema, exudates, masses, or lesions though difficult to evaluate secondary to intubations. NECK: Trachea midline. CARDIOVASCULAR: Regular rate and rhythm without murmurs, gallops, or rubs. No JVD. Peripheral pulses symmetric. RESPIRATORY/CHEST: Symmetric, unlabored respirations. Clear to auscultation. Breath sounds equal bilaterally. No wheezes, rales, or rhonchi. GASTROINTESTINAL: ABdomen distended, moderately firm. Unable to palpate organomegaly/masses secondary to distension. No guarding. Bowel sounds present. GENITOURINARY: Without palpable bladder distension. Lindquist catheter in place. MUSCULOSKELETAL: Extremities without clubbing, cyanosis, or edema. No mottling . LYMPHATICS: Not examined. NEUROLOGICAL: Sedated -- does not arouse to voice/commands. Does not withdraw to noxious stimulus. PSYCHIATRIC: Unable to assess due to level of responsiveness. . Diagnostic Tests Laboratory Laboratory Tests Test 05/31/17 05:06 05/31/17 05:59 05/31/17 11:10 05/31/17 12:10 White Blood Count 7.8 TH/MM3 (4.0-11.0) 8.9 TH/MM3 (4.0-11.0) Red Blood Count 2.35 MIL/MM3 (4.50-5.90) 2.73 MIL/MM3 (4.50-5.90) Hemoglobin 7.3 GM/DL (13.0-17.0) 8.3 GM/DL (13.0-17.0) Bedside Hemoglobin 8.2 G/DL (12.0-17.0) Hematocrit 22.9 % (39.0-51.0) 24.9 % (39.0-51.0) Bedside Hematocrit 24.0 % (38.0-51.0) Mean Corpuscular Volume 97.7 FL (80.0-100.0) 91.1 FL (80.0-100.0) Mean Corpuscular Hemoglobin 31.0 PG (27.0-34.0) 30.5 PG (27.0-34.0) Mean Corpuscular Hemoglobin Concent 31.7 % (32.0-36.0) 33.5 % (32.0-36.0) Red Cell Distribution Width 19.0 % (11.6-17.2) 18.0 % (11.6-17.2) Platelet Count 185 TH/MM3 (150-450) 163 TH/MM3 (150-450) Mean Platelet Volume 11.1 FL (7.0-11.0) 10.4 FL (7.0-11.0) Neutrophils (%) (Auto) 62.9 % (16.0-70.0) 83.0 % (16.0-70.0) Lymphocytes (%) (Auto) 25.7 % (9.0-44.0) 9.5 % (9.0-44.0) Monocytes (%) (Auto) 7.5 % (0.0-8.0) 5.9 % (0.0-8.0) Eosinophils (%) (Auto) 2.4 % (0.0-4.0) 1.0 % (0.0-4.0) Basophils (%) (Auto) 1.5 % (0.0-2.0) 0.6 % (0.0-2.0) Neutrophils # (Auto) 4.9 TH/MM3 (1.8-7.7) 7.4 TH/MM3 (1.8-7.7) Lymphocytes # (Auto) 2.0 TH/MM3 (1.0-4.8) 0.8 TH/MM3 (1.0-4.8) Monocytes # (Auto) 0.6 TH/MM3 (0-0.9) 0.5 TH/MM3 (0-0.9) Eosinophils # (Auto) 0.2 TH/MM3 (0-0.4) 0.1 TH/MM3 (0-0.4) Basophils # (Auto) 0.1 TH/MM3 (0-0.2) 0.1 TH/MM3 (0-0.2) CBC Comment DIFF FINAL DIFF FINAL Differential Comment Bedside Sodium 138 MMOL/L (138-146) Bedside Potassium 5.0 MMOL/L (3.5-4.9) Bedside Chloride 102 MMOL/L (98-109) Bedside Blood Urea Nitrogen 16 MG/DL (8-26) Bedside Creatinine 0.9 MG/DL (0.8-1.3) Bedside Glucose 401 MG/DL (60-95) Prothrombin Time 15.2 SEC (9.8-11.6) 14.8 SEC (9.8-11.6) Prothromb Time International Ratio 1.4 RATIO 1.3 RATIO Activated Partial Thromboplast Time 30.5 SEC (24.3-30.1) Magnesium Level 1.2 MG/DL (1.5-2.5) Total Creatine Kinase 38 U/L (39-308) 49 U/L (39-308) Troponin I 0.02 NG/ML (0.02-0.05) 0.02 NG/ML (0.02-0.05) B-Type Natriuretic Peptide 421 PG/ML (0-100) Ammonia 227 MCMOL/L (11-32) Blood Gas Puncture Site ART LINE Blood Gas Patient Temperature 98.6 Blood Gas HCO3 24 mmol/L (22-26) Blood Gas Base Excess -0.7 mmol/L (-2-2) Blood Gas Oxygen Saturation 96 % (90-100) Arterial Blood pH 7.38 (7.380-7.420) Arterial Blood Partial Pressure CO2 41 mmHg (38-42) Arterial Blood Partial Pressure O2 185 mmHg (61-120) Arterial Blood Oxygen Content 12.3 Vol % (12.0-20.0) Arterial Blood Carboxyhemoglobin 2.6 % (0-4) Arterial Blood Methemoglobin 1.0 % (0-2) Blood Gas Hemoglobin 8.8 G/DL (12.0-16.0) Oxygen Delivery Device VENTILATOR Blood Gas Ventilator Setting [facility]/ Blood Gas Inspired Oxygen 50 % Test 05/31/17 12:35 05/31/17 14:53 05/31/17 22:00 06/01/17 03:41 Urine Color YELLOW (YELLW/STRAW) Urine Turbidity CLEAR (CLEAR) Urine pH 5.5 (5.0-8.5) Urine Specific [place] 1.020 (1.002-1.035) Urine Protein TRACE mg/dL (NEG-TRACE) Urine Glucose (UA) 1000 mg/dL (NEG) Urine Ketones NEG mg/dL (NEG) Urine Occult Blood NEG (NEG) Urine Nitrite NEG (NEG) Urine Bilirubin NEG (NEG) Urine Urobilinogen LESS THAN 2.0 MG/DL (LESS Urine Leukocyte Esterase NEG (NEG) Urine RBC 1 /hpf (0-3) Urine WBC 1 /hpf (0-5) Urine Bacteria RARE /hpf (NONE) Urine Hyaline Casts 13 /lpf (RARE) Urine Mucus FEW /lpf (OCC) Microscopic Urinalysis Comment CULT NOT INDICATED Blood Urea Nitrogen 22 MG/DL (7-18) 26 MG/DL (7-18) Creatinine 0.95 MG/DL (0.60-1.30) 0.68 MG/DL (0.60-1.30) Random Glucose 372 MG/DL (74-106) 143 MG/DL (74-106) Total Protein 6.1 GM/DL (6.4-8.2) 5.8 GM/DL (6.4-8.2) Albumin 2.6 GM/DL (3.4-5.0) 2.6 GM/DL (3.4-5.0) Calcium Level 7.3 MG/DL (8.5-10.1) 6.9 MG/DL (8.5-10.1) Alkaline Phosphatase 86 U/L (45-117) 95 U/L (45-117) Aspartate Amino Transf (AST/SGOT) 87 U/L (15-37) 849 U/L (15-37) Alanine Aminotransferase (ALT/SGPT) 50 U/L (12-78) 257 U/L (12-78) Total Bilirubin 3.1 MG/DL (0.2-1.0) 1.4 MG/DL (0.2-1.0) Sodium Level 136 MEQ/L (136-145) 143 MEQ/L (136-145) Potassium Level 6.9 MEQ/L (3.5-5.1) 4.3 MEQ/L (3.5-5.1) Chloride Level 104 MEQ/L (98-107) 110 MEQ/L (98-107) Carbon Dioxide Level 25.0 MEQ/L (21.0-32.0) 28.3 MEQ/L (21.0-32.0) Anion Gap 7 MEQ/L (5-15) 5 MEQ/L (5-15) Estimat Glomerular Filtration Rate 82 ML/MIN (>89) 120 ML/MIN (>89) Protein Corrected Calcium 7.8 MG/DL (8.5-10.1) 7.6 MG/DL (8.5-10.1) Hemoglobin 9.4 GM/DL (13.0-17.0) 8.4 GM/DL (13.0-17.0) 7.9 GM/DL (13.0-17.0) Hematocrit 27.4 % (39.0-51.0) 24.2 % (39.0-51.0) 23.0 % (39.0-51.0) White Blood Count 7.8 TH/MM3 (4.0-11.0) Red Blood Count 2.67 MIL/MM3 (4.50-5.90) Mean Corpuscular Volume 86.1 FL (80.0-100.0) Mean Corpuscular Hemoglobin 29.7 PG (27.0-34.0) Mean Corpuscular Hemoglobin Concent 34.5 % (32.0-36.0) Red Cell Distribution Width 19.6 % (11.6-17.2) Platelet Count 79 TH/MM3 (150-450) Mean Platelet Volume 9.4 FL (7.0-11.0) Neutrophils (%) (Auto) 82.6 % (16.0-70.0) Lymphocytes (%) (Auto) 8.7 % (9.0-44.0) Monocytes (%) (Auto) 6.7 % (0.0-8.0) Eosinophils (%) (Auto) 1.5 % (0.0-4.0) Basophils (%) (Auto) 0.5 % (0.0-2.0) Neutrophils # (Auto) 6.4 TH/MM3 (1.8-7.7) Lymphocytes # (Auto) 0.7 TH/MM3 (1.0-4.8) Monocytes # (Auto) 0.5 TH/MM3 (0-0.9) Eosinophils # (Auto) 0.1 TH/MM3 (0-0.4) Basophils # (Auto) 0.0 TH/MM3 (0-0.2) CBC Comment AUTO DIFF Differential Total Cells Counted 100 Neutrophils % (Manual) 86 % (16-70) Band Neutrophils % 7 % (0-6) Lymphocytes % 5 % (9-44) Monocytes % 1 % (0-8) Eosinophils % 1 % (0-4) Neutrophils # (Manual) 7.3 TH/MM3 (1.8-7.7) Differential Comment FINAL DIFF MANUAL Platelet Estimate LOW (NORMAL) Platelet Morphology Comment NORMAL (NORMAL) Basophilic Stippling FAINT (NORMAL) Phosphorus Level 2.9 MG/DL (2.5-4.9) Magnesium Level 1.5 MG/DL (1.5-2.5) . Result Diagram: 06/01/17 0341 06/01/17 0341 Imaging Last Impressions Chest X-Ray 05/31/17 0506 Signed Impressions: Service Date/Time: Wednesday, May 31, 2017 05:24 - CONCLUSION: Decreasing left medial lung base consolidation. Right lung remains clear. Raúl Greene MD Liver Ultrasound 05/31/17 0000 Signed Impressions: Service Date/Time: Wednesday, May 31, 2017 08:18 - CONCLUSION: 1. Echogenic liver compatible with fatty infiltration or hepatocellular disease. 2. Splenomegaly and ascites 3. No evidence of portal vein thrombosis Regulo Kinney MD ADDENDUM: COMPARISON: MRI ABDOMEN W & W/O CONTRAST, May 19, 2017, 11:16. When comparison this examination there are findings of cavernous transformation of the portal vein with an intact normal vein not identified. Extensive tumor is also identified within the jeanine hepatis. Regulo Kinney MD Abdomen X-Ray 05/31/17 0000 Signed Impressions: Service Date/Time: Wednesday, May 31, 2017 11:46 - CONCLUSION: 1. Chuckie tube tip is projected over the antropyloric region with a balloon across the GE junction. Mild ileus. Alfonso Hernandez MD . Procedures * EGD with River tube placement 05/31/17 * Left subclavian line placement * Intubation/mechanical ventilation 05/31/17 * Right radial arterial line placement. . Assessment and Plan Disease Oriented Problem List: (1) GI bleed (2) Esophageal varices Comment: With recurrent bleeding. . (3) Portal hypertensive gastropathy Comment: Not a candidate for TIPS or transplant. . (4) Hepatitis C (5) Liver cirrhosis (6) Ascites (7) Anemia requiring transfusions (8) Portal vein thrombosis (9) Diabetes mellitus with neuropathy (10) STEMI (ST elevation myocardial infarction) Comment: Reportedly had positive EKG changes during EGD of 05/31/17 . Symptom Scale: (1) Pain 0-10 Scale: Unable to quantify Comment: Patient is normally on prn hydrocodone at home. Most of his pain is reported to be neuroapthic pain from his diabetes and manifests by pain shooting down both lower extremities Current sources of pain could be due to multiple other factors including prolonged bedbound status; River tube; orotracheal intubation; SCDs ; lindquist catheter; etc. . (2) Dyspnea 0-10 Scale: Unable to quantify Comment: Currently managed with mechanical ventilation . (3) Encephalopathy 0-10 Scale: Unable to quantify Comment: Has history of hepatic encephalopathy. Antiicpate this would be exacerbated by GI bleeding and would be noted if sedation were decreased. No reason to lower sedation at this time. . Pertinent Non-Medical Issues Psychosocial: Patient is relatively isolated. Parents live locally. Has a son who lives out of state. Spiritual: Very important part of his life. Reads the bible regularly. "Born again" per parents. Parents would like a therapeutic radiologist to visit and say prayers for him Legal: No living will. Health care surrogate designation is scanned into EMR. Ethical issues impacting care: Patient is incapacitated and will probably not regain capacity. . Important Contacts Olivia Arzola, parents/[facility]; C: [phone] . Prognosis Prognosis is bleak. 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 He has had recurrent esophageal bleeding and is now acutely bleeding. He had an apparent cardiac event in EGD on 05/31/17 He is not a candidate for cardiac catheterization. He is not a candidate for TIPS or for transplantation. He is requiring recurrent transfusions of blood products. Patient is unlikely to survive this hospitalization. Should he be fortunate enough to survive, we would anticipate another recurrence of bleeding in the near future. GI has recommended a transition to "comfort measures" and hospice. Family has decided patients goals/wishes would best be honored by withdrawing life support, foregoing further aggressive care, and transitioning to "comfort measures only." . Code Status: No Code Plan == Code Status: Parents (the health care surrogates) have agreed to NO CODE given patient's prognosis. == Decision makers: The patient is currently sedated and intubated. He is unable to make his own health care decisions. It is unlikely that he will regain capacity at this point. The patient had designated both of his parents as health care surrogates. == Goals of medical treatment: Parents have indicated they want to go forward with compassionate withdrawal of life support later today. They will be by to sign appropriate documents. They don't plan on remaining for the actual withdrawal. == Symptoms: * Pain: Most of his pain is reported to be neuropathic pain from his diabetes and manifests by pain shooting down both lower extremities Current pain could be due to multiple other factors including prolonged bedbound status; River tube; orotracheal intubation; SCDs ; lindquist catheter; etc. Patient has iv morphine order in place. Also on propofol at this time. There is an order for a fentanyl drip if needed. No further recommendations at this time. * Nausea/vomiting: This is secondary to his GI bleeding. This will be resolved only when bleeding is controlled. River tube is currently in place. Will leave tube there to minimize bleeding and prevent hematemesis which would be upsetting to visiting family. Protonix and octreotide to continue * Ascites: Neither diuretics nor paracentesis make sense at this time. * Encephalopathy: Do not recommend withdrawing propofol until 30-60 minutes prior to withdrawal of vent. Patient will not recover and if he become wakeful , at best he is likely to become further encephalopathic and combative as he has done in the past. * Dyspnea: Managed by mechanical ventilation. Current opiate order could help if necessary. No further recommendation at this time. If no further loved ones plan on visiting, family will be ready for compassionate withdrawal of vent support. == Nurse Head was requested. == Palliative care will continue to follow to assist with symptom management and to further clarify goals of medical treatment as the clinical course evolves. . Attestation To help prompt me to consider important information that might be impacting today's encounter and assessment, information from prior notes written by myself or my colleagues may have been "brought forward" into today's note. My signature on this note, however, is an attestation that I personally performed the exam, history, and/or decision-making noted today, and, unless otherwise indicated, the interactions with patient, family, and staff as well as the review of records all occurred today. I also attest that the listed assessment and stated plan reflect my best clinical judgment today based on the combination of historical information, prior notes, and today's exam/ interactions. When time spent is documented, it refers only to time spent today by the signer, or if indicated, combined time spent today by collaborating physician/nurse practitioner. . Mega Cunningham MD Jun 01, 2017 10:59
[2017-06-01] MEDS ORDERED: LORazepam 2 MG/ML VIAL IV ONE ×2 (12:45→15:45)
[2017-06-01] MEDS ORDERED: HYOSCYAMINE 0.5 MG/ML AMP IV ONE (12:45)
[2017-06-01] MEDS ORDERED: MORPHINE SULFATE 8 MG/ML INJ IV PUSH ONE (12:45)
[2017-06-01] MEDS ORDERED: HYOSCYAMINE 0.5 MG/ML AMP IV PRN (15:45)
[2017-06-01] MEDS ORDERED: MORPHINE SULFATE 4 MG/ML INJ IV ONE (15:45)
[2017-06-01] MEDS ORDERED: ACETAMINOPHEN 650 MG SUPP RECTAL PRN (15:45)
--- NOTE | 2017-06-01 19:26 | HHI.CCPN ---
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 He was recently admitted the hospital in April with again recurrent life-threatening GI bleeds. At that time he was sent to [facility] in [place] for evaluation of possible TIPS procedure, however he was found to have significant portal vein thrombus with likely associated hepatocellular carcinoma. He was turned down as a candidate for transportation and tips. He was returned back to [place] where he was discharged after a lengthy discussion with palliative care. At that time he wanted ongoing aggressive goals. He represents with one to 2 day history of hemoptysis it is progressively worse. He endorses vomiting up cupfuls of bright red blood. He has known grade 4 esophageal varices. He came in to the ER with hemoglobin around 7 and was emergently given 4 units of packed red blood cells. He also came in hypotensive. On my evaluation, the patient does appear to be in distress, quite pale, and fatigue. His hypotension is resolved on my evaluation. He was actively vomiting blood. He denies any other symptoms including chest pain, shortness of breath, fever, chills. Only endorses hemoptysis. I did talk to him at length about the fact that without the ability to anticoagulate his portal vein thrombus or tips or transplant candidate, we had no real medical solution for his recurrent life- threatening GI bleeds. At that point I told unlikely one of these GI bleeds is going to be fatal, and he expressed understanding of this, but requested to talk to his parents before making any decisions about hospice. He was taken emergently to endoscopy after my evaluation where it was found that he had active ongoing massive hemorrhage from esophageal varices. Attempts were made at banding, but he remained hypotensive in hemorrhagic shock. River drain was placed. He was taken to PACU where anesthesia placed large bore central venous access. I reevaluated the patient and the PACU and continued his ongoing resuscitative efforts. Discussions were ongoing between GI and interventional radiology, where the patient was felt not to be any candidate for any sort of endovascular intervention. He was taken to the surgical ICU, where we continued large-volume product administration. He developed hyperkalemia is resolved this, and oliguric acute kidney injury. His family arrived at bedside and we had a long discussion about what the patient would want, and the parents who were named previously his medical decision-maker's elected to make the patient DNR and pursue comfort measures and to stop blood transfusions and ongoing aggressive measures, since we had no other ability to stop the underlying hemorrhage. Subjective: 06/01: family requesting withdraw of care. will move forward with this. palliative care on board. agree with decision. Objective Vital Signs Date Time Temp Pulse Resp B/P (MAP) Pulse Ox O2 Delivery O2 Flow Rate FiO2 06/01/17 15:12 Room Air 06/01/17 11:06 100 40 06/01/17 10:00 69 06/01/17 08:00 99.2 25 146/56 (86) Intake and Output 06/01/17 06/01/17 06/01/17 07:59 15:59 23:59 Intake Total 2443 ml 100 ml Output Total 1200 ml 1000 ml Balance 1243 ml 100 ml -1000 ml Result Diagram: 06/01/17 0341 06/01/17 0341 Imaging Last Impressions Chest X-Ray 05/31/17 0506 Signed Impressions: Service Date/Time: Wednesday, May 31, 2017 05:24 - CONCLUSION: Decreasing left medial lung base consolidation. Right lung remains clear. Raúl Greene MD Liver Ultrasound 05/31/17 0000 Signed Impressions: Service Date/Time: Wednesday, May 31, 2017 08:18 - CONCLUSION: 1. Echogenic liver compatible with fatty infiltration or hepatocellular disease. 2. Splenomegaly and ascites 3. No evidence of portal vein thrombosis Regulo Kinney MD ADDENDUM: COMPARISON: MRI ABDOMEN W & W/O CONTRAST, May 19, 2017, 11:16. When comparison this examination there are findings of cavernous transformation of the portal vein with an intact normal vein not identified. Extensive tumor is also identified within the jeanine hepatis. Regulo Kinney MD Abdomen X-Ray 05/31/17 0000 Signed Impressions: Service Date/Time: Wednesday, May 31, 2017 11:46 - CONCLUSION: 1. Chuckie tube tip is projected over the antropyloric region with a balloon across the GE junction. Mild ileus. Alfonso Hernandez MD Objective Remarks GENERAL: Middle-aged male lying in bed, intubate, sedated, critically ill HEENT: Normocephalic. Atraumatic. Pupils equal, round, reactive, conjugate. Mucous membranes are moist. Rory Wong tube in place NECK: Trachea is midline. There is no JVD. CHEST: PRBC mode. Intubated, equal chest rise CARDIOVASCULAR: Normal rate, regular rhythm ABDOMEN: Soft, nontender, nondistended. No guarding. MUSCULOSKELETAL: Pulses 2+. No peripheral edema. NEUROLOGICAL: RASS -3. Drost pain. A/P Assessment and Plan Assessment: 56-year-old male with end-stage liver disease and active life threatening esophageal variceal hemorrhage. Given extensive hemorrhage and inability to regain control, this is a fatal event for this patient. In keeping with the patient's wishes as expressed through his parents and medical decision makers, we will pursue palliative withdraw care. Active problems: Hepatic encephalopathy Acute hypoxic and hypercarbic respiratory failure Hemorrhagic shock Anemia secondary to acute blood loss Coagulopathy secondary to end-stage liver disease Thrombus cytopenia secondary to end-stage liver disease Portal vein thrombosis Active and life-threatening esophageal variceal bleeding Massive hematemesis Plan: - comfort measures - stop transfusions - Terminal extubation. Martin Stinson MD Jun 01, 2017 19:26
[2017-06-01] MEDS: LORazepam 2 MG/ML VIAL IV PRN ×3 (19:33→22:53)
[2017-06-01] MEDS: MORPHINE SULFATE 4 MG/ML INJ IV PRN ×4 (19:34→23:09)
[2017-06-02] MEDS: LORazepam 2 MG/ML VIAL IV PRN ×8 (00:38→21:17)
[2017-06-02] MEDS: MORPHINE SULFATE 4 MG/ML INJ IV PRN ×8 (00:38→21:18)
[2017-06-02 07:15] VITALS: BP 72/40; PULSE 108; RESP 18; TEMP 100.5; O2SAT 65
[2017-06-02] MEDS ORDERED: SUCCINYLCHOLINE CHLORIDE 100 MG/5 ML SYRINGE IV PUSH ONE (12:00)
[2017-06-02] MEDS ORDERED: PROPOFOL 200 MG/20 ML AMP IV ONE (12:00)
[2017-06-02] MEDS ORDERED: LABETALOL HCL 100 MG/20 ML VIAL IV ONE (12:00)
[2017-06-02] MEDS ORDERED: MIDAZOLAM HCL 2 MG/2 ML VIAL IV ONE (12:00)
[2017-06-02] MEDS ORDERED: ROCURONIUM INJ 50 MG/5 ML SYRINGE IV PUSH ONE (12:00)
[2017-06-02] MEDS ORDERED: SODIUM CHLORIDE 0.9% 20 ML VIAL IV ONE (12:00)
--- NOTE | 2017-06-02 16:21 | HHI.CCPN ---
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 He was recently admitted the hospital in April with again recurrent life-threatening GI bleeds. At that time he was sent to [facility] in [place] for evaluation of possible TIPS procedure, however he was found to have significant portal vein thrombus with likely associated hepatocellular carcinoma. He was turned down as a candidate for transportation and tips. He was returned back to [facility] where he was discharged after a lengthy discussion with palliative care. At that time he wanted ongoing aggressive goals. He represents with one to 2 day history of hemoptysis it is progressively worse. He endorses vomiting up cupfuls of bright red blood. He has known grade 4 esophageal varices. He came in to the ER with hemoglobin around 7 and was emergently given 4 units of packed red blood cells. He also came in hypotensive. On my evaluation, the patient does appear to be in distress, quite pale, and fatigue. His hypotension is resolved on my evaluation. He was actively vomiting blood. He denies any other symptoms including chest pain, shortness of breath, fever, chills. Only endorses hemoptysis. I did talk to him at length about the fact that without the ability to anticoagulate his portal vein thrombus or tips or transplant candidate, we had no real medical solution for his recurrent life- threatening GI bleeds. At that point I told unlikely one of these GI bleeds is going to be fatal, and he expressed understanding of this, but requested to talk to his parents before making any decisions about hospice. He was taken emergently to endoscopy after my evaluation where it was found that he had active ongoing massive hemorrhage from esophageal varices. Attempts were made at banding, but he remained hypotensive in hemorrhagic shock. River drain was placed. He was taken to PACU where anesthesia placed large bore central venous access. I reevaluated the patient and the PACU and continued his ongoing resuscitative efforts. Discussions were ongoing between GI and interventional radiology, where the patient was felt not to be any candidate for any sort of endovascular intervention. He was taken to the surgical ICU, where we continued large-volume product administration. He developed hyperkalemia is resolved this, and oliguric acute kidney injury. His family arrived at bedside and we had a long discussion about what the patient would want, and the parents who were named previously his medical decision-maker's elected to make the patient DNR and pursue comfort measures and to stop blood transfusions and ongoing aggressive measures, since we had no other ability to stop the underlying hemorrhage. Subjective: 06/01: family requesting withdraw of care. will move forward with this. palliative care on board. agree with decision. 06/02: Active life support withdrawn. Patient appears comfortable. O2 sats in 60s. Dr. Cunningham attempting to transfer to Hospice. Objective Vital Signs Date Time Temp Pulse Resp B/P (MAP) Pulse Ox O2 Delivery O2 Flow Rate FiO2 06/02/17 07:15 100.5 108 18 72/40 (51) 65 06/01/17 15:12 Room Air 06/01/17 11:06 40 Result Diagram: 06/01/17 0341 06/01/17 0341 Imaging Last Impressions Chest X-Ray 05/31/17 0506 Signed Impressions: Service Date/Time: Wednesday, May 31, 2017 05:24 - CONCLUSION: Decreasing left medial lung base consolidation. Right lung remains clear. Raúl Greene MD Liver Ultrasound 05/31/17 0000 Signed Impressions: Service Date/Time: Wednesday, May 31, 2017 08:18 - CONCLUSION: 1. Echogenic liver compatible with fatty infiltration or hepatocellular disease. 2. Splenomegaly and ascites 3. No evidence of portal vein thrombosis Regulo Kinney MD ADDENDUM: COMPARISON: MRI ABDOMEN W & W/O CONTRAST, May 19, 2017, 11:16. When comparison this examination there are findings of cavernous transformation of the portal vein with an intact normal vein not identified. Extensive tumor is also identified within the jeanine hepatis. Regulo Kinney MD Abdomen X-Ray 05/31/17 0000 Signed Impressions: Service Date/Time: Wednesday, May 31, 2017 11:46 - CONCLUSION: 1. Chuckie tube tip is projected over the antropyloric region with a balloon across the GE junction. Mild ileus. Alfonso Hernandez MD Objective Remarks GENERAL: Middle-aged male lying in bed, on RA sats in 60s HEENT: Normocephalic. Atraumatic. NECK: Trachea is midline. There is no JVD. CHEST: Equal chest rise CARDIOVASCULAR: Normal rate, regular rhythm ABDOMEN: Soft, nontender, nondistended. NEUROLOGICAL: Somnolent, appears comfortable A/P Assessment and Plan Assessment: 56-year-old male with end-stage liver disease and active life threatening esophageal variceal hemorrhage. Given extensive hemorrhage and inability to regain control, this is a fatal event for this patient. In keeping with the patient's wishes as expressed through his parents and medical decision makers, we will pursue palliative withdraw care. Active problems: Hepatic encephalopathy Acute hypoxic and hypercarbic respiratory failure Hemorrhagic shock Anemia secondary to acute blood loss Coagulopathy secondary to end-stage liver disease Thrombus cytopenia secondary to end-stage liver disease Portal vein thrombosis Active and life-threatening esophageal variceal bleeding Massive hematemesis Plan: - Comfort measures, no further labs. Status post terminal extubation. Transfer to Hospice per Dr. Cunningham Level 1 Cory Olsen MD Jun 02, 2017 16:21
--- NOTE | 2017-06-02 21:19 | HHI.HCPN ---
Reason for visit a. To assist with evaluation and management of symptoms including: dyspnea; ascites; pain; encephalopathy b. To assist medical decision maker(s) with: better understanding of current medical conditions; weighing benefits/burdens of medical treatment options; making medical treatment decisions. . Subjective/Interval History Patient was compassionately withdrawn from life support on 06/01/17. Remains alive on room air today though 02 sats in 60s at times . Patient is on comfort measures only. Nurse reports that current comfort orders are managing pain and dyspnea. No active bleeding reported overnight. . Family/friend interactions No interactions with parents. . Advance Directives Living Will: Never completed Durable Power of Fundraising Assistant: Never completed Advance Directive Specifics Date completed: Health care surrogate designation completed on 05/17/17. . Health Care Surrogate(s): Ramya and/or Vance Arzola (parents) C: [phone] . Documented care wishes: No written documentation of health care goals/preferences. . Objective Vital Signs Date Time Temp Pulse Resp B/P (MAP) Pulse Ox O2 Delivery O2 Flow Rate FiO2 06/02/17 07:15 100.5 108 18 72/40 (51) 65 . Physical Exam CONSTITUTIONAL/GENERAL: This is an adequately nourished patient, unresposnive, in an SICU bed. No apparent distress. TUBES/LINES/DRAINS: lindquist catheter; peripheral IV; SKIN: No jaundice, rashes, or lesions. No wounds seen anteriorly. Skin temperature appropriate. Not diaphoretic. HEAD: Atraumatic. Normocephalic. EYES: Pupils equal and round. Unable to evaluate EOMs. No scleral icterus. No injection or drainage. Fundi not examined. ENT: Unable to evaluate hearing. Nose without bleeding or purulent drainage. Throat without visible erythema, exudates, masses, or lesions. NECK: Trachea midline. CARDIOVASCULAR: Regular rate and rhythm without murmurs, gallops, or rubs. No JVD. Peripheral pulses symmetric. RESPIRATORY/CHEST: Symmetric, unlabored, shallow respirations. Clear to auscultation. Breath sounds equal bilaterally. No wheezes, rales, or rhonchi. GASTROINTESTINAL: ABdomen distended, moderately firm. Unable to palpate organomegaly/masses secondary to distension. No guarding. Bowel sounds present. GENITOURINARY: Without palpable bladder distension. Lindquist catheter in place. MUSCULOSKELETAL: Extremities without clubbing, cyanosis, or edema. No mottling . LYMPHATICS: Not examined. NEUROLOGICAL: Does not arouse to voice/commands. Does not withdraw to noxious stimulus. PSYCHIATRIC: Unable to assess due to level of responsiveness. . Diagnostic Tests Laboratory Laboratory Tests Test 05/31/17 05:06 05/31/17 05:59 05/31/17 11:10 05/31/17 12:10 White Blood Count 7.8 TH/MM3 (4.0-11.0) 8.9 TH/MM3 (4.0-11.0) Red Blood Count 2.35 MIL/MM3 (4.50-5.90) 2.73 MIL/MM3 (4.50-5.90) Hemoglobin 7.3 GM/DL (13.0-17.0) 8.3 GM/DL (13.0-17.0) Bedside Hemoglobin 8.2 G/DL (12.0-17.0) Hematocrit 22.9 % (39.0-51.0) 24.9 % (39.0-51.0) Bedside Hematocrit 24.0 % (38.0-51.0) Mean Corpuscular Volume 97.7 FL (80.0-100.0) 91.1 FL (80.0-100.0) Mean Corpuscular Hemoglobin 31.0 PG (27.0-34.0) 30.5 PG (27.0-34.0) Mean Corpuscular Hemoglobin Concent 31.7 % (32.0-36.0) 33.5 % (32.0-36.0) Red Cell Distribution Width 19.0 % (11.6-17.2) 18.0 % (11.6-17.2) Platelet Count 185 TH/MM3 (150-450) 163 TH/MM3 (150-450) Mean Platelet Volume 11.1 FL (7.0-11.0) 10.4 FL (7.0-11.0) Neutrophils (%) (Auto) 62.9 % (16.0-70.0) 83.0 % (16.0-70.0) Lymphocytes (%) (Auto) 25.7 % (9.0-44.0) 9.5 % (9.0-44.0) Monocytes (%) (Auto) 7.5 % (0.0-8.0) 5.9 % (0.0-8.0) Eosinophils (%) (Auto) 2.4 % (0.0-4.0) 1.0 % (0.0-4.0) Basophils (%) (Auto) 1.5 % (0.0-2.0) 0.6 % (0.0-2.0) Neutrophils # (Auto) 4.9 TH/MM3 (1.8-7.7) 7.4 TH/MM3 (1.8-7.7) Lymphocytes # (Auto) 2.0 TH/MM3 (1.0-4.8) 0.8 TH/MM3 (1.0-4.8) Monocytes # (Auto) 0.6 TH/MM3 (0-0.9) 0.5 TH/MM3 (0-0.9) Eosinophils # (Auto) 0.2 TH/MM3 (0-0.4) 0.1 TH/MM3 (0-0.4) Basophils # (Auto) 0.1 TH/MM3 (0-0.2) 0.1 TH/MM3 (0-0.2) CBC Comment DIFF FINAL DIFF FINAL Differential Comment Bedside Sodium 138 MMOL/L (138-146) Bedside Potassium 5.0 MMOL/L (3.5-4.9) Bedside Chloride 102 MMOL/L (98-109) Bedside Blood Urea Nitrogen 16 MG/DL (8-26) Bedside Creatinine 0.9 MG/DL (0.8-1.3) Bedside Glucose 401 MG/DL (60-95) Prothrombin Time 15.2 SEC (9.8-11.6) 14.8 SEC (9.8-11.6) Prothromb Time International Ratio 1.4 RATIO 1.3 RATIO Activated Partial Thromboplast Time 30.5 SEC (24.3-30.1) Magnesium Level 1.2 MG/DL (1.5-2.5) Total Creatine Kinase 38 U/L (39-308) 49 U/L (39-308) Troponin I 0.02 NG/ML (0.02-0.05) 0.02 NG/ML (0.02-0.05) B-Type Natriuretic Peptide 421 PG/ML (0-100) Ammonia 227 MCMOL/L (11-32) Blood Gas Puncture Site ART LINE Blood Gas Patient Temperature 98.6 Blood Gas HCO3 24 mmol/L (22-26) Blood Gas Base Excess -0.7 mmol/L (-2-2) Blood Gas Oxygen Saturation 96 % (90-100) Arterial Blood pH 7.38 (7.380-7.420) Arterial Blood Partial Pressure CO2 41 mmHg (38-42) Arterial Blood Partial Pressure O2 185 mmHg (61-120) Arterial Blood Oxygen Content 12.3 Vol % (12.0-20.0) Arterial Blood Carboxyhemoglobin 2.6 % (0-4) Arterial Blood Methemoglobin 1.0 % (0-2) Blood Gas Hemoglobin 8.8 G/DL (12.0-16.0) Oxygen Delivery Device VENTILATOR Blood Gas Ventilator Setting PRVC/AC Blood Gas Inspired Oxygen 50 % Test 05/31/17 12:35 05/31/17 14:53 05/31/17 22:00 06/01/17 03:41 Urine Color YELLOW (YELLW/STRAW) Urine Turbidity CLEAR (CLEAR) Urine pH 5.5 (5.0-8.5) Urine Specific [place] 1.020 (1.002-1.035) Urine Protein TRACE mg/dL (NEG-TRACE) Urine Glucose (UA) 1000 mg/dL (NEG) Urine Ketones NEG mg/dL (NEG) Urine Occult Blood NEG (NEG) Urine Nitrite NEG (NEG) Urine Bilirubin NEG (NEG) Urine Urobilinogen LESS THAN 2.0 MG/DL (LESS Urine Leukocyte Esterase NEG (NEG) Urine RBC 1 /hpf (0-3) Urine WBC 1 /hpf (0-5) Urine Bacteria RARE /hpf (NONE) Urine Hyaline Casts 13 /lpf (RARE) Urine Mucus FEW /lpf (OCC) Microscopic Urinalysis Comment CULT NOT INDICATED Blood Urea Nitrogen 22 MG/DL (7-18) 26 MG/DL (7-18) Creatinine 0.95 MG/DL (0.60-1.30) 0.68 MG/DL (0.60-1.30) Random Glucose 372 MG/DL (74-106) 143 MG/DL (74-106) Total Protein 6.1 GM/DL (6.4-8.2) 5.8 GM/DL (6.4-8.2) Albumin 2.6 GM/DL (3.4-5.0) 2.6 GM/DL (3.4-5.0) Calcium Level 7.3 MG/DL (8.5-10.1) 6.9 MG/DL (8.5-10.1) Alkaline Phosphatase 86 U/L (45-117) 95 U/L (45-117) Aspartate Amino Transf (AST/SGOT) 87 U/L (15-37) 849 U/L (15-37) Alanine Aminotransferase (ALT/SGPT) 50 U/L (12-78) 257 U/L (12-78) Total Bilirubin 3.1 MG/DL (0.2-1.0) 1.4 MG/DL (0.2-1.0) Sodium Level 136 MEQ/L (136-145) 143 MEQ/L (136-145) Potassium Level 6.9 MEQ/L (3.5-5.1) 4.3 MEQ/L (3.5-5.1) Chloride Level 104 MEQ/L (98-107) 110 MEQ/L (98-107) Carbon Dioxide Level 25.0 MEQ/L (21.0-32.0) 28.3 MEQ/L (21.0-32.0) Anion Gap 7 MEQ/L (5-15) 5 MEQ/L (5-15) Estimat Glomerular Filtration Rate 82 ML/MIN (>89) 120 ML/MIN (>89) Protein Corrected Calcium 7.8 MG/DL (8.5-10.1) 7.6 MG/DL (8.5-10.1) Hemoglobin 9.4 GM/DL (13.0-17.0) 8.4 GM/DL (13.0-17.0) 7.9 GM/DL (13.0-17.0) Hematocrit 27.4 % (39.0-51.0) 24.2 % (39.0-51.0) 23.0 % (39.0-51.0) White Blood Count 7.8 TH/MM3 (4.0-11.0) Red Blood Count 2.67 MIL/MM3 (4.50-5.90) Mean Corpuscular Volume 86.1 FL (80.0-100.0) Mean Corpuscular Hemoglobin 29.7 PG (27.0-34.0) Mean Corpuscular Hemoglobin Concent 34.5 % (32.0-36.0) Red Cell Distribution Width 19.6 % (11.6-17.2) Platelet Count 79 TH/MM3 (150-450) Mean Platelet Volume 9.4 FL (7.0-11.0) Neutrophils (%) (Auto) 82.6 % (16.0-70.0) Lymphocytes (%) (Auto) 8.7 % (9.0-44.0) Monocytes (%) (Auto) 6.7 % (0.0-8.0) Eosinophils (%) (Auto) 1.5 % (0.0-4.0) Basophils (%) (Auto) 0.5 % (0.0-2.0) Neutrophils # (Auto) 6.4 TH/MM3 (1.8-7.7) Lymphocytes # (Auto) 0.7 TH/MM3 (1.0-4.8) Monocytes # (Auto) 0.5 TH/MM3 (0-0.9) Eosinophils # (Auto) 0.1 TH/MM3 (0-0.4) Basophils # (Auto) 0.0 TH/MM3 (0-0.2) CBC Comment AUTO DIFF Differential Total Cells Counted 100 Neutrophils % (Manual) 86 % (16-70) Band Neutrophils % 7 % (0-6) Lymphocytes % 5 % (9-44) Monocytes % 1 % (0-8) Eosinophils % 1 % (0-4) Neutrophils # (Manual) 7.3 TH/MM3 (1.8-7.7) Differential Comment FINAL DIFF MANUAL Platelet Estimate LOW (NORMAL) Platelet Morphology Comment NORMAL (NORMAL) Basophilic Stippling FAINT (NORMAL) Phosphorus Level 2.9 MG/DL (2.5-4.9) Magnesium Level 1.5 MG/DL (1.5-2.5) Test 06/02/17 19:04 Lab Scanned Report Lab Reports - Other [id number] Result Diagram: 06/01/17 0341 06/01/17 0341 Imaging Last Impressions Chest X-Ray 05/31/17 0506 Signed Impressions: Service Date/Time: Wednesday, May 31, 2017 05:24 - CONCLUSION: Decreasing left medial lung base consolidation. Right lung remains clear. Raúl Greene MD Liver Ultrasound 05/31/17 0000 Signed Impressions: Service Date/Time: Wednesday, May 31, 2017 08:18 - CONCLUSION: 1. Echogenic liver compatible with fatty infiltration or hepatocellular disease. 2. Splenomegaly and ascites 3. No evidence of portal vein thrombosis Regulo Kinney MD ADDENDUM: COMPARISON: MRI ABDOMEN W & W/O CONTRAST, May 19, 2017, 11:16. When comparison this examination there are findings of cavernous transformation of the portal vein with an intact normal vein not identified. Extensive tumor is also identified within the jeanine hepatis. Regulo Kinney MD Abdomen X-Ray 05/31/17 0000 Signed Impressions: Service Date/Time: Wednesday, May 31, 2017 11:46 - CONCLUSION: 1. Chuckie tube tip is projected over the antropyloric region with a balloon across the GE junction. Mild ileus. Alfonso Hernandez MD . Procedures * EGD with River tube placement 05/31/17 * Left subclavian line placement * Intubation/mechanical ventilation 05/31/17 * Right radial arterial line placement. . Assessment and Plan Disease Oriented Problem List: (1) GI bleed (2) Esophageal varices Comment: With recurrent bleeding. . (3) Portal hypertensive gastropathy Comment: Not a candidate for TIPS or transplant. . (4) Hepatitis C (5) Liver cirrhosis (6) Ascites (7) Anemia requiring transfusions (8) Portal vein thrombosis (9) Diabetes mellitus with neuropathy (10) STEMI (ST elevation myocardial infarction) Comment: Reportedly had positive EKG changes during EGD of 05/31/17 . Symptom Scale: (1) Pain 0-10 Scale: Unable to quantify Comment: Patient is normally on prn hydrocodone at home. Most of his pain is reported to be neuroapthic pain from his diabetes and manifests by pain shooting down both lower extremities Current sources of pain could be due to multiple other factors including prolonged bedbound status; River tube; orotracheal intubation; SCDs ; lindquist catheter; etc. . (2) Dyspnea 0-10 Scale: Unable to quantify Comment: Patient was compassionately withdrawn from life support on 06/01/17. Dyspnea now adequately controlled with opiates and benzos. . . (3) Encephalopathy 0-10 Scale: Unable to quantify Comment: Has history of hepatic encephalopathy. Antiicpate this would be exacerbated by GI bleeding and would be noted if sedation were decreased. No reason to lower sedation at this time. . Pertinent Non-Medical Issues Psychosocial: Patient is relatively isolated. Parents live locally. Has a son who lives out of state. Spiritual: Very important part of his life. Reads the bible regularly. "Born again" per parents. Parents would like a yard hostler to visit and say prayers for him Legal: No living will. Health care surrogate designation is scanned into EMR. Ethical issues impacting care: Patient is incapacitated and will probably not regain capacity. . Important Contacts Vance and Ramya Arzola, parents/[facility]; C: [phone] . Prognosis Prognosis is bleak. 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 He has had recurrent esophageal bleeding and is now acutely bleeding. He had an apparent cardiac event in EGD on 05/31/17 He is not a candidate for cardiac catheterization. He is not a candidate for TIPS or for transplantation. He is requiring recurrent transfusions of blood products. Patient has been compassionately withdrawn from life support and has transitioned to "comfort measures only." . Code Status: No Code Plan == Code Status: Parents (the health care surrogates) have agreed to NO CODE given patient's prognosis. == Decision makers: Patient is unable to make his own health care decisions and will not regain capacity at this point. The patient had designated both of his parents as health care surrogates. == Goals of medical treatment: Patients have had us compassionately withdraw life support and transtion care to "comfort measures only." == Symptoms: * Pain: Most of his pain is reported to be neuropathic pain from his diabetes and manifests by pain shooting down both lower extremities Current pain could be due to multiple other factors including prolonged bedbound status; River tube; orotracheal intubation; SCDs ; lindquist catheter; etc. Patient has iv morphine order in place. Also on propofol at this time. There is an order for a fentanyl drip if needed. No further recommendations at this time. * Nausea/vomiting: This is secondary to his GI bleeding. This will be resolved only when bleeding is controlled. River tube is currently in place. Will leave tube there to minimize bleeding and prevent hematemesis which would be upsetting to visiting family. Protonix and octreotide to continue * Ascites:Moot at this point. Not receiving artifical nutrition/hydration. * Encephalopathy: Now unreponsive. * Dyspnea: Off ventilator. Dyspnea controlled by current comfort med orders. == Pharmacy Operations Coordinator has visited. == I have spoken with hospice nurse. If parents agree , will enroll patient in hospice and transfer to a hospice care center . Have made recommendations for care center orders. == Anticipate within 24 to 48 hours. . Attestation To help prompt me to consider important information that might be impacting today's encounter and assessment, information from prior notes written by myself or my colleagues may have been "brought forward" into today's note. My signature on this note, however, is an attestation that I personally performed the exam, history, and/or decision-making noted today, and, unless otherwise indicated, the interactions with patient, family, and staff as well as the review of records all occurred today. I also attest that the listed assessment and stated plan reflect my best clinical judgment today based on the combination of historical information, prior notes, and today's exam/ interactions. When time spent is documented, it refers only to time spent today by the signer, or if indicated, combined time spent today by collaborating physician/nurse practitioner. Mega Cunningham MD Jun 02, 2017 21:19
--- NOTE | 2017-06-09 15:33 | HHI.DS ---
Discharge Summary Admission Date May 31, 2017 at 05:38 Admitting Diagnosis GI Bleed (1) Variceal bleeding Diagnosis: Principal (2) Hemorrhagic shock Diagnosis: Principal (3) Severe anemia ICD Code: D64.9 - Anemia, unspecified Diagnosis: Principal (4) Acute hypoxemica and hypercarbic respiratory failure Diagnosis: Principal (5) Anemia requiring transfusions ICD Code: D64.9 - Anemia, unspecified Diagnosis: Principal Status: Acute (6) Portal hypertensive gastropathy ICD Code: K31.89 - Other diseases of stomach and duodenum Diagnosis: Principal Status: Acute (7) Hepatitis C ICD Code: B19.20 - Unspecified viral hepatitis C without hepatic coma Diagnosis: Secondary Status: Chronic (8) Liver cirrhosis ICD Code: K74.60 - Unspecified cirrhosis of liver Diagnosis: Secondary Status: Chronic (9) Ascites ICD Code: R18.8 - Other ascites Diagnosis: Secondary Status: Chronic (10) Portal vein thrombosis ICD Code: I81 - Portal vein thrombosis Diagnosis: Secondary Status: Chronic (11) Esophageal varices ICD Code: I85.00 - Esophageal varices without bleeding Diagnosis: Secondary Status: Chronic (12) Hepatocellular carcinoma ICD Code: C22.0 - Liver cell carcinoma Status: Chronic Brief History This is a 56-year-old male with end-stage liver disease who is well-known the [employer] for recurrent life-threatening GI bleeds. He was recently admitted the hospital in April with again recurrent life-threatening GI bleeds. At that time he was sent to [facility] [place] for evaluation of possible TIPS procedure, however he was found to have significant portal vein thrombus with likely associated hepatocellular carcinoma. He was turned down as a candidate for transportation and tips. He was returned back to [place] where he was discharged after a lengthy discussion with palliative care. At that time he wanted ongoing aggressive goals. He represents with one to 2 day history of hemoptysis it is progressively worse. He endorses vomiting up cupfuls of bright red blood. He has known grade 4 esophageal varices. He came in to the ER with hemoglobin around 7 and was emergently given 4 units of packed red blood cells. He also came in hypotensive. On my evaluation, the patient does appear to be in distress, quite pale, and fatigue. His hypotension is resolved on my evaluation. He was actively vomiting blood. He denies any other symptoms including chest pain, shortness of breath, fever, chills. Only endorses hemoptysis. I did talk to him at length about the fact that without the ability to anticoagulate his portal vein thrombus or tips or transplant candidate, we had no real medical solution for his recurrent life- threatening GI bleeds. At that point I told unlikely one of these GI bleeds is going to be fatal, and he expressed understanding of this, but requested to talk to his parents before making any decisions about hospice. He was taken emergently to endoscopy after my evaluation where it was found that he had active ongoing massive hemorrhage from esophageal varices. Attempts were made at banding, but he remained hypotensive in hemorrhagic shock. River drain was placed. He was taken to PACU where anesthesia placed large bore central venous access. I reevaluated the patient and the PACU and continued his ongoing resuscitative efforts. Discussions were ongoing between GI and interventional radiology, where the patient was felt not to be any candidate for any sort of endovascular intervention. He was taken to the surgical ICU, where we continued large-volume product administration. He developed hyperkalemia is resolved this, and oliguric acute kidney injury. His family arrived at bedside and we had a long discussion about what the patient would want, and the parents who were named previously his medical decision-maker's elected to make the patient DNR and pursue comfort measures and to stop blood transfusions and ongoing aggressive measures, since we had no other ability to stop the underlying hemorrhage. Imaging Chest x-ray left lung consolidation Ultrasound of the liver shows liver cirrhosis ascites and splenomegaly PE at Discharge GENERAL: Middle-aged male lying in bed, on RA sats in 60s HEENT: Normocephalic. Atraumatic. NECK: Trachea is midline. There is no JVD. CHEST: Equal chest rise CARDIOVASCULAR: Normal rate, regular rhythm ABDOMEN: Soft, nontender, nondistended. NEUROLOGICAL: Somnolent, appears comfortable Hospital Course Hospital Course: This is a 56-year-old male with end-stage liver disease who is well-known the [employer] for recurrent life-threatening GI bleeds. He was recently admitted the hospital in April with again recurrent life-threatening GI bleeds. At that time he was sent to [facility] [place] for evaluation of possible TIPS procedure, however he was found to have significant portal vein thrombus with likely associated hepatocellular carcinoma. He was turned down as a candidate for transportation and tips. He was returned back to [place] where he was discharged after a lengthy discussion with palliative care. At that time he wanted ongoing aggressive goals. He represents with one to 2 day history of hemoptysis it is progressively worse. He endorses vomiting up cupfuls of bright red blood. He has known grade 4 esophageal varices. He came in to the ER with hemoglobin around 7 and was emergently given 4 units of packed red blood cells. He also came in hypotensive. On my evaluation, the patient does appear to be in distress, quite pale, and fatigue. His hypotension is resolved on my evaluation. He was actively vomiting blood. He denies any other symptoms including chest pain, shortness of breath, fever, chills. Only endorses hemoptysis. I did talk to him at length about the fact that without the ability to anticoagulate his portal vein thrombus or tips or transplant candidate, we had no real medical solution for his recurrent life- threatening GI bleeds. At that point I told unlikely one of these GI bleeds is going to be fatal, and he expressed understanding of this, but requested to talk to his parents before making any decisions about hospice. He was taken emergently to endoscopy after my evaluation where it was found that he had active ongoing massive hemorrhage from esophageal varices. Attempts were made at banding, but he remained hypotensive in hemorrhagic shock. River drain was placed. He was taken to PACU where anesthesia placed large bore central venous access. I reevaluated the patient and the PACU and continued his ongoing resuscitative efforts. Discussions were ongoing between GI and interventional radiology, where the patient was felt not to be any candidate for any sort of endovascular intervention. He was taken to the surgical ICU, where we continued large-volume product administration. He developed hyperkalemia is resolved this, and oliguric acute kidney injury. His family arrived at bedside and we had a long discussion about what the patient would want, and the parents who were named previously his medical decision-maker's elected to make the patient DNR and pursue comfort measures and to stop blood transfusions and ongoing aggressive measures, since we had no other ability to stop the underlying hemorrhage. 06/01: family requesting withdraw of care. will move forward with this. palliative care on board. agree with decision. Life support was withdrawn 06/02: Patient appears comfortable. O2 sats in 60s. Dr. Cunningham arranged for transfer Hospice and patient was sent to hospice deteriorating condition Pt Condition on Discharge: Deteriorating Discharge Disposition: Hospice/Med Facility Discharge Instructions DIET: Follow Instructions for: As Tolerated, No Restrictions Activities you can perform: Regular-No Restrictions Cory Olsen MD Jun 09, 2017 15:33
== END 2017-06-02 21:26 | disposition hospice, inpatient (51) | DRG 441 ==
LOC: NEPE 04:58 → NEDA 05:38 → N03B 07:45
PROVIDERS: ADMIT Internal Medicine Critical Care Medicine; ATTEND Internal Medicine Critical Care Medicine
PROC: 5A1935Z Respiratory Ventilation, Less than 24 Consecutive Hours (ICD-10-PCS; 2017-05-31)
PROC: 0W3P8ZZ Control Bleeding in Gastrointestinal Tract, Via Natural or Artificial Opening Endoscopic (ICD-10-PCS; 2017-05-31)
PROC: 30233R1 Transfusion of Nonautologous Platelets into Peripheral Vein, Percutaneous Approach (ICD-10-PCS; 2017-05-31)
PROC: 30233L1 Transfusion of Nonautologous Fresh Plasma into Peripheral Vein, Percutaneous Approach (ICD-10-PCS; 2017-05-31)
PROC: 0BH17EZ Insertion of Endotracheal Airway into Trachea, Via Natural or Artificial Opening (ICD-10-PCS; 2017-05-31)
PROC: 06L38CZ Occlusion of Esophageal Vein with Extraluminal Device, Via Natural or Artificial Opening Endoscopic (ICD-10-PCS; 2017-05-31)
PROC: 30233N1 Transfusion of Nonautologous Red Blood Cells into Peripheral Vein, Percutaneous Approach (ICD-10-PCS; principal; 2017-05-31 09:29)
DX: K76.6 Portal hypertension (principal); I85.11 Secondary esophageal varices with bleeding; I21.3 ST elevation (STEMI) myocardial infarction of unspecified site; R57.8 Other shock; K22.11 Ulcer of esophagus with bleeding; L89.159 Pressure ulcer of sacral region, unspecified stage; I81 Portal vein thrombosis; J96.01 Acute respiratory failure with hypoxia; J96.02 Acute respiratory failure with hypercapnia; D62 Acute posthemorrhagic anemia; N17.9 Acute kidney failure, unspecified; C22.0 Liver cell carcinoma; D68.4 Acquired coagulation factor deficiency; K70.31 Alcoholic cirrhosis of liver with ascites; D69.59 Other secondary thrombocytopenia; E11.42 Type 2 diabetes mellitus with diabetic polyneuropathy; K72.90 Hepatic failure, unspecified without coma; E78.5 Hyperlipidemia, unspecified; B19.20 Unspecified viral hepatitis C without hepatic coma; I10 Essential (primary) hypertension; Z79.84 Long term (current) use of oral hypoglycemic drugs; Z66 Do not resuscitate; Z51.5 Encounter for palliative care; F17.210 Nicotine dependence, cigarettes, uncomplicated; M19.90 Unspecified osteoarthritis, unspecified site; N40.0 Benign prostatic hyperplasia without lower urinary tract symptoms; F10.21 Alcohol dependence, in remission; E87.5 Hyperkalemia
CPT/HCPCS: 36430; 36556; 71010; 74000; 76705; 80053; 81001; 82140; 82435; 82550; 82565; 82805; 82947; 82948; 83735; 83880; 84100; 84132; 84295; 84484; 84520; 85007; 85014; 85018; 85025; 85027; 85610; 85730; 86850; 86900; 86901; 86920; 86927; 94002; 94003; 94667; 96374; 96375; C9113; J0171; J0330; J0696; J1980; J2060; J2250; J2270; J2354; J2405; J7030; J7040; J7050; P9016; P9017; P9035